=== PATIENT | male | born 1960 | race Hispanic/Latino ===

== ENCOUNTER 2016-05-22 14:00 | Inpatient (IN) | payer MEDICARE, OTHER ==
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
[2016-05-22] MEDS: Albuterol-Ipratrop 3 mg / 0.5 (3 ml) UD IH SCH ×3 (14:30→15:43)
--- NOTE | 2016-05-22 14:58 | RAD ---
HISTORY: cough COMPARISON: 05/11/2016 FINDINGS: LUNGS: No active pulmonary disease. PLEURA: Small pleural effusions CARDIOVASCULAR: Moderate to severe cardiomegaly. Mild vascular congestion OSSEOUS STRUCTURES: No significant abnormalities. VISUALIZED UPPER ABDOMEN: Normal. OTHER FINDINGS: None. IMPRESSION: Severe cardiomegaly. Mild vascular congestion
[2016-05-22 15:07] LABS: ADD MANUAL DIFF? NO
[2016-05-22 15:13] LABS: BASO # 0.03 K/mm3 (0.0-2.0); BASO % 0.3 % (0.0-3.0); EOS # 0.1 (0.0-0.7); EOS % 0.8 % (1.5-5.0); GRAN # 7.16 (1.4-6.5); GRAN % 76.1 % (50.0-68.0); HEMATOCRIT 40.4 % (42.0-52.0); LYMPH # 1.6 (1.2-3.4); LYMPH % 17.1 % (22.0-35.0); MEAN CELL VOLUME 87.8 fL (80.0-105.0); MEAN CORPUSCULAR HEMOGLOBIN 28.7 pg (25.0-35.0); MEAN CORPUSCULAR HGB CONC 32.7 g/dl (31.0-37.0); MEAN PLATELET VOLUME 10.6 fl (7.0-11.0); MONO # 0.5 (0.1-0.6); MONO % 5.7 % (1.0-6.0); PLATELET COUNT 186 10^3/uL (120.0-450.0); RED CELL DISTRIBUTION WIDTH 14.5 % (11.5-14.5); WHITE BLOOD COUNT 9.4 10^3/ul (4.5-11.0)
[2016-05-22 15:22] LABS: ALB/GLOB RATIO 1.3 (1.1-1.8); ALKALINE PHOSPHATASE 71 U/L (38-133); ALT/SGPT 21 U/L (7-56); AST/SGOT 15 U/L (15-59); BILIRUBIN,TOTAL 0.9 mg/dL (0.2-1.3); BLOOD UREA NITROGEN 12 mg/dL (7-21); CALCIUM 8.6 mg/dL (8.4-10.5); CARBON DIOXIDE 29 mmol/L (21-33); CHLORIDE 102 mmol/L (98-107); GFR AFRICAN-AMERICAN > 60; GLUCOSE,RANDOM 260 mg/dL (70-110); POTASSIUM 3.8 mmol/L (3.6-5.0); SODIUM 139 mmol/L (132-148); TOTAL PROTEIN 6.1 g/dL (5.8-8.3)
[2016-05-22 15:24] LABS: INR 1.24 (0.93-1.08); PARTIAL THROMBOPLASTIN TIME 25.2 Seconds (23.7-30.8)
[2016-05-22 15:33] LABS: TROPONIN I 0.06 ng/mL
[2016-05-22 15:58] LABS: URINE BILIRUBIN NEGATIVE (NEGATIVE); URINE BLOOD NEGATIVE (NEGATIVE); URINE GLUCOSE (UA) 100 mg/dL (NEGATIVE); URINE KETONE NEGATIVE (NEGATIVE); URINE LEUKOCYTE ESTERASE NEGATIVE Leu/uL (NEGATIVE); URINE PROTEIN 30 mg/dL (<30 mg/dL); URINE UROBILINOGEN 0.2 E.U./dL (<1 E.U./dL)
[2016-05-22 16:00] LABS: URINE APPEARANCE CLEAR (CLEAR); URINE COLOR YELLOW (YELLOW)
[2016-05-22 16:08] LABS: URINE BACTERIA FEW (NEG); URINE EPITHELIAL CELLS 0 - 2 /hpf (0-5); URINE RBC 0 - 2 /hpf (0-2); URINE WBC 0 - 2 /hpf (0-6)
--- NOTE | 2016-05-22 17:22 | CARD ---
APPROVED REPORT EKG Measurement Heart [id number] <Conclusion> Atrial fibrillation with rapid ventricular response with premature ventricular or aberrantly conducted complexes Low voltage QRS Nonspecific T wave abnormality, probably digitalis effect Abnormal ECG
[2016-05-22] MEDS ORDERED: metOLazone 5 MG TAB PO ONE (19:12)
[2016-05-22] MEDS: Insulin Reg-HIGH-Coverage SC SCH (21:37)
[2016-05-22 22:42] VITALS: BMI 45.6
[2016-05-22] MEDS ORDERED: Pneumococcal 23-Valent Vaccine IM ONE (22:42)
[2016-05-22] MEDS ORDERED: Influenza Vaccine 45 MCG/0.5 ml IM ONE (22:42)
--- NOTE | 2016-05-22 23:32 | CP.PCM.PN ---
Subjective - Date & Time of Evaluation Date of Evaluation: 05/22/16 Time of Evaluation: 23:32 - Subjective Subjective: Patient was seen because of his complaint of sob.Also had numbness in right hand fingers. Pulse ox was 99% on 3L/min. Has no other complaints. Has received 120 mg of lasix. No other complaints. Denies chest pain, sweating, nausea, palpitation. This 55 year old white male was admitted with Has PMH of CHF,COPD, morbid obesity,dyslipidemia,DM II ,diabetic neuropathy,HTN, atrial fibrillation. CXT:Pulm edema. Objective - Vital Signs/Intake and Output Vital Signs (last 24 hours): Temp Pulse Resp BP Pulse Ox 97.6 F 127 H 16 143/98 H 100 05/22/16 22:26 05/22/16 22:26 05/22/16 22:26 05/22/16 22:26 05/22/16 20:20 - Medications Medications: Current Medications Atorvastatin Calcium (Lipitor) 40 mg PO DIN WILTON Bupropion HCl (Wellbutrin) 75 mg PO BID WILTON Digoxin (Lanoxin) 0.125 mg PO 1400 WILTON Furosemide (Lasix) 80 mg IVP BID WILTON Glimepiride (Amaryl) 4 mg PO DAILY [facility] Insulin Detemir (Levemir) 50 unit SC BID [facility] Insulin Human Regular (Humulin R High) 0 units SC ACHS [facility] PRN Reason: Protocol Last Admin: 05/22/16 21:37 Dose: Not Given Lisinopril (Zestril) 20 mg PO DAILY [facility] Lorazepam (Ativan) 2 mg PO AMHS [facility] PRN Reason: Protocol Last Admin: 05/22/16 22:52 Dose: 2 mg Metoprolol Tartrate (Lopressor) 25 mg PO BID [facility] Last Admin: 05/22/16 19:55 Dose: 25 mg Montelukast Sodium (Singulair) 10 mg PO DAILY W[facility] Trazodone HCl (Desyrel) 200 mg PO HS [facility] Last Admin: 05/22/16 22:53 Dose: 200 mg Verapamil HCl (Calan Tab) 160 mg PO TID WIL[facility] Warfarin Sodium (Coumadin) 7.5 mg PO 1800 [facility] PRN Reason: Protocol - Labs Labs: PT 13.4 Seconds (9.9-11.8) H 05/22/16 15:00 INR 1.24 (0.93-1.08) H 05/22/16 15:00 APTT 25.2 Seconds (23.7-30.8) 05/22/16 15:00 - Constitutional Appears: Well, No Acute Distress - Head Exam Head Exam: ATRAUMATIC, NORMAL INSPECTION - Eye Exam Eye Exam: Normal appearance Pupil Exam: NORMAL ACCOMODATION - ENT Exam ENT Exam: Mucous Membranes Moist - Neck Exam Neck Exam: Normal Inspection. absent: Thyromegaly - Respiratory Exam Respiratory Exam: Rales (Bilateral basal scattered.), Wheezes (+), NORMAL BREATHING PATTERN - Cardiovascular Exam Cardiovascular Exam: REGULAR RHYTHM. absent: JVD - GI/Abdominal Exam GI & Abdominal Exam: absent: Distended - Rectal Exam Rectal Exam: Deferred - Extremities Exam Extremities Exam: Normal Inspection. absent: Pedal Edema - Back Exam Back Exam: NORMAL INSPECTION - Neurological Exam Neurological Exam: Alert, Oriented x3 - Psychiatric Exam Psychiatric exam: Normal Affect, Normal Mood - Skin Skin Exam: Normal Color Assessment and Plan - Assessment and Plan (Free Text) Assessment: A/P: Dyspnea. CHF. COPD. HTN. Morbid obesity. DM II. Lasix 80 mg IV x 1. Monitor.
[2016-05-23] MEDS ORDERED: Morphine 4 mg/ml ISec IVP STA (00:08)
--- NOTE | 2016-05-23 06:20 | HP ---
CHIEF COMPLAINT AND HISTORY OF PRESENT ILLNESS: This is a 55-year-old male who is coming into the hospital with complaints of shortness of breath. Audrey painter was recently discharged from the hospital about a week and a half ago. He has a history of CHF, [place] PD. He is morbidly obese. He has atrial fibrillation that at times is not well controlled. He does have a history of noncompliance. He said the shortness of breath is ongoing. He does have palpitat ions. He says he has been compliant with his medications. He denies any fevers or chills. No nause a, no vomiting, no chest pain, no abdominal pain, no back pain, no dysuria or frequency. REVIEW OF SYSTEMS: All other review of symptoms are within normal limits. He mostly complains about chest pain, shortne ss of breath, especially on exertion. ALLERGIES: BERRIES. HOME MEDICATIONS: He is on digoxin, Singulair, Levemir, Zestril, Advil, Dulera. PAST MEDICAL HISTORY: 1. CHF secondary to diastolic dysfunction. 2. Dyslipidemia. 3. Chronic obstructive pulmonary disease. 4. Hypertension. 5. Diabetes type 2. 6. Diabetic neuropathy. 7. Atrial fibrillation, on anticoagulation. 8. Diabetic neuropathy. PAST SURGICAL HISTORY: Cardiac catheterization, no stents. FAMILY HISTORY: Father of liver disease at 66, mother at 42. SOCIAL HISTORY: He quit smoking about 4 years ago. He was smoking for 20 years. He denies alcohol or substance abus e. PHYSICAL EXAMINATION: VITAL SIGNS: He has a temperature of 97.6, pulse is 120, blood pressure is 114/75, respirations 16, O2 saturation 97%. Height is 5 feet 8 inches, weight is 300 pounds, BMI is 45.6. GENERAL: Patient lying in bed, flat, and in no apparent distress. HEAD AND NECK EXAM: Atraumatic, normocephalic. Conjunctivae are pink. Throat clear and mouth with moist mucosa. Oropharynx benign. EYES: Extraocular movements are intact. PERRLA. NECK: Supple. No JVD, thyromegaly, or adenopathy. No bruits. HEART: S1, S2. Tachycardic. No murmurs or rubs. LUNGS: Clear to auscultation bilaterally. No wheezing rales or rhonchi appreciated. No retractions on exam. ABDOMEN: Soft, nontender, nondistended. Bowel sounds are positive in all quadrants. No rebound. No hepatosplenomegaly. EXTREMITIES: No cyanosis, clubbing. 1+ edema. NEURO: No facial asymmetry, tongue is midline, no uvula deviation. Power is 5/5 in upper extremity and 5/5 in lower extremity. Sensation is normal in upper extremity and lower extremity. PSYCH: Awake, alert, oriented x3. No anxiety or depression symptoms. Good insight. Normal affect . : No CVA tenderness VASCULAR: 2+ pulses in carotid and pedal pulses. SKIN: No erythema or abnormal nodules noted. SPINE: Normal curvature. LYMPHADENOPATHY: No anterior cervical or posterior cervical adenopathy. No inguinal adenopathy. LABORATORY DATA: White count of 9.4, hemoglobin 13.2, platelet count is 186. INR is 1.24. Chemistry shows a sodium o f 139, potassium 3.8, creatinine is 0.8. Urine shows glucose is 100, blood is negative, nitrites are negative. Chest x-ray done shows severe cardiomegaly with mild vascular congestion. EKG shows atrial fibrillation with rapid rate of 122, QTC is 473 with low voltage QRS. ASSESSMENT: 1. Shortness of breath. 2. Atrial fibrillation with rapid rate, on anticoagulation, subtherapeutic. 3. Congestive heart failure secondary to diastolic dysfunction, acute. 4. Chronic obstructive pulmonary disease, stable. 5. Dyslipidemia. 6. Hypertension. 7. Diabetes type 2. 8. Diabetic neuropathy. 9. Obesity with a body mass index of 45. PLAN: The patient is going to be admitted to the hospital. He has an elevated heart rate. The patient lauri l need to be on his verapamil. I will get Dr. Rajan to evaluate as well as Dr. Godinez. The patient i s on Coumadin and I will put him on his Coumadin dosage. He is on digoxin for his atrial fibrillatio n. The patient is on Lipitor for dyslipidemia. I will give him a dose of metolazone for diuresis. He is on Lasix for his diuresis as well. He is on Amaryl. I will place him on diabetic diet. He is going to be on fingersticks with coverage high dose insulin. He is going to be on Levemir. I will place him on 50 units of his Levemir. He will need to be admitted to telemetry for better heart rate control and for his acute CHF. Axel Villagomez MD cc: [id number] TT: 05/23/2016 06:19:48 hn
[2016-05-23] MEDS ORDERED: metOLazone 5 MG TAB PO ONE (06:25)
[2016-05-23 07:27] LABS: HEMATOCRIT 41.2 % (42.0-52.0); MEAN CORPUSCULAR HEMOGLOBIN 28.2 pg (25.0-35.0); MEAN PLATELET VOLUME 11.2 fl (7.0-11.0); RED CELL DISTRIBUTION WIDTH 14.4 % (11.5-14.5); WHITE BLOOD COUNT 8.9 10^3/ul (4.5-11.0)
[2016-05-23 07:35] LABS: INR 1.22 (0.93-1.08)
[2016-05-23 07:37] LABS: ALB/GLOB RATIO 1.3 (1.1-1.8); ALKALINE PHOSPHATASE 74 U/L (38-133); ALT/SGPT 25 U/L (7-56); AST/SGOT 19 U/L (15-59); BILIRUBIN,TOTAL 0.7 mg/dL (0.2-1.3); BLOOD UREA NITROGEN 14 mg/dL (7-21); CALCIUM 8.7 mg/dL (8.4-10.5); CARBON DIOXIDE 30 mmol/L (21-33); CHLORIDE 98 mmol/L (95-110); GFR AFRICAN-AMERICAN > 60; GLUCOSE,RANDOM 239 mg/dL (70-110); SODIUM 140 mmol/L (132-148); TOTAL PROTEIN 6.4 g/dL (5.8-8.3)
[2016-05-23] MEDS: Insulin Reg-HIGH-Coverage SC SCH ×3 (08:07→17:59)
--- NOTE | 2016-05-23 09:41 | CON ---
DATE: 05/22/2016 PULMONARY CONSULT REFERRING PHYSICIAN: Axel Villagomez MD. REASON FOR CONSULT: Shortness of breath, leg swelling, and has sleep apnea syndrome. HISTORY OF PRESENT ILLNESS: This is a 55-year-old gentleman with known severe cardiomyopathy, paroxy smal atrial fibrillation with rapid ventricular response, has a sleep apnea syndrome, noncompliant wi th CPAP and follow up, also has chronic lung disease, diabetes, hyperlipidemia, presented to the [facility] with cannot breathe tachycardia, and increased leg swelling. There is no hemoptysis, no h ematemesis, no hematuria, no diarrhea reported. PAST MEDICAL HISTORY: Chronic obstructive lung disease, cardiomyopathy, paroxysmal atrial fibrillati on with rapid ventricular response, obesity, sleep apnea syndrome, diabetes, hypertension, hyperlipid emia, also had gastric bypass surgery in the remote past. FAMILY HISTORY: No significant cardiopulmonary disease reported. SOCIAL HISTORY: Former smoker. Denies any alcohol use. ALLERGIES: BERRIES, DEVELOPS RASH. MEDICATIONS: At present, he is on the Amaryl 4 mg daily, Ativan 2 mg a.m. and at bedtime, verapamil 160 mg 3 times a day, Coumadin 7.5 mg daily, trazodone 200 mg at bedtime, insulin coverage, digoxin 0 .125 mg daily, Lasix 40 mg IV daily, Levemir 50 units subQ twice a day, Lipitor 40 mg daily, metoprol ol tartrate 25 mg twice a day, Singulair 10 mg daily, Wellbutrin 75 mg twice a day, Zestril 20 mg suresh ly. REVIEW OF SYSTEMS: No headache, no rhinitis. Has cough, shortness of breath. No chest pain. Has o rthopnea. No nausea, no vomiting, no diarrhea. Does have leg swelling. PHYSICAL EXAMINATION: GENERAL: Lying in the bed, mild distress secondary to shortness of breath. VITAL SIGNS: Temp is 98. Heart rate is 123. Respiratory rate is 20, blood pressure 143/98, pulse ox ____ nasal cannula. HEENT: Moist mucous membranes. Small oral cavity. Crowded airway. NECK: Supple. No JVD. LUNGS: Crackles and prolonged expiratory phase with some wheezing. HEART: S1, S2. ABDOMEN: Soft, nontender, nondistended. EXTREMITIES: Significant edema. NEUROLOGIC: Awake, alert, follows simple commands. LABORATORY DATA: Show hemoglobin 13.2, hematocrit 40.4, WBC 9.4. Platelet is 186. INR 1.24. PTT i s 25. Sodium 139, potassium 3.8, chloride 102, bicarbonate 29. BUN 12, creatinine 0.8. Glucose 260 , calcium 8.6, total bilirubin 0.9, AST 15, ALT 21. Alk phos is 71. Troponin 0.06. Albumin is 3.4. Chest x-ray shows severe cardiomegaly, mild vascular congestion. IMPRESSION AND PLAN: Cardiomyopathy with atrial fibrillation and rapid ventricular response, obstruc tive lung disease, obstructive sleep apnea syndrome, diabetes, hypertension, obesity, noncompliant wi th the followup. I agree with Dr. Axel Villagomez the present management. Increase Lasix to 80 mg twice a day. Parrish nue bronchodilator. We will encourage him to use CPAP placed on 8 cm with 35% oxygen. Anticoagulati on, gastric prophylaxis. May need to repeat a sleep study. May benefit from ____ night study with a pnea and CPAP titration. We will follow with you. Tia Godinez MD cc: [id number] TT: 05/23/2016 09:40:59 Confirmation # [id number] Dictation # [id number] carla
--- NOTE | 2016-05-23 10:38 | PN ---
DATE: 05/23/2016 SUBJECTIVE: The patient has no complaints of any headaches or dizziness. He does continue to have e pisodes of palpitations. PHYSICAL EXAMINATION: VITAL SIGNS: Temperature is 97.9, pulse of 98, blood pressure 106/64, respirations 18. GENERAL: The patient comfortable, in no acute distress. HEENT: Anicteric sclerae. Moist mucosa. NECK: No JVD or adenopathy. CARDIAC: S1/S2. No murmurs. No rubs. Regular. RESPIRATORY: Clear to auscultation bilaterally. No wheezes, rales, or rhonchi. Good air entry. ABDOMEN: Bowel sounds are positive, soft, nontender, and nondistended. EXTREMITIES: Has 1+ edema. ASSESSMENT: 1. Atrial fibrillation with rapid rate. 2. Acute congestive heart failure secondary to diastolic dysfunction. 3. Chronic obstructive pulmonary disease, stable. 4. Dyslipidemia. 5. Hypertension. 6. Diabetes type 2. 7. Diabetic neuropathy. 8. Obesity with a body mass index of 45. PLAN: The patient is subtherapeutic on his anticoagulation. The patient has a history of noncomplia nce. He is on Coumadin. He is on verapamil for his atrial fibrillation. He is going to continue wi th Ativan for his anxiety. He is receiving digoxin for his atrial fibrillation. He is on Lasix twic e a day. Dr. Godinez is following the patient. I gave him a dose of metolazone yesterday. He is go ing to be on Amaryl for his diabetes. He is on lisinopril for his hypertension. I will give another dose on metolazone today. The patient will need intervention regarding his atrial fibrillation that has not been well controlled over the past few months. He is on a CPAP machine. Axel Villagomez MD cc: [id number] TT: 05/23/2016 10:38:18 Confirmation # [id number] Dictation # [id number]
[2016-05-23] MEDS: Insulin Detemir 100 units/ml Vial (Levemir) SC SCH ×2 (10:46→18:00)
[2016-05-23] MEDS ORDERED: Digoxin 500 mcg/2ml (0.5 mg/2ml) Inj IVP ONE ×2 (11:45→17:00)
[2016-05-23] MEDS ORDERED: Magnesium Sulfate 2 GM in Sodium Chloride 0.9% 100 ML IVPB ONE (11:47)
[2016-05-23] MEDS: Enoxaparin 120 mg Syringe SC SCH ×2 (12:19→22:59)
[2016-05-23] MEDS: Magnesium Oxide 400 mg Tab UD PO SCH ×2 (12:19→18:01)
[2016-05-23] MEDS ORDERED: Digoxin 125 mcg (0.125 mg) Tab PO SCH (14:00)
--- NOTE | 2016-05-23 19:15 | CON ---
DATE: 05/23/2016 SERVICE: Cardiology. REASON FOR CONSULTATION AND FOLLOWUP: Rule out CHF, AFib with rapid ventricular rate, COPD, morbid o besity and cardiac evaluation. BRIEF CLINICAL HISTORY: This is a 55-year-old morbidly obese male with past medical history signific ant for congestive heart failure, hypertension, diabetes, hyperlipidemia, chronic atrial fibrillation , status post cardiac catheterization twice, nonobstructive coronary artery disease, recently dischar ged, readmitted yesterday because of feeling short of breath when walking a block and trouble with br eathing. Unable to lay flat and feels choking. History of atrial fibrillation, on Pradaxa, now on C oumadin. PAST MEDICAL HISTORY: Significant for mitral regurgitation, tricuspid regurgitation, nonobstructive coronary artery disease, nonischemic cardiomyopathy, status post cardiac catheterization 8 years ago and 2 years ago, morbid obesity, paroxysmal atrial fibrillation, hypertension, noncompliance with the medication, active tobacco abuse, active alcohol abuse. Previous cardiac workup as follows: The patient had a cardiac catheterization 3 times, most likely [place], 2 times done here in the [facility] 8 years ago and then most recently in [place] 11/06/19 15, less than 2 years ago that revealed normal coronaries, preserved LV function, ejection fraction 5 5%, ADP was in the range of 30%-40%, dated 11/05/2014, history of hypertension, history of hypertensiv e heart disease, medical treatment recommended. Emphasis made on weight reduction and compliance wit h the medication. History of paroxysmal atrial fibrillation, on Pradaxa, but switched over to Coumad in because of the cost constraints. Last echo, patient had echocardiography on 06/10/2015 that shows normal size, concentric LVH, ejection fraction 45%, global hypokinesis, mitral regurgitation, tricusp id regurg, RV systolic pressure 20. SOCIAL HISTORY: Heavy tobacco abuse, heavy alcohol abuse. CURRENT MEDICATIONS: The patient is taking at home trazodone, Wellbutrin, Coumadin 7.5 mg, verapamil 80 mg, potassium ____ metoprolol, metformin, lisinopril, lorazepam, ibuprofen, digoxin. ALLERGIES: WILD BERRIES. REVIEW OF SYSTEMS: As per HPI. PHYSICAL EXAMINATION: VITAL SIGNS: Temperature afebrile, heart rate 180, AFib, blood pressure 108/64. HEENT: PERRLA. Extraocular muscles intact. NECK: Supple. No carotid bruits. No thyromegaly. CHEST: Clear to auscultation. HEART: S1, S2 regular. ABDOMEN: Soft. EXTREMITIES: Clubbing and cyanosis negative. LABORATORY DATA: Blood workup as follows: WBC 8.9, hemoglobin ____, hematocrit 41.2, platelet count 196. Chemistry shows sodium 140, potassium 4, chloride 90, carbon dioxide 30, anion gap of 16, BUN 14, creatinine 1.0. Magnesium 1.5. Total protein 6.4, albumin 3.7, albumin/globulin ratio 1.3. BNP 2180. IMPRESSION: Acute decompensated congestive heart failure secondary to systolic dysfunction, morbid o besity, body mass 43 kg, height of the patient 5 feet 8 inches, weight of the patient 285 pounds, anderson betes, hypertension, hyperlipidemia, normal coronaries, status post cardiac catheterization twice, 8 years ago and most recent cardiac catheterization less than 2 years ago, that is 11/05/2014 that revea led normal coronaries, preserved left ventricular function, ejection fraction 55%, hypertension, diab etes, hyperlipidemia, chronic atrial fibrillation, on Pradaxa switched to Coumadin now, noncompliance , tobacco abuse, alcohol abuse, cardiomyopathy, most recent echo dated 06/10/2015, ejection fraction 4 5%, global hypokinesis, mitral regurgitation, tricuspid regurgitation, right ventricular systolic pre ssure 20. Most recent MUGA scan done on 04/18/2016 that shows ejection fraction suboptimal study, marilu ble to calculate ____ 30%. RECOMMENDATION: The patient will get the benefit from ablation from AFib. Will discuss with Dr. Jesus wadsworth. Discussed with the patient. We will start Lovenox. The patient is very noncompliant also. Alcohol abuse, tobacco abuse. Subtherapeutic INR is 1.22, so will give Lovenox as a bridge, try to o ptimize medical treatment. Once the patient is stable, will discharge and is scheduled for radiofreq uency ablation for atrial fibrillation with Dr. Bonilla at [facility]. In the interim, continue digoxin and verapamil to control the heart rate and we will follow. Will give an extra dose of digo jyoti, 2 doses, to control the heart rate. Thank you, Dr. Villagomez, for providing the opportunity in taking care of this patient. Tia Rajan MD cc: [id number] TT: 05/23/2016 19:14:45 Confirmation # [id number] Dictation # [id number] rn
--- NOTE | 2016-05-23 22:03 | PN ---
DATE: 05/23/2016 REFERRING PHYSICIAN: Dr. Axel Villagomez. SUBJECTIVE: He is sitting up in a chair, feels better, decreased shortness of breath, decreased coug h. No nausea, no vomiting, no diarrhea. Still has significant leg swelling. OBJECTIVE: GENERAL: In no acute distress. VITAL SIGNS: Temperature is 98, heart rate is 70, respiratory rate is 20, blood pressure 100/70, pul se ox 100% on 2 liter nasal cannula. HEENT: Moist mucous membranes. Crowded airway. Mallampati score is 4. NECK: Supple. No JVD. LUNGS: Has decreased breath sounds at the bases with crackles. HEART: S1, S2. ABDOMEN: Soft, nontender. No organomegaly. EXTREMITIES: Still has edema, but decreased more than yesterday. NEUROLOGIC: Awake, alert, follows simple commands. MEDICATIONS: He is on Amaryl 4 mg daily, Ativan 2 mg a.m. and at bedtime, Calan 160 mg 3 times a day , Coumadin 7.5 mg given today, trazodone 200 mg at bedtime, insulin coverage, digoxin 0.125 mg daily, Lasix 80 mg twice a day, Levemir 50 units subQ twice a day, Lipitor 40 mg daily, metoprolol tartrate 25 mg twice a day, Lovenox 120 mg subQ twice a day, Singulair 10 mg daily, Wellbutrin 75 mg twice a day, Zestril 20 mg daily. LABORATORY DATA: Shows hemoglobin 13.2, hematocrit 41.2, WBC 8.9, platelet is 196. INR 1.2. Sodium 140, potassium 4.0, chloride 98, bicarbonate 30, BUN 14, creatinine 1.0, glucose 239, calcium is 8.7 , magnesium is 1.5, AST 19, ALT 25, alkaline phosphatase is 74, albumin is 3.7. IMPRESSION AND PLAN: Cardiomyopathy with recurrent atrial fibrillation with rapid ventricular respon se, obstructive lung disease, obstructive sleep apnea syndrome, diabetes, hypertension, obesity, nonc ompliant with followup and fluid intake. Improved since yesterday. Continue high dose of diuretics, afterload reduces, antiarrhythmic, anticoagulation, inhaled bronchodilator. Encourage CPAP use. El evate his lower extremities. Follow up electrolytes in the morning. Thank you and will follow with you. Tia Godinez MD cc: [id number] TT: 05/23/2016 22:02:38 Confirmation # [id number] Dictation # [id number] dn
[2016-05-24 07:55] LABS: ALB/GLOB RATIO 1.2 (1.1-1.8); BILIRUBIN,TOTAL 0.6 mg/dL (0.2-1.3); CALCIUM 9.1 mg/dL (8.4-10.5); INR 1.3 (0.93-1.08); POTASSIUM 3.7 mmol/L (3.6-5.0)
[2016-05-24] MEDS: Insulin Reg-HIGH-Coverage SC SCH ×4 (08:16→22:00)
[2016-05-24] MEDS: Magnesium Oxide 400 mg Tab UD PO SCH ×2 (09:24→17:44)
[2016-05-24] MEDS: Insulin Detemir 100 units/ml Vial (Levemir) SC SCH ×2 (09:34→17:48)
--- NOTE | 2016-05-24 09:55 | PN ---
DATE: 05/24/2016 DATE: 05/24/2016 SUBJECTIVE: The patient has no complaints of any chest pain, no shortness of breath, no headaches. He says he does get shortness of breath with exertion still. PHYSICAL EXAMINATION: VITAL SIGNS: Temperature is 98.4. Pulse is 70. Blood pressure is 120/54, respirations 20. GENERAL: The patient is comfortable, in no acute distress. HEENT: Anicteric sclerae. Moist mucosa. NECK: No JVD or adenopathy. CARDIAC: S1/S2. No murmurs. No rubs. Regular. RESPIRATORY: Clear to auscultation bilaterally. No wheezes, rales, or rhonchi. Good air entry. ABDOMEN: Bowel sounds are positive, soft, nontender, and nondistended. EXTREMITIES: Lower extremity 1+ edema. LABORATORY DATA: White count of 8.9, hemoglobin 13.2. Creatinine is 1.0. ASSESSMENT: 1. Atrial fibrillation with rapid rate, now resolved. 2. Acute congestive heart failure secondary to diastolic dysfunction. 3. Dyslipidemia. 4. Chronic obstructive pulmonary disease, stable. 5. Hypertension. 6. Diabetic neuropathy. 7. Obesity with a body mass index of 43. 8. Hypomagnesemia. PLAN: The patient's heart rate is better controlled. He does have episodes of rapid AFib. The farida ent is being followed by cardiology, Dr. Rajan. The patient may need EPS study. He is on Lovenox, bu t he is subtherapeutic. He is on his CPAP machine. He has a PT/INR that is pending this morning. T he patient is on Lovenox while he is subtherapeutic. He is on ____. I gave him a dose of metolazone for his lower extremity edema. He is on Amaryl for his diabetes. He is receiving Levemir for his d iabetes. His fingersticks are under control. His magnesium is low. He was given magnesium replacem ent yesterday. He is on lisinopril for his hypertension. We will continue to follow closely. Axel Villagomez MD cc: [id number] TT: 05/24/2016 09:17:58 Confirmation # [id number] Dictation # [id number] jn 05/24/2016 08:54:39
[2016-05-24] MEDS ORDERED: metOLazone 5 MG TAB PO ONE (10:00)
--- NOTE | 2016-05-24 10:27 | PN ---
DATE: 05/24/2016 REASON FOR CONSULTATION: Shortness of breath, CHF, AFib with rapid rate, COPD, morbid obesity, cardi ac evaluation. BRIEF CLINICAL HISTORY: A 55-year-old morbidly obese male with past medical history significant for congestive heart failure, hypertension, diabetes, hyperlipidemia, chronic atrial fibrillation, status post cardiac catheterization twice, nonobstructive coronary artery disease. Recently discharged, re admitted because of shortness of breath. History of chronic atrial fibrillation, was on Pradaxa, now on Coumadin. Yesterday, patient's heart rate was 110 and given 2 doses of Lasix, now heart rate is in the 70s. Denies any chest pain, shortness of breath improved a little bit. Denies any palpitatio n. Last catheterization less than 2 years ago, normal coronaries, ejection fraction 50%. Last echo 06/10/2015, concentric LVH. Ejection fraction 45%, global hypokinesis, mitral regurgitation, tricuspi d regurgitation, RV systolic pressure 20. PHYSICAL EXAMINATION: VITAL SIGNS: Temperature afebrile, heart rate 70, blood pressure 124/54. HEENT: PERRLA. Extraocular muscles intact. NECK: Supple. No carotid bruits. No thyromegaly. CHEST: Clear to auscultation. HEART: S1, S2 regular. ABDOMEN: Soft. EXTREMITIES: Clubbing and cyanosis negative. LABORATORY DATA: Blood workup as follows: WBC 8.9, hemoglobin , hematocrit 41.2, platelet coun t 196. Chemistry shows sodium 140, potassium 3.7, chloride 95, carbon dioxide 33, anion gap of 16, B UN 23, creatinine 1.6. IMPRESSION: Decompensated congestive heart failure, acute on chronic systolic dysfunction, atrial fi brillation, morbid obesity, body mass index 289, diabetes, hypertension, hyperlipidemia, chronic obst ructive pulmonary disease, status post cardiac catheterization twice, nonobstructive coronary artery disease. Last catheterization 2 years ago and it was normal coronaries, dated 11/05/2014, less than 2 years ago, preserved left ventricular function, history of chronic atrial fibrillation, was on Mike xa, now on Coumadin. INR subtherapeutic, probably some element of noncompliance also. History of ch ronic obstructive pulmonary disease, morbid obesity. Last echo shows ejection fraction 45% dated 05/18. RECOMMENDATION: Continue Lovenox as a bridge. Continue Coumadin until the INR gets therapeutic. Co ntinue verapamil. We will send the patient to [facility] for radiofrequency ablation with Dr. Bonilla. Discussed with the patient and upon discharge, will send as outpatient. Currently, the patient is st able. Discussed with Dr. Villagomez, possible discharge in a day or 2. Tia Rajan MD cc: [id number] TT: 05/24/2016 10:27:12 Confirmation # [id number] Dictation # [id number]
[2016-05-24] MEDS: Enoxaparin 120 mg Syringe SC SCH (12:30)
--- NOTE | 2016-05-24 13:57 | PN ---
DATE: 05/24/2016 REFERRING PHYSICIAN: Dr. Axel Villagomez SUBJECTIVE: He is sitting side of the bed, feels better, feels weak, decreased leg swelling. Breath ing is improved. No nausea, no vomiting, no diarrhea. OBJECTIVE: GENERAL: No acute distress. VITAL SIGNS: Temp is 98, heart rate is 72, respiratory rate is 20, blood pressure 94/71, pulse ox 96 % on 2 liter nasal cannula. HEENT: Moist mucous membrane. Crowded airway. NECK: Supple. No JVD. LUNGS: Has decreased breath sounds at the bases. HEART: S1 and S2. ABDOMEN: Soft, nontender, nondistended. EXTREMITIES: Does have edema. NEUROLOGIC: Awake, alert, follows simple commands. MEDICATIONS: He is on Amaryl 4 mg daily, Ativan 2 mg a.m. and at bedtime, Calan 160 mg 3 times a day , Coumadin 10 mg daily, trazodone 200 mg at bedtime, digoxin 0.125 mg daily, Lasix 40 mg twice a day, Lipitor 40 mg daily, metoprolol tartrate 25 mg twice a day, Lovenox 120 mg subQ twice a day, mag oxi de 400 mg twice a day, Singulair 10 mg daily, Wellbutrin 25 mg twice a day, Zestril 20 mg daily. LABORATORY DATA: Reviewed. INR 1.30. Sodium 140, potassium 3.7, chloride 95, bicarbonate is 33, BU N 23, creatinine 1.6, glucose 63, calcium 9.1, magnesium 2.0, AST 25, ALT 21, alkaline phosphatase is 79, albumin is 3.8. IMPRESSION AND PLAN: Cardiomyopathy with decreased left ventricular function, atrial fibrillation, c hronic obstructive lung disease, obstructive sleep apnea syndrome, diabetes, hypertension, obesity, n oncompliant with followup and medication. 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 Encourage BiPAP use. Follow up electrolytes. Fall precautions. Thank you and we will follow with you. Tia Godinez MD cc: [id number] TT: 05/24/2016 13:56:32 Confirmation # [id number] Dictation # [id number] en
[2016-05-24] MEDS ORDERED: Digoxin 125 mcg (0.125 mg) Tab PO SCH (14:00)
[2016-05-24] MEDS: Albuterol-Ipratrop 3 mg / 0.5 (3 ml) UD IH PRN ×2 (15:46→20:14)
[2016-05-24] MEDS ORDERED: Sodium Chloride 0.9% 500 ML IV STA (16:14)
[2016-05-24] MEDS ORDERED: POLYETHYLENE GLYCOL 3350 17 GM/Dose PACKET PO STA (20:51)
[2016-05-24] MEDS ORDERED: Simethicone 80 mg Chewtab PO STA (20:51)
--- NOTE | 2016-05-24 20:53 | CP.PCM.PN ---
Subjective - Date & Time of Evaluation Date of Evaluation: 05/24/16 Time of Evaluation: 20:52 - Subjective Subjective: Nurse calls to see patient who is having shortness of breath. Patient was seen at bedside.He is sitting in chair, comfortable. Has multiple problems.States that he can not take breath in. He has numbness in both hands.He sees yellow in front of both eyes. Has some dizziness. Had no bowel movement for 4 days. He feels lot of gas in the stomach.At the end he stated that he has some head ache and demanded something for head ache. Has some nausea. Denies chest pain,sweating, palpitation, cough, phlegm. BP is 102/79,Pulse ox 98% on 2L/NC. Finger stick I ordered now -130 mg%. Medical record was reviewed. Objective - Vital Signs/Intake and Output Vital Signs (last 24 hours): Temp Pulse Resp BP Pulse Ox 97.7 F 75 20 107/56 L 98 05/24/16 17:27 05/24/16 18:00 05/24/16 17:27 05/24/16 17:46 05/24/16 17:27 - Medications Medications: Current Medications Albuterol/Ipratropium (Duoneb 3 Mg/0.5 Mg (3 Ml) Ud) 3 ml IH [id number] PRN PRN Reason: Shortness of Breath Last Admin: 05/24/16 20:14 Dose: 3 ml Atorvastatin Calcium (Lipitor) 40 mg PO DIN [facility] Last Admin: 05/24/16 17:44 Dose: 40 mg Bupropion HCl (Wellbutrin) 75 mg PO BID [facility] Last Admin: 05/24/16 17:44 Dose: 75 mg Digoxin (Lanoxin) 0.125 mg PO 1400 [facility] Last Admin: 05/24/16 13:30 Dose: 0.125 mg Enoxaparin Sodium (Lovenox) 120 mg SC Q12H [facility] PRN Reason: Protocol Stop: 05/24/16 23:59 Last Admin: 05/24/16 12:30 Dose: 120 mg Glimepiride (Amaryl) 4 mg PO DAILY [facility] Last Admin: 05/24/16 09:25 Dose: 4 mg Insulin Detemir (Levemir) 50 unit SC BID [facility] Last Admin: 05/24/16 17:48 Dose: 50 unit Insulin Human Regular (Humulin R High) 0 units SC ACHS [facility] PRN Reason: Protocol Last Admin: 05/24/16 17:27 Dose: Not Given Lisinopril (Zestril) 20 mg PO DAILY [facility] Last Admin: 05/24/16 09:28 Dose: 20 mg Lorazepam (Ativan) 2 mg PO AMHS [facility] PRN Reason: Protocol Last Admin: 05/24/16 09:24 Dose: 2 mg Magnesium Oxide (Mag-Ox) 400 mg PO BID [facility] Stop: 05/24/16 23:59 Last Admin: 05/24/16 17:44 Dose: 400 mg Metoprolol Tartrate (Lopressor) 25 mg PO BID [facility] Last Admin: 05/24/16 17:46 Dose: 25 mg Montelukast Sodium (Singulair) 10 mg PO DAILY [facility] Last Admin: 05/24/16 09:24 Dose: 10 mg Trazodone HCl (Desyrel) 200 mg PO HS [facility] Last Admin: 05/23/16 22:26 Dose: 200 mg Verapamil HCl (Calan Tab) 160 mg PO TID [facility] Last Admin: 05/24/16 17:44 Dose: 160 mg Warfarin Sodium (Coumadin) 10 mg PO 1800 [facility] PRN Reason: Protocol Last Admin: 05/24/16 17:44 Dose: 10 mg - Labs Labs: 05/23/16 06:30 05/24/16 07:00 PT 14.0 Seconds (9.9-11.8) H 05/24/16 07:00 INR 1.30 (0.93-1.08) H 05/24/16 07:00 APTT 25.2 Seconds (23.7-30.8) 05/22/16 15:00 - Constitutional Appears: Well, No Acute Distress - Head Exam Head Exam: ATRAUMATIC, NORMAL INSPECTION, NORMOCEPHALIC - Eye Exam Eye Exam: Normal appearance - ENT Exam ENT Exam: Mucous Membranes Moist - Neck Exam Neck Exam: Normal Inspection - Respiratory Exam Respiratory Exam: Rales (Basal scattered rales present.), NORMAL BREATHING PATTERN - Cardiovascular Exam Cardiovascular Exam: REGULAR RHYTHM. absent: JVD - GI/Abdominal Exam GI & Abdominal Exam: absent: Distended - Rectal Exam Rectal Exam: Deferred - Back Exam Back Exam: NORMAL INSPECTION - Neurological Exam Neurological Exam: Alert, Oriented x3 - Psychiatric Exam Psychiatric exam: Normal Affect, Normal Mood - Skin Skin Exam: Normal Color Assessment and Plan - Assessment and Plan (Free Text) Assessment: A/P: Multiple symptoms. Dyspnea. CHF. Obesity. Head ache. Neuropathic pain. Constipation. Flatulence. Tylenol. Simethicone. Lasix. Miralax. Finger sitck blood sugar stat.
[2016-05-25 05:41] LABS: ARTERIAL BLOOD GAS HCO3 14.8 mmol/L (21-28); ARTERIAL BLOOD GAS O2 CAPACITY 20.9 mL/dl (16-24); ARTERIAL BLOOD GAS O2 CONTENT 20.3 ML/dl (15-23); CARBOXYHEMOGLOBIN 1.7 % (0.5-1.5); HHB 2.8 % (0-5); METHEMOGLOBIN 0.6 % (0.0-3.0)
[2016-05-25] MEDS ORDERED: Sodium Chloride 0.9% 500 ML IV STA ×3 (06:23→15:34)
--- NOTE | 2016-05-25 08:58 | RAD ---
HISTORY: Hx chf, restless COMPARISON: 05/11/2016 FINDINGS: LUNGS: Technically limited examination. No infiltrate identified. PLEURA: Mild nonspecific elevation of right hemidiaphragm. Possible small right pleural effusion. No evidence of left pleural effusion. No pneumothorax. CARDIOVASCULAR: Cardiomegaly. Mild congestive change. OSSEOUS STRUCTURES: No significant abnormalities. VISUALIZED UPPER ABDOMEN: Normal. OTHER FINDINGS: None. IMPRESSION: Possible small right pleural effusion. No infiltrate. Mild congestive change. Cardiomegaly. Limited examination.
[2016-05-25 09:19] LABS: ALB/GLOB RATIO 1.3 (1.1-1.8); BILIRUBIN,TOTAL 0.8 mg/dL (0.2-1.3); CALCIUM 8.6 mg/dL (8.4-10.5); MAGNESIUM 2.1 mg/dL (1.7-2.2); PHOSPHOROUS 6.7 mg/dL (2.5-4.5); POTASSIUM 5.3 mmol/L (3.6-5.0); TOTAL PROTEIN 6.1 g/dL (5.8-8.3)
[2016-05-25 09:30] LABS: TROPONIN I 0.1 ng/mL
[2016-05-25] MEDS ORDERED: Sodium Chloride 0.9% 1,000 ML IV SCH (10:00)
--- NOTE | 2016-05-25 10:15 | DS ---
This is a 55-year-old male who had come into the hospital with atrial fibrillation with rapid rate. He also had acute CHF secondary to diastolic dysfunction. He was diuresed aggressively and had impro vement of his symptoms. The patient's creatinine had started to increase, so I discontinued the farida ent's diuretic therapy. He had to be given IV fluids because of blood pressure that had decreased. His blood pressure has improved. There are arrangements being made for him to go see Dr. Bonilla in [facility] for an EPS study. The patient had no complaints of any headaches or dizziness. He has bee n able to ambulate. He has no nausea, no vomiting, no dysuria, frequency, no abdominal pain or back pain. PHYSICAL EXAMINATION: VITAL SIGNS: Temperature is 97.7, pulse 55, blood pressure 102/79, respiration is 14. GENERAL: The patient comfortable, in no acute distress. HEENT: Anicteric sclerae. Moist mucosa. NECK: No JVD or adenopathy. CARDIAC: S1/S2. No murmurs. No rubs. Regular. RESPIRATORY: Clear to auscultation bilaterally. No wheezes, rales, or rhonchi. Good air entry. ABDOMEN: Bowel sounds are positive, soft, nontender, and nondistended. EXTREMITIES: No edema. Has 1+ pulses. ASSESSMENT: 1. Atrial fibrillation with rapid rate, now resolved. 2. Acute congestive heart failure secondary to diastolic dysfunction. 3. Dyslipidemia. 4. Chronic obstructive pulmonary disease. 5. Hypertension. 6. Diabetic neuropathy. 7. Hypomagnesemia. 8. Obesity with a body mass index of 44. PLAN: The patient is currently comfortable. He is on Coumadin. He is on a higher dose because of h is INR being subtherapeutic. The patient is on digoxin. He is on Levemir for his diabetes. He is o n Lipitor for dyslipidemia. He is on simethicone. He was given simethicone last night. He was seen by the house doctor. I did review his notes. The patient is on lisinopril for his hypertension. T he patient had been restless last night, but he has improved. I will continue to observe him today. An ABG had been ordered. He is being followed by Dr. Godinez. CONDITION: Stable. If he remains stable throughout the day, we will discharge the patient home. ACTIVITIES: Increase as tolerated. Axel Villagomez MD cc: [id number] TT: 05/25/2016 10:15:05 tn
[2016-05-25] MEDS: Insulin Detemir 100 units/ml Vial (Levemir) SC SCH ×2 (10:31→18:53)
[2016-05-25] MEDS: Insulin Reg-HIGH-Coverage SC SCH ×4 (10:31→23:01)
--- NOTE | 2016-05-25 11:14 | PN ---
DATE: 05/25/2016 REASON FOR CONSULTATION AND FOLLOWUP: Shortness of breath, atrial fibrillation with rapid rate, COPD , morbid obesity, cardiac evaluation. BRIEF CLINICAL HISTORY: This is a 55-year-old morbidly obese male with a past medical history signif icant for congestive heart failure, hypertension, diabetes, hyperlipidemia, chronic atrial fibrillati on, status post cardiac catheterization twice, nonobstructive coronary artery disease, recently disch arged, readmitted because of shortness of breath; history of chronic atrial fibrillation, on Pradaxa, now on Coumadin. Yesterday heart rate was 110. Two doses of digoxin were given. Now heart rate is in the 70s. (Yesterday progress note mentioned 2 doses of Lasix. It was a typo or wrong dictation. It was 2 doses of digoxin that were given). Correct as patient had 2 doses of digoxin given. Hear t rate is well controlled. Lying flat on the bed without pillow. Denies any chest pain, shortness o f breath, any palpitation. Ejection fraction 45% by the last echo on 06/10/2015, global hypokinesis, mitral regurgitation, tricuspid regurgitation, RV systolic pressure of 20. PHYSICAL EXAMINATION: VITAL SIGNS: Temperature afebrile, heart rate 57, blood pressure 107/56. HEENT: PERRLA. Extraocular muscles intact. NECK: Supple. No carotid bruits. No thyromegaly. CHEST: Clear to auscultation. HEART: S1, S2 regular. ABDOMEN: Soft. EXTREMITIES: Clubbing and cyanosis negative. BLOOD WORKUP: WBC 8.9, hemoglobin 13.2, hematocrit ____.2, platelet count 196. Chemistry shows sodi um 130, potassium 5.3, chloride 95, carbon dioxide 29, anion gap of 17, BUN 30, creatinine 3.2. IMPRESSION: Acute kidney injury probably secondary to hypotension, morbid obesity with body mass ind ex 43.3 kg/m2, atrial fibrillation with rapid ventricular rate, diabetes, hypertension, hyperlipidemi a, chronic obstructive pulmonary disease, INR 1.3. RECOMMENDATION: Give IV gentle hydration. Continue Coumadin. Verapamil with holding parameters. H old diuretics. Start gentle hydration and monitor electrolytes. Will discontinue lisinopril. Hold L asix. We will hold the verapamil with holding parameters. We will follow closely. Thank you, Dr. Villagomez, for providing the opportunity in taking care of the patient. Repeat the blo od workup in the morning. Tia Rajan MD cc: [id number] TT: 05/25/2016 11:13:48 Confirmation # [id number] Dictation # [id number]
--- NOTE | 2016-05-25 13:28 | IP.NPCORE ---
Heart Failure Core Measure - Heart Failure Ejection Fraction: 40 % or Greater Left Ventricular Function to be assessed after discharge: Yes SID Inhibitor Prescribed: Yes Beta-Giuliana Prescribed: Metoprolol Succinate Angiotensin II Receptor Giuliana Prescribed: No Contraindication/Reason for not providing: hypotension AnticoagulationTherapy for Atrial Fibrillation/Atrialflutter: Yes Aldosterone Antagonist Prescribed: Yes Hydralazine Nitrate Prescribed: No Contraindication/Reason for not providing: hypotension Implantable Cardioverter Defibrillator Therapy: No Contraindication/Reason for not providing: n/a Cardiac Resynchronization Therapy Prescribed: Yes - Follow up Will be discharged to: Home Follow Up Date (must be within 7 days from discharge): 06/01/16 Follow Up Time: 09:00
[2016-05-25] MEDS: Digoxin 125 mcg (0.125 mg) Tab PO SCH (13:52)
--- NOTE | 2016-05-25 14:15 | CARD ---
APPROVED REPORT EKG Measurement Heart [id number] <Conclusion> Atrial fibrillation with a competing junctional pacemaker Low voltage QRS Nonspecific T wave abnormality, probably digitalis effect Abnormal ECG
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
--- NOTE | 2016-05-25 20:36 | PN ---
DATE: 05/25/2016 REFERRING PHYSICIAN: Dr. Axel Villagomez SUBJECTIVE: He is out of bed to chair. Events noted: Had acute increased BUN and creatinine. Rece ived some fluids. Presently feels much better. Breathing is better. No cough, no sputum production , no nausea, no vomiting, no diarrhea. Still having leg swelling though. OBJECTIVE: GENERAL: No acute distress. VITAL SIGNS: Temperature is 98, heart rate is 58, respiratory rate is 20, blood pressure 111/82. HEENT: Moist mucous membranes. Crowded airway. Mallampati score is 4. NECK: Supple. No JVD. LUNGS: Has a fair airflow with decreased breath sounds at the bases. HEART: S1, S2. ABDOMEN: Soft, nontender. No organomegaly. EXTREMITIES: Still has edema. NEUROLOGIC: Awake, alert, follows simple command. MEDICATIONS: He is on Amaryl 5 mg daily, Ativan 2 mg a.m. and at bedtime, Calan 20 mg 3 times a day, Coumadin 10 mg given today, trazodone 200 mg at bedtime, DuoNeb q. 6 hours, digoxin 0.125 mg daily, Levemir 15 units subQ twice a day, Lipitor 40 mg daily, metoprolol tartrate 25 mg twice a day, Singul air 10 mg daily, IV fluid normal saline 75 mL given up to 1 L, Wellbutrin 75 mg daily. LABORATORY DATA: Shows hemoglobin 13.2 yesterday. INR 1.30. Blood gases show this morning pH 7.50, pCO2 of 19, O2 of 78; this is on nasal cannula. Sodium 136, potassium 4.3, chloride 95, bicarbonat e 29, BUN 40, creatinine 3.2, glucose 94, calcium is 8.6, phosphorus 6.7, AST 2011, ALT is 1238. Tro ponin 0.10. ProBNP 5010. Chest x-ray, done today, shows moderate right pleural effusion, no infiltrate, mild congestive change s, cardiomegaly. IMPRESSION AND PLAN: Cardiomyopathy with decreased LV function, atrial fibrillation, chronic obstruc tive lung disease, obstructive sleep apnea syndrome, diabetes, hypertension, obesity, became hypotens bob, and renal insufficiency. Had a fluid resuscitation, presently stable, hemodynamically okay, gayathri athing is alright, encourage BiPAP use. Keep head elevated at 45 degree. Follow up electrolytes in the morning. Thank you and we will follow with you. Tia Godinez MD cc: [id number] TT: 05/25/2016 20:36:01 Confirmation # [id number] Dictation # [id number] ln
--- NOTE | 2016-05-26 07:33 | PN ---
DATE: 05/26/2016 SUBJECTIVE: The patient was confused yesterday. He is less confused. He has no complaints of any branden st pain. His blood pressure was low; that has improved as well. PHYSICAL EXAMINATION: VITAL SIGNS: Temperature is 97.8, pulse 102, blood pressure 98/70, respirations 20. GENERAL: The patient comfortable, in no acute distress. HEENT: Anicteric sclerae. Moist mucosa. NECK: No JVD or adenopathy. CARDIAC: S1/S2. No murmurs. No rubs. Regular. RESPIRATORY: Clear to auscultation bilaterally. No wheezes, rales, or rhonchi. Good air entry. ABDOMEN: Bowel sounds are positive, soft, nontender, and nondistended. EXTREMITIES: No edema. Has 1+ pulses. LABS: White count of 8.9, hemoglobin 13.2, creatinine is ____.2. ASSESSMENT: 1. Atrial fibrillation with rapid rate, improved. 2. Acute kidney injury. 3. Delirium. 4. Congestive heart failure secondary to diastolic dysfunction, resolved. 5. Dyslipidemia. 6. Chronic obstructive pulmonary disease. 7. Hypertension. 8. Diabetic neuropathy. 9. Hypomagnesemia. 10. Obesity with a body mass index of 44. 11. Transaminitis. PLAN: The patient is currently comfortable. His blood pressure medication is on hold. The patient i s using his BiPAP. He is getting IV fluids because of his acute kidney injury. He is on anticoagulati on. The patient has a subtherapeutic INR. I did increase his Coumadin yesterday. The patient is curre ntly on verapamil. He is receiving Ativan daily for his anxiety. He is on Lipitor for dyslipidemia. Audrey painter is on Wellbutrin also. He is on Amaryl for his diabetes. He is on insulin coverage. His LFTs were e levated yesterday. He will need to continue to stay in the hospital until he is back to his baseline and his creatinine improves. Axel Villagomez MD cc: [id number] TT: 05/26/2016 07:32:07 Confirmation # [id number] Dictation # [id number] mn
[2016-05-26 07:55] LABS: HEMATOCRIT 39.3 % (42.0-52.0); MEAN CELL VOLUME 86.2 fL (80.0-105.0); MEAN CORPUSCULAR HEMOGLOBIN 28.3 pg (25.0-35.0); MEAN CORPUSCULAR HGB CONC 32.8 g/dl (31.0-37.0); MEAN PLATELET VOLUME 10.6 fl (7.0-11.0); RED CELL DISTRIBUTION WIDTH 14.5 % (11.5-14.5); WHITE BLOOD COUNT 8.8 10^3/ul (4.5-11.0)
[2016-05-26 08:11] LABS: ALB/GLOB RATIO 1.3 (1.1-1.8); BILIRUBIN,TOTAL 0.6 mg/dL (0.2-1.3); CALCIUM 8.3 mg/dL (8.4-10.5); POTASSIUM 3.9 mmol/L (3.6-5.0)
--- NOTE | 2016-05-26 09:51 | PN ---
DATE: 05/26/2016 REASON FOR CONSULTATION AND FOLLOWUP: Shortness of breath, atrial fibrillation, rapid ventricular ra te, morbid obesity, cardiac evaluation, acute kidney injury. BRIEF CLINICAL HISTORY: A 55-year-old morbidly obese male with a past medical history significant fo r congestive heart failure, hypertension, diabetes, hyperlipidemia, chronic atrial fibrillation, stat us post cardiac catheterization twice, nonobstructive coronary artery disease, recently discharged, r eadmitted because of shortness of breath, history of chronic atrial fibrillation, on Pradaxa, now on Coumadin. Yesterday, heart rate was 110, dose of digoxin was given, heart rate is fairly stabl e now, 70s. The patient went into acute kidney injury, started on IV fluid. Last echo shows ejectio n fraction 45%, dated 06/10/2015, global hypokinesis with mitral regurgitation, tricuspid regurgitatio n, RV systolic pressure 20. Lying flat on the bed. Denies any chest pain, shortness of breath, any palpitation. PHYSICAL EXAMINATION: VITAL SIGNS: Heart rate 90, temperature afebrile, blood pressure 99/64. HEENT: PERRLA. Extraocular muscles intact. NECK: Supple. No carotid bruits. No thyromegaly. CHEST: Clear to auscultation. HEART: S1, S2 regular. ABDOMEN: Soft. EXTREMITIES: Clubbing, cyanosis negative. WBC 8.8, hemoglobin 12.9, hematocrit 39.3, platelet count 162. Chemistry shows sodium 140, potassium 3.9, chloride 98, carbon dioxide 31, anion gap of 15, BUN 48, creatinine 2.3. IMPRESSION: Acute decompensated congestive heart failure, acute on chronic secondary to systolic dys function, acute kidney injury secondary to over diuresed, abnormal liver function tests secondary to congestion and shock liver. Yesterday, patient was hypotensive. Atrial fibrillation with rapid vent ricular rate, morbid obesity, nonobstructive coronary artery disease, cardiomyopathy, ejection fracti on 45%, mitral regurgitation, tricuspid regurgitation. INR 1.3. RECOMMENDATION: Continue Coumadin. We will use 2 more doses of Lovenox as a bridge. Continue digox in. Continue verapamil as blood pressure is tolerated. Discussed with the patient, discussed with Albert Donaldson. Once the patient is stable, will be discharged home and then follow up with Dr. Bonilla for radiofrequency ablation for atrial fibrillation which is hard to control because of multiple ena rbidities including obesity, chronic obstructive pulmonary disease, status post cardiac catheterizati on twice, nonobstructive coronary artery disease. We will follow with you. Thank you, Dr. Villagomez, for providing us the opportunity in taking care of the patient. Also, goal is to keep INR between 2-2.5. Coumadin increased to 10 mg. We will repeat the blood workup in the [facility]. Tia Rajan MD cc: [id number] TT: 05/26/2016 09:51:05 Confirmation # [id number] Dictation # [id number] en
[2016-05-26] MEDS: Insulin Reg-HIGH-Coverage SC SCH ×4 (10:31→21:48)
[2016-05-26] MEDS: Insulin Detemir 100 units/ml Vial (Levemir) SC SCH ×2 (10:31→17:22)
[2016-05-26] MEDS: Digoxin 125 mcg (0.125 mg) Tab PO SCH (13:28)
--- NOTE | 2016-05-26 16:44 | PN ---
DATE: 05/26/2016 REFERRING PHYSICIAN: Dr. Villagomez. SUBJECTIVELY: He is lying in the bed, feels okay. Tolerated BiPAP for a few hours. No headache, no rhinitis, no nausea, no vomiting, no diarrhea. Still having leg swelling. OBJECTIVELY: No acute distress. Temp is 98, heart rate is 109, respiratory rate is 20, blood pressure 101/63, pulse ox is 96% on room air. HENT: Moist mucous membranes. Crowded airway. NECK: A short, thick neck. LUNGS: Have a fair airflow. HEART: S1 and S2. ABDOMEN: Soft, obese. EXTREMITIES: Has edema. NEUROLOGICALLY: Awake, alert. Follows simple commands. MEDICATIONS: He is on Amaryl 4 mg daily, Ativan 2 mg a.m. and at bedtime, Calan 40 mg 3 times a day, Coumadin 10 mg daily, trazodone 200 mg at bedtime, DuoNeb q. 6 hours, digoxin 0.125 mg daily, insuli n coverage, Lipitor 20 mg daily, metoprolol tartrate 25 mg twice a day, Singulair 10 mg daily, Wellbu [place] 75 mg twice a day. LABORATORY DATA: Shows hemoglobin 12.9, hematocrit 39.3, WBC 8.8, platelet count is 162. Sodium 140 , potassium 3.9, chloride 98, bicarbonate is 31, BUN 48, creatinine 2.3, glucose is 87, calcium 8.3, magnesium 2.3. AST 2569, ALT 1800, alk phos is 64, albumin 3.4. IMPRESSION AND PLAN: Cardiomyopathy with decreased left ventricular function, atrial fibrillation, c hronic obstructive lung disease, obstructive sleep apnea syndrome, diabetes, hypertension, obesity, r enal insufficiency. His organ perfusion probably dependent on high pressures. When we try to contro l his heart failure and symptom controlling his heart rate, may be becoming hypotensive. Have to slo wly diurese him. May need to keep his pressure a little up. Encourage BiPAP use, inhaled bronchodil ators. Continue anticoagulation. INR in the morning. Thank you, and will follow with you. Tia Godinez MD cc: [id number] TT: 05/26/2016 16:43:52 Confirmation # [id number] Dictation # [id number] jn
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
--- NOTE | 2016-05-27 07:05 | CP.PCM.PN ---
<Fidelina Chiu - Last Filed: 05/27/16 07:18> Subjective - Date & Time of Evaluation Date of Evaluation: 05/27/16 Time of Evaluation: 06:59 - Subjective Subjective: Code-bruner Pt was seen agitated, refused C-pap, cursing, kicking, restless, trying to climb out of bed. He had 1 prior agitation episode 3 hours, resulting in soft restraint and 4 ativan.Sugar 108 at 4am. This is a 55 year old male with a past medical history that includes atrial fibrillation on Coumadin, congestive heart failure, COPD, hypertension, diabetes , and dyslipidemia admitted for CHF exacerbation and COPD. CXT:Pulm edema. Pt Has PMH of CHF,COPD, morbid obesity,dyslipidemia,DM II ,diabetic neuropathy, HTN,atrial fibrillation. Objective - Vital Signs/Intake and Output Vital Signs (last 24 hours): Temp Pulse Resp BP Pulse Ox 98.3 F 122 H 20 116/71 95 05/27/16 05:16 05/27/16 05:16 05/27/16 05:16 05/27/16 05:16 05/27/16 05:16 Intake and Output: 05/26/16 05/27/16 18:59 06:59 Intake Total 360 Output Total 1450 Balance -1090 - Medications Medications: Current Medications Albuterol/Ipratropium (Duoneb 3 Mg/0.5 Mg (3 Ml) Ud) 3 ml IH [id number] PRN PRN Reason: Shortness of Breath Last Admin: 05/24/16 20:14 Dose: 3 ml Atorvastatin Calcium (Lipitor) 40 mg PO DIN [facility] Last Admin: 05/26/16 17:10 Dose: 40 mg Bupropion HCl (Wellbutrin) 75 mg PO BID [facility] Last Admin: 05/26/16 17:10 Dose: 75 mg Digoxin (Lanoxin) 0.125 mg PO 1400 [facility] Last Admin: 05/26/16 13:28 Dose: 0.125 mg Glimepiride (Amaryl) 4 mg PO DAILY [facility] Last Admin: 05/26/16 10:36 Dose: 4 mg Insulin Detemir (Levemir) 50 unit SC BID [facility] Last Admin: 05/26/16 17:22 Dose: Not Given Insulin Human Regular (Humulin R High) 0 units SC ACHS [facility] PRN Reason: Protocol Last Admin: 05/26/16 21:48 Dose: Not Given Lorazepam (Ativan) 2 mg PO AMHS [facility] PRN Reason: Protocol Last Admin: 05/26/16 22:04 Dose: 2 mg Metoprolol Tartrate (Lopressor) 25 mg PO BID [facility] Last Admin: 05/26/16 17:22 Dose: Not Given Montelukast Sodium (Singulair) 10 mg PO DAILY [facility] Last Admin: 05/26/16 10:36 Dose: 10 mg Trazodone HCl (Desyrel) 200 mg PO HS [facility] Last Admin: 05/26/16 22:04 Dose: 200 mg Verapamil HCl (Calan Tab) 40 mg PO TID [facility] Last Admin: 05/26/16 17:22 Dose: Not Given Warfarin Sodium (Coumadin) 10 mg PO 1800 [facility] PRN Reason: Protocol Last Admin: 05/26/16 17:10 Dose: 10 mg - Labs Labs: 05/26/16 07:30 05/26/16 07:30 PT 14.0 Seconds (9.9-11.8) H 05/24/16 07:00 INR 1.30 (0.93-1.08) H 05/24/16 07:00 APTT 25.2 Seconds (23.7-30.8) 05/22/16 15:00 - Constitutional Appears: Agitated - Head Exam Head Exam: ATRAUMATIC, NORMOCEPHALIC - Eye Exam Eye Exam: EOMI, Normal appearance - ENT Exam ENT Exam: Mucous Membranes Moist - Neck Exam Additional comments: supple - Respiratory Exam Respiratory Exam: Clear to Ausculation Bilateral. absent: Rales, Rhonchi, Wheezes - Cardiovascular Exam Cardiovascular Exam: Tachycardia, +S1, +S2. absent: Murmur - GI/Abdominal Exam GI & Abdominal Exam: Soft, Normal Bowel Sounds. absent: Tenderness - Extremities Exam Extremities Exam: Normal Capillary Refill, Pedal Edema (slight). absent: Calf Tenderness - Neurological Exam Additional comments: Just received ativan. calmer but remained agitated - Psychiatric Exam Psychiatric exam: Normal Affect, Normal Mood - Skin Skin Exam: Dry, Warm Assessment and Plan - Assessment and Plan (Free Text) Plan: 55 obsese M Has PMH of CHF, COPD, morbid obesity,dyslipidemia,DM II ,diabetic neuropathy,HTN,atrial fibrillation, was agitated for the 2nd time of the day. It is likely from changes in O2 while pt refused C-PAP and [id number] with NC. He has sinus tachy at 133 with occassional PVC. - Ativan 4 - soft restraint until calm s/p ativan - 1:1 - Reapply 3L O2, POx 97% - Reassessment - pt calms down - AM labs will be drawn soon, which includes CBC, CMP R/D/S/w Dr. López <Kenan López - Last Filed: 05/27/16 19:30> Subjective - Date & Time of Evaluation Date of Evaluation: 05/27/16 Time of Evaluation: 19:30 - Subjective Subjective: Agree. Except:I had told nurse Mariella to watch but no 1:1 sitter now. Objective - Vital Signs/Intake and Output Vital Signs (last 24 hours): Temp Pulse Resp BP Pulse Ox 98.1 F 133 H 19 135/107 H 95 05/27/16 17:35 05/27/16 18:00 05/27/16 17:35 05/27/16 17:52 05/27/16 05:16 - Medications Medications: Current Medications Albuterol/Ipratropium (Duoneb 3 Mg/0.5 Mg (3 Ml) Ud) 3 ml IH [id number] PRN PRN Reason: Shortness of Breath Last Admin: 05/24/16 20:14 Dose: 3 ml Atorvastatin Calcium (Lipitor) 40 mg PO DIN [facility] Last Admin: 05/27/16 17:52 Dose: 40 mg Bupropion HCl (Wellbutrin) 75 mg PO BID [facility] Last Admin: 05/27/16 17:52 Dose: 75 mg Digoxin (Lanoxin) 0.125 mg PO 1400 [facility] Last Admin: 05/27/16 15:26 Dose: 0.125 mg Furosemide (Lasix) 40 mg IV BID [facility] Last Admin: 05/27/16 17:51 Dose: 40 mg Glimepiride (Amaryl) 4 mg PO DAILY [facility] Last Admin: 05/27/16 10:11 Dose: Not Given Insulin Detemir (Levemir) 50 unit SC BID [facility] Last Admin: 05/27/16 17:52 Dose: 50 unit Insulin Human Regular (Humulin R High) 0 units SC ACHS [facility] PRN Reason: Protocol Last Admin: 05/27/16 16:30 Dose: 2 units Lorazepam (Ativan) 2 mg PO AMHS [facility] PRN Reason: Protocol Last Admin: 05/27/16 10:12 Dose: Not Given Metoprolol Tartrate (Lopressor) 25 mg PO BID [facility] Last Admin: 05/27/16 17:52 Dose: 25 mg Montelukast Sodium (Singulair) 10 mg PO DAILY [facility] Last Admin: 05/27/16 10:13 Dose: Not Given Potassium Chloride (K-Dur 20 Meq Er Tab) 20 meq PO BRK [facility] Last Admin: 05/27/16 15:26 Dose: 20 meq Trazodone HCl (Desyrel) 200 mg PO HS [facility] Last Admin: 05/26/16 22:04 Dose: 200 mg Verapamil HCl (Calan Tab) 40 mg PO TID [facility] Last Admin: 05/27/16 17:46 Dose: 40 mg Warfarin Sodium (Coumadin) 8 mg PO 1800 [facility] PRN Reason: Protocol - Labs Labs: 05/27/16 07:58 05/27/16 07:57 PT 27.5 Seconds (9.9-11.8) H 05/27/16 07:58 INR 2.55 (0.93-1.08) H 05/27/16 07:58 APTT 25.2 Seconds (23.7-30.8) 05/22/16 15:00
[2016-05-27] MEDS: Insulin Reg-HIGH-Coverage SC SCH ×4 (07:59→22:14)
[2016-05-27 08:10] LABS: HEMATOCRIT 40.3 % (42.0-52.0); MEAN CELL VOLUME 87.2 fL (80.0-105.0); MEAN CORPUSCULAR HEMOGLOBIN 27.9 pg (25.0-35.0); MEAN PLATELET VOLUME 10.8 fl (7.0-11.0); RED CELL DISTRIBUTION WIDTH 14.4 % (11.5-14.5); WHITE BLOOD COUNT 8.4 10^3/ul (4.5-11.0)
[2016-05-27 08:19] LABS: INR 2.55 (0.93-1.08)
[2016-05-27 08:34] LABS: ALB/GLOB RATIO 1.4 (1.1-1.8); ALKALINE PHOSPHATASE 89 U/L (38-133); BILIRUBIN,TOTAL 0.9 mg/dL (0.2-1.3); BLOOD UREA NITROGEN 31 mg/dL (7-21); CALCIUM 8.9 mg/dL (8.4-10.5); CARBON DIOXIDE 34 mmol/L (21-33); CHLORIDE 101 mmol/L (98-107); GFR AFRICAN-AMERICAN > 60; GLUCOSE,RANDOM 98 mg/dL (70-110); POTASSIUM 3.9 mmol/L (3.6-5.0); SODIUM 142 mmol/L (132-148); TOTAL PROTEIN 5.9 g/dL (5.8-8.3)
[2016-05-27 08:42] LABS: ALT/SGPT 1550 U/L (7-56); AST/SGOT 1371 U/L (15-59)
[2016-05-27] MEDS: Insulin Detemir 100 units/ml Vial (Levemir) SC SCH ×3 (10:02→17:52)
--- NOTE | 2016-05-27 14:06 | PN ---
DATE: 05/27/2016 The patient is in room 267, bed 1. REASON FOR CONSULTATION AND FOLLOWUP: Shortness of breath, atrial fibrillation with rapid ventricula r rate, morbid obesity, acute kidney injury, CHF. HISTORY OF PRESENT ILLNESS: A 55-year-old morbidly obese male with past medical history significant for CHF, hypertension, diabetes, hyperlipidemia, chronic atrial fibrillation status post cardiac cath eterization twice, nonobstructive coronary artery disease. The patient now admitted with shortness o f breath, known to have chronic atrial fibrillation, was on Pradaxa, now on Coumadin. The patient al so went into acute kidney injury with creatinine going up 3.2, so diuretics were held, patient was gi priscilla IV fluid. Last echo done on 06/10/2015, which showed LV ejection fraction 45%, RV systolic pressu re of 20 mmHg. The patient lying flat in bed without any respiratory distress. Denies chest pain. PHYSICAL EXAMINATION: VITAL SIGNS: Blood pressure 116/71, respirations 20, pulse 122, temperature 98.3. HEAD: Normocephalic. EYES: Pupils normal. Conjunctivae normal. NOSE AND THROAT: Normal. NECK: JVP low. Carotid equal. THORAX: AP diameter normal. LUNGS: Few basilar rales. CARDIOVASCULAR: S1, S2. Irregular rhythm due to atrial fibrillation. No rub. ABDOMEN: Protuberant, no organomegaly. EXTREMITIES: No clubbing, no cyanosis. LABORATORY DATA: WBC 8.4, hemoglobin 12.9, hematocrit 40.3, platelets 141. Sodium 142, potassium 3. 9, BUN 31, creatinine 1.0. AST 1371, ALT 1550. Total protein 5.9, albumin 3.4. Chest x-ray 05/25 sug gestive of congestive changes and there is a questionable pleural effusion. DIAGNOSES: Acute on chronic acute decompensated congestive heart failure due to left ventricular sys tolic dysfunction, acute kidney injury because of effect of diuresis, abnormal liver function seconda ry to congestion, the patient had an episode of hypotension may be related to that, atrial fibrillati on with rapid rate, morbid obesity, nonobstructive coronary artery disease, cardiomyopathy, mitral re gurgitation, tricuspid regurgitation. PLAN: The patient's prothrombin time 27.5. INR 2.55 will continue verapamil 40 t.i.d. The patient is getting warfarin 10 mg daily. We will restart Lasix 40 IV b.i.d. along with potassium 20 p.o. suresh ly, digoxin 0.125 p.o. daily, metoprolol 25 b.i.d., atorvastatin 40 daily, glimepiride Amaryl 4 mg da tremayne, Wellbutrin 75 mg b.i.d. We continue present therapy and we will follow closely with you. We wi ll restart Lasix 40 IV b.i.d. and potassium 20 p.o. daily. Tia Cabello MD cc: [phone] TT: 05/27/2016 14:05:02 Confirmation # [id number] Dictation # [id number] jn
[2016-05-27] MEDS: Digoxin 125 mcg (0.125 mg) Tab PO SCH (15:26)
[2016-05-27] MEDS: Potassium Chloride 20 mEq ER Tab PO SCH (15:26)
[2016-05-27 15:27] LABS: ARTERIAL BLOOD GAS HCO3 31.5 mmol/L (21-28); ARTERIAL BLOOD GAS O2 CAPACITY 20.6 mL/dl (16-24); ARTERIAL BLOOD GAS O2 CONTENT 19.4 ML/dl (15-23); ARTERIAL BLOOD GAS PH 7.39 (7.35-7.45); ARTERIAL BLOOD HGB O2 SAT 91.6 % (95.0-98.0); CARBOXYHEMOGLOBIN 2.1 % (0.5-1.5); HHB 5.6 % (0-5); METHEMOGLOBIN 0.7 % (0.0-3.0)
--- NOTE | 2016-05-27 20:13 | PN ---
DATE: 05/27/2016 The patient is a 55-year-old morbidly obese, lying in bed. He seems to be sleepy, but arousable. According to person who is on one-to-one stated that he did not sleep all night and he able to fell asleep this morning around 9 o' clock and he did not eat well however. PHYSICAL EXAMINATION: VITAL SIGNS: He is afebrile, pulse 98, respirations 19, blood pressure 135/107. LUNGS: Bilateral fair airflow, diffusely decreased breath sounds because of thick chest wall. HEART: S1, S2 audible. ABDOMEN: Very obese, nontender, no rebound, no guarding. NEUROLOGIC: The patient is sleepy, but arousable. EXTREMITIES: Bilateral legs, +1 edema. LABORATORY DATA: His WBC is 8.4, hemoglobin 12.9, hematocrit 40, platelets 141. PT 27.5, INR 2.55. Chemistry: Sodium 142, potassium 3.9, chloride 101, CO2 34, BUN 31, creatinine 1.0, blood sugar 177, AST 1371, ALT 1550. Urinalysis is positive for glucose. Toxicity screen for digoxin is 1.0. ASSESSMENT: 1. Metabolic encephalopathy. 2. Nonobstructive coronary artery disease. 3. Abnormal liver function tests, etiology probably cardiac related. 4. Acute on chronic congestive heart failure with left ventricular systolic dysfunction. 5. Mitral regurgitation. 6. Tricuspid regurgitation. 7. History of chronic obstructive pulmonary disease. 8. Obstructive sleep apnea. PLAN: At this point, the patient is getting sedation intermittently. He is on verapamil t.i.d. We will give Coumadin 8 mg today. Monitor his PT/INR in a.m. Neuro evaluation by Dr. Reyna has been requested. We will follow up his electrolytes. I will check out for his previous abdominal sonogram to rule out any pathology in the liver, probably suppressive congestion secondary to right heart failure. We will follow up with LFTs in a.m. Ridge Velazquez MD cc: [phone] TT: 05/27/2016 20:12:16 hn LEANDER
--- NOTE | 2016-05-28 01:30 | CP.PCM.PN ---
Subjective - Date & Time of Evaluation Date of Evaluation: 05/28/16 Time of Evaluation: 01:29 - Subjective Subjective: Nurse calls to get an order for sedation because patient is agitated,screaming. Seen at bedside. He is screaming, trying to get out of bed. 55 year old white male was admitted with sob. Has PMH of CHF, COPD,morbid obesity, DM II , atrial fibrillation, diabetic neuropathy. Objective - Vital Signs/Intake and Output Vital Signs (last 24 hours): Temp Pulse Resp BP Pulse Ox 97.0 F L 64 22 154/85 H 97 05/28/16 00:01 05/28/16 00:01 05/28/16 00:01 05/28/16 00:01 05/28/16 00:01 - Medications Medications: Current Medications Albuterol/Ipratropium (Duoneb 3 Mg/0.5 Mg (3 Ml) Ud) 3 ml IH [id number] PRN PRN Reason: Shortness of Breath Last Admin: 05/24/16 20:14 Dose: 3 ml Atorvastatin Calcium (Lipitor) 40 mg PO DIN [facility] Last Admin: 05/27/16 17:52 Dose: 40 mg Bupropion HCl (Wellbutrin) 75 mg PO BID [facility] Last Admin: 05/27/16 17:52 Dose: 75 mg Digoxin (Lanoxin) 0.125 mg PO 1400 [facility] Last Admin: 05/27/16 15:26 Dose: 0.125 mg Furosemide (Lasix) 40 mg IV BID [facility] Last Admin: 05/27/16 17:51 Dose: 40 mg Glimepiride (Amaryl) 4 mg PO DAILY [facility] Last Admin: 05/27/16 10:11 Dose: Not Given Insulin Detemir (Levemir) 50 unit SC BID [facility] Last Admin: 05/27/16 17:52 Dose: 50 unit Insulin Human Regular (Humulin R High) 0 units SC ACHS [facility] PRN Reason: Protocol Last Admin: 05/27/16 22:14 Dose: Not Given Lorazepam (Ativan) 2 mg PO AMHS [facility] PRN Reason: Protocol Last Admin: 05/27/16 22:09 Dose: 2 mg Metoprolol Tartrate (Lopressor) 25 mg PO BID [facility] Last Admin: 05/27/16 17:52 Dose: 25 mg Montelukast Sodium (Singulair) 10 mg PO DAILY [facility] Last Admin: 05/27/16 10:13 Dose: Not Given Potassium Chloride (K-Dur 20 Meq Er Tab) 20 meq PO BRK [facility] Last Admin: 05/27/16 15:26 Dose: 20 meq Trazodone HCl (Desyrel) 200 mg PO HS [facility] Last Admin: 05/27/16 22:10 Dose: 200 mg Verapamil HCl (Calan Tab) 40 mg PO TID [facility] Last Admin: 05/27/16 17:46 Dose: 40 mg Warfarin Sodium (Coumadin) 8 mg PO 1800 [facility] PRN Reason: Protocol - Labs Labs: 05/27/16 07:58 05/27/16 07:57 PT 27.5 Seconds (9.9-11.8) H 05/27/16 07:58 INR 2.55 (0.93-1.08) H 05/27/16 07:58 APTT 25.2 Seconds (23.7-30.8) 05/22/16 15:00 - Constitutional Appears: Well, No Acute Distress - Head Exam Head Exam: ATRAUMATIC, NORMAL INSPECTION, NORMOCEPHALIC Additional comments: Obese patient. - Eye Exam Eye Exam: Normal appearance - ENT Exam ENT Exam: Normal External Ear Exam - Neck Exam Neck Exam: Normal Inspection - Respiratory Exam Respiratory Exam: NORMAL BREATHING PATTERN - Cardiovascular Exam Cardiovascular Exam: absent: JVD - GI/Abdominal Exam GI & Abdominal Exam: absent: Distended - Rectal Exam Rectal Exam: Deferred - Extremities Exam Extremities Exam: Normal Inspection - Back Exam Back Exam: NORMAL INSPECTION - Neurological Exam Neurological Exam: Alert - Psychiatric Exam Psychiatric exam: Agitated - Skin Skin Exam: Normal Color Assessment and Plan - Assessment and Plan (Free Text) Assessment: A/P: Agitation. CHF. COPD. DM II. Ativan 4 mg IV was given.
[2016-05-28] MEDS: Insulin Reg-HIGH-Coverage SC SCH ×3 (07:57→22:30)
[2016-05-28] MEDS: Insulin Detemir 100 units/ml Vial (Levemir) SC SCH ×2 (10:00→17:16)
[2016-05-28] MEDS: Potassium Chloride 20 mEq ER Tab PO SCH (10:32)
[2016-05-28 12:01] LABS: ADD MANUAL DIFF? NO
[2016-05-28 12:05] LABS: BASO # 0.03 K/mm3 (0.0-2.0); BASO % 0.4 % (0.0-3.0); EOS # 0.1 (0.0-0.7); GRAN # 5.86 (1.4-6.5); GRAN % 75.8 % (50.0-68.0); HEMATOCRIT 43.4 % (42.0-52.0); LYMPH # 1.1 (1.2-3.4); LYMPH % 14.3 % (22.0-35.0); MEAN CELL VOLUME 87.7 fL (80.0-105.0); MEAN CORPUSCULAR HEMOGLOBIN 28.3 pg (25.0-35.0); MEAN CORPUSCULAR HGB CONC 32.3 g/dl (31.0-37.0); MEAN PLATELET VOLUME 10.6 fl (7.0-11.0); MONO # 0.7 (0.1-0.6); MONO % 8.5 % (1.0-6.0); PLATELET COUNT 142 10^3/uL (120.0-450.0); RED CELL DISTRIBUTION WIDTH 14.4 % (11.5-14.5); WHITE BLOOD COUNT 7.7 10^3/ul (4.5-11.0)
[2016-05-28 12:16] LABS: ALB/GLOB RATIO 1.2 (1.1-1.8); ALKALINE PHOSPHATASE 85 U/L (38-133); AST/SGOT 671 U/L (15-59); BILIRUBIN,TOTAL 1.3 mg/dL (0.2-1.3); BLOOD UREA NITROGEN 21 mg/dL (7-21); CALCIUM 9.3 mg/dL (8.4-10.5); CARBON DIOXIDE 38 mmol/L (21-33); CHLORIDE 97 mmol/L (98-107); GFR AFRICAN-AMERICAN > 60; GLUCOSE,RANDOM 129 mg/dL (70-110); SODIUM 144 mmol/L (132-148); TOTAL PROTEIN 6.7 g/dL (5.8-8.3)
[2016-05-28 12:24] LABS: ALT/SGPT 1161 U/L (7-56)
--- NOTE | 2016-05-28 12:45 | CON ---
DATE: 05/28/2016 NEUROLOGY CONSULT CHIEF COMPLAINT: Agitation and confusion. HISTORY OF PRESENT ILLNESS: A 55-year-old man with past medical history of atrial fibrillation on [place], congestive heart failure, COPD, hypertension, diabetes, dyslipidemia, sleep apnea, came in to the hospital, admitted for CHF exacerbation of COPD. Chest x-ray showed some mild pulmonary edema a nd some consolidation, and has history of diabetic peripheral neuropathy of his uncontrolled diabetes , and he is also obese, was agitated, refusing the CPAP, and kicking and restless, trying to climb ou t of bed, and he was given 4 Ativan. He was also found to have some metabolic derangements as well. Currently, he is more calm. He is on 1:1. No further agitation episodes overnight after being given Ativan. He gets trazodone at night 200 mg p.o. at bedtime. PAST MEDICAL HISTORY: History of CHF, hypertension, COPD, type 2 diabetes mellitus, diabetic periphe ral neuropathy, atrial fibrillation, hypertension. CURRENT MEDICATIONS: Reviewed via nurse's reconciliation sheet. ALLERGIES: WILD BERRIES. REVIEW OF SYSTEMS: A 14-point review of systems is negative except for the HPI. FAMILY HISTORY: Noncontributory. SOCIAL HISTORY: No illicit drug use, smoking, or EtOH abuse. PHYSICAL EXAMINATION: VITAL SIGNS: Temperature 96.6, pulse rate of 130, blood pressure of 140/74, respiratory rate of 20, oxygen saturation 97% via room air. GENERAL: The patient is sitting up in bed. He is morbidly obese. His Mallampati score is more than 4. HEENT: Atraumatic, normocephalic. PERRLA. Extraocular muscles intact. NECK: Supple. No JVD, no adenopathy noted. LUNGS: Decreased breath sounds bilaterally. He has a thick chest wall. HEART: Tachycardic. S1, S2, normal rate and rhythm. No murmurs. ABDOMEN: Is very obese, nontender. No rebound, no guarding, no rigidity. NEUROLOGIC: The patient is alert, oriented to person and place and year. Recall after 5 minutes is 1/3. Poor attention span, slow thought process. Cranial nerves II through XII are intact. MOTOR: Moves all extremities. Strength is 5/5 in both upper and lower extremities. Toes are downgo ing bilaterally. SENSORY: Decreased light touch to pinprick up to the calves bilaterally. DTRs are 1+ and absent at the ankles. COORDINATION: Tdtfoa-[id number] intact. GAIT: Deferred for now. LABORATORY DATA: Today, blood sugar is 142. ASSESSMENT AND PLAN: This is a 55-year-old man with history of atrial fibrillation on Coumadin, hist ory of hypertension, history of dyslipidemia, history of diabetes, history of dyslipidemia, congestiv e heart failure, hypertension, diabetic peripheral neuropathy, who has been admitted for chronic obst ructive pulmonary disease exacerbation as well as seizure exacerbation, and was consulted for agitati on and confusion. He is refusing use his CPAP. He was kicking and restless, trying to climb out of bed. At this time, his confusion and agitation are likely secondary to obstructive sleep apnea from noncompliance with CPAP, and metabolic encephalopathy superimposed on underlying hypertensive urgency . At this time, recommend: 1. Keep his blood pressure between 130-140 mmHg. 2. Could consider Seroquel 25 mg p.o. at bedtime for agitation. Also, there is a component of metabo lic encephalopathy on this whole scenario. I feel like at this time: 1. Encourage the patient to use the CPAP to balance his CO2 and oxygen values. 2. Keep his systolic blood pressure between 120-130 mmHg. 3. Could consider, if he gets agitated, Seroquel 12.5 mg p.o. at bedtime. 4. Will need a psychiatric evaluation. 5. Continue with cardiac management for acute congestive heart failure with left ventricular systoli c dysfunction. At this time, continue with current present management. No further neurological workup is needed at this time. We will get some PT also on him - out of bed to chair. Monitor his electrolytes and perla ect accordingly. Lio Reyna MD cc: [phone] TT: 05/28/2016 12:44:51 Confirmation # [id number] Dictation # [id number] carla
[2016-05-28 14:14] LABS: INR 2.53 (0.93-1.08)
[2016-05-28] MEDS: Digoxin 125 mcg (0.125 mg) Tab PO SCH (15:43)
--- NOTE | 2016-05-28 15:47 | PN ---
DATE: 05/28/2016 The patient is in room 267, bed 1. REASON FOR CONSULTATION AND FOLLOWUP: Shortness of breath, atrial fibrillation with rapid ventricula r rate, morbid obesity, acute kidney injury, CHF. HISTORY OF PRESENT ILLNESS: A 55-year-old morbidly obese male with past medical history significant for CHF, hypertension, diabetes, hyperlipidemia, chronic atrial fibrillation, status post cardiac cat heterization twice showing nonobstructive coronary artery disease. The patient now admitted with jazzmine rtness of breath, known to have chronic atrial fibrillation, was on Pradaxa and is now on Coumadin. The patient also developed acute kidney injury with a creatinine going up to 3.2. So at that time, p atient's diuretics were held and he was put on IV fluid. Last echo on 06/10/2015 showed LV ejection f raction of 45%, RV systolic pressure of 20 mmHg. The patient lying flat in bed, without chest pain. He says his shortness of breath is better. PHYSICAL EXAMINATION: VITAL SIGNS: Blood pressure 118/74, respirations 20, pulse 95, temperature 97.5. HEAD: Normocephalic. EYES: Pupils normal. Conjunctivae normal. NOSE AND THROAT: Normal. NECK: JVP low. Carotid equal. THORAX: AP diameter normal. LUNGS: No significant rales. CARDIOVASCULAR: S1, S2. ABDOMEN: Protuberant, no organomegaly. EXTREMITIES: No clubbing, no cyanosis. LABORATORY DATA: WBC 7.7, hemoglobin 14.0, hematocrit 43.4, platelets 142. Sodium 144, potassium 4. 0, BUN 21, creatinine 0.8, random glucose 129, AST 671, ALT 1161, total protein 6.7, albumin 3.7. DIAGNOSES: Acute on chronic decompensated congestive heart failure due to left ventricle systolic dy sfunction, acute kidney injury because of effects of diuresis, abnormal liver function secondary to c ongestion. The patient also had an episode of hypotension, which may be related to that, atrial fibr illation with rapid ventricular rate, morbid obesity, nonobstructive coronary artery disease, cardiom yopathy, mitral regurgitation, tricuspid regurgitation. PLAN: The patient's Lasix 40 IV b.i.d. has been started yesterday. The patient's prothrombin time 2 7.3, INR 2.53. The patient is on warfarin 80 mg p.o. daily, hand nebulizer DuoNeb therapy, potassium 20 mEq daily, digoxin 0.25 daily, furosemide 40 IV b.i.d., insulin Levemir 40 units subQ b.i.d., Lip itor 40 daily, metoprolol 25 b.i.d., Singulair 10 mg p.o. daily, Amaryl 4 mg daily. Told patient to lose weight. We will continue present therapy. We will follow with you. Tia Cabello MD cc: [id number] TT: 05/28/2016 15:46:56 Confirmation # [id number] Dictation # [id number] en
--- NOTE | 2016-05-28 16:33 | PN ---
DATE: 05/28/2016 The patient is a 55-year-old, seen and examined. He is extremely agitated, noncooperative, pulled ou t his IV, noncompliant with medication, not in any acute distress. No nausea, vomiting, no diarrhea. PHYSICAL EXAMINATION: VITAL SIGNS: He is afebrile, pulse 95, respirations 20, blood pressure /74. LUNGS: Bilateral diffusely decreased breath sounds because of obesity. HEART: S1, S2 audible. ABDOMEN: Soft, obese, nontender, no rebound, no guarding. NEUROLOGIC: He is awake and alert, but confused and disoriented. EXTREMITIES: Bilateral legs +1 edema. LABORATORY EXAMINATION: WBCs 7.7, hemoglobin 14, hematocrit 43, platelet of 142. PT is 27.3, INR 2. 53. Chemistry: Sodium 144, potassium 4.0, chloride 97, CO2 38, BUN 21, creatinine 0.8, blood sugar of 129. His AST is nicely coming down, yesterday was 1371 and today 671. Yesterday, his ALT was 155 0, today is 1161. Abdominal ultrasound is pending. ASSESSMENT: 1. Morbid obesity. 2. Metabolic encephalopathy. 3. Chronic obstructive pulmonary disease. 4. Obstructive sleep apnea. 5. Acute liver ischemia. The patient's alkaline phosphatase is normal. However, his ALT/AST are el evated only after he had episode of hypotension on 05/25. It seems to be improving now. 6. Hypertension. 7. Hyperlipidemia. 8. Mitral regurgitation. 9. Acute on chronic congestive heart failure, seems to be improving now. PLAN: We will give him sedation p.r.n. Currently, patient has no IV access. We will give him Ativa n 4 mg intramuscular. Once his IV access is available, can be given IV and I will give him Seroquel 25 at bedtime as recommended by neuro. We will continue to monitor for his safety and GI evaluation by Dr. Candelario was requested, input appreciated. We will follow up his electrolytes, CBC, CMP in a. m. Ridge Vealzquez MD cc: [phone] TT: 05/28/2016 16:32:11 Confirmation # [id number] Dictation # [id number] en
--- NOTE | 2016-05-28 17:39 | PN ---
DATE: 05/28/2016 REFERRING PHYSICIAN: Dr. Axel Villagomez. SUBJECTIVE: He is lying in the bed, sleepy. At times very anxious and wants to leave. Under 1:1 hermosillo pervision. Part of the night used his BiPAP. Breathing is better. No cough, no sputum production. No nausea, no vomiting, no diarrhea. Decreased leg swelling. OBJECTIVE: GENERAL: In no acute distress. VITAL SIGNS: Temperature is 98, heart rate is 95, respiratory rate is 20, blood pressure 118/74, pul se ox is 96% on nasal cannula. HEENT: Moist mucous membrane. Crowded airway. Mallampati score is 4. NECK: Supple. No JVD. LUNGS: Has a fair airflow. HEART: S1, S2. ABDOMEN: Soft, nontender. No organomegaly. EXTREMITIES: There is no edema. NEUROLOGIC: Awake, alert, follows simple commands. MEDICATIONS: He is on Amaryl 4 mg daily, Ativan 2 mg a.m. and at bedtime, Calan 40 mg 3 times a day, Coumadin 8 mg will be given, trazodone 200, mg at bedtime, DuoNeb q. hours p.r.n., insulin cove rage, potassium 20 mEq daily, digoxin 0.125 mg daily, Lasix 40 mg twice a day, Levemir 15 units subQ twice a day, Lipitor 40 mg daily, metoprolol tartrate is at 25 mg twice a day, Seroquel 25 mg at bedt aracelis, Singulair 10 mg daily, Wellbutrin 75 mg twice a day. LABORATORY DATA: Shows hemoglobin 14.3, hematocrit 43.7, WBC 7.7, and platelet count is 142. INR is 2.53. CMP shows sodium 144, potassium 4.0, chloride 97, bicarbonate 38, BUN 21, creatinine 0.8, glu cose 129, calcium is 9.3. AST 671 and ALT 1161. Alkaline phosphatase is 85. Albumin is 3.7. IMPRESSION AND PLAN: Cardiomyopathy with decreased left ventricular function, atrial fibrillation, c hronic obstructive lung disease, obstructive sleep apnea syndrome, diabetes, hypertension, obesity, r enal insufficiency, which is improved; adjustment disorder, noncompliant with CPAP/BiPAP. Spoke to [facility] staff, recommended CPAP use while sedated or sleepy. Keep head elevated at 45 degree. Carefu l with sedation. Continue bronchodilator. 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 Kristen genia followed by cardiology as well as psychiatry. Thank you and will follow with you. Tia Godinez MD cc: [phone] TT: 05/28/2016 17:38:54 Confirmation # [id number] Dictation # [id number] dn
--- NOTE | 2016-05-28 21:41 | CP.PCM.PN ---
Subjective - Date & Time of Evaluation Date of Evaluation: 05/28/16 Time of Evaluation: 21:40 - Subjective Subjective: Agitated, combative. Has order for ativan 2 mg IV , not given. Rx, Geodon 20 mg IM x 1. Objective - Vital Signs/Intake and Output Vital Signs (last 24 hours): Temp Pulse Resp BP Pulse Ox 98.2 F 86 20 173/102 H 96 05/28/16 18:00 05/28/16 18:00 05/28/16 18:00 05/28/16 18:00 05/28/16 06:00 - Medications Medications: Current Medications Albuterol/Ipratropium (Duoneb 3 Mg/0.5 Mg (3 Ml) Ud) 3 ml IH [id number] PRN PRN Reason: Shortness of Breath Last Admin: 05/24/16 20:14 Dose: 3 ml Atorvastatin Calcium (Lipitor) 40 mg PO DIN [facility] Last Admin: 05/28/16 17:16 Dose: 40 mg Bupropion HCl (Wellbutrin) 75 mg PO BID [facility] Last Admin: 05/28/16 17:17 Dose: 75 mg Digoxin (Lanoxin) 0.125 mg PO 1400 [facility] Last Admin: 05/28/16 15:43 Dose: 0.125 mg Furosemide (Lasix) 40 mg IV BID [facility] Last Admin: 05/28/16 17:15 Dose: Not Given Glimepiride (Amaryl) 4 mg PO DAILY [facility] Last Admin: 05/28/16 10:25 Dose: Not Given Insulin Detemir (Levemir) 50 unit SC BID [facility] Last Admin: 05/28/16 17:16 Dose: Not Given Insulin Human Regular (Humulin R High) 0 units SC ACHS [facility] PRN Reason: Protocol Last Admin: 05/28/16 17:15 Dose: Not Given Lorazepam (Ativan) 2 mg PO AMHS [facility] PRN Reason: Protocol Last Admin: 05/28/16 10:25 Dose: 2 mg Metoprolol Tartrate (Lopressor) 25 mg PO BID [facility] Last Admin: 05/28/16 17:16 Dose: 25 mg Montelukast Sodium (Singulair) 10 mg PO DAILY [facility] Last Admin: 05/28/16 10:27 Dose: 10 mg Potassium Chloride (K-Dur 20 Meq Er Tab) 20 meq PO BRK [facility] Last Admin: 05/28/16 10:32 Dose: 20 meq Quetiapine Fumarate (Seroquel) 25 mg PO HS [facility] PRN Reason: Protocol Trazodone HCl (Desyrel) 200 mg PO HS [facility] Last Admin: 05/27/16 22:10 Dose: 200 mg Verapamil HCl (Calan Tab) 40 mg PO TID [facility] Last Admin: 05/28/16 17:17 Dose: 40 mg Warfarin Sodium (Coumadin) 8 mg PO 1800 [facility] PRN Reason: Protocol Last Admin: 05/28/16 17:14 Dose: 8 mg - Labs Labs: 05/28/16 11:59 05/28/16 11:59 PT 27.3 Seconds (9.9-11.8) H 05/28/16 12:00 INR 2.53 (0.93-1.08) H 05/28/16 12:00 APTT 25.2 Seconds (23.7-30.8) 05/22/16 15:00
--- NOTE | 2016-05-29 04:27 | CP.PCM.PN ---
Subjective - Date & Time of Evaluation Date of Evaluation: 05/29/16 Time of Evaluation: 04:24 - Subjective Subjective: Earlier I had ordered ativan 4 mg IV for agitation. Patient was seen at bedside.He was agitated.Trying to get out of bed. He is screaming, trying to get out of bed. 55 year old white male was admitted with sob. Has PMH of CHF, COPD,morbid obesity, DM II , atrial fibrillation, diabetic neuropathy. Objective - Vital Signs/Intake and Output Vital Signs (last 24 hours): Temp Pulse Resp BP Pulse Ox 98.2 F 86 20 173/102 H 96 05/28/16 18:00 05/28/16 18:00 05/28/16 18:00 05/28/16 18:00 05/28/16 06:00 - Medications Medications: Current Medications Albuterol/Ipratropium (Duoneb 3 Mg/0.5 Mg (3 Ml) Ud) 3 ml IH [id number] PRN PRN Reason: Shortness of Breath Last Admin: 05/24/16 20:14 Dose: 3 ml Atorvastatin Calcium (Lipitor) 40 mg PO DIN [facility] Last Admin: 05/28/16 17:16 Dose: 40 mg Bupropion HCl (Wellbutrin) 75 mg PO BID [facility] Last Admin: 05/28/16 17:17 Dose: 75 mg Digoxin (Lanoxin) 0.125 mg PO 1400 [facility] Last Admin: 05/28/16 15:43 Dose: 0.125 mg Furosemide (Lasix) 40 mg IV BID [facility] Last Admin: 05/28/16 17:15 Dose: Not Given Glimepiride (Amaryl) 4 mg PO DAILY [facility] Last Admin: 05/28/16 10:25 Dose: Not Given Insulin Detemir (Levemir) 50 unit SC BID [facility] Last Admin: 05/28/16 17:16 Dose: Not Given Insulin Human Regular (Humulin R High) 0 units SC ACHS [facility] PRN Reason: Protocol Last Admin: 05/29/16 00:55 Dose: Not Given Lorazepam (Ativan) 2 mg PO AMHS [facility] PRN Reason: Protocol Last Admin: 05/28/16 22:01 Dose: 2 mg Metoprolol Tartrate (Lopressor) 25 mg PO BID [facility] Last Admin: 05/28/16 17:16 Dose: 25 mg Montelukast Sodium (Singulair) 10 mg PO DAILY [facility] Last Admin: 05/28/16 10:27 Dose: 10 mg Potassium Chloride (K-Dur 20 Meq Er Tab) 20 meq PO BRK [facility] Last Admin: 05/28/16 10:32 Dose: 20 meq Quetiapine Fumarate (Seroquel) 25 mg PO HS [facility] PRN Reason: Protocol Last Admin: 05/28/16 22:02 Dose: 25 mg Trazodone HCl (Desyrel) 200 mg PO HS [facility] Last Admin: 05/28/16 22:01 Dose: 200 mg Verapamil HCl (Calan Tab) 40 mg PO TID [facility] Last Admin: 05/28/16 17:17 Dose: 40 mg Warfarin Sodium (Coumadin) 8 mg PO 1800 [facility] PRN Reason: Protocol Last Admin: 05/28/16 17:14 Dose: 8 mg - Labs Labs: 05/28/16 11:59 05/28/16 11:59 PT 27.3 Seconds (9.9-11.8) H 05/28/16 12:00 INR 2.53 (0.93-1.08) H 05/28/16 12:00 APTT 25.2 Seconds (23.7-30.8) 05/22/16 15:00 - Constitutional Appears: No Acute Distress - Head Exam Head Exam: ATRAUMATIC, NORMAL INSPECTION, NORMOCEPHALIC - Eye Exam Eye Exam: Normal appearance - ENT Exam ENT Exam: Normal External Ear Exam - Neck Exam Neck Exam: Normal Inspection - Respiratory Exam Respiratory Exam: NORMAL BREATHING PATTERN - Cardiovascular Exam Cardiovascular Exam: absent: JVD - GI/Abdominal Exam GI & Abdominal Exam: absent: Distended - Rectal Exam Rectal Exam: Deferred - Extremities Exam Extremities Exam: Normal Inspection - Back Exam Back Exam: NORMAL INSPECTION - Neurological Exam Neurological Exam: Alert - Psychiatric Exam Psychiatric exam: Agitated - Skin Skin Exam: Normal Color Assessment and Plan - Assessment and Plan (Free Text) Assessment: A/P: Agitation. COPD. CHF. Obesity. Ativan 4 mg IV x 1.
--- NOTE | 2016-05-29 07:01 | PN ---
DATE: 05/29/2016 SUBJECTIVE: The patient has no complaints of any chest pain or shortness of breath, no headaches. PHYSICAL EXAMINATION: VITAL SIGNS: Temperature is 97.6, pulse of 66, blood pressure 173/102, respirations 18. GENERAL: The patient comfortable, in no acute distress. HEENT: Anicteric sclerae. Moist mucosa. NECK: No JVD or adenopathy. CARDIAC: S1/S2. No murmurs. No rubs. Regular. RESPIRATORY: Clear to auscultation bilaterally. No wheezes, rales, or rhonchi. Good air entry. ABDOMEN: Bowel sounds are positive, soft, nontender, and nondistended. EXTREMITIES: No edema. Has 1+ pulses. LABS: Creatinine is 0.8. ASSESSMENT: 1. Delirium, improved. 2. Acute kidney injury, resolved. 3. Atrial fibrillation with rapid rate, improved. 4. Congestive heart failure secondary to diastolic dysfunction, resolved. 5. Dyslipidemia. 6. Chronic obstructive pulmonary disease. 7. Hypertension. 8. Diabetic neuropathy. 9. Hypomagnesemia. 10. Transaminitis, improved. 11. Obesity with mass of 44. PLAN: The patient continues to be confused overnight. He was given Ativan. He was screaming at tess es. The patient is followed by multiple consultants. He is on verapamil for his heart rate. He is on trazodone. The patient is continuing on digoxin. He is on insulin for his diabetes, on Lipitor f or his dyslipidemia. He is on Amaryl for his diabetes as well. He is on CPAP. The patient's LFTs h ave improved significantly. He has an INR that is therapeutic at 2.5. Axel Villagomez MD cc: [id number] TT: 05/29/2016 07:00:38 Confirmation # [id number] Dictation # [id number] tn
[2016-05-29] MEDS: Insulin Reg-HIGH-Coverage SC SCH ×4 (08:00→22:46)
[2016-05-29] MEDS: Potassium Chloride 20 mEq ER Tab PO SCH (08:01)
--- NOTE | 2016-05-29 08:34 | PN ---
DATE: 05/27/2016 REFERRING PHYSICIAN: Dr. Axel Villagomez. SUBJECTIVELY: This is lying in the bed. Family is at bedside. Early mortal and earlier today's even ts noted. At a point, the patient was agitated; ended up receiving Ativan. Presently sleepy, lethar gic, arousable. On nasal cannula. Short of breath with exertion. No chest pain. No nausea, no vom iting, no diarrhea. Does have leg swelling. OBJECTIVELY: In no acute distress. Temp is 98, heart rate is 98, respiratory rate is 20, blood pressure 135/70, pulse ox 94% on 2 L nasa l cannula. HENT: Moist mucous membranes. Crowded airway. NECK: Supple. No JVD. LUNGS: Has decreased breath sounds at bases. Prolonged expiratory phase. HEART: S1, S2, tachycardic. ABDOMEN: Soft, nontender. No organomegaly. EXTREMITIES: Does have edema. NEUROLOGICALLY: Sleepy, arousable. MEDICATIONS: He is on Amaryl 4 mg daily, Ativan 2 mg a.m. and at bedtime, verapamil 40 mg 3 times a day, Coumadin 8 mg given, trazodone 200 mg at bedtime, DuoNeb q. 6 hours, insulin coverage, potassium 20 mEq daily, digoxin 0.125 mg daily, Lasix 40 mg IV twice a day, Levemir units subQ twice a d ay, Lipitor 40 mg daily, metoprolol tartrate 25 mg twice a day. LABORATORY DATA: Shows hemoglobin 12.9, hematocrit 40.3, WBC 8.4, platelet is 141. INR 2.55. Blood gases was ordered by me; shows pH 7.39, pCO2 of 52, O2 of 68. That was on nasal cannula. After antonette t he was placed on BiPAP. Sodium 142, potassium 3.9, chloride 101, bicarbonate 34, BUN 31, creatinin e 1.0, glucose 98, calcium 8.9. AST 1371, ALT 1550, alk phos is 89, albumin is 3.4. IMPRESSION AND PLAN: Cardiomyopathy with decreased left ventricular function, atrial fibrillation, c hronic obstructive lung disease, obstructive sleep apnea syndrome, diabetes, hypertension, obesity, r esolving renal insufficiency, has a respiratory insufficiency. I spoke to nursing staff; also spoke to patient's son at bedside. All the questions answered. Reque sted replacement of CPAP while sleeping and sedated. Keep head elevated 45 degree. Careful with any sedation. Gastric prophylaxis. Continue beta rahat and calcium channel rahat, fall precaution. Follow up labs in the morning. Thank you and will follow with you. Tia Godinez MD cc: [phone] TT: 05/27/2016 20:34:34 Confirmation # [id number] Dictation # [id number] carla
--- NOTE | 2016-05-29 09:46 | PN ---
DATE: 05/29/2016 REASON FOR CONSULTATION AND FOLLOWUP: Shortness of breath, atrial fibrillation, rapid ventricular ra te, morbid obesity, acute kidney injury, CHF. BRIEF CLINICAL HISTORY: A 55-year-old morbidly obese male with a past medical history significant fo r congestive heart failure, hypertension, nonobstructive coronary artery disease, status post cardiac catheterization 2-3 times. Admitted with atrial fibrillation with rapid ventricular rate, shortness of breath and patient was given diuretics, went into acute kidney injury. That was on hold. Now, i s resolved. CHF also resolved. Now patient is very much confused, kicking the GRADE [employer] and cursing her t his morning. Denies any chest pain, shortness of breath. Lying flat on the bed, which is actually T rendelenburg position because of his choice, but no shortness of breath. PHYSICAL EXAMINATION: VITAL SIGNS: Temperature afebrile, heart rate 66, blood pressure 118/74. HEENT: PERRLA. Extraocular muscles intact. NECK: Supple. No carotid bruits. No thyromegaly. CHEST: Clear to auscultation. HEART: S1, S2 regular. ABDOMEN: Soft. EXTREMITIES: Clubbing, cyanosis negative. BLOOD WORKUP: WBC 7.7, hemoglobin 14, hematocrit 43.4, platelet count 142. Chemistry shows sodium 1 44, potassium 4, chloride 97, carbon dioxide 38, anion gap of 13, BUN 21, creatinine 0.8. Total prot ein 6.7, albumin 3.7, albumin/globulin ratio 1.2. IMPRESSION: Atrial fibrillation with rapid ventricular rate, resolved, congestive heart failure, imp roved, atrial fibrillation with rapid ventricular rate, improved, acute kidney injury, improved, morb id obesity, altered mental status, acute delirium, nonobstructive coronary artery disease, cardiomyop athy, mitral regurgitation, tricuspid regurgitation. Last echo shows ejection fraction 45%, dated . Lying flat. RECOMMENDATION: Started Lasix. We will change to p.o. Continue verapamil 3 times a day. Continue Coumadin. Goal is to keep INR between 2-2.5. Now, his INR is 2.53, which is therapeutic. Continue digoxin. We will continue metoprolol twice. We will change the Lasix to p.o. and once the mentation improves, patient can be discharged. Plan is to do radiofrequency ablation for atrial fibrillation after getting discharged. The patient will be scheduled to see Dr. Bonilla at [facility] for r adiofrequency ablation. Arrangement has been made. Tia Rajan MD cc: [phone] TT: 05/29/2016 09:45:40 Confirmation # [id number] Dictation # [id number] en
[2016-05-29] MEDS: Insulin Detemir 100 units/ml Vial (Levemir) SC SCH ×2 (10:20→18:53)
[2016-05-29] MEDS: Digoxin 125 mcg (0.125 mg) Tab PO SCH (13:43)
--- NOTE | 2016-05-29 14:53 | PN ---
DATE: 05/29/2016 Seen and examined at the bedside earlier this afternoon. The patient is on 1:1. The patient is refu sing diagnostics and blood work. Denies any nausea, vomiting, or abdominal pain. No shortness of br eath or chest pain. VITAL SIGNS: Temperature is 97.6, blood pressure 119/74, respirations 18, 98 on room air. BLOOD WORK: The patient refused a.m. labs this morning. PHYSICAL EXAMINATION: HEENT: Sclerae are anicteric. NECK: Supple. CARDIAC: S1, S2. LUNGS: Decreased breath sounds with good air entry, no rales or wheeze. ABDOMEN: With bowel sounds, softly obese and nontender. ASSESSMENT AND PLAN: This patient is here with atrial fibrillation with rapid RVR, which is improved , as well as congestive heart failure. He was noted to have elevated LFTs, which is probably seconda ry to shock liver. He had an episode of hypotension around 3/9 initially. Likely is secondary to sh ock liver. Rule out any drug-induced hepatitis. We have discontinued his Lipitor for now. We will also put Coumadin on hold for now until we are able to get updated PT/INR as patient's liver enzymes are elevated. The patient is refusing all blood work. Continue his diet as tolerated. He is curren tly on verapamil, potassium, Lopressor, Ativan, Lasix. He is pending psychiatric evaluation. The randi barba has been refusing all his medications today. Abdominal ultrasound was requested. The patient is refusing all tests. Discussed with nursing staff regarding Coumadin as well as Dr. Villagomez. The patient was seen and case discussed with Dr. Candelario. Will continue to monitor LFTs and watch farida ent closely. Sheryl FERRARI cc: [phone] TT: 05/29/2016 14:52:51 Confirmation # [id number] Dictation # [id number] jie
--- NOTE | 2016-05-29 21:28 | PN ---
DATE: 05/29/2016 REFERRING PHYSICIAN: Dr. Axel Villagomez SUBJECTIVE: The patient is lying in the bed under 1:1 supervision, awake, alert, wants to leave. N o headache, no rhinitis, no nausea, no vomiting, no diarrhea. Decreased leg swelling. OBJECTIVE: GENERAL: No acute distress. VITAL SIGNS: Temp is 98, heart rate 160, respiratory rate is 20, blood pressure 135/101, pulse ox is 98% on room air. HEENT: Moist mucous membranes. Crowded airway. Mallampati score is 4. NECK: Supple. No JVD. LUNGS: Has a fair airflow with few rhonchi. HEART: S1 and S2. ABDOMEN: Soft, nontender. No organomegaly. EXTREMITIES: Trace edema. NEUROLOGIC: Awake, alert, follows simple command. MEDICATIONS: He is on Amaryl 4 mg daily, Ativan 2 mg twice a day, also has Ativan 2 mg IV q. 6 hour s p.r.n. for agitation, verapamil 40 mg 3 times a day, Coumadin 8 mg, which is on hold, trazodone 50 mg at bedtime, DuoNeb q. 6 hours, Geodon 10 mg q. 8 hours p.r.n., insulin coverage, potassium 20 mEq daily, digoxin 0.125 mg daily, Lasix 40 mg twice a day, Levemir is at 50 units subQ twice a day, meto prolol tartrate 25 mg twice a day, Seroquel 50 mg at bedtime, Singulair 10 mg daily. LABORATORY DATA: Tests are reviewed. INR yesterday was 2.53. Blood sugar is 199. IMPRESSION AND PLAN: Cardiomyopathy with decreased LV dysfunction with atrial fibrillation, chronic obstructive lung disease, obstructive sleep apnea syndrome, diabetes, hypertension, obesity, renal in sufficiency. From a Pulmonary point of view, doing okay. Encourage BiPAP use. Keep bed at 45 degre e. Careful with sedation. Inhaled bronchodilators, diuretics, as per cardiology. Anticoagulation. Fall precaution. Follow up electrolytes and iron in the morning. Thank you and we will follow with you. Tia Godinez MD cc: [phone] TT: 05/29/2016 21:27:13 Confirmation # [id number] Dictation # [id number] ln
[2016-05-29] MEDS ORDERED: oxyCODONE 10 mg Immediate Release Tab PO PRN (21:30)
[2016-05-30 06:21] LABS: INR 2.94 (0.93-1.08)
[2016-05-30 06:57] LABS: ALB/GLOB RATIO 1.2 (1.1-1.8); ALKALINE PHOSPHATASE 78 U/L (38-133); ALT/SGPT 543 U/L (7-56); AST/SGOT 134 U/L (15-59); BILIRUBIN,TOTAL 1.3 mg/dL (0.2-1.3); BLOOD UREA NITROGEN 19 mg/dL (7-21); CALCIUM 9.1 mg/dL (8.4-10.5); CARBON DIOXIDE 36 mmol/L (21-33); CHLORIDE 99 mmol/L (98-107); GFR AFRICAN-AMERICAN > 60; GLUCOSE,RANDOM 143 mg/dL (70-110); PHOSPHOROUS 3.2 mg/dL (2.5-4.5); POTASSIUM 3.9 mmol/L (3.6-5.0); SODIUM 142 mmol/L (132-148)
--- NOTE | 2016-05-30 09:12 | PN ---
DATE: 05/29/2016 REASON FOR CONSULTATION AND FOLLOWUP: Shortness of breath, atrial fibrillation with rapid ventricula r rate, morbid obesity, acute kidney injury, CHF. BRIEF CLINICAL HISTORY: A 55-year-old morbidly obese male with past medical history significant for congestive heart failure, hypertension, nonobstructive coronary artery disease, status post cardiac c atheterization 2-3 times, admitted with atrial fibrillation with rapid ventricular rate and shortness of breath. The patient is getting diuretics went into acute kidney injury. Lasix was on hold. Flu id was given and the CHF resolved. The patient started back on IV fluid. The patient is confused, c ursing and kicking ____the [employer] and is delirious. Now, the patient is in 563, bed 1. Denies any ches t pain, shortness of breath, any palpitation. PHYSICAL EXAMINATION: VITAL SIGNS: Temperature afebrile, heart rate 60, blood pressure 135/101. HEENT: PERRLA. Extraocular muscles intact. NECK: Supple. No carotid bruits. No thyromegaly. CHEST: Clear to auscultation. HEART: S1, S2 regular. ABDOMEN: Soft. EXTREMITIES: Clubbing and cyanosis negative. LABORATORY DATA: Blood workup as of yesterday, WBC , hemoglobin 14, hematocrit 43.4, platelet c ount 142, hemoglobin 14.0. Repeat chemistry on sodium 141, potassium 4, chloride 97, carbon renaldo xide 38, anion gap of 13, BUN 21, creatinine 0.8. IMPRESSION: Decompensated congestive heart failure, acute on chronic secondary to systolic dysfuncti on, morbid obesity, body mass index 41.4 kg/m2, history of atrial fibrillation with rapid ventricular rate, status post cardiac catheterization twice, nonobstructive coronary artery disease, ejection fr action 25% by last echo on 06/10/2015, acute kidney injury improved, morbid obesity. RECOMMENDATION: Start Lasix, we will change to p.o. Continue verapamil 3 times a day. Continue Cou madin, goal is to keep INR from 2 to 2.5. Acute delirium. Once the patient's mentation is improved, the patient will be discharged and follow up outpatient with Dr. Bonilla at [facility] for rad iofrequency ablation for atrial fibrillation. Discussed with the patient. We will follow with you. Thank you, , for providing the opportunity in taking care of the patient. Tia Rajan MD cc: [id number] TT: 05/30/2016 00:08:13 Confirmation # [id number] Dictation # [id number] in 05/30/2016 08:12:28
[2016-05-30] MEDS: Potassium Chloride 20 mEq ER Tab PO SCH (09:37)
[2016-05-30] MEDS: Insulin Reg-HIGH-Coverage SC SCH ×4 (09:37→22:45)
[2016-05-30] MEDS: Insulin Detemir 100 units/ml Vial (Levemir) SC SCH ×2 (09:38→17:32)
--- NOTE | 2016-05-30 10:25 | PN ---
DATE: 05/30/2016 DATE: 05/30/2016 SUBJECTIVE: The patient has no complaints of any chest pain, no shortness of breath, no headaches or dizziness. The patient says he thinks he is in [place]. He is wondering why he is not being d ischarged to go home. PHYSICAL EXAMINATION: VITAL SIGNS: Temperature is 97.8, pulse of 100. Blood pressure is 132/83, respirations 22. O2 satur ation 94%. GENERAL: The patient is comfortable, in no acute distress. HEENT: Anicteric sclerae. Moist mucosa. NECK: No JVD or adenopathy. CARDIAC: S1/S2. No murmurs. No rubs. Regular. RESPIRATORY: Clear to auscultation bilaterally. No wheezes, rales, or rhonchi. Good air entry. ABDOMEN: Bowel sounds are positive, soft, nontender, and nondistended. EXTREMITIES: No edema. Has 1+ pulses. LABORATORY DATA: White count of 7.7. Hemoglobin is 14, creatinine 0.9. ASSESSMENT: 1. Acute psychosis. 2. Delirium. 3. Acute kidney injury, resolved. 4. Atrial fibrillation with rapid rate, resolved. 5. Congestive heart failure secondary to diastolic dysfunction, resolved. 6. Dyslipidemia. 7. Chronic obstructive pulmonary disease. 8. Hypertension. 9. Diabetic neuropathy. 10. Hypomagnesemia. 11. Transaminitis. 12. Obesity with a body mass index of 41. PLAN: The patient is currently comfortable, is on lorazepam. He is going to continue with Coumadin for anticoagulation. The patient's INR is 2.9. He has been refusing some of his medications. He is on trazodone. He is on Lasix. The patient is on Levemir for his diabetes. He is on Seroquel, but he has not been taking his medications. He has an ultrasound of the abdomen that he is refusing. I did speak to Dr. Eli Garcia regarding the case. She is a psychiatrist that is seeing the patien t. He may need injections of Geodon. Axel Villagomez MD cc: [id number] TT: 05/30/2016 10:24:41 Confirmation # [id number] Dictation # [id number] jn
--- NOTE | 2016-05-30 10:45 | PN ---
DATE: 05/30/2016 FOLLOWUP NOTE Shortly, the patient is a 55-year-old male with history of mood disorder due to a general m edical condition, and anxiety disorder due to general medical condition. The patient has self-report ed history of bipolar disorder. The patient is familiar to this singer songwriter from the previous admission t o the psychiatric inpatient unit, which took place at [facility] in 11/2015. The patient was seen initially yesterday for consultation of change in mental status. The patient mo st likely had multifactorial delirium. The patient presented to be paranoid, screaming, refusing to take medication to compare with the previous admission. This is not the patient's baseline. Please see my initial notes for more detailed information, which was dictated yesterday, but is not in the s ystem yet. The patient was followed up today. This singer songwriter started a small dose of Seroquel yesterday, but the p atient was refusing that, and Geodon was started 10 mg q. 8 hours. The patient did not get any medic ations so far, but the patient took trazodone. Today, the patient was seen at the morning time. The patient initially said that he is in the hospit al, then started to scream, "Why are you lying to me? I am in [place]." The patient said that there is some radio sending him messages through the banuelos, and the patient presented to be psychotic in delirium stage. The patient also was demanding to be discharged as soon as possible, but the pat ient was not even seen by physical therapist, and this singer songwriter is not sure how the patient can ambulat e. This singer songwriter had prolonged conversation with Dr. Villagomez today, and Dr. Villagomez shared the same impr ession with this singer songwriter. The patient is in delirium stage, and it is not safe for the patient to be discharged at the present moment. VITAL SIGNS: Seems to be stable, but temperature is 97.8. Pulse is 100, blood pressure 132/83. Oxy gen saturation is 94. MEDICATIONS: Reviewed. DuoNeb, digoxin, Lasix, Amaryl, Levemir, Humulin, Ativan 2 mg a.m. and at be dtime. The patient was refusing p.o. medication, but IV push was given to him. The patient is on At wicho 2 mg IV push q. 6 hours as needed for agitation. The patient got dose yesterday at 10:45. Lopr essor, oxycodone, K-Dur. Seroquel 50 mg at the nighttime was not given because the patient refused. Trazodone 50 mg at the nighttime was given. Geodon IM q. 8 hours as needed for severe agitation. T he patient did not need to have any ____. LABORATORY DATA: Labs reviewed. Chemistry reviewed. Toxicology reviewed. Serology reviewed. MENTAL STATUS EXAMINATION: The patient presented to be confused, intense eye contact, angry demeanor . Mood described, "I am fine and want to go home." Affect was constricted, irritable. Thought proc ess was disorganized. Speech was loud, underproductive. Thought content: The patient presented to be confused and seems to be in delirium stage. Insight and judgment are lacking. Impulses are not p redictable. IMPRESSION: Most likely, the patient has multifactorial delirium. The patient has history of conges tive heart failure, as well as obesity. The patient has acute kidney injury, atrial fibrillation, dy slipidemia. The patient also has hypertension, diabetic neuropathy, hypomagnesemia, transaminitis. This singer songwriter confirmed medications from the patient's pharmacy yesterday. Since the last admission in the last year, the patient was not taking any medications. [facility] - the last time the patient filled medication was 11/2015, Ativan 2 mg, trazodone 200 mg, and Wellbutrin 75 mg. This singer songwriter disc ontinued Wellbutrin because the patient was not taking it. We will monitor the patient and advise ac cordingly. At present moment, the patient is in acute delirium stage, which is slowly improving. Ca se was discussed with Dr. Villagomez and nursing staff. Should you have any questions, give me a call back. Eli Garcia MD cc: [id number] TT: 05/30/2016 10:44:38 Confirmation # [id number] Dictation # [id number] carla
[2016-05-30] MEDS: Digoxin 125 mcg (0.125 mg) Tab PO SCH (13:30)
[2016-05-30 13:32] VITALS: PULSE 99
--- NOTE | 2016-05-30 15:14 | PN ---
DATE: 05/29/2016 ADDENDUM: This is an addendum to the GI progress report dictated by Sheryl Sawant. The patient was seen and evaluated earlier. Also discussed with Dr. Villagomez. The patient is noncom pliant with blood tests. He refused ultrasound earlier. The patient denies any abdominal pain. Wan ts to go home. PHYSICAL EXAMINATION: ABDOMEN: Softly distended. No tenderness. EXTREMITIES: Bilateral edema present. Discussed with the patient at length regarding the importance of followup the blood workup. The farida ent is on Coumadin which has been on hold pending repeat LFTs at that time. The patient was on atorv astatin which has been placed on hold now. Close followup of the LFTs which probably could be relate d to the hypotensive event happened on 05/25. The concern is mainly he has an elevated ALT. Followup of the hepatitis profile and followup of the INR and the sonogram. Thank you very much for allowing us to participate in the care of the patient. Rose Candelario MD cc: [id number] TT: 05/30/2016 15:13:29 Confirmation # [id number] Dictation # [id number] tn
[2016-05-30 16:01] VITALS: RESP 20
--- NOTE | 2016-05-30 21:25 | PN ---
DATE: 05/30/2016 REFERRING PHYSICIAN: Dr. Axel Villagomez. SUBJECTIVE: He is sitting side of the bed, friend is at bedside. Night was unremarkable. Refused t o use CPAP last night. Used nasal cannula. No headaches, no rhinitis, no cough, no shortness of gayathri ath, no nausea, no vomiting, no diarrhea. Again, has some leg swelling. OBJECTIVE: GENERAL: No acute distress. VITAL SIGNS: Temperature is 98, heart rate is 95, respiratory rate is 20, blood pressure 160/88, pul se ox 97% on room air. HEENT: Moist mucous membranes. Crowded airway. Mallampati score is 4. NECK: Supple. No JVD. LUNGS: Has a fair airflow with few rhonchi. HEART: S1 and S2. ABDOMEN: Soft, nontender. No organomegaly. EXTREMITIES: Does have edema. NEUROLOGIC: Awake, alert, follows simple commands. MEDICATIONS: He is on Amaryl 4 mg daily, Ativan 2 mg p.o. a.m. and at bedtime, also Ativan 2 mg IV q . 6 hours p.r.n. for agitation, verapamil 40 mg 3 times a day, Coumadin 8 mg will be given tonight, t razodone 50 mg at bedtime, DuoNeb q. 4 hours p.r.n., Geodon 10 mg q. 8 hours p.r.n. for severe agitat ion, insulin coverage, potassium 20 mEq daily, digoxin 0.125 mg daily, Lasix 40 mg twice a day, Levem ir 50 units subQ twice a day, metoprolol tartrate 25 mg twice a day, oxycodone immediate release 10 m g q. 6 hours p.r.n., Seroquel 50 mg at bedtime, Singulair 10 mg daily. LABORATORY DATA: Shows today's INR 2.94. Sodium 142, potassium 3.9, chloride 99, bicarbonate 36, BU N 19, creatinine 0.9, glucose is 143, calcium is 9.1, phosphorus 3.2. AST 134, ALT of 543, alkaline phosphatase is 78, albumin is 3.3. IMPRESSION AND PLAN: Cardiomyopathy with decreased left ventricular function with atrial fibrillatio n, chronic obstructive lung disease, obstructive sleep apnea syndrome, diabetes, hypertension, obesit y, renal insufficiency. Pulmonary point of view, continue to encourage BiPAP. Careful with sedation . Keep head elevated at 45 degrees. Gastric prophylaxis. Anticoagulation. Fall precautions. Foll ow up electrolytes in the morning. We will follow with you. Tia Godinez MD cc: [id number] TT: 05/30/2016 21:25:02 Confirmation # [id number] Dictation # [id number] rn
--- NOTE | 2016-05-31 02:00 | PN ---
DATE: 05/30/2016 DATE OF SERVICE: 05/30/2016 SUBJECTIVE: This patient was seen and evaluated earlier and the patient is comfortable and denies an y abdominal pain, tolerating the diet. PHYSICAL EXAMINATION: VITAL SIGNS: Afebrile, blood pressure is 132/82, respirations 22, O2 sat is 95%. HEENT: Atraumatic, anicteric. NECK: Supple. HEART: S1, S2 heard. LUNGS: Bilateral air entry present. ABDOMEN: Soft. There is no tenderness. EXTREMITIES: Bilateral pitting pedal edema, mild present. LABORATORY DATA: LFTs showing downward trend. ALT is improving. IMPRESSION: Acute elevation of the enzymes, mainly transaminases, ALT elevation and now showing downward trend, m ost likely related to the shock liver. The patient has other comorbidities include chronic obstructi ve pulmonary disease, congestive heart failure, atrial fibrillation on Coumadin. The Coumadin has be en on hold as the INR remains elevated. We will continue to closely follow up. His other comorbidit ies include obesity, diabetic neuropathy, COPD, hypertension. We will continue to closely . Thank you very much for allowing us to participate in the care of this patient. Rose Candelario MD cc: [id number] TT: 05/31/2016 01:59:29 Confirmation # [id number] Dictation # [id number] tn
[2016-05-31 07:15] LABS: ALB/GLOB RATIO 1.2 (1.1-1.8); ALKALINE PHOSPHATASE 71 U/L (38-133); ALT/SGPT 392 U/L (7-56); AST/SGOT 69 U/L (15-59); BLOOD UREA NITROGEN 19 mg/dL (7-21); CALCIUM 8.9 mg/dL (8.4-10.5); CARBON DIOXIDE 36 mmol/L (21-33); CHLORIDE 98 mmol/L (98-107); GFR AFRICAN-AMERICAN > 60; GLUCOSE,RANDOM 119 mg/dL (70-110); POTASSIUM 3.6 mmol/L (3.6-5.0); SODIUM 141 mmol/L (132-148); TOTAL PROTEIN 6.1 g/dL (5.8-8.3)
[2016-05-31 07:33] LABS: INR 1.98 (0.93-1.08)
--- NOTE | 2016-05-31 07:33 | CON ---
DATE: 05/29/2016 HISTORY OF PRESENT ILLNESS: Shortly, the patient is a 55-year-old male with history of moo d disorder, history of being admitted to the psychiatric inpatient unit. Most recent was in 11/2015. The patient stayed in [facility] psychiatric inpatient unit only for ____ days. After that he was request ing to be discharged. The patient does not have history of psychosis and psychotic symptoms in the p ast. The patient was admitted on the medical floor for evaluation of COPD as well as congestive hear t failure, hypertension as well as patient complained of shortness of breath, dyspnea on exertion and chest discomfort worsening for the past week. Psych consult was called for evaluation of psychotic symptoms as well as confusion. The patient is refusing to take any medication, restless and agitated . The patient was seen today at the morning time. The patient presented to be alert, but disoriented. The patient does not remember this press writer. The patient does not know where he is. The patient said that he is in this press writer's house. There is no option to have a meaningful conversation with the randi barba. VITAL SIGNS: This press writer reviewed vital signs. Temperature is 97.6, pulse is 111, blood pressure 13 5/101. MEDICATIONS: Reviewed. DuoNeb, Wellbutrin 75 mg twice a day which should be discontinued because randi barba was noncompliant with that medication. The patient is also on digoxin, Lasix, Amaryl, Levemir, Ativan 2 mg IM and at bedtime, Lopressor, Singulair, Seroquel 25 mg at the nighttime which will be i ncreased to 50 mg at the nighttime. The patient also is on trazodone 200 mg at the nighttime which s hould be as needed only and dose will be decreased because the patient was not taking that medication . It could worsen confusion as well as in higher doses he could have restlessness, confusion and jessica tation. The patient is on verapamil, Coumadin and Geodon will be added on. LABORATORY DATA: Reviewed. Most recent was from today. Chemistry also reviewed. The patient has A ST and ALT elevated. Urinalysis showed protein and glucose. Toxicology: Digoxin is 1.0. At the ti me of admission, no toxicology was done. This press writer is not sure; maybe patient is withdrawing from some substances. PAST PSYCHIATRIC HISTORY: The patient was in psychiatric inpatient unit in 11/2015. The patient sta yed there only ____ days. After that, the patient was requesting to be discharged. This press writer call ed to [facility]. Last time the patient filled the prescription was in 2015: Ativan 2 mg, trazodo ne 200 mg as well as 75 mg of Wellbutrin prescribed by this press writer. MENTAL STATUS EXAMINATION: The patient is very confused, agitated, restless. The patient does not k now where he is, does not remember this press writer. Poor eye contact. Speech is disorganized. Mood cat cribed as, "I'm fine." Affect was flat and irritable. Thought process is disorganized, circumstanti al. Thought content: The patient presented to be psychotic as well as paranoid, guarded and very co nfused. Denied thoughts of harming himself or others. Insight and judgment are very impaired at pre sent moment. Impulses are not predictable. IMPRESSION: Most likely the patient has delirium stage related to multiple factors. The patient has multiple medical issues. Please see notes for more detailed information. The patient has history o f congestive heart failure, chronic obstructive pulmonary disease. The patient was admitted on the edical floor for dyspnea on exertion and retrosternal chest discomfort. The patient has LFTs elevate d. As per gastroenterology team, most likely patient has shock liver. PLAN: Continue current management. Medications were adjusted. Labs reviewed. Previous history was reviewed. This press writer implemented Geodon 10 mg IM q. 8 hours as needed for severe agitation. The p atient was on Seroquel and this press writer will increase the dose to 50 mg for delirium. The patient is on Ativan 2 mg a.m. and at bedtime. It has to be increased to at least 3 times a day. This press writer w ill place an order 2 mg of Ativan q. 6 hours as needed for agitation. We will monitor closely and ad vise accordingly. This press writer would like to emphasize the fact patient has history of mood disorder and major depressiv e disorder but no psychotic symptoms. Thank you very much for letting me participate in the care of your patient. Should you have any ques tions, give me a call back. Eli Garcia MD cc: [id number] TT: 05/29/2016 20:04:41 Confirmation # [id number] Dictation # [id number] tx 05/31/2016 06:33:05
--- NOTE | 2016-05-31 07:36 | CON ---
DATE: 05/28/2016 This patient was seen and evaluated earlier. Discussed with Dr. Velazquez at length. This is a 55-yea r-old morbidly obese patient with a past medical history of diastolic CHF, COPD, diabetes mellitus, c hronic diabetic neuropathy on warfarin, admitted to the Emergency Room with a 5 day history or shortn ess of breath. He had some cough. The patient was being treated for CHF, COPD. The patient had a _ ____ and shortness of breath on 05/25/2016. The patient also had a hypotensive episode. The patient now has elevated transaminases, AST of 1161, AST 671. The patient denies any abdominal pain. PAST MEDICAL HISTORY: As above and history of atrial fibrillation on Coumadin SURGICAL HISTORY: Significant for cardiac catheterization. FAMILY HISTORY: Positive for father had liver problem. Mother at the age of 42. He diaz s not remember the details. SOCIAL HISTORY: Ex-smoker, stopped about 4 years ago and he had a history of smoking about maybe 20 years. Denies alcohol use. REVIEW OF SYSTEMS: Positive as above, 10-point systems reviewed. PHYSICAL EXAMINATION: GENERAL: The patient is lying on the bed, not in acute distress. VITAL SIGNS: Temperature 97.6, blood pressure is 135/101. HEENT: Atraumatic, anicteric. NECK: Supple. HEART: S1, S2 heard. LUNGS: Bilateral air entry present. EXTREMITIES: No cyanosis, no clubbing, 1+ edema present. NEUROLOGIC: Alert, oriented. Moves all the extremities. LABORATORY DATA: AST 671. The ALT is 1161. The patient's LFTs, ALT was normal at 98, and I e valuation of numbers to 1238. The patient's subsequent repeat blood work on 11/26 was 1800. IMPRESSION: A 55-year-old patient with a diastolic dysfunction, congestive heart failure (CHF), hand straightener iveth obstructive pulmonary disease (COPD). RECOMMEND: 1. the transaminases reveal they were 1000 indicating only 3 differential diagnoses, most like ly drug induced. May be related to hypotension and ischemia. Other differential diagnosis includes ischemia. Would request for ADH level. 2. Followup of the ADH level. 3. Follow up with INR. Patient may benefit from the elective endoscopic evaluation. Thank you very much for allowing me to participate in the care of the patient. Rose Candelario MD cc: [id number] TT: 05/30/2016 08:26:11 Confirmation # [id number] Dictation # [id number] jn 05/31/2016 06:35:25
--- NOTE | 2016-05-31 07:36 | CON ---
DATE: 05/29/2016 This patient was seen and evaluated earlier on 05/29. This is delayed dictation. The patient was se en and discussed also with Dr. Velazquez. This 55-year-old patient with a past medical history of morbid obesity, diastolic congestive heart fa ilure, COPD, dyslipidemia, hypertension, diabetes mellitus, diabetic neuropathy on Coumadin, presente d with complaint. He had a complaint of cough, shortness of breath. He was being admitted wit h CHF and COPD. The patient had an acute episode of hypotension on 05/25/2016. The patient subseque ntly was found to have elevated hepatic enzymes. Mainly the ALT and AST was elevated; ALT more than AST. It was on 05/24/2016 the ALT was 21. On 05/25 it went up to 1238. Since then the patient ____ _. No complaints of any abdominal pain. The patient is noncompliant once he refuses the medication. Requested for a sonogram; not been done because the patient was refusing. OTHER PAST MEDICAL HISTORY: As above. SURGICAL HISTORY: Significant for cardiac cath. SOCIAL HISTORY: He was an ex-smoker. Denies any alcohol use. ALLERGIES: No known drug allergies. REVIEW OF THE SYSTEMS: Positive as above. Denies any abdominal pain. No chest pain. Shortness of breath better. The patient tolerating diet; wants to go home. On examination the patient is lying on the bed, not in acute distress. Temperature 97.5, blood pressure is 118/74, respiration is 20. HENT: Atraumatic, anicteric. NECK: Supple. HEART: S1, S2 heard. LUNGS: Bilateral air entry present, slightly reduced in the base. ABDOMEN: Softly distended. EXTREMITIES: Bilateral edema present. NEUROLOGIC: Alert, oriented. Moves all the extremities. LABORATORY DATA: ALT 1161, AST 671. Hemoglobin 12.9, hematocrit 40.3. IMPRESSION: This 55-year-old patient with multiple comorbidities. Diabetic neuropathy, , conge stive heart failure, chronic obstructive pulmonary disease. Had an episode of hypotension, following which his LFTs, mainly ALT, has gone up, and which is now slightly doing a downward trend. The farida ent has been on Coumadin, elevated INR. The likely cause for his elevated LFTs should include ischem ia, hypotensive episode could be the contributing factor. Would recommend at this point: 1. Followup of the LFTs. 2. Hepatitis profile. 3. LDH level. Will continue to closely follow up his care and suggest further management based on the clinical cour se. Rose Candelario MD cc: [id number] TT: 05/30/2016 16:57:27 Confirmation # [id number] Dictation # [id number] jn
[2016-05-31] MEDS: Insulin Reg-HIGH-Coverage SC SCH (08:05)
[2016-05-31 08:12] VITALS: TEMP 97.8; O2SAT 93
[2016-05-31] MEDS: Insulin Detemir 100 units/ml Vial (Levemir) SC SCH (09:00)
[2016-05-31 09:02] VITALS: BP 150/90; PULSE 100
--- NOTE | 2016-05-31 09:09 | DS ---
This is a 55-year-old male who had come into the hospital and was having palpitations. His palpitati ons have improved. He is awaiting follow up with EPS. The patient is not complaining of any headach es, no dizziness. He had CHF secondary to diastolic dysfunction. He was given IV diuretic therapy. He developed prerenal azotemia and had acute kidney injury. His diuretics were on hold and he was g iven IV fluids. His creatinine did improve. His renal function returned back to normal. During the hospital stay, the patient had some episodes of delirium. Initially, they were mild and then became severe. He also started having acute psychosis in the hospital as well. He was given medications t o help improve his symptoms. He initially was refusing medications. The patient started feeling wel l. He currently is awake and alert. He has good insight and judgment. He is asking about being dis charged to go home. I will await further input from psychiatry to make the final decision. PHYSICAL EXAMINATION: VITAL SIGNS: Temperature is 98.1, pulse of 95, blood pressure is 169/93, respirations 20, O2 saturat ion 97%. GENERAL: The patient comfortable, in no acute distress. HEENT: Anicteric sclerae. Moist mucosa. NECK: No JVD or adenopathy. CARDIAC: S1/S2. No murmurs. No rubs. Regular. RESPIRATORY: Clear to auscultation bilaterally. No wheezes, rales, or rhonchi. Good air entry. ABDOMEN: Bowel sounds are positive, soft, nontender, and nondistended. EXTREMITIES: No edema. Has 1+ pulses. ASSESSMENT: 1. Acute psychosis. 2. Delirium. 3. Acute kidney injury, resolved. 4. Atrial fibrillation with rapid rate. 5. Congestive heart failure, secondary to diastolic dysfunction. 6. Dyslipidemia. 7. Chronic obstructive pulmonary disease. 8. Hypertension. 9. Diabetic neuropathy. 10. Hypomagnesemia, improved. 11. Transaminitis. 12. Obesity with a body mass index of 41. PLAN: The patient is currently comfortable. Currently, the patient's LFTs are almost back to normal . He is receiving verapamil. He is going to continue his albuterol inhaler. He is on potassium rep lacement. I will discontinue his potassium at this point. He was given Geodon. He is on digoxin. He is receiving Lasix currently. He is on Seroquel for his psychosis. He is on oxycodone. His diab etes is controlled with his Amaryl. CONDITION: Stable. ACTIVITY: Increase as tolerated. FOLLOWUP: With Dr. Villagomez in 1 week. Follow up with EPS. Follow up with cardiology in 1-2 weeks. Axel Villagomez MD cc: [id number] TT: 05/31/2016 09:09:24 en
--- NOTE | 2016-05-31 09:41 | PN ---
DATE: 05/31/2016 The patient was followed up today. The patient presented to be alert and oriented, superficially visual coordinator perative, seems to be irritable and seems to be annoyed with all the questions. In regards of the randi barba's presentation, the patient is doing much better. The patient is less confused, slept through the night, participate in treatment plan, compliant with the medications. VITAL SIGNS: Stable. Pulse is still 100, blood pressure 150/90, respirations 20, oxygen saturation is 93%. The patient is off 1:1. MEDICATIONS: DuoNeb, digoxin, Lasix, Amaryl, Levemir. The patient is on Ativan 2 mg twice a day. A lso, patient is on oxycodone, Singulair, Lopressor, oxycodone, Seroquel was given to him 50 mg at the nighttime for delirium, verapamil, Coumadin, Geodon. The patient was not agitated and did not need to be on IM medication. LABORATORIES: From the , chemistry reviewed, much better. AST and ALT trending down. Reports reviewed. Discussed case with Dr. Villagomez yesterday. Discussed case with the nurse practit vonnie today, discussed treatment plan. The patient has future plans to be followed up with Dr. Edward herrera. At the same time, patient has followup appointment with Dr. East. The patient knows the phone number and the address for Dr. East. MENTAL STATUS EXAMINATION: The patient alert and oriented, superficially cooperative, irritable. In termittent eye contact. Speech was minimal, 1 word answers. Thought process is more coherent, goal directed. Thought content: The patient denied visual, auditory, tactile hallucinations. Denied par anoid ideations. The patient denied thoughts of harming himself or others. Mood described as "I fee l better". Affect was irritable and flat, mood congruent. Insight and judgment improving. Impulses are well controlled. IMPRESSION: The patient has questionable history of bipolar disorder, most likely it is type 2. At present moment, patient was found to have delirium which is improving very much so, a lot of medical issues. Please see medical team notes for more detailed information. PLAN: The patient has a followup appointment with Dr. East as well as with Dr. Villagomez. Mental st atus is improving very much. The patient is coherent and thought process is more organized. The pat ient denied any thoughts of harming himself or others. Psychotic symptoms are resolving. The patien t is aware of recommendations. The patient needs to continue Seroquel for 1 week to help with deliri um. Also, patient will be continued on Ativan as well as trazodone. Case was discussed with nurse justino kwon, nursing staff as well as Dr. Villagomez. Should you have any questions, give me a call ba ck. The patient deemed not to be in danger to self or others. Thank you very much for letting me participate in care of your patient. Eli Garcia MD cc: [id number] TT: 05/31/2016 09:40:48 Confirmation # [id number] Dictation # [id number] en
[2016-05-31] MEDS ORDERED: Potassium Chloride 20 mEq ER Tab PO ONE (10:50)
--- NOTE | 2016-05-31 11:12 | PN ---
DATE: 05/31/2016 REASON FOR CONSULTATION AND FOLLOWUP: Shortness of breath, atrial fibrillation with rapid rate, now controlled, morbid obesity, altered mental status, acute kidney injury, CHF, acute kidney injury reso lved. BRIEF CLINICAL HISTORY: A 55-year-old morbidly obese male with past medical history significant for congestive heart failure, hypertension, nonobstructive coronary artery disease, status post catheteri zation 2-3 times. Admitted with atrial fibrillation with rapid ventricular rate, acute kidney injury . The patient was on 3R. Altered mental status and acute delirious. Now, patient is stable. PHYSICAL EXAMINATION: VITAL SIGNS: Temperature afebrile, heart rate 100, blood pressure 150/90. HEENT: PERRLA. Extraocular muscles intact. NECK: Supple. No carotid bruits. No thyromegaly. CHEST: Clear to auscultation. HEART: S1, S2 regular. ABDOMEN: Soft. EXTREMITIES: Clubbing, cyanosis negative. BLOOD WORKUP: INR 1.98 today. Chemistry, 141 sodium, potassium 3. , chloride , carbon diox carmenza 36, anion gap of 11, BUN 19, creatinine 1.0. IMPRESSION: Decompensated congestive heart failure, acute on chronic, secondary to systolic dysfunct ion, tricuspid regurgitation, morbid obesity, atrial fibrillation, difficult to control heart r ate, chronic obstructive pulmonary disease. RECOMMENDATION: Supplement potassium. Continue verapamil 40 mg 3 times a day, continue anticoagulat ion, continue digoxin, continue metoprolol. Upon discharge, patient will be followed next week to [facility], Dr. Bonilla, and for radiofrequency ablation. We will follow with you. Thank you, Dr. Villagomez, for providing us the opportunity in taking care of the patient. We will giv e K-Dur 40 mEq before the patient goes home. Tia Rajan MD cc: [id number] TT: 05/31/2016 11:11:59 Confirmation # [id number] Dictation # [id number] en
--- NOTE | 2016-06-01 08:22 | CP.PCM.PCO ---
Physician Communication Note - Physician Communication Note Physician Communication Note: pt was discharged
== END 2016-05-31 11:36 | disposition home or self-care (01) | DRG 291 ==
LOC: ED 14:00 → ERH 15:47 → 2RSO 20:56 → 2RNO 05-25 15:31 → 5RNO 05-29 18:49
PROVIDERS: ADMIT Internal Medicine Nephrology; ATTEND Internal Medicine Nephrology
DX: I50.43 Acute on chronic combined systolic (congestive) and diastolic (congestive) heart failure (principal); K72.00 Acute and subacute hepatic failure without coma; G93.41 Metabolic encephalopathy; N17.9 Acute kidney failure, unspecified; E87.3 Alkalosis; Z68.41 Body mass index [BMI] 40.0-44.9, adult; E11.42 Type 2 diabetes mellitus with diabetic polyneuropathy; I08.1 Rheumatic disorders of both mitral and tricuspid valves; Z68.42 Body mass index [BMI] 45.0-49.9, adult; F23 Brief psychotic disorder; I42.9 Cardiomyopathy, unspecified; I73.9 Peripheral vascular disease, unspecified; I48.2 Chronic atrial fibrillation; R09.02 Hypoxemia; J44.9 Chronic obstructive pulmonary disease, unspecified; K21.9 Gastro-esophageal reflux disease without esophagitis; E66.01 Morbid (severe) obesity due to excess calories; E78.5 Hyperlipidemia, unspecified; E83.42 Hypomagnesemia; F10.10 Alcohol abuse, uncomplicated; F31.9 Bipolar disorder, unspecified; F43.20 Adjustment disorder, unspecified; G47.33 Obstructive sleep apnea (adult) (pediatric); H91.90 Unspecified hearing loss, unspecified ear; Z72.0 Tobacco use; I11.0 Hypertensive heart disease with heart failure; I16.0 Hypertensive urgency; I25.10 Atherosclerotic heart disease of native coronary artery without angina pectoris; I48.0 Paroxysmal atrial fibrillation; K59.00 Constipation, unspecified; Z79.01 Long term (current) use of anticoagulants; Z79.899 Other long term (current) drug therapy; Z87.01 Personal history of pneumonia (recurrent); Z91.14 Patient's other noncompliance with medication regimen; Z91.19 Patient's noncompliance with other medical treatment and regimen; Z98.84 Bariatric surgery status; Z87.891 Personal history of nicotine dependence; R41.0 Disorientation, unspecified; R74.0 Nonspecific elevation of levels of transaminase and lactic acid dehydrogenase [LDH]; R51 Headache; M79.2 Neuralgia and neuritis, unspecified; R14.3 Flatulence

== ENCOUNTER 2016-06-19 19:27 | Observation (INO) | payer MEDICARE, OTHER ==
[2016-06-19 19:27] VITALS: PULSE 99
[2016-06-19 19:40] VITALS: BMI 41.0
[2016-06-19] MEDS ORDERED: diltiaZEM IVPB 100mg in NS 100 ML IV PRN ×2 (19:42→21:03)
[2016-06-19 19:47] LABS: ADD MANUAL DIFF? NO
[2016-06-19 19:50] LABS: BASO # 0.07 K/mm3 (0.0-2.0); BASO % 0.8 % (0.0-3.0); EOS # 0.1 (0.0-0.7); GRAN % 71.5 % (50.0-68.0); HEMATOCRIT 43.8 % (42.0-52.0); LYMPH # 1.9 (1.2-3.4); LYMPH % 21.3 % (22.0-35.0); MEAN CORPUSCULAR HEMOGLOBIN 28.3 pg (25.0-35.0); MEAN CORPUSCULAR HGB CONC 33.3 g/dl (31.0-37.0); MEAN PLATELET VOLUME 10.4 fl (7.0-11.0); MONO # 0.5 (0.1-0.6); MONO % 5.4 % (1.0-6.0); PLATELET COUNT 180 10^3/uL (120.0-450.0); RED CELL DISTRIBUTION WIDTH 15.5 % (11.5-14.5); WHITE BLOOD COUNT 8.8 10^3/ul (4.5-11.0)
[2016-06-19 20:03] LABS: VENOUS BLOOD GAS BASE EXCESS -0.8 mmol/L (0.0-2.0); VENOUS BLOOD PH 7.36 (7.32-7.43)
[2016-06-19 20:07] LABS: ALB/GLOB RATIO 1.4 (1.1-1.8); ALKALINE PHOSPHATASE 81 U/L (38-133); ALT/SGPT 18 U/L (7-56); AST/SGOT 26 U/L (15-59); BILIRUBIN,TOTAL 1.4 mg/dL (0.2-1.3); BLOOD UREA NITROGEN 11 mg/dL (7-21); CALCIUM 9.2 mg/dL (8.4-10.5); CARBON DIOXIDE 25 mmol/L (21-33); CHLORIDE 101 mmol/L (98-107); GFR AFRICAN-AMERICAN > 60; GLUCOSE,RANDOM 133 mg/dL (70-110); POTASSIUM 4.1 mmol/L (3.6-5.0); SODIUM 140 mmol/L (132-148); TOTAL PROTEIN 7.1 g/dL (5.8-8.3)
[2016-06-19 20:09] LABS: INR 1.34 (0.93-1.08); PARTIAL THROMBOPLASTIN TIME 25.4 Seconds (23.7-30.8)
[2016-06-19 20:18] LABS: TROPONIN I 0.06 ng/mL
[2016-06-19] MEDS: Insulin Detemir 100 units/ml Vial (Levemir) SC SCH (21:30)
[2016-06-19] MEDS ORDERED: Non Formulary Medication (Quetiapine [Seroquel] 50 MG) PO SCH (22:00)
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
[2016-06-20] MEDS: Insulin Reg-HIGH-Coverage SC SCH ×3 (01:13→12:26)
[2016-06-20 03:17] LABS: VENOUS BLOOD GAS BASE EXCESS 0.1 mmol/L (0.0-2.0); VENOUS BLOOD PH 7.36 (7.32-7.43)
[2016-06-20 04:10] VITALS: RESP 18
--- NOTE | 2016-06-20 06:08 | CP.PCM.PN ---
Subjective - Date & Time of Evaluation Date of Evaluation: 06/20/16 Time of Evaluation: 06:07 - Subjective Subjective: Nurse calls and tells :BP 76/48 HR 79/min afebrile, asymptomatic , on cardizem drip. Patient is seen at bedside. Sitting in bed.Not in acute distress.Alert, oriented. This 55 year old white male was admitted with chest pain. Has PMH of HTN,atrial fibrillation, obesity, DM II, HLD, COPD, CHF, coronary stent placement, diabetic neuropathy. Denies chest pain, sob, nausea,sweating , palpitation. Objective - Vital Signs/Intake and Output Vital Signs (last 24 hours): Temp Pulse Resp BP Pulse Ox 97.3 F L 80 18 103/72 96 06/20/16 03:30 06/20/16 03:30 06/20/16 03:30 06/20/16 03:30 06/20/16 03:30 Intake and Output: 06/19/16 06/20/16 18:59 06:59 Intake Total 120 Output Total 0 Balance 120 - Medications Medications: Current Medications Atorvastatin Calcium (Lipitor) 40 mg PO DIN [facility] Digoxin (Lanoxin) 0.25 mg PO DAILY [facility] Furosemide (Lasix) 40 mg PO BID [facility] Glimepiride (Amaryl) 4 mg PO DAILY [facility] diltiaZEM IVPB 100mg in NS (Cardizem 100mg In Ns) 100 mls @ 10 mls/hr IV .Q10H PRN; Protocol; 10 MG/HR PRN Reason: TITRATE PER MD ORDER Last Admin: 06/19/16 21:26 Dose: 10 mls/hr Insulin Detemir (Levemir) 40 unit SC BID [facility] Last Admin: 06/19/16 21:30 Dose: 40 unit Insulin Human Regular (Humulin R High) 0 units SC ACHS [facility] PRN Reason: Protocol Last Admin: 06/20/16 01:13 Dose: Not Given Lisinopril (Zestril) 20 mg PO DAILY [facility] Lorazepam (Ativan) 2 mg PO AMHS [facility] PRN Reason: Protocol Last Admin: 06/19/16 23:14 Dose: 2 mg Metformin HCl (Glucophage) 1,000 mg PO BID [facility] Last Admin: 06/19/16 21:30 Dose: 1,000 mg Metoprolol Tartrate (Lopressor) 25 mg PO BID [facility] Last Admin: 06/19/16 23:14 Dose: 25 mg Montelukast Sodium (Singulair) 10 mg PO DAILY [facility] Quetiapine Fumarate (Seroquel) 50 mg PO HS [facility] Last Admin: 06/19/16 22:00 Dose: Not Given Trazodone HCl (Desyrel) 200 mg PO HS [facility] Last Admin: 06/19/16 22:00 Dose: 200 mg Verapamil HCl (Calan Tab) 80 mg PO TID [facility] Warfarin Sodium (Coumadin) 7.5 mg PO [facility] PRN Reason: Protocol Last Admin: 06/19/16 22:00 Dose: 7.5 mg - Labs Labs: PT 14.5 Seconds (9.9-11.8) H 06/19/16 19:43 INR 1.34 (0.93-1.08) H 06/19/16 19:43 APTT 25.4 Seconds (23.7-30.8) 06/19/16 19:43 - Constitutional Appears: Well, No Acute Distress - Head Exam Head Exam: ATRAUMATIC, NORMAL INSPECTION, NORMOCEPHALIC - Eye Exam Eye Exam: Normal appearance - ENT Exam ENT Exam: Normal External Ear Exam - Neck Exam Neck Exam: Normal Inspection - Respiratory Exam Respiratory Exam: NORMAL BREATHING PATTERN - Cardiovascular Exam Cardiovascular Exam: absent: JVD - GI/Abdominal Exam GI & Abdominal Exam: absent: Distended - Rectal Exam Rectal Exam: Deferred - Extremities Exam Extremities Exam: Normal Inspection - Back Exam Back Exam: NORMAL INSPECTION - Neurological Exam Neurological Exam: Alert, Oriented x3 - Psychiatric Exam Psychiatric exam: Normal Affect, Normal Mood - Skin Skin Exam: Normal Color Assessment and Plan - Assessment and Plan (Free Text) Assessment: A/P:Hypotension secondary to cardizem. Atrial fibrillation with RVR. HTN. DM. Obesity. HLD. Hold cardizem. Observation. Continue management.
[2016-06-20 06:43] VITALS: TEMP 97.9
[2016-06-20 07:00] VITALS: O2SAT 94
--- NOTE | 2016-06-20 08:47 | RAD ---
HISTORY: sob COMPARISON: No prior. FINDINGS: LUNGS: No active pulmonary disease. PLEURA: No significant pleural effusion identified, no pneumothorax apparent. CARDIOVASCULAR: Mild cardiomegaly. Mild congestive change. OSSEOUS STRUCTURES: No significant abnormalities. VISUALIZED UPPER ABDOMEN: Normal. OTHER FINDINGS: None. IMPRESSION: No acute infiltrate.
[2016-06-20] MEDS ORDERED: Digoxin 250 mcg (0.25 mg) Tab PO SCH (10:00)
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
[2016-06-20] MEDS: Insulin Detemir 100 units/ml Vial (Levemir) SC SCH (10:44)
--- NOTE | 2016-06-20 11:10 | HP ---
HISTORY OF PRESENT ILLNESS: This is a 55-year-old male who comes into the hospital with complaints of chest pain. The patient has a past medical history significant for CHF, dyslipidemia, COPD, diabetes type 2. He says he has been having palpitations. He does have a history of atrial fibrillation. Patient was to followup with EPS and cardiology for his difficulty with atrial fibrillation and evaluation for ablation. This was arranged by Dr. Rajan. The patient denies any chills or headaches. No nausea, no vomiting, no abdominal pain, no flank pain, no dysuria, or frequency. He says he is just having a significant amount of palpitations and he was concerned. He says he has been taking his Coumadin although he has not had a recent INR since he was discharged from the hospital. He does have financial issues and so compliance has been a concern. ALLERGIES: QUETIAPINE. HOME MEDICATIONS: Lanoxin, Singulair, Levemir, Zestril, Dulera, Amaryl, insulin , digoxin. PAST MEDICAL HISTORY: 1. Diabetic neuropathy. 2. Atrial fibrillation on Coumadin. 3. Diabetes type 2. 4. Hypertension. 5. COPD. 6. Dyslipidemia. 7. CHF secondary to diastolic dysfunction. 8. Cardiac catheterization, post stent. FAMILY HISTORY: Father of liver disease at 66. Mother at 52. SOCIAL HISTORY: He quit smoking for 20 years. Denies alcohol or substance abuse. PHYSICAL EXAMINATION: VITAL SIGNS: Temperature 97.2. Pulse 80. Blood pressure 103/72. Respirations 18. O2 saturations 96%. HEENT: Anicteric sclerae. Moist mucosa. NECK: No JVD or adenopathy. CARDIAC: S1/S2. No murmurs. No rubs. Regular. RESPIRATORY: Clear to auscultation bilaterally. No wheezes, rales, or rhonchi. Good air entry. ABDOMEN: Bowel sounds are positive, soft, nontender, and nondistended. EXTREMITIES: No edema. Has 1+ pulses. LABS: White count of 8.8, hemoglobin 14.6, platelet count 180. INR is 1.3. He has a pH of 7.386, PiO2 of 95, PcO2 of 46. Chemistry shows sodium 140, potassium 4.1, creatinine 0.9, albumin 4.2. He has an at about 140 with PVCs and low voltage. Chest x-ray shows no infiltrates. ASSESSMENT: 1. _A fib with rapid rate. 2. Congestive heart failure secondary to diastolic dysfunction. 3. Chronic obstructive pulmonary disease. 4. Dyslipidemia. 5. Hypertension. 6. Diabetes type 2. 7. Diabetic neuropathy. 8. Dyslipidemia PLAN: The patient received Ativan. Will continue with Coumadin. I have increased his dosage to 7.5 mg. He is on trazodone. He is calcium channel rahat and digoxin. The patient is on Lasix daily. He is receiving Lipitor for dyslipidemia. He is on Seroquel. He should continue his Amaryl and metformin for his diabetes. Dr. Rajan to evaluate for cardiology and Dr. Godinez to see if he has obstructive sleep apnea. May need BiPAP at home. Axel Villagomez MD cc: [id number] TT: 06/20/2016 10:20:20 carla 06/20/2016 10:09:02 LEANDER
[2016-06-20 13:45] VITALS: BP 130/74; PULSE 63
--- NOTE | 2016-06-20 18:43 | CARD ---
APPROVED REPORT EKG Measurement Heart [id number] <Conclusion> Atrial fibrillation with rapid ventricular response with premature ventricular or aberrantly conducted complexes Low voltage QRS Cannot rule out Anterior infarct, age undetermined Abnormal ECG
== END 2016-06-20 13:34 | disposition home or self-care (01) ==
LOC: ED 19:27 → ERH 21:30 → 2RSO 06-20 03:03 → INTOOBSV 06-20 06:13 → OBSVTOIN 06-20 06:13
PROVIDERS: ADMIT Internal Medicine Nephrology; ATTEND Internal Medicine Nephrology
DX: I48.2 Chronic atrial fibrillation (principal); I25.10 Atherosclerotic heart disease of native coronary artery without angina pectoris; E66.01 Morbid (severe) obesity due to excess calories; J44.9 Chronic obstructive pulmonary disease, unspecified; I50.32 Chronic diastolic (congestive) heart failure; E11.40 Type 2 diabetes mellitus with diabetic neuropathy, unspecified; I11.0 Hypertensive heart disease with heart failure; E78.5 Hyperlipidemia, unspecified; Z79.01 Long term (current) use of anticoagulants; Z79.899 Other long term (current) drug therapy; Z87.891 Personal history of nicotine dependence; I42.9 Cardiomyopathy, unspecified; Z91.14 Patient's other noncompliance with medication regimen; Z87.01 Personal history of pneumonia (recurrent); Z59.9 Problem related to housing and economic circumstances, unspecified; F10.10 Alcohol abuse, uncomplicated; F31.9 Bipolar disorder, unspecified; G47.30 Sleep apnea, unspecified; H91.90 Unspecified hearing loss, unspecified ear; I08.1 Rheumatic disorders of both mitral and tricuspid valves; I73.9 Peripheral vascular disease, unspecified; K21.9 Gastro-esophageal reflux disease without esophagitis; Z95.5 Presence of coronary angioplasty implant and graft; Z98.84 Bariatric surgery status; J40 Bronchitis, not specified as acute or chronic; S80.812A Abrasion, left lower leg, initial encounter; S80.811A Abrasion, right lower leg, initial encounter; S60.511A Abrasion of right hand, initial encounter; S90.415A Abrasion, left lesser toe(s), initial encounter; F32.89 Other specified depressive episodes; Z87.898 Personal history of other specified conditions; Z87.892 Personal history of anaphylaxis; Z88.8 Allergy status to other drugs, medicaments and biological substances; Z91.018 Allergy to other foods; I95.2 Hypotension due to drugs; T46.1X5A Adverse effect of calcium-channel blockers, initial encounter; Z68.41 Body mass index [BMI] 40.0-44.9, adult
CPT/HCPCS: 71010; 80053; 82550; 82803; 82948; 83615; 83880; 84484; 85025; 85610; 85730; 93005; 96365; 96366; 96375; 99283; G0378; J1940

== ENCOUNTER 2016-06-29 00:58 | Inpatient (IN) | payer MEDICARE, OTHER ==
[2016-06-29] MEDS ORDERED: Levalbuterol 1.25 MG/3 ML Inhal Soln UD IH STA ×2 (01:25)
[2016-06-29] MEDS ORDERED: Ipratropium 0.02% Inhal Soln (0.5 mg/2.5 ml) UD IH STA ×2 (01:25→01:26)
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
[2016-06-29 01:41] LABS: ADD MANUAL DIFF? NO
[2016-06-29 01:54] LABS: BASO # 0.06 K/mm3 (0.0-2.0); BASO % 0.5 % (0.0-3.0); EOS # 0.1 (0.0-0.7); GRAN % 79.7 % (50.0-68.0); HEMATOCRIT 40.2 % (42.0-52.0); LYMPH # 1.2 (1.2-3.4); LYMPH % 11.1 % (22.0-35.0); MEAN CELL VOLUME 85.7 fL (80.0-105.0); MEAN CORPUSCULAR HEMOGLOBIN 28.4 pg (25.0-35.0); MEAN CORPUSCULAR HGB CONC 33.1 g/dl (31.0-37.0); MEAN PLATELET VOLUME 11.1 fl (7.0-11.0); MONO # 0.8 (0.1-0.6); MONO % 7.7 % (1.0-6.0); PLATELET COUNT 173 10^3/uL (120.0-450.0); RED CELL DISTRIBUTION WIDTH 16.2 % (11.5-14.5); WHITE BLOOD COUNT 10.9 10^3/ul (4.5-11.0)
[2016-06-29 01:57] LABS: ALB/GLOB RATIO 1.3 (1.1-1.8); ALKALINE PHOSPHATASE 75 U/L (38-133); ALT/SGPT 33 U/L (7-56); AST/SGOT 22 U/L (15-59); BILIRUBIN,TOTAL 1.7 mg/dL (0.2-1.3); BLOOD UREA NITROGEN 13 mg/dL (7-21); CALCIUM 8.6 mg/dL (8.4-10.5); CARBON DIOXIDE 27 mmol/L (21-33); CHLORIDE 99 mmol/L (98-107); GFR AFRICAN-AMERICAN > 60; GLUCOSE,RANDOM 186 mg/dL (70-110); LIPASE 12 U/L (23-300); MAGNESIUM 1.3 mg/dL (1.7-2.2); POTASSIUM 3.4 mmol/L (3.6-5.0); SODIUM 137 mmol/L (132-148); TOTAL PROTEIN 6.8 g/dL (5.8-8.3)
[2016-06-29] MEDS: diltiaZEM IVPB 100mg in NS 100 ML IV PRN ×2 (01:58→14:28)
[2016-06-29 02:01] LABS: INR 1.31 (0.93-1.08)
[2016-06-29 02:09] LABS: TROPONIN I 0.08 ng/mL
[2016-06-29] MEDS ORDERED: Potassium Chloride 40 mEq/30 ml LIQ UD PO STA (02:16)
[2016-06-29] MEDS ORDERED: Magnesium Sulfate 2 GM in Sodium Chloride 0.9% 100 ML IV ONE (02:16)
[2016-06-29] MEDS ORDERED: Heparin25000 units/250ml 1/2NS 250 ML IV STA (05:04)
[2016-06-29 05:11] VITALS: BMI 43.2
[2016-06-29 08:17] LABS: URINE BILIRUBIN NEGATIVE (NEGATIVE); URINE BLOOD NEGATIVE (NEGATIVE); URINE GLUCOSE (UA) NEGATIVE (NEGATIVE); URINE KETONE NEGATIVE (NEGATIVE); URINE LEUKOCYTE ESTERASE NEGATIVE Leu/uL (NEGATIVE); URINE PROTEIN TRACE mg/dL (<30 mg/dL); URINE UROBILINOGEN 0.2 E.U./dL (<1 E.U./dL)
[2016-06-29 08:26] LABS: URINE APPEARANCE CLEAR (CLEAR); URINE COLOR YELLOW (YELLOW)
--- NOTE | 2016-06-29 08:39 | US ---
HISTORY: Leg pain and swelling. Evaluate for DVT PHYSICIAN(S): John Paul Cannon MD. TECHNIQUE: Duplex sonography and color-flow Doppler with graded compression were used to evaluate the deep venous systems of both lower extremities. The exam is very limited by body habitus and edema. The lower femoral veins and tibial veins are not adequately seen. FINDINGS: The visualized deep venous systems of both lower extremities are sonographically normal and compressible. Normal wave forms and augmentation are seen. There is no sonographic evidence for deep venous thrombosis in the visualized segments of both lower extremities. IMPRESSION: No sonographic evidence for deep venous thrombosis in the visualized segments of both lower extremities. Very limited study.
[2016-06-29 08:48] LABS: URINE RBC NEGATIVE /hpf (0-2)
[2016-06-29 08:49] LABS: URINE BACTERIA TRACE (NEG); URINE EPITHELIAL CELLS 0 - 2 /hpf (0-5); URINE WBC 0 - 2 /hpf (0-6)
--- NOTE | 2016-06-29 09:25 | RAD ---
HISTORY: sob COMPARISON: No prior. FINDINGS: LUNGS: No active pulmonary disease. PLEURA: Small right pleural effusion. No left pleural effusion. No pneumothorax. CARDIOVASCULAR: Mild cardiomegaly. No congestive change. OSSEOUS STRUCTURES: No significant abnormalities. VISUALIZED UPPER ABDOMEN: Normal. OTHER FINDINGS: None. IMPRESSION: Cardiomegaly and small right pleural effusion.
--- NOTE | 2016-06-29 10:20 | CON ---
DATE: 06/29/2016 CHIEF COMPLAINT AND HISTORY OF PRESENT ILLNESS: The patient is a 55-year-old noncompliant diabetic with a history of CHF and atrial fibrillation. He presents with rapid AFib, shortness of breath, and chest pain. In addition, he noticed severe left foot pain and numbness, which started approximately 3 hours prior to his admission. His INR on admission was normal. PAST MEDICAL HISTORY: Significant for bipolar disorder, diabetes, dyslipidemia , COPD, and neuropathy. His pulse exam is difficult. His lower extremities are edematous. On the left , his femoral pulse is weakly palpable. His popliteal and distal pulses on the left are not palpable. His left foot is cool compared to the right. He can wiggle his forefoot. Sensation to light touch is decreased. There is delayed capillary refill on the left. His TREVON/PVR exam demonstrates bilateral popliteal, trifurcation and tibial disease. His left TREVON is severely abnormal, 0.46. When compared to a recent TREVON/PVR exam in 03/2016, there has been a significant change on the left. The study is consistent with a left popliteal embolus. The situation was discussed at length with the patient. I am not sure how well he understands the seriousness of his left lower extremity embolus. An arteriogram will be performed. At that point, consideration for endovascular or surgical revascularization will be debated. The potential risks, including amputation and were discussed with the patient. John Paul Cannon MD cc: [id number] TT: 06/29/2016 10:19:18 Confirmation # [id number] Dictation # [id number] MTDD
[2016-06-29] MEDS: Magnesium Oxide 400 mg Tab UD PO SCH ×3 (10:21→18:29)
[2016-06-29] MEDS: Insulin Detemir 100 units/ml Vial (Levemir) SC SCH ×2 (10:34→19:02)
--- NOTE | 2016-06-29 10:49 | HP ---
CHIEF COMPLAINT AND HISTORY OF PRESENT ILLNESS: This is a 55-year-old male who is coming in to the [facility] complaining of left leg pain. He says that he was having 10/10 pain and he is having difficu lty with ambulating, so he came in for further evaluation. He has a past medical history of atrial f ibrillation, CHF, COPD, diabetes and noncompliance. The patient says that he has been taking his Cou madin. He has a subtherapeutic INR at 1.3. He has been having difficult to control atrial fibrillat ion and was going to be seeing EPS/Dr. Bonilla for evaluation. The patient says that his left leg is feeling better. He says that he has a difficult time in walking on it because of the pain. He denie s any headaches or dizziness. He does have shortness of breath, especially with exertion. He has no nausea, no vomiting, no abdominal pain, no dysuria or frequency, no nocturia. He says he does get f atigued with minimal exertion. He has not been following up as an outpatient for his post-hospital [facility]. He does have financial issues and this is one of the things he complains about. REVIEW OF SYSTEMS: All of the review of symptoms are within normal limits except what is mentioned. ALLERGIES: QUETIAPINE. PAST MEDICAL HISTORY: Significant for: 1. Atrial fibrillation, on Coumadin. 2. Diabetic neuropathy. 3. Diabetes, type 2. 4. Hypertension. 5. Chronic obstructive pulmonary disease. 6. Dyslipidemia. 7. Morbid obesity with a body mass index of 43. 8. Congestive heart failure secondary to diastolic dysfunction. FAMILY HISTORY: Father of liver disease at 66. Mother at 52. SOCIAL HISTORY: He quit smoking about 20 years ago. He denies alcohol or substance abuse. He is a . He does have a son. PHYSICAL EXAMINATION: VITAL SIGNS: Temperature is 97.8, pulse of 140, blood pressure 139/105, respirations 16, O2 saturati on 95%. Height is 5 feet 7, weight is 276 pounds, BMI is 43. GENERAL: Patient lying in bed, flat, and in no apparent distress. HEAD AND NECK EXAM: Atraumatic, normocephalic. Conjunctivae are pink. Throat clear and mouth with moist mucosa. Oropharynx benign. EYES: Extraocular movements are intact. PERRLA. NECK: Supple. No JVD, thyromegaly, or adenopathy. No bruits. HEART: S1 and S2 ____. No murmurs, rubs, or gallops. LUNGS: Clear to auscultation bilaterally. No wheezing rales or rhonchi appreciated. No retraction s on exam. ABDOMEN: Soft, nontender, nondistended. Bowel sounds are positive in all quadrants. No rebound. No hepatosplenomegaly. EXTREMITIES: No cyanosis or clubbing. In the left leg, difficult to feel pulses. It is pale comp ared to the right leg. He does have 1+ edema. NEURO: No facial asymmetry, tongue is midline, no uvula deviation. Power is 5/5 in upper extremity and 5/5 in lower extremity. Sensation is normal in upper extremity and lower extremity. PSYCH: Awake, alert, oriented x3. No anxiety or depression symptoms. Good insight. Normal affec t. : No CVA tenderness VASCULAR: 2+ pulses in carotid and pedal pulses. SKIN: No erythema or abnormal nodules noted. SPINE: Normal curvature. LYMPHADENOPATHY: No anterior cervical or posterior cervical adenopathy. No inguinal adenopathy. LABORATORY DATA: INR is 1.3. White count of 10.9, hemoglobin is 13.3, platelet count is 173. Chemi stry shows sodium 137, potassium 3.4, creatinine 0.9, total albumin 1.7. ProBNP is 2340. Troponin i s 0.08. EKG shows atrial fibrillation at 162. No ST-T changes. Low QRS. A venous ultrasound of th e leg is negative for DVT. Chest x-ray shows no infiltrates. ASSESSMENT: 1. Left leg ischemia, acute. 2. Lower extremity edema. 3. Atrial fibrillation, on Coumadin, subtherapeutic. 4. Diabetes, type 2. 5. Hypertension. 6. Chronic obstructive pulmonary disease. 7. Dyslipidemia. 8. Congestive heart failure secondary to diastolic dysfunction, acute. 9. Morbid obesity with a body mass index of 43. 10. Hypomagnesemia. PLAN: The patient is going to be admitted to the hospital. I did speak to Dr. John Paul Cannon from inte rventional radiology. He is going to be looking at his ABIs on ultrasound. The patient is going to be placed on his verapamil. He was given 15 mg of Cardizem. He is on a Cardizem drip as well. The patient is on trazodone and this will be continued. He is on heparin for anticoagulation. The patie nt is on Lanoxin for his atrial fibrillation. I will place him on Lasix 40 mg twice a day. He is on Levemir for his diabetes. He is going to be on an insulin sliding scale with coverage. I also spok e with Dr. Rajan regarding the case. The patient is on metoprolol. He was given magnesium because hi s magnesium was low at 1.3. I will continue magnesium orally He was given potassium because of hypok alemia. He is on lisinopril for hypertension. He is on Amaryl for his diabetes. Overall, prognosis is guarded. Will continue following the patient closely. He will be placed on telemetry on admissi on. Will repeat his blood work tomorrow. Axel Villagomez MD cc: [id number] TT: 06/29/2016 09:29:15 mn 06/29/2016 09:48:57
--- NOTE | 2016-06-29 11:29 | CARD ---
APPROVED REPORT EKG Measurement Heart [id number] <Conclusion> Atrial fibrillation with rapid ventricular response Low voltage QRS Septal infarct, age undetermined NSSTW changes Prolonged QTc No change
[2016-06-29] MEDS: Insulin Reg-HIGH-Coverage SC SCH ×4 (11:53→22:00)
[2016-06-29] MEDS ORDERED: Digoxin 500 mcg/2ml (0.5 mg/2ml) Inj IVP STA (12:20)
[2016-06-29] MEDS ORDERED: Sodium Chloride 0.45% 1,000 ML IV SCH (12:30)
[2016-06-29] MEDS ORDERED: Pneumococcal 23-Valent Vaccine IM ONE (13:53)
--- NOTE | 2016-06-29 14:01 | US ---
PROCEDURE: Lower extremity TREVON exam HISTORY: Peripheral vascular disease. Diabetes. Smoker. Atrial fibrillation. Acute onset left foot pain. Possible left popliteal embolus. PHYSICIAN(S): John Paul Cannon MD. FINDINGS: The resting ABIs appear inaccurate due to calcified vessels. Right, 0.82 and left, 0.46 The brachial systolic pressures are symmetric. The low thigh pressures and waveforms are relatively normal. The left calf PVR waveform does not augment. The right calf PVR waveform is relatively normal. There is a severe 110 mm gradient across the left knee. This is consistent with distal left SFA, popliteal, and/ trifurcation disease. There is a less severe gradient on the right consistent with distal right SFA, popliteal, and/ trifurcation disease. The ankle and metatarsal waveforms severely blunted bilaterally. This is consistent with bilateral tibial occlusive disease. IMPRESSION: 1. Possible left popliteal artery embolus. The left TREVON is changed dramatically since the prior exam in March,. 2. Bilateral distal SFA, popliteal, and/ trifurcation disease. 3. Lateral tibial occlusive disease
[2016-06-29] MEDS ORDERED: Midazolam 2 MG/2 ML VIAL ONE ×4 (14:26→16:06)
[2016-06-29] MEDS ORDERED: Lidocaine 2% Inj (20ml) ONE (15:11)
[2016-06-29] MEDS ORDERED: Iodixanol 320 mg/ml 150 ml Bottle IV ONE (15:12)
[2016-06-29] MEDS ORDERED: Iodixanol 320 MG/ML 200 ML BOTTLE IV ONE (15:12)
[2016-06-29] MEDS ORDERED: Nitroglycerin 50mg in D5W 250 ML IV ONE (15:16)
[2016-06-29] MEDS ORDERED: Potassium Chloride 20 mEq 100 ML IVPB ONE (15:24)
[2016-06-29] MEDS ORDERED: Ketamine 10 mg/ml Inj (20 ml) ONE (16:16)
[2016-06-29] MEDS ORDERED: Heparin25000 units/250ml 1/2NS 250 ML IV ONE (16:28)
--- NOTE | 2016-06-29 18:11 | CON ---
DATE: 06/29/2016 REASON FOR CONSULTATION AND FOLLOWUP: Preop evaluation, risk stratification for possible acute limb ischemia, may need to go to the OR. History of AFib. BRIEF CLINICAL HISTORY: This is a 55-year-old male, very noncompliant with medication, history of ch ronic atrial fibrillation, failed CORA cardioversion, history of cardiac catheterization, at least 2, possibly 3 times; nonischemic cardiomyopathy, history of atrial fibrillation; referred for [facility] for radiofrequency ablation but patient did not go; on Coumadin, who admitted because of shor tness of breath but he says that since yesterday has a very throbbing pain in the left leg. Somebody is putting a dagger in his left leg. Also complained of shortness of breath. The patient was on Pr adaxa before. No change to the Coumadin, but INR subtherapeutic at 1.3. Denies any chest pain, shor tness of breath, any palpitation. PAST MEDICAL HISTORY: Significant for morbid obesity, chronic atrial fibrillation, failed CORA cardio version in the past, history of cardiac catheterization, at least for 2 possibly ____ years ago and 2 years ago; nonobstructive coronary artery disease, hypertension, noncompliance with medication, acti ve tobacco and alcohol abuse, history of mitral regurgitation, tricuspid regurgitation. PREVIOUS CARDIAC WORKUP: As follows: The patient had a cardiac catheterization 3 times, most likely twice done in [facility] 8 years ago and then most recently 2 years ago on 11/05/2014. N ormal coronaries, revealed ejection fraction 55%, end diastolic pressure 30-40 mmHg. History of hype rtension. Medical treatment recommended. Emphasis was made for weight reduction, compliance with th e medication, complete abstinence of alcohol and tobacco but patient is noncompliant. History of par oxysmal atrial fibrillation, was on Pradaxa, but switched over to Coumadin because patient said he co uld not buy the medication. Last echo, patient had echocardiography 06/10/2015 that shows normal LV s ize, concentric LVH, ejection fraction 45%, global hypokinesis, mitral regurgitation, tricuspid regur gitation, RV systolic pressure 20. SOCIAL HISTORY: Heavy alcohol abuse and tobacco abuse in the past. CURRENT MEDICATIONS: The patient was taking trazodone, warfarin, verapamil, Singulair, metoprolol, m etformin, lisinopril, furosemide, digoxin, Lotrisone, atorvastatin, amiodarone. ALLERGIES: SEROQUEL AND WILD MCCULLOUGH. REVIEW OF SYSTEMS: As per HPI. PHYSICAL EXAMINATION: As follows: VITAL SIGNS: Temperature afebrile, heart rate 106, blood pressure 113/82. HEENT: PERRLA. Extraocular muscles intact. NECK: Supple. No carotid bruits. No thyromegaly. CHEST: Clear to auscultation. HEART: S1, S2 regular. ABDOMEN: Soft. EXTREMITIES: Clubbing and cyanosis negative. Left extremity cold and clammy. Distal pulses not pal pable. BLOOD WORKUP: As follows: WBC 10.9, hemoglobin 13.3, hematocrit 40.2, platelet count 173. Chemistr y shows sodium 130, potassium 3.4, chloride 99, carbon dioxide 27, anion gap of 14, BUN 13, creatinin e 0.9. BNP 2340. INR 1.31. IMPRESSION: Acute limb ischemia, possibly thrombus in the left lower extremity, possible below knee; coronary artery disease, normal coronaries, status post cardiac catheterization twice, most recently in 10/2014; persistent atrial fibrillation, on anticoagulation; subtherapeutic INR, noncompliance wit h the medication, tobacco abuse, alcohol abuse, bipolar disorder, diabetes, morbid obesity. Arrangem ent has been made 2-[address] Bonilla for radiofrequency ablation, patient did not go. Most recently, patient has appointment on 07/17 for radiofrequency ablation. RECOMMENDATION: Possibly start heparin. The patient will be seen soon and possible peripheral inter vention. Further recommendation after peripheral intervention. Discussed with Dr. Villagomez. Latonia sed with the patient. The patient needs to be compliant with the medication. We will follow. Inter im, continue the baseline medication. Verapamil 240 mg and we will give 1 dose of IV digoxin to slow the heart rate. Continue lisinopril. Continue metoprolol tartrate. We will follow with you. Vee ortiz the patient need surgical intervention, patient is okay to go with a moderate to high risk because of the comorbidity because no absolute contraindication and to save his leg, patient may require emb olectomy, would be cleared from cardiac point of view with a [id number] risk because of underly ing comorbidity. But, to save his life and leg limb is important for patient to have surgical interv ention if needed. First, patient will go for peripheral angiogram and then further recommendation wi ll be made after the angiogram. Tia Rajan MD cc: [id number] TT: 06/29/2016 18:11:11 Confirmation # [id number] Dictation # [id number] sn
[2016-06-29] MEDS: Digoxin 250 mcg (0.25 mg) Tab PO SCH (18:28)
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
[2016-06-29] MEDS: Sodium Chloride 0.45% 1,000 ML IV SCH (18:29)
--- NOTE | 2016-06-29 19:58 | VASCULAR ---
PROCEDURE: 1. Abdominal aortogram and bilateral lower extremity runoff with left selective views. 2. Left popliteal artery percutaneous thrombolysis 3. Left anterior tibial artery and tibioperoneal trunk percutaneous thrombolysis HISTORY: Atrial fibrillation. Left popliteal artery embolus. Poor surgical candidate. PHYSICIAN(S): John Paul Cannon M.D. TECHNIQUE: The exam was very limited by the patient's beligerent and combative behavior. Anesthesia was requested for deep sedation. The relative risks and indications of the procedure were explained to the patient and consent obtained. The patient was hydrated prior to the procedure and the appropriate labs drawn. The patient was placed supine on the arteriogram table and the right groin prepped and draped in the usual sterile fashion. Conscious sedation and monitoring were provided throughout the procedure by a nurse. Via a right common femoral artery approach, a 5 Hungarian sheath was placed in the right groin. Through the sheath and over a guidewire, a 5 Hungarian flush catheter was placed in the abdominal aorta at the level of the renal arteries and a PA DSA abdominal aortogram performed. The catheter was pulled down to the aortic bifurcation and bilateral oblique DSA pelvic arteriograms performed. Overlapping bilateral lower extremity DSA arteriograms were obtained from the inguinal ligaments to the proximal tibial arteries A 0.035 angled Glidewire was advanced over the bifurcation and placed in the distal left SFA. A 6 Hungarian 65 cm destination sheath was placed in the mid to distal left SFA. Heparin 7500 units IV and nitroglycerin in 250 mcg aliquots were given. The embolus in the distal left popliteal artery and trifurcation was easily crossed with a 5 Hungarian catheter and angled Glidewire.. Exchange was made for a 0.014 support guidewire in the left anterior tibial artery. Angiojet thrombo lysis of the distal left popliteal artery and proximal left anterior tibial artery was performed with a 5 Hungarian catheter. TPA 25 milligrams in 500 cc normal saline was utilized. The 0.014 guidewire was repositioned in the left posterior tibial artery. Angiojet thrombolysis of the left tibioperoneal trunk was also performed. The bulk of the embolus was successfully lysed. Small emboli remain in the tibial arteries. Additional endovascular thrombo lysis and possible angioplasty could not be performed due to the patient's combative behavior. The sheath was removed and hemostasis obtained with a Perclose device. The patient was transferred to the ICU.. FINDINGS: There are single renal arteries bilaterally which are widely patent and normal in appearance. The nephrograms are symmetric in appearance. No renal emboli are appreciated. The infrarenal abdominal aorta is widely patent without a radiographically significant stenosis. The aortic bifurcation is widely patent. The common and external iliac arteries are normal in appearance without a significant stenosis. The internal iliac arteries are patent bilaterally. Right lower extremity: The right common femoral artery is patent. The right profunda femoral artery is patent. The right superficial femoral artery is patent and continuous without a radiographically significant stenosis. The right popliteal artery and trifurcation are appear patent though visualization is somewhat limited. The 3 right tibial vessels are not adequately opacified. Left lower extremity: Left common femoral artery is patent. The left profunda femoral artery is patent. The left superficial femoral artery is patent and continuous without a radiographically significant stenosis. There is occlusive thrombus in the terminal left popliteal artery extending into the proximal left anterior tibial artery on the left tibioperoneal trunk. IMPRESSION: 1.Left popliteal embolus extending into the left tibioperoneal trunk is proximal left anterior tibial artery. 2. Partially successful thrombolysis of the left popliteal artery embolus and proximal left tibial artery emboli within Angiojet catheter. Small emboli remain distally. Additional endovascular treatment could not be provided due to the patient's combative behavior. The patient was heparinized and transferred to the ICU.
[2016-06-29] MEDS ORDERED: Heparin25000 units/250ml 1/2NS 250 ML IV PRN (22:00)
--- NOTE | 2016-06-29 22:52 | CON ---
DATE: 06/29/2016 REFERRING PHYSICIAN: Dr. Axel Villagomez REASON FOR CONSULT: Chronic obstructive lung disease, obstructive sleep apnea syndrome. HISTORY OF PRESENT ILLNESS: This is a 55-year-old gentleman known to me from previous admission, shital y noncompliant with the medication and followup. Has multiple medical problems including chronic Mario b with cardioversion in the past, cardiomyopathy, chronic obstructive lung disease, obstructive sleep apnea syndrome, diabetes, hypertension, obesity. Came in with lower extremity pain, found to have a possible acute limb ischemia of left lower extremity. Dopplers suggestive of ischemia. He denies a ny headache, no rhinitis, no cough, short of breath with exertion, no chest pain, no nausea, no vomit ing. Has left leg pain. PAST MEDICAL HISTORY: As per history of present illness. SOCIAL HISTORY: Positive history of smoking or alcohol abuse. ALLERGIES: ALLERGIC TO SEROQUEL, ALSO ALLERGIC TO . FAMILY HISTORY: No significant cardiopulmonary disease reported. MEDICATIONS: He is on Amaryl 4 mg daily, Ativan 2 mg a.m. and at bedtime, Ativan 2 mg q. 3 hours p. r.n., IV diltiazem, Coumadin 7.5 mg was given, trazodone 200 mg at bedtime, Haldol 5 mg q. 12 hours p.r.n., insulin coverage, digoxin 0.25 mg daily, Lasix 40 mg twice a day, Levemir 40 units subQ twice a day, Lipitor 40 mg daily, metoprolol tartrate 25 mg twice a day, mag oxide 400 mg 3 times a day, P rotonix 40 mg daily, Singulair 10 mg daily, IV fluid half normal saline 60 mL per hour, Zestril 20 mg daily. REVIEW OF SYSTEMS: No headache, no rhinitis, no cough, got short of breath with exertion. No chest pain, no nausea, no vomiting, no diarrhea. No dysuria. Left lower extremity pain. PHYSICAL EXAMINATION: GENERAL: Lying in the bed in no acute distress. VITAL SIGNS: Temp is 98, heart rate is 112, blood pressure is 116/85, respiratory rate is 23, pulse ox 95% on nasal cannula. HEENT: Moist mucous membranes. Crowded airway. Mallampati score is 4. NECK: Short, thick neck. LUNGS: Prolonged expiratory phase. HEART: S1 and S2. ABDOMEN: Obese, soft, nontender. EXTREMITIES: Left lower extremity cold to touch. No pulses palpated in the left lower extremity. NEUROLOGIC: Awake, alert, follows simple commands. LABORATORY DATA: Shows hemoglobin 13.3, hematocrit 40.2, WBC 10.9, platelet is 173. INR 1.31, PTT i s 25. Sodium 137, potassium 3.4, chloride 99, bicarbonate 27, BUN 13, creatinine 0.9, glucose 311, c alcium 8.6, and magnesium 1.3, total bilirubin 1.7, AST 22, ALT 33, alkaline phosphatase is 75, tropo drake 0.08. ProBNP is 2340, albumin is 3.8, lipase is 12. IMPRESSION AND PLAN: Limb ischemia, cardiomyopathy with atrial fibrillation, pulmonary hypertension, chronic obstructive lung disease, obstructive sleep apnea syndrome, hypertension, diabetes, history of alcohol abuse, for revascularization. Pulmonary point of view, his pulmonary status is optimized. Will need a BiPAP 12/8 with 35% oxygen while sleeping and/or if sedated, inhaled bronchodilator, ga stric prophylaxis. Restart anticoagulation if cleared by interventional radiology. Follow up ABG, c hest x-ray, CBC, CMP in the morning. Thank you and we will follow with you. Tia Godinez MD cc: [id number] TT: 06/29/2016 22:51:41 Confirmation # [id number] Dictation # [id number]
[2016-06-30 05:13] LABS: HEMATOCRIT 40.2 % (42.0-52.0); MEAN CELL VOLUME 85.9 fL (80.0-105.0); MEAN CORPUSCULAR HEMOGLOBIN 27.8 pg (25.0-35.0); MEAN CORPUSCULAR HGB CONC 32.3 g/dl (31.0-37.0); MEAN PLATELET VOLUME 11.2 fl (7.0-11.0); RED CELL DISTRIBUTION WIDTH 16.2 % (11.5-14.5); WHITE BLOOD COUNT 12.9 10^3/ul (4.5-11.0)
[2016-06-30 05:36] LABS: ALB/GLOB RATIO 1.2 (1.1-1.8); ALKALINE PHOSPHATASE 63 U/L (38-133); ALT/SGPT 31 U/L (7-56); AST/SGOT 25 U/L (15-59); BILIRUBIN,TOTAL 1.6 mg/dL (0.2-1.3); BLOOD UREA NITROGEN 20 mg/dL (7-21); CALCIUM 8.2 mg/dL (8.4-10.5); CARBON DIOXIDE 29 mmol/L (21-33); CHLORIDE 98 mmol/L (98-107); GFR AFRICAN-AMERICAN > 60; GLUCOSE,RANDOM 173 mg/dL (70-110); MAGNESIUM 1.7 mg/dL (1.7-2.2); POTASSIUM 3.9 mmol/L (3.6-5.0); SODIUM 137 mmol/L (132-148); TOTAL PROTEIN 6.9 g/dL (5.8-8.3)
[2016-06-30 06:54] LABS: ARTERIAL BLOOD GAS HCO3 30.4 mmol/L (21-28); ARTERIAL BLOOD GAS O2 CAPACITY 15.7 mL/dl (16-24); ARTERIAL BLOOD GAS O2 CONTENT 14.4 ML/dl (15-23); ARTERIAL BLOOD GAS PH 7.41 (7.35-7.45); ARTERIAL BLOOD HGB O2 SAT 88.8 % (95.0-98.0); CARBOXYHEMOGLOBIN 2.5 % (0.5-1.5); HHB 8.1 % (0-5); METHEMOGLOBIN 0.5 % (0.0-3.0)
[2016-06-30] MEDS: Heparin25000 units/250ml 1/2NS 250 ML IV PRN (07:00)
[2016-06-30] MEDS: Insulin Detemir 100 units/ml Vial (Levemir) SC SCH ×2 (09:10→18:05)
[2016-06-30] MEDS: Insulin Reg-HIGH-Coverage SC SCH ×3 (09:11→16:35)
[2016-06-30] MEDS: Magnesium Oxide 400 mg Tab UD PO SCH ×3 (09:15→18:05)
--- NOTE | 2016-06-30 14:25 | CP.CCUPN ---
<Jordan Wells - Last Filed: 06/30/16 15:27> CCU Subjective - Physician Review Subjective (Free Text): 06/30/16 14:13 Patient seen and examined at bedside in ICU. Today is hospital day 2. Patient is awake, alert, and oriented to time, place, and self. He is able to recall why and when he presented to the hospital, but has no memory of his agitation or violent episodes yesterday. He is not surprised when told about his mental status yesterday, however, reporting that he believes its an adverse reaction to anesthesia as he has had similar episodes after undergoing procedures in the past. Denies paranoid/delusional thoughts, denies chest pain, shortness of breath, leg pain, nausea/emesis, or dizziness/lightheadedness. CCU Objective - Vital Signs / Intake & Output Vital Signs (Last 4 hours): Vital Signs Temp Pulse Resp BP Pulse Ox 06/30/16 14:00 95 H 06/30/16 13:00 90 20 93 L 06/30/16 12:21 90 23 06/30/16 12:20 90 23 100/54 L 93 L 06/30/16 12:00 98 F 91 H 17 96 06/30/16 11:25 86 16 95 06/30/16 11:01 96 H 21 113/92 H 98 06/30/16 11:00 88 24 91 L Intake and Output (Last 8hrs): Intake & Output 06/29/16 06/30/16 06/30/16 22:59 06:59 14:59 Intake Total 972 Output Total 2200 Balance -1228 Weight 130.181 kg Intake: IV 972 Right Hand 972 Oral 0 Output: Urine 2200 Urethral (Rivas) 2200 Other: Voiding Method Indwelling Catheter Indwelling Catheter - Physical Exam Head: Positive for: Atraumatic, Normocephalic Pupils: Positive for: PERRL. Negative for: Sluggish, Non-Reactive, Pinpoint Extroacular Muscles: Positive for: EOMI. Negative for: Gaze Palsy, Entrapment Conjunctiva: Positive for: Normal. Negative for: Injected, Icteric Mouth: Positive for: Moist Mucous Membranes. Negative for: Drooling Nose (External): Positive for: Atraumatic. Negative for: Abrasion, Contusion, Laceration Neck: Positive for: Normal Range of Motion, Trachea Midline. Negative for: MIDLINE TENDERNESS, JVD Respiratory/Chest: Positive for: Decreased Breath Sounds (decreased breath sounds in all rock), Other (Prolonged expiratory phase). Negative for: Clear to Auscultation, Respiratory Distress, Accessory Muscle Use, Wheezes, Rales, Rhonchi, Tachypneic Cardiovascular: Positive for: Normal S1, S2, Irregular Rhythm (irregularly irregular, but neither tachy or bony). Negative for: Regular Rate and Rhythm, Murmurs, Tachycardic, Bradycardic, Gallop Abdomen: Positive for: Normal Bowel Sounds. Negative for: Tenderness, Distention, Peritoneal Signs, Ostomy Tubes, Mass/Organomegaly Genitourinary Male: Positive for: Other (Rivas in place) Upper Extremity: Positive for: Normal Inspection, Normal ROM, NORMAL PULSES. Negative for: Cyanosis, Edema, Tenderness, Swelling, Erythema, Deformity Lower Extremity: Positive for: Edema (+1-2 pitting edema in feet, +1 pitting edema from ankles to mid-resendiz bilaterally), Other (Feet and ankles cool to palpation bilaterally, unable to palpate bilateral dorsalis pedis pulses due to foot edema, intact bilateral popliteal and femoral pulses (all +1); pressure bandage over site of right femoral canulation/access site, no oozing or bleeding through site, no acute tenderness at site, no surroudning edema or eythema). Negative for: CALF TENDERNESS, Cyanosis, Tenderness, Erythema, Deformity Neurological: Positive for: GCS=15, CN II-XII Intact, Speech Normal Skin: Positive for: Warm (except bilateral feet, as noted in lower extremity exam), Dry, Normal Color. Negative for: Rashes Psychiatric: Positive for: Alert, Oriented x 3, Normal Insight, Normal Concentration, Normal Affect, Normal Mood. Negative for: Anxious, Agitated, Homicidal Ideation, Delusional - Medications Active Medications: Active Medications Generic Name Dose Route Start Last Admin Trade Name Freq PRN Reason Stop Dose Admin Atorvastatin Calcium 40 mg 06/29/16 17:00 06/29/16 18:28 Lipitor PO Not Given DIN WILTON Digoxin 0.25 mg 06/29/16 14:00 06/29/16 18:28 Lanoxin PO Not Given 1400 WILTON Furosemide 40 mg 06/29/16 10:00 06/30/16 09:08 Lasix PO 40 mg BID WILTON Administration Glimepiride 4 mg 06/30/16 05:04 06/30/16 09:08 Amaryl PO 4 mg DAILY WILTON Administration Haloperidol Lactate 5 mg 06/30/16 04:55 Haldol IVP Q6 PRN Agitation Protocol Sodium Chloride 1,000 mls @ 60 mls/hr 06/29/16 16:50 06/29/16 18:29 Sodium Chloride 0.45% IV 60 mls/hr .[id number] WILTON Administration Heparin Sodium/Sodium Chloride 250 mls @ 16.146 mls/hr 06/29/16 22:00 Heparin 48856 Units/250ml 1/2 Normal Saline IV .[id number] PRN ADJUST RATE PER PROTOCOL Protocol Insulin Detemir 40 unit 06/29/16 10:00 06/30/16 09:10 Levemir SC 40 unit BID WILTON Administration Insulin Human Regular 0 units 06/29/16 07:30 06/30/16 12:10 Humulin R High SC 2 units ACHS WILTON Administration Protocol Lisinopril 20 mg 06/29/16 10:00 06/30/16 09:15 Zestril PO 20 mg DAILY WILTON Administration Lorazepam 2 mg 06/29/16 10:00 06/30/16 09:28 Ativan PO 2 mg AMHS WILTON Administration Protocol Lorazepam 2 mg 06/30/16 04:56 Ativan IVP Q6 PRN Agitation Protocol Magnesium Oxide 400 mg 06/29/16 10:00 06/30/16 09:15 Mag-Ox PO 400 mg TID WILTON Administration Metoprolol Tartrate 25 mg 06/29/16 10:00 06/30/16 09:15 Lopressor PO 25 mg BID WILTON Administration Montelukast Sodium 10 mg 06/29/16 10:00 06/30/16 09:18 Singulair PO 10 mg DAILY WILTON Administration Pantoprazole Sodium 40 mg 06/30/16 10:00 06/30/16 09:16 Protonix Inj IVP 40 mg DAILY WILTON Administration Trazodone HCl 200 mg 06/29/16 22:00 06/29/16 22:00 Desyrel PO Not Given HS WILTON Warfarin Sodium 7.5 mg 06/29/16 22:00 06/29/16 22:00 Coumadin PO Not Given HS WILTON Protocol - Patient Studies Lab Studies: Lab Studies 06/30/16 06/30/16 06/30/16 Range/Units 06:49 05:06 00:23 WBC 12.9 H (4.5-11.0) 10^3/ul RBC 4.68 (3.5-6.1) 10^6/uL Hgb 13.0 L (14.0-18.0) gm/dL Hct 40.2 L (42.0-52.0) % MCV 85.9 (80.0-105.0) fL MCH 27.8 (25.0-35.0) pg MCHC 32.3 (31.0-37.0) g/dl RDW 16.2 H (11.5-14.5) % Plt Count 183 (120.0-450.0) 10^3/uL MPV 11.2 H (7.0-11.0) fl APTT 49.2 H 51.6 H (23.7-30.8) Seconds pCO2 48 H (35-45) mm/Hg pO2 57.0 L (80-100) mm/Hg HCO3 30.4 H (21-28) mmol/L ABG pH 7.41 (7.35-7.45) ABG Total CO2 31.9 H (22-28) mmol.L ABG O2 Saturation 91.6 L (95-98) % ABG O2 Content 14.4 L (15-23) ML/dl ABG Base Excess 4.9 H (-2.0-3.0) mmol/L ABG Hemoglobin 11.5 L (11.7-17.4) g/dL ABG Carboxyhemoglobin 2.5 H (0.5-1.5) % POC ABG HHb (Measured) 8.1 H (0-5) % ABG Methemoglobin 0.5 (0.0-3.0) % ABG O2 Capacity 15.7 L (16-24) mL/dl Hgb O2 Saturation 88.8 L (95.0-98.0) % FiO2 35.0 % Sodium 137 (132-148) mmol/L Potassium 3.9 (3.6-5.0) mmol/L Chloride 98 (98-107) mmol/L Carbon Dioxide 29 (21-33) mmol/L Anion Gap 14 (10-20) BUN 20 (7-21) mg/dL Creatinine 0.9 (0.5-1.4) mg/dL Est GFR ( Amer) > 60 Est GFR (Non-Af Amer) > 60 POC Glucose (mg/dL) (65-110) mg/dL Random Glucose 173 H (70-110) mg/dL Calcium 8.2 L (8.4-10.5) mg/dL Magnesium 1.7 (1.7-2.2) mg/dL Total Bilirubin 1.6 H (0.2-1.3) mg/dL AST 25 (15-59) U/L ALT 31 (7-56) U/L Alkaline Phosphatase 63 (38-133) U/L Total Protein 6.9 (5.8-8.3) g/dL Albumin 3.8 (3.0-4.8) g/dL Globulin 3.1 gm/dL Albumin/Globulin Ratio 1.2 (1.1-1.8) TSH 3rd Generation 2.39 (0.46-4.68) mIU/mL 06/29/16 Range/Units 21:51 WBC (4.5-11.0) 10^3/ul RBC (3.5-6.1) 10^6/uL Hgb (14.0-18.0) gm/dL Hct (42.0-52.0) % MCV (80.0-105.0) fL MCH (25.0-35.0) pg MCHC (31.0-37.0) g/dl RDW (11.5-14.5) % Plt Count (120.0-450.0) 10^3/uL MPV (7.0-11.0) fl APTT (23.7-30.8) Seconds pCO2 (35-45) mm/Hg pO2 (80-100) mm/Hg HCO3 (21-28) mmol/L ABG pH (7.35-7.45) ABG Total CO2 (22-28) mmol.L ABG O2 Saturation (95-98) % ABG O2 Content (15-23) ML/dl ABG Base Excess (-2.0-3.0) mmol/L ABG Hemoglobin (11.7-17.4) g/dL ABG Carboxyhemoglobin (0.5-1.5) % POC ABG HHb (Measured) (0-5) % ABG Methemoglobin (0.0-3.0) % ABG O2 Capacity (16-24) mL/dl Hgb O2 Saturation (95.0-98.0) % FiO2 % Sodium (132-148) mmol/L Potassium (3.6-5.0) mmol/L Chloride (98-107) mmol/L Carbon Dioxide (21-33) mmol/L Anion Gap (10-20) BUN (7-21) mg/dL Creatinine (0.5-1.4) mg/dL Est GFR ( Amer) Est GFR (Non-Af Amer) POC Glucose (mg/dL) 267 H (65-110) mg/dL Random Glucose (70-110) mg/dL Calcium (8.4-10.5) mg/dL Magnesium (1.7-2.2) mg/dL Total Bilirubin (0.2-1.3) mg/dL AST (15-59) U/L ALT (7-56) U/L Alkaline Phosphatase (38-133) U/L Total Protein (5.8-8.3) g/dL Albumin (3.0-4.8) g/dL Globulin gm/dL Albumin/Globulin Ratio (1.1-1.8) TSH 3rd Generation (0.46-4.68) mIU/mL Laboratory Results - last 24 hr 06/29/16 06/30/16 06/30/16 21:51 00:23 05:06 WBC 12.9 H RBC 4.68 Hgb 13.0 L Hct 40.2 L MCV 85.9 MCH 27.8 MCHC 32.3 RDW 16.2 H Plt Count 183 MPV 11.2 H APTT 51.6 H 49.2 H pCO2 pO2 HCO3 ABG pH ABG Total CO2 ABG O2 Saturation ABG O2 Content ABG Base Excess ABG Hemoglobin ABG Carboxyhemoglobin POC ABG HHb (Measured) ABG Methemoglobin ABG O2 Capacity Hgb O2 Saturation FiO2 Sodium 137 Potassium 3.9 Chloride 98 Carbon Dioxide 29 Anion Gap 14 BUN 20 Creatinine 0.9 Est GFR ( Amer) > 60 Est GFR (Non-Af Amer) > 60 POC Glucose (mg/dL) 267 H Random Glucose 173 H Calcium 8.2 L Magnesium 1.7 Total Bilirubin 1.6 H AST 25 ALT 31 Alkaline Phosphatase 63 Total Protein 6.9 Albumin 3.8 Globulin 3.1 Albumin/Globulin Ratio 1.2 TSH 3rd Generation 2.39 06/30/16 06:49 WBC RBC Hgb Hct MCV MCH MCHC RDW Plt Count MPV APTT pCO2 48 H pO2 57.0 L HCO3 30.4 H ABG pH 7.41 ABG Total CO2 31.9 H ABG O2 Saturation 91.6 L ABG O2 Content 14.4 L ABG Base Excess 4.9 H ABG Hemoglobin 11.5 L ABG Carboxyhemoglobin 2.5 H POC ABG HHb (Measured) 8.1 H ABG Methemoglobin 0.5 ABG O2 Capacity 15.7 L Hgb O2 Saturation 88.8 L FiO2 35.0 Sodium Potassium Chloride Carbon Dioxide Anion Gap BUN Creatinine Est GFR ( Amer) Est GFR (Non-Af Amer) POC Glucose (mg/dL) Random Glucose Calcium Magnesium Total Bilirubin AST ALT Alkaline Phosphatase Total Protein Albumin Globulin Albumin/Globulin Ratio TSH 3rd Generation Fingerstick Blood Sugar Results: 169 Review of Systems - Constitutional Constitutional: absent: Fever, Chills - EENT Eyes: absent: Blurred Vision, Change in Vision, Loss of Vision Ears: absent: Dizziness Nose/Mouth/Throat: absent: Dysphagia, Sore Throat, Neck Pain - Cardiovascular Cardiovascular: absent: Chest Pain, Dyspnea, Lightheadedness, Palpitations, Syncope - Respiratory Respiratory: absent: Cough, Dyspnea, Hemoptysis, Pain on Inspiration - Gastrointestinal Gastrointestinal: absent: Abdominal Pain, Constipation, Diarrhea, Dysphagia, Nausea, Vomiting - Genitourinary Genitourinary: absent: Difficulty Urinating, Dysuria, Flank Pain - Musculoskeletal Musculoskeletal: Other (Hx of diabetic neuropathy, at baseline per pt). absent : Deformity, Joint Swelling, Muscle Weakness, Numbness - Integumentary Integumentary: absent: Pruritus, Rash, Skin Pain, Sores - Neurological Neurological: absent: Focal Weakness, Loss of Vision, Memory Loss, Syncope, Tremor - Psychiatric Psychiatric: absent: Anxiety - Endocrine Endocrine: absent: Fatigue, Palpitations Critical Care Progress Note - Nutrition Nutrition: Nutrition Category Date Time Status Consistent Carbohydrate [DIET] Diets 06/29/16 Breakfast Ordered Assessment/Plan - Assessment and Plan (Free Text) Assessment: This is a 55 yo M with PMH of CHF, hypertension, diabetes, COPD, dyslipidemia, atrial fibrillation, neuropathy, and frequent medical non- compliance transferred to the ICU post-revascularization by IR for observation and management post-procedure. His delirious episode has resolved, and he is stable for transfer to telemetry as per Cardio and IR. Plan: Neuro: -Awake and alert, oriented to self, time, and location -Following all commands and answering questions appropriately -maintain normothermia -d/c ativan and haldol sedation if patient remains coherent Pulm: -BiPAP overnight, wearing nasal canula during daytime, satting > 90% -Hx of COPD and CHF, former smoker, known to be noncompliant with home regimen -Conservative O2 management -maintain SaO2 > 90% and paO2 > 60 -continue montelukast, Lasix -if worsening O2 sats, can consider Duonebs or Xopenex -Pulm (Dr. Godinez) consulted, appreciate any recs -will likely require BiPAP again for nights or when sedated (if becomes overly agitated/violent again) as he is a chronic retainer Cardio: -tachycardia resolved, likely 2/2 agitation and thrashing; remains irregularly irregular (afib) -hx Afib on Coumadin, subtherapeutic INR on admission likely 2/2 non-compliance , continue coumadin to return to therapeutic INR while on heparin drip -continue Statin, Lasix, Lisinopril, Metoprolol, Digoxin -Gentle hydration with 60cc/hr NS IVF, d/c if desaturating or clinically appears fluid overloaded -s/p left popliteal endovacular revascularization performed today (POD #0) for ichemic leg, pulses intact on exam; continue to monitor for signs/symptoms of re -occlusion -IR (Dr. Cannon) and Cardio (Dr. Rajan) consulted, appreciate any recs; patient cleared for transfer to telemetry, can d/c cardizem drip and start on oral Cardizem GI: -Consistent carb diet -Protonix for GI ppx Renal: -rivas in place, draining clear yellow urine -Cr remains 0.9, no signs of renal injury -avoid nephrotoxic drugs where feasible -monitor and replete electrolytes as needed; repleting Mag with 1x Mag Sulfate IVPB, only oral Calcium due to interaction risk of IV calcium in patient on digoxin -maintain euglycemia (BG 140-180), euvolemia Heme: -Hgb 13.0 (was 13.3), f/u AM CBC -INR 1.31 on admit, likely 2/2 medication non-compliance, on heparin drip for ischemic leg, will bridge to coumadin while on heparin drip ID: -WBCs 12.9 (was 10.9), more likely reactive increase post-procedure than infectious process, remains afebrile -recieved 1 dose of Ancef during IR procedure, continue to monitor, hold on further antibiotics at this time Endo: -Hx DM-II, non-compliant with management/medication -Consistent Carb diet -ISS Determir 40units BID + Sliding Scale + Amaryl Psych: -delirious vs Psychotic episode resolved, per charting had similar episode on prior admission (05/22-05/31), patient reports similar episodes after procedures where he received anesthesia -delirious/delusional/paranoid thoughts resolved, knows he is in [facility], denies thoughts of wanting to hurt staff -AAOx3 (self, time, location) -PRN Ativan and Haldol can be d/c if patient remains stable -restraints d/c'ed -Psych consulted, appreciate any recs Dispo: ICU post endo revascularization, converted from Cardizem drip to PO, stable for transfer to [facility] as per IR and Cardio FEN: Consistent carb diet, NS IVF 60cc/hr Access: Peripheral IV Consults: Pulm, Cardio, IR, Psych Ppx: Protonix for GI, Heparin drip/coumadin covers for DVT Patient reviewed and discussed with attending, Dr. Larkin. - Date & Time Date: 06/30/16 Time: 15:13 <Pete Larkin - Last Filed: 06/30/16 16:17> CCU Objective - Vital Signs / Intake & Output Vital Signs (Last 4 hours): Vital Signs Pulse Resp BP Pulse Ox 06/30/16 14:00 95 H 06/30/16 13:00 90 20 93 L 06/30/16 12:21 90 23 06/30/16 12:20 90 23 100/54 L 93 L Intake and Output (Last 8hrs): Intake & Output 06/30/16 06/30/16 06/30/16 06:59 14:59 22:59 Intake Total 972 Output Total 2200 Balance -1228 Weight 287 lb Intake: IV 972 Right Hand 972 Oral 0 Output: Urine 2200 Urethral (Rivas) 2200 Other: Voiding Method Indwelling Catheter Indwelling Catheter Indwelling Catheter - Medications Active Medications: Active Medications Generic Name Dose Route Start Last Admin Trade Name Freq PRN Reason Stop Dose Admin Atorvastatin Calcium 40 mg 06/29/16 17:00 06/29/16 18:28 Lipitor PO Not Given DIN [facility] Calcium Carbonate 600 mg 06/30/16 15:30 Caltrate PO DAILY WILTON Digoxin 0.25 mg 06/29/16 14:00 06/30/16 14:33 Lanoxin PO 0.25 mg 1400 WILTON Administration Diltiazem HCl 60 mg 06/30/16 14:13 Cardizem PO QID WILTON Furosemide 40 mg 06/29/16 10:00 06/30/16 09:08 Lasix PO 40 mg BID WILTON Administration Glimepiride 4 mg 06/30/16 05:04 06/30/16 09:08 Amaryl PO 4 mg DAILY WILTON Administration Haloperidol Lactate 5 mg 06/30/16 04:55 Haldol IVP Q6 PRN Agitation Protocol Sodium Chloride 1,000 mls @ 60 mls/hr 06/29/16 16:50 06/29/16 18:29 Sodium Chloride 0.45% IV 60 mls/hr .[id number] WILTON Administration Heparin Sodium/Sodium Chloride 250 mls @ 16.146 mls/hr 06/29/16 22:00 Heparin 35222 Units/250ml 1/2 Normal Saline IV .[id number] PRN ADJUST RATE PER PROTOCOL Protocol Magnesium Sulfate 2 gm/ Sodium 104 mls @ 102 mls/hr 06/30/16 15:23 Chloride IVPB 06/30/16 16:24 ONCE ONE Insulin Detemir 40 unit 06/29/16 10:00 06/30/16 09:10 Levemir SC 40 unit BID WILTON Administration Insulin Human Regular 0 units 06/29/16 07:30 06/30/16 12:10 Humulin R High SC 2 units ACHS WILTON Administration Protocol Lisinopril 20 mg 06/29/16 10:00 06/30/16 09:15 Zestril PO 20 mg DAILY WILTON Administration Lorazepam 2 mg 06/29/16 10:00 06/30/16 09:28 Ativan PO 2 mg AMHS WILTON Administration Protocol Lorazepam 2 mg 06/30/16 04:56 Ativan IVP Q6 PRN Agitation Protocol Magnesium Oxide 400 mg 06/29/16 10:00 06/30/16 14:33 Mag-Ox PO 400 mg TID WILTON Administration Metoprolol Tartrate 25 mg 06/29/16 10:00 06/30/16 09:15 Lopressor PO 25 mg BID WILTON Administration Montelukast Sodium 10 mg 06/29/16 10:00 06/30/16 09:18 Singulair PO 10 mg DAILY WILTON Administration Pantoprazole Sodium 40 mg 06/30/16 10:00 06/30/16 09:16 Protonix Inj IVP 40 mg DAILY WILTON Administration Trazodone HCl 200 mg 06/29/16 22:00 06/29/16 22:00 Desyrel PO Not Given HS WILTON Warfarin Sodium 7.5 mg 06/29/16 22:00 06/29/16 22:00 Coumadin PO Not Given HS [facility] Protocol - Patient Studies Lab Studies: Lab Studies 06/30/16 06/30/16 06/30/16 Range/Units 15:45 06:49 05:06 WBC 12.9 H (4.5-11.0) 10^3/ul RBC 4.68 (3.5-6.1) 10^6/uL Hgb 13.0 L (14.0-18.0) gm/dL Hct 40.2 L (42.0-52.0) % MCV 85.9 (80.0-105.0) fL MCH 27.8 (25.0-35.0) pg MCHC 32.3 (31.0-37.0) g/dl RDW 16.2 H (11.5-14.5) % Plt Count 183 (120.0-450.0) 10^3/uL MPV 11.2 H (7.0-11.0) fl APTT 58.0 H 49.2 H (23.7-30.8) Seconds pCO2 48 H (35-45) mm/Hg pO2 57.0 L (80-100) mm/Hg HCO3 30.4 H (21-28) mmol/L ABG pH 7.41 (7.35-7.45) ABG Total CO2 31.9 H (22-28) mmol.L ABG O2 Saturation 91.6 L (95-98) % ABG O2 Content 14.4 L (15-23) ML/dl ABG Base Excess 4.9 H (-2.0-3.0) mmol/L ABG Hemoglobin 11.5 L (11.7-17.4) g/dL ABG Carboxyhemoglobin 2.5 H (0.5-1.5) % POC ABG HHb (Measured) 8.1 H (0-5) % ABG Methemoglobin 0.5 (0.0-3.0) % ABG O2 Capacity 15.7 L (16-24) mL/dl Hgb O2 Saturation 88.8 L (95.0-98.0) % FiO2 35.0 % Sodium 137 (132-148) mmol/L Potassium 3.9 (3.6-5.0) mmol/L Chloride 98 (98-107) mmol/L Carbon Dioxide 29 (21-33) mmol/L Anion Gap 14 (10-20) BUN 20 (7-21) mg/dL Creatinine 0.9 (0.5-1.4) mg/dL Est GFR ( Amer) > 60 Est GFR (Non-Af Amer) > 60 POC Glucose (mg/dL) (65-110) mg/dL Random Glucose 173 H (70-110) mg/dL Calcium 8.2 L (8.4-10.5) mg/dL Magnesium 1.7 (1.7-2.2) mg/dL Total Bilirubin 1.6 H (0.2-1.3) mg/dL AST 25 (15-59) U/L ALT 31 (7-56) U/L Alkaline Phosphatase 63 (38-133) U/L Total Protein 6.9 (5.8-8.3) g/dL Albumin 3.8 (3.0-4.8) g/dL Globulin 3.1 gm/dL Albumin/Globulin Ratio 1.2 (1.1-1.8) TSH 3rd Generation 2.39 (0.46-4.68) mIU/mL 06/30/16 06/29/16 Range/Units 00:23 21:51 WBC (4.5-11.0) 10^3/ul RBC (3.5-6.1) 10^6/uL Hgb (14.0-18.0) gm/dL Hct (42.0-52.0) % MCV (80.0-105.0) fL MCH (25.0-35.0) pg MCHC (31.0-37.0) g/dl RDW (11.5-14.5) % Plt Count (120.0-450.0) 10^3/uL MPV (7.0-11.0) fl APTT 51.6 H (23.7-30.8) Seconds pCO2 (35-45) mm/Hg pO2 (80-100) mm/Hg HCO3 (21-28) mmol/L ABG pH (7.35-7.45) ABG Total CO2 (22-28) mmol.L ABG O2 Saturation (95-98) % ABG O2 Content (15-23) ML/dl ABG Base Excess (-2.0-3.0) mmol/L ABG Hemoglobin (11.7-17.4) g/dL ABG Carboxyhemoglobin (0.5-1.5) % POC ABG HHb (Measured) (0-5) % ABG Methemoglobin (0.0-3.0) % ABG O2 Capacity (16-24) mL/dl Hgb O2 Saturation (95.0-98.0) % FiO2 % Sodium (132-148) mmol/L Potassium (3.6-5.0) mmol/L Chloride (98-107) mmol/L Carbon Dioxide (21-33) mmol/L Anion Gap (10-20) BUN (7-21) mg/dL Creatinine (0.5-1.4) mg/dL Est GFR ( Amer) Est GFR (Non-Af Amer) POC Glucose (mg/dL) 267 H (65-110) mg/dL Random Glucose (70-110) mg/dL Calcium (8.4-10.5) mg/dL Magnesium (1.7-2.2) mg/dL Total Bilirubin (0.2-1.3) mg/dL AST (15-59) U/L ALT (7-56) U/L Alkaline Phosphatase (38-133) U/L Total Protein (5.8-8.3) g/dL Albumin (3.0-4.8) g/dL Globulin gm/dL Albumin/Globulin Ratio (1.1-1.8) TSH 3rd Generation (0.46-4.68) mIU/mL Laboratory Results - last 24 hr 06/29/16 06/30/16 06/30/16 21:51 00:23 05:06 WBC 12.9 H RBC 4.68 Hgb 13.0 L Hct 40.2 L MCV 85.9 MCH 27.8 MCHC 32.3 RDW 16.2 H Plt Count 183 MPV 11.2 H APTT 51.6 H 49.2 H pCO2 pO2 HCO3 ABG pH ABG Total CO2 ABG O2 Saturation ABG O2 Content ABG Base Excess ABG Hemoglobin ABG Carboxyhemoglobin POC ABG HHb (Measured) ABG Methemoglobin ABG O2 Capacity Hgb O2 Saturation FiO2 Sodium 137 Potassium 3.9 Chloride 98 Carbon Dioxide 29 Anion Gap 14 BUN 20 Creatinine 0.9 Est GFR ( Amer) > 60 Est GFR (Non-Af Amer) > 60 POC Glucose (mg/dL) 267 H Random Glucose 173 H Calcium 8.2 L Magnesium 1.7 Total Bilirubin 1.6 H AST 25 ALT 31 Alkaline Phosphatase 63 Total Protein 6.9 Albumin 3.8 Globulin 3.1 Albumin/Globulin Ratio 1.2 TSH 3rd Generation 2.39 06/30/16 06/30/16 06:49 15:45 WBC RBC Hgb Hct MCV MCH MCHC RDW Plt Count MPV APTT 58.0 H pCO2 48 H pO2 57.0 L HCO3 30.4 H ABG pH 7.41 ABG Total CO2 31.9 H ABG O2 Saturation 91.6 L ABG O2 Content 14.4 L ABG Base Excess 4.9 H ABG Hemoglobin 11.5 L ABG Carboxyhemoglobin 2.5 H POC ABG HHb (Measured) 8.1 H ABG Methemoglobin 0.5 ABG O2 Capacity 15.7 L Hgb O2 Saturation 88.8 L FiO2 35.0 Sodium Potassium Chloride Carbon Dioxide Anion Gap BUN Creatinine Est GFR ( Amer) Est GFR (Non-Af Amer) POC Glucose (mg/dL) Random Glucose Calcium Magnesium Total Bilirubin AST ALT Alkaline Phosphatase Total Protein Albumin Globulin Albumin/Globulin Ratio TSH 3rd Generation Critical Care Progress Note - Nutrition Nutrition: Nutrition Category Date Time Status Consistent Carbohydrate [DIET] Diets 06/29/16 Breakfast Ordered Attending/Attestation - Attestation I have personally seen and examined this patient.: Yes I have fully participated in the care of the patient.: Yes I have reviewed all pertinent clinical information: Yes Notes (Text): 06/30/16 16:17 The patient was seen and examined at the bedside. Patient care was discussed with resident Medical records, lab studies, and imaging were reviewed and management issues were discussed and formulated. Last 24H events reviewed. Agree with above treatment plans as outlined in 's note
[2016-06-30] MEDS: Digoxin 250 mcg (0.25 mg) Tab PO SCH (14:33)
--- NOTE | 2016-06-30 14:45 | PN ---
DATE: 06/30/2016 REFERRING PHYSICIAN: Dr. Axel Villagomez. SUBJECTIVE: He is out of bed to chair, feels better. Wants Huertas catheter out. Tolerated BiPAP wel l. No cough, no sputum production, no nausea, no vomiting. Left leg feels better. OBJECTIVE: GENERAL: No acute distress. VITAL SIGNS: Temp is 98, heart rate is 96, respiratory rate is 20, blood pressure 113/92, pulse ox 9 6% on nasal cannula. HEENT: Moist mucous membranes. Crowded airway. Mallampati score is 4. NECK: Supple. No JVD. LUNGS: Has a fair airflow with few rhonchi. HEART: Irregularly irregular. ABDOMEN: Soft, nontender. No organomegaly. EXTREMITIES: Trace edema. Still ankle cold to touch, but much better than yesterday. NEUROLOGIC: Awake, alert, follows simple commands. MEDICATIONS: He is on Amaryl 4 mg daily, Ativan 2 mg at bedtime and 2 mg q. 6 hours p.r.n. for agita tion, Cardizem 5 mg IV drip, Coumadin 7.5 mg will be given tonight, trazodone 200 mg at bedtime, Hald ol p.r.n. basis, IV heparin weight based protocol, digoxin 0.25 mg daily, Lasix 40 mg twice a day, Le vemir 40 units subQ twice a day, Lipitor 40 mg daily, metoprolol tartrate 25 mg twice a day, Mag-oxid e 400 mg 3 times a day, Singulair 10 mg daily, IV half normal saline 60 mL per hour, Zestril 20 mg da tremayne. LABORATORY DATA: Shows hemoglobin 13.0, hematocrit 40.2, WBC 12.9, platelet is 183. PTT is 49. ABG done this morning shows pH 7.41, pCO2 of 48, pO2 is 57. Sodium 137, potassium 3.9, chloride 98, bic arbonate 29, BUN 20, creatinine 0.9, glucose 173, calcium is 8.2, magnesium 1.7, total bilirubin 1.6, AST 22, ALT 31, alkaline phosphatase is 63, albumin is 3.8. TSH is 2.39. MICROBIOLOGY: Blood culture has been negative. IMPRESSION AND PLAN: Limb ischemia requiring mechanical thrombectomy, cardiomyopathy, atrial fibrill ation, pulmonary hypertension, chronic obstructive lung disease, obstructive sleep apnea syndrome, hy pertension, diabetes, alcohol abuse, status post revascularization of the left lower extremity with g ood result and clinically improved. The patient is noncompliant. Had a long discussion about antico agulation is important, sleep apnea, and it is important to use BiPAP. He expressed understanding an d willing to use it. Continue heparin, Coumadin, bronchodilators, BiPAP while sleeping. Fall precau tions. Follow up labs in the morning. We will follow with you. Critical care time is more than 35 minutes. Tia Godinez MD cc: [phone] TT: 06/30/2016 14:45:00 Confirmation # [id number] Dictation # [id number] jie
[2016-06-30] MEDS ORDERED: Magnesium Sulfate 2 GM in Sodium Chloride 0.9% 100 ML IVPB ONE (15:23)
--- NOTE | 2016-06-30 15:34 | CON ---
DATE: 06/30/2016 The patient is a 55-year-old male who has a history of depression, anxiety, at least 2 prior psychiatric hospitalizations, most recently in 11/2014 at [facility], who is not in psychi atric treatment, but is being prescribed Ativan 2 mg b.i.d. and trazodone 150 mg at bedtime by his in ternist, Dr. Villagomez, who psychiatry was consulted for delirium, associated aggressive and psychotic behavior while he was in the ICU. I met with patient at bedside and patient was quite calm today an d does not demonstrate any of the delusions and aggression and accusations and impulsive behavior antonette t he demonstrated yesterday, which occurred shortly after a procedure. The patient reports that he i s aware that he is in ICU, he knows that it is June and it is 2016. His focus is fair, though does waver at points and he does mumble sometimes, but can be redirected and with repetition, is consisten t with his responses. The patient denies any acute issues with mood. Denies any hopelessness or janeth cidal thoughts or homicidal thoughts and paranoid delusions were not elicited today unlike his presen tation yesterday. Fairly coherent and as I mentioned, consistent with his responses. He is reluctan t to engage in psychiatric treatment due to what he reportedly said was a negative experience after omaira simon hospitalized in [facility] because of the Seroquel reaction. His insight and judgme nt are considered to be fair. Impulse control is considered to be improved since yesterday. PSYCHIATRIC HISTORY: The patient has had 2 prior psychiatric hospitalizations, one at [facility] in 2008, the other one from 12/08/2015 to 12/13/2015, in which he was treated for depression and anxiety a nd he was given a diagnosis of bipolar II disorder, depression and discharged on Wellbutrin 75 mg p.o . b.i.d., Ativan 2 mg b.i.d. and trazodone 200 mg at bedtime. The patient also has 1 suicide attempt in 2009, in which he had walked into traffic and was saved by a good hinduism. The patient is curr ently not in any psychiatric outpatient treatment and receives psychiatric medications from Dr. Edward herrera, Ativan 2 mg b.i.d. and trazodone 150 at bedtime. The patient was born and raised in [place]. He is and he has 2 children. He lives by him self and he is currently retired. He used to work for the [employer]. 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 He used to have trouble with dependency with alcohol, cocaine, marijuana, and patient also has a history of on the streets in general. Vitals and lab work were reviewed by this provider. MEDICATIONS: Also reviewed and relevant psychiatric medications include Haldol 5 mg IV q. 6 p.r.n. f or agitation to be taken with Ativan 2 mg IV q. 6 p.r.n., trazodone 200 mg p.o. at bedtime as well as Ativan 2 mg a.m. and at bedtime standing. IMPRESSION: Delirium, improving, bipolar II disorder by history, anxiety disorder by history. RECOMMENDATIONS: We will continue with current recommendations of Haldol 5 mg q. 6 as well as Ativan 2 mg q. 6 p.r.n. for agitation. The patient is showing some improvement. No acute indications for changes in medication regimen. Would also continue with trazodone standing 150 at bedtime and Ativan 2 mg b.i.d. as patient feels like these medications are beneficial. Again, there are no acute indic ations for changes in his medication regimen at this time. The patient is adamant about not returnin g to the psychiatric unit if he should be medically cleared on the medical floor and psychiatry will continue to follow up with the patient to ensure that his mental status and behavior continues to imp rove. As of this time, there is no acute indication for a screening to be done as he does not show a ny dangerousness. However, delirium can have a waxing and waning presentation. His behavior is stil l unpredictable in consideration of that. Hence, why psychiatry will continue to follow up and ensur e improvement. Ravindra Meier MD cc: [id number] TT: 06/30/2016 15:33:32 Confirmation # [id number] Dictation # [id number] en
[2016-06-30] MEDS: Sodium Chloride 0.45% 1,000 ML IV SCH (16:26)
--- NOTE | 2016-06-30 16:50 | PN ---
DATE: 06/30/2016 LOCATION: ICU 128, bed #2. REASON FOR CONSULTATION AND FOLLOWUP: Atrial fibrillation, acute limb ischemia, hypertension, COPD, obstructive sleep apnea. HISTORY OF PRESENT ILLNESS: The patient is a 55-year-old male, very noncompliant patient with medica tions and medical followup, history of chronic atrial fibrillation, failed CORA cardioversion, history of cardiac catheterization 2 times. It showed nonischemic cardiomyopathy, history of atrial fibrill ation. The patient was offered for radioablation for the atrial fibrillation, but patient did not ke ep his appointment. He was admitted this admission with shortness of breath and developed a throbbin g pain in the left leg, and left leg became cold, so patient had thrombectomy yesterday. The patient now lying flat in bed without chest pain. His breathing is stable. Denies any palpitation. The randi barba's detailed cardiac workup has been mentioned in our consult dated 06/29/2016. PHYSICAL EXAMINATION: VITAL SIGNS: Blood pressure 100/54, respirations 20, pulse 90, patient afebrile. HEAD: Normocephalic. EYES: Pupils normal. Conjunctivae normal. NECK: JVP low. Carotid equal. THORAX: AP diameter normal. LUNGS: Clear. CARDIOVASCULAR: S1, S2. ABDOMEN: Soft, protuberant, no organomegaly. EXTREMITIES: No clubbing, no cyanosis. Left leg feels warm now. Yesterday leg was cold. LABORATORY DATA: WBC 12.9, hemoglobin 13.0, hematocrit 40.2, platelets 183. Sodium 137, potassium 3 .9, BUN 20, creatinine 0.9, random glucose 173, calcium 8.2. AST, ALT normal. Total protein and alb umin normal. DIAGNOSES: Acute limb ischemia, status post thrombectomy, atrial fibrillation, chronic, nonischemic cardiomyopathy, obesity, chronic obstructive pulmonary disease, obstructive sleep apnea, tobacco abus e, alcohol abuse, bipolar disorder, diabetes, morbid obesity. PLAN: We have made multiple appointments for him to have the ablation for atrial fibrillation, but helder painter did not keep his appointment. The patient is getting IV fluid, half saline 60 mL an hour. The chapis leach's Cardizem drip is changed to Cardizem 60 p.o. 4 times daily, warfarin 7.5 mg p.o. daily, digoxi n 0.25 daily, Lasix 40 p.o. b.i.d., insulin as ordered, Lipitor 40 mg p.o. daily, metoprolol 25 b.i.d ., 7 mg p.o. daily, lisinopril 20 mg p.o. daily, Amaryl 4 mg p.o. daily. Will continue present therapy. Will follow with you. Tia Cabello MD cc: [phone] TT: 06/30/2016 16:49:31 Confirmation # [id number] Dictation # [id number] dn
--- NOTE | 2016-06-30 19:09 | PN ---
DATE: 06/30/2016 SUBJECTIVE: The patient is 55 years old, seen in CCU, seen and examined, awake, alert, oriented, com municative. PHYSICAL EXAMINATION: VITAL SIGNS: He is afebrile, pulse 87, respirations 20, blood pressure 104/71. LUNGS: A few expiratory rhonchi bilateral lower lung. Poor air entry. HEART: S1, S2 audible. ABDOMEN: Soft, obese, nontender, no rebound, no guarding. NEUROLOGIC: He is awake and alert, communicative. EXTREMITIES: Bilateral legs, he has +2 edema. Right foot seems to be cold; however, he has feeble p ulse, dorsalis pedis. LABORATORY EXAMINATION: WBC is 12.9, hemoglobin 13, hematocrit 40, platelets 183. PTT is 58. Chemi stry: Sodium 137, potassium 3.9, chloride 98, CO2 of 29, BUN 20, creatinine 0.9, blood sugar of 72, total bilirubin 1.6. Blood cultures are negative. ASSESSMENT: 1. Right limb ischemia status post thrombectomy. 2. Chronic atrial fibrillation. 3. Chronic obstructive pulmonary disease. 4. Morbid obesity. 5. Obstructive sleep apnea. 6. History of alcohol abuse. 7. Bipolar disorder. 8. Insulin-dependent diabetes. 9. Nonischemic cardiomyopathy. PLAN: Currently, the patient is on IV fluids; that will be discontinued in a.m. He is on psych medic ation and getting nebulizer treatment. He is on diltiazem 60 mg q.i.d. and is getting Coumadin 7.5 m g daily. For now he is getting heparin. Continue him on Lasix 40 b.i.d. His blood sugar is being m onitored. Follow up his electrolyte and CBC and CMP in a.m. Ridge Velazquez MD cc: [phone] TT: 06/30/2016 19:08:57 Confirmation # [id number] Dictation # [id number] hunter
[2016-07-01 06:54] LABS: ADD MANUAL DIFF? NO
[2016-07-01 06:58] LABS: BASO # 0.03 K/mm3 (0.0-2.0); BASO % 0.3 % (0.0-3.0); EOS # 0.1 (0.0-0.7); EOS % 0.4 % (1.5-5.0); GRAN # 8.63 (1.4-6.5); GRAN % 72.1 % (50.0-68.0); HEMATOCRIT 34.8 % (42.0-52.0); MEAN CELL VOLUME 86.4 fL (80.0-105.0); MEAN CORPUSCULAR HGB CONC 32.5 g/dl (31.0-37.0); MEAN PLATELET VOLUME 11.5 fl (7.0-11.0); MONO # 1.2 (0.1-0.6); MONO % 10.2 % (1.0-6.0); PLATELET COUNT 193 10^3/uL (120.0-450.0); RED CELL DISTRIBUTION WIDTH 16.1 % (11.5-14.5)
[2016-07-01 07:08] LABS: INR 1.32 (0.93-1.08); PARTIAL THROMBOPLASTIN TIME 63.2 Seconds (23.7-30.8)
[2016-07-01 07:28] LABS: ALB/GLOB RATIO 1.1 (1.1-1.8); ALKALINE PHOSPHATASE 64 U/L (38-133); ALT/SGPT 25 U/L (7-56); AST/SGOT 28 U/L (15-59); BILIRUBIN,TOTAL 0.6 mg/dL (0.2-1.3); BLOOD UREA NITROGEN 24 mg/dL (7-21); CALCIUM 8.1 mg/dL (8.4-10.5); CARBON DIOXIDE 28 mmol/L (21-33); CHLORIDE 101 mmol/L (98-107); GFR AFRICAN-AMERICAN > 60; MAGNESIUM 2.1 mg/dL (1.7-2.2); PHOSPHOROUS 3.8 mg/dL (2.5-4.5); POTASSIUM 3.5 mmol/L (3.6-5.0); SODIUM 138 mmol/L (132-148); TOTAL PROTEIN 5.9 g/dL (5.8-8.3)
[2016-07-01 07:36] LABS: GLUCOSE,RANDOM 47 mg/dL (70-110)
[2016-07-01] MEDS: Insulin Reg-HIGH-Coverage SC SCH ×3 (07:45→22:27)
[2016-07-01] MEDS: Magnesium Oxide 400 mg Tab UD PO SCH ×3 (09:51→18:04)
[2016-07-01] MEDS: Insulin Detemir 100 units/ml Vial (Levemir) SC SCH ×2 (09:55→18:04)
--- NOTE | 2016-07-01 10:35 | CON ---
DATE: 07/01/2016 HISTORY OF PRESENT ILLNESS: The patient is a 55-year-old male with a history of depression a nd anxiety, at least 2 prior psychiatric hospitalizations, who is currently not in psychiatric treatm ent, but being prescribed 2 mg of Ativan b.i.d. and trazodone 150 mg at bedtime by his flute polisher, who is being monitored for aggressive and psychotic behavior, presumably after a reaction to the anesthe dontrell while he was in the ICU. I met with the patient at bedside on 06/30/2016. The patient appeared t o be at that point with resolution of symptoms. He was coherent and well oriented, though tire d, and he presents in the same manner today. He is well aware of his current circumstances, month an d year and he indicates that he would like to get better and that he does not have any issues with mo od symptoms or his psychiatric medications at this time. The patient is not hallucinating, he is not delusional, he is not paranoid, he is not demonstrating any hypervigilance. Thought processes demon strates an overall coherent male with relevant and consistent responses. His insight and judgment ar e considered to be fair and generally patient has been in good control on the unit for 24-48 hours. Impulse control is considered to be much improved since his episode of psychosis. VITAL SIGNS AND LABORATORY: Reviewed by this provider. RELEVANT PSYCHIATRIC MEDICATIONS: Include Haldol 5 mg IV q. 6 p.r.n. which patient has not received a ny administrations, Ativan 2 mg a.m. and at bedtime standing, Ativan 2 mg IV q. 6 p.r.n. agitation, w hich the patient has not received any doses, trazodone 200 mg at bedtime scheduled. IMPRESSION: 1. Delirium appears to be resolved. 2. Bipolar II disorder by history. 3. Anxiety disorder by history. RECOMMENDATIONS: We will continue with current treatment and plan. There is no acute indication for changes in his medications at this time. The patient is doing better and prior symptoms appear to b e very much related to the anesthesia given after his procedure. The patient again is not willing to consider signing himself into the psychiatric unit as he does not feel that there are any significan t issues with his mental health status at this time. Psychiatry will sign off at this time, but plea se feel free to reconsult if there are any changes in his functioning or behavior. Ravindra Meier MD cc: [id number] TT: 07/01/2016 10:34:39 Confirmation # [id number] Dictation # [id number] rn
[2016-07-01] MEDS ORDERED: Potassium Chloride 10 mEq 100 ML IVPB SCH (10:45)
[2016-07-01] MEDS ORDERED: Potassium Chloride 20 mEq ER Tab PO STA (11:34)
[2016-07-01] MEDS: Digoxin 250 mcg (0.25 mg) Tab PO SCH (15:11)
[2016-07-01] MEDS: Heparin25000 units/250ml 1/2NS 250 ML IV PRN (15:18)
--- NOTE | 2016-07-01 17:21 | PN ---
DATE: 07/01/2016 The patient is a 55-year-old seen and examined sitting in chair, eating and tolerating, comfortable. No chest pain, no shortness of breath. VITAL SIGNS: He is afebrile, pulse 89, respirations 18, blood pressure 119/61. LUNGS: Bilateral fair airflow. No rhonchi or crackle, accept a few soft crackle at bases. HEART: S1, S2 audible. ABDOMEN: Soft, very obese, nontender, no rebound, no guarding. NEUROLOGICALLY: He is awake and alert, communicative. Moves all extremities. LABORATORY EXAMINATION: WBC is 12, hemoglobin 11.3, hematocrit 34.8, platelets 193. PTT 69. Chemis try: Sodium 138, potassium 3.5, chloride 101, CO2 of 28, BUN 24, creatinine 0.9, blood sugar of 186. LFTs are within normal limits. ASSESSMENT: 1. Status post right leg vascular ischemia, status post thrombectomy. 2. Morbid obesity. 3. Chronic obstructive pulmonary disease. 4. Bipolar disorder. 5. Obstructive sleep apnea. 6. Insulin-dependent diabetes. 7. Hypokalemia. PLAN: The patient is being transferred out of ICU. Will give him p.o. Lasix. He is on Coumadin 7.5 mg daily. Will continue him on heparin. Once he is therapeutic will discontinue heparin. I will o rder for tomorrow's blood work including CBC, CMP, and PT/INR. Ridge Velazquez MD cc: [phone] TT: 07/01/2016 17:21:34 Confirmation # [id number] Dictation # [id number] carla
--- NOTE | 2016-07-01 17:46 | PN ---
DATE: 07/01/2016 REFERRING PHYSICIAN: Dr. Axel Villagomez. SUBJECTIVE: He is out of bed to chair; feels better, could not sleep well last night. He did not us e BiPAP. No headache, no rhinitis, no nausea, no vomiting, no chest pain, no palpitations. Has incr eased leg swelling. OBJECTIVE: GENERAL: In no acute distress. VITAL SIGNS: Temperature is 98, heart rate is 89, respiratory rate is 26, blood pressure 119/61, pul se ox is 96% on nasal cannula. HEENT: Moist mucous membranes. Crowded airway. Mallampati score is 4. NECK: Supple. No JVD. LUNGS: Has a few basilar crackles. HEART: S1, S2. ABDOMEN: Soft, nontender. No organomegaly. EXTREMITIES: Does have edema. NEUROLOGIC: Awake, alert, follows simple commands. MEDICATIONS: He is on Amaryl 4 mg with breakfast, Ativan 2 mg a.m. and at bedtime, Ativan 2 mg q.6 h ours p.r.n., Calcium 600 mg daily, Cardizem 60 mg q.i.d., Coumadin 7.5 mg daily, trazodone 200 mg at bedtime, Haldol 5 mg IV q.6 hours p.r.n., heparin weight based protocol, potassium 20 mEq daily, digo jyoti 0.25 mg daily, Lasix 40 mg twice a day, Levemir 40 units subQ twice a day, Lipitor 40 mg daily, m etoprolol tartrate 25 mg twice a day, mag oxide 400 mg daily, Protonix 40 mg daily, Singulair 10 mg d y, Zestril 20 mg daily. LABORATORY DATA: Shows hemoglobin 11.3, hematocrit 34.8, WBC 12.0, platelet is 193. INR 1.32, PTT i s 69. Sodium 138, potassium 3.5, chloride 101, bicarbonate 28, BUN 24, creatinine 0.9, glucose 186. Calcium is 8.1, phosphorus 3.8, magnesium 2.1, AST 28, ALT 25, alkaline phosphatase is 64, albumin i s 3.1. MICROBIOLOGY: Blood culture and culture is negative. IMPRESSION AND PLAN: Limb ischemia requiring mechanical thrombectomy, cardiomyopathy, atrial fibrill ation, pulmonary hypertension, chronic obstructive lung disease, obstructive sleep apnea syndrome, hy pertension, diabetes, history of alcohol abuse, heart failure. I had a long discussion with the farida ent about sleep apnea syndrome and its relation with atrial fibrillation, thromboembolic disease seco ndary to cardiac arrhythmia and needs to be anticoagulated. I also encouraged him to use CPAP. Fall precaution. Follow up electrolytes in the morning. Encourage CPAP use. Thank you and will follow with you. Tia Godinez MD cc: [phone] TT: 07/01/2016 17:46:25 Confirmation # [id number] Dictation # [id number] dn
[2016-07-02] MEDS: Heparin25000 units/250ml 1/2NS 250 ML IV PRN ×2 (02:30→15:33)
[2016-07-02 07:00] LABS: ADD MANUAL DIFF? NO
[2016-07-02 07:12] LABS: INR 1.36 (0.93-1.08)
[2016-07-02 07:19] LABS: ALB/GLOB RATIO 1.3 (1.1-1.8); ALKALINE PHOSPHATASE 73 U/L (38-133); ALT/SGPT 29 U/L (7-56); AST/SGOT 28 U/L (15-59); BILIRUBIN,TOTAL 0.6 mg/dL (0.2-1.3); BLOOD UREA NITROGEN 21 mg/dL (7-21); CALCIUM 8.7 mg/dL (8.4-10.5); CARBON DIOXIDE 28 mmol/L (21-33); CHLORIDE 100 mmol/L (95-110); GFR AFRICAN-AMERICAN > 60; GLUCOSE,RANDOM 78 mg/dL (70-110); POTASSIUM 3.9 mmol/L (3.6-5.0); SODIUM 140 mmol/L (132-148); TOTAL PROTEIN 6.8 g/dL (5.8-8.3)
[2016-07-02 07:31] LABS: BASO # 0.04 K/mm3 (0.0-2.0); BASO % 0.4 % (0.0-3.0); EOS # 0.1 (0.0-0.7); EOS % 1.1 % (1.5-5.0); GRAN # 7.07 (1.4-6.5); HEMATOCRIT 39.3 % (42.0-52.0); LYMPH # 1.9 (1.2-3.4); LYMPH % 19.3 % (22.0-35.0); MEAN CELL VOLUME 85.6 fL (80.0-105.0); MEAN CORPUSCULAR HEMOGLOBIN 28.5 pg (25.0-35.0); MEAN CORPUSCULAR HGB CONC 33.3 g/dl (31.0-37.0); MEAN PLATELET VOLUME 11.2 fl (7.0-11.0); MONO # 0.7 (0.1-0.6); MONO % 7.2 % (1.0-6.0); PLATELET COUNT 180 10^3/uL (120.0-450.0); RED CELL DISTRIBUTION WIDTH 16.1 % (11.5-14.5); WHITE BLOOD COUNT 9.8 10^3/ul (4.5-11.0)
[2016-07-02] MEDS: Pantoprazole 40 mg EC Tab PO SCH (08:30)
[2016-07-02] MEDS: Insulin Reg-HIGH-Coverage SC SCH ×4 (08:54→21:53)
--- NOTE | 2016-07-02 09:46 | PN ---
DATE: 07/02/2016 The patient is a 55-year-old, seen and examined, lying in bed. He states he could not sleep well las t night. He is tired. PHYSICAL EXAMINATION: VITAL SIGNS: He is afebrile, pulse 83, respirations 20, blood pressure 114/67. LUNGS: Bilateral fair airflow, no rhonchi or crackle. HEART: S1, S2 audible. ABDOMEN: Soft, nontender, obese. No hepatosplenomegaly. NEUROLOGIC: He is awake and alert, communicative. Moves all extremities. LABORATORY EXAMINATION: WBCs 9.8, hemoglobin 13, hematocrit 39, platelet of 180. His PT is 14.7, IN R 1.36. Chemistry: Sodium 140, potassium 3.9, chloride 100, CO2 28, BUN 21, creatinine 0.9, blood s ugar of 78. ASSESSMENT: 1. Status post right lower extremity ischemia, status post thrombectomy. 2. Morbid obesity. 3. Electrolyte imbalance. 4. Insulin-dependent diabetes. 5. Obstructive sleep apnea. 6. Chronic obstructive pulmonary disease. 7. Bipolar disorder. PLAN: We will continue patient on heparin. We will give him 10 mg of Coumadin today. Once his INR is above 2, we will discontinue heparin and I will follow up PT/INR in a.m. Ridge Velazquez MD cc: [phone] TT: 07/02/2016 09:45:10 Confirmation # [id number] Dictation # [id number] en
[2016-07-02] MEDS: Potassium Chloride 20 mEq ER Tab PO SCH (09:55)
[2016-07-02] MEDS: Insulin Detemir 100 units/ml Vial (Levemir) SC SCH ×2 (09:55→17:44)
[2016-07-02] MEDS: Magnesium Oxide 400 mg Tab UD PO SCH ×3 (09:56→17:40)
--- NOTE | 2016-07-02 14:13 | CP.PCM.PN ---
Subjective - Date & Time of Evaluation Date of Evaluation: 07/02/16 Time of Evaluation: 14:11 - Subjective Subjective: pt needs angiocath insertion. Objective - Vital Signs/Intake and Output Vital Signs (last 24 hours): Temp Pulse Resp BP Pulse Ox 99.0 F 82 20 113/62 94 L 07/02/16 12:00 07/02/16 12:00 07/02/16 12:00 07/02/16 12:00 07/02/16 06:00 Intake and Output: 07/02/16 07/02/16 06:59 18:59 Intake Total 780 Output Total 504 Balance 276 - Medications Medications: Current Medications Atorvastatin Calcium (Lipitor) 40 mg PO DIN [facility] Last Admin: 07/01/16 18:04 Dose: 40 mg Calcium Carbonate (Caltrate) 600 mg PO DAILY [facility] Last Admin: 07/02/16 09:52 Dose: 600 mg Digoxin (Lanoxin) 0.25 mg PO 1400 [facility] Last Admin: 07/01/16 15:11 Dose: 0.25 mg Diltiazem HCl (Cardizem) 60 mg PO QID [facility] Last Admin: 07/02/16 09:52 Dose: 60 mg Furosemide (Lasix) 40 mg PO BID [facility] Last Admin: 07/02/16 09:55 Dose: 40 mg Glimepiride (Amaryl) 4 mg PO BRK [facility] Last Admin: 07/02/16 08:51 Dose: 4 mg Haloperidol Lactate (Haldol) 5 mg IVP Q6 PRN; Protocol PRN Reason: Agitation Heparin Sodium/Sodium Chloride (Heparin 58930 Units/250ml 1/2 Normal Saline) 250 mls @ 19.006 mls/hr IV .[id number] PRN; Protocol; 14.6 UNITS/KG/HR PRN Reason: ADJUST RATE PER PROTOCOL Last Admin: 07/02/16 02:30 Dose: 27.338 mls/hr Insulin Detemir (Levemir) 40 unit SC BID [facility] Last Admin: 07/02/16 09:55 Dose: Not Given Insulin Human Regular (Humulin R High) 0 units SC ACHS [facility] PRN Reason: Protocol Last Admin: 07/02/16 11:54 Dose: 2 units Lisinopril (Zestril) 20 mg PO DAILY [facility] Last Admin: 07/02/16 09:56 Dose: 20 mg Lorazepam (Ativan) 2 mg PO [facility] PRN Reason: Protocol Last Admin: 07/02/16 09:52 Dose: 2 mg Lorazepam (Ativan) 2 mg IVP Q6 PRN; Protocol PRN Reason: Agitation Magnesium Oxide (Mag-Ox) 400 mg PO TID [facility] Last Admin: 07/02/16 09:56 Dose: 400 mg Metoprolol Tartrate (Lopressor) 25 mg PO BID [facility] Last Admin: 07/02/16 09:55 Dose: 25 mg Montelukast Sodium (Singulair) 10 mg PO DAILY [facility] Last Admin: 07/02/16 09:56 Dose: 10 mg Pantoprazole Sodium (Protonix Ec Tab) 40 mg PO ACB [facility] Last Admin: 07/02/16 08:30 Dose: 40 mg Potassium Chloride (K-Dur 20 Meq Er Tab) 20 meq PO DAILY [facility] Last Admin: 07/02/16 09:55 Dose: 20 meq Trazodone HCl (Desyrel) 200 mg PO HS [facility] Last Admin: 07/01/16 22:08 Dose: 200 mg Warfarin Sodium (Coumadin) 10 mg PO HS [facility] PRN Reason: Protocol - Labs Labs: 07/02/16 06:57 07/02/16 06:57 PT 14.7 Seconds (9.9-11.8) H 07/02/16 06:57 INR 1.36 (0.93-1.08) H 07/02/16 06:57 APTT 36.6 Seconds (23.7-30.8) H 07/02/16 13:21 Assessment and Plan - Assessment and Plan (Free Text) Assessment: 20 guage angiocath inserted in rt wrist area.
[2016-07-02] MEDS: Digoxin 250 mcg (0.25 mg) Tab PO SCH (14:38)
--- NOTE | 2016-07-02 15:59 | PN ---
DATE: 07/02/2016 REFERRING PHYSICIAN: Dr. Axel Villagomez SUBJECTIVE: The patient is sitting side of the bed. Night was unremarkable. No headache, no rhinit is, no cough, no sputum production, no nausea, no vomiting, no diarrhea, no leg pain, but has increas ed leg swelling. OBJECTIVE: GENERAL: No acute distress. VITAL SIGNS: Temp is 99, heart rate is 82, respiratory rate is 20, blood pressure 113/62. HEENT: Moist mucous membrane. Crowded airway. Mallampati score 4. NECK: Short, thick neck. LUNGS: Have a fair airflow with few rhonchi. HEART: S1 and S2. ABDOMEN: Soft, nontender, no organomegaly. EXTREMITIES: Has significant edema, left more than the right. NEUROLOGIC: Awake, alert, follows simple commands. MEDICATIONS: He is on Amaryl 4 mg daily, Ativan 2 mg a.m. and at bedtime, Ativan 2 mg q. 6 hours p.r .n. for agitation, calcium carbonate 600 mg daily, Cardizem 60 mg q.i.d., Coumadin 10 mg will be give n, trazodone 200 mg at bedtime, Haldol 5 mg q. 6 hours p.r.n., on IV heparin weight-based protocol, i nsulin coverage, potassium 20 mEq daily, digoxin 0.25 mg daily, Lasix 40 mg twice a day, Levemir 40 u nits subQ twice a day, Lipitor 40 mg daily, metoprolol tartrate 25 mg twice a day, mag oxide 400 mg 3 times a day, Protonix 40 mg daily, Singulair 10 mg daily, Zestril 20 mg daily. LABORATORY DATA: Shows hemoglobin 13.1, hematocrit 39.3, WBC 9.8, platelet is 180. INR 1.36, PTT is 37. Sodium 140, potassium 3.9, chloride 100, bicarbonate 28, BUN 21, creatinine 0.9, glucose is 155 , calcium is 8.7, alkaline phosphatase is 73, AST 28, ALT 29, albumin is 3.8. IMPRESSION AND PLAN: Status post limb ischemia, probably embolic phenomena from his uncontrolled atr ial fibrillation and noncompliant of Coumadin, also noncompliant with CPAP/BiPAP. Last sleep study w as a few years ago. Has cardiomyopathy, pulmonary hypertension, chronic obstructive lung disease, hy pertension, diabetes, history of alcohol abuse. I agree with the present management. We will contin ue to encourage BiPAP. Continue anticoagulation, being switched to Coumadin. INR in the morning. M ay increase Lasix to 40 mg q. 8 hours. Follow up electrolytes in the morning. Fall precautions. Thank you and we will follow with you. Tia Godinez MD cc: [phone] TT: 07/02/2016 15:58:20 Confirmation # [id number] Dictation # [id number] en
[2016-07-02 21:09] LABS: INR 1.57 (0.93-1.08)
[2016-07-02 21:11] LABS: PARTIAL THROMBOPLASTIN TIME 123.9 Seconds (23.7-30.8)
--- NOTE | 2016-07-03 00:16 | CP.PCM.PN ---
Subjective - Date & Time of Evaluation Date of Evaluation: 07/03/16 Time of Evaluation: 00:16 - Subjective Subjective: # 24 angiocath was inserted in left index finger base. Dx:Poor venous access. Objective - Vital Signs/Intake and Output Vital Signs (last 24 hours): Temp Pulse Resp BP Pulse Ox 99.0 F 93 H 20 131/89 94 L 07/02/16 12:00 07/02/16 21:32 07/02/16 12:00 07/02/16 21:33 07/02/16 06:00 Intake and Output: 07/02/16 07/03/16 18:59 06:59 Intake Total 2480 0 Output Total 2200 Balance 280 0 - Medications Medications: Current Medications Atorvastatin Calcium (Lipitor) 40 mg PO DIN [facility] Last Admin: 07/02/16 17:40 Dose: 40 mg Calcium Carbonate (Caltrate) 600 mg PO DAILY [facility] Last Admin: 07/02/16 09:52 Dose: 600 mg Digoxin (Lanoxin) 0.25 mg PO 1400 [facility] Last Admin: 07/02/16 14:38 Dose: 0.25 mg Diltiazem HCl (Cardizem) 60 mg PO QID [facility] Last Admin: 07/02/16 21:32 Dose: 60 mg Furosemide (Lasix) 40 mg PO Q8 [facility] Last Admin: 07/02/16 21:33 Dose: 40 mg Glimepiride (Amaryl) 4 mg PO BRK [facility] Last Admin: 07/02/16 08:51 Dose: 4 mg Haloperidol Lactate (Haldol) 5 mg IVP Q6 PRN; Protocol PRN Reason: Agitation Heparin Sodium/Sodium Chloride (Heparin 67417 Units/250ml 1/2 Normal Saline) 250 mls @ 19.006 mls/hr IV .[id number] PRN; Protocol; 14.6 UNITS/KG/HR PRN Reason: ADJUST RATE PER PROTOCOL Last Titration: 07/02/16 22:15 Dose: 19.5 units/kg/hr Insulin Detemir (Levemir) 40 unit SC BID [facility] Last Admin: 07/02/16 17:44 Dose: 40 unit Insulin Human Regular (Humulin R High) 0 units SC ACHS [facility] PRN Reason: Protocol Last Admin: 07/02/16 21:53 Dose: Not Given Lisinopril (Zestril) 20 mg PO DAILY [facility] Last Admin: 07/02/16 09:56 Dose: 20 mg Lorazepam (Ativan) 2 mg PO [facility] PRN Reason: Protocol Last Admin: 07/02/16 21:31 Dose: 2 mg Lorazepam (Ativan) 2 mg IVP Q6 PRN; Protocol PRN Reason: Agitation Magnesium Oxide (Mag-Ox) 400 mg PO TID [facility] Last Admin: 07/02/16 17:40 Dose: 400 mg Metoprolol Tartrate (Lopressor) 25 mg PO BID [facility] Last Admin: 07/02/16 17:40 Dose: 25 mg Montelukast Sodium (Singulair) 10 mg PO DAILY [facility] Last Admin: 07/02/16 09:56 Dose: 10 mg Pantoprazole Sodium (Protonix Ec Tab) 40 mg PO ACB [facility] Last Admin: 07/02/16 08:30 Dose: 40 mg Potassium Chloride (K-Dur 20 Meq Er Tab) 20 meq PO DAILY [facility] Last Admin: 07/02/16 09:55 Dose: 20 meq Trazodone HCl (Desyrel) 200 mg PO HS [facility] Last Admin: 07/02/16 21:31 Dose: 200 mg Warfarin Sodium (Coumadin) 10 mg PO HS [facility] PRN Reason: Protocol Last Admin: 07/02/16 21:31 Dose: 10 mg - Labs Labs: 07/02/16 06:57 07/02/16 06:57 PT 17.0 Seconds (9.9-11.8) H 07/02/16 21:00 INR 1.57 (0.93-1.08) H 07/02/16 21:00 APTT 123.9 Seconds (23.7-30.8) H* 07/02/16 21:00
[2016-07-03] MEDS ORDERED: Albuterol-Ipratrop 3 mg / 0.5 (3 ml) UD IH PRN ×2 (00:40→04:48)
--- NOTE | 2016-07-03 01:30 | CP.PCM.PN ---
Subjective - Date & Time of Evaluation Date of Evaluation: 07/03/16 Time of Evaluation: 01:26 (Seen earlier.) - Subjective Subjective: Patient was seen at bedside. States that he wants to sign out because he is not getting his medications, he is not getting his nebulizer treatment. Has no other complaints. Received Ativan 2 mg PO at about 10 PM. I convinced him to stay. Medical record was reviewed. This 55 years old white male was admitted with left leg pain,Acute left leg ischemia. PMH : COPD,CHF,atrial fibrillation, DM, non compliance, HTN, dyslipidemia, morbid obesity. Objective - Vital Signs/Intake and Output Vital Signs (last 24 hours): Temp Pulse Resp BP Pulse Ox 99.0 F 93 H 20 131/89 94 L 07/02/16 12:00 07/02/16 21:32 07/02/16 12:00 07/02/16 21:33 07/02/16 06:00 Intake and Output: 07/02/16 07/03/16 18:59 06:59 Intake Total 2480 0 Output Total 2200 Balance 280 0 - Medications Medications: Current Medications Albuterol/Ipratropium (Duoneb 3 Mg/0.5 Mg (3 Ml) Ud) 3 ml IH Q6H PRN PRN Reason: Shortness of Breath Atorvastatin Calcium (Lipitor) 40 mg PO DIN [facility] Last Admin: 07/02/16 17:40 Dose: 40 mg Calcium Carbonate (Caltrate) 600 mg PO DAILY [facility] Last Admin: 07/02/16 09:52 Dose: 600 mg Digoxin (Lanoxin) 0.25 mg PO 1400 [facility] Last Admin: 07/02/16 14:38 Dose: 0.25 mg Diltiazem HCl (Cardizem) 60 mg PO QID [facility] Last Admin: 07/02/16 21:32 Dose: 60 mg Furosemide (Lasix) 40 mg PO Q8 [facility] Last Admin: 07/02/16 21:33 Dose: 40 mg Glimepiride (Amaryl) 4 mg PO BRK [facility] Last Admin: 07/02/16 08:51 Dose: 4 mg Haloperidol Lactate (Haldol) 5 mg IVP Q6 PRN; Protocol PRN Reason: Agitation Heparin Sodium/Sodium Chloride (Heparin 54712 Units/250ml 1/2 Normal Saline) 250 mls @ 19.006 mls/hr IV .[id number] PRN; Protocol; 14.6 UNITS/KG/HR PRN Reason: ADJUST RATE PER PROTOCOL Last Titration: 07/02/16 22:15 Dose: 19.5 units/kg/hr Insulin Detemir (Levemir) 40 unit SC BID [facility] Last Admin: 07/02/16 17:44 Dose: 40 unit Insulin Human Regular (Humulin R High) 0 units SC ACHS [facility] PRN Reason: Protocol Last Admin: 07/02/16 21:53 Dose: Not Given Lisinopril (Zestril) 20 mg PO DAILY [facility] Last Admin: 07/02/16 09:56 Dose: 20 mg Lorazepam (Ativan) 2 mg PO [facility] PRN Reason: Protocol Last Admin: 07/02/16 21:31 Dose: 2 mg Lorazepam (Ativan) 2 mg IVP Q6 PRN; Protocol PRN Reason: Agitation Last Admin: 07/03/16 00:44 Dose: 2 mg Magnesium Oxide (Mag-Ox) 400 mg PO TID [facility] Last Admin: 07/02/16 17:40 Dose: 400 mg Metoprolol Tartrate (Lopressor) 25 mg PO BID [facility] Last Admin: 07/02/16 17:40 Dose: 25 mg Montelukast Sodium (Singulair) 10 mg PO DAILY [facility] Last Admin: 07/02/16 09:56 Dose: 10 mg Pantoprazole Sodium (Protonix Ec Tab) 40 mg PO ACB [facility] Last Admin: 07/02/16 08:30 Dose: 40 mg Potassium Chloride (K-Dur 20 Meq Er Tab) 20 meq PO DAILY [facility] Last Admin: 07/02/16 09:55 Dose: 20 meq Trazodone HCl (Desyrel) 200 mg PO HS [facility] Last Admin: 07/02/16 21:31 Dose: 200 mg Warfarin Sodium (Coumadin) 10 mg PO HS [facility] PRN Reason: Protocol Last Admin: 07/02/16 21:31 Dose: 10 mg - Labs Labs: 07/02/16 06:57 07/02/16 06:57 PT 17.0 Seconds (9.9-11.8) H 07/02/16 21:00 INR 1.57 (0.93-1.08) H 07/02/16 21:00 APTT 123.9 Seconds (23.7-30.8) H* 07/02/16 21:00 - Constitutional Appears: Well, No Acute Distress - Head Exam Head Exam: ATRAUMATIC, NORMAL INSPECTION, NORMOCEPHALIC - Eye Exam Eye Exam: Normal appearance - ENT Exam ENT Exam: Mucous Membranes Moist, Normal External Ear Exam - Neck Exam Neck Exam: Normal Inspection - Respiratory Exam Respiratory Exam: Wheezes (Minimal.), NORMAL BREATHING PATTERN. absent: Accessory Muscle Use, Rales, Rhonchi, Respiratory Distress, Stridor - Cardiovascular Exam Cardiovascular Exam: absent: JVD - GI/Abdominal Exam GI & Abdominal Exam: Normal Bowel Sounds. absent: Distended - Rectal Exam Rectal Exam: Deferred - Extremities Exam Extremities Exam: Normal Inspection - Back Exam Back Exam: NORMAL INSPECTION - Neurological Exam Neurological Exam: Alert, Oriented x3 - Psychiatric Exam Psychiatric exam: Normal Affect, Normal Mood - Skin Skin Exam: Normal Color Assessment and Plan - Assessment and Plan (Free Text) Assessment: A/P:COPD. CHF. Acute left leg ischemia. HTN. DM. Morbid obesity. Duoneb neb treatment as ordered. Will give ativan 2 mg IV as ordered. 02:28. Patient is confused. Pulled out IV second time. Wants to go home. Not competent enough to sign AMA form. Will restrain him.
[2016-07-03] MEDS: Heparin25000 units/250ml 1/2NS 250 ML IV PRN (04:48)
[2016-07-03 06:52] LABS: ADD MANUAL DIFF? NO
[2016-07-03 07:04] LABS: BASO # 0.03 K/mm3 (0.0-2.0); BASO % 0.3 % (0.0-3.0); EOS # 0.1 (0.0-0.7); EOS % 0.5 % (1.5-5.0); GRAN % 78.6 % (50.0-68.0); HEMATOCRIT 39.4 % (42.0-52.0); LYMPH # 1.4 (1.2-3.4); LYMPH % 13.8 % (22.0-35.0); MEAN CELL VOLUME 85.7 fL (80.0-105.0); MEAN CORPUSCULAR HEMOGLOBIN 28.3 pg (25.0-35.0); MEAN PLATELET VOLUME 11.3 fl (7.0-11.0); MONO # 0.7 (0.1-0.6); MONO % 6.8 % (1.0-6.0); PLATELET COUNT 187 10^3/uL (120.0-450.0); RED CELL DISTRIBUTION WIDTH 15.9 % (11.5-14.5); WHITE BLOOD COUNT 9.9 10^3/ul (4.5-11.0)
[2016-07-03 07:20] LABS: INR 1.46 (0.93-1.08)
[2016-07-03 07:24] LABS: PARTIAL THROMBOPLASTIN TIME 70.9 Seconds (23.7-30.8)
[2016-07-03 07:33] LABS: TROPONIN I 0.06 ng/mL
[2016-07-03 07:44] LABS: ALB/GLOB RATIO 1.3 (1.1-1.8); ALKALINE PHOSPHATASE 71 U/L (38-133); ALT/SGPT 34 U/L (7-56); AST/SGOT 25 U/L (15-59); BILIRUBIN,TOTAL 0.7 mg/dL (0.2-1.3); BLOOD UREA NITROGEN 23 mg/dL (7-21); CALCIUM 8.8 mg/dL (8.4-10.5); CARBON DIOXIDE 29 mmol/L (21-33); CHLORIDE 99 mmol/L (98-107); GFR AFRICAN-AMERICAN > 60; GLUCOSE,RANDOM 203 mg/dL (70-110); MAGNESIUM 1.8 mg/dL (1.7-2.2); PHOSPHOROUS 3.6 mg/dL (2.5-4.5); POTASSIUM 4.4 mmol/L (3.6-5.0); SODIUM 137 mmol/L (132-148); TOTAL PROTEIN 6.7 g/dL (5.8-8.3)
[2016-07-03] MEDS: Pantoprazole 40 mg EC Tab PO SCH (08:12)
[2016-07-03] MEDS: Insulin Reg-HIGH-Coverage SC SCH ×4 (08:12→21:37)
[2016-07-03] MEDS: Insulin Detemir 100 units/ml Vial (Levemir) SC SCH ×2 (09:57→17:58)
[2016-07-03] MEDS: Potassium Chloride 20 mEq ER Tab PO SCH (09:57)
[2016-07-03] MEDS: Magnesium Oxide 400 mg Tab UD PO SCH ×3 (09:57→17:58)
--- NOTE | 2016-07-03 11:27 | PN ---
DATE: 07/03/2016 The patient is in room 264, bed 1. REASON FOR CONSULTATION AND FOLLOWUP: Atrial fibrillation, acute limb ischemia, hypertension, COPD, obstructive sleep apnea, obesity. HISTORY OF PRESENT ILLNESS: The patient is a 55-year-old male, very poor noncompliant patient with medication and followup, history of chronic atrial fibrillation - failed CORA cardioversion, history o f catheterization x 2, which showed nonischemic cardiomyopathy, atrial fibrillation. The patient was offered radioablation, and he did not keep his appointment to go to it architecture consultant. Now he was admitted with shortness of breath and developed throbbing pain in the left leg, and leg became cold. So the patient had thrombectomy. The patient, last night, was agitated, and Ativan was given. Now the patient is sleeping. He is lying flat in bed without any acute respiratory distress. PHYSICAL EXAMINATION: VITAL SIGNS: Blood pressure 128/79, respirations 22, pulse 100, temperature 98.2. HEAD: Normocephalic. EYES: Pupils are normal. Conjunctivae are normal. NECK: JVP low. Carotids equal. THORAX: AP diameter normal. LUNGS: No significant rales. CARDIOVASCULAR: S1, S2, irregular rhythm due to atrial fibrillation. ABDOMEN: Protuberant. No organomegaly. EXTREMITIES: No clubbing, no cyanosis. LABORATORY DATA: WBC 9.9, hemoglobin 13.0, hematocrit 39.4, platelets 187. Sodium 137, potassium 4. 4, BUN 23, creatinine 0.9, glucose 203, calcium 8.8, phosphorus 3.6, magnesium 1.8. Total protein an d albumin normal. DIAGNOSES: Acute limb ischemia status post thrombectomy, atrial fibrillation, nonischemic cardiomyop athy, obesity, chronic obstructive pulmonary disease, obstructive sleep apnea, tobacco abuse, alcohol abuse, bipolar disorder, diabetes. PLAN: The patient's Lasix has been increased to 40 q. 8 hours. The patient is on Coumadin. Today's prothrombin time is 15.8, INR 1.46. Continue warfarin 10 mg daily, and we will follow up PT/INR. I n the meantime, heparin is continued. Digoxin 0.25 p.o. daily, insulin as ordered, Lipitor 40 mg suresh ly, metoprolol 25 b.i.d., mag oxide 400 mg t.i.d., Protonix 40 mg daily, Singulair 10 mg p.o. daily, lisinopril 20 mg p.o. daily. We will continue present therapy. We will follow with you. Tia Cabello MD cc: [id number] TT: 07/03/2016 11:26:54 Confirmation # [id number] Dictation # [id number] carla
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
[2016-07-03] MEDS: Digoxin 250 mcg (0.25 mg) Tab PO SCH (15:15)
--- NOTE | 2016-07-03 19:40 | PN ---
DATE: 07/03/2016 REFERRING PHYSICIAN: Dr. Axel Villagomez. SUBJECTIVE: He is sedated, ____ sleepy, arousable, earlier today very agitated. No nausea, no vomit ing, and no diarrhea. Decreased leg swelling. OBJECTIVE: GENERAL: No acute distress. VITAL SIGNS: Temperature is 98, heart rate is 85, respiratory rate is 20, blood pressure 125/95. Pu lse ox 92% on nasal cannula. HEENT: Moist mucous membranes. Crowded airway. Mallampati score is 4. NECK: Supple. No JVD. LUNGS: Has a few scattered rhonchi. HEART: S1 and S2. ABDOMEN: Obese, soft, nontender. EXTREMITIES: Decreased edema. NEUROLOGIC: Sleepy, sedated. MEDICATIONS: He is on Amaryl 4 mg daily, Ativan 2 mg a.m. and at bedtime, also Ativan 2 mg q. 4 hour s, calcium carbonate 600 mg daily, Cardizem 60 mg q.i.d., Coumadin 10 mg given yesterday, trazodone 2 00 mg at bedtime, DuoNeb q. 6 hours, Haldol 5 mg IV q. 4 hours p.r.n. for anxiety, heparin with lio ght-based protocol, insulin coverage, potassium 20 mEq daily, digoxin 0.25 mg daily, Lasix 40 mg q. 8 hours, Levemir 40 units subQ twice a day, Lipitor 40 mg daily, metoprolol tartrate 25 mg twice a day , naproxen 500 mg 3 times a day, Protonix 40 mg daily, Singulair 10 mg daily, Zestril 20 mg daily. LABORATORY DATA: Shows hemoglobin 13.0, hematocrit 39.4, WBC 9.9, platelet count is 187. PTT 78. I NR 1.46. Sodium 137, potassium 4.4, chloride 99, bicarbonate 29, BUN 23, creatinine 0.9, glucose 135 , calcium is 8.8, phosphorus is 3.6, magnesium is 1.8. AST 25, ALT 34, alkaline phosphatase is 71. Troponin 0.06. Albumin 3.8. IMPRESSION AND PLAN: Status post limb ischemia probably embolic phenomenon requiring mechanical thro mbectomy, obstructive sleep apnea syndrome, obstructive lung disease, cardiomyopathy, pulmonary hyper tension, hypertension, diabetes, history of alcohol abuse, obesity. Pulmonary point of view, doing o celena, not very compliant with the BiPAP, will continue encourage to use BiPAP while sleeping. Keep he ad elevated at 45 degrees. Avoid sedation. Continue anticoagulation. 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 Follow up labs in the morning. We will follow with you. Tia Godinez MD cc: [phone] TT: 07/03/2016 19:39:54 Confirmation # [id number] Dictation # [id number] carla
--- NOTE | 2016-07-04 02:18 | CP.PCM.PN ---
Subjective - Date & Time of Evaluation Date of Evaluation: 07/04/16 Time of Evaluation: 02:17 - Subjective Subjective: It was requested to renew wrist restraint order. Patient was seen at bedside. He is asleep now. I was told that he gets agitated intermittently. Medical record was reviewed. This 55 years old white male was admitted with left leg pain,Acute left leg ischemia. Has PMH of COPD,CHF,atrial fibrillation, DM, non compliance, HTN, dyslipidemia , morbid obesity. Objective - Vital Signs/Intake and Output Vital Signs (last 24 hours): Temp Pulse Resp BP Pulse Ox 97.8 F 99 H 20 116/77 96 07/04/16 00:01 07/04/16 02:00 07/04/16 00:01 07/04/16 00:01 07/03/16 19:47 Intake and Output: 07/03/16 07/04/16 18:59 06:59 Intake Total 0 540 Output Total 775 Balance 0 -235 - Medications Medications: Current Medications Albuterol/Ipratropium (Duoneb 3 Mg/0.5 Mg (3 Ml) Ud) 3 ml IH Q2H PRN PRN Reason: Shortness of Breath Last Admin: 07/03/16 05:00 Dose: 3 ml Atorvastatin Calcium (Lipitor) 40 mg PO DIN [facility] Last Admin: 07/03/16 17:58 Dose: Not Given Calcium Carbonate (Caltrate) 600 mg PO DAILY [facility] Last Admin: 07/03/16 09:56 Dose: 600 mg Digoxin (Lanoxin) 0.25 mg PO 1400 [facility] Last Admin: 07/03/16 15:15 Dose: Not Given Diltiazem HCl (Cardizem) 60 mg PO QID [facility] Last Admin: 07/03/16 21:29 Dose: 60 mg Furosemide (Lasix) 40 mg PO Q8 [facility] Last Admin: 07/03/16 21:29 Dose: 40 mg Glimepiride (Amaryl) 4 mg PO BRK [facility] Last Admin: 07/03/16 08:11 Dose: 4 mg Haloperidol Lactate (Haldol) 5 mg IVP Q4 PRN; Protocol PRN Reason: Anxiety Heparin Sodium/Sodium Chloride (Heparin 90770 Units/250ml 1/2 Normal Saline) 250 mls @ 19.006 mls/hr IV .[id number] PRN; Protocol; 14.6 UNITS/KG/HR PRN Reason: ADJUST RATE PER PROTOCOL Last Admin: 07/03/16 04:48 Dose: 25.4 mls/hr Insulin Detemir (Levemir) 40 unit SC BID [facility] Last Admin: 07/03/16 17:58 Dose: Not Given Insulin Human Regular (Humulin R High) 0 units SC ACHS [facility] PRN Reason: Protocol Last Admin: 07/03/16 21:37 Dose: Not Given Lisinopril (Zestril) 20 mg PO DAILY [facility] Last Admin: 07/03/16 09:58 Dose: 20 mg Lorazepam (Ativan) 2 mg PO [facility] PRN Reason: Protocol Last Admin: 07/03/16 21:30 Dose: Not Given Lorazepam (Ativan) 2 mg IVP Q4 [facility] PRN Reason: Protocol Last Admin: 07/04/16 00:32 Dose: 2 mg Magnesium Oxide (Mag-Ox) 400 mg PO TID [facility] Last Admin: 07/03/16 17:58 Dose: Not Given Metoprolol Tartrate (Lopressor) 25 mg PO BID [facility] Last Admin: 07/03/16 17:58 Dose: Not Given Montelukast Sodium (Singulair) 10 mg PO DAILY [facility] Last Admin: 07/03/16 10:03 Dose: 10 mg Pantoprazole Sodium (Protonix Ec Tab) 40 mg PO ACB [facility] Last Admin: 07/03/16 08:12 Dose: 40 mg Potassium Chloride (K-Dur 20 Meq Er Tab) 20 meq PO DAILY [facility] Last Admin: 07/03/16 09:57 Dose: 20 meq Trazodone HCl (Desyrel) 200 mg PO HS [facility] Last Admin: 07/03/16 21:29 Dose: 200 mg Warfarin Sodium (Coumadin) 10 mg PO HS [facility] PRN Reason: Protocol Last Admin: 07/03/16 21:29 Dose: 10 mg - Labs Labs: 07/03/16 06:30 07/03/16 06:30 PT 15.8 Seconds (9.9-11.8) H 07/03/16 06:30 INR 1.46 (0.93-1.08) H 07/03/16 06:30 APTT 77.7 Seconds (23.7-30.8) H* 07/03/16 12:30 - Constitutional Appears: Well, No Acute Distress - Head Exam Head Exam: ATRAUMATIC, NORMAL INSPECTION, NORMOCEPHALIC - Eye Exam Additional comments: Asleep. - ENT Exam ENT Exam: Normal External Ear Exam - Neck Exam Neck Exam: Normal Inspection - Respiratory Exam Respiratory Exam: NORMAL BREATHING PATTERN - Cardiovascular Exam Cardiovascular Exam: absent: JVD - GI/Abdominal Exam GI & Abdominal Exam: absent: Distended - Rectal Exam Rectal Exam: Deferred - Extremities Exam Extremities Exam: Normal Inspection - Back Exam Back Exam: NORMAL INSPECTION (Asleep) - Psychiatric Exam Additional comments: Asleep - Skin Skin Exam: Normal Color Assessment and Plan - Assessment and Plan (Free Text) Assessment: A/P:Intermittent agitation. CHF. Left lower extremity ischemia. Obesity. Bilateral wrist restraint order was renewed. Continue present management.
[2016-07-04] MEDS: Heparin25000 units/250ml 1/2NS 250 ML IV PRN ×2 (03:26→08:45)
[2016-07-04 07:21] LABS: ALB/GLOB RATIO 1.2 (1.1-1.8); ALKALINE PHOSPHATASE 69 U/L (38-133); ALT/SGPT 35 U/L (7-56); AST/SGOT 21 U/L (15-59); BILIRUBIN,TOTAL 0.6 mg/dL (0.2-1.3); BLOOD UREA NITROGEN 14 mg/dL (7-21); CALCIUM 8.7 mg/dL (8.4-10.5); CARBON DIOXIDE 31 mmol/L (21-33); CHLORIDE 103 mmol/L (95-110); GFR AFRICAN-AMERICAN > 60; GLUCOSE,RANDOM 93 mg/dL (70-110); POTASSIUM 3.6 mmol/L (3.6-5.0); SODIUM 142 mmol/L (132-148); TOTAL PROTEIN 5.9 g/dL (5.8-8.3)
[2016-07-04 07:24] LABS: INR 2.03 (0.93-1.08)
[2016-07-04 07:41] LABS: PARTIAL THROMBOPLASTIN TIME 147.3 Seconds (23.7-30.8)
[2016-07-04] MEDS: Insulin Reg-HIGH-Coverage SC SCH ×4 (08:11→21:51)
[2016-07-04] MEDS: Pantoprazole 40 mg EC Tab PO SCH (08:15)
--- NOTE | 2016-07-04 09:51 | PN ---
DATE: 07/04/2016 REASON FOR CONSULTATION AND FOLLOWUP: Atrial fibrillation, acute limb ischemia, hypertension, COPD, obstructive sleep apnea, obesity. BRIEF CLINICAL HISTORY: This is a 55-year-old male, very poor compliance with the medications (nonco mpliant with medication and followup visits), history of chronic atrial fibrillation, morbid obesity, status post failed CORA cardioversion, history of catheterization x 2 showed nonischemic cardiomyopat hy, atrial fibrillation. The patient was offered a radiofrequency ablation, did not show up, now wit h an appointment in 07/2016. Admitted with shortness of breath, developed throbbing pain in the lab, found to be acute embolus in the left lower extremity, status post thrombectomy. Now patient is lyi ng flat. Denies any chest pain, shortness of breath. The patient is in a L[place]ha and 2-point soft res traints. Denies any chest pain, shortness of breath, any palpitation. PHYSICAL EXAMINATION: VITAL SIGNS: Temperature afebrile, heart rate 92, blood pressure 117/68. HEENT: PERRLA. Extraocular muscles intact. NECK: Supple. No carotid bruits. No thyromegaly. CHEST: Clear to auscultation. HEART: S1, S2 irregular. ABDOMEN: Soft. EXTREMITIES: Clubbing and cyanosis negative. BLOOD WORKUP: WBC 9.9, hemoglobin 13, hematocrit 39.4, platelet count 187. Chemistry shows sodium 1 42, potassium 3.7, chloride 103, carbon dioxide 30, anion gap of 12, BUN 14, creatinine 0.7. IMPRESSION: Atrial fibrillation with rapid ventricular rate, now the rate is well controlled; altere d mental status, status post acute limb ischemia, status post left popliteal thrombolysis, status pos t left anterior tibial and tibioperoneal trunk percutaneous thrombolysis was done; morbid obesity, fr equent atrial fibrillation with rapid ventricular rate, failed transesophageal echocardiogram cardiov ersion, now persistent atrial fibrillation, referred for radiofrequency ablation, noncompliance, stat us post cardiac catheterization twice, nonobstructive coronary artery disease, essentially normal, no nischemic cardiomyopathy possibly secondary to alcohol-related, history of tobacco abuse, history of alcohol abuse, obesity, sleep apnea, chronic obstructive pulmonary disease. RECOMMENDATION: Resume back Coumadin. Goal is to keep INR between 2 to 2.5; now the INR today is at 2.03. Continue Coumadin and monitor INR. Continue Cardizem 60 mg q.i.d. Continue digoxin. Contin ue metoprolol. Will change Cardizem to CD 240 mg daily. Will follow with you. Thank you, Dr. Velazquez/Dr. Villagomez, for providing this opportunity in taking care of this patient. Tia Rajan MD cc: [phone] TT: 07/04/2016 09:50:47 Confirmation # [id number] Dictation # [id number]
[2016-07-04] MEDS: Insulin Detemir 100 units/ml Vial (Levemir) SC SCH ×2 (11:27→17:00)
[2016-07-04] MEDS: Potassium Chloride 20 mEq ER Tab PO SCH (11:28)
[2016-07-04] MEDS: diltiaZEM 240 mg/24 Hours CD Cap PO SCH (11:29)
[2016-07-04] MEDS: Magnesium Oxide 400 mg Tab UD PO SCH ×3 (11:29→18:33)
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
--- NOTE | 2016-07-04 12:35 | PN ---
DATE: 07/04/2016 SUBJECTIVE: The patient is a 55-year-old, seen and examined sitting in chair. Seems to be more comf ortable, calm, not in any acute distress. PHYSICAL EXAMINATION: VITAL SIGNS: He is afebrile, pulse 92, respirations 20, blood pressure 145/88. LUNGS: Bilateral fair airflow. No rhonchi or crackle. HEART: S1, S2 audible. ABDOMEN: Soft, obese, nontender, no rebound, no guarding. NEUROLOGIC: The patient is awake and alert, able to communicate. LABORATORY: His PT is 21.9, INR 2.03. Chemistry: Sodium 142, potassium 3.6, chloride 103, CO2 of 3 1, BUN 14, creatinine 0.7, blood sugar 177. ASSESSMENT AND PLAN: 1. Status post acute right limb ischemia status post thrombectomy. 2. Chronic atrial fibrillation; now it is well controlled. 3. Status post altered mental status. 4. Bipolar disorder. 5. Status post left popliteal thrombolysis. 6. Status post left anterior tibial and tibioperoneal thrombolysis. 7. Morbid obesity. 8. Nonobstructive coronary artery disease. 9. Nonischemic cardiomyopathy. 10. Chronic obstructive pulmonary disease. 11. Obstructive sleep apnea. PLAN: The patient's INR is therapeutic; heparin has been discontinued. The patient's cardiac status seems to be stable; discontinue telemetry. We can monitor his PT/INR in the a.m. Encourage ambulat ion. Psychiatric medication as per psychiatrist. So will discontinue telemetry if it is okay with Albert Rajan and follow up PT/INR in the a.m. Ridge Velazquez MD cc: [phone] TT: 07/04/2016 12:35:10 Confirmation # [id number] Dictation # [id number] yael
[2016-07-04] MEDS: Digoxin 250 mcg (0.25 mg) Tab PO SCH (14:18)
--- NOTE | 2016-07-04 21:13 | PN ---
DATE: 07/04/2016 REFERRING PHYSICIAN: Dr. Axel Villagomez. SUBJECTIVELY: He is lying in the bed. Upper extremity still in restraint. Refusing to use CPAP/BiP AP. Overall feels better; more awake and alert. No cough, no sputum production. No hematuria, no d iarrhea. Decreased leg swelling. OBJECTIVELY: No acute distress. Temp is 98, heart rate is 89, respiratory rate is 20, blood pressure 121/91, pulse ox 95% on nasal ca nnula. HENT: Moist mucous membranes. Crowded airway. Mallampati score is 4. NECK: Supple, no JVD. Has a short thick neck. LUNGS: Has a fair airflow with few rhonchi. HEART: S1, S2 irregular. ABDOMEN: Obese, soft, nontender. EXTREMITIES: Does have edema, but decreased. NEUROLOGICALLY: Awake, alert. Follows simple command. MEDICATIONS: He is on Amaryl 4 mg with breakfast, Ativan 2 mg a.m. and at bedtime, Ativan also 2 mg q. 4 hours around the clock, calcium carbonate 600 mg daily, Cardizem CD 240 mg daily, Coumadin 10 mg at bedtime, trazodone 200 mg at bedtime, DuoNeb q. 2 hours p.r.n., Haldol 5 mg IV q. 4 hours p.r.n., with also Haldol around the clock 2 mg a.m. and at bedtime, insulin coverage, potassium 20 mEq daily , digoxin 0.25 mg daily, Lasix 40 mg q. 8 hours, Levemir 40 units subQ twice a day, Lipitor 40 mg suresh ly, metoprolol tartrate 25 mg twice a day, mag oxide 400 mg 3 times a day, Protonix 40 mg daily, Sing ulair 10 mg daily, Zestril 20 mg daily. LABORATORY DATA: Shows INR 2.03. Sodium 142, potassium 3.6, chloride 103, bicarbonate 31, BUN 14, c reatinine 0.7, glucose 93, calcium 8.7. AST 21, ALT 35, alk phos is 69, albumin 3.3. IMPRESSION AND PLAN: Status post limb ischemia, ended up with mechanical thrombectomy, obstructive s leep apnea syndrome, obstructive lung disease, cardiomyopathy, pulmonary hypertension, hypertension, diabetes, history of alcohol abuse, obesity, noncompliance, has acute encephalopathy. Pulmonary point of view, doing well. Continue anticoagulation. Keep head 45 degree. Encourage BiPA P use. Careful with sedation. 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 Fall precautions. Follow up labs in the morning. Thank you, and will follow with you. Tia Godinez MD cc: [phone] TT: 07/04/2016 21:12:48 Confirmation # [id number] Dictation # [id number] jn
--- NOTE | 2016-07-05 01:45 | CP.PCM.PN ---
Subjective - Date & Time of Evaluation Date of Evaluation: 07/05/16 Time of Evaluation: 01:45 - Subjective Subjective: # 22 angiocath was inserted in right forearm. Dx:Poor venous access. Objective - Vital Signs/Intake and Output Vital Signs (last 24 hours): Temp Pulse Resp BP Pulse Ox 98.3 F 89 20 121/91 H 95 07/04/16 17:37 07/04/16 18:00 07/04/16 17:37 07/04/16 17:37 07/04/16 05:23 Intake and Output: 07/04/16 07/05/16 18:59 06:59 Intake Total 660 950 Output Total 1050 Balance -390 950 - Medications Medications: Current Medications Albuterol/Ipratropium (Duoneb 3 Mg/0.5 Mg (3 Ml) Ud) 3 ml IH Q2H PRN PRN Reason: Shortness of Breath Last Admin: 07/03/16 05:00 Dose: 3 ml Atorvastatin Calcium (Lipitor) 40 mg PO DIN [facility] Last Admin: 07/04/16 16:54 Dose: 40 mg Calcium Carbonate (Caltrate) 600 mg PO DAILY [facility] Last Admin: 07/04/16 11:29 Dose: 600 mg Digoxin (Lanoxin) 0.25 mg PO 1400 [facility] Last Admin: 07/04/16 14:18 Dose: 0.25 mg Diltiazem HCl (Cardizem Cd) 240 mg PO DAILY [facility] Last Admin: 07/04/16 11:29 Dose: 240 mg Furosemide (Lasix) 40 mg PO Q8 [facility] Last Admin: 07/04/16 21:52 Dose: Not Given Glimepiride (Amaryl) 4 mg PO BRK [facility] Last Admin: 07/04/16 08:15 Dose: 4 mg Haloperidol (Haldol) 2 mg PO AMHS [facility] PRN Reason: Protocol Last Admin: 07/04/16 23:18 Dose: 2 mg Haloperidol Lactate (Haldol) 5 mg IVP Q4 PRN; Protocol PRN Reason: Anxiety Insulin Detemir (Levemir) 40 unit SC BID [facility] Last Admin: 07/04/16 17:00 Dose: 40 unit Insulin Human Regular (Humulin R High) 0 units SC ACHS [facility] PRN Reason: Protocol Last Admin: 07/04/16 21:51 Dose: Not Given Lisinopril (Zestril) 20 mg PO DAILY [facility] Last Admin: 07/04/16 11:28 Dose: 20 mg Lorazepam (Ativan) 2 mg PO AMHS [facility] PRN Reason: Protocol Last Admin: 07/04/16 22:48 Dose: 2 mg Lorazepam (Ativan) 2 mg IVP Q4 [facility] PRN Reason: Protocol Last Admin: 07/05/16 00:58 Dose: 2 mg Magnesium Oxide (Mag-Ox) 400 mg PO TID [facility] Last Admin: 07/04/16 18:33 Dose: 400 mg Metoprolol Tartrate (Lopressor) 25 mg PO BID [facility] Last Admin: 07/04/16 17:01 Dose: 25 mg Montelukast Sodium (Singulair) 10 mg PO DAILY [facility] Last Admin: 07/04/16 11:29 Dose: 10 mg Pantoprazole Sodium (Protonix Ec Tab) 40 mg PO ACB [facility] Last Admin: 07/04/16 08:15 Dose: 40 mg Potassium Chloride (K-Dur 20 Meq Er Tab) 20 meq PO DAILY [facility] Last Admin: 07/04/16 11:28 Dose: 20 meq Trazodone HCl (Desyrel) 200 mg PO HS [facility] Last Admin: 07/04/16 22:48 Dose: 200 mg Warfarin Sodium (Coumadin) 10 mg PO HS [facility] PRN Reason: Protocol Last Admin: 07/04/16 22:48 Dose: 10 mg - Labs Labs: 07/03/16 06:30 07/04/16 06:15 PT 21.9 Seconds (9.9-11.8) H 07/04/16 06:15 INR 2.03 (0.93-1.08) H 07/04/16 06:15 APTT 147.3 Seconds (23.7-30.8) H* 07/04/16 06:15
--- NOTE | 2016-07-05 06:59 | CP.PCM.PN ---
Subjective - Date & Time of Evaluation Date of Evaluation: 07/05/16 Time of Evaluation: 06:58 - Subjective Subjective: Patient was seen at bed side for agitation. Responded to Code Goodwin. Patient is standing up by bedside , not following instructions to lay down in bed. Pertinent medical record was reviewed. his 55 years old white male was admitted with left leg pain,Acute left leg ischemia. PMH : COPD,CHF,atrial fibrillation, DM, non compliance, HTN, dyslipidemia, morbid obesity. Objective - Vital Signs/Intake and Output Vital Signs (last 24 hours): Temp Pulse Resp BP Pulse Ox 97.8 F 80 22 132/81 94 L 07/05/16 00:01 07/05/16 05:25 07/05/16 05:11 07/05/16 00:01 07/05/16 00:01 Intake and Output: 07/04/16 07/05/16 18:59 06:59 Intake Total 660 1237 Output Total 1050 0 Balance -390 1237 - Medications Medications: Current Medications Albuterol/Ipratropium (Duoneb 3 Mg/0.5 Mg (3 Ml) Ud) 3 ml IH Q2H PRN PRN Reason: Shortness of Breath Last Admin: 07/03/16 05:00 Dose: 3 ml Atorvastatin Calcium (Lipitor) 40 mg PO DIN [facility] Last Admin: 07/04/16 16:54 Dose: 40 mg Calcium Carbonate (Caltrate) 600 mg PO DAILY [facility] Last Admin: 07/04/16 11:29 Dose: 600 mg Digoxin (Lanoxin) 0.25 mg PO 1400 [facility] Last Admin: 07/04/16 14:18 Dose: 0.25 mg Diltiazem HCl (Cardizem Cd) 240 mg PO DAILY [facility] Last Admin: 07/04/16 11:29 Dose: 240 mg Furosemide (Lasix) 40 mg PO Q8 [facility] Last Admin: 07/05/16 05:11 Dose: Not Given Glimepiride (Amaryl) 4 mg PO BRK [facility] Last Admin: 07/04/16 08:15 Dose: 4 mg Haloperidol (Haldol) 2 mg PO AMHS [facility] PRN Reason: Protocol Last Admin: 07/04/16 23:18 Dose: 2 mg Haloperidol Lactate (Haldol) 5 mg IVP Q4 PRN; Protocol PRN Reason: Anxiety Insulin Detemir (Levemir) 40 unit SC BID [facility] Last Admin: 07/04/16 17:00 Dose: 40 unit Insulin Human Regular (Humulin R High) 0 units SC ACHS [facility] PRN Reason: Protocol Last Admin: 07/04/16 21:51 Dose: Not Given Lisinopril (Zestril) 20 mg PO DAILY [facility] Last Admin: 07/04/16 11:28 Dose: 20 mg Lorazepam (Ativan) 2 mg PO AMHS [facility] PRN Reason: Protocol Last Admin: 07/04/16 22:48 Dose: 2 mg Lorazepam (Ativan) 2 mg IVP Q4 [facility] PRN Reason: Protocol Last Admin: 07/05/16 03:27 Dose: Not Given Magnesium Oxide (Mag-Ox) 400 mg PO TID [facility] Last Admin: 07/04/16 18:33 Dose: 400 mg Metoprolol Tartrate (Lopressor) 25 mg PO BID [facility] Last Admin: 07/04/16 17:01 Dose: 25 mg Montelukast Sodium (Singulair) 10 mg PO DAILY [facility] Last Admin: 07/04/16 11:29 Dose: 10 mg Pantoprazole Sodium (Protonix Ec Tab) 40 mg PO ACB [facility] Last Admin: 07/04/16 08:15 Dose: 40 mg Potassium Chloride (K-Dur 20 Meq Er Tab) 20 meq PO DAILY [facility] Last Admin: 07/04/16 11:28 Dose: 20 meq Trazodone HCl (Desyrel) 200 mg PO HS [facility] Last Admin: 07/04/16 22:48 Dose: 200 mg Warfarin Sodium (Coumadin) 10 mg PO HS [facility] PRN Reason: Protocol Last Admin: 07/04/16 22:48 Dose: 10 mg - Labs Labs: 07/03/16 06:30 07/04/16 06:15 PT 21.9 Seconds (9.9-11.8) H 07/04/16 06:15 INR 2.03 (0.93-1.08) H 07/04/16 06:15 APTT 147.3 Seconds (23.7-30.8) H* 07/04/16 06:15 - Constitutional Appears: No Acute Distress, Agitated - Head Exam Head Exam: ATRAUMATIC, NORMAL INSPECTION, NORMOCEPHALIC - Eye Exam Eye Exam: Normal appearance - ENT Exam ENT Exam: Normal External Ear Exam - Neck Exam Neck Exam: Normal Inspection - Respiratory Exam Respiratory Exam: NORMAL BREATHING PATTERN - Cardiovascular Exam Cardiovascular Exam: absent: JVD - GI/Abdominal Exam GI & Abdominal Exam: absent: Distended - Rectal Exam Rectal Exam: Deferred - Extremities Exam Extremities Exam: Normal Inspection - Back Exam Back Exam: NORMAL INSPECTION - Neurological Exam Neurological Exam: Altered - Psychiatric Exam Psychiatric exam: Agitated - Skin Skin Exam: Normal Color Assessment and Plan - Assessment and Plan (Free Text) Assessment: A/P:Agitation. COPD. CHF. Atrial Fibrillation. Obesity. Ativan 4 mg IV given. Later on wrist restraints were applied. Continue present management.
[2016-07-05 07:24] LABS: ADD MANUAL DIFF? NO
[2016-07-05 07:26] LABS: BASO # 0.04 K/mm3 (0.0-2.0); BASO % 0.4 % (0.0-3.0); EOS # 0.1 (0.0-0.7); EOS % 1.3 % (1.5-5.0); GRAN # 7.64 (1.4-6.5); GRAN % 76.4 % (50.0-68.0); HEMATOCRIT 38.8 % (42.0-52.0); LYMPH # 1.3 (1.2-3.4); LYMPH % 12.8 % (22.0-35.0); MEAN CELL VOLUME 86.4 fL (80.0-105.0); MEAN CORPUSCULAR HEMOGLOBIN 28.3 pg (25.0-35.0); MEAN CORPUSCULAR HGB CONC 32.7 g/dl (31.0-37.0); MONO # 0.9 (0.1-0.6); MONO % 9.1 % (1.0-6.0); PLATELET COUNT 193 10^3/uL (120.0-450.0); RED CELL DISTRIBUTION WIDTH 15.9 % (11.5-14.5)
[2016-07-05 07:36] LABS: INR 2.65 (0.93-1.08)
[2016-07-05 07:49] LABS: ALB/GLOB RATIO 1.2 (1.1-1.8); ALKALINE PHOSPHATASE 66 U/L (38-133); ALT/SGPT 38 U/L (7-56); AST/SGOT 23 U/L (15-59); BILIRUBIN,TOTAL 0.7 mg/dL (0.2-1.3); BLOOD UREA NITROGEN 15 mg/dL (7-21); CARBON DIOXIDE 32 mmol/L (21-33); CHLORIDE 98 mmol/L (98-107); GFR AFRICAN-AMERICAN > 60; GLUCOSE,RANDOM 124 mg/dL (70-110); MAGNESIUM 1.7 mg/dL (1.7-2.2); PHOSPHOROUS 3.8 mg/dL (2.5-4.5); POTASSIUM 3.5 mmol/L (3.6-5.0); SODIUM 140 mmol/L (132-148); TOTAL PROTEIN 6.7 g/dL (5.8-8.3)
[2016-07-05] MEDS: Insulin Reg-HIGH-Coverage SC SCH ×3 (08:20→17:29)
[2016-07-05] MEDS: Pantoprazole 40 mg EC Tab PO SCH (08:20)
[2016-07-05] MEDS ORDERED: Potassium Chloride 20 mEq ER Tab PO STA (09:30)
--- NOTE | 2016-07-05 09:51 | PN ---
DATE: 07/05/2016 REASON FOR CONSULTATION AND FOLLOWUP: Atrial fibrillation, acute left limb ischemia, hypertension, C OPD, obstructive sleep apnea, obesity, status post thrombectomy. BRIEF CLINICAL HISTORY: This is a 55-year-old male, very noncompliant with office visit and medicat ion, history of chronic atrial fibrillation, morbid obesity, status post failed CORA cardioversion, hi story of catheterization x 2, nonischemic cardiomyopathy referred for radiofrequency ablation for A-f ib, did not show up multiple times, referred to Dr. Bonilla at [facility]. Lately, the patient had an appointment for 07/17/2016 for radiofrequency ablation who came in here with A-fib with rapid r ate as well as acute limb ischemia, status post thrombectomy. Now, the patient is confused, 2-point restraint. Denies any chest pain, shortness of breath, palpitation. PHYSICAL EXAMINATION: VITAL SIGNS: Temperature afebrile, heart rate 60, blood pressure 132/81. HEENT: PERRLA. Extraocular muscles intact. NECK: Supple. No carotid bruits. No thyromegaly. CHEST: Clear to auscultation. HEART: S1, S2 regular. ABDOMEN: Soft. EXTREMITIES: Clubbing, cyanosis negative. LABORATORY DATA: Blood workup as follows: WBC 10, hemoglobin 12.3, hematocrit 38.8, platelet count 193. Chemistry shows sodium 140, potassium 3.5, chloride 98, carbon dioxide 32, anion gap of 14, BUN 15, creatinine 0.9, random sugar 124. IMPRESSION: Atrial fibrillation, chronic, rate well controlled; altered mental status, status post a cute limb ischemia, status post popliteal thrombolysis. Status post left anterior tibial and tibial peritoneal trunk percutaneous thrombolysis was done, morbid obesity, frequent admissions with atrial fibrillation with rapid ventricular rate, status post failed transesophageal echocardiogram cardiover wilfred. 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 RECOMMENDATION: Coumadin was resumed back, continue anticoagulation. Goal is to keep INR between 2- 2.5. Today, INR is 2.65. Continue supplement electrolytes as needed, too the hypokalemia we will hermosillo pplement. Discontinue telemetry, discharge planning. Continue Cardizem-CD 240 mg daily, continue di goxin, continue beta rahat. We will follow with you. Thank you, Dr. Villagomez/Dr. Velazquez, for providing the opportunity in taking care of the patient. Tia Rajan MD cc: [phone] TT: 07/05/2016 09:50:31 Confirmation # [id number] Dictation # [id number] tn
[2016-07-05] MEDS: Magnesium Oxide 400 mg Tab UD PO SCH ×3 (10:16→17:31)
[2016-07-05] MEDS: Potassium Chloride 20 mEq ER Tab PO SCH (10:16)
[2016-07-05] MEDS: diltiaZEM 240 mg/24 Hours CD Cap PO SCH (10:18)
[2016-07-05] MEDS: Insulin Detemir 100 units/ml Vial (Levemir) SC SCH ×2 (10:19→17:29)
[2016-07-05] MEDS: Digoxin 250 mcg (0.25 mg) Tab PO SCH (13:29)
--- NOTE | 2016-07-05 13:57 | PN ---
DATE: 07/05/2016 SUBJECTIVE: The patient is a 55-year-old, seen and examined, seems to be confused and disoriented, h as wrist restraints on for his safety. PHYSICAL EXAMINATION: VITAL SIGNS: He is afebrile, pulse 77, respirations 22, blood pressure 145/82, pulse ox is 95%. LUNGS: Bilateral fair airflow, no rhonchi or crackle. HEART: S1, S2 audible. ABDOMEN: Soft, obese, nontender, no rebound, no guarding. NEUROLOGIC: He is awake and alert, but confused and disoriented. LABORATORY EXAMINATION: WBC is 10, hemoglobin 12.7, hematocrit 38, platelets 193. PT is 28.6, INR 2 .65. Chemistry: Sodium 140, potassium 3.5, chloride 98, CO2 32, BUN 15, creatinine 0.9, blood sugar of 124. ASSESSMENT: 1. Status post right lung ischemia, status post thrombectomy. 2. Morbid obesity. 3. Hypertension. 4. Chronic obstructive pulmonary disease. 5. Bipolar disorder. 6. Obstructive sleep apnea. 7. Nonischemic cardiomyopathy. PLAN: I will continue on same dose of Coumadin. He is off of heparin. He will get 5 mg of Coumadin today. Psych to evaluate the patient. His functional status is still not back to baseline. He filomena ht benefit to go to psych to adjust his psych medication. Dr. Villagomez will reevaluate the patient i n a.m. I will follow up PT/INR in a.m. Ridge Velazquez MD cc: [phone] TT: 07/05/2016 13:57:08 Confirmation # [id number] Dictation # [id number] tn
--- NOTE | 2016-07-05 15:21 | PN ---
DATE: 07/05/2016 REFERRING PHYSICIAN: Dr. Axel Villagomez. SUBJECTIVE: He is lying in the bed, head at 45 degrees. Friends are at bedside. Still has upper ex tremities in restraints. Night was unremarkable. Did not use BiPAP. No cough, no sputum production . No nausea, no vomiting, no diarrhea. Decreased leg swelling. OBJECTIVE: GENERAL: No acute distress. VITAL SIGNS: Temperature is 98, heart rate is 77, respiratory rate is 20, blood pressure 154/84, pul se ox 94% on nasal cannula. HEENT: Moist mucous membrane. Crowded airway. Mallampati score is 4. NECK: Short, thick neck. LUNGS: Have fair airflow with a few rhonchi. HEART: S1 and S2. ABDOMEN: Soft, nontender. No organomegaly. EXTREMITIES: Decreased edema. NEUROLOGIC: Awake, alert, follows simple commands. MEDICATIONS: He is on Amaryl 4 mg in the morning, Ativan 2 mg a.m. and at bedtime, also Ativan 2 mg q. 4 hours, calcium carbonate 600 mg daily, Cardizem CD 240 mg daily, Coumadin 5 mg given, trazodone 200 mg at bedtime, DuoNeb q. 2 hours p.r.n., Haldol 5 mg IV q. 4 hours p.r.n. for anxiety and Haldol 2 mg a.m. and at bedtime, potassium 20 mEq daily, digoxin 0.25 mg daily, Lasix 40 mg q. 8 hours, Leve jordyn 40 units subQ b.i.d., Lipitor 40 mg daily, metoprolol tartrate 25 mg twice a day, mag oxide 400 m g 3 times a day, Protonix 40 mg daily, Singulair 10 mg daily, Zestril 20 mEq daily. LABORATORY DATA: Shows hemoglobin 12.7, hematocrit 38.8, WBC 10, platelet is 193. INR is 2.65. Sod ium 140, potassium 3.5, chloride 98, bicarbonate 32, BUN 15, creatinine 0.9, glucose 124, calcium 9.0 , phosphorus 3.8. AST 23, ALT 38, alkaline phosphatase is 66, albumin is 3.7. IMPRESSION AND PLAN: Thromboembolic disease status post thrombectomy of the left lower extremity, at rial fibrillation, noncompliant with the medication, obstructive lung disease, obstructive sleep apne a syndrome, cardiomyopathy, hypertension, diabetes, obesity, sleep apnea syndrome. From pulmonary po int of view, encourage BiPAP use. Keep head at 45 degrees. Fall precaution. Bronchodilator, antico agulation. Follow up INR in the morning. Psychiatry followup. Spoke to family at bedside. All the ir questions answered. Thank you, and will follow with you. Tia Godinez MD cc: [phone] TT: 07/05/2016 15:20:52 Confirmation # [id number] Dictation # [id number] mn
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
[2016-07-06] MEDS: Insulin Reg-HIGH-Coverage SC SCH ×5 (04:21→22:04)
[2016-07-06 07:42] LABS: INR 2.51 (0.93-1.08)
--- NOTE | 2016-07-06 08:06 | PN ---
DATE: 07/06/2016 SUBJECTIVE: The patient is confused and I can not communicate with him. PHYSICAL EXAMINATION: VITAL SIGNS: Temperature is 97.5, pulse of 101, blood pressure 145/89, respirations 22. GENERAL: The patient comfortable, in no acute distress. HEENT: Anicteric sclerae. Moist mucosa. NECK: No JVD or adenopathy. CARDIAC: S1/S2. No murmurs. No rubs. Regular. RESPIRATORY: Clear to auscultation bilaterally. No wheezes, rales, or rhonchi. Good air entry. ABDOMEN: Bowel sounds are positive, soft, nontender, and nondistended. EXTREMITIES: No edema. Has 1+ pulses. LABS: White count of 10.0, hemoglobin 12.7, creatinine is 0.9. ASSESSMENT: 1. Right leg ischemia, status post thrombectomy. 2. Obese with a body mass index of 43. 3. Hypertension. 4. Chronic obstructive pulmonary disease. 5. Bipolar disorder. 6. Obstructive sleep apnea. 7. Atrial fibrillation, on Coumadin. 8. Nonadherence. 9. Diabetic neuropathy. 10. Diabetes, type 2. 11. Hypertension. 12. Dyslipidemia. 13. Congestive heart failure secondary to diastolic dysfunction. 14. Delerium PLAN: The patient is currently on calcium. He is going to continue with Ativan. He is on Coumadin; it is therapeutic with an INR of 2.6. He is going to be on potassium replacement. He is on Lasix. The patient is on Lipitor for dyslipidemia. He is on lisinopril for hypertension. Axel Villagomez MD cc: [id number] TT: 07/06/2016 08:05:21 Confirmation # [id number] Dictation # [id number] yael TABOR
[2016-07-06] MEDS: Insulin Detemir 100 units/ml Vial (Levemir) SC SCH ×2 (10:38→17:56)
[2016-07-06] MEDS: Potassium Chloride 20 mEq ER Tab PO SCH (10:47)
[2016-07-06] MEDS: diltiaZEM 240 mg/24 Hours CD Cap PO SCH (10:48)
[2016-07-06] MEDS: Magnesium Oxide 400 mg Tab UD PO SCH ×3 (10:48→17:57)
[2016-07-06] MEDS: Pantoprazole 40 mg EC Tab PO SCH (10:48)
--- NOTE | 2016-07-06 12:01 | CP.PCM.PCO ---
Addendum Addendum: 07/06/16 11:58 Could not interview patient due to sedation this AM. He continues to be delirious and difficult to manage on the unit. I have clarified that Haldol 5 mg IV should be given with Ativan 2 mg IV q6 prn for agitation. Patient should continue to receive standing orders of haldol & ativan [facility]HS. Psychiatry will continue to monitor patient daily however please note, there aren't any psychiatric medications that can clear delirium faster, these medications are prescribed for the behavioral complications of delirium. Delirium may take weeks to clear.
[2016-07-06] MEDS: Digoxin 250 mcg (0.25 mg) Tab PO SCH (14:02)
--- NOTE | 2016-07-06 14:10 | PN ---
DATE: 07/06/2016 The patient in room 574, bed 1. REASON FOR CONSULTATION AND FOLLOWUP: Atrial fibrillation, acute limb ischemia, hypertension, COPD, obstructive sleep apnea, status post thrombectomy. HISTORY OF PRESENT ILLNESS: A 55-year-old male very noncompliant with followup as outpatient, as wel l as medication; history of chronic atrial fibrillation, morbid obesity, status post failed CORA cardi oversion, history of catheterization x 2, nonischemic cardiomyopathy. Multiple times arrangement [facility] for atrial fib ablation and multiple appointments were made but patient never showed up for appoint ment. He was supposed to see Dr. Bonilla, wax molder. Now, he has new appointment on 07/18/19 17. Was admitted now with atrial fib with rapid rate as well as acute limb ischemia status post thro mbectomy. Now, patient still gets very confused and agitated. Has restraints on both arms. Lying f lat in bed without chest pain, shortness of breath, palpitation. PHYSICAL EXAMINATION: VITAL SIGNS: Blood pressure 133/79, respirations 22, pulse 86, temperature 98.8. HEAD: Normocephalic. EYES: Pupils normal. Conjunctivae normal. NECK: JVP low. Carotid equal. THORAX: AP diameter normal. LUNGS: No rales. CARDIOVASCULAR: S1, S2. Irregular rhythm due to atrial fibrillation. No rub. ABDOMEN: Soft, no tenderness, no organomegaly. EXTREMITIES: No clubbing, no cyanosis. LABORATORY DATA: Shows WBC 10.0, hemoglobin 12.7, hematocrit 38.8, and platelets 193. DIAGNOSES: Atrial fibrillation, chronic, rate controlled; altered mental status, status post acute l imb ischemia, status post popliteal thrombolysis, status post left anterior tibial and tibioperoneal trunk percutaneous thrombolysis, morbid obesity, atrial fibrillation with rapid ventricular rate, sta tus post cardiac catheterization twice, nonobstructive coronary artery disease, nonischemic cardiomyo [place], possibly related to alcohol, history of tobacco abuse and alcohol abuse, alcohol-related cardi omyopathy, history of tobacco abuse, history of alcohol abuse, history of sleep apnea, history of mor bid obesity, chronic obstructive pulmonary disease. PLAN: Continue diltiazem CD 240 p.o. daily, warfarin 5 mg daily, DuoNeb hand nebulizer therapy, Hald ol as ordered, potassium 20 ____ daily, digoxin 0.25 daily, Lasix 40 daily, insulin as ordered, Lipit or 40 mg daily, metoprolol 25 b.i.d., lisinopril 20 mg p.o. daily, glimepiride, Amaryl 4 mg p.o. twic e a day. We will follow with you. Tia Cabello MD cc: [id number] TT: 07/06/2016 14:09:46 Confirmation # [id number] Dictation # [id number]
--- NOTE | 2016-07-06 18:05 | CP.PCM.PN ---
Subjective - Date & Time of Evaluation Date of Evaluation: 07/06/16 Time of Evaluation: 17:00 - Subjective Subjective: Pt seen stat at the request of his RN for his c/o heart beating fast.He told his RN his AFib might be kicking in. Denies C/o chest pain,SOB,calf pain,abdominal pain or any other symptoms. Pt was admitted for rapid Afib and CHF. Subsequently,he underwent thrombectomy for L leg ischemia. Actually,pt is upset and wants to go home. VS: BP150/93 RR22 HR 84 irregular O2 sat on 2L O2 /min by NC 94% Accucheck 183 PMH:COPD,Obstructive sleep apnea,Bipolar disorder,IDDM,Morbid Obesity AFib, Dyslipidemia,CHF,Neuropathy. Objective - Vital Signs/Intake and Output Vital Signs (last 24 hours): Temp Pulse Resp BP Pulse Ox 98.8 F 86 22 133/79 95 07/06/16 08:34 07/06/16 10:48 07/06/16 08:34 07/06/16 14:02 07/06/16 08:34 Intake and Output: 07/06/16 07/06/16 06:59 18:59 Intake Total 167 600 Output Total 400 600 Balance -233 0 - Medications Medications: Current Medications Albuterol/Ipratropium (Duoneb 3 Mg/0.5 Mg (3 Ml) Ud) 3 ml IH Q2H PRN PRN Reason: Shortness of Breath Last Admin: 07/03/16 05:00 Dose: 3 ml Atorvastatin Calcium (Lipitor) 40 mg PO DIN [facility] Last Admin: 07/05/16 17:29 Dose: 40 mg Calcium Carbonate (Caltrate) 600 mg PO DAILY [facility] Last Admin: 07/06/16 10:48 Dose: 600 mg Digoxin (Lanoxin) 0.25 mg PO 1400 [facility] Last Admin: 07/06/16 14:02 Dose: 0.25 mg Diltiazem HCl (Cardizem Cd) 240 mg PO DAILY [facility] Last Admin: 07/06/16 10:48 Dose: 240 mg Furosemide (Lasix) 40 mg PO Q8 [facility] Last Admin: 07/06/16 14:02 Dose: 40 mg Glimepiride (Amaryl) 4 mg PO BRK [facility] Last Admin: 07/06/16 07:59 Dose: Not Given Haloperidol (Haldol) 2 mg PO AMHS [facility] PRN Reason: Protocol Last Admin: 07/06/16 10:49 Dose: 2 mg Haloperidol Lactate (Haldol) 5 mg IVP Q6 PRN; Protocol PRN Reason: Agitation Insulin Detemir (Levemir) 40 unit SC BID [facility] Last Admin: 07/06/16 10:38 Dose: Not Given Insulin Human Regular (Humulin R High) 0 units SC ACHS [facility] PRN Reason: Protocol Last Admin: 07/06/16 11:55 Dose: Not Given Lisinopril (Zestril) 20 mg PO DAILY [facility] Last Admin: 07/06/16 10:47 Dose: 20 mg Lorazepam (Ativan) 2 mg PO AMHS [facility] PRN Reason: Protocol Last Admin: 07/06/16 13:55 Dose: Not Given Lorazepam (Ativan) 2 mg IVP Q6 PRN; Protocol PRN Reason: Agitation Magnesium Oxide (Mag-Ox) 400 mg PO TID [facility] Last Admin: 07/06/16 16:43 Dose: Not Given Metoprolol Tartrate (Lopressor) 25 mg PO BID [facility] Last Admin: 07/06/16 10:47 Dose: 25 mg Montelukast Sodium (Singulair) 10 mg PO DAILY [facility] Last Admin: 07/06/16 10:48 Dose: 10 mg Pantoprazole Sodium (Protonix Ec Tab) 40 mg PO ACB [facility] Last Admin: 07/06/16 10:48 Dose: 40 mg Potassium Chloride (K-Dur 20 Meq Er Tab) 20 meq PO DAILY [facility] Last Admin: 07/06/16 10:47 Dose: 20 meq Trazodone HCl (Desyrel) 200 mg PO HS [facility] Last Admin: 07/05/16 21:38 Dose: 200 mg Warfarin Sodium (Coumadin) 5 mg PO 1800 [facility] PRN Reason: Protocol Last Admin: 07/05/16 17:28 Dose: 5 mg - Labs Labs: 07/05/16 06:30 07/05/16 06:30 PT 27.1 Seconds (9.9-11.8) H 07/06/16 07:00 INR 2.51 (0.93-1.08) H 07/06/16 07:00 APTT 147.3 Seconds (23.7-30.8) H* 07/04/16 06:15 - Constitutional Appears: No Acute Distress, Other (mobidly obese) - Head Exam Head Exam: ATRAUMATIC, NORMAL INSPECTION, NORMOCEPHALIC - Eye Exam Eye Exam: PERRL - ENT Exam ENT Exam: Mucous Membranes Moist - Neck Exam Neck Exam: Normal Inspection - Respiratory Exam Respiratory Exam: NORMAL BREATHING PATTERN. absent: Respiratory Distress Additional comments: Occasional crackles at the bases - Cardiovascular Exam Cardiovascular Exam: Irregular Rhythm (heart rare is 84/min), +S1, +S2. absent : JVD - GI/Abdominal Exam GI & Abdominal Exam: Soft, Normal Bowel Sounds Additional comments: abdomen is obese. - Extremities Exam Extremities Exam: absent: Pedal Edema - Neurological Exam Neurological Exam: Alert, Awake, Oriented x3 - Psychiatric Exam Psychiatric exam: Normal Affect - Skin Skin Exam: Dry, Normal Color, Warm Assessment and Plan - Assessment and Plan (Free Text) Assessment: Afib Plan: EKG ordered stat. It shows afib with rate of 93/min,non specific st-t changes and poor progression of the R wave noted in the anterior leads.These changes are the same as in prior EKGs in the chart. Patient is to get Lopressor as already ordered. Dr Villagomez called by RN,message left on his cell phone.
--- NOTE | 2016-07-06 23:52 | PN ---
DATE: 07/06/2016 REFERRING PHYSICIAN: Dr. Axel Robles. SUBJECTIVE: He is lying in the bed, head at 45 degrees, nursing staff is in the room, wants to go h ome. No headache, no rhinitis, no nausea, no vomiting, no diarrhea. Decreased leg swelling. OBJECTIVE: GENERAL: No acute distress. VITAL SIGNS: Temperature is 98.6, heart rate 77, respiratory rate is 20, blood pressure 100/57, puls e ox 95% on room air. HEENT: Moist mucous membranes. Crowded airway. Mallampati score is 4. NECK: Supple. No JVD. LUNGS: Has a fair airflow. HEART: S1, S2. ABDOMEN: Soft, nontender. No organomegaly. EXTREMITIES: Decreased edema. NEUROLOGIC: Awake, alert, follows simple commands. MEDICATIONS: He is on Amaryl 4 mg daily, Ativan 2 mg a.m. and at bedtime, Ativan 2 mg IV q. 6 hours p.r.n., calcium carbonate 600 mg daily, Cardizem 240 mg daily, Coumadin 5 mg daily, trazodone 200 mg at bedtime, DuoNeb q. 6 hours, Haldol 2 mg a.m. and at bedtime, insulin coverage, potassium 20 mEq da tremayne, digoxin 0.25 mg daily, Lasix 40 mg q. 8 hours, Levemir 40 units subQ twice a day, Lipitor 40 mg daily, metoprolol tartrate 25 mg twice a day, magnesium oxide 400 mg 3 times a day, Protonix 40 mg d aily, Singulair 10 mg daily, Zestril 20 mg daily. LABORATORY DATA: Shows INR 2.50. Glucose is 250. IMPRESSION AND PLAN: Thromboembolic disease requiring mechanical thrombectomy left lower extremity, atrial fibrillation, noncompliant with the medication, obstructive lung disease, obstructive sleep ap sylvia syndrome, cardiomyopathy, hypertension, diabetes, obesity, sleep apnea syndrome. Pulmonary point of view, doing okay. Keep head elevated at 45 degrees. Bronchodilator. Gastric prophylaxis, antic oagulation. Follow up INR in the morning. Careful with sedation. Fall precaution. Thank you and w ill follow with you. Tia Godinez MD cc: [phone] TT: 07/06/2016 23:51:56 Confirmation # [id number] Dictation # [id number] jn
[2016-07-07] MEDS: Insulin Reg-HIGH-Coverage SC SCH ×5 (06:52→16:47)
[2016-07-07 07:19] LABS: ADD MANUAL DIFF? NO
[2016-07-07 07:22] LABS: BASO # 0.05 K/mm3 (0.0-2.0); BASO % 0.5 % (0.0-3.0); EOS # 0.2 (0.0-0.7); EOS % 1.6 % (1.5-5.0); GRAN # 6.52 (1.4-6.5); GRAN % 71.7 % (50.0-68.0); HEMATOCRIT 38.1 % (42.0-52.0); LYMPH # 1.4 (1.2-3.4); LYMPH % 15.5 % (22.0-35.0); MEAN CELL VOLUME 86.4 fL (80.0-105.0); MEAN CORPUSCULAR HEMOGLOBIN 27.9 pg (25.0-35.0); MEAN CORPUSCULAR HGB CONC 32.3 g/dl (31.0-37.0); MEAN PLATELET VOLUME 11.2 fl (7.0-11.0); MONO % 10.7 % (1.0-6.0); PLATELET COUNT 184 10^3/uL (120.0-450.0); RED CELL DISTRIBUTION WIDTH 16.1 % (11.5-14.5); WHITE BLOOD COUNT 9.1 10^3/ul (4.5-11.0)
[2016-07-07 07:34] LABS: INR 2.47 (0.93-1.08)
[2016-07-07 07:56] LABS: ALB/GLOB RATIO 1.2 (1.1-1.8); ALKALINE PHOSPHATASE 67 U/L (38-133); ALT/SGPT 30 U/L (7-56); AST/SGOT 21 U/L (15-59); BILIRUBIN,TOTAL 0.9 mg/dL (0.2-1.3); BLOOD UREA NITROGEN 16 mg/dL (7-21); CALCIUM 8.3 mg/dL (8.4-10.5); CARBON DIOXIDE 32 mmol/L (21-33); CHLORIDE 97 mmol/L (98-107); GFR AFRICAN-AMERICAN > 60; MAGNESIUM 1.8 mg/dL (1.7-2.2); POTASSIUM 3.8 mmol/L (3.6-5.0); SODIUM 138 mmol/L (132-148); TOTAL PROTEIN 5.9 g/dL (5.8-8.3)
[2016-07-07 08:07] LABS: GLUCOSE,RANDOM 305 mg/dL (70-110)
[2016-07-07] MEDS: Pantoprazole 40 mg EC Tab PO SCH (08:28)
[2016-07-07] MEDS: Insulin Detemir 100 units/ml Vial (Levemir) SC SCH (09:32)
[2016-07-07] MEDS: Magnesium Oxide 400 mg Tab UD PO SCH ×3 (10:52→18:05)
[2016-07-07] MEDS: Potassium Chloride 20 mEq ER Tab PO SCH (10:52)
[2016-07-07] MEDS: diltiaZEM 240 mg/24 Hours CD Cap PO SCH (10:52)
--- NOTE | 2016-07-07 13:29 | PN ---
DATE: 07/07/2016 The patient is in room 576, bed 1. REASON FOR CONSULTATION AND FOLLOWUP: Atrial fibrillation, acute limb ischemia, hypertension, COPD, obstructive sleep apnea, status post thrombectomy, obesity. HISTORY OF PRESENT ILLNESS: A 55-year-old male, very noncompliant with followup as well as with medi cation, has chronic atrial fibrillation, morbid obesity, status post CORA cardioversion, history of ca theterization x 2 which showed nonischemic cardiomyopathy. Multiple times, arrangements were made fo r atrial fibrillation ablation. Multiple times, he did not show up for his appointment. Now, he has a few appointment on 07/17/[address] Bonilla, contamination consultant. The patient was admitted with atrial fibrillation with rapid rate as well as acute limb ischemia. Now, patient is post thrombectom y and after that, patient started getting episodes of confusion and restlessness. The patient is fee ling much better today. Denies any chest pain, shortness of breath, palpitation. PHYSICAL EXAMINATION: VITAL SIGNS: Blood pressure 103/70, respirations 20, pulse 93, temperature 97.4. HEAD: Normocephalic. EYES: Pupils normal. Conjunctivae slightly pale. NECK: JVP low. Carotid equal. THORAX: AP diameter normal. LUNGS: Clear. CARDIOVASCULAR: S1, S2, atrial fibrillation. ABDOMEN: Soft, no tenderness, no organomegaly. Bowel sounds normal. EXTREMITIES: No clubbing, no cyanosis. LABORATORIES: WBC 9.1, hemoglobin 12.3, hematocrit 38.1, platelets 184. Sodium 138, potassium 3.8, BUN 16, creatinine 0.8, sugar 319. AST, ALT normal. Total protein, albumin normal. DIAGNOSES: Atrial fibrillation which is chronic, rate controlled, altered mental status, status post acute limb ischemia, status post popliteal thrombolysis, status post left anterior tibial and tibiop eroneal trunk percutaneous thrombolysis, morbid obesity, nonobstructive coronary artery disease, raymond schemic cardiomyopathy most likely related to alcohol, history of tobacco abuse and alcohol abuse, sl eep apnea, chronic obstructive pulmonary disease, altered mental status which is improving now. The patient on Diltiazem CD 240 p.o. daily, warfarin 5 mg daily, potassium 20 mEq p.o. daily, digoxin 0.25 daily, furosemide 40 mg p.o. q. 8 hours, insulin Levemir 40 units subQ b.i.d., Lipitor 40 daily , metoprolol tartrate 25 b.i.d., lisinopril 20 mg daily, Amaryl 4 mg b.i.d., Singulair 10 mg daily, P rotonix 40 p.o. daily. We will continue medication. We will follow with you. Tia Cabello MD cc: [id number] TT: 07/07/2016 13:28:42 Confirmation # [id number] Dictation # [id number]
--- NOTE | 2016-07-07 13:32 | CARD ---
APPROVED REPORT EKG Measurement Heart [id number] <Conclusion> Atrial fibrillation Low voltage QRS Nonspecific T wave abnormality, probably digitalis effect Abnormal ECG
[2016-07-07] MEDS: Digoxin 250 mcg (0.25 mg) Tab PO SCH (15:33)
[2016-07-07 15:37] VITALS: PULSE 85
--- NOTE | 2016-07-07 16:01 | PN ---
DATE: 07/07/2016 Shortly, the patient is a 55-year-old male with long history of bipolar disorder, history o f previous admissions to the psychiatric inpatient unit. The patient does not have outpatient psychi atrist and patient was prescribed psychotropic medication by primary care physician whom patient foll ows up regularly. This time, the patient was admitted on the medical floor for COPD exacerbation as well as atrial fibrillation. The patient also complained of the midsternal chest pain. Psych consul t was called for evaluation of mood symptoms as well as the patient has aggressive behavior as well a s patient had episodes of confusion. This video game script writer reviewed previous notes from Dr. Meier. Discussed the case with the primary care physician, Dr. Axel Villagomez. The patient was seen. This video game script writer is very familiar with this patient from the previous admissions to the psychiatric inpatient unit as wel l as real estate consultant on the medical floor. Most recently, patient was seen by this video game script writer less than a mon ago, under the same circumstances. From this video game script writer's perspective, the patient is not at his base line because patient presented to be having episodes of confusion, was talking to the people who were not in the room at the morning time, but to be fair with this video game script writer's assessment, patient was alert and oriented during the interview and patient knows the circumstances of his medical issues as well as was oriented in place as well as time and remembered this video game script writer by name. Still, at the same time , as per nursing staff, the patient has episodes of confusion, was talking to the people who were not in the room today at the morning time. The patient seems to have still delirium stage. VITAL SIGNS: This video game script writer reviewed vital signs. The patient is tachycardic, pulse is 93, blood press ure 118/72, respirations 20, oxygen saturation is 93, which is low. MEDICATIONS: Reviewed. The patient is on DuoNeb, Lipitor, calcium carbonate, digoxin, Cardizem, Las ix, Amaryl, Haldol 2 mg in the morning time and the nighttime scheduled, but nursing staff held Haldo l at the morning time. Last dose was at 6:53 a.m. today. The patient also is on Levemir, Humulin, Z estril, Ativan, magnesium oxide, Lopressor, Protonix, Singulair, Protonix, K-Dur, trazodone 200 mg at the nighttime and Coumadin. LABORATORY DATA: Reviewed. Hemoglobin and hematocrit 12.3 and 38.1 respectively. Chemistry reviewe d. Toxicology reviewed. Notes from visitor services specialist as well as tandem operator reviewed. MENTAL STATUS EXAMINATION: The patient appears to be alert and oriented. Fair eye contact. Speech was somewhat loud and underproductive. Mood described "I am fine." Affect was reactive, at times mo od incongruent. Also patient has episodes of being agitated, but not physically aggressive. Thought process seems to be improving, but still has episodes of disorganized thought process. Thought cont ent: The patient denied visual, auditory, tactile hallucinations, denied paranoid ideations, but as per nursing staff, patient was talking to the people who are not in the room, still appears to be in delirium stage. Insight and judgment improving, but still limited. Impulses are unpredictable. IMPRESSION: The patient has history of bipolar disorder. The patient, at present moment, seems to b e in delirium stage, which is related to the medical issues. To be fair to the patient, patient is i mproving, but not at his baseline yet. The patient has multiple medical issues including chronic obs tructive pulmonary disease, atrial fibrillation. The patient has obesity. The patient has multiple medical issues. Please see medical team notes for more detailed information. PLAN: Based on patient's presentation, patient's mental status is fluctuating. The patient is not a t his baseline. This video game script writer is in agreement with Dr. Villagomez. As per Dr. Villagomez, patient is not at his baseline yet, but patient is improving very much so. The patient would benefit from staying f or observation for another day or so. The patient will be followed up by psychiatry team tomorrow in order to make a final decision. The patient will be placed on p.r.n. orders as long as IV lines was removed due to redness. The patient might benefit from followup with psychiatrist, but the patient is reluctant to do so. The patient wants to be followed up with Dr. Villagomez. At the same time, the patient denied thoughts of harming himself or others, denied intent or plan, but patient is still in his delirium stage. Hopefully, patient will be improved and will be ready for discharge anytime danilo n, but at present moment, the patient seems to be not ready for discharge. Thank you very much for letting me participate in the care of your patient. Should you have any ques tions, give me a call back. Psychiatry team will follow up on this patient over the weekend. The pa jameson lacks capacity to sign against medical advice papers because patient was not able to verbalize potential consequences of leaving hospital against medical advice. Thank you very much for letting me participate in the care of your patient. Should you have any ques tions, give me a call back. Eli Garcia MD cc: [phone] TT: 07/07/2016 16:00:48 Confirmation # [id number] Dictation # [id number]
--- NOTE | 2016-07-07 18:21 | PN ---
DATE: 07/07/2016 REFERRING PHYSICIAN: Dr. Axel Villagomez. SUBJECTIVE: He is out of bed to chair, much more cooperative. Feels better. No headache, no rhinit is, no cough, no sputum production. No nausea, no vomiting, no diarrhea. Has trace leg swelling. OBJECTIVE: GENERAL: No acute distress. VITAL SIGNS: Temperature is 98, heart rate is 66, respiratory rate is 20, blood pressure 99/60, puls e ox 94% on room air. HEENT: Moist mucous membrane. Crowded airway. Mallampati score is 4. NECK: Short, thick neck. LUNGS: Have fair airflow with a few rhonchi. HEART: S1, S2. ABDOMEN: Soft, nontender. No organomegaly. EXTREMITIES: There is trace edema. NEUROLOGIC: Awake, alert, follows simple command. MEDICATIONS: He is on Amaryl 4 mg daily, Ativan 2 mg a.m. and at bedtime, also Ativan 2 mg q. 6 hour s p.r.n., calcium carbonate 600 mg daily, Cardizem CD 240 mg daily, Coumadin 5 mg daily, trazodone 20 0 mg at bedtime, DuoNeb q. 2 hours p.r.n., Geodon 10 mg IM q. 8 hours p.r.n., Haldol 2 mg a.m. and at bedtime, also Haldol 5 mg IV q. 6 hours p.r.n., insulin coverage, potassium 20 mEq daily, digoxin 0.25 mg daily, Lasix 40 mg q. 8 hours, Levemir 40 units subQ twice a day, Lipitor 40 mg daily, metopr olol tartrate 25 mg twice a day, magnesium oxide 400 mg 3 times a day, Protonix 40 mg ACB, Singulair 10 mg daily, lisinopril 20 mg daily. LABORATORY DATA: Shows hemoglobin 12.3, hematocrit 38.1, WBC 9.1, platelet count is 184. INR 2.47. Sodium 138, potassium 3.8, chloride 97, bicarbonate 32, BUN 16, creatinine 0.8, glucose is 305, calc ium 8.3. AST 21, ALT 30, alkaline phosphatase is 67, albumin is 3.3. IMPRESSION AND PLAN: Thromboembolic disease with left lower extremity thrombus requiring mechanical thrombectomy, atrial fibrillation, chronic obstructive lung disease, obstructive sleep apnea syndrome , cardiomyopathy, hypertension, diabetes, obesity. From pulmonary point of view, doing well. Sleep apnea precaution. Keep head at 45 degrees. Encourage BiPAP use. Diuretics, anticoagulation, inhale d bronchodilator. Fall precaution. I spoke to nursing staff at bedside. INR in the morning. Thank you, and will follow with you. Tia Godinez MD cc: [id number] TT: 07/07/2016 18:20:36 Confirmation # [id number] Dictation # [id number] mn
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
[2016-07-08] MEDS: Insulin Reg-HIGH-Coverage SC SCH ×3 (00:17→12:17)
[2016-07-08] MEDS: Insulin Detemir 100 units/ml Vial (Levemir) SC SCH ×2 (00:18→10:10)
[2016-07-08 06:13] VITALS: BP 120/82
[2016-07-08 07:05] LABS: INR 2.24 (0.93-1.08)
[2016-07-08 07:58] VITALS: PULSE 67; RESP 18; TEMP 97.7; O2SAT 92
[2016-07-08] MEDS: diltiaZEM 240 mg/24 Hours CD Cap PO SCH (09:58)
[2016-07-08] MEDS: Potassium Chloride 20 mEq ER Tab PO SCH (10:00)
[2016-07-08] MEDS: Pantoprazole 40 mg EC Tab PO SCH (10:00)
[2016-07-08] MEDS: Magnesium Oxide 400 mg Tab UD PO SCH (10:00)
--- NOTE | 2016-07-08 10:17 | CON ---
DATE: 07/08/2016 HISTORY OF PRESENT ILLNESS: The patient is a 55-year-old white male with a history of bipolar disord er as well as recent admission to psychiatric inpatient unit who is being followed by psychiatry for complications associated with delirium including agitation as well as notable confusion, including fl uctuating agitation and periods of confusion. I reviewed recent progress notes and I am also milad gupta with patient from following up with him for the last week and a half. I met with patient at [facility]. The patient appears to be improving regarding his lucidity; however, still does have periods of c onfusion on the unit as well as agitation based on review of nursing notes. The underlying issue her e is not patient's history of bipolar disorder, but delirium. He is aware that is 2016, but again te lls me he is May. He is aware that he is at [facility] and he is calmer, less argument ative, less threatening, and demonstrates better focus during my 1:1 this morning. However, overall throughout the last 24 hours he still has periods of confusion, agitation, disorientation. He denies issues with mood, suicidality and he denies having any hallucinations at this time. The patient can not properly provide me the risks associated with signing out AMA, although he does want to leave the hospital. The patient's insight and judgment are still considered to be impaired due to delirium. VITAL SIGNS: Reviewed. RECENT LABORATORIES: Reviewed. MEDICATIONS: Were also reviewed and relevant psychiatric medications include: Haldol 2 mg a.m. and at bedtime, Haldol 5 mg IV q. 6 p.r.n., Ativan 2 mg p.o. a.m. and at bedtime, Ativan 2 mg IV q. 6 ho urs p.r.n., trazodone 20 mg p.o. at bedtime and Geodon 10 mg IM q. 8 p.r.n. which will be discontinu ed as this is polypharmacy for patient's p.r.n. agitation orders. IMPRESSION: I agree with Dr. Garcia. At present moment, the patient seems to be in delirium wh ich is related to his medical issues. The patient is improving; however, he is not at baseline and c ontinues to have fluctuating changes in his mental status. The patient also has a history of bipolar disorder; however, this is not it contributing to the patient's current presentation. RECOMMENDATIONS: I will continue with current recommendations. Please note that delirium can take w eeks to completely resolve, even after the initial medical insult is addressed. Psychiatry will cont inue to follow up with patient to monitor the complications associated with delirium which is seconda ry to medical causes. We will continue to follow up with his mental status and review nursing notes and collaborate with Dr. Villagomez in this regard. However, according to recent nursing notes the pat ient, although he is more oriented, he still has periods of confusion and agitation and a code bruner w as called this morning as the patient attempted to get into the elevator again. Again, the patient d oes not have the capacity to sign out because he is still suffering from confusion associated with de lirium. He does not have a primary psychotic process causing his lack of capacity to sign out AMA at this time. Ravindra Meier MD cc: [id number] TT: 07/08/2016 10:16:59 Confirmation # [id number] Dictation # [id number] carla
--- NOTE | 2016-07-10 08:16 | DS ---
DATE OF DISCHARGE: 07/08/2016. DISCHARGE DIAGNOSIS: Right leg ischemia status post thrombectomy, arterial thrombosis, atrial fibrillation, diabetic neuro [place], diabetes mellitus type 2, hypertension, congestive cardiac failure, delirium. HOSPITAL COURSE: The patient was admitted with right leg ischemia. He underwent thrombectomy by Dr. John Paul Cannon. He was not a surgical candidate for vascular surgery. He is on Coumadin for atrial fibrillation. He murguia d several episodes of delirium during hospitalization and he also had congestive cardiac failure, whi ch improved. He was advised to be transferred to unit, but he refused to be admitted on psych unit. follow during hospitalization. He is being discharged in stable condition. PHYSICAL EXAM ON DISCHARGE: GENERAL: Comfortable in bed in no acute distress. HEENT: Normal. VITALS: Stable temperature at 98.6, heart rate is 80 bpm, blood pressure 120/60, Respiratory rate 16 permanent. NECK: No lymphadenopathy. CHEST: Air entry present, equal bilateral. No added sounds. CARDIOVASCULAR: S1, S2 normal. No murmur, no gallop. ABDOMEN: Soft, nontender. No hepatosplenomegaly. EXTREMITIES: No edema. SKIN: No petechiae, no rash. CENTRAL NERVOUS SYSTEM: Alert, oriented x3, no focal sensory or motor deficit. CONDITION ON DISCHARGE: Stable. discharge home. Follow up with Dr. Villagomez in 1 week. DISCHARGE MEDICATIONS: Lipitor 40 mg daily, digoxin 0.25 mg daily, Cardizem 240 mg daily, coumadin 7 .5 mg daily, verapamil 80 mg t.i.d., Metformin 1,000 mg p.o. bid, lisinopril 20 mg daily, 40 mg subacute b.i.d., Jamil 4 mg p.o. daily, Lasix 40 mg p.o. b.i.d., digoxin 125 mcg daily, albuterol _ ____, DuoNeb every 6 hours p.r.n. All the prescriptions given to the patient, discussed with dischar nurses, discussed with the patient and preparing discharge 45 minutes. Celena Drake MD cc: [id number] TT: 07/10/2016 01:38:11 mn
--- NOTE | 2016-07-10 10:01 | CP.PCM.PCO ---
Physician Communication Note - Physician Communication Note Physician Communication Note: pt was d/c over the weekend
== END 2016-07-08 12:44 | disposition home or self-care (01) | DRG 270 ==
LOC: ED 00:58 → ERH 05:57 → 2RNO 09:51 → CCU 18:48 → 2RNO 07-01 13:38 → CCU 07-01 14:59 → 2RNO 07-01 16:21 → 5RNO 07-05 10:33 → 5RSO 07-05 10:38
PROVIDERS: ADMIT Internal Medicine Nephrology; ATTEND Internal Medicine Nephrology
PROC: B41DZZZ Fluoroscopy of Aorta and Bilateral Lower Extremity Arteries (ICD-10-PCS; principal; 2016-06-29)
PROC: 04CU3ZZ Extirpation of Matter from Left Peroneal Artery, Percutaneous Approach (ICD-10-PCS; 2016-06-29)
PROC: 04CS3ZZ Extirpation of Matter from Left Posterior Tibial Artery, Percutaneous Approach (ICD-10-PCS; 2016-06-29)
PROC: 3E05317 Introduction of Other Thrombolytic into Peripheral Artery, Percutaneous Approach (ICD-10-PCS; 2016-06-29)
DX: I74.3 Embolism and thrombosis of arteries of the lower extremities (principal); G93.40 Encephalopathy, unspecified; I42.9 Cardiomyopathy, unspecified; E11.40 Type 2 diabetes mellitus with diabetic neuropathy, unspecified; Z68.41 Body mass index [BMI] 40.0-44.9, adult; I11.0 Hypertensive heart disease with heart failure; I50.32 Chronic diastolic (congestive) heart failure; J44.1 Chronic obstructive pulmonary disease with (acute) exacerbation; F31.81 Bipolar II disorder; I48.1 Persistent atrial fibrillation; I99.8 Other disorder of circulatory system; I27.2 Other secondary pulmonary hypertension; E66.01 Morbid (severe) obesity due to excess calories; I48.2 Chronic atrial fibrillation; I73.9 Peripheral vascular disease, unspecified; I48.0 Paroxysmal atrial fibrillation; G47.33 Obstructive sleep apnea (adult) (pediatric); I25.10 Atherosclerotic heart disease of native coronary artery without angina pectoris; E78.5 Hyperlipidemia, unspecified; E83.42 Hypomagnesemia; E87.6 Hypokalemia; E78.00 Pure hypercholesterolemia, unspecified; F10.10 Alcohol abuse, uncomplicated; Z87.891 Personal history of nicotine dependence; Z87.01 Personal history of pneumonia (recurrent); Z91.14 Patient's other noncompliance with medication regimen; Z91.19 Patient's noncompliance with other medical treatment and regimen; Z79.899 Other long term (current) drug therapy; Z79.4 Long term (current) use of insulin; Z79.84 Long term (current) use of oral hypoglycemic drugs; Z79.01 Long term (current) use of anticoagulants; Z78.1 Physical restraint status; Z59.9 Problem related to housing and economic circumstances, unspecified; Z98.84 Bariatric surgery status; S80.812A Abrasion, left lower leg, initial encounter; S80.811A Abrasion, right lower leg, initial encounter; S60.511A Abrasion of right hand, initial encounter; S90.412A Abrasion, left great toe, initial encounter; W55.03XA Scratched by cat, initial encounter; K21.9 Gastro-esophageal reflux disease without esophagitis; I08.1 Rheumatic disorders of both mitral and tricuspid valves; H91.90 Unspecified hearing loss, unspecified ear; J40 Bronchitis, not specified as acute or chronic; R20.0 Anesthesia of skin; R42 Dizziness and giddiness; Z87.898 Personal history of other specified conditions; Z87.892 Personal history of anaphylaxis; Z88.8 Allergy status to other drugs, medicaments and biological substances; Z91.018 Allergy to other foods; R41.0 Disorientation, unspecified; M19.90 Unspecified osteoarthritis, unspecified site; F41.9 Anxiety disorder, unspecified; F22 Delusional disorders; R45.1 Restlessness and agitation

== ENCOUNTER 2016-07-14 19:05 | Inpatient (IN) | payer MEDICARE, OTHER ==
[2016-07-14 19:13] VITALS: BMI 39.5
[2016-07-14] MEDS ORDERED: diltiaZEM IVPB 100mg in NS 100 ML IV PRN (19:34)
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
[2016-07-14 19:53] LABS: HEMATOCRIT 38.5 % (42.0-52.0); MEAN CELL VOLUME 85.6 fL (80.0-105.0); MEAN CORPUSCULAR HEMOGLOBIN 28.2 pg (25.0-35.0); MEAN PLATELET VOLUME 10.4 fl (7.0-11.0); WHITE BLOOD COUNT 10.2 10^3/ul (4.5-11.0)
[2016-07-14 20:02] LABS: INR 1.23 (0.93-1.08); PARTIAL THROMBOPLASTIN TIME 25.5 Seconds (23.7-30.8)
[2016-07-14 20:18] LABS: ALB/GLOB RATIO 1.2 (1.1-1.8); ALKALINE PHOSPHATASE 63 U/L (38-133); ALT/SGPT 27 U/L (7-56); AST/SGOT 25 U/L (15-59); BLOOD UREA NITROGEN 11 mg/dL (7-21); CALCIUM 9.3 mg/dL (8.4-10.5); CARBON DIOXIDE 27 mmol/L (21-33); CHLORIDE 100 mmol/L (98-107); GFR AFRICAN-AMERICAN > 60; GLUCOSE,RANDOM 278 mg/dL (70-110); POTASSIUM 4.1 mmol/L (3.6-5.0); SODIUM 136 mmol/L (132-148); TOTAL PROTEIN 6.9 g/dL (5.8-8.3)
[2016-07-14 20:28] LABS: TROPONIN I 0.06 ng/mL
[2016-07-15] MEDS ORDERED: Enoxaparin 100 mg Syringe SC STA (00:03)
[2016-07-15 01:03] VITALS: RESP 18
[2016-07-15] MEDS: diltiaZEM IVPB 100mg in NS 100 ML IV PRN ×2 (01:33→04:41)
[2016-07-15] MEDS ORDERED: Albuterol-Ipratrop 3 mg / 0.5 (3 ml) UD IH PRN (06:55)
[2016-07-15] MEDS: Albuterol-Ipratrop 3 mg / 0.5 (3 ml) UD IH PRN ×2 (07:58→14:02)
[2016-07-15] MEDS: Insulin Reg-HIGH-Coverage SC SCH ×2 (08:11→12:06)
[2016-07-15] MEDS ORDERED: MOMETASONE IH SCH (10:00)
[2016-07-15] MEDS ORDERED: Insulin Detemir 100 units/ml Vial (Levemir) SC SCH (10:00)
[2016-07-15] MEDS ORDERED: FORMOTEROL IH SCH (10:00)
[2016-07-15] MEDS ORDERED: Digoxin 500 mcg/2ml (0.5 mg/2ml) Inj IVP ONE (10:32)
[2016-07-15 10:59] VITALS: PULSE 113
[2016-07-15] MEDS ORDERED: Enoxaparin 120 mg Syringe SC SCH (13:00)
--- NOTE | 2016-07-15 13:36 | CARD ---
APPROVED REPORT EKG Measurement Heart [id number] <Conclusion> Atrial fibrillation with rapid ventricular response Low voltage QRS Nonspecific ST and T wave abnormality, probably digitalis effect Abnormal ECG
[2016-07-15] MEDS ORDERED: Digoxin 125 mcg (0.125 mg) Tab PO SCH (14:00)
--- NOTE | 2016-07-15 14:08 | CON ---
DATE: 07/15/2016 REASON FOR CONSULTATION AND FOLLOWUP: Shortness of breath, A-fib with rapid ventricular rate, nonisc hemic cardiomyopathy. BRIEF CLINICAL HISTORY: This is a 55-year-old morbidly obese male, diabetes, hypertension, hyperlipi demia, nonischemic cardiomyopathy, status post cardiac catheterization twice or maybe 3 times, nonobs tructive coronary artery disease, scheduled for radiofrequency ablation at [facility] by Dr. Abdoul olivo, but the patient did not go, admitted yesterday with complaint of shortness of breath and A-fib with rapid ventricular rate, history of chronic atrial fibrillation, noncompliance with the medicati on, on anticoagulation. PAST MEDICAL HISTORY: Significant for morbid obesity, chronic atrial fibrillation, failed CORA cardio version in the past, history of cardiac catheterization twice, possibly 3 times. Last one 2 years ag o, nonobstructive coronary artery disease. Hypertension, noncompliance with the medication, active t obacco and active alcohol abuse, history of mitral regurgitation, history of tricuspid regurgitation. Previous cardiac workup as follows: The patient had a cardiac catheterization 3 times, most likely t wice done in [facility]. First one was 8 years ago and most recently 2 years ago, 015, normal coronaries, revealed ejection fraction 55%, EDP was in the range of 30. History of hyper tension, medical treatment recommended. Emphasis made on weight reduction, compliance with medicatio n and complete abstinence of alcohol and complete abstinence of tobacco and follow up for radiofreque ncy ablation at [facility]. The patient never went there. The patient initially was on Mike xa, later on switched to Coumadin. Last echo: The patient had echocardiography 06/10/2015 that shows ejection fraction 45%, concentric LVH, global hypokinesis, moderate mitral regurgitation, tricuspid regurgitation, RV systolic pressure 20. SOCIAL HISTORY: Heavy alcohol abuse, heavy tobacco abuse in the past. CURRENT MEDICATIONS: The patient is taking trazodone, Coumadin 7.5, verapamil 80 mg 3 times a day, p otassium, Singulair. REVIEW OF SYSTEMS: As per HPI. PHYSICAL EXAMINATION: VITAL SIGNS: Temperature afebrile, heart rate 110, blood pressure 106/56. HEENT: PERRLA. Extraocular muscles intact. NECK: Supple. No carotid bruits. No thyromegaly. CHEST: Clear to auscultation. HEART: S1, S2 regular. ABDOMEN: Soft. EXTREMITIES: Clubbing and cyanosis negative. BLOOD WORKUP: WBC 10.8, hemoglobin 12.7, hematocrit 38.5, platelet count 215. Chemistry shows sodiu m 135, potassium 4.0, chloride 100, carbon dioxide 27, anion gap of 13, BUN 11, creatinine 0.7. BNP 19,070. INR 1.23, subtherapeutic IMPRESSION: Very noncompliant with the medication. Doubt patient was taking verapamil at home also because every time, the patient comes in with subtherapeutic INR. Diabetes, hypertension, hyperlipid emia, morbid obesity, status post multiple cardiac catheterizations, normal coronaries. Last was 2 y ears ago, last echo shows ejection fraction 45%, mitral and tricuspid regurgitation. RECOMMENDATION: We will give extra dose of digoxin. We will give Coumadin 10 mg today, 10 mg tomorr ow, gives a bridge Lovenox until the INR gets therapeutic and wean off of Cardizem after giving IV di goxin extra dose and also verapamil will start. We will follow with you. Thank you, Dr. Villagomez, for providing the opportunity in taking care of the patient. We will follow with you. Tia Rajan MD cc: [id number] TT: 07/15/2016 14:07:36 Confirmation # [id number] Dictation # [id number]
--- NOTE | 2016-07-15 15:48 | RAD ---
HISTORY: sob COMPARISON: Comparison made with prior study dated 06/29/2016 FINDINGS: LUNGS: Elevation right hemidiaphragm with what appears represent right lower lobe atelectasis and effusion. . Developing right lower lobe infiltrate could be excluded followup radiographs. PLEURA: No pneumothorax apparent. CARDIOVASCULAR: Marked cardiomegaly. OSSEOUS STRUCTURES: No significant abnormalities. VISUALIZED UPPER ABDOMEN: Normal. OTHER FINDINGS: None. IMPRESSION: Elevation right hemidiaphragm with mild right basilar atelectasis and effusion. Developing right lower lobe infiltrate could be excluded followup radiographs. Marked cardiomegaly.
[2016-07-15 17:29] VITALS: BP 75/53; PULSE 77; TEMP 97.5; O2SAT 97
--- NOTE | 2016-07-15 21:56 | CON ---
DATE: 07/15/2016 REFERRING PHYSICIAN: Dr. Axel Villagomez. REASON FOR CONSULT: Chronic obstructive lung disease, obstructive sleep apnea syndrome, shortness of breath. HISTORY OF PRESENT ILLNESS: This is a 55-year-old gentleman with multiple medical issues including c hronic obstructive lung disease, sleep apnea syndrome, cardiomyopathy, history of paroxysmal atrial f ibrillation, history of renal insufficiency, noncompliant with medication, followup and diet. He was supposed to go to the [facility] for repeat sleep study, did not show up. Also noncompli ant with the medication. He was scheduled to see Dr. Bonilla for ablation therapy and did not followu p with the appointment. Now comes in with shortness of breath with rapid ventricular response, seen by cardiology, started on Cardizem drip, is sitting up at the side of the bed, complaining of low arianna k discomfort. Short of breath with exertion. No nausea, no vomiting, and no diarrhea. Does have le g swelling. PAST MEDICAL HISTORY: Chronic obstructive lung disease, obstructive sleep apnea syndrome, may have h ypoventilation syndrome, cardiomyopathy, paroxysmal atrial fibrillation, hypertension. SOCIAL HISTORY: There is history of smoking and alcohol use. FAMILY HISTORY: No significant cardiopulmonary disease reported. ALLERGIES: TO SEROQUEL AND ALSO WILD BERRIES GIVE HIM RASH. MEDICATIONS: He is on Amaryl 4 mg daily, Ativan 2 mg IV daily, one dose is given, and q. 12 hours, C zach 80 mg 3 times a day, Cardizem IV drip, Coumadin 10 mg will be given tonight, trazodone 200 mg at bedtime, DuoNeb q. 6 hours p.r.n., digoxin 0.125 mg daily, Lasix 40 mg IV twice a day, Levemir 40 un its subQ twice a day, Lipitor 40 mg daily, metoprolol tartrate 25 mg twice a day, Lovenox mg wa s given and placed on 120 mg q. 12 hours, Dulera 100/5 two puffs twice a day, Singulair 10 mg daily. REVIEW OF SYSTEMS: No headache, no rhinitis. Has shortness of breath and cough. No chest pain, no nausea, no vomiting, no diarrhea. Had a palpitation, no better. Does have leg swelling and also com plaining of low back pain. PHYSICAL EXAMINATION: GENERAL: Sitting side of the bed, no acute distress. VITAL SIGNS: Temp is 98, heart rate is 77, respiratory rate is 20, blood pressure 101/66, pulse ox 9 7% on 2 liter nasal cannula. HEENT: Moist mucous membranes. Crowded airway. Mallampati score is 4. NECK: Supple. No JVD. LUNGS: Has crackles at the bases. HEART: Irregularly irregular. ABDOMEN: Obese, soft, nontender. No organomegaly. EXTREMITIES: Does have edema. NEUROLOGIC: Awake, alert, follows simple commands. LABORATORY DATA: Shows hemoglobin 12.7, hematocrit 38.5, WBC 10.2, platelet count is 215. INR 1.23, PTT is 26. Sodium 136, potassium 4.1, chloride 100, bicarbonate 27, BUN 11, creatinine 0.7, glucose 182, calcium is 9.3, AST 25, ALT 27, alkaline phosphatase is 63, LDH 704. Troponin 0.06. ProBNP 19 70, albumin is 37. Chest x-ray done on admission shows right base atelectasis and effusion. Right l ower lobe has some infiltrate, atelectasis, cardiomegaly. IMPRESSION AND PLAN: Atrial fibrillation with rapid ventricular response, cardiomyopathy, obstructiv e lung disease, obstructive sleep apnea syndrome, morbid obesity, hypertension, history of renal insu fficiency, sleep apnea syndrome, noncompliant with CPAP/BiPAP, noncompliant with the followup. I agr ee with the present management. Continue Cardizem for known beta rahat, p.o. Cardizem, anticoagula tion, bronchodilator. I spoke to patient about sleep apnea and its consequences, especially with atr ial fibrillation. Refusing to try CPAP and BiPAP. Will add inhaled bronchodilator as needed basis. Continue diuretics. Fall precaution. I had a long discussion with the patient about his health, no ncompliance and its consequences. He expressed understanding. Tia Godinez MD cc: [id number] TT: 07/15/2016 21:55:41 Confirmation # [id number] Dictation # [id number] mn
[2016-07-16] MEDS ORDERED: Digoxin 125 mcg (0.125 mg) Tab PO SCH (14:00)
--- NOTE | 2016-07-17 08:44 | HP ---
CHIEF COMPLAINT AND HISTORY OF PRESENT ILLNESS: This is a 55-year-old male who [facility] because of shortness of breath. The patient has a history of atrial fibrillation, diabetes type 2, COPD, CHF. He says he has been getting more short of breath over the last few days. The patient al so has been having episodes of delirium when he was admitted to the hospital. He was brought in for further evaluation. The patient had a heart rate in the 120s to 140s. He was given medications in t ER to help with his atrial fibrillation. He is waiting to see EPS for further management. ALLERGIES: QUETIAPINE. PAST MEDICAL HISTORY: 1. Atrial fibrillation, on Coumadin. 2. Diabetic neuropathy. 3. Diabetes type 2. 4. Hypertension. 5. COPD. 6. Dyslipidemia. 7. Morbid obesity with a BMI of . 8. CHF secondary to diastolic dysfunction. FAMILY HISTORY: Father of liver disease at 66. Mother at 52. SOCIAL HISTORY: The patient quit smoking over 20 years ago. PHYSICAL EXAMINATION: VITAL SIGNS: Temperature is 97.8, pulse of 110, blood pressure 106/56, respirations 18, height is 5 feet 8 inches, weight is 260 pounds, BMI is . HEAD AND NECK EXAM: Atraumatic, normocephalic. Conjunctivae are pink. Throat clear and mouth with moist mucosa. Oropharynx benign. EYES: Extraocular movements are intact. PERRLA. NECK: Supple. No JVD, thyromegaly, or adenopathy. No bruits. HEART: S1 and S2 irregular, no murmurs. LUNGS: Clear to auscultation bilaterally. No wheezing rales or rhonchi appreciated. No retraction s on exam. ABDOMEN: Soft, nontender, nondistended. Bowel sounds are positive in all quadrants. No rebound. No hepatosplenomegaly. EXTREMITIES: No cyanosis, clubbing, or edema. NEURO: No facial asymmetry, tongue is midline, no uvula deviation. Power is 5/5 in upper extremity and 5/5 in lower extremity. Sensation is normal in upper extremity and lower extremity. PSYCH: Awake, alert, oriented x3. No anxiety or depression symptoms. Good insight. Normal affec t. : No CVA tenderness VASCULAR: 2+ pulses in carotid and pedal pulses. SKIN: No erythema or abnormal nodules noted. SPINE: Normal curvature. LYMPHADENOPATHY: No anterior cervical or posterior cervical adenopathy. No inguinal adenopathy. LABORATORY DATA: White count of 10.2 and hemoglobin is 12.7. All other labs have been reviewed. Pr oBNP is 1970. Troponin is 0.06. ASSESSMENT: 1. Shortness of breath. 2. History of left leg ischemia status post thrombectomy, improved. 3. Chronic obstructive pulmonary disease. 4. Atrial fibrillation, subtherapeutic INR on Coumadin. 5. Diabetes type 2. 6. Hypertension. 7. Dyslipidemia. 8. Congestive heart failure secondary to diastolic dysfunction. 9. Morbid obesity with a body mass index of . PLAN: The patient is currently comfortable. He had a chest x-ray done that shows no infiltrates. H e is going to need cardiac which shows rapid afib. Chest x-ray shows a right pleural effusion. The patient is going to continue with his Ativan. He is on a Cardizem drip. The patient is on Cou madin. He is on Lanoxin. The patient is going to continue with Lasix. The patient is on Levemir fo r diabetes. The patient is on Lipitor for dyslipidemia. The patient is on Zestril for hypertension. I will also get a psychiatric evaluation as the patient does have high risk of having . Axel Villagomez MD cc: [id number] TT: 07/15/2016 11:30:54 07/15/2016 13:31:08
--- NOTE | 2016-08-06 13:04 | DS ---
The patient was discharged. Please see the note that was dictated on 07/15/2016 for details. The randi barba had left AMA. Axel Villagomez MD cc: [id number] TT: 08/06/2016 13:04:01 mn
== END 2016-07-15 18:42 | disposition left against medical advice (07) | DRG 309 ==
LOC: ED 19:05 → ERH 07-15 00:07 → 2RNO 07-15 02:00
PROVIDERS: ADMIT Internal Medicine Nephrology; ATTEND Internal Medicine Nephrology
DX: I48.0 Paroxysmal atrial fibrillation (principal); I50.30 Unspecified diastolic (congestive) heart failure; I42.9 Cardiomyopathy, unspecified; E11.40 Type 2 diabetes mellitus with diabetic neuropathy, unspecified; I11.0 Hypertensive heart disease with heart failure; E66.01 Morbid (severe) obesity due to excess calories; I08.1 Rheumatic disorders of both mitral and tricuspid valves; I25.10 Atherosclerotic heart disease of native coronary artery without angina pectoris; I48.2 Chronic atrial fibrillation; E78.5 Hyperlipidemia, unspecified; F31.9 Bipolar disorder, unspecified; G47.33 Obstructive sleep apnea (adult) (pediatric); H91.90 Unspecified hearing loss, unspecified ear; H50.9 Unspecified strabismus; J44.9 Chronic obstructive pulmonary disease, unspecified; K21.9 Gastro-esophageal reflux disease without esophagitis; Z79.01 Long term (current) use of anticoagulants; Z79.899 Other long term (current) drug therapy; Z87.891 Personal history of nicotine dependence; Z91.14 Patient's other noncompliance with medication regimen; Z91.19 Patient's noncompliance with other medical treatment and regimen; Z98.84 Bariatric surgery status; S80.812A Abrasion, left lower leg, initial encounter; S80.811A Abrasion, right lower leg, initial encounter; S60.511A Abrasion of right hand, initial encounter; W55.03XA Scratched by cat, initial encounter; M19.90 Unspecified osteoarthritis, unspecified site; F41.9 Anxiety disorder, unspecified; Z87.898 Personal history of other specified conditions; Z88.8 Allergy status to other drugs, medicaments and biological substances; Z87.892 Personal history of anaphylaxis; F10.10 Alcohol abuse, uncomplicated

== ENCOUNTER 2016-07-18 21:41 | Inpatient (IN) | payer MEDICARE, OTHER ==
[2016-07-18 21:41] VITALS: BMI 39.5
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
[2016-07-18 23:05] LABS: ALB/GLOB RATIO 1.3 (1.1-1.8); ALKALINE PHOSPHATASE 70 U/L (38-133); ALT/SGPT 30 U/L (7-56); AST/SGOT 19 U/L (15-59); BILIRUBIN,TOTAL 1.1 mg/dL (0.2-1.3); BLOOD UREA NITROGEN 11 mg/dL (7-21); CALCIUM 9.4 mg/dL (8.4-10.5); CARBON DIOXIDE 26 mmol/L (21-33); CHLORIDE 100 mmol/L (98-107); GFR AFRICAN-AMERICAN > 60; GLUCOSE,RANDOM 294 mg/dL (70-110); HEMATOCRIT 38.3 % (42.0-52.0); MEAN CELL VOLUME 86.1 fL (80.0-105.0); MEAN CORPUSCULAR HEMOGLOBIN 28.3 pg (25.0-35.0); MEAN CORPUSCULAR HGB CONC 32.9 g/dl (31.0-37.0); MEAN PLATELET VOLUME 10.8 fl (7.0-11.0); POTASSIUM 3.7 mmol/L (3.6-5.0); RED CELL DISTRIBUTION WIDTH 16.1 % (11.5-14.5); SODIUM 138 mmol/L (132-148); TOTAL PROTEIN 7.1 g/dL (5.8-8.3); WHITE BLOOD COUNT 9.9 10^3/ul (4.5-11.0)
[2016-07-18] MEDS: diltiaZEM IVPB 100mg in NS 100 ML IV PRN (23:13)
[2016-07-18 23:16] LABS: TROPONIN I 0.07 ng/mL
[2016-07-18] MEDS ORDERED: Potassium Chloride 20 mEq ER Tab PO STA (23:20)
[2016-07-18 23:36] LABS: INR 1.22 (0.93-1.08); PARTIAL THROMBOPLASTIN TIME 25.2 Seconds (23.7-30.8)
[2016-07-18] MEDS ORDERED: Enoxaparin 100 mg Syringe SC STA (23:56)
--- NOTE | 2016-07-19 07:59 | RAD ---
HISTORY: sob COMPARISON: 07/14/2016 FINDINGS: LUNGS: Shallow lung volume as before. Slightly asymmetrically elevated right hemidiaphragm is similar-appearing. A minimally blunted right costophrenic angle is noted as before. Pulmonary vascular mild congestion suspect -more conspicuous on the left side. Study slightly rotated right related. No gross consolidation appreciated PLEURA: A similarly blunted right costophrenic angle consistent with small pleural effusion and/or chronic pleural parenchymal thickening is similar-appearing. No pneumothorax apparent. CARDIOVASCULAR: Cardiomegaly as before OSSEOUS STRUCTURES: No significant abnormalities. VISUALIZED UPPER ABDOMEN: Normal. OTHER FINDINGS: None. IMPRESSION: Cardiomegaly and mild pulmonary venous congestion - the vascular congestion appears slightly increased compared the prior study. Similarly elevated right hemidiaphragm (mild)-unchanged. Small right pleural effusion versus right costophrenic angle minimal pleural thickening suggested- -unchanged
[2016-07-19 08:50] LABS: HEMATOCRIT 37.6 % (42.0-52.0); MEAN CELL VOLUME 86.2 fL (80.0-105.0); MEAN CORPUSCULAR HEMOGLOBIN 28.4 pg (25.0-35.0); MEAN PLATELET VOLUME 10.4 fl (7.0-11.0); RED CELL DISTRIBUTION WIDTH 16.2 % (11.5-14.5); WHITE BLOOD COUNT 9.8 10^3/ul (4.5-11.0)
[2016-07-19 08:52] LABS: ALB/GLOB RATIO 1.2 (1.1-1.8); ALKALINE PHOSPHATASE 70 U/L (38-133); ALT/SGPT 32 U/L (7-56); AST/SGOT 15 U/L (15-59); BILIRUBIN,TOTAL 1.3 mg/dL (0.2-1.3); BLOOD UREA NITROGEN 10 mg/dL (7-21); CALCIUM 9.1 mg/dL (8.4-10.5); CARBON DIOXIDE 28 mmol/L (21-33); CHLORIDE 100 mmol/L (98-107); GFR AFRICAN-AMERICAN > 60; GLUCOSE,RANDOM 198 mg/dL (70-110); MAGNESIUM 1.5 mg/dL (1.7-2.2); POTASSIUM 3.9 mmol/L (3.6-5.0); SODIUM 137 mmol/L (132-148); TOTAL PROTEIN 6.9 g/dL (5.8-8.3)
[2016-07-19] MEDS ORDERED: Enoxaparin 100 mg Syringe SC SCH (09:00)
[2016-07-19 09:03] LABS: TROPONIN I 0.08 ng/mL
[2016-07-19] MEDS: Potassium Chloride 20 mEq ER Tab PO SCH (09:28)
[2016-07-19] MEDS: Insulin Reg-MEDIUM-Coverage SC SCH ×4 (09:28→22:17)
[2016-07-19] MEDS: Insulin Detemir 100 units/ml Vial (Levemir) SC SCH ×2 (09:29→17:24)
[2016-07-19] MEDS: Enoxaparin 100 mg Syringe SC SCH ×2 (09:29→20:03)
--- NOTE | 2016-07-19 09:48 | HP ---
CHIEF COMPLAINT AND HISTORY OF PRESENT ILLNESS: This is a 55-year-old male who is coming into the [facility] with complaints of palpitations. He has a past medical history of atrial fibrillation. The p atient says that he was having more palpitations and so he came in. He recently left AMA a few days ago. He has a history of hypertension, diabetes type 2, COPD, dyslipidemia, atrial fibrillation on a nticoagulation. He denies any fevers or chills, no nausea, no vomiting, no dysuria or frequency, no weakness in the arms or the legs. All other review of symptoms is within normal limits. He is alert and awake today, answering questions appropriately. ALLERGIES: No known drug allergies. HOME MEDICATIONS: Lanoxin, Singulair, Levemir, Zestril, Dulera. PAST MEDICAL HISTORY: 1. Atrial fibrillation, on Coumadin. 2. Diabetic neuropathy. 3. Diabetes type 2. 4. Hypertension. 5. COPD. 6. Dyslipidemia. 7. Morbid obesity with a BMI of 39. 8. CHF secondary to diastolic dysfunction. 9. Left leg ischemia with thrombectomy. FAMILY HISTORY: Father of liver diseases at 66. Mother at 52. SOCIAL HISTORY: The patient quit smoking over 20 years ago. PHYSICAL EXAMINATION: VITAL SIGNS: Temperature is 98.1, pulse of 93, blood pressure 128/80, respirations 22. Height is 5 feet 8 inches, weight is 260 pounds, BMI is 39. GENERAL: Patient lying in bed, flat, and in no apparent distress. HEAD AND NECK EXAM: Atraumatic, normocephalic. Conjunctivae are pink. Throat clear and mouth with moist mucosa. Oropharynx benign. EYES: Extraocular movements are intact. PERRLA. NECK: Supple. No JVD, thyromegaly, or adenopathy. No bruits. HEART: S1, S2 irregular. No murmurs. LUNGS: Clear to auscultation bilaterally. No wheezing rales or rhonchi appreciated. No retraction s on exam. ABDOMEN: Soft, nontender, nondistended. Bowel sounds are positive in all quadrants. No rebound. No hepatosplenomegaly. EXTREMITIES: No cyanosis, clubbing, or edema. NEURO: No facial asymmetry, tongue is midline, no uvula deviation. Power is 5/5 in upper extremity and 5/5 in lower extremity. Sensation is normal in upper extremity and lower extremity. PSYCH: Awake, alert, oriented x3. No anxiety or depression symptoms. Good insight. Normal affec t. : No CVA tenderness VASCULAR: 2+ pulses in carotid and pedal pulses. SKIN: No erythema or abnormal nodules noted. SPINE: Normal curvature. LYMPHADENOPATHY: No anterior cervical or posterior cervical adenopathy. No inguinal adenopathy. LABORATORY DATA: White count of 9.9, hemoglobin 12.6, platelet count is 213. INR is 1.2. Chemistry shows a sodium of 138, potassium 3.7, troponin 0.07, proBNP is 2730. Digoxin is 0.7. Chest x-ray done shows cardiomegaly and mild pulmonary venous congestion. ASSESSMENT: 1. Atrial fibrillation with rapid rate. 2. Diabetes type 2. 3. Diabetic neuropathy. 4. Hypertension. 5. Chronic obstructive pulmonary disease. 6. Dyslipidemia. 7. Congestive heart failure secondary to diastolic dysfunction. 8. Morbid obesity with a body mass index of 39. 9. Left leg ischemia, status post thrombectomy. PLAN: The patient is going to be on verapamil for his atrial fibrillation. I am not sure how adhere nt he is to his medications. He is subtherapeutic on his INR. He is going to be placed on Coumadin dosage. He is on metformin for his diabetes. He is on digoxin for his atrial fibrillation. He is o n Lipitor for dyslipidemia. He was given Lovenox in the ER. We will continue the patient's Lovenox for his atrial fibrillation. The patient is on lisinopril for hypertension. We will get Dr. Godinez for his COPD. We will get psychiatry to evaluate the patient as he becomes confused at times in the hospital. We will get Dr. 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 Axel Villagomez MD cc: [id number] TT: 07/19/2016 09:47:42 ne
--- NOTE | 2016-07-19 11:35 | CP.PCM.CON ---
History of Present Illness - History of Present Illness History of Present Illness: Palliative consult requested by Dr Audrey Villagomez Reason: Advance care planning 55 year old male who presented with complaints with palpitations and shortness of breath .EKG a fib 134bpm, RVR, non specific ST/T wave changes. Chest x ray showed elevated olive diaphragm, mild effusion and cardiomegaly. he was recently admitted on 07/14/16 with rapid a Fib and CHF but signed out AMA PMHx: atrial fibrillation, CHF,HTN, DM,diabetic neuropathy, COPD, dyslipidemia, COPD,mutiple cardiac catheterizations which showed normal coronary arteries, EF 45%, mild mitral and tricuspid regurgitation. Social History: Former smoker, denies alcohol or drug use Family History: Father of liver disease. Advance Care Planning: He does not have an Advanced Directive. Review of Systems: Patient Real any complaints at this time.12 point review of systems negative Past Patient History - Infectious Disease Hx of Infectious Diseases: None - Tetanus Immunizations Tetanus Immunization: Unknown - Past Medical History & Family History Past Medical History?: Yes - Past Social History Smoking Status: Former Smoker - CARDIAC Hx Cardiac Disorders: Yes Hx Cardia Arrhythmia: Yes (Afib) Hx Congestive Heart Failure: Yes Hx Hypercholesterolemia: Yes Hx Hypertension: Yes Hx Peripheral Edema: Yes Hx Peripheral Vascular Disease: Yes - PULMONARY Hx Respiratory Disorders: Yes Hx Chronic Obstructive Pulmonary Disease (COPD): Yes Hx Emphysema: Yes Hx Pneumonia: Yes Hx Sleep Apnea: Yes - NEUROLOGICAL Hx Neurological Disorder: No - HEENT Hx HEENT Problems: Yes Other/Comment: strabismus - RENAL Hx Chronic Kidney Disease: No - ENDOCRINE/METABOLIC Hx Endocrine Disorders: Yes Hx Diabetes Mellitus Type 2: Yes - HEMATOLOGICAL/ONCOLOGICAL Hx Blood Disorders: No - INTEGUMENTARY Hx Dermatological Problems: No - MUSCULOSKELETAL/RHEUMATOLOGICAL Hx Falls: No - GASTROINTESTINAL Hx Gastrointestinal Disorders: Yes Hx Gastroesophageal Reflux: Yes - GENITOURINARY/GYNECOLOGICAL Hx Genitourinary Disorders: No - PSYCHIATRIC Hx Substance Use: Yes - SURGICAL HISTORY Hx Surgeries: No Hx Cardiac Catheterization: Yes - ANESTHESIA Hx Anesthesia: No Hx Anesthesia Reactions: No Hx Malignant Hyperthermia: No Meds Allergies/Adverse Reactions: Allergies Allergy/AdvReac Type Severity Reaction Status Date / Time quetiapine fumarate AdvReac ANAPHYLAXIS Verified 06/20/16 01:51 [From Seroquel] wild berries Allergy Intermediate RASH Uncoded 05/22/16 19:02 - Medications Medications: Current Medications Albuterol/Ipratropium (Duoneb 3 Mg/0.5 Mg (3 Ml) Ud) 3 ml IH [id number] PRN PRN Reason: sob/wheezing Atorvastatin Calcium (Lipitor) 40 mg PO DIN [facility] Digoxin (Lanoxin) 0.125 mg PO 1400 [facility] Enoxaparin Sodium (Lovenox) 100 mg SC Q12H [facility] PRN Reason: Protocol Last Admin: 07/19/16 09:29 Dose: 100 mg Furosemide (Lasix) 40 mg PO BID [facility] Last Admin: 07/19/16 09:33 Dose: 40 mg Glimepiride (Amaryl) 4 mg PO DAILY [facility] Last Admin: 07/19/16 09:27 Dose: 4 mg diltiaZEM IVPB 100mg in NS (Cardizem 100mg In Ns) 100 mls @ 5 mls/hr IV .Q20H PRN; Protocol; 5 MG/HR PRN Reason: PER Last Admin: 07/18/16 23:13 Dose: 5 mls/hr Insulin Detemir (Levemir) 40 unit SC BID [facility] Last Admin: 07/19/16 09:29 Dose: 40 unit Insulin Human Regular (Humulin R Med) 0 units SC ACHS [facility] PRN Reason: Protocol Last Admin: 07/19/16 09:28 Dose: 3 units Lisinopril (Zestril) 20 mg PO DAILY [facility] Last Admin: 07/19/16 09:34 Dose: 20 mg Lorazepam (Ativan) 2 mg PO AMHS [facility] PRN Reason: Protocol Last Admin: 07/19/16 09:27 Dose: 2 mg Metformin HCl (Glucophage) 1,000 mg PO BID [facility] Last Admin: 07/19/16 09:27 Dose: 1,000 mg Montelukast Sodium (Singulair) 10 mg PO DAILY [facility] Last Admin: 07/19/16 09:27 Dose: 10 mg Potassium Chloride (K-Dur 20 Meq Er Tab) 20 meq PO DAILY [facility] Last Admin: 07/19/16 09:28 Dose: 20 meq Trazodone HCl (Desyrel) 200 mg PO HS [facility] Verapamil HCl (Calan Tab) 80 mg PO TID [facility] Last Admin: 07/19/16 09:33 Dose: 80 mg Warfarin Sodium (Coumadin) 7.5 mg PO 1800 [facility] PRN Reason: Protocol Physical Exam - Constitutional Appears: No Acute Distress Additional comments: obese - Head Exam Head Exam: NORMAL INSPECTION - Eye Exam Eye Exam: Normal appearance, PERRL - ENT Exam ENT Exam: Mucous Membranes Moist, Normal Oropharynx - Neck Exam Neck exam: Positive for: Normal Inspection - Respiratory Exam Respiratory Exam: Clear to Auscultation Bilateral, NORMAL BREATHING PATTERN - Cardiovascular Exam Cardiovascular Exam: REGULAR RHYTHM, +S1 - GI/Abdominal Exam GI & Abdominal Exam: Normal Bowel Sounds, Soft Additional comments: no tenderness or guarding - Extremities Exam Extremities exam: Positive for: full ROM, pedal pulses present - Back Exam Back exam: NORMAL INSPECTION - Neurological Exam Neurological exam: Alert, Oriented x3 - Skin Skin Exam: Dry, Warm - Additional Findings Additional findings: Palliative performance scale rating 60 % Results - Vital Signs Recent Vital Signs: Last Vital Signs Temp 98.1 F 07/19/16 06:00 Pulse 93 H 07/19/16 09:34 Resp 22 07/19/16 06:00 BP 128/80 07/19/16 09:34 Pulse Ox 99 07/19/16 06:00 - Labs Result Diagrams: 07/19/16 08:00 07/19/16 08:00 Labs: Laboratory Results - last 24 hr 07/19/16 07/19/16 07/19/16 08:00 08:00 08:19 WBC 9.8 RBC 4.36 Hgb 12.4 L Hct 37.6 L MCV 86.2 MCH 28.4 MCHC 33.0 RDW 16.2 H Plt Count 199 MPV 10.4 Sodium 137 Potassium 3.9 Chloride 100 Carbon Dioxide 28 Anion Gap 13 BUN 10 Creatinine 0.8 Est GFR ( Amer) > 60 Est GFR (Non-Af Amer) > 60 POC Glucose (mg/dL) 215 H Random Glucose 198 H Calcium 9.1 Magnesium 1.5 L Total Bilirubin 1.3 AST 15 ALT 32 Alkaline Phosphatase 70 Troponin I 0.08 Total Protein 6.9 Albumin 3.7 Globulin 3.2 Albumin/Globulin Ratio 1.2 07/19/16 11:17 WBC RBC Hgb Hct MCV MCH MCHC RDW Plt Count MPV Sodium Potassium Chloride Carbon Dioxide Anion Gap BUN Creatinine Est GFR ( Amer) Est GFR (Non-Af Amer) POC Glucose (mg/dL) 258 H Random Glucose Calcium Magnesium Total Bilirubin AST ALT Alkaline Phosphatase Troponin I Total Protein Albumin Globulin Albumin/Globulin Ratio Assessment & Plan - Assessment and Plan (Free Text) Assessment: 55 year old male admitted with rapid a fib, shortness of breath. Multiple previous admissions, most recently 07/14 with A Fib/CHF but he signed out AMA. Multiple comorbidities, see PMH. The patient is alert and oriented. Refused to open his eyes and look at me when he spoke. I explained the role of palliative services and asked specifically if we could speak about advanced directives. I explained what an advanced directive was. He stated that he would want to try CPR/ intubation if he had a condition which could be reversed, but would not want to be "kept alive on machines". He stated that he did not want to proceed with an Advance Directive today but that he would think about it. He sted he wanted to sleep and asked me to come back another time. Time spent with patient discussing advance care planning, 15 minutes Plan: No further recommendations. Will assist with advance care planning'
[2016-07-19] MEDS: diltiaZEM IVPB 100mg in NS 100 ML IV PRN (12:05)
[2016-07-19] MEDS: Albuterol-Ipratrop 3 mg / 0.5 (3 ml) UD IH PRN ×3 (13:55→21:52)
[2016-07-19] MEDS: Digoxin 125 mcg (0.125 mg) Tab PO SCH (14:12)
--- NOTE | 2016-07-19 14:35 | CON ---
DATE: 07/19/2016 REFERRING PHYSICIAN: Dr. Axel Villagomez. REASON FOR CONSULT: Sleep apnea syndrome, chronic lung disease, atrial fibrillation with rapid ventr icular response. HISTORY OF PRESENT ILLNESS: This is a 55-year-old gentleman who is noncompliant with the medication and followup, as well as CPAP/BiPAP, comes back to ER with a complaint of shortness of breath, palpit ation, found to be in atrial fibrillation with rapid ventricular response. He was started back on hi s medications. At present, he is lying in the bed, does have shortness of breath, mild cough, no spu misha production, no nausea, no vomiting, no diarrhea. Does have leg swelling. PAST MEDICAL HISTORY: Chronic obstructive lung disease, obstructive sleep apnea syndrome, atrial fib rillation with rapid ventricular response, cardiomyopathy, diabetes, hypertension, obesity. ALLERGIES: None known. SOCIAL HISTORY: He has history of smoking and alcohol use. FAMILY HISTORY: No cardiopulmonary disease reported. Father at age of 66 and mother at ag e of 52. MEDICATIONS: He is using glipizide 4 mg daily, Ativan 2 mg a.m. and at bedtime, Calan 80 mg 3 times a day, Cardizem 5 mg IV drip, Coumadin 7.5 mg will be given today, trazodone 200 mg at bedtime, DuoNe b q. 6 hours p.r.n., metformin 1000 mg twice a day, insulin coverage, potassium 20 mEq given, digoxin 0.125 mg daily, Lasix 40 mg twice a day, Levemir 40 units subQ twice a day, Lipitor 40 mg daily, Yesenia enox 100 mg subQ twice a day, Singulair 10 mg daily, Zestril 20 mg daily. REVIEW OF SYSTEMS: No headache, no rhinitis. Admitted to have cough and shortness of breath. No ch est pain. Had palpitation, nausea, no vomiting, no abdominal pain, no dysuria. Does have leg swelli ng. PHYSICAL EXAMINATION: GENERAL: Lying in the bed, mild distress with shortness of breath. VITAL SIGNS: Temp is 98, heart rate is 92, respiratory rate is 20, blood pressure 128/80, pulse ox 9 9% on 3 liters nasal cannula. HEENT: Moist mucous membranes. Crowded airway. Mallampati score is 4. NECK: Short, thick neck. LUNGS: Has crackles at the bases, prolonged expiratory phase. HEART: Irregularly irregular, tachycardic. ABDOMEN: Obese, soft, and nontender. EXTREMITIES: Does have edema. NEUROLOGIC: Awake, alert, follows simple commands. LABORATORY DATA: Shows hemoglobin 12.4, hematocrit 37.6, WBC 9.8, platelet is 199. INR 1.22, PTT is 22. Sodium 137, potassium 3.9, chloride 100, bicarbonate 28, BUN 10, creatinine 0.8, glucose 198, c alcium 9.1, magnesium 1.5, AST 15, ALT 32, alkaline phosphatase is 70. Troponin 0.08. Albumin is 3. 7. Chest x-ray was done and shows cardiomegaly with mild pulmonary venous congestion. IMPRESSION AND PLAN: Recurrent atrial fibrillation with rapid ventricular response, cardiomyopathy, coronary artery disease, chronic obstructive lung disease, obstructive sleep apnea syndrome, morbid o besity, hypertension, diabetes, dyslipidemia, thromboembolic disease, status post left lower extremit y thrombectomy. I had a long discussion with the patient about his being noncompliant and risk of th romboembolic disease including stroke and . Also spoke about cardiac arrhythmia and its consequ ences. Urged him to use BiPAP. We will order it. Will get him out of bed to chair. Physical thera py. Document pulse ox. Continue beta rahat, Cardizem, and diuretics. Follow up labs in the [facility]. We will follow with you. Tia Godinez MD cc: [phone] TT: 07/19/2016 14:35:03 Confirmation # [id number] Dictation # [id number] jie
[2016-07-19] MEDS ORDERED: Digoxin 500 mcg/2ml (0.5 mg/2ml) Inj IVP ONE (17:00)
--- NOTE | 2016-07-19 19:43 | CP.PCM.PN ---
Subjective - Date & Time of Evaluation Date of Evaluation: 07/19/16 Time of Evaluation: 19:38 - Subjective Subjective: Patient was seen at bedside because he complained of headache. BP is 109/67 Temp:97.4*F. Complains of mild head ache, frontal , no radiation, no other complaints. Has no other complaints. Denies nausea, vomiting, dizziness, paraesthesia. Medical record was reviewed. This 55 year old white male was admitted for complaint of palpitations. Has PMH of atrial fibrillation, obesity , DM II, HTN, dyslipidemia, COPD, CHF. Objective - Vital Signs/Intake and Output Vital Signs (last 24 hours): Temp Pulse Resp BP Pulse Ox 97.4 F L 90 20 109/67 99 07/19/16 17:33 07/19/16 18:00 07/19/16 17:33 07/19/16 17:33 07/19/16 06:00 Intake and Output: 07/19/16 07/20/16 18:59 06:59 Intake Total 840 Output Total 700 Balance 140 - Medications Medications: Current Medications Albuterol/Ipratropium (Duoneb 3 Mg/0.5 Mg (3 Ml) Ud) 3 ml IH [id number] PRN PRN Reason: sob/wheezing Last Admin: 07/19/16 13:55 Dose: 3 ml Atenolol (Tenormin) 12.5 mg PO BID [facility] Last Admin: 07/19/16 17:21 Dose: 12.5 mg Atorvastatin Calcium (Lipitor) 40 mg PO DIN [facility] Last Admin: 07/19/16 17:21 Dose: 40 mg Digoxin (Lanoxin) 0.125 mg PO 1400 [facility] Last Admin: 07/19/16 14:12 Dose: 0.125 mg Enoxaparin Sodium (Lovenox) 100 mg SC Q12H [facility] PRN Reason: Protocol Last Admin: 07/19/16 09:29 Dose: 100 mg Furosemide (Lasix) 40 mg PO Q8 [facility] Last Admin: 07/19/16 14:12 Dose: 40 mg Glimepiride (Amaryl) 4 mg PO DAILY [facility] Last Admin: 07/19/16 09:27 Dose: 4 mg Insulin Detemir (Levemir) 40 unit SC BID [facility] Last Admin: 07/19/16 17:24 Dose: 40 unit Insulin Human Regular (Humulin R Med) 0 units SC ACHS [facility] PRN Reason: Protocol Last Admin: 07/19/16 17:24 Dose: 1 units Lorazepam (Ativan) 2 mg PO AMHS [facility] PRN Reason: Protocol Last Admin: 07/19/16 09:27 Dose: 2 mg Metformin HCl (Glucophage) 1,000 mg PO BID [facility] Last Admin: 07/19/16 17:21 Dose: 1,000 mg Montelukast Sodium (Singulair) 10 mg PO DAILY [facility] Last Admin: 07/19/16 09:27 Dose: 10 mg Potassium Chloride (K-Dur 20 Meq Er Tab) 20 meq PO DAILY [facility] Last Admin: 07/19/16 09:28 Dose: 20 meq Trazodone HCl (Desyrel) 200 mg PO HS [facility] Verapamil HCl (Calan Tab) 80 mg PO TID [facility] Last Admin: 07/19/16 17:31 Dose: 80 mg Warfarin Sodium (Coumadin) 7.5 mg PO 1800 [facility] PRN Reason: Protocol Warfarin Sodium (Coumadin) 10 mg PO 1800 [facility] PRN Reason: Protocol Stop: 07/20/16 23:59 Last Admin: 07/19/16 17:22 Dose: 10 mg - Labs Labs: 07/19/16 08:00 07/19/16 08:00 PT 13.2 Seconds (9.9-11.8) H 07/18/16 23:00 INR 1.22 (0.93-1.08) H 07/18/16 23:00 APTT 25.2 Seconds (23.7-30.8) 07/18/16 23:00 - Constitutional Appears: Well, No Acute Distress - Head Exam Head Exam: ATRAUMATIC, NORMAL INSPECTION, NORMOCEPHALIC - Eye Exam Eye Exam: Normal appearance - ENT Exam ENT Exam: Normal External Ear Exam - Neck Exam Neck Exam: Normal Inspection - Respiratory Exam Respiratory Exam: NORMAL BREATHING PATTERN - Cardiovascular Exam Cardiovascular Exam: absent: JVD - GI/Abdominal Exam GI & Abdominal Exam: absent: Distended - Rectal Exam Rectal Exam: Deferred - Extremities Exam Extremities Exam: Normal Inspection - Back Exam Back Exam: NORMAL INSPECTION - Neurological Exam Neurological Exam: Alert, CN II-XII Intact, Oriented x3 - Psychiatric Exam Psychiatric exam: Normal Affect, Normal Mood - Skin Skin Exam: Normal Color Assessment and Plan - Assessment and Plan (Free Text) Assessment: A/P:Head ache -episodic. Obesity. HTN. CHF. COPD. Atrial fibrillatiojn. Palpitation. Tylenol 650 mg PO x 1. Continue present management.
[2016-07-19] MEDS: Magnesium Oxide 400 mg Tab UD PO SCH (19:49)
--- NOTE | 2016-07-19 21:06 | CON ---
DATE: 07/19/2016 HISTORY OF PRESENT ILLNESS: Shortly, the patient is a 55-year-old male with past medical h istory of CHF, hypertension, diabetes, COPD, hyperlipidemia, atrial fibrillation, neuropathy. The randi barba was admitted on the medical floor for shortness of breath associated with palpitation. The chapis leach also has history of mood disorder, most likely bipolar spectrum disorder. 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 This life underwriter is very familiar with this patient. The farida ent was seen and examined today. Most recent admission on the medical floor was on 07/14. The patimadina nt was signed against medical advice. The patient history, the patient has impulsive behavior, histo ry of delirium as well as agitation. At the same time, the patient presents very well today. The randi barba denied being depressed. The patient was alert and oriented. The patient seems to have no psyc hotic symptoms. No confusion. The patient was able to provide a decent history. The patient denied being depressed, denied thoughts of harming himself or others, denied intent or plan. No psychotic symptoms were elicited or reported. The patient denied being anxious. The patient presented very we ll to compare with the previous admissions. VITAL SIGNS: Reviewed. The patient is tachycardic 100, temperature 97.4, blood pressure 109/64, res pirations 20. MEDICATIONS: Reviewed. DuoNeb, Lipitor, digoxin, Cardizem, Lovenox, Lasix, Amaryl, Levemir, Humulin , lisinopril, Ativan 2 mg in the morning time and at nighttime, Glucophage, Singulair, K-Dur, trazodo ne 200 mg at the nighttime which was prescribed by Dr. Villagomez as outpatient, verapamil, Warfarin, a nd Coumadin. LABORATORY DATA: Reviewed. Digoxin . The rest within normal limits. MENTAL STATUS EXAMINATION: The patient presented to be alert and oriented, pleasant and cooperative. Fair eye contact, remembered this life underwriter by name. Mood described as, "I'm okay." Affect was const ricted, but reactive; mood congruent. Thought process was coherent and goal directed. Thought vikram nt: The patient denied visual, auditory, tactile hallucinations. Denied paranoid ideations. The randi barba does not present to be psychotic or paranoid. Insight and judgment are fair. Impulses are wel l controlled. IMPRESSION: As per history, the patient has history of bipolar disorder. Rule out mood disorder due to general medical condition. The patient has multiple medical issues. See above. PLAN: Continue current management. Continue current medication. The patient seems to be at his bas flash, denied being depressed, denied thoughts of harming himself or others. The patient participate s in treatment plan, pleasant and cooperative, compliant with medication. At present moment, this wr iter will sign off from this case. Should you have any questions, give me a call back. Thank you very much for letting me participate in care of your patient. Eli Garcia MD cc: [phone] TT: 07/19/2016 21:05:34 Confirmation # [id number] Dictation # [id number]
--- NOTE | 2016-07-19 21:38 | CON ---
DATE: 07/19/2016 SERVICE: Cardiology. REASON FOR CONSULTATION: Atrial fibrillation with rapid ventricular rate, cardiac evaluation. BRIEF CLINICAL HISTORY: This is a 55-year-old morbidly obese male with multiple admissions with deco mpensated congestive heart failure, AFib with rapid ventricular rate, noncompliance with medication, who recently discharged 2-3 days ago, came back again with AFib with rapid ventricular rate. Arrange ment have been made to see Dr. Bonilla at [facility] for radiofrequency ablation of AFib. The patient did not go. Very noncompliant patient. Active tobacco and alcohol abuse. Denies any chest pain, shortness of breath, palpitation. PAST MEDICAL HISTORY: Significant for morbid obesity, chronic atrial fibrillation, failed CORA cardio version, history of cardiac catheterization, possibly 3 times, or at least 2 documented, nonobstructi ve coronary artery disease, hypertension, noncompliance with medication, active tobacco abuse, active alcohol abuse, history of mitral regurgitation, history of tricuspid regurgitation. Previous cardiac workup as follows: The patient had a cardiac catheterization, definitely documented 2 times, 8 years ago and 2 years ago, last one 11/05/2014, normal coronaries, ejection fraction 55%, EDP was in the range of 30. Hypertension. Medical treatment recommended. Emphasis made on weight r eduction, compliance with the medication and complete abstinence of alcohol and tobacco abuse. Arran gements are also made for radiofrequency ablation at [facility] with Dr. Bonilla, but patient d id not go there. The patient was initially on Pradaxa, later on switched to Coumadin. Last echo luis ed 06/10/2015 shows ejection fraction 45%, concentric left ventricular hypertrophy, global hypokinesis , moderate mitral regurgitation, moderate tricuspid regurg, RV systolic pressure 20. SOCIAL HISTORY: Heavy alcohol abuse. PHYSICAL EXAMINATION: VITAL SIGNS: Temperature afebrile, heart rate 92, blood pressure 90/____. HEENT: PERRLA. Extraocular muscles intact. NECK: Supple. No carotid bruits. No thyromegaly. CHEST: Clear to auscultation. HEART: S1, S2 regular. ABDOMEN: Soft. EXTREMITIES: Clubbing and cyanosis negative. BLOOD WORKUP: As follows: WBC ____, hemoglobin ____, hematocrit 37.6, platelet count 199. Chemistr y shows sodium ____, potassium 3.7, chloride 100, carbon dioxide 28, anion gap of 13, BUN 10, creatin ine 0.8, blood sugar 215. BNP ____. IMPRESSION: Decompensated congestive heart failure, acute on chronic systolic dysfunction, mitral re gurgitation, tricuspid regurgitation, chronic atrial fibrillation, morbid obesity, increased body mas s index, noncompliance with medication, active tobacco abuse, active alcohol abuse, status post cardi ac catheterization, normal coronaries in 2015. RECOMMENDATION: We will start verapamil 80 mg 3 times a day. We will discontinue Cardizem. Will gi ve an extra dose of digoxin. We will hold lisinopril because of low blood pressure and push more rat e limiting calcium channel rahat to control the heart rate. Continue digoxin, continue atorvastati n. We will add low dose of beta rahat. The patient's INR is subtherapeutic, has history of noncom pliance with the medication. We will follow with you. Emphasis made on compliance and followup with Dr. Bonilla. We will give 10 mg of Coumadin today and 10 tomorrow, and then 7.5 from day after tomor row. Thank you, Dr. Villagomez, for providing the opportunity in taking care of this patient. Also will giv e low dose of beta-rahat. Tia Rajan MD cc: [id number] TT: 07/19/2016 21:37:27 Confirmation # [id number] Dictation # [id number] jie
--- NOTE | 2016-07-19 21:50 | CARD ---
APPROVED REPORT EKG Measurement Heart [id number] <Conclusion> Atrial fibrillation with rapid ventricular response with premature ventricular or aberrantly conducted complexes Low voltage QRS Cannot rule out Anterior infarct, age undetermined Abnormal ECG
--- NOTE | 2016-07-20 02:47 | CP.PCM.PN ---
Subjective - Date & Time of Evaluation Date of Evaluation: 07/20/16 Time of Evaluation: 02:45 - Subjective Subjective: S:Requests a sleeping pill. Has no other acute symptoms now. Pertinent medical record was reviewed. O:VSS. Not in distress. Last Vital Signs 3 Temp 98.4 F 07/20/16 00:01 Pulse 85 07/20/16 00:01 Resp 22 07/20/16 00:01 BP 110/72 07/20/16 00:01 Pulse Ox 99 07/19/16 06:00 LUNGS:Normal breathing pattern. NEURO:Normal speech. A:Adjustment insomnia. P;Benadryl 50 mg PO x 1. Objective - Vital Signs/Intake and Output Vital Signs (last 24 hours): Temp Pulse Resp BP Pulse Ox 98.4 F 85 22 110/72 99 07/20/16 00:01 07/20/16 00:01 07/20/16 00:01 07/20/16 00:01 07/19/16 06:00 Intake and Output: 07/19/16 07/20/16 18:59 06:59 Intake Total 840 Output Total 700 Balance 140 - Medications Medications: Current Medications Albuterol/Ipratropium (Duoneb 3 Mg/0.5 Mg (3 Ml) Ud) 3 ml IH [id number] PRN PRN Reason: sob/wheezing Last Admin: 07/19/16 21:52 Dose: 3 ml Atenolol (Tenormin) 12.5 mg PO BID [facility] Last Admin: 07/19/16 17:21 Dose: 12.5 mg Atorvastatin Calcium (Lipitor) 40 mg PO DIN [facility] Last Admin: 07/19/16 17:21 Dose: 40 mg Digoxin (Lanoxin) 0.125 mg PO 1400 [facility] Last Admin: 07/19/16 14:12 Dose: 0.125 mg Enoxaparin Sodium (Lovenox) 100 mg SC Q12H [facility] PRN Reason: Protocol Last Admin: 07/19/16 20:03 Dose: 100 mg Furosemide (Lasix) 40 mg PO Q8 [facility] Last Admin: 07/19/16 22:57 Dose: Not Given Glimepiride (Amaryl) 4 mg PO DAILY [facility] Last Admin: 07/19/16 09:27 Dose: 4 mg Insulin Detemir (Levemir) 40 unit SC BID [facility] Last Admin: 07/19/16 17:24 Dose: 40 unit Insulin Human Regular (Humulin R Med) 0 units SC ACHS [facility] PRN Reason: Protocol Last Admin: 07/19/16 22:17 Dose: Not Given Lorazepam (Ativan) 2 mg PO AMHS [facility] PRN Reason: Protocol Last Admin: 07/19/16 22:51 Dose: 2 mg Magnesium Oxide (Mag-Ox) 400 mg PO BID [facility] Stop: 07/21/16 19:46 Last Admin: 07/19/16 19:49 Dose: 400 mg Metformin HCl (Glucophage) 1,000 mg PO BID [facility] Last Admin: 07/19/16 17:21 Dose: 1,000 mg Montelukast Sodium (Singulair) 10 mg PO DAILY [facility] Last Admin: 07/19/16 09:27 Dose: 10 mg Potassium Chloride (K-Dur 20 Meq Er Tab) 20 meq PO DAILY [facility] Last Admin: 07/19/16 09:28 Dose: 20 meq Trazodone HCl (Desyrel) 200 mg PO HS [facility] Last Admin: 07/19/16 21:12 Dose: 200 mg Verapamil HCl (Calan Tab) 80 mg PO TID [facility] Last Admin: 07/19/16 17:31 Dose: 80 mg Warfarin Sodium (Coumadin) 7.5 mg PO 1800 [facility] PRN Reason: Protocol Warfarin Sodium (Coumadin) 10 mg PO 1800 [facility] PRN Reason: Protocol Stop: 07/20/16 23:59 Last Admin: 07/19/16 17:22 Dose: 10 mg - Labs Labs: 07/19/16 08:00 07/19/16 08:00 PT 13.2 Seconds (9.9-11.8) H 07/18/16 23:00 INR 1.22 (0.93-1.08) H 07/18/16 23:00 APTT 25.2 Seconds (23.7-30.8) 07/18/16 23:00
[2016-07-20 05:30] VITALS: TEMP 98.2; O2SAT 96
[2016-07-20 07:56] LABS: ADD MANUAL DIFF? NO
[2016-07-20 08:04] LABS: BASO # 0.06 K/mm3 (0.0-2.0); BASO % 0.5 % (0.0-3.0); EOS # 0.2 (0.0-0.7); EOS % 1.6 % (1.5-5.0); GRAN # 8.89 (1.4-6.5); GRAN % 76.4 % (50.0-68.0); HEMATOCRIT 37.6 % (42.0-52.0); LYMPH # 1.9 (1.2-3.4); LYMPH % 16.2 % (22.0-35.0); MEAN CELL VOLUME 86.4 fL (80.0-105.0); MEAN CORPUSCULAR HGB CONC 32.4 g/dl (31.0-37.0); MEAN PLATELET VOLUME 10.4 fl (7.0-11.0); MONO # 0.6 (0.1-0.6); MONO % 5.3 % (1.0-6.0); PLATELET COUNT 203 10^3/uL (120.0-450.0); RED CELL DISTRIBUTION WIDTH 16.3 % (11.5-14.5); WHITE BLOOD COUNT 11.7 10^3/ul (4.5-11.0)
[2016-07-20 08:09] LABS: INR 1.24 (0.93-1.08)
[2016-07-20] MEDS: Insulin Reg-MEDIUM-Coverage SC SCH ×2 (08:13→11:29)
[2016-07-20 08:17] LABS: ALB/GLOB RATIO 1.2 (1.1-1.8); ALKALINE PHOSPHATASE 65 U/L (38-133); ALT/SGPT 30 U/L (7-56); AST/SGOT 19 U/L (15-59); BILIRUBIN,TOTAL 0.9 mg/dL (0.2-1.3); BLOOD UREA NITROGEN 13 mg/dL (7-21); CARBON DIOXIDE 31 mmol/L (21-33); CHLORIDE 99 mmol/L (98-107); GFR AFRICAN-AMERICAN > 60; GLUCOSE,RANDOM 62 mg/dL (70-110); MAGNESIUM 1.4 mg/dL (1.7-2.2); PHOSPHOROUS 3.9 mg/dL (2.5-4.5); POTASSIUM 3.8 mmol/L (3.6-5.0); SODIUM 138 mmol/L (132-148); TOTAL PROTEIN 6.7 g/dL (5.8-8.3)
[2016-07-20] MEDS: Potassium Chloride 20 mEq ER Tab PO SCH (09:07)
[2016-07-20] MEDS: Magnesium Oxide 400 mg Tab UD PO SCH ×2 (09:08→13:06)
[2016-07-20] MEDS: Enoxaparin 100 mg Syringe SC SCH (09:10)
[2016-07-20] MEDS: Insulin Detemir 100 units/ml Vial (Levemir) SC SCH (09:10)
--- NOTE | 2016-07-20 10:46 | DS ---
SUBJECTIVE: The patient has no complaints of any chest pain, no shortness of breath, no headaches. He initially came to the hospital with rapid AFib. This has improved. He was placed on IV Cardizem. The patient is going to be discharged home to follow up with EPS as an outpatient, matteo Storm h he has not done yet. PHYSICAL EXAMINATION: VITAL SIGNS: Temperature is 98.2, pulse of 84. Blood pressure is 119/62, respirations 22. GENERAL: The patient is comfortable, in no acute distress. HEENT: Anicteric sclerae. Moist mucosa. NECK: No JVD or adenopathy. CARDIAC: S1/S2. No murmurs. No rubs. Regular. RESPIRATORY: Clear to auscultation bilaterally. No wheezes, rales, or rhonchi. Good air entry. ABDOMEN: Bowel sounds are positive, soft, nontender, and nondistended. EXTREMITIES: No edema. Has 1+ pulses. LABORATORY DATA: White count of 9.8, hemoglobin 12.4. ASSESSMENT: 1. Atrial fibrillation with rapid rate, on Coumadin. 2. Diabetes type 2. 3. Diabetic neuropathy. 4. Hypertension. 5. Chronic obstructive pulmonary disease. 6. Dyslipidemia. 7. Congestive heart failure secondary to diastolic dysfunction. 8. Morbid obesity with a body mass index of 39. 9. Left leg ischemia status post thrombectomy. PLAN: The patient is comfortable. He has his rate that is controlled. I will speak to Dr. Satinder ramirez ut discharging the patient. The patient is on Amaryl for diabetes. He is going to be on verapamil f or hypertension. He was given 10 mg of Coumadin yesterday. He says he takes 8 mg at home. We will place him on 8 mg as an outpatient. He is on metformin for his diabetes as well. He is going to fol low up for his INR. He is on Lasix daily. He is on Lipitor for dyslipidemia. He is on Singulair. CONDITION: Stable. ACTIVITIES: Increase as tolerated. xAel Villagomez MD cc: [id number] TT: 07/20/2016 10:46:06 jn
--- NOTE | 2016-07-20 11:25 | PN ---
DATE: 07/20/2016 REFERRING PHYSICIAN: Dr. Axel Villagomez. SUBJECTIVE: He is out of bed to chair. Night was unremarkable, not very compliant with CPAP, does n ot like the facemask. Breathing is better though. No nausea, no vomiting, no diarrhea. Does have s ome leg swelling. OBJECTIVE: GENERAL: No acute distress. VITAL SIGNS: Temp is 98, heart rate is 104, respiratory rate is 20, blood pressure 147/85 and pulse ox is 96% on room air. HEENT: Moist mucous membrane. Crowded airway. Mallampati score is 4. NECK: Short, thick neck. LUNGS: Have a few crackles. HEART: S1 and S2 irregular. ABDOMEN: Soft, nontender. No organomegaly. EXTREMITIES: Do have edema. NEUROLOGIC: Awake, alert, follows simple command. MEDICATIONS: He is Amaryl 4 mg daily, Ativan 2 mg a.m. and at bedtime, Calan 80 mg 3 times a day, Co umadin 10 mg given last night, trazodone 200 mg at bedtime, DuoNeb q. 4 hours p.r.n., metformin is 10 00 mg twice a day, insulin coverage, potassium 20 mEq daily, digoxin 0.125 mg daily, Lasix 40 mg q. 8 hours, Levemir 40 units subQ twice a day, Lipitor 40 mg daily, Lovenox 100 mg q. 12 hours, mag oxide ____ mg daily, Tenormin 25 mg twice a day. LABORATORY DATA: Shows hemoglobin 12.2, hematocrit 37.6, WBC 11.7, platelet is 203. INR 1.24. Sodi um 138, potassium 3.8, chloride 99, bicarbonate 31, BUN 13, creatinine 1.0, glucose is 62, calcium 9. 0, magnesium 1.4. AST is 19, ALT 30, alk phos is 65, albumin is 3.7. IMPRESSION AND PLAN: Recurrent atrial fibrillation with rapid ventricular response, cardiomyopathy, coronary artery disease, chronic obstructive lung disease, obstructive sleep apnea syndrome, morbid o besity, hypertension, diabetes, hyperlipidemia, thromboembolic disease, status post left lower extrem ity thrombectomy. I spoke to the patient in detail, recommended to get outpatient attended [facility] to get him home CPAP/BiPAP with a nasal pillow mask, agreed with the plan, encouraged BiPAP while he is here. Bronchodilator. Continue diuretics, beta rahat. Fall precaution. Thank you and we w ill follow with you. Tia Godinez MD cc: [phone] TT: 07/20/2016 11:24:36 Confirmation # [id number] Dictation # [id number] tn
[2016-07-20 12:04] VITALS: BP 112/70; RESP 19
[2016-07-20] MEDS: Digoxin 125 mcg (0.125 mg) Tab PO SCH (13:06)
[2016-07-20 13:08] VITALS: PULSE 110; PULSE 112
--- NOTE | 2016-07-20 14:51 | PN ---
DATE: 07/20/2016 REASON FOR CONSULTATION AND FOLLOWUP: Atrial fibrillation with rapid rate, now rate well controlled. BRIEF CLINICAL HISTORY: This is a 55-year-old morbidly obese male with a past medical history signif icant for atrial fibrillation, noncompliance with medication, multiple admissions with AFib with rapi d ventricular rate, subtherapeutic INR. Multiple times, arrangements has been made to go to see Dr. Bonilla for radiofrequency ablation evaluation, but patient did not go. Admitted here with AFib with rapid ventricular rate, now rate is well controlled. Denies any chest pain, shortness of breath, any palpitation. PHYSICAL EXAMINATION: VITAL SIGNS: Temperature afebrile, heart rate 60, blood pressure 146/85. HEENT: PERRLA. Extraocular muscles intact. NECK: Supple. No carotid bruits. No thyromegaly. CHEST: Clear to auscultation. HEART: S1, S2 regular. ABDOMEN: Soft. EXTREMITIES: Clubbing, cyanosis negative. BLOOD WORKUP: WBC 11.7, hemoglobin 12.2, hematocrit 37.6, platelet count 203. Chemistry shows sodiu m 130, potassium 3. , chloride 99, carbon dioxide 31, anion gap of 12, BUN 13, creatinine 1.0. IMPRESSION: Atrial fibrillation with rapid ventricular rate, now is well controlled, morbid obesity, hypertension, status post cardiac catheterization, normal coronaries twice, morbid obesity. Last ec ho shows ejection fraction of 45%, concentric left ventricular hypertrophy, right ventricular systoli c pressure 20. INR 1.24. RECOMMENDATION: Continue digoxin, continue verapamil, continue atenolol, continue anticoagulation. Emphasis made to patient, upon discharge, patient goes to see Dr. Bonilla for radiofrequency ablation. Thank you Dr. Villagomez, for providing us the opportunity in taking care of the patient. Tia Rajan MD cc:Axel Villagomez MD [id number] TT: 07/20/2016 14:50:41 Confirmation # [id number] Dictation # [id number]
== END 2016-07-20 13:22 | disposition home or self-care (01) | DRG 308 ==
LOC: ED 21:41 → ERH 23:58 → 2RSO 07-19 02:10
PROVIDERS: ADMIT Internal Medicine Nephrology; ATTEND Internal Medicine Nephrology
PROC: 3E0F7GC Introduction of Other Therapeutic Substance into Respiratory Tract, Via Natural or Artificial Opening (ICD-10-PCS; principal; 2016-07-19)
DX: I48.2 Chronic atrial fibrillation (principal); I50.43 Acute on chronic combined systolic (congestive) and diastolic (congestive) heart failure; E11.40 Type 2 diabetes mellitus with diabetic neuropathy, unspecified; I42.9 Cardiomyopathy, unspecified; I08.1 Rheumatic disorders of both mitral and tricuspid valves; E66.01 Morbid (severe) obesity due to excess calories; I11.0 Hypertensive heart disease with heart failure; J44.9 Chronic obstructive pulmonary disease, unspecified; E78.5 Hyperlipidemia, unspecified; I25.10 Atherosclerotic heart disease of native coronary artery without angina pectoris; G47.33 Obstructive sleep apnea (adult) (pediatric); F31.9 Bipolar disorder, unspecified; F10.10 Alcohol abuse, uncomplicated; R51 Headache; F51.02 Adjustment insomnia; Z68.39 Body mass index [BMI] 39.0-39.9, adult; Z79.01 Long term (current) use of anticoagulants; Z91.14 Patient's other noncompliance with medication regimen; Z91.19 Patient's noncompliance with other medical treatment and regimen; Z87.891 Personal history of nicotine dependence

== ENCOUNTER 2016-07-25 02:29 | Inpatient (IN) | payer MEDICARE, OTHER ==
[2016-07-25 02:29] VITALS: BMI 39.5
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
[2016-07-25 04:02] LABS: HEMATOCRIT 44.2 % (42.0-52.0); MEAN CELL VOLUME 87.4 fL (80.0-105.0); MEAN CORPUSCULAR HEMOGLOBIN 28.9 pg (25.0-35.0); RED CELL DISTRIBUTION WIDTH 17.1 % (11.5-14.5); WHITE BLOOD COUNT 10.6 10^3/ul (4.5-11.0)
[2016-07-25 04:05] LABS: INR 1.49 (0.93-1.08); PARTIAL THROMBOPLASTIN TIME 25.7 Seconds (23.7-30.8)
[2016-07-25 04:13] LABS: ALB/GLOB RATIO 1.2 (1.1-1.8); ALKALINE PHOSPHATASE 67 U/L (38-133); ALT/SGPT 24 U/L (7-56); AST/SGOT 32 U/L (15-59); BLOOD UREA NITROGEN 13 mg/dL (7-21); CARBON DIOXIDE 26 mmol/L (21-33); CHLORIDE 101 mmol/L (98-107); GFR AFRICAN-AMERICAN > 60; GLUCOSE,RANDOM 249 mg/dL (70-110); SODIUM 140 mmol/L (132-148); TOTAL PROTEIN 7.6 g/dL (5.8-8.3)
[2016-07-25 04:50] LABS: POTASSIUM 5.1 mmol/L (3.6-5.0)
[2016-07-25] MEDS ORDERED: Insulin Detemir 100 units/ml Vial (Levemir) SC SCH ×2 (07:45→10:00)
[2016-07-25 07:52] LABS: ALB/GLOB RATIO 1.2 (1.1-1.8); ALKALINE PHOSPHATASE 69 U/L (38-133); ALT/SGPT 38 U/L (7-56); AST/SGOT 20 U/L (15-59); BILIRUBIN,TOTAL 0.8 mg/dL (0.2-1.3); BLOOD UREA NITROGEN 13 mg/dL (7-21); CALCIUM 8.8 mg/dL (8.4-10.5); CARBON DIOXIDE 29 mmol/L (21-33); CHLORIDE 100 mmol/L (98-107); GFR AFRICAN-AMERICAN > 60; GLUCOSE,RANDOM 278 mg/dL (70-110); POTASSIUM 4.5 mmol/L (3.6-5.0); SODIUM 137 mmol/L (132-148); TOTAL PROTEIN 6.7 g/dL (5.8-8.3)
[2016-07-25] MEDS ORDERED: Insulin Regular 1 UNITS/0.01 ML ML ONE ×2 (07:57→12:37)
[2016-07-25] MEDS: Insulin Reg-HIGH-Coverage SC SCH ×4 (07:58→21:42)
--- NOTE | 2016-07-25 07:58 | RAD ---
HISTORY: sob COMPARISON: Comparison is made to the previous study dated 07/18/2016 FINDINGS: LUNGS: Suboptimal study due to portable technique and patient's body habitus. [id number] pulmonary vascular congestion is noted. PLEURA: The right costophrenic angle is not including in this study. However there is suspicious for right pleural effusion. CARDIOVASCULAR: Cardiomegaly is again noted. OSSEOUS STRUCTURES: No significant abnormalities. VISUALIZED UPPER ABDOMEN: Normal. OTHER FINDINGS: None. IMPRESSION: Moderate pulmonary vascular congestion, cardiomegaly and possible right pleural effusion. Correlate clinically for CHF.
[2016-07-25] MEDS: Insulin Detemir 100 units/ml Vial (Levemir) SC SCH ×2 (07:59→16:57)
--- NOTE | 2016-07-25 09:53 | CARD ---
APPROVED REPORT EKG Measurement Heart [id number] <Conclusion> Atrial fibrillation with rapid ventricular response Low voltage QRS Nonspecific T wave abnormality Abnormal ECG
--- NOTE | 2016-07-25 12:30 | CON ---
DATE: 07/25/2016 REASON FOR CONSULTATION: Cardiac evaluation, decompensated congestive heart failure, AFib, chronic n onobstructive coronary artery disease. BRIEF CLINICAL HISTORY: This is a 56-year-old obese male, body mass index of 41.1 kg/m2, noncomplian ce with the medication, active tobacco and alcohol abuse, came in with complaint of shortness of salome th. This is one of the multiple admissions with past medical history significant for hypertension, h yperlipidemia, obesity, status post cardiac catheterization 3 times, nonobstructive coronary artery d isease. Scheduled for radiofrequency ablation for AFib but patient did not go as of today. Usually comes with shortness of breath and subtherapeutic INR. Very noncompliant with medication. Active t obacco and alcohol abuse. PAST MEDICAL HISTORY: Significant for chronic atrial fibrillation, obesity, failed CORA cardioversion ; history of cardiac catheterization 3 times possibly, definitely 2 times, nonobstructive coronary ar mahendra disease, mitral regurgitation, tricuspid regurgitation. PREVIOUS CARDIAC WORKUP: The patient had a cardiac catheterization definitely documented twice, poss ibly 3 times. Last catheterization most recent on 11/05/2014: Normal coronaries, ejection fraction 5%, EDP was in the range of 30. Medical treatment recommended. Emphasis made on weight reduction, c ompliance with the medication, complete cessation of smoking, complete cessation of alcohol abuse. A rrangement has been made for radiofrequency ablation at [facility] with Dr. Bonilla, but patien t did not go. Keeps on making excuse that his telephone broke and that is why he could not go there. Last echo dated 06/10/2015 shows ejection fraction 45%, concentric left ventricular hypertrophy, gl obal hypokinesis, moderate mitral regurgitation, moderate tricuspid regurgitation, RV systolic pressu re 20. SOCIAL HISTORY: Active tobacco and heavy alcohol abuse. CURRENT MEDICATIONS: The patient is supposed to take Coumadin, trazodone, Singulair, metoprolol, met formin, lisinopril, lorazepam, insulin, glimepiride, Lasix, digoxin, atorvastatin. REVIEW OF SYSTEMS: As per HPI. PHYSICAL EXAMINATION: VITAL SIGNS: Temperature afebrile, heart rate 108, blood pressure 115/58. HEENT: PERRLA. Extraocular muscles intact. NECK: Supple. No carotid bruits. No thyromegaly. CHEST: Clear to auscultation. HEART: S1, S2 irregular. ABDOMEN: Soft. EXTREMITIES: Clubbing and cyanosis negative. BLOOD WORKUP: WBC 10.6, hemoglobin 14.6, hematocrit 44.2, platelet count 220. Chemistry shows sodiu m 137, potassium 4.____, chloride 100, carbon dioxide ____, anion gap of 13, BUN 13, creatinine 1.0. BNP 3110. 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 RECOMMENDATION: Continue diuretics IV. Start verapamil. Continue beta rahat. Continue digoxin. Give Lovenox as the patient's INR gets therapeutic. Will follow with you. Thank you, Dr. Villagomez, for providing the opportunity in taking care of this patient. Emphasis made again for weight reduction, complete cessation of smoking, complete abstinence of alcohol, and follo w up at [facility] for radiofrequency ablation for atrial fibrillation. Thank you, Dr. Villagomez, for providing the opportunity in taking care of the patient. Tia Rajan MD cc:Axel Villagomez MD [id number] TT: 07/25/2016 12:29:34 Confirmation # [id number] Dictation # [id number] mn
[2016-07-25] MEDS: Enoxaparin 120 mg Syringe SC SCH (12:39)
[2016-07-25] MEDS: Digoxin 125 mcg (0.125 mg) Tab PO SCH (14:20)
--- NOTE | 2016-07-25 15:43 | HP ---
CHIEF COMPLAINT AND HISTORY OF PRESENT ILLNESS: This is a 56-year-old male who is coming into the [facility] with complaints of shortness of breath. He says that he was more short of breath. He also is complaining of palpitations. He has history of noncompliance and nonadherence to his medications an d his followups. He had also left AMA in the past. He says he has lower extremity swelling. He is able to ambulate, but gets shortness of breath on exertion at times. He has no headaches or dizzines s. No dysuria, frequency. No weakness in the arms or the legs. REVIEW OF SYSTEMS: All other review of systems are within normal limits except as mentioned. ALLERGIES: QUETIAPINE. PAST MEDICAL HISTORY: 1. Atrial fibrillation, on Coumadin. 2. Diabetic neuropathy. 3. Diabetes type 2. 4. Hypertension. 5. Chronic obstructive pulmonary disease. 6. Dyslipidemia. 7. Morbid obesity with a body mass index of 39. 8. Congestive heart failure secondary to diastolic dysfunction. 9. Left leg ischemia with thrombectomy. FAMILY HISTORY: Father of liver disease at 68. Mother at 52. SOCIAL HISTORY: The patient does not smoke or drink. He quit smoking about 20 years ago. HOME MEDICATIONS: He is on Dulera, Levemir, Singulair, Lanoxin. PHYSICAL EXAMINATION: VITAL SIGNS: Temperature is 98, pulse of 90, blood pressure 109/77, respirations 20, O2 saturation 99%. Height is 5 feet 8 inches, weight is 270 pounds, BMI is 41.1. GENERAL: Patient lying in bed, flat, and in no apparent distress. HEAD AND NECK EXAM: Atraumatic, normocephalic. Conjunctivae are pink. Throat clear and mouth with moist mucosa. Oropharynx benign. EYES: Extraocular movements are intact. PERRLA. NECK: Supple. No JVD, thyromegaly, or adenopathy. No bruits. HEART: S1 and S2 regular rate and rhythm. No murmurs, rubs, or gallops. LUNGS: Clear to auscultation bilaterally. No wheezing rales or rhonchi appreciated. No retraction s on exam. ABDOMEN: Soft, nontender, nondistended. Bowel sounds are positive in all quadrants. No rebound. No hepatosplenomegaly. EXTREMITIES: No cyanosis, clubbing. Lower extremities have 2+ edema. NEURO: No facial asymmetry, tongue is midline, no uvula deviation. Power is 5/5 in upper extremity and 5/5 in lower extremity. Sensation is normal in upper extremity and lower extremity. PSYCH: Awake, alert, oriented x3. No anxiety or depression symptoms. Good insight. Normal affec t. : No CVA tenderness VASCULAR: 2+ pulses in carotid and pedal pulses. SKIN: No erythema or abnormal nodules noted. SPINE: Normal curvature. LYMPHADENOPATHY: No anterior cervical or posterior cervical adenopathy. No inguinal adenopathy. LABORATORY DATA: White count of 10.6, hemoglobin 14.6, platelet count is 220. INR is 1.49. He has a sodium of 137, potassium is 4.5, creatinine is 1.0. His troponin is 0.1. Toxicology done shows a digoxin of 0.5. EKG showed atrial fibrillation with rapid rate of 100, low QRS, QTC is 399. Chest x-ray done shows mild to moderate pulmonary congestion. ASSESSMENT: 1. Acute congestive heart failure secondary to systolic dysfunction, acute. 2. Atrial fibrillation, on Coumadin, was subtherapeutic. 3. Diabetes type 2. 4. Diabetic neuropathy. 5. Hypertension. 6. Chronic obstructive pulmonary disease. 7. Dyslipidemia. 8. Morbid obesity with a body mass index of 39. 9. Left leg ischemia, status post thrombectomy, resolved. 10. Mitral regurgitation, moderate. 11. Tricuspid regurgitation, moderate. PLAN: The patient is going to be admitted to the hospital. He wants to follow with Dr. Bonilla. He has still not been able to go. His last echo was in 05/2015 that showed an ejection fraction of 45%. The patient is going to be placed on IV diuretic therapy. He is subtherapeutic in his INR. He is g oing to have his Coumadin continued. He has not followed up for INR checks as an outpatient. I will get cardiology and pulmonary to see the patient. He is going to be on metformin for his diabetes. He is on Ativan daily. He is on Amaryl. The patient is on Lipitor for dyslipidemia. He is on Singu lair. He is going to be on a carbohydrate consistent diet. I will place him on remote tele. Repeat blood work tomorrow. Axel Villagomez MD cc: [id number] TT: 07/25/2016 15:43:14 rn
[2016-07-25] MEDS ORDERED: Insulin Detemir 100 units/ml Vial (Levemir) SC ONE (16:53)
[2016-07-26] MEDS: Albuterol-Ipratrop 3 mg / 0.5 (3 ml) UD IH SCH ×5 (00:20→20:07)
--- NOTE | 2016-07-26 07:00 | CON ---
DATE: 07/25/2016 REFERRING PHYSICIAN: Dr. Axel Villagomez. REASON FOR CONSULT: Chronic obstructive lung disease, obstructive sleep apnea syndrome, cardiomyopat hy. HISTORY OF PRESENT ILLNESS: This is a 56-year-old gentleman well known to me from previous admission , not very noncompliant with the followup and medication, comes in with shortness of breath, subthera peutic INR and also A-fib with rapid ventricular response, found to be in heart failure with signific ant leg swelling and shortness of breath, admitted for further workup, received diuretics. He is sit ting up side of the bed, very loud snoring, daytime sleepy and tired, short of breath on minimal exer tion. No chest pain, no nausea, no vomiting, no diarrhea. Does have leg swelling. PAST MEDICAL HISTORY: Chronic obstructive lung disease, obstructive sleep apnea syndrome, cardiomyop athy, obesity, diabetes, hypertension, hyperlipidemia, status post left lower lobe thromboembolic dis ease requiring thrombectomy. SOCIAL HISTORY: Stopped smoking, claims that he does not drink alcohol anymore. FAMILY HISTORY: Parents at a young age. ALLERGIES: QUETIAPINE. MEDICATIONS: He is on Amaryl 4 mg daily, Ativan 2 mg twice a day, verapamil 40 mg 3 times a day, Cou madin 10 mg daily, trazodone 200 mg at bedtime, DuoNeb q. 4 hours, metformin 1000 mg twice a day, ins ulin coverage, digoxin 0.125 mg daily, Levemir 40 units a.c. BD, Lipitor 40 mg daily, metoprolol tart rate 50 mg twice a day, Lovenox 120 mg subQ q. 12 hours, Singulair 10 mg daily. REVIEW OF SYSTEMS: No headache, no rhinitis. Admits to have shortness of breath. No cough, no ches t pain. Had palpitation. No nausea, no vomiting, no diarrhea. Has significant leg swelling. PHYSICAL EXAMINATION: GENERAL: Sitting side of the bed, mild distress. VITAL SIGNS: Temp is 98, heart rate is 106, respiratory rate is 20, blood pressure 128/93, pulse ox 98% on nasal cannula. HEENT: Moist mucous membranes. Crowded airway. Mallampati score is 4. NECK: Short, thick neck. LUNGS: Have crackles at the bases. HEART: Irregularly irregular. ABDOMEN: Obese, soft, nontender. EXTREMITIES: Have edema of the legs. NEUROLOGIC: Awake, alert, follows simple commands. LABORATORY DATA: Shows hemoglobin 14.6, hematocrit 44.2, WBC 10.6, and platelet count is 220. INR 1 .49. PTT is 26. Sodium 137, potassium 4.5, chloride 100, bicarbonate 29, BUN 15, creatinine 1.0, g lucose 79, calcium 8.8, total bili 0.8, AST 20, ALT 38, alk phos is 69. ProBNP 3010, albumin is 3.7. Digoxin level is 0.5. IMPRESSION AND PLAN: Cardiomyopathy with congestive heart failure, atrial fibrillation, chronic obst ructive lung disease, obstructive sleep apnea syndrome, diabetes, hypertension, history of thromboemb olic disease requiring thrombectomy, obesity. I agree with Dr. Villagomez with the present management. 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 We will place him on BiPAP. Hopefully, he will use it. Sleep apnea precaution. Keep head elev ated at 45 degrees. Fall precaution. Follow up electrolytes in the morning. He needs followup slee p study. We will try to attempt to do split study to qualify him for the CPAP. He may benefit from nasal cannula mask. Thank you and we will follow you. Tia Godinez MD cc: [id number] TT: 07/26/2016 06:59:34 Confirmation # [id number] Dictation # [id number] tn
[2016-07-26 07:08] LABS: ADD MANUAL DIFF? NO
[2016-07-26 07:16] LABS: BASO # 0.06 K/mm3 (0.0-2.0); BASO % 0.5 % (0.0-3.0); EOS # 0.1 (0.0-0.7); EOS % 0.6 % (1.5-5.0); GRAN # 10.26 (1.4-6.5); GRAN % 81.4 % (50.0-68.0); HEMATOCRIT 41.7 % (42.0-52.0); LYMPH # 1.3 (1.2-3.4); LYMPH % 10.1 % (22.0-35.0); MEAN CELL VOLUME 86.9 fL (80.0-105.0); MEAN CORPUSCULAR HEMOGLOBIN 27.9 pg (25.0-35.0); MEAN CORPUSCULAR HGB CONC 32.1 g/dl (31.0-37.0); MEAN PLATELET VOLUME 10.9 fl (7.0-11.0); MONO # 0.9 (0.1-0.6); MONO % 7.4 % (1.0-6.0); PLATELET COUNT 240 10^3/uL (120.0-450.0); RED CELL DISTRIBUTION WIDTH 16.6 % (11.5-14.5); WHITE BLOOD COUNT 12.6 10^3/ul (4.5-11.0)
[2016-07-26 07:19] LABS: INR 1.67 (0.93-1.08)
[2016-07-26 07:32] LABS: ALB/GLOB RATIO 1.3 (1.1-1.8); ALKALINE PHOSPHATASE 71 U/L (38-133); ALT/SGPT 33 U/L (7-56); AST/SGOT 21 U/L (15-59); BILIRUBIN,TOTAL 0.9 mg/dL (0.2-1.3); BLOOD UREA NITROGEN 24 mg/dL (7-21); CALCIUM 8.9 mg/dL (8.4-10.5); CARBON DIOXIDE 28 mmol/L (21-33); CHLORIDE 100 mmol/L (95-110); GFR AFRICAN-AMERICAN > 60; GLUCOSE,RANDOM 86 mg/dL (70-110); MAGNESIUM 1.2 mg/dL (1.7-2.2); PHOSPHOROUS 3.7 mg/dL (2.5-4.5); POTASSIUM 4.2 mmol/L (3.6-5.0); SODIUM 138 mmol/L (132-148); TOTAL PROTEIN 6.8 g/dL (5.8-8.3)
--- NOTE | 2016-07-26 08:17 | PN ---
DATE: 07/26/2016 SUBJECTIVE: The patient had no complaints of any chest pain, ____ shortness of breath. He says his shortness of breath ____ as it was before. He is able to ambulate. He has no complaints of any head aches or dizziness. PHYSICAL EXAMINATION: VITAL SIGNS: Temperature 98, pulse 110, blood pressure 128/93, respirations 17. GENERAL: The patient comfortable, in no acute distress. HEENT: Anicteric sclerae. Moist mucosa. NECK: No JVD or adenopathy. CARDIAC: S1/S2. No murmurs. No rubs. Regular. RESPIRATORY: Clear to auscultation bilaterally. No wheezes, rales, or rhonchi. Good air entry. ABDOMEN: Bowel sounds are positive, soft, nontender, and nondistended. EXTREMITIES: Have 1+ pulses. He has 1+ edema. ASSESSMENT: 1. Acute congestive heart failure secondary to systolic dysfunction. 2. Atrial fibrillation, on Coumadin. 3. Diabetes, type 2. 4. Diabetic neuropathy. 5. Hypertension. 6. Chronic obstructive pulmonary disease. 7. Dyslipidemia. 8. Morbid obesity with a body mass index of 39. 9. Left leg ischemia status post thrombectomy. 10. Mitral regurgitation, moderate. 11. Tricuspid regurgitation, moderate. PLAN: The patient is on Coumadin; he is going to continue. He is on Ativan p.o. He is on Amaryl fo r his diabetes. He is on trazodone. He is receiving metformin for his diabetes. He is on Lasix for his CHF. He is on metoprolol. He is going to be on Lovenox till he is therapeutic. Axel Villagomez MD cc: [id number] TT: 07/26/2016 07:13:50 Confirmation # [id number] Dictation # [id number] mn
[2016-07-26] MEDS ORDERED: Albuterol-Ipratrop 3 mg / 0.5 (3 ml) UD IH PRN (08:23)
[2016-07-26] MEDS: Insulin Detemir 100 units/ml Vial (Levemir) SC SCH ×2 (08:30→17:23)
[2016-07-26] MEDS: Insulin Reg-HIGH-Coverage SC SCH ×4 (08:30→21:43)
[2016-07-26] MEDS ORDERED: Magnesium Sulfate 1 gm in D5W 1 GM/100 ML BAG IVPB ONE ×2 (11:28→13:00)
[2016-07-26] MEDS: Enoxaparin 120 mg Syringe SC SCH (11:42)
[2016-07-26] MEDS: Digoxin 125 mcg (0.125 mg) Tab PO SCH (13:41)
--- NOTE | 2016-07-26 14:02 | PN ---
DATE: 07/26/2016 The patient in room 374, bed 1. REASON FOR FOLLOWUP: Decompensated congestive heart failure, atrial fib, chronic nonobstructive davina nary artery disease. HISTORY OF PRESENT ILLNESS: The patient is a 56-year-old obese male with body mass index of 41.1 kg/ m2, noncompliant with medication, active tobacco and alcohol abuse, who was admitted with shortness of breath. The patient has similar multiple admissions. The patient had 3 times cath in the past sh owing nonobstructive coronary artery disease. She is scheduled for radiofrequency ablation for AFib but usually he does not keep appointment to go to Dr. Bonilla for that. The patient now states that h e is feeling better. Denies any chest pain. He says his breathing is better. Denies palpitation. The patient continued to be active tobacco abuse and alcohol abuse. The patient's detailed cardiac h istory is mentioned in our consultation dated 07/25/2016. PHYSICAL EXAMINATION: VITAL SIGNS: Blood pressure 126/92, respirations 20, pulse 112, temperature 98.8. HEENT: Head is normocephalic. Eyes: Pupils normal. Conjunctivae normal. LUNGS: No significant rales. CARDIOVASCULAR: S1, S2. Irregular rhythm due to atrial fibrillation. ABDOMEN: Soft, no organomegaly. EXTREMITIES: No clubbing, no cyanosis. LABORATORY DATA: WBC 12.6, hemoglobin 13.4, hematocrit 41.7, platelet 240. Sodium 138, potassium 4. 2, BUN 24, creatinine 1.4, random sugar 73. Magnesium level is 1.2. AST, ALT normal. Total protein and albumin normal. DIAGNOSES: Decompensated congestive heart failure, acute on chronic secondary to systolic dysfunctio n, chronic atrial fibrillation, failed transesophageal echocardiography and cardioversion, noncomplia nt with medication, active tobacco abuse, active alcohol abuse, morbid obesity, chronic atrial fibril lation, low magnesium level. PLAN: We will give mag sulfate IV and we will repeat labs in the morning. In the meantime, patient is getting furosemide, Lasix 40 IV q.8 hours, insulin as ordered, metoprolol tartrate 50 b.i.d., Love nox 120 subQ q.12 hours because INR was low. Warfarin 10 mg yesterday and 10 mg today and from [facility] patient will be on warfarin 7.5 mg p.o. daily. Verapamil 40 mg t.i.d. Glimepiride 4 mg p.o. suresh ly. Singulair 10 mg daily. The patient already received magnesium sulfate 1 gram. I will give anot her 1 gram now and repeat labs in the morning. Tia Cabello MD cc: [id number] TT: 07/26/2016 14:02:27 Confirmation # [id number] Dictation # [id number] sn
--- NOTE | 2016-07-26 15:58 | CON ---
DATE: 07/26/2016 HISTORY OF PRESENT ILLNESS: Shortly, the patient is a 56-year-old male. The patient has m ultiple medical problems including CHF, hypertension, diabetes, chronic obstructive pulmonary disease , dyslipidemia, neuropathy and atrial fibrillation. The patient came to the Emergency Room for short ness of breath, was admitted to the medical floor. Psych consult was called for evaluation of possib le mood ____ and patient prone to have delirium stage. The patient was seen and examined today. This check writer is very familiar with this patient from the pre vious admissions to the medical side and short hospitalization to the psychiatric inpatient unit more than a year ago. The patient has frequent admissions on the medical side, has had delirium stage an d was leaving against medical advice, had history of agitated behavior. As per night nurse's report, the patient was agitated, was pulling IV line and also patient did not want to have heart monitoring either. At the morning time, patient was calmer. The patient presented to be alert and oriented. The patient was irritable. The patient said, "It would be better if I will not see you ever again." The patient reported that at the morning time he feels better. Denied any chest pain or shortness o f breath. The patient reported that he is not depressed. The patient's quote was, "Everybody thinks that I'm depress, but I'm not." The patient denied hearing voices, denied seeing ____. The patient does not present to be psychotic. The patient denied feeling anxious. VITAL SIGNS: Stable. Temperature is 98.8, pulse is 78, blood pressure 108/67. MEDICATIONS: Reviewed. DuoNeb, Lipitor, digoxin, Lovenox, Lasix, Amaryl, Levemir, Humulin, Ativan, Glucophage, Lopressor, Singulair, trazodone 200 mg at the nighttime, Claritin, Coumadin. LABORATORIES: WBC cells 12.6, hemoglobin 13.4, hematocrit 41.7. Coagulation is reviewed. Chemistry reviewed. Toxicology reviewed. Digoxin less than 0.5. MENTAL STATUS EXAMINATION: The patient presented to be alert, irritable, intermittent eye contact. Speech was underproductive, yes/no answers. Mood described, "I'm not depressed. Everybody is saying that I'm depressed, but I'm not." Affect was irritable, constricted. Mood congruent. Thought proc ess was coherent and goal directed. Thought content: The patient denied visual, auditory, or tactil e hallucinations. Denied paranoid ideations. The patient denied thoughts of harming himself or othe rs, denied intent or plan. Insight and judgment limited. Impulses are well controlled. IMPRESSION: Most likely the patient has history of bipolar disorder. The patient has history of moo d disorder due to general medical condition. The [facility]. The patient is prone to have delirium because patient has atrial fibrillation, chronic obstructive pulmonary disease, congestive heart failure, obesity. PLAN: Continue current medication. Continue Ativan as it is. Continue trazodone 200 mg. This writ er will sign off because patient does not want to be followed up by psychiatrist. If patient's menta l status will change, please consider to reconsult this check writer. This check writer is willing to help, but patient does not want to talk to this check writer. Thank you very much for letting me participate in the care of your patient. Should you have any ques tions, give me a call back. Eli Garcia MD cc: [id number] TT: 07/26/2016 15:57:35 Confirmation # [id number] Dictation # [id number] mn
--- NOTE | 2016-07-26 21:23 | PN ---
DATE: 07/26/2016 REFERRING PHYSICIAN: Dr. Axel Villagomez SUBJECTIVE: The patient is out of bed to chair, sleepy, arousable. Night was unremarkable. Did not use CPAP. CPAP is at bedside, though. No headache, no rhinitis. Breathing is a little better. No branden st pain, no palpitation. No nausea, vomiting, diarrhea. Still having leg swelling. OBJECTIVE: GENERAL: No acute distress. VITAL SIGNS: Temperature is 98, heart rate is 81, respiratory rate is 20, blood pressure 100/50, pul se ox 91% on room air. HEENT: Moist mucous membranes. Crowded airway. Mallampati score is 4. NECK: Supple. No JVD. LUNGS: A few crackles at the bases. HEART: S1, S2, irregular. ABDOMEN: Soft, nontender. No organomegaly. EXTREMITIES: Has edema. NEUROLOGIC: Sleepy, arousable, follows simple command. MEDICATIONS: He is on Amaryl 4 mg, Ativan 2 mg twice a day, Calan 40 mg 3 times a day, Coumadin 10 m g will be given tonight, trazodone 200 mg at bedtime, DuoNeb q. 6 hours, metformin 1000 mg twice a da y, insulin coverage, digoxin 0.125 mg daily, Lasix 40 mg q. 8 hours, Levemir 30 units subQ a.c. and L ipitor 40 mg daily, metoprolol tartrate 50 mg twice a day, Lovenox is at 120 mg subQ twice a day, Sin gulair 10 mg daily. LABORATORY DATA: Shows hemoglobin 13.4, hematocrit 41.7, WBC 12.6, platelet is 240. INR 1.67. Sodi um 138, potassium 4.2, chloride 100, bicarbonate 28, BUN 24, creatinine 1.4, glucose 67, calcium 8.9, phosphorus 3.7, magnesium 1.2, AST 21, ALT 33, alkaline phosphatase 71, albumin is 3.8. IMPRESSION AND PLAN: Cardiomyopathy with congestive heart failure, atrial fibrillation, chronic obst ructive lung disease, obstructive sleep apnea syndrome, diabetes, hypertension, thromboembolic diseas e secondary to noncompliance with anticoagulation. Had a mechanical thrombectomy of the left lower e xtremity, obesity, activities of daily living dysfunction. I had a long discussion with the patient and encouraged him to use CPAP at night. Keep head elevated at 45 degrees. Avoid , continue di uretics, bronchodilators. Being followed by cardiology and , also seen by psychiatry. Replace magnesium. Follow up labs in the morning. We will follow with you. Tia Godinez MD cc: [id number] TT: 07/26/2016 21:23:20 Confirmation # [id number] Dictation # [id number]
--- NOTE | 2016-07-27 06:56 | PN ---
DATE: 07/27/2016 SUBJECTIVE: The patient has no complaints of any chest pain. No shortness of breath, no headaches o r dizziness. PHYSICAL EXAMINATION: VITAL SIGNS: Temperature is 98.8, pulse of 94, blood pressure 102/73, respirations 20. GENERAL: The patient comfortable, in no acute distress. HEENT: Anicteric sclerae. Moist mucosa. NECK: No JVD or adenopathy. CARDIAC: S1/S2. No murmurs. No rubs. Regular. RESPIRATORY: Clear to auscultation bilaterally. No wheezes, rales, or rhonchi. Good air entry. ABDOMEN: Bowel sounds are positive, soft, nontender, and nondistended. EXTREMITIES: Lower extremities 1+ edema. Has 1+ pulses. LABORATORY DATA: White count of 12.6, hemoglobin 13.4, creatinine is 1.4. ASSESSMENT: 1. Acute congestive heart failure secondary to systolic dysfunction. 2. Atrial fibrillation, on Coumadin. 3. Diabetes type 2. 4. Diabetic neuropathy. 5. Hypertension. 6. Chronic obstructive pulmonary disease. 7. Dyslipidemia. 8. Morbid obesity with a body mass index of 39. 9. History of left leg ischemia, status post thrombectomy. 10. Mitral regurgitation, moderate 11. Tricuspid regurgitation, moderate. 12. Probable bipolar disorder. PLAN: The patient is currently comfortable. He is able to ambulate. He was able to transfer on hi s own, had good balance. He has been able to ambulate on his own. The patient is on verapamil. He is on his Ativan. He is going to continue with Amaryl for his diabetes. He is on metformin for his diabetes as well. The patient is on Lasix q. 8. He is on Levemir for his diabetes. He is on Singul air. He is being followed by cardiology and pulmonary. I appreciate their input. He is also being followed by psychiatry. The patient most likely has bipolar disorder according to psychiatry. The justino virgen's psychiatrist has signed off. Axel Villagomez MD cc: [id number] TT: 07/27/2016 06:55:12 Confirmation # [id number] Dictation # [id number] tn
--- NOTE | 2016-07-27 07:09 | CP.PCM.PN ---
Subjective - Date & Time of Evaluation Date of Evaluation: 07/27/16 Time of Evaluation: 01:00 - Subjective Subjective: 24 G angiocath inserted for purpose of IVF and meds, in single attempt, in left hand vein with good flow and return. Objective - Vital Signs/Intake and Output Vital Signs (last 24 hours): Temp Pulse Resp BP Pulse Ox 98.8 F 94 H 20 100/65 91 L 07/26/16 06:00 07/27/16 05:25 07/26/16 06:00 07/27/16 06:18 07/26/16 06:00 Intake and Output: 07/27/16 07/27/16 06:59 18:59 Intake Total 600 Balance 600 - Medications Medications: Current Medications Albuterol/Ipratropium (Duoneb 3 Mg/0.5 Mg (3 Ml) Ud) 3 ml IH TIDRESP [facility] Last Admin: 07/26/16 20:07 Dose: 3 ml Albuterol/Ipratropium (Duoneb 3 Mg/0.5 Mg (3 Ml) Ud) 3 ml IH [id number] PRN PRN Reason: Shortness of Breath Atorvastatin Calcium (Lipitor) 40 mg PO DIN [facility] Last Admin: 07/26/16 17:30 Dose: 40 mg Digoxin (Lanoxin) 0.125 mg PO 1400 [facility] Last Admin: 07/26/16 13:41 Dose: 0.125 mg Furosemide (Lasix) 40 mg IVP Q8 [facility] Last Admin: 07/27/16 06:18 Dose: 40 mg Glimepiride (Amaryl) 4 mg PO BRK [facility] Last Admin: 07/26/16 08:48 Dose: 4 mg Insulin Detemir (Levemir) 30 unit SC ACBD [facility] Last Admin: 07/26/16 17:23 Dose: Not Given Insulin Human Regular (Humulin R High) 0 units SC ACHS [facility] PRN Reason: Protocol Last Admin: 07/26/16 21:43 Dose: Not Given Lorazepam (Ativan) 2 mg PO BID [facility] PRN Reason: Protocol Last Admin: 07/26/16 17:30 Dose: 2 mg Metformin HCl (Glucophage) 1,000 mg PO BID [facility] Last Admin: 07/26/16 17:30 Dose: 1,000 mg Metoprolol Tartrate (Lopressor) 50 mg PO BID [facility] Last Admin: 07/26/16 17:33 Dose: Not Given Montelukast Sodium (Singulair) 10 mg PO HS [facility] Last Admin: 07/26/16 21:39 Dose: 10 mg Trazodone HCl (Desyrel) 200 mg PO HS [facility] Last Admin: 07/26/16 21:39 Dose: 200 mg Verapamil HCl (Calan Tab) 40 mg PO TID [facility] Last Admin: 07/26/16 17:32 Dose: 40 mg Warfarin Sodium (Coumadin) 7.5 mg PO 1800 [facility] PRN Reason: Protocol - Labs Labs: 07/26/16 07:00 07/26/16 07:00 PT 18.0 Seconds (9.9-11.8) H 07/26/16 07:00 INR 1.67 (0.93-1.08) H 07/26/16 07:00 APTT 25.7 Seconds (23.7-30.8) 07/25/16 03:40
[2016-07-27] MEDS: Insulin Detemir 100 units/ml Vial (Levemir) SC SCH ×2 (08:00→17:55)
--- NOTE | 2016-07-27 08:02 | PQF GENQUE ---
This form is a permanent part of the medical record Dr. Rajan, As relations manager on this case, please note that the diagnosis of cardiomyopathy requires more specificity as to type or cause. Please provide this information if known. Clarification of your documentation is requested to better reflect the severity of illness and intensity of treatment of your patient. Indicators present [x] Specify:Please clarify type of cardiomyopathy: congestive, dilated, alcoholic, ischemic, hypertensive, other [X] Specify: [X] Non ischemic, possibly secondary to alcohol related CMP [] Specify: [] [] Specify: [] Location in the medical record that reflects the above clinical findings: [] Treatment Provided: [] PHYSICIAN'S RESPONSE Based on your medical judgment of the clinical indicators outlined above please clarify the following: [] Practitioner response [] If unable to determine, please check the box, sign and date. Present On Admission (POA) Indicator: [] Present at the time of admission [] Not present at the time of admission [] Clinically Undetermined In responding to this query, please exercise your independent professional judgment. The fact that a question is asked does not imply that any particular answer is desired or expected. Thank you for your clarification on this documentation. If you have any questions please call:[ ] * Thank you, [ ]Payam Reddy [facility] #[id number] aquarist [place]
[2016-07-27 08:05] LABS: INR 2.56 (0.93-1.08)
[2016-07-27 08:10] LABS: BLOOD UREA NITROGEN 29 mg/dL (7-21); CALCIUM 8.6 mg/dL (8.4-10.5); CARBON DIOXIDE 28 mmol/L (21-33); CHLORIDE 100 mmol/L (98-107); GFR AFRICAN-AMERICAN > 60; GLUCOSE,RANDOM 63 mg/dL (70-110); MAGNESIUM 1.6 mg/dL (1.7-2.2); PHOSPHOROUS 4.9 mg/dL (2.5-4.5); POTASSIUM 3.8 mmol/L (3.6-5.0); SODIUM 139 mmol/L (132-148)
[2016-07-27] MEDS: Albuterol-Ipratrop 3 mg / 0.5 (3 ml) UD IH SCH ×3 (08:14→19:33)
[2016-07-27] MEDS: Insulin Reg-HIGH-Coverage SC SCH ×3 (09:37→17:30)
[2016-07-27] MEDS ORDERED: Magnesium Sulfate 2 GM in Sodium Chloride 0.9% 100 ML IVPB ONE (09:37)
[2016-07-27] MEDS ORDERED: Potassium Chloride 20 mEq ER Tab PO ONE (09:37)
--- NOTE | 2016-07-27 10:04 | PN ---
DATE: 07/26/2016 REASON FOR CONSULTATION AND FOLLOWUP: Decompensated congestive heart failure, atrial fibrillation, s tatus post cardiac catheterization, nonobstructive coronary artery disease. BRIEF CLINICAL HISTORY: This is a 56-year-old male with past medical history significant for chronic atrial fibrillation, morbid obesity, nonobstructive coronary artery disease, admitted with weakness, decompensated congestive heart failure. REVIEW OF SYSTEMS: Complete review of systems is not ____ dictating from the top of the head. The p atient denies any chest pain, shortness of breath, any palpitation. The patient is currently on 3R, 374, bed 1. PHYSICAL EXAMINATION: VITAL SIGNS: Temperature afebrile, heart rate 100, blood pressure 120/80. HEENT: PERRLA. Extraocular muscles intact. NECK: Supple. No carotid bruits. No thyromegaly. CHEST: Clear to auscultation. HEART: S1, S2 regular. ABDOMEN: Soft. EXTREMITIES: Clubbing and cyanosis negative. LABORATORY DATA: Blood workup pending as the computer system is down. IMPRESSION: Atrial fibrillation with controlled rate, morbid obesity, diabetes, hypertension, hyperl ipidemia, status post cardiac catheterization, nonobstructive coronary artery disease, congestive hea rt failure, cardiomyopathy, mitral regurgitation and tricuspid regurgitation. RECOMMENDATION: Continue verapamil, continue the beta rahat, continue digoxin, continue anticoagul ation. Started Lovenox as a bridge until the INR gets therapeutic. We will follow when the lab is a vailable and the computer system is up. So far, the computer system is down. Tia Rajan MD cc: [id number] TT: 07/27/2016 08:41:03 Confirmation # [id number] Dictation # [id number] yael
[2016-07-27] MEDS ORDERED: Sodium Chloride 0.9% 500 ML IV STA (13:39)
[2016-07-27] MEDS: Digoxin 125 mcg (0.125 mg) Tab PO SCH (13:50)
[2016-07-27 13:52] VITALS: PULSE 101
--- NOTE | 2016-07-27 18:15 | PN ---
DATE: 07/27/2016 REFERRING PHYSICIAN: Dr. Villagomez. SUBJECTIVE: He is lying in the bed, sleepy, arousable, on 1:1 supervision, refused to use CPAP. Not much cough. No nausea, no vomiting, no diarrhea. Decreased leg swelling. OBJECTIVE: GENERAL: No acute distress. VITAL SIGNS: Temperature is 98, heart rate is 70, respiratory rate is 20, blood pressure 100/65, pul se ox 99% on nasal cannula. HEENT: Moist mucous membranes. Small oral cavity. NECK: Short, thick neck. LUNGS: Has a fair airflow with few rhonchi. HEART: Irregularly irregular. ABDOMEN: Soft, nontender. No organomegaly. EXTREMITIES: Does have edema. NEUROLOGIC: Sleepy, arousable, follows simple command. MEDICATIONS: He is on Ativan 2 mg twice a day, Calan is placed on hold, also Amaryl is on hold, Coum serjio 7.5 mg will be given today, trazodone 200 mg daily, DuoNeb q. 6 hours, metformin 1000 mg which i s on hold, digoxin 0.125 mg daily, Lipitor 40 mg daily, metoprolol tartrate 50 mg twice a day, Singul air 10 mg daily. LABORATORY DATA: Shows hemoglobin yesterday at 13.4. Today INR at 2.56. Sodium 139, potassium ____ , chloride 100, bicarbonate 28, BUN 29, creatinine 1.2, glucose 63, calcium is 8.6, phosphorus 4.9, m agnesium 1.6. 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 intake, seen by justino plata, on 1:1 supervision. Pulmonary point of view, keep head elevated at 45 degrees if sedated, encourage CPAP use. Gastric prophylaxis. Anticoagulation. Follow up labs in the morning. Watch f or renal failure closely if he cuts down his fluids and p.o. intake. Follow up labs in the morning. Thank you and will follow with you. Tia Godinez MD cc: [id number] TT: 07/27/2016 18:14:15 Confirmation # [id number] Dictation # [id number] [id number]
[2016-07-28] MEDS: Insulin Reg-HIGH-Coverage SC SCH ×2 (01:54→08:05)
[2016-07-28 04:51] LABS: ADD MANUAL DIFF? NO
[2016-07-28 04:55] LABS: BASO # 0.07 K/mm3 (0.0-2.0); BASO % 0.9 % (0.0-3.0); EOS # 0.1 (0.0-0.7); EOS % 1.7 % (1.5-5.0); GRAN # 5.55 (1.4-6.5); GRAN % 67.9 % (50.0-68.0); HEMATOCRIT 36.6 % (42.0-52.0); LYMPH # 1.8 (1.2-3.4); LYMPH % 22.4 % (22.0-35.0); MEAN CELL VOLUME 87.1 fL (80.0-105.0); MEAN CORPUSCULAR HEMOGLOBIN 28.3 pg (25.0-35.0); MEAN CORPUSCULAR HGB CONC 32.5 g/dl (31.0-37.0); MEAN PLATELET VOLUME 10.7 fl (7.0-11.0); MONO # 0.6 (0.1-0.6); MONO % 7.1 % (1.0-6.0); PLATELET COUNT 203 10^3/uL (120.0-450.0); RED CELL DISTRIBUTION WIDTH 16.6 % (11.5-14.5); WHITE BLOOD COUNT 8.2 10^3/ul (4.5-11.0)
[2016-07-28 05:05] LABS: INR 3.35 (0.93-1.08)
[2016-07-28 05:07] LABS: ALB/GLOB RATIO 1.1 (1.1-1.8); ALKALINE PHOSPHATASE 69 U/L (38-133); ALT/SGPT 32 U/L (7-56); AST/SGOT 21 U/L (15-59); BILIRUBIN,TOTAL 0.6 mg/dL (0.2-1.3); BLOOD UREA NITROGEN 25 mg/dL (7-21); CALCIUM 8.5 mg/dL (8.4-10.5); CARBON DIOXIDE 29 mmol/L (21-33); CHLORIDE 97 mmol/L (98-107); GFR AFRICAN-AMERICAN > 60; GLUCOSE,RANDOM 117 mg/dL (70-110); MAGNESIUM 1.8 mg/dL (1.7-2.2); PHOSPHOROUS 3.6 mg/dL (2.5-4.5); POTASSIUM 3.9 mmol/L (3.6-5.0); SODIUM 136 mmol/L (132-148); TOTAL PROTEIN 6.4 g/dL (5.8-8.3)
--- NOTE | 2016-07-28 06:28 | DS ---
HOSPITAL COURSE: The patient is a 56-year-old male who is coming in to the hospital with shortness o f breath. He was found to have an acute CHF exacerbation. The patient has been given IV diuretic th erapy and has improvement of his symptoms. He is currently comfortable. He has no headaches or dizz iness. He says he does get shortness of breath when he exerts himself. He has no chest pain, no beatriz sea, no vomiting. He was admitted and he was placed on IV diuretic therapy. He had improvement of h is symptoms. He is going to be discharged home to follow up as an outpatient. PHYSICAL EXAMINATION: VITAL SIGNS: Temperature is 97.6, pulse of 110, blood pressure 114/81, respirations 18. GENERAL: Patient lying in bed, flat, and in no apparent distress. HEAD AND NECK EXAM: Atraumatic, normocephalic. Conjunctivae are pink. Throat clear and mouth with moist mucosa. Oropharynx benign. EYES: Extraocular movements are intact. PERRLA. NECK: Supple. No JVD, thyromegaly, or adenopathy. No bruits. HEART: S1 and S2 regular rate and rhythm. No murmurs, rubs, or gallops. LUNGS: Clear to auscultation bilaterally. No wheezing rales or rhonchi appreciated. No retraction s on exam. ABDOMEN: Soft, nontender, nondistended. Bowel sounds are positive in all quadrants. No rebound. No hepatosplenomegaly. EXTREMITIES: No cyanosis, clubbing. Lower extremities 1+ edema. NEURO: No facial asymmetry, tongue is midline, no uvula deviation. Power is 5/5 in upper extremity and 5/5 in lower extremity. Sensation is normal in upper extremity and lower extremity. PSYCH: Awake, alert, oriented x3. No anxiety or depression symptoms. Good insight. Normal affec t. : No CVA tenderness VASCULAR: 2+ pulses in carotid and pedal pulses. SKIN: No erythema or abnormal nodules noted. SPINE: Normal curvature. LYMPHADENOPATHY: No anterior cervical or posterior cervical adenopathy. No inguinal adenopathy. ASSESSMENT: 1. Acute congestive heart failure secondary to systolic dysfunction, improving. 2. Atrial fibrillation, on Coumadin. 3. Diabetes type 2. 4. Diabetic neuropathy. 5. Hypertension. 6. Chronic obstructive pulmonary disease. 7. Dyslipidemia. 8. Morbid obesity with a body mass index of 39. 9. Mitral regurgitation, moderate. 10. Tricuspid regurgitation, moderate. 11. Left leg ischemia, status post thrombectomy. PLAN: The patient is currently comfortable. He is on for his diabetes. The patient is on Adv air. He is receiving Coumadin. The patient is on trazadone for his anxiety. He is on digoxin. He is going to be continued on Levemir for his diabetes. He is on Lipitor for dyslipidemia. He is on m etoprolol. His last blood pressure was 114/81. His last INR was 3.3 at a higher Coumadin dose. He is going to be discharged to follow up as an outpatient. He was advised to come into the office for a check on his INR. He is also advised with his specialists Dr. Godinez, as well as Dr. Rajan. He was educated regarding the importance of compliance and adherence to his treatment plan. CONDITION: Stable. ACTIVITY: As tolerated. FOLLOWUP: With Dr. Levine within 1 week for future INR checks and also for evaluation of shortness of breath. 2. Follow up with Dr. Rajan in 1-2 weeks. 3. Follow up with Dr. Godinez. Axel Villagomez MD cc: [id number] TT: 07/28/2016 06:27:13 hunter
[2016-07-28] MEDS: Albuterol-Ipratrop 3 mg / 0.5 (3 ml) UD IH SCH (07:57)
[2016-07-28] MEDS: Insulin Detemir 100 units/ml Vial (Levemir) SC SCH (09:42)
[2016-07-28 10:56] VITALS: BP 109/85; PULSE 90; RESP 20; TEMP 97.7; O2SAT 95
--- NOTE | 2016-07-28 11:56 | PN ---
DATE: 07/28/2016 REFERRING PHYSICIAN: Dr. Axel Villagomez. SUBJECTIVE: Sitting side of the bed. Night was unremarkable. Did not use CPAP/BiPAP. No headache, no rhinitis. Breathing is better. No nausea, no vomiting, no diarrhea. Still has leg swelling. OBJECTIVE: GENERAL: In no acute distress. VITAL SIGNS: Temp is 98, heart rate is 90, respiratory rate is 20, blood pressure 109/85, pulse ox 9 5% on 2 liters nasal cannula. HEENT: Moist mucous membrane. Crowded airway. Mallampati score is 4. NECK: Short, thick neck. LUNGS: Have fair airflow with a few rhonchi. HEART: S1, S2. ABDOMEN: Soft, nontender. No organomegaly. EXTREMITIES: Decreased edema. NEUROLOGIC: Awake, alert, follows simple command. MEDICATIONS: He is on Amaryl 4 mg daily, also Ativan 2 mg twice a day, Calan 40 mg 3 times a day, Co umadin 7.5 mg was given last night, trazodone 200 mg daily, DuoNeb q. 6 hours, metformin 1000 mg twic e a day, insulin coverage, digoxin 0.125 mg daily, Levemir 30 units subQ ACBD, Lipitor 40 mg daily, m etoprolol tartrate 50 mg twice a day, Singulair 10 mg daily. LABORATORY DATA: Shows hemoglobin 11.9, hematocrit 36.6, WBC 8.2, platelet is 203. INR is 3.35. So dium 136, potassium 3.9, chloride 97, bicarbonate 29, BUN 25, creatinine 1.0, glucose is 117, phospho gracie 3.6. AST 21, ALT 32, alkaline phosphatase is 69, albumin is 3.4. IMPRESSION AND PLAN: Cardiomyopathy with congestive heart failure, atrial fibrillation, chronic obst ructive lung disease, obstructive sleep apnea syndrome, diabetes, hypertension, atrial fibrillation, also had thromboembolic disease requiring mechanical thrombectomy in the past. I had a long discussi on with the patient, talked about sleep apnea, atrial fibrillation, any fibrillation, and also thromb oembolic disease and its relation to atrial fibrillation and need to be compliant with the medication . Will set him up outpatient sleep study to qualify him for CPAP; that may be triggering his uncontr olled heart rate with AFib. High risk for fall. Thank you, and will follow with you. Tia Godinez MD cc: [id number] TT: 07/28/2016 11:55:06 Confirmation # [id number] Dictation # [id number] mn
== END 2016-07-28 11:27 | disposition home or self-care (01) | DRG 292 ==
LOC: ED 02:29 → ERH 05:02 → OBSVTOIN 12:03 → ERH 15:30 → 3RSO 16:14
PROVIDERS: ADMIT Internal Medicine Nephrology; ATTEND Internal Medicine Nephrology
DX: I50.43 Acute on chronic combined systolic (congestive) and diastolic (congestive) heart failure (principal); I42.9 Cardiomyopathy, unspecified; E11.40 Type 2 diabetes mellitus with diabetic neuropathy, unspecified; Z68.41 Body mass index [BMI] 40.0-44.9, adult; I08.1 Rheumatic disorders of both mitral and tricuspid valves; E83.42 Hypomagnesemia; I42.8 Other cardiomyopathies; E66.01 Morbid (severe) obesity due to excess calories; I48.91 Unspecified atrial fibrillation; J44.9 Chronic obstructive pulmonary disease, unspecified; I11.0 Hypertensive heart disease with heart failure; I25.10 Atherosclerotic heart disease of native coronary artery without angina pectoris; G47.33 Obstructive sleep apnea (adult) (pediatric); E78.5 Hyperlipidemia, unspecified; F10.10 Alcohol abuse, uncomplicated; Z79.01 Long term (current) use of anticoagulants; Z72.0 Tobacco use; F31.9 Bipolar disorder, unspecified; H91.90 Unspecified hearing loss, unspecified ear; I48.2 Chronic atrial fibrillation; K21.9 Gastro-esophageal reflux disease without esophagitis; Z79.899 Other long term (current) drug therapy; Z87.01 Personal history of pneumonia (recurrent); Z91.14 Patient's other noncompliance with medication regimen; Z91.19 Patient's noncompliance with other medical treatment and regimen; Z98.84 Bariatric surgery status; S80.812D Abrasion, left lower leg, subsequent encounter; S80.811D Abrasion, right lower leg, subsequent encounter; F41.9 Anxiety disorder, unspecified; Z87.892 Personal history of anaphylaxis; Z88.8 Allergy status to other drugs, medicaments and biological substances; Z91.018 Allergy to other foods; R40.2412 Glasgow coma scale score 13-15, at arrival to emergency department; I99.8 Other disorder of circulatory system; F06.30 Mood disorder due to known physiological condition, unspecified

== ENCOUNTER 2016-08-01 17:57 | Inpatient (IN) | payer MEDICARE, OTHER ==
[2016-08-01 18:04] VITALS: BMI 41.0
[2016-08-01 18:40] LABS: ADD MANUAL DIFF? NO
[2016-08-01 18:54] LABS: BASO # 0.06 K/mm3 (0.0-2.0); BASO % 0.6 % (0.0-3.0); EOS # 0.1 (0.0-0.7); EOS % 0.8 % (1.5-5.0); GRAN # 7.62 (1.4-6.5); GRAN % 76.7 % (50.0-68.0); HEMATOCRIT 40.1 % (42.0-52.0); LYMPH # 1.6 (1.2-3.4); LYMPH % 16.2 % (22.0-35.0); MEAN CELL VOLUME 86.1 fL (80.0-105.0); MEAN CORPUSCULAR HEMOGLOBIN 28.3 pg (25.0-35.0); MEAN CORPUSCULAR HGB CONC 32.9 g/dl (31.0-37.0); MEAN PLATELET VOLUME 11.3 fl (7.0-11.0); MONO # 0.6 (0.1-0.6); MONO % 5.7 % (1.0-6.0); PLATELET COUNT 210 10^3/uL (120.0-450.0); RED CELL DISTRIBUTION WIDTH 16.4 % (11.5-14.5); WHITE BLOOD COUNT 9.9 10^3/ul (4.5-11.0)
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
[2016-08-01 19:25] LABS: ALB/GLOB RATIO 1.4 (1.1-1.8); ALKALINE PHOSPHATASE 71 U/L (38-133); ALT/SGPT 26 U/L (7-56); AST/SGOT 22 U/L (15-59); BILIRUBIN,TOTAL 1.8 mg/dL (0.2-1.3); BLOOD UREA NITROGEN 16 mg/dL (7-21); CALCIUM 9.5 mg/dL (8.4-10.5); CARBON DIOXIDE 24 mmol/L (21-33); CHLORIDE 100 mmol/L (98-107); GFR AFRICAN-AMERICAN > 60; GLUCOSE,RANDOM 169 mg/dL (70-110); SODIUM 138 mmol/L (132-148); TOTAL PROTEIN 6.7 g/dL (5.8-8.3)
[2016-08-01 19:27] LABS: POTASSIUM 4.2 mmol/L (3.6-5.0)
[2016-08-01 19:37] LABS: TROPONIN I 0.06 ng/mL
[2016-08-01 19:42] LABS: INR 1.58 (0.93-1.08); PARTIAL THROMBOPLASTIN TIME 26.2 Seconds (23.7-30.8)
[2016-08-01] MEDS ORDERED: diltiaZEM IVPB 100mg in NS 100 ML IV PRN (23:34)
--- NOTE | 2016-08-01 23:34 | CP.PCM.PN ---
Subjective - Date & Time of Evaluation Date of Evaluation: 08/01/16 Time of Evaluation: 23:33 - Subjective Subjective: Patient was seen for HR 140/min afib. He received 20 cardizem in ER Has no complaints. Denied chest pain, sob, nausea ,sweating , palpitation. Medical record was reviewed. This 56 year old white male was admitted for sob/atrial fibrillation with RVR. Has PMH of atrial fibrillation, obesity, HTN,DM, diabetic neuropathy, non compliance, COPD, left leg ischemia,dyslipidemial Objective - Vital Signs/Intake and Output Vital Signs (last 24 hours): Temp Pulse Resp BP Pulse Ox 98.2 F 128 H 20 130/95 H 96 08/01/16 18:19 08/01/16 22:22 08/01/16 22:22 08/01/16 22:22 08/01/16 22:22 - Labs Labs: PT 17.1 Seconds (9.9-11.8) H 08/01/16 18:15 INR 1.58 (0.93-1.08) H 08/01/16 18:15 APTT 26.2 Seconds (23.7-30.8) 08/01/16 18:15 - Constitutional Appears: Well, No Acute Distress - Head Exam Head Exam: ATRAUMATIC, NORMAL INSPECTION, NORMOCEPHALIC Additional comments: Obese. - Eye Exam Eye Exam: Normal appearance - ENT Exam ENT Exam: Normal External Ear Exam - Neck Exam Neck Exam: Normal Inspection - Respiratory Exam Respiratory Exam: NORMAL BREATHING PATTERN - Cardiovascular Exam Cardiovascular Exam: absent: JVD - GI/Abdominal Exam GI & Abdominal Exam: absent: Distended - Rectal Exam Rectal Exam: Deferred - Extremities Exam Extremities Exam: Normal Inspection - Back Exam Back Exam: NORMAL INSPECTION - Neurological Exam Neurological Exam: Alert, Oriented x3 - Psychiatric Exam Psychiatric exam: Normal Affect, Normal Mood - Skin Skin Exam: Normal Color Assessment and Plan - Assessment and Plan (Free Text) Assessment: A/P:Atrial fibrillation with RVR. Dyspnea. Obesity. DM. HTN. Dyslipidemia. Cardizem 20 mg IV bolus was given. Cardizem 5 ml/hr drip was started,which was increased to 10 ml/her later on. Continue present management.
[2016-08-02] MEDS: Enoxaparin 100 mg Syringe SC SCH ×2 (08:36→21:17)
--- NOTE | 2016-08-02 08:54 | RAD ---
HISTORY: cough COMPARISON: 07/25/2016 FINDINGS: LUNGS: Pulmonary vascular congestion, possible right fissural fluid suggested. Previously pulmonary vascular congestion was noted at this current appearance is similar. PLEURA: No pneumothorax. Findings as above CARDIOVASCULAR: Cardiomegaly and pulmonary vascular congestion suggested. Small right pleural effusion suspect. Probable small right fissural fluid OSSEOUS STRUCTURES: No significant abnormalities. VISUALIZED UPPER ABDOMEN: Normal. OTHER FINDINGS: None. IMPRESSION: Cardiomegaly, pulmonary venous congestion and small right pleural effusion - findings are similar and consistent with congestive heart failure. Interval suggestion of a small right fissural fluid collection
[2016-08-02] MEDS ORDERED: DULERA IH SCH (10:00)
[2016-08-02] MEDS ORDERED: Digoxin 500 mcg/2ml (0.5 mg/2ml) Inj IVP ONE (10:16)
--- NOTE | 2016-08-02 10:17 | HP ---
CHIEF COMPLAINT AND HISTORY OF PRESENT ILLNESS: This is a 56-year-old male who is coming into the [facility] with a past medical history of atrial fibrillation. He was having more shortness of breath. He was found to be in rapid AFib in the 150s and so was admitted to the hospital for further evaluati on. He was given IV Cardizem. The patient has not followed up with his EPS doctor. The patient is noncompliant with his medications. He is therapeutic on his INR. The patient says his palpitations are better. His heart rate has improved. He has no complaints of any headaches or dizziness, no beatriz sea, no vomiting. He says he just does not feel well. No nausea, no vomiting, no dysuria or frequen cy. He gets weakness after he ambulates and shortness of breath. REVIEW OF SYSTEMS: All other review of systems are within normal limits except as mentioned. ALLERGIES: QUETIAPINE. PAST MEDICAL HISTORY: 1. Atrial fibrillation, on Coumadin. 2. Noncompliance. 3. Diabetic neuropathy. 4. Diabetes type 2. 5. Hypertension. 6. Chronic obstructive pulmonary disease. 7. Left leg ischemia status post thrombectomy. 8. Dyslipidemia. 9. Obesity with a body mass index of 39. 10. Congestive heart failure secondary to diastolic dysfunction. FAMILY HISTORY: Father of liver disease at 68. Mother at 52. SOCIAL HISTORY: The patient does not smoke or drink. He quit smoking about 20 years ago. HOME MEDICATIONS: Have been reviewed. He is on digoxin, Singulair, Levemir, Zestril, Dulera. PHYSICAL EXAMINATION: VITAL SIGNS: Temperature is 97.7, pulse of 118, blood pressure 108/62, respirations 20, O2 saturati on 94%. GENERAL: Patient lying in bed, flat, and in no apparent distress. HEAD AND NECK EXAM: Atraumatic, normocephalic. Conjunctivae are pink. Throat clear and mouth with moist mucosa. Oropharynx benign. EYES: Extraocular movements are intact. PERRLA. NECK: Supple. No JVD, thyromegaly, or adenopathy. No bruits. HEART: S1 and S2 irregular rate and rhythm. No murmurs, rubs, or gallops. LUNGS: Clear to auscultation bilaterally. No wheezing rales or rhonchi appreciated. No retraction s on exam. ABDOMEN: Soft, nontender, nondistended. Bowel sounds are positive in all quadrants. No rebound. No hepatosplenomegaly. EXTREMITIES: Lower extremities trace edema. NEURO: No facial asymmetry, tongue is midline, no uvula deviation. Power is 5/5 in upper extremity and 5/5 in lower extremity. Sensation is normal in upper extremity and lower extremity. PSYCH: Awake, alert, oriented x3. No anxiety or depression symptoms. Good insight. Normal affec t. : No CVA tenderness VASCULAR: 2+ pulses in carotid and pedal pulses. SKIN: No erythema or abnormal nodules noted. SPINE: Normal curvature. LYMPHADENOPATHY: No anterior cervical or posterior cervical adenopathy. No inguinal adenopathy. LABORATORY DATA: Chest x-ray shows no infiltrates. EKG shows atrial fibrillation at a rate of 160, no ST-T changes. ASSESSMENT: 1. Atrial fibrillation with rapid rate. 2. Noncompliance. 3. Diabetes type 2. 4. Diabetic neuropathy. 5. Hypertension. 6. Chronic obstructive pulmonary disease. 7. Dyslipidemia. 8. Obesity with a body mass index of 41. 9. Congestive heart failure secondary to diastolic dysfunction, stable. 10. Peripheral arterial disease. PLAN: The patient is currently comfortable. He is on Cardizem. He is going to continue with verapa mil. I will get Dr. Rajan and Dr. Godinez from cardiology and pulmonary respectively to see the patien t. I have increased his Coumadin dosage. He is going to be on Lovenox while he is subtherapeutic on his Coumadin. He is going to be on lisinopril for hypertension. He is on a heart healthy diet. Adam goodwin prognosis is guarded. Axel Villagomez MD cc: [id number] TT: 08/02/2016 10:17:28 jie
[2016-08-02] MEDS: Digoxin 250 mcg (0.25 mg) Tab PO SCH (10:28)
[2016-08-02] MEDS: Insulin Detemir 100 units/ml Vial (Levemir) SC SCH ×2 (11:33→18:49)
[2016-08-02] MEDS ORDERED: Sodium Chloride 0.9% 500 ML IV STA (16:03)
--- NOTE | 2016-08-02 16:40 | CARD ---
APPROVED REPORT EKG Measurement Heart [id number] <Conclusion> Atrial fibrillation with rapid ventricular response with premature ventricular or aberrantly conducted complexes Low voltage QRS Nonspecific T wave abnormality, probably digitalis effect Abnormal ECG
--- NOTE | 2016-08-02 20:38 | CON ---
DATE: 08/02/2016 REFERRING PHYSICIAN: Dr. Axel Villagomez. REASON FOR CONSULT: Shortness of breath, uncontrolled AFib, history of chronic lung disease, sleep a pnea syndrome. HISTORY OF PRESENT ILLNESS: This is a 56-year-old gentleman, noncompliant with medication and follow up, has a history of atrial fibrillation, cardiomyopathy, pulmonary hypertension, chronic obstructive lung disease, obstructive sleep apnea syndrome, morbid obesity, diabetes, hypertension, status post left leg thromboembolic disease requiring mechanical thrombectomy, comes into Emergency Room with Mario b with a heart rate of 150, shortness of breath, swelling legs. No nausea, no vomiting, no diarrhea. PAST MEDICAL HISTORY: As per history of present illness. ALLERGIES: QUETIAPINE. SOCIAL HISTORY: Stopped smoking and drinking. FAMILY HISTORY: Positive for early in the family. Father had liver disease. MEDICATIONS: He is on Amaryl 5 mg daily, Ativan 2 mg a.m. and at bedtime, Calan 80 mg 3 times a day, Coumadin 8 mg will be given today, trazodone 200 mg at bedtime, Dulera 100/5 two puffs twice a day, metformin 1000 mg twice a day, digoxin 0.125 mg daily, Lasix 40 mg twice a day, Levemir 40 units subQ twice a day, Lipitor 40 mg daily, Lopressor 50 mg twice a day, Lovenox 100 mg twice a day, Singulair 10 mg daily, Zestril 20 mg daily. REVIEW OF SYSTEMS: No headache, no rhinitis. Has shortness of breath. No nausea, no vomiting. Inc reased abdominal girth. Increased leg swelling. PHYSICAL EXAMINATION: GENERAL: Sitting side of the bed with shortness of breath. VITAL SIGNS: Temp is 98, heart rate is 109, respiratory rate is 20, blood pressure 134/91, pulse ox 94% on nasal cannula. HEENT: Moist mucous membranes. Crowded airway. Mallampati score is 4. NECK: Short, thick neck. LUNGS: Has decreased breath sounds at the bases with crackles. HEART: Irregularly irregular. ABDOMEN: Soft, nontender, nondistended. EXTREMITIES: Has edema up to the hips. NEUROLOGIC: Awake, alert, follows simple commands. LABORATORY DATA: Shows hemoglobin 13.2, hematocrit 40.1, WBC 9.9, platelet is 210. INR 1.58. Sodiu m 138, potassium 4.2, chloride 100, bicarbonate 24, BUN 16, creatinine 0.9, glucose 116, calcium 9.5, total bilirubin 1.8, AST 22, ALT 26. Alk phos is 71. Troponin 0.06, proBNP 3700, albumin 3.8. Dig oxin level less than 0.4. Chest x-ray done in the ER shows cardiomegaly, pulmonary venous congestion , small right pleural effusion, also with fissural fluid collection. IMPRESSION AND PLAN: Cardiomyopathy with atrial fibrillation, uncontrolled ventricular response, hea rt rate is 150, congestive heart failure, chronic lung disease, obstructive sleep apnea syndrome, mor bid obesity, sleep apnea syndrome, diabetes, hypertension, history of thromboembolic disease secondar y to noncompliance with anticoagulation. The biggest issue patient has is noncompliant with followup and medication. 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 May benefit from home nursing visit. For now, I will increase Lasix to 80 twice a day for a da y or so and follow electrolytes on a daily basis. Inhaled bronchodilator. The patient has suspected sleep apnea syndrome, refusing to use CPAP/BiPAP, understands risk/benefit ratio, but I will order a CPAP anyway, which will be 12/8 with 35% oxygen while sleeping. Continue anticoagulation. Gastric prophylaxis. Fall precautions. Thank you and will follow with you. Tia Godinez MD cc: [id number] TT: 08/02/2016 20:38:08 Confirmation # [id number] Dictation # [id number] jie
[2016-08-02] MEDS ORDERED: Sodium Chloride 0.9% 500 ML IV SCH (21:15)
--- NOTE | 2016-08-02 21:18 | CON ---
DATE: 08/02/2016 REASON FOR CONSULTATION: AFib with rapid ventricular rate, heart rate 170s. BRIEF CLINICAL HISTORY: This is a 56-year-old obese male, his body mass index 43 kg/m2, noncomplianc e with medication, active tobacco, active alcohol abuse, noncompliance with the medication, admitted with shortness of breath and heart was racing fast, heart rate is 170, afib with rapid ventricular ra te is started on IV Cardizem, now being switched to verapamil. PAST MEDICAL HISTORY: Significant for chronic atrial fibrillation, obesity, failed CORA cardioversion , history of cardiac catheterization, nonobstructive coronary artery disease. PREVIOUS CARDIAC WORKUP FOLLOWS: The patient had a cardiac catheterization at least twice, possib ly 3, last catheterization 11/05/2014 normal coronaries, ejection fraction 50%, EDP was in the range of 30. Medical treatment recommended. Emphasis made on weight reduction, compliance with the medica tion, cessation smoking and stop alcohol abuse. The patient multiple times has schedule made for rad iofrequency ablation with Dr. Bonilla at [facility] but the patient did not go. Excuse is that his telephone broke and could not get in touch with Dr. Bonilla and now says that whenever he wants t o go, he ends up in [facility]. Last echo dated 06/10/2015 shows ejection fraction 45%, concentric l eft ventricular hypertrophy, global hypokinesis, moderate mitral regurgitation, moderate tricuspid re gurgitation, RV systolic pressure 20. SOCIAL HISTORY: Active tobacco abuse, active alcohol abuse. CURRENT MEDICATIONS: The patient is supposed to take verapamil 80 mg 3 times a day, Coumadin, metopr olol, metformin, lisinopril, insulin, glimepiride, ____ subtherapeutic INR. I am not sure how much i s taking, possibly not taking verapamil as well. ALLERGY: WILD MCC[place]. REVIEW OF SYSTEMS: A 14-point review of systems negative except as per HPI. PHYSICAL EXAMINATION: VITAL SIGNS: Temperature afebrile, heart rate 140, blood pressure 131/91. HEENT: PERRLA. Extraocular muscles intact. NECK: Supple. No carotid bruits. No thyromegaly. CHEST: Clear to auscultation. HEART: S1, S2 regular. ABDOMEN: Soft. EXTREMITIES: Clubbing and cyanosis negative. LABORATORY DATA: Blood workup as follows: WBC 9.9, hemoglobin 13.2, hematocrit 40.1, platelet count 210. Chemistry shows sodium 130, potassium 4.0, chloride 100, carbon dioxide 24, anion gap of 18, B UN ____, creatinine 0.6. BNP 3700. IMPRESSION: Atrial fibrillation with rapid ventricular rate, chronic atrial fibrillation, morbid obe sity, diabetes, hypertension, hyperlipidemia, cardiomyopathy, ____ moderate tricuspid regurgitation, tobacco abuse, active alcohol abuse, subtherapeutic INR, noncompliance with the medication. RECOMMENDATION: The patient tolerated IV Cardizem. We will start p.o. verapamil and start beta blo cker, digoxin and then will switch over to p.o. verapamil and discontinue Cardizem. Continue anticoa gulation and give bridge as Lovenox. We will follow with you. Compliance with the medication, and f ollow up with Dr. Bonilla for radiofrequency ablation. The patient is very noncompliant. Thank you Albert Villagomez for the opportunity in taking care of this patient. Tia Rajan MD cc:Axel Villagomez MD [id number] TT: 08/02/2016 21:17:28 Confirmation # [id number] Dictation # [id number]
[2016-08-02] MEDS ORDERED: Sodium Chloride 0.9% 250 ML IV STA (23:27)
--- NOTE | 2016-08-03 15:05 | PN ---
DATE: 08/03/2016 REASON FOR CONSULTATION: AFib, rapid ventricular rate. BRIEF CLINICAL HISTORY: A 56-year-old noncompliant with medication, computer system is down, dictati ng with the top of the head. Noncompliant patient, nonobstructive coronary artery disease, status po st cardiac catheterization twice, admitted with AFib with rapid ventricular rate, now rate well contr olled. Denies any chest pain, shortness of breath, any palpitation. PHYSICAL EXAMINATION: VITAL SIGNS: Heart rate 70, blood pressure 110/80. HEENT: PERRLA. Extraocular muscles intact. NECK: Supple. No carotid bruits. No thyromegaly. CHEST: Clear to auscultation. HEART: S1, S2 regular. ABDOMEN: Soft. EXTREMITIES: Clubbing and cyanosis negative. LABORATORY DATA: Blood workup pending as computer system is down. IMPRESSION: Atrial fibrillation with rapid ventricular rate, now well controlled, morbid obesity, di abetes, hypertension, hyperlipidemia, cardiomyopathy, nonischemic, status post cardiac catheterizatio n, nonobstructive coronary artery disease, mild decreased left ventricular function, tricuspid regurgitation. RECOMMENDATION: Continue verapamil, continue anticoagulation. Continue beta rahat. Continue digo jyoti. Emphasis made again to the patient that patient needs to go see Dr. Bonilla upon discharge at [facility] for radiofrequency ablation. Arrangements have been made. We will follow the lab when the [employer] system is back. As of now, [employer] system is down. Tia Rajan MD cc:Axel Villagomez MD 305 TT: 08/03/2016 11:46:24 Confirmation # [id number] Dictation # [id number]
[2016-08-03] MEDS: Enoxaparin 100 mg Syringe SC SCH (21:03)
--- NOTE | 2016-08-03 21:09 | PN ---
DATE: 08/03/2016 REFERRING PHYSICIAN: Dr. Axel Villagomez. SUBJECTIVE: He is sitting side of the bed, feels a little better, still short of breath. No signifi cant cough. No nausea, no vomiting, no diarrhea. No dysuria. Has significant leg swelling. Refuse d to use CPAP/BiPAP. OBJECTIVE: GENERAL: No acute distress. VITAL SIGNS: Temp is 98, heart rate is 78, respiratory rate is 20, and blood pressure is 90/60. HEENT: Moist mucous membranes. Crowded airway. NECK: Supple. No JVD. LUNGS: Has decreased breath sounds at bases. HEART: S1, S2 irregular. ABDOMEN: Soft, nontender. No organomegaly. Has ascites. EXTREMITIES: Has edema of the lower extremities. NEUROLOGIC: Awake, alert, follows simple commands. MEDICATIONS: Reviewed, noted. His verapamil and Lopressor was held because of low blood pressure. No other changes in medication reported. LABORATORY DATA: Reviewed. IMPRESSION AND PLAN: Cardiomyopathy, atrial fibrillation, congestive heart failure, chronic obstruct bob lung disease, obstructive sleep apnea syndrome, diabetes, hypertension, hyperlipidemia. Will con tinue to encourage BiPAP use. Continue bronchodilator. Keep head elevated at 45 degrees. Continue diuretics, beta rahat, calcium channel rahat. Follow up hemodynamically. Supposed to go see Dr. Bonilla at [facility] for possible ablation therapy. Did not make it so far. Also need atten ded sleep study to qualify him for home CPAP. Will follow with you. Tia Godinez MD cc: [id number] TT: 08/03/2016 21:08:38 Confirmation # [id number] Dictation # [id number] jie
[2016-08-03] MEDS ORDERED: Dextrose 50% SYRINGE Inj (50 ml) IVP ONE (21:56)
--- NOTE | 2016-08-03 21:58 | CP.PCM.PN ---
Subjective - Date & Time of Evaluation Date of Evaluation: 08/03/16 Time of Evaluation: 21:57 - Subjective Subjective: Earlier today when meditech was down patient was seen for low bp. BP was 80/55. Patient denied any chest pain, sob, nausea, vomiting ,diarrhoea, bleeding. Medical record was reviewed. Admitted for sob/atrial fibrillation with RVR. Has PMH of atrial fibrillation, obesity, HTN,DM, dyslipidemia., diabetic neuropathy, non compliance, COPD, left leg ischemia. Objective - Vital Signs/Intake and Output Vital Signs (last 24 hours): Temp Pulse Resp BP Pulse Ox 98 F 78 16 80/55 L 94 L 08/02/16 18:00 08/02/16 18:57 08/02/16 18:00 08/02/16 18:57 08/02/16 06:00 - Medications Medications: Current Medications Atorvastatin Calcium (Lipitor) 40 mg PO DIN [facility] Last Admin: 08/02/16 18:55 Dose: 40 mg Dextrose (Dextrose 50% Inj) 50 ml IVP ONCE ONE Stop: 08/03/16 21:57 Digoxin (Lanoxin) 0.125 mg PO DAILY [facility] Last Admin: 08/02/16 10:28 Dose: 0.125 mg Enoxaparin Sodium (Lovenox) 100 mg SC Q12H [facility] PRN Reason: Protocol Last Admin: 08/03/16 21:03 Dose: 100 mg Furosemide (Lasix) 80 mg PO BID [facility] Last Admin: 08/02/16 18:46 Dose: Not Given Glimepiride (Amaryl) 4 mg PO DAILY [facility] Last Admin: 08/02/16 10:23 Dose: 4 mg Insulin Detemir (Levemir) 40 unit SC BID [facility] Last Admin: 08/02/16 18:49 Dose: 40 unit Lisinopril (Zestril) 20 mg PO DAILY [facility] Last Admin: 08/02/16 10:37 Dose: 20 mg Lorazepam (Ativan) 2 mg PO [facility] PRN Reason: Protocol Last Admin: 08/03/16 21:02 Dose: 2 mg Metformin HCl (Glucophage) 1,000 mg PO BID [facility] Last Admin: 08/02/16 18:45 Dose: 1,000 mg Metoprolol Tartrate (Lopressor) 50 mg PO BID [facility] Last Admin: 08/02/16 18:57 Dose: Not Given Montelukast Sodium (Singulair) 10 mg PO DAILY [facility] Last Admin: 08/02/16 11:36 Dose: 10 mg Dulera 100 Mcg/5 Mcg (Inhaler (Home Med)) 2 puff IH DAILY [facility] Trazodone HCl (Desyrel) 200 mg PO HS [facility] Last Admin: 08/03/16 21:02 Dose: 200 mg Verapamil HCl (Calan Tab) 80 mg PO TID [facility] Last Admin: 08/02/16 18:43 Dose: Not Given Warfarin Sodium (Coumadin) [address] [facility] PRN Reason: Protocol Last Admin: 08/03/16 21:01 Dose: 8 mg - Labs Labs: PT 17.1 Seconds (9.9-11.8) H 08/01/16 18:15 INR 1.58 (0.93-1.08) H 08/01/16 18:15 APTT 26.2 Seconds (23.7-30.8) 08/01/16 18:15 - Constitutional Appears: Well, In Acute Distress - Head Exam Head Exam: ATRAUMATIC, NORMAL INSPECTION, NORMOCEPHALIC Additional comments: Obese. - Eye Exam Eye Exam: Normal appearance - ENT Exam ENT Exam: Normal External Ear Exam - Neck Exam Neck Exam: Normal Inspection - Respiratory Exam Respiratory Exam: NORMAL BREATHING PATTERN - Cardiovascular Exam Cardiovascular Exam: absent: JVD - GI/Abdominal Exam GI & Abdominal Exam: absent: Distended - Rectal Exam Rectal Exam: Deferred - Extremities Exam Extremities Exam: Normal Inspection - Back Exam Back Exam: NORMAL INSPECTION - Neurological Exam Neurological Exam: Alert, Oriented x3 - Psychiatric Exam Psychiatric exam: Normal Affect, Normal Mood - Skin Skin Exam: Normal Color Assessment and Plan - Assessment and Plan (Free Text) Assessment: A/P:Hypotension- Hypovolemia? HTN. DM. Obesity. COPD. Atrial fibrillation. Normal saline 250 ml IV bolus x 1. Continue present management.
--- NOTE | 2016-08-04 02:50 | CP.PCM.PN ---
Subjective - Date & Time of Evaluation Date of Evaluation: 08/04/16 Time of Evaluation: 02:36 - Subjective Subjective: S:Earlier, nurse had told that his FSBS was 47 mg %. I had ordered 50 ml of Dextrose 50 % IV. Finger stick was rechecked now.It is 68 mg %. patient has refused to keep monitor electrodes on. He is awake now.Does not answer my questions if he ate enough yesterday in day time. Medical record was reviewed. O:98.1*F,63/Min, 20/Min, 117/69 mm Hg, Not in distress. LUNGS:Normal breathing pattern. NEURO:Speech normal. A:Hypoglycemia. P:D50 % , 50 ml was given intravenously. Objective - Vital Signs/Intake and Output Vital Signs (last 24 hours): Temp Pulse Resp BP Pulse Ox 98 F 78 16 80/55 L 94 L 08/02/16 18:00 08/02/16 18:57 08/02/16 18:00 08/02/16 18:57 08/02/16 06:00 - Medications Medications: Current Medications Atorvastatin Calcium (Lipitor) 40 mg PO DIN [facility] Last Admin: 08/02/16 18:55 Dose: 40 mg Digoxin (Lanoxin) 0.125 mg PO DAILY [facility] Last Admin: 08/02/16 10:28 Dose: 0.125 mg Enoxaparin Sodium (Lovenox) 100 mg SC Q12H [facility] PRN Reason: Protocol Last Admin: 08/03/16 21:03 Dose: 100 mg Furosemide (Lasix) 80 mg PO BID [facility] Last Admin: 08/02/16 18:46 Dose: Not Given Glimepiride (Amaryl) 4 mg PO DAILY [facility] Last Admin: 08/02/16 10:23 Dose: 4 mg Insulin Detemir (Levemir) 40 unit SC BID [facility] Last Admin: 08/02/16 18:49 Dose: 40 unit Lisinopril (Zestril) 20 mg PO DAILY [facility] Last Admin: 08/02/16 10:37 Dose: 20 mg Lorazepam (Ativan) 2 mg PO AMHS [facility] PRN Reason: Protocol Last Admin: 08/03/16 21:02 Dose: 2 mg Metformin HCl (Glucophage) 1,000 mg PO BID [facility] Last Admin: 08/02/16 18:45 Dose: 1,000 mg Metoprolol Tartrate (Lopressor) 50 mg PO BID [facility] Last Admin: 08/02/16 18:57 Dose: Not Given Montelukast Sodium (Singulair) 10 mg PO DAILY [facility] Last Admin: 08/02/16 11:36 Dose: 10 mg Dulera 100 Mcg/5 Mcg (Inhaler (Home Med)) 2 puff IH DAILY [facility] Trazodone HCl (Desyrel) 200 mg PO HS [facility] Last Admin: 08/03/16 21:02 Dose: 200 mg Verapamil HCl (Calan Tab) 80 mg PO TID [facility] Last Admin: 08/02/16 18:43 Dose: Not Given Warfarin Sodium (Coumadin) 8 mg PO [facility] PRN Reason: Protocol Last Admin: 08/03/16 21:01 Dose: 8 mg - Labs Labs: PT 17.1 Seconds (9.9-11.8) H 08/01/16 18:15 INR 1.58 (0.93-1.08) H 08/01/16 18:15 APTT 26.2 Seconds (23.7-30.8) 08/01/16 18:15
[2016-08-04] MEDS ORDERED: Sodium Chloride 0.9% 250 ML IV STA (04:46)
--- NOTE | 2016-08-04 04:46 | CP.PCM.PN ---
Subjective - Date & Time of Evaluation Date of Evaluation: 08/04/16 Time of Evaluation: 04:45 - Subjective Subjective: Nurse calls and tells that BP is 88/56 mmHg. He is asymptomatic. HR-103/min.Temp:98.3*F. Rx, NS 250 CC bolus over half hour. Objective - Vital Signs/Intake and Output Vital Signs (last 24 hours): Temp Pulse Resp BP Pulse Ox 98.1 F 63 20 117/69 94 L 08/03/16 00:01 08/03/16 00:01 08/03/16 00:01 08/03/16 00:01 08/02/16 06:00 - Medications Medications: Current Medications Atorvastatin Calcium (Lipitor) 40 mg PO DIN [facility] Last Admin: 08/02/16 18:55 Dose: 40 mg Digoxin (Lanoxin) 0.125 mg PO DAILY [facility] Last Admin: 08/02/16 10:28 Dose: 0.125 mg Enoxaparin Sodium (Lovenox) 100 mg SC Q12H [facility] PRN Reason: Protocol Last Admin: 08/03/16 21:03 Dose: 100 mg Furosemide (Lasix) 80 mg PO BID [facility] Last Admin: 08/02/16 18:46 Dose: Not Given Glimepiride (Amaryl) 4 mg PO DAILY [facility] Last Admin: 08/02/16 10:23 Dose: 4 mg Insulin Detemir (Levemir) 40 unit SC BID [facility] Last Admin: 08/02/16 18:49 Dose: 40 unit Lisinopril (Zestril) 20 mg PO DAILY [facility] Last Admin: 08/02/16 10:37 Dose: 20 mg Lorazepam (Ativan) 2 mg PO [facility] PRN Reason: Protocol Last Admin: 08/03/16 21:02 Dose: 2 mg Metformin HCl (Glucophage) 1,000 mg PO BID [facility] Last Admin: 08/02/16 18:45 Dose: 1,000 mg Metoprolol Tartrate (Lopressor) 50 mg PO BID [facility] Last Admin: 08/02/16 18:57 Dose: Not Given Montelukast Sodium (Singulair) 10 mg PO DAILY [facility] Last Admin: 08/02/16 11:36 Dose: 10 mg Dulera 100 Mcg/5 Mcg (Inhaler (Home Med)) 2 puff IH DAILY [facility] Trazodone HCl (Desyrel) 200 mg PO [facility] Last Admin: 08/03/16 21:02 Dose: 200 mg Verapamil HCl (Calan Tab) 80 mg PO TID [facility] Last Admin: 08/02/16 18:43 Dose: Not Given Warfarin Sodium (Coumadin) 8 mg PO HS [facility] PRN Reason: Protocol Last Admin: 08/03/16 21:01 Dose: 8 mg - Labs Labs: PT 17.1 Seconds (9.9-11.8) H 08/01/16 18:15 INR 1.58 (0.93-1.08) H 08/01/16 18:15 APTT 26.2 Seconds (23.7-30.8) 08/01/16 18:15
--- NOTE | 2016-08-04 08:17 | PN ---
DATE: 08/03/2016 This is a late dictation from yesterday as the hospital's computer systems were down. SUBJECTIVE: The patient has no complaints of any headaches, no dizziness, no chest pain, no nausea. He did have an episode of low blood pressure the day before. PHYSICAL EXAMINATION: VITAL SIGNS: Temperature is 98.1, pulse of 63, blood pressure 117/69, respirations 20. GENERAL: The patient comfortable, in no acute distress. HEENT: Anicteric sclerae. Moist mucosa. NECK: No JVD or adenopathy. CARDIAC: S1/S2. No murmurs. No rubs. Regular. RESPIRATORY: Clear to auscultation bilaterally. No wheezes, rales, or rhonchi. Good air entry. ABDOMEN: Bowel sounds are positive, soft, nontender, and nondistended. EXTREMITIES: No edema. Has 1+ pulses. ASSESSMENT: 1. Atrial fibrillation with rapid rate, improved. 2. Diabetic neuropathy. 3. Diabetes type 2. 4. Hypertension. 5. Noncompliance. 6. Chronic obstructive pulmonary disease. 7. Left leg ischemia, status post thrombectomy history. 8. Dyslipidemia. 9. Obesity with a body mass index of 41. 10. Congestive heart failure, secondary to diastolic dysfunction, stable. 11. Peripheral arterial disease. PLAN: The patient is being followed by Dr. Rajan. He is off his Cardizem drip. He is on verapamil f or his rate control. He is on Amaryl for his diabetes. He is on metformin for his diabetes as well. The patient is on Lasix. He is on Lipitor for dyslipidemia. He is on Lovenox for anticoagulation. Overall prognosis is guarded. Axel Villagomez MD cc: [id number] TT: 08/04/2016 07:47:37 Confirmation # [id number] Dictation # [id number]
--- NOTE | 2016-08-04 08:17 | PN ---
DATE: 08/04/2016 SUBJECTIVE: The patient has no complaints of any chest pain or shortness of breath, no headaches or dizziness. PHYSICAL EXAMINATION: VITAL SIGNS: Temperature is 98.1, pulse is 62, blood pressure 80/55, repeat 117/69 GENERAL: The patient comfortable, in no acute distress. HEENT: Anicteric sclerae. Moist mucosa. NECK: No JVD or adenopathy. CARDIAC: S1/S2. No murmurs. No rubs. Regular. RESPIRATORY: Clear to auscultation bilaterally. No wheezes, rales, or rhonchi. Good air entry. ABDOMEN: Bowel sounds are positive, soft, nontender, and nondistended. EXTREMITIES: No edema. Has 1+ pulses. ASSESSMENT: 1. Hypotension, resolved. 2. Atrial fibrillation with rapid rate on Coumadin. 3. Diabetes type 2. 4. Diabetic neuropathy. 5. Hypertension. 6. Chronic obstructive pulmonary disease. 7. Dyslipidemia. 8. Obesity with a body mass index of 41. 9. Congestive heart failure secondary to diastolic dysfunction. 10. Peripheral arterial disease. 11. Noncompliance. PLAN: The patient is currently comfortable, is on Amaryl for his diabetes. He is receiving verapami l for his atrial fibrillation. He is on Coumadin for anticoagulation. The patient is on trazodone, is going to continue and Lasix twice a day. We will hold his Lasix at this point because of th e hypotensive episode that happened overnight. The notes from the house doctor, Dr. López, have been reviewed. The patient's fingersticks were also low. Will also hold his diabetic medications becaus e of the hypoglycemic episode. Axel Villagomez MD cc: [id number] TT: 08/04/2016 07:42:16 Confirmation # [id number] Dictation # [id number] carla
[2016-08-04] MEDS: Enoxaparin 100 mg Syringe SC SCH (09:18)
[2016-08-04] MEDS: Digoxin 250 mcg (0.25 mg) Tab PO SCH (09:18)
[2016-08-04 09:20] VITALS: PULSE 84
[2016-08-04 15:03] VITALS: O2SAT 98
--- NOTE | 2016-08-04 17:40 | PN ---
DATE: 08/04/2016 REFERRING PHYSICIAN: Dr. Axel Villagomez. SUBJECTIVE: He is sitting up in a reclining chair. The night was unremarkable, but refused to use C PAP/BiPAP. He feels a little better, decreased cough, decreased shortness of breath. No nausea, no vomiting, no diarrhea. Still has significant leg swelling. OBJECTIVE: GENERAL: No acute distress. VITAL SIGNS: Temp is 98, heart rate is 101, respiratory rate is 20, blood pressure 113/73, pulse ox 98% on nasal cannula. HEENT: Moist mucous membranes. Crowded airway. Mallampati score is 4. NECK: Supple. No JVD. LUNGS: Has airflow with rhonchi. HEART: S1, S2. ABDOMEN: Soft, nontender. No organomegaly. EXTREMITIES: He does have edema. NEUROLOGIC: Awake, alert, follows simple command. MEDICATIONS: He is on Amaryl mg daily, Ativan 2 mg twice a day, Calan 80 mg 3 times a day, Cou madin 8 mg at bedtime, trazodone 200 mg daily, Dulera 100/5 two puffs daily, metformin 1000 mg twice a day, digoxin 0.125 mg daily, Levemir 40 units subQ twice a day, Lipitor 40 mg daily, metoprolol tar trate 50 mg twice a day, Lovenox 100 mg subQ twice a day, Singulair 10 mg daily, Zestril 20 mg daily. LABORATORY DATA: Reviewed. Blood sugar today is 83. IMPRESSION AND PLAN: Cardiomyopathy with atrial fibrillation, congestive heart failure, chronic obst ructive lung disease, obstructive sleep apnea syndrome, diabetes, hypertension, hyperlipidemia, medic al noncompliance with the medication and followup. Lasix was placed on hold because of hypotension. Will encourage CPAP while sleeping. Keep head elevated at 45 degrees. Bronchodilator after r educer. Follow up electrolytes in the morning. Fall precaution. Follow up INR. Thank you and will follow with you. Tia Godinez MD cc: [id number] TT: 08/04/2016 17:40:04 Confirmation # [id number] Dictation # [id number] mn
[2016-08-04 17:53] VITALS: BP 108/65; PULSE 61; RESP 19; TEMP 97.8
--- NOTE | 2016-08-04 18:03 | CP.PCM.PN ---
Subjective - Date & Time of Evaluation Date of Evaluation: 08/04/16 Time of Evaluation: 17:57 - Subjective Subjective: Patient seen because he wants to leave [facility] for personal reasons. He does not want any further examinations,tests or treatment at this facility. He is alert,oriented x 3 and is ambulatory,his VS are stable. I tried to persuade pt to stay and not [facility] ,namely,his HR can go high or very low,he could faint , could go into CHF, have a stroke or NH .He was also told of the possibility of his BP and his Diabetes going out of control,leading to complications like stroke,kidney failure ,vision problems or even . Also explained to him about the possibility of worsening of his COPD leading to Hypoxia, intubation ,vent dependence,,even . Patient says he understands everything,still wants to leave [facility]. He was advised to return to the ER if necessary and follow up with his PMD. Objective - Vital Signs/Intake and Output Vital Signs (last 24 hours): Temp Pulse Resp BP Pulse Ox 97.8 F 61 19 108/65 98 08/04/16 17:53 08/04/16 17:53 08/04/16 17:53 08/04/16 17:53 08/04/16 09:00 Intake and Output: 08/04/16 08/04/16 06:59 18:59 Intake Total 300 250 Output Total 0 Balance 300 250 - Medications Medications: Current Medications Atorvastatin Calcium (Lipitor) 40 mg PO DIN [facility] Last Admin: 08/04/16 17:26 Dose: 40 mg Digoxin (Lanoxin) 0.125 mg PO DAILY [facility] Last Admin: 08/04/16 09:18 Dose: 0.125 mg Enoxaparin Sodium (Lovenox) 100 mg SC Q12H [facility] PRN Reason: Protocol Last Admin: 08/04/16 09:18 Dose: 100 mg Glimepiride (Amaryl) 4 mg PO DAILY [facility] Last Admin: 08/04/16 09:19 Dose: 4 mg Insulin Detemir (Levemir) 40 unit SC BID [facility] Last Admin: 08/02/16 18:49 Dose: 40 unit Lisinopril (Zestril) 20 mg PO DAILY [facility] Last Admin: 08/04/16 09:19 Dose: 20 mg Lorazepam (Ativan) 2 mg PO AMHS [facility] PRN Reason: Protocol Last Admin: 08/04/16 09:19 Dose: 2 mg Metformin HCl (Glucophage) 1,000 mg PO BID [facility] Last Admin: 08/04/16 17:25 Dose: Not Given Metoprolol Tartrate (Lopressor) 50 mg PO BID [facility] Last Admin: 08/02/16 18:57 Dose: Not Given Montelukast Sodium (Singulair) 10 mg PO DAILY [facility] Last Admin: 08/04/16 09:17 Dose: 10 mg Dulera 100 Mcg/5 Mcg (Inhaler (Home Med)) 2 puff IH DAILY [facility] Last Admin: 08/04/16 09:24 Dose: Not Given Trazodone HCl (Desyrel) 200 mg PO [facility] Last Admin: 08/03/16 21:02 Dose: 200 mg Verapamil HCl (Calan Tab) 80 mg PO TID [facility] Last Admin: 08/02/16 18:43 Dose: Not Given Warfarin Sodium (Coumadin) 8 mg PO HS [facility] PRN Reason: Protocol Last Admin: 08/03/16 21:01 Dose: 8 mg - Labs Labs: PT 17.1 Seconds (9.9-11.8) H 08/01/16 18:15 INR 1.58 (0.93-1.08) H 08/01/16 18:15 APTT 26.2 Seconds (23.7-30.8) 08/01/16 18:15
--- NOTE | 2016-08-04 18:49 | PN ---
DATE: 08/04/2016 FOR CONSULTATION AND FOLLOWUP: Afib with rapid ventricular rate, now rate controlled. BRIEF CLINICAL HISTORY: A 56-year-old male, noncompliant with medication, morbid obesity, nonischemi c cardiomyopathy, atrial fibrillation, admitted with decompensated congestive heart failure and afib with rapid ventricular rate, now rate is well controlled. Denies any chest pain, shortness of breath , any palpitation. PHYSICAL EXAMINATION: VITAL SIGNS: Temperature afebrile, heart rate 101, blood pressure 113/73. HEENT: PERRLA. Extraocular muscles intact. NECK: Supple. No carotid bruits. No thyromegaly. CHEST: Clear to auscultation. HEART: S1, S2 regular. ABDOMEN: Soft. EXTREMITIES: Clubbing and cyanosis negative. LABORATORY DATA: Blood workup as follows: WBC 9.____ , hemoglobin 13.2, hematocrit 40.1. INR today is pending. IMPRESSION: Atrial fibrillation with rapid ventricular rate, morbid obesity, cardiomyopathy, mitral and tricuspid regurgitation, diabetes and noncompliance with the medication. RECOMMENDATION: Continue anticoagulation. Continue verapamil. Continue digoxin, continue metoprolo l. Emphasis made for compliance with medication. We will follow with you. Thank you, ____, for providing the opportunity in taking care of this patient. Tia Rajan MD cc: [id number] TT: 08/04/2016 18:49:11 Confirmation # [id number] Dictation # [id number] carla
== END 2016-08-04 18:30 | disposition left against medical advice (07) | DRG 309 ==
LOC: ED 17:57 → ERH 20:17 → 2RNO 22:29 → OBSVTOIN 08-02 15:41
PROVIDERS: ADMIT Internal Medicine Nephrology; ATTEND Internal Medicine Nephrology
DX: I48.2 Chronic atrial fibrillation (principal); I50.32 Chronic diastolic (congestive) heart failure; I42.9 Cardiomyopathy, unspecified; I11.0 Hypertensive heart disease with heart failure; E11.40 Type 2 diabetes mellitus with diabetic neuropathy, unspecified; Z68.41 Body mass index [BMI] 40.0-44.9, adult; I95.9 Hypotension, unspecified; E66.01 Morbid (severe) obesity due to excess calories; I73.9 Peripheral vascular disease, unspecified; J44.9 Chronic obstructive pulmonary disease, unspecified; Z91.14 Patient's other noncompliance with medication regimen; Z87.01 Personal history of pneumonia (recurrent); Z91.19 Patient's noncompliance with other medical treatment and regimen; Z79.899 Other long term (current) drug therapy; Z79.01 Long term (current) use of anticoagulants; Z72.0 Tobacco use; F10.10 Alcohol abuse, uncomplicated; E11.649 Type 2 diabetes mellitus with hypoglycemia without coma; E78.5 Hyperlipidemia, unspecified; F31.9 Bipolar disorder, unspecified; G47.33 Obstructive sleep apnea (adult) (pediatric); I08.1 Rheumatic disorders of both mitral and tricuspid valves; I25.10 Atherosclerotic heart disease of native coronary artery without angina pectoris; I27.2 Other secondary pulmonary hypertension; K21.9 Gastro-esophageal reflux disease without esophagitis; Z98.84 Bariatric surgery status; R20.0 Anesthesia of skin; R42 Dizziness and giddiness; F41.9 Anxiety disorder, unspecified; F32.89 Other specified depressive episodes; Z88.8 Allergy status to other drugs, medicaments and biological substances; Z91.018 Allergy to other foods; R40.2412 Glasgow coma scale score 13-15, at arrival to emergency department; I99.8 Other disorder of circulatory system

== ENCOUNTER 2016-08-14 18:24 | Inpatient (IN) | payer MEDICARE, OTHER ==
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
[2016-08-14 19:36] LABS: ADD MANUAL DIFF? NO
[2016-08-14 19:47] LABS: BASO # 0.03 K/mm3 (0.0-2.0); BASO % 0.3 % (0.0-3.0); EOS % 0.2 % (1.5-5.0); GRAN # 7.48 (1.4-6.5); GRAN % 81.5 % (50.0-68.0); HEMATOCRIT 42.1 % (42.0-52.0); LYMPH # 0.8 (1.2-3.4); LYMPH % 9.1 % (22.0-35.0); MEAN CELL VOLUME 85.6 fL (80.0-105.0); MEAN CORPUSCULAR HGB CONC 32.8 g/dl (31.0-37.0); MEAN PLATELET VOLUME 11.2 fl (7.0-11.0); MONO # 0.8 (0.1-0.6); MONO % 8.9 % (1.0-6.0); PLATELET COUNT 87 10^3/uL (120.0-450.0); RED CELL DISTRIBUTION WIDTH 16.6 % (11.5-14.5); WHITE BLOOD COUNT 9.2 10^3/ul (4.5-11.0)
[2016-08-14 19:53] LABS: INR 1.44 (0.93-1.08); PARTIAL THROMBOPLASTIN TIME 25.2 Seconds (23.7-30.8)
[2016-08-14 19:56] LABS: ALB/GLOB RATIO 1.2 (1.1-1.8); ALKALINE PHOSPHATASE 82 U/L (38-133); ALT/SGPT 659 U/L (7-56); AST/SGOT 237 U/L (15-59); BILIRUBIN,TOTAL 2.2 mg/dL (0.2-1.3); BLOOD UREA NITROGEN 25 mg/dL (7-21); CALCIUM 8.7 mg/dL (8.4-10.5); CARBON DIOXIDE 29 mmol/L (21-33); CHLORIDE 99 mmol/L (98-107); GFR AFRICAN-AMERICAN > 60; GLUCOSE,RANDOM 171 mg/dL (70-110); POTASSIUM 3.8 mmol/L (3.6-5.0); SODIUM 139 mmol/L (132-148); TOTAL PROTEIN 7.4 g/dL (5.8-8.3)
[2016-08-14 20:13] LABS: TROPONIN I 0.21 ng/mL
--- NOTE | 2016-08-14 20:54 | CT ---
EXAM: CT Chest Without Intravenous Contrast CLINICAL HISTORY: 56 years old, male; Injury or trauma; Fall; Initial encounter; Swelling (edema); Injury details: Left rib pain; Additional info: Fall, l. Rib pain TECHNIQUE: Axial computed tomography images of the chest without intravenous contrast. This CT exam was performed using one or more of the following dose reduction techniques: automated exposure control, adjustment of the mA and/or kV according to patient size, and/or use of iterative reconstruction technique. MIP reconstructed images were created and reviewed. Coronal and sagittal reformatted images were created and reviewed. EXAM DATE/TIME: 08/14/2016 6:48 PM COMPARISON: CT - CHEST W/O CONTRAST 02/26/2016 12:27:11 PM FINDINGS: Artifacts: There is streak artifact from a necklace. Motion artifact degrades image quality. Lungs and pleural spaces: Trachea and main bronchi are patent. There is a moderately large right pleural effusion. There is no left effusion. There are compressive atelectatic changes greatest in the right lower lobe. There is atelectasis and scarring at the left base. There are patchy parenchymal opacities in the lingula and left lower lobe. Heart and vasculature: Heart size is at the upper limits of normal.There is trace fluid in pericardial recesses.There are vascular calcifications.Aorta and main pulmonary artery are normal in caliber. Mediastinum: Esophagus is unremarkable. There no pathologically enlarged mediastinal nodes.Jossy are not optimally evaluated without contrast material. Thyroid: Thyroid is only partially imaged. Bones/joints: Bony structures are osteopenic with degenerative change. No acute displaced rib fractures are visualized. Soft tissues: unremarkable Upper abdomen: There are no acute abnormalities in the visualized portion of the abdomen. There is a 3.5 cm left adrenal nodule. Pancreas is atrophic and fatty replaced. IMPRESSION: Moderately large right pleural effusion with compressive atelectasis; patchy airspace disease greatest in the left lower lobe; no acute displaced rib fracture
[2016-08-14] MEDS: Enoxaparin 100 mg Syringe SC SCH (22:58)
[2016-08-14] MEDS: Insulin Reg-HIGH-Coverage SC SCH (23:45)
[2016-08-15 00:25] VITALS: BMI 42.0
[2016-08-15] MEDS ORDERED: Levalbuterol 1.25 MG/3 ML Inhal Soln UD IH STA (03:20)
--- NOTE | 2016-08-15 03:34 | CP.PCM.PN ---
Subjective - Date & Time of Evaluation Date of Evaluation: 08/15/16 Time of Evaluation: 03:11 - Subjective Subjective: Nurse Theron calls and tells that patient is complaining of sob, heart rate has been 127/min, pulse ox is between 88-90%. Patient was seen at bed side.Pulse ox is 92%. Patient complains of sob , feels nervous,anxious. Has no other complaints. Denies chest pain , sweating , palpitation, nausea. This 56 year old white male was admitted for sob, after he fell and contused his ribs. Has PMH of HTN, CHF, atrial fibrillation , COPD, obesity, GERD, gastric bypass, anxiety ,depression. Objective - Vital Signs/Intake and Output Vital Signs (last 24 hours): Temp Pulse Resp BP Pulse Ox 98.0 F 100 H 15 135/107 H 95 08/14/16 23:41 08/14/16 23:41 08/14/16 23:41 08/14/16 23:41 08/14/16 20:44 - Medications Medications: Current Medications Atorvastatin Calcium (Lipitor) 40 mg PO DIN [facility] Last Admin: 08/14/16 22:59 Dose: 40 mg Digoxin (Lanoxin) 0.125 mg PO 1400 [facility] Enoxaparin Sodium (Lovenox) 100 mg SC Q12H [facility] PRN Reason: Protocol Last Admin: 08/14/16 22:58 Dose: 100 mg Furosemide (Lasix) 40 mg PO BID [facility] Glimepiride (Amaryl) 4 mg PO DAILY [facility] Insulin Detemir (Levemir) 40 unit SC ACBD [facility] Insulin Human Regular (Humulin R High) 0 units SC ACHS [facility] PRN Reason: Protocol Last Admin: 08/14/16 23:45 Dose: Not Given Lisinopril (Zestril) 20 mg PO DAILY [facility] Lorazepam (Ativan) 2 mg PO AMHS [facility] PRN Reason: Protocol Last Admin: 08/14/16 22:58 Dose: 2 mg Metformin HCl (Glucophage) 1,000 mg PO BID [facility] Metoprolol Tartrate (Lopressor) 50 mg PO BID [facility] Last Admin: 08/14/16 22:58 Dose: 50 mg Montelukast Sodium (Singulair) 10 mg PO DAILY [facility] Trazodone HCl (Desyrel) 200 mg PO HS [facility] Last Admin: 08/14/16 23:30 Dose: 200 mg Verapamil HCl (Calan Tab) 80 mg PO TID [facility] Warfarin Sodium (Coumadin) 7.5 mg PO 1800 [facility] PRN Reason: Protocol - Labs Labs: PT 15.6 Seconds (9.9-11.8) H 08/14/16 19:10 INR 1.44 (0.93-1.08) H 08/14/16 19:10 APTT 25.2 Seconds (23.7-30.8) 08/14/16 19:10 - Constitutional Appears: Well - Head Exam Head Exam: ATRAUMATIC, NORMAL INSPECTION, NORMOCEPHALIC Additional comments: Obese person. - Eye Exam Eye Exam: Normal appearance - ENT Exam ENT Exam: Normal External Ear Exam - Neck Exam Neck Exam: Normal Inspection - Respiratory Exam Respiratory Exam: Decreased Breath Sounds (Right base.), Wheezes (Bilaterally.) , NORMAL BREATHING PATTERN. absent: Accessory Muscle Use, Rales, Rhonchi, Respiratory Distress, Stridor - Cardiovascular Exam Cardiovascular Exam: Irregular Rhythm - GI/Abdominal Exam GI & Abdominal Exam: absent: Distended - Rectal Exam Rectal Exam: Deferred - Extremities Exam Extremities Exam: Normal Inspection - Back Exam Back Exam: NORMAL INSPECTION - Neurological Exam Neurological Exam: Alert, Oriented x3 - Psychiatric Exam Psychiatric exam: Normal Affect, Normal Mood - Skin Skin Exam: Normal Color Assessment and Plan - Assessment and Plan (Free Text) Assessment: Dyspnea. Hypoxia. Atrial fibrillation with RVR. COPD. CHF. Anxiety. Depression. Hx gastric bypass surgery. Plan: CXR. Stat nebulizer treatment with Xopenex 1.25. Cardizem 10 mg IV stat. Ativan 0.5 mg IV STAT. continue present management.
--- NOTE | 2016-08-15 07:47 | RAD ---
HISTORY: sob COMPARISON: 08/14/2016 FINDINGS: LUNGS: No active pulmonary disease. PLEURA: No significant pleural effusion identified, no pneumothorax apparent. CARDIOVASCULAR: Normal. OSSEOUS STRUCTURES: No significant abnormalities. VISUALIZED UPPER ABDOMEN: Normal. OTHER FINDINGS: None. IMPRESSION: No active disease.
--- NOTE | 2016-08-15 07:48 | RAD ---
HISTORY: cough COMPARISON: 08/01/2016 FINDINGS: LUNGS: No active pulmonary disease. PLEURA: No significant pleural effusion identified, no pneumothorax apparent. CARDIOVASCULAR: Normal. OSSEOUS STRUCTURES: No significant abnormalities. VISUALIZED UPPER ABDOMEN: Normal. OTHER FINDINGS: None. IMPRESSION: No active disease.
[2016-08-15] MEDS: Insulin Reg-HIGH-Coverage SC SCH (08:38)
[2016-08-15] MEDS: Insulin Detemir 100 units/ml Vial (Levemir) SC SCH ×2 (08:53→17:37)
[2016-08-15] MEDS: Enoxaparin 100 mg Syringe SC SCH ×2 (09:09→21:52)
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
--- NOTE | 2016-08-15 13:28 | CP.PCM.PN ---
Subjective - Date & Time of Evaluation Date of Evaluation: 08/15/16 Time of Evaluation: 13:19 - Subjective Subjective: called by nurse to pt in 129 bed 1, pt is c/o not feeling good bp is 70 systolic and pulse ox is 92 , .pt has concentric hypertrophic cardiomyppathy and is admitted for fall also has mod pleural effusion.on ct chest. Objective - Vital Signs/Intake and Output Vital Signs (last 24 hours): Temp Pulse Resp BP Pulse Ox 97.7 F 99 H 26 H 159/83 H 93 L 08/15/16 10:00 08/15/16 10:08 08/15/16 10:08 08/15/16 09:35 08/15/16 10:08 - Medications Medications: Current Medications Atorvastatin Calcium (Lipitor) 40 mg PO DIN [facility] Last Admin: 08/14/16 22:59 Dose: 40 mg Digoxin (Lanoxin) 0.125 mg PO 1400 [facility] Enoxaparin Sodium (Lovenox) 100 mg SC Q12H [facility] PRN Reason: Protocol Last Admin: 08/15/16 09:09 Dose: 100 mg Furosemide (Lasix) 40 mg PO BID [facility] Last Admin: 08/15/16 09:15 Dose: 40 mg Glimepiride (Amaryl) 4 mg PO DAILY [facility] Last Admin: 08/15/16 09:18 Dose: 4 mg Insulin Detemir (Levemir) 40 unit SC ACBD [facility] Last Admin: 08/15/16 08:53 Dose: 40 unit Insulin Human Regular (Humulin R High) 0 units SC ACHS [facility] PRN Reason: Protocol Last Admin: 08/15/16 08:38 Dose: Not Given Lisinopril (Zestril) 20 mg PO DAILY [facility] Last Admin: 08/15/16 09:19 Dose: 20 mg Lorazepam (Ativan) 2 mg PO AMHS [facility] PRN Reason: Protocol Last Admin: 08/15/16 09:16 Dose: 2 mg Metformin HCl (Glucophage) 1,000 mg PO BID [facility] Last Admin: 08/15/16 09:18 Dose: 1,000 mg Metoprolol Tartrate (Lopressor) 50 mg PO BID [facility] Last Admin: 08/15/16 09:16 Dose: 50 mg Montelukast Sodium (Singulair) 10 mg PO HS [facility] Trazodone HCl (Desyrel) 200 mg PO HS [facility] Last Admin: 08/14/16 23:30 Dose: 200 mg Verapamil HCl (Calan Tab) 80 mg PO TID [facility] Last Admin: 08/15/16 09:35 Dose: 80 mg Warfarin Sodium (Coumadin) 7.5 mg PO 1800 [facility] PRN Reason: Protocol - Labs Labs: PT 15.6 Seconds (9.9-11.8) H 08/14/16 19:10 INR 1.44 (0.93-1.08) H 08/14/16 19:10 APTT 25.2 Seconds (23.7-30.8) 08/14/16 19:10 - Constitutional Appears: In Acute Distress - Head Exam Head Exam: NORMOCEPHALIC - Eye Exam Pupil Exam: PERRL - ENT Exam ENT Exam: Mucous Membranes Moist - Neck Exam Neck Exam: Full ROM - Respiratory Exam Respiratory Exam: Decreased Breath Sounds, Rales - Cardiovascular Exam Cardiovascular Exam: RRR, +S1, +S2 - GI/Abdominal Exam GI & Abdominal Exam: Soft - Rectal Exam Rectal Exam: Deferred - Extremities Exam Extremities Exam: Full ROM, Pedal Edema - Neurological Exam Neurological Exam: Awake, CN II-XII Intact, Oriented x3 - Psychiatric Exam Psychiatric exam: Depressed - Skin Skin Exam: Warm Assessment and Plan - Assessment and Plan (Free Text) Assessment: congestive heart failure hypertrophic / EF last 45%. rt pleural effusion moderate. s/p fall(mechanism of fall not clear. pt does not communicate properly. hypoxia . hypotension. Plan: pt was given NS 250cc by dr chester.bp increased to 92 systolic. abg stat . icu evaluation as per dr chester. pt discussed with dr goodson.
[2016-08-15 13:59] LABS: ARTERIAL BLOOD GAS HCO3 27.7 mmol/L (21-28); ARTERIAL BLOOD GAS PH 7.31 (7.35-7.45)
[2016-08-15] MEDS ORDERED: Digoxin 125 mcg (0.125 mg) Tab PO SCH (14:00)
--- NOTE | 2016-08-15 14:04 | HP ---
CHIEF COMPLAINT AND HISTORY OF PRESENT ILLNESS: This is a 56-year-old male who is coming into the [facility] with palpitations. He has atrial fibrillation with rapid rate. He was given IV medications i n the Emergency Room. He has a history of noncompliance. He states that he had tripped and hit his left side of his chest. He started having chest pain, so he came in further evaluation. The patient had a CT of the chest that was done and was not found to have significant trauma. There was a moder ately large right pleural effusion with compression atelectasis, patchy airspace disease, greatest in the left lower lobe. The patient says the pain was 6/10. He says he is feeling better. His heart rate is better as well. He has no shortness of breath. He has no nausea, no vomiting, no dysuria or frequency. He says he has been trying to follow up with EPS, but has not been able to do so. REVIEW OF SYSTEMS: All other review of systems is within normal limits. He has dizziness, no fevers , no chills. ALLERGIES: QUETIAPINE. PAST MEDICAL HISTORY: 1. Atrial fibrillation, on Coumadin. 2. Noncompliance. 3. Diabetic neuropathy. 4. Diabetes type 2. 5. Hypertension. 6. COPD. 7. Left leg ischemia, status post thrombectomy. 8. Dyslipidemia. 9. Obesity. 10. CHF secondary to diastolic dysfunction. FAMILY HISTORY: Father of liver disease in his 60s. Mother at 52. SOCIAL HISTORY: The patient does not smoke or drink. He quit smoking about 20 years ago. HOME MEDICATIONS: Have been reviewed. PHYSICAL EXAMINATION: VITAL SIGNS: Temperature is 98.6, pulse of 110, respirations 16, O2 saturation is 100%. BMI is 42. GENERAL: Patient lying in bed, flat, and in no apparent distress. HEAD AND NECK EXAM: Atraumatic, normocephalic. Conjunctivae are pink. Throat clear and mouth with moist mucosa. Oropharynx benign. EYES: Extraocular movements are intact. PERRLA. NECK: Supple. No JVD, thyromegaly, or adenopathy. No bruits. HEART: S1 and S2 tachycardia, irregular. No murmurs. LUNGS: Clear to auscultation bilaterally. No wheezing rales or rhonchi appreciated. No retraction s on exam. ABDOMEN: Soft, nontender, nondistended. Bowel sounds are positive in all quadrants. No rebound. No hepatosplenomegaly. EXTREMITIES: No cyanosis, clubbing, or edema. NEURO: No facial asymmetry, tongue is midline, no uvula deviation. Power is 5/5 in upper extremity and 5/5 in lower extremity. Sensation is normal in upper extremity and lower extremity. PSYCH: Awake, alert, oriented x3. No anxiety or depression symptoms. Good insight. Normal affec t. : No CVA tenderness VASCULAR: 2+ pulses in carotid and pedal pulses. SKIN: No erythema or abnormal nodules noted. SPINE: Normal curvature. LYMPHADENOPATHY: No anterior cervical or posterior cervical adenopathy. No inguinal adenopathy. LABORATORY DATA: Have been reviewed. ASSESSMENT: 1. Atrial fibrillation with rapid rate. 2. Diabetic neuropathy. 3. Diabetes type 2. 4. Hypertension. 5. Chronic obstructive pulmonary disease. 6. Pleural effusion. 7. Dyslipidemia. 8. Obesity with a body mass index of 42. 9. Congestive heart failure secondary to diastolic dysfunction. PLAN: The patient is going to be admitted to the hospital. He is going to continue his Levemir for his diabetes. I will get Dr. Godinez and Dr. Rajan to evaluate the patient. He is going to be on Card izem. He is going to continue his Coumadin. He is going to be on nebulizer treatments as needed. Audrey painter continues to be noncompliant, although he has been told multiple times to try to followup. He has not been able to do so. We will continue with sliding scale. Overall prognosis is guarded. He has frequent admissions. Axel Villagomez MD cc: [id number] TT: 08/15/2016 14:03:39 ok
[2016-08-15] MEDS ORDERED: Vancomycin 1gm in NS 250ml 1 GM/250 ML BAG IVPB STA (14:15)
[2016-08-15 14:35] LABS: ADD MANUAL DIFF? NO
[2016-08-15 14:45] LABS: BASO # 0.07 K/mm3 (0.0-2.0); BASO % 0.7 % (0.0-3.0); EOS # 0.1 (0.0-0.7); EOS % 1.2 % (1.5-5.0); GRAN # 6.52 (1.4-6.5); GRAN % 65.4 % (50.0-68.0); HEMATOCRIT 44.9 % (42.0-52.0); LYMPH # 1.8 (1.2-3.4); LYMPH % 17.6 % (22.0-35.0); MEAN CELL VOLUME 88.2 fL (80.0-105.0); MEAN CORPUSCULAR HEMOGLOBIN 27.9 pg (25.0-35.0); MEAN CORPUSCULAR HGB CONC 31.6 g/dl (31.0-37.0); MEAN PLATELET VOLUME 11.2 fl (7.0-11.0); MONO # 1.5 (0.1-0.6); MONO % 15.1 % (1.0-6.0); PLATELET COUNT 88 10^3/uL (120.0-450.0); RED CELL DISTRIBUTION WIDTH 17.2 % (11.5-14.5)
--- NOTE | 2016-08-15 14:54 | RAD ---
HISTORY: pneumothorax COMPARISON: 08/15/2016 3:53 a.m. FINDINGS: LUNGS: No active pulmonary disease. PLEURA: No significant pleural effusion identified, no pneumothorax apparent. CARDIOVASCULAR: Normal. OSSEOUS STRUCTURES: No significant abnormalities. VISUALIZED UPPER ABDOMEN: Normal. OTHER FINDINGS: None. IMPRESSION: No active disease.
[2016-08-15] MEDS ORDERED: DOBUTamine 500mg/250ml D5W 500 MG/250 ML BAG IV PRN ×2 (14:57→15:17)
[2016-08-15 16:05] LABS: ALB/GLOB RATIO 1.3 (1.1-1.8); ALKALINE PHOSPHATASE 60 U/L (38-133); ALT/SGPT 395 U/L (7-56); AST/SGOT 114 U/L (15-59); BILIRUBIN,TOTAL 1.8 mg/dL (0.2-1.3); BLOOD UREA NITROGEN 25 mg/dL (7-21); CALCIUM 7.9 mg/dL (8.4-10.5); CARBON DIOXIDE 23 mmol/L (21-33); CHLORIDE 103 mmol/L (98-107); GFR AFRICAN-AMERICAN > 60; GLUCOSE,RANDOM 161 mg/dL (70-110); SODIUM 137 mmol/L (132-148); TOTAL PROTEIN 5.9 g/dL (5.8-8.3)
[2016-08-15 16:09] LABS: POTASSIUM 4.3 mmol/L (3.6-5.0)
--- NOTE | 2016-08-15 16:17 | US ---
HISTORY: Leg pain and swelling. Evaluate for DVT PHYSICIAN(S): John Paul Cannon MD. TECHNIQUE: Duplex sonography and color-flow Doppler with graded compression were used to evaluate the deep venous systems of both lower extremities. The exam is extremely limited by body habitus and edema. The lower femoral veins and tibial veins are not well seen. FINDINGS: The visualized deep venous systems of both lower extremities are sonographically normal and compressible. Normal wave forms and augmentation are seen. There is no sonographic evidence for deep venous thrombosis in the visualized segments of both lower extremities. IMPRESSION: No sonographic evidence for deep venous thrombosis in the visualized segments of both lower extremities. Very limited study.
[2016-08-15] MEDS: MethylPREDNISolone 40 mg Vial IVP SCH ×2 (16:49→23:28)
[2016-08-15] MEDS: Nystatin 100,000 Units/gm Topical Pow(15 gm) TOP SCH (16:51)
[2016-08-15 16:53] LABS: VENOUS BLOOD GAS BASE EXCESS -0.7 mmol/L (0.0-2.0); VENOUS BLOOD PH 7.26 (7.32-7.43)
[2016-08-15] MEDS: Insulin Reg-MEDIUM-Coverage SC SCH ×2 (17:00→20:31)
--- NOTE | 2016-08-15 19:00 | US ---
HISTORY: cholecystitis COMPARISON: CT abdomen and pelvis with contrast performed 10/22/15 TECHNIQUE: Sonographic evaluation of the abdomen. FINDINGS: LIVER: Measures 20.7 cm in sagittal dimension. Echogenic liver may be seen in setting of hepatic parenchymal disease or fatty infiltration. No focal hepatic mass identified. The main portal vein appears patent with normal directional flow. No intrahepatic bile duct dilatation. Ascites. GALLBLADDER: Gallbladder wall thickening measuring up to 9 mm. No gallstones. Negative sonographic Aviles's sign as assessed by the saw straightener. COMMON BILE DUCT: Measures 7 mm. PANCREAS: Not well visualized. RIGHT KIDNEY: Measures 11.2 x 5.9 x 6.9 cm. No obstructing calculus or hydronephrosis identified. LEFT KIDNEY: Measures 11.6 x 6.2 x 5.9 cm. No obstructing calculus or hydronephrosis identified. SPLEEN: Measures approximately 13.7 cm. AORTA: Not adequately visualized. IVC: Not adequately visualized. OTHER FINDINGS: None. IMPRESSION: Suboptimal examination markedly limited by habitus and bowel gas. Hepatomegaly. Echogenic liver may be seen in setting of hepatic parenchymal disease or fatty infiltration. Ascites. Splenomegaly. Marked gallbladder wall thickening. No definite gallstones. Negative sonographic Aviles's sign as assessed by the saw straightener. Correlate clinically. Dilated common bile duct. Given limitations of the study, recommend CT of the abdomen and pelvis for further evaluation.
[2016-08-15] MEDS: Albuterol-Ipratrop 3 mg / 0.5 (3 ml) UD IH SCH (19:37)
[2016-08-15 21:46] LABS: ARTERIAL BLOOD GAS HCO3 25.4 mmol/L (21-28); ARTERIAL BLOOD GAS PH 7.41 (7.35-7.45)
[2016-08-15] MEDS: Cefepime 1gm in NS 100ml 1 GM/100 ML BAG IVPB SCH (21:51)
--- NOTE | 2016-08-16 01:17 | CARD ---
APPROVED REPORT EXAM: Two-dimensional and M-mode echocardiogram with Doppler and color Doppler. INDICATION Chest Pain NSTEMI 2D DIMENSIONS Left Atrium (2D)4.6 (1.6-4.0cm)IVSd1.0 (0.7-1.1cm) LVDd5.6 (3.9-5.9cm)PWd1.1 (0.7-1.1cm) LVDs5.0 (2.5-4.0cm)FS (%) 11.3 % LVEF (%)24.4 (>50%) M-Mode DIMENSIONS Aortic Root2.40 (2.2-3.7cm)Aortic Cusp Exc.0.90 (1.5-2.0cm) Aortic Valve AoV Peak Xzyfryjt15.3cm/Susan Peak GR.3mmHg Mitral Valve E/A ratio0.0 TDI E/Lateral E'0.0E/Medial E'0.0 Tricuspid Valve TR Peak [id number] Peak Gr.21mmHg [id number] LEFT VENTRICLE The Left Ventricle is mildly dilated. There is normal left ventricular wall thickness. The systolic function is severely impaired. Akinetic septum No left ventricle thrombus noted on this study. RIGHT VENTRICLE The right ventricle is moderately dilated. There is normal right ventricular wall thickness. RV Systolic function is severely reduced. ATRIA The left atrium is moderately dilated. The right atrium is moderately dilated. AORTIC VALVE The aortic valve is not well visualized. MITRAL VALVE The mitral valve is not well visualized. TRICUSPID VALVE There is no pulmonary hypertension. GREAT VESSELS The IVC collapses <50% with inspiration. <Conclusion> The Left Ventricle is mildly dilated. There is normal left ventricular wall thickness. The systolic function is severely impaired. Akinetic septum The right ventricle is moderately dilated. RV Systolic function is severely reduced.
--- NOTE | 2016-08-16 01:32 | CARD ---
APPROVED REPORT EKG Measurement Heart [id number] <Conclusion> Atrial fibrillation Low voltage QRS Nonspecific T wave abnormality, probably digitalis effect Abnormal ECG
--- NOTE | 2016-08-16 01:45 | CARD ---
APPROVED REPORT EKG Measurement Heart [id number] <Conclusion> Atrial fibrillation with rapid ventricular response Low voltage QRS Septal infarct, age undetermined Abnormal ECG
--- NOTE | 2016-08-16 01:46 | CARD ---
APPROVED REPORT EKG Measurement Heart [id number] <Conclusion> Atrial fibrillation with rapid ventricular response with premature ventricular or aberrantly conducted complexes Low voltage QRS Cannot rule out Anteroseptal infarct, age undetermined Abnormal ECG
[2016-08-16] MEDS: Albuterol-Ipratrop 3 mg / 0.5 (3 ml) UD IH SCH ×7 (04:06→23:21)
[2016-08-16 06:01] LABS: ADD MANUAL DIFF? NO
[2016-08-16 06:21] LABS: BASO # 0.01 K/mm3 (0.0-2.0); BASO % 0.1 % (0.0-3.0); GRAN # 6.44 (1.4-6.5); GRAN % 87.1 % (50.0-68.0); HEMATOCRIT 41.6 % (42.0-52.0); LYMPH # 0.6 (1.2-3.4); LYMPH % 8.7 % (22.0-35.0); MEAN CORPUSCULAR HEMOGLOBIN 27.7 pg (25.0-35.0); MEAN CORPUSCULAR HGB CONC 32.2 g/dl (31.0-37.0); MONO # 0.3 (0.1-0.6); MONO % 4.1 % (1.0-6.0); PLATELET COUNT 103 10^3/uL (120.0-450.0); WHITE BLOOD COUNT 7.4 10^3/ul (4.5-11.0)
[2016-08-16 06:22] LABS: ALB/GLOB RATIO 1.3 (1.1-1.8); ALKALINE PHOSPHATASE 62 U/L (38-133); ALT/SGPT 363 U/L (7-56); AST/SGOT 81 U/L (15-59); BILIRUBIN,TOTAL 1.4 mg/dL (0.2-1.3); BLOOD UREA NITROGEN 28 mg/dL (7-21); CALCIUM 8.3 mg/dL (8.4-10.5); CARBON DIOXIDE 28 mmol/L (21-33); CHLORIDE 102 mmol/L (98-107); GFR AFRICAN-AMERICAN > 60; GLUCOSE,RANDOM 106 mg/dL (70-110); MAGNESIUM 1.7 mg/dL (1.7-2.2); PHOSPHOROUS 3.7 mg/dL (2.5-4.5); POTASSIUM 3.5 mmol/L (3.6-5.0); SODIUM 140 mmol/L (132-148); TOTAL PROTEIN 6.1 g/dL (5.8-8.3)
[2016-08-16 06:37] LABS: TROPONIN I 0.11 ng/mL
[2016-08-16] MEDS ORDERED: Potassium Chloride 20 mEq ER Tab PO ONE (06:55)
[2016-08-16] MEDS ORDERED: Amiodarone 150 mg/D5W 100 ml 150 MG/100 ML BAG IVPB ONE (07:08)
[2016-08-16] MEDS ORDERED: Amiodarone 360 mg/D5W 200 ml 360 MG/200 ML BAG IV SCH (07:15)
[2016-08-16] MEDS ORDERED: DOBUTamine 500mg/250ml D5W 500 MG/250 ML BAG IV PRN ×2 (07:42→10:11)
--- NOTE | 2016-08-16 07:47 | CP.CCUPN ---
Addendum entered and electronically signed by Jammie Ford DO 08/16/16 15:42: Pt asking to get out of bed to sit in chair to watch TV-explained to pt that it is not safe at this point for him to do so as his BP is still very low and he is currently on multiple cardiac medications. Jammie Ford, PGY-1 Addendum entered and electronically signed by Jammie Ford DO 08/16/16 14:31: Milrinone started. PICC line placed. Will administered Lovenox that was held this AM now. Original Note: <Jammie Ford - Last Filed: 08/16/16 14:31> CCU Subjective - Physician Review Events Since Last Encounter (Free Text): 08/16/16 07:43 BiPap overnight until 5AM, dobutex stopped overnight due to Afib w/RVR- HR 130- 140's, cardizem given. Subjective (Free Text): 08/16/16 07:44 Critical care progress note for Dr. Hernandez-Jammie Ford, PGY-1 Pt S & E at bedside. Pt reports SOB improved overnight, improved chest tightness. Denies N/V/F/C, CP , abdominal pain, LE pain (resolved since yesterday). Is tolerating diet. CCU Objective - Vital Signs / Intake & Output Vital Signs (Last 4 hours): Vital Signs Temp Pulse Resp BP Pulse Ox 08/16/16 06:00 112 H 18 96/69 L 96 08/16/16 05:45 128 H 124/83 08/16/16 05:00 139 H 124/83 98 08/16/16 04:04 94 H 08/16/16 04:00 99.2 F 111 H 18 121/71 96 Intake and Output (Last 8hrs): Intake & Output 08/15/16 08/16/16 08/16/16 22:59 06:59 14:59 Intake Total 2000 548 Output Total 575 2300 Balance 1425 -1752 Weight 123.377 kg Intake: IV 1200 398 Right Hand 1200 398 Oral 800 150 Output: Urine 575 2300 Urine, Voided 575 2300 Other: Voiding Method Urinal # Bowel Movements 0 1 - Physical Exam Head: Positive for: Atraumatic, Normocephalic Pupils: Positive for: PERRL Extroacular Muscles: Positive for: EOMI Conjunctiva: Positive for: Normal Ears: Positive for: Normal Mouth: Positive for: Moist Mucous Membranes Nose (External): Positive for: Atraumatic Neck: Positive for: Normal Range of Motion Respiratory/Chest: Positive for: Wheezes (mild B/L), Decreased Breath Sounds. Negative for: Clear to Auscultation, Respiratory Distress, Accessory Muscle Use , Rales, Retracting, Rhonchi, Tachypneic Cardiovascular: Positive for: Irregular Rhythm Abdomen: Positive for: Normal Bowel Sounds. Negative for: Tenderness, Distention (obese), Peritoneal Signs Upper Extremity: Positive for: Normal Inspection, Capillary Refill < 2s. Negative for: Cyanosis, Edema Lower Extremity: Positive for: Edema (3+ pitting B/L). Negative for: Normal Inspection, Tenderness, Erythema Neurological: Positive for: GCS=15, CN II-XII Intact, Speech Normal. Negative for: Norm Deep Tendon Reflexes Skin: Positive for: Warm, Dry. Negative for: Rashes Psychiatric: Positive for: Alert, Oriented x 3, Normal Insight, Normal Concentration - Medications Active Medications: Active Medications Generic Name Dose Route Start Last Admin Trade Name Freq PRN Reason Stop Dose Admin Albuterol/Ipratropium 3 ml 08/15/16 19:30 08/16/16 04:06 Duoneb 3 Mg/0.5 Mg (3 Ml) Ud IH 3 ml [id number] [facility] Administration Atorvastatin Calcium 40 mg 08/14/16 21:45 08/14/16 22:59 Lipitor PO 40 mg DIN [facility] Administration Digoxin 0.125 mg 08/15/16 14:00 08/15/16 16:52 Lanoxin PO Not Given 1400 [facility] Enoxaparin Sodium 100 mg 08/14/16 21:45 08/15/16 21:52 Lovenox SC 100 mg Q12H [facility] Administration Protocol Furosemide 40 mg 08/15/16 10:00 08/15/16 09:15 Lasix PO 40 mg BID [facility] Administration Furosemide 40 mg 08/15/16 22:00 08/15/16 21:52 Lasix IVP 40 mg Q12 [facility] Administration Glimepiride 4 mg 08/15/16 10:00 08/15/16 09:18 Amaryl PO 4 mg DAILY [facility] Administration Cefepime HCl 1 gm in 100 mls @ 100 mls/hr 08/15/16 22:00 08/15/16 21:51 Maxipime 1gm IVPB 100 mls/hr Q12 [facility] Administration Protocol Amiodarone HCl/Dextrose 360 mg in 200 mls @ 33.333 mls/hr 08/16/16 07:15 Nexterone 360 Mg In D5w 200 Ml (Premix) IV .Q6H [facility] Protocol 1 MG/MIN Dobutamine HCl/Dextrose 500 mg in 250 mls @ 18.507 mls/hr 08/16/16 07:42 Dobutamine/Dextrose 5% 500mg/250ml IV .[id number] PRN TITRATE PER PROTOCOL Protocol 5 MCG/KG/MIN Insulin Detemir 40 unit 08/15/16 07:30 08/15/16 17:37 Levemir SC 40 unit ACBD [facility] Administration Insulin Human Regular 0 units 08/15/16 16:00 08/16/16 00:00 Humulin R Med SC Not Given Q4 [facility] Protocol Lisinopril 20 mg 08/15/16 15:24 Zestril PO DAILY [facility] Lorazepam 2 mg 08/14/16 22:00 08/15/16 18:41 Ativan PO 2 mg AMHS [facility] Administration Protocol Metformin HCl 1,000 mg 08/15/16 10:00 08/15/16 09:18 Glucophage PO 1,000 mg BID [facility] Administration Methylprednisolone 40 mg 08/15/16 15:45 08/15/16 23:28 Solu-Medrol IVP 40 mg Q8H [facility] Administration Metoprolol Tartrate 50 mg 08/14/16 21:45 08/15/16 09:16 Lopressor PO 50 mg BID [facility] Administration Montelukast Sodium 10 mg 08/15/16 22:00 08/15/16 21:53 Singulair PO 10 mg HS [facility] Administration Mupirocin 0 gm 08/15/16 18:00 08/15/16 18:00 Bactroban Ointment TOP 1 applic BID [facility] Administration Nystatin 0 gm 08/15/16 16:30 08/15/16 16:51 Nystop Topical Powder TOP 1 appl Q12H [facility] Administration Potassium Chloride 40 meq 08/16/16 07:00 Potassium Chloride Oral Soln PO 08/16/16 10:01 Q3H [facility] Trazodone HCl 200 mg 08/14/16 22:00 08/15/16 21:53 Desyrel PO 200 mg HS [facility] Administration Verapamil HCl 80 mg 08/15/16 15:24 08/15/16 17:36 Calan Tab PO 80 mg TID [facility] Administration Warfarin Sodium 7.5 mg 08/15/16 18:00 08/15/16 17:36 Coumadin PO 7.5 mg 1800 [facility] Administration Protocol - Patient Studies Lab Studies: Lab Studies 08/16/16 08/16/16 08/16/16 Range/Units 05:30 05:30 05:30 WBC 7.4 D (4.5-11.0) 10^3/ul RBC 4.84 (3.5-6.1) 10^6/uL Hgb 13.4 L (14.0-18.0) gm/dL Hct 41.6 L (42.0-52.0) % MCV 86.0 (80.0-105.0) fL MCH 27.7 (25.0-35.0) pg MCHC 32.2 (31.0-37.0) g/dl RDW 17.0 H (11.5-14.5) % Plt Count 103 L (120.0-450.0) 10^3/uL MPV 11.0 (7.0-11.0) fl Gran % 87.1 H (50.0-68.0) % Lymph % (Auto) 8.7 L (22.0-35.0) % Leslie % (Auto) 4.1 (1.0-6.0) % Eos % (Auto) 0.0 L (1.5-5.0) % Baso % (Auto) 0.1 (0.0-3.0) % Gran # 6.44 (1.4-6.5) Lymph # 0.6 L (1.2-3.4) Leslie # 0.3 (0.1-0.6) Eos # 0.0 (0.0-0.7) Baso # 0.01 (0.0-2.0) K/mm3 D-Dimer, Quantitative (0-0.50) mg/L FEU pCO2 (35-45) mm/Hg pO2 (80-100) mm/Hg HCO3 (21-28) mmol/L ABG pH (7.35-7.45) ABG Total CO2 (22-28) mmol.L ABG O2 Saturation (95-98) % ABG Base Excess (-2.0-3.0) mmol/L ABG Potassium (3.6-5.2) mmol/L VBG pH (7.32-7.43) VBG pCO2 (40-60) VBG HCO3 (21-28) mmol/l VBG Total CO2 (22-28) mmol.L VBG O2 Sat (Calc) (40-65) % VBG Base Excess (0.0-2.0) mmol/L VBG Potassium (3.6-5.2) mmol/L Sodium 140 (132-148) mmol/L Chloride 102 (98-107) mmol/L Glucose (75-110) mg/dl Lactate (0.7-2.1) mmol/L FiO2 % Potassium 3.5 L (3.6-5.0) mmol/L Carbon Dioxide 28 (21-33) mmol/L Anion Gap 14 (10-20) BUN 28 H (7-21) mg/dL Creatinine 1.3 (0.5-1.4) mg/dL Est GFR ( Amer) > 60 Est GFR (Non-Af Amer) 57 POC Glucose (mg/dL) (65-110) mg/dL Random Glucose 106 (70-110) mg/dL Calcium 8.3 L (8.4-10.5) mg/dL Phosphorus 3.7 (2.5-4.5) mg/dL Magnesium 1.7 (1.7-2.2) mg/dL Total Bilirubin 1.4 H (0.2-1.3) mg/dL AST 81 H (15-59) U/L ALT 363 H (7-56) U/L Alkaline Phosphatase 62 (38-133) U/L Lactate Dehydrogenase 546 (333-699) U/L Total Creatine Kinase 74 (35-230) U/L Troponin I 0.11 D ng/mL NT-Pro-B Natriuret Pep (0-450) pg/mL Total Protein 6.1 (5.8-8.3) g/dL Albumin 3.4 (3.0-4.8) g/dL Globulin 2.7 gm/dL Albumin/Globulin Ratio 1.3 (1.1-1.8) Procalcitonin (0.19-0.49) NG/ML TSH 3rd Generation 2.39 (0.46-4.68) mIU/mL Arterial Blood Potassium (3.6-5.2) mmol/L Venous Blood Potassium (3.6-5.2) mmol/L 08/16/16 08/16/16 08/15/16 Range/Units 04:08 00:15 21:15 WBC (4.5-11.0) 10^3/ul RBC (3.5-6.1) 10^6/uL Hgb (14.0-18.0) gm/dL Hct (42.0-52.0) % MCV (80.0-105.0) fL MCH (25.0-35.0) pg MCHC (31.0-37.0) g/dl RDW (11.5-14.5) % Plt Count (120.0-450.0) 10^3/uL MPV (7.0-11.0) fl Gran % (50.0-68.0) % Lymph % (Auto) (22.0-35.0) % Leslie % (Auto) (1.0-6.0) % Eos % (Auto) (1.5-5.0) % Baso % (Auto) (0.0-3.0) % Gran # (1.4-6.5) Lymph # (1.2-3.4) Leslie # (0.1-0.6) Eos # (0.0-0.7) Baso # (0.0-2.0) K/mm3 D-Dimer, Quantitative (0-0.50) mg/L FEU pCO2 40 (35-45) mm/Hg pO2 96.0 (80-100) mm/Hg HCO3 25.4 (21-28) mmol/L ABG pH 7.41 (7.35-7.45) ABG Total CO2 26.6 (22-28) mmol.L ABG O2 Saturation 97.7 (95-98) % ABG Base Excess 0.7 (-2.0-3.0) mmol/L ABG Potassium (3.6-5.2) mmol/L VBG pH (7.32-7.43) VBG pCO2 (40-60) VBG HCO3 (21-28) mmol/l VBG Total CO2 (22-28) mmol.L VBG O2 Sat (Calc) (40-65) % VBG Base Excess (0.0-2.0) mmol/L VBG Potassium (3.6-5.2) mmol/L Sodium (132-148) mmol/L Chloride 106.0 (98-107) mmol/L Glucose 139 H (75-110) mg/dl Lactate 1.1 (0.7-2.1) mmol/L FiO2 % Potassium (3.6-5.0) mmol/L Carbon Dioxide (21-33) mmol/L Anion Gap (10-20) BUN (7-21) mg/dL Creatinine (0.5-1.4) mg/dL Est GFR ( Amer) Est GFR (Non-Af Amer) POC Glucose (mg/dL) 106 122 H (65-110) mg/dL Random Glucose (70-110) mg/dL Calcium (8.4-10.5) mg/dL Phosphorus (2.5-4.5) mg/dL Magnesium (1.7-2.2) mg/dL Total Bilirubin (0.2-1.3) mg/dL AST (15-59) U/L ALT (7-56) U/L Alkaline Phosphatase (38-133) U/L Lactate Dehydrogenase (333-699) U/L Total Creatine Kinase (35-230) U/L Troponin I ng/mL NT-Pro-B Natriuret Pep (0-450) pg/mL Total Protein (5.8-8.3) g/dL Albumin (3.0-4.8) g/dL Globulin gm/dL Albumin/Globulin Ratio (1.1-1.8) Procalcitonin (0.19-0.49) NG/ML TSH 3rd Generation (0.46-4.68) mIU/mL Arterial Blood Potassium (3.6-5.2) mmol/L Venous Blood Potassium (3.6-5.2) mmol/L 08/15/16 08/15/16 08/15/16 Range/Units 20:30 16:46 15:40 WBC (4.5-11.0) 10^3/ul RBC (3.5-6.1) 10^6/uL Hgb (14.0-18.0) gm/dL Hct (42.0-52.0) % MCV (80.0-105.0) fL MCH (25.0-35.0) pg MCHC (31.0-37.0) g/dl RDW (11.5-14.5) % Plt Count (120.0-450.0) 10^3/uL MPV (7.0-11.0) fl Gran % (50.0-68.0) % Lymph % (Auto) (22.0-35.0) % Leslie % (Auto) (1.0-6.0) % Eos % (Auto) (1.5-5.0) % Baso % (Auto) (0.0-3.0) % Gran # (1.4-6.5) Lymph # (1.2-3.4) Leslie # (0.1-0.6) Eos # (0.0-0.7) Baso # (0.0-2.0) K/mm3 D-Dimer, Quantitative (0-0.50) mg/L FEU pCO2 (35-45) mm/Hg pO2 32 (80-100) mm/Hg HCO3 (21-28) mmol/L ABG pH (7.35-7.45) ABG Total CO2 (22-28) mmol.L ABG O2 Saturation (95-98) % ABG Base Excess (-2.0-3.0) mmol/L ABG Potassium (3.6-5.2) mmol/L VBG pH 7.26 L (7.32-7.43) VBG pCO2 62.0 H (40-60) VBG HCO3 27.8 (21-28) mmol/l VBG Total CO2 29.7 H (22-28) mmol.L VBG O2 Sat (Calc) 58.5 (40-65) % VBG Base Excess -0.7 L (0.0-2.0) mmol/L VBG Potassium 4.6 (3.6-5.2) mmol/L Sodium 139.0 137 (132-148) mmol/L Chloride 104.0 103 (98-107) mmol/L Glucose 165 H (75-110) mg/dl Lactate 3.7 H (0.7-2.1) mmol/L FiO2 21.0 % Potassium 4.3 (3.6-5.0) mmol/L Carbon Dioxide 23 (21-33) mmol/L Anion Gap 15 (10-20) BUN 25 H (7-21) mg/dL Creatinine 1.4 (0.5-1.4) mg/dL Est GFR ( Amer) > 60 Est GFR (Non-Af Amer) 52 POC Glucose (mg/dL) 158 H (65-110) mg/dL Random Glucose 161 H (70-110) mg/dL Calcium 7.9 L (8.4-10.5) mg/dL Phosphorus (2.5-4.5) mg/dL Magnesium (1.7-2.2) mg/dL Total Bilirubin 1.8 H (0.2-1.3) mg/dL AST 114 H (15-59) U/L ALT 395 H (7-56) U/L Alkaline Phosphatase 60 (38-133) U/L Lactate Dehydrogenase (333-699) U/L Total Creatine Kinase 187 (35-230) U/L Troponin I 0.20 H* ng/mL NT-Pro-B Natriuret Pep 41179 H (0-450) pg/mL Total Protein 5.9 (5.8-8.3) g/dL Albumin 3.3 (3.0-4.8) g/dL Globulin 2.6 gm/dL Albumin/Globulin Ratio 1.3 (1.1-1.8) Procalcitonin (0.19-0.49) NG/ML TSH 3rd Generation (0.46-4.68) mIU/mL Arterial Blood Potassium (3.6-5.2) mmol/L Venous Blood Potassium 4.6 (3.6-5.2) mmol/L 08/15/16 08/15/16 08/15/16 Range/Units 14:20 14:20 14:20 WBC 10.0 (4.5-11.0) 10^3/ul RBC 5.09 (3.5-6.1) 10^6/uL Hgb 14.2 (14.0-18.0) gm/dL Hct 44.9 (42.0-52.0) % MCV 88.2 (80.0-105.0) fL MCH 27.9 (25.0-35.0) pg MCHC 31.6 (31.0-37.0) g/dl RDW 17.2 H (11.5-14.5) % Plt Count 88 L (120.0-450.0) 10^3/uL MPV 11.2 H (7.0-11.0) fl Gran % 65.4 (50.0-68.0) % Lymph % (Auto) 17.6 L (22.0-35.0) % Leslie % (Auto) 15.1 H (1.0-6.0) % Eos % (Auto) 1.2 L (1.5-5.0) % Baso % (Auto) 0.7 (0.0-3.0) % Gran # 6.52 H (1.4-6.5) Lymph # 1.8 (1.2-3.4) Leslie # 1.5 H (0.1-0.6) Eos # 0.1 (0.0-0.7) Baso # 0.07 (0.0-2.0) K/mm3 D-Dimer, Quantitative 2.01 H (0-0.50) mg/L FEU pCO2 (35-45) mm/Hg pO2 (80-100) mm/Hg HCO3 (21-28) mmol/L ABG pH (7.35-7.45) ABG Total CO2 (22-28) mmol.L ABG O2 Saturation (95-98) % ABG Base Excess (-2.0-3.0) mmol/L ABG Potassium (3.6-5.2) mmol/L VBG pH (7.32-7.43) VBG pCO2 (40-60) VBG HCO3 (21-28) mmol/l VBG Total CO2 (22-28) mmol.L VBG O2 Sat (Calc) (40-65) % VBG Base Excess (0.0-2.0) mmol/L VBG Potassium (3.6-5.2) mmol/L Sodium (132-148) mmol/L Chloride (98-107) mmol/L Glucose (75-110) mg/dl Lactate (0.7-2.1) mmol/L FiO2 % Potassium (3.6-5.0) mmol/L Carbon Dioxide (21-33) mmol/L Anion Gap (10-20) BUN (7-21) mg/dL Creatinine (0.5-1.4) mg/dL Est GFR ( Amer) Est GFR (Non-Af Amer) POC Glucose (mg/dL) (65-110) mg/dL Random Glucose (70-110) mg/dL Calcium (8.4-10.5) mg/dL Phosphorus (2.5-4.5) mg/dL Magnesium (1.7-2.2) mg/dL Total Bilirubin (0.2-1.3) mg/dL AST (15-59) U/L ALT (7-56) U/L Alkaline Phosphatase (38-133) U/L Lactate Dehydrogenase (333-699) U/L Total Creatine Kinase (35-230) U/L Troponin I ng/mL NT-Pro-B Natriuret Pep (0-450) pg/mL Total Protein (5.8-8.3) g/dL Albumin (3.0-4.8) g/dL Globulin gm/dL Albumin/Globulin Ratio (1.1-1.8) Procalcitonin 0.57 H (0.19-0.49) NG/ML TSH 3rd Generation (0.46-4.68) mIU/mL Arterial Blood Potassium (3.6-5.2) mmol/L Venous Blood Potassium (3.6-5.2) mmol/L 08/15/16 08/15/16 Range/Units 13:55 11:22 WBC (4.5-11.0) 10^3/ul RBC (3.5-6.1) 10^6/uL Hgb (14.0-18.0) gm/dL Hct (42.0-52.0) % MCV (80.0-105.0) fL MCH (25.0-35.0) pg MCHC (31.0-37.0) g/dl RDW (11.5-14.5) % Plt Count (120.0-450.0) 10^3/uL MPV (7.0-11.0) fl Gran % (50.0-68.0) % Lymph % (Auto) (22.0-35.0) % Leslie % (Auto) (1.0-6.0) % Eos % (Auto) (1.5-5.0) % Baso % (Auto) (0.0-3.0) % Gran # (1.4-6.5) Lymph # (1.2-3.4) Leslie # (0.1-0.6) Eos # (0.0-0.7) Baso # (0.0-2.0) K/mm3 D-Dimer, Quantitative (0-0.50) mg/L FEU pCO2 55 H (35-45) mm/Hg pO2 12.0 L* (80-100) mm/Hg HCO3 27.7 (21-28) mmol/L ABG pH 7.31 L (7.35-7.45) ABG Total CO2 29.4 H (22-28) mmol.L ABG O2 Saturation 18.5 L (95-98) % ABG Base Excess 0.4 (-2.0-3.0) mmol/L ABG Potassium 3.6 (3.6-5.2) mmol/L VBG pH (7.32-7.43) VBG pCO2 (40-60) VBG HCO3 (21-28) mmol/l VBG Total CO2 (22-28) mmol.L VBG O2 Sat (Calc) (40-65) % VBG Base Excess (0.0-2.0) mmol/L VBG Potassium (3.6-5.2) mmol/L Sodium 141.0 (132-148) mmol/L Chloride 107.0 (98-107) mmol/L Glucose 187 H (75-110) mg/dl Lactate 3.1 H (0.7-2.1) mmol/L FiO2 35.0 % Potassium (3.6-5.0) mmol/L Carbon Dioxide (21-33) mmol/L Anion Gap (10-20) BUN (7-21) mg/dL Creatinine (0.5-1.4) mg/dL Est GFR ( Amer) Est GFR (Non-Af Amer) POC Glucose (mg/dL) 226 H (65-110) mg/dL Random Glucose (70-110) mg/dL Calcium (8.4-10.5) mg/dL Phosphorus (2.5-4.5) mg/dL Magnesium (1.7-2.2) mg/dL Total Bilirubin (0.2-1.3) mg/dL AST (15-59) U/L ALT (7-56) U/L Alkaline Phosphatase (38-133) U/L Lactate Dehydrogenase (333-699) U/L Total Creatine Kinase (35-230) U/L Troponin I ng/mL NT-Pro-B Natriuret Pep (0-450) pg/mL Total Protein (5.8-8.3) g/dL Albumin (3.0-4.8) g/dL Globulin gm/dL Albumin/Globulin Ratio (1.1-1.8) Procalcitonin (0.19-0.49) NG/ML TSH 3rd Generation (0.46-4.68) mIU/mL Arterial Blood Potassium 3.6 (3.6-5.2) mmol/L Venous Blood Potassium (3.6-5.2) mmol/L Laboratory Results - last 24 hr 08/15/16 08/15/16 08/15/16 11:22 13:55 14:20 WBC 10.0 RBC 5.09 Hgb 14.2 Hct 44.9 MCV 88.2 MCH 27.9 MCHC 31.6 RDW 17.2 H Plt Count 88 L MPV 11.2 H Gran % 65.4 Lymph % (Auto) 17.6 L Leslie % (Auto) 15.1 H Eos % (Auto) 1.2 L Baso % (Auto) 0.7 Gran # 6.52 H Lymph # 1.8 Leslie # 1.5 H Eos # 0.1 Baso # 0.07 D-Dimer, Quantitative pCO2 55 H pO2 12.0 L* HCO3 27.7 ABG pH 7.31 L ABG Total CO2 29.4 H ABG O2 Saturation 18.5 L ABG Base Excess 0.4 ABG Potassium 3.6 VBG pH VBG pCO2 VBG HCO3 VBG Total CO2 VBG O2 Sat (Calc) VBG Base Excess VBG Potassium Sodium 141.0 Chloride 107.0 Glucose 187 H Lactate 3.1 H FiO2 35.0 Potassium Carbon Dioxide Anion Gap BUN Creatinine Est GFR ( Amer) Est GFR (Non-Af Amer) POC Glucose (mg/dL) 226 H Random Glucose Calcium Phosphorus Magnesium Total Bilirubin AST ALT Alkaline Phosphatase Lactate Dehydrogenase Total Creatine Kinase Troponin I NT-Pro-B Natriuret Pep Total Protein Albumin Globulin Albumin/Globulin Ratio Procalcitonin TSH 3rd Generation Arterial Blood Potassium 3.6 Venous Blood Potassium 08/15/16 08/15/16 08/15/16 14:20 14:20 15:40 WBC RBC Hgb Hct MCV MCH MCHC RDW Plt Count MPV Gran % Lymph % (Auto) Leslie % (Auto) Eos % (Auto) Baso % (Auto) Gran # Lymph # Leslie # Eos # Baso # D-Dimer, Quantitative 2.01 H pCO2 pO2 HCO3 ABG pH ABG Total CO2 ABG O2 Saturation ABG Base Excess ABG Potassium VBG pH VBG pCO2 VBG HCO3 VBG Total CO2 VBG O2 Sat (Calc) VBG Base Excess VBG Potassium Sodium 137 Chloride 103 Glucose Lactate FiO2 Potassium 4.3 Carbon Dioxide 23 Anion Gap 15 BUN 25 H Creatinine 1.4 Est GFR ( Amer) > 60 Est GFR (Non-Af Amer) 52 POC Glucose (mg/dL) Random Glucose 161 H Calcium 7.9 L Phosphorus Magnesium Total Bilirubin 1.8 H AST 114 H ALT 395 H Alkaline Phosphatase 60 Lactate Dehydrogenase Total Creatine Kinase 187 Troponin I 0.20 H* NT-Pro-B Natriuret Pep 42767 H Total Protein 5.9 Albumin 3.3 Globulin 2.6 Albumin/Globulin Ratio 1.3 Procalcitonin 0.57 H TSH 3rd Generation Arterial Blood Potassium Venous Blood Potassium 08/15/16 08/15/16 08/15/16 16:46 20:30 21:15 WBC RBC Hgb Hct MCV MCH MCHC RDW Plt Count MPV Gran % Lymph % (Auto) Leslie % (Auto) Eos % (Auto) Baso % (Auto) Gran # Lymph # Leslie # Eos # Baso # D-Dimer, Quantitative pCO2 40 pO2 32 96.0 HCO3 25.4 ABG pH 7.41 ABG Total CO2 26.6 ABG O2 Saturation 97.7 ABG Base Excess 0.7 ABG Potassium VBG pH 7.26 L VBG pCO2 62.0 H VBG HCO3 27.8 VBG Total CO2 29.7 H VBG O2 Sat (Calc) 58.5 VBG Base Excess -0.7 L VBG Potassium 4.6 Sodium 139.0 Chloride 104.0 106.0 Glucose 165 H 139 H Lactate 3.7 H 1.1 FiO2 21.0 Potassium Carbon Dioxide Anion Gap BUN Creatinine Est GFR ( Amer) Est GFR (Non-Af Amer) POC Glucose (mg/dL) 158 H Random Glucose Calcium Phosphorus Magnesium Total Bilirubin AST ALT Alkaline Phosphatase Lactate Dehydrogenase Total Creatine Kinase Troponin I NT-Pro-B Natriuret Pep Total Protein Albumin Globulin Albumin/Globulin Ratio Procalcitonin TSH 3rd Generation Arterial Blood Potassium Venous Blood Potassium 4.6 08/16/16 08/16/16 08/16/16 00:15 04:08 05:30 WBC 7.4 D RBC 4.84 Hgb 13.4 L Hct 41.6 L MCV 86.0 MCH 27.7 MCHC 32.2 RDW 17.0 H Plt Count 103 L MPV 11.0 Gran % 87.1 H Lymph % (Auto) 8.7 L Leslie % (Auto) 4.1 Eos % (Auto) 0.0 L Baso % (Auto) 0.1 Gran # 6.44 Lymph # 0.6 L Leslie # 0.3 Eos # 0.0 Baso # 0.01 D-Dimer, Quantitative pCO2 pO2 HCO3 ABG pH ABG Total CO2 ABG O2 Saturation ABG Base Excess ABG Potassium VBG pH VBG pCO2 VBG HCO3 VBG Total CO2 VBG O2 Sat (Calc) VBG Base Excess VBG Potassium Sodium Chloride Glucose Lactate FiO2 Potassium Carbon Dioxide Anion Gap BUN Creatinine Est GFR ( Amer) Est GFR (Non-Af Amer) POC Glucose (mg/dL) 122 H 106 Random Glucose Calcium Phosphorus Magnesium Total Bilirubin AST ALT Alkaline Phosphatase Lactate Dehydrogenase Total Creatine Kinase Troponin I NT-Pro-B Natriuret Pep Total Protein Albumin Globulin Albumin/Globulin Ratio Procalcitonin TSH 3rd Generation Arterial Blood Potassium Venous Blood Potassium 08/16/16 08/16/16 05:30 05:30 WBC RBC Hgb Hct MCV MCH MCHC RDW Plt Count MPV Gran % Lymph % (Auto) Leslie % (Auto) Eos % (Auto) Baso % (Auto) Gran # Lymph # Leslie # Eos # Baso # D-Dimer, Quantitative pCO2 pO2 HCO3 ABG pH ABG Total CO2 ABG O2 Saturation ABG Base Excess ABG Potassium VBG pH VBG pCO2 VBG HCO3 VBG Total CO2 VBG O2 Sat (Calc) VBG Base Excess VBG Potassium Sodium 140 Chloride 102 Glucose Lactate FiO2 Potassium 3.5 L Carbon Dioxide 28 Anion Gap 14 BUN 28 H Creatinine 1.3 Est GFR ( Amer) > 60 Est GFR (Non-Af Amer) 57 POC Glucose (mg/dL) Random Glucose 106 Calcium 8.3 L Phosphorus 3.7 Magnesium 1.7 Total Bilirubin 1.4 H AST 81 H ALT 363 H Alkaline Phosphatase 62 Lactate Dehydrogenase 546 Total Creatine Kinase 74 Troponin I 0.11 D NT-Pro-B Natriuret Pep Total Protein 6.1 Albumin 3.4 Globulin 2.7 Albumin/Globulin Ratio 1.3 Procalcitonin TSH 3rd Generation 2.39 Arterial Blood Potassium Venous Blood Potassium EKG/Cardiology Studies: Cardiology / EKG Studies 08/15/16 13:28 EKG [ELECTROCARDIOGRAM] Stat Comment: Reason For Exam: cardiogenic shock Fingerstick Blood Sugar Results: 106 Review of Systems - Review of Systems All systems: reviewed and no additional remarkable complaints except - Constitutional Constitutional: absent: Fever, Chills - EENT Eyes: UNREMARKABLE Nose/Mouth/Throat: UNREMARKABLE - Cardiovascular Cardiovascular: Edema (B/L LE), Irregular Heart Rhythm, Leg Edema, Rapid Heart Rate (overnight). absent: Chest Pain, Palpitations - Respiratory Respiratory: Cough - Gastrointestinal Gastrointestinal: absent: Abdominal Pain, Nausea, Vomiting - Musculoskeletal Musculoskeletal: absent: Muscle Cramps - Neurological Neurological: Paresthesias. absent: Headaches Critical Care Progress Note - Extremities/Vascular Does the Patient have a Central Venous Catheter?: No Does the Patient need a Central Venous Catheter?: No Does the Patient have a Huertas Catheter?: Yes Does the Patient need a Hu[place]as Catheter?: Yes Catheter Insertion Criteria: Need for accurate measurement of output in critically ill patient - Prophylaxis GI Prophylaxis GI: PPI - Prophylaxis DVT Prophylaxis DVT: Warfarin Assessment/Plan - Assessment and Plan (Free Text) Assessment: 56M w/PMH sig for DM, HTN, CHF, Afib, HTN, COPD, WESLY, emphysema, anxiety, bipolar d/o, depression, LLE ischemia s/p thrombectomy, Hx PNA admitted to ICU for hypotension, started on dobutamine on 08/15 with resolution of hypotension. Pt with afib w/RVR overnight, dobutamine drip stopped, cardizem started. Pt w/ hypotension again this AM, will d/c cardizem and start amio and dobutamine drip. Pt continuing to require ICU care. Plan: Neuro Hx peripheral neuropathy AOx 3 Stable CVS hx Afib, CHF, HTN, non obstructive CAD, DCM HR in 130's now Trop 0.21, 0.2, now 0.11 BNP 13, 100 from 12,000 LDH 844 Cardizem 2/2 Afib w/RVR overnight- discontinued this AM Lopressor -hold for bradycardia Lipitor- held 2/2 transaminitis ASA Lisinopril w/holding parameters Verapamil w/holding parameters Coumadin 7.5mg QD Lovenox 100mg SC Q12H- will hold AM dose Lasix 40mg Q12H Home meds: Dig, Lopressor - both currently held Started Dobutamine drip Started Amio drip Given Dig 0.25mg X 1 Cards following Resp hx COPD, WESLY, emphysema, PNA O2 in 96%, range in low 90's Target SaO2>90% 2/2 COPD/emphysema hx Bipap PRN Singulair Solu-medrol 40mg IVP Q8H Duonebs PRN Nephro BUN 28 Cr 1.3 (baseline 0.9) Monitor Consider gentle IVF 2/2 likely CHF exacerbation w/DORITA Hypokalemia K .5 Replacing K 40mEq x 2 Monitor Target euvolemia GI HHD/DM diet Hx of gastric bypass Transaminitis AST 114 from 237- down trending ALT 395 from 659- down trending Hyperbilirubinemia T bili 1.8 from 2.2 Avoid nephrotoxic meds Monitor Endo Hx DM in setting of morbid obesity BMI 106 ISS Levemir Accuchecks Target BS 140-180 per NICE sugar trial Heme Hgb 13.4 Hct 41.6 D-Dimer 2.1 INR 1.74 B/L LE dopplers neg for DVT Stable Monitor MSK Panniculitis Nystatin powder Mupirocin ointment to area surrounding s/p fall w/trauma to L chest Monitor skin break down ID Afebrile over last 24H No leukocytosis Lactate 3.1 Vanc 1gm x 1 dose Cefepime 1gm Q12H Procalc 0.57 Monitor Psych hx Ativan Trazadone Psych consult GI/DVT ppx Heparin Protonix Dispo Cont ICU care Consented for Central line if needed Will hold AM Lovenox dose Consulted IR for PICC line placement- 2 ports DW attending - Date & Time Date: 08/16/16 Time: 07:51 <Rob Hernandez - Last Filed: 08/16/16 17:53> CCU Objective - Vital Signs / Intake & Output Vital Signs (Last 4 hours): Vital Signs Pulse Resp BP Pulse Ox 08/16/16 17:07 123 H 27 H 93/66 L 90 L 08/16/16 17:06 128 H 22 08/16/16 17:01 111 H 33 H 08/16/16 17:00 118 H 13 92/80 L 90 L 08/16/16 16:53 125 H 24 107/56 L 87 L 08/16/16 16:51 130 H 106/54 L 87 L 08/16/16 16:50 125 H 38 H 105/73 86 L 08/16/16 16:40 130 H 100/70 08/16/16 16:39 123 H 27 H 100/73 87 L 08/16/16 16:30 132 H 28 H 122/63 91 L 08/16/16 16:00 124 H 47 H 116/80 96 08/16/16 15:33 108 H 30 H 104/62 94 L 08/16/16 15:31 128 H 24 127/51 L 94 L 08/16/16 15:00 121 H 26 H 116/66 92 L 08/16/16 14:49 115 H 20 108/55 L 95 08/16/16 14:00 116 H 27 H 121/64 93 L Intake and Output (Last 8hrs): Intake & Output 08/16/16 08/16/16 08/16/16 06:59 14:59 22:59 Intake Total 548 Output Total 2300 500 Balance -1752 -500 Weight 272 lb 272 lb Intake: IV 398 Right Hand 398 Oral 150 Output: Urine 2300 500 Urine, Voided 2300 500 Other: Voiding Method Indwelling Catheter # Bowel Movements 1 - Medications Active Medications: Active Medications Generic Name Dose Route Start Last Admin Trade Name Freq PRN Reason Stop Dose Admin Albuterol/Ipratropium 3 ml 08/15/16 19:30 08/16/16 15:46 Duoneb 3 Mg/0.5 Mg (3 Ml) Ud IH 3 ml [id number] WILTON Administration Atorvastatin Calcium 40 mg 08/14/16 21:45 08/14/16 22:59 Lipitor PO 40 mg DIN WILTON Administration Digoxin 0.125 mg 08/15/16 14:00 08/15/16 16:52 Lanoxin PO Not Given 1400 WILTON Enoxaparin Sodium 100 mg 08/16/16 14:30 08/16/16 14:46 Lovenox SC 100 mg Q12H WILTON Administration Protocol Furosemide 40 mg 08/15/16 10:00 08/15/16 09:15 Lasix PO 40 mg BID WILTON Administration Furosemide 40 mg 08/15/16 22:00 08/16/16 14:53 Lasix IVP Not Given Q12 WILTON Glimepiride 4 mg 08/15/16 10:00 08/15/16 09:18 Amaryl PO 4 mg DAILY WILTON Administration Cefepime HCl 1 gm in 100 mls @ 100 mls/hr 08/15/16 22:00 08/16/16 12:13 Maxipime 1gm IVPB 100 mls/hr Q12 WILTON Administration Protocol Dobutamine HCl/Dextrose 500 mg in 250 mls @ 9.253 mls/hr 08/16/16 10:11 08/16 10:11 Dobutamine/Dextrose 5% 500mg/250ml IV 9.253 mls/hr .Q24H PRN Administration TITRATE PER PROTOCOL Protocol 2.5 MCG/KG/MIN Vancomycin HCl 1 gm in 250 mls @ 167 mls/hr 08/16/16 13:00 08/16/16 14:42 Vancomycin 1gm IVPB 167 mls/hr DAILY WILTON Administration Protocol Amiodarone HCl/Dextrose 360 mg in 200 mls @ 16.667 mls/hr 08/16/16 14:30 14:36 Nexterone 360 Mg In D5w 200 Ml (Premix) IV 16.667 mls/hr .Q12H WILTON Administration Protocol 0.5 MG/MIN Milrinone Lactate/Dextrose 100 mls @ 18.507 mls/hr 08/16/16 14:27 Primacor 20mg/100ml D5w IV .Q5H25M PRN TITRATE PER MD ORDER Protocol 0.5 MCG/KG/MIN Insulin Detemir 40 unit 08/15/16 07:30 08/16/16 08:41 Levemir SC 40 unit ACBD WILTON Administration Insulin Human Regular 0 units 08/16/16 10:00 08/16/16 14:46 Humulin R Med SC 5 units Q6H WILTON Administration Protocol Lisinopril 20 mg 08/15/16 15:24 08/16/16 09:37 Zestril PO Not Given DAILY WILTON Lorazepam 2 mg 08/16/16 13:58 Ativan PO AMHS WILTON Protocol Methylprednisolone 40 mg 08/15/16 15:45 08/16/16 08:31 Solu-Medrol IVP 40 mg Q8H WILTON Administration Metoprolol Tartrate 50 mg 08/14/16 21:45 08/15/16 09:16 Lopressor PO 50 mg BID WILTON Administration Metoprolol Tartrate 5 mg 08/16/16 17:00 08/16/16 17:35 Lopressor IVP Not Given Q6H WILTON Midazolam HCl 0.5 mg 08/16/16 14:09 Versed Inj IVP ONCE PRN ANXIE Montelukast Sodium 10 mg 08/15/16 22:00 08/15/16 21:53 Singulair PO 10 mg HS WILTON Administration Mupirocin 0 gm 08/16/16 10:21 Bactroban Ointment TOP BID WILTON Nystatin 0 gm 08/16/16 10:20 08/16/16 10:20 Nystop Topical Powder TOP 1 dose Q12H WILTON Administration Pantoprazole Sodium 40 mg 08/17/16 06:30 Protonix [place] 0630 WILTON Trazodone HCl 200 mg 08/14/16 22:00 08/15/16 21:53 Desyrel PO 200 mg HS WILTON Administration Verapamil HCl 80 mg 08/15/16 15:24 08/16/16 17:31 Calan Tab PO Not Given TID WILTON Warfarin Sodium 7.5 mg 08/15/16 18:00 08/15/16 17:36 Coumadin PO 7.5 mg 1800 WILTON Administration Protocol - Patient Studies Lab Studies: Microbiology Studies 08/15/16 16:46 Blood Culture - Preliminary Blood-Venous NO GROWTH AFTER 24 HOURS 08/15/16 14:45 Urine Culture - Final Urine,Catheterized No Growth (<1,000 CFU/ML) Lab Studies 08/16/16 08/16/16 08/16/16 Range/Units 10:00 07:30 07:25 WBC (4.5-11.0) 10^3/ul RBC (3.5-6.1) 10^6/uL Hgb (14.0-18.0) gm/dL Hct (42.0-52.0) % MCV (80.0-105.0) fL MCH (25.0-35.0) pg MCHC (31.0-37.0) g/dl RDW (11.5-14.5) % Plt Count (120.0-450.0) 10^3/uL MPV (7.0-11.0) fl Gran % (50.0-68.0) % Lymph % (Auto) (22.0-35.0) % Leslie % (Auto) (1.0-6.0) % Eos % (Auto) (1.5-5.0) % Baso % (Auto) (0.0-3.0) % Gran # (1.4-6.5) Lymph # (1.2-3.4) Leslie # (0.1-0.6) Eos # (0.0-0.7) Baso # (0.0-2.0) K/mm3 PT 18.8 H (9.9-11.8) Seconds INR 1.74 H (0.93-1.08) pCO2 46 H (35-45) mm/Hg pO2 86.0 (80-100) mm/Hg HCO3 29.8 H (21-28) mmol/L ABG pH 7.42 (7.35-7.45) ABG Total CO2 31.2 H (22-28) mmol.L ABG O2 Saturation 97.3 (95-98) % ABG O2 Content 15.8 (15-23) ML/dl ABG Base Excess 4.6 H (-2.0-3.0) mmol/L ABG Hemoglobin 11.8 (11.7-17.4) g/dL ABG Carboxyhemoglobin 1.8 H (0.5-1.5) % POC ABG HHb (Measured) 2.6 (0-5) % ABG Methemoglobin 1.2 (0.0-3.0) % ABG O2 Capacity 16.2 (16-24) mL/dl Hgb O2 Saturation 94.4 L (95.0-98.0) % Chloride (98-107) mmol/L Glucose (75-110) mg/dl Lactate (0.7-2.1) mmol/L FiO2 32.0 % Sodium (132-148) mmol/L Potassium (3.6-5.0) mmol/L Carbon Dioxide (21-33) mmol/L Anion Gap (10-20) BUN (7-21) mg/dL Creatinine (0.5-1.4) mg/dL Est GFR ( Amer) Est GFR (Non-Af Amer) POC Glucose (mg/dL) 180 H (65-110) mg/dL Random Glucose (70-110) mg/dL Calcium (8.4-10.5) mg/dL Phosphorus (2.5-4.5) mg/dL Magnesium (1.7-2.2) mg/dL Total Bilirubin (0.2-1.3) mg/dL AST (15-59) U/L ALT (7-56) U/L Alkaline Phosphatase (38-133) U/L Lactate Dehydrogenase (333-699) U/L Total Creatine Kinase (35-230) U/L Troponin I ng/mL Total Protein (5.8-8.3) g/dL Albumin (3.0-4.8) g/dL Globulin gm/dL Albumin/Globulin Ratio (1.1-1.8) Procalcitonin (0.19-0.49) NG/ML TSH 3rd Generation (0.46-4.68) mIU/mL 08/16/16 08/16/16 08/16/16 Range/Units 05:30 05:30 05:30 WBC 7.4 D (4.5-11.0) 10^3/ul RBC 4.84 (3.5-6.1) 10^6/uL Hgb 13.4 L (14.0-18.0) gm/dL Hct 41.6 L (42.0-52.0) % MCV 86.0 (80.0-105.0) fL MCH 27.7 (25.0-35.0) pg MCHC 32.2 (31.0-37.0) g/dl RDW 17.0 H (11.5-14.5) % Plt Count 103 L (120.0-450.0) 10^3/uL MPV 11.0 (7.0-11.0) fl Gran % 87.1 H (50.0-68.0) % Lymph % (Auto) 8.7 L (22.0-35.0) % Leslie % (Auto) 4.1 (1.0-6.0) % Eos % (Auto) 0.0 L (1.5-5.0) % Baso % (Auto) 0.1 (0.0-3.0) % Gran # 6.44 (1.4-6.5) Lymph # 0.6 L (1.2-3.4) Leslie # 0.3 (0.1-0.6) Eos # 0.0 (0.0-0.7) Baso # 0.01 (0.0-2.0) K/mm3 PT (9.9-11.8) Seconds INR (0.93-1.08) pCO2 (35-45) mm/Hg pO2 (80-100) mm/Hg HCO3 (21-28) mmol/L ABG pH (7.35-7.45) ABG Total CO2 (22-28) mmol.L ABG O2 Saturation (95-98) % ABG O2 Content (15-23) ML/dl ABG Base Excess (-2.0-3.0) mmol/L ABG Hemoglobin (11.7-17.4) g/dL ABG Carboxyhemoglobin (0.5-1.5) % POC ABG HHb (Measured) (0-5) % ABG Methemoglobin (0.0-3.0) % ABG O2 Capacity (16-24) mL/dl Hgb O2 Saturation (95.0-98.0) % Chloride 102 (98-107) mmol/L Glucose (75-110) mg/dl Lactate (0.7-2.1) mmol/L FiO2 % Sodium 140 (132-148) mmol/L Potassium 3.5 L (3.6-5.0) mmol/L Carbon Dioxide 28 (21-33) mmol/L Anion Gap 14 (10-20) BUN 28 H (7-21) mg/dL Creatinine 1.3 (0.5-1.4) mg/dL Est GFR ( Amer) > 60 Est GFR (Non-Af Amer) 57 POC Glucose (mg/dL) (65-110) mg/dL Random Glucose 106 (70-110) mg/dL Calcium 8.3 L (8.4-10.5) mg/dL Phosphorus 3.7 (2.5-4.5) mg/dL Magnesium 1.7 (1.7-2.2) mg/dL Total Bilirubin 1.4 H (0.2-1.3) mg/dL AST 81 H (15-59) U/L ALT 363 H (7-56) U/L Alkaline Phosphatase 62 (38-133) U/L Lactate Dehydrogenase 546 (333-699) U/L Total Creatine Kinase 74 (35-230) U/L Troponin I 0.11 D ng/mL Total Protein 6.1 (5.8-8.3) g/dL Albumin 3.4 (3.0-4.8) g/dL Globulin 2.7 gm/dL Albumin/Globulin Ratio 1.3 (1.1-1.8) Procalcitonin (0.19-0.49) NG/ML TSH 3rd Generation 2.39 (0.46-4.68) mIU/mL 08/16/16 08/16/16 08/15/16 Range/Units 04:08 00:15 21:15 WBC (4.5-11.0) 10^3/ul RBC (3.5-6.1) 10^6/uL Hgb (14.0-18.0) gm/dL Hct (42.0-52.0) % MCV (80.0-105.0) fL MCH (25.0-35.0) pg MCHC (31.0-37.0) g/dl RDW (11.5-14.5) % Plt Count (120.0-450.0) 10^3/uL MPV (7.0-11.0) fl Gran % (50.0-68.0) % Lymph % (Auto) (22.0-35.0) % Leslie % (Auto) (1.0-6.0) % Eos % (Auto) (1.5-5.0) % Baso % (Auto) (0.0-3.0) % Gran # (1.4-6.5) Lymph # (1.2-3.4) Leslie # (0.1-0.6) Eos # (0.0-0.7) Baso # (0.0-2.0) K/mm3 PT (9.9-11.8) Seconds INR (0.93-1.08) pCO2 40 (35-45) mm/Hg pO2 96.0 (80-100) mm/Hg HCO3 25.4 (21-28) mmol/L ABG pH 7.41 (7.35-7.45) ABG Total CO2 26.6 (22-28) mmol.L ABG O2 Saturation 97.7 (95-98) % ABG O2 Content (15-23) ML/dl ABG Base Excess 0.7 (-2.0-3.0) mmol/L ABG Hemoglobin (11.7-17.4) g/dL ABG Carboxyhemoglobin (0.5-1.5) % POC ABG HHb (Measured) (0-5) % ABG Methemoglobin (0.0-3.0) % ABG O2 Capacity (16-24) mL/dl Hgb O2 Saturation (95.0-98.0) % Chloride 106.0 (98-107) mmol/L Glucose 139 H (75-110) mg/dl Lactate 1.1 (0.7-2.1) mmol/L FiO2 % Sodium (132-148) mmol/L Potassium (3.6-5.0) mmol/L Carbon Dioxide (21-33) mmol/L Anion Gap (10-20) BUN (7-21) mg/dL Creatinine (0.5-1.4) mg/dL Est GFR ( Amer) Est GFR (Non-Af Amer) POC Glucose (mg/dL) 106 122 H (65-110) mg/dL Random Glucose (70-110) mg/dL Calcium (8.4-10.5) mg/dL Phosphorus (2.5-4.5) mg/dL Magnesium (1.7-2.2) mg/dL Total Bilirubin (0.2-1.3) mg/dL AST (15-59) U/L ALT (7-56) U/L Alkaline Phosphatase (38-133) U/L Lactate Dehydrogenase (333-699) U/L Total Creatine Kinase (35-230) U/L Troponin I ng/mL Total Protein (5.8-8.3) g/dL Albumin (3.0-4.8) g/dL Globulin gm/dL Albumin/Globulin Ratio (1.1-1.8) Procalcitonin (0.19-0.49) NG/ML TSH 3rd Generation (0.46-4.68) mIU/mL 08/15/16 08/15/16 08/15/16 Range/Units 20:30 16:14 14:20 WBC (4.5-11.0) 10^3/ul RBC (3.5-6.1) 10^6/uL Hgb (14.0-18.0) gm/dL Hct (42.0-52.0) % MCV (80.0-105.0) fL MCH (25.0-35.0) pg MCHC (31.0-37.0) g/dl RDW (11.5-14.5) % Plt Count (120.0-450.0) 10^3/uL MPV (7.0-11.0) fl Gran % (50.0-68.0) % Lymph % (Auto) (22.0-35.0) % Leslie % (Auto) (1.0-6.0) % Eos % (Auto) (1.5-5.0) % Baso % (Auto) (0.0-3.0) % Gran # (1.4-6.5) Lymph # (1.2-3.4) Leslie # (0.1-0.6) Eos # (0.0-0.7) Baso # (0.0-2.0) K/mm3 PT (9.9-11.8) Seconds INR (0.93-1.08) pCO2 (35-45) mm/Hg pO2 (80-100) mm/Hg HCO3 (21-28) mmol/L ABG pH (7.35-7.45) ABG Total CO2 (22-28) mmol.L ABG O2 Saturation (95-98) % ABG O2 Content (15-23) ML/dl ABG Base Excess (-2.0-3.0) mmol/L ABG Hemoglobin (11.7-17.4) g/dL ABG Carboxyhemoglobin (0.5-1.5) % POC ABG HHb (Measured) (0-5) % ABG Methemoglobin (0.0-3.0) % ABG O2 Capacity (16-24) mL/dl Hgb O2 Saturation (95.0-98.0) % Chloride (98-107) mmol/L Glucose (75-110) mg/dl Lactate (0.7-2.1) mmol/L FiO2 % Sodium (132-148) mmol/L Potassium (3.6-5.0) mmol/L Carbon Dioxide (21-33) mmol/L Anion Gap (10-20) BUN (7-21) mg/dL Creatinine (0.5-1.4) mg/dL Est GFR ( Amer) Est GFR (Non-Af Amer) POC Glucose (mg/dL) 158 H 169 H (65-110) mg/dL Random Glucose (70-110) mg/dL Calcium (8.4-10.5) mg/dL Phosphorus (2.5-4.5) mg/dL Magnesium (1.7-2.2) mg/dL Total Bilirubin (0.2-1.3) mg/dL AST (15-59) U/L ALT (7-56) U/L Alkaline Phosphatase (38-133) U/L Lactate Dehydrogenase (333-699) U/L Total Creatine Kinase (35-230) U/L Troponin I ng/mL Total Protein (5.8-8.3) g/dL Albumin (3.0-4.8) g/dL Globulin gm/dL Albumin/Globulin Ratio (1.1-1.8) Procalcitonin 0.57 H (0.19-0.49) NG/ML TSH 3rd Generation (0.46-4.68) mIU/mL Laboratory Results - last 24 hr 08/15/16 08/15/16 08/15/16 14:20 16:14 20:30 WBC RBC Hgb Hct MCV MCH MCHC RDW Plt Count MPV Gran % Lymph % (Auto) Leslie % (Auto) Eos % (Auto) Baso % (Auto) Gran # Lymph # Leslie # Eos # Baso # PT INR pCO2 pO2 HCO3 ABG pH ABG Total CO2 ABG O2 Saturation ABG O2 Content ABG Base Excess ABG Hemoglobin ABG Carboxyhemoglobin POC ABG HHb (Measured) ABG Methemoglobin ABG O2 Capacity Hgb O2 Saturation Chloride Glucose Lactate FiO2 Sodium Potassium Carbon Dioxide Anion Gap BUN Creatinine Est GFR ( Amer) Est GFR (Non-Af Amer) POC Glucose (mg/dL) 169 H 158 H Random Glucose Calcium Phosphorus Magnesium Total Bilirubin AST ALT Alkaline Phosphatase Lactate Dehydrogenase Total Creatine Kinase Troponin I Total Protein Albumin Globulin Albumin/Globulin Ratio Procalcitonin 0.57 H TSH 3rd Generation 08/15/16 08/16/16 08/16/16 21:15 00:15 04:08 WBC RBC Hgb Hct MCV MCH MCHC RDW Plt Count MPV Gran % Lymph % (Auto) Leslie % (Auto) Eos % (Auto) Baso % (Auto) Gran # Lymph # Leslie # Eos # Baso # PT INR pCO2 40 pO2 96.0 HCO3 25.4 ABG pH 7.41 ABG Total CO2 26.6 ABG O2 Saturation 97.7 ABG O2 Content ABG Base Excess 0.7 ABG Hemoglobin ABG Carboxyhemoglobin POC ABG HHb (Measured) ABG Methemoglobin ABG O2 Capacity Hgb O2 Saturation Chloride 106.0 Glucose 139 H Lactate 1.1 FiO2 Sodium Potassium Carbon Dioxide Anion Gap BUN Creatinine Est GFR ( Amer) Est GFR (Non-Af Amer) POC Glucose (mg/dL) 122 H 106 Random Glucose Calcium Phosphorus Magnesium Total Bilirubin AST ALT Alkaline Phosphatase Lactate Dehydrogenase Total Creatine Kinase Troponin I Total Protein Albumin Globulin Albumin/Globulin Ratio Procalcitonin TSH 3rd Generation 08/16/16 08/16/16 08/16/16 05:30 05:30 05:30 WBC 7.4 D RBC 4.84 Hgb 13.4 L Hct 41.6 L MCV 86.0 MCH 27.7 MCHC 32.2 RDW 17.0 H Plt Count 103 L MPV 11.0 Gran % 87.1 H Lymph % (Auto) 8.7 L Leslie % (Auto) 4.1 Eos % (Auto) 0.0 L Baso % (Auto) 0.1 Gran # 6.44 Lymph # 0.6 L Leslie # 0.3 Eos # 0.0 Baso # 0.01 PT INR pCO2 pO2 HCO3 ABG pH ABG Total CO2 ABG O2 Saturation ABG O2 Content ABG Base Excess ABG Hemoglobin ABG Carboxyhemoglobin POC ABG HHb (Measured) ABG Methemoglobin ABG O2 Capacity Hgb O2 Saturation Chloride 102 Glucose Lactate FiO2 Sodium 140 Potassium 3.5 L Carbon Dioxide 28 Anion Gap 14 BUN 28 H Creatinine 1.3 Est GFR ( Amer) > 60 Est GFR (Non-Af Amer) 57 POC Glucose (mg/dL) Random Glucose 106 Calcium 8.3 L Phosphorus 3.7 Magnesium 1.7 Total Bilirubin 1.4 H AST 81 H ALT 363 H Alkaline Phosphatase 62 Lactate Dehydrogenase 546 Total Creatine Kinase 74 Troponin I 0.11 D Total Protein 6.1 Albumin 3.4 Globulin 2.7 Albumin/Globulin Ratio 1.3 Procalcitonin TSH 3rd Generation 2.39 08/16/16 08/16/16 08/16/16 07:25 07:30 10:00 WBC RBC Hgb Hct MCV MCH MCHC RDW Plt Count MPV Gran % Lymph % (Auto) Leslie % (Auto) Eos % (Auto) Baso % (Auto) Gran # Lymph # Leslie # Eos # Baso # PT 18.8 H INR 1.74 H pCO2 46 H pO2 86.0 HCO3 29.8 H ABG pH 7.42 ABG Total CO2 31.2 H ABG O2 Saturation 97.3 ABG O2 Content 15.8 ABG Base Excess 4.6 H ABG Hemoglobin 11.8 ABG Carboxyhemoglobin 1.8 H POC ABG HHb (Measured) 2.6 ABG Methemoglobin 1.2 ABG O2 Capacity 16.2 Hgb O2 Saturation 94.4 L Chloride Glucose Lactate FiO2 32.0 Sodium Potassium Carbon Dioxide Anion Gap BUN Creatinine Est GFR ( Amer) Est GFR (Non-Af Amer) POC Glucose (mg/dL) 180 H Random Glucose Calcium Phosphorus Magnesium Total Bilirubin AST ALT Alkaline Phosphatase Lactate Dehydrogenase Total Creatine Kinase Troponin I Total Protein Albumin Globulin Albumin/Globulin Ratio Procalcitonin TSH 3rd Generation Critical Care Progress Note - Nutrition Nutrition: Nutrition Category Date Time Status Consistent Carbohydrate [DIET] Diets 08/16/16 Lunch Ordered Addendum Addendum: 08/16/16 17:48 patient was seen, examined and disucssed at bedside with Dr. Ford. Her note reflects my exam, assessment and plan, except as below. Meds/Labs/ONE reviewed. 56 yo recovering from cardiogenic shock, in the setting of severe LV systolic dyssfunction, RV failure and afib. Patient is on milrinone, amiodarone, ACEI for afterload reduction. HR was poorly controlled on amio and after one dose of digoxin. will start lopressor 5 mg iv q6 and hold CCB at present time. Patient tolerated first dose of lopressor well. Will continue with conservative fluid management, which may improve renal function as well as it may improve renal venous return. Mental status substantially improved, respiratory acidosis resolved, alert and oriented x 3. cont nebs, steroid taper and TAC. ccm time 40 min
[2016-08-16 08:01] LABS: ARTERIAL BLOOD GAS HCO3 29.8 mmol/L (21-28); ARTERIAL BLOOD GAS O2 CAPACITY 16.2 mL/dl (16-24); ARTERIAL BLOOD GAS O2 CONTENT 15.8 ML/dl (15-23); ARTERIAL BLOOD GAS PH 7.42 (7.35-7.45); ARTERIAL BLOOD HGB O2 SAT 94.4 % (95.0-98.0); CARBOXYHEMOGLOBIN 1.8 % (0.5-1.5); HHB 2.6 % (0-5); METHEMOGLOBIN 1.2 % (0.0-3.0)
--- NOTE | 2016-08-16 08:04 | CON ---
DATE: 08/15/2016 This is a 56-year-old gentleman with history of CHF, mild to moderate left ventricular systolic dysfunction, nonobstructive coronary artery disease who presented at this time after a fall yesterday and hit his chest. The patient was found to have acute kidney injury and some troponin rise was initially attributed to DORITA. IV fluid started and pain medication initiated. The patient , however, did not feel any better and in fact his blood pressure dropped today and his breathing deteriorated. ICU consult was called for further management and monitoring. No nausea, no vomiting, no diarrhea, no constipation. No fever, no chills, no sweats. No abdominal pain. PAST MEDICAL HISTORY: Atrial fibrillation on Coumadin, diabetic neuropathy, diabetes type 2, hypertension, COPD, left leg ischemia, status post thrombectomy , dyslipidemia, obesity, CHF. FAMILY HISTORY: Noncontributory. SOCIAL HISTORY: The patient is an active smoker. Some alcohol abuse. No illicit drug abuse. REVIEW OF SYSTEMS: Revealed 12 point system other than mentioned in history of present illness is negative. ALLERGIES: QUETIAPINE AND WILD BERRIES. PHYSICAL EXAMINATION: VITAL SIGNS: Blood pressure dropped to 70/40, heart rate 70-80 (slow afib), oxygen saturation 91 and 93 on room air. HEAD AND NECK: Atraumatic. LUNGS: Few wheezes bilaterally, decreased breath sounds bilaterally. HEART: Irregular rate and rhythm. S1, S2 distant. ABDOMEN: Soft, nontender, nondistended. MUSCULOSKELETAL: 1-2+ bilateral pedal and ankle edema. There is some pain in the left foot and ankle. NEUROLOGIC: The patient moves all extremities spontaneously. The patient is alert and oriented x 3 in mild respiratory distress. SKIN: Moist. LABORATORY DATA: WBC 10, hemoglobin 14.2, platelet count 88. Sodium 139, potassium 3.8, chloride 99, creatinine 1.3. AST 237, ALT 659, troponin 0.21. ProBNP 12,000. Total bilirubin 2.2. MEDICATIONS: Atrovent/albuterol DuoNeb every 4 hours, Lipitor (will hold as patient has elevated LFTs, abdominal ultrasound ordered), digoxin will hold, dobutamine, Lovenox 100 mg subQ q. 12, Lasix 40 mg p.o. b.i.d. will hold; however, Lasix 40 mg IV q. 12 continued. Amaryl on hold, Levemir 40 units subQ bid, regular insulin sliding scale medium protocol every 4 hours, lisinopril 20 mg p.o. daily, Ativan twice a day, cefepime, metformin on hold, Solu-Medrol 40 mg IV q. 8, metoprolol on hold, Singulair, trazodone, verapamil on hold, warfarin 7.5 mg p.o. daily. Echocardiogram, preliminary review revealed ejection fraction about 20%. Formal review is pending. ASSESSMENT AND PLAN: This is a 56-year-old gentleman with significant cardiovascular risk factors, who dropped blood pressure and his respiratory status deteriorated in the setting of lactic acidosis and worsening of LV systolic function on preliminary review of patient's echocardiogram. Thus, cardiogenic shock with AHF appears to be most logical etiology, diagnosis. The patient was started on dobutamine drip, small IVF bolus was given to evaluate patient's position on starling curve. Antihypertensive medications were held temporarily. The patient's blood pressure substantially improved after dobutamine started up to 120 to 130 systolic, which further confirmed AHF diagnosis. At the present time, I will proceed with dobutamine, conservative fluid management, provided hemodynamics stabilized, and afterload reduction with BPAP. If BP allows will continue ACEI for afterload reduction as well. The possibility of distributive shock physiology even though less likely but cannot be ruled out and I will proceed with antibiotics, septic workup, procalcitonin. Vancomycin and cefepime were given. The patient has some bilirubin and LFTs elevation. Thus, I will proceed with abdominal ultrasound. When the patient's respiratory status is somewhat stabilized as well, I will consider a CAT scan of the abdomen and pelvis as well. ABG shock panel revealed CO2 retention with acute respiratory acidosis. The patient does have history of COPD. He is morbidly obese and hypoventilation due to overlapping syndrome and OHS is likely primary cause of CO2 retention. However low CO state may also contribute to C02 enhanced accumulation. I will start him on bronchodilators, steroid taper and BPAP Troponin is trending and repeated results are pending. The patient is on therapeutic anticoagulation, will continue with aspirin. We will hold beta blockers at present time as patient is on dobutamine until hemodynamic stability established. I will hold Lipitor also out of concern for transaminitis, which may on the other hand represent congestive hepatopathy. The patient does not complain of chest pain at present time and EKG did not reveal specific ischemic changes (only atrial fibrillation with controlled heart rate). The other etiology of shock syndrome is less likely as there is no pneumothorax on chest x-ray and patient is on therapeutic anticoagulation, thus PE is less likely as well. Low extremities venous Doppler is negative. Will continue to target euvolemia, euglycemia, normothermia and oxygen saturation more than 90%. We will continue with GI prophylaxis. ccm time 40 min Rob Hernandez MD cc: [id number] TT: 08/15/2016 17:48:20 Confirmation # [id number] Dictation # [id number] mn MTDD
--- NOTE | 2016-08-16 08:30 | RAD ---
HISTORY: follow up COMPARISON: No prior. FINDINGS: LUNGS: Poor inspiration with low lung volumes, mild crowded bronchovascular markings and mild bibasilar atelectasis. Mild increased central pulmonary vascularity which could be due to poor inspiration as well however possibility of mild pulmonary edema/CHF not excluded. PLEURA: No significant pleural effusion identified, no pneumothorax apparent. CARDIOVASCULAR: Normal. OSSEOUS STRUCTURES: No significant abnormalities. VISUALIZED UPPER ABDOMEN: Normal. OTHER FINDINGS: None. IMPRESSION: Poor inspiration with low lung volumes, mild crowded bronchovascular markings and mild bibasilar atelectasis. Mild increased central pulmonary vascularity which could be due to poor inspiration as well however possibility of mild pulmonary edema/CHF not excluded.
[2016-08-16] MEDS: Potassium Chloride 20 mEq/15 ml LIQ UD PO SCH ×2 (08:31→10:11)
[2016-08-16] MEDS: MethylPREDNISolone 40 mg Vial IVP SCH ×2 (08:31→17:48)
[2016-08-16] MEDS: Insulin Detemir 100 units/ml Vial (Levemir) SC SCH ×2 (08:41→17:46)
--- NOTE | 2016-08-16 08:46 | CON ---
DATE: 08/15/2016 REFERRING PHYSICIAN: Dr. Axel Villagomez. REASON FOR ADMISSION: Chronic obstructive lung disease, obstructive sleep apnea syndrome, cardiomyop athy, atrial fibrillation. HISTORY OF PRESENT ILLNESS: This is a 56-year-old gentleman well known to me from multiple medical p roblems, ____, now atrial fibrillation with rapid ventricular response, transferred to ICU with hypot ension, started on dobutamine, on anticoagulation, complaining about shortness of breath, has chest p ain, recently fall. No nausea, no vomiting, no diarrhea. Has extensive rash in the inguinal area, l eg swelling. PAST MEDICAL HISTORY: Chronic obstructive lung disease, obstructive sleep apnea syndrome, morbid obe sity, atrial fibrillation, cardiomyopathy, diabetes, hypertension, history of thromboembolic disease requiring thrombectomy, obesity. SOCIAL HISTORY: Stopped smoking and also stopped alcohol abuse. FAMILY HISTORY: Positive for parents in early age. ALLERGIES: QUETIAPINE. MEDICATIONS: He is on Amaryl 4 mg daily, Ativan 2 mg a.m. and at bedtime, verapamil 80 mg 3 times a day, Coumadin 7.5 mg given, trazodone 200 mg at bedtime, started on IV dobutamine, DuoNeb q. 4 hours, metformin 1000 mg twice a day, insulin coverage, digoxin 0.125 mg daily, Lasix 40 mg twice a daily, Levemir 40 units subQ ACB, Lipitor 40 mg daily, metoprolol tartrate 50 mg twice a day, Lovenox 100 mg subQ twice a day, cefepime 1 g q. 12 hours, Singulair 10 mg daily, Solu-Medrol 40 mg q. 8 hours, Zes tril 20 mg daily. REVIEW OF SYSTEMS: No headache, no rhinitis. Has cough, shortness of breath, chest wall discomfort. No nausea, no vomiting. Has an inguinal rash, leg swelling. No dysuria. No diarrhea. PHYSICAL EXAMINATION: GENERAL: Lying in the bed, mild distress secondary to shortness of breath. VITAL SIGNS: Temp is 98, heart rate 76, respiratory rate is 22, blood pressure 98/56, pulse ox 97% o n nasal cannula. HEENT: Moist mucous membranes. Crowded airway. Mallampati score is 4. NECK: Supple. No JVD. LUNGS: Have decreased breath sounds at bases, scattered rhonchi. HEART: Irregularly irregular. ABDOMEN: Obese, soft, nontender. Has inguinal rash. EXTREMITIES: Have edema of both lower extremities. NEUROLOGIC: Awake, alert, follows simple commands. LABORATORY DATA: Shows hemoglobin 14.2, hematocrit 44.9, WBC 10.0, platelet is 88. D-dimer was 2.01 . INR 1.4. Blood gases show pH 7.41, pCO2 of 40, O2 96% on nasal cannula. Sodium 137, potassium 4. 3, chloride 103, bicarbonate 23, BUN 25, creatinine 1.4, glucose 158, calcium 7.9, total bili 1.8, T 114, ALT 395, alk phos is 60, troponin 0.20. ProBNP 13,100. Albumin 3.3. Procalcitonin 0.57. Frakn s abdominal ultrasound done which shows suboptimal examination, markedly limited because of body habi tus. Hepatomegaly, echogenic liver may be seen in the setting of hepatic parenchymal disease or fatt y infiltrate. Has ascites, splenomegaly, gallbladder wall thickening, no definite gallstones, dilate d common bile duct. Last chest x-ray done this afternoon shows no active pulmonary disease. Venous Doppler of lower extremity shows no DVT of the lower extremities. Has a CAT scan of the chest done o n arrival in the ER, shows moderately large right pleural effusion with compressive atelectasis, patc hy airspace disease, greater in the left lobe; no acute fracture. IMPRESSION AND PLAN: Cardiogenic versus septic shock, has atrial fibrillation with rapid ventricular response, diabetes, hypertension, chronic obstructive lung disease, obstructive sleep apnea syndrome , pleural effusion, morbid obesity. Case discussed with lithographic photographer apprentice. I agree with dobutamine. Cont inue beta rahat, remain on calcium channel rahat, diuretics. There may be a component of pneumon ia. Continue anticoagulation, antibiotics, steroids, inhaled bronchodilator. We will place him on B iPAP 12/ with 40% oxygen while sleeping. Keep head elevated at 45 degree. Follow up ABG, chest x-r ay, CBC, CMP in the morning. Critical care time more than 35 minutes. Thank you and we will follow with you. Tia Godinez MD cc: [id number] TT: 08/16/2016 08:45:49 Confirmation # [id number] Dictation # [id number] tn
--- NOTE | 2016-08-16 09:35 | PN ---
DATE: 08/16/2016 REASON FOR CONSULTATION AND FOLLOWUP: Status post fall, trauma to the chest, AFib with rapid ventric ular rate. BRIEF CLINICAL HISTORY: This is a 56-year-old male with a past medical history significant for decom pensated congestive heart failure, multiple admissions, noncompliance with the medication, history of chronic atrial fibrillation, multiple times arrangement has been made for radiofrequency ablation fo r AFib, but patient did not go, who admitted again after having tripped and fell down on the chest of drawers and got trauma to the left side of the rib, but no bony injury. Repeat echo was done, sever jaspal decreased LV function. Previous echo dated 06/10/2015 showed 45% EF. Now, his EF looks like sign ificantly decreased. PHYSICAL EXAMINATION: VITAL SIGNS: Temperature afebrile, heart rate 120, blood pressure 108/67. HEENT: PERRLA. Extraocular muscles intact. NECK: Supple. No carotid bruits. No thyromegaly. CHEST: Clear to auscultation. HEART: S1, S2 regular. ABDOMEN: Soft. EXTREMITIES: Clubbing, cyanosis negative. BLOOD WORKUP: WBC 7.4, hemoglobin 13. , hematocrit 41.6, platelet count 103. Chemistry shows so dium 140, potassium 3.5, chloride 102, carbon dioxide 28, anion gap of 14, BUN 28, creatinine is 1.3. BNP 13,100. Total troponin 2.21 with total CPK of 364 and MB is 1.4%. IMPRESSION: Status post cardiac catheterization 3 times, nonobstructive coronary artery disease, mos t recently 2014 normal coronaries, positive troponin is secondary to renal insufficiency as well as r habdomyolysis. As total CPK is 1.4, doubt it is a myocardial infarction. Repeat echo shows signific antly decreased left ventricular function, severely dilated right ventricle, morbid obesity, diabetes , hypertension, hyperlipidemia, tobacco abuse, alcohol abuse. Repeat echo yesterday shows normal lef t ventricular wall thickness, left ventricular systolic function severely reduced, ejection fraction calculated 24%, right ventricle is moderately dilated, severely decreased right ventricular function. Atrial fibrillation with rapid ventricular rate, decompensated congestive heart failure secondary t o cardiomyopathy, nonischemic. RECOMMENDATION: Continue Lasix, continue verapamil to control the heart rate. The patient started y on Dobutrex, but did not tolerate, heart rate again and hypotensive, responded to the fluid. If heart rate, is being started again on Dobutrex this morning, if heart rate is an issue, we will change to Primacor. Continue Lasix. Discuss with the nursing staff taking care of. We will c ontrol the digoxin. We will give digoxin to control the heart rate. Follow the digoxin level. Thank you, Dr. Villagomez, for providing us the opportunity in taking care of the patient. We will fol low with you. Tia Rajan MD cc: [id number] TT: 08/16/2016 09:34:30 Confirmation # [id number] Dictation # [id number]
[2016-08-16] MEDS ORDERED: Pantoprazole 40 mg EC Tab PO ONE (10:00)
[2016-08-16] MEDS: Nystatin 100,000 Units/gm Topical Pow(15 gm) TOP SCH ×3 (10:11→22:51)
[2016-08-16] MEDS ORDERED: Digoxin 500 mcg/2ml (0.5 mg/2ml) Inj IVP ONE (10:13)
[2016-08-16 10:26] LABS: INR 1.74 (0.93-1.08)
--- NOTE | 2016-08-16 10:27 | PN ---
DATE: 08/16/2016 SUBJECTIVE: The patient has no complaints of any chest pain, no shortness of breath, no headaches. He says he feels better today than yesterday. PHYSICAL EXAMINATION: VITAL SIGNS: Temperature is 99.2, pulse 120, blood pressure 108/67, respirations 18. GENERAL: The patient comfortable, in no acute distress. HEENT: Anicteric sclerae. Moist mucosa. NECK: No JVD or adenopathy. CARDIAC: S1/S2. No murmurs. No rubs. Regular. RESPIRATORY: Clear to auscultation bilaterally. No wheezes, rales, or rhonchi. Good air entry. ABDOMEN: Bowel sounds are positive, soft, nontender, and nondistended. EXTREMITIES: No edema. Has 1+ pulses. LABORATORY DATA: White count of 7.4, hemoglobin 13.4, creatinine is 1.3. Abdominal ultrasound done showed suboptimal exam, hepatomegaly, ascites, splenomegaly, dilated common bile duct. Echo done jazzmine left ventricle is mildly dilated, systolic function severely impaired. Chest x-ray done shows poo r inspiration with low lung volumes. ASSESSMENT: 1. Hypotension, improved. 2. Atrial fibrillation with rapid rate. 3. Diabetes type 2. 4. Chronic obstructive pulmonary disease. 5. Pleural effusion. 6. Dyslipidemia. 7. Obesity with a body mass index of 42. 8. Congestive heart failure secondary to systolic dysfunction. 9. Dyslipidemia. PLAN: The patient has an echo that shows severely dilated right ventricle, decreased ejection fracti on. The patient has been placed on dobutamine. He is being followed by Dr. Rajan. The patient is al so being followed by Dr. Hernandez. The patient is going to continue with verapamil. The patient on Coumadin for anticoagulation. The patient's INR is subtherapeutic and he has been placed on Lovenox as well. The patient is on metformin for his diabetes. I will discontinue the patient's metformin. The patient is on Lasix daily. He is going to continue with Levemir. He is on Lipitor for dyslipid emia. The patient is on Solu-Medrol, will continue on Zestril. Going to continue in the ICU. I did speak with Dr. Hernandez yesterday reviewing the patient's critical care status and being in the ICU. We will continue to follow closely. Overall, prognosis is guarded. Axel Villagomez MD cc: [id number] TT: 08/16/2016 10:01:27 Confirmation # [id number] Dictation # [id number] jn
[2016-08-16] MEDS ORDERED: Lidocaine 2% Inj (20ml) ONE (10:46)
[2016-08-16 10:49] VITALS: PULSE 120
[2016-08-16] MEDS: Cefepime 1gm in NS 100ml 1 GM/100 ML BAG IVPB SCH ×2 (12:13→21:58)
[2016-08-16] MEDS ORDERED: Milrinone 20mg/100ml D5W 100 ML IV PRN ×2 (13:00→14:27)
[2016-08-16] MEDS ORDERED: Midazolam 2 MG/2 ML VIAL IVP PRN (14:09)
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
[2016-08-16] MEDS: Amiodarone 360 mg/D5W 200 ml 360 MG/200 ML BAG IV SCH (14:36)
[2016-08-16] MEDS: Vancomycin 1gm in NS 250ml 1 GM/250 ML BAG IVPB SCH (14:42)
[2016-08-16] MEDS: Enoxaparin 100 mg Syringe SC SCH (14:46)
[2016-08-16] MEDS: Insulin Reg-MEDIUM-Coverage SC SCH ×4 (14:46→21:56)
--- NOTE | 2016-08-16 15:52 | VASCULAR ---
PROCEDURE: Ultrasound and fluoroscopically placed left upper extremity PICC line. HISTORY: Rapid atrial fibrillation. Shortness of breath. Limited IV access. Needs PICC line. PHYSICIAN(S): John Paul Cannon MD. TECHNIQUE: The relative risks and indications of the procedure were explained to the patient and consent obtained. The patient was placed supine on the arteriogram table and the left arm prepped and draped in the usual sterile fashion. A tourniquet was applied to the left axilla. 1% Xylocaine was used to anesthetize the skin and soft tissues at the puncture site above the elbow. The left basilic vein was punctured under direct ultrasound guidance with a micropuncture set. A 0.018 guidewire was advanced centrally and used to measure the length to the SVC/RA junction. A 5 [place] dual-lumen PICC line 52 cm long was advanced to the SVC/RA junction. The catheter was flushed and secured. The patient tolerated the procedure well. IMPRESSION: 1. Ultrasound and fluoroscopically placed left upper extremity PICC line. A 5 [place] dual lumen PICC line 52 cm long was advanced to the SVC/RA junction.
[2016-08-16] MEDS ORDERED: Metoprolol 1 mg/ml Inj IVP ONE ×2 (16:33→21:01)
[2016-08-16] MEDS ORDERED: Metoprolol 1 mg/ml Inj IVP SCH ×2 (17:00→19:01)
--- NOTE | 2016-08-16 17:11 | PN ---
DATE: 08/16/2016 REFERRING PHYSICIAN: Dr. Axel Villagomez. SUBJECTIVE: He is lying in the bed, head at 45 degrees, was on noninvasive ventilation overnight and did well. Finally, he is on milrinone drip at present time. Also got amiodarone. Has a cough and shortness of breath. No chest pain, no nausea, no vomiting, no diarrhea. Has a rash in both groin, leg swelling. OBJECTIVE: GENERAL: No acute distress. VITAL SIGNS: Temperature is 98, heart rate is 124, respiratory rate is 24, blood pressure 123/85, pu lse ox 95% on nasal cannula. HEENT: Moist mucous membranes. Crowded airway. Mallampati score is 4. NECK: Supple. No JVD. LUNGS: Has a prolonged expiratory phase, some scattered rhonchi, has decreased breath sounds at the bases. HEART: Irregularly irregular. ABDOMEN: Obese, soft, nontender. EXTREMITIES: There is edema of both lower extremities. Both groin has a diffuse rash. NEUROLOGIC: Awake, alert, follows simple commands. MEDICATIONS: He is on Amaryl 4 mg daily, also Ativan 2 mg morning and at bedtime, Calan 80 mg 3 time s a day, Coumadin 7.5 mg daily, trazodone mg at bedtime, on Primacor drip, albuterol-Atrovent n ebulizer q. 4 hours, insulin coverage, digoxin 0.125 mg daily, Lasix 40 mg twice a day, Levemir 40 un its subcutaneously before breakfast, Lipitor 40 mg daily, metoprolol tartrate 50 mg twice a day, Love nox 100 mg subQ twice a day, cefepime 1 g IV q. 12 hours, amiodarone IV drip started, Protonix 40 mg daily, Singulair 10 mg daily, Solu-Medrol 40 mg q. 8 hours, vancomycin 1 g IV and Zestril 20 mg yvan y. LABORATORY DATA: Shows hemoglobin 13.4, hematocrit 41.6, WBC 7.4, platelet count is 103. INR 1.74. Blood gas this morning shows pH 7.42, pCO2 46/286. This is on nasal cannula. Sodium 140, potassium 3.5, chloride 100, bicarbonate 28, BUN 28, creatinine 1.3, glucose 180, calcium 8.3, magnesium 1.7. AST is 81, ALT is 363, LDH 62. Troponin less than 0.1. Albumin is 3.4. TSH 2.39. Chest x-ray fro m this morning shows mild crowded bronchovascular markings, basilar atelectasis consistent with heart failure. IMPRESSION AND PLAN: Cardiogenic shock, atrial fibrillation with rapid ventricular response, diabete s, hypertension, chronic obstructive lung disease, obstructive sleep apnea syndrome, pleural effusion , morbid obesity. Case discussed with nurse . Also spoke to palliative care. Agree with the p resent treatment. Continue Primacor. Continue amiodarone, diuretics. Encourage BiPAP use, bronchod ilator, keep head elevated at 45 degrees. Aspiration precaution. Antibiotics, anticoagulation. Fol low up ABG, chest x-ray, CBC, CMP in the morning. Critical care time minutes. Thank you and will follow with you. Tia Godinez MD cc: [id number] TT: 08/16/2016 17:10:52 Confirmation # [id number] Dictation # [id number] mn
[2016-08-16] MEDS: Milrinone 20mg/100ml D5W 100 ML IV PRN (20:19)
[2016-08-16] MEDS: guaiFENesin 200 mg/10 ml Syrup UD PO PRN (22:16)
[2016-08-17] MEDS: Metoprolol 1 mg/ml Inj IVP SCH ×5 (00:24→13:14)
[2016-08-17] MEDS: MethylPREDNISolone 40 mg Vial IVP SCH ×3 (00:25→22:08)
[2016-08-17] MEDS: guaiFENesin 200 mg/10 ml Syrup UD PO PRN (01:40)
[2016-08-17] MEDS: Amiodarone 360 mg/D5W 200 ml 360 MG/200 ML BAG IV SCH ×2 (02:00→11:26)
[2016-08-17] MEDS: Enoxaparin 100 mg Syringe SC SCH ×2 (02:30→18:57)
[2016-08-17] MEDS ORDERED: guaiFENesin DM 100 mg-10 mg/5 ml UD PO PRN (03:03)
[2016-08-17] MEDS: Ipratropium 0.02% Inhal Soln (0.5 mg/2.5 ml) UD IH SCH ×2 (04:00→06:58)
[2016-08-17] MEDS: Levalbuterol 1.25 MG/3 ML Inhal Soln UD IH SCH ×2 (04:00→06:58)
[2016-08-17 05:43] LABS: ARTERIAL BLOOD GAS HCO3 29.8 mmol/L (21-28); ARTERIAL BLOOD GAS O2 CAPACITY 16.2 mL/dl (16-24); ARTERIAL BLOOD GAS O2 CONTENT 15.1 ML/dl (15-23); ARTERIAL BLOOD GAS PH 7.42 (7.35-7.45); ARTERIAL BLOOD HGB O2 SAT 90.7 % (95.0-98.0); CARBOXYHEMOGLOBIN 1.9 % (0.5-1.5); HHB 6.5 % (0-5); METHEMOGLOBIN 0.9 % (0.0-3.0)
[2016-08-17] MEDS: Insulin Reg-MEDIUM-Coverage SC SCH ×4 (06:06→22:10)
[2016-08-17 06:36] LABS: HEMATOCRIT 35.6 % (42.0-52.0); MEAN CELL VOLUME 85.2 fL (80.0-105.0); MEAN CORPUSCULAR HGB CONC 32.9 g/dl (31.0-37.0); MEAN PLATELET VOLUME 10.4 fl (7.0-11.0); PLATELET COUNT 125 10^3/uL (120.0-450.0); WHITE BLOOD COUNT 13.1 10^3/ul (4.5-11.0)
[2016-08-17 06:48] LABS: ALB/GLOB RATIO 1.3 (1.1-1.8); ALKALINE PHOSPHATASE 55 U/L (38-133); ALT/SGPT 257 U/L (7-56); AST/SGOT 49 U/L (15-59); BILIRUBIN,TOTAL 0.9 mg/dL (0.2-1.3); BLOOD UREA NITROGEN 28 mg/dL (7-21); CALCIUM 8.2 mg/dL (8.4-10.5); CARBON DIOXIDE 30 mmol/L (21-33); CHLORIDE 101 mmol/L (98-107); GFR AFRICAN-AMERICAN > 60; GLUCOSE,RANDOM 104 mg/dL (70-110); MAGNESIUM 1.6 mg/dL (1.7-2.2); PHOSPHOROUS 2.4 mg/dL (2.5-4.5); POTASSIUM 3.8 mmol/L (3.6-5.0); SODIUM 138 mmol/L (132-148); TOTAL PROTEIN 5.8 g/dL (5.8-8.3)
[2016-08-17 06:56] LABS: ADD MANUAL DIFF? YES
[2016-08-17] MEDS ORDERED: Magnesium Sulfate 1 gm in D5W 1 GM/100 ML BAG IVPB ONE (07:20)
--- NOTE | 2016-08-17 07:27 | CP.CCUPN ---
Addendum entered and electronically signed by Jammie Ford DO 08/17/16 16:37: Pt evaluated by psych- stated he is willing to say. Rescinded AMA. Jammie Ford, PGY-1 Addendum entered and electronically signed by Jammie Ford DO 08/17/16 16:02: Pt AOx3, pt requesting to leave AMA- AMA risks/benefits explained to pt- pt signed paperwork. PICC line from LUE removed. Dressing placed. Jammie Ford, PGY-1 Original Note: <Jammie Ford - Last Filed: 08/17/16 16:01> CCU Subjective - Physician Review Events Since Last Encounter (Free Text): 08/17/16 07:23 cough overnight- cough syrup given. Episodes of tachycardia- given verapamil and Lopressor, only tolerated Bipap for 1.5 hr Subjective (Free Text): 08/16/16 07:44 Critical care progress note for Dr. Carole Ford, PGY-1 Pt S & E at bedside. Pt reports SOB improved overnight, improved chest tightness. Denies N/V/F/C, CP , abdominal pain, LE pain (resolved since yesterday). Is tolerating diet. 08/17/16 07:24 Critical care progress note for Dr. Carole Ford, PGY-1 Pt S & E at bedside. Pt reports poor sleep 2/2 cough overnight, given cough syrup with some relief. Pt reports continued SOB. Denies chest tightness, N/V/F/C, ab pain, LE pain, SNEED. CCU Objective - Vital Signs / Intake & Output Vital Signs (Last 4 hours): Vital Signs Temp Pulse Resp BP Pulse Ox 08/17/16 05:37 132 H 08/17/16 05:36 121 H 23 08/17/16 05:31 123 H 112/75 93 L 08/17/16 05:23 128 H 112/74 08/17/16 05:19 128 H 26 H 112/74 94 L 08/17/16 05:00 127 H 23 88/64 L 93 L 08/17/16 04:30 135 H 20 97/67 L 91 L 08/17/16 04:00 98.4 F 132 H 23 101/72 93 L 08/17/16 03:31 131 H 19 128/61 95 Intake and Output (Last 8hrs): Intake & Output 08/16/16 08/17/16 08/17/16 22:59 06:59 14:59 Intake Total 576 Output Total 1700 Balance -1124 Weight 127.187 kg Intake: IV 376 Left 376 Oral 200 Output: Urine 1700 Urethral (Huertas) 1700 Other: Voiding Method Indwelling Catheter - Physical Exam Head: Positive for: Atraumatic, Normocephalic Pupils: Positive for: PERRL Extroacular Muscles: Positive for: EOMI Conjunctiva: Positive for: Normal Ears: Positive for: Normal Mouth: Positive for: Moist Mucous Membranes Nose (External): Positive for: Atraumatic Neck: Positive for: Normal Range of Motion Respiratory/Chest: Positive for: Wheezes (mild Left ), Decreased Breath Sounds. Negative for: Clear to Auscultation, Respiratory Distress, Accessory Muscle Use, Rales, Retracting, Rhonchi, Tachypneic Cardiovascular: Positive for: Irregular Rhythm Abdomen: Positive for: Normal Bowel Sounds. Negative for: Tenderness, Distention (obese), Peritoneal Signs Upper Extremity: Positive for: Normal Inspection, Capillary Refill < 2s, Other ( PICC line in place in LUE- dressing with scant serosanginous strike through, intact). Negative for: Cyanosis, Edema Lower Extremity: Positive for: Edema (3+ pitting B/L). Negative for: Normal Inspection, Tenderness, Erythema, Temperature Abnormalties Neurological: Positive for: GCS=15, CN II-XII Intact, Speech Normal. Negative for: Norm Deep Tendon Reflexes Skin: Positive for: Warm, Dry. Negative for: Rashes Psychiatric: Positive for: Alert, Oriented x 3, Normal Insight, Normal Concentration - Medications Active Medications: Active Medications Generic Name Dose Route Start Last Admin Trade Name Freq PRN Reason Stop Dose Admin Atorvastatin Calcium 40 mg 08/14/16 21:45 08/14/16 22:59 Lipitor PO 40 mg DIN WILTON Administration Digoxin 0.125 mg 08/15/16 14:00 08/15/16 16:52 Lanoxin PO Not Given 1400 WILTON Enoxaparin Sodium 100 mg 08/16/16 14:30 08/17/16 02:30 Lovenox SC 100 mg Q12H WILTON Administration Protocol Furosemide 40 mg 08/15/16 10:00 08/15/16 09:15 Lasix PO 40 mg BID WILTON Administration Furosemide 40 mg 08/15/16 22:00 08/16/16 22:05 Lasix IVP 40 mg Q12 WITLON Administration Glimepiride 4 mg 08/15/16 10:00 08/15/16 09:18 Amaryl PO 4 mg DAILY WILTON Administration Guaifenesin/Dextromethorphan 5 ml 08/17/16 03:03 08/17/16 03:14 Robitussin Dm PO 5 ml Q4H PRN Administration Cough Cefepime HCl 1 gm in 100 mls @ 100 mls/hr 08/15/16 22:00 08/16/16 21:58 Maxipime 1gm IVPB 100 mls/hr Q12 WILTON Administration Protocol Dobutamine HCl/Dextrose 500 mg in 250 mls @ 9.253 mls/hr 08/16/16 10:11 08/16 10:11 Dobutamine/Dextrose 5% 500mg/250ml IV 9.253 mls/hr .Q24H PRN Administration TITRATE PER PROTOCOL Protocol 2.5 MCG/KG/MIN Vancomycin HCl 1 gm in 250 mls @ 167 mls/hr 08/16/16 13:00 08/16/16 14:42 Vancomycin 1gm IVPB 167 mls/hr DAILY [facility]IL[facility] Administration Protocol Amiodarone HCl/Dextrose 360 mg in 200 mls @ 16.667 mls/hr 08/16/16 14:30 04/04 02:00 Nexterone 360 Mg In D5w 200 Ml (Premix) IV 16.667 mls/hr .Q12H WILTON Administration Protocol 0.5 MG/MIN Milrinone Lactate/Dextrose 100 mls @ 7.403 mls/hr 08/16/16 20:10 08/16/16 20: 19 Primacor 20mg/100ml D5w IV 0.2 mcg/kg/min .[id number] PRN 7.403 mls/hr TITRATE PER MD ORDER Administration Protocol 0.2 MCG/KG/MIN Magnesium Sulfate/Dextrose 1 gm in 100 mls @ 100 mls/hr 08/17/16 07:20 Magnesium Sulfate 1 Gm/100 Ml D5w IVPB 08/17/16 08:19 ONCE ONE Insulin Detemir 40 unit 08/15/16 07:30 08/16/16 17:46 Levemir SC 40 unit ACBD WILTON Administration Insulin Human Regular 0 units 08/16/16 10:00 08/17/16 06:06 Humulin R Med SC Not Given Q6H WILTON Protocol Ipratropium Leota 0.5 mg 08/17/16 07:16 Atrovent IH [id number] PRN Wheezing Levalbuterol HCl 1.25 mg 08/17/16 07:16 Xopenex IH [id number] PRN Wheezing Lisinopril 20 mg 08/15/16 15:24 08/16/16 09:37 Zestril PO Not Given DAILY WILTON Lorazepam 2 mg 08/16/16 13:58 08/16/16 21:55 Ativan PO 2 mg AMHS WILTON Administration Protocol Methylprednisolone 40 mg 08/15/16 15:45 08/17/16 00:25 Solu-Medrol IVP 40 mg Q8H WILTON Administration Metoprolol Tartrate 50 mg 08/14/16 21:45 08/15/16 09:16 Lopressor PO 50 mg BID WILTON Administration Metoprolol Tartrate 5 mg 08/16/16 00:00 08/17/16 05:23 Lopressor IVP 5 mg Q6H [facility]IL[facility] Administration Midazolam HCl 0.5 mg 08/16/16 14:09 Versed Inj IVP ONCE PRN ANXIE Montelukast Sodium 10 mg 08/15/16 22:00 08/16/16 21:59 Singulair PO 10 mg HS WILTON Administration Mupirocin 0 gm 08/16/16 10:21 08/16/16 17:48 Bactroban Ointment TOP 1 dose BID WILTON Administration Nystatin 0 gm 08/16/16 10:20 08/16/16 22:51 Nystop Topical Powder TOP 1 dose Q12H WIL[facility] Administration Pantoprazole Sodium 40 mg 08/17/16 06:30 Proton[place] 0630 [facility] Potassium Phos/Sodium Phos 1 pkt 08/17/16 08:00 Neutra-Phos PO 08/17/16 08:01 ONCE ONE Trazodone HCl 200 mg 08/14/16 22:00 08/16/16 21:56 Desyrel PO 200 mg HS WILTON Administration Verapamil HCl 80 mg 08/15/16 15:24 08/16/16 17:31 Calan Tab PO Not Given TID WILTON Warfarin Sodium 7.5 mg 08/15/16 18:00 08/16/16 17:47 Coumadin PO 7.5 mg 1800 WIL[facility] Administration Protocol - Patient Studies Lab Studies: Microbiology Studies 08/15/16 16:46 Blood Culture - Preliminary Blood-Venous NO GROWTH AFTER 24 HOURS 08/15/16 14:45 Urine Culture - Final Urine,Catheterized No Growth (<1,000 CFU/ML) Lab Studies 08/17/16 08/17/16 08/17/16 Range/Units 07:07 06:15 06:15 WBC 13.1 H D (4.5-11.0) 10^3/ul RBC 4.18 (3.5-6.1) 10^6/uL Hgb 11.7 L (14.0-18.0) gm/dL Hct 35.6 L (42.0-52.0) % MCV 85.2 (80.0-105.0) fL MCH 28.0 (25.0-35.0) pg MCHC 32.9 (31.0-37.0) g/dl RDW 17.0 H (11.5-14.5) % Plt Count 125 (120.0-450.0) 10^3/uL MPV 10.4 (7.0-11.0) fl PT (9.9-11.8) Seconds INR (0.93-1.08) pCO2 (35-45) mm/Hg pO2 (80-100) mm/Hg HCO3 (21-28) mmol/L ABG pH (7.35-7.45) ABG Total CO2 (22-28) mmol.L ABG O2 Saturation (95-98) % ABG O2 Content (15-23) ML/dl ABG Base Excess (-2.0-3.0) mmol/L ABG Hemoglobin (11.7-17.4) g/dL ABG Carboxyhemoglobin (0.5-1.5) % POC ABG HHb (Measured) (0-5) % ABG Methemoglobin (0.0-3.0) % ABG O2 Capacity (16-24) mL/dl Hgb O2 Saturation (95.0-98.0) % FiO2 % Sodium 138 (132-148) mmol/L Potassium 3.8 (3.6-5.0) mmol/L Chloride 101 (98-107) mmol/L Carbon Dioxide 30 (21-33) mmol/L Anion Gap 11 (10-20) BUN 28 H (7-21) mg/dL Creatinine 1.0 (0.5-1.4) mg/dL Est GFR ( Amer) > 60 Est GFR (Non-Af Amer) > 60 POC Glucose (mg/dL) 104 (65-110) mg/dL Random Glucose 104 (70-110) mg/dL Calcium 8.2 L (8.4-10.5) mg/dL Phosphorus 2.4 L (2.5-4.5) mg/dL Magnesium 1.6 L (1.7-2.2) mg/dL Total Bilirubin 0.9 (0.2-1.3) mg/dL AST 49 (15-59) U/L ALT 257 H (7-56) U/L Alkaline Phosphatase 55 (38-133) U/L Total Protein 5.8 (5.8-8.3) g/dL Albumin 3.3 (3.0-4.8) g/dL Globulin 2.6 gm/dL Albumin/Globulin Ratio 1.3 (1.1-1.8) 08/17/16 08/17/16 08/16/16 Range/Units 05:15 05:09 21:55 WBC (4.5-11.0) 10^3/ul RBC (3.5-6.1) 10^6/uL Hgb (14.0-18.0) gm/dL Hct (42.0-52.0) % MCV (80.0-105.0) fL MCH (25.0-35.0) pg MCHC (31.0-37.0) g/dl RDW (11.5-14.5) % Plt Count (120.0-450.0) 10^3/uL MPV (7.0-11.0) fl PT (9.9-11.8) Seconds INR (0.93-1.08) pCO2 46 H (35-45) mm/Hg pO2 63.0 L (80-100) mm/Hg HCO3 29.8 H (21-28) mmol/L ABG pH 7.42 (7.35-7.45) ABG Total CO2 31.2 H (22-28) mmol.L ABG O2 Saturation 93.3 L (95-98) % ABG O2 Content 15.1 (15-23) ML/dl ABG Base Excess 4.6 H (-2.0-3.0) mmol/L ABG Hemoglobin 11.8 (11.7-17.4) g/dL ABG Carboxyhemoglobin 1.9 H (0.5-1.5) % POC ABG HHb (Measured) 6.5 H (0-5) % ABG Methemoglobin 0.9 (0.0-3.0) % ABG O2 Capacity 16.2 (16-24) mL/dl Hgb O2 Saturation 90.7 L (95.0-98.0) % FiO2 28.0 % Sodium (132-148) mmol/L Potassium (3.6-5.0) mmol/L Chloride (98-107) mmol/L Carbon Dioxide (21-33) mmol/L Anion Gap (10-20) BUN (7-21) mg/dL Creatinine (0.5-1.4) mg/dL Est GFR ( Amer) Est GFR (Non-Af Amer) POC Glucose (mg/dL) 112 H 214 H (65-110) mg/dL Random Glucose (70-110) mg/dL Calcium (8.4-10.5) mg/dL Phosphorus (2.5-4.5) mg/dL Magnesium (1.7-2.2) mg/dL Total Bilirubin (0.2-1.3) mg/dL AST (15-59) U/L ALT (7-56) U/L Alkaline Phosphatase (38-133) U/L Total Protein (5.8-8.3) g/dL Albumin (3.0-4.8) g/dL Globulin gm/dL Albumin/Globulin Ratio (1.1-1.8) 08/16/16 08/16/16 08/16/16 Range/Units 17:28 11:09 10:00 WBC (4.5-11.0) 10^3/ul RBC (3.5-6.1) 10^6/uL Hgb (14.0-18.0) gm/dL Hct (42.0-52.0) % MCV (80.0-105.0) fL MCH (25.0-35.0) pg MCHC (31.0-37.0) g/dl RDW (11.5-14.5) % Plt Count (120.0-450.0) 10^3/uL MPV (7.0-11.0) fl PT 18.8 H (9.9-11.8) Seconds INR 1.74 H (0.93-1.08) pCO2 (35-45) mm/Hg pO2 (80-100) mm/Hg HCO3 (21-28) mmol/L ABG pH (7.35-7.45) ABG Total CO2 (22-28) mmol.L ABG O2 Saturation (95-98) % ABG O2 Content (15-23) ML/dl ABG Base Excess (-2.0-3.0) mmol/L ABG Hemoglobin (11.7-17.4) g/dL ABG Carboxyhemoglobin (0.5-1.5) % POC ABG HHb (Measured) (0-5) % ABG Methemoglobin (0.0-3.0) % ABG O2 Capacity (16-24) mL/dl Hgb O2 Saturation (95.0-98.0) % FiO2 % Sodium (132-148) mmol/L Potassium (3.6-5.0) mmol/L Chloride (98-107) mmol/L Carbon Dioxide (21-33) mmol/L Anion Gap (10-20) BUN (7-21) mg/dL Creatinine (0.5-1.4) mg/dL Est GFR ( Amer) Est GFR (Non-Af Amer) POC Glucose (mg/dL) 254 H 258 H (65-110) mg/dL Random Glucose (70-110) mg/dL Calcium (8.4-10.5) mg/dL Phosphorus (2.5-4.5) mg/dL Magnesium (1.7-2.2) mg/dL Total Bilirubin (0.2-1.3) mg/dL AST (15-59) U/L ALT (7-56) U/L Alkaline Phosphatase (38-133) U/L Total Protein (5.8-8.3) g/dL Albumin (3.0-4.8) g/dL Globulin gm/dL Albumin/Globulin Ratio (1.1-1.8) 08/16/16 08/16/16 08/15/16 Range/Units 07:30 07:25 16:14 WBC (4.5-11.0) 10^3/ul RBC (3.5-6.1) 10^6/uL Hgb (14.0-18.0) gm/dL Hct (42.0-52.0) % MCV (80.0-105.0) fL MCH (25.0-35.0) pg MCHC (31.0-37.0) g/dl RDW (11.5-14.5) % Plt Count (120.0-450.0) 10^3/uL MPV (7.0-11.0) fl PT (9.9-11.8) Seconds INR (0.93-1.08) pCO2 46 H (35-45) mm/Hg pO2 86.0 (80-100) mm/Hg HCO3 29.8 H (21-28) mmol/L ABG pH 7.42 (7.35-7.45) ABG Total CO2 31.2 H (22-28) mmol.L ABG O2 Saturation 97.3 (95-98) % ABG O2 Content 15.8 (15-23) ML/dl ABG Base Excess 4.6 H (-2.0-3.0) mmol/L ABG Hemoglobin 11.8 (11.7-17.4) g/dL ABG Carboxyhemoglobin 1.8 H (0.5-1.5) % POC ABG HHb (Measured) 2.6 (0-5) % ABG Methemoglobin 1.2 (0.0-3.0) % ABG O2 Capacity 16.2 (16-24) mL/dl Hgb O2 Saturation 94.4 L (95.0-98.0) % FiO2 32.0 % Sodium (132-148) mmol/L Potassium (3.6-5.0) mmol/L Chloride (98-107) mmol/L Carbon Dioxide (21-33) mmol/L Anion Gap (10-20) BUN (7-21) mg/dL Creatinine (0.5-1.4) mg/dL Est GFR ( Amer) Est GFR (Non-Af Amer) POC Glucose (mg/dL) 180 H 169 H (65-110) mg/dL Random Glucose (70-110) mg/dL Calcium (8.4-10.5) mg/dL Phosphorus (2.5-4.5) mg/dL Magnesium (1.7-2.2) mg/dL Total Bilirubin (0.2-1.3) mg/dL AST (15-59) U/L ALT (7-56) U/L Alkaline Phosphatase (38-133) U/L Total Protein (5.8-8.3) g/dL Albumin (3.0-4.8) g/dL Globulin gm/dL Albumin/Globulin Ratio (1.1-1.8) Laboratory Results - last 24 hr 08/15/16 08/16/16 08/16/16 16:14 07:25 07:30 WBC RBC Hgb Hct MCV MCH MCHC RDW Plt Count MPV PT INR pCO2 46 H pO2 86.0 HCO3 29.8 H ABG pH 7.42 ABG Total CO2 31.2 H ABG O2 Saturation 97.3 ABG O2 Content 15.8 ABG Base Excess 4.6 H ABG Hemoglobin 11.8 ABG Carboxyhemoglobin 1.8 H POC ABG HHb (Measured) 2.6 ABG Methemoglobin 1.2 ABG O2 Capacity 16.2 Hgb O2 Saturation 94.4 L FiO2 32.0 Sodium Potassium Chloride Carbon Dioxide Anion Gap BUN Creatinine Est GFR ( Amer) Est GFR (Non-Af Amer) POC Glucose (mg/dL) 169 H 180 H Random Glucose Calcium Phosphorus Magnesium Total Bilirubin AST ALT Alkaline Phosphatase Total Protein Albumin Globulin Albumin/Globulin Ratio 08/16/16 08/16/16 08/16/16 10:00 11:09 17:28 WBC RBC Hgb Hct MCV MCH MCHC RDW Plt Count MPV PT 18.8 H INR 1.74 H pCO2 pO2 HCO3 ABG pH ABG Total CO2 ABG O2 Saturation ABG O2 Content ABG Base Excess ABG Hemoglobin ABG Carboxyhemoglobin POC ABG HHb (Measured) ABG Methemoglobin ABG O2 Capacity Hgb O2 Saturation FiO2 Sodium Potassium Chloride Carbon Dioxide Anion Gap BUN Creatinine Est GFR ( Amer) Est GFR (Non-Af Amer) POC Glucose (mg/dL) 258 H 254 H Random Glucose Calcium Phosphorus Magnesium Total Bilirubin AST ALT Alkaline Phosphatase Total Protein Albumin Globulin Albumin/Globulin Ratio 08/16/16 08/17/16 08/17/16 21:55 05:09 05:15 WBC RBC Hgb Hct MCV MCH MCHC RDW Plt Count MPV PT INR pCO2 46 H pO2 63.0 L HCO3 29.8 H ABG pH 7.42 ABG Total CO2 31.2 H ABG O2 Saturation 93.3 L ABG O2 Content 15.1 ABG Base Excess 4.6 H ABG Hemoglobin 11.8 ABG Carboxyhemoglobin 1.9 H POC ABG HHb (Measured) 6.5 H ABG Methemoglobin 0.9 ABG O2 Capacity 16.2 Hgb O2 Saturation 90.7 L FiO2 28.0 Sodium Potassium Chloride Carbon Dioxide Anion Gap BUN Creatinine Est GFR ( Amer) Est GFR (Non-Af Amer) POC Glucose (mg/dL) 214 H 112 H Random Glucose Calcium Phosphorus Magnesium Total Bilirubin AST ALT Alkaline Phosphatase Total Protein Albumin Globulin Albumin/Globulin Ratio 08/17/16 08/17/16 08/17/16 06:15 06:15 07:07 WBC 13.1 H D RBC 4.18 Hgb 11.7 L Hct 35.6 L MCV 85.2 MCH 28.0 MCHC 32.9 RDW 17.0 H Plt Count 125 MPV 10.4 PT INR pCO2 pO2 HCO3 ABG pH ABG Total CO2 ABG O2 Saturation ABG O2 Content ABG Base Excess ABG Hemoglobin ABG Carboxyhemoglobin POC ABG HHb (Measured) ABG Methemoglobin ABG O2 Capacity Hgb O2 Saturation FiO2 Sodium 138 Potassium 3.8 Chloride 101 Carbon Dioxide 30 Anion Gap 11 BUN 28 H Creatinine 1.0 Est GFR ( Amer) > 60 Est GFR (Non-Af Amer) > 60 POC Glucose (mg/dL) 104 Random Glucose 104 Calcium 8.2 L Phosphorus 2.4 L Magnesium 1.6 L Total Bilirubin 0.9 AST 49 ALT 257 H Alkaline Phosphatase 55 Total Protein 5.8 Albumin 3.3 Globulin 2.6 Albumin/Globulin Ratio 1.3 Fingerstick Blood Sugar Results: 112 Review of Systems - Review of Systems All systems: reviewed and no additional remarkable complaints except - Constitutional Constitutional: absent: Fever, Chills - EENT Eyes: UNREMARKABLE Ears: UNREMARKABLE Nose/Mouth/Throat: UNREMARKABLE - Cardiovascular Cardiovascular: Leg Edema. absent: Chest Pain, Lightheadedness - Respiratory Respiratory: Cough, Wheezing. absent: Pain on Inspiration - Gastrointestinal Gastrointestinal: absent: Abdominal Pain, Nausea, Vomiting - Musculoskeletal Musculoskeletal: absent: Myalgias - Psychiatric Psychiatric: Depression (hx) Critical Care Progress Note - Extremities/Vascular Does the Patient have a Central Venous Catheter?: Yes Insertion Site: LUE PICC line Does the Patient need a Central Venous Catheter?: Yes (vascular access poor, on multiple drips) Does the Patient have a Huertas Catheter?: Yes Does the Patient need a Huertas Catheter?: Yes Catheter Insertion Criteria: Need for accurate measurement of output in critically ill patient - Prophylaxis GI Prophylaxis GI: PPI - Prophylaxis DVT Prophylaxis DVT: Heparin SQ (drip) - Nutrition Nutrition: Nutrition Category Date Time Status Consistent Carbohydrate [DIET] Diets 08/16/16 Lunch Ordered Assessment/Plan - Assessment and Plan (Free Text) Assessment: 56M w/PMH sig for DM, HTN, CHF, Afib, HTN, COPD, WESLY, emphysema, anxiety, bipolar d/o, depression, LLE ischemia s/p thrombectomy, Hx PNA admitted to ICU for hypotension. Pt w/episodes of hypotension over last 24H due to cardiogenic shock, stabilized on Primacor and amio drips. Pt continuing to require ICU care. Plan: Neuro Hx peripheral neuropathy AOx 3 Stable CVS hx Afib, CHF, HTN, non obstructive CAD, DCM HR in 130's, has been 90-130's Trop 0.21, 0.2, now 0.11 BNP 5990 from 13, 100 Lopressor -hold for bradycardia Lipitor- held 2/2 transaminitis ASA Lisinopril w/holding parameters Verapamil w/holding parameters Coumadin 7.5mg QD Lovenox 100mg SC Q12H Cont Milrinone drip Cont Amiodarone drip Lasix 40mg Q12H Home meds: Dig, Lopressor with parameters Daily wts Strict I/Os Cards following proposal specialist consulted Resp hx COPD, WESLY, emphysema, PNA O2 in 93%, range in low 90's Target SaO2>90% 2/2 COPD/emphysema hx Bipap PRN Singulair Solu-medrol 40mg IVP Q8H Atrovent PRN Xopenex PRN Monitor Nephro BUN 28 Cr 1.0 (baseline 0.9) Monitor Hypokalemia- resolved K 3.8 Hypomagnesemia Mg 1.6 Replaced MgSO4 1gm x 1 Hypophosphatemia Phos 2.4 Replaced Neutra-Phos x 1 Monitor Target euvolemia GI HHD/DM diet Hx of gastric bypass Transaminitis- resolving AST 49 from 81 - down trending ALT 257 from 363- down trending Hyperbilirubinemia T bili 0.9 from 1.4 Avoid nephrotoxic meds Monitor GI consulted for choledocholithiasis/fatty liver Huertas discontinued FU U/A Monitor Endo Hx DM in setting of morbid obesity BS 104 ISS Levemir Accuchecks Target BS 140-180 per NICE sugar trial Heme Hgb 11.7 from 13.4 Hct 35.4 from 41.6 B/L LE dopplers neg for DVT Stable Monitor MSK Panniculitis Nystatin powder Mupirocin ointment to area surrounding s/p fall w/trauma to L chest PICC line in place in LUE Monitor skin break down ID Afebrile over last 24H Leukocytosis 13.1 from 7.4 Vanc 1gm Q24H Cefepime 1gm Q12H Procalc 0.57 Monitor Psych hx bipolar d/o, anxiety, depression Ativan 2mg AMHS Trazadone 200mg PO HS GI/DVT ppx Heparin Protonix Dispo Cont ICU care proposal specialist consulted NPO after MN for cardioversion in AM Pt stable for transfer to [facility] attending - Date & Time Date: 08/17/16 Time: 07:15 <Rob Hernandez - Last Filed: 08/17/16 18:07> CCU Objective - Vital Signs / Intake & Output Vital Signs (Last 4 hours): Vital Signs Pulse Resp BP Pulse Ox 08/17/16 14:00 117 H 20 140/78 92 L Intake and Output (Last 8hrs): Intake & Output 08/17/16 08/17/16 08/17/16 06:59 14:59 22:59 Intake Total 576 100 Output Total 1700 300 Balance -1124 -200 Weight 280 lb 6.4 oz Intake: IV 376 100 Left 376 Oral 200 Output: Urine 1700 300 Urethral (Huertas) 1700 300 - Medications Active Medications: Active Medications Generic Name Dose Route Start Last Admin Trade Name Freq PRN Reason Stop Dose Admin Amiodarone HCl 200 mg 08/22/16 10:00 Cordarone PO DAILY [facility] Amiodarone HCl 400 mg 08/17/16 15:12 Cordarone PO 08/21/16 23:59 TID WILTON Atorvastatin Calcium 40 mg 08/14/16 21:45 08/14/16 22:59 Lipitor PO 40 mg DIN WILTON Administration Carvedilol 3.125 mg 08/17/16 18:00 Coreg PO BID WILTON Digoxin 0.125 mg 08/15/16 14:00 08/15/16 16:52 Lanoxin PO Not Given 1400 [facility] Enoxaparin Sodium 100 mg 08/16/16 14:30 08/17/16 02:30 Lovenox SC 08/17/16 23:59 100 mg Q12H WILTON Administration Protocol Furosemide 40 mg 08/15/16 10:00 08/15/16 09:15 Lasix PO 40 mg BID WILTON Administration Furosemide 40 mg 08/15/16 22:00 08/17/16 10:27 Lasix IVP 40 mg Q12 WILTON Administration Glimepiride 4 mg 08/15/16 10:00 08/15/16 09:18 Amaryl PO 4 mg DAILY WILTON Administration Guaifenesin/Dextromethorphan 5 ml 08/17/16 03:03 08/17/16 03:14 Robitussin Dm PO 5 ml Q4H PRN Administration Cough Hydralazine HCl 10 mg 08/17/16 15:03 Apresoline PO QID PRN for sbp >170 and Diastolic>100 Cefepime HCl 1 gm in 100 mls @ 100 mls/hr 08/15/16 22:00 08/17/16 10:27 Maxipime 1gm IVPB 100 mls/hr Q12 WILTON Administration Protocol Vancomycin HCl 1 gm in 250 mls @ 167 mls/hr 08/16/16 13:00 08/17/16 11:09 Vancomycin 1gm IVPB 167 mls/hr DAILY WILTON Administration Protocol Milrinone Lactate/Dextrose 100 mls @ 7.403 mls/hr 08/16/16 20:10 08/17/16 09: 51 Primacor 20mg/100ml D5w IV 0.2 mcg/kg/min .[id number] PRN 7.403 mls/hr TITRATE PER MD ORDER Administration Protocol 0.2 MCG/KG/MIN Insulin Detemir 40 unit 08/15/16 07:30 08/17/16 07:51 Levemir SC 40 unit ACBD WILTON Administration Insulin Human Regular 0 units 08/17/16 16:30 Humulin R Med SC ACHS WILTON Protocol Ipratropium Leota 0.5 mg 08/17/16 07:16 Atrovent IH [id number] PRN Wheezing Levalbuterol HCl 1.25 mg 08/17/16 07:16 Xopenex IH [id number] PRN Wheezing Lisinopril 2.5 mg 08/18/16 15:24 Zestril PO DAILY [facility] Lorazepam 2 mg 08/16/16 13:58 08/17/16 14:25 Ativan PO 2 mg AMHS [facility] Administration Protocol Lorazepam 1 mg 08/17/16 17:46 Ativan PO BID PRN Anxiety Protocol Methylprednisolone 40 mg 08/15/16 15:45 08/17/16 07:51 Solu-Medrol IVP 40 mg Q8H [facility] Administration Metoprolol Tartrate 50 mg 08/14/16 21:45 08/15/16 09:16 Lopressor PO 50 mg BID [facility] Administration Metoprolol Tartrate 5 mg 08/16/16 00:00 08/17/16 13:08 Lopressor IVP 5 mg Q6H [facility] Administration Midazolam HCl 0.5 mg 08/16/16 14:09 Versed Inj IVP ONCE PRN ANXIE Montelukast Sodium 10 mg 08/15/16 22:00 08/16/16 21:59 Singulair PO 10 mg HS [facility] Administration Mupirocin 1 gm 08/17/16 13:27 Bactroban Ointment TOP BID [facility] Nystatin 0 gm 08/16/16 10:20 08/17/16 10:28 Nystop Topical Powder TOP 1 dose Q12H [facility] Administration Pantoprazole Sodium 40 mg 08/17/16 06:30 08/17/16 07:49 Protonix Ec Tab PO 40 mg 0630 [facility] Administration Trazodone HCl 200 mg 08/14/16 22:00 08/16/16 21:56 Desyrel PO 200 mg HS [facility] Administration Verapamil HCl 80 mg 08/15/16 15:24 08/16/16 17:31 Calan Tab PO Not Given TID [facility] Warfarin Sodium 7.5 mg 08/15/16 18:00 08/16/16 17:47 Coumadin PO 7.5 mg 1800 [facility] Administration Protocol - Patient Studies Lab Studies: Microbiology Studies 08/15/16 16:46 Blood Culture - Preliminary Blood-Venous NO GROWTH AFTER 48 HOURS Lab Studies 08/17/16 08/17/16 08/17/16 Range/Units 11:59 07:07 06:15 WBC (4.5-11.0) 10^3/ul RBC (3.5-6.1) 10^6/uL Hgb (14.0-18.0) gm/dL Hct (42.0-52.0) % MCV (80.0-105.0) fL MCH (25.0-35.0) pg MCHC (31.0-37.0) g/dl RDW (11.5-14.5) % Plt Count (120.0-450.0) 10^3/uL MPV (7.0-11.0) fl Neutrophils % (Manual) (50.0-70.0) % Band Neutrophils % (0-2) % Lymphocytes % (Manual) (22.0-35.0) % Atypical Lymphs % (0.0-0.0) % Monocytes % (Manual) (1.0-6.0) % Platelet Evaluation (NORMAL) Hypochromasia Poikilocytosis (manual Anisocytosis (manual) Tear Drop Cells Ovalocytes pCO2 (35-45) mm/Hg pO2 (80-100) mm/Hg HCO3 (21-28) mmol/L ABG pH (7.35-7.45) ABG Total CO2 (22-28) mmol.L ABG O2 Saturation (95-98) % ABG O2 Content (15-23) ML/dl ABG Base Excess (-2.0-3.0) mmol/L ABG Hemoglobin (11.7-17.4) g/dL ABG Carboxyhemoglobin (0.5-1.5) % POC ABG HHb (Measured) (0-5) % ABG Methemoglobin (0.0-3.0) % ABG O2 Capacity (16-24) mL/dl Hgb O2 Saturation (95.0-98.0) % FiO2 % Sodium (132-148) mmol/L Potassium (3.6-5.0) mmol/L Chloride (98-107) mmol/L Carbon Dioxide (21-33) mmol/L Anion Gap (10-20) BUN (7-21) mg/dL Creatinine (0.5-1.4) mg/dL Est GFR ( Amer) Est GFR (Non-Af Amer) POC Glucose (mg/dL) 104 (65-110) mg/dL Random Glucose (70-110) mg/dL Calcium (8.4-10.5) mg/dL Phosphorus (2.5-4.5) mg/dL Magnesium (1.7-2.2) mg/dL Total Bilirubin (0.2-1.3) mg/dL AST (15-59) U/L ALT (7-56) U/L Alkaline Phosphatase (38-133) U/L NT-Pro-B Natriuret Pep 5990 H (0-450) pg/mL Total Protein (5.8-8.3) g/dL Albumin (3.0-4.8) g/dL Globulin gm/dL Albumin/Globulin Ratio (1.1-1.8) Urine Color Yellow (YELLOW) Urine Appearance Sl cloudy (CLEAR) Urine pH 5.0 (4.7-8.0) Ur Specific Anderson 1.020 (1.005-1.035) Urine Protein Trace H (<30 mg/dL) mg/dL Urine Glucose (UA) 100 H (NEGATIVE) mg/dL Urine Ketones Negative (NEGATIVE) mg/dL Urine Blood Large H (NEGATIVE) Urine Nitrate Negative (NEGATIVE) Urine Bilirubin Negative (NEGATIVE) Urine Urobilinogen 0.2 (<1 E.U./dL) E.U./dL Ur Leukocyte Esterase Moderate H (NEGATIVE) Ke/uL Urine RBC Tntc (0-2) /hpf Urine WBC 25 - 30 (0-6) /hpf Ur Epithelial Cells 0 - 2 (0-5) /hpf Amorphous Sediment Few Urine Bacteria Many (NEG) Urine Other Uyeast 08/17/16 08/17/16 08/17/16 Range/Units 06:15 06:15 05:15 WBC 13.1 H D (4.5-11.0) 10^3/ul RBC 4.18 (3.5-6.1) 10^6/uL Hgb 11.7 L (14.0-18.0) gm/dL Hct 35.6 L (42.0-52.0) % MCV 85.2 (80.0-105.0) fL MCH 28.0 (25.0-35.0) pg MCHC 32.9 (31.0-37.0) g/dl RDW 17.0 H (11.5-14.5) % Plt Count 125 (120.0-450.0) 10^3/uL MPV 10.4 (7.0-11.0) fl Neutrophils % (Manual) 86 H (50.0-70.0) % Band Neutrophils % 5 H (0-2) % Lymphocytes % (Manual) 4 L (22.0-35.0) % Atypical Lymphs % 1 H (0.0-0.0) % Monocytes % (Manual) 4 (1.0-6.0) % Platelet Evaluation Sl.dec (NORMAL) Hypochromasia 1+ Poikilocytosis (manual Slight Anisocytosis (manual) 1+ Tear Drop Cells Slight Ovalocytes Slight pCO2 46 H (35-45) mm/Hg pO2 63.0 L (80-100) mm/Hg HCO3 29.8 H (21-28) mmol/L ABG pH 7.42 (7.35-7.45) ABG Total CO2 31.2 H (22-28) mmol.L ABG O2 Saturation 93.3 L (95-98) % ABG O2 Content 15.1 (15-23) ML/dl ABG Base Excess 4.6 H (-2.0-3.0) mmol/L ABG Hemoglobin 11.8 (11.7-17.4) g/dL ABG Carboxyhemoglobin 1.9 H (0.5-1.5) % POC ABG HHb (Measured) 6.5 H (0-5) % ABG Methemoglobin 0.9 (0.0-3.0) % ABG O2 Capacity 16.2 (16-24) mL/dl Hgb O2 Saturation 90.7 L (95.0-98.0) % FiO2 28.0 % Sodium 138 (132-148) mmol/L Potassium 3.8 (3.6-5.0) mmol/L Chloride 101 (98-107) mmol/L Carbon Dioxide 30 (21-33) mmol/L Anion Gap 11 (10-20) BUN 28 H (7-21) mg/dL Creatinine 1.0 (0.5-1.4) mg/dL Est GFR ( Amer) > 60 Est GFR (Non-Af Amer) > 60 POC Glucose (mg/dL) (65-110) mg/dL Random Glucose 104 (70-110) mg/dL Calcium 8.2 L (8.4-10.5) mg/dL Phosphorus 2.4 L (2.5-4.5) mg/dL Magnesium 1.6 L (1.7-2.2) mg/dL Total Bilirubin 0.9 (0.2-1.3) mg/dL AST 49 (15-59) U/L ALT 257 H (7-56) U/L Alkaline Phosphatase 55 (38-133) U/L NT-Pro-B Natriuret Pep (0-450) pg/mL Total Protein 5.8 (5.8-8.3) g/dL Albumin 3.3 (3.0-4.8) g/dL Globulin 2.6 gm/dL Albumin/Globulin Ratio 1.3 (1.1-1.8) Urine Color (YELLOW) Urine Appearance (CLEAR) Urine pH (4.7-8.0) Ur Specific Anderson (1.005-1.035) Urine Protein (<30 mg/dL) mg/dL Urine Glucose (UA) (NEGATIVE) mg/dL Urine Ketones (NEGATIVE) mg/dL Urine Blood (NEGATIVE) Urine Nitrate (NEGATIVE) Urine Bilirubin (NEGATIVE) Urine Urobilinogen (<1 E.U./dL) E.U./dL Ur Leukocyte Esterase (NEGATIVE) Ke/uL Urine RBC (0-2) /hpf Urine WBC (0-6) /hpf Ur Epithelial Cells (0-5) /hpf Amorphous Sediment Urine Bacteria (NEG) Urine Other 08/17/16 08/16/16 08/16/16 Range/Units 05:09 21:55 17:28 WBC (4.5-11.0) 10^3/ul RBC (3.5-6.1) 10^6/uL Hgb (14.0-18.0) gm/dL Hct (42.0-52.0) % MCV (80.0-105.0) fL MCH (25.0-35.0) pg MCHC (31.0-37.0) g/dl RDW (11.5-14.5) % Plt Count (120.0-450.0) 10^3/uL MPV (7.0-11.0) fl Neutrophils % (Manual) (50.0-70.0) % Band Neutrophils % (0-2) % Lymphocytes % (Manual) (22.0-35.0) % Atypical Lymphs % (0.0-0.0) % Monocytes % (Manual) (1.0-6.0) % Platelet Evaluation (NORMAL) Hypochromasia Poikilocytosis (manual Anisocytosis (manual) Tear Drop Cells Ovalocytes pCO2 (35-45) mm/Hg pO2 (80-100) mm/Hg HCO3 (21-28) mmol/L ABG pH (7.35-7.45) ABG Total CO2 (22-28) mmol.L ABG O2 Saturation (95-98) % ABG O2 Content (15-23) ML/dl ABG Base Excess (-2.0-3.0) mmol/L ABG Hemoglobin (11.7-17.4) g/dL ABG Carboxyhemoglobin (0.5-1.5) % POC ABG HHb (Measured) (0-5) % ABG Methemoglobin (0.0-3.0) % ABG O2 Capacity (16-24) mL/dl Hgb O2 Saturation (95.0-98.0) % FiO2 % Sodium (132-148) mmol/L Potassium (3.6-5.0) mmol/L Chloride (98-107) mmol/L Carbon Dioxide (21-33) mmol/L Anion Gap (10-20) BUN (7-21) mg/dL Creatinine (0.5-1.4) mg/dL Est GFR ( Amer) Est GFR (Non-Af Amer) POC Glucose (mg/dL) 112 H 214 H 254 H (65-110) mg/dL Random Glucose (70-110) mg/dL Calcium (8.4-10.5) mg/dL Phosphorus (2.5-4.5) mg/dL Magnesium (1.7-2.2) mg/dL Total Bilirubin (0.2-1.3) mg/dL AST (15-59) U/L ALT (7-56) U/L Alkaline Phosphatase (38-133) U/L NT-Pro-B Natriuret Pep (0-450) pg/mL Total Protein (5.8-8.3) g/dL Albumin (3.0-4.8) g/dL Globulin gm/dL Albumin/Globulin Ratio (1.1-1.8) Urine Color (YELLOW) Urine Appearance (CLEAR) Urine pH (4.7-8.0) Ur Specific Anderson (1.005-1.035) Urine Protein (<30 mg/dL) mg/dL Urine Glucose (UA) (NEGATIVE) mg/dL Urine Ketones (NEGATIVE) mg/dL Urine Blood (NEGATIVE) Urine Nitrate (NEGATIVE) Urine Bilirubin (NEGATIVE) Urine Urobilinogen (<1 E.U./dL) E.U./dL Ur Leukocyte Esterase (NEGATIVE) Ke/uL Urine RBC (0-2) /hpf Urine WBC (0-6) /hpf Ur Epithelial Cells (0-5) /hpf Amorphous Sediment Urine Bacteria (NEG) Urine Other 08/16/16 Range/Units 11:09 WBC (4.5-11.0) 10^3/ul RBC (3.5-6.1) 10^6/uL Hgb (14.0-18.0) gm/dL Hct (42.0-52.0) % MCV (80.0-105.0) fL MCH (25.0-35.0) pg MCHC (31.0-37.0) g/dl RDW (11.5-14.5) % Plt Count (120.0-450.0) 10^3/uL MPV (7.0-11.0) fl Neutrophils % (Manual) (50.0-70.0) % Band Neutrophils % (0-2) % Lymphocytes % (Manual) (22.0-35.0) % Atypical Lymphs % (0.0-0.0) % Monocytes % (Manual) (1.0-6.0) % Platelet Evaluation (NORMAL) Hypochromasia Poikilocytosis (manual Anisocytosis (manual) Tear Drop Cells Ovalocytes pCO2 (35-45) mm/Hg pO2 (80-100) mm/Hg HCO3 (21-28) mmol/L ABG pH (7.35-7.45) ABG Total CO2 (22-28) mmol.L ABG O2 Saturation (95-98) % ABG O2 Content (15-23) ML/dl ABG Base Excess (-2.0-3.0) mmol/L ABG Hemoglobin (11.7-17.4) g/dL ABG Carboxyhemoglobin (0.5-1.5) % POC ABG HHb (Measured) (0-5) % ABG Methemoglobin (0.0-3.0) % ABG O2 Capacity (16-24) mL/dl Hgb O2 Saturation (95.0-98.0) % FiO2 % Sodium (132-148) mmol/L Potassium (3.6-5.0) mmol/L Chloride (98-107) mmol/L Carbon Dioxide (21-33) mmol/L Anion Gap (10-20) BUN (7-21) mg/dL Creatinine (0.5-1.4) mg/dL Est GFR ( Amer) Est GFR (Non-Af Amer) POC Glucose (mg/dL) 258 H (65-110) mg/dL Random Glucose (70-110) mg/dL Calcium (8.4-10.5) mg/dL Phosphorus (2.5-4.5) mg/dL Magnesium (1.7-2.2) mg/dL Total Bilirubin (0.2-1.3) mg/dL AST (15-59) U/L ALT (7-56) U/L Alkaline Phosphatase (38-133) U/L NT-Pro-B Natriuret Pep (0-450) pg/mL Total Protein (5.8-8.3) g/dL Albumin (3.0-4.8) g/dL Globulin gm/dL Albumin/Globulin Ratio (1.1-1.8) Urine Color (YELLOW) Urine Appearance (CLEAR) Urine pH (4.7-8.0) Ur Specific Anderson (1.005-1.035) Urine Protein (<30 mg/dL) mg/dL Urine Glucose (UA) (NEGATIVE) mg/dL Urine Ketones (NEGATIVE) mg/dL Urine Blood (NEGATIVE) Urine Nitrate (NEGATIVE) Urine Bilirubin (NEGATIVE) Urine Urobilinogen (<1 E.U./dL) E.U./dL Ur Leukocyte Esterase (NEGATIVE) Ke/uL Urine RBC (0-2) /hpf Urine WBC (0-6) /hpf Ur Epithelial Cells (0-5) /hpf Amorphous Sediment Urine Bacteria (NEG) Urine Other Laboratory Results - last 24 hr 08/16/16 08/16/16 08/16/16 11:09 17:28 21:55 WBC RBC Hgb Hct MCV MCH MCHC RDW Plt Count MPV Neutrophils % (Manual) Band Neutrophils % Lymphocytes % (Manual) Atypical Lymphs % Monocytes % (Manual) Platelet Evaluation Hypochromasia Poikilocytosis (manual Anisocytosis (manual) Tear Drop Cells Ovalocytes pCO2 pO2 HCO3 ABG pH ABG Total CO2 ABG O2 Saturation ABG O2 Content ABG Base Excess ABG Hemoglobin ABG Carboxyhemoglobin POC ABG HHb (Measured) ABG Methemoglobin ABG O2 Capacity Hgb O2 Saturation FiO2 Sodium Potassium Chloride Carbon Dioxide Anion Gap BUN Creatinine Est GFR ( Amer) Est GFR (Non-Af Amer) POC Glucose (mg/dL) 258 H 254 H 214 H Random Glucose Calcium Phosphorus Magnesium Total Bilirubin AST ALT Alkaline Phosphatase NT-Pro-B Natriuret Pep Total Protein Albumin Globulin Albumin/Globulin Ratio Urine Color Urine Appearance Urine pH Ur Specific Anderson Urine Protein Urine Glucose (UA) Urine Ketones Urine Blood Urine Nitrate Urine Bilirubin Urine Urobilinogen Ur Leukocyte Esterase Urine RBC Urine WBC Ur Epithelial Cells Amorphous Sediment Urine Bacteria Urine Other 08/17/16 08/17/16 08/17/16 05:09 05:15 06:15 WBC 13.1 H D RBC 4.18 Hgb 11.7 L Hct 35.6 L MCV 85.2 MCH 28.0 MCHC 32.9 RDW 17.0 H Plt Count 125 MPV 10.4 Neutrophils % (Manual) 86 H Band Neutrophils % 5 H Lymphocytes % (Manual) 4 L Atypical Lymphs % 1 H Monocytes % (Manual) 4 Platelet Evaluation Sl.dec Hypochromasia 1+ Poikilocytosis (manual Slight Anisocytosis (manual) 1+ Tear Drop Cells Slight Ovalocytes Slight pCO2 46 H pO2 63.0 L HCO3 29.8 H ABG pH 7.42 ABG Total CO2 31.2 H ABG O2 Saturation 93.3 L ABG O2 Content 15.1 ABG Base Excess 4.6 H ABG Hemoglobin 11.8 ABG Carboxyhemoglobin 1.9 H POC ABG HHb (Measured) 6.5 H ABG Methemoglobin 0.9 ABG O2 Capacity 16.2 Hgb O2 Saturation 90.7 L FiO2 28.0 Sodium Potassium Chloride Carbon Dioxide Anion Gap BUN Creatinine Est GFR ( Amer) Est GFR (Non-Af Amer) POC Glucose (mg/dL) 112 H Random Glucose Calcium Phosphorus Magnesium Total Bilirubin AST ALT Alkaline Phosphatase NT-Pro-B Natriuret Pep Total Protein Albumin Globulin Albumin/Globulin Ratio Urine Color Urine Appearance Urine pH Ur Specific Anderson Urine Protein Urine Glucose (UA) Urine Ketones Urine Blood Urine Nitrate Urine Bilirubin Urine Urobilinogen Ur Leukocyte Esterase Urine RBC Urine WBC Ur Epithelial Cells Amorphous Sediment Urine Bacteria Urine Other 08/17/16 08/17/16 08/17/16 06:15 06:15 07:07 WBC RBC Hgb Hct MCV MCH MCHC RDW Plt Count MPV Neutrophils % (Manual) Band Neutrophils % Lymphocytes % (Manual) Atypical Lymphs % Monocytes % (Manual) Platelet Evaluation Hypochromasia Poikilocytosis (manual Anisocytosis (manual) Tear Drop Cells Ovalocytes pCO2 pO2 HCO3 ABG pH ABG Total CO2 ABG O2 Saturation ABG O2 Content ABG Base Excess ABG Hemoglobin ABG Carboxyhemoglobin POC ABG HHb (Measured) ABG Methemoglobin ABG O2 Capacity Hgb O2 Saturation FiO2 Sodium 138 Potassium 3.8 Chloride 101 Carbon Dioxide 30 Anion Gap 11 BUN 28 H Creatinine 1.0 Est GFR ( Amer) > 60 Est GFR (Non-Af Amer) > 60 POC Glucose (mg/dL) 104 Random Glucose 104 Calcium 8.2 L Phosphorus 2.4 L Magnesium 1.6 L Total Bilirubin 0.9 AST 49 ALT 257 H Alkaline Phosphatase 55 NT-Pro-B Natriuret Pep 5990 H Total Protein 5.8 Albumin 3.3 Globulin 2.6 Albumin/Globulin Ratio 1.3 Urine Color Urine Appearance Urine pH Ur Specific Anderson Urine Protein Urine Glucose (UA) Urine Ketones Urine Blood Urine Nitrate Urine Bilirubin Urine Urobilinogen Ur Leukocyte Esterase Urine RBC Urine WBC Ur Epithelial Cells Amorphous Sediment Urine Bacteria Urine Other 08/17/16 11:59 WBC RBC Hgb Hct MCV MCH MCHC RDW Plt Count MPV Neutrophils % (Manual) Band Neutrophils % Lymphocytes % (Manual) Atypical Lymphs % Monocytes % (Manual) Platelet Evaluation Hypochromasia Poikilocytosis (manual Anisocytosis (manual) Tear Drop Cells Ovalocytes pCO2 pO2 HCO3 ABG pH ABG Total CO2 ABG O2 Saturation ABG O2 Content ABG Base Excess ABG Hemoglobin ABG Carboxyhemoglobin POC ABG HHb (Measured) ABG Methemoglobin ABG O2 Capacity Hgb O2 Saturation FiO2 Sodium Potassium Chloride Carbon Dioxide Anion Gap BUN Creatinine Est GFR ( Amer) Est GFR (Non-Af Amer) POC Glucose (mg/dL) Random Glucose Calcium Phosphorus Magnesium Total Bilirubin AST ALT Alkaline Phosphatase NT-Pro-B Natriuret Pep Total Protein Albumin Globulin Albumin/Globulin Ratio Urine Color Yellow Urine Appearance Sl cloudy Urine pH 5.0 Ur Specific Anderson 1.020 Urine Protein Trace H Urine Glucose (UA) 100 H Urine Ketones Negative Urine Blood Large H Urine Nitrate Negative Urine Bilirubin Negative Urine Urobilinogen 0.2 Ur Leukocyte Esterase Moderate H Urine RBC Tntc Urine WBC 25 - 30 Ur Epithelial Cells 0 - 2 Amorphous Sediment Few Urine Bacteria Many Urine Other Uyeast Critical Care Progress Note - Nutrition Nutrition: Nutrition Category Date Time Status Consistent Carbohydrate [DIET] Diets 08/16/16 Lunch Ordered NPO past midnight [NPO Diet] [DIET] Diets 08/18/16 Breakfast Ordered Addendum Addendum: 08/17/16 18:03 patient was seen, examined and discussed with Dr. Ford. her note reflects my exam, assessment and plan, except as below. Meds/Labs/ONE reviewed 56 yo male with resolved cardiogenic shock/AHF, still in afib wih RVR despite multiple trials of anti-arrhythmics: including amiodarone, CCB, BB, dig. Discussed with cardiology service (Dr. Rajan) and EPI service (Dr. Hampton)--> patient failed cardioversion in the past, thus was scheduled for ablation by Dr. Bonilla (non [facility] MD) in outside facility. Dr. Godinez spoke with Dr. Bonilla and arranged transfer to [facility], where the procedure was supposed to take place. ccm time 40 min
[2016-08-17] MEDS: Pantoprazole 40 mg EC Tab PO SCH (07:49)
[2016-08-17] MEDS: Insulin Detemir 100 units/ml Vial (Levemir) SC SCH ×2 (07:51→19:14)
[2016-08-17] MEDS ORDERED: Ipratropium 0.02% Inhal Soln (0.5 mg/2.5 ml) UD IH SCH (08:00)
[2016-08-17] MEDS ORDERED: Levalbuterol 1.25 MG/3 ML Inhal Soln UD IH SCH (08:00)
[2016-08-17] MEDS ORDERED: Potassium & Sodium Phosphate PO ONE (08:00)
--- NOTE | 2016-08-17 08:07 | CON ---
DATE: 08/16/2016 This patient was seen and evaluated earlier today. This is a 56-year-old patient with multiple medical comorbidities. The patient has nonobstructive coronary artery disease, cardiomyopathy, ejection fraction of 24%, obese, history of obstructive sleep apnea, atrial fibrillation, diabetes mellitus and hypertension who was initially admitted for atrial fibrillation with rapid ventricular response and presented with palpitations. The patient had mentioned that he tripped, fell and hit his left side of the abdomen and had some chest pain. The patient was found to have a moderately large right pleural effusion with compression atelectasis versus airspace disease. The patient was found to have elevated LFTs and GI consult was requested to evaluate it. PAST MEDICAL HISTORY: Is as above, history of hypertension, poorly compliant. The patient was on Coumadin. FAMILY HISTORY: His father of liver disease at 60. SOCIAL HISTORY: Denies smoking. No alcohol. He quit smoking about 20 years ago. REVIEW OF SYSTEMS: Positive as above. Other systems reviewed and negative. PHYSICAL EXAMINATION: GENERAL: The patient is lying on the bed, not in acute distress. VITAL SIGNS: Pulse 111, blood pressure is 93/66, respirations 20 and O2 saturation 90%. HEENT: Atraumatic and anicteric. NECK: Supple. HEART: S1, S2 heard. LUNGS: Bilateral air entry present. ABDOMEN: Soft. EXTREMITIES: Bilateral edema present. NEUROLOGIC: Alert and evaluated. LABORATORY DATA: INR 1.74. Ultrasound of the abdomen done which showed common bile duct of 7 mm. Gallbladder sludge. AST 81, ALT is 366, alkaline phosphatase normal at 62 and total bilirubin 1.4. Hematology: Hemoglobin 13.4 , hematocrit of 41.6, WBC is 7.4 and platelets 103. IMPRESSION: This 56-year-old patient with multiple medical comorbidities, morbidly obese, obstructive sleep apnea, possible pulmonary hypertension, history of congestive heart failure, nonobstructive coronary artery disease, ejection fraction of 25% , prior he was 45 %, admitted with rapid ventricular response and also the patient complaining of left-sided chest pain which he attributes after a fall on the side. The patient was found to have elevated liver function tests, mainly transaminases, AST was 81, ALT was 366,alkaline phosphate 363, total bilirubin is 1.7 and ultrasound scan reviewed, no gallstone, GB wall thickening, CBD 7mm , the etiology for his abnormal LFTs could be multifactorial and could be local ischemia. The common bile duct measures only 7 mm, but sludge was there. The patient did have even before significantly elevated LFTs which improved. The patient does have a defibrillator and is not a candidate for MRI. The patient needs to be followed up for GI evaluation after optimization of cardiac status. He carries a high risk in view of his multiple comorbidities. We will continue to closely follow up on his care and suggest further management based on the clinical course. Rose Candelario MD cc: [phone] TT: 08/16/2016 21:54:06 Confirmation # [id number] Dictation # [id number] sn MTDD
--- NOTE | 2016-08-17 08:14 | PN ---
DATE: 08/17/2016 SUBJECTIVE: The patient has no complaints of any chest pain, no shortness of breath, no headaches. PHYSICAL EXAMINATION: VITAL SIGNS: Temperature is 98.4, pulse of 130s, blood pressure 112/75, respirations 23. GENERAL: The patient comfortable, in no acute distress. HEENT: Anicteric sclerae. Moist mucosa. NECK: No JVD or adenopathy. CARDIAC: S1/S2. No murmurs. No rubs. Regular. RESPIRATORY: Clear to auscultation bilaterally. No wheezes, rales, or rhonchi. Good air entry. ABDOMEN: Bowel sounds are positive, soft, nontender, and nondistended. EXTREMITIES: No edema. Has 1+ pulses. LABS: White count of 13.1, hemoglobin 11.7. Creatinine is 1.0. ASSESSMENT: 1. Left upper peripherally inserted central catheter line. 2. Hypotension, improved. 3. Atrial fibrillation with rapid rate. 4. Diabetes, type 2. 5. Chronic obstructive pulmonary disease. 6. Pleural effusion. 7. Dyslipidemia. 8. Obesity with a body mass index of 42. 9. Congestive heart failure secondary to systolic dysfunction, acute. 10. Dyslipidemia. PLAN: The patient is currently comfortable. He is currently on amiodarone. The patient is on Ativa n. The patient's verapamil is on hold. The patient is on dobutamine. He is going to continue with Coumadin for his atrial fibrillation. The patient's INR is subtherapeutic at 1.7. The patient is on Lasix daily. He is receiving Lipitor for dyslipidemia. He is on Lovenox for anticoagulation. He i s on steroids. He is getting BiPAP. Axel Villagomez MD cc: [id number] TT: 08/17/2016 08:14:18 Confirmation # [id number] Dictation # [id number] mn
[2016-08-17] MEDS: Milrinone 20mg/100ml D5W 100 ML IV PRN ×2 (09:51→20:07)
[2016-08-17] MEDS: Cefepime 1gm in NS 100ml 1 GM/100 ML BAG IVPB SCH ×2 (10:27→22:06)
[2016-08-17] MEDS: Nystatin 100,000 Units/gm Topical Pow(15 gm) TOP SCH ×2 (10:28→22:11)
[2016-08-17] MEDS: Vancomycin 1gm in NS 250ml 1 GM/250 ML BAG IVPB SCH (11:09)
--- NOTE | 2016-08-17 11:46 | PN ---
DATE: 08/17/2016 Seen and examined at the bedside earlier today in ICU. The patient is out of bed in the chair. Juan Luis es any nausea, vomiting, or abdominal pain. No complaints of shortness of breath or chest pain. No acute overnight events were reported. VITAL SIGNS: Temperature is 97.1, blood pressure was 111/68, heart rate is 129, respirations 20, 95% oxygen saturation. LABORATORIES: Today, WBC 13.1, his hemoglobin 11.1, hematocrit 35.6, platelets is 125. Sodium 138, K 3.8, BUN 28, creatinine is 1.0. His total bilirubin is 0.9, AST 49, AST 257, alk phos is 55. His liver enzymes are slowly improving. BNP was done this morning and it was 5990. PHYSICAL EXAMINATION: HEENT: Sclera is anicteric. NECK: Supple. CARDIAC: S1, S2. LUNG SOUNDS: With decreased breath sounds, but positive air entry. ABDOMEN: With bowel sounds, soft. No tenderness on palpation. No rebound or guarding. EXTREMITIES: Positive bilateral edema. NEUROLOGIC: Awake, alert, and oriented. ASSESSMENT: This is a 56-year-old male who is morbidly obese, has history of congestive heart failur e, coronary artery disease with cardiomyopathy. Ejection fraction is at 24%. Came in with rapid priscilla tricular response and complaints of left-sided chest pain. The patient apparently status post fall. The patient with right pleural effusion, compression atelectasis versus airspace disease. The patie nt does have history of chronic obstructive pulmonary disease and found to have elevated liver enzyme s. This is actually improving. He did have an ultrasound, which showed gallbladder sludge, common b ile duct is at 5 mm. This elevation could be multifactorial. PLAN: We will continue to monitor liver enzymes. It is improving right now. Avoid any hepatotoxic drugs. His Lipitor is currently on hold. He is on Lovenox. He is on amiodarone drip. He is on IV antibiotics. The patient is on Solu-Medrol, on Primacor drip. Continue PPI. He is also on vancomyc in and on Coumadin. He has history of atrial fibrillation. The patient was seen and case discussed with Dr. Candelario. Sheryl FERRARI cc: [id number] TT: 08/17/2016 11:45:43 Confirmation # [id number] Dictation # [id number] en
[2016-08-17 11:57] LABS: BAND 5 % (0-2); NEUTROPHIL 86 % (50.0-70.0)
[2016-08-17 11:58] LABS: ANISOCYTOSIS 1+; ATYPICAL LYMPHOCYTE 1 % (0.0-0.0); HYPOCHROMIA 1+; OVALOCYTES SLIGHT; PLATELET ESTIMATE SL.DEC (NORMAL); TEAR DROP CELLS SLIGHT
[2016-08-17 11:59] LABS: POIKILOCYTOSIS SLIGHT
[2016-08-17 12:25] LABS: URINE BILIRUBIN NEGATIVE (NEGATIVE); URINE BLOOD LARGE (NEGATIVE); URINE GLUCOSE (UA) 100 mg/dL (NEGATIVE); URINE KETONE NEGATIVE (NEGATIVE); URINE LEUKOCYTE ESTERASE MODERATE Leu/uL (NEGATIVE); URINE PROTEIN TRACE mg/dL (<30 mg/dL); URINE UROBILINOGEN 0.2 E.U./dL (<1 E.U./dL)
[2016-08-17 12:30] LABS: URINE APPEARANCE SL CLOUDY (CLEAR); URINE COLOR YELLOW (YELLOW)
--- NOTE | 2016-08-17 12:46 | PN ---
DATE: 08/17/2016 REASON FOR CONSULTATION AND FOLLOWUP: Status post fall, trauma to the chest, AFib with rapid ventric ular rate. BRIEF CLINICAL HISTORY: This is a 56-year-old male with past medical history significant for decompe nsated congestive heart failure, multiple admissions, noncompliance with the medication, history of c hronic atrial fibrillation, failed CORA cardioversion, multiple times arrangements have been made for radiofrequency ablation at [facility] but patient did not go, who fell down/tripped at home an d hit the left side of the chest with chest of drawers and got trauma to the left rib but no bony inj ury. Repeat echo showed severely decreased LV function. Previous echo on 06/10/2015 showed ejection fraction 45%. Now the EF is decreased to 25. PHYSICAL EXAMINATION: VITAL SIGNS: Temperature afebrile, heart rate 129, blood pressure 103/56. HEENT: PERRLA. Extraocular muscles intact. NECK: Supple. No carotid bruits. No thyromegaly. CHEST: Clear to auscultation. HEART: S1, S2 regular. ABDOMEN: Soft. EXTREMITIES: Clubbing and cyanosis negative. BLOOD WORKUP: As follows: WBC 13.____, hemoglobin 11.____, hematocrit 35.6, platelet count 125. Ch emistry shows sodium 130, potassium 3.____, chloride 101, carbon dioxide 30, anion gap of 11, BUN ___ _, creatinine 1.0. BNP 5990. IMPRESSION: Atrial fibrillation with rapid ventricular rate, noncompliance with the medication, hypo magnesemia; chronic atrial fibrillation, failed transesophageal echocardiogram cardioversion, status post cardiac catheterization 3 times, normal coronaries, decreased left ventricular function, mitral regurgitation, tricuspid regurgitation. Most recent echocardiogram of 08/15/2016 (that is, day befor e yesterday) shows decreased left ventricular function, right ventricle is moderately dilated, right ventricular function is severely reduced, calculated ejection fraction 24%, calculated right ventricu lar systolic pressure 31; decompensated congestive heart failure; cardiomyopathy, nonischemic, failed transesophageal echocardiogram cardioversion in the past. RECOMMENDATION: Continue Lasix. Continue verapamil to control the heart rate. Discussed with Dr. Cheo manley the low dose of Dobutrex, amiodarone. The patient is on Cardizem. The patient also is on Co umadin. Dr. Hernandez asked me if the patient can be assessed by EP study so I told him yes because [facility] outside has been arranged 3 or 4 times and the patient did not go, so probably call [facility]/Dr. Ben Hampton for EP evaluation and possible radiofrequency ablation. Dr. Angel Hampton consult h as been placed by Dr. Hernandez. Will follow with you. Supplement magnesium. INR getting therapeuti c, close, 1.74; still subtherapeutic. Will follow with you. Tia Rajan MD cc: [id number] TT: 08/17/2016 12:45:46 Confirmation # [id number] Dictation # [id number] mn
[2016-08-17 12:52] LABS: URINE AMORPHOUS SEDIMENT FEW; URINE BACTERIA MANY (NEG); URINE EPITHELIAL CELLS 0 - 2 /hpf (0-5); URINE RBC TNTC /hpf (0-2); URINE WBC 25 - 30 /hpf (0-6)
[2016-08-17] MEDS ORDERED: Magnesium Sulfate 2 GM in Sodium Chloride 0.9% 100 ML IVPB ONE (13:00)
--- NOTE | 2016-08-17 15:23 | PN ---
DATE: 08/17/2016 ADDENDUM REASON FOR DICTATION: Addendum for initial progress note dictated this morning. REASON FOR ADDENDUM: I spoke to Dr. 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 Discussed patient's condition. Emphasis made on compliance. Suggested to reload with amiodaron e and after loading, 2-3 grams of loading, will try to give 1 more attempt of CORA cardioversion. He is aware that patient was last time failed CORA cardioversion with noncompliance issue, so he will giv e 1 more try of CORA cardioversion and then if fails, then will consider EP ablation, radiofrequency a blation. So we will start loading with amiodarone and will schedule for CORA cardioversion on Sunday. Further recommendation depending upon hospital course. We will follow with you. Thank you, Dr. Angel Hampton. We will follow with you. Tia Rajan MD cc: [id number] TT: 08/17/2016 15:22:38 Confirmation # [id number] Dictation # [id number] en
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
--- NOTE | 2016-08-17 22:51 | CP.PCM.PN ---
Subjective - Date & Time of Evaluation Date of Evaluation: 08/17/16 Time of Evaluation: 22:50 - Subjective Subjective: # 20 angiocath was inserted in right wrist. Dx:Poor venous access. Objective - Vital Signs/Intake and Output Vital Signs (last 24 hours): Temp Pulse Resp BP Pulse Ox 97.1 F L 121 H 33 H 112/87 93 L 08/17/16 08:00 08/17/16 20:52 08/17/16 20:52 08/17/16 22:09 08/17/16 18:01 Intake and Output: 08/17/16 08/18/16 18:59 06:59 Intake Total 450 100 Output Total 1390 Balance -940 100 - Medications Medications: Current Medications Amiodarone HCl (Cordarone) 200 mg PO DAILY [facility] Amiodarone HCl (Cordarone) 400 mg PO TID [facility] Stop: 08/21/16 23:59 Last Admin: 08/17/16 19:00 Dose: Not Given Atorvastatin Calcium (Lipitor) 40 mg PO DIN [facility] Last Admin: 08/14/16 22:59 Dose: 40 mg Carvedilol (Coreg) 3.125 mg PO BID [facility] Last Admin: 08/17/16 19:15 Dose: 3.125 mg Digoxin (Lanoxin) 0.125 mg PO 1400 [facility] Last Admin: 08/15/16 16:52 Dose: Not Given Enoxaparin Sodium (Lovenox) 100 mg SC Q12H [facility] PRN Reason: Protocol Stop: 08/17/16 23:59 Last Admin: 08/17/16 18:57 Dose: Not Given Furosemide (Lasix) 40 mg PO BID [facility] Last Admin: 08/15/16 09:15 Dose: 40 mg Furosemide (Lasix) 40 mg IVP Q12 [facility] Last Admin: 08/17/16 22:09 Dose: 40 mg Glimepiride (Amaryl) 4 mg PO DAILY [facility] Last Admin: 08/15/16 09:18 Dose: 4 mg Guaifenesin/Dextromethorphan (Robitussin Dm) 5 ml PO Q4H PRN PRN Reason: Cough Last Admin: 08/17/16 03:14 Dose: 5 ml Hydralazine HCl (Apresoline) 10 mg PO QID PRN PRN Reason: for sbp >170 and Diastolic>100 Cefepime HCl (Maxipime 1gm) 1 gm in 100 mls @ 100 mls/hr IVPB Q12 [facility] PRN Reason: Protocol Last Admin: 08/17/16 22:06 Dose: 100 mls/hr Vancomycin HCl (Vancomycin 1gm) 1 gm in 250 mls @ 167 mls/hr IVPB DAILY [facility] PRN Reason: Protocol Last Admin: 08/17/16 11:09 Dose: 167 mls/hr Milrinone Lactate/Dextrose (Primacor 20mg/100ml D5w) 100 mls @ 7.403 mls/hr IV .[id number] PRN; Protocol; 0.2 MCG/KG/MIN PRN Reason: TITRATE PER MD ORDER Last Admin: 08/17/16 20:07 Dose: 0.2 mcg/kg/min, 7.403 mls/hr Insulin Detemir (Levemir) 40 unit SC ACBD [facility] Last Admin: 08/17/16 19:14 Dose: 40 unit Insulin Human Regular (Humulin R Med) 0 units SC ACHS [facility] PRN Reason: Protocol Last Admin: 08/17/16 22:10 Dose: Not Given Ipratropium [place] (Atrovent) 0.5 mg IH [id number] PRN PRN Reason: Wheezing Levalbuterol HCl (Xopenex) 1.25 mg IH [id number] PRN PRN Reason: Wheezing Lisinopril (Zestril) 2.5 mg PO DAILY [facility] Lorazepam (Ativan) 2 mg PO AMHS [facility] PRN Reason: Protocol Last Admin: 08/17/16 22:07 Dose: 2 mg Lorazepam (Ativan) 1 mg PO BID PRN; Protocol PRN Reason: Anxiety Methylprednisolone (Solu-Medrol) 20 mg IVP Q12 [facility] Last Admin: 08/17/16 22:08 Dose: 20 mg Metoprolol Tartrate (Lopressor) 50 mg PO BID [facility] Last Admin: 08/15/16 09:16 Dose: 50 mg Metoprolol Tartrate (Lopressor) 5 mg IVP Q6H [facility] Last Admin: 08/17/16 13:08 Dose: 5 mg Midazolam HCl (Versed Inj) 0.5 mg IVP ONCE PRN PRN Reason: ANXIE Montelukast Sodium (Singulair) 10 mg PO HS [facility] Last Admin: 08/17/16 22:06 Dose: 10 mg Mupirocin (Bactroban Ointment) 1 gm TOP BID [facility] Last Admin: 08/17/16 19:16 Dose: 1 dose Nystatin (Nystop Topical Powder) 0 gm TOP Q12H [facility] Last Admin: 08/17/16 22:11 Dose: Not Given Pantoprazole Sodium (Protonix Ec Tab) 40 mg PO 0630 [facility] Last Admin: 08/17/16 07:49 Dose: 40 mg Trazodone HCl (Desyrel) 200 mg PO HS [facility] Last Admin: 08/17/16 22:07 Dose: 200 mg Verapamil HCl (Calan Tab) 80 mg PO TID [facility] Last Admin: 08/16/16 17:31 Dose: Not Given Warfarin Sodium (Coumadin) 7.5 mg PO 1800 [facility] PRN Reason: Protocol Last Admin: 08/17/16 19:15 Dose: Not Given - Labs Labs: 08/17/16 06:15 08/17/16 06:15 PT 18.8 Seconds (9.9-11.8) H 08/16/16 10:00 INR 1.74 (0.93-1.08) H 08/16/16 10:00 APTT 25.2 Seconds (23.7-30.8) 08/14/16 19:10
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
[2016-08-18 06:55] LABS: ADD MANUAL DIFF? NO
[2016-08-18 07:15] LABS: INR 2.06 (0.93-1.08)
[2016-08-18 07:20] LABS: BASO # 0.01 K/mm3 (0.0-2.0); BASO % 0.1 % (0.0-3.0); GRAN # 12.86 (1.4-6.5); GRAN % 90.2 % (50.0-68.0); HEMATOCRIT 40.4 % (42.0-52.0); LYMPH # 0.8 (1.2-3.4); LYMPH % 5.6 % (22.0-35.0); MEAN CELL VOLUME 86.5 fL (80.0-105.0); MEAN CORPUSCULAR HEMOGLOBIN 28.1 pg (25.0-35.0); MEAN CORPUSCULAR HGB CONC 32.4 g/dl (31.0-37.0); MEAN PLATELET VOLUME 10.7 fl (7.0-11.0); MONO # 0.6 (0.1-0.6); MONO % 4.1 % (1.0-6.0); PLATELET COUNT 152 10^3/uL (120.0-450.0); RED CELL DISTRIBUTION WIDTH 17.4 % (11.5-14.5); WHITE BLOOD COUNT 14.3 10^3/ul (4.5-11.0)
[2016-08-18 07:40] LABS: ALB/GLOB RATIO 1.3 (1.1-1.8); ALKALINE PHOSPHATASE 58 U/L (38-133); ALT/SGPT 213 U/L (7-56); AST/SGOT 58 U/L (15-59); BILIRUBIN,TOTAL 0.8 mg/dL (0.2-1.3); BLOOD UREA NITROGEN 33 mg/dL (7-21); CALCIUM 8.6 mg/dL (8.4-10.5); CARBON DIOXIDE 31 mmol/L (21-33); CHLORIDE 98 mmol/L (98-107); GFR AFRICAN-AMERICAN > 60; GLUCOSE,RANDOM 71 mg/dL (70-110); MAGNESIUM 1.9 mg/dL (1.7-2.2); PHOSPHOROUS 3.6 mg/dL (2.5-4.5); SODIUM 139 mmol/L (132-148); TOTAL PROTEIN 6.2 g/dL (5.8-8.3)
[2016-08-18] MEDS: Insulin Reg-MEDIUM-Coverage SC SCH ×4 (08:18→21:44)
[2016-08-18] MEDS: Insulin Detemir 100 units/ml Vial (Levemir) SC SCH ×2 (08:19→18:08)
--- NOTE | 2016-08-18 08:23 | PN ---
DATE: 08/17/2016 REFERRING PHYSICIAN: Dr. Axel Villagomez. SUBJECTIVE: He is out of bed to chair. Apparently wants to sign against medical advice, pulled out his IV. He was on Primacor and also on amiodarone. Presently tachycardic; heart rate was 120-130, s ignificant leg swelling. Short of breath. No nausea, no vomiting, no diarrhea. OBJECTIVE: GENERAL: In mild distress with tachycardia. VITAL SIGNS: Afebrile, heart rate is 130, respiratory rate is 24, blood pressure 124/61, pulse ox wa s 96% on nasal cannula. HEENT: Moist mucous membranes. Crowded airway. Mallampati score is 4. NECK: Supple. No JVD. LUNGS: Has decreased breath sounds at the bases. HEART: S1, S2 irregular. ABDOMEN: Soft, nontender. No organomegaly. EXTREMITIES: There is no significant edema. NEUROLOGIC: Awake, alert, follows simple commands. MEDICATIONS: He is on glipizide 5 mg daily, hydralazine 10 mg four times a day, Ativan 2 mg a.m. and at bedtime, Ativan also p.r.n., Atrovent 0.5 mg inhaled q. 6 hours, Calan 80 mg q. 8 hours, amiodaro ne 400 mg 3 times a day and then 200 daily after loading dose, Coreg 3.125 mg twice a day, Coumadin 7 .5 mg, which is on hold, trazodone 200 mg at bedtime, insulin coverage, digoxin 0.125 mg daily, Lasix 40 mg twice a day, Levemir 40 units subQ before breakfast and dinner, Lipitor 40 mg daily, metoprolo l tartrate 5 mg IV q. 6 hours, Lovenox 100 mg q. 12 hours, cefepime 1 g IV q. 12 hours, IV Primacor, which got pulled out, Protonix mg daily, Robitussin 5 mL q. 4 hours p.r.n., Singulair 10 mg suresh ly, Solu-Medrol 40 mg q. 8 hours, vancomycin 1 g IV daily, Versed p.r.n., Xopenex q. 6 hours p.r.n., Zestril 2.5 mg daily. LABORATORY DATA: Shows hemoglobin 11.7, hematocrit 35.6, WBC 15.1, platelet is 125. Blood gases jazzmine ws pH 7.42, pCO2 46, O2 is 63. Sodium 138, potassium 3.8, chloride , bicarbonate 30, BUN 28, cr eatinine 1.0, glucose 104, calcium 8.2, phosphorus 2.4, magnesium 1.6, AST 49, ALT , alkaline ph osphatase 55. His proBNP is 5980, albumin 3.3. IMPRESSION AND PLAN: Admitted with cardiogenic shock, atrial fibrillation with uncontrolled heart ra te, diabetes, hypertension, chronic obstructive lung disease, obstructive sleep apnea syndrome, pleur al effusion, morbid obesity. The patient wanted to leave against medical advice, was not in any shap e to leave. Psychiatry consult was called. spoke to the patient in detail following. He was feeling to stay. I had a long discussion with the patient about his atrial fibrillation and treatmen t. He was supposed to see Dr. Bonilla at [facility] yesterday for ablation therapy, so, I mad e a phone call to Dr. Bonilla and spoke to him in detail. He is willing to accept the patient tonight or tomorrow morning, has a bed available. I think this is probably best for this patient because he keeps coming back with uncontrolled atrial fibrillation with rapid ventricular response, going into cardiogenic shock. So, the patient agreed to be transferred. Spoke to well cleaner, , spoke to nursing staff. So far, decrease Solu-Medrol to 20 q. 12 hours, bronchodilators. Encourage BiPAP use. Continue rest of the cardiac medication, hold Coumadin. As soon as bed available at [facility], will transfer him there. Thank you and will follow with you. Critical care time more than 35 minutes. Tia Godinez MD cc: [id number] TT: 08/17/2016 22:59:29 Confirmation # [id number] Dictation # [id number] mn
--- NOTE | 2016-08-18 08:24 | PN ---
DATE: 08/18/2016 SUBJECTIVE: The patient has no complaint of any chest pain, no shortness of breath. There is ____ n oted. PHYSICAL EXAMINATION: VITAL SIGNS: Temperature is 98.4, pulse of 106, blood pressure is 126/82, respirations 19. GENERAL: The patient comfortable, in no acute distress. HEENT: Anicteric sclerae. Moist mucosa. NECK: No JVD or adenopathy. CARDIAC: S1/S2. No murmurs. No rubs. Regular. RESPIRATORY: Clear to auscultation bilaterally. No wheezes, rales, or rhonchi. Good air entry. ABDOMEN: Bowel sounds are positive, soft, nontender, and nondistended. EXTREMITIES: No edema. Has 1+ pulses. LABS: White count 13.1, hemoglobin 11.7, ASSESSMENT: 1. Delirium. 2. Hypotension, resolved. 3. Atrial fibrillation with rapid rate. 4. Diabetes, type 2. 5. Chronic obstructive pulmonary disease. 6. Pleural effusion. 7. Dyslipidemia. 8. Obesity with a body mass index of 42. 9. Congestive heart failure secondary to ____ dysfunction, acute. PLAN: The patient is currently comfortable. He continues to have atrial fibrillation. Being seen by Dr. Benitez for his delirium. He is also being followed by Dr. Hampton follow up EPS. The patient is currently on lorazepam; he is going to continue. He is on amiodarone. The patient ____. He is on Lasix IV twice a day ____. He is on Levemir for his diabetes. The patient is on Protonix. He is on ____ for his heart failure. His blood cultures have been negative. Urine cultures have been neg ative. He needs a PICC line for ____ for IV access because he has poor IV access (235). He has an e cho that is going to be done, transesophageal. Axel Villagomez MD cc: [id number] TT: 08/18/2016 07:58:01 Confirmation # [id number] Dictation # [id number] mn
[2016-08-18] MEDS: Nystatin 100,000 Units/gm Topical Pow(15 gm) TOP SCH ×2 (10:00→21:32)
--- NOTE | 2016-08-18 10:06 | PN ---
DATE: 08/18/2016 REASON FOR CONSULTATION AND FOLLOWUP: Status post fall, status post trauma, AFib with rapid ventricu lar rate, cardiomyopathy. BRIEF CLINICAL HISTORY: This is a 56-year-old male with a past medical history significant for decom pensated congestive heart failure, multiple admissions, noncompliance with medication, history of chr onic atrial fibrillation, failed CORA cardioversion, multiple arrangements made for radiofrequency abl ation at [facility] but patient did not go, who fell down/tripped at home and hit his chest to the chest of drawers and got trauma to the left rib, no bony injury. Repeat echo shows severely dec reased LV function. Previous echo 06/10/2015, ejection fraction 45%. Now EF is decreased to 25%. T he patient was started on amiodarone with plan to attempt to discontinue cardioversion after consulta tion with Dr. Hampton, but patient was signing out. Ultimately, lengthy discussion, the patient agr eed to stay. Scheduled for CORA cardioversion on Sunday after loading with amiodarone. The patient w as on metoprolol, put back on Coreg, but yesterday resumed back with a fast heart rate. Dr. Hampton resumed back the metoprolol. The patient denies any chest pain, shortness of breath, any palpitatio n. PHYSICAL EXAMINATION: VITAL SIGNS: Temperature afebrile, heart rate 106, blood pressure 126/82. HEENT: PERRLA. Extraocular muscles intact. NECK: Supple. No carotid bruits. No thyromegaly. CHEST: Clear to auscultation. HEART: S1, S2 regular. ABDOMEN: Soft. EXTREMITIES: Clubbing and cyanosis negative. BLOOD WORKUP: As follows: WBC 14.____, hemoglobin 13.____, hematocrit 40.4, platelet count 152. Ch emistry shows sodium 130, potassium 4, chloride 98, carbon dioxide 30, anion gap of 14, BUN ____, cre atinine 1.1. INR 2.06. IMPRESSION: Cardiomyopathy, probably tachycardia related, nonischemic, status post cardiac catheteri zation x 3, no significant coronary artery disease, failed cardioversion in the past, mitral regurgit ation, tricuspid regurgitation. Most recent echocardiogram , the ____ yesterday, shows d ecreased ejection fraction 24% calculated ejection fraction, right ventricle systolic pressure at 31, cardiomyopathy, nonischemic, noncompliance, always comes with subtherapeutic INR. RECOMMENDATIONS: Arrangement had been made for radiofrequency ablation; the patient did not go. Yes terday, for EPS service, Dr. Angel Hampton was contacted, and after that the patient started loadin g with amiodarone with plan to do CORA cardioversion on Sunday. The patient was signing out. Jayat jaspal, after discussion, patient decided to stay. Now plan is to continue loading amiodarone 400 mg p. o. for 5 days followed by 200 mg daily. Continue metoprolol, continue verapamil. We will discontinu e Coreg. We will discontinue digoxin because of interaction with amiodarone, and will also decrease the dose of Coumadin for a possible interaction with high dose of amnio and will overshoot PT/INR; wi ll cut down to 5 mg. Repeat INR tomorrow. Will follow with you. Possibly, patient may need radiofr equency ablation. Discussed with Dr. Angel Hampton. Will check INR in the morning, as INR may be expected to be higher after the high dose loading of amiodarone. Thank you, Dr. Villagomez, for providing the opportunity in taking care of the patient. Discussed henrique garner with the patient. The patient agreed and promised to stay here. In a day or 2, we will change Las ix to p.o. Tia Rajan MD cc:Axel Villagomez MD [id number] TT: 08/18/2016 09:28:04 Confirmation # [id number] Dictation # [id number] mn
[2016-08-18] MEDS: Cefepime 1gm in NS 100ml 1 GM/100 ML BAG IVPB SCH ×2 (10:42→21:31)
--- NOTE | 2016-08-18 10:47 | PN ---
DATE: 08/18/2016 REFERRING PHYSICIAN: Dr. Axel Villagomez SUBJECTIVE: He is out of bed to chair, upset because he has to be n.p.o., scheduled for cardioversio n today. Night was unremarkable, did not use CPAP/BiPAP. No headache, no rhinitis, no nausea, no vo miting, no diarrhea. Still has leg swelling. OBJECTIVE: GENERAL: No acute distress. VITAL SIGNS: Temp is 98, heart rate is 106, respiratory rate is 20, blood pressure 126/82, pulse ox 95% on room air. HEENT: Moist mucous membrane. Crowded airway. Mallampati score is 4. NECK: Supple. No JVD. LUNGS: Has decreased breath sounds at the bases. HEART: S1 and S2. ABDOMEN: Soft, nontender. No organomegaly. EXTREMITIES: Does have significant edema. NEUROLOGIC: Awake, alert, follows simple commands. MEDICATIONS: He is on Amaryl 4 mg daily, hydralazine 10 mg q.i.d. p.r.n., Ativan 2 mg a.m. and at be dtime, also Ativan 1 mg twice a day p.r.n., Atrovent 0.5 mg q. 6 hours p.r.n., verapamil is 80 mg 3 t imes a day, amiodarone is at 400 mg 3 times a day which a loading dose was not given but 200 daily is being given, also Coumadin which is 5 mg will be given tonight, trazodone is at 200 mg daily, insuli n coverage, digoxin 0.125 mg daily, Lasix 40 mg q. 12 hours, Levemir 40 units subQ before meals twice a day, Lipitor is at 40 mg daily, metoprolol tartrate is 50 mg twice a day, cefepime 1 g IV, Protoni x is 40 mg daily, Robitussin-DM 5 mL q. 4 hours p.r.n., Singulair 10 mg daily, Solu-Medrol 20 mg q. 1 2 hours, vancomycin 1 g IV daily, Xopenex is p.r.n. basis, Zestril 2.5 mg daily. LABORATORY DATA: Shows hemoglobin 13.1, hematocrit 40.4, WBC 14.3, platelet is 142. INR 2.06. Sodi um 139, potassium 4.0, chloride 98, bicarbonate 31, BUN 33, creatinine 1.1, glucose 87, calcium is 8. 6, magnesium 1.9, AST 58, ALT 213, alk phos is 58, albumin is 3.5. MICROBIOLOGY: Blood cultures been negative. IMPRESSION AND PLAN: Atrial fibrillation with rapid ventricular response, chronic obstructive lung d isease, obstructive sleep apnea syndrome, cardiomyopathy, recurrent heart failure, hypertension, diab etes, morbid obesity. The patient is supposed to go see . Apparently, could not make it, s o EP consult in-house was called last night. I spoke to Dr. Rajan this morning from cardiology. The patient is scheduled for transesophageal echo and attempt going to be to convert him. Cardioversion will be tried. If failed, may need ablation therapy. Pulmonary point of view, we need to urge him t o use BiPAP while sleeping. Keep head at 45 degrees. Bronchodilator. 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 He is on anticoagulation. Thank you and we will follow with you. Tia Godinez MD cc: [id number] TT: 08/18/2016 10:47:17 Confirmation # [id number] Dictation # [id number] en
[2016-08-18] MEDS: MethylPREDNISolone 40 mg Vial IVP SCH ×2 (12:01→21:33)
--- NOTE | 2016-08-18 12:32 | PN ---
DATE: 08/18/2016 Seen and examined at the bedside earlier today. The patient was eating breakfast. Denies any nausea, vomiting, abdominal pain, shortness of breath or chest pain. He had a bowel movement this morning and it was semi-loose, did not notice any blood. VITAL SIGNS: Temperature is 98.4, blood pressure 134/91, pulse rate 101, respirations 19, 95 on room air. LABORATORY DATA: WBC is 14.3, hemoglobin 13.1, hematocrit 40.4, platelets of 152. His PT is 22.3, INR is 2.06. Chem: Sodium 139, K is 4.0, BUN 33, creatinine is 1.1. His total bilirubin is 0.8, AST 58, ALT is 213. Alk phos is 58. PHYSICAL EXAMINATION: HEENT: Sclerae are anicteric. NECK: Supple. CARDIAC: S1, S2. LUNGS: With decreased breath sounds, but good air entry, no rales or wheeze. ABDOMEN: With bowel sounds. Soft, nontender. No rebound or guarding. EXTREMITIES: No edema. ASSESSMENT/PLAN: The patient is 56 years old with a history of congestive heart failure, coronary artery disease with cardiomyopathy with an ejection fraction of 24%, came with left-sided chest pain and rapid ventricular response. He also is status post hypotension, found to have elevated liver enzymes. The patient did go for ultrasound of the abdomen which did show gallbladder sludge. Common bile duct was 5 mm. His elevated liver enzymes could be multifactorial, hepatic congestion versus gallbladder sludge or could be medication induced. The patient is going for a radiofrequency ablation and they are going to plan to do a CORA cardioversion. The patient is on amiodarone. We will continue the diet as tolerated. The Lipitor is currently on hold. He is also receiving antibiotics. Continue to monitor LFTs. The patient is on steroids, Solu-Medrol, proton pump inhibitor, also on vancomycin. The patient is also receiving Coumadin. The patient was seen and case discussed with Dr. Candelario. Sheryl Dixones VONDA cc: [id number] TT: 08/18/2016 12:31:21 Confirmation # [id number] Dictation # [id number] jerry TABOR
[2016-08-18] MEDS: Vancomycin 1gm in NS 250ml 1 GM/250 ML BAG IVPB SCH (14:24)
--- NOTE | 2016-08-18 17:11 | PN ---
DATE: 08/18/2016 ADDENDUM Addendum to the initial progress note. Reason for addendum: plan has changed. After discussing with Dr. Hampton that the patient will need a CORA cardioversion and then he will sc hedule later for evaluation for EP ablation and radiofrequency ablation, but a call from [facility] the patient has already been scheduled for radiofrequency ablation on Sunday under Dr David Bonilla, so we will cancel CORA. I will hold Coumadin and make arrangement to transfer to Center and cancel the CORA. Discussed with the patient, will discuss with Dr. Villagomez and also Dr. Hampton has been informed. Thank you for the opportunity in taking care of the patient. Tia Rajan MD cc:Axel Villagomez MD [id number] TT: 08/18/2016 17:10:38 Confirmation # [id number] Dictation # [id number] carla
--- NOTE | 2016-08-18 18:58 | CARD ---
APPROVED REPORT EKG Measurement Heart [id number] <Conclusion> Atrial fibrillation with rapid ventricular response Low voltage QRS Septal infarct, age undetermined Abnormal ECG
--- NOTE | 2016-08-18 19:26 | CP.PCM.PN ---
Subjective - Date & Time of Evaluation Date of Evaluation: 08/18/16 Time of Evaluation: 19:00 - Subjective Subjective: Patient feels much better today,Complaining of less shortness of breath. Patient atrial fibrillation is better controlled. His heart rate is in the 90s. EKG showed AF 123 bpm [id number] Objective - Vital Signs/Intake and Output Vital Signs (last 24 hours): Temp Pulse Resp BP Pulse Ox 98.8 F 64 20 102/70 95 08/18/16 17:45 08/18/16 17:45 08/18/16 17:45 08/18/16 18:08 08/18/16 05:28 Intake and Output: 08/18/16 08/19/16 18:59 06:59 Intake Total 1560 Output Total 2 Balance 1558 - Medications Medications: Current Medications Amiodarone HCl (Cordarone) 200 mg PO DAILY [facility] Amiodarone HCl (Cordarone) 400 mg PO TID [facility] Stop: 08/21/16 23:59 Last Admin: 08/18/16 18:09 Dose: 400 mg Atorvastatin Calcium (Lipitor) 40 mg PO DIN [facility] Last Admin: 08/14/16 22:59 Dose: 40 mg Digoxin (Lanoxin) 0.125 mg PO 1400 [facility] Last Admin: 08/15/16 16:52 Dose: Not Given Furosemide (Lasix) 40 mg PO BID [facility] Last Admin: 08/15/16 09:15 Dose: 40 mg Furosemide (Lasix) 40 mg PO BID [facility] Last Admin: 08/18/16 18:08 Dose: 40 mg Glimepiride (Amaryl) 4 mg PO DAILY [facility] Last Admin: 08/15/16 09:18 Dose: 4 mg Guaifenesin/Dextromethorphan (Robitussin Dm) 5 ml PO Q4H PRN PRN Reason: Cough Last Admin: 08/17/16 03:14 Dose: 5 ml Hydralazine HCl (Apresoline) 10 mg PO QID PRN PRN Reason: for sbp >170 and Diastolic>100 Cefepime HCl (Maxipime 1gm) 1 gm in 100 mls @ 100 mls/hr IVPB Q12 [facility] PRN Reason: Protocol Last Admin: 08/18/16 10:42 Dose: 100 mls/hr Vancomycin HCl (Vancomycin 1gm) 1 gm in 250 mls @ 167 mls/hr IVPB DAILY [facility] PRN Reason: Protocol Last Admin: 08/18/16 14:24 Dose: 167 mls/hr Insulin Detemir (Levemir) 40 unit SC ACBD [facility] Last Admin: 08/18/16 18:08 Dose: 40 unit Insulin Human Regular (Humulin R Med) 0 units SC ACHS [facility] PRN Reason: Protocol Last Admin: 08/18/16 17:58 Dose: Not Given Ipratropium [place] (Atrovent) 0.5 mg IH [id number] PRN PRN Reason: Wheezing Levalbuterol HCl (Xopenex) 1.25 mg IH [id number] PRN PRN Reason: Wheezing Lisinopril (Zestril) 2.5 mg PO DAILY [facility] Last Admin: 08/18/16 14:32 Dose: 2.5 mg Lorazepam (Ativan) 2 mg PO AMHS [facility] PRN Reason: Protocol Last Admin: 08/18/16 10:44 Dose: 2 mg Lorazepam (Ativan) 1 mg PO BID PRN; Protocol PRN Reason: Anxiety Methylprednisolone (Solu-Medrol) 20 mg IVP Q12 [facility] Last Admin: 08/18/16 12:01 Dose: 20 mg Metoprolol Tartrate (Lopressor) 50 mg PO BID [facility] Last Admin: 08/15/16 09:16 Dose: 50 mg Metoprolol Tartrate (Lopressor) 25 mg PO Q8 [facility] Last Admin: 08/18/16 14:43 Dose: 25 mg Midazolam HCl (Versed Inj) 0.5 mg IVP ONCE PRN PRN Reason: ANXIE Montelukast Sodium (Singulair) 10 mg PO HS [facility] Last Admin: 08/17/16 22:06 Dose: 10 mg Mupirocin (Bactroban Ointment) 1 gm TOP BID [facility] Last Admin: 08/18/16 17:56 Dose: 1 dose Nystatin (Nystop Topical Powder) 0 gm TOP Q12H [facility] Last Admin: 08/18/16 10:00 Dose: Not Given Pantoprazole Sodium (Protonix Ec Tab) 40 mg PO 0630 [facility] Last Admin: 08/17/16 07:49 Dose: 40 mg Trazodone HCl (Desyrel) 200 mg PO HS [facility] Last Admin: 08/17/16 22:07 Dose: 200 mg Verapamil HCl (Calan Tab) 80 mg PO TID [facility] Last Admin: 08/16/16 17:31 Dose: Not Given - Labs Labs: 08/18/16 06:30 08/18/16 06:30 PT 22.3 Seconds (9.9-11.8) H 08/18/16 06:30 INR 2.06 (0.93-1.08) H 08/18/16 06:30 APTT 25.2 Seconds (23.7-30.8) 08/14/16 19:10 - Constitutional Appears: Well, Non-toxic - Head Exam Head Exam: NORMAL INSPECTION - Respiratory Exam Respiratory Exam: Clear to Ausculation Bilateral - Cardiovascular Exam Cardiovascular Exam: Irregular Rhythm - Extremities Exam Extremities Exam: Pedal Edema Assessment and Plan - Assessment and Plan (Free Text) Assessment: AF well rate controlled on amio and metoprolol. Plan: Patient atrial fibrillation is better controlled at this time. I have discussed with PCP in patients being transferred to [facility] over the weekend. At this time I recommend continuing amiodarone and metoprolol for rate control. I also recommended anticoagulation.If patient has not been transferred on Sunday I would recommend CORA/DCCV and lifeVEst.
[2016-08-18] MEDS: Ipratropium 0.02% Inhal Soln (0.5 mg/2.5 ml) UD IH PRN (19:56)
[2016-08-18] MEDS: Levalbuterol 1.25 MG/3 ML Inhal Soln UD IH PRN (19:56)
[2016-08-19] MEDS: Pantoprazole 40 mg EC Tab PO SCH (06:00)
[2016-08-19 07:43] LABS: ADD MANUAL DIFF? NO
[2016-08-19 07:55] LABS: BASO # 0.01 K/mm3 (0.0-2.0); BASO % 0.1 % (0.0-3.0); GRAN # 11.76 (1.4-6.5); GRAN % 86.6 % (50.0-68.0); HEMATOCRIT 39.7 % (42.0-52.0); LYMPH # 1.2 (1.2-3.4); LYMPH % 8.7 % (22.0-35.0); MEAN CELL VOLUME 85.7 fL (80.0-105.0); MEAN CORPUSCULAR HEMOGLOBIN 27.4 pg (25.0-35.0); MEAN PLATELET VOLUME 11.1 fl (7.0-11.0); MONO # 0.6 (0.1-0.6); MONO % 4.6 % (1.0-6.0); PLATELET COUNT 166 10^3/uL (120.0-450.0); RED CELL DISTRIBUTION WIDTH 17.2 % (11.5-14.5); WHITE BLOOD COUNT 13.6 10^3/ul (4.5-11.0)
[2016-08-19 07:58] LABS: INR 1.73 (0.93-1.08)
[2016-08-19 08:08] LABS: ALB/GLOB RATIO 1.3 (1.1-1.8); ALKALINE PHOSPHATASE 65 U/L (38-133); ALT/SGPT 182 U/L (7-56); AST/SGOT 56 U/L (15-59); BILIRUBIN,TOTAL 0.9 mg/dL (0.2-1.3); BLOOD UREA NITROGEN 44 mg/dL (7-21); CALCIUM 8.5 mg/dL (8.4-10.5); CARBON DIOXIDE 28 mmol/L (21-33); CHLORIDE 99 mmol/L (98-107); GFR AFRICAN-AMERICAN > 60; GLUCOSE,RANDOM 187 mg/dL (70-110); MAGNESIUM 1.8 mg/dL (1.7-2.2); PHOSPHOROUS 3.4 mg/dL (2.5-4.5); POTASSIUM 4.4 mmol/L (3.6-5.0); SODIUM 137 mmol/L (132-148); TOTAL PROTEIN 5.9 g/dL (5.8-8.3)
[2016-08-19] MEDS: Insulin Reg-MEDIUM-Coverage SC SCH ×4 (08:09→21:58)
--- NOTE | 2016-08-19 08:39 | PN ---
DATE: 08/18/2016 ADDENDUM This is an addendum to the progress report dictated by Sheryl Sawant APN. The patient was seen and evaluated earlier today. Denies any abdominal complaints. Tolerating the d iet. On examination abdomen is soft. There is no mass palpable. No tenderness. LABORATORY DATA: LFTs showing downward trend, ALT was 213. RECOMMENDATIONS: The present plan is to follow up the LFTs. Continue Actigall and continue the pres ent management. Thank you very much for allowing us to participate in the care of the patient. Rose Candelario MD cc: [id number] TT: 08/19/2016 08:14:08 Confirmation # [id number] Dictation # [id number] 08/19/2016 07:37:43
[2016-08-19] MEDS: Insulin Detemir 100 units/ml Vial (Levemir) SC SCH ×2 (09:08→18:30)
[2016-08-19] MEDS: Nystatin 100,000 Units/gm Topical Pow(15 gm) TOP SCH ×2 (10:13→23:36)
[2016-08-19] MEDS: Cefepime 1gm in NS 100ml 1 GM/100 ML BAG IVPB SCH ×2 (10:13→21:29)
[2016-08-19] MEDS: MethylPREDNISolone 40 mg Vial IVP SCH ×2 (10:14→21:27)
[2016-08-19] MEDS: Vancomycin 1gm in NS 250ml 1 GM/250 ML BAG IVPB SCH (11:26)
--- NOTE | 2016-08-19 11:39 | PN ---
DATE: 08/19/[address] Villagomez. The patient is a 56-year-old, known to me from previous admission, came to Emergency Room on 7 because of the chest pain. The patient is very noncompliant with his medication and food, so was a dmitted on telemetry for further management and treatment. PHYSICAL EXAMINATION: GENERAL: He is sitting in chair, seems to be comfortable, cooperative, answers inappropriately. VITAL SIGNS: He is afebrile, pulse 95, respirations 20, blood pressure 90/66. LUNGS: Bilateral soft crackle at bases. HEART: S1, S2 audible. ABDOMEN: Soft, very weak, nontender, no rebound, no guarding. NEUROLOGIC: The patient is awake and alert, able to communicate. EXTREMITIES: Bilateral legs +2 edema. LABORATORY DATA: WBC 13.6, hemoglobin 12.7, hematocrit 39.7, platelet of 166. PT is 18.7, INR 1.73. Chemistry: Sodium 137, potassium 4.4, chloride 99, CO2 28, BUN 44, creatinine 1.1, blood sugar 139 . Blood cultures are negative. ASSESSMENT: 1. Morbid obesity. 2. Congestive heart failure. 3. Chronic atrial fibrillation. 4. Status post cardiac catheterization with nonocclusive coronaries, status post failed cardioversio n in the past. 5. Obstructive sleep apnea. 6. Cardiomyopathy. 7. Mitral regurgitation. 8. Tricuspid regurgitation. PLAN: Dr. Rajan's input noted and appreciated. Plan was made for radiofrequency ablation, but patien t refused to go. He is being prepped for Sunday now. In the meantime, we will continue him on angio lytics since he does have a history of bipolar disorder and non-insulin dependent diabetes. He is on amiodarone 400 mg 3 times a day. He is on Coumadin. He is subtherapeutic. I will give him 4 mg to day. Follow up PT/INR in a.m. Follow up his electrolytes in a.m. Currently, he is on nebulizer ronald atment and that will be maintained. Continue him on digoxin. He is on Lasix 40 mg twice a day. Edwar l monitor his electrolytes. Ridge Velazquez MD cc: [id number] TT: 08/19/2016 11:38:57 Confirmation # [id number] Dictation # [id number] rn
--- NOTE | 2016-08-19 18:45 | PN ---
DATE: 08/19/2016 REFERRING PHYSICIAN: Dr. Axel Villagomez. SUBJECTIVE: The patient is out of bed to chair, night was unremarkable, still has shortness of breat h. No nausea, no vomiting, no diarrhea. Still has leg swelling. Not very compliant with the BiPAP. OBJECTIVE: GENERAL: No acute distress. VITAL SIGNS: Temperature is 98, heart rate is 100, respiratory rate is 20, blood pressure 104/77, pu lse ox 93% on room air. HEENT: Moist mucous membranes. Crowded airway. Mallampati score is 4. NECK: Supple. No JVD. LUNGS: Decreased breath sounds at the bases. HEART: Irregularly irregular. ABDOMEN: Soft, nontender. No organomegaly. EXTREMITIES: Does have edema up to the knees. NEUROLOGIC: Awake, alert, follows simple commands. MEDICATIONS: The patient is on hydralazine 10 mg p.r.n., Ativan 2 mg a.m. and at bedtime, also Ativa n 1 mg twice a day p.r.n., Atrovent 0.5 mg inhaled q. 6 hours, Calan 80 mg 3 times a day, amiodarone 400 mg 3 times a day, Coumadin 4 mg daily, trazodone 200 mg at bedtime, insulin coverage, digoxin 0.1 25 mg daily, Lasix 40 mg twice a day, Levemir is 40 units subcutaneously ACB, Lipitor 40 mg daily, me toprolol tartrate 50 mg twice a day, cefepime 1 g IV q. 12 hours, Protonix 40 mg daily, Robitussin 5 mL q. 4 hours p.r.n., Singulair 10 mg daily, Solu-Medrol 20 mg q. 12 hours, vancomycin 1 g IV, Xopene x inhaler q. 6 hours, Zestril 2.5 mg daily. LABORATORY DATA: Shows hemoglobin 12.7, hematocrit 39.7, WBC 13.6, platelet is 166. INR 1.73. Sodi um 137, potassium 4.4, chloride 99, bicarbonate 28, BUN 44, creatinine 1.1, glucose 187, calcium 8.5, phosphorus 3.4, magnesium 1.8, AST 56, ALT 182, alkaline phosphatase is 65. Albumin is 3.3. IMPRESSION AND PLAN: Atrial fibrillation with rapid ventricular response, chronic obstructive lung d isease, obstructive sleep apnea syndrome, cardiomyopathy, recurrent heart failure, hypertension, diab etes, morbid obesity. Pulmonary point of view, continue BiPAP. Beta rahat was decreased. Anticoa gulation, diuretics. Encourage BiPAP use. Fall precautions. Being followed by cardiology. Being s cheduled either for cardioversion or ablation therapy. Hopefully will pursue on Sunday. Fall precau tions. Will follow with you. Tia Godinez MD cc: [phone] TT: 08/19/2016 18:44:39 Confirmation # [id number] Dictation # [id number] rn
--- NOTE | 2016-08-19 19:03 | PN ---
DATE: 08/19/2016 The patient in room 276, bed 1. REASON FOR CONSULTATION AND FOLLOWUP: Status post of fall, atrial fibrillation with rapid ventricula r rate, cardiomyopathy. HISTORY OF PRESENT ILLNESS: The patient is a 56-year-old male with past medical history significant for decompensated congestive heart failure, multiple admissions, noncompliant with medication, histor y of chronic atrial fibrillation, failed CORA cardioversion multiple times, arrangements were made for radiofrequency ablation at [facility], but patient will not show up for that appointment. Th e patient now with tripped at home and fell down and hit his chest to the door and got trauma to the left rib. Repeat echo showed severely reduced LV function. Now patient is scheduled Sunday at [facility] for radiofrequency ablation of atrial fibrillation. The patient is sitting in chair and he says his breathing is better. Denies palpitation. Denies chest pain. PHYSICAL EXAMINATION: VITAL SIGNS: Blood pressure 104/77, respirations 18, pulse 100, temperature 97.3. HEAD: Normocephalic. EYES: Pupils normal. Conjunctivae normal. NECK: JVP low. Carotid equal. THORAX: AP diameter normal. LUNGS: Clear. CARDIOVASCULAR: S1, S2, irregular rhythm, no rub. ABDOMEN: Protuberant, no organomegaly. EXTREMITIES: No clubbing, no cyanosis. Edema in legs is also improving. LABORATORY DATA: WBC 13.6, hemoglobin 12.7, hematocrit 39.7, platelet 166. Sodium 137, potassium 4. 4, BUN 44, creatinine 1.1, calcium 8.5, phosphorous 3.4, magnesium 1.8, AST 56, ALT 182, total protei n and albumin normal. DIAGNOSES: Cardiomyopathy, atrial fibrillation with rapid rate, cardiomyopathy, nonischemic type, st atus post cardiac catheterization x 3, no significant coronary artery disease, failed CORA cardioversi on in the past, mitral regurgitation, tricuspid regurgitation. Most recent echo was done 08/15/2016, and it showed a mildly dilated left ventricle, severely impaired left ventricular systolic function, right ventricle moderately dilated, right ventricular systolic function is also severely reduced, le ft ventricular ejection fraction about 25%. Noncompliant patient PLAN: Arrangements have been already made on Sunday at [facility] for ablation of atrial fibr illation. We will continue glimepiride 4 mg p.o. daily, verapamil 80 mg t.i.d., amiodarone 200 mg camilo casper, from 08/17 to 08/21 amiodarone 400 mg p.o. t.i.d. and from 08/22 it will be 200 mg daily, warfarin 4 m g daily, digoxin 0.125 daily, furosemide 40 mg p.o. b.i.d., Lipitor 40 mg daily, metoprolol 25 mg q. 8 hours, cefepime 1 gram IV q. 12 hours, Protonix 40 daily, Solu-Medrol 20 mg IV q. 12 hours. Vancom ycin 1 gram IV daily, lisinopril 2.5 mg daily, Xopenex hand nebulizer therapy. Will follow with you. Tia Cabello MD cc: [phone] TT: 08/19/2016 19:02:57 Confirmation # [id number] Dictation # [id number] carla
--- NOTE | 2016-08-19 19:39 | PN ---
DATE: 08/19/2016 SUBJECTIVE: This patient was seen and evaluated earlier today. The patient is comfortable. No complaints of abdominal pain, tolerating the diet. PHYSICAL EXAMINATION: VITAL SIGNS: Temperature is 97.3, pulse 105, blood pressure 114/88. HEENT: Atraumatic, anicteric. NECK: Supple. HEART: S1, S2 heard. LUNGS: Bilateral air entry present. ABDOMEN: Soft. There is no tenderness. Distended. EXTREMITIES: Bilateral pitting pedal edema present. NEUROLOGIC: Alert and more oriented. Moves all the extremities. LABORATORY DATA: Hemoglobin 12.7, hematocrit 39.7, WBC 13.6, platelets 166. The BUN is 44, creatinine 1.1. LFTs: ALT 188 and is showing downward trend. Alkaline phosphatase is normal 165. IMPRESSION/PLAN: This 56-year-old patient with chronic obstructive pulmonary disease, cardiomyopathy, heart failure, diabetes mellitus, morbid obesity, atrial fibrillation with rapid ventricular response, found to have elevated liver function tests. Now showing downward trend. Ultrasound showed gallbladder sludge with a slightly prominent common bile duct. The patient has been started on Actigall. The patient has been improving liver function tests. The likely cause for the liver function tests may be probably secondary to hepatic condition which has been improving. We will continue to closely follow up the LFTs. Thank you very much for allowing us to participate in the care of the patient. Rose Candelario MD cc: [phone] TT: 08/19/2016 19:39:00 Confirmation # [id number] Dictation # [id number] carla TABOR
--- NOTE | 2016-08-19 22:23 | CP.PCM.PN ---
Subjective - Date & Time of Evaluation Date of Evaluation: 08/19/16 Time of Evaluation: 22:22 - Subjective Subjective: # 24 angiocath was inserted in left hand. Dx:Poor venous access. Objective - Vital Signs/Intake and Output Vital Signs (last 24 hours): Temp Pulse Resp BP Pulse Ox 97.5 F L 96 H 18 92/56 L 93 L 08/19/16 17:55 08/19/16 22:11 08/19/16 17:55 08/19/16 22:11 08/19/16 05:46 - Medications Medications: Current Medications Amiodarone HCl (Cordarone) 200 mg PO DAILY [facility] Amiodarone HCl (Cordarone) 400 mg PO TID [facility] Stop: 08/21/16 23:59 Last Admin: 08/19/16 18:29 Dose: 400 mg Atorvastatin Calcium (Lipitor) 40 mg PO DIN [facility] Last Admin: 08/14/16 22:59 Dose: 40 mg Digoxin (Lanoxin) 0.125 mg PO 1400 [facility] Last Admin: 08/15/16 16:52 Dose: Not Given Furosemide (Lasix) 40 mg PO BID [facility] Last Admin: 08/15/16 09:15 Dose: 40 mg Furosemide (Lasix) 40 mg PO BID [facility] Last Admin: 08/19/16 18:28 Dose: 40 mg Glimepiride (Amaryl) 4 mg PO DAILY [facility] Last Admin: 08/15/16 09:18 Dose: 4 mg Guaifenesin/Dextromethorphan (Robitussin Dm) 5 ml PO Q4H PRN PRN Reason: Cough Last Admin: 08/17/16 03:14 Dose: 5 ml Hydralazine HCl (Apresoline) 10 mg PO QID PRN PRN Reason: for sbp >170 and Diastolic>100 Cefepime HCl (Maxipime 1gm) 1 gm in 100 mls @ 100 mls/hr IVPB Q12 [facility] PRN Reason: Protocol Last Admin: 08/19/16 21:29 Dose: 100 mls/hr Vancomycin HCl (Vancomycin 1gm) 1 gm in 250 mls @ 167 mls/hr IVPB DAILY [facility] PRN Reason: Protocol Last Admin: 08/19/16 11:26 Dose: 167 mls/hr Insulin Detemir (Levemir) 40 unit SC ACBD [facility] Last Admin: 08/19/16 18:30 Dose: 40 unit Insulin Human Regular (Humulin R Med) 0 units SC ACHS [facility] PRN Reason: Protocol Last Admin: 08/19/16 21:58 Dose: Not Given Ipratropium [place] (Atrovent) 0.5 mg IH [id number] PRN PRN Reason: Wheezing Last Admin: 08/18/16 19:56 Dose: 0.5 mg Levalbuterol HCl (Xopenex) 1.25 mg IH [id number] PRN PRN Reason: Wheezing Last Admin: 08/18/16 19:56 Dose: 1.25 mg Lisinopril (Zestril) 2.5 mg PO DAILY [facility] Last Admin: 08/19/16 10:14 Dose: Not Given Lorazepam (Ativan) 2 mg PO [facility] PRN Reason: Protocol Last Admin: 08/19/16 21:26 Dose: 2 mg Lorazepam (Ativan) 1 mg PO BID PRN; Protocol PRN Reason: Anxiety Methylprednisolone (Solu-Medrol) 20 mg IVP Q12 [facility] Last Admin: 08/19/16 21:27 Dose: 20 mg Metoprolol Tartrate (Lopressor) 50 mg PO BID [facility] Last Admin: 08/15/16 09:16 Dose: 50 mg Metoprolol Tartrate (Lopressor) 25 mg PO Q8 [facility] Last Admin: 08/19/16 22:11 Dose: Not Given Midazolam HCl (Versed Inj) 0.5 mg IVP ONCE PRN PRN Reason: ANXIE Montelukast Sodium (Singulair) 10 mg PO HS [facility] Last Admin: 08/19/16 21:27 Dose: 10 mg Mupirocin (Bactroban Ointment) 1 gm TOP BID [facility] Last Admin: 08/19/16 18:31 Dose: 1 dose Nystatin (Nystop Topical Powder) 0 gm TOP Q12H [facility] Last Admin: 08/19/16 10:13 Dose: 1 dose Pantoprazole Sodium (Protonix Ec Tab) 40 mg PO 0630 [facility] Last Admin: 08/19/16 06:00 Dose: 40 mg Trazodone HCl (Desyrel) 200 mg PO HS [facility] Last Admin: 08/19/16 21:31 Dose: 200 mg Verapamil HCl (Calan Tab) 80 mg PO TID [facility] Last Admin: 08/16/16 17:31 Dose: Not Given Warfarin Sodium (Coumadin) 4 mg PO 1800 [facility] PRN Reason: Protocol Last Admin: 08/19/16 18:29 Dose: 4 mg - Labs Labs: 08/19/16 07:39 08/19/16 07:39 PT 18.7 Seconds (9.9-11.8) H 08/19/16 07:39 INR 1.73 (0.93-1.08) H 08/19/16 07:39 APTT 25.2 Seconds (23.7-30.8) 08/14/16 19:10
--- NOTE | 2016-08-19 23:33 | CP.PCM.PN ---
Subjective - Date & Time of Evaluation Date of Evaluation: 08/19/16 Time of Evaluation: 23:31 - Subjective Subjective: Patient was seen at bedside. Complains of left ribs pain. States that after fall his ribs have been hurting. No other complaints now. Denies sob, nausea, sweating , palpitations. Medical record was reviewed. This 56 year old white male was admitted with Has PMH of atrial fibrillation, obeisty,COPD, DM II ,HTN, CHF, left leg ischemia. Objective - Vital Signs/Intake and Output Vital Signs (last 24 hours): Temp Pulse Resp BP Pulse Ox 97.5 F L 96 H 18 92/56 L 93 L 08/19/16 17:55 08/19/16 22:11 08/19/16 17:55 08/19/16 22:11 08/19/16 05:46 - Medications Medications: Current Medications Amiodarone HCl (Cordarone) 200 mg PO DAILY [facility] Amiodarone HCl (Cordarone) 400 mg PO TID [facility] Stop: 08/21/16 23:59 Last Admin: 08/19/16 18:29 Dose: 400 mg Atorvastatin Calcium (Lipitor) 40 mg PO DIN [facility] Last Admin: 08/14/16 22:59 Dose: 40 mg Digoxin (Lanoxin) 0.125 mg PO 1400 [facility] Last Admin: 08/15/16 16:52 Dose: Not Given Furosemide (Lasix) 40 mg PO BID [facility] Last Admin: 08/15/16 09:15 Dose: 40 mg Furosemide (Lasix) 40 mg PO BID [facility] Last Admin: 08/19/16 18:28 Dose: 40 mg Glimepiride (Amaryl) 4 mg PO DAILY [facility] Last Admin: 08/15/16 09:18 Dose: 4 mg Guaifenesin/Dextromethorphan (Robitussin Dm) 5 ml PO Q4H PRN PRN Reason: Cough Last Admin: 08/17/16 03:14 Dose: 5 ml Hydralazine HCl (Apresoline) 10 mg PO QID PRN PRN Reason: for sbp >170 and Diastolic>100 Cefepime HCl (Maxipime 1gm) 1 gm in 100 mls @ 100 mls/hr IVPB Q12 [facility] PRN Reason: Protocol Last Admin: 08/19/16 21:29 Dose: 100 mls/hr Vancomycin HCl (Vancomycin 1gm) 1 gm in 250 mls @ 167 mls/hr IVPB DAILY [facility] PRN Reason: Protocol Last Admin: 08/19/16 11:26 Dose: 167 mls/hr Insulin Detemir (Levemir) 40 unit SC ACBD [facility] Last Admin: 08/19/16 18:30 Dose: 40 unit Insulin Human Regular (Humulin R Med) 0 units SC ACHS [facility] PRN Reason: Protocol Last Admin: 08/19/16 21:58 Dose: Not Given Ipratropium [place] (Atrovent) 0.5 mg IH [id number] PRN PRN Reason: Wheezing Last Admin: 08/18/16 19:56 Dose: 0.5 mg Levalbuterol HCl (Xopenex) 1.25 mg IH [id number] PRN PRN Reason: Wheezing Last Admin: 08/18/16 19:56 Dose: 1.25 mg Lisinopril (Zestril) 2.5 mg PO DAILY [facility] Last Admin: 08/19/16 10:14 Dose: Not Given Lorazepam (Ativan) 2 mg PO AMHS [facility] PRN Reason: Protocol Last Admin: 08/19/16 21:26 Dose: 2 mg Lorazepam (Ativan) 1 mg PO BID PRN; Protocol PRN Reason: Anxiety Methylprednisolone (Solu-Medrol) 20 mg IVP Q12 [facility] Last Admin: 08/19/16 21:27 Dose: 20 mg Metoprolol Tartrate (Lopressor) 50 mg PO BID [facility] Last Admin: 08/15/16 09:16 Dose: 50 mg Metoprolol Tartrate (Lopressor) 25 mg PO Q8 [facility] Last Admin: 08/19/16 22:11 Dose: Not Given Midazolam HCl (Versed Inj) 0.5 mg IVP ONCE PRN PRN Reason: ANXIE Montelukast Sodium (Singulair) 10 mg PO HS [facility] Last Admin: 08/19/16 21:27 Dose: 10 mg Mupirocin (Bactroban Ointment) 1 gm TOP BID [facility] Last Admin: 08/19/16 18:31 Dose: 1 dose Nystatin (Nystop Topical Powder) 0 gm TOP Q12H [facility] Last Admin: 08/19/16 10:13 Dose: 1 dose Pantoprazole Sodium (Protonix Ec Tab) 40 mg PO 0630 [facility] Last Admin: 08/19/16 06:00 Dose: 40 mg Trazodone HCl (Desyrel) 200 mg PO HS [facility] Last Admin: 08/19/16 21:31 Dose: 200 mg Verapamil HCl (Calan Tab) 80 mg PO TID [facility] Last Admin: 08/16/16 17:31 Dose: Not Given Warfarin Sodium (Coumadin) 4 mg PO 1800 [facility] PRN Reason: Protocol Last Admin: 08/19/16 18:29 Dose: 4 mg - Labs Labs: 08/19/16 07:39 08/19/16 07:39 PT 18.7 Seconds (9.9-11.8) H 08/19/16 07:39 INR 1.73 (0.93-1.08) H 08/19/16 07:39 APTT 25.2 Seconds (23.7-30.8) 08/14/16 19:10 - Constitutional Appears: Well, No Acute Distress - Head Exam Head Exam: ATRAUMATIC, NORMAL INSPECTION, NORMOCEPHALIC Additional comments: Obese person. - Eye Exam Eye Exam: Normal appearance - ENT Exam ENT Exam: Normal External Ear Exam - Neck Exam Neck Exam: Normal Inspection - Respiratory Exam Respiratory Exam: Clear to Ausculation Bilateral, NORMAL BREATHING PATTERN. absent: Chest Wall Tenderness, Rales, Rhonchi, Wheezes, Respiratory Distress, Stridor - Cardiovascular Exam Cardiovascular Exam: Irregular Rhythm. absent: JVD - GI/Abdominal Exam GI & Abdominal Exam: absent: Distended - Rectal Exam Rectal Exam: Deferred - Extremities Exam Extremities Exam: Pedal Edema (++ b/l.) - Back Exam Back Exam: NORMAL INSPECTION - Neurological Exam Neurological Exam: Alert, Oriented x3 - Psychiatric Exam Psychiatric exam: Normal Affect, Normal Mood - Skin Skin Exam: Normal Color Assessment and Plan - Assessment and Plan (Free Text) Assessment: Left rib contusion. Chest pain. DM II. HTN. CHF. Obesity. Atrial fibrillation. Plan: Tylenol 975 mg PO stat. Continue present management.
[2016-08-20] MEDS: Pantoprazole 40 mg EC Tab PO SCH (05:41)
[2016-08-20] MEDS: Levalbuterol 1.25 MG/3 ML Inhal Soln UD IH PRN (08:15)
[2016-08-20] MEDS: Ipratropium 0.02% Inhal Soln (0.5 mg/2.5 ml) UD IH PRN (08:16)
[2016-08-20] MEDS: Insulin Reg-MEDIUM-Coverage SC SCH ×3 (08:23→17:18)
[2016-08-20 08:50] LABS: ADD MANUAL DIFF? NO
[2016-08-20 08:53] LABS: BASO # 0.02 K/mm3 (0.0-2.0); BASO % 0.1 % (0.0-3.0); EOS % 0.1 % (1.5-5.0); GRAN # 13.83 (1.4-6.5); GRAN % 85.8 % (50.0-68.0); HEMATOCRIT 42.1 % (42.0-52.0); LYMPH # 1.6 (1.2-3.4); LYMPH % 9.6 % (22.0-35.0); MEAN CELL VOLUME 85.2 fL (80.0-105.0); MEAN CORPUSCULAR HEMOGLOBIN 27.5 pg (25.0-35.0); MEAN CORPUSCULAR HGB CONC 32.3 g/dl (31.0-37.0); MEAN PLATELET VOLUME 10.6 fl (7.0-11.0); MONO # 0.7 (0.1-0.6); MONO % 4.4 % (1.0-6.0); PLATELET COUNT 182 10^3/uL (120.0-450.0); WHITE BLOOD COUNT 16.1 10^3/ul (4.5-11.0)
[2016-08-20 08:53] LABS: INR 1.77 (0.93-1.08)
[2016-08-20 08:54] LABS: ALB/GLOB RATIO 1.2 (1.1-1.8); ALKALINE PHOSPHATASE 63 U/L (38-133); ALT/SGPT 156 U/L (7-56); AST/SGOT 48 U/L (15-59); BILIRUBIN,TOTAL 0.7 mg/dL (0.2-1.3); BLOOD UREA NITROGEN 47 mg/dL (7-21); CALCIUM 8.7 mg/dL (8.4-10.5); CARBON DIOXIDE 26 mmol/L (21-33); CHLORIDE 101 mmol/L (98-107); GFR AFRICAN-AMERICAN > 60; GLUCOSE,RANDOM 109 mg/dL (70-110); MAGNESIUM 1.7 mg/dL (1.7-2.2); PHOSPHOROUS 3.7 mg/dL (2.5-4.5); POTASSIUM 4.2 mmol/L (3.6-5.0); SODIUM 135 mmol/L (132-148); TOTAL PROTEIN 5.7 g/dL (5.8-8.3)
[2016-08-20] MEDS: MethylPREDNISolone 40 mg Vial IVP SCH (09:43)
[2016-08-20] MEDS: Vancomycin 1gm in NS 250ml 1 GM/250 ML BAG IVPB SCH (09:43)
[2016-08-20] MEDS: Cefepime 1gm in NS 100ml 1 GM/100 ML BAG IVPB SCH ×2 (09:44→21:54)
[2016-08-20] MEDS: Insulin Detemir 100 units/ml Vial (Levemir) SC SCH ×2 (09:44→17:37)
[2016-08-20] MEDS: Nystatin 100,000 Units/gm Topical Pow(15 gm) TOP SCH (09:48)
--- NOTE | 2016-08-20 10:53 | PN ---
DATE: 08/20/2016 The patient is a 56-year-old, seen and examined, sitting in chair, offers no complaint. No nausea, v omiting, no diarrhea. His legs seem to be edematous. PHYSICAL EXAMINATION: VITAL SIGNS: He is afebrile, pulse 97, respirations 20, blood pressure 111/75. LUNGS: Bilateral fair airflow, few soft crackles at bases. HEART: S1, S2 audible. ABDOMEN: Soft, obese, nontender, no rebound, no guarding. NEUROLOGIC: He is awake and alert, communicative. EXTREMITIES: Bilateral legs +3 edema. LABORATORY EXAMINATION: WBCs 16.1, hemoglobin 13.6, hematocrit 42.1, platelets of 182. His PT is 19 .1, INR 1.77. Chemistry: Sodium 135, potassium 4.2, chloride 101, CO2 26, BUN 47, creatinine 1.0, b lood sugar of 109, ALT 156. Blood cultures are negative. ASSESSMENT: 1. Nonischemic cardiomyopathy. 2. Chronic atrial fibrillation. 3. Status post cardiac catheterization with nonocclusive coronaries. The patient had transesophagea l echocardiogram followed by cardioversion in the past and did not set his rhythm to sinus. 4. Chronic obstructive pulmonary disease. 5. Obstructive sleep apnea. 6. Tricuspid regurgitation. 7. Bipolar disorder. 8. Left ventricular dysfunction with ejection fraction of 25%. PLAN: The patient is going to be transferred to [facility] for radiofrequency abrasion. In the meanti me, we will continue patient on oral hypoglycemic. He is on Ativan as needed. He was also loaded wi th amiodarone and currently on amiodarone 200 three times a day. He is on Coumadin 4 mg daily. He i s subtherapeutic. I will give him 5 mg today. Case also discussed with the patient's nurse taking c are of him. Will order for LUCIE stocking or SID wrap for his bilateral leg edema and we will continue him on cefepime. Currently, he is on Solu-Medrol. That can be switched to p.o. prednisone 20 mg tw ice a day. Rdige Velazquez MD cc: [phone] TT: 08/20/2016 10:52:33 Confirmation # [id number] Dictation # [id number] en
--- NOTE | 2016-08-20 11:37 | PN ---
DATE: 08/20/2016 The patient is in room 276, bed 1. REASON FOR CONSULTATION AND FOLLOWUP: Status post fall, atrial fibrillation with rapid ventricular r ate, cardiomyopathy. HISTORY OF PRESENT ILLNESS: The patient is a 56-year-old male with past medical history significant for decompensated congestive heart failure, multiple admissions, noncompliant with medication, histor y of chronic atrial fibrillation, failed CORA cardioversion. Many times, arrangements were made for a blation of the atrial fibrillation, but patient never kept those appointments. The patient now chyna ed at home and fell down, hit his chest to the door and got trauma to the left rib. Echo showed marcia rely reduced LV function. Now, patient is scheduled Sunday at [facility] for radiofrequency a blation for atrial fibrillation. The patient sitting in chair comfortably without chest pain, shortn ess of breath, palpitation. He still has some edema on the legs. PHYSICAL EXAMINATION: VITAL SIGNS: BP 117/75, respirations 20, pulse 97, temperature 98.4. HEAD: Normocephalic. EYES: Pupils normal. Conjunctivae normal. NOSE AND THROAT: Normal. NECK: JVP low. Carotid equal. THORAX: AP diameter normal. LUNGS: Clear. CARDIOVASCULAR: S1, S2. ABDOMEN: Protuberant, no organomegaly. EXTREMITIES: The patient still has edema on both legs. No clubbing, no cyanosis. LABORATORIES: WBC 16.1, hemoglobin 13.6, hematocrit 42.1 and platelet is 182. Sodium 135, potassium 4.2, BUN 47, creatinine 1.0. Calcium, phosphorus, magnesium normal. ALT 156, AST 48, protein 5.7, albumin 3.1. Prothrombin time 19.1, INR 1.77. DIAGNOSES: Cardiomyopathy, atrial fibrillation with rapid rate, [facility]ischemic [facility], nonobstructive coronary artery disease, failed transesophag eal echocardiogram cardioversion, mitral regurgitation, tricuspid regurgitation. Most recent echo wa s 08/15/2016. It showed severely impaired systolic function of left ventricle with ejection fraction about 25%. The patient is on glimepiride 4 mg p.o. daily, verapamil 80 mg t.i.d., amiodarone 200 mg daily, initi ally it was 400 mg t.i.d. up to 08/21 and then it was dropped to 200 mg daily, warfarin 5 mg p.o. yvan y, digoxin 0.125 p.o. daily, Lasix 40 mg p.o. b.i.d., Lipitor 40 mg daily, insulin as ordered, metopr olol tartrate 50 mg b.i.d. which is on hold and now patient is on metoprolol tartrate 25 p.o. q. 8 ho urs, prednisone 20 mg b.i.d., Protonix 40 p.o. daily. We will continue present therapy. The patient to transfer to [facility] tomorrow for ablation. Tia Cabello MD cc: [id number] TT: 08/20/2016 11:36:50 Confirmation # [id number] Dictation # [id number] en
--- NOTE | 2016-08-20 17:35 | PN ---
DATE: 08/20/2016 REFERRING PHYSICIAN: Dr. Villagomez. SUBJECTIVE: The patient is out of bed to chair, night was unremarkable, refused to use CPAP ____ his BiPAP. Short of breath with minimal exertion, significant leg swelling, no chest pain, no nausea, n o vomiting, no diarrhea. OBJECTIVE: GENERAL: In no acute distress. VITAL SIGNS: Temp is 98, heart rate is 104, respiratory rate is 20, blood pressure 130/89, pulse ox 95% on nasal cannula. HEENT: Moist mucous membrane. Crowded airway. NECK: Short, thick neck. LUNGS: Has decreased breath sounds at the bases. HEART: S1 and S2 irregular. ABDOMEN: Obese, soft, nontender. EXTREMITIES: Has edema up to the hips. NEUROLOGIC: Awake, alert, follows simple commands. MEDICATIONS: He is on Amaryl 4 mg daily which is on hold, hydralazine 10 mg q.i.d. p.r.n., Ativan 2 mg a.m. and at bedtime, Ativan 1 mg twice a day p.r.n., Atrovent 0.5 mg inhaled q. 6 hours p.r.n., Ca traci 80 mg 3 times a day, amiodarone 400 mg 3 times a day, loading dose ____ and also ____ 200 mg yvan y will be started. Coumadin 5 mg will be given, trazodone 2 mg at bedtime, insulin coverage, digoxin 0.125 mg daily, Lasix 40 mg twice a day, Levemir 40 units subQ a.c. b.d., Lipitor 40 mg daily, meto prolol tartrate 50 mg twice a day, also cefepime 1 g IV q. 12 hours, prednisone 20 mg q. 12 hours, Pr otonix 40 mg daily, Robitussin 5 mL q. 4 hours p.r.n., Singulair 10 mg daily, vancomycin 1 g IV yvan y, Xopenex inhaled q. 6 hours, Zestril is at 2.5 mg daily. LABORATORY DATA: Shows hemoglobin 13.6, hematocrit 42.1, WBC 16.1, platelet count is 182. INR 1.77. Sodium 135, potassium 4.2, chloride 101, bicarbonate 26, BUN 47, creatinine 1.0, glucose 109, calci um 8.7, phosphorus 3.7, magnesium 1.7, AST 48, ALT 156, alkaline phosphatase is 650, albumin is 3.1. Microbiology: Blood cultures, urine culture no growth. IMPRESSION AND PLAN: Atrial fibrillation with rapid ventricular response, chronic obstructive lung d isease, obstructive sleep apnea syndrome, cardiomyopathy, recurrent heart failure, hypertension, diab etes, morbid obesity. Pulmonary point of view, doing okay. Will encourage BiPAP use. Avoid sedativ e, beta blockers, after load reducers, diuretics. We will decrease the prednisone 20 mg daily. The patient is scheduled to go to [facility] for possible ablation therapy. Fall precaution. En courage CPAP use. If sedated needs close cardiopulmonary monitoring. Thank you and will follow with you. Tia Godinez MD cc: [phone] TT: 08/20/2016 17:34:55 Confirmation # [id number] Dictation # [id number] carla
--- NOTE | 2016-08-20 23:25 | PN ---
DATE: 08/20/2016 SUBJECTIVE: This patient was seen and evaluated earlier. Tolerating the diet. No complaints of any abdominal pain. PHYSICAL EXAMINATION: VITAL SIGNS: Remains afebrile. Blood pressure is 126/95, temperature is 98.6, pulse 88. HEENT: Atraumatic, anicteric. NECK: Supple. HEART: S1, S2 heard. LUNGS: Bilateral air entry present, slightly reduced at the base. ABDOMEN: Softly distended. EXTREMITIES: Bilateral edema present. LABORATORY DATA: LFTs still continue to be a downward trend. Alkaline phosphatase remains normal, now ALT is only 156. On 08/14 it was 659. Significant improvement. IMPRESSION/PLAN: This 56-year-old patient with a history of atrial fibrillation , was admitted with rapid ventricular response. Did have a history of cardiomyopathy. Admitted deconditioned with early decompensation. The patient was found to have an elevated LFTs. The patient had an ultrasound, showed sludge and a slightly prominent common bile duct, but it measured only 7 mm. The most likely cause of the increased LFTs could be secondary to hepatic condition, which has been improving. The patient also had sludge and a borderline common bile duct, so it was reasonable to start the patient on Actigall. The patient has been on that. LFTs have been significantly improving. The plan is to continue the Actigall for a few months and repeat the ultrasound, also, to evaluate the sludge. Will continue to closely follow up his care and suggest further management based on the clinical course. Rose Candelario MD cc: [id number] TT: 08/20/2016 23:24:59 Confirmation # [id number] Dictation # [id number] hunter TABOR
[2016-08-21] MEDS: Nystatin 100,000 Units/gm Topical Pow(15 gm) TOP SCH ×2 (00:13→10:59)
[2016-08-21] MEDS: Insulin Reg-MEDIUM-Coverage SC SCH ×2 (00:13→10:57)
[2016-08-21] MEDS: Pantoprazole 40 mg EC Tab PO SCH (05:37)
[2016-08-21 07:29] LABS: ADD MANUAL DIFF? NO
--- NOTE | 2016-08-21 07:34 | PN ---
DATE: 08/17/2016 ADDENDUM This patient was seen and evaluated earlier. This is an addendum to the GI progress report dictated by Sheryl Sawant APN. The patient denies any ab dominal complaints. LFTs remain elevated, ALT is 257. BNP is also elevated. RECOMMENDATIONS: Would recommend followup of the LFTs. Continue the Actigall. Thank you very much for allowing us to participate in the care of the patient. Rose Candelario MD cc: [phone] TT: 08/19/2016 08:12:35 Confirmation # [id number] Dictation # [id number] carla
[2016-08-21 07:37] LABS: BASO # 0.01 K/mm3 (0.0-2.0); BASO % 0.1 % (0.0-3.0); EOS % 0.2 % (1.5-5.0); GRAN # 13.09 (1.4-6.5); HEMATOCRIT 40.9 % (42.0-52.0); LYMPH # 2.3 (1.2-3.4); LYMPH % 13.8 % (22.0-35.0); MEAN CELL VOLUME 84.5 fL (80.0-105.0); MEAN CORPUSCULAR HEMOGLOBIN 27.5 pg (25.0-35.0); MEAN CORPUSCULAR HGB CONC 32.5 g/dl (31.0-37.0); MONO % 5.9 % (1.0-6.0); PLATELET COUNT 211 10^3/uL (120.0-450.0); RED CELL DISTRIBUTION WIDTH 16.9 % (11.5-14.5); WHITE BLOOD COUNT 16.4 10^3/ul (4.5-11.0)
[2016-08-21 07:47] LABS: INR 2.03 (0.93-1.08)
[2016-08-21 07:54] LABS: ALB/GLOB RATIO 1.2 (1.1-1.8); ALKALINE PHOSPHATASE 59 U/L (38-133); ALT/SGPT 143 U/L (7-56); AST/SGOT 54 U/L (15-59); BILIRUBIN,TOTAL 0.7 mg/dL (0.2-1.3); BLOOD UREA NITROGEN 48 mg/dL (7-21); CALCIUM 8.7 mg/dL (8.4-10.5); CARBON DIOXIDE 31 mmol/L (21-33); CHLORIDE 100 mmol/L (98-107); GFR AFRICAN-AMERICAN > 60; GLUCOSE,RANDOM 80 mg/dL (70-110); MAGNESIUM 1.7 mg/dL (1.7-2.2); PHOSPHOROUS 3.6 mg/dL (2.5-4.5); POTASSIUM 3.8 mmol/L (3.6-5.0); SODIUM 138 mmol/L (132-148); TOTAL PROTEIN 5.8 g/dL (5.8-8.3)
[2016-08-21] MEDS ORDERED: Potassium Chloride 20 mEq ER Tab PO ONE (09:03)
--- NOTE | 2016-08-21 09:45 | PN ---
DATE: 08/21/2016 REASON FOR CONSULTATION: Status post fall, atrial fibrillation with rapid ventricular rate, cardiomy opathy. BRIEF CLINICAL HISTORY: This is a 56-year-old male with a past medical history significant for decom pensated congestive heart failure, multiple admissions with decompensated congestive heart failure, c hronic atrial fibrillation, failed CORA cardioversion many times. Recently, had a trip and fell down and sustained trauma to the chest. The patient is now being arranged to go to [facility] for radiofrequency ablation. The patient is being loaded with amiodarone. PHYSICAL EXAMINATION: VITAL SIGNS: Temperature afebrile, heart rate , blood pressure 118/ . HEENT: PERRLA. Extraocular muscles intact. NECK: Supple. No carotid bruits. No thyromegaly. CHEST: Clear to auscultation. HEART: S1, S2 regular. ABDOMEN: Soft. EXTREMITIES: Clubbing, cyanosis negative. BLOOD WORKUP: WBC 16.4, hemoglobin 13.3, hematocrit 40.9, platelet count 211. Chemistry shows sodiu m 130, potassium 3. , chloride 100, carbon dioxide 31, anion gap of 11, BUN 40, creatinine 1.1. INR 2.03. IMPRESSION: Atrial fibrillation with rapid ventricular rate, cardiomyopathy, possibly related to rat e related atrial fibrillation related to cardiomyopathy. The most recent echo shows ejection f raction 25%, prior to that 45%. Decompensated congestive heart failure, acute on chronic, secondary to systolic dysfunction, status post cardiac catheterization, nonobstructive coronary artery disease, essentially normal coronaries, mitral regurgitation, tricuspid regurgitation. RECOMMENDATION: Continue to hold Coumadin. Continue amiodarone 200 mg. Continue verapamil, continu e beta rahat. Possible transfer to [facility]. Today, INR is 2. We will inform Dr. Bonilla about the INR today is 2. Coumadin on hold. We will follow with you. Thank you, Dr. Villagomez, for providing us the opportunity in taking care of the patient. We will fol low. We will keep n.p.o. and let Dr. Bonilla know for possible transfer. Tia Rajan MD cc: [id number] TT: 08/21/2016 09:44:55 Confirmation # [id number] Dictation # [id number] en
[2016-08-21] MEDS ORDERED: Phytonadione 10 mg/ml Inj (Adult) SC ONE (10:08)
[2016-08-21] MEDS: Insulin Detemir 100 units/ml Vial (Levemir) SC SCH (10:58)
[2016-08-21] MEDS: Cefepime 1gm in NS 100ml 1 GM/100 ML BAG IVPB SCH (11:02)
[2016-08-21] MEDS: Vancomycin 1gm in NS 250ml 1 GM/250 ML BAG IVPB SCH (11:03)
--- NOTE | 2016-08-21 11:24 | PN ---
DATE: 08/21/2016 Seen and examined at the bedside this morning. The patient is awaiting transfer to [facility] for cardiac ablation. He denies any nausea, vomiting, or abdominal pain. Tolerating oral intake a nd had a bowel movement this morning reported to be formed. No reports of any overt GI bleed. No ac dereck overnight events. They are trying to put an IV line, a Hep-Lock right now. VITAL SIGNS: Temperature 97.9, blood pressure 134/80, pulse 76, respirations 22, 97% room air. LABORATORIES: Today, WBC remains at 16.4, hemoglobin 13.3, hematocrit is 40.9, platelets is 211. PT 21.9, INR is 2.03. Sodium 138, K 3.8, BUN is 48, creatinine is 1.1. His total bilirubin 0.7, AST 5 4, ALT is 143. This is slowly improving. Alkaline phos is 59. PHYSICAL EXAMINATION: HEENT: Sclera is anicteric. NECK: Supple. CARDIAC: S1, S2. LUNG SOUNDS: Clear. ABDOMEN: With bowel sounds, softly obese, nontender. No rebound or guarding. EXTREMITIES: Has bilateral SID bandages. ASSESSMENT: This is a 56-year-old male status post fall with atrial fibrillation with rapid ventricu lar rate and decompensated congestive heart failure with ejection fraction of 25%. He has history of coronary artery disease and cardiac catheterization. Noted to have elevated liver enzymes, which ma y be secondary to hepatic congestion, but liver enzymes are improving. He did have abdominal ultraso und, which showed slightly prominent common bile duct at 7 mm and some sludge, but no gallstones. PLAN: Continue to monitor liver enzymes. Recommend Actigall, which he should take for a few months and repeat ultrasound to evaluate the sludge. The patient is going to be transferred to [facility] for cardiac ablation. The patient's Lipitor is on hold. Continue PPI. The patient is on ___ __. This was discussed with Dr. Candelario, who is covering rounds today. Sheryl FERRARI cc: [id number] TT: 08/21/2016 11:24:00 Confirmation # [id number] Dictation # [id number] en
[2016-08-21 11:39] VITALS: BP 119/92; PULSE 74; RESP 18; TEMP 98.1; O2SAT 94
--- NOTE | 2016-08-21 18:23 | DS ---
This is a 56-year-old male who is coming into the hospital because of atrial fibrillation that is not well controlled. He has difficulty controlling atrial fibrillation and he was placed on multiple me dications including amiodarone, beta blockers and calcium channel blockers. He is going to be discha rged today to [facility] for evaluation for an ablation by his EP Dr. Bonilla. The patient has no complaints of any headaches or dizziness, no nausea, no vomiting. No history of dysuria or frequ ency, no nocturia. PHYSICAL EXAMINATION: VITAL SIGNS: Temperature is 97.9, pulse is 76, blood pressure 118/69, respirations 22, O2 saturation 97%. GENERAL: The patient comfortable, in no acute distress. HEENT: Anicteric sclerae. Moist mucosa. NECK: No JVD or adenopathy. CARDIAC: S1/S2. No murmurs. No rubs. Regular. RESPIRATORY: Clear to auscultation bilaterally. No wheezes, rales, or rhonchi. Good air entry. ABDOMEN: Bowel sounds are positive, soft, nontender, and nondistended. EXTREMITIES: No edema. Has 1+ pulses. ASSESSMENT: 1. Atrial fibrillation with rapid rate. 2. Diabetes type 2. 3. Chronic obstructive pulmonary disease. 4. Pleural effusion. 5. Dyslipidemia. 6. Obesity with a body mass index of 42. 7. Acute congestive heart failure secondary to systolic dysfunction. 8. Dyslipidemia. PLAN: The patient is currently comfortable. He is on Amaryl for his diabetes. He is going to merrick nue with Ativan. He is on verapamil for his atrial fibrillation. He is going to continue with amiod arone as well. The patient is on Coumadin. He is therapeutic this morning with an INR of 2.03. The patient is on cefepime for antibiotics. He has blood cultures and urine cultures that were negative . The patient is on prednisone daily. He is going to continue with vancomycin. He is on lisinopril for hypertension. I did speak to Dr. Rajan who okayed the patient to be discharged. CONDITION: Stable. ACTIVITIES: Increase as tolerated. Overall, prognosis is guarded. He was advised the importance of compliance and followup with his med ications. Axel Villagomez MD cc: [id number] TT: 08/21/2016 18:23:02 dn
== END 2016-08-21 11:42 | disposition short-term general hospital (02) | DRG 308 ==
LOC: ED 18:24 → ERH 21:07 → CCU 23:08 → OBSVTOIN 08-15 07:07 → 2RSO 08-17 21:11
PROVIDERS: ADMIT Internal Medicine Nephrology; ATTEND Internal Medicine Nephrology
PROC: 5A09457 Assistance with Respiratory Ventilation, 24-96 Consecutive Hours, Continuous Positive Airway Pressure (ICD-10-PCS; 2016-08-15)
PROC: 02HV33Z Insertion of Infusion Device into Superior Vena Cava, Percutaneous Approach (ICD-10-PCS; principal; 2016-08-16)
PROC: B54NZZA Ultrasonography of Left Upper Extremity Veins, Guidance (ICD-10-PCS; 2016-08-16)
DX: I48.1 Persistent atrial fibrillation (principal); I50.43 Acute on chronic combined systolic (congestive) and diastolic (congestive) heart failure; R57.0 Cardiogenic shock; N17.9 Acute kidney failure, unspecified; I42.9 Cardiomyopathy, unspecified; F05 Delirium due to known physiological condition; E87.2 Acidosis; J98.11 Atelectasis; Z68.41 Body mass index [BMI] 40.0-44.9, adult; I11.0 Hypertensive heart disease with heart failure; E11.40 Type 2 diabetes mellitus with diabetic neuropathy, unspecified; E78.5 Hyperlipidemia, unspecified; F41.9 Anxiety disorder, unspecified; G47.33 Obstructive sleep apnea (adult) (pediatric); J44.9 Chronic obstructive pulmonary disease, unspecified; E66.01 Morbid (severe) obesity due to excess calories; I25.10 Atherosclerotic heart disease of native coronary artery without angina pectoris; K21.9 Gastro-esophageal reflux disease without esophagitis; R09.02 Hypoxemia; I48.2 Chronic atrial fibrillation; F31.9 Bipolar disorder, unspecified; S20.212A Contusion of left front wall of thorax, initial encounter; F17.200 Nicotine dependence, unspecified, uncomplicated; E87.6 Hypokalemia; E83.42 Hypomagnesemia; M79.3 Panniculitis, unspecified; I08.1 Rheumatic disorders of both mitral and tricuspid valves; W01.190A Fall on same level from slipping, tripping and stumbling with subsequent striking against furniture, initial encounter; Z79.01 Long term (current) use of anticoagulants; Z79.4 Long term (current) use of insulin; Z91.14 Patient's other noncompliance with medication regimen; Y92.099 Unspecified place in other non-institutional residence as the place of occurrence of the external cause; Z95.810 Presence of automatic (implantable) cardiac defibrillator; Z91.11 Patient's noncompliance with dietary regimen; Z98.84 Bariatric surgery status

== ENCOUNTER 2016-08-25 15:03 | Inpatient (IN) | payer MEDICARE, OTHER ==
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
--- NOTE | 2016-08-25 16:48 | RAD ---
HISTORY: Shortness of breath. Portable study 15:49. COMPARISON: 08/16/2016. FINDINGS: LUNGS: No active pulmonary disease. Resolved infiltrates. PLEURA: No significant pleural effusion identified, no pneumothorax apparent. CARDIOVASCULAR: Cardiomegaly. No evidence of acute, significant cardiovascular disease. Position/ configuration of pacemaker Satisfactory. OSSEOUS STRUCTURES: No significant abnormalities. VISUALIZED UPPER ABDOMEN: Normal. OTHER FINDINGS: None. IMPRESSION: No active disease.
[2016-08-25 17:03] LABS: ADD MANUAL DIFF? NO
[2016-08-25 17:15] LABS: BASO # 0.01 K/mm3 (0.0-2.0); BASO % 0.1 % (0.0-3.0); EOS # 0.1 (0.0-0.7); EOS % 0.7 % (1.5-5.0); GRAN # 6.35 (1.4-6.5); GRAN % 76.7 % (50.0-68.0); HEMATOCRIT 38.1 % (42.0-52.0); LYMPH # 1.2 (1.2-3.4); LYMPH % 14.7 % (22.0-35.0); MEAN CELL VOLUME 88.2 fL (80.0-105.0); MEAN CORPUSCULAR HEMOGLOBIN 27.5 pg (25.0-35.0); MEAN CORPUSCULAR HGB CONC 31.2 g/dl (31.0-37.0); MEAN PLATELET VOLUME 9.8 fl (7.0-11.0); MONO # 0.7 (0.1-0.6); MONO % 7.8 % (1.0-6.0); PLATELET COUNT 118 10^3/uL (120.0-450.0); RED CELL DISTRIBUTION WIDTH 16.8 % (11.5-14.5); WHITE BLOOD COUNT 8.3 10^3/ul (4.5-11.0)
[2016-08-25 17:19] LABS: ALB/GLOB RATIO 1.2 (1.1-1.8); ALKALINE PHOSPHATASE 66 U/L (38-133); ALT/SGPT 80 U/L (7-56); AST/SGOT 37 U/L (15-59); BILIRUBIN,TOTAL 0.9 mg/dL (0.2-1.3); BLOOD UREA NITROGEN 15 mg/dL (7-21); CALCIUM 8.2 mg/dL (8.4-10.5); CARBON DIOXIDE 34 mmol/L (21-33); CHLORIDE 99 mmol/L (98-107); GFR AFRICAN-AMERICAN > 60; GLUCOSE,RANDOM 199 mg/dL (70-110); MAGNESIUM 1.6 mg/dL (1.7-2.2); POTASSIUM 3.3 mmol/L (3.6-5.0); SODIUM 137 mmol/L (132-148); TOTAL PROTEIN 5.2 g/dL (5.8-8.3)
[2016-08-25 17:21] LABS: INR 1.28 (0.93-1.08); PARTIAL THROMBOPLASTIN TIME 24.5 Seconds (23.7-30.8)
[2016-08-25 17:32] LABS: TROPONIN I 0.16 ng/mL
[2016-08-25 17:52] LABS: URINE APPEARANCE CLEAR (CLEAR); URINE BILIRUBIN NEGATIVE (NEGATIVE); URINE BLOOD TRACE-INTACT (NEGATIVE); URINE COLOR YELLOW (YELLOW); URINE GLUCOSE (UA) >=1000 mg/dL (NEGATIVE); URINE KETONE NEGATIVE (NEGATIVE); URINE LEUKOCYTE ESTERASE NEGATIVE Leu/uL (NEGATIVE); URINE PROTEIN 30 mg/dL (<30 mg/dL)
[2016-08-25 18:07] LABS: URINE BACTERIA TRACE (NEG); URINE EPITHELIAL CELLS 0 - 2 /hpf (0-5); URINE RBC 0 - 2 /hpf (0-2); URINE WBC NEGATIVE /hpf (0-6)
[2016-08-25] MEDS ORDERED: Enoxaparin 120 mg Syringe SC STA (18:39)
--- NOTE | 2016-08-25 19:07 | US ---
PROCEDURE: Bilateral lower extremity venous duplex Doppler. HISTORY: leg swelling COMPARISON: None available. TECHNIQUE: Bilateral common femoral, superficial femoral, popliteal and posterior tibial veins were evaluated. Flow was assessed with color Doppler, compressibility, assessment of phasic flow and augmentation response. FINDINGS: COMMON FEMORAL VEIN: Right CFV: There is an acute occlusive thrombus. Left CFV: Unremarkable. SUPERFICIAL FEMORAL VEIN: Right SFV: Unremarkable. Left SFV: Unremarkable. POPLITEAL VEIN: Right Popliteal: Unremarkable. Left Popliteal: Unremarkable. POSTERIOR TIBIAL VEIN: Right PTV: Not visualized. Left PTV: Unremarkable. OTHER FINDINGS: There is diffuse subcutaneous edema. IMPRESSION: 1. Acute occlusive thrombus in the right common femoral vein. 2. No evidence of left deep venous thrombosis.
[2016-08-25] MEDS ORDERED: Potassium Chloride 20 mEq ER Tab PO STA (19:14)
[2016-08-25] MEDS ORDERED: Magnesium Sulfate 2 GM in Sodium Chloride 0.9% 100 ML IVPB ONE (19:14)
--- NOTE | 2016-08-25 21:38 | CON ---
DATE: 08/25/2016 REASON FOR CONSULTATION: Status post recently AICD placed, complaining of pain at the AICD site. BRIEF CLINICAL HISTORY: A 56-year-old morbidly obese male with past medical history significant for atrial fibrillation, chronic, recently admitted after having trauma to the chest and AFib with rapid ventricular rate. The patient was later on sent to [facility] for radiofrequency ablation and AICD franky cement. The patient underwent AICD placement, complaining of pain at the pacemaker site, AICD, and a lso complained of swelling of the leg. He denies any chest pain except pain at the site of the pacem tom. PAST MEDICAL HISTORY: Significant for chronic atrial fibrillation, obesity, failed CORA cardioversion , history of catheterization, nonobstructive coronary artery disease. Previous cardiac workup as follows: The patient had a cardiac catheterization possibly 3 times on , last one, most recent, 11/06/1999 normal coronaries, ejection fraction 50%, EDP was in the ra nge of 30. Medical treatment recommended. The patient was recently sent to [facility] for ra diofrequency ablation and is status post AICD placed. SOCIAL HISTORY: Active tobacco abuse. CURRENT MEDICATIONS: The patient is taking at home trazodone, Coumadin 7.5, verapamil, potassium, Si ngulair, metformin, lisinopril, glyburide, digoxin. REVIEW OF SYSTEMS: As per HPI. PHYSICAL EXAMINATION: VITAL SIGNS: Temperature afebrile, heart rate 79, blood pressure 145/70. HEENT: PERRLA. Extraocular muscles intact. NECK: Supple. No carotid bruits. No thyromegaly. CHEST: Clear to auscultation. HEART: S1, S2 regular. ABDOMEN: Soft. EXTREMITIES: Clubbing and cyanosis negative. Both legs swelling. The patient is going for DVT stud y. LABORATORY DATA: Blood workup as follows: WBC 8.3, hemoglobin ____, hematocrit 38.1, platelet count 118. Chemistry shows sodium ____, potassium 3.3, chloride 90, carbon dioxide 34, anion gap of 7, BU N 15, creatinine 0.8. Troponin 0.16, possibly secondary to radiofrequency ablation. IMPRESSION: Positive troponin secondary radiofrequency ablation, history of atrial fibrillation, que stionable history of ablation and is status post automatic implantable cardioverter-defibrillator. T he patient is now in normal sinus. ____ pain at the automatic implantable cardioverter-defibrillator . RECOMMENDATION: Will get DVT prophylaxis. INR is subtherapeutic. Will give a dose of Lovenox. We will follow with you. The patient appears medically stable. We will follow with you. Thank you, Dr. Villagomez, for providing the opportunity in taking care of this patient. Tia Rajan MD cc: [id number] TT: 08/25/2016 21:37:32 Confirmation # [id number] Dictation # [id number] rn
[2016-08-26 04:49] VITALS: BMI 40.7
--- NOTE | 2016-08-26 10:09 | PN ---
DATE: 08/26/[address] Rajan. SUBJECTIVE: The patient is in bed, resting comfortably. His pain from his incision site is better. PHYSICAL EXAMINATION: VITAL SIGNS: The heart rate is in the 70s, fully paced rhythm, blood pressure is 126/77. NECK: Negative JVD. LUNGS: Without rales. HEART: Reveals S1, S2. EXTREMITIES: Decreased edema. LABORATORIES: Not done today. IMPRESSION: 1. Status post ablation. 2. Atrial fibrillation. 3. Dilated cardiomyopathy. 4. Pedal edema. 5. Right side congestive heart failure. PLAN: Given these findings, we will continue the patient on Lasix. The patient is hemodynamically s table. We will discontinue telemetry today. I have discussed the case with Dr. Villagomez. John Paul Rios MD cc: [id number] TT: 08/26/2016 10:08:48 Confirmation # [id number] Dictation # [id number]
--- NOTE | 2016-08-26 10:15 | CARD ---
APPROVED REPORT EKG Measurement Heart [id number] PA [id number] <Conclusion> 100% V. Paced rhythm
[2016-08-26] MEDS: Potassium Chloride 20 mEq ER Tab PO SCH ×2 (10:27→17:36)
[2016-08-26] MEDS: Magnesium Oxide 400 mg Tab UD PO SCH ×3 (10:27→17:37)
[2016-08-26] MEDS: Enoxaparin 100 mg Syringe SC SCH ×2 (10:28→21:55)
[2016-08-26 10:39] LABS: ADD MANUAL DIFF? NO
--- NOTE | 2016-08-26 10:40 | HP ---
CHIEF COMPLAINT AND HISTORY OF PRESENT ILLNESS: This is a 56-year-old male who is coming into the [facility] complaining of pain in the left side of his chest. He had AICD that was done earlier this gordon k. He says the pain is getting worse. He says he is not able to get pain medications for his pain. He says he has difficulty moving the left arm. The patient also says that there has been swelling i n the lower legs. He had a pacemaker placed because his atrial fibrillation was difficult to control . He denies any fevers. He feels weak. He has no nausea. He has no dysuria. He has no headaches. REVIEW OF SYSTEMS: All other review of symptoms are within normal limits except as mentioned. ALLERGIES: QUETIAPINE AND BERRIES. HOME MEDICATIONS: Lanoxin, Singulair, Levemir, lisinopril, Dulera. PAST MEDICAL HISTORY: 1. AICD/pacemaker 2. Atrial fibrillation. 3. Noncompliance. 4. Diabetic neuropathy. 5. Diabetes type 2. 6. Hypertension. 7. Chronic obstructive pulmonary disease. 8. Left leg ischemia status post thrombectomy. 9. Dyslipidemia. 10. Obesity with a CHF secondary to diastolic dysfunction. FAMILY HISTORY: Father of liver disease in his 60s. Mother at 52. SOCIAL HISTORY: The patient does not smoke or drink. The patient quit smoking 20 years ago. PHYSICAL EXAMINATION: VITAL SIGNS: Temperature is 98.3, pulse is 70, blood pressure is 126/77, respirations 19, O2 saturat ion 96%. Height is 5 feet 8 inches, weight is 261 pounds, BMI is 39.8. GENERAL: Patient lying in bed, flat, and in no apparent distress. HEAD AND NECK EXAM: Atraumatic, normocephalic. Conjunctivae are pink. Throat clear and mouth with moist mucosa. Oropharynx benign. EYES: Extraocular movements are intact. PERRLA. NECK: Supple. No JVD, thyromegaly, or adenopathy. No bruits. HEART: S1 and S2 regular rate and rhythm. No murmurs, rubs, or gallops. LUNGS: Clear to auscultation bilaterally. No wheezing rales or rhonchi appreciated. No retraction s on exam. ABDOMEN: Soft, nontender, nondistended. Bowel sounds are positive in all quadrants. No rebound. No hepatosplenomegaly. EXTREMITIES: Lower extremities 1+ edema. There are multiple ecchymotic areas on both arms. CHEST: Left chest there is a pacemaker/AICD. NEURO: No facial asymmetry, tongue is midline, no uvula deviation. Power is 5/5 in upper extremity and 5/5 in lower extremity. Sensation is normal in upper extremity and lower extremity. PSYCH: Awake, alert, oriented x3. No anxiety or depression symptoms. Good insight. Normal affec t. : No CVA tenderness VASCULAR: 2+ pulses in carotid and pedal pulses. SKIN: No erythema or abnormal nodules noted. SPINE: Normal curvature. LYMPHADENOPATHY: No anterior cervical or posterior cervical adenopathy. No inguinal adenopathy. LABORATORY DATA: White count of 8.3, hemoglobin 11.9, platelet count is 118. Chemistry shows sodium is 137, potassium is 3.3, creatinine 0.8. Troponin 0.16, magnesium is 1.6. Urine shows nitrites ar e negative, bilirubin is negative. Toxicology: Digoxin is less than 0.4. Chest x-ray done shows no infiltrates. Duplex Doppler showed acute occlusive thrombus in the right c ommon femoral vein. EKG shows a heart rate of 75 with paced rhythm, ____ ASSESSMENT: 1. Right deep venous thrombosis of common femoral vein. 2. Lower extremity edema. 3. Atrial fibrillation. 4. Status post automatic implantable cardioverter defibrillator placement/pacemaker. 5. Atrial fibrillation. 6. Diabetic neuropathy. 7. Diabetes type 2. 8. Hypertension. 9. History left leg ischemia status post thrombectomy. 10. Dyslipidemia. 11. Chronic obstructive pulmonary disease. 12. Congestive heart failure, secondary to systolic dysfunction. 13. Obese with a body mass index of 39. PLAN: The patient is going to be admitted to the hospital. He is on verapamil for his heart rate. He is on digoxin as well. He is going to be on Lasix twice a day. The patient is on Lipitor for dys lipidemia. He is on metoprolol. He is on Lovenox for his anticoagulation for his DVT and afib. His INR is subtherapeutic at 1.28. Axel Villagomez MD cc: [id number] TT: 08/26/2016 10:39:11 jn
[2016-08-26 10:42] LABS: BASO # 0.02 K/mm3 (0.0-2.0); BASO % 0.3 % (0.0-3.0); EOS # 0.1 (0.0-0.7); EOS % 1.3 % (1.5-5.0); GRAN # 5.31 (1.4-6.5); GRAN % 69.5 % (50.0-68.0); HEMATOCRIT 38.2 % (42.0-52.0); LYMPH # 1.6 (1.2-3.4); LYMPH % 20.6 % (22.0-35.0); MEAN CELL VOLUME 86.8 fL (80.0-105.0); MEAN CORPUSCULAR HEMOGLOBIN 27.5 pg (25.0-35.0); MEAN CORPUSCULAR HGB CONC 31.7 g/dl (31.0-37.0); MEAN PLATELET VOLUME 10.3 fl (7.0-11.0); MONO # 0.6 (0.1-0.6); MONO % 8.3 % (1.0-6.0); PLATELET COUNT 109 10^3/uL (120.0-450.0); RED CELL DISTRIBUTION WIDTH 16.7 % (11.5-14.5); WHITE BLOOD COUNT 7.6 10^3/ul (4.5-11.0)
[2016-08-26 10:52] LABS: INR 1.29 (0.93-1.08)
[2016-08-26 10:54] LABS: ALB/GLOB RATIO 1.1 (1.1-1.8); ALKALINE PHOSPHATASE 78 U/L (38-133); ALT/SGPT 74 U/L (7-56); AST/SGOT 32 U/L (15-59); BILIRUBIN,TOTAL 0.9 mg/dL (0.2-1.3); BLOOD UREA NITROGEN 14 mg/dL (7-21); CARBON DIOXIDE 33 mmol/L (21-33); CHLORIDE 98 mmol/L (98-107); GFR AFRICAN-AMERICAN > 60; GLUCOSE,RANDOM 184 mg/dL (70-110); MAGNESIUM 1.6 mg/dL (1.7-2.2); PHOSPHOROUS 2.8 mg/dL (2.5-4.5); POTASSIUM 3.1 mmol/L (3.6-5.0); SODIUM 136 mmol/L (132-148)
[2016-08-26] MEDS: Digoxin 125 mcg (0.125 mg) Tab PO SCH (14:35)
[2016-08-26] MEDS ORDERED: Potassium Chloride 20 mEq ER Tab PO STA (17:08)
[2016-08-26] MEDS: Oxycodone/Acetaminophen 10/325 mg Tab PO PRN ×2 (17:37→21:55)
[2016-08-26] MEDS: Insulin Lispro (humaLOG) MEDIUM Coverage SC SCH (21:31)
[2016-08-27] MEDS: Insulin Lispro (humaLOG) MEDIUM Coverage SC SCH ×4 (08:27→22:06)
[2016-08-27] MEDS: Enoxaparin 100 mg Syringe SC SCH ×2 (08:27→22:07)
[2016-08-27] MEDS: Potassium Chloride 20 mEq ER Tab PO SCH ×2 (09:34→17:13)
[2016-08-27] MEDS: Magnesium Oxide 400 mg Tab UD PO SCH ×3 (09:34→17:13)
[2016-08-27] MEDS: Oxycodone/Acetaminophen 10/325 mg Tab PO PRN ×2 (10:37→22:15)
--- NOTE | 2016-08-27 11:53 | PN ---
DATE: 08/27/2016 SUBJECTIVE: The patient is comfortable. He has no complaints of any headaches, no dizziness, no beatriz sea. PHYSICAL EXAMINATION: VITAL SIGNS: Temperature is 97.4, pulse of 70, blood pressure 122/84, respiration is 17. GENERAL: The patient comfortable, in no acute distress. HEENT: Anicteric sclerae. Moist mucosa. NECK: No JVD or adenopathy. CARDIAC: S1/S2. No murmurs. No rubs. Regular. RESPIRATORY: Clear to auscultation bilaterally. No wheezes, rales, or rhonchi. Good air entry. ABDOMEN: Bowel sounds are positive, soft, nontender, and nondistended. EXTREMITIES: No edema. Has 1+ pulses. LABORATORIES: White count of 7.6, hemoglobin 12.6. Potassium is 3.1. ASSESSMENT: 1. Right leg deep venous thrombosis, on anticoagulation. 2. Lower extremity edema. 3. Atrial fibrillation, on Coumadin. 4. Status post automatic implantable cardioverter defibrillator/pacemaker. 5. Diabetic neuropathy. 6. Diabetes type 2. 7. Hypertension. 8. History of left leg ischemia, status post thrombectomy. 9. Dyslipidemia. 10. Chronic obstructive pulmonary disease. 11. Congestive heart failure, secondary to systolic dysfunction. 12. Obesity with a body mass index of 39. PLAN: The patient is currently comfortable. He is on verapamil. The patient is going to be on Coum serjio for anticoagulation, is on potassium replacement, is on digoxin. The patient is going to contin ue with Lasix daily. He is on Lipitor for dyslipidemia. He is subtherapeutic in his INR. We will g et his INR done tomorrow. He has difficult IV access, so I am not sure if Coumadin is the best optio n for him. The patient is on magnesium, is on Tylenol. I will see if he can get some of the newer n ovel anticoagulation treatments. I will get Dr. Drake to evaluate for the deep venous thrombosis. Axel Villagomez MD cc: [id number] TT: 08/27/2016 11:52:16 Confirmation # [id number] Dictation # [id number]
[2016-08-27 11:58] LABS: INR 1.53 (0.93-1.08)
[2016-08-27] MEDS: Digoxin 125 mcg (0.125 mg) Tab PO SCH (13:59)
[2016-08-28] MEDS: Insulin Lispro (humaLOG) MEDIUM Coverage SC SCH ×2 (08:38→12:30)
[2016-08-28 09:33] VITALS: RESP 18; TEMP 97.9; O2SAT 96
[2016-08-28] MEDS: Magnesium Oxide 400 mg Tab UD PO SCH ×2 (09:44→13:37)
[2016-08-28] MEDS: Potassium Chloride 20 mEq ER Tab PO SCH (09:45)
[2016-08-28] MEDS: Enoxaparin 100 mg Syringe SC SCH (09:45)
[2016-08-28 12:48] LABS: INR 2.03 (0.93-1.08)
[2016-08-28] MEDS: Digoxin 125 mcg (0.125 mg) Tab PO SCH (13:37)
[2016-08-28 13:38] VITALS: BP 105/68; PULSE 70
--- NOTE | 2016-08-28 21:06 | PN ---
DATE: 08/28/2016 The patient initially came to the hospital because he was having pain in the left side of his chest a fter he had his procedure done for his AICD/pacemaker. He has no complaints of any headaches. He sa ys he does continue to have chest pain at times, mostly with movement. He says that pain medication does help. He has no complaints of any headaches or dizziness, no nausea, no vomiting. The patient is not having any shortness of breath. PHYSICAL EXAMINATION: VITAL SIGNS: Temperature is 97.5, pulse of 70, blood pressure 109/69, respirations 19. GENERAL: The patient comfortable, in no acute distress. HEENT: Anicteric sclerae. Moist mucosa. NECK: No JVD or adenopathy. CARDIAC: S1/S2. No murmurs. No rubs. Regular. RESPIRATORY: Clear to auscultation bilaterally. No wheezes, rales, or rhonchi. Good air entry. ABDOMEN: Bowel sounds are positive, soft, nontender, and nondistended. EXTREMITIES: Right lower extremity trace edema. Has 1+ pulses. ASSESSMENT: 1. Atrial fibrillation, on anticoagulation. 2. Right leg deep venous thrombosis, on anticoagulation. 3. Lower extremity edema, improved. 4. Status post automatic implantable cardioverter-defibrillator/pacemaker. 5. Diabetic neuropathy. 6. Diabetes type 2. 7. Hypertension. 8. History of leg ischemia status post thrombectomy. 9. Dyslipidemia. 10. Chronic obstructive pulmonary disease. 11. Congestive heart failure, secondary to systolic dysfunction, stable. 12. Obesity with a body mass index of 39. PLAN: The patient is currently on Ativan, this will be continued. He is going to be on verapamil fo r atrial fibrillation. The patient is on Coumadin. The patient's INR is ordered for this morning. The patient is on digoxin and is on Lasix. I will discontinue the patient's Lasix as the patient's b lood pressure is on the lower side. The patient is on magnesium replacement. He is on Lovenox for a nticoagulation. He is also on metoprolol. He is on a heart healthy diet. He is on 7.5 mg of his Co umadin. Axel Villagomez MD cc: [id number] TT: 08/28/2016 21:05:21 Confirmation # [id number] Dictation # [id number] rn
--- NOTE | 2016-10-10 08:25 | DS ---
HISTORY OF PRESENT ILLNESS: This is a 56-year-old male who had come into the hospital for atrial fibrillation. He had right leg DVT *------*anticoagulation. He had lower extremity edema that was treated. Please see note that was dictated on 08/28/2016 for further details. This patient was discharged to home. Axel Villagomez MD
== END 2016-08-28 15:48 | disposition home or self-care (01) | DRG 300 ==
LOC: ED 15:03 → ERH 19:08 → 2RSO 08-26 03:37 → 3RSO 08-26 18:41
PROVIDERS: ADMIT Internal Medicine Nephrology; ATTEND Internal Medicine Nephrology
DX: I82.411 Acute embolism and thrombosis of right femoral vein (principal); I50.42 Chronic combined systolic (congestive) and diastolic (congestive) heart failure; I42.0 Dilated cardiomyopathy; I11.0 Hypertensive heart disease with heart failure; E11.40 Type 2 diabetes mellitus with diabetic neuropathy, unspecified; E66.01 Morbid (severe) obesity due to excess calories; I25.10 Atherosclerotic heart disease of native coronary artery without angina pectoris; K21.9 Gastro-esophageal reflux disease without esophagitis; I48.2 Chronic atrial fibrillation; E78.5 Hyperlipidemia, unspecified; J44.9 Chronic obstructive pulmonary disease, unspecified; Z79.01 Long term (current) use of anticoagulants; Z68.39 Body mass index [BMI] 39.0-39.9, adult; Z91.19 Patient's noncompliance with other medical treatment and regimen; Z95.810 Presence of automatic (implantable) cardiac defibrillator; Z98.84 Bariatric surgery status

== ENCOUNTER 2016-09-14 16:18 | Emergency (ER) | payer MEDICARE, OTHER ==
[2016-09-14 16:19] VITALS: PULSE 70
[2016-09-14 16:50] VITALS: PULSE 74; RESP 16; TEMP 98.6; O2SAT 98; BMI 39.5
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
[2016-09-14 18:24] LABS: ADD MANUAL DIFF? NO
[2016-09-14 18:39] LABS: INR 2.06 (0.93-1.08); PARTIAL THROMBOPLASTIN TIME 29.2 Seconds (23.7-30.8)
[2016-09-14 18:41] LABS: BASO # 0.05 K/mm3 (0.0-2.0); BASO % 0.7 % (0.0-3.0); EOS # 0.2 (0.0-0.7); EOS % 2.2 % (1.5-5.0); GRAN # 4.31 (1.4-6.5); GRAN % 63.7 % (50.0-68.0); LYMPH # 1.7 (1.2-3.4); LYMPH % 24.5 % (22.0-35.0); MEAN CELL VOLUME 86.7 fL (80.0-105.0); MEAN CORPUSCULAR HEMOGLOBIN 27.4 pg (25.0-35.0); MEAN CORPUSCULAR HGB CONC 31.6 g/dl (31.0-37.0); MEAN PLATELET VOLUME 10.2 fl (7.0-11.0); MONO # 0.6 (0.1-0.6); MONO % 8.9 % (1.0-6.0); PLATELET COUNT 175 10^3/uL (120.0-450.0); RED CELL DISTRIBUTION WIDTH 16.5 % (11.5-14.5); WHITE BLOOD COUNT 6.8 10^3/ul (4.5-11.0)
[2016-09-14 19:13] LABS: ALB/GLOB RATIO 1.1 (1.1-1.8); ALKALINE PHOSPHATASE 79 U/L (38-133); ALT/SGPT 26 U/L (7-56); AST/SGOT 24 U/L (15-59); BILIRUBIN,TOTAL 0.6 mg/dL (0.2-1.3); BLOOD UREA NITROGEN 18 mg/dL (7-21); CALCIUM 8.4 mg/dL (8.4-10.5); CARBON DIOXIDE 28 mmol/L (21-33); CHLORIDE 102 mmol/L (98-107); GFR AFRICAN-AMERICAN > 60; GLUCOSE,RANDOM 191 mg/dL (70-110); POTASSIUM 3.9 mmol/L (3.6-5.0); SODIUM 137 mmol/L (132-148); TOTAL PROTEIN 6.1 g/dL (5.8-8.3)
--- NOTE | 2016-09-14 19:17 | US ---
HISTORY: Leg pain and swelling. Evaluate for DVT PHYSICIAN(S): John Paul Cannon MD. TECHNIQUE: Duplex sonography and color-flow Doppler with graded compression were used to evaluate the deep venous systems of both lower extremities. The exam is limited by edema. FINDINGS: The visualized deep venous systems of both lower extremities are sonographically normal and compressible. Normal wave forms and augmentation are seen. There is no sonographic evidence for deep venous thrombosis in the visualized segments of both lower extremities. IMPRESSION: No sonographic evidence for deep venous thrombosis in the visualized segments of both lower extremities.
[2016-09-14 19:26] LABS: TROPONIN I 0.05 ng/mL
[2016-09-14 21:07] VITALS: BP 118/92
--- NOTE | 2016-09-15 09:40 | RAD ---
HISTORY: LE edema COMPARISON: 08/25/2016 TECHNIQUE: Chest PA and lateral FINDINGS: LUNGS: No active pulmonary disease. PLEURA: No significant pleural effusion identified. No pneumothorax apparent. CARDIOVASCULAR: Mild cardiomegaly. Mild vascular congestion OSSEOUS STRUCTURES: No significant abnormalities. VISUALIZED UPPER ABDOMEN: Normal. OTHER FINDINGS: Dual lead pacemaker IMPRESSION: Mild cardiomegaly and mild vascular congestion
--- NOTE | 2016-09-15 11:27 | CARD ---
APPROVED REPORT EKG Measurement Heart [id number] <Conclusion> Electronic atrial pacemaker Indeterminate axis Possible Right ventricular hypertrophy Anteroseptal infarct, possibly acute Inferolateral injury pattern ACUTE ND Abnormal ECG
== END 2016-09-14 22:33 | disposition home or self-care (01) ==
LOC: ED 16:18
DX: I11.0 Hypertensive heart disease with heart failure (principal); I50.9 Heart failure, unspecified; L08.9 Local infection of the skin and subcutaneous tissue, unspecified; Z86.718 Personal history of other venous thrombosis and embolism; Z95.810 Presence of automatic (implantable) cardiac defibrillator; Z79.01 Long term (current) use of anticoagulants; Z87.891 Personal history of nicotine dependence
CPT/HCPCS: 71020; 80053; 82550; 83615; 83880; 84484; 85025; 85610; 85730; 93005; 93970; 96374; 99281; J1940

== ENCOUNTER 2016-10-02 17:16 | Inpatient (IN) | payer MEDICARE, OTHER ==
[2016-10-02 17:31] VITALS: BMI 41.8
[2016-10-02] MEDS ORDERED: Albuterol-Ipratrop 3 mg / 0.5 (3 ml) UD IH STA (17:46)
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
[2016-10-02 18:04] LABS: ARTERIAL BLOOD GAS HCO3 28.5 mmol/L (21-28); ARTERIAL BLOOD GAS HEMOGLOBIN 13.2 g/dL (11.7-17.4); ARTERIAL BLOOD GAS O2 CONTENT 15.4 ML/dl (15-23); ARTERIAL BLOOD GAS O2 SAT 85.5 % (95-98); ARTERIAL BLOOD GAS PCO2 47 mm/Hg (35-45); ARTERIAL BLOOD GAS PH 7.39 (7.35-7.45); ARTERIAL BLOOD GAS TCO2 29.9 mmol.L (22-28)
[2016-10-02 18:21] LABS: VENOUS BLOOD GAS PO2 93 mm/Hg (30-55)
[2016-10-02 18:31] LABS: BASO # 0.06 K/mm3 (0.0-2.0); BASO % 0.6 % (0.0-3.0); EOS # 0.2 (0.0-0.7); EOS % 1.8 % (1.5-5.0); GRAN # 7.62 (1.4-6.5); GRAN % 74.7 % (50.0-68.0); HEMOGLOBIN 12.8 gm/dL (14.0-18.0); LYMPH # 1.8 (1.2-3.4); LYMPH % 17.8 % (22.0-35.0); MEAN CELL VOLUME 85.2 fL (80.0-105.0); MEAN CORPUSCULAR HEMOGLOBIN 27.8 pg (25.0-35.0); MEAN CORPUSCULAR HGB CONC 32.7 g/dl (31.0-37.0); MEAN PLATELET VOLUME 11.3 fl (7.0-11.0); MONO # 0.5 (0.1-0.6); MONO % 5.1 % (1.0-6.0); PLATELET COUNT 160 10^3/uL (120.0-450.0); RED CELL DISTRIBUTION WIDTH 15.9 % (11.5-14.5); WHITE BLOOD COUNT 10.2 10^3/ul (4.5-11.0)
[2016-10-02 18:34] LABS: ALB/GLOB RATIO 1.3 (1.1-1.8); ALBUMIN 3.7 g/dL (3.0-4.8); ALT/SGPT 27 U/L (7-56); AST/SGOT 21 U/L (15-59); BLOOD UREA NITROGEN 15 mg/dL (7-21); CALCIUM 9.6 mg/dL (8.4-10.5); GFR AFRICAN-AMERICAN > 60; GFR NON-AFRICAN AMERICAN > 60
[2016-10-02 18:41] LABS: INR 2.44 (0.93-1.08); PARTIAL THROMBOPLASTIN TIME 31.7 Seconds (23.7-30.8); PROTHROMBIN TIME 26.3 Seconds (9.9-11.8)
[2016-10-02 19:04] LABS: B-TYPE NATRIURETIC PEPTIDE 5080 pg/mL (0-450); TROPONIN I 0.03 ng/mL
[2016-10-02] MEDS ORDERED: cefTRIAXone 1 gm 1 GM/100 ML BAG IVPB STA (19:11)
[2016-10-02 20:51] LABS: URINE BILIRUBIN NEGATIVE (NEGATIVE); URINE BLOOD NEGATIVE (NEGATIVE); URINE GLUCOSE (UA) 100 mg/dL (NEGATIVE); URINE LEUKOCYTE ESTERASE NEGATIVE Leu/uL (NEGATIVE); URINE NITRATE NEGATIVE (NEGATIVE); URINE PROTEIN TRACE mg/dL (<30 mg/dL); URINE UROBILINOGEN 0.2 E.U./dL (<1 E.U./dL)
[2016-10-02 20:52] LABS: URINE APPEARANCE CLEAR (CLEAR); URINE COLOR YELLOW (YELLOW)
[2016-10-02 20:55] LABS: URINE RBC NEGATIVE /hpf (0-2); URINE WBC NEGATIVE /hpf (0-6)
--- NOTE | 2016-10-03 08:42 | RAD ---
HISTORY: sob COMPARISON: 09/14/2016 FINDINGS: LUNGS: No active pulmonary disease. PLEURA: No significant pleural effusion identified, no pneumothorax apparent. CARDIOVASCULAR: Moderate cardiomegaly OSSEOUS STRUCTURES: No significant abnormalities. VISUALIZED UPPER ABDOMEN: Normal. OTHER FINDINGS: Dual lead pacemaker IMPRESSION: No active disease.
[2016-10-03] MEDS: Insulin Reg-MEDIUM-Coverage SC SCH ×5 (08:45→22:10)
[2016-10-03] MEDS: MethylPREDNISolone 40 mg Vial IVP SCH (09:15)
[2016-10-03] MEDS: Albuterol-Ipratrop 3 mg / 0.5 (3 ml) UD IH SCH ×3 (11:17→20:35)
[2016-10-03] MEDS: Digoxin 125 mcg (0.125 mg) Tab PO SCH (14:03)
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
[2016-10-03] MEDS: MOMETASONE IH SCH (17:41)
[2016-10-03] MEDS: FORMOTEROL IH SCH (17:41)
--- NOTE | 2016-10-03 18:08 | HP ---
HISTORY OF PRESENT ILLNESS: This is a 56-year-old male who is coming into the hospital with complaints of shortness of breath. The patient says that he has been getting more short of breath over the past dew days, difficulty in ambulating because of his shortness of breath. He denies any chest pain. He says he does have some chest tightness. He says he has been taking his medications. He has no fevers or chills. No nausea or vomiting. No abdominal pain. He says he was having lower extremity swelling. He was complaining of his left leg becoming red. He has no dysuria, frequency, no nocturia. He had a pacemaker placed few months ago. All of the review of systems are within normal limits. He has allergies to clotiapine and berries. His home medications is digoxin, Singulair, Levemir, Zestril, Dulera, trazodone. PAST MEDICAL HISTORY: Diabetes type 2, diabetic neuropathy, atrial fibrillation, AICD/pacemaker noncompliance, hypertension, COPD, left leg ischemia status post thrombectomy, dyslipidemia, obesity, CHF secondary to systolic dysfunction, pleural effusion. FAMILY HISTORY: Father of liver disease in the 60s. Mother at 52. SOCIAL HISTORY: The patient does not smoke or drink. The patient quit smoking about 20 years. PHYSICAL EXAMINATION GENERAL: The patient is lying in bed comfortable. No apparent distress. VITAL SIGNS: Temperature is 97.8, pulse is 70, blood pressure is 101/69, respirations 20, O2 saturation 97%. Height is 5 feet 8 inches. Weight 265 pounds. BMI is 40.3. HEENT: Atraumatic and normocephalic. [place] conjunctivae. Throat is clear. No ulcers. Eyes, EOMI and PERRLA. NECK: Supple. No JVD, thyromegaly, bruits. CHEST: There is pacemaker/AICD. HEART: S1 and S2 are regular. No murmurs, rubs or gallops. LUNGS: Clear to auscultation bilaterally. No wheezes or rales. ABDOMEN: Bowel sounds are soft, nontender, nondistended. No hepatosplenomegaly. EXTREMITIES: Lower extremity is 1+ edema. NEUROLOGIC: No fascial asymmetry x midline. No uvula deviation. Power is 5/5 upper extremity and lower extremity. PSYCHIATRIC: Alert, awake, oriented x 3. Good insight. Normal affect. No anxiety. GENITOURINARY: No CVA tenderness. VASCULAR: 2+ pulses. There is 1+ edema in his lower leg. SKIN: Left leg erythema. SPINE: Normal curvature, lymphadenopathy, no anterior or posterior cervical adenopathy. LABORATORY DATA: Chest x-ray done, shows no active disease. EKG shows heart rate of 72, sinus rhythm. ASSESSMENT: 1. Left leg cellulitis. 2. Acute chronic obstructive pulmonary disease exacerbation. 3. Atrial fibrillation on anticoagulation. 4. Diabetic neuropathy. 5. Diabetes type 2. 6. Hypertension. 7. Dyslipidemia. 8. Congestive heart failure secondary to systolic dysfunction. 9. Obese with a BMI of 40. PLAN: The patient was going to be admitted to the hospital. She is going to continue the Amaryl for his diabetes. He is on Ativan. The patient is going to be on Coumadin. I will discontinue the patient's telemetry. He is on Lasix. His lower extremity edema has improved. He is going to be on nebulizer treatment. I will place him on steroids. He is going to be on Lipitor for dyslipidemia. He is on lisinopril for his hypertension. He is on a heart healthy diet. He has dry cough. Axel Villagomez MD cc:
--- NOTE | 2016-10-04 00:08 | CARD ---
APPROVED REPORT EKG Measurement Heart [id number] <Conclusion> Atrial sensed, Biventricular paced rhythm
--- NOTE | 2016-10-04 06:18 | CON ---
DATE: 10/03/2016 HISTORY OF PRESENT ILLNESS: This is a 56-year-old gentleman with known history of obstructive lung disease, obstructive sleep apnea syndrome, cardiomyopathy, atrial fibrillation, status post ablation therapy, has AICD, morbid obesity, hypertension, history of thromboembolic disease requiring thrombectomy, reactive pleural effusion, comes into ER with shortness of breath, chest tightness, responding well to bronchodilator, diuretics. Presently, sitting up in the chair and feels better, admit to have load snoring, daytime sleepy, and tired. In the past, he has sleep study done, but did not follow up. Last study was about 3 to 4 years ago. No hemoptysis, no masses, no hematuria. PAST MEDICAL HISTORY: Chronic obstructive lung disease, cardiomyopathy, pulmonary hypertension, atrial fibrillation status post ablation therapy, has an AICD, obstructive sleep apnea syndrome, morbid obesity, hypertension, history of thromboembolic disease requiring thrombectomy of the left lower extremity. FAMILY HISTORY: Not significant cardiopulmonary disease reported. SOCIAL HISTORY: Presently, there is no smoking or alcohol use. ALLERGIES: HE IS ALLERGIC TO SEROQUEL AND ALSO ALLERGIC TO WILD BERRIES. REVIEW OF SYSTEMS: No headaches, has some rhinitis, cough, and shortness of breath. Presently, no chest pain. No nausea and no vomiting. No diarrhea and no dysuria. Does have some leg swelling. Admit to have load snoring and daytime sleepy and tired. PHYSICAL EXAMINATION: GENERAL: Lying in the recliner. VITAL SIGNS: Temperature is 98, heart rate is 69, respiratory rate is 20, blood pressure 102/72, pulse ox 97% on nasal cannula. HEENT: Moist mucous membrane. Crowded airways. Mallampati score is 4. NECK: Short thick neck. LUNGS: Decreased breath sounds at the bases. HEART: S1 and S2. Left side of the chest has an AICD percutaneous. ABDOMEN: Soft and nontender. No organomegaly. EXTREMITIES: Has trace edema. NEUROLOGIC: Awake and alert. Follows simple commands. LABORATORY DATA: Laboratory data shows hemoglobin 12.8, hematocrit 39.2, WBC 10.2, platelet is 160. INR 2.4, PTT is 32. ABG shows pH 7.39, pCO2 of 47, pO2 of 93. Sodium 138, potassium 3.9, chloride 101, bicarbonate 26, BUN 15, creatinine 0.6, glucose 222, calcium 9.6. AST 21, ALT 27. Troponin 0.03. ProBNP 5080. Albumin 3.7. Urinalysis shows trace protein and glucose otherwise unremarkable. Microbiology: Blood culture since yesterday, there is no growth. Chest x-ray on admission shows no active disease. MEDICATIONS: The patient is on Aldactone 25 mg twice a day, Amaryl 4 mg daily, Ativan 2 mg twice a day, Bactroban to the affected area twice a day, Calan 80 mg three times a day, Coumadin 7.5 mg given tonight, trazodone 100 mg h.s., q. 8 hours, insulin coverage, digoxin 0.125 mg daily, Lasix 20 mg twice a day, Lipitor 40 mg daily, metoprolol tartrate 50 mg twice a day, Dulera two puffs daily, Singulair 10 mg daily, Solu-Medrol 40 mg IV daily, Zestril 20 mg daily. IMPRESSION AND PLAN: Exacerbation of chronic obstructive lung disease, cardiomyopathy with a heart failure, sleep apnea syndrome, atrial fibrillation, history of ablation therapy, has automatic implantable cardioverter defibrillator, diabetes, hypertension, hyperlipidemia, history of atheroembolic disease requiring thrombectomy, has peripheral vascular disease, with some peripheral neuropathy. I agree with Dr. Villagomez with the present management. Continue IV and inhaled bronchodilator. Continue anticoagulation. Keep head elevated 45 degree, sleep apnea precaution. Followup labs in the morning. I had a long discussion with the patient about sleep apnea and its consequences especially related to AFM cardiomyopathy. He is agreed to have attended sleep study as outpatient upon discharge. We will try to get him CPAP as well as BiPAP to stabilize his heart failure. Thank you and we will follow with you. Tia Godinez MD
[2016-10-04 07:17] LABS: BASO # 0.01 K/mm3 (0.0-2.0); BASO % 0.1 % (0.0-3.0); GRAN # 9.63 (1.4-6.5); GRAN % 86.7 % (50.0-68.0); HEMOGLOBIN 12.5 gm/dL (14.0-18.0); LYMPH # 0.9 (1.2-3.4); LYMPH % 7.9 % (22.0-35.0); MEAN CELL VOLUME 83.8 fL (80.0-105.0); MEAN CORPUSCULAR HGB CONC 32.2 g/dl (31.0-37.0); MONO # 0.6 (0.1-0.6); MONO % 5.3 % (1.0-6.0); PLATELET COUNT 166 10^3/uL (120.0-450.0); RBC 4.63 10^6/uL (3.5-6.1); RED CELL DISTRIBUTION WIDTH 15.6 % (11.5-14.5); WHITE BLOOD COUNT 11.1 10^3/ul (4.5-11.0)
[2016-10-04 07:34] LABS: ALB/GLOB RATIO 1.3 (1.1-1.8); ALBUMIN 3.4 g/dL (3.0-4.8); ALT/SGPT 24 U/L (7-56); AST/SGOT 17 U/L (15-59); BLOOD UREA NITROGEN 19 mg/dL (7-21); CALCIUM 8.9 mg/dL (8.4-10.5); GFR AFRICAN-AMERICAN > 60; GFR NON-AFRICAN AMERICAN > 60; HDL CHOLESTEROL 26 mg/dL (29-60); MAGNESIUM 1.3 mg/dL (1.7-2.2)
[2016-10-04] MEDS: Albuterol-Ipratrop 3 mg / 0.5 (3 ml) UD IH SCH ×3 (07:42→19:58)
[2016-10-04 07:44] LABS: LDL CHOLESTEROL 75 mg/dL (0-129)
[2016-10-04] MEDS ORDERED: Magnesium Sulfate 2 GM in Sodium Chloride 0.9% 100 ML IVPB ONE ×2 (08:08→17:00)
[2016-10-04] MEDS: Insulin Reg-MEDIUM-Coverage SC SCH ×4 (08:25→21:49)
--- NOTE | 2016-10-04 08:25 | CON ---
DATE: 10/03/2016 REASON FOR CONSULTATION: Cardiac evaluation, admitted with shortness of breath, swelling of the leg, history of paroxysmal atrial fibrillation status post radiofrequency ablation, status post AICD, nonischemic cardiomyopathy. BRIEF CLINICAL HISTORY: This is a 56-year-old male, status post cardiac catheterization two or three times and nonobstructive coronary artery disease, nonischemic cardiomyopathy, atrial fibrillation, status post radiofrequency ablation, status post AICD placement, admitted with decompensated congestive heart failure, swellings of the leg and shortness of breath. Denies any chest pain, denies any palpitations, but complains of shortness of breath and dyspnea on exertion. PAST MEDICAL HISTORY: Significant for chronic atrial fibrillation, *------*, cardioversion, history of cardiac catheterization, nonischemic coronary artery disease, status post radiofrequency ablation and he has to be placed in [facility] approximately 4 weeks ago. Previous cardiac workup, the patient had a cardiac catheterization three times at least most recently on 11/05/2014, that showed normal coronaries, preserved LV function, ejection fraction of 50%, EDP in the range of 30. Medical treatment recommended. The patient is recently seen at [facility] and had a radiofrequency ablation and status post AICD. History of paroxysmal atrial fibrillation in the past. SOCIAL HISTORY: Active tobacco abuse and active alcohol abuse. CURRENT MEDICATIONS: The patient is taking; 1. Trazodone. 2. Coumadin. 3. Verapamil. 4. Potassium chloride. 5. Singulair. 6. Metoprolol tartrate. 7. Metformin. 8. Lisinopril. 9. Lorazepam. 10. Glimepiride. 11. Lasix. 12. Digoxin. 13. Atorvastatin. 14. Albuterol. REVIEW OF SYSTEMS: As per HPI. PHYSICAL EXAMINATION: As follows, VITAL SIGNS: Height of the patient is 5 feet 8 inches, weight of the patient is 265 pounds, body mass index of 42 kg/m2. Temperature afebrile, heart rate is 78, blood pressure 129/86. HEENT: PERRLA. Extraocular muscles intact. NECK: Supple. No carotid bruits or thyromegaly. CHEST: Clear to auscultation. HEART: S1 and S2, regular. ABDOMEN: Soft. EXTREMITIES: Clubbing and cyanosis, negative. LABORATORY DATA: WBC is 10.2, hemoglobin 12.8, hematocrit 39.2, platelet count 160. Chemistry shows sodium 130, potassium 3.9, chloride 101, carbon dioxide 26, anion gap of 15, BUN 15, creatinine 0.6. BNP 5080. IMPRESSION: Decompensated congestive heart failure, acute on chronic secondary to systolic dysfunction. Status post cardiac catheterization and normal coronaries. ASSESSMENT: This is a 56-year-old male with a past medical history significant for nonischemic cardiomyopathy, status post cardiac catheterization, twice, nonobstructive coronary artery disease, history of paroxysmal atrial fibrillation, *------* cardioversion status post radiofrequency ablation and implantable cardioverter-defibrillator placed because of decreased left ventricular function, not on anticoagulation, admitted with decompensated congestive heart failure. He will continue digoxin, continue diuretics, continue anticoagulation. Goal is to keep INR between 2 to 2.5, follow up telemetry if remains in sinus rhythm for three months, consider discontinue of anticoagulation but if the history of paroxysmal atrial fibrillation, is to continue anticoagulation, continue diuretics, continue digoxin. We will reassess LV function if not done in the last 3 to 6 months by MUGA, we will follow with you. Last echo, the patient had on 06/10/2015, ejection fraction 45%, moderate mitral regurgitation, and moderate tricuspid regurgitation. Right ventricular systolic pressure 20. The patient has radiofrequency ablation and in sinus, so we will re-asses LV function. Last MUGA scan is completed as noted 04/18/2016, that shows the calculated ejection fraction of 30%. We will repeat the MUGA scan and echocardiogram. In the interim, continue diuretics, continue digoxin, continue SID inhibitors, continue Verapamil to control the heart rate, and continue metoprolol in anticipation to keep in normal sinus. We will increase the Lasix to 40 b.i.d. Thank you *------* for taking care of Pete Johnson and I will continue diuretics as well. We will follow with you. Tia Rajan MD
[2016-10-04] MEDS: MethylPREDNISolone 40 mg Vial IVP SCH (09:29)
[2016-10-04] MEDS: Magnesium Oxide 400 mg Tab UD PO SCH ×2 (09:31→17:21)
[2016-10-04 09:33] VITALS: RESP 20; O2SAT 94
--- NOTE | 2016-10-04 10:53 | PN ---
DATE: 10/04/2016 SUBJECTIVE: The patient has no complaints. No chest pain. No headaches. No dizziness. PHYSICAL EXAMINATION: VITAL SIGNS: Temperature is 96.6, pulse of 69, blood pressure is 127/90, and respirations are 18. HEENT: Anicteric sclerae. Moist mucosa. NECK: No JVD, adenopathy, or thyromegaly. CARDIOVASCULAR: S1 and S2 is regular. No murmurs. LUNGS: Good bilateral air entry. No wheezes, rales, or rhonchi. ABDOMEN: Bowel sounds are positive, soft, and nontender. EXTREMITIES: Lower extremity has 1+ edema; full range of motion. There is a left leg erythema. LABORATORY DATA: Reviewed. ASSESSMENT: 1. Left leg cellulitis. 2. Acute chronic obstructive pulmonary disease exacerbation. 3. Atrial fibrillation, on anticoagulation. 4. Congestive heart failure secondary to systolic dysfunction. 5. Diabetic neuropathy. 6. Diabetes type II. 7. Hypertension. 8. Dyslipidemia. 9. Obesity with body mass index of 40. PLAN: The patient is currently comfortable. He is on Aldactone. He is going to continue with Amaryl for his diabetes. The patient is receiving Coumadin. He is on this for his atrial fibrillation. He is on Lipitor for dyslipidemia. He is on Lasix twice a day. The patient is on Singulair. He is going to continue steroids and nebulizer treatments. He is on insulin coverage. An echo has been ordered. Axel Villagomez MD
[2016-10-04] MEDS: FORMOTEROL IH SCH (12:17)
[2016-10-04] MEDS: MOMETASONE IH SCH (12:17)
[2016-10-04] MEDS: Digoxin 125 mcg (0.125 mg) Tab PO SCH (14:34)
[2016-10-04 14:36] VITALS: PULSE 69
[2016-10-04] MEDS ORDERED: MethylPREDNISolone 40 mg Vial IVP SCH (14:51)
[2016-10-04] MEDS ORDERED: metOLazone 5 MG TAB PO ONE (16:00)
--- NOTE | 2016-10-04 16:30 | CARD ---
APPROVED REPORT EXAM: Two-dimensional and M-mode echocardiogram with Doppler and color Doppler. INDICATION Cardiomyopathy Congestive Heart Failure 2D DIMENSIONS Left Atrium (2D)5.4 (1.6-4.0cm)IVSd1.5 (0.7-1.1cm) LVDd5.5 (3.9-5.9cm)PWd1.4 (0.7-1.1cm) LVDs4.6 (2.5-4.0cm)FS (%) 16.3 % LVEF (%)33.7 (>50%) M-Mode DIMENSIONS Aortic Root3.10 (2.2-3.7cm)Aortic Cusp Exc.1.80 (1.5-2.0cm) Aortic Valve AoV Peak Bfsbyhzv90.9cm/Susan Peak GR.3mmHg Mitral Valve MV E Xhuyobtb64.8cm/sMV A Btrptsdn46.6cm/sE/A ratio2.8 TDI Lateral E' Peak V5.46cm/sMedial E' Peak V3.61cm/sE/Lateral E'17.0 E/Medial E'25.7 Pulmonary Valve PV Peak Hbocfijk01.4cm/sPV Peak Grad.1mmHg Tricuspid Valve TR Peak [id number]/sRAP [id number] Peak Gr.34mmHg [id number] LEFT VENTRICLE The left ventricle is normal size. There is mild to moderate concentric left ventricular hypertrophy. The systolic function is moderately impaired.EF-35% There is moderate global hypokinesis of the left ventricle. Transmitral Doppler flow pattern is Grade II-pseudonormal filling dynamics. No left ventricle thrombus noted on this study. There is no ventricular septal defect visualized. There is no left ventricular aneurysm. There is no mass noted in the left ventricle. RIGHT VENTRICLE The right ventricle is mildly to moderately dilated. There is normal right ventricular wall thickness. Systolic function is mildly to moderately reduced. There is a pacemaker lead in the right ventricle. ATRIA The left atrium is moderately dilated. The right atrium is mildly dilated. There is a catheter/pacemaker lead seen in the right atrium. The interatrial septum is intact with no evidence for an atrial septal defect. AORTIC VALVE The aortic valve is thickened but opens well. No aortic regurgitation is present. There is no aortic valvular stenosis. There is no aortic valvular vegetation. MITRAL VALVE The mitral valve is thickened but opens well. Mitral regurgitation is trace to mild. There is no mitral valve stenosis. There is no evidence of mitral valve prolapse. TRICUSPID VALVE The tricuspid valve leaflets are thickened or calcified, but open well. There is mild tricuspid regurgitation.RVSP-44 mmof Hg. There is no tricuspid valve stenosis. There is no tricuspid valve prolapse or vegetation. PULMONIC VALVE The pulmonary valve is normal in structure. There is trace pulmonic valvular regurgitation. There is no pulmonic valvular stenosis. GREAT VESSELS The aortic root is normal in size. The aortic root is normal in size. The ascending aorta is normal in size. The pulmonary artery is normal. The IVC is dilated. PERICARDIAL EFFUSION There is no pleural effusion. There is a trace pericardial effusion. <Conclusion> The left ventricle is normal size. There is mild to moderate concentric left ventricular hypertrophy. The systolic function is moderately impaired.EF-35% There is moderate global hypokinesis of the left ventricle. No aortic regurgitation is present. Mitral regurgitation is trace to mild. There is mild tricuspid regurgitation.RVSP-44 mmof Hg. The IVC is dilated. There is a trace pericardial effusion. There is a pacemaker lead in the right ventricle.
--- NOTE | 2016-10-04 21:00 | CARD ---
APPROVED REPORT INDICATION Congestive Heart Failure EVALUATE LV AND RV EF% PROCEDURE The above named patient recieved 25 millicuries of Tc99m tagged red blood cells intravenously. After achieving equilibrium, gated imaging of 16/frame/cycle was performed utillizing Gamma camera interfaced with a digital computer and gated device. Gated imaging was then performed in the left anterior oblique, anterior, and the left lateral projections. Findings Left Ventricle: The quality of the study is good. The left ventricle is mildly enlarged. The right ventricle is normal in size. Wall motion study shows mild diffuse hypokinesis of the left ventricle. RV wall motion is normal. The right atrium is dynamic. The remainder of the study is unremarkable. Impressions Mild LV dysfunction with diffuse hypokinesis. LVEF = 43%. Normal RV wall motion.
--- NOTE | 2016-10-04 23:04 | PN ---
DATE: 10/04/2016 REFERRING PHYSICIAN: Dr. Axel Villagomez. SUBJECTIVE: He is lying in the bed at 45 degrees. Night was unremarkable. He does normally use CPAP. No nausea and no vomiting. No diarrhea. Does have leg swelling. Left knee and lower leg has some skin breakdown. PHYSICAL EXAMINATION GENERAL: No acute distress. VITAL SIGNS: Temperature is 98, heart rate is 69, respiratory rate is 18, blood pressure 133/85 and pulse oximetry is 94% on nasal cannula. HEENT: Moist mucous membrane. Crowded airway. Mallampati score is 4. NECK: Supple. No JVD. CARDIOPULMONARY: Heart, S1 and S2 irregular. LUNGS: Scattered rhonchi with prolonged expiratory phase. ABDOMEN: Soft and nontender. No organomegaly. EXTREMITIES: Has edema of both lower extremities, left lower extremity some area skin breakdown. NEUROLOGIC: Awake and alert. Follows simple commands. LABORATORY DATA: Shows hemoglobin 12.5, hematocrit 38.8, WBC 11.1 and platelet count is 166. Blood sugar is 285. Microbiology: Blood culture has been negative. Had echocardiogram done, report is pending. MEDICATIONS: He is on Aldactone 25 mg twice a day, glimepiride 4 mg daily, Ativan 2 mg a.m. and at bedtime, *------* to the affected area, Calan 80 mg 3 times a day, Coumadin 7.5 mg will be given tonight, trazodone 100 mg at bedtime, DuoNeb q.6 hours, digoxin 0.125 mg daily, Lasix is 40 mg IV twice a day, Lipitor 40 mg daily, metoprolol tartrate 50 mg twice a day, magnesium oxide 400 mg twice a day, Singulair 10 mg daily, Solu-Medrol 40 mg daily and Zestril 20 mg daily. IMPRESSION AND PLAN: Chronic obstructive lung disease, cardiomyopathy, decreased left ventricular function, pulmonary hypertension, cardiac arrhythmia requiring automatic implantable cardioverter-defibrillator, has recurrent atrial fibrillation, diabetes, hypertension, hyperlipidemia, thromboembolic disease with left lower extremity ischemia requiring mechanical thrombectomy in the past. Known compliance with the followup. We decreased Solu-Medrol to 30 mg daily. Continue inhaled bronchodilator. Sleep apnea precaution of isolation. Encouraged continuous positive airway pressure use. Once discharged, the patient needs attended sleep study. Thank you, and we will follow with you. Tia Godinez MD
--- NOTE | 2016-10-05 04:21 | PN ---
DATE: 10/04/2016 REASON FOR CONSULTATION: Followup decompensated congestive heart failure, [id number] systolic dysfunction. BRIEF CLINICAL HISTORY: This 56-year-old male with nonischemic cardiomyopathy, AFib, had radiofrequency ablation, atrial flutter, status post AICD, admitted with decompensated congestive heart failure. Started on Lasix, patient feels better. PHYSICAL EXAMINATION VITAL SIGNS: Temperature afebrile, heart rate 69, blood pressure 133/85. HEENT: PERRLA. Extraocular muscles intact. NECK: Supple. No carotid bruits or thyromegaly. CARDIOPULMONARY: S1 and S2 regular. LUNGS: Chest clear to auscultation. ABDOMEN: Soft. EXTREMITIES: Clubbing and cyanosis negative. LABORATORY DATA: Blood workup as follows: WBC 11.1, hemoglobin 12.5, hematocrit 38.8, platelet count 166. Chemistry showed sodium 137, potassium 4.0, chloride 97, carbon dioxide 31, anion gap of 13, BUN 19, creatinine 0.7. IMPRESSION: This is a 56-year-old male with past medical history significant for nonischemic cardiomyopathy, cardiac catheterization x3, nonischemic coronary artery disease. The last catheterization in 2014. History of atrial fibrillation with rapid ventricular rate, status post radiofrequency ablation, status post automatic implantable cardioverter-defibrillator. Now the rate is controlled and in normal sinus. Obesity, decompensated congestive heart failure, diabetes, hypertension, hyperlipidemia, history of tobacco abuse, history of alcohol abuse. RECOMMENDATIONS: Continue IV Lasix,spironolactone. We will give a low dose of Zaroxolyn, added on the top for more diuresis. Continue verapamil, continue Coumadin. If the patient remains in normal sinus, we will discontinue Coumadin. We will get a MUGA scan to assess LV function, also repeat echo to assess LV function *------*. We will follow with you. INR therapeutic. We will repeat the labs in the morning. We will supplement magnesium, one mag rider for anticipating ongoing loss and 1.3 magnesium. We will continue p.o., but we will give one more extra dose of IV. We will follow. Thank you *------* for opportunity in taking care of the patient. Tia Rajan MD
[2016-10-05] MEDS: Albuterol-Ipratrop 3 mg / 0.5 (3 ml) UD IH SCH (07:07)
[2016-10-05 07:15] LABS: INR 2.77 (0.93-1.08); PROTHROMBIN TIME 29.9 Seconds (9.9-11.8)
[2016-10-05 07:23] LABS: HEMOGLOBIN 12.7 gm/dL (14.0-18.0); MEAN CELL VOLUME 83.4 fL (80.0-105.0); MEAN CORPUSCULAR HEMOGLOBIN 27.8 pg (25.0-35.0); MEAN CORPUSCULAR HGB CONC 33.3 g/dl (31.0-37.0); MEAN PLATELET VOLUME 12.2 fl (7.0-11.0); RBC 4.57 10^6/uL (3.5-6.1); WHITE BLOOD COUNT 14.5 10^3/ul (4.5-11.0)
[2016-10-05 07:43] LABS: BLOOD UREA NITROGEN 22 mg/dL (7-21); GFR AFRICAN-AMERICAN > 60; GFR NON-AFRICAN AMERICAN > 60; MAGNESIUM 1.9 mg/dL (1.7-2.2)
[2016-10-05] MEDS ORDERED: metOLazone 5 MG TAB PO SCH (08:00)
[2016-10-05] MEDS: Insulin Reg-MEDIUM-Coverage SC SCH (08:08)
[2016-10-05 08:12] VITALS: BP 132/88
[2016-10-05 08:15] VITALS: PULSE 79; TEMP 97.6
--- NOTE | 2016-10-06 06:13 | DS ---
HISTORY OF PRESENT ILLNESS: This is a 56-year-old male who had come to the hospital with acute COPD exacerbation. The patient was placed on a nebulizer treatment and IV steroids. He had improvement of his symptoms. He had cellulitis in the left leg that also had improved with the swelling that had decreased. He had echo that showed EF of 35%. He otherwise feels well. He is able to ambulate. He is breathing better. He is going to be discharged home to followup as an outpatient. PHYSICAL EXAMINATION: VITAL SIGNS: Temperature is 97.6, pulse of 79, blood pressure 132/81, respirations 20, and O2 saturation 94%. HEENT: Anicteric sclerae. Moist mucosa. NECK: No JVD, adenopathy, or thyromegaly. CARDIOVASCULAR: S1 and S2 irregular. No murmurs or rubs. LUNGS: Good bilateral air entry. No wheezes, rales, or rhonchi. ABDOMEN: Bowel sounds are positive, soft, nontender, and nondistended. EXTREMITIES: Lower extremities with trace edema. No erythema. Good range of motion, 1+pulses. LABORATORY DATA: Labs have been reviewed. ASSESSMENT: 1. Left leg acute cellulitis, resolved. 2. Acute chronic obstructive pulmonary disease exacerbation, resolved. 3. Atrial fibrillation. 4. Congestive heart failure secondary to systolic dysfunction with ejection fraction of 35%, stable. 5. Diabetic neuropathy. 6. Diabetes type II. 7. Hypertension. 8. Dyslipidemia. 9. Obesity with a body mass index of 40. PLAN: The patients is going to continue his home medications. I have reviewed his mediations with him. I gave him prescription for glimepiride, metformin, lisinopril, Ativan, trazodone, and albuterol nebulizer. I did decrease his Ativan decision making, he is agreeing to this decrease on his Singulair. He is on Lipitor for dyslipidemia. He is on Coumadin, this will be continued. He is going to followup in the office in 1 week. Condition is stable. Activities increase as tolerated. Axel Villagomez MD [facility] # [id number]
== END 2016-10-05 09:06 | disposition home or self-care (01) | DRG 602 ==
LOC: ED 17:16 → ERH 19:12 → 2RNO 22:45 → OBSVTOIN 10-03 17:05 → 5RNO 10-03 18:11
PROVIDERS: ADMIT Internal Medicine Nephrology; ATTEND Internal Medicine Nephrology
DX: L03.116 Cellulitis of left lower limb (principal); I50.23 Acute on chronic systolic (congestive) heart failure; E11.40 Type 2 diabetes mellitus with diabetic neuropathy, unspecified; I42.8 Other cardiomyopathies; J44.1 Chronic obstructive pulmonary disease with (acute) exacerbation; Z68.41 Body mass index [BMI] 40.0-44.9, adult; I48.91 Unspecified atrial fibrillation; E78.5 Hyperlipidemia, unspecified; I11.0 Hypertensive heart disease with heart failure; E66.01 Morbid (severe) obesity due to excess calories; G47.33 Obstructive sleep apnea (adult) (pediatric); I73.9 Peripheral vascular disease, unspecified; Z98.84 Bariatric surgery status; Z86.718 Personal history of other venous thrombosis and embolism; Z95.810 Presence of automatic (implantable) cardiac defibrillator; Z79.01 Long term (current) use of anticoagulants

== ENCOUNTER 2016-11-26 11:19 | Inpatient (IN) | payer MEDICARE, OTHER ==
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
[2016-11-26] MEDS ORDERED: Albuterol-Ipratrop 3 mg / 0.5 (3 ml) UD IH STA ×2 (11:44→13:46)
[2016-11-26 11:56] LABS: ARTERIAL BLOOD GAS HCO3 22.4 mmol/L (21-28); ARTERIAL BLOOD GAS PH 7.44 (7.35-7.45)
[2016-11-26 12:02] LABS: BASO # 0.04 K/mm3 (0.0-2.0); BASO % 0.3 % (0.0-3.0); EOS # 0.1 (0.0-0.7); EOS % 0.9 % (1.5-5.0); GRAN # 10.37 (1.4-6.5); GRAN % 82.7 % (50.0-68.0); HEMATOCRIT 39.6 % (42.0-52.0); LYMPH # 1.4 (1.2-3.4); MEAN CELL VOLUME 84.8 fl (80.0-105.0); MEAN CORPUSCULAR HEMOGLOBIN 28.9 pg (25.0-35.0); MEAN CORPUSCULAR HGB CONC 34.1 g/dl (31.0-37.0); MEAN PLATELET VOLUME 10.3 fl (7.0-11.0); MONO # 0.6 (0.1-0.6); MONO % 5.1 % (1.0-6.0); WHITE BLOOD COUNT 12.5 10^3/ul (4.5-11.0)
[2016-11-26 12:27] LABS: ALB/GLOB RATIO 1.4 (1.1-1.8); ALKALINE PHOSPHATASE 84 U/L (38-126); ALT/SGPT 31 U/L (7-56); AST/SGOT 22 U/L (17-59); BILIRUBIN,TOTAL 1.2 mg/dL (0.2-1.3); BLOOD UREA NITROGEN 14 mg/dL (7-21); CALCIUM 9.1 mg/dL (8.4-10.5); CARBON DIOXIDE 26 mmol/L (21-33); CHLORIDE 102 mmol/L (98-107); GFR AFRICAN-AMERICAN > 60; GLUCOSE,RANDOM 257 mg/dL (70-110); POTASSIUM 4.1 mmol/L (3.6-5.0); SODIUM 138 mmol/L (132-148); TOTAL PROTEIN 6.5 g/dL (5.8-8.3)
--- NOTE | 2016-11-26 12:29 | RAD ---
HISTORY: sob COMPARISON: 10/02/2016 FINDINGS: LUNGS: No active pulmonary disease. PLEURA: No significant pleural effusion identified, no pneumothorax apparent. CARDIOVASCULAR: Moderate cardiomegaly. Dual lead pacemaker OSSEOUS STRUCTURES: No significant abnormalities. VISUALIZED UPPER ABDOMEN: Normal. OTHER FINDINGS: None. IMPRESSION: Moderate cardiomegaly. No active disease
[2016-11-26 12:38] LABS: TROPONIN I 0.04 ng/mL
[2016-11-26 12:52] LABS: INR 1.19 (0.93-1.08); PARTIAL THROMBOPLASTIN TIME 25.9 Seconds (23.7-30.8)
[2016-11-26 13:43] LABS: VENOUS BLOOD GAS BASE EXCESS -1.2 mmol/L (0.0-2.0); VENOUS BLOOD PH 7.33 (7.32-7.43)
[2016-11-26 14:20] LABS: URINE BILIRUBIN NEGATIVE (NEGATIVE); URINE BLOOD NEGATIVE (NEGATIVE); URINE GLUCOSE (UA) 500 mg/dL (NEGATIVE); URINE KETONE NEGATIVE (NEGATIVE); URINE LEUKOCYTE ESTERASE NEGATIVE Leu/uL (NEGATIVE); URINE PROTEIN TRACE mg/dL (<30 mg/dL); URINE UROBILINOGEN 0.2 E.U./dL (<1 E.U./dL)
[2016-11-26 14:22] LABS: URINE APPEARANCE CLEAR (CLEAR); URINE COLOR YELLOW (YELLOW)
[2016-11-26] MEDS: Enoxaparin 100 mg Syringe SC SCH (14:31)
[2016-11-26 14:40] VITALS: BMI 39.5
[2016-11-26 14:43] LABS: URINE EPITHELIAL CELLS 0 - 2 /hpf (0-5); URINE RBC 0 - 2 /hpf (0-2); URINE WBC 0 - 2 /hpf (0-6)
[2016-11-26] MEDS: Digoxin 125 mcg (0.125 mg) Tab PO SCH (14:45)
[2016-11-26 18:10] LABS: VENOUS BLOOD GAS BASE EXCESS 0.6 mmol/L (0.0-2.0); VENOUS BLOOD PH 7.33 (7.32-7.43)
--- NOTE | 2016-11-26 18:10 | CARD ---
APPROVED REPORT EKG Measurement Heart [id number] <Conclusion> Biventricular paced rhythm Underlyong rhythm is Sinus with AV Block Abnormal ECG
[2016-11-26] MEDS: Insulin Detemir 100 units/ml Vial (Levemir) SC SCH (18:28)
[2016-11-26] MEDS ORDERED: Insulin Lispro (humaLOG) MEDIUM Coverage SC SCH (22:00)
--- NOTE | 2016-11-27 00:16 | HP ---
HISTORY OF PRESENT ILLNESS: Mr. Johnson is a 56-year-old male who presented to ED with complaints of shortness of breath on exertion. He has a history of atrial fibrillation, COPD, and CHF. He has not taken his medications for one month, although he took Coumadin, last dose today, he said. He is also complaining of sharp pain in the chest. He has defibrillator placed, but he denies any shocks. He has chronic leg pain, complaining of bilateral leg pain and burning sensation in both legs, which is getting worse. He has history of diabetes mellitus, noncompliance with medications, COPD, noncompliance with medications, history of DVT, right leg. He took Coumadin, last dose he says today. PAST MEDICAL HISTORY: DVD right femoral vein, atrial fibrillation, diabetes mellitus type 2, COPD, hypertension, left leg ischemia status post thrombectomy, peripheral neuropathy. PAST SURGICAL HISTORY: Status post gastric bypass surgery, GE reflux. History of cardiac catheterization; defibrillator placement, and left leg thrombectomy. PERSONAL HISTORY: History of substance abuse, cocaine, and alcohol. Former smoker, history of alcohol abuse, history of alcohol and cocaine. FAMILY HISTORY: Noncontributory. ALLERGIES: SEROQUEL, HE GETS A RASH. HOME MEDICATIONS: Reviewed. PHYSICAL EXAMINATION GENERAL: Comfortable in bed. No acute distress. VITAL SIGNS: Heart rate is 72 per minute, blood pressure 126/27, respiratory rate 18 per minute and oxygen saturation 98% on room air. HEENT: Normal. Morbidly obese. NECK: Supple. CHEST: Air entry present and equal bilateral, no added sound. CARDIOVASCULAR: S1 and S2 normal. No murmur and no gallop. ABDOMEN: Soft and nontender. No hepatosplenomegaly. EXTREMITIES: Bilateral scratch gale present, healed. No cellulitis. No calf tenderness. LAST DIPPER: Alert and oriented x3. No sensory or motor deficits. LABORATORY DATA: White count 12.5, hemoglobin 13.5, hematocrit 39.6 and platelet 166. Sodium 138, potassium 4.1, BUN 14, creatinine 0.7, and glucose 257. ASSESSMENT: 1. Shortness of breath. 2. Right femoral vein thrombosis. 3. Atrial fibrillation. 4. Diabetes mellitus type 2. 5. Peripheral neuropathy. 6. Chronic obstructive pulmonary disease. 7. Hypertension. 8. Left leg ischemia, arterial thrombosis. PLAN: He will be admitted to the [facility], [facility] [place]. 4 hours p.r.n. We will continue Lipitor 40 mg daily, digoxin 0.125 mg daily, anticoagulation with Lovenox 100 mg subcutaneous q.12 hours, Coumadin 7.5 mg daily. Lasix 40 mg IV b.i.d., Amaryl 4 mg daily, Levemir insulin 40 units subcutaneous b.i.d., lisinopril 20 mg daily, metformin 1000 mg b.i.d., metoprolol 50 mg p.o. b.i.d., trazodone 150 mg daily, verapamil 80 mg q. 8 hours. We will do tele monitoring. We will monitor blood count. Celena Drake MD
[2016-11-27] MEDS: Enoxaparin 100 mg Syringe SC SCH ×2 (04:52→14:11)
[2016-11-27] MEDS: Albuterol-Ipratrop 3 mg / 0.5 (3 ml) UD IH PRN ×2 (07:53→13:40)
[2016-11-27] MEDS: Insulin Reg-MEDIUM-Coverage SC SCH ×4 (08:11→22:11)
--- NOTE | 2016-11-27 08:39 | US ---
HISTORY: Leg pain and swelling. Evaluate for DVT PHYSICIAN(S): John Paul Cannon MD. TECHNIQUE: Duplex sonography and color-flow Doppler with graded compression were used to evaluate the deep venous systems of both lower extremities. FINDINGS: The visualized deep venous systems of both lower extremities are sonographically normal and compressible. Normal wave forms and augmentation are seen. There is no sonographic evidence for deep venous thrombosis in the visualized segments of both lower extremities. IMPRESSION: No sonographic evidence for deep venous thrombosis in the visualized segments of both lower extremities.
--- NOTE | 2016-11-27 09:02 | PN ---
DATE: SUBJECTIVE: The patient has no complaints of any chest pain. No shortness of breath, headache, or dizziness. He states he gets short of breath when he ambulates. PHYSICAL EXAMINATION VITAL SIGNS: Temperature is 97.6, pulse of 68, blood pressure 118/40, and respirations 20. GENERAL: The patient is lying in bed, flat, comfortable. HEENT: No oral lesion. Anicteric sclerae. Moist mucosa. NECK: No JVD, adenopathy, or thyromegaly. CARDIOVASCULAR: S1 and S2, regular. No murmurs, rubs, or gallops. LUNGS: Clear to auscultation bilaterally. No wheeze, rales, or rhonchi. ABDOMEN: Bowel sounds are positive, soft, nontender and nondistended. EXTREMITIES: no cyanosis, clubbing or edema. LABORATORY DATA: Creatinine is 0.7. White count is 12.5. ASSESSMENT: 1. Acute congestive heart failure secondary to systolic dysfunction. 2. Acute chronic obstructive pulmonary disease. 3. Diabetes type 2. 4. Atrial fibrillation, on Coumadin. 5. Hypotension. 6. Peripheral arterial disease. PLAN: The patient is currently comfortable. He is on Amaryl for his diabetes. He is on insulin sliding scale. The patient is on Coumadin for his atrial fibrillation. He is on metformin for his diabetes as well. The patient is on Levemir for his diabetes. He is on Lovenox for his anticoagulation. He is not able to afford his medications because of insurance issues. He is subtherapeutic on his Coumadin. He has not been able to follow up in the office. His Doppler studies are pending. Dr. Rajan is also going to be seeing the patient. I will get Dr. Godinez to follow the patient from Pulmonary as well. Axel Villagomez MD
[2016-11-27] MEDS: Digoxin 125 mcg (0.125 mg) Tab PO SCH (09:17)
[2016-11-27] MEDS: Insulin Detemir 100 units/ml Vial (Levemir) SC SCH ×2 (09:18→17:31)
[2016-11-27 11:26] LABS: BASO # 0.04 K/mm3 (0.0-2.0); BASO % 0.4 % (0.0-3.0); EOS # 0.1 (0.0-0.7); EOS % 1.3 % (1.5-5.0); GRAN # 8.03 (1.4-6.5); HEMATOCRIT 39.5 % (42.0-52.0); LYMPH # 1.6 (1.2-3.4); LYMPH % 15.5 % (22.0-35.0); MEAN CELL VOLUME 85.7 fl (80.0-105.0); MEAN CORPUSCULAR HEMOGLOBIN 28.9 pg (25.0-35.0); MEAN CORPUSCULAR HGB CONC 33.7 g/dl (31.0-37.0); MEAN PLATELET VOLUME 9.7 fl (7.0-11.0); MONO # 0.6 (0.1-0.6); MONO % 5.8 % (1.0-6.0); RED CELL DISTRIBUTION WIDTH 17.1 % (11.5-14.5); WHITE BLOOD COUNT 10.4 10^3/ul (4.5-11.0)
[2016-11-27 11:34] LABS: ALB/GLOB RATIO 1.4 (1.1-1.8); ALKALINE PHOSPHATASE 76 U/L (38-126); ALT/SGPT 31 U/L (7-56); AST/SGOT 22 U/L (17-59); BILIRUBIN,TOTAL 1.2 mg/dL (0.2-1.3); BLOOD UREA NITROGEN 16 mg/dL (7-21); CALCIUM 9.3 mg/dL (8.4-10.5); CARBON DIOXIDE 28 mmol/L (21-33); CHLORIDE 98 mmol/L (95-110); GFR AFRICAN-AMERICAN > 60; GLUCOSE,RANDOM 126 mg/dL (70-110); INR 1.38 (0.93-1.08); MAGNESIUM 1.3 mg/dL (1.7-2.2); PHOSPHOROUS 4.6 mg/dL (2.5-4.5); POTASSIUM 4.1 mmol/L (3.6-5.0); SODIUM 139 mmol/L (132-148); TOTAL PROTEIN 6.7 g/dL (5.8-8.3)
[2016-11-27] MEDS: Magnesium Sulfate 2 GM in Sodium Chloride 0.9% 100 ML IVPB SCH ×2 (14:10→17:33)
--- NOTE | 2016-11-27 17:26 | CARD ---
APPROVED REPORT EKG Measurement Heart [id number] <Conclusion> Biventricular paced rhythm Underlying rhythm is sinus with AV Block Abnormal ECG
[2016-11-28] MEDS: Enoxaparin 100 mg Syringe SC SCH ×3 (02:43→17:08)
--- NOTE | 2016-11-28 06:16 | CON ---
DATE: 11/27/2016 CONSULT SERVICE: Cardiology. CARDIOLOGY PHYSICIAN: Dr. Tia Rajan. REASON FOR THE CONSULTATION: Cardiac evaluation, congestive heart failure and history of atrial fibrillation, status post radiofrequency ablation. BRIEF CLINICAL HISTORY: This is a 56-year-old morbidly obese male with past medical history of COPD; atrial fibrillation, status post radiofrequency ablation, status post AICD, cardiomyopathy; history of DVT, right femoral vein; history of left leg ischemia, status post thrombectomy, came in with complaint of shortness of breath for 2 to 3 days. Denies any chest pain, but complains of leg swelling. PAST MEDICAL HISTORY: Significant for DVT, right femoral vein; history of atrial fibrillation, status post radiofrequency ablation; diabetes; obesity; COPD; hypertension; history of left leg lower extremity acute ischemia, status post thrombectomy; peripheral neuropathy. PAST SURGICAL HISTORY: Significant for gastric bypass surgery, GE reflux, history of cardiac catheterization for nonobstructive coronary artery disease x3. PREVIOUS CARDIAC WORKUP: As follows; the patient had cardiac catheterization possibly 3 times, at least 2 in the [facility] dated 11/05/2014, normal coronary, ejection fraction 50%, EDP in the range of 30. Medical treatment recommended. The patient recently was sent to [facility] for radiofrequency ablation, status post AICD placed, history of a failed CORA cardioversion, nonobstructive coronary artery disease. The patient's last echocardiography done in [facility], dated 08/15/2016, read by Dr. Flowers and shows the left ventricle is mildly dilated, thickened, normal systolic function severely impaired. Right ventricle is moderately dilated, RV systolic pressure severely reduced, calculated ejection fraction 24%. Prior to that, the patient had echocardiography on 06/10/2015 that showed normal LV size, LVH with ejection fraction 45%, global hypokinesis, trace to mild mitral regurgitation, trace to mild tricuspid regurgitation, RV systolic pressure of 70 dated 06/10/2015. REVIEW OF SYSTEMS: As per HPI. CURRENT MEDICATIONS: The patient is taking at home trazodone, Coumadin, verapamil, metformin, lisinopril, insulin, glimepiride, Lasix, digoxin and albuterol. EKG showed V-paced rhythm, underlying atrial flutter. PHYSICAL EXAMINATION: VITAL SIGNS: As follows; temperature afebrile, heart rate 80 and blood pressure 130/80. HEENT: PERRLA. Extraocular muscles intact. NECK: Supple. No carotid bruits or thyromegaly. CHEST: Clear to auscultation. HEART: S1 and S2 regular. ABDOMEN: Soft. EXTREMITIES: Clubbing and cyanosis negative. LABORATORY DATA: Blood workup as follows; WBC 10.2, hemoglobin 13.3, hematocrit 39.9 and platelet count 159. Chemistry shows sodium 139, potassium 4.0, chloride 90, carbon dioxide 28, anion gap of 16, BUN 17, creatinine 0.9, total protein 6.7, albumin 3.0 and albumin-globulin ratio 2.9. Coagulation profile: INR 1.38, PT 14.9. IMPRESSION: Decompensated congestive heart failure, acute on chronic secondary to systolic dysfunction, status post AICD. BNP 3620. A 56-year-old male with past medical history significant for obesity; diabetes; hypertension; hyperlipidemia; atrial flutter, status post radiofrequency ablation; cardiomyopathy nonischemic, status post cardiac catheterization twice, admitted with decompensated heart failure. Most recent echo, dated 10/04/2016, shows ejection fraction 35% with moderate global hypokinesis, trace to mild mitral regurgitation, mild tricuspid regurgitation. Prior echo shows ejection fraction 25% status post AICD, history of radiofrequency ablation and AICD. RECOMMENDATIONS: We will get a MUGA scan. Continue anticoagulation, goal is to keep INR 2. Continue Lasix, continue Coumadin. We will give dose of Lovenox as a bridge because of the patient's AFib as well as history of DVT and acute ischemia, acute thrombosis, acute left lower extremity in the past, status post thrombectomy. We will continue SID inhibitors, continue Coumadin, continue verapamil. We will get lisinopril and to continue beta rahat to control the rate. If the rate is controlled, change to his Coreg, although I will continue to control the rate verapamil as well as beta rahat. We will follow with you. We will get lipid profile, TSH, hemoglobin A1c. We will get MUGA scan to assist LV function. We will give Lovenox as a bridge until the INR get therapeutic. We will follow with you. Thank you Dr. Villagomez for providing us the opportunity in taking care of the patient. Tia Rajan MD [facility] # [id number]
--- NOTE | 2016-11-28 06:58 | CON ---
DATE: 11/27/2016 REFERRING PHYSICIAN: Axel Villagomez MD REASON FOR CONSULTATION: Chronic obstructive lung disease, obstructive sleep apnea syndrome, heart failure. HISTORY OF PRESENT ILLNESS: This is a 56-year-old gentleman, well known to me, noncompliant with followup and medications, comes in with shortness of breath, leg edema. Apparently, the patient has been noncompliant with his medications. He has a history of atrial fibrillation, cardiomyopathy, decreased LV function, pulmonary hypertension, obstructive sleep apnea syndrome, chronic obstructive lung disease, hypertension, diabetes, treated with IV diuretics, inhaled bronchodilator. At present, he is sitting up in a chair, claims that he only has Medicare, does not have Medicare Part D and does not follow up with physician for same reason, but no chest pain, no hemoptysis, no hematemesis, no hematuria, no diarrhea reported. PAST MEDICAL HISTORY: Chronic obstructive lung disease, obstructive sleep apnea syndrome, cardiomyopathy, pulmonary hypertension, obesity, hypertension, diabetes, history of DVT, also history of thromboembolic disease requiring thrombectomy. ALLERGIES: SEROQUEL. FAMILY HISTORY: Cardiopulmonary disease reported. SOCIAL HISTORY: Stopped smoking and alcohol abuse. MEDICATIONS: He is on Amaryl 4 mg, Calan 80 mg q. 8 hours, Coumadin 7.6 mg given today, trazodone 150 mg at bedtime, DuoNeb q. 4 hours p.r.n., metformin 1000 mg twice a day, digoxin 0.125 mg daily, Lasix 40 mg twice a day, Levemir 40 units subcu twice a day, Lipitor 40 mg daily, metoprolol tartrate 50 mg twice a day, Lovenox 100 mg subcu q. 12 hours, Zestril 20 mg daily. REVIEW OF SYSTEMS: No headache. No rhinitis. Has some cough, short of breath. No chest pain, no nausea, no vomiting, no diarrhea, no dysuria. Does have leg swelling. PHYSICAL EXAMINATION GENERAL: Sitting up in a chair. VITAL SIGNS: Temperature is 98, heart rate 72, respiratory rate is 18, blood pressure 93/60. Pulse ox 97% on 2 L nasal cannula. HEENT: Moist mucous membranes. Crowded airway. Mallampati score is 4. NECK: Supple. No JVD. HEART: S1, S2. LUNGS: Has a fair airflow with few rhonchi. ABDOMEN: Soft, nontender. No organomegaly. EXTREMITIES: Does have edema. NEUROLOGIC: Awake, alert. Follows simple commands. LABORATORY DATA: Shows hemoglobin 13.3, hematocrit 39.5, WBC 10.4, platelets 159. INR 1.3. Sodium 139, potassium 4.1, chloride 98, bicarbonate 28, BUN 16, creatinine 0.9, glucose 126. Lactic acid 2.4. Calcium is 9.3, phosphorus 4.6, magnesium 1.3. AST 22, ALT 31, alkaline phosphatase 76. Albumin 3.9. Microbiology, blood culture, urine culture, there is no growth. Has a venous Doppler lower extremity done which showed no sonographic evidence of DVT, thrombus in the visualized segments. Had echocardiogram done which showed biventricular paced rhythm, underlying rhythm sinus with AV block. Chest x-ray shows moderate cardiomegaly. IMPRESSION AND PLAN: Cardiomyopathy, pulmonary hypertension, atrial fibrillation, status post biventricular pacemaker, I believe it is AICD, obstructive sleep apnea syndrome, diabetes, hypertension, morbid obesity, noncompliance with medications and CPAP. Continue bronchodilator, afterload tool crib lead, beta-rahat, gastric prophylaxis, anticoagulation. We will place him on CPAP 8 cm with 30% oxygen while sleeping. Avoid sedation, fall precaution. Thank you and we will follow with you. Tia Godinez MD
[2016-11-28 07:39] LABS: HEMATOCRIT 38.1 % (42.0-52.0); MEAN CELL VOLUME 85.2 fl (80.0-105.0); MEAN CORPUSCULAR HEMOGLOBIN 28.4 pg (25.0-35.0); MEAN CORPUSCULAR HGB CONC 33.3 g/dl (31.0-37.0); MEAN PLATELET VOLUME 10.3 fl (7.0-11.0); RED CELL DISTRIBUTION WIDTH 17.2 % (11.5-14.5); WHITE BLOOD COUNT 8.6 10^3/ul (4.5-11.0)
[2016-11-28 07:46] LABS: INR 1.52 (0.93-1.08)
--- NOTE | 2016-11-28 08:17 | PN ---
DATE: 11/28/2016 SUBJECTIVE: The patient has no complaints of any chest pain, shortness of breath or headache. He does stated that he gets shortness of breath with exertion. PHYSICAL EXAMINATION: VITAL SIGNS: Temperature is 97.2, pulse is 70, blood pressure 97/57, and respirations 20. GENERAL: The patient is lying in bed, flat, comfortable. HEENT: No oral lesion. Anicteric sclerae. Moist mucosa. NECK: No JVD, adenopathy, or thyromegaly. CARDIOVASCULAR: S1 and S2, regular. No murmurs, rubs, or gallops. LUNGS: Clear to auscultation bilaterally. No wheeze, rales, or rhonchi. ABDOMEN: Bowel sounds are positive, soft, nontender and nondistended. EXTREMITIES: No cyanosis, clubbing or edema. ASSESSMENT: 1. Congestive heart failure secondary to systolic dysfunction. 2. Chronic obstructive pulmonary disease. 3. Diabetes type 2. 4. Atrial fibrillation, on Coumadin. 5. Hypertension. 6. Peripheral arterial disease. PLAN: The patient is currently on Amaryl for his diabetes. The patient is on verapamil for his atrial fibrillation, on Coumadin for his anticoagulation. He is on metformin for his diabetes as well. He is on lisinopril for hypertension. He is on Lovenox for his anticoagulation. His INR is therapeutic. He is going to continue with Lasix daily. He is having followed by Cardiology and Pulmonary. The patient has EF of 24% previously. One of the major issue is the patient is noncompliant with his medication and followup. He also states he has lost part of insurance. He is not able to afford his medications. Axel Villagomez MD
[2016-11-28 08:36] LABS: BLOOD UREA NITROGEN 19 mg/dL (7-21); CARBON DIOXIDE 28 mmol/L (21-33); CHLORIDE 101 mmol/L (98-107); CHOLESTEROL 103 mg/dL (130-200); GFR AFRICAN-AMERICAN > 60; GLUCOSE,RANDOM 62 mg/dL (70-110); MAGNESIUM 1.8 mg/dL (1.7-2.2); PHOSPHOROUS 5.4 mg/dL (2.5-4.5); POTASSIUM 3.7 mmol/L (3.6-5.0); SODIUM 140 mmol/L (132-148)
[2016-11-28] MEDS: Insulin Reg-MEDIUM-Coverage SC SCH ×4 (08:45→21:51)
[2016-11-28] MEDS: Insulin Detemir 100 units/ml Vial (Levemir) SC SCH ×2 (10:44→17:08)
--- NOTE | 2016-11-28 11:15 | PN ---
DATE: 11/28/2016 REASON FOR CONSULTATION: Followup cardiac evaluation, congestive heart failure, history of atrial fibrillation, status post radiofrequency ablation, and status post AICD. SUBJECTIVE: Denies any chest pain or shortness of breath. Feels better, but sometimes feels dizzy. OBJECTIVE: GENERAL: Sitting at the bedside and not in apparent distress. VITAL SIGNS: Temperature afebrile, heart rate 70, and blood pressure 97/57. HEENT: PERRLA. Extraocular muscles are intact. NECK: Supple. No carotid bruits or thyromegaly. CHEST: Clear to auscultation. HEART: S1 and S2 regular. ABDOMEN: Soft. EXTREMITIES: Clubbing and cyanosis negative. LABORATORY DATA: Blood workup as follows; WBC 8.6, hemoglobin 12.7, hematocrit 38.1, and platelet count 162. Chemistry shows sodium 140, potassium 3.3, chloride 101, carbon dioxide 28, anion gap of 15, BUN 19, creatinine 0.9, phosphorus 5.4, magnesium 1.8, and TSH 1.9. Coagulation profile; INR 1.52. IMPRESSION: Atrial fibrillation chronic, subtherapeutic INR, morbid obesity, body mass index 38.3 kg/m2, decompensated congestive heart failure, congestive heart failure secondary to systolic dysfunction, nonischemic cardiomyopathy, status post cardiac catheterization and abnormal coronaries, noncompliance with the medication, and hypotension. RECOMMENDATIONS: We will get the MUGA scan. We will adjust the medication and decrease verapamil, continue digoxin, and continue atorvastatin. 1. Decrease the verapamil to 40 mg 3 times a day and cut down the lisinopril to 2.5 mg to prevent going into hypotension. Continue diuretics. MUGA scan, decrease LV function. Continue Lovenox until the INR is therapeutic. We will discontinue telemetry. 2. History of AFib, status post AICD, status post radiofrequency ablation. We will also increase the digoxin to 0.25 because the body mass index is 38 kg and the patient 1.125, so we will increase the digoxin level and we will discontinue telemetry. 3. Repeat the lab in the morning and we will discontinue Lovenox when the INR is therapeutic. 4. TSH was done today and was 1.9. Tia Rajan MD [facility] # [id number]
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
[2016-11-28] MEDS: Digoxin 250 mcg (0.25 mg) Tab PO SCH (13:50)
[2016-11-28 13:52] VITALS: PULSE 71
--- NOTE | 2016-11-28 16:41 | RAD ---
PROCEDURE: Radiographs of the left tibia and fibula. HISTORY: left leg pain COMPARISON: None available. TECHNIQUE: Frontal and lateral views obtained. FINDINGS: BONES: No fracture or destructive lesion. JOINT SPACES: Unremarkable. OTHER FINDINGS: None. IMPRESSION: Unremarkable radiographs of the left tibia and fibula.
--- NOTE | 2016-11-28 17:40 | US ---
PROCEDURE: Lower extremity TREVON exam HISTORY: Peripheral vascular disease with pain and ulceration. Diabetes. Previous smoker. PHYSICIAN(S): John Paul Cannon MD. FINDINGS: The right resting TREVON is normal, 1.13. Comparing with the PVR waveforms, the TREVON is inaccurate due to calcification. The left resting TREVON is moderately abnormal, 0.63. It is also abnormally elevated compared with the waveforms. The brachial systolic pressures are symmetric. The high thigh pressures and waveforms are relatively normal. The right calf PVR waveform is normal and augments normally. There is a a significant gradient across the left thigh. In addition, the left calf PVR waveform is decreased in amplitude compared to the right. This is consistent with left SFA occlusive disease. 50-60 mm gradients are seen across both knees. The ankle and metatarsal waveforms are severely blunted. This is consistent with bilateral popliteal, trifurcation, and/ or tibial disease. IMPRESSION: 1. Bilateral popliteal, trifurcation, and/ or tibial disease 2. Left SFA occlusive disease 3. If clinically indicated, further evaluation can be obtained with CTA runoff, MRA runoff, or conventional arteriography.
--- NOTE | 2016-11-29 04:39 | PN ---
DATE: 11/28/2016 SUBJECTIVE: The patient is ambulating out of bed to chair. Night was unremarkable. Did not use CPAP last night. He is claustrophobic. No nausea, no vomiting, no diarrhea. Decreased leg swelling. PHYSICAL EXAMINATION GENERAL: No acute distress. VITAL SIGNS: Temperature is 98, heart rate is 73, respiratory rate is 20, blood pressure 90/52. Pulse ox 92% on 2 liters nasal cannula. HEENT: Moist mucous membranes. Crowded airway. Mallampati score is 4. NECK: Supple. No JVD. LUNGS: Fair air flow with few rhonchi. HEART: S1, S2. ABDOMEN: Soft, nontender. No organomegaly. EXTREMITIES: Does have trace edema. NEUROLOGICAL: Awake and alert. Follows simple commands. MEDICATIONS: He is on Amaryl 4 mg with breakfast, Ativan 1 mg twice a day, Calan 40 mg q. 8 hours, Coumadin 7.5 mg daily, trazodone 150 mg at bedtime, DuoNeb q. 4 hours p.r.n., Glucophage 1000 mg twice a day, insulin coverage, digoxin 0.25 mg daily, Lasix 40 mg twice a day, Levemir 35 units subQ twice a day, Lipitor 40 mg daily, metoprolol tartrate 50 mg twice a day, 100 mg twice a day, Zestril 2.5 mg daily. LABORATORY DATA: Shows hemoglobin 12.7, hematocrit 38.1, WBC 8.6, platelets 162. INR 1.52. Sodium 140, potassium 3.7, chloride 101, bicarbonate 28, BUN 19, creatinine is 0.9, glucose 62. Hemoglobin A1c is 9.5. Calcium is 9.0, phosphorus 5.4, magnesium 1.8. Cholesterol is 103. TSH is 1.90. Microbiology: Blood culture, urine culture, there is no growth. Had extremity Doppler done which shows bilateral popliteal trifurcation tibial disease, left SFA occlusive disease. Had a MUGA scan done, report is pending. IMPRESSION AND PLAN: Cardiomyopathy; pulmonary hypertension; atrial fibrillation, status post biventricular pacemaker; obstructive sleep apnea syndrome; diabetes; hypertension; morbid obesity. Pulmonary point of view, doing okay. Spoke about sleep apnea and discussed frequency, encouraged him to use CPAP. Continue diuretics and beta rahat, gastric prophylaxis, anticoagulation. Followup INR in the morning. We will try to get him nasal pillow mask as an outpatient. Thank you and we will follow with you. Tia Godinez MD
[2016-11-29] MEDS: Enoxaparin 100 mg Syringe SC SCH (05:35)
[2016-11-29 06:27] LABS: MEAN CORPUSCULAR HEMOGLOBIN 28.1 pg (25.0-35.0); MEAN CORPUSCULAR HGB CONC 32.6 g/dl (31.0-37.0); MEAN PLATELET VOLUME 10.5 fl (7.0-11.0); RED CELL DISTRIBUTION WIDTH 17.1 % (11.5-14.5); WHITE BLOOD COUNT 7.8 10^3/ul (4.5-11.0)
[2016-11-29 06:30] LABS: INR 1.75 (0.93-1.08)
[2016-11-29 07:01] LABS: BLOOD UREA NITROGEN 18 mg/dL (7-21); CALCIUM 8.9 mg/dL (8.4-10.5); CARBON DIOXIDE 28 mmol/L (21-33); CHLORIDE 101 mmol/L (95-110); GFR AFRICAN-AMERICAN > 60; GLUCOSE,RANDOM 230 mg/dL (70-110); MAGNESIUM 1.7 mg/dL (1.7-2.2); POTASSIUM 4.2 mmol/L (3.6-5.0); SODIUM 139 mmol/L (132-148)
[2016-11-29] MEDS: Insulin Reg-MEDIUM-Coverage SC SCH ×2 (08:27→11:33)
[2016-11-29 08:37] VITALS: RESP 20; TEMP 98.4; O2SAT 93
--- NOTE | 2016-11-29 10:52 | CARD ---
APPROVED REPORT PROCEDURE The above named patient recieved 22.6 millicuries of Tc99m tagged red blood cells intravenously. After achieving equilibrium, gated imaging of 16/frame/cycle was performed utillizing Gamma camera interfaced with a digital computer and gated device. Gated imaging was then performed in the left anterior oblique, anterior, and the left lateral projections. Findings Left Ventricle: The quality of the study is good. The left ventricle is within normal limits in size with thickened myocardium. The right ventricle is normal in size. Wall motion study shows mild diffuse hypokinesis of the left ventricle. RV wall motion is normal. The right atrium is dynamic. The remainder of the study is unremarkable. Impressions Mild LV dysfunction with diffuse hypokinesis. LVEF = 43%. Normal RV wall motion. In comparison with the last study of 10/04/2016, there is slight improvement of LV contractility.
[2016-11-29] MEDS: Digoxin 250 mcg (0.25 mg) Tab PO SCH (11:10)
[2016-11-29] MEDS: Insulin Detemir 100 units/ml Vial (Levemir) SC SCH (11:11)
--- NOTE | 2016-11-29 12:21 | DS ---
HISTORY OF PRESENT ILLNESS: This is a 56-year-old male who came into the hospital with an acute COPD exacerbation. He was having shortness of breath with exertion. He says he is feeling better. He has no complaints of any headaches or dizziness. He does get shortness of breath with exertion, so he is waiting to go to transitional care unit for rehab. He was followed by cardiology and pulmonary. PHYSICAL EXAMINATION: VITAL SIGNS: Temperature is 98.3, pulse is 70, blood pressure 109/50, respiration is 19. GENERAL: The patient lying in bed, uncomfortable, and in no acute distress. HEENT: Atraumatic and normocephalic. Anicteric sclerae. Moist mucosa. [place] conjunctivae. No oral lesions. NECK: No JVD, anterior and posterior adenopathy, thyromegaly, or bruits. CARDIOVASCULAR: S1 and S2 regular. No murmur, rubs, or gallop. LUNGS: Clear to auscultation bilaterally. No wheezes, rales, or rhonchi. ABDOMEN: Bowel sounds are positive. Soft, nontender and nondistended. No hepatosplenomegaly. No rebound and no guarding EXTREMITIES: No cyanosis, clubbing, or edema. NEUROLOGIC: No facial asymmetry. Tongue is midline. No uvula deviation. Power is 5/5 upper extremity and lower extremity. Sensation intact in upper extremity and lower extremity. PSYCHIATRIC: She is awake, alert and oriented x3. No anxiety or depression. She has normal affect. GENITOURINARY: No CVA tenderness. VASCULAR: 2+ pulses in the carotid pulses and pedal pulses. SKIN: No erythema or nodules SPINE: Shows normal curvature. EXTREMITIES: No Cyanosis and clubbing, no edema. LABORATORY DATA: Creatinine 0.8, INR is 1.75. His fingerstick is 246. IMAGING: His left tibia fibula x-ray shows no signs of osteoid or fracture. He has arterial ultrasound done; shows bilateral popliteal trifurcation or tibial disease, left SFA occlusive disease. ASSESSMENT: 1. Acute chronic obstructive pulmonary disease exacerbation. 2. Acute congestive heart failure secondary to systolic dysfunction. 3. Diabetes type 2. 4. Atrial fibrillation, on Coumadin. 5. Peripheral arterial disease. 6. Hypertension. 7. History of thrombectomy of leg. 8. Noncompliance. PLAN: The patient had cardiac imaging nuclear study done. The patient is being followed by cardiology. He is on verapamil that has been decreased because of his blood pressure. He is on nebulizer treatment. He is receiving digoxin. He is on Levemir for his diabetes, this was decreased yesterday. He is on Lipitor for dyslipidemia. He is on metoprolol. He is on low-dose of lisinopril for his CHF. He is off his diuretic therapy. I will decrease the patient's metoprolol because of his blood pressure. Axel Villagomez MD
[2016-11-29] MEDS ORDERED: Bacitracin Ointment 30 GM TUBE TOP SCH (13:15)
[2016-11-29 13:51] VITALS: BP 102/52; PULSE 69
--- NOTE | 2016-11-29 14:44 | PN ---
DATE: 11/29/2016 REASON FOR THE CONSULTATION: Followup cardiac evaluation, decompensated congestive heart failure, history of atrial fibrillation, status post radiofrequency ablation, status post AICD, and noncompliance with the medication. SUBJECTIVE: The patient denies any chest pain, but complaining of pain in the lower extremity, shortness of breath significantly improved, but still complain of pain in both legs. OBJECTIVE: GENERAL: Sitting at the bed and not in apparent distress. VITAL SIGNS: As follows; temperature afebrile, heart rate 70, and blood pressure 109/50. HEENT: PERRLA. Extraocular muscles are intact. NECK: Supple. No carotid bruits or thyromegaly. CHEST: Clear to auscultation. HEART: S1 and S2 regular. ABDOMEN: Soft. EXTREMITIES: Clubbing and cyanosis negative. LABORATORY DATA: Blood workup as follows; WBC 7.8, hemoglobin 12.4, hematocrit 38.0, and platelet count 168. Chemistry shows sodium 139, potassium 4.2, chloride 101, carbon dioxide 28, anion gap of 14, BUN of 18, and creatinine 0.8. IMPRESSION: A 56-year-old male with history of morbid obesity, atrial fibrillation, increased body mass index of 38.3 kg/m2, acute decompensated congestive heart failure, acute on chronic systolic dysfunction, nonischemic cardiomyopathy, status post cardiac catheterization twice, history of radiofrequency ablation, and status post automated implantable cardioverter-defibrillator. RECOMMENDATIONS: Decrease verapamil to 40 three times a day, discontinue lisinopril 20, cut down . We are awaiting for the MUGA scan. Continue anticoagulation Coumadin. Goal is to keep INR around 2, now it is creeping up to 1.75 today. Continue digoxin. Continue atorvastatin. Follow the MUGA result. Continue diuretics. Yesterday had TREVON PVR that shows bilateral trifurcation tibial disease, left SFA occlusive disease, and history of thrombectomy in the past. Aggressive medical treatment. Thank you Dr. Villagomez for providing me the opportunity in taking care of Pete Johnson. Tia Rajan MD cc: Axel Villagomez MD [facility] # [id number]
--- NOTE | 2016-11-29 15:02 | IP.NPCORE ---
Heart Failure Core Measure - Heart Failure Ejection Fraction: Less Than 40 % SID Inhibitor Prescribed: Yes Beta-Giuliana Prescribed: Bisoprolol, Carvedilol, Metoprolol Succinate ( Metoprolol tartrate 25mg bid), None Contraindication/Reason for not providing: patient is getting Metoprolol Tartrate 25 mg po bid Angiotensin II Receptor Giuliana Prescribed: No Contraindication/Reason for not providing: patient is on ACEI AnticoagulationTherapy for Atrial Fibrillation/Atrialflutter: Yes Aldosterone Antagonist Prescribed: No Contraindication/Reason for not providing: patient already receiving Lasix bid Hydralazine Nitrate Prescribed: No Contraindication/Reason for not providing: patient already receiving Lasix bid Implantable Cardioverter Defibrillator Therapy: Yes Cardiac Resynchronization Therapy Prescribed: No Contraindication/Reason for not providing: not recommended - Follow up Will be discharged to: [facility]
--- NOTE | 2016-11-29 18:33 | PN ---
PULMONARY PROGRESS NOTE DATE: 11/29/2016 REFERRING PHYSICIAN: Dr. Axel Villagomez. SUBJECTIVE: The patient out of bed to chair. Night was unremarkable. No headache. No rhinitis. No nausea, no vomiting, no diarrhea. Feeling better. Decreased leg swelling. OBJECTIVE GENERAL: No acute distress. VITAL SIGNS: Temperature is 98, heart rate is 71, respiratory rate is 20, blood pressure 102/52, and pulse ox 93% on room air. HEENT: Moist mucous membranes. Crowded airway. Mallampati score is IV. NECK: Supple. No JVD. LUNGS: Fair air flow with few rhonchi. HEART: S1 and S2. ABDOMEN: Soft, nontender. No organomegaly. EXTREMITIES: Does have edema. NEUROLOGICAL: Awake and alert. Follows simple commands. MEDICATIONS: He is on Amaryl 4 mg with breakfast, Ativan 1 mg twice a day, Bacitracin ointment affected area, Calan 40 mg q. 8 hours, Coumadin 7.5 mg given, also on trazodone 150 mg daily, DuoNeb q.6 hours, metformin 1000 mg twice a day, insulin coverage, digoxin 0.25 mg daily, Lasix 40 mg twice a day, Levemir 35 units subcutaneous twice a day, Lipitor 40 mg daily, metoprolol tartrate 25 mg twice a day, Lovenox 100 mg twice a day, and Zestril 2.5 mg daily. LABORATORY DATA: Shows hemoglobin 12.4, hematocrit 38.0, WBC 7.8, platelets 168. INR 1.75. Sodium 139, potassium 4.2, chloride 101, bicarbonate 28, BUN 18, creatinine is 0.8, glucose 230. Calcium is 8.9 and magnesium 1.7. Microbiology: Blood culture, urine culture, there is no growth. IMPRESSION AND PLAN: Cardiomyopathy; pulmonary hypertension; atrial fibrillation, biventricular pacemaker; sleep apnea syndrome; diabetes; hypertension; morbid obesity; chronic lung disease. Pulmonary point of view, doing okay. . Avoid sedation. Beta-rahat, diuretics, gastric prophylaxis, anticoagulation. Followup INR in the morning. Fall precaution. Thank you and we will follow with you. Tia Godinez MD
== END 2016-11-29 15:59 | DRG 190 ==
LOC: ED 11:19 → ERH 13:02 → 2RNO 14:52 → 3RNO 11-28 18:15
PROVIDERS: ADMIT Internal Medicine Nephrology; ATTEND Internal Medicine Nephrology
PROC: 3E0F7GC Introduction of Other Therapeutic Substance into Respiratory Tract, Via Natural or Artificial Opening (ICD-10-PCS; principal; 2016-11-27)
DX: J44.1 Chronic obstructive pulmonary disease with (acute) exacerbation (principal); I50.23 Acute on chronic systolic (congestive) heart failure; I27.2 Other secondary pulmonary hypertension; E11.42 Type 2 diabetes mellitus with diabetic polyneuropathy; E66.01 Morbid (severe) obesity due to excess calories; I42.8 Other cardiomyopathies; I48.92 Unspecified atrial flutter; I48.2 Chronic atrial fibrillation; I11.0 Hypertensive heart disease with heart failure; I73.9 Peripheral vascular disease, unspecified; I25.10 Atherosclerotic heart disease of native coronary artery without angina pectoris; K21.9 Gastro-esophageal reflux disease without esophagitis; E78.5 Hyperlipidemia, unspecified; G47.33 Obstructive sleep apnea (adult) (pediatric); Z68.38 Body mass index [BMI] 38.0-38.9, adult; F40.240 Claustrophobia; Z91.14 Patient's other noncompliance with medication regimen; Z91.19 Patient's noncompliance with other medical treatment and regimen; Z86.718 Personal history of other venous thrombosis and embolism; Z79.01 Long term (current) use of anticoagulants; Z95.5 Presence of coronary angioplasty implant and graft; Z95.810 Presence of automatic (implantable) cardiac defibrillator; Z98.84 Bariatric surgery status; Z87.891 Personal history of nicotine dependence; Z91.81 History of falling; Z79.4 Long term (current) use of insulin

== ENCOUNTER 2016-11-29 15:59 | Inpatient (IN) | payer OTHER ==
[2016-11-29] MEDS ORDERED: Albuterol-Ipratrop 3 mg / 0.5 (3 ml) UD IH PRN (16:19)
[2016-11-29 22:06] VITALS: BMI 39.4
[2016-11-29] MEDS ORDERED: Pneumococcal 23-Valent Vaccine IM ONE (22:06)
[2016-11-29] MEDS: Insulin Reg-MEDIUM-Coverage SC SCH (22:16)
[2016-11-29] MEDS: Insulin Detemir 100 units/ml Vial (Levemir) SC SCH (22:17)
[2016-11-30] MEDS: Insulin Reg-MEDIUM-Coverage SC SCH ×4 (07:02→21:52)
--- NOTE | 2016-11-30 10:38 | CP.PCM.PN ---
<Shobha Ceballos - Last Filed: 11/30/16 10:35> Subjective - Date & Time of Evaluation Date of Evaluation: 11/30/16 Time of Evaluation: 10:35 - Subjective Subjective: podiatry progress note for Dr. Marti: 56 yo male with past medical history of CAD, defibrillator, atrial fibrillation , COPD, seen at bedside with attending Dr. Marti for left leg pre ulcerative lesions and bilateral lower extremity erythema. Patient states that he has severe pain in his left lower leg and states that the scab on his left 2nd toe has been there for 6 months. Patient complains of pain in the lower extremities at night which affects his sleep. Patient denies any other pedal complaints at this time. Patient also states that he cannot feel his feet. Patient denies n/f/ v/d/c. Objective - Vital Signs/Intake and Output Vital Signs (last 24 hours): Temp Pulse Resp BP Pulse Ox 97.5 F L 70 18 104/67 11/29/16 21:57 11/30/16 08:03 11/29/16 21:57 11/30/16 08:03 - Medications Medications: Current Medications Albuterol/Ipratropium (Duoneb 3 Mg/0.5 Mg (3 Ml) Ud) 3 ml IH [id number] PRN; Protocol PRN Reason: sob/wheezing Digoxin (Lanoxin) 0.25 mg PO DAILY WILTON PRN Reason: Protocol Glimepiride (Amaryl) 4 mg PO 0730 WILTON PRN Reason: Protocol Last Admin: 11/30/16 08:03 Dose: 4 mg Insulin Detemir (Levemir) 35 unit SC 1000,2200 WILTON PRN Reason: Protocol Last Admin: 11/29/16 22:17 Dose: 35 unit Insulin Human Regular (Humulin R Med) 0 units SC ACHS WILTON PRN Reason: Protocol Last Admin: 11/30/16 07:02 Dose: 1 units Lisinopril (Zestril) 2.5 mg PO DAILY WILTON PRN Reason: Protocol Lorazepam (Ativan) 1 mg PO BID WILTON PRN Reason: Protocol Last Admin: 11/29/16 18:11 Dose: 1 mg Metformin HCl (Glucophage) 1,000 mg PO 0800,1700 WILTON PRN Reason: Protocol Last Admin: 11/30/16 08:03 Dose: 1,000 mg Metoprolol Tartrate (Lopressor) 50 mg PO 0800,1800 WILTON PRN Reason: Protocol Last Admin: 11/30/16 08:03 Dose: 50 mg Trazodone HCl (Desyrel) 150 mg PO HS WILTON PRN Reason: Protocol Last Admin: 11/29/16 21:41 Dose: 150 mg Verapamil HCl (Calan Tab) 40 mg PO Q8 WILTON PRN Reason: Protocol Last Admin: 11/30/16 05:46 Dose: Not Given Warfarin Sodium (Coumadin) 7.5 mg PO 1800 WILTON PRN Reason: Protocol Last Admin: 11/29/16 18:11 Dose: 7.5 mg - Constitutional Appears: Well, Non-toxic, No Acute Distress - Extremities Exam Additional comments: Vasc: nonpalpable pedal pulses b/l, TG wnl, CFT < 3 sec to all digits, bilateral leg nonpitting edema neuro: grossly diminished derm: nonpitting edema to b/l legs, mild patchhy erythema noted to anterior shins, pre ulcerative lesions to anterolateral resendiz of left leg with scabbing noted, no open lesions, no ascending cellulitis, no fluctuance, no malodor, no acute clinical signs of infection ortho: pain on palpation to bilateral legs - Neurological Exam Neurological Exam: Alert, Awake, Oriented x3 - Psychiatric Exam Psychiatric exam: Normal Affect, Normal Mood Assessment and Plan - Assessment and Plan (Free Text) Assessment: 56 y/o male seen at bedside for bilateral leg erythema and pre ulcerative lesions to left leg Plan: patient evaluated and chart reviewed seen at bedside with attending labs and vitals reviewed; afebrile applied maxorb, optifoam to left leg and left 2nd digit TREVON/PVR bilateral lower extremity .63 L, 1.13 R duplex venous US shows no evidence of DVT Will consult vascular for increased leg pain podiatry will continue to follow while patient remains in house <Leanne Marti - Last Filed: 12/01/16 16:33> Objective - Vital Signs/Intake and Output Vital Signs (last 24 hours): Temp Pulse Resp BP Pulse Ox 98.1 F 65 18 116/65 99 12/01/16 10:00 12/01/16 13:26 12/01/16 10:00 12/01/16 13:26 12/01/16 10:00 Intake and Output: 12/01/16 12/01/16 06:59 18:59 Intake Total 480 Balance 480 - Medications Medications: Current Medications Albuterol/Ipratropium (Duoneb 3 Mg/0.5 Mg (3 Ml) Ud) 3 ml IH [id number] PRN; Protocol PRN Reason: sob/wheezing Digoxin (Lanoxin) 0.25 mg PO DAILY WILTON PRN Reason: Protocol Last Admin: 12/01/16 10:48 Dose: 0.25 mg Enoxaparin Sodium (Lovenox) 100 mg SC Q12H WILTON PRN Reason: Protocol Last Admin: 12/01/16 10:00 Dose: 100 mg Glimepiride (Amaryl) 4 mg PO 0730 WILTON PRN Reason: Protocol Last Admin: 12/01/16 08:14 Dose: 4 mg Sodium Chloride (Sodium Chloride 0.45%) 1,000 mls @ 50 mls/hr IV .Q20H WILTON Stop: 12/05/16 06:00 Insulin Detemir (Levemir) 35 unit SC 1000,2200 WILTON PRN Reason: Protocol Last Admin: 12/01/16 10:49 Dose: 35 unit Insulin Human Regular (Humulin R Med) 0 units SC ACHS WILTON PRN Reason: Protocol Last Admin: 12/01/16 13:27 Dose: 1 units Lisinopril (Zestril) 2.5 mg PO DAILY WILTON PRN Reason: Protocol Last Admin: 12/01/16 10:50 Dose: 2.5 mg Lorazepam (Ativan) 1 mg PO BID WILTON PRN Reason: Protocol Last Admin: 12/01/16 10:43 Dose: 1 mg Metformin HCl (Glucophage) 1,000 mg PO 0800,1700 WILTON PRN Reason: Protocol Last Admin: 11/30/16 17:06 Dose: 1,000 mg Metoprolol Tartrate (Lopressor) 50 mg PO 0800,1800 WILTON PRN Reason: Protocol Last Admin: 12/01/16 08:14 Dose: 50 mg Oxycodone/Acetaminophen (Percocet 5/325 Mg Tab) 1 tab PO Q4H PRN PRN Reason: Pain, moderate (4-7) Stop: 12/04/16 08:49 Last Admin: 12/01/16 12:24 Dose: 1 tab Trazodone HCl (Desyrel) 150 mg PO HS WILTON PRN Reason: Protocol Last Admin: 11/30/16 21:49 Dose: 150 mg Verapamil HCl (Calan Tab) 40 mg PO Q8 WILTON PRN Reason: Protocol Last Admin: 12/01/16 13:26 Dose: 40 mg Warfarin Sodium (Coumadin) 7.5 mg PO 1800 WILTON PRN Reason: Protocol Last Admin: 11/30/16 17:07 Dose: 7.5 mg - Labs Labs: 12/01/16 07:55 12/01/16 07:55 PT 18.4 Seconds (9.9-11.8) H 12/01/16 07:55 INR 1.70 (0.93-1.08) H 12/01/16 07:55 Attending/Attestation - Attestation I have personally seen and examined this patient.: Yes I have fully participated in the care of the patient.: Yes I have reviewed all pertinent clinical information, including history, physical exam and plan: Yes
[2016-11-30] MEDS: Insulin Detemir 100 units/ml Vial (Levemir) SC SCH ×2 (10:50→21:49)
[2016-11-30] MEDS: Digoxin 250 mcg (0.25 mg) Tab PO SCH (10:52)
--- NOTE | 2016-12-01 00:11 | PN ---
DATE: 11/30/2016 SUBJECTIVE: The patient's initial H and P was reviewed and I agreed with the patient. No complaints of any chest pain, shortness of breath, headaches or dizziness. PHYSICAL EXAMINATION: VITAL SIGNS: Temperature is 98, pulse is 69, blood pressure 100/59, respirations 18. GENERAL: The patient is lying in bed, flat, comfortable. HEENT: No oral lesion. Anicteric sclerae. Moist mucosa. NECK: No JVD, adenopathy, or thyromegaly. CARDIOVASCULAR: S1 and S2, regular. No murmurs, rubs, or gallops. LUNGS: Clear to auscultation bilaterally. No wheeze, rales, or rhonchi. ABDOMEN: Bowel sounds are positive, soft, nontender and nondistended. EXTREMITIES: No cyanosis, clubbing or edema. ASSESSMENT: 1. Acute-chronic obstructive pulmonary disease exacerbation, improved. 2. Acute congestive heart failure secondary to systolic dysfunction, improved. 3. Diabetes type 2. 4. Atrial fibrillation, on Coumadin. 5. Peripheral arterial disease. 6. Hypertension. 7. History of thrombectomy of left leg. 8. Noncompliance. PLAN: The patient continues to have pain in the left leg, I will get back to Dr. John Paul Cannon to evaluate the patient. I did speak to Dr. John Paul Cannon regarding the case. The patient does have a history of significant peripheral arterial disease. The patient is on Coumadin. This will be continued. He is subtherapeutic on his INR. I will hold his Coumadin as the patient may require intervention. He is going to continue his verapamil. His blood pressure is acceptable. He is on metformin for his diabetes. I will also hold his metformin as he may require contrast if he has a lower extremity angiogram done. He is on lisinopril for hypertension, and he is going to continue with Levemir for his diabetes. He is on insulin sliding scale. Axel Villagomez MD
--- NOTE | 2016-12-01 03:44 | CON ---
PULMONARY CONSULTATION DATE: 11/30/2016 REFERRING PHYSICIAN: Axel Villagomez MD REASON FOR CONSULT: Chronic obstructive lung disease, obstructive sleep apnea syndrome, pulmonary hypertension, and cardiomyopathy. HISTORY OF PRESENT ILLNESS: This is a 56-year-old gentleman with past medical history significant for chronic obstructive lung disease, obstructive sleep apnea syndrome, cardiomyopathy, pulmonary hypertension, obesity, hypertension, diabetes, history of DVT, history of thromboembolic disease, requiring thrombectomy, came in with heart failure secondary to noncompliance with the medication, apparently there is some issue, could not get the medication, missing Medicare Part D, similar situation with his BiPAP that afford copay's and not getting his BiPAP. He was treated with diuretics, beta-rahat, and anticoagulation improved, presently admitted to [facility] to continue care. Feels okay. No new complaints. Not very compliant with the CPAP and BiPAP. PAST MEDICAL HISTORY: As per history of present illness. ALLERGIES: SEROQUEL. FAMILY HISTORY: No significant cardiopulmonary disease reported. SOCIAL HISTORY: Stopped smoking and alcohol use in the remote past. MEDICATIONS: He is on Amaryl 4 mg daily, also on Ativan 1 mg twice a day, he is on Calan 40 mg q.8 hours, Coumadin 7.5 mg will be given tonight, trazodone 150 mg at bedtime, DuoNeb q.4 hours, metformin 1000 mg twice a day, insulin coverage, digoxin 0.25 mg daily, Levemir 35 units twice a day, metoprolol tartrate 50 mg twice a day, and Zestril 2.5 mg daily. REVIEW OF SYSTEMS: No headache. No rhinitis. Short of breath with exertion. No cough. No sputum production. No nausea, no vomiting, and no diarrhea. Decreased leg swelling. PHYSICAL EXAMINATION: GENERAL: In no acute distress. VITAL SIGNS: Temperature is 98, heart rate 69, respiratory rate is 20, blood pressure 100/59, and pulse ox 96% on room air. HEENT: Moist mucous membrane. Crowded airway. NECK: Supple. No JVD. LUNGS: Has a fair airflow with few rhonchi. HEART: Irregularly irregular. ABDOMEN: Soft and nontender. No organomegaly. EXTREMITIES: There is trace edema. NEUROLOGIC: Awake, alert, and follows simple commands. LABORATORY DATA: Reviewed. No new lab is available since yesterday. IMPRESSION AND PLAN: Cardiomyopathy, pulmonary hypertension, atrial fibrillation, biventricular pacemaker, history of ablation therapy, sleep apnea syndrome, diabetes, hypertension, morbid obesity, and chronic lung disease. Continue bronchodilator, diuretics, beta-rahat, anticoagulation, and INR in the morning. Refusing to use CPAP/BiPAP. The patient is claustrophobic, upon discharge we will try to get him nasal pillow mask. Thank you and we will follow with you. Tia Godinez MD
[2016-12-01] MEDS: Insulin Reg-MEDIUM-Coverage SC SCH ×4 (06:44→22:14)
[2016-12-01 08:02] LABS: BASO # 0.06 K/mm3 (0.0-2.0); BASO % 0.7 % (0.0-3.0); EOS # 0.2 (0.0-0.7); EOS % 2.2 % (1.5-5.0); GRAN # 5.74 (1.4-6.5); GRAN % 71.4 % (50.0-68.0); HEMATOCRIT 38.5 % (42.0-52.0); LYMPH # 1.4 (1.2-3.4); LYMPH % 17.4 % (22.0-35.0); MEAN CELL VOLUME 86.1 fl (80.0-105.0); MEAN CORPUSCULAR HEMOGLOBIN 28.4 pg (25.0-35.0); MEAN PLATELET VOLUME 9.2 fl (7.0-11.0); MONO # 0.7 (0.1-0.6); MONO % 8.3 % (1.0-6.0); RED CELL DISTRIBUTION WIDTH 16.7 % (11.5-14.5); WHITE BLOOD COUNT 8.1 10^3/ul (4.5-11.0)
[2016-12-01 08:13] LABS: INR 1.7 (0.93-1.08)
[2016-12-01 08:30] LABS: ALKALINE PHOSPHATASE 58 U/L (38-126); ALT/SGPT 48 U/L (7-56); AST/SGOT 52 U/L (17-59); BILIRUBIN,TOTAL 0.5 mg/dL (0.2-1.3); BLOOD UREA NITROGEN 15 mg/dL (7-21); CALCIUM 9.3 mg/dL (8.4-10.5); CARBON DIOXIDE 26 mmol/L (21-33); CHLORIDE 104 mmol/L (95-110); GFR AFRICAN-AMERICAN > 60; GLUCOSE,RANDOM 96 mg/dL (70-110); MAGNESIUM 1.6 mg/dL (1.7-2.2); PHOSPHOROUS 4.1 mg/dL (2.5-4.5); POTASSIUM 4.5 mmol/L (3.6-5.0); SODIUM 139 mmol/L (132-148)
[2016-12-01 08:38] LABS: ALB/GLOB RATIO 1.3 (1.1-1.8); TOTAL PROTEIN 6.3 g/dL (5.8-8.3)
[2016-12-01] MEDS: Enoxaparin 100 mg Syringe SC SCH ×2 (10:00→23:00)
--- NOTE | 2016-12-01 10:43 | CP.PCM.PN ---
<Shobha Ceballos - Last Filed: 12/01/16 10:51> Subjective - Date & Time of Evaluation Date of Evaluation: 12/01/16 Time of Evaluation: 10:43 - Subjective Subjective: podiatry progress note for Dr. Stein: 56 yo male seen at bedside for left leg pre ulcerative lesions and bilateral lower extremity erythema. Patient states that he has severe pain in his left lower leg and states that the scab on his left 2nd toe has been there for 6 months. Patient complains of pain in the lower extremities at night which affects his sleep. Patient denies any other pedal complaints at this time. Patient also states that he cannot feel his feet. Patient denies n/f/v/d/c. Objective - Vital Signs/Intake and Output Vital Signs (last 24 hours): Temp Pulse Resp BP Pulse Ox 98.2 F 72 18 115/72 94 L 12/01/16 06:00 12/01/16 08:14 12/01/16 06:00 12/01/16 08:14 12/01/16 06:00 Intake and Output: 12/01/16 12/01/16 06:59 18:59 Intake Total 480 Balance 480 - Medications Medications: Current Medications Albuterol/Ipratropium (Duoneb 3 Mg/0.5 Mg (3 Ml) Ud) 3 ml IH [id number] PRN; Protocol PRN Reason: sob/wheezing Digoxin (Lanoxin) 0.25 mg PO DAILY WILTON PRN Reason: Protocol Last Admin: 11/30/16 10:52 Dose: 0.25 mg Enoxaparin Sodium (Lovenox) 100 mg SC Q12H WILTON PRN Reason: Protocol Glimepiride (Amaryl) 4 mg PO 0730 WILTON PRN Reason: Protocol Last Admin: 12/01/16 08:14 Dose: 4 mg Insulin Detemir (Levemir) 35 unit SC 1000,2200 WILTON PRN Reason: Protocol Last Admin: 11/30/16 21:49 Dose: 35 unit Insulin Human Regular (Humulin R Med) 0 units SC ACHS WILTON PRN Reason: Protocol Last Admin: 12/01/16 06:44 Dose: Not Given Lisinopril (Zestril) 2.5 mg PO DAILY WILTON PRN Reason: Protocol Last Admin: 11/30/16 10:56 Dose: 2.5 mg Lorazepam (Ativan) 1 mg PO BID WILTON PRN Reason: Protocol Last Admin: 11/30/16 17:05 Dose: 1 mg Metformin HCl (Glucophage) 1,000 mg PO 0800,1700 WILTON PRN Reason: Protocol Last Admin: 11/30/16 17:06 Dose: 1,000 mg Metoprolol Tartrate (Lopressor) 50 mg PO 0800,1800 WILTON PRN Reason: Protocol Last Admin: 12/01/16 08:14 Dose: 50 mg Oxycodone/Acetaminophen (Percocet 5/325 Mg Tab) 1 tab PO Q4H PRN PRN Reason: Pain, moderate (4-7) Stop: 12/04/16 08:49 Trazodone HCl (Desyrel) 150 mg PO HS WILTON PRN Reason: Protocol Last Admin: 11/30/16 21:49 Dose: 150 mg Verapamil HCl (Calan Tab) 40 mg PO Q8 WILTON PRN Reason: Protocol Last Admin: 12/01/16 05:46 Dose: 40 mg Warfarin Sodium (Coumadin) 7.5 mg PO 1800 WILTON PRN Reason: Protocol Last Admin: 11/30/16 17:07 Dose: 7.5 mg - Labs Labs: 12/01/16 07:55 12/01/16 07:55 PT 18.4 Seconds (9.9-11.8) H 12/01/16 07:55 INR 1.70 (0.93-1.08) H 12/01/16 07:55 - Constitutional Appears: Well, Non-toxic, No Acute Distress - Extremities Exam Additional comments: Vasc: nonpalpable pedal pulses b/l, TG wnl, CFT < 3 sec to all digits, bilateral leg nonpitting edema neuro: grossly diminished derm: nonpitting edema to b/l legs, mild patchhy erythema noted to anterior shins, pre ulcerative lesions to anterolateral resendiz of left leg with scabbing noted, no open lesions, no ascending cellulitis, no fluctuance, no malodor, no acute clinical signs of infection ortho: pain on palpation to bilateral legs - Neurological Exam Neurological Exam: Alert, Awake, Oriented x3 - Psychiatric Exam Psychiatric exam: Normal Affect, Normal Mood Assessment and Plan - Assessment and Plan (Free Text) Assessment: 56 y/o male seen at bedside for bilateral leg erythema and pre ulcerative lesions to left leg Plan: patient evaluated and chart reviewed discussed in detail with attending Dr. Stein labs and vitals reviewed; afebrile applied maxorb, optifoam to left leg and left 2nd digit TREVON/PVR bilateral lower extremity .63 L, 1.13 R duplex venous US shows no evidence of DVT f/u with vascular consult podiatry will continue to follow while patient remains in house <Tha Stein - Last Filed: 12/02/16 13:39> Objective - Vital Signs/Intake and Output Vital Signs (last 24 hours): Temp Pulse Resp BP Pulse Ox 98.3 F 71 18 129/74 96 12/02/16 10:15 12/02/16 10:29 12/02/16 10:15 12/02/16 10:29 12/02/16 10:15 - Medications Medications: Current Medications Albuterol/Ipratropium (Duoneb 3 Mg/0.5 Mg (3 Ml) Ud) 3 ml IH [id number] PRN; Protocol PRN Reason: sob/wheezing Digoxin (Lanoxin) 0.25 mg PO DAILY WILTON PRN Reason: Protocol Last Admin: 12/02/16 10:29 Dose: 0.25 mg Enoxaparin Sodium (Lovenox) 100 mg SC Q12H WILTON PRN Reason: Protocol Last Admin: 12/01/16 23:00 Dose: 100 mg Glimepiride (Amaryl) 4 mg PO 0730 WILTON PRN Reason: Protocol Last Admin: 12/02/16 08:29 Dose: 4 mg Sodium Chloride (Sodium Chloride 0.45%) 1,000 mls @ 50 mls/hr IV .Q20H WILTON Stop: 12/05/16 06:00 Insulin Detemir (Levemir) 35 unit SC 1000,2200 WILTON PRN Reason: Protocol Last Admin: 12/02/16 10:29 Dose: 35 unit Insulin Human Regular (Humulin R Med) 0 units SC ACHS WILTON PRN Reason: Protocol Last Admin: 12/02/16 11:24 Dose: Not Given Lisinopril (Zestril) 2.5 mg PO DAILY WILTON PRN Reason: Protocol Last Admin: 12/02/16 10:29 Dose: 2.5 mg Lorazepam (Ativan) 1 mg PO BID WILTON PRN Reason: Protocol Last Admin: 12/02/16 10:28 Dose: 1 mg Metformin HCl (Glucophage) 1,000 mg PO 0800,1700 WILTON PRN Reason: Protocol Last Admin: 11/30/16 17:06 Dose: 1,000 mg Metoprolol Tartrate (Lopressor) 50 mg PO 0800,1800 WILTON PRN Reason: Protocol Last Admin: 12/02/16 08:29 Dose: 50 mg Oxycodone/Acetaminophen (Percocet 5/325 Mg Tab) 1 tab PO Q4H PRN PRN Reason: Pain, moderate (4-7) Stop: 12/04/16 08:49 Last Admin: 12/01/16 21:43 Dose: 1 tab Trazodone HCl (Desyrel) 150 mg PO HS WILTON PRN Reason: Protocol Last Admin: 12/01/16 21:44 Dose: 150 mg Verapamil HCl (Calan Tab) 40 mg PO Q8 WILTON PRN Reason: Protocol Last Admin: 12/02/16 06:05 Dose: Not Given Warfarin Sodium (Coumadin) 7.5 mg PO 1800 WILTON PRN Reason: Protocol Last Admin: 11/30/16 17:07 Dose: 7.5 mg - Labs Labs: 12/01/16 07:55 12/01/16 07:55 PT 18.4 Seconds (9.9-11.8) H 12/01/16 07:55 INR 1.70 (0.93-1.08) H 12/01/16 07:55 Attending/Attestation - Attestation I have personally seen and examined this patient.: Yes I have fully participated in the care of the patient.: Yes I have reviewed all pertinent clinical information, including history, physical exam and plan: Yes
[2016-12-01] MEDS: Digoxin 250 mcg (0.25 mg) Tab PO SCH (10:48)
[2016-12-01] MEDS: Insulin Detemir 100 units/ml Vial (Levemir) SC SCH ×2 (10:49→22:14)
[2016-12-01] MEDS: Oxycodone/Acetaminophen 5/325 mg Tab PO PRN ×2 (12:24→21:43)
[2016-12-01] MEDS ORDERED: Magnesium Sulfate 1 gm in D5W 1 GM/100 ML BAG IVPB ONE (18:08)
--- NOTE | 2016-12-01 23:23 | PN ---
DATE: 12/01/2016 LOCATION: The patient is in room 313, bed 1. REASON FOR CONSULTATION: Follow up decompensated congestive heart failure, history of atrial fibrillation status post radiofrequency ablation, status post AICD insertion. The patient is noncompliant with the medication. SUBJECTIVE: The patient lying comfortably in the bed without chest pain or shortness of breath. Denies any palpitations. PHYSICAL EXAMINATION: VITAL SIGNS: Blood pressure 116/65, respirations 18, pulse 65, and temperature 98.1. HEENT: Head is normocephalic. Eyes, pupils normal. Conjunctivae normal. Nose and throat normal. NECK: JVP low. Carotid equal. THORAX: AP diameter normal. LUNGS: Clear. AICD insertion left upper chest, which has healed well. CARDIOVASCULAR: S1 and S2. ABDOMEN: Protuberant. No organomegaly. EXTREMITIES: No clubbing. No cyanosis. LABORATORY DATA: WBC 8.1, hemoglobin 12.7, hematocrit 38.5, and platelet 140. Sodium 139, potassium 4.5, BUN 14, creatinine 0.8, random sugar , magnesium 1.6, calcium 9.3, phosphorus 4.1, AST and ALT normal, total protein is 6.3, albumin 3.5, and globulin 2.8. DIAGNOSES: Morbid obesity, atrial fibrillation, increased body mass index of 38.3 kg/m2, acute decompensated congestive heart failure, acute on chronic left ventricular systolic dysfunction, cardiomyopathy nonischemic, post-cardiac catheterization twice, nonobstructive coronary artery disease, history of radiofrequency ablation status post automated implantable cardioverter-defibrillator insertion, and hypomagnesemia. PLAN: The patient is on Amaryl 4 mg p.o. daily, verapamil 40 mg p.o. q.8 hours, warfarin 7.5 mg p.o. daily, Desyrel 150 mg p.o. at bedtime, DuoNeb hand nebulizer therapy, metformin 1000 mg b.i.d., digoxin 0.25 daily, metoprolol 50 mg b.i.d., Lovenox 100 mg subcutaneous q.12 hours, and Zestril 2.5 mg daily. We will give magnesium therapy and we will repeat labs and the patient will continue physical therapy, and we will follow with you. Tia Cabello MD
--- NOTE | 2016-12-01 23:51 | CON ---
IDENTIFYING INFORMATION: The patient is a 56-year-old white male seen in the transitional care unit where he is being treated for an acute exacerbation of his COPD which has been improving and acute congestive heart failure secondary to systolic dysfunction which has been improving. The patient also has a history of diabetes type 2, atrial fibrillation (is on Coumadin), peripheral arterial disease, hypertension, a history of a thrombectomy of his left leg and also history of noncompliance. The patient is presently on Amaryl, Ativan 1 mg b.i.d., verapamil, Coumadin, trazodone 150 mg at bedtime., Glucophage, insulin, digoxin, Levemir, Lopressor, Lovenox, Zestril. 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 He indicated that in high school, he started smoking marijuana, was left back for 1 year in high school with he noting that he would not go to school a lot (noting also that with the first eight grades of his education, he had gone to a [employer] school which was strict and then going to a public school with less supervision, he ran amuck). He for the first time at age 17 with his marriage lasting for about 1 year. His second marriage at age 20 lasted not much longer (1-1/2 years). Then, a number of years later, he his (to whom he remained for many years - although this was interrupted by a divorce in the middle of it and then a remarriage). According to the patient, that was because his could not handle his sobriety after he stopped abusing a number of substances that he had used earlier in their relationship (this included not only the marijuana that he had used in high school but then alcohol for a number of years and cocaine and on at least one occasion mescaline). The patient has been abstinent for a number of years and attends AA meetings regularly. 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 Thus, the patient has always been industrious and hardworking. However, he found that in the late 1900s and early 1999, he was having trouble focusing and completing tasks and thus saw a psychiatrist at [place] who diagnosed him as having an attention deficit disorder and put him on Ritalin for a brief period of time. The patient, however, felt racy on this and thus stopped after a certain undefined period of time. Subsequent to that, he was feeling coreas, went to see a psychiatrist in [place], Dr. Matt East, who he had seen for a number of years and who had diagnosed the patient as having a bipolar disorder. Dr. East had maintained him on Ativan and trazodone (interestingly, the patient's chart lists him as being ALLERGIC TO SEROQUEL, this is possibly due to a more recent attempt at calming the patient down or may have been started earlier by Dr. East). In any event, the patient has not seen Dr. East in a number of years indicating that he could no longer afford him with insurance changes). The patient had applied for social security disability for a bipolar disorder, and after 3 unsuccessful attempts, did succeed in getting disability for his bipolar disorder, thus the patient has now 2 incomes, 1 from his assisted as a [place] [employer] and the other from his social security disability. The patient's several years ago. He presently resides at home, does not do very much, has had a girlfriend for the past 2 or 3 years. The patient did complain of his lack of sexual prowess, which he attributed to his medications presently. The patient indicated that he has had issues of substance abuse in his siblings. The one sister a number of years ago of a heart attack. His father was also an alcoholic. Presently, the patient is alert, oriented, pleasant, not appeared to be depressed, presented as balding, gold teeth with earrings. The patient carries with him a diagnosis of bipolar disorder (which I do not see) as well as a history of substance use (alcohol, cocaine, cannabis, mescaline). I have given the patient my business card to the extent that he wants followup. Thank you as always for this consultation. Maximino Morales MD/ PhD [facility] # [id number]
--- NOTE | 2016-12-02 00:46 | CON ---
DATE: 11/30/2016 CONSULT SERVICE: Cardiology. REASON FOR THE CONSULTATION: Continuity of care in the transitional care unit, admitted with congestive heart failure, history of defibrillator, history of cardiomyopathy, chronic AFib, and noncompliance with the medications. BRIEF CLINICAL HISTORY: A 56-year-old morbidly obese male with a past medical history significant for COPD; atrial fibrillation, status post radiofrequency ablation, status post AICD, cardiomyopathy; history of DVT, right femoral vein; history of acute limb ischemia, status post thrombectomy, came in with a complaint of chest pain and shortness of breath for 2 to 3 days. The patient needs to be treated in the acute floor. Now, the patient is transferred to transitional care unit for continuity of care. Cardiology consult was called for continuity of care. PAST MEDICAL HISTORY: Significant for DVT, right femoral vein; history of atrial fibrillation, chronic; status post radiofrequency ablation; diabetes; nonischemic cardiomyopathy, status post cardiac catheterization twice; nonobstructive coronary artery disease; COPD; hypertension; hyperlipidemia; left lower acute ischemia; acute thrombus removal, status post thrombectomy; peripheral neuropathy. PAST SURGICAL HISTORY: Significant for gastric bypass, GE reflux, history of cardiac catheterization, outside; coronary artery disease; history of thrombectomy; history of AICD placed. PAST CARDIAC WORKUP: As follows, the patient has recently had a MUGA scan done day before yesterday that showed ejection fraction, LV 43%, normal RV. In comparison to the last study on , slight improvement of LV contractility noted. The patient had a cardiac catheterization 2 to 3 times, at least 2 in the [facility], 11/05/2014 last one, normal coronaries, ejection fraction 50%, EDP was in the range of 30. Medical treatment recommended. The patient was recently sent to the [facility] for radiofrequency ablation, status post AICD placement, history of failed CORA cardioversion, nonobstructive coronary artery disease. The patient's last echocardiography done in [facility] on 08/15/2016, read by Dr. Flowers that shows the left ventricle is mildly dilated, thickened, normal LV function, severely impaired, right ventricle is moderately dilated RV systolic function severely reduced, calculated ejection fraction 24%. Prior to that, the patient had echocardiography on 06/10/2015 that showed normal LV size, LVH with ejection fraction 45%, global hypokinesis noted, trace to mild mitral regurgitation, trace to mild tricuspid regurgitation, RV systolic pressure of 70 dated 06/10/2015. REVIEW OF SYSTEMS: As per HPI. CURRENT MEDICATIONS: The patient at home is very noncompliant, supposed to take trazodone 150, Coumadin 7.5, verapamil 80, metformin 1 g twice a day, lisinopril 20, lorazepam, insulin, Lasix 40 twice a day, digoxin 125, . ALLERGIES: WILD MCCULLOUGH. PHYSICAL EXAMINATION: VITAL SIGNS: Temperature afebrile, heart rate 60, blood pressure 108/64. HEENT: PERRLA. Extraocular muscles intact. NECK: Supple. No carotid bruits or thyromegaly. CHEST: Clear to auscultation. HEART: S1 and S2 regular. ABDOMEN: Soft. EXTREMITIES: Clubbing and cyanosis negative. LABORATORY DATA: Blood workup as follows; WBC is 7.8, hemoglobin 12.4, hematocrit 38, and platelet count 168. Chemistry showed sodium 130, potassium 4.2, chloride 101, carbon dioxide of 28, anion gap of 40, BUN 18, and creatinine 0.8. IMPRESSION: Decompensated congestive heart failure, morbid obesity, diabetes, hyperlipidemia, chronic atrial fibrillation, status post failed transesophageal echocardiography cardioversion, status post automatic implantable cardioverter-defibrillator, radiofrequency ablation, back in atrial fibrillation, morbid obesity, noncompliance with the medication and hypotension. RECOMMENDATIONS: We will decrease verapamil because of the patient's hypotension. Continue digoxin. Continue Coumadin, goal is to keep INR 2. Since the INR is subtherapeutic, continue Lovenox as a bridge until the INR get 2. Decrease the verapamil to 40 because the patient dropped the blood pressure, hypotension. Continue metoprolol of 50 mg twice a day. Continue lisinopril as the blood pressure is tolerated, continue digoxin. We will follow with you. Repeat PT/INR tomorrow. Thank you Dr. Villagomez for providing us the opportunity in taking care of the patient. Tia Rajan MD
[2016-12-02] MEDS: Insulin Reg-MEDIUM-Coverage SC SCH ×4 (06:48→21:26)
[2016-12-02] MEDS: Enoxaparin 100 mg Syringe SC SCH ×2 (08:32→21:15)
--- NOTE | 2016-12-02 09:10 | CP.PCM.PN ---
<An Yarbrough - Last Filed: 12/02/16 09:07> Subjective - Date & Time of Evaluation Date of Evaluation: 12/02/16 Time of Evaluation: 08:25 - Subjective Subjective: Podiatry Progress Note - Dr. Steni 56 year old male patient PMHx DM, CHF, COPD seen at bedside with attending, Dr. Stein, for left leg pre-ulcerative lesions and bilateral lower extremity erythema. Patient seen out of bed and in chair, AAOx3 and NAD. Patient denies any acute events overnight. Patient reports decreased pain to his left leg. Patient denies N/V/F/D/C/SOB. No other pedal complaints at this time. Objective - Vital Signs/Intake and Output Vital Signs (last 24 hours): Temp Pulse Resp BP Pulse Ox 98.1 F 69 18 100/58 L 99 12/01/16 10:00 12/02/16 08:29 12/01/16 10:00 12/02/16 08:29 12/01/16 10:00 - Medications Medications: Current Medications Albuterol/Ipratropium (Duoneb 3 Mg/0.5 Mg (3 Ml) Ud) 3 ml IH [id number] PRN; Protocol PRN Reason: sob/wheezing Digoxin (Lanoxin) 0.25 mg PO DAILY WILTON PRN Reason: Protocol Last Admin: 12/01/16 10:48 Dose: 0.25 mg Enoxaparin Sodium (Lovenox) 100 mg SC Q12H WILTON PRN Reason: Protocol Last Admin: 12/01/16 23:00 Dose: 100 mg Glimepiride (Amaryl) 4 mg PO 0730 WILTON PRN Reason: Protocol Last Admin: 12/02/16 08:29 Dose: 4 mg Sodium Chloride (Sodium Chloride 0.45%) 1,000 mls @ 50 mls/hr IV .Q20H WILTON Stop: 12/05/16 06:00 Insulin Detemir (Levemir) 35 unit SC 1000,2200 WILTON PRN Reason: Protocol Last Admin: 12/01/16 22:14 Dose: 35 unit Insulin Human Regular (Humulin R Med) 0 units SC ACHS WILTON PRN Reason: Protocol Last Admin: 12/02/16 06:48 Dose: Not Given Lisinopril (Zestril) 2.5 mg PO DAILY WILTON PRN Reason: Protocol Last Admin: 12/01/16 10:50 Dose: 2.5 mg Lorazepam (Ativan) 1 mg PO BID WILTON PRN Reason: Protocol Last Admin: 12/01/16 18:02 Dose: 1 mg Metformin HCl (Glucophage) 1,000 mg PO 0800,1700 WILTON PRN Reason: Protocol Last Admin: 11/30/16 17:06 Dose: 1,000 mg Metoprolol Tartrate (Lopressor) 50 mg PO 0800,1800 WILTON PRN Reason: Protocol Last Admin: 12/02/16 08:29 Dose: 50 mg Oxycodone/Acetaminophen (Percocet 5/325 Mg Tab) 1 tab PO Q4H PRN PRN Reason: Pain, moderate (4-7) Stop: 12/04/16 08:49 Last Admin: 12/01/16 21:43 Dose: 1 tab Trazodone HCl (Desyrel) 150 mg PO HS WILTON PRN Reason: Protocol Last Admin: 12/01/16 21:44 Dose: 150 mg Verapamil HCl (Calan Tab) 40 mg PO Q8 WILTON PRN Reason: Protocol Last Admin: 12/02/16 06:05 Dose: Not Given Warfarin Sodium (Coumadin) 7.5 mg PO 1800 WILTON PRN Reason: Protocol Last Admin: 11/30/16 17:07 Dose: 7.5 mg - Labs Labs: 12/01/16 07:55 12/01/16 07:55 PT 18.4 Seconds (9.9-11.8) H 12/01/16 07:55 INR 1.70 (0.93-1.08) H 12/01/16 07:55 - Constitutional Appears: Well, Non-toxic, No Acute Distress - Extremities Exam Additional comments: VASC: nonpalpable pedal pulses b/l, TG wnl, CFT < 3 sec to all digits, bilateral leg nonpitting edema NEURO: grossly diminished DERM: nonpitting edema to b/l legs, mild patchhy erythema noted to anterior shins, pre ulcerative lesions to anterolateral resendiz of left leg with scabbing noted, no open lesions, no ascending cellulitis, no fluctuance, no malodor, no acute clinical signs of infection ORTHO: pain on palpation to bilateral legs - Neurological Exam Neurological Exam: Alert, Awake, Oriented x3 - Psychiatric Exam Psychiatric exam: Normal Affect, Normal Mood Assessment and Plan - Assessment and Plan (Free Text) Assessment: 56 y/o male seen at bedside for bilateral leg erythema and pre ulcerative lesions to left leg Plan: Patient seen and evaluated at bedside with attending, Dr. Stein Chart, vitals, labs reviewed Maxsorb and Optifoam applied to left leg x2 F/U vascular consult Podiatry will continue to follow patient while in house <Tha Stein - Last Filed: 12/02/16 13:43> Objective - Vital Signs/Intake and Output Vital Signs (last 24 hours): Temp Pulse Resp BP Pulse Ox 98.3 F 71 18 129/74 96 12/02/16 10:15 12/02/16 10:29 12/02/16 10:15 12/02/16 10:29 12/02/16 10:15 - Medications Medications: Current Medications Albuterol/Ipratropium (Duoneb 3 Mg/0.5 Mg (3 Ml) Ud) 3 ml IH [id number] PRN; Protocol PRN Reason: sob/wheezing Digoxin (Lanoxin) 0.25 mg PO DAILY WILTON PRN Reason: Protocol Last Admin: 12/02/16 10:29 Dose: 0.25 mg Enoxaparin Sodium (Lovenox) 100 mg SC Q12H WILTON PRN Reason: Protocol Last Admin: 12/01/16 23:00 Dose: 100 mg Glimepiride (Amaryl) 4 mg PO 0730 WILTON PRN Reason: Protocol Last Admin: 12/02/16 08:29 Dose: 4 mg Sodium Chloride (Sodium Chloride 0.45%) 1,000 mls @ 50 mls/hr IV .Q20H WILTON Stop: 12/05/16 06:00 Insulin Detemir (Levemir) 35 unit SC 1000,2200 WILTON PRN Reason: Protocol Last Admin: 12/02/16 10:29 Dose: 35 unit Insulin Human Regular (Humulin R Med) 0 units SC ACHS WILTON PRN Reason: Protocol Last Admin: 12/02/16 11:24 Dose: Not Given Lisinopril (Zestril) 2.5 mg PO DAILY WILTON PRN Reason: Protocol Last Admin: 12/02/16 10:29 Dose: 2.5 mg Lorazepam (Ativan) 1 mg PO BID WILTON PRN Reason: Protocol Last Admin: 12/02/16 10:28 Dose: 1 mg Metformin HCl (Glucophage) 1,000 mg PO 0800,1700 WILTON PRN Reason: Protocol Last Admin: 11/30/16 17:06 Dose: 1,000 mg Metoprolol Tartrate (Lopressor) 50 mg PO 0800,1800 WILTON PRN Reason: Protocol Last Admin: 12/02/16 08:29 Dose: 50 mg Oxycodone/Acetaminophen (Percocet 5/325 Mg Tab) 1 tab PO Q4H PRN PRN Reason: Pain, moderate (4-7) Stop: 12/04/16 08:49 Last Admin: 12/01/16 21:43 Dose: 1 tab Trazodone HCl (Desyrel) 150 mg PO HS WILTON PRN Reason: Protocol Last Admin: 12/01/16 21:44 Dose: 150 mg Verapamil HCl (Calan Tab) 40 mg PO Q8 WILTON PRN Reason: Protocol Last Admin: 12/02/16 06:05 Dose: Not Given Warfarin Sodium (Coumadin) 7.5 mg PO 1800 WILTON PRN Reason: Protocol Last Admin: 11/30/16 17:07 Dose: 7.5 mg - Labs Labs: 12/01/16 07:55 12/01/16 07:55 PT 18.4 Seconds (9.9-11.8) H 12/01/16 07:55 INR 1.70 (0.93-1.08) H 12/01/16 07:55 Attending/Attestation - Attestation I have personally seen and examined this patient.: Yes I have fully participated in the care of the patient.: Yes I have reviewed all pertinent clinical information, including history, physical exam and plan: Yes
[2016-12-02] MEDS: Digoxin 250 mcg (0.25 mg) Tab PO SCH (10:29)
[2016-12-02] MEDS: Insulin Detemir 100 units/ml Vial (Levemir) SC SCH ×2 (10:29→21:45)
[2016-12-02] MEDS: Oxycodone/Acetaminophen 5/325 mg Tab PO PRN (21:14)
--- NOTE | 2016-12-02 23:14 | PN ---
PULMONARY PROGRESS NOTE DATE: 12/02/2016 REFERRING PHYSICIAN: Axel Villagomez MD SUBJECTIVE: He is on out of bed to chair. Night was unremarkable. BiPAP. No nausea. No vomiting. No diarrhea. Had some varicose vein and edema of the lower extremity. Has a dressing with an ulcer on the left lower extremity. PHYSICAL EXAMINATION: GENERAL: No acute distress. VITAL SIGNS: Temperature is 98, heart rate 69, respiratory rate is 18, blood pressure 129/74, pulse ox is 96% on room air. HEENT: Moist mucous membrane. Crowded airway. Mallampati score is IV. NECK: Supple. No JVD. LUNGS: Has a few scattered rhonchi. HEART: S1 and S2. ABDOMEN: Soft and nontender. No organomegaly. EXTREMITIES: Does have some edema. Nonhealing ulcer on the left lower extremity, also has some varicose. NEUROLOGIC: Awake, alert. Follows simple command. MEDICATIONS: Amaryl 4 mg daily, Ativan 1 mg twice a day, Calan 40 mg q.8 hours., Coumadin 7.5 mg which is placed on hold, trazodone 150 mg bedtime, DuoNeb q.6 hours, Glucophage is 1000 mg twice a day which is also placed on hold, insulin coverage, digoxin 0.25 mg daily, Levemir 35 units twice a day, metoprolol tartrate 50 mg twice a day, Lovenox 100 mg subcutaneous twice a day, Percocet 5/325 mg one tablet q.4 hours p.r.n., IV fluid half normal saline 50 mL per hour, and Zestril 2.5 mg daily. LABORATORY DATA: Reviewed and noted. Today's blood sugar is 54, magnesium is 1.5. IMPRESSION AND PLAN: Cardiomyopathy, pulmonary hypertension, atrial fibrillation status post ablation therapy, biventricular pacemaker, sleep apnea syndrome, diabetes, hypertension, morbid obesity, chronic lung disease, peripheral vascular disease with nonhealing left lower extremity ulcer, also has varicose veins. Requested the patient to elevate the lower extremity. Encourage BiPAP use. Keep head at 45 degrees. Bronchodilator, beta-blockers, and diuretics. Awaiting for peripheral angiography tomorrow. Sleep apnea precaution. Careful with sedation. Keep close cardiopulmonary monitoring if sedated. Thank you, and we will follow up with you. Tia Godinez MD [facility] # [id number]
--- NOTE | 2016-12-03 03:02 | PN ---
DATE: SUBJECTIVE: The patient is a 56 years old seen and examined, sitting in chair, seems to be comfortable. Denies any chest pain. No shortness of breath. Eating and tolerating. PHYSICAL EXAMINATION: VITAL SIGNS: He is afebrile, pulse 70, respirations 18, blood pressure 117/67. LUNGS: Bilateral fair air flow. No rhonchi or crackle. HEART: S1 and S2 audible. ABDOMEN: Soft and nontender. No rebound. Obese. EXTREMITIES: Bilateral leg +2 edema, has wound on both shins. LABORATORY EXAMINATION: Blood sugar is 54. ASSESSMENT: 1. Chronic atrial fibrillation. 2. Congestive heart failure. 3. Morbid obesity. 4. Acute on chronic left ventricular dysfunction. 5. Nonischemic cardiomyopathy status post automatic implantable cardioverter-defibrillator placement. 6. History of bipolar disorder. 7. Renal insufficiency. PLAN: The patient is currently on IV fluid. He is scheduled for bilateral leg angioplasty on Sunday. Monitor his blood sugar. He is currently on Coumadin, that was held and he will be more likely on Lovenox that will be given up until tomorrow morning and he is being prepped for angiography on Sunday. Ridge Velazquez MD
--- NOTE | 2016-12-03 04:27 | PN ---
DATE: REASON FOR THE CONSULTATION: Followup decompensated congestive heart failure, chronic atrial fibrillation, status post radiofrequency ablation, status post AICD. Continuity of care in transitional care unit. Noncompliance with medication. SUBJECTIVE: Denies chest pain, shortness of breath, or any palpitation. OBJECTIVE: GENERAL: Sitting in a wheelchair, not in apparent distress. VITAL SIGNS: Temperature afebrile, heart rate 71, and blood pressure 120/76. HEENT: PERRLA. Extraocular muscles intact. NECK: Supple. No carotid bruits or thyromegaly. CHEST: Clear to auscultation. HEART: S1 and S2 regular. ABDOMEN: Soft. EXTREMITIES: Clubbing and cyanosis negative. LABORATORY DATA: Blood workup as follows: WBC 8.1, hemoglobin 12.7, hematocrit 38.5, and platelet count 140. Chemistry shows sodium 139, potassium 4.5, chloride 104, carbon dioxide 26, anion gap of 14, BUN of 15, and creatinine 0.7. IMPRESSION: A 56-year-old morbidly obese male with past medical history significant for atrial fibrillation, failed transesophageal echocardiogram cardioversion in the past, status post radiofrequency ablation, status post automated implantable cardioverter-defibrillator, morbid obesity, noncompliance with medications, decompensated congestive heart failure. The patient recently had a MUGA scan done; ejection fraction 43%, nonischemic cardiomyopathy, status post cardiac catheterization 2-3 times, normal coronaries. INR today is 1.7 as of yesterday. RECOMMENDATION: Continue verapamil. Continue Coumadin. Monitor INR. Continue digoxin and metoprolol. Continue Lovenox. Peripheral angiogram. Coumadin on hold. Repeat the lab in the morning. We will follow with you. Tia Rajan MD
[2016-12-03] MEDS: Insulin Reg-MEDIUM-Coverage SC SCH ×4 (06:42→22:40)
[2016-12-03] MEDS: Enoxaparin 100 mg Syringe SC SCH (08:33)
[2016-12-03] MEDS: Digoxin 250 mcg (0.25 mg) Tab PO SCH (10:28)
[2016-12-03] MEDS: Insulin Detemir 100 units/ml Vial (Levemir) SC SCH ×2 (10:29→22:41)
--- NOTE | 2016-12-03 11:30 | CP.PCM.PN ---
Subjective - Date & Time of Evaluation Date of Evaluation: 12/03/16 Time of Evaluation: 11:30 - Subjective Subjective: Podiatry Progress Note - Dr. Marti 56 year old male patient PMHx DM, CHF, COPD seen at bedside for left leg pre- ulcerative lesions and bilateral lower extremity erythema. Patient seen out of bed and in chair, AAOx3 and NAD. Patient denies any acute events overnight. Patient reports continued 8/10 pain to distal leg wounds, same as yesterday. Patient states he is to have vascular procedure tomorrow at 15:00. Patient denies N/V/F/D/C/SOB. No other pedal complaints at this time. Objective - Vital Signs/Intake and Output Vital Signs (last 24 hours): Temp Pulse Resp BP Pulse Ox 98.3 F 69 18 104/61 96 12/03/16 10:25 12/03/16 10:29 12/03/16 10:25 12/03/16 10:29 12/03/16 10:25 - Medications Medications: Current Medications Albuterol/Ipratropium (Duoneb 3 Mg/0.5 Mg (3 Ml) Ud) 3 ml IH [id number] PRN; Protocol PRN Reason: sob/wheezing Digoxin (Lanoxin) 0.25 mg PO DAILY WILTON PRN Reason: Protocol Last Admin: 12/03/16 10:28 Dose: 0.25 mg Enoxaparin Sodium (Lovenox) 100 mg SC Q12H WILTON PRN Reason: Protocol Last Admin: 12/03/16 08:33 Dose: 100 mg Glimepiride (Amaryl) 4 mg PO 0730 WILTON PRN Reason: Protocol Last Admin: 12/03/16 08:33 Dose: 4 mg Sodium Chloride (Sodium Chloride 0.45%) 1,000 mls @ 50 mls/hr IV .Q20H WILTON Stop: 12/05/16 06:00 Insulin Detemir (Levemir) 35 unit SC 1000,2200 WILTON PRN Reason: Protocol Last Admin: 12/03/16 10:29 Dose: 35 unit Insulin Human Regular (Humulin R Med) 0 units SC ACHS WILTON PRN Reason: Protocol Last Admin: 12/03/16 06:42 Dose: Not Given Lisinopril (Zestril) 2.5 mg PO DAILY WILTON PRN Reason: Protocol Last Admin: 12/03/16 10:29 Dose: 2.5 mg Lorazepam (Ativan) 1 mg PO BID WILTON PRN Reason: Protocol Last Admin: 12/03/16 10:28 Dose: 1 mg Metformin HCl (Glucophage) 1,000 mg PO 0800,1700 WILTON PRN Reason: Protocol Last Admin: 11/30/16 17:06 Dose: 1,000 mg Metoprolol Tartrate (Lopressor) 50 mg PO 0800,1800 WILTON PRN Reason: Protocol Last Admin: 12/03/16 08:33 Dose: 50 mg Oxycodone/Acetaminophen (Percocet 5/325 Mg Tab) 1 tab PO Q4H PRN PRN Reason: Pain, moderate (4-7) Stop: 12/04/16 08:49 Last Admin: 12/02/16 21:14 Dose: 1 tab Trazodone HCl (Desyrel) 150 mg PO HS WILTON PRN Reason: Protocol Last Admin: 12/02/16 21:15 Dose: 150 mg Verapamil HCl (Calan Tab) 40 mg PO Q8 WILTON PRN Reason: Protocol Last Admin: 12/03/16 05:32 Dose: Not Given Warfarin Sodium (Coumadin) 7.5 mg PO 1800 WILTON PRN Reason: Protocol Last Admin: 11/30/16 17:07 Dose: 7.5 mg - Labs Labs: 12/01/16 07:55 12/01/16 07:55 PT 18.4 Seconds (9.9-11.8) H 12/01/16 07:55 INR 1.70 (0.93-1.08) H 12/01/16 07:55 - Constitutional Appears: Well, Non-toxic, No Acute Distress - Extremities Exam Additional comments: VASC: nonpalpable pedal pulses b/l, TG wnl, CFT < 3 sec to all digits, bilateral leg nonpitting edema NEURO: grossly diminished DERM: nonpitting edema to b/l legs, mild patchy erythema noted to anterior shins , pre ulcerative lesions to anterolateral resendiz of left leg with scabbing noted, no open lesions, no ascending cellulitis, no fluctuance, no malodor, no acute clinical signs of infection. Superficial wound noted to R knee with granular base, macerated rim, and surrounding erythema periwound - no fluctuance, malodor , purulence noted to wound. ORTHO: Pain on palpation noted to anterolateral resendiz preulcerative lesions - Neurological Exam Neurological Exam: Alert, Awake, Oriented x3 - Psychiatric Exam Psychiatric exam: Normal Affect, Normal Mood Assessment and Plan - Assessment and Plan (Free Text) Assessment: 56 y/o male seen at bedside for bilateral leg erythema and pre ulcerative lesions to left leg Plan: Patient seen and evaluated at bedside Discussed with attending, Dr. Marti Chart, vitals, labs reviewed Maxsorb and Optifoam applied to left leg x2 Patient is scheduled for peripheral angiography tomorrow, Sunday12/04/16 Podiatry will continue to follow patient while in house
--- NOTE | 2016-12-03 15:01 | PN ---
DATE: 12/03/2016 REASON FOR CONSULTATION: Followup decompensated congestive heart failure, [id number] systolic dysfunction, chronic atrial fibrillation status post AICD. Continuity of care in transitional care unit. SUBJECTIVE: Denies any chest pain, shortness of breath, or any palpitation. PHYSICAL EXAMINATION GENERAL: Sitting in the chair, not in apparent distress. VITAL SIGNS: Temperature afebrile, heart rate 69, and blood pressure 104/65. HEENT: PERRLA. Extraocular muscles intact. NECK: Supple. No carotid bruits or thyromegaly. CHEST: Clear to auscultation. HEART: S1 and S2 regular. ABDOMEN: Soft. EXTREMITIES: Clubbing and cyanosis negative. LABORATORY DATA: Blood workup as follows: WBC 8.1, hemoglobin 12.7, hematocrit 38.5, and platelet count 140. Chemistry shows as of 12/01/2016 sodium 139, potassium 4.5, chloride 104, carbon dioxide 26, anion gap of 14, BUN of 15, and creatinine 0.8. IMPRESSION: A 56-year-old morbidly obese male with past medical history significant for atrial fibrillation, failed transesophageal echocardiogram cardioversion in the past, status post radiofrequency ablation, status post automated defibrillator, morbid obesity, decompensated congestive heart failure, noncompliance with medications admitted with decompensated congestive heart failure, [id number] systolic dysfunction, nonischemic cardiomyopathy, MUGA scan 43%, history of peripheral artery disease scheduled for peripheral angiogram. Off Coumadin. Last INR is 1.7. History of deep venous thrombosis, history of acute thrombus removal from the left lower extremity, acute deep venous thrombosis of right lower leg. RECOMMENDATION: Repeat the blood workup tomorrow. Possible peripheral angiogram and intervention tomorrow. Tia Rajan MD
[2016-12-03] MEDS: Oxycodone/Acetaminophen 5/325 mg Tab PO PRN ×2 (15:04→22:41)
[2016-12-03] MEDS: Sodium Chloride 0.45% 1,000 ML IV SCH (18:12)
[2016-12-04] MEDS: Insulin Reg-MEDIUM-Coverage SC SCH ×2 (06:47→13:05)
[2016-12-04 07:35] LABS: HEMATOCRIT 39.4 % (42.0-52.0); MEAN CELL VOLUME 87.4 fl (80.0-105.0); MEAN CORPUSCULAR HEMOGLOBIN 28.4 pg (25.0-35.0); MEAN CORPUSCULAR HGB CONC 32.5 g/dl (31.0-37.0); MEAN PLATELET VOLUME 9.8 fl (7.0-11.0); RED CELL DISTRIBUTION WIDTH 16.6 % (11.5-14.5); WHITE BLOOD COUNT 6.7 10^3/ul (4.5-11.0)
[2016-12-04 07:39] LABS: INR 1.18 (0.93-1.08)
[2016-12-04 08:17] LABS: ALB/GLOB RATIO 1.4 (1.1-1.8); ALKALINE PHOSPHATASE 58 U/L (38-126); ALT/SGPT 81 U/L (7-56); AST/SGOT 78 U/L (17-59); BILIRUBIN,TOTAL 0.4 mg/dL (0.2-1.3); BLOOD UREA NITROGEN 17 mg/dL (7-21); CALCIUM 9.3 mg/dL (8.4-10.5); CARBON DIOXIDE 31 mmol/L (21-33); CHLORIDE 102 mmol/L (98-107); GFR AFRICAN-AMERICAN > 60; GLUCOSE,RANDOM 102 mg/dL (70-110); POTASSIUM 4.4 mmol/L (3.6-5.0); SODIUM 142 mmol/L (132-148); TOTAL PROTEIN 6.2 g/dL (5.8-8.3)
--- NOTE | 2016-12-04 08:17 | PN ---
DATE: 12/04/2016 SUBJECTIVE: The patient has no complaints of any chest pain, no shortness of breath, no headache, no dizziness. PHYSICAL EXAMINATION: VITAL SIGNS: Temperature is 97.9, pulse of 69, blood pressure is 106/72, and respirations 18. GENERAL: The patient is lying in bed, flat, comfortable. HEENT: No oral lesion. Anicteric sclerae. Moist mucosa. NECK: No JVD, adenopathy, or thyromegaly. CARDIOVASCULAR: S1 and S2, regular. No murmurs, rubs, or gallops. LUNGS: Clear to auscultation bilaterally. No wheeze, rales, or rhonchi. ABDOMEN: Bowel sounds are positive, soft, nontender and nondistended. EXTREMITIES: No cyanosis, clubbing or edema. LABORATORY DATA: White count of 8.1, hemoglobin 12.7, creatinine 0.8. ASSESSMENT: 1. Left leg pain. 2. Peripheral arterial disease. 3. Acute chronic obstructive pulmonary disease, resolved. 4. Acute congestive heart failure secondary to systolic dysfunction, resolved. 5. Diabetes type 2. 6. Atrial fibrillation, on anticoagulation. 7. Hypertension. 8. No noncompliant. 9. History of left leg thrombectomy. PLAN: The patient is being followed by Dr. Marti. The patient continues to have significant pain. He is scheduled for an angiogram of the legs today by Dr. John Paul Cannon. He did have a history of significant peripheral arterial disease and an acute ischemia secondary to his peripheral arterial disease that was treated a few months ago. The patient is currently on IV fluids, hydration. The patient is on Amaryl for his diabetes. He is on verapamil for his atrial fibrillation, this has been lowered. His blood pressure is controlled. His metformin has been on hold. His Coumadin has been on hold for his procedure. He is receiving trazodone daily. He is receiving digoxin for his atrial fibrillation. He is on Levemir for his diabetes. The patient is on Lovenox for anticoagulation, but this has been placed on hold as well. The last INR 3 days ago was 1.7. The patient is on lisinopril for hypertension. He is on a heart-healthy diet. Axel Villagomez MD [facility] # [id number]
--- NOTE | 2016-12-04 08:28 | PN ---
PULMONARY PROGRESS NOTE DATE: 12/01/2016 REFERRING PHYSICIAN: Axel Villagomez MD SUBJECTIVE: He is sitting up in a chair. Night was unremarkable. Feels better. No chest pain. No nausea. No vomiting. Does have increased leg swelling. Did not use CPAP last night. OBJECTIVE: GENERAL: In no acute distress. VITAL SIGNS: Temperature is 98, heart rate is 68, respiratory rate is 18, blood pressure 116/79, and pulse of 99% on room air. HEENT: Moist mucous membranes. Crowded airway. Mallampati score IV. NECK: Supple. No JVD. LUNGS: Few scattered rhonchi. HEART: S1 and S2. ABDOMEN: Soft, nontender. No organomegaly. EXTREMITIES: Does have edema. NEUROLOGICAL: Awake and alert. Follows simple commands. SKIN: Has a left lower extremity known healing ulcer. MEDICATIONS: He is on Amaryl 4 mg daily, Ativan 1 mg twice a day, 40 mg q.8 hours, Coumadin 7.5 mg, which is on hold, trazodone 150 mg, albuterol nebulizer q.4 hours p.r.n., metformin 1000 mg twice a day, insulin coverage, digoxin 0.25 mg daily, Levemir 35 units subcutaneous twice a day, metoprolol tartrate 50 mg twice a day, Lovenox 100 mg subcutaneous twice a day, oxycodone 1 tablet q.4 hours p.r.n., IV fluid of normal saline 50 mL per hour, and Zestril 2.5 mg daily. LABORATORY DATA: Shows hemoglobin 12.7, hematocrit 38.5, WBC 8.1, and platelet count is 140. INR 1.70. Sodium 130, potassium 4.5, chloride 104, bicarbonate 26, BUN 15, creatinine 0.5, glucose 166, calcium 9.3, phosphorus 4.1, and magnesium 1.6. AST 52, ALT 48, alkaline phosphatase is 58, and TSH 1.56. IMPRESSION AND PLAN: Cardiomyopathy, pulmonary hypertension, atrial fibrillation status post ablation therapy, biventricular pacemaker, diabetes, hypertension, morbid obesity, chronic lung disease, history of thromboembolic disease requiring thrombectomy, and has peripheral vascular disease seen by Dr. John Paul Cannon. Today, scheduled for lower extremity angiography. Pulmonary point of view, encouraged bilevel positive airway pressure use. If sedated, needs closed cardiopulmonary monitor. Sleep apnea precaution. Gastric prophylaxis. Fall precaution. Thank you and we will follow with you. Tia Godinez MD
--- NOTE | 2016-12-04 09:31 | PN ---
SUBJECTIVE: The patient is 56 years old, seen and examined, sitting in chair, seems to be comfortable, not in any distress. PHYSICAL EXAMINATION VITAL SIGNS: She is afebrile, pulse 61, respirations 18 and blood pressure 124/68. LUNGS: Bilateral good airflow. No rhonchi or crackle. HEART: S1 and S2 audible. ABDOMEN: Soft, obese, nontender. No rebound. No guarding. NEUROLOGICALLY: The patient is awake and alert, able to communicate. EXTREMITIES: Bilateral legs, he has ulcers that are dressed. Bilateral leg +1 edema. LABORATORY EXAM: Blood sugar is 62. ASSESSMENT: 1. Morbid obesity. 2. Bipolar disorder. 3. Obstructive sleep apnea. 4. Chronic atrial fibrillation. 5. Congestive heart failure, stable. 6. Nonischemic cardiomyopathy, status post defibrillator placement. 7. Renal insufficiency. 8. Peripheral vascular disease. PLAN: The patient's Coumadin is on hold. He has received Lovenox, last dose this morning. He is scheduled for angioplasty in a.m. He is getting IV fluid. Blood sugar is being monitored. Ridge Velazquez MD
--- NOTE | 2016-12-04 09:42 | PN ---
DATE: 12/03/2016 PULMONARY PROGRESS NOTE REFERRING PHYSICIAN: Axel Villagomez MD SUBJECTIVE: The patient is lying in the bed, head up at 45 degrees. Night was unremarkable. No headache. No rhinitis. No cough. No sputum production. No nausea or vomiting. No diarrhea. Left lower extremities has some tenderness with nonhealing ulcer, has some edema. OBJECTIVE: GENERAL: In no acute distress. VITAL SIGNS: Temperature is 98, heart rate is 76, respiratory rate is 18, blood pressure 112/70, pulse ox 94% on room air. HEENT: Moist mucous membranes and crowded airway. NECK: Supple. No JVD. CARDIOPULMONARY: S1 and S2. LUNGS: Lungs have a fair airflow with few rhonchi. ABDOMEN: Soft and nontender. No organomegaly. EXTREMITIES: Does have edema, left leg has a nonhealing ulcer with dressing. NEUROLOGIC: Awake and alert. Follows simple commands. MEDICATIONS: Amaryl 4 mg daily, Ativan 1 mg twice a day, Calan 40 mg q. 8 hours, Coumadin 7.5 mg daily, trazodone 50 mg daily, albuterol Atrovent nebulizer q. 4 hours p.r.n., metformin 1000 mg twice a day, insulin coverage, digoxin 0.25 mg daily, Levemir 25 units twice a day, metoprolol tartrate 50 mg twice a day, Lovenox 100 mg subcutaneous q. 12 hours, Percocet 5/325 one tablet q. 4 hours p.r.n., IV fluid half normal saline 50 mL/hour and Zestril 2.5 mg daily. LABORATORY DATA: Reviewed and shows blood sugar today 79. IMPRESSION AND PLAN: Cardiomyopathy, pulmonary hypertension, atrial fibrillation, status post ablation therapy, biventricular pacemaker, sleep apnea syndrome, diabetes, hypertension, morbid obesity, chronic lung disease, peripheral vascular disease, nonhealing left lower extremity ulcer,varicose veins. Pulmonary point of view, is doing okay. Sleep apnea precaution. If sedated, close cardiopulmonary monitoring. Schedule for lower extremity angio tomorrow. Continue bronchodilator and diuretics. Need followup BUN and creatinine. Thank you, and we will follow up with you. Tia Godinez MD
[2016-12-04] MEDS: Digoxin 250 mcg (0.25 mg) Tab PO SCH (11:28)
[2016-12-04] MEDS: Insulin Detemir 100 units/ml Vial (Levemir) SC SCH (11:29)
--- NOTE | 2016-12-04 13:01 | PN ---
DATE: 12/04/2016 LOCATION: The patient in room 313, bed 1. REASON FOR CONSULTATION: Followup with decompensated congestive heart failure, acute on chronic LV systolic dysfunction, chronic atrial fibrillation, status post AICD insertion, deconditioning. SUBJECTIVE: The patient sitting in chair without any cardiac symptoms like chest pain, shortness of breath or palpitation. PHYSICAL EXAMINATION: VITAL SIGNS: Blood pressure 122/80, respirations 18, pulse 69, temperature 97.7. HEENT: Head is normocephalic. Eyes, pupils normal. Conjunctivae normal. Nose and throat normal. NECK: JVP low. Carotid equal. THORAX: AP diameter normal. LUNGS: Clear. CARDIOVASCULAR: S1 and S2. ABDOMEN: Soft, nontender. No organomegaly. Bowel sounds are normal. EXTREMITIES: No clubbing. No cyanosis. LABORATORY DATA: Shows WBC 6.7, hemoglobin 12.8, hematocrit 39.4, and platelet 154. Sodium 142, potassium 4.4, BUN 17, creatinine 0.8, random sugar 102, AST 78, ALT 81. Total protein and albumin normal. DIAGNOSES: Atrial fibrillation, status post radiofrequency ablation, status post automated implantable cardioverter-defibrillator insertion, morbid obesity, decompensated congestive heart failure with acute on chronic left ventricular systolic failure, noncompliance of the patient with medication. MUGA scan, ejection fraction 43%. History of peripheral vascular disease. Scheduled for peripheral angiogram. History of deep venous thrombosis, history of acute thrombus removal from the left lower extremity, acute deep venous thrombosis of the right lower leg. PLAN: The patient's prothrombin time is 12.7, INR 1.18. The patient is being considered for peripheral angiogram. In the meantime, the patient getting sodium chloride 50 mL an hour, Amaryl 4 mg p.o. daily, Ativan 1 mg b.i.d., verapamil 40 mg q. 8 hours, the patient's warfarin had been on hold, Desyrel 150 mg p.o. at bedtime, DuoNeb hand nebulizer therapy, metformin 1000 mg p.o. b.i.d., digoxin 0.25 mg p.o. daily, insulin detemir 30 units subcutaneous b.i.d., metoprolol 50 mg b.i.d., Lovenox 100 mg subcutaneous q. 12 hours, lisinopril 2.5 mg daily. We will continue to do the physical therapy, and we will continue present medication, and we will follow with you. Tia Cabello MD
[2016-12-04] MEDS: Sodium Chloride 0.45% 1,000 ML IV SCH (13:55)
[2016-12-04] MEDS ORDERED: Heparin 25,000units in D5W 25,000 UNITS/250 ML BAG IV PRN (17:45)
[2016-12-05] MEDS: Insulin Reg-MEDIUM-Coverage SC SCH ×6 (00:05→21:47)
[2016-12-05] MEDS: Insulin Detemir 100 units/ml Vial (Levemir) SC SCH ×3 (00:06→21:47)
--- NOTE | 2016-12-05 03:31 | PN ---
DATE: 12/04/2016 REFERRING PHYSICIAN: Axel Villagomez MD SUBJECTIVE: He is out of bed to reclining chair. Awaiting for arterial studies done. No cough, no sputum production. No nausea, no vomiting, no diarrhea. Does have leg swelling. Nonhealing left leg ulcer. OBJECTIVE: GENERAL: In no acute distress. VITAL SIGNS: Temperature is 98, heart rate is 70, respiratory rate is 20, blood pressure 124/81, pulse ox 94% on room air. HEENT: Moist mucous membranes. Crowded airway. Mallampati score is 4. NECK: Supple. No JVD. HEART: S1, S2. LUNGS: Fair air flow with few rhonchi. ABDOMEN: Soft, nontender. No organomegaly. EXTREMITIES: Does have edema. Left leg has a nonhealing ulcer. NEUROLOGIC: Awake. Does follow simple command. LABORATORY DATA: Shows hemoglobin 12.8, hematocrit 39.4, WBC 6.7, platelet is 154. INR is 1.18. Sodium 142, potassium 4.4, chloride 102, bicarbonate 31, BUN 17, creatinine 0.8, glucose 102, calcium 9.3, AST 78, ALT 81, alkaline phosphatase is 58, albumin is 3.6. MEDICATIONS: He is on Amaryl 4 mg daily, Ativan 1 mg twice a day, Calan 40 mg q. 8 hours, Coumadin 7.5 mg at bedtime on hold but will receive tonight, trazodone 150 mg daily, DuoNeb q. 6 hours, metformin 1000 mg twice a day, heparin weight-based protocol started, digoxin 0.25 mg daily, Levemir 30 units subcu twice a day, metoprolol tartrate 50 mg twice a day, Lovenox is on hold, Zestril 2.5 mg daily. IMPRESSION AND PLAN: Cardiomyopathy; pulmonary hypertension; atrial fibrillation, status post ablation therapy; biventricular pacemaker; sleep apnea syndrome; diabetes; hypertension; morbid obesity; chronic lung disease; peripheral vascular disease; nonhealing left lower extremity ulcer; varicose vein. Pulmonary point of view doing okay. Encourage BiPAP use. Keep head at 45 degrees. Bronchodilator, beta blockers, diuretics, anticoagulation. Awaiting for peripheral vascular study. Thank you and we will follow with you. Tia Godinez MD [facility] # [id number]
[2016-12-05 08:06] LABS: HEMATOCRIT 37.5 % (42.0-52.0); MEAN CELL VOLUME 85.4 fl (80.0-105.0); MEAN CORPUSCULAR HEMOGLOBIN 28.9 pg (25.0-35.0); MEAN CORPUSCULAR HGB CONC 33.9 g/dl (31.0-37.0); MEAN PLATELET VOLUME 9.6 fl (7.0-11.0); RED CELL DISTRIBUTION WIDTH 16.2 % (11.5-14.5); WHITE BLOOD COUNT 8.1 10^3/ul (4.5-11.0)
[2016-12-05 08:16] LABS: INR 1.17 (0.93-1.08); PARTIAL THROMBOPLASTIN TIME 49.2 Seconds (23.7-30.8)
[2016-12-05 08:30] LABS: BLOOD UREA NITROGEN 14 mg/dL (7-21); CALCIUM 9.1 mg/dL (8.4-10.5); CARBON DIOXIDE 28 mmol/L (21-33); CHLORIDE 103 mmol/L (98-107); GFR AFRICAN-AMERICAN > 60; GLUCOSE,RANDOM 181 mg/dL (70-110); POTASSIUM 4.2 mmol/L (3.6-5.0); SODIUM 140 mmol/L (132-148)
[2016-12-05] MEDS: Digoxin 250 mcg (0.25 mg) Tab PO SCH (10:24)
--- NOTE | 2016-12-05 12:30 | CP.PCM.PN ---
<An Yarbrough - Last Filed: 12/05/16 12:16> Subjective - Date & Time of Evaluation Date of Evaluation: 12/05/16 Time of Evaluation: 10:45 - Subjective Subjective: Podiatry Progress Note - Dr. Stein 56 year old male patient PMHx DM, CHF, COPD seen for left leg pre-ulcerative lesions and bilateral lower extremity edema. Patient seen out of bed and in chair, AAOx3 and NAD. Patient states he had an angiogram yesterday by Dr. John Paul Cannon, states he had 2 stents and a balloon. Patient reports increased burning pain to the wounds on his left resendiz. Patient denies N/V/F/D/C/SOB. No other pedal complaints at this time. Objective - Vital Signs/Intake and Output Vital Signs (last 24 hours): Temp Pulse Resp BP Pulse Ox 98.5 F 70 20 123/74 95 12/04/16 22:00 12/05/16 10:26 12/04/16 22:00 12/05/16 10:26 12/04/16 22:00 - Medications Medications: Current Medications Albuterol/Ipratropium (Duoneb 3 Mg/0.5 Mg (3 Ml) Ud) 3 ml IH [id number] PRN; Protocol PRN Reason: sob/wheezing Digoxin (Lanoxin) 0.25 mg PO DAILY [facility] PRN Reason: Protocol Last Admin: 12/05/16 10:24 Dose: 0.25 mg Enoxaparin Sodium (Lovenox) 100 mg SC Q12H [facility] PRN Reason: Protocol Last Admin: 12/03/16 08:33 Dose: 100 mg Glimepiride (Amaryl) 4 mg PO 0730 [facility] PRN Reason: Protocol Last Admin: 12/04/16 08:40 Dose: 4 mg Heparin Sodium/Dextrose (Heparin 25,000 Units/250ml In D5w) 25,000 units in 250 mls @ 20 mls/hr IV .[id number] PRN; Protocol PRN Reason: ADJUST RATE PER PROTOCOL Insulin Detemir (Levemir) 30 unit SC 1000,2200 [facility] PRN Reason: Protocol Last Admin: 12/05/16 10:25 Dose: 30 unit Insulin Human Regular (Humulin R Med) 0 units SC ACHS [facility] PRN Reason: Protocol Last Admin: 12/05/16 07:00 Dose: 3 units Lisinopril (Zestril) 2.5 mg PO DAILY [facility] PRN Reason: Protocol Last Admin: 12/05/16 10:27 Dose: 2.5 mg Lorazepam (Ativan) 1 mg PO BID [facility] PRN Reason: Protocol Last Admin: 12/05/16 10:30 Dose: 1 mg Metformin HCl (Glucophage) 1,000 mg PO 0800,1700 [facility] PRN Reason: Protocol Last Admin: 11/30/16 17:06 Dose: 1,000 mg Metoprolol Tartrate (Lopressor) 50 mg PO 0800,1800 [facility] PRN Reason: Protocol Last Admin: 12/05/16 10:26 Dose: 50 mg Trazodone HCl (Desyrel) 150 mg PO HS [facility] PRN Reason: Protocol Last Admin: 12/05/16 00:02 Dose: 150 mg Verapamil HCl (Calan Tab) 40 mg PO Q8 [facility] PRN Reason: Protocol Last Admin: 12/04/16 23:57 Dose: 40 mg Warfarin Sodium (Coumadin) 7.5 mg PO 1800 [facility] PRN Reason: Protocol Last Admin: 11/30/16 17:07 Dose: 7.5 mg Warfarin Sodium (Coumadin) 7.5 mg PO 1800 [facility] PRN Reason: Protocol Last Admin: 12/05/16 00:01 Dose: 7.5 mg - Labs Labs: 12/05/16 08:00 12/05/16 08:00 PT 12.6 Seconds (9.9-11.8) H 12/05/16 08:00 INR 1.17 (0.93-1.08) H 12/05/16 08:00 APTT 49.2 Seconds (23.7-30.8) H 12/05/16 08:00 - Constitutional Appears: Well, Non-toxic, No Acute Distress - Extremities Exam Additional comments: VASC: DP and PT pulses non-palpable b/l, TG wnl, CFT < 3 sec to all digits, bilateral +1 pitting edema NEURO: Gross sensation diminished bilaterally DERM: Mild patchy erythema noted to anterior shins, pre ulcerative lesions to anterolateral resendiz of left leg with scabbing noted, no open lesions, no ascending cellulitis, no fluctuance, no malodor, no acute clinical signs of infection ORTHO: Tenderness to palpation anterolateral leg pre-ulcerative lesions - Neurological Exam Neurological Exam: Alert, Awake, Oriented x3 - Psychiatric Exam Psychiatric exam: Normal Affect, Normal Mood Assessment and Plan - Assessment and Plan (Free Text) Assessment: 56 y/o male seen at bedside for bilateral leg erythema and pre ulcerative lesions to left leg Plan: Patient seen and evaluated at bedside Discussed with attending, Dr. Stein Chart, vitals, labs reviewed = afebrile, WBC WNL @ 8.1 Maxsorb and Optifoam applied to left leg x2 Discussed left leg pain 2/2 vascular procedure, increased flow to leg Podiatry will continue to follow patient while in house <Tha Stein - Last Filed: 12/06/16 11:33> Objective - Vital Signs/Intake and Output Vital Signs (last 24 hours): Temp Pulse Resp BP Pulse Ox 98.0 F 70 14 131/74 93 L 12/05/16 17:49 12/06/16 10:37 12/05/16 17:49 12/06/16 10:37 12/05/16 10:00 - Medications Medications: Current Medications Albuterol/Ipratropium (Duoneb 3 Mg/0.5 Mg (3 Ml) Ud) 3 ml IH [id number] PRN; Protocol PRN Reason: sob/wheezing Digoxin (Lanoxin) 0.25 mg PO DAILY [facility] PRN Reason: Protocol Last Admin: 12/06/16 10:39 Dose: 0.25 mg Enoxaparin Sodium (Lovenox) 100 mg SC Q12H [facility] PRN Reason: Protocol Last Admin: 12/06/16 10:36 Dose: 100 mg Glimepiride (Amaryl) 4 mg PO 0730 [facility] PRN Reason: Protocol Last Admin: 12/06/16 08:05 Dose: 4 mg Insulin Detemir (Levemir) 30 unit SC 1000,2200 [facility] PRN Reason: Protocol Last Admin: 12/06/16 10:40 Dose: 30 unit Insulin Human Regular (Humulin R Med) 0 units SC ACHS [facility] PRN Reason: Protocol Last Admin: 12/06/16 06:31 Dose: Not Given Lisinopril (Zestril) 2.5 mg PO DAILY [facility] PRN Reason: Protocol Last Admin: 12/06/16 10:37 Dose: 2.5 mg Lorazepam (Ativan) 1 mg PO BID [facility] PRN Reason: Protocol Last Admin: 12/06/16 10:35 Dose: 1 mg Metformin HCl (Glucophage) 1,000 mg PO 0800,1700 [facility] PRN Reason: Protocol Last Admin: 11/30/16 17:06 Dose: 1,000 mg Metoprolol Tartrate (Lopressor) 50 mg PO 0800,1800 [facility] PRN Reason: Protocol Last Admin: 12/06/16 08:05 Dose: 50 mg Oxycodone/Acetaminophen (Percocet 5/325 Mg Tab) 1 tab PO Q4H PRN PRN Reason: Pain, moderate (4-7) Stop: 12/08/16 14:04 Last Admin: 12/05/16 14:23 Dose: 1 tab Trazodone HCl (Desyrel) 150 mg PO HS [facility] PRN Reason: Protocol Last Admin: 12/05/16 21:41 Dose: 150 mg Verapamil HCl (Calan Tab) 40 mg PO Q8 [facility] PRN Reason: Protocol Last Admin: 12/06/16 05:43 Dose: 40 mg Warfarin Sodium (Coumadin) 7.5 mg PO 1800 [facility] PRN Reason: Protocol Last Admin: 12/05/16 18:00 Dose: 7.5 mg - Labs Labs: 12/05/16 08:00 12/05/16 08:00 PT 12.6 Seconds (9.9-11.8) H 12/05/16 08:00 INR 1.17 (0.93-1.08) H 12/05/16 08:00 APTT 49.2 Seconds (23.7-30.8) H 12/05/16 08:00 Attending/Attestation - Attestation I have personally seen and examined this patient.: Yes I have fully participated in the care of the patient.: Yes I have reviewed all pertinent clinical information, including history, physical exam and plan: Yes
[2016-12-05] MEDS: Oxycodone/Acetaminophen 5/325 mg Tab PO PRN (14:23)
--- NOTE | 2016-12-05 17:37 | PN ---
DATE OF SERVICE: 12/05/2016 REASON FOR CONSULTATION: Continued care in Transitional Care Unit for nonischemic cardiomyopathy, chronic atrial fibrillation, interval CICD. SUBJECTIVE: Denies any chest pain, shortness of breath, or any palpitation. OBJECTIVE: GENERAL: Lying flat in the bed, not in apparent distress, not complaining of leg pain, status post peripheral angiogram and PTCA of lower extremity yesterday. VITAL SIGNS: Temperature afebrile, heart rate 70, blood pressure 123/74. HEENT: PERRLA. Extraocular muscles are intact. NECK: Supple. No carotid bruits and no thyromegaly. CHEST: Clear to auscultation. HEART: S1 and S2 regular. ABDOMEN: Soft. EXTREMITIES: Clubbing and cyanosis negative. LABORATORY DATA: WBC 8.1, hemoglobin 12.7, hematocrit 37.5, platelet count 141. Chemistry shows sodium 140, potassium 4.2, chloride 103, carbon dioxide 28, anion gap of 13, BUN 14, creatinine 0.4. IMPRESSION: Atrial fibrillation, chronic, morbid obesity, diabetes, hypertension, hyperlipidemia, nonischemic myocardiopathy, status post automated implantable cardioverter defibrillator, most recent MUGA scan shows ejection fraction 43%, history of peripheral arterial disease, yesterday underwent percutaneous transluminal coronary angioplasty for lower extremity angioplasty, history of acute thrombosis, removal of the lower extremity due to deep vein thrombosis in the right in the past. RECOMMENDATIONS: Now, the patient has been on IV heparin. Continue Coumadin 7.5. Continue heparin until the INR gets therapeutic. Continue digoxin. Continue metoprolol. We will follow with you. Follow up the blood workup in a day or 2. Thank [address] Banks for providing us the opportunity in taking care of the patient. Tia Rajan MD
[2016-12-05] MEDS: Enoxaparin 100 mg Syringe SC SCH (21:41)
--- NOTE | 2016-12-06 03:52 | PN ---
DATE: 12/05/2016 REFERRING PHYSICIAN: Dr. Axel Villagomez. SUBJECTIVE: He is out of bed to chair. Night was unremarkable. Does not use CPAP/BiPAP. No headache, no rhinitis. No nausea, no vomiting, no diarrhea. Status post peripheral angiography with angioplasty. OBJECTIVE: GENERAL: In no acute distress. VITAL SIGNS: Temperature is 98, heart rate is 71, respiratory rate is 20, blood pressure 101/56, pulse ox 93% on room air. HEENT: Moist mucous membranes. Crowded airway. NECK: Supple. No JVD. LUNGS: Fair airflow with few rhonchi. HEART: S1, S2. ABDOMEN: Soft, nontender. No organomegaly. EXTREMITIES: He has known healing ulcer of the left lower extremity with some edema. NEUROLOGIC: Awake. Follows simple command. MEDICATIONS: He is on Amaryl 4 mg daily, Ativan 1 mg twice a day, Calan 40 mg q. 8 hours, Coumadin 7.5 mg daily, trazodone 150 mg at bedtime, DuoNeb q. 6 hours, p.r.n., metformin 1000 mg twice a day, insulin coverage, digoxin 0.25 mg daily, Levemir 30 units subcu twice a day, metoprolol tartrate 50 mg q. 8 hours, Lovenox 100 mg subcu twice a day, Percocet 5/325 mg one tablet q. 4 hours p.r.n., Zestril 2.5 mg daily. LABORATORY DATA: Shows hemoglobin 12.7, hematocrit 37.5, WBC 8.1, and platelet count is 141. INR 1.17, PTT 49. Sodium 140, potassium 4.2, chloride 103, bicarbonate 28, BUN 14, creatinine 0.7, glucose 154, calcium is 9.1. IMPRESSION AND PLAN: Cardiomyopathy, pulmonary hypertension, atrial fibrillation status post ablation therapy, right ventricular pacemaker, sleep apnea syndrome, diabetes, hypertension, morbid obesity, chronic lung disease, peripheral vascular disease, known healing left leg ulcer, status post arteriogram with angioplasty, sleep apnea precaution via sedation. Continue anticoagulation, bronchodilators, beta-blockers and fall precaution. Thank you and we will follow with you. Tia Godinez MD
[2016-12-06] MEDS: Insulin Reg-MEDIUM-Coverage SC SCH ×4 (06:31→21:55)
[2016-12-06] MEDS: Enoxaparin 100 mg Syringe SC SCH ×2 (10:36→21:55)
[2016-12-06] MEDS: Digoxin 250 mcg (0.25 mg) Tab PO SCH (10:39)
[2016-12-06] MEDS: Insulin Detemir 100 units/ml Vial (Levemir) SC SCH ×2 (10:40→21:55)
--- NOTE | 2016-12-06 12:16 | PN ---
DATE: 12/06/2016 SUBJECTIVE: The patient has no complaints of any chest pain, no shortness of breath, no headache. PHYSICAL EXAMINATION: VITAL SIGNS: Temperature is 98, pulse is 71, blood pressure is 120/74 and respiration is 14. GENERAL: The patient is lying in bed, flat, comfortable. HEENT: No oral lesion. Anicteric sclerae. Moist mucosa. NECK: No JVD, adenopathy, or thyromegaly. CARDIOVASCULAR: S1 and S2, regular. No murmurs, rubs, or gallops. LUNGS: Clear to auscultation bilaterally. No wheeze, rales, or rhonchi. ABDOMEN: Bowel sounds are positive, soft, nontender and nondistended. EXTREMITIES: No cyanosis, clubbing or edema. LABS: Creatinine is 0.7. ASSESSMENT: 1. Peripheral arterial disease with angioplasty of left leg. 2. Left leg pain, improving. 3. Acute chronic obstructive pulmonary disease, improved. 4. Acute congestive heart failure secondary to systolic dysfunction, improved. 5. Diabetes type 2. 6. Atrial fibrillation, on anticoagulation, subtherapeutic. 7. Hypertension. 8. Nonadherence/noncompliance. 9. History of left leg thrombectomy. PLAN: The patient had interventional radiology with Dr. John Paul Cannon done 3 days ago. He was found to have a left trifurcation thrombosis, probably an embolus. There was successful recanalization of the left trifurcation. He may have a left popliteal embolus that had formed. He has been advised multiple times about importance of followup and proper care regarding his anticoagulation. This was reinforced again today. The patient is currently on Lovenox for anticoagulation. He is going to continue with his diabetes medications. He is receiving verapamil for his atrial fibrillation. The patient is on Amaryl for his diabetes. His metformin has been on hold. His finger sticks have controlled and lisinopril for his CHF. He has CPAP at night, but he does not like to use it. He is ambulating with physical therapy. Axel Villagomez MD
--- NOTE | 2016-12-06 16:09 | PN ---
DATE: 12/06/2016 LOCATION: The patient in room #313, bed 1. REASON FOR CONSULTATION: Cardiomyopathy, chronic atrial fibrillation, and AICD insertion. SUBJECTIVE: The patient sitting in chair without any chest pain, shortness of breath, or palpitation. PHYSICAL EXAMINATION: VITAL SIGNS: Blood pressure 131/74, respirations 20, pulse 70. The patient is afebrile. HEENT: Head is normocephalic. Eyes, pupils normal. Conjunctivae normal. Nose and throat normal. NECK: JVP low. Carotid equal. THORAX: AP diameter normal. LUNGS: Clear. CARDIOVASCULAR: S1 and S2. ABDOMEN: Protuberant. No organomegaly. Bowel sounds normal. EXTREMITIES: No clubbing. No cyanosis. LABORATORY DATA: WBC 8.1, hemoglobin 12.7, hematocrit 37.5, and platelet 141. Sodium 140, potassium 4.2, BUN 14, creatinine 0.7, random sugar 147, calcium 9.1. DIAGNOSES: Nonischemic cardiomyopathy, atrial fibrillation, chronic morbid obesity, diabetes, hypertension, hyperlipidemia, status post automated implantable cardioverter-defibrillator insertion and most recent MUGA scan showed ejection fraction of 43%, history of peripheral vascular disease. Two days ago, the patient had percutaneously angioplasty on left lower extremity. In the past, had history of thrombosis and removal of the lower extremity thrombus in the past. PLAN: The patient had been started on Coumadin, but today prothrombin time 12.6, INR 1.17. The patient is getting warfarin 7.5 mg p.o. daily, Lovenox 100 mg subcu q.12 hours, 25 mg daily, metoprolol 50 b.i.d., Levemir insulin 30 units subcu b.i.d., digoxin 0.5 daily, metformin 1000 mg b.i.d., DuoNeb and nebulizer therapy, Desyrel 150 mg p.o. h.s., warfarin 7.5 mg daily, verapamil 40 mg q. 8 hour, Ativan 1 mg b.i.d., Amaryl 4 mg p.o. daily. In total, the patient is very poor compliant patient. PT/ INR repeat has been requested for tomorrow certainly due to this patient is on Lovenox. So, we will follow with you. Tia Cabello MD
--- NOTE | 2016-12-06 17:54 | CP.PCM.PN ---
Subjective - Date & Time of Evaluation Date of Evaluation: 12/06/16 Time of Evaluation: 16:00 - Subjective Subjective: Podiatry Progress Note - Dr. Marti 56 year old male patient PMHx DM, CHF, COPD seen for left leg pre-ulcerative lesions and bilateral lower extremity edema. Patient seen sleeping in bed comfortably, AAOx3 and NAD. Patient denies any acute events overnight. Patient states the pain/burning sensation to his left leg has decreased since yesterday. Patient denies N/V/F/D/C/SOB. No other pedal complaints at this time. Objective - Vital Signs/Intake and Output Vital Signs (last 24 hours): Temp Pulse Resp BP Pulse Ox 98 F 70 18 125/79 92 L 12/06/16 16:00 12/06/16 16:00 12/06/16 16:00 12/06/16 16:00 12/06/16 16:00 - Medications Medications: Current Medications Albuterol/Ipratropium (Duoneb 3 Mg/0.5 Mg (3 Ml) Ud) 3 ml IH [id number] PRN; Protocol PRN Reason: sob/wheezing Digoxin (Lanoxin) 0.25 mg PO DAILY [facility] PRN Reason: Protocol Last Admin: 12/06/16 10:39 Dose: 0.25 mg Enoxaparin Sodium (Lovenox) 100 mg SC Q12H [facility] PRN Reason: Protocol Last Admin: 12/06/16 10:36 Dose: 100 mg Glimepiride (Amaryl) 4 mg PO 0730 [facility] PRN Reason: Protocol Last Admin: 12/06/16 08:05 Dose: 4 mg Insulin Detemir (Levemir) 30 unit SC 1000,2200 [facility] PRN Reason: Protocol Last Admin: 12/06/16 10:40 Dose: 30 unit Insulin Human Regular (Humulin R Med) 0 units SC ACHS [facility] PRN Reason: Protocol Last Admin: 12/06/16 16:30 Dose: Not Given Lisinopril (Zestril) 2.5 mg PO DAILY [facility] PRN Reason: Protocol Last Admin: 12/06/16 10:37 Dose: 2.5 mg Lorazepam (Ativan) 1 mg PO BID [facility] PRN Reason: Protocol Last Admin: 12/06/16 10:35 Dose: 1 mg Metformin HCl (Glucophage) 1,000 mg PO 0800,1700 [facility] PRN Reason: Protocol Last Admin: 11/30/16 17:06 Dose: 1,000 mg Metoprolol Tartrate (Lopressor) 50 mg PO 0800,1800 [facility] PRN Reason: Protocol Last Admin: 12/06/16 08:05 Dose: 50 mg Oxycodone/Acetaminophen (Percocet 5/325 Mg Tab) 1 tab PO Q4H PRN PRN Reason: Pain, moderate (4-7) Stop: 12/08/16 14:04 Last Admin: 12/05/16 14:23 Dose: 1 tab Trazodone HCl (Desyrel) 150 mg PO HS [facility] PRN Reason: Protocol Last Admin: 12/05/16 21:41 Dose: 150 mg Verapamil HCl (Calan Tab) 40 mg PO Q8 [facility] PRN Reason: Protocol Last Admin: 12/06/16 05:43 Dose: 40 mg Warfarin Sodium (Coumadin) 7.5 mg PO 1800 [facility] PRN Reason: Protocol Last Admin: 12/05/16 18:00 Dose: 7.5 mg - Labs Labs: 12/05/16 08:00 12/05/16 08:00 PT 12.6 Seconds (9.9-11.8) H 12/05/16 08:00 INR 1.17 (0.93-1.08) H 12/05/16 08:00 APTT 49.2 Seconds (23.7-30.8) H 12/05/16 08:00 - Constitutional Appears: Well, Non-toxic, No Acute Distress - Extremities Exam Additional comments: VASC: DP and PT pulses non-palpable b/l, TG wnl, CFT < 3 sec to all digits, bilateral +1 pitting edema NEURO: Gross sensation diminished bilaterally DERM: Mild patchy erythema noted to anterior shins has decreased. Pre ulcerative lesions to anterolateral resendiz of left leg with scabbing noted, no open lesions, no ascending cellulitis, no fluctuance, no malodor, no acute clinical signs of infection. Superficial wound noted to R knee with granular base and surrounding erythema periwound - erythema decreasing. No fluctuance, malodor, purulence noted to wound. ORTHO: No tenderness to palpation anterolateral leg pre-ulcerative lesions - Neurological Exam Neurological Exam: Alert, Awake, Oriented x3 - Psychiatric Exam Psychiatric exam: Normal Affect, Normal Mood Assessment and Plan - Assessment and Plan (Free Text) Assessment: 56 y/o male seen at bedside for bilateral leg erythema and pre ulcerative lesions to left leg Plan: Patient seen and evaluated at bedside Discussed with attending, Dr. Marti Chart, vitals, labs reviewed = afebrile Maxsorb and Optifoam applied to left leg x2 Podiatry will continue to follow patient while in house
--- NOTE | 2016-12-06 21:23 | PN ---
DATE: 12/06/2016 PULMONARY PROGRESS NOTE REFERRING PHYSICIAN: Axel Villagomez MD SUBJECTIVE: He is lying in the bed, head at 45 degrees. Night was unremarkable. No nausea, no vomiting, no diarrhea. Decreased leg swelling. Decreased left leg pain. PHYSICAL EXAMINATION GENERAL: No acute distress. VITAL SIGNS: Temperature is 98, heart rate is 70, respiratory rate is 20, blood pressure 131/74, pulse ox 93% on room air. HEENT: Moist mucous membrane. Crowded airway. NECK: Supple. No JVD. LUNGS: Has a fair airflow with rhonchi. HEART: S1 and S2. ABDOMEN: Soft and nontender. No organomegaly. EXTREMITIES: Has a known healing ulcer on the left lower extremity. NEUROLOGIC: Awake and alert. Follow simple commands. MEDICATIONS: He is on Amaryl 4 mg daily, Ativan 1 mg twice a day, verapamil 40 mg q. 8 h., Coumadin 7.5 mg today, trazodone 150 mg at bedtime, DuoNeb q. 4 h. p.r.n., metformin 1000 mg twice a day, insulin coverage, digoxin 0.25 mg daily, Levemir 30 units subcu twice a day, metoprolol tartrate 50 mg twice a day, Lovenox 100 mg subcu daily, Percocet 5/325 mg one tablet q. 4 h. p.r.n., and Zestril 2.5 mg daily. LABORATORY DATA: Shows blood sugar this morning 205. IMPRESSION AND PLAN: Cardiomyopathy, pulmonary hypertension, atrial fibrillation, status post ablation therapy, has a pacemaker with automatic implantable cardioverter-defibrillator, sleep apnea syndrome, diabetes, hypertension, morbid obesity, chronic lung disease, peripheral vascular disease, thromboembolic disease secondary to noncompliant with anticoagulation, status post thrombectomy of the left lower extremity. Spoke to the patient about it, risk of thromboembolic disease including stroke, losing limb. He expressed understanding and will work on and be compliant with anticoagulation, sleep apnea precaution, careful with sedation. Thank you and we will follow with you. Tia Godinez MD
[2016-12-07 06:21] LABS: INR 1.21 (0.93-1.08)
[2016-12-07 06:32] LABS: ALB/GLOB RATIO 1.3 (1.1-1.8); ALKALINE PHOSPHATASE 58 U/L (38-126); ALT/SGPT 62 U/L (7-56); AST/SGOT 43 U/L (17-59); BILIRUBIN,TOTAL 0.4 mg/dL (0.2-1.3); BLOOD UREA NITROGEN 13 mg/dL (7-21); CALCIUM 8.9 mg/dL (8.4-10.5); CARBON DIOXIDE 24 mmol/L (21-33); CHLORIDE 107 mmol/L (98-107); GFR AFRICAN-AMERICAN > 60; GLUCOSE,RANDOM 104 mg/dL (70-110); POTASSIUM 4.1 mmol/L (3.6-5.0); SODIUM 142 mmol/L (132-148); TOTAL PROTEIN 5.9 g/dL (5.8-8.3)
[2016-12-07] MEDS: Insulin Reg-MEDIUM-Coverage SC SCH ×4 (06:43→21:34)
[2016-12-07 06:57] LABS: HEMATOCRIT 35.8 % (42.0-52.0); MEAN CELL VOLUME 86.5 fl (80.0-105.0); MEAN CORPUSCULAR HEMOGLOBIN 28.7 pg (25.0-35.0); MEAN CORPUSCULAR HGB CONC 33.2 g/dl (31.0-37.0); MEAN PLATELET VOLUME 9.9 fl (7.0-11.0); RED CELL DISTRIBUTION WIDTH 16.5 % (11.5-14.5); WHITE BLOOD COUNT 6.8 10^3/ul (4.5-11.0)
--- NOTE | 2016-12-07 08:24 | PN ---
DATE: 12/06/2016 IDENTIFYING INFORMATION: The patient is a 56-year-old white male who was being treated for acute exacerbation of COPD as well as congestive heart failure. He carries with him prior diagnosis of bipolar disorder but has not been exhibiting signs of mood liability; although, he is somewhat upset at the description of his procedure, as conveyed to him by Dr. Cannon and the amount of time it did take (which was significantly longer and with descriptions having been offered on several occasions). He is rather calm down. 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 He appears to be pleasant, upbeat, likable. He does not exhibit signs of mood liability. CBC and differential yesterday showed low hemoglobin 12.7 and hematocrit 37.5. Blood sugar yesterday was 147. He is being maintained psychotropically on Ativan 1 mg b.i.d., trazodone 150 mg at bedtime. Blood pressure 131/74, pulse 70 Maximino Morales MD/ PhD
[2016-12-07] MEDS: Enoxaparin 100 mg Syringe SC SCH ×2 (11:25→21:16)
[2016-12-07] MEDS: Digoxin 250 mcg (0.25 mg) Tab PO SCH (11:27)
[2016-12-07] MEDS: Insulin Detemir 100 units/ml Vial (Levemir) SC SCH ×2 (11:29→21:34)
--- NOTE | 2016-12-07 14:09 | PN ---
DATE: 12/07/2016 REASON FOR CONSULTATION AND FOLLOWUP: Cardiomyopathy and chronic atrial fibrillation, AICD placement, deconditioning of the body. SUBJECTIVE: Denies any chest pain or shortness of breath. Feels a lot better, awaiting for INR to be therapeutic going home. OBJECTIVE/PHYSICAL EXAMINATION: As follows: GENERAL: Sitting on the chair, not in any apparent distress. VITAL SIGNS: Temperature is afebrile, heart rate is 67, and blood pressure is 132/75. HEENT: PERRLA. Extraocular muscles are intact. NECK: Supple. No carotid bruits or thyromegaly. CHEST: Clear to auscultation. HEART: S1 and S2 regular. ABDOMEN: Soft. EXTREMITIES: Clubbing and cyanosis negative. LABORATORY DATA: Blood workup as follows; WBC of 8.8, hemoglobin of 11.9, hematocrit of 35.8, and platelet count of 142. Chemistry shows sodium of 142, potassium of 4.0, chloride of 107, carbon dioxide of 24, anion gap of 15, BUN of 13, and creatinine of 0.7. IMPRESSION: A 56-year-old male with a past medical history nonischemic cardiopathy with atrial fibrillation, morbid obesity, diabetes, hypertension, hyperlipidemia, status post automated implantable cardioverter-defibrillator, most recent MUGA scan shows ejection fraction 43%, history of peripheral arterial disease, history of percutaneous transluminal coronary angioplasty, on heparin, was off Coumadin for peripheral intervention, now restarted back on Coumadin. History of atrial fibrillation. RECOMMENDATIONS: Continue Coumadin. Monitor INR. We will DC Lovenox when INR therapeutic. We will start 10 mg of Coumadin today and 10 tomorrow and then 7.5 from day after tomorrow. We will follow with you. Interim, we will continue verapamil 40 mg daily and continue digoxin. Thank you Dr. Banks for providing us the opportunity in taking care of the patient, Pete Alex. Tia Rajan MD
--- NOTE | 2016-12-07 15:20 | CP.PCM.PN ---
Subjective - Date & Time of Evaluation Date of Evaluation: 12/07/16 Time of Evaluation: 13:12 - Subjective Subjective: Podiatry Progress Note - Dr. Marti 56 year old male patient PMHx, DM, CHF, COPD seen for left leg pre-ulcerative lesions and bilateral lower extremity edema. Patient seen out of bed and in chair, AAOx3 and NAD. Patient denies any pain or burning sensation to his left leg today. Patient states he will be discharged tomorrow. Patient denies N/V/F/D /C/SOB. No other pedal complaints at this time. Objective - Vital Signs/Intake and Output Vital Signs (last 24 hours): Temp Pulse Resp BP Pulse Ox 97.6 F 97 H 18 132/75 97 12/07/16 11:18 12/07/16 11:24 12/07/16 11:18 12/07/16 11:24 12/07/16 11:18 Intake and Output: 12/07/16 12/07/16 06:59 18:59 Intake Total 540 Balance 540 - Medications Medications: Current Medications Albuterol/Ipratropium (Duoneb 3 Mg/0.5 Mg (3 Ml) Ud) 3 ml IH [id number] PRN; Protocol PRN Reason: sob/wheezing Digoxin (Lanoxin) 0.25 mg PO DAILY [facility] PRN Reason: Protocol Last Admin: 12/07/16 11:27 Dose: 0.25 mg Enoxaparin Sodium (Lovenox) 100 mg SC Q12H [facility] PRN Reason: Protocol Last Admin: 12/07/16 11:25 Dose: 100 mg Glimepiride (Amaryl) 4 mg PO 0730 [facility] PRN Reason: Protocol Last Admin: 12/07/16 11:27 Dose: 4 mg Insulin Detemir (Levemir) 30 unit SC 1000,2200 [facility] PRN Reason: Protocol Last Admin: 12/07/16 11:29 Dose: 30 unit Insulin Human Regular (Humulin R Med) 0 units SC ACHS [facility] PRN Reason: Protocol Last Admin: 12/07/16 11:30 Dose: 1 units Lisinopril (Zestril) 2.5 mg PO DAILY [facility] PRN Reason: Protocol Last Admin: 12/07/16 11:24 Dose: 2.5 mg Lorazepam (Ativan) 1 mg PO BID [facility] PRN Reason: Protocol Last Admin: 12/07/16 11:34 Dose: 1 mg Metformin HCl (Glucophage) 1,000 mg PO 0800,1700 [facility] PRN Reason: Protocol Last Admin: 12/07/16 08:24 Dose: 1,000 mg Metoprolol Tartrate (Lopressor) 50 mg PO 0800,1800 [facility] PRN Reason: Protocol Last Admin: 12/07/16 08:24 Dose: 50 mg Oxycodone/Acetaminophen (Percocet 5/325 Mg Tab) 1 tab PO Q4H PRN PRN Reason: Pain, moderate (4-7) Stop: 12/08/16 14:04 Last Admin: 12/05/16 14:23 Dose: 1 tab Trazodone HCl (Desyrel) 150 mg PO HS [facility] PRN Reason: Protocol Last Admin: 12/06/16 21:55 Dose: 150 mg Verapamil HCl (Calan Tab) 40 mg PO Q8 [facility] PRN Reason: Protocol Last Admin: 12/07/16 05:28 Dose: Not Given Warfarin Sodium (Coumadin) 7.5 mg PO 1800 [facility] PRN Reason: Protocol Warfarin Sodium (Coumadin) 10 mg PO 1800 [facility] PRN Reason: Protocol Stop: 12/08/16 23:59 - Labs Labs: 12/07/16 06:30 12/07/16 06:04 PT 13.1 Seconds (9.9-11.8) H 12/07/16 06:04 INR 1.21 (0.93-1.08) H 12/07/16 06:04 APTT 49.2 Seconds (23.7-30.8) H 12/05/16 08:00 - Constitutional Appears: Well, Non-toxic, No Acute Distress - Extremities Exam Additional comments: VASC: DP and PT pulses non-palpable b/l, TG wnl, CFT < 3 sec to all digits, bilateral +1 pitting edema NEURO: Gross sensation diminished bilaterally DERM: Mild patchy erythema noted to anterior shins has decreased. Pre ulcerative lesions to anterolateral resendiz of left leg with scabbing noted, no open lesions, no ascending cellulitis, no fluctuance, no malodor, no acute clinical signs of infection. Superficial wound noted to R knee with granular base and surrounding erythema periwound - erythema decreasing. No fluctuance, malodor, purulence noted to wound. ORTHO: No tenderness to palpation anterolateral leg pre-ulcerative lesions - Neurological Exam Neurological Exam: Alert, Awake, Oriented x3 - Psychiatric Exam Psychiatric exam: Normal Affect, Normal Mood Assessment and Plan - Assessment and Plan (Free Text) Assessment: 56 y/o male seen at bedside for bilateral leg edema and pre ulcerative lesions to left leg Plan: Patient seen and evaluated at bedside Discussed with attending, Dr. Marti Chart, vitals, labs reviewed = afebrile Maxsorb and Optifoam applied to left knee. No dressing on anterolateral pre- ulcerative lesions Podiatry will continue to follow patient while in house
--- NOTE | 2016-12-08 03:20 | PN ---
DATE: 12/07/2016 PULMONARY PROGRESS NOTE REFERRING PHYSICIAN: Axel Villagomez MD SUBJECTIVE: She is lying in the bed, head at 45 degrees. Night was unremarkable. Doing well in therapy. No headache. No rhinitis. No chest pain. No nausea, no vomiting, no diarrhea. Does have leg swelling. Left lower extremity ulcer is healing. PHYSICAL EXAMINATION: GENERAL: In no acute distress. VITAL SIGNS: Temperature is 98, heart rate 69, respiratory rate is 20, blood pressure 140/86, pulse ox 96% on room air. HEENT: Moist mucous membrane. Crowded airway. Mallampati score is IV. NECK: Supple. No JVD. LUNGS: Had a fair airflow with few rhonchi. HEART: S1 and S2. ABDOMEN: Soft and nontender. No organomegaly. EXTREMITIES: Does have edema. Left lower extremity ulcer is healing. NEUROLOGIC: Awake, alert, follows simple commands. MEDICATIONS: He is on Amaryl 4 mg daily, also Ativan 1 mg twice a day, Calan 40 mg q.8 hours, Coumadin 10 mg will be given tonight, trazodone 150 mg at bedtime, DuoNeb q.6 hours, Glucophage 1000 mg twice a day, insulin coverage, digoxin 0.25 mg daily, Levemir 30 units subcutaneous twice a day, metoprolol tartrate 50 mg twice a day, Lovenox 100 mg q.12 hours, Percocet 5/325 one tablet q.4 hours p.r.n., and Zestril 2.5 mg daily. LABORATORY DATA: Shows hemoglobin 11.9, hematocrit 35.8, WBC is 6.8, platelet is 142. INR 1.21, sodium 142, potassium 4.1, chloride 107, bicarbonate 24, BUN 13, creatinine 0.7, glucose is 183, calcium is 8.9, AST 43, ALT 62, and alkaline phosphatase is 58. IMPRESSION AND PLAN: Cardiomyopathy, pulmonary hypertension, atrial fibrillation status post ablation therapy, also has automatic implantable cardioverter defibrillator, sleep apnea syndrome, diabetes, hypertension, morbid obesity, chronic lung disease, peripheral vascular disease, thromboembolic disease, known compliant with anticoagulation, recurrent thromboembolic requiring thrombectomy. I spoke to the patient in detail about risk of known compliant and high risk of thromboembolic disease including stroke. He expressed understanding. Sleep apnea precaution while sedation. Continue anticoagulation. Follow up INR. Continue therapy. Thank you, and we will follow with you. Tia Godinez MD
[2016-12-08] MEDS: Insulin Reg-MEDIUM-Coverage SC SCH ×4 (06:36→21:46)
[2016-12-08 08:24] LABS: INR 1.3 (0.93-1.08)
[2016-12-08] MEDS: Digoxin 250 mcg (0.25 mg) Tab PO SCH (10:30)
[2016-12-08] MEDS: Insulin Detemir 100 units/ml Vial (Levemir) SC SCH ×2 (10:31→21:47)
[2016-12-08] MEDS: Enoxaparin 100 mg Syringe SC SCH ×2 (10:31→22:38)
[2016-12-08] MEDS: Oxycodone/Acetaminophen 5/325 mg Tab PO PRN (13:52)
--- NOTE | 2016-12-08 14:04 | PN ---
LOCATION: Room #313, bed 1. REASON FOR CONSULTATION: Followup cardiomyopathy, chronic atrial fibrillation, AICD placement, deconditioning. SUBJECTIVE: The patient is sitting in chair without chest pain, shortness of breath, or palpitations. He just finished physical therapy. He is asymptomatic. PHYSICAL EXAMINATION: VITAL SIGNS: Blood pressure 126/80, respirations 18, pulse 69, temperature 97.7. HEENT: Head, normocephalic. Eyes: Pupils normal. Conjunctiva slightly pale. NECK: JVP low. Carotid equal. Thorax, AP diameter normal. LUNGS: No rales. CARDIOVASCULAR: S1 and S2. ABDOMEN: Soft, no tenderness. No organomegaly. Bowel sounds are normal. EXTREMITIES: No clubbing. No cyanosis. LABORATORY DATA: WBC is 6.8, hemoglobin of 11.9, hematocrit of 35.8, and platelet count of 142. Sodium of 142, potassium of 4.1, BUN of 13, creatinine 0.7, random sugar 126. AST 62, ALT 58. DIAGNOSES: Non-ischemic cardiomyopathy, atrial fibrillation, morbid obesity, diabetes, hypertension, hyperlipidemia, status post automated implantable cardioverter-defibrillator insertion, most recent MUGA scan showed ejection fraction of 43%, history of peripheral vascular disease, status post percutaneous transluminal angioplasty for peripheral vascular disease. PLAN: Prothrombin time today is 14.0 with INR of 1.30. The patient already started on warfarin 7.5 mg daily, metformin 1000 mg b.i.d., digoxin 0.25 daily, metoprolol 50 b.i.d., Lovenox 100 mg subcutaneous q. 12 hours, lisinopril 2.5 mg daily. Continue physical therapy. We will follow PT/INR. Tia Cabello MD
--- NOTE | 2016-12-08 15:19 | CP.PCM.PN ---
<An Yarbrough - Last Filed: 12/08/16 21:58> Subjective - Date & Time of Evaluation Date of Evaluation: 12/08/16 Time of Evaluation: 15:19 - Subjective Subjective: Progress Note - Dr. Stein 56 year old male patient PMHx, DM, CHF, COPD seen for left leg pre-ulcerative lesions and bilateral lower extremity edema. Patient seen out of bed and in chair, AAOx3 and NAD. Patient's legs were not elevated at this visit. Patient denies any pain or burning sensation to his left leg today. Patient states he was not discharged today 2/2 INR not at therapeutic level; plan for discharge tomorrow. Patient denies N/V/F/D/C/SOB. No other pedal complaints at this time. Objective - Vital Signs/Intake and Output Vital Signs (last 24 hours): Temp Pulse Resp BP Pulse Ox 97.7 F 69 18 126/80 93 L 12/08/16 06:00 12/08/16 10:32 12/08/16 06:00 12/08/16 10:32 12/08/16 06:00 Intake and Output: 12/08/16 12/08/16 06:59 18:59 Intake Total 540 Balance 540 - Medications Medications: Current Medications Acetaminophen (Tylenol 325mg Tab) 650 mg PO Q6H PRN; Protocol PRN Reason: Pain, moderate (4-7) Albuterol/Ipratropium (Duoneb 3 Mg/0.5 Mg (3 Ml) Ud) 3 ml IH [id number] PRN; Protocol PRN Reason: sob/wheezing Digoxin (Lanoxin) 0.25 mg PO DAILY [facility] PRN Reason: Protocol Last Admin: 12/08/16 10:30 Dose: 0.25 mg Enoxaparin Sodium (Lovenox) 100 mg SC Q12H [facility] PRN Reason: Protocol Last Admin: 12/08/16 10:31 Dose: 100 mg Glimepiride (Amaryl) 4 mg PO 0730 [facility] PRN Reason: Protocol Last Admin: 12/08/16 08:00 Dose: 4 mg Insulin Detemir (Levemir) 30 unit SC 1000,2200 [facility] PRN Reason: Protocol Last Admin: 12/08/16 10:31 Dose: 30 unit Insulin Human Regular (Humulin R Med) 0 units SC ACHS [facility] PRN Reason: Protocol Last Admin: 12/08/16 11:51 Dose: Not Given Lisinopril (Zestril) 2.5 mg PO DAILY [facility] PRN Reason: Protocol Last Admin: 12/08/16 10:32 Dose: 2.5 mg Lorazepam (Ativan) 1 mg PO BID [facility] PRN Reason: Protocol Last Admin: 12/08/16 10:30 Dose: 1 mg Metformin HCl (Glucophage) 1,000 mg PO 0800,1700 [facility] PRN Reason: Protocol Last Admin: 12/08/16 08:00 Dose: 1,000 mg Metoprolol Tartrate (Lopressor) 50 mg PO 0800,1800 [facility] PRN Reason: Protocol Last Admin: 12/08/16 08:01 Dose: 50 mg Trazodone HCl (Desyrel) 150 mg PO HS [facility] PRN Reason: Protocol Last Admin: 12/07/16 22:07 Dose: 150 mg Verapamil HCl (Calan Tab) 40 mg PO Q8 [facility] PRN Reason: Protocol Last Admin: 12/08/16 05:41 Dose: Not Given Warfarin Sodium (Coumadin) 7.5 mg PO 1800 [facility] PRN Reason: Protocol Warfarin Sodium (Coumadin) 10 mg PO 1800 [facility] PRN Reason: Protocol Stop: 12/08/16 23:59 Last Admin: 12/07/16 17:41 Dose: 10 mg - Labs Labs: 12/07/16 06:30 12/07/16 06:04 PT 14.0 Seconds (9.9-11.8) H 12/08/16 08:11 INR 1.30 (0.93-1.08) H 12/08/16 08:11 APTT 49.2 Seconds (23.7-30.8) H 12/05/16 08:00 - Constitutional Appears: Well, Non-toxic, No Acute Distress - Extremities Exam Additional comments: VASC: DP and PT pulses non-palpable b/l, TG wnl, CFT < 3 sec to all digits, bilateral +1 pitting edema NEURO: Gross sensation diminished bilaterally DERM: Mild patchy erythema noted to anterior shins has decreased. Pre ulcerative lesions to anterolateral resendiz of left leg with scabbing noted, no open lesions, no ascending cellulitis, no fluctuance, no malodor, no acute clinical signs of infection. Superficial wound noted to R knee with granular base and surrounding erythema periwound - erythema decreasing. No fluctuance, malodor, purulence noted to wound. ORTHO: No tenderness to palpation anterolateral leg pre-ulcerative lesions - Neurological Exam Neurological Exam: Alert, Awake, Oriented x3 - Psychiatric Exam Psychiatric exam: Normal Affect, Normal Mood Assessment and Plan - Assessment and Plan (Free Text) Assessment: 56 y/o male seen at bedside for bilateral leg edema and pre ulcerative lesions to left leg Plan: Patient seen and evaluated at bedside Discussed with attending, Dr. Stein Chart, vitals, labs reviewed = afebrile Maxsorb and Optifoam applied to left knee. No dressing on anterolateral pre- ulcerative lesions Podiatry will continue to follow patient while in house <Tha Stein - Last Filed: 12/09/16 08:23> Objective - Vital Signs/Intake and Output Vital Signs (last 24 hours): Temp Pulse Resp BP Pulse Ox 97.9 F 67 18 89/58 L 95 12/09/16 06:00 12/09/16 08:05 12/09/16 06:00 12/09/16 08:05 12/09/16 06:00 Intake and Output: 12/09/16 12/09/16 06:59 18:59 Intake Total 620 Balance 620 - Medications Medications: Current Medications Acetaminophen (Tylenol 325mg Tab) 650 mg PO Q6H PRN; Protocol PRN Reason: Pain, moderate (4-7) Albuterol/Ipratropium (Duoneb 3 Mg/0.5 Mg (3 Ml) Ud) 3 ml IH [id number] PRN; Protocol PRN Reason: sob/wheezing Digoxin (Lanoxin) 0.25 mg PO DAILY [facility] PRN Reason: Protocol Last Admin: 12/08/16 10:30 Dose: 0.25 mg Enoxaparin Sodium (Lovenox) 100 mg SC Q12H [facility] PRN Reason: Protocol Last Admin: 12/08/16 22:38 Dose: 100 mg Glimepiride (Amaryl) 4 mg PO 0730 [facility] PRN Reason: Protocol Last Admin: 12/09/16 08:02 Dose: 4 mg Insulin Detemir (Levemir) 30 unit SC 1000,2200 [facility] PRN Reason: Protocol Last Admin: 12/08/16 21:47 Dose: Not Given Insulin Human Regular (Humulin R Med) 0 units SC ACHS [facility] PRN Reason: Protocol Last Admin: 12/09/16 06:38 Dose: Not Given Lisinopril (Zestril) 2.5 mg PO DAILY [facility] PRN Reason: Protocol Last Admin: 12/08/16 10:32 Dose: 2.5 mg Lorazepam (Ativan) 1 mg PO BID [facility] PRN Reason: Protocol Last Admin: 12/08/16 17:37 Dose: 1 mg Metformin HCl (Glucophage) 1,000 mg PO 0800,1700 [facility] PRN Reason: Protocol Last Admin: 12/09/16 08:02 Dose: 1,000 mg Metoprolol Tartrate (Lopressor) 50 mg PO 0800,1800 [facility] PRN Reason: Protocol Last Admin: 12/09/16 08:05 Dose: Not Given Trazodone HCl (Desyrel) 150 mg PO HS [facility] PRN Reason: Protocol Last Admin: 12/08/16 22:38 Dose: 150 mg Verapamil HCl (Calan Tab) 40 mg PO Q8 [facility] PRN Reason: Protocol Last Admin: 12/09/16 06:12 Dose: Not Given Warfarin Sodium (Coumadin) 7.5 mg PO 1800 [facility] PRN Reason: Protocol - Labs Labs: 12/07/16 06:30 12/07/16 06:04 PT 16.8 Seconds (9.9-11.8) H 12/09/16 07:12 INR 1.56 (0.93-1.08) H 12/09/16 07:12 APTT 49.2 Seconds (23.7-30.8) H 12/05/16 08:00 Attending/Attestation - Attestation I have personally seen and examined this patient.: Yes I have fully participated in the care of the patient.: Yes I have reviewed all pertinent clinical information, including history, physical exam and plan: Yes
--- NOTE | 2016-12-08 20:39 | PN ---
PULMONARY PROGRESS NOTE DATE: 12/08/2016 REFERRING PHYSICIAN: Axel Villagomez MD SUBJECTIVE: He is out of bed to reclining chair. Night was unremarkable. Doing well in therapy. No cough. No sputum production. No nausea, no vomiting, no diarrhea. Still have a trace leg swelling. Left leg wound is healing well. PHYSICAL EXAMINATION GENERAL: In no acute distress. VITAL SIGNS: Temperature 98, heart rate 69, respiratory rate is 20, blood pressure 116/77, pulse ox 96% on room air. HEENT: Moist mucous membrane. Crowded airway. NECK: Supple. No JVD. LUNGS: Had a fair airflow with few rhonchi. HEART: S1 and S2. ABDOMEN: Soft and nontender. No organomegaly. EXTREMITIES: Has a trace edema. Left leg wound healing well. NEUROLOGIC: Awake, alert, follows simple commands. MEDICATIONS: He is on Amaryl 4 mg daily, Ativan 1 mg twice a day, Verapamil 40 mg q.8 hours, Coumadin 10 mg will be given tonight, trazodone 150 mg at bedtime, DuoNeb q.4 hours, metformin 1000 mg twice a day, insulin coverage, digoxin 0.25 mg daily, Levemir 30 units subcu twice a day, metoprolol tartrate 50 mg twice a day, Lovenox 100 mg subcu twice a day, Tylenol p.r.n., Zestril 2.5 mg daily. LABORATORY DATA: Reviewed, noted INR 1.30, blood sugars 126. IMPRESSION AND PLAN: Cardiomyopathy, pulmonary hypertension, atrial fibrillation status post ablation therapy, has automatic implantable cardioverter defibrillator, sleep apnea syndrome, diabetes, hypertension, morbid obesity, chronic lung disease, peripheral vascular disease, and recurrent thromboembolic disease requiring thrombectomy. I spoke to the patient in detail, discussed importance of anticoagulation and risk of thromboembolic disease he expressed understanding, will get Coumadin 10 mg today. Sleep apnea precaution while sedation. Continue diuretics, bronchodilator, beta blockers. Thank you, and we will follow with you. Tia Godinez MD
[2016-12-09] MEDS: Insulin Reg-MEDIUM-Coverage SC SCH ×4 (06:38→21:47)
[2016-12-09 07:53] LABS: INR 1.56 (0.93-1.08)
--- NOTE | 2016-12-09 09:40 | CP.PCM.PN ---
<Yris Newell - Last Filed: 12/09/16 09:36> Subjective - Date & Time of Evaluation Date of Evaluation: 12/09/16 Time of Evaluation: 09:00 - Subjective Subjective: Progress Note - Dr. Stein 56 yo male pt seen at bedside in [facility] with Dr. Stein this morning for L leg pre -ulcerative lesions and bilateral lower extremity edema. Pt is seen resting in bed comfortably at time of visit, appears to be in NAD. Pt states that he just showered, denies any pain or discomfort to the lower extremities at this time. No complaints offered. Objective - Vital Signs/Intake and Output Vital Signs (last 24 hours): Temp Pulse Resp BP Pulse Ox 97.9 F 67 18 89/58 L 95 12/09/16 06:00 12/09/16 08:05 12/09/16 06:00 12/09/16 08:05 12/09/16 06:00 Intake and Output: 12/09/16 12/09/16 06:59 18:59 Intake Total 620 Balance 620 - Medications Medications: Current Medications Acetaminophen (Tylenol 325mg Tab) 650 mg PO Q6H PRN; Protocol PRN Reason: Pain, moderate (4-7) Albuterol/Ipratropium (Duoneb 3 Mg/0.5 Mg (3 Ml) Ud) 3 ml IH [id number] PRN; Protocol PRN Reason: sob/wheezing Digoxin (Lanoxin) 0.25 mg PO DAILY [facility]LON PRN Reason: Protocol Last Admin: 12/08/16 10:30 Dose: 0.25 mg Enoxaparin Sodium (Lovenox) 100 mg SC Q12H WILTON PRN Reason: Protocol Last Admin: 12/08/16 22:38 Dose: 100 mg Glimepiride (Amaryl) 4 mg PO 0730 [facility] PRN Reason: Protocol Last Admin: 12/09/16 08:02 Dose: 4 mg Insulin Detemir (Levemir) 30 unit SC 1000,2200 [facility] PRN Reason: Protocol Last Admin: 12/08/16 21:47 Dose: Not Given Insulin Human Regular (Humulin R Med) 0 units SC ACHS WILTON PRN Reason: Protocol Last Admin: 12/09/16 06:38 Dose: Not Given Lisinopril (Zestril) 2.5 mg PO DAILY [facility]TON PRN Reason: Protocol Last Admin: 12/08/16 10:32 Dose: 2.5 mg Lorazepam (Ativan) 1 mg PO BID [facility]TON PRN Reason: Protocol Last Admin: 12/08/16 17:37 Dose: 1 mg Metformin HCl (Glucophage) 1,000 mg PO 0800,1700 [facility] PRN Reason: Protocol Last Admin: 12/09/16 08:02 Dose: 1,000 mg Metoprolol Tartrate (Lopressor) 50 mg PO 0800,1800 [facility] PRN Reason: Protocol Last Admin: 12/09/16 08:05 Dose: Not Given Trazodone HCl (Desyrel) 150 mg PO HS [facility] PRN Reason: Protocol Last Admin: 12/08/16 22:38 Dose: 150 mg Verapamil HCl (Calan Tab) 40 mg PO Q8 [facility] PRN Reason: Protocol Last Admin: 12/09/16 06:12 Dose: Not Given Warfarin Sodium (Coumadin) 7.5 mg PO 1800 [facility] PRN Reason: Protocol - Labs Labs: 12/07/16 06:30 12/07/16 06:04 PT 16.8 Seconds (9.9-11.8) H 12/09/16 07:12 INR 1.56 (0.93-1.08) H 12/09/16 07:12 APTT 49.2 Seconds (23.7-30.8) H 12/05/16 08:00 - Constitutional Appears: Well, Non-toxic, No Acute Distress - Extremities Exam Extremities Exam: absent: Calf Tenderness Additional comments: VASC: DP and PT pulses non-palpable b/l, TG wnl, CFT < 3 sec to all digits, bilateral +1 pitting edema NEURO: Gross sensation diminished bilaterally DERM: Mild patchy erythema noted to anterior shins has decreased. Pre ulcerative lesions to anterolateral resendiz of left leg with scabbing noted, no open lesions, no ascending cellulitis, no fluctuance, no malodor, no acute clinical signs of infection. Superficial wound noted to R knee with granular base and surrounding erythema periwound appears dry. No fluctuance, malodor, purulence noted to wound. ORTHO: No tenderness to palpation anterolateral leg pre-ulcerative lesions - Neurological Exam Neurological Exam: Alert, Awake, Oriented x3 - Psychiatric Exam Psychiatric exam: Normal Affect, Normal Mood Assessment and Plan - Assessment and Plan (Free Text) Assessment: 56 y/o male with bilateral leg edema and pre ulcerative lesions to left leg Plan: Patient seen and evaluated at bedside w/ Dr. Stein present Chart, vitals, labs reviewed; afebrile Maxsorb and optifoam were applied to left knee, anterolateral pre-ulcerative lesions left open to air Stable, podiatry will follow while in house. <Tha Stein - Last Filed: 12/09/16 10:06> Objective - Vital Signs/Intake and Output Vital Signs (last 24 hours): Temp Pulse Resp BP Pulse Ox 97.9 F 67 18 89/58 L 95 12/09/16 06:00 12/09/16 08:05 12/09/16 06:00 12/09/16 08:05 12/09/16 06:00 Intake and Output: 12/09/16 12/09/16 06:59 18:59 Intake Total 620 Balance 620 - Medications Medications: Current Medications Acetaminophen (Tylenol 325mg Tab) 650 mg PO Q6H PRN; Protocol PRN Reason: Pain, moderate (4-7) Albuterol/Ipratropium (Duoneb 3 Mg/0.5 Mg (3 Ml) Ud) 3 ml IH [id number] PRN; Protocol PRN Reason: sob/wheezing Digoxin (Lanoxin) 0.25 mg PO DAILY WILTON PRN Reason: Protocol Last Admin: 12/08/16 10:30 Dose: 0.25 mg Enoxaparin Sodium (Lovenox) 100 mg SC Q12H WILTON PRN Reason: Protocol Last Admin: 12/08/16 22:38 Dose: 100 mg Glimepiride (Amaryl) 4 mg PO 0730 [facility] PRN Reason: Protocol Last Admin: 12/09/16 08:02 Dose: 4 mg Insulin Detemir (Levemir) 30 unit SC 1000,2200 [facility] PRN Reason: Protocol Last Admin: 12/08/16 21:47 Dose: Not Given Insulin Human Regular (Humulin R Med) 0 units SC ACHS WILTON PRN Reason: Protocol Last Admin: 12/09/16 06:38 Dose: Not Given Lisinopril (Zestril) 2.5 mg PO DAILY W[facility]TON PRN Reason: Protocol Last Admin: 12/08/16 10:32 Dose: 2.5 mg Lorazepam (Ativan) 1 mg PO BID WILTON PRN Reason: Protocol Last Admin: 12/08/16 17:37 Dose: 1 mg Metformin HCl (Glucophage) 1,000 mg PO 0800,1700 W[facility]TON PRN Reason: Protocol Last Admin: 12/09/16 08:02 Dose: 1,000 mg Metoprolol Tartrate (Lopressor) 50 mg PO 0800,1800 WILTON PRN Reason: Protocol Last Admin: 12/09/16 08:05 Dose: Not Given Trazodone HCl (Desyrel) 150 mg PO HS WILTON PRN Reason: Protocol Last Admin: 12/08/16 22:38 Dose: 150 mg Verapamil HCl (Calan Tab) 40 mg PO Q8 WILTON PRN Reason: Protocol Last Admin: 12/09/16 06:12 Dose: Not Given Warfarin Sodium (Coumadin) 7.5 mg PO 1800 W[place]TON PRN Reason: Protocol - Labs Labs: 12/07/16 06:30 12/07/16 06:04 PT 16.8 Seconds (9.9-11.8) H 12/09/16 07:12 INR 1.56 (0.93-1.08) H 12/09/16 07:12 APTT 49.2 Seconds (23.7-30.8) H 12/05/16 08:00 Attending/Attestation - Attestation I have personally seen and examined this patient.: Yes I have fully participated in the care of the patient.: Yes I have reviewed all pertinent clinical information, including history, physical exam and plan: Yes
[2016-12-09] MEDS: Enoxaparin 100 mg Syringe SC SCH ×2 (10:00→21:47)
[2016-12-09] MEDS: Digoxin 250 mcg (0.25 mg) Tab PO SCH (10:01)
[2016-12-09] MEDS: Insulin Detemir 100 units/ml Vial (Levemir) SC SCH ×2 (10:02→21:47)
--- NOTE | 2016-12-09 15:03 | PN ---
DATE: 12/09/2016 SUBJECTIVE: The patient has no complaints of any chest pain, no shortness of breath, no headache. PHYSICAL EXAMINATION: VITAL SIGNS: Temperature is 97.9, pulse is 71, blood pressure is 113/71 and respirations 18. GENERAL: The patient is lying in bed, flat, comfortable. HEENT: No oral lesion. Anicteric sclerae. Moist mucosa. NECK: No JVD, adenopathy, or thyromegaly. CARDIOVASCULAR: S1 and S2, regular. No murmurs, rubs, or gallops. LUNGS: Clear to auscultation bilaterally. No wheeze, rales, or rhonchi. ABDOMEN: Bowel sounds are positive, soft, nontender and nondistended. EXTREMITIES: no cyanosis, clubbing or edema. LABS: INR is 1.56. ASSESSMENT: 1. Peripheral arterial disease with angioplasty of left leg. 2. Acute chronic obstructive pulmonary disease, resolved. 3. Acute congestive heart failure secondary to systolic dysfunction, resolved. 4. Diabetes type 2. 5. Atrial fibrillation, on Coumadin. 6. Hypertension. 7. Nonadherence/noncompliance. 8. History of left leg thrombectomy. PLAN: The patient is currently comfortable. The patient's INR remains subtherapeutic. The patient is on verapamil for his AFib. The patient is on trazodone. He is going to continue with metformin for his diabetes. The patient is on Levemir for his insulin. The patient is on Lovenox until he is therapeutic. He will have another INR done tomorrow. Once his INR is between 2 and 3, he can be discharged home to followup as an outpatient. He has been advised of the importance of compliance and adherence to his regimen. Axel Villagomez MD
--- NOTE | 2016-12-09 15:26 | PN ---
DATE: 12/09/2016 In room 313, bed 1. REASON FOR CONSULTATION: Cardiomyopathy, chronic atrial fibrillation, AICD placement, deconditioning. SUBJECTIVE: The patient is sitting in chair without any chest pain, shortness of breath or palpation. He is getting physical therapy without any symptoms. PHYSICAL EXAMINATION: VITAL SIGNS: Blood pressure 113/71, respirations 18, pulse 67, temperature 97.9. HEENT: Head is normocephalic. Eyes; Pupils normal, conjunctivae normal. NECK: JVP low, carotid equal. THORAX: AP diameter normal. CARDIOVASCULAR: S1, S2. AICD insertion on left upper chest, healed well. LUNGS: Clear. ABDOMEN: Protuberant. No organomegaly. EXTREMITIES: No clubbing. No cyanosis. LABORATORY DATA: WBC 6.8, hemoglobin 11.9, hematocrit 35.8, platelets 142. Random sugar 105, sodium 142, potassium 4.1, BUN 13, creatinine 0.7. DIAGNOSES: Nonischemic cardiomyopathy, atrial fibrillation, morbid obesity, diabetes, hypertension, hyperlipidemia, status post automated implantable cardioverter-defibrillator insertion, recent MUGA scan showed left ventricular ejection fraction of 43%, but the patient is in atrial fibrillation, history of peripheral vascular disease, status post percutaneous transluminal angioplasty for peripheral vascular disease. PLAN: The patient's prothrombin time is 16.8 and INR 1.56. The patient continued on verapamil 40 q. 8 hours, glimepiride 4 mg daily, warfarin 7.5 mg p.o. daily, Desyrel 150 mg p.o. at bedtime, DuoNeb hand nebulizer therapy, metformin 1000 mg b.i.d., insulin as ordered, digoxin 0.25 daily, Levemir insulin 30 units subq b.i.d., metoprolol tartrate 50 mg b.i.d., Lovenox 100 mg subq q. 12 hours, lisinopril 2.5 mg p.o. daily. We will continue Lovenox until PT/INR become therapeutic. We will continue physical therapy. We will follow with you. Tia Cabello MD
[2016-12-09] MEDS ORDERED: Loperamide Hydrochloride 1 mg/5 ml Cup PO PRN (20:45)
--- NOTE | 2016-12-10 00:03 | CP.PCM.PN ---
Subjective - Date & Time of Evaluation Date of Evaluation: 12/08/16 Time of Evaluation: 10:00 - Subjective Subjective: Ambulating without discomfort. No shortness of breath. INR still subtherapeutic. On lovenox. No chest pain. No leg pain. Objective - Vital Signs/Intake and Output Vital Signs (last 24 hours): Temp Pulse Resp BP Pulse Ox 97.3 F L 68 20 101/62 97 12/09/16 16:00 12/09/16 17:19 12/09/16 16:00 12/09/16 21:46 12/09/16 16:00 - Medications Medications: Current Medications Acetaminophen (Tylenol 325mg Tab) 650 mg PO Q6H PRN; Protocol PRN Reason: Pain, moderate (4-7) Albuterol/Ipratropium (Duoneb 3 Mg/0.5 Mg (3 Ml) Ud) 3 ml IH [id number] PRN; Protocol PRN Reason: sob/wheezing Digoxin (Lanoxin) 0.25 mg PO DAILY WILTON PRN Reason: Protocol Last Admin: 12/09/16 10:01 Dose: 0.25 mg Enoxaparin Sodium (Lovenox) 100 mg SC Q12H WILTON PRN Reason: Protocol Last Admin: 12/09/16 21:47 Dose: 100 mg Glimepiride (Amaryl) 4 mg PO 0730 [facility] PRN Reason: Protocol Last Admin: 12/09/16 08:02 Dose: 4 mg Insulin Detemir (Levemir) 30 unit SC 1000,2200 WILTON PRN Reason: Protocol Last Admin: 12/09/16 21:47 Dose: Not Given Insulin Human Regular (Humulin R Med) 0 units SC ACHS WILTON PRN Reason: Protocol Last Admin: 12/09/16 21:47 Dose: Not Given Lisinopril (Zestril) 2.5 mg PO DAILY W[place]TON PRN Reason: Protocol Last Admin: 12/09/16 10:03 Dose: 2.5 mg Loperamide HCl (Imodium) 2 mg PO Q6H PRN PRN Reason: Diarrhea Last Admin: 12/09/16 21:58 Dose: 2 mg Lorazepam (Ativan) 1 mg PO BID WILTON PRN Reason: Protocol Last Admin: 12/09/16 17:16 Dose: 1 mg Metformin HCl (Glucophage) 1,000 mg PO 0800,1700 WILTON PRN Reason: Protocol Last Admin: 12/09/16 17:19 Dose: 1,000 mg Metoprolol Tartrate (Lopressor) 50 mg PO 0800,1800 WILTON PRN Reason: Protocol Last Admin: 12/09/16 17:19 Dose: 50 mg Trazodone HCl (Desyrel) 150 mg PO HS WILTON PRN Reason: Protocol Last Admin: 12/09/16 21:46 Dose: 150 mg Verapamil HCl (Calan Tab) 40 mg PO Q8 WILTON PRN Reason: Protocol Last Admin: 12/09/16 21:46 Dose: Not Given Warfarin Sodium (Coumadin) 7.5 mg PO 1800 WILTON PRN Reason: Protocol Last Admin: 12/09/16 17:18 Dose: 7.5 mg - Labs Labs: 12/07/16 06:30 12/07/16 06:04 PT 16.8 Seconds (9.9-11.8) H 12/09/16 07:12 INR 1.56 (0.93-1.08) H 12/09/16 07:12 APTT 49.2 Seconds (23.7-30.8) H 12/05/16 08:00 - Constitutional Appears: Well, Non-toxic - Head Exam Head Exam: ATRAUMATIC, NORMAL INSPECTION, NORMOCEPHALIC - Eye Exam Eye Exam: Normal appearance - ENT Exam ENT Exam: Mucous Membranes Moist - Neck Exam Neck Exam: Normal Inspection - Respiratory Exam Respiratory Exam: Clear to Ausculation Bilateral, NORMAL BREATHING PATTERN - Cardiovascular Exam Cardiovascular Exam: REGULAR RHYTHM, +S1, +S2 - GI/Abdominal Exam GI & Abdominal Exam: Soft, Normal Bowel Sounds - Extremities Exam Extremities Exam: Normal Inspection - Back Exam Back Exam: NORMAL INSPECTION - Neurological Exam Neurological Exam: Alert, CN II-XII Intact, Normal Gait - Psychiatric Exam Psychiatric exam: Normal Affect - Skin Skin Exam: Normal Color, Warm Assessment and Plan - Assessment and Plan (Free Text) Assessment: 1. DVT right femoral vein 2. COPD 3. CHF 4. A-Fib 5. HTN 6. PVD Plan : currently on lovenox , coumadin. INR subtherapeutic. Coumadin increased to 10 mg. Continue current meds. Continue PT.
--- NOTE | 2016-12-10 02:55 | PN ---
DATE: 12/09/2016 PULMONARY PROGRESS NOTE REFERRING PHYSICIAN: Axel Villagomez MD SUBJECTIVE: He is sitting up in a chair. Family and friend at bedside. Night was unremarkable. No headache. No rhinitis. No nausea, no vomiting, no diarrhea. Still have leg swelling. Leg pain is better. PHYSICAL EXAMINATION GENERAL: In no acute distress. VITAL SIGNS: Temperature is 98, heart rate is 67, respiratory rate is 20, blood pressure 113/71, and pulse ox 95% on room air. HEENT: Moist mucous membrane. Crowded airway. NECK: Supple. No JVD. LUNGS: Has a fair airflow with few rhonchi. HEART: S1 and S2. ABDOMEN: Soft and nontender. No organomegaly. EXTREMITIES: Has trace edema. NEUROLOGIC: Awake and alert. Follows simple commands. MEDICATIONS: He is on Amaryl 4 mg daily, Ativan 1 mg twice a day, also on Calan 40 mg q. 8 hours, Coumadin 7.5 mg daily, trazodone 150 mg at bedtime, DuoNeb q. 6 hours p.r.n., metformin 1000 mg twice a day, insulin coverage, digoxin 0.25 mg daily, Levemir 30 units subcu twice a day, metoprolol tartrate 50 mg q. 12 hours, Lovenox 100 mg subcu q. 12 hours, Tylenol p.r.n., and lisinopril 2.5 mg daily. LABORATORY DATA: Shows INR 1.56. Blood sugar 105. IMPRESSION AND PLAN: Cardiomyopathy; pulmonary hypertension; atrial fibrillation, status post ablation therapy, has an automatic-implantable cardioverter defibrillator; sleep apnea syndrome; diabetes; hypertension; morbid obesity; chronic lung disease; peripheral vascular disease; also recurrent thromboembolic disease, requiring thrombectomy. I spoke to the patient in detail. Encourage CPAP use. May benefit from nasal pillow mask, which he will get as an outpatient. 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 Continue Coumadin, INR in the morning. Fall precaution. Thank you, and we will follow with you. Tia Godinez MD
[2016-12-10] MEDS: Insulin Reg-MEDIUM-Coverage SC SCH ×4 (06:38→22:03)
[2016-12-10 08:59] LABS: INR 1.86 (0.93-1.08)
[2016-12-10] MEDS: Digoxin 250 mcg (0.25 mg) Tab PO SCH (09:44)
[2016-12-10] MEDS: Insulin Detemir 100 units/ml Vial (Levemir) SC SCH ×2 (09:45→22:03)
[2016-12-10] MEDS: Enoxaparin 100 mg Syringe SC SCH ×2 (09:48→22:03)
--- NOTE | 2016-12-10 09:55 | CP.PCM.PN ---
<Yris Newell - Last Filed: 12/10/16 09:52> Subjective - Date & Time of Evaluation Date of Evaluation: 12/10/16 Time of Evaluation: 08:45 - Subjective Subjective: Progress Note - Dr. Stein 56 yo male pt seen at bedside in [facility] this morning. Pt seen resting comfortably in the bedside chair with feet elevated. Reports some mild tenderness to the left leg wounds today. Denies f/n/v/c/sob/cp/weakness at this time. Offers no other complaints. Objective - Vital Signs/Intake and Output Vital Signs (last 24 hours): Temp Pulse Resp BP Pulse Ox 97.3 F L 70 20 97/65 L 97 12/09/16 16:00 12/10/16 08:22 12/09/16 16:00 12/10/16 08:22 12/09/16 16:00 - Medications Medications: Current Medications Acetaminophen (Tylenol 325mg Tab) 650 mg PO Q6H PRN; Protocol PRN Reason: Pain, moderate (4-7) Albuterol/Ipratropium (Duoneb 3 Mg/0.5 Mg (3 Ml) Ud) 3 ml IH [id number] PRN; Protocol PRN Reason: sob/wheezing Digoxin (Lanoxin) 0.25 mg PO DAILY [facility]TON PRN Reason: Protocol Last Admin: 12/09/16 10:01 Dose: 0.25 mg Enoxaparin Sodium (Lovenox) 100 mg SC Q12H W[place]TON PRN Reason: Protocol Last Admin: 12/09/16 21:47 Dose: 100 mg Glimepiride (Amaryl) 4 mg PO 0730 [facility] PRN Reason: Protocol Last Admin: 12/10/16 08:20 Dose: 4 mg Insulin Detemir (Levemir) 30 unit SC 1000,2200 [facility] PRN Reason: Protocol Last Admin: 12/09/16 21:47 Dose: Not Given Insulin Human Regular (Humulin R Med) 0 units SC ACHS W[facility]TON PRN Reason: Protocol Last Admin: 12/10/16 06:38 Dose: Not Given Lisinopril (Zestril) 2.5 mg PO DAILY [facility]TON PRN Reason: Protocol Last Admin: 12/09/16 10:03 Dose: 2.5 mg Loperamide HCl (Imodium) 2 mg PO Q6H PRN PRN Reason: Diarrhea Last Admin: 12/09/16 21:58 Dose: 2 mg Lorazepam (Ativan) 1 mg PO BID WILTON PRN Reason: Protocol Last Admin: 12/09/16 17:16 Dose: 1 mg Metformin HCl (Glucophage) 1,000 mg PO 0800,1700 [facility] PRN Reason: Protocol Last Admin: 12/10/16 08:21 Dose: 1,000 mg Metoprolol Tartrate (Lopressor) 50 mg PO 0800,1800 WILTON PRN Reason: Protocol Last Admin: 12/10/16 08:22 Dose: Not Given Trazodone HCl (Desyrel) 150 mg PO HS W[place]TON PRN Reason: Protocol Last Admin: 12/09/16 21:46 Dose: 150 mg Verapamil HCl (Calan Tab) 40 mg PO Q8 [facility] PRN Reason: Protocol Last Admin: 12/10/16 05:22 Dose: Not Given Warfarin Sodium (Coumadin) 7.5 mg PO 1800 [facility]TON PRN Reason: Protocol Last Admin: 12/09/16 17:18 Dose: 7.5 mg - Labs Labs: 12/07/16 06:30 12/07/16 06:04 PT 20.1 Seconds (9.9-11.8) H 12/10/16 08:41 INR 1.86 (0.93-1.08) H 12/10/16 08:41 APTT 49.2 Seconds (23.7-30.8) H 12/05/16 08:00 - Constitutional Appears: Well, Non-toxic, No Acute Distress - Extremities Exam Extremities Exam: absent: Calf Tenderness Additional comments: VASC: DP and PT pulses non-palpable b/l, TG wnl, CFT < 3 sec to all digits, bilateral +1 pitting edema NEURO: Gross sensation diminished bilaterally DERM: Mild patchy erythema noted to anterior shins has decreased. Pre ulcerative lesions to anterolateral resendiz of left leg with scabbing noted, no open lesions, no ascending cellulitis, no fluctuance, no malodor, no acute clinical signs of infection. Superficial wound noted to R knee with granular base and surrounding erythema periwound appears dry. No fluctuance, malodor, purulence noted to wound. ORTHO: No tenderness to palpation anterolateral leg pre-ulcerative lesions - Neurological Exam Neurological Exam: Alert, Awake, Oriented x3 - Psychiatric Exam Psychiatric exam: Normal Affect, Normal Mood Assessment and Plan - Assessment and Plan (Free Text) Assessment: 56 y/o male with bilateral leg edema and pre ulcerative lesions to left leg Plan: Patient seen and evaluated at bedside w/ Dr. Stein present Chart, vitals, labs reviewed; afebrile Optifoam applied to left knee, anterolateral pre-ulcerative lesions left open to air Stable, podiatry will follow while in house. <Tha Stein - Last Filed: 12/12/16 11:01> Objective - Vital Signs/Intake and Output Vital Signs (last 24 hours): Temp Pulse Resp BP Pulse Ox 98 F 69 18 109/64 90 L 12/11/16 17:18 12/12/16 08:05 12/11/16 17:18 12/12/16 08:05 12/11/16 17:18 Intake and Output: 12/12/16 12/12/16 06:59 18:59 Intake Total 520 Balance 520 - Medications Medications: Current Medications Acetaminophen (Tylenol 325mg Tab) 650 mg PO Q6H PRN; Protocol PRN Reason: Pain, moderate (4-7) Albuterol/Ipratropium (Duoneb 3 Mg/0.5 Mg (3 Ml) Ud) 3 ml IH [id number] PRN; Protocol PRN Reason: sob/wheezing Digoxin (Lanoxin) 0.25 mg PO DAILY WILTON PRN Reason: Protocol Last Admin: 12/11/16 10:19 Dose: 0.25 mg Enoxaparin Sodium (Lovenox) 100 mg SC Q12H WILTON PRN Reason: Protocol Last Admin: 12/11/16 22:12 Dose: 100 mg Glimepiride (Amaryl) 4 mg PO 0730 [facility] PRN Reason: Protocol Last Admin: 12/12/16 08:04 Dose: 4 mg Insulin Detemir (Levemir) 30 unit SC 1000,2200 [facility] PRN Reason: Protocol Last Admin: 12/11/16 22:12 Dose: 30 unit Insulin Human Regular (Humulin R Med) 0 units SC ACHS WILTON PRN Reason: Protocol Last Admin: 12/12/16 08:01 Dose: Not Given Lisinopril (Zestril) 2.5 mg PO DAILY [facility]TON PRN Reason: Protocol Last Admin: 12/11/16 10:20 Dose: 2.5 mg Loperamide HCl (Imodium) 2 mg PO Q6H PRN PRN Reason: Diarrhea Last Admin: 12/09/16 21:58 Dose: 2 mg Lorazepam (Ativan) 1 mg PO BID [facility]ILTON PRN Reason: Protocol Last Admin: 12/11/16 17:36 Dose: 1 mg Metformin HCl (Glucophage) 1,000 mg PO 0800,1700 W[place] PRN Reason: Protocol Last Admin: 12/12/16 08:04 Dose: 1,000 mg Metoprolol Tartrate (Lopressor) 50 mg PO 0800,1800 WILTON PRN Reason: Protocol Last Admin: 12/12/16 08:05 Dose: 50 mg Trazodone HCl (Desyrel) 150 mg PO HS WILTON PRN Reason: Protocol Last Admin: 12/11/16 22:11 Dose: 150 mg Verapamil HCl (Calan Tab) 40 mg PO Q8 WILTON PRN Reason: Protocol Last Admin: 12/12/16 05:48 Dose: Not Given Warfarin Sodium (Coumadin) 10 mg PO 1800 WILTON PRN Reason: Protocol Last Admin: 12/11/16 17:36 Dose: 10 mg - Labs Labs: 12/07/16 06:30 12/07/16 06:04 PT 19.2 Seconds (9.9-11.8) H 12/12/16 05:20 INR 1.78 (0.93-1.08) H 12/12/16 05:20 APTT 49.2 Seconds (23.7-30.8) H 12/05/16 08:00 Attending/Attestation - Attestation I have personally seen and examined this patient.: Yes I have fully participated in the care of the patient.: Yes I have reviewed all pertinent clinical information, including history, physical exam and plan: Yes
--- NOTE | 2016-12-11 01:35 | PN ---
PULMONARY PROGRESS NOTE DATE: 12/10/2016 REFERRING PHYSICIAN: Dr. Axel Villagomez. SUBJECTIVE: The patient is sitting up in a recliner chair. Night was unremarkable. Doing well in therapy. No headaches. No rhinitis. No nausea, no vomiting, and no diarrhea. Still have leg swelling. PHYSICAL EXAMINATION: GENERAL: In no acute distress. VITAL SIGNS: Temperature is 98, heart rate is 67, respiratory rate is 20, blood pressure 111/61, pulse ox 96% on room air. HEENT: Moist mucous membrane. Crowded airway. Mallampati score is IV. NECK: Supple. No JVD. LUNGS: Fair airflow with few rhonchi. HEART: S1 and S2. ABDOMEN: Soft and nontender. No organomegaly. EXTREMITIES: Trace edema. NEUROLOGIC: Awake and alert. Follow simple command. MEDICATIONS: He is on Amaryl 4 mg daily, Ativan 1 mg twice a day, verapamil 40 mg q.8h., Coumadin 7.5 mg daily, trazodone 150 mg at bedtime, DuoNeb q.6h., metformin is 1000 mg twice a day, insulin coverage, Imodium 2 mg q.6h. p.r.n., Digoxin 0.25 mg daily, Levemir 30 units subcutaneous q.12h., metoprolol tartrate 50 mg twice a day, Lovenox 100 mg subcutaneous twice a day, Tylenol p.r.n., Zestril 2.5 mg daily. LABORATORY DATA: Shows INR 1.86, blood sugar this morning 153. IMPRESSION AND PLAN: Cardiomyopathy, pulmonary hypertension, atrial fibrillation, status post ablation therapy, has an AICD, sleep apnea syndrome, diabetes, hypertension, morbid obesity, chronic lung disease, peripheral vascular disease, recurrent thromboembolic disease. Continue sleep apnea precaution. Keep head 45 degree. Careful with sedation. Diuretics, beta-rahat, and afterload toll line repairer. Coumadin, INR in the morning. Fall precaution. Thank you and we will follow with you. Tia Godinez MD
[2016-12-11] MEDS: Insulin Reg-MEDIUM-Coverage SC SCH ×4 (06:45→22:12)
[2016-12-11 07:35] LABS: INR 1.73 (0.93-1.08)
--- NOTE | 2016-12-11 09:53 | PN ---
DATE: 12/10/2016 LOCATION: The patient is in room 313, bed 1. REASON FOR CONSULTATION: Cardiomyopathy, chronic atrial fibrillation, AICD placement, and deconditioning. SUBJECTIVE: The patient is sitting in chair without any chest pain, shortness of breath, or palpitation.. He is asymptomatic while getting physical therapy. PHYSICAL EXAMINATION: VITAL SIGNS: Blood pressure is 121/76, respirations are 18, pulse is 68, and the patient is afebrile. HEENT: Head is normocephalic. Eyes, pupils normal. Conjunctiva are normal. NECK: JVP low and carotid equal. Thorax: AP diameter normal. LUNGS: Clear. CARDIOVASCULAR: S1 and S2. ABDOMEN: Protuberant. No organomegaly. EXTREMITIES: No clubbing. No cyanosis. LABORATORY DATA: AICD site on chest showing good healing. Random sugar today's 140. Other labs were done previously and there were reported normal on previous notes. DIAGNOSES: Nonischemic cardiomyopathy, atrial fibrillation, status post automatic implantable cardioverter defibrillator insertion, diabetes, hypertension, hyperlipidemia, morbid obesity, recent MUGA scan showed left ventricular ejection fraction of 43%, but the patient is in atrial fibrillation, history of peripheral vascular disease, status post percutaneous transluminal coronary angioplasty for peripheral vascular disease. PLAN: The patient's prothrombin today's 20.1 and INR is 1.86. The patient is on warfarin 7.5 mg daily, verapamil 40 mg q. 8 hours, Desyrel 150 mg p.o. at bedtime, DuoNeb hand nebulizer therapy, metformin 1000 mg b.i.d., digoxin 0.25 daily, insulin as ordered, metoprolol 50 mg b.i.d., Lovenox 100 mg subcutaneous q.12 hours, lisinopril 2.5 mg p.o. daily. We will continue present therapy and continue physical therapy and we will follow. Tia Cabello MD
[2016-12-11] MEDS: Digoxin 250 mcg (0.25 mg) Tab PO SCH (10:19)
[2016-12-11] MEDS: Insulin Detemir 100 units/ml Vial (Levemir) SC SCH ×2 (10:19→22:12)
[2016-12-11] MEDS: Enoxaparin 100 mg Syringe SC SCH ×2 (10:20→22:12)
[2016-12-11 10:24] VITALS: PULSE 66
[2016-12-11 10:55] VITALS: RESP 18
--- NOTE | 2016-12-11 13:38 | PN ---
DATE: 12/11/2016 LOCATION: The patient is in room 313, bed 1. REASON FOR CONSULTATION: Cardiomyopathy, chronic atrial fibrillation, AICD placement, and deconditioning. SUBJECTIVE: The patient is sitting in chair without any cardiac symptoms like chest pain, shortness of breath, or palpitation. Doing physical therapy, also the patient not getting any cardiac symptoms. PHYSICAL EXAMINATION: VITAL SIGNS: Blood pressure 100/61, respirations are 18, pulse 69, temperature 98.2. HEENT: Head is normocephalic. Eyes, pupils normal. Conjunctiva normal. NECK: JVP low. Carotid equal. Thorax, AP diameter normal. LUNGS: Clear. CARDIOVASCULAR: S1 and S2. ABDOMEN: Soft. No tenderness. No organomegaly. Bowel sounds normal. EXTREMITIES: No clubbing. No cyanosis. LABORATORY DATA: Today's prothrombin time is 18.7 with INR 1.73. Other labs were done on other previous day and and there were reported no previous notes. DIAGNOSES: Nonischemic cardiomyopathy, atrial fibrillation, status post automatic implantable cardioverter defibrillator insertion, diabetes, hypertension, hyperlipidemia, morbid obesity, recent MUGA scan showed left ventricular ejection fraction of 43%, but the patient is in atrial fibrillation, history of peripheral vascular disease, status post percutaneous transluminal angioplasty for peripheral vascular disease. PLAN: The patient's INR is not therapeutic yet. So, the patient is getting extra 2.5 warfarin today and warfarin dose is increased from 7.5 to 10 mg a day. The patient is on verapamil 40 mg q.8 hours and digoxin 0.25 daily. We will change verapamil to long-acting 120 p.o. daily. The patient is getting Coumadin 2.5 extra dose today and then dose is changed to 10 mg daily. The patient also getting Lopressor 50 b.i.d., Lovenox 100 mg subcutaneous q.12 hours till PT/INR is therapeutic. Lisinopril 2.5 mg daily. The patient is also on metformin 1000 b.i.d. We will continue present therapy and follow with you. Tia Cabello MD
--- NOTE | 2016-12-11 19:58 | PN ---
PULMONARY PROGRESS NOTE DATE: 12/11/2016 REFERRING PHYSICIAN: Axel Villagomez MD SUBJECTIVE: She is out of bed to reclining chair. Night was unremarkable. Not very happy that INR is not therapeutic. No headache. No rhinitis. No nausea. No vomiting. No diarrhea. Has trace leg swelling. OBJECTIVE: GENERAL: In no acute distress. VITAL SIGNS: Temperature 98, heart rate 69, respiratory rate is 20, blood pressure 100/61, and pulse oximetry 95% on room air. HEENT: Moist mucous membrane. Crowded airway. NECK: Supple. No JVD. Short thick neck. LUNGS: Had a fair airflow with rhonchi. HEART: S1 and S2. ABDOMEN: Soft, nontender. No organomegaly. EXTREMITIES: Does have edema. NEUROLOGICAL: Awake and alert. Follow simple commands. MEDICATIONS: She is on Amaryl 4 mg daily, Ativan 1 mg twice a day, verapamil 40 mg q. 8 hours, Coumadin 10 mg will be given tonight, trazodone 150 mg at bedtime, DuoNeb q. 6 hours, metformin 1000 mg twice a day, insulin coverage, loperamide is 2 mg q. 6 hours p.r.n., digoxin 0.25 mg daily, Levemir 30 units subcutaneous twice a day, metoprolol tartrate 50 mg twice a day, Lovenox 100 mg subcutaneous q. 12 hours, Tylenol p.r.n. basis, and Zestril 2.5 mg daily. LABORATORY DATA: Shows INR of 1.73. Blood sugar is 153. IMPRESSION AND PLAN: Cardiomyopathy, pulmonary hypertension, atrial fibrillation status post ablation therapy, automatic implantable cardioverter-defibrillator, sleep apnea syndrome, diabetes, hypertension, morbid obesity, chronic lung disease, peripheral vascular disease, recurrent thromboembolic disease. Continue bronchodilator. Keep head 45 degrees. Diuretics, afterload assistant teacher primary. Increase the dose of Coumadin to 10 mg, INR in the morning. Fall precautions. Spoke about compliant of anticoagulation, risk-benefit ratio, the patient expressed understanding, and she will follow the instruction. Thank you and we will follow with you. Tia Godinez MD
--- NOTE | 2016-12-11 20:58 | CP.PCM.PN ---
Subjective - Date & Time of Evaluation Date of Evaluation: 12/11/16 Time of Evaluation: 15:00 - Subjective Subjective: Podiatry Progress Note - Dr. Marti 56 year old male patient seen in [facility] this morning for left leg pre-ulcerative lesions and left knee wound. Patient seen out of bed and in chair, legs not elevated. Patient denies any pain to his left leg currently. Patient states he was supposed to be discharged on Sunday but is staying until his INR increases. Patient denies any acute events overnight. Patient denies N/V/F/D/C/SOB/calf pain. No other pedal complaints at this time. Objective - Vital Signs/Intake and Output Vital Signs (last 24 hours): Temp Pulse Resp BP Pulse Ox 98 F 70 18 111/65 90 L 12/11/16 17:18 12/11/16 17:37 12/11/16 17:18 12/11/16 17:37 12/11/16 17:18 - Medications Medications: Current Medications Acetaminophen (Tylenol 325mg Tab) 650 mg PO Q6H PRN; Protocol PRN Reason: Pain, moderate (4-7) Albuterol/Ipratropium (Duoneb 3 Mg/0.5 Mg (3 Ml) Ud) 3 ml IH [id number] PRN; Protocol PRN Reason: sob/wheezing Digoxin (Lanoxin) 0.25 mg PO DAILY WILTON PRN Reason: Protocol Last Admin: 12/11/16 10:19 Dose: 0.25 mg Enoxaparin Sodium (Lovenox) 100 mg SC Q12H WILTON PRN Reason: Protocol Last Admin: 12/11/16 10:20 Dose: 100 mg Glimepiride (Amaryl) 4 mg PO 0730 WILTON PRN Reason: Protocol Last Admin: 12/11/16 07:58 Dose: 4 mg Insulin Detemir (Levemir) 30 unit SC 1000,2200 WILTON PRN Reason: Protocol Last Admin: 12/11/16 10:19 Dose: 30 unit Insulin Human Regular (Humulin R Med) 0 units SC ACHS WILTON PRN Reason: Protocol Last Admin: 12/11/16 17:33 Dose: Not Given Lisinopril (Zestril) 2.5 mg PO DAILY WILTON PRN Reason: Protocol Last Admin: 12/11/16 10:20 Dose: 2.5 mg Loperamide HCl (Imodium) 2 mg PO Q6H PRN PRN Reason: Diarrhea Last Admin: 12/09/16 21:58 Dose: 2 mg Lorazepam (Ativan) 1 mg PO BID WILTON PRN Reason: Protocol Last Admin: 12/11/16 17:36 Dose: 1 mg Metformin HCl (Glucophage) 1,000 mg PO 0800,1700 WILTON PRN Reason: Protocol Last Admin: 12/11/16 17:36 Dose: 1,000 mg Metoprolol Tartrate (Lopressor) 50 mg PO 0800,1800 WILTON PRN Reason: Protocol Last Admin: 12/11/16 17:37 Dose: 50 mg Trazodone HCl (Desyrel) 150 mg PO HS WILTON PRN Reason: Protocol Last Admin: 12/10/16 22:03 Dose: 150 mg Verapamil HCl (Calan Tab) 40 mg PO Q8 WILTON PRN Reason: Protocol Last Admin: 12/11/16 14:00 Dose: Not Given Warfarin Sodium (Coumadin) 10 mg PO 1800 WILTON PRN Reason: Protocol Last Admin: 12/11/16 17:36 Dose: 10 mg - Labs Labs: 12/07/16 06:30 12/07/16 06:04 PT 18.7 Seconds (9.9-11.8) H 12/11/16 07:22 INR 1.73 (0.93-1.08) H 12/11/16 07:22 APTT 49.2 Seconds (23.7-30.8) H 12/05/16 08:00 - Constitutional Appears: Well, Non-toxic, No Acute Distress - Extremities Exam Additional comments: VASC: DP and PT pulses non-palpable b/l, TG wnl, CFT < 3 sec to all digits, bilateral +1 pitting edema NEURO: Gross sensation diminished bilaterally DERM: Mild patchy erythema noted to anterior shins has decreased. Pre ulcerative lesions to anterolateral resendiz of left leg with scabbing noted, no open lesions, no ascending cellulitis, no fluctuance, no malodor, no acute clinical signs of infection. Superficial wound noted to R knee with granular base and surrounding erythema periwound appears dry. No fluctuance, malodor, purulence noted to wound. ORTHO: No tenderness to palpation anterolateral leg pre-ulcerative lesions - Neurological Exam Neurological Exam: Alert, Awake, Oriented x3 - Psychiatric Exam Psychiatric exam: Normal Affect, Normal Mood Assessment and Plan - Assessment and Plan (Free Text) Assessment: 56 y/o male with bilateral leg edema and pre ulcerative lesions to left leg Plan: Patient seen and evaluated Discussed with attending, Dr. Marti Chart, vitals, labs reviewed = afebrile, INR subtherapeutic @ 1.73 Maxsorb and optifoam applied to left knee wound Anterolateral left leg pre-ulcerative lesions open to air Podiatry will continue to follow while in house
[2016-12-12 06:02] LABS: INR 1.78 (0.93-1.08)
[2016-12-12] MEDS: Insulin Reg-MEDIUM-Coverage SC SCH (08:01)
[2016-12-12 08:06] VITALS: PULSE 69
[2016-12-12 11:49] VITALS: BP 134/69; TEMP 97.3; O2SAT 93
[2016-12-12] MEDS: Enoxaparin 100 mg Syringe SC SCH (14:21)
--- NOTE | 2016-12-12 14:56 | PN ---
DATE: 12/12/2016 REASON FOR CONSULTATION AND FOLLOWUP: Continue care in transitional care unit, cardiomyopathy, chronic atrial fibrillation, status post AICD, and deconditioning of the body. SUBJECTIVE: Denies any chest pain or shortness of breath. He wanted to go home. OBJECTIVE/PHYSICAL EXAMINATION: As follows: GENERAL: Not in apparent distress. VITAL SIGNS: Temperature is afebrile, heart rate of 69, and blood pressure of 134/69. HEENT: PERRLA. Extraocular muscles are intact. NECK: Supple. No carotid bruits or thyromegaly. CHEST: Clear to auscultation. HEART: S1 and S2 regular. ABDOMEN: Soft. EXTREMITIES: Clubbing and cyanosis negative. LABORATORY DATA: WBC of 6.8, hemoglobin of 11.9, hematocrit of 35.8, and platelet count of 142. Chemistry on 12/07/2016, BUN of 13 and creatinine of 0.7. Today, INR is 1.78. IMPRESSION: Atrial fibrillation, chronic; cardiomyopathy; nonischemic ejection fraction most recently on MUGA 47%; obesity; hypertension; hyperlipidemia; diabetes, and deconditioning of the body. RECOMMENDATIONS: Gave 2.5 of Coumadin, today extra 2.5, total 12.5. PT/INR to monitor. We will follow. Thank you Dr. Villagomez for providing us the opportunity in taking care of the patient, Pete Johnson. Tia Rajan MD cc: Dr. Villagomez
--- NOTE | 2016-12-12 20:23 | DS ---
SUBJECTIVE: This is a 56-year-old male who is coming in to the hospital with CHF and COPD. He was transferred to the transitional care unit for rehabilitation. He has peripheral arterial disease and had angioplasty of his leg. The patient has been subtherapeutic on his Coumadin and his INR is indicating nonadherence to his treatment regimen. He was informed about the importance of compliance and followup in the office. He had an angioplasty of the leg. He states that the pain is comfortable. He is able to ambulate. He is waiting for his INR to be therapeutic. He has no complaints of any chest pain. No shortness of breath. No headaches or dizziness. PHYSICAL EXAMINATION: VITAL SIGNS: Temperature is 98, pulse of 78, blood pressure is 111/65, respirations 18. GENERAL: The patient is lying in bed, flat, comfortable. HEENT: No oral lesion. Anicteric sclerae. Moist mucosa. NECK: No JVD, adenopathy, or thyromegaly. CARDIOVASCULAR: S1 and S2, regular. No murmurs, rubs, or gallops. LUNGS: Clear to auscultation bilaterally. No wheeze, rales, or rhonchi. ABDOMEN: Bowel sounds are positive, soft, nontender, and nondistended. EXTREMITIES: No cyanosis, clubbing, or edema. ASSESSMENT: 1. Peripheral arterial disease with angioplasty of left leg. 2. Acute chronic obstructive pulmonary disease, improved. 3. Acute congestive heart failure, secondary to systolic dysfunction, resolved. 4. Diabetes, type 2. 5. Atrial fibrillation, on Coumadin. 6. Hypertension. 7. Nonadherence/noncompliance. 8. History of left leg thrombectomy. PLAN: The patient is currently on Amaryl for his diabetes. This will be continued. He is on Ativan. He is going to be on verapamil for his atrial fibrillation. He is on Coumadin daily. The patient is on metformin for his diabetes. He is going to continue with digoxin for his atrial fibrillation. He is on Lovenox for anticoagulation while he is subtherapeutic on his INR. He is on Zestril for his hypertension. We will write his Ativan and his other medications so he can go home. Condition is stable. Activity is increase as tolerated. Follow up with Dr. Cannon and Dr. Villagomez in 1 week. Follow up with Dr. Rajan from cardiology in 2 to 3 weeks. Follow up with Dr. Godinez in 3 to 4 weeks. Axel Villagomez MD
== END 2016-12-12 13:11 | disposition home or self-care (01) | DRG 299 ==
LOC: TRCU 15:59
PROVIDERS: ADMIT Internal Medicine Nephrology; ATTEND Internal Medicine Nephrology
PROC: F07Z9ZZ Gait Training/Functional Ambulation Treatment (ICD-10-PCS; principal; 2016-11-30)
PROC: F08Z4ZZ Home Management Treatment (ICD-10-PCS; 2016-12-01)
DX: I74.3 Embolism and thrombosis of arteries of the lower extremities (principal); E11.51 Type 2 diabetes mellitus with diabetic peripheral angiopathy without gangrene; Z95.820 Peripheral vascular angioplasty status with implants and grafts; I50.23 Acute on chronic systolic (congestive) heart failure; E11.42 Type 2 diabetes mellitus with diabetic polyneuropathy; I42.8 Other cardiomyopathies; E83.42 Hypomagnesemia; J44.1 Chronic obstructive pulmonary disease with (acute) exacerbation; E11.622 Type 2 diabetes mellitus with other skin ulcer; L97.829 Non-pressure chronic ulcer of other part of left lower leg with unspecified severity; I27.2 Other secondary pulmonary hypertension; I48.2 Chronic atrial fibrillation; I11.0 Hypertensive heart disease with heart failure; I25.10 Atherosclerotic heart disease of native coronary artery without angina pectoris; I83.028 Varicose veins of left lower extremity with ulcer other part of lower leg; G47.33 Obstructive sleep apnea (adult) (pediatric); K21.9 Gastro-esophageal reflux disease without esophagitis; E78.5 Hyperlipidemia, unspecified; N28.9 Disorder of kidney and ureter, unspecified; F31.9 Bipolar disorder, unspecified; F40.240 Claustrophobia; Z79.01 Long term (current) use of anticoagulants; E66.01 Morbid (severe) obesity due to excess calories; Z68.38 Body mass index [BMI] 38.0-38.9, adult; Z98.84 Bariatric surgery status; Z86.718 Personal history of other venous thrombosis and embolism; Z91.19 Patient's noncompliance with other medical treatment and regimen; Z91.14 Patient's other noncompliance with medication regimen; Z95.810 Presence of automatic (implantable) cardiac defibrillator; Z87.891 Personal history of nicotine dependence

== ENCOUNTER 2016-12-04 14:32 | Day surgery (SDC) | payer MEDICARE ==
[2016-12-01 10:44] VITALS: BMI 38.0
[2016-12-01 10:52] VITALS: PULSE 68
[2016-12-04] MEDS ORDERED: Lidocaine 2% Inj (20ml) ONE (15:37)
[2016-12-04] MEDS ORDERED: Nitroglycerin 50mg in D5W 50 MG/250 ML BOTTLE IV ONE (15:38)
[2016-12-04] MEDS ORDERED: Iodixanol 320 MG/ML 100 ML BOTTLE IV ONE (15:38)
[2016-12-04] MEDS ORDERED: Iodixanol 320 MG/ML 200 ML BOTTLE IV ONE (15:38)
[2016-12-04] MEDS ORDERED: Midazolam 2 MG/2 ML VIAL ONE ×3 (15:38→17:21)
[2016-12-04] MEDS ORDERED: Heparin 25,000units in D5W 25,000 UNITS/250 ML BAG IV ONE (17:27)
[2016-12-04] MEDS ORDERED: Oxycodone/Acetaminophen 5/325 mg Tab PO PRN (17:43)
[2016-12-04] MEDS ORDERED: Sodium Chloride 0.45% 1,000 ML IV SCH (17:45)
[2016-12-04] MEDS ORDERED: D5W IV ONE (18:50)
[2016-12-04] MEDS ORDERED: HEPARIN IV ONE (18:50)
--- NOTE | 2016-12-04 20:20 | VASCULAR ---
PROCEDURE: 1. Abdominal aortogram and bilateral lower extremity runoff with left selective views. 2. Angiojet mechanical thrombolysis of the distal left popliteal artery and tibioperoneal trunk. 3. Angioplasty and drug-eluting stent placement in the left tibioperoneal trunk. HISTORY: Severe peripheral vascular disease. Ischemic pain left foot. Previous embolus left popliteal trifurcation. Systolic dysfunction with atrial fibrillation. Possible recurrent embolus left trifurcation PHYSICIAN(S): John Paul Cannon M.D. TECHNIQUE: The relative risks and indications of the procedure were explained to the patient and consent obtained. The patient was hydrated prior to the procedure and the appropriate labs drawn. The patient was placed supine on the arteriogram table and the right groin prepped and draped in the usual sterile fashion. Conscious sedation and monitoring were provided throughout the procedure by a nurse. Via a right common femoral artery approach, a 5 Khmer sheath was placed in the right groin. Through the sheath and over a guidewire, a 5 Khmer flush catheter was placed in the abdominal aorta at the level of the renal arteries and a PA DSA abdominal aortogram performed. The catheter was pulled down to the aortic bifurcation and bilateral oblique DSA pelvic arteriograms performed. Overlapping bilateral lower extremity DSA arteriograms were obtained from the inguinal ligaments to the ankles. A 0.035 angled Glidewire was advanced over the bifurcation and placed in the distal left SFA. A 6 Khmer 70 cm sheath was placed in the distal left SFA.. Heparin 7500 units IV and nitroglycerin in 250 mcg aliquots were given. There is an occlusion at the left trifurcation. It appears embolic. The occlusion was probed with an angled glidewire in easily passed across the tibioperoneal trunk. 0.014 support wire was placed in the left posterior tibial artery. Angiojet thrombolysis of the left tibioperoneal trunk was performed with 5 Khmer catheter. 20 milligrams tPA 500 cc normal saline was utilized. Antegrade flow was re-established with apparent dissection. 3.5 by 38 mm drug-eluting coronary stent was deployed in the left tibioperoneal trunk. A good angiographic result was obtained. The origin of the left anterior tibial artery was probed but could not be crossed with various wires. The sheath was removed hemostasis obtained. The patient tolerated the procedure well P FINDINGS: There are single renal arteries bilaterally which are widely patent and normal in appearance. The nephrograms are symmetric in appearance. The infrarenal abdominal aorta is widely patent without a radiographically significant stenosis. The aortic bifurcation is widely patent. The common and external iliac arteries are normal in appearance without a significant stenosis. The internal iliac arteries are patent bilaterally. Right lower extremity: The right common femoral artery is patent. The right profunda femoral artery is patent. The right superficial femoral artery is patent and continuous without a radiographically significant stenosis. The right popliteal artery is patent. There appears to be 2 vessel runoff on the right via the anterior tibial and peroneal arteries. The right posterior tibial artery appears occluded Left lower extremity: Left common femoral artery is patent. The left profunda femoral artery is patent. The left superficial femoral artery is patent and continuous without a radiographically significant stenosis. There is an occlusion of the terminal left popliteal artery and trifurcation. Defects are seen consistent with thrombus. Could represent a recurrent left popliteal embolus. Antegrade flow was re-established across the left tibioperoneal trunk. There is brisk flow in the left posterior tibial artery and delayed filling of the left peroneal artery. There is a 4 cm occlusion of the proximal left anterior tibial artery which could not be recannulized. IMPRESSION: 1.Left trifurcation thrombosis. This could represent an embolus. 2. Successful recanalization of the left trifurcation as described above. 3. The patient should remain therapeutically anticoagulated.
[2016-12-04 22:18] VITALS: RESP 20
[2016-12-05 01:22] VITALS: BP 121/70; PULSE 81; TEMP 98.8; O2SAT 96
== END 2016-12-05 02:00 ==
LOC: SDSVAS 14:32 → 2RSO 19:15 → SDSVAS 12-05 02:00
PROVIDERS: ATTEND Radiology Vascular & Interventional Radiology
DX: I74.3 Embolism and thrombosis of arteries of the lower extremities (principal); I73.9 Peripheral vascular disease, unspecified; Z86.718 Personal history of other venous thrombosis and embolism; I48.91 Unspecified atrial fibrillation
CPT/HCPCS: 36415; 37186; 37230; 75625; 75716; 85730; 99152; 99153; C1725 ×2; C1757; C1760 ×2; C1769 ×5; C1874; C1887; C1892; C1894; J0690; J1644 ×3; J2250; J2405; J2997; J3010; J7030

== ENCOUNTER 2017-01-02 15:40 | Inpatient (IN) | payer MEDICARE, OTHER ==
[2017-01-02 15:45] VITALS: BMI 40.4
[2017-01-02] MEDS ORDERED: Albuterol-Ipratrop 3 mg / 0.5 (3 ml) UD IH STA (15:47)
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
--- NOTE | 2017-01-02 16:25 | RAD ---
HISTORY: sob COMPARISON: 11/26/2016 FINDINGS: LUNGS: No active pulmonary disease. PLEURA: No significant pleural effusion identified, no pneumothorax apparent. CARDIOVASCULAR: Mild cardiomegaly. AICD. No congestive change. OSSEOUS STRUCTURES: No significant abnormalities. VISUALIZED UPPER ABDOMEN: Normal. OTHER FINDINGS: None. IMPRESSION: No active disease.
[2017-01-02 16:40] LABS: ALB/GLOB RATIO 1.6 (1.1-1.8); ALKALINE PHOSPHATASE 66 U/L (38-126); ALT/SGPT 35 U/L (7-56); AST/SGOT 26 U/L (17-59); BILIRUBIN,TOTAL 0.7 mg/dL (0.2-1.3); BLOOD UREA NITROGEN 17 mg/dL (7-21); CALCIUM 8.7 mg/dL (8.4-10.5); CARBON DIOXIDE 31 mmol/L (21-33); CHLORIDE 98 mmol/L (98-107); GFR AFRICAN-AMERICAN > 60; GLUCOSE,RANDOM 167 mg/dL (70-110); POTASSIUM 3.9 mmol/L (3.6-5.0); SODIUM 138 mmol/L (132-148); TOTAL PROTEIN 6.2 g/dL (5.8-8.3)
[2017-01-02 16:49] LABS: BASO # 0.05 K/mm3 (0.0-2.0); BASO % 0.5 % (0.0-3.0); EOS # 0.2 (0.0-0.7); EOS % 1.7 % (1.5-5.0); GRAN # 7.09 (1.4-6.5); GRAN % 74.7 % (50.0-68.0); LYMPH # 1.7 (1.2-3.4); LYMPH % 17.8 % (22.0-35.0); MEAN CELL VOLUME 86.8 fl (80.0-105.0); MEAN CORPUSCULAR HGB CONC 33.4 g/dl (31.0-37.0); MEAN PLATELET VOLUME 10.2 fl (7.0-11.0); MONO # 0.5 (0.1-0.6); MONO % 5.3 % (1.0-6.0); RED CELL DISTRIBUTION WIDTH 15.7 % (11.5-14.5); WHITE BLOOD COUNT 9.5 10^3/ul (4.5-11.0)
[2017-01-02 16:52] LABS: TROPONIN I 0.05 ng/mL
[2017-01-02 17:06] LABS: PARTIAL THROMBOPLASTIN TIME 37.1 Seconds (23.7-30.8)
[2017-01-02 17:26] LABS: INR 3.89 (0.93-1.08)
--- NOTE | 2017-01-02 22:02 | CARD ---
APPROVED REPORT EKG Measurement Heart [id number] <Conclusion> Atria sensed, Biventricular paced rhythm Abnormal ECG
[2017-01-02] MEDS: Insulin Reg-MEDIUM-Coverage SC SCH (22:38)
[2017-01-03] MEDS: Insulin Reg-MEDIUM-Coverage SC SCH ×2 (08:37→12:18)
[2017-01-03 09:27] LABS: MAGNESIUM 1.5 mg/dL (1.7-2.2)
[2017-01-03 09:28] LABS: INR 2.85 (0.93-1.08)
[2017-01-03 09:38] LABS: TROPONIN I 0.04 ng/mL
[2017-01-03] MEDS: Oxycodone/Acetaminophen 5/325 mg Tab PO PRN (09:42)
--- NOTE | 2017-01-03 12:14 | CP.PCM.HP ---
<Martine Ignacio - Last Filed: 01/03/17 13:23> History of Present Illness - History of Present Illness History of Present Illness: PGY-2 H&P for Dr[address] Villagomez 56 yo male with PMH for COPD, DMII, CAD with stents, a. fib on coumadin, HTN, h.o left leg thrombectomy, defib presented with mild nonproductive cough congestion and shortness of breath started 2 days ago. Patient reports some chest tightness associated with SOB. He states that it not associated with activity. Patient state that he took his regular home meds. He reports cough with yellow sputum. Patient was recently in the hospital for similar episode about 1 month. He also reports a painful ulcer on right lower leg. He states that the ulcer had been there for few month. He denies fever, trauma, n/v abd pain. PMH: COPD, DMII, CAD, PAD a. fib on coumadin, HTN, h.o left leg thrombectomy, defib PSH: gastric bypass, social hx: former smoker quit 23 yo, former cacaine use quit 23 yo, former ETOH quit 23 yo allergy: quetiapine, wild berries home meds: trazodone, warfarin, verapamil, dulera, lopressor, metformin, lisinopril, ativan, levemir, glimepiride, lasix, digoxin, lipitor, duoneb, albuterol Present on Admission - Present on Admission Any Indicators Present on Admission: No Review of Systems - Constitutional Constitutional: Headache. absent: Fatigue, Fever, Lethargy, Weakness - EENT Eyes: absent: Change in Vision Nose/Mouth/Throat: absent: Nasal Congestion, Nasal Discharge, Sore Throat - Cardiovascular Cardiovascular: Chest Pain, Dyspnea, Leg Edema. absent: Palpitations - Respiratory Respiratory: Cough, Dyspnea. absent: Hemoptysis - Gastrointestinal Gastrointestinal: absent: Abdominal Pain, Change in Stool Character, Constipation, Diarrhea, Nausea, Vomiting - Genitourinary Genitourinary: absent: Change in Urinary Stream, Difficulty Urinating, Dysuria, Hematuria - Musculoskeletal Musculoskeletal: absent: Arthralgias, Muscle Weakness, Myalgias, Numbness, Tingling - Integumentary Integumentary: Skin Ulcer, Swelling. absent: Pruritus, Rash - Neurological Neurological: absent: Dizziness, Numbness, Headaches, Syncope, Weakness - Hematologic/Lymphatic Hematologic: absent: Easy Bleeding, Easy Bruising Past Patient History - Infectious Disease Hx of Infectious Diseases: None - Tetanus Immunizations Tetanus Immunization: Unknown - Past Medical History & Family History Past Medical History?: Yes - Past Social History Smoking Status: Former Smoker - CARDIAC Hx Cardia Arrhythmia: Yes (afib) Hx Congestive Heart Failure: Yes Hx Hypercholesterolemia: Yes Hx Pacemaker: (defibrilator) Hx Peripheral Vascular Disease: Yes - PULMONARY Hx Bronchitis: Yes Hx Chronic Obstructive Pulmonary Disease (COPD): Yes Hx Emphysema: Yes Hx Pneumonia: Yes Hx Sleep Apnea: Yes - NEUROLOGICAL Hx Paralysis: No - HEENT Hx HEENT Problems: Yes (eyeglasses) - RENAL Hx Chronic Kidney Disease: No - ENDOCRINE/METABOLIC Hx Endocrine Disorders: Yes Hx Diabetes Mellitus Type 2: Yes - HEMATOLOGICAL/ONCOLOGICAL Hx Blood Transfusions: No - INTEGUMENTARY Hx Dermatological Problems: Yes - MUSCULOSKELETAL/RHEUMATOLOGICAL Hx Falls: No - GASTROINTESTINAL Hx Gastroesophageal Reflux: Yes - GENITOURINARY/GYNECOLOGICAL Hx Reproductive Disorders: No - PSYCHIATRIC Hx Anxiety: Yes Hx Bipolar Disorder: Yes Hx Depression: Yes - SURGICAL HISTORY Hx Coronary Stent: Yes Hx Gastric Bypass Surgery: Yes - ANESTHESIA Hx Anesthesia Reactions: No Hx Malignant Hyperthermia: No Meds Allergies/Adverse Reactions: Allergies Allergy/AdvReac Type Severity Reaction Status Date / Time quetiapine fumarate AdvReac ANAPHYLAXIS Verified 12/05/16 08:32 [From Seroquel] wild berries Allergy Intermediate RASH Uncoded 12/05/16 08:32 Physical Exam - Constitutional Appears: Well, No Acute Distress - Head Exam Head Exam: ATRAUMATIC, NORMAL INSPECTION, NORMOCEPHALIC - Eye Exam Eye Exam: EOMI, Normal appearance - ENT Exam ENT Exam: Mucous Membranes Moist - Respiratory Exam Respiratory Exam: Rhonchi (mild, diffuse), NORMAL BREATHING PATTERN. absent: Decreased Breath Sounds, Rales, Wheezes, Respiratory Distress - Cardiovascular Exam Cardiovascular Exam: REGULAR RHYTHM. absent: Tachycardia, Diastolic murmur, Systolic Murmur - GI/Abdominal Exam GI & Abdominal Exam: Normal Bowel Sounds, Soft. absent: Diminished Bowel Sounds , Distended, Firm, Guarding, Tenderness - Extremities Exam Extremities exam: Positive for: tenderness (near ulcer). Negative for: pedal edema - Neurological Exam Neurological exam: Alert, Oriented x3 - Skin Skin Exam: Dry, Normal Color, Warm Additional comments: ulcer located on lateral aspect on left lower leg. Results - Vital Signs Recent Vital Signs: Last Vital Signs Temp 97 F L 01/03/17 06:00 Pulse 70 01/03/17 09:43 Resp 18 01/03/17 06:00 BP 108/59 L 01/03/17 09:43 Pulse Ox 96 01/03/17 06:00 - Labs Result Diagrams: 01/02/17 16:20 01/02/17 16:20 Labs: Laboratory Results - last 24 hr 01/02/17 01/03/17 01/03/17 21:31 07:44 09:00 PT INR POC Glucose (mg/dL) 359 H 296 H Magnesium 1.5 L Troponin I 0.04 Triglycerides 101 Cholesterol 201 H LDL Cholesterol Direct 162 H HDL Cholesterol 31 01/03/17 01/03/17 09:00 11:26 PT 30.8 H* INR 2.85 H POC Glucose (mg/dL) 319 H Magnesium Troponin I Triglycerides Cholesterol LDL Cholesterol Direct HDL Cholesterol Assessment & Plan - Assessment and Plan (Free Text) Assessment: 56 yo male with PMH for COPD, DMII, CAD with stents, a. fib on coumadin, HTN, h.o left leg thrombectomy, defib presented with mild nonproductive cough, shortness of breath and chest pain with left leg ulcer. Plan: 1. Chest pain - all previous records reviewed - las reviewed, elevated trops - EKG in ED showed paced rhythm with rate of 72 - Echo on 10/04/16 showed EF of 33%, mild mitral regurgitation, and tricuspid regurgitation, dilated IVC, pacemaker lead in right ventricle - cont asa, lipitor, digoxin, lasix, lopressor, verapamil - cardiology consulted 2. SOB - most likely 2/2 copd exacerbation vs chf exacerbation - patient received solu- medrol 125gm and lasix in ED - cont solu-medrol 40 mg daily - cont lasix po bid - Bipap at night - cxr showed no active disease - pulm and cardiology consulted 3. left leg ulcer - pt has h/o of PAD - consulted IR 4. a. fib - INR supra therapeutic, warfarin held - rate controlled - will repeat INR 5. HTN - controlled - cont home meds 6. DMII - elevated, probably 2/2 to steroids - cont home glimepiride - ISS - fingerstick ACHS <HernandoAxel herrera S - Last Filed: 01/03/17 22:31> Results - Vital Signs Recent Vital Signs: Last Vital Signs Temp 97.1 F L 01/03/17 18:00 Pulse 70 01/03/17 19:22 Resp 19 01/03/17 18:00 BP 112/70 01/03/17 18:00 Pulse Ox 100 01/03/17 09:00 - Labs Result Diagrams: 01/02/17 16:20 01/02/17 16:20 Labs: Laboratory Results - last 24 hr 01/03/17 01/03/17 01/03/17 07:44 09:00 09:00 PT INR POC Glucose (mg/dL) 296 H Hemoglobin A1c Magnesium 1.5 L Troponin I 0.04 C-React Prot High Sens 8.18 H Triglycerides 101 Cholesterol 201 H LDL Cholesterol Direct 162 H HDL Cholesterol 31 TSH 3rd Generation 0.96 01/03/17 01/03/17 01/03/17 09:00 09:00 11:26 PT 30.8 H* INR 2.85 H POC Glucose (mg/dL) 319 H Hemoglobin A1c 8.1 H Magnesium Troponin I C-React Prot High Sens Triglycerides Cholesterol LDL Cholesterol Direct HDL Cholesterol TSH 3rd Generation 01/03/17 01/03/17 16:01 21:35 PT INR POC Glucose (mg/dL) 275 H 383 H Hemoglobin A1c Magnesium Troponin I C-React Prot High Sens Triglycerides Cholesterol LDL Cholesterol Direct HDL Cholesterol TSH 3rd Generation Assessment & Plan - Assessment and Plan (Free Text) Plan: Pt seen and examined. Agree with above note of resident. Meds and labs reviewed. Lehr Cutter notes reviewed. Pt on Steroids for COPD. Will get Vascular evaluation of L leg. Continue with Steroids. Spoke to Dr Rajan.
[2017-01-03] MEDS: MethylPREDNISolone 40 mg Vial IVP SCH (12:24)
[2017-01-03 12:36] LABS: THYROID STIMULATING HORMONE 0.96 mIU/mL (0.46-4.68)
[2017-01-03] MEDS: Digoxin 125 mcg (0.125 mg) Tab PO SCH (13:19)
[2017-01-03 13:25] VITALS: PULSE 70
[2017-01-03] MEDS ORDERED: Magnesium Sulfate 2 GM in Sodium Chloride 0.9% 100 ML IVPB ONE (14:16)
[2017-01-03] MEDS: Insulin Detemir 100 units/ml Vial (Levemir) SC SCH (17:20)
[2017-01-03] MEDS: Insulin Reg-HIGH-Coverage SC SCH ×2 (17:20→21:46)
[2017-01-03] MEDS: Levalbuterol 0.63 MG/3 ML Inhal Soln UD IH SCH (19:21)
--- NOTE | 2017-01-04 01:33 | CON ---
LOCATION: The patient is in room 276, bed #1. REASON FOR CONSULTATION: Followup with cardiomyopathy, status post AICD insertion, chronic atrial fibrillation, noncompliant, the patient admitted with cough, shortness of breath. Sometime with cough he gets chest pain. HISTORY OF PRESENT ILLNESS: The patient is a 56-year-old morbidly obese who was a very noncompliant patient, with past medical history of significant for COPD, atrial fibrillation, status post radiofrequency ablation, status post AICD insertion, cardiomyopathy, history of DVT right femoral vein, history of acute limb ischemia on the left, history of thrombectomy, was admitted with cough and shortness of breath. Sometime with cough, he gets chest pain. Denies palpitations. The patient also complains of pain on the left lower leg, at the site of small ulcer area, which he says he has since last few months. PAST MEDICAL HISTORY: Significant for DVT right femoral vein, history of atrial fibrillation, chronic status post radiofrequency ablation, diabetes, nonischemic cardiomyopathy, status post cardiac catheterization twice, which showed nonobstructive coronary artery disease, COPD, hypertension, hyperlipidemia, left lower leg acute ischemia, acute thrombus removal with thrombectomy, peripheral neuropathy. PAST SURGICAL HISTORY: Positive for gastric bypass, history of thrombectomy, AICD placement, catheterization twice as mentioned above. PAST CARDIAC WORKUP: The patient recently had a MUGA scan, which showed LV ejection fraction of 43%, normal RV in comparison to 2000 last study, there is slightly improvement of LV function. The patient had cardiac catheterization 2 to 3 times in the past at least 2 at [facility] on 11/05/2014, last one which showed normal coronary, ejection fraction 50%, EDP was in the range of 30. Medical treatment was recommended. The patient recently had radiofrequency ablation at [facility], status post AICD placement, history of failed CORA, cardioversion, nonobstructive coronary artery disease. Last echo done at [facility] was 08/15/2016, that showed left ventricle with mildly dilated normal LV function, severely impaired right ventricle, moderately dilated RV systolic function, severely reversed from the RV, contractility also decreased. His LV ejection fraction 24%. Prior to that on 08/09/2016, the patient had echo which showed normal size LVH with ejection fraction of 45%, global hypokinesis noted, trace to mild mitral regurgitation, trace to mild tricuspid regurgitation. RV systolic pressure was 70, this was on 06/10/2015. REVIEW OF SYSTEMS: All the systems reviewed positive mentioned in the history, others are negative. HOME MEDICATIONS: The patient is very noncompliant. The patient is supposed to be on trazodone, verapamil, lisinopril, Lasix, digoxin and Coumadin. ALLERGIES: THE PATIENT SAYS HE IS ALLERGIC TO WILD [place]CC[place]. PHYSICAL EXAMINATION VITAL SIGNS: Blood pressure is 100/57, respirations 19, pulse 75, and temperature 97.5. HEENT: Head is normocephalic. Eyes: Pupils are normal. Conjunctivae normal Nose and throat normal. NECK: JVP low. Carotids equal. THORAX: AP diameter normal. LUNGS: No significant rales. CARDIOVASCULAR: S1 and S2. ABDOMEN: Protuberant. No organomegaly. EXTREMITIES: No clubbing. No cyanosis. Slight redness in the left lower leg is noted. Small ulcers noted on the left leg. Slight edema on the lower legs are noted. LABORATORY DATA: WBC 9.5, hemoglobin 12.7, hematocrit 38.0, and platelets 167. Sodium 138, potassium 3.9, BUN 13, creatinine 0.9, random sugar 167, AST and ALT normal. Troponin x2 negative. BNP 1630. Chest x-ray, cardiomegaly. EKG, pacemaker rhythm. DIAGNOSES: Cough and shortness of breath, respiratory tract infection, exacerbation of chronic obstructive pulmonary disease, decompensated congestive heart failure, history of chronic left ventricular systolic dysfunction, [id number] systolic dysfunction, morbid obesity, diabetes, hyperlipidemia, chronic atrial fibrillation, status post failed transesophageal echocardiography, cardioversion, status post radiofrequency ablation, status post automatic implantable cardioverter-defibrillator insertion, back in atrial fibrillation, noncompliant with medication, hypertension. PLAN: The patient has no evidence of any acute myocardial infarction. The patient is on DuoNeb hand nebulizer therapy, glimepiride 4 mg p.o. daily, verapamil 80 mg t.i.d., trazodone 150 mg at bedtime, insulin as ordered, digoxin 0.125 daily, furosemide 40 mg p.o. b.i.d., Lipitor 40 mg daily, metoprolol 50 b.i.d., Solu-Medrol 40 mg IV daily. Today, prothrombin time is 30.8 and INR 2.85. Yesterday on admission INR was 3.89, which was elevated. We will restart warfarin 5 mg daily and we will check PT/INR in the morning. We will follow with you. Tia Cabello MD
--- NOTE | 2017-01-04 02:45 | CON ---
DATE: 01/03/2017 REFERRING PHYSICIAN: Axel Villagomez MD REASON FOR CONSULT: Chronic obstructive lung disease, obstructive sleep apnea syndrome, history of AFib requiring ablation therapy, has an AICD. HISTORY OF PRESENT ILLNESS: This is a 56-year-old gentleman, well known to me from previous admission, known compliance with the followup at least in my office, known to have a severe cardiomyopathy, paroxysmal atrial fibrillation, history of ablation therapy status post AICD placement, diabetes, hypertension, history of recurrent thromboembolic disease requiring thrombectomy in the past, obesity, also known sleep apnea, but noncompliant with CPAP and BiPAP, comes in with shortness of breath, leg swelling, old healing ulcer, has tenderness. No hemoptysis, no hematemesis, no hematuria. PAST MEDICAL HISTORY: Chronic obstructive lung disease, cardiomyopathy, decreased LV function, AFib status post ablation therapy, has AICD, diabetes, coronary artery disease, atrial fibrillation, history of thromboembolic disease. ALLERGIES: QUETIAPINE AND BERRIES. SOCIAL HISTORY: Recently stopped smoking, has a former history of cocaine use. 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 FAMILY HISTORY: No significant cardiopulmonary disease reported. MEDICATION AT PRESENT: The patient is on Amaryl on 4 mg daily, Ativan 1 mg twice a day p.r.n., Calan 80 mg three times a day, Coumadin 5 mg today will be given, trazodone 150 mg at bedtime, Ecotrin 81 mg daily, insulin coverage, Digoxin 0.125 mg daily, Lasix 40 mg twice a day, Levemir 30 units subcu twice a day, Lipitor 40 mg daily, metoprolol tartrate 50 mg twice a day, magnesium sulfate 2 g IV will be given, Percocet 5/325 one time q.4 hour p.r.n., Solo-Medrol 40 mg IV daily is being given. REVIEW OF SYSTEMS: No headache, no rhinitis. Has some cough, shortness. No chest pain, no nausea, no vomiting or diarrhea. Does have a leg swelling, old healing ulcer. He is tender. Neurologically, awake and alert. Follows simple commands. LABORATORY DATA: Shows hemoglobin 12.7, hematocrit 38.0, WBC 9.5, platelet is 167. Last INR was 3.89, this morning is 2.85. Sodium 138, potassium 3.9, chloride 98, bicarbonate 31, BUN 17, creatinine 0.9, glucose is 167, calcium is 8.7, AST 26, ALT 35, alkaline phosphate is 66. Troponin is 0.04, proBNP 1630. Cholesterol is 201, TSH 0.96. Chest x-ray done in the ER yesterday shows no active pulmonary disease, has cardiomegaly, AICD. IMPRESSION AND PLAN: Cardiomyopathy, history of atrial fibrillation, history of ablation therapy, automatic implantable cardioverter-defibrillator, congestive heart failure, chronic obstructive lung disease, obstructive sleep apnea syndrome, diabetes, hypertension, peripheral vascular disease, history of thromboembolic disease, nonhealing leg ulcer. He will continue diuretics, continue anticoagulation, p.r.n. inhaled bronchodilator. The patient is very sensitive beta-agonists, gets tachycardia and AFib, will only use p.r.n. basis. The patient will be seeing Interventional Radiology, Dr. John Paul Cannon for left leg persistent tenderness, doing the CAT scan?. Thank you and we will follow with you. Tia Godinez MD
[2017-01-04 07:04] LABS: INR 2.91 (0.93-1.08)
[2017-01-04] MEDS: Insulin Reg-HIGH-Coverage SC SCH ×4 (07:58→22:04)
[2017-01-04] MEDS: Levalbuterol 0.63 MG/3 ML Inhal Soln UD IH SCH ×3 (08:03→19:53)
[2017-01-04] MEDS: MethylPREDNISolone 40 mg Vial IVP SCH (09:46)
[2017-01-04] MEDS: Insulin Detemir 100 units/ml Vial (Levemir) SC SCH ×2 (09:50→17:07)
[2017-01-04] MEDS: Oxycodone/Acetaminophen 5/325 mg Tab PO PRN ×2 (10:21→22:04)
--- NOTE | 2017-01-04 11:43 | CP.PCM.CON ---
History of Present Illness - History of Present Illness History of Present Illness: Surgery Consult for Dr. Wick HPI: 56M with PMH of COPD, insulin dependent DM II, CHF, A Fib, HTN, peripheral arterial disease presents with left lateral leg ulcerated lesion. Patient says he hit his leg on his bed 6 months ago and wound has been present ever since. He describes pain as burning and radiates throughout his entire left lower extremity. Walking makes pain worse and resting relieves pain. Pain is also relieved by percocet. Patient denies pain at night. Patient say he was here a month ago for wound care and had left leg thrombectomy with stent placement but he says it has not gotten better since then. Past Medical History: COPD, T2DM, CHF, afib, PAD Past Surgical History: left leg thrombectomy and stent placement (12/03) Social: former cocaine and ETOH user (quit 25 years ago), smoked 1-2 PPD on and off since 6 yo Allergies: quetiapine, fumarate Review of Systems - Constitutional Constitutional: absent: As Per HPI, Anorexia, Chills, Daytime Sleepiness, Excessive Sweating, Fatigue, Fever, Frequent Falls, Headache, Increased Appetite , Lethargy, Malaise, Night Sweats, Snoring, Sleep Apnea, Weight Gain, Weight Loss, Weakness, Other - Cardiovascular Cardiovascular: Claudication, Irregular Heart Rhythm, Leg Edema - Respiratory Respiratory: Cough, Wheezing, Chest Congestion - Gastrointestinal Gastrointestinal: Constipation. absent: Abdominal Pain, Diarrhea, Nausea, Vomiting - Integumentary Integumentary: Erythema, Non-Healing Lesions, Skin Ulcer (left lateral 2cm rounded) Past Patient History - Infectious Disease Hx of Infectious Diseases: None - Tetanus Immunizations Tetanus Immunization: Unknown - Past Medical History & Family History Past Medical History?: Yes - Past Social History Smoking Status: Former Smoker - CARDIAC Hx Cardia Arrhythmia: Yes (afib) Hx Congestive Heart Failure: Yes Hx Hypercholesterolemia: Yes Hx Pacemaker: (defibrilator) Hx Peripheral Vascular Disease: Yes - PULMONARY Hx Bronchitis: Yes Hx Chronic Obstructive Pulmonary Disease (COPD): Yes Hx Emphysema: Yes Hx Pneumonia: Yes Hx Sleep Apnea: Yes - NEUROLOGICAL Hx Paralysis: No - HEENT Hx HEENT Problems: Yes (eyeglasses) - RENAL Hx Chronic Kidney Disease: No - ENDOCRINE/METABOLIC Hx Endocrine Disorders: Yes Hx Diabetes Mellitus Type 2: Yes - HEMATOLOGICAL/ONCOLOGICAL Hx Blood Transfusions: No - INTEGUMENTARY Hx Dermatological Problems: Yes - MUSCULOSKELETAL/RHEUMATOLOGICAL Hx Falls: No - GASTROINTESTINAL Hx Gastroesophageal Reflux: Yes - GENITOURINARY/GYNECOLOGICAL Hx Reproductive Disorders: No - PSYCHIATRIC Hx Anxiety: Yes Hx Bipolar Disorder: Yes Hx Depression: Yes - SURGICAL HISTORY Hx Coronary Stent: Yes Hx Gastric Bypass Surgery: Yes - ANESTHESIA Hx Anesthesia Reactions: No Hx Malignant Hyperthermia: No Meds Allergies/Adverse Reactions: Allergies Allergy/AdvReac Type Severity Reaction Status Date / Time quetiapine fumarate AdvReac ANAPHYLAXIS Verified 12/05/16 08:32 [From Seroquel] wild berries Allergy Intermediate RASH Uncoded 12/05/16 08:32 - Medications Medications: Current Medications Aspirin (Ecotrin) 81 mg PO DAILY [facility] Last Admin: 01/04/17 09:42 Dose: 81 mg Atorvastatin Calcium (Lipitor) 40 mg PO DIN [facility] Last Admin: 01/03/17 17:21 Dose: 40 mg Digoxin (Lanoxin) 0.125 mg PO 1400 [facility] Last Admin: 01/03/17 13:19 Dose: 0.125 mg Furosemide (Lasix) 40 mg PO BID [facility] Last Admin: 01/04/17 09:45 Dose: 40 mg Glimepiride (Amaryl) 4 mg PO 0800 [facility] Last Admin: 01/04/17 07:58 Dose: 4 mg Insulin Detemir (Levemir) 30 unit SC BID [facility] Last Admin: 01/04/17 09:50 Dose: 30 unit Insulin Human Regular (Humulin R High) 0 units SC ACHS [facility] PRN Reason: Protocol Last Admin: 01/04/17 07:58 Dose: 4 units Levalbuterol HCl (Xopenex) 0.63 mg IH TIDRESP [facility] Last Admin: 01/04/17 08:03 Dose: 0.63 mg Lorazepam (Ativan) 1 mg PO BID PRN; Protocol PRN Reason: Anxiety Last Admin: 01/03/17 21:45 Dose: 1 mg Methylprednisolone (Solu-Medrol) 40 mg IVP DAILY [facility] Last Admin: 01/04/17 09:46 Dose: 40 mg Metoprolol Tartrate (Lopressor) 50 mg PO BID [facility] Last Admin: 01/04/17 09:45 Dose: 50 mg Oxycodone/Acetaminophen (Percocet 5/325 Mg Tab) 1 tab PO Q4H PRN PRN Reason: Pain, moderate (4-7) Stop: 01/06/17 09:26 Last Admin: 01/04/17 10:21 Dose: 1 tab Trazodone HCl (Desyrel) 150 mg PO HS [facility] Last Admin: 01/03/17 21:45 Dose: 150 mg Verapamil HCl (Calan Tab) 80 mg PO TID [facility] Last Admin: 01/04/17 09:43 Dose: 80 mg Warfarin Sodium (Coumadin) 7.5 mg PO 1800 [facility] PRN Reason: Protocol Physical Exam - Constitutional Appears: Non-toxic, No Acute Distress - Head Exam Head Exam: ATRAUMATIC, NORMAL INSPECTION, NORMOCEPHALIC - Eye Exam Eye Exam: EOMI, Normal appearance - ENT Exam ENT Exam: Mucous Membranes Moist - Respiratory Exam Respiratory Exam: NORMAL BREATHING PATTERN. absent: Accessory Muscle Use, Wheezes, Respiratory Distress - Cardiovascular Exam Cardiovascular Exam: REGULAR RHYTHM. absent: Bradycardia, Tachycardia - GI/Abdominal Exam GI & Abdominal Exam: Normal Bowel Sounds, Soft. absent: Tenderness - Extremities Exam Extremities exam: Positive for: calf tenderness, pedal edema, tenderness Additional comments: 1 cm x 1 cm ulcer covered by eschar on left LE on the medial aspect with surrounding erythema approximately 1/2 cm around the ulcer Pain with palpation of the foot and surrounding the ulcer - Neurological Exam Neurological exam: Alert - Psychiatric Exam Psychiatric exam: Normal Affect, Normal Mood - Skin Skin Exam: Dry, Intact, Normal Color, Warm Additional comments: except for described above Results - Vital Signs Recent Vital Signs: Last Vital Signs Temp 97.5 F L 01/04/17 06:00 Pulse 70 01/04/17 09:45 Resp 20 01/04/17 06:00 BP 114/66 01/04/17 09:45 Pulse Ox 91 L 01/04/17 06:00 - Labs Result Diagrams: 01/02/17 16:20 01/02/17 16:20 Labs: Laboratory Results - last 24 hr 01/03/17 01/03/17 01/03/17 07:44 09:00 09:00 PT INR POC Glucose (mg/dL) 296 H Hemoglobin A1c 8.1 H Magnesium C-React Prot High Sens 8.18 H TSH 3rd Generation 0.96 01/03/17 01/03/17 01/03/17 11:26 16:01 21:35 PT INR POC Glucose (mg/dL) 319 H 275 H 383 H Hemoglobin A1c Magnesium C-React Prot High Sens TSH 3rd Generation 01/04/17 01/04/17 01/04/17 04:35 06:30 06:30 PT 32.7 H* INR 2.91 H POC Glucose (mg/dL) 236 H Hemoglobin A1c Magnesium 2.1 C-React Prot High Sens TSH 3rd Generation 01/04/17 07:19 PT INR POC Glucose (mg/dL) 240 H Hemoglobin A1c Magnesium C-React Prot High Sens TSH 3rd Generation Assessment & Plan - Assessment and Plan (Free Text) Assessment: 56M with history of peripheral arterial disease presenting with non-healing ulcerated left leg lesion TREVON exam showing normals ABIs at rest and b/l symmetric trifurcation and/or tibial disease Plan: - No surgical intervention indicated at this time - Consider neurontin - Reconsult as needed - Discussed with Delano Falk, PGY1
--- NOTE | 2017-01-04 13:37 | US ---
PROCEDURE: Lower extremity TREVON exam HISTORY: Peripheral vascular disease with ischemic pain. Previous left popliteal bolus. PHYSICIAN(S): John Paul Cannon MD. FINDINGS: The resting TREVON's are normal: right, 1.10and left, 1.15. Comparing with the distal waveforms, the resting ABIs may be inaccurate due to calcified vessels. The brachial systolic pressures are symmetric. The low thigh pressures and waveforms are relatively normal. The calf PVR waveforms are normal and symmetric and augment normally The ankle and metatarsal waveforms are mildly to moderately blunted but pulsatile and symmetric. This could represent bilateral trifurcation and/ or tibial disease IMPRESSION: 1. Normal ABIs at rest. 2. Bilateral symmetric trifurcation and/ or tibial disease.
[2017-01-04] MEDS: Digoxin 125 mcg (0.125 mg) Tab PO SCH (14:09)
--- NOTE | 2017-01-04 14:43 | CP.PCM.PN ---
<Martine Ignacio - Last Filed: 01/04/17 14:40> Subjective - Date & Time of Evaluation Date of Evaluation: 01/04/17 Time of Evaluation: 08:00 - Subjective Subjective: PGY-[address] Villagomez Patient seen and examined at bedside. No acute distress. Patient states that his chest pain and Sob have improved. He continues to report tenderness around ulcer on left LE. He denies fever, chill, nausea, vomiting, diarrhea, constipation, Objective - Vital Signs/Intake and Output Vital Signs (last 24 hours): Temp Pulse Resp BP Pulse Ox 97.8 F 94 H 18 104/67 69 L 01/04/17 13:50 01/04/17 13:50 01/04/17 13:50 01/04/17 13:50 01/04/17 13:50 Intake and Output: 01/04/17 01/04/17 06:59 18:59 Intake Total 280 275 Output Total 0 140 Balance 280 135 - Medications Medications: Current Medications Aspirin (Ecotrin) 81 mg PO DAILY [facility] Last Admin: 01/04/17 09:42 Dose: 81 mg Atorvastatin Calcium (Lipitor) 40 mg PO DIN [facility] Last Admin: 01/03/17 17:21 Dose: 40 mg Digoxin (Lanoxin) 0.125 mg PO 1400 [facility] Last Admin: 01/04/17 14:09 Dose: 0.125 mg Furosemide (Lasix) 40 mg PO BID [facility] Last Admin: 01/04/17 09:45 Dose: 40 mg Glimepiride (Amaryl) 4 mg PO 0800 [facility] Last Admin: 01/04/17 07:58 Dose: 4 mg Insulin Detemir (Levemir) 30 unit SC BID [facility] Last Admin: 01/04/17 09:50 Dose: 30 unit Insulin Human Regular (Humulin R High) 0 units SC ACHS [facility] PRN Reason: Protocol Last Admin: 01/04/17 12:37 Dose: 4 units Levalbuterol HCl (Xopenex) 0.63 mg IH TIDRESP [facility] Last Admin: 01/04/17 13:49 Dose: 0.63 mg Lorazepam (Ativan) 1 mg PO BID PRN; Protocol PRN Reason: Anxiety Last Admin: 01/03/17 21:45 Dose: 1 mg Methylprednisolone (Solu-Medrol) 40 mg IVP DAILY [facility] Last Admin: 01/04/17 09:46 Dose: 40 mg Metoprolol Tartrate (Lopressor) 50 mg PO BID [facility] Last Admin: 01/04/17 09:45 Dose: 50 mg Oxycodone/Acetaminophen (Percocet 5/325 Mg Tab) 1 tab PO Q4H PRN PRN Reason: Pain, moderate (4-7) Stop: 01/06/17 09:26 Last Admin: 01/04/17 10:21 Dose: 1 tab Trazodone HCl (Desyrel) 150 mg PO HS [facility] Last Admin: 01/03/17 21:45 Dose: 150 mg Verapamil HCl (Calan Tab) 80 mg PO TID [facility] Last Admin: 01/04/17 13:20 Dose: 80 mg Warfarin Sodium (Coumadin) 5 mg PO 1800 [facility] PRN Reason: Protocol - Labs Labs: PT 32.7 SECONDS (9.4-12.5) H* 01/04/17 06:30 INR 2.91 (0.93-1.08) H 01/04/17 06:30 APTT 37.1 Seconds (23.7-30.8) H 01/02/17 16:20 - Constitutional Appears: Well, No Acute Distress - Head Exam Head Exam: ATRAUMATIC, NORMAL INSPECTION, NORMOCEPHALIC - Eye Exam Eye Exam: EOMI, Normal appearance - ENT Exam ENT Exam: Mucous Membranes Moist - Respiratory Exam Respiratory Exam: Clear to Ausculation Bilateral, NORMAL BREATHING PATTERN. absent: Decreased Breath Sounds, Rales, Rhonchi, Wheezes, Respiratory Distress - Cardiovascular Exam Cardiovascular Exam: REGULAR RHYTHM, +S1, +S2. absent: Tachycardia, Murmur - GI/Abdominal Exam GI & Abdominal Exam: Soft, Normal Bowel Sounds. absent: Firm, Tenderness - Extremities Exam Additional comments: ulcer lateral aspect of left LE - Neurological Exam Neurological Exam: Alert, Awake, Oriented x3 - Skin Skin Exam: Dry, Intact, Normal Color, Warm Assessment and Plan - Assessment and Plan (Free Text) Assessment: 56 yo male with PMH for COPD, DMII, CAD with stents, a. fib on coumadin, HTN, h.o left leg thrombectomy, with defibrillator presented with mild nonproductive cough, shortness of breath and chest pain with left leg ulcer. Plan: 1. left leg ulcer - pt has h/o of Peripheral artery disease - lower extremity US showed normal ABIs at rest, bilateral symmetric trifurcation and tibial disease - consulted IR - vascular surgery consulted 2. SOB - improved - most likely 2/2 copd exacerbation vs chf exacerbation - patient received solu- medrol 125gm and lasix in ED - cont solu-medrol 40 mg daily - cont lasix po bid - Bipap at night - cxr showed no active disease - pulm and cardiology consulted 3. Chest pain - improved, most likely due to sob - EKG in ED showed paced rhythm with rate of 72 - Echo on 10/04/16 showed EF of 33%, mild mitral regurgitation, and tricuspid regurgitation, dilated IVC, pacemaker lead in right ventricle - cont asa, lipitor, digoxin, lasix, lopressor, verapamil - cardiology consulted, notes reviewed 4. a. fib - INR supra therapeutic on admission - warfarin restarted 7 mg - patient receiving steroids will increase inr - rate controlled, continue metoprolol, digoxin, veramil 5. HTN - controlled - cont home meds 6. Diabetes II - elevated, probably due to steroids - cont home glimepiride - levemir started, cont ISS - fingerstick ACHS <Axel Villagomez S - Last Filed: 01/04/17 17:17> Objective - Vital Signs/Intake and Output Vital Signs (last 24 hours): Temp Pulse Resp BP Pulse Ox 97.8 F 94 H 18 117/58 L 69 L 01/04/17 13:50 01/04/17 13:50 01/04/17 13:50 01/04/17 17:01 01/04/17 13:50 Intake and Output: 01/04/17 01/04/17 06:59 18:59 Intake Total 280 275 Output Total 0 140 Balance 280 135 - Medications Medications: Current Medications Aspirin (Ecotrin) 81 mg PO DAILY [facility] Last Admin: 01/04/17 09:42 Dose: 81 mg Atorvastatin Calcium (Lipitor) 40 mg PO DIN [facility] Last Admin: 01/04/17 16:44 Dose: 40 mg Digoxin (Lanoxin) 0.125 mg PO 1400 [facility] Last Admin: 01/04/17 14:09 Dose: 0.125 mg Furosemide (Lasix) 40 mg PO BID [facility] Last Admin: 01/04/17 17:01 Dose: 40 mg Glimepiride (Amaryl) 4 mg PO 0800 [facility] Last Admin: 01/04/17 07:58 Dose: 4 mg Insulin Detemir (Levemir) 30 unit SC BID [facility] Last Admin: 01/04/17 17:07 Dose: 30 unit Insulin Human Regular (Humulin R High) 0 units SC ACHS [facility] PRN Reason: Protocol Last Admin: 01/04/17 16:43 Dose: 7 units Levalbuterol HCl (Xopenex) 0.63 mg IH TIDRESP [facility] Last Admin: 01/04/17 13:49 Dose: 0.63 mg Lorazepam (Ativan) 1 mg PO BID PRN; Protocol PRN Reason: Anxiety Last Admin: 01/04/17 14:59 Dose: 1 mg Methylprednisolone (Solu-Medrol) 40 mg IVP DAILY [facility] Last Admin: 01/04/17 09:46 Dose: 40 mg Metoprolol Tartrate (Lopressor) 50 mg PO BID [facility] Last Admin: 01/04/17 17:01 Dose: 50 mg Oxycodone/Acetaminophen (Percocet 5/325 Mg Tab) 1 tab PO Q4H PRN PRN Reason: Pain, moderate (4-7) Stop: 01/06/17 09:26 Last Admin: 01/04/17 10:21 Dose: 1 tab Trazodone HCl (Desyrel) 150 mg PO HS [facility] Last Admin: 01/03/17 21:45 Dose: 150 mg Verapamil HCl (Calan Tab) 80 mg PO TID [facility] Last Admin: 01/04/17 17:01 Dose: 80 mg Warfarin Sodium (Coumadin) 5 mg PO 1800 [facility] PRN Reason: Protocol Last Admin: 01/04/17 17:01 Dose: 5 mg - Labs Labs: PT 32.7 SECONDS (9.4-12.5) H* 01/04/17 06:30 INR 2.91 (0.93-1.08) H 01/04/17 06:30 APTT 37.1 Seconds (23.7-30.8) H 01/02/17 16:20 Assessment and Plan - Assessment and Plan (Free Text) Plan: Pt seen and examined. Agree with above note of director of medical education. Labs and meds reviewed. I reviewed the note of the program consultant on the case. Pt complains of L left pain. Will get vascular consult.
--- NOTE | 2017-01-04 19:35 | PN ---
DATE: 01/04/2017 REASON FOR CONSULTATION AND FOLLOWUP: Cardiomyopathy, status post AICD, paroxysmal atrial fibrillation, noncompliance with the medication, admitted with shortness of breath, rule out CHF. SUBJECTIVE: The patient denies any chest pain, shortness of breath or any palpitation. Complained of pain in the left leg off and on at the ulcer site, not the whole calf. OBJECTIVE: GENERAL: Sitting at the bedside. Not in apparent distress. Went for the ultrasound of the lower extremity, going for ultrasound duplex study, going for arterial TREVON for bilateral lower extremity duplex*------*. VITAL SIGNS: As follows: Temperature afebrile, heart rate 94, blood pressure 104/67. HEENT: PERRLA. Extraocular muscles are intact. NECK: Supple. No carotid bruit or thyromegaly. CHEST: Clear to auscultation. HEART: S1 and S2 regular. ABDOMEN: Soft. EXTREMITIES: Clubbing and cyanosis negative. LABORATORY DATA: Blood workup as follows: WBC 9.5, hemoglobin 12.3, hematocrit 38.0, and platelet count 167. Chemistry shows sodium 130, potassium 3.8, chloride 98, carbon dioxide 31, anion gap of 13, BUN 17, creatinine 0.9. Triglyceride 101, total cholesterol 201, LDL 162, HDL 31, TSH 0.96. IMPRESSION: Hyperlipidemia, morbid obesity, body mass index of 39.2 kg/m2, noncompliance with medications, decompensated congestive heart failure, status post cardiac catheterization three times, nonobstructive coronary artery disease and decreased left ventricular function, cardiomyopathy, status post automatic implantable cardioverter defibrillator, paroxysmal atrial fibrillation, now patient in normal V paced rhythm, underlying sinus mechanism, history of deep venous thrombosis of right femoral vein, history of atrial fibrillation, history of radiofrequency ablation of atrial fibrillation, history of acute left lower extremity thrombus and status post arterial thrombus. Failed transesophageal echocardiography cardioversion. RECOMMENDATIONS: Continue diuretics. Last echo, the patient at [facility] on 08/15/2016, shows mildly dilated LV, severely impaired right ventricle, moderately dilated right ventricle, ejection fraction 24%. The patient is very noncompliant with the medication. No evidence of acute VT. Continue verapamil. Continue Coumadin. Goal is to keep INR at . INR is going up, so we will change to 5 mg today. The patient was taking 5 mg as per chart, so we will change to 5 mg from today and change from 7.5. Discontinue Telemetry. Continue medical treatment. Emphasis on weight reduction and compliance with medication. We will also get SMA-7 and CBC in the morning. Assuming the liver functions are stable, we will add on atorvastatin 40 mg daily because of hyperlipidemia. Depending upon further INR tomorrow, dose may be adjusted. We will discontinue Telemetry. Thank you Dr. Villagomez for providing us the opportunity in taking care of the patient, Alex. Tia Rajan MD
--- NOTE | 2017-01-05 00:56 | CON ---
DATE: REASON FOR CONSULTATION: Left leg claudication and painful ulcer. HISTORY OF PRESENT ILLNESS: The patient is a 56-year-old man with a long history of diabetes and cardiac disease. He had chronic atrial fibrillation, treated with ablation therapy. He had cardiomyopathy with low ejection fraction. He also has implantation of AICD. Currently, his ejection fraction is felt to be under 40%. He also had a long history of peripheral vascular disease. He had left popliteal embolus x2, the last one in 11/2016, it was treated with thrombolysis and tibioperoneal trunk stent by Dr. John Paul Cannon. The patient complaint that the pain never improved and his lateral leg ulcer is painful continuously. He also have one block calf claudication. PAST MEDICAL HISTORY: He has chronic obstructive pulmonary disease, cardiomyopathy, diabetes, coronary artery disease, and history of thrombo hypercoagulability. SOCIAL HISTORY: He recently stopped smoking, had a former history of cocaine use and also have been alcoholic. He had a long history of noncompliance with medication and his CPAP. CURRENT MEDICATIONS: He is on Amaryl, Ativan, Calan, Coumadin, digoxin, Lasix, Levemir, Lipitor, and metoprolol. REVIEW OF SYSTEMS: Other than what I stated in the medical history, the remainder of the 14-point was unremarkable. PHYSICAL EXAMINATION: GENERAL: This is an obese male, does not appear to be in any distress. HEENT: Within normal limits. CHEST: He has distal breath sounds. ABDOMEN: Obese. EXTREMITIES: He has palpable femoral pulses and no distal pulses. He only has signal in his foot. Both feet were cool, but they have good capillary refill and Doppler signal is present at the posterior tibial area. This is a small 1 x 1 cm ulcer in the lateral calf. LABORATORY DATA: Show hemoglobin of 12.7. PT and INR was 3.89 and currently 2.85. Noninvasive arterial exam show normal TREVON at rest, blunting of the waveform suggestive of tibial disease. IMPRESSION AND PLAN: In view of the patient's cardiac history, noncompliance with medication, hypercoagulability, bypass surgery, [id number] should be reserve for limb salvage. His ulcer pain could have a component of neuropathic pain suggest trial of either Lyrica or Neurontin. Katrin Wick MD [facility] # [id number]
--- NOTE | 2017-01-05 02:20 | PN ---
PULMONARY PROGRESS NOTE DATE: 01/04/2017 REFERRING PHYSICIAN: Axel Villagomez MD SUBJECTIVE: He is out of bed to chair. Night was unremarkable. Does not use CPAP. No headache, no rhinitis, no nausea, no vomiting, no diarrhea. He has a left lower extremity pain. PHYSICAL EXAMINATION: GENERAL: In no acute distress. VITAL SIGNS: Temperature 98, heart rate is 94, respiratory rate is 24, blood pressure 170/58, and pulse ox is 96% on room air. HEENT: Moist mucous membrane. Crowded airway. Mallampati score is 4. NECK: Supple. No JVD. LUNGS: A few crackles at the bases. HEART: S1 and S2. ABDOMEN: Soft, nontender. No organomegaly. EXTREMITIES: There is edema of the both lower extremities. Left leg is tender to touch. NEUROLOGICAL: Awake and alert. Follow simple commands. MEDICATIONS: He is on Amaryl 4 mg daily, Ativan 1 mg twice a day p.r.n., Calan 80 mg three times a day, Coumadin 5 mg will be given tonight, trazodone 150 mg at bedtime, Ecotrin 81 mg daily, insulin coverage, Digoxin 0.125 mg daily, Lasix 40 mg twice a day, Levemir 30 units subcutaneous twice a day, Lipitor 40 mg daily, metoprolol tartrate 50 mg twice a day, Percocet 5/325 one time q. 4 hour p.r.n., Solo-Medrol 40 mg daily, Xopenex inhaler three times a day. LABORATORY DATA: Reviewed and shows INR 2.91, blood sugar 242, magnesium 2.1. He had an extremity ultrasound done, which showed normal TREVON at the wrist, bilateral symmetrical trifurcation tibial disease. IMPRESSION: Recurrent cardiomyopathy, history of atrial fibrillation requiring ablation therapy, history of AICD, congestive heart failure, chronic obstructive lung disease, obstructive sleep apnea syndrome, diabetes, hypertension, peripheral vascular disease, history of thromboembolic disease, nonhealing leg ulcer. Pulmonary point of view, doing okay. Encourage BiPAP use, bronchodilator, diuretics, beta-blockers. May add Pletal 100 mg twice a day. Fall precautions. Elevate lower extremities. Thank you, and we will follow with you. Tia Godinez MD [facility] # [id number]
[2017-01-05 06:50] LABS: INR 2.92 (0.93-1.08)
[2017-01-05 06:58] LABS: ALB/GLOB RATIO 1.6 (1.1-1.8); ALKALINE PHOSPHATASE 51 U/L (38-126); ALT/SGPT 28 U/L (7-56); AST/SGOT 15 U/L (17-59); BILIRUBIN,TOTAL 0.4 mg/dL (0.2-1.3); BLOOD UREA NITROGEN 24 mg/dL (7-21); CALCIUM 8.6 mg/dL (8.4-10.5); CARBON DIOXIDE 29 mmol/L (21-33); CHLORIDE 99 mmol/L (98-107); GFR AFRICAN-AMERICAN > 60; GLUCOSE,RANDOM 233 mg/dL (70-110); PHOSPHOROUS 4.1 mg/dL (2.5-4.5); POTASSIUM 4.2 mmol/L (3.6-5.0); SODIUM 139 mmol/L (132-148); TOTAL PROTEIN 6.2 g/dL (5.8-8.3)
[2017-01-05 07:03] LABS: EOS % 0.1 % (1.5-5.0); GRAN # 11.78 (1.4-6.5); GRAN % 84.9 % (50.0-68.0); HEMATOCRIT 37.2 % (42.0-52.0); LYMPH # 1.3 (1.2-3.4); LYMPH % 9.2 % (22.0-35.0); MEAN CELL VOLUME 86.7 fl (80.0-105.0); MEAN CORPUSCULAR HEMOGLOBIN 28.7 pg (25.0-35.0); MEAN CORPUSCULAR HGB CONC 33.1 g/dl (31.0-37.0); MEAN PLATELET VOLUME 10.2 fl (7.0-11.0); MONO # 0.8 (0.1-0.6); MONO % 5.8 % (1.0-6.0); RED CELL DISTRIBUTION WIDTH 15.5 % (11.5-14.5); WHITE BLOOD COUNT 13.9 10^3/ul (4.5-11.0)
[2017-01-05] MEDS: Levalbuterol 0.63 MG/3 ML Inhal Soln UD IH SCH (07:12)
[2017-01-05 08:31] VITALS: BP 116/60; PULSE 69; RESP 20; TEMP 97; O2SAT 100
[2017-01-05] MEDS: Insulin Reg-HIGH-Coverage SC SCH (09:31)
[2017-01-05] MEDS: MethylPREDNISolone 40 mg Vial IVP SCH (09:34)
[2017-01-05] MEDS ORDERED: Cilostazol 100 mg Tab UD PO SCH (10:00)
--- NOTE | 2017-01-05 12:01 | CP.PCM.DIS ---
<Martine Ignacio - Last Filed: 01/05/17 12:00> Provider - Provider Date of Admission: 01/02/17 18:21 Attending physician: Axel Villagomez MD Primary care physician: Axel Villagomez MD Time Spent in preparation of Discharge (in minutes): 40 Hospital Course - Lab Results Lab Results: Most Recent Lab Values WBC 13.9 10^3/ul (4.5-11.0) H D 01/05/17 06:37 RBC 4.29 10^6/uL (3.5-6.1) 01/05/17 06:37 Hgb 12.3 g/dL (14.0-18.0) L 01/05/17 06:37 Hct 37.2 % (42.0-52.0) L 01/05/17 06:37 MCV 86.7 fl (80.0-105.0) 01/05/17 06:37 MCH 28.7 pg (25.0-35.0) 01/05/17 06:37 MCHC 33.1 g/dl (31.0-37.0) 01/05/17 06:37 RDW 15.5 % (11.5-14.5) H 01/05/17 06:37 Plt Count 148 10^3/uL (120.0-450.0) 01/05/17 06:37 MPV 10.2 fl (7.0-11.0) 01/05/17 06:37 Gran % 84.9 % (50.0-68.0) H 01/05/17 06:37 Lymph % (Auto) 9.2 % (22.0-35.0) L 01/05/17 06:37 [place] % (Auto) 5.8 % (1.0-6.0) 01/05/17 06:37 Eos % (Auto) 0.1 % (1.5-5.0) L 01/05/17 06:37 Baso % (Auto) 0.0 % (0.0-3.0) 01/05/17 06:37 Gran # 11.78 (1.4-6.5) H 01/05/17 06:37 Lymph # 1.3 (1.2-3.4) 01/05/17 06:37 [place] # 0.8 (0.1-0.6) H 01/05/17 06:37 Eos # 0.0 (0.0-0.7) 01/05/17 06:37 Baso # 0.00 K/mm3 (0.0-2.0) 01/05/17 06:37 PT 32.8 SECONDS (9.4-12.5) H* 01/05/17 06:37 INR 2.92 (0.93-1.08) H 01/05/17 06:37 APTT 37.1 Seconds (23.7-30.8) H 01/02/17 16:20 Sodium 139 mmol/L (132-148) 01/05/17 06:37 Potassium 4.2 mmol/L (3.6-5.0) 01/05/17 06:37 Chloride 99 mmol/L (98-107) 01/05/17 06:37 Carbon Dioxide 29 mmol/L (21-33) 01/05/17 06:37 Anion Gap 15 (10-20) 01/05/17 06:37 BUN 24 mg/dL (7-21) H 01/05/17 06:37 Creatinine 0.8 mg/dL (0.8-1.5) 01/05/17 06:37 Est GFR ( Amer) > 60 01/05/17 06:37 Est GFR (Non-Af Amer) > 60 01/05/17 06:37 POC Glucose (mg/dL) 237 mg/dL (65-110) H 01/05/17 07:15 Random Glucose 233 mg/dL (70-110) H 01/05/17 06:37 Hemoglobin A1c 8.1 % (4.2-6.5) H 01/03/17 09:00 Calcium 8.6 mg/dL (8.4-10.5) 01/05/17 06:37 Phosphorus 4.1 mg/dL (2.5-4.5) 01/05/17 06:37 Magnesium 2.0 mg/dL (1.7-2.2) 01/05/17 06:37 Total Bilirubin 0.4 mg/dL (0.2-1.3) 01/05/17 06:37 AST 15 U/L (17-59) L D 01/05/17 06:37 ALT 28 U/L (7-56) 01/05/17 06:37 Alkaline Phosphatase 51 U/L (38-126) 01/05/17 06:37 Lactate Dehydrogenase 415 U/L (333-699) 01/02/17 16:20 Total Creatine Kinase 78 U/L (35-230) 01/02/17 16:20 Troponin I 0.04 ng/mL 01/03/17 09:00 C-React Prot High Sens 8.18 mg/L (1.00-3.00) H 01/03/17 09:00 NT-Pro-B Natriuret Pep 1630 pg/mL (0-450) H 01/02/17 16:20 Total Protein 6.2 g/dL (5.8-8.3) 01/05/17 06:37 Albumin 3.8 g/dL (3.0-4.8) 01/05/17 06:37 Globulin 2.4 gm/dL 01/05/17 06:37 Albumin/Globulin Ratio 1.6 (1.1-1.8) 01/05/17 06:37 Triglycerides 101 mg/dL (35-160) 01/03/17 09:00 Cholesterol 201 mg/dL (130-200) H 01/03/17 09:00 LDL Cholesterol Direct 162 mg/dL (0-129) H 01/03/17 09:00 HDL Cholesterol 31 mg/dL (29-60) 01/03/17 09:00 TSH 3rd Generation 0.96 mIU/mL (0.46-4.68) 01/03/17 09:00 Digoxin 0.7 ng/mL (0.8-2.0) L 01/02/17 16:20 - Hospital Course Hospital Course: 56 yo male with PMH for COPD, DMII, CAD with stents, a. fib on coumadin, HTN, h.o left leg thrombectomy, with defibrillator presented with mild nonproductive cough, shortness of breath and chest pain with left leg ulcer. Lower extremity US showed normal ABIs at rest, bilateral symmetric trifurcation and tibial disease. Vascular surgery consulted recommended medical management. Patients SOB , cough and chest discomfort most likely due to copd exacerbation and chf exacerbation. Patient received solu- medrol, lasix, symptoms improved. cxr showed no active disease. Pulmonary and cardiology were consulted. Echo on showed EF of 33%, mild mitral regurgitation, and tricuspid regurgitation, dilated IVC, pacemaker lead in right ventricle. During hospital course patient was also found to have supra therapeutic INR. Warfarin was held for 1 day and restarted. HTN and diabetes were managed well in hospital. Patient is feeling better, he was given new prescription for the pain in his LE. Patient is aware of hospital course and discharge instructions. Discharge Exam - Head Exam Head Exam: ATRAUMATIC, NORMAL INSPECTION, NORMOCEPHALIC - Eye Exam Eye Exam: EOMI, Normal appearance - Respiratory Exam Respiratory Exam: Clear to PA & Lateral, NORMAL BREATHING PATTERN, UNREMARKABLE. absent: Decreased Breath Sounds, Rales, Rhonchi, Wheezes, Respiratory Distress, Stridor - Cardiovascular Exam Cardiovascular Exam: REGULAR RHYTHM, +S1, +S2. absent: Tachycardia, Systolic Murmur - GI/Abdominal Exam GI & Abdominal Exam: Normal Bowel Sounds, Soft. absent: Distended, Firm, Guarding, Tenderness - Extremities Exam Additional comments: ulcer left leg - Back Exam Back exam: NORMAL INSPECTION. absent: CVA tenderness (L), CVA tenderness (R) - Neurological Exam Neurological exam: Alert, Oriented x3 - Skin Skin Exam: Dry, Intact, Normal Color, Warm Discharge Plan - Discharge Medications Prescriptions: Gabapentin 300 mg PO HS #30 capsule LORazepam [Ativan] 1 mg PO BID PRN #60 tab PRN Reason: Anxiety oxyCODONE/Acetaminophen [Percocet 5/325 mg Tab] 1 tab PO Q6H PRN #20 tab PRN Reason: Pain, Moderate (4-7) - Follow Up Plan Condition: FAIR Disposition: HOME/ ROUTINE Instructions: Heart Failure (DC), Chest Pain (DC), Pneumococcal Vaccine for Adults (DC), Diabetes Mellitus Type 2 in Adults (DC), Influenza Vaccine (DC), COPD (Chronic Obstructive Pulmonary Disease) (DC), Chronic Hypertension (DC), Fall Prevention (DC) Additional Instructions: Discharge patient to home. Follow medications as prescribed. Report to ED if your symptoms worsen. Referrals: Axel Villagomez MD [Primary Care Provider] - <Axel Villagomez - Last Filed: 01/05/17 20:05> Provider - Provider Date of Admission: 01/02/17 18:21 Attending physician: Axel Villagomez MD Primary care physician: Axel Villagomez MD Hospital Course - Lab Results Lab Results: Most Recent Lab Values WBC 13.9 10^3/ul (4.5-11.0) H D 01/05/17 06:37 RBC 4.29 10^6/uL (3.5-6.1) 01/05/17 06:37 Hgb 12.3 g/dL (14.0-18.0) L 01/05/17 06:37 Hct 37.2 % (42.0-52.0) L 01/05/17 06:37 MCV 86.7 fl (80.0-105.0) 01/05/17 06:37 MCH 28.7 pg (25.0-35.0) 01/05/17 06:37 MCHC 33.1 g/dl (31.0-37.0) 01/05/17 06:37 RDW 15.5 % (11.5-14.5) H 01/05/17 06:37 Plt Count 148 10^3/uL (120.0-450.0) 01/05/17 06:37 MPV 10.2 fl (7.0-11.0) 01/05/17 06:37 Gran % 84.9 % (50.0-68.0) H 01/05/17 06:37 Lymph % (Auto) 9.2 % (22.0-35.0) L 01/05/17 06:37 [place] % (Auto) 5.8 % (1.0-6.0) 01/05/17 06:37 Eos % (Auto) 0.1 % (1.5-5.0) L 01/05/17 06:37 Baso % (Auto) 0.0 % (0.0-3.0) 01/05/17 06:37 Gran # 11.78 (1.4-6.5) H 01/05/17 06:37 Lymph # 1.3 (1.2-3.4) 01/05/17 06:37 [place] # 0.8 (0.1-0.6) H 01/05/17 06:37 Eos # 0.0 (0.0-0.7) 01/05/17 06:37 Baso # 0.00 K/mm3 (0.0-2.0) 01/05/17 06:37 PT 32.8 SECONDS (9.4-12.5) H* 01/05/17 06:37 INR 2.92 (0.93-1.08) H 01/05/17 06:37 APTT 37.1 Seconds (23.7-30.8) H 01/02/17 16:20 Sodium 139 mmol/L (132-148) 01/05/17 06:37 Potassium 4.2 mmol/L (3.6-5.0) 01/05/17 06:37 Chloride 99 mmol/L (98-107) 01/05/17 06:37 Carbon Dioxide 29 mmol/L (21-33) 01/05/17 06:37 Anion Gap 15 (-20) 01/05/17 06:37 BUN 24 mg/dL (7-21) H 01/05/17 06:37 Creatinine 0.8 mg/dL (0.8-1.5) 01/05/17 06:37 Est GFR ( Amer) > 60 01/05/17 06:37 Est GFR (Non-Af Amer) > 60 01/05/17 06:37 POC Glucose (mg/dL) 237 mg/dL (65-110) H 01/05/17 07:15 Random Glucose 233 mg/dL (70-110) H 01/05/17 06:37 Hemoglobin A1c 8.1 % (4.2-6.5) H 01/03/17 09:00 Calcium 8.6 mg/dL (8.4-10.5) 01/05/17 06:37 Phosphorus 4.1 mg/dL (2.5-4.5) 01/05/17 06:37 Magnesium 2.0 mg/dL (1.7-2.2) 01/05/17 06:37 Total Bilirubin 0.4 mg/dL (0.2-1.3) 01/05/17 06:37 AST 15 U/L (17-59) L D 01/05/17 06:37 ALT 28 U/L (7-56) 01/05/17 06:37 Alkaline Phosphatase 51 U/L (38-126) 01/05/17 06:37 Lactate Dehydrogenase 415 U/L (333-699) 01/02/17 16:20 Total Creatine Kinase 78 U/L (35-230) 01/02/17 16:20 Troponin I 0.04 ng/mL 01/03/17 09:00 C-React Prot High Sens 8.18 mg/L (1.00-3.00) H 01/03/17 09:00 NT-Pro-B Natriuret Pep 1630 pg/mL (0-450) H 01/02/17 16:20 Total Protein 6.2 g/dL (5.8-8.3) 01/05/17 06:37 Albumin 3.8 g/dL (3.0-4.8) 01/05/17 06:37 Globulin 2.4 gm/dL 01/05/17 06:37 Albumin/Globulin Ratio 1.6 (1.1-1.8) 01/05/17 06:37 Triglycerides 101 mg/dL (35-160) 01/03/17 09:00 Cholesterol 201 mg/dL (130-200) H 01/03/17 09:00 LDL Cholesterol Direct 162 mg/dL (0-129) H 01/03/17 09:00 HDL Cholesterol 31 mg/dL (29-60) 01/03/17 09:00 TSH 3rd Generation 0.96 mIU/mL (0.46-4.68) 01/03/17 09:00 Digoxin 0.7 ng/mL (0.8-2.0) L 01/02/17 16:20 - Hospital Course Hospital Course: Pt is seen and examined. Note of medical laboratory technicians reviewed and I am in agree with it. Reviewed Labs and medications. Reviewed notes. No surgical intervention needed. US of legs reviewed.
--- NOTE | 2017-01-05 12:49 | PN ---
REASON FOR CONSULTATION: Followup of cardiomyopathy, status post AICD, paroxysmal atrial fibrillation, noncompliance with medication, admitted with shortness of breath, rule out CHF. SUBJECTIVE: Denies any chest pain, shortness of breath. Feels a lot better. Complained of mild leg pain. OBJECTIVE: GENERAL: Not in apparent distress, sitting at the bedside. Feels a lot better in terms of respiration. VITAL SIGNS: Temperature afebrile, heart rate 69 and blood pressure 106/70. HEENT: PERRLA. Extraocular muscles are intact. NECK: Supple. No carotid bruit or thyromegaly. CHEST: Clear to auscultation. HEART: S1 and S2 regular. ABDOMEN: Soft. EXTREMITIES: Clubbing and cyanosis negative. LABORATORY DATA: Blood workup as follows: WBC 13.9, hemoglobin 12.3, hematocrit 37.2, and platelet count 148. Chemistry shows sodium , potassium 4.2, chloride 99, carbon dioxide 29, anion gap of 15, BUN 24 and creatinine 0.8. IMPRESSION: Decompensated congestive heart failure, paroxysmal atrial fibrillation, normal sinus, history of automatic implantable cardioverter-defibrillator, history of radiofrequency ablation, status post cardiac catheterization, nonobstructive coronary artery disease, history of deep venous thrombosis, history of acute thrombosis of femoral artery in the past, failed transesophageal echocardiography cardioversion, history of repeat arterial duplex scan done on 01/04, yesterday that showed normal TREVON at rest, bilateral symmetrical trifurcation and tibial disease. RECOMMENDATIONS: No intervention for peripheral artery required at this time. Continue verapamil. Continue Coumadin. Compliance with medication. Goal is to keep INR greater than 2.92. Yesterday, I decreased the dose of the Coumadin to 5, continue Coumadin for now. Continue digoxin. Continue Lasix. Continue metoprolol [address] Villagomez for providing us the opportunity in taking care of the patient. Tia Rajan MD
== END 2017-01-05 12:11 | disposition home or self-care (01) | DRG 190 ==
LOC: ED 15:40 → ERH 17:52 → OBSVTOIN 18:21 → ERH 18:57 → 2RSO 20:08 → 5RNO 01-04 13:44
PROVIDERS: ADMIT Internal Medicine Nephrology; ATTEND Internal Medicine Nephrology
PROC: 3E0F7GC Introduction of Other Therapeutic Substance into Respiratory Tract, Via Natural or Artificial Opening (ICD-10-PCS; principal; 2017-01-03)
DX: J44.1 Chronic obstructive pulmonary disease with (acute) exacerbation (principal); I50.23 Acute on chronic systolic (congestive) heart failure; I42.9 Cardiomyopathy, unspecified; E11.42 Type 2 diabetes mellitus with diabetic polyneuropathy; E11.51 Type 2 diabetes mellitus with diabetic peripheral angiopathy without gangrene; E66.01 Morbid (severe) obesity due to excess calories; L97.929 Non-pressure chronic ulcer of unspecified part of left lower leg with unspecified severity; E11.622 Type 2 diabetes mellitus with other skin ulcer; I08.1 Rheumatic disorders of both mitral and tricuspid valves; I48.0 Paroxysmal atrial fibrillation; I25.10 Atherosclerotic heart disease of native coronary artery without angina pectoris; I48.2 Chronic atrial fibrillation; I11.0 Hypertensive heart disease with heart failure; G47.33 Obstructive sleep apnea (adult) (pediatric); E78.00 Pure hypercholesterolemia, unspecified; K21.9 Gastro-esophageal reflux disease without esophagitis; Z79.01 Long term (current) use of anticoagulants; Z79.4 Long term (current) use of insulin; Z68.39 Body mass index [BMI] 39.0-39.9, adult; Z91.19 Patient's noncompliance with other medical treatment and regimen; Z91.14 Patient's other noncompliance with medication regimen; Z86.718 Personal history of other venous thrombosis and embolism; Z98.84 Bariatric surgery status; Z95.810 Presence of automatic (implantable) cardiac defibrillator; Z95.5 Presence of coronary angioplasty implant and graft; Z87.891 Personal history of nicotine dependence

== ENCOUNTER 2017-01-29 14:04 | Observation (INO) | payer MEDICARE, OTHER ==
[2017-01-29 14:05] VITALS: PULSE 74
--- NOTE | 2017-01-29 14:32 | ED PDOC ---
Arrival/HPI - General Time Seen by Provider: 01/29/17 14:10 Historian: Patient - History of Present Illness Narrative History of Present Illness (Text): 01/29/17 14:28 A 56 year old male, whose past medical history includes COPD, CAD, chf, cardiomyopathy and atrial fibrillation with AICD, tobacco use, with hx of medication non-compliance, presents to the emergency department complaining of chest pain and shortness of breath since earlier today. He reports "this is the same as all the other times." Patient was recently admitted for similar complaints 1 week ago. Patient admits to not being compliant with his medication. Patient denies any fever, chills, nausea, vomiting, abdominal pain. PMD: Dr. Villagomez Operations Examiner: Dr. Rajan Time/Duration: Other (today) Symptom Course: Unchanged Quality: Other Context: Home Past Medical History - Provider Review Nursing Documentation Reviewed: Yes - Infectious Disease Hx of Infectious Diseases: None - Tetanus Immunization Tetanus Immunization: Unknown - Cardiac Hx Cardiac Arrhythmia: Yes (afib) Hx Congestive Heart Failure: Yes Hx Hypertension: Yes Hx Pacemaker: Yes (defibrilator) Hx Peripheral Vascular Disease: Yes - Pulmonary Hx Bronchitis: Yes Hx Chronic Obstructive Pulmonary Disease (COPD): Yes Hx Emphysema: Yes Hx Pneumonia: Yes Hx Sleep Apnea: Yes - Neurological Hx Neurological Disorder: Yes (numbness both thighs) Hx Dizziness: Yes - HEENT Hx HEENT Disorder: Yes (eyeglasses) Hx Deafness: Yes - Renal Hx Renal Disorder: No - Endocrine/Metabolic Hx Endocrine Disorders: Yes Hx Diabetes Mellitus Type 2: Yes - Hematological/Oncological Hx Blood Disorders: No - Integumentary Hx Dermatological Disorder: Yes - Musculoskeletal/Rheumatological Hx Arthritis: Yes Hx Falls: Yes Hx Unsteady Gait: Yes - Gastrointestinal Hx Gastroesophageal Reflux: Yes - Genitourinary/Gynecological Hx Genitourinary Disorders: No - Psychiatric Hx Anxiety: Yes Hx Bipolar Disorder: Yes Hx Depression: Yes Hx Substance Use: Yes (COCAINE, QUIT 25 YRS AGO) - Past Surgical History Past Surgical History: Non-Contributing - Surgical History Hx Coronary Stent: Yes - Anesthesia Hx Anesthesia: Yes Hx Anesthesia Reactions: No Hx Malignant Hyperthermia: No - Suicidal Assessment Feels Threatened In Home Enviroment: No Family/Social History - Physician Review Nursing Documentation Reviewed: Yes Family/Social History: No Known Family HX Smoking Status: Former Smoker Hx Alcohol Use: Yes (QUIT 25 YRS AGO) Hx Substance Use: Yes (COCAINE, QUIT 25 YRS AGO) Hx Substance Use Treatment: Yes Allergies/Home Meds Allergies/Adverse Reactions: Allergies quetiapine fumarate [From Seroquel] Adverse Reaction (Verified 01/21/17 15:37) ANAPHYLAXIS wild berries Allergy (Intermediate, Uncoded 12/05/16 08:32) RASH Home Medications: Home Meds Medication Instructions Recorded Confirmed Insulin Detemir [Levemir] 30 units SC BID 02/26/16 01/29/17 traZODone [Desyrel] 150 mg PO HS 11/26/16 01/29/17 Review of Systems - Physician Review All systems were reviewed & negative as marked: Yes - Review of Systems Constitutional: absent: Fevers, Night Sweats Respiratory: SOB. absent: Cough, Sputum Cardiovascular: Chest Pain Gastrointestinal: absent: Abdominal Pain, Constipation, Diarrhea, Nausea, Vomiting Neurological: absent: Headache, Dizziness Physical Exam Vital Signs Pulse Resp BP Pulse Ox 01/29/17 18:11 153/68 H 01/29/17 14:05 76 26 H 160/102 H 94 L Temperature: Afebrile Blood Pressure: Hypertensive Pulse: Regular Respiratory Rate: Tachypneic Appearance: Positive for: Non-Toxic, Comfortable, Other (Obese male) Pain Distress: None Mental Status: Positive for: Alert and Oriented X 3 - Systems Exam Head: Present: Atraumatic, Normocephalic Pupils: Present: PERRL Extroacular Muscles: Present: EOMI Conjunctiva: Present: Normal Mouth: Present: Moist Mucous Membranes Neck: Present: Normal Range of Motion Respiratory/Chest: Present: Good Air Exchange, Rales. No: Respiratory Distress , Accessory Muscle Use Cardiovascular: Present: Regular Rate and Rhythm, Normal S1, S2. No: Murmurs Abdomen: Present: Normal Bowel Sounds. No: Tenderness, Distention, Peritoneal Signs Back: Present: Normal Inspection Upper Extremity: Present: Normal Inspection. No: Cyanosis, Edema Lower Extremity: No: Edema Neurological: Present: GCS=15, CN II-XII Intact, Speech Normal Skin: Present: Warm, Dry, Normal Color. No: Rashes Psychiatric: Present: Alert, Oriented x 3, Normal Insight, Normal Concentration Medical Decision Making ED Course and Treatment: 01/29/17 14:28 Impression: A 56 year old male with chest pain and shortness of breath Plan: -- Chest xray -- EKG -- Labs -- Aspirin -- Reassess and disposition Prior Visits: Notes and results from previous visits were reviewed. Patient last admitted on 01/21/17 for chest pain. Progress Notes: EKG shows paced rhythm at 70 BPM with no acute ST changes. Interpreted by me. Patient reports that he has not been able to apply for prescription drug coverage. [facility] [place] office called to help patient complete paperwork Report Date : 01/29/2017 15:03:55 Procedure: Chest xray Dictator : Darya Quan MD IMPRESSION: Findings are most compatible with congestive heart failure with moderate right pleural effusion. Underlying atelectasis/ pneumonia cannot be excluded. Follow-up is advised. 01/29/17 17:15 Patent was hypertensive, tachypneic and tachycardic on arrival with bnp and cxray consistent with chf and with elevated bnp. Lasix ordered. Maintaining saturation. Aspirin already given. Case discussed with Dr. Villagomez, states to admit to telemetry observation for CHF exacerbation. - Lab Interpretations Lab Results: 01/29/17 17:00 01/29/17 16:30 Lab Results 01/29/17 17:00: WBC 11.7 H D, RBC 4.42, Hgb 13.0 L, Hct 39.6 L, MCV 89.6, MCH 29.4, MCHC 32.8, RDW 15.7 H, Plt Count 206, MPV 10.2, Gran % 77.4 H, Lymph % ( Auto) 14.6 L, [place] % (Auto) 5.3, Eos % (Auto) 2.1, Baso % (Auto) 0.6, Gran # 9.04 H, Lymph # 1.7, [place] # 0.6, Eos # 0.2, Baso # 0.07 01/29/17 16:30: Digoxin < 0.4 L 01/29/17 16:30: Sodium 140, Potassium 4.5, Chloride 105, Carbon Dioxide 27, Anion Gap 13, BUN 17, Creatinine 0.8, Est GFR ( Amer) > 60, Est GFR (Non- Af Amer) > 60, Random Glucose 197 H, Calcium 9.2, Total Bilirubin 0.8, AST 23, ALT 29, Alkaline Phosphatase 76, Total Creatine Kinase 61, Troponin I 0.03 D, NT-Pro-B Natriuret Pep 2860 H, Total Protein 6.6, Albumin 3.9, Globulin 2.8, Albumin/Globulin Ratio 1.4 01/29/17 16:30: PT 46.3 H, INR 4.13 H*, APTT 38.9 H I have reviewed the lab results: Yes - RAD Interpretation Radiology Orders: 01/29/17 14:28 CHEST PORTABLE [RAD] Stat - Medication Orders Current Medication Orders: Furosemide (Lasix) 40 mg IVP DAILY [facility] Gabapentin (Neurontin) 300 mg PO HS [facility] PRN Reason: Protocol Glimepiride (Amaryl) 4 mg PO DAILY [facility] Insulin Detemir (Levemir) 20 unit SC BID [facility] Insulin Human Regular (Humulin R High) 0 units SC ACHS [facility] PRN Reason: Protocol Lisinopril (Zestril) 2.5 mg PO DAILY [facility] Lorazepam (Ativan) 1 mg PO BID PRN; Protocol PRN Reason: Anxiety Metformin HCl (Glucophage) 1,000 mg PO BID [facility] Trazodone HCl (Desyrel) 150 mg PO HS [facility] Discontinued Medications Aspirin (Aspirin Chewable) 324 mg PO STAT [facility] Stop: 01/29/17 14:35 Last Admin: 01/29/17 16:43 Dose: 324 mg Furosemide (Lasix) 80 mg IVP STAT STA Stop: 01/29/17 17:15 Last Admin: 01/29/17 18:11 Dose: 80 mg MAR Blood Pressure Document 01/29/17 18:11 [facility] (Rec: 01/29/17 18:16 [id number] Blood Pressure Blood Pressure (100/60-150/90) 153/68 IVP Administration Document 01/29/17 18:11 [facility] (Rec: 01/29/17 18:16 [id number] Charges for Administration # of IVP Administrations 1 - Scribe Statement The provider has reviewed the documentation as recorded by the Charlineibmadina Uribe Provider Scribe Attestation: All medical record entries made by the Scribe were at my direction and personally dictated by me. I have reviewed the chart and agree that the record accurately reflects my personal performance of the history, physical exam, medical decision making, and the department course for this patient. I have also personally directed, reviewed, and agree with the discharge instructions and disposition. Disposition/Present on Arrival - Present on Arrival Any Indicators Present on Arrival: No History of DVT/PE: Yes History of Uncontrolled Diabetes: Yes Urinary Catheter: No History Surgical Site Infection Following: None - Disposition Have Diagnosis and Disposition been Completed?: Yes Diagnosis: CHF exacerbation Disposition: HOSPITALIZED Disposition Time: 18:04 Patient Plan: Observation Condition: FAIR Discharge Instructions (ExitCare): Heart Failure (ED) Referrals: Axel Villagomez MD [Primary Care Provider] - Follow up with primary
[2017-01-29 14:40] VITALS: BMI 41.8
--- NOTE | 2017-01-29 15:05 | RAD ---
HISTORY: shortness of breth COMPARISON: 01/21/2017. FINDINGS: LUNGS: The lungs are well inflated. There is right lower lobe airspace disease. There is worsening pulmonary venous congestion and redistribution with interstitial pulmonary edema. PLEURA: There is interval development of moderate right pleural effusion and small left pleural effusion. CARDIOVASCULAR: Persistent moderate cardiomegaly. Stable left-sided dual lead transvenous permanent pacing device. OSSEOUS STRUCTURES: No significant abnormalities. VISUALIZED UPPER ABDOMEN: Normal. OTHER FINDINGS: None. IMPRESSION: Findings are most compatible with congestive heart failure with moderate right pleural effusion. Underlying atelectasis/ pneumonia cannot be excluded. Follow-up is advised.
[2017-01-29 16:53] LABS: ALB/GLOB RATIO 1.4 (1.1-1.8); ALKALINE PHOSPHATASE 76 U/L (38-126); ALT/SGPT 29 U/L (7-56); AST/SGOT 23 U/L (17-59); BILIRUBIN,TOTAL 0.8 mg/dL (0.2-1.3); BLOOD UREA NITROGEN 17 mg/dL (7-21); CALCIUM 9.2 mg/dL (8.4-10.5); CARBON DIOXIDE 27 mmol/L (21-33); CHLORIDE 105 mmol/L (98-107); GFR AFRICAN-AMERICAN > 60; GLUCOSE,RANDOM 197 mg/dL (70-110); POTASSIUM 4.5 mmol/L (3.6-5.0); SODIUM 140 mmol/L (132-148); TOTAL PROTEIN 6.6 g/dL (5.8-8.3)
[2017-01-29 16:57] LABS: INR 4.13 (0.93-1.08); PARTIAL THROMBOPLASTIN TIME 38.9 Seconds (25.1-36.5)
[2017-01-29 17:05] LABS: TROPONIN I 0.03 ng/mL
[2017-01-29 17:09] LABS: BASO # 0.07 K/mm3 (0.0-2.0); BASO % 0.6 % (0.0-3.0); EOS # 0.2 (0.0-0.7); EOS % 2.1 % (1.5-5.0); GRAN # 9.04 (1.4-6.5); GRAN % 77.4 % (50.0-68.0); HEMATOCRIT 39.6 % (42.0-52.0); LYMPH # 1.7 (1.2-3.4); LYMPH % 14.6 % (22.0-35.0); MEAN CELL VOLUME 89.6 fl (80.0-105.0); MEAN CORPUSCULAR HEMOGLOBIN 29.4 pg (25.0-35.0); MEAN CORPUSCULAR HGB CONC 32.8 g/dl (31.0-37.0); MEAN PLATELET VOLUME 10.2 fl (7.0-11.0); MONO # 0.6 (0.1-0.6); MONO % 5.3 % (1.0-6.0); RED CELL DISTRIBUTION WIDTH 15.7 % (11.5-14.5); WHITE BLOOD COUNT 11.7 10^3/ul (4.5-11.0)
[2017-01-29] MEDS: Insulin Detemir 100 units/ml Vial (Levemir) SC SCH (18:35)
[2017-01-29] MEDS: Insulin Reg-HIGH-Coverage SC SCH (22:44)
--- NOTE | 2017-01-29 23:06 | CARD ---
APPROVED REPORT EKG Measurement Heart [id number] <Conclusion> Biventricular paced rhythm Abnormal ECG
[2017-01-30 01:32] VITALS: RESP 19; O2SAT 93
[2017-01-30 05:51] VITALS: PULSE 70
[2017-01-30 05:53] VITALS: BP 132/81; TEMP 97.3
[2017-01-30] MEDS: Insulin Reg-HIGH-Coverage SC SCH (08:15)
[2017-01-30] MEDS ORDERED: Albuterol-Ipratrop 3 mg / 0.5 (3 ml) UD IH SCH (08:15)
[2017-01-30] MEDS: Insulin Detemir 100 units/ml Vial (Levemir) SC SCH (09:47)
[2017-01-30] MEDS ORDERED: MethylPREDNISolone 40 mg Vial IVP SCH (10:00)
--- NOTE | 2017-01-30 10:20 | CP.PCM.CON ---
History of Present Illness - History of Present Illness History of Present Illness: PGY1 General Surgery Consult Note for Dr. Renae 56 yo M with past medical history of COPD, CAD, CHF, Cardiomyopathy, [place], Afib, & DM presents with cc left lateral leg wound. Patient states he has had the wound for months and accidentally hit it against an object last week. Patient states the wound drained white fluid and has been draining ever since. Patient complains of pain and chills that have been getting worse. Patient states that Dr. Wick recommended an arterial bypass in the past but his heart is not strong enough to undergo the procedure. PMHx: COPD, DM, CHF, neuropathy, [place], CAD, Cardiomyopathy, Afib PSHx: Multiple cardiac caths, angiogram, two stents left leg Social - quit smoking, drinking, and cocaine abuse 25 years ago. Used to smoke 2 ppd and drank daily for 20 years. Allergies - Wild berries & seroquel Review of Systems - Review of Systems All systems: reviewed and no additional remarkable complaints except (as per HPI ) Past Patient History - Infectious Disease Hx of Infectious Diseases: None - Tetanus Immunizations Tetanus Immunization: Unknown - Past Medical History & Family History Past Medical History?: Yes - Past Social History Smoking Status: Former Smoker - CARDIAC Hx Cardia Arrhythmia: Yes (A-Fib) Hx Congestive Heart Failure: Yes Hx Hypercholesterolemia: Yes Hx Hypertension: Yes Hx Internal Defibrillator: Yes Hx Peripheral Edema: Yes Hx Peripheral Vascular Disease: Yes - PULMONARY Hx Bronchitis: Yes Hx Chronic Obstructive Pulmonary Disease (COPD): Yes Hx Emphysema: Yes Hx Pneumonia: Yes Hx Sleep Apnea: Yes - NEUROLOGICAL Hx Dizziness: Yes - HEENT Hx HEENT Problems: Yes (admits using glasses) - RENAL Hx Chronic Kidney Disease: No - ENDOCRINE/METABOLIC Hx Diabetes Mellitus Type 2: Yes - HEMATOLOGICAL/ONCOLOGICAL Hx Blood Disorders: No - INTEGUMENTARY Hx Dermatological Problems: No - MUSCULOSKELETAL/RHEUMATOLOGICAL Hx Falls: Yes - GASTROINTESTINAL Hx Gastroesophageal Reflux: Yes - GENITOURINARY/GYNECOLOGICAL Hx Genitourinary Disorders: No - PSYCHIATRIC Hx Anxiety: Yes Hx Bipolar Disorder: Yes Hx Depression: Yes - SURGICAL HISTORY Hx Surgeries: Yes Hx Cardiac Catheterization: Yes Hx Coronary Stent: Yes Hx Gastric Bypass Surgery: Yes - ANESTHESIA Hx Anesthesia: Yes Hx Anesthesia Reactions: No Hx Malignant Hyperthermia: No Meds Allergies/Adverse Reactions: Allergies Allergy/AdvReac Type Severity Reaction Status Date / Time quetiapine fumarate AdvReac ANAPHYLAXIS Verified 01/21/17 15:37 [From Seroquel] wild berries Allergy Intermediate RASH Uncoded 12/05/16 08:32 - Medications Medications: Current Medications Albuterol/Ipratropium (Duoneb 3 Mg/0.5 Mg (3 Ml) Ud) 3 ml IH TIDRESP [facility] Last Admin: 01/30/17 08:30 Dose: 3 ml Furosemide (Lasix) 40 mg IVP DAILY [facility] Last Admin: 01/30/17 09:45 Dose: 40 mg Gabapentin (Neurontin) 300 mg PO HS [facility] PRN Reason: Protocol Last Admin: 01/29/17 23:05 Dose: 300 mg Glimepiride (Amaryl) 4 mg PO DAILY [facility] Last Admin: 01/30/17 09:45 Dose: 4 mg Insulin Detemir (Levemir) 20 unit SC BID [facility] Last Admin: 01/30/17 09:47 Dose: 20 unit Insulin Human Regular (Humulin R High) 0 units SC [facility] PRN Reason: Protocol Last Admin: 01/30/17 08:15 Dose: Not Given Lisinopril (Zestril) 2.5 mg PO DAILY [facility] Last Admin: 01/30/17 09:48 Dose: 2.5 mg Lorazepam (Ativan) 1 mg PO BID PRN; Protocol PRN Reason: Anxiety Last Admin: 01/30/17 00:07 Dose: 1 mg Metformin HCl (Glucophage) 1,000 mg PO BID [facility] Last Admin: 01/30/17 09:45 Dose: 1,000 mg Methylprednisolone (Solu-Medrol) 40 mg IVP DAILY [facility] Last Admin: 01/30/17 09:47 Dose: 40 mg Trazodone HCl (Desyrel) 150 mg PO HS [facility] Last Admin: 01/29/17 23:05 Dose: 150 mg Physical Exam - Constitutional Appears: Well, No Acute Distress - Head Exam Head Exam: ATRAUMATIC, NORMAL INSPECTION, NORMOCEPHALIC - Eye Exam Eye Exam: EOMI, Normal appearance - ENT Exam ENT Exam: Mucous Membranes Moist, Normal Exam - Neck Exam Neck exam: Positive for: Normal Inspection - Respiratory Exam Respiratory Exam: NORMAL BREATHING PATTERN. absent: Accessory Muscle Use - Cardiovascular Exam Cardiovascular Exam: REGULAR RHYTHM - GI/Abdominal Exam GI & Abdominal Exam: Normal Bowel Sounds, Soft. absent: Tenderness - Extremities Exam Extremities exam: Positive for: pedal edema, tenderness. Negative for: pedal pulses present Additional comments: 1x1 cm punched out ulcer with necrotic eschar & surrounding erythema noted on the left lateral lower extremity. - Back Exam Back exam: NORMAL INSPECTION - Neurological Exam Neurological exam: Oriented x3 - Psychiatric Exam Psychiatric exam: Normal Affect, Normal Mood - Skin Skin Exam: Dry, Warm Results - Vital Signs Recent Vital Signs: Last Vital Signs Temp 97.3 F L 01/30/17 05:52 Pulse 70 01/30/17 09:48 Resp 19 01/30/17 05:52 BP 132/81 01/30/17 09:48 Pulse Ox 93 L 01/30/17 05:52 - Labs Result Diagrams: 01/29/17 17:00 01/29/17 16:30 Labs: Laboratory Results - last 24 hr 01/29/17 01/30/17 18:34 07:41 POC Glucose (mg/dL) 158 H 132 H Assessment & Plan - Assessment and Plan (Free Text) Assessment: 56 y/o M with left lateral lower extremity traumatic ulcer vs. venous ulcer vs arterial ulcer Plan: - wound culture - Lower extremity Doppler - TREVON of lower extremities - Elevate leg - ABX - Peroxide to clean wound then topical Bactroban - wrap left leg with aust[place] bandage Case discussed Dr. Oc Landa
--- NOTE | 2017-01-30 17:54 | CON ---
DATE: CONSULT SERVICE: Cardiology. REASON FOR THE CONSULTATION: Shortness of breath, nonischemic cardiomyopathy, CAD, COPD, morbid obesity, status post AICD, and history of radiofrequency ablation. BRIEF CLINICAL HISTORY: A 56-year-old obese male with past medical history significant for chronic atrial fibrillation status post radiofrequency ablation, recently vacation. He was not taking any medication again after being discharged because he said he cannot afford it. He was in [place] with his friend with short of breath, so he tried to go to the hospital in [place], but it was 50 miles away, so he decided to come to the [facility] Denies any chest pain now, but complained of shortness of breath and the leg swelling. PAST MEDICAL HISTORY: Significant for obesity, history of cardiac catheter 2 to 3 times, nonobstructive coronary artery disease, history of cardiomyopathy, history of alcohol abuse, history of tobacco abuse in the past, and history of atrial fibrillation paroxysmal status post radiofrequency ablation, status post AICD at [facility] by Dr. Bonilla. PAST SURGICAL HISTORY: Significant for gastric bypass, history of thrombectomy, history of AICD, history of catheterization twice at least with nonobstructive coronary artery disease. PREVIOUS CARDIAC WORKUP: As follows. The patient had recently MUGA scan done that showed ejection fraction 43%, normal RV compared to the previous, improvement in LV function noted. The patient had cardiac catheterization 2 to 3 times in the past, at least twice in the [facility] last one 10/2014 with normal coronaries with preserved LV function. EDP was in the range of 30. Medical treatment recommended. History of atrial fibrillation, history of failed CORA cardioversion status post AICD, status post radiofrequency ablation. Last echo in [place] 08/15/2016 showed mildly dilated LV function with significantly decreased ejection fraction 25%, moderately dilated RV, RV function moderately decreased, date is 08/09/2016. Most recently, MUGA scan done that shows ejection fraction to be 43%. CURRENT MEDICATIONS: The patient is supposed to take at home when he is discharged; Coumadin 5 mg, metformin 1 mg, lisinopril 2.5, lorazepam, verapamil 40 three times a day, but the patient is not taking well verapamil and was not taking Lasix. REVIEW OF SYSTEMS: As per HPI. PHYSICAL EXAMINATION: VITAL SIGNS: Temperature is afebrile, heart rate is 70 and blood pressure 132/81. HEENT: PERRLA. Extraocular muscles intact. NECK: Supple. No carotid bruits or thyromegaly. CHEST: Clear to auscultation. HEART: S1 and S2 regular. ABDOMEN: Soft. EXTREMITIES: Clubbing and cyanosis negative. LABORATORY DATA: Blood workup as follows. WBC 11.7, hemoglobin 13, hematocrit 39.6, and platelet count 206. Chemistry shows sodium 140, potassium 4.5, chloride 105, carbon dioxide 27, anion gap of 13, BUN 17, and creatinine 0.8. INR 4.13, the patient has supratherapeutic INR. ASSESSMENT: Noncompliance with medications, decompensating congestive heart failure, [id number] systolic dysfunction, nonischemic cardiomyopathy, morbid obesity, chronic obstructive pulmonary disease, obstructive sleep apnea, history of paroxysmal atrial fibrillation status post radiofrequency ablation, and history of automatic implantable cardioverter-defibrillator. RECOMMENDATIONS: Continue diuretics. Continue verapamil. The patient is noncompliant. History of active tobacco abuse, history of alcohol abuse in the past. Hold Coumadin . We will start Coreg as well as low dose beta-rahat. The patient is not taking verapamil due to it is expensive. We will repeat PT/INR in the morning. Tia Rajan MD
--- NOTE | 2017-01-30 23:43 | HP ---
CHIEF COMPLAINT AND HISTORY OF PRESENT ILLNESS: This is a 56-year-old male, who is coming into hospital with a past medical history of coronary artery disease, peripheral arterial disease, cardiomyopathy, atrial fibrillation with AICD, nonadherence to his treatment regimen with complaints of chest pain and shortness of breath. He said that his chest pain has started again along with shortness of breath, which is more significant. He states he is not able to get his medication because he finds it too expensive and he lost his Medicaid. The patient also has been complaining of left-sided pain. He said he has an ulcer in the lateral part of the left leg and he had some discharge a few days ago that has improved. He was in the [facility] and started having these symptoms, they came back to [place] for further evaluation. He denies any dysuria or frequency. No headaches or dizziness. No abdominal pain. No weakness in the arms or the legs. REVIEW OF SYSTEMS: He said the pain was about 6-7/10, is non-radiating, it was mostly substernal. No associated nausea or vomiting. All other review of symptoms are within normal limits except as mentioned. ALLERGIES: TO QUETIAPINE AND BERRIES. CURRENT MEDICATIONS: Reviewed from the F. PAST MEDICAL HISTORY: 1. COPD. 2. CHF secondary to systolic dysfunction. 3. Diabetes type 2. 4. Hypertension. 5. Peripheral arterial disease. 6. Atrial fibrillation, on Coumadin. 7. Defibrillator. 8. Gastric bypass. 9. Morbid obesity. PAST SURGICAL HISTORY: 1. Gastric bypass. 2. Left leg thrombosis with thrombectomy. SOCIAL HISTORY: He is a former smoker, quit more than 25 years ago. He has used drugs like cocaine in the past. He also quit drinking about 25 years ago. He lives alone. He is a . FAMILY HISTORY: Noncontributory. PHYSICAL EXAMINATION: VITAL SIGNS: He has a temperature of 97.3, pulse of 70, blood pressure is 132/81, respirations 19, O2 saturation 93%, height is 5 feet 8 inches, weight is 272 pounds, and BMI is 41. GENERAL: The patient lying in bed, uncomfortable, and in no acute distress. HEENT: Atraumatic and normocephalic. Anicteric sclerae. Moist mucosa. [place] conjunctivae. No oral lesions. NECK: No JVD, anterior and posterior adenopathy, thyromegaly, or bruits. CARDIOVASCULAR: S1 and S2 regular. No murmur, rubs, or gallop. LUNGS: Clear to auscultation bilaterally. No wheezes, rales, or rhonchi. ABDOMEN: Bowel sounds are positive. Soft, nontender and nondistended. No hepatosplenomegaly. No rebound and no guarding EXTREMITIES: No cyanosis, clubbing, or edema. NEUROLOGIC: No facial asymmetry. Tongue is midline. No uvula deviation. Power is 5/5 upper extremity and lower extremity. Sensation intact in upper extremity and lower extremity. PSYCHIATRIC: He is awake, alert and oriented x3. No anxiety or depression. He has normal affect. GENITOURINARY: No CVA tenderness. VASCULAR: 2+ pulses in the carotid pulses and pedal pulses. SKIN: No erythema or nodules SPINE: Shows normal curvature. EXTREMITIES: No cyanosis and clubbing, no edema. In the left leg, there is a 2 cm ulcer, stage II with no erythema, no exudate. He has trace pulses bilaterally. LABORATORY DATA: White count of 11.7, hemoglobin 13, and platelet count is 206. INR is 4.1. Chemistry shows a creatinine of 0.8. He has a toxicology screen that shows digoxin is less than 4. His EKG shows biventricular paced rhythm. His chest x-ray done shows CHF with moderate right-sided pleural effusion. ASSESSMENT: 1. Chest pain, resolved. 2. Acute chronic obstructive pulmonary disease. 3. Congestive heart failure secondary to systolic dysfunction, acute. 4. Diabetes type 2. 5. Hypertension. 6. Peripheral arterial disease. 7. Atrial fibrillation, on Coumadin. 8. Automatic implantable cardioverter-defibrillator. 9. Defibrillator. 10. Gastric bypass. 11. Morbid obesity with a body mass index of 41. 12. Status post 2 stents in the left leg. PLAN: The patient is going to be admitted to the hospital. I did ask Dr. Rajan to evaluate the patient. He did see the patient and felt that he has decompensated CHF that is acute on chronic secondary to systolic dysfunction. He has nonischemic cardiomyopathy. The patient is also going to be seen by Dr. Godinez. I am concerned about the patient's wound. I will get Dr. Renae to evaluate the patient. The patient may go to transitional care. He has a history of stent in his legs and he has had a previous evaluation by Vascular Surgery. He is not deemed a surgical candidate for bypass. The patient's Coumadin has been placed on hold. I will continue his albuterol. He is going to be on his trazodone to help him sleep and it is for his anxiety. He is also going to be on nebulizer treatments. He is going to be on Neurontin for his neuropathy. He is on Levemir for his diabetes. He is also on lisinopril for his CHF. If he gets transfer to the Transitional Care Unit, he will continued to be followed there by the consultants. Axel Villagomez MD
== END 2017-01-30 11:32 ==
LOC: ED 14:04 → ERH 18:01 → 2RNO 23:32
PROVIDERS: ADMIT Internal Medicine Nephrology; ATTEND Internal Medicine Nephrology
DX: I11.0 Hypertensive heart disease with heart failure (principal); I50.23 Acute on chronic systolic (congestive) heart failure; I48.2 Chronic atrial fibrillation; I42.9 Cardiomyopathy, unspecified; I25.10 Atherosclerotic heart disease of native coronary artery without angina pectoris; E11.51 Type 2 diabetes mellitus with diabetic peripheral angiopathy without gangrene; E66.01 Morbid (severe) obesity due to excess calories; Z68.41 Body mass index [BMI] 40.0-44.9, adult; E11.40 Type 2 diabetes mellitus with diabetic neuropathy, unspecified; E78.00 Pure hypercholesterolemia, unspecified; K21.9 Gastro-esophageal reflux disease without esophagitis; Z91.14 Patient's other noncompliance with medication regimen; Z79.01 Long term (current) use of anticoagulants; Z95.5 Presence of coronary angioplasty implant and graft; Z95.810 Presence of automatic (implantable) cardiac defibrillator; Z98.84 Bariatric surgery status; Z87.891 Personal history of nicotine dependence
CPT/HCPCS: 71010; 80053; 80162; 82550; 82948; 83880; 84484; 85025; 85610; 85730; 93005; 94640; 96372; 96374; 99285; G0378; J1940; J2920

== ENCOUNTER 2017-01-30 11:35 | Inpatient (IN) | payer MEDICARE, OTHER ==
[2017-01-29 14:05] VITALS: PULSE 74
[2017-01-30] MEDS ORDERED: Albuterol-Ipratrop 3 mg / 0.5 (3 ml) UD IH SCH (14:00)
[2017-01-30 14:02] VITALS: BMI 41.3
[2017-01-30] MEDS: Oxycodone/Acetaminophen 10/325 mg Tab PO PRN (17:14)
[2017-01-30] MEDS: Insulin Detemir 100 units/ml Vial (Levemir) SC SCH (22:01)
[2017-01-30] MEDS ORDERED: Albuterol 0.083% Inhal Sol (2.5 mg/3 mL) UD IH PRN (22:11)
--- NOTE | 2017-01-31 01:11 | CON ---
PULMONARY CONSULTATION DATE: 01/30/2017 REFERRING PHYSICIAN: Axel Villagomez MD REASON FOR CONSULTATION: Obstructive sleep apnea syndrome, chronic lung disease, cardiomyopathy, pulmonary hypertension, and peripheral vascular disease. HISTORY OF PRESENT ILLNESS: This is a 56-year-old gentleman well known to me from previous admissions, not very compliant with the followup medications who comes in with shortness of breath and chest pain, also has a chronic leg pains, has multiple issues including cardiomyopathy, coronary artery disease, atrial fibrillation, history of ablation therapy, AICD, pulmonary hypertension, sleep apnea syndrome, chronic obstructive lung disease, diabetes, hypertension, recurrent thromboembolic disease, recurrent thrombectomy especially from the left lower extremity, had peripheral vascular disease, has a nonhealing ulcer of the left lower extremity, and presently admitted in TCU for continue care. The patient was seen by Surgery. Discussion is ongoing for possible bypass surgery. He has known sleep apnea syndrome, but noncompliant with the CPAP and BiPAP, and wants to get handheld inhaler. At present, there is no chest pain. No nausea. No vomiting. Has a bilateral leg swelling and nonhealing ulcer on the left leg. PAST MEDICAL HISTORY: As per history of present illness. ALLERGIES: QUETIAPINE AND BERRIES. SOCIAL HISTORY: Ex-smoker and history of alcohol abuse in the past. FAMILY HISTORY: No significant cardiopulmonary disease reported. MEDICATIONS: He is on glimepiride 4 mg, lorazepam 1 mg twice a day p.r.n., trazodone 150 mg at bedtime, DuoNeb q.8 hours, metformin 1000 mg twice a day, Lasix 40 mg daily, Levemir 20 units twice a day, gabapentin 300 mg at bedtime, Percocet 10/325 mg one tab q.6 hours p.r.n., Solu-Medrol 40 mg IV daily, and Zestril 2.5 mg daily. REVIEW OF SYSTEMS: No headache. No rhinitis. Has cough and shortness of breath. At present, no chest pain. No nausea. No abdominal pain. No dysuria. Has a leg swelling and nonhealing ulcer of the left leg with some erythema. PHYSICAL EXAMINATION: GENERAL: Lying in the reclining chair, in no acute distress. VITAL SIGNS: Temp is 98, heart rate is 70, respiratory rate is 20, blood pressure is 132/81, and pulse ox is 93% on nasal cannula. HEENT: Moist mucous membranes. Crowded airway. Mallampati score is IV. NECK: Supple. No JVD. HEART: S1 and S2. LUNGS: Has a fair airflow with few rhonchi. ABDOMEN: Soft and nontender. No organomegaly. EXTREMITIES: Does have a edema of the both lower extremities. Left lower extremity has a nonhealing ulcer, erythema, and tender to touch. LABORATORY DATA: Shows hemoglobin 13.0, hematocrit 39.6, WBC 11.7, and platelets 206. INR is 4.13. Sodium 140, potassium 4.5, chloride 105, bicarbonate 27, BUN 17, creatinine 0.8, glucose 197, calcium 9.2, AST 23, ALT 29, alkaline phosphatase 76, albumin is 3.9, and proBNP 2860. TSH 2.41. Drug screen has been negative. IMPRESSION AND PLAN: Cardiomyopathy, atrial fibrillation, history of ablation therapy, automatic implantable cardioverter-defibrillator, pulmonary hypertension, chronic obstructive lung disease, obstructive sleep apnea syndrome, diabetes, hypertension, history of thromboembolic disease, severe peripheral vascular disease, sleep apnea syndrome, and noncompliant with the bilevel positive airway pressure. From pulmonary point of view, his lung function is optimized if any surgical intervention is needed. We will suggest getting CAT scan of the lower extremity to evaluate the muscle and subcutaneous tissue. The patient has already seen by Surgery. We will add p.rryan Gardner. Followup INR. The patient refused to use continuous positive airway pressure/bilevel positive airway pressure. Thank you and we will follow with you. Tia Godinez MD
[2017-01-31] MEDS: Insulin Reg-MEDIUM-Coverage SC SCH ×4 (07:04→22:21)
--- NOTE | 2017-01-31 07:12 | PN ---
SUBJECTIVE: The patient is a 56-year-old male who came into the hospital because of shortness of breath. He was transferred to the transitional care unit for rehab. The patient was seen by Dr. Rajan and Dr. Godinez, Cardiology and Pulmonary. They will continue to follow the initial H and P reviewed and I agree with. The patient has no complaints of any headaches or dizziness. He does have complaints of left-sided pain. He does have peripheral arterial disease and has a small ulcer in the lateral part of the left side. He was seen by Surgery and wound care was initiated. He is currently comfortable and using pain medications. PHYSICAL EXAMINATION: VITAL SIGNS: Temperature is 98.6, pulse of 68, respirations are 12. GENERAL: The patient is lying in bed, flat, comfortable. HEENT: No oral lesion. Anicteric sclerae. Moist mucosa. NECK: No JVD, adenopathy, or thyromegaly. CARDIOVASCULAR: S1 and S2, regular. No murmurs, rubs, or gallops. LUNGS: Clear to auscultation bilaterally. No wheeze, rales, or rhonchi. ABDOMEN: Bowel sounds are positive, soft, nontender and nondistended. EXTREMITIES: No cyanosis, clubbing or edema. ASSESSMENT: 1. Acute chronic obstructive pulmonary disease exacerbation. 2. Acute congestive heart failure secondary to systolic dysfunction. 3. Diabetes type 2. 4. Hypertension. 5. Peripheral arterial disease. 6. Atrial fibrillation, on Coumadin. 7. Automatic implantable cardioverter/defibrillator. 8. Gastric bypass. 9. Morbid obesity with a body mass index of 41. 10. Nonadherence. 11. Dyslipidemia. PLAN: The patient is currently on the transitional care unit. He will continue there for rehab and symptom control. He is on glimepiride for his diabetes. He is going to continue with trazodone for his anxiety. The patient is receiving nebulizer treatments three times a day. He is on metformin for his diabetes. He is on Lasix daily. The patient is on Levemir for his diabetes as well. He is on steroids. He is going to continue to be followed by Dr. Renae for his ulcer. He will have high LDL and will be placed on statin. He will be on a diabetic diet. Axel Villagomez MD
[2017-01-31] MEDS: Albuterol-Ipratrop 3 mg / 0.5 (3 ml) UD IH SCH (07:45)
[2017-01-31] MEDS ORDERED: MethylPREDNISolone 40 mg Vial IVP SCH (08:00)
[2017-01-31] MEDS: Potassium Chloride 20 mEq ER Tab PO SCH (08:58)
[2017-01-31] MEDS: Insulin Detemir 100 units/ml Vial (Levemir) SC SCH ×2 (10:03→22:20)
[2017-01-31] MEDS: MethylPREDNISolone 40 mg Vial IVP SCH (10:04)
--- NOTE | 2017-01-31 10:37 | CP.PCM.PN ---
Subjective - Date & Time of Evaluation Date of Evaluation: 01/31/17 Time of Evaluation: 10:33 - Subjective Subjective: PGY1 General Surgery Progress Note for Dr. Renae Patient seen and examined at bedside this morning. Patient awake and sitting in chair next to bed. Patient states his left leg is hurting him a lot. He states he has been able to get up and walk around but the pain has been getting worse. He denies any other complaints at this time. Denies fevers, chills, nausea, vomiting, shortness of breath or chest pain. Objective - Vital Signs/Intake and Output Vital Signs (last 24 hours): Temp Pulse Resp BP Pulse Ox 60 116/65 01/30/17 14:19 01/31/17 10:03 Intake and Output: 01/31/17 01/31/17 06:59 18:59 Intake Total 420 Balance 420 - Medications Medications: Current Medications Albuterol Sulfate (Albuterol 0.083% Inhal Lynn (2.5 Mg/3 Ml) Ud) 2.5 mg IH [id number] PRN PRN Reason: Wheezing Albuterol/Ipratropium (Duoneb 3 Mg/0.5 Mg (3 Ml) Ud) 3 ml IH RTID [facility] PRN Reason: Protocol Last Admin: 01/31/17 07:45 Dose: 3 ml Atorvastatin Calcium (Lipitor) 40 mg PO DIN [facility] Furosemide (Lasix) 40 mg PO BID [facility] Last Admin: 01/31/17 10:03 Dose: 40 mg Gabapentin (Neurontin) 300 mg PO HS [facility] PRN Reason: Protocol Last Admin: 01/30/17 22:01 Dose: 300 mg Glimepiride (Amaryl) 4 mg PO 0800 [facility] PRN Reason: Protocol Last Admin: 01/31/17 10:02 Dose: 4 mg Insulin Detemir (Levemir) 20 unit SC 1000,2200 [facility] PRN Reason: Protocol Last Admin: 01/31/17 10:03 Dose: 20 unit Insulin Human Regular (Humulin R Med) 0 units SC ACHS [facility] PRN Reason: Protocol Last Admin: 01/31/17 07:04 Dose: 3 units Lisinopril (Zestril) 2.5 mg PO DAILY [facility] PRN Reason: Protocol Last Admin: 01/31/17 10:04 Dose: 2.5 mg Lorazepam (Ativan) 1 mg PO BID PRN; Protocol PRN Reason: Anxiety Last Admin: 01/30/17 22:06 Dose: 1 mg Metformin HCl (Glucophage) 1,000 mg PO 0730,1700 [facility] PRN Reason: Protocol Last Admin: 01/31/17 10:03 Dose: 1,000 mg Methylprednisolone (Solu-Medrol) 20 mg IVP 0800 [facility] PRN Reason: Protocol Last Admin: 01/31/17 10:04 Dose: 20 mg Mupirocin (Bactroban Ointment) 0 gm TOP BID [facility] Last Admin: 01/31/17 10:02 Dose: 1 applic Oxycodone/Acetaminophen (Percocet 10/325 Mg Tab) 1 tab PO Q6H PRN PRN Reason: Pain, severe (8-10) Last Admin: 01/30/17 17:14 Dose: 1 tab Trazodone HCl (Desyrel) 150 mg PO HS [facility] PRN Reason: Protocol Last Admin: 01/30/17 22:00 Dose: 150 mg Warfarin Sodium (Coumadin) 5 mg PO 1800 [facility] PRN Reason: Protocol - Constitutional Appears: Non-toxic, No Acute Distress, Other (obese) - Head Exam Head Exam: ATRAUMATIC, NORMOCEPHALIC - Eye Exam Eye Exam: EOMI, Normal appearance. absent: Scleral icterus - ENT Exam ENT Exam: Mucous Membranes Moist - Respiratory Exam Respiratory Exam: NORMAL BREATHING PATTERN. absent: Accessory Muscle Use, Respiratory Distress - Cardiovascular Exam Cardiovascular Exam: REGULAR RHYTHM - Extremities Exam Extremities Exam: Pedal Edema, Tenderness. absent: Calf Tenderness Additional comments: 1x1 cm punched out ulcer with necrotic eschar & surrounding erythema noted on the left lateral lower extremity. No change in appearance from yesterday. - Neurological Exam Neurological Exam: Alert, Awake, Oriented x3 - Psychiatric Exam Psychiatric exam: Normal Affect, Normal Mood - Skin Skin Exam: Dry, Warm Assessment and Plan - Assessment and Plan (Free Text) Assessment: 56 y/o M with left lateral lower extremity traumatic ulcer vs. venous ulcer vs arterial ulcer Plan: - f/u wound culture - f/u lower extremity Doppler today - f/u TREVON of lower extremities today - Elevate leg - ABX - Peroxide to clean wound then topical Bactroban daily - wrap left leg with austin bandage for compression Case discussed Dr. Oc Early Cordell PGY1
[2017-01-31] MEDS: Oxycodone/Acetaminophen 10/325 mg Tab PO PRN ×2 (14:36→20:40)
[2017-01-31] MEDS: Cilostazol 100 mg Tab UD PO SCH (17:49)
[2017-02-01] MEDS: Insulin Reg-MEDIUM-Coverage SC SCH ×4 (06:55→21:54)
[2017-02-01 07:11] LABS: HEMATOCRIT 39.9 % (42.0-52.0); MEAN CELL VOLUME 89.1 fl (80.0-105.0); MEAN CORPUSCULAR HEMOGLOBIN 28.6 pg (25.0-35.0); MEAN CORPUSCULAR HGB CONC 32.1 g/dl (31.0-37.0); MEAN PLATELET VOLUME 10.3 fl (7.0-11.0); RED CELL DISTRIBUTION WIDTH 15.3 % (11.5-14.5); WHITE BLOOD COUNT 13.3 10^3/ul (4.5-11.0)
[2017-02-01 07:22] LABS: INR 1.61 (0.93-1.08)
[2017-02-01 07:23] LABS: ALB/GLOB RATIO 1.4 (1.1-1.8); ALKALINE PHOSPHATASE 61 U/L (38-126); ALT/SGPT 25 U/L (7-56); AST/SGOT 22 U/L (17-59); BILIRUBIN,TOTAL 0.8 mg/dL (0.2-1.3); BLOOD UREA NITROGEN 25 mg/dL (7-21); CALCIUM 9.5 mg/dL (8.4-10.5); CARBON DIOXIDE 30 mmol/L (21-33); CHLORIDE 99 mmol/L (98-107); GFR AFRICAN-AMERICAN > 60; GLUCOSE,RANDOM 120 mg/dL (70-110); POTASSIUM 4.5 mmol/L (3.6-5.0); SODIUM 137 mmol/L (132-148); TOTAL PROTEIN 6.8 g/dL (5.8-8.3)
[2017-02-01] MEDS: Albuterol-Ipratrop 3 mg / 0.5 (3 ml) UD IH SCH ×2 (07:43→19:48)
[2017-02-01] MEDS: Potassium Chloride 20 mEq ER Tab PO SCH (08:20)
[2017-02-01] MEDS: Cilostazol 100 mg Tab UD PO SCH ×2 (10:31→19:22)
[2017-02-01] MEDS: MethylPREDNISolone 40 mg Vial IVP SCH (10:31)
[2017-02-01] MEDS: Insulin Detemir 100 units/ml Vial (Levemir) SC SCH ×2 (11:10→21:34)
--- NOTE | 2017-02-01 11:38 | PN ---
DATE: 01/31/2017 PULMONARY PROGRESS NOTE REFERRING PHYSICIAN: Dr. Axel Villagomez SUBJECTIVE: He is lying in the reclining chair. Night was unremarkable. Refused to use CPAP/BiPAP. No headache. Got short of breath with exertion. No chest pain. No abdominal pain. He has bilateral leg swelling with nonhealing ulcer on the left lower extremity. PHYSICAL EXAMINATION GENERAL: In no acute distress. VITAL SIGNS: Temperature is 98, heart rate is 60, respiratory rate is 20, blood pressure is 116/65. HEENT: Moist mucous membranes. Crowded airway. Mallampati score is IV. NECK: Supple. No JVD. LUNGS: Has a fair airflow with few rhonchi. HEART: S1, S2. ABDOMEN: Soft and nontender. No organomegaly. EXTREMITIES: Does have edema, both lower extremities. Left lower extremity, nonhealing ulcer. NEUROLOGIC: Awake, alert, follows simple commands. MEDICATIONS: He is on albuterol, Atrovent nebulizer every 6 hours p.r.n., Amaryl 4 mg daily, Ativan 1 mg twice a day p.r.n., Coumadin 5 mg will be given, trazodone 150 mg at bedtime, DuoNeb every 8 hours around the clock, metformin 1000 mg twice a day, Lasix 40 mg twice a day, Levemir 20 units twice a day, Lipitor 40 mg daily, gabapentin 300 mg at bedtime, Percocet 10/325 one tab every 6 hours p.r.n., Solu-Medrol 20 mg daily, Zestril 2.5 mg daily. LABORATORY DATA: Reviewed and noted. No new lab is available since yesterday. IMPRESSION AND PLAN: Cardiomyopathy with atrial fibrillation, history of ablation therapy, history of automatic implantable cardioverter defibrillator placement, pulmonary hypertension, chronic obstructive lung disease, obstructive sleep apnea syndrome, diabetes, hypertension, history of thromboembolic disease, severe peripheral vascular disease, sleep apnea syndrome, noncompliance with CPAP and BiPAP, nonhealing left lower extremity ulcer. Case discussed with surgical garment fitter. We will suggest adding mg twice a day. Consider platelet inhibitors. He is on anticoagulation though. We will leave that decision for interventional radiology and/or surgery. Fall precautions. Sleep apnea precautions. Continue bronchodilators. We will follow with you. Tia Godinez MD [facility] # [id number]
[2017-02-01] MEDS: Oxycodone/Acetaminophen 10/325 mg Tab PO PRN (13:53)
--- NOTE | 2017-02-01 14:32 | PN ---
DATE: 02/01/2017 LOCATION: The patient is in room 321, bed 1. REASON FOR CONSULTATION: Shortness of breath, nonischemic cardiomyopathy, COPD, morbid obesity, status post AICD, history of radiofrequency ablation for atrial fibrillation. SUBJECTIVE: The patient is sitting in chair comfortably without any chest pain or palpitation. He states his breathing is improving. PHYSICAL EXAMINATION: VITAL SIGNS: Blood pressure 120/73, respirations 20, pulse 71, temperature 97.6. HEENT: Head is normocephalic. Eyes; pupils normal. Conjunctivae normal. NECK: JVP low. Carotid equal. THORAX: AP diameter normal. LUNGS: Diminished breath sounds on the right lower part of the lungs. Otherwise, no significant rales. CARDIOVASCULAR: S1 and S2. ABDOMEN: Protuberant. No organomegaly. EXTREMITIES: 2+ edema bilateral lower legs. LABORATORY DATA: Chest x-ray on medical floor had showed right moderate pleural effusion, very small left pleural effusion. PREVIOUS CARDIAC WORKUP: The patient had recent MUGA scan, which showed ejection fraction 43%, normal RV compared to the previous, improvement in LV function noted. The patient had cardiac catheterization 2 to 3 times in the past at least twice in the [facility], last one was 10/2014 with normal coronary and preserved LV function. EDP was in the range of 30. Medical treatment was recommended. History of atrial fibrillation, failed CORA cardioversion status post AICD insertion, status post radiofrequency ablation for atrial fibrillation. Last echo at [facility] on 08/15/2016 showed mildly dilated LV with significantly decreased LV function with ejection fraction of 25%, moderately dilated RV, RV function also moderately decreased. Most recent MUGA scan showed ejection fraction close to 43%. DIAGNOSES: Noncompliance with medications. The patient was not taking any medicines at home. He states he cannot afford medicine. Decompensated congestive heart failure, acute on chronic left ventricular systolic dysfunction as well as right ventricular systolic dysfunction, nonischemic cardiomyopathy, morbid obesity, chronic obstructive pulmonary disease, obstructive sleep apnea, history of paroxysmal atrial fibrillation, status post radiofrequency ablation, history of automatic implantable cardioverter defibrillator insertion. PLAN: I changed p.o. Lasix to IV Lasix last night to help the pleural effusion and swelling on the legs. The patient is getting Lasix 40 IV b.i.d., also getting Amaryl 4 mg p.o. daily, warfarin 5 mg p.o. daily, DuoNeb hand nebulizer therapy, Glucophage 1000 mg b.i.d., potassium 20 mEq daily, insulin as ordered, Lipitor 40 mg daily, Neurontin 300 mg p.o. at bedtime, Pletal 100 mg b.i.d., Solu-Medrol 20 mg IV daily, lisinopril 2.5 mg daily. Patient's prothrombin time today is 17.9 with INR 1.61. We will repeat SMA-7, PT, INR in the morning and we will follow with you. Tia Cabello MD
--- NOTE | 2017-02-01 16:25 | CP.PCM.PN ---
Subjective - Date & Time of Evaluation Date of Evaluation: 02/01/17 Time of Evaluation: 12:00 - Subjective Subjective: PGY1 General Surgery Progress Note for Dr. Renae Patient seen and examined at bedside this morning. Patient awake and sitting in chair next to bed. Patient reports that he is still experiencing pain in his left leg in the location of his leg ulcer. Patient has no other complaints at this time. He states he has been walking around and is able to bear weight on his leg with no problem. Denies fevers, chills, nausea, vomiting, shortness of breath or chest pain. Objective - Vital Signs/Intake and Output Vital Signs (last 24 hours): Temp Pulse Resp BP Pulse Ox 97.6 F 71 16 142/84 97 02/01/17 14:00 02/01/17 14:00 02/01/17 14:00 02/01/17 14:00 02/01/17 06:00 Intake and Output: 02/01/17 02/01/17 06:59 18:59 Intake Total 240 420 Balance 240 420 - Medications Medications: Current Medications Albuterol Sulfate (Albuterol 0.083% Inhal Lynn (2.5 Mg/3 Ml) Ud) 2.5 mg IH [id number] PRN PRN Reason: Wheezing Albuterol/Ipratropium (Duoneb 3 Mg/0.5 Mg (3 Ml) Ud) 3 ml IH RTID [facility] PRN Reason: Protocol Last Admin: 02/01/17 07:43 Dose: 3 ml Atorvastatin Calcium (Lipitor) 40 mg PO DIN [facility] Last Admin: 01/31/17 17:48 Dose: 40 mg Cilostazol (Pletal) 100 mg PO BID [facility] Last Admin: 02/01/17 10:31 Dose: 100 mg Furosemide (Lasix) 40 mg IV BID [facility] Last Admin: 02/01/17 11:14 Dose: 40 mg Gabapentin (Neurontin) 300 mg PO HS [facility] PRN Reason: Protocol Last Admin: 01/31/17 22:19 Dose: 300 mg Glimepiride (Amaryl) 4 mg PO 0800 [facility] PRN Reason: Protocol Last Admin: 02/01/17 08:20 Dose: 4 mg Insulin Detemir (Levemir) 20 unit SC 1000,2200 [facility] PRN Reason: Protocol Last Admin: 02/01/17 11:10 Dose: 20 unit Insulin Human Regular (Humulin R Med) 0 units SC ACHS [facility] PRN Reason: Protocol Last Admin: 02/01/17 13:34 Dose: 1 units Lisinopril (Zestril) 2.5 mg PO DAILY [facility] PRN Reason: Protocol Last Admin: 02/01/17 10:31 Dose: 2.5 mg Lorazepam (Ativan) 1 mg PO BID PRN; Protocol PRN Reason: Anxiety Last Admin: 01/31/17 22:25 Dose: 1 mg Metformin HCl (Glucophage) 1,000 mg PO 0730,1700 [facility] PRN Reason: Protocol Last Admin: 02/01/17 08:20 Dose: 1,000 mg Methylprednisolone (Solu-Medrol) 20 mg IVP 0800 [facility] PRN Reason: Protocol Last Admin: 02/01/17 10:31 Dose: 20 mg Mupirocin (Bactroban Ointment) 0 gm TOP BID [facility] Last Admin: 02/01/17 10:28 Dose: 1 applic Oxycodone/Acetaminophen (Percocet 10/325 Mg Tab) 1 tab PO Q6H PRN PRN Reason: Pain, severe (8-10) Last Admin: 02/01/17 13:53 Dose: 1 tab Potassium Chloride (K-Dur 20 Meq Er Tab) 20 meq PO 0800 [facility] Last Admin: 02/01/17 08:20 Dose: 20 meq Trazodone HCl (Desyrel) 150 mg PO HS [facility] PRN Reason: Protocol Last Admin: 01/31/17 22:18 Dose: 150 mg Warfarin Sodium (Coumadin) 5 mg PO 1800 [facility] PRN Reason: Protocol - Labs Labs: 02/01/17 06:30 02/01/17 06:30 PT 17.9 SECONDS (9.4-12.5) H 02/01/17 06:30 INR 1.61 (0.93-1.08) H 02/01/17 06:30 - Constitutional Appears: Non-toxic, No Acute Distress - Eye Exam Eye Exam: EOMI, Normal appearance. absent: Scleral icterus - ENT Exam ENT Exam: Mucous Membranes Moist - Respiratory Exam Respiratory Exam: NORMAL BREATHING PATTERN. absent: Accessory Muscle Use, Respiratory Distress - Extremities Exam Extremities Exam: Pedal Edema, Tenderness (in location of left leg ulcer). absent: Calf Tenderness Additional comments: 1x1 cm punched out ulcer with necrotic eschar & surrounding erythema noted on the left lateral lower extremity. No change in appearance from yesterday. Decreased LE edema b/l - Neurological Exam Neurological Exam: Alert, Awake, Oriented x3 - Psychiatric Exam Psychiatric exam: Normal Affect, Normal Mood - Skin Skin Exam: Dry, Warm Assessment and Plan - Assessment and Plan (Free Text) Assessment: 56 y/o M with left lateral lower extremity traumatic ulcer vs. venous ulcer vs arterial ulcer with associated cellulitis Plan: - TREVON of lower extremities performed on 01/04/17 showed resting TREVON's normal: right 1.10 and left 1.15 - may be inaccurate due to calcified vessels. - Elevate leg - ABX - Peroxide to clean wound then topical Bactroban daily - wrap left leg with austin bandage for compression - pt is in staying in transitional care unit for continued rehab - Surgery will follow peripherally Case discussed Dr. Oc Early Cordell PGY1
--- NOTE | 2017-02-01 21:03 | CON ---
DATE: 01/31/2017 LOCATION: Room 321, bed 1. REASON FOR CONSULTATION: Cardiomyopathy, coronary artery disease, chronic obstructive pulmonary disease, morbid obesity, status post AICD insertion, radiofrequency ablation, deconditioning. HISTORY OF PRESENT ILLNESS: A 56-year-old male with past medical history significant for chronic atrial fibrillation status post radiofrequency ablation recently and the patient is very poor of compliance. The patient does not take medications, does not followup with physicians. He says he cannot afford the medicine. The patient is admitted to medical floor because of shortness of breath. The patient was stabilized, now he is admitted to Transitional Care Unit for deconditioning of physical therapy. PAST MEDICAL HISTORY: Positive for cardiac catheterization, we took plus 2 to 3 times, which showed nonobstructive coronary artery disease, history of cardiomyopathy, history of alcohol abuse, history of tobacco abuse in the past, history of atrial fibrillation, paroxysmal status post radiofrequency ablation, status post AICD insertion at [facility] by Dr. Bonilla. PAST SURGICAL HISTORY: Significant for gastric bypass surgery, thrombectomy, AICD insertion, cardiac cath, previous cardiac workup, the patient recently had MUGA scan done that showed ejection fraction of 43%, which showed some improvement in the LV function as compared to previously. The patient had cardiac catheterization 2 to 3 times in the past at least twice at [facility]. One was in October 2014 with normal coronary and preserved LV function. EDP was in the range of 30. Medical treatment was recommended, history of atrial fibrillation, history of frailty, cardioversion status post AICD and status post radiofrequency ablation. Last echo in [place] was in 08/15/2016, which showed mildly dilated LV function with significantly decreased ejection fraction, which was around 25%. Moderately dilated RV. RV function was also moderately decreased. Most recent MUGA scan showed ejection fraction close to 43%. MEDICATIONS: The patient showed a list of medications, which the patient was supposed to take, but was not takin. Coumadin 5 mg daily. 2. Metformin. 3. Lisinopril 2.5. 4. Lorazepam. 5. Verapamil 40 mg 3 times a day. ALLERGIES: THE PATIENT DENIES ANY ALLERGIES. PERSONAL HISTORY: The patient has history of tobacco abuse and alcohol abuse. He stated that he stopped at present. REVIEW OF SYSTEMS: All other systems reviewed, positive mentioned in the history, otherwise negative. PHYSICAL EXAMINATION: VITAL SIGNS: Blood pressure 116/65, respirations 16, pulse 68 and temperature 97. HEENT: Head is normocephalic. Eyes, pupil normal. Conjunctivae slightly pale. NECK: JVP low. Carotids equal. THORAX: AP diameter normal. LUNGS: No significant rales. CARDIOVASCULAR: S1 and S2. ABDOMEN: Protuberant abdomen. No organomegaly. EXTREMITIES: No clubbing, no cyanosis. LABORATORY DATA: WBC 11.7, hemoglobin 13.0, hematocrit 39.6 and platelet 206. Sodium 140, potassium 4.5, BUN 13 and creatinine 0.8. Random sugar 132, 289 and 213. Calcium 9.2. AST and ALT normal. Total CK 61. Troponin 0.03. NT-proBNP 2860. Total protein and albumin normal. Chest x-ray showed moderate right pleural effusion and cardiomegaly. EKG showed paced rhythm. DIAGNOSES: Noncompliant. The patient does not take the medication. Decompensated congestive heart failure, acute on chronic left ventricular systolic dysfunction, non-ischemic cardiomyopathy, morbid obesity, chronic obstructive pulmonary disease, obstructive sleep apnea, history of paroxysmal atrial fibrillation status post radiofrequency ablation, status post AICD insertion. Amaryl 4 mg p.o. daily, Desyrel 150 mg p.o. at bedtime, DuoNeb hand nebulizer therapy, metformin 1000 mg p.o. daily, furosemide 40 mg p.o. b.i.d., Lipitor 40 mg p.o. daily, methylprednisolone 20 mg IV daily, Zestril 2.5 mg p.o. daily. Starting tomorrow, we will change Lasix 40 IV b.i.d., and add K-dur 20 mEq p.o. daily because the patient still has some evidence of congestion, some leg edema and also has pleural effusions. We will repeat PT/INR in the morning, magnesium phosphorus in the morning. We will follow with you closely. Tia Cabello MD
--- NOTE | 2017-02-02 00:52 | PN ---
DATE: 02/01/2017 PULMONARY PROGRESS NOTE REFERRING PHYSICIAN: Dr. Axel Villagomez. SUBJECTIVE: He is out of bed to chair. Night was unremarkable. No headache. No rhinitis. No chest pain. No nausea. No vomiting. Still has leg swelling. Has Juni wraps on the left leg. OBJECTIVE: GENERAL: In no acute distress. VITAL SIGNS: Temperature is 98, heart rate is 78, respiratory rate is 20, blood pressure 115/54, pulse ox 98% on room air. HEENT: Moist mucous membranes. Small oral cavity. Crowded airway. NECK: Supple. No JVD. LUNGS: Has fair airflow. HEART: S1 and S2. ABDOMEN: Obese, soft and nontender. No organomegaly. EXTREMITIES: Does have edema of the lower extremity. Left leg has a known healing ulcers. NEUROLOGIC: Awake, alert. Follow simple commands. LABORATORY DATA: Shows hemoglobin 12.8, hematocrit 39.9. WBC 13.3, platelet count is 200. INR 1.61. Sodium 137, potassium 4.5, chloride 99, bicarbonate is 30. BUN 25 and creatinine 0.9. Glucose 120, calcium 9.5. AST 22. ALT 25. Alkaline phosphatase is 61. Albumin is 4.0. MEDICATIONS: He is on Duoneb q. 6 hours p.r.n., Amaryl 4 mg daily, Ativan 1 mg twice a day p.r.n., Coumadin 5 mg daily, trazodone 150 mg at bedtime, DuoNeb q. 8 hours around the clock, metformin 1000 mg twice a day, insulin coverage, potassium 20 mEq daily, Lasix 40 mg twice a day, Levemir 20 units subcutaneous twice a day, Lipitor 40 mg daily, gabapentin 300 mg at bedtime, Percocet 10/325 one table q. 6 hour p.r.n., Pletal 100 mg twice a day, Solu-Medrol 20 mg daily, Zestril 2.5 mg daily. IMPRESSION AND PLAN: Cardiomyopathy, atrial fibrillation, history of ablation therapy, has automatic implantable cardioverter defibrillator, chronic obstructive lung disease, diabetes, hypertension, recurrent thromboembolic disease, recurring thrombectomy in the past, severe peripheral vascular disease, known healing ulcer on the left leg, obstructive sleep apnea syndrome, does not use CPAP. Pulmonary point of view doing okay. Continue diuretics. Sleep apnea precaution. Avoid sedative, anticoagulation. Pletal was added. Agree with diuresis. Followup labs in the morning. Thank you and we will follow with you. Tia Godinez MD
[2017-02-02] MEDS: Insulin Reg-MEDIUM-Coverage SC SCH ×4 (06:35→22:27)
[2017-02-02 06:46] LABS: INR 1.45 (0.93-1.08)
[2017-02-02 06:56] LABS: BLOOD UREA NITROGEN 27 mg/dL (7-21); CALCIUM 9.6 mg/dL (8.4-10.5); CARBON DIOXIDE 35 mmol/L (21-33); CHLORIDE 97 mmol/L (98-107); GFR AFRICAN-AMERICAN > 60; GLUCOSE,RANDOM 150 mg/dL (70-110); MAGNESIUM 1.7 mg/dL (1.7-2.2); PHOSPHOROUS 5.1 mg/dL (2.5-4.5); SODIUM 140 mmol/L (132-148)
--- NOTE | 2017-02-02 08:53 | PN ---
DATE: 02/02/2017 SUBJECTIVE: The patient denies any chest pain, shortness of breath, or headache. PHYSICAL EXAMINATION: VITAL SIGNS: Temperature is 97.7, pulse is 70, blood pressure is 115/64, and respirations are 18. GENERAL: The patient is lying in bed, flat, comfortable. HEENT: No oral lesion. Anicteric sclerae. Moist mucosa. NECK: No JVD, adenopathy, or thyromegaly. CARDIOVASCULAR: S1 and S2, regular. No murmurs, rubs, or gallops. LUNGS: Clear to auscultation bilaterally. No wheeze, rales, or rhonchi. ABDOMEN: Bowel sounds are positive, soft, nontender and nondistended. EXTREMITIES: No cyanosis, clubbing or edema. LABORATORY DATA: Last INR is 1.6. ASSESSMENT: 1. Chronic obstructive pulmonary disease exacerbation. 2. Acute congestive heart failure secondary to systolic dysfunction. 3. Hypertension. 4. Diabetes type 2. 5. Peripheral arterial disease. 6. Atrial fibrillation, on Coumadin. 7. Automated implantable cardioverter defibrillator. 8. Gastric bypass. 9. Morbid obesity with body mass index of 41. 10. Nonadherence. 11. Dyslipidemia. PLAN: The patient is currently comfortable. He is on Amaryl for his diabetes. He is going to continue with trazodone. I will increase the patient's Coumadin, he is usually on a higher dose than 5 mg, he is subtherapeutic. The patient is followed by Cardiology and Pulmonary. The patient is on Lasix daily. He is going to continue Lipitor for dyslipidemia. The patient has steroids and we tapered. Axel Villagomez MD
[2017-02-02] MEDS: Potassium Chloride 20 mEq ER Tab PO SCH (08:58)
[2017-02-02] MEDS: MethylPREDNISolone 40 mg Vial IVP SCH (09:00)
[2017-02-02] MEDS: Cilostazol 100 mg Tab UD PO SCH ×2 (11:57→17:18)
[2017-02-02] MEDS: Insulin Detemir 100 units/ml Vial (Levemir) SC SCH ×2 (12:26→22:48)
--- NOTE | 2017-02-02 13:08 | PN ---
DATE: 02/02/2017 LOCATION: The patient is in room 321, bed 1. REASON FOR CONSULTATION: Shortness of breath, nonischemic cardiomyopathy, COPD, morbid obesity, status post AICD, history of radiofrequency ablation for atrial fibrillation, congestive heart failure, acute on chronic LV systolic failure. SUBJECTIVE: The patient denies chest pain or palpitation. He still has cough. His shortness of breath is getting better, but he is complaining about the cough. PHYSICAL EXAMINATION VITAL SIGNS: Blood pressure 109/66, respirations 20, pulse 69, and temperature 97.5. HEENT: Head is normocephalic. Eyes, pupils are normal. Conjunctivae normal. Nose and throat normal. NECK: JVP low. Carotids equal. THORAX: AP diameter normal. LUNGS: Diminished breath sounds in the right base. CARDIOVASCULAR: S1 and S2. ABDOMEN: Protuberant. No organomegaly. EXTREMITIES: No clubbing, no cyanosis. Swelling in the legs is decreasing. Previous cardiac workup has been discussed in our initial consult and progress note of 02/01/2017. LABORATORY DATA: Shows sodium 140, potassium 4.0, BUN 27, creatinine 0.9, random sugar 150, calcium 9.6, phosphorous 5.1, and magnesium 1.7. WBC 13.3, hemoglobin 12.8, hematocrit 39.9, and platelet 200. PT/INR already mentioned. DIAGNOSES: Noncompliant patient with medications. The patient was not taking medications at home. The patient had nonischemic cardiomyopathy, decompensated congestive heart failure acute on chronic, pleural effusion, morbidity obesity, chronic obstructive pulmonary disease, sleep apnea, history of paroxysmal atrial fibrillation, status post radiofrequency ablation, history of automated implantable cardioverter defibrillator insertion, peripheral vascular disease, and ulcer on the left leg. PLAN: The patient's prothrombin time today is 16.1 with an INR of 1.45. Warfarin dose is increased to 7 mg starting today. The patient is on Lasix 40 IV b.i.d., potassium 20 mEq p.o. daily, insulin as ordered, atorvastatin 40 daily, gabapentin 300 mg p.o. at bedtime, Solu-Medrol 20 mg IV, and lisinopril 2.5 mg p.o. daily. The patient is also started on Pletal 100 mg b.i.d. We will follow with you. Tia Cabello MD [facility] # [id number]
[2017-02-02] MEDS: Oxycodone/Acetaminophen 10/325 mg Tab PO PRN (17:13)
[2017-02-02] MEDS: Albuterol-Ipratrop 3 mg / 0.5 (3 ml) UD IH SCH (20:38)
--- NOTE | 2017-02-02 21:17 | PN ---
PULMONARY PROGRESS NOTE DATE: 02/02/2017 REFERRING PHYSICIAN: Axel Villagomez MD SUBJECTIVE: He is lying in the reclining chair. Night was unremarkable. Does not use CPAP. Has some cough and phlegm. Did walk with the therapist today. No nausea. No vomiting. No diarrhea. Still has leg swelling. Has Juni wraps on the left lower extremity. OBJECTIVE: GENERAL: In no acute distress. VITAL SIGNS: Temperature is 98, heart rate is 81, respiratory rate is 20, blood pressure 130/60, pulse ox 99% on 2 L nasal cannula. HEENT: Moist mucous membranes. Crowded airway. NECK: Supple. No JVD. LUNGS: Has a few scattered rhonchi, few wheezing. HEART: S1 and S2. ABDOMEN: Soft and nontender. No organomegaly. EXTREMITIES: Does have edema. Left leg has Juni wraps. NEUROLOGIC: Awake and alert. Follow simple commands. MEDICATIONS: He is on albuterol and Atrovent nebulizer q. 6 hours, glimepiride 4 mg daily, Ativan 1 mg daily, Coumadin 5 mg will be given to night, trazodone 150 mg daily, DuoNeb q. 8 hours, metformin is q. 12 hours, insulin coverage, potassium 20 mEq daily, Lasix 40 mg IV twice a day, Levemir 20 units subcutaneous twice a day, Lipitor 40 mg daily, Neurontin 300 mg at bedtime, Percocet 10/325 one tab q. 6 hours p.r.n., Pletal 100 mg twice a day, Solu-Medrol 20 mg daily, and Zestril 2.5 mg daily. LABORATORY DATA: INR 1.45, sodium 140, potassium 4.0, chloride 97, bicarbonate is 35, BUN 27, creatinine 0.9, glucose 150, calcium is 9.6, phosphorus 5.1, and magnesium is 1.7. IMPRESSION AND PLAN: Cardiomyopathy with atrial fibrillation, history of ablation therapy, has automatic implantable cardioverter-defibrillator, chronic obstructive lung disease, diabetes, hypertension, recurrent thromboembolic disease, recurrent thrombectomy in the past, has peripheral vascular disease, nonhealing ulcer on the left leg, obstructive sleep apnea syndrome, and noncompliance with CPAP/BiPAP. Continue anticoagulation and bronchodilator. Add Singulair 10 mg at bedtime. Continue diuretics. Elevate lower extremity. Continue therapy. Thank you and we will follow with you. Tia Godinez MD
[2017-02-03] MEDS: Cilostazol 100 mg Tab UD PO SCH ×2 (05:39→17:24)
[2017-02-03] MEDS: Insulin Reg-MEDIUM-Coverage SC SCH ×4 (06:32→21:11)
[2017-02-03] MEDS: Albuterol-Ipratrop 3 mg / 0.5 (3 ml) UD IH SCH ×2 (07:45→13:50)
[2017-02-03] MEDS: Potassium Chloride 20 mEq ER Tab PO SCH (09:00)
[2017-02-03] MEDS: MethylPREDNISolone 40 mg Vial IVP SCH (10:12)
[2017-02-03] MEDS: Insulin Detemir 100 units/ml Vial (Levemir) SC SCH ×2 (11:22→21:13)
--- NOTE | 2017-02-03 15:12 | PN ---
DATE: 02/03/2017 LOCATION: The patient is in room 321, bed 1. REASON FOR CONSULTATION: Followup shortness of breath, nonischemic cardiomyopathy, [id number] LV systolic dysfunction, CHF, COPD, morbid obesity, status post AICD insertion, and history of radiofrequency ablation for atrial fibrillation. SUBJECTIVE: The patient lying in bed comfortably without chest pain or palpitation. He says his shortness of breath is also improving. PHYSICAL EXAMINATION VITAL SIGNS: Blood pressure 121/72, respirations 20, pulse 77, and temperature 97.9. HEENT: Head is normocephalic. Eyes, pupils normal. Conjunctivae are normal. Nose and throat normal. NECK: JVP low. Carotids equal. THORAX: AP diameter normal. LUNGS: No significant rales. Diminished breath sounds in the right base, which also is showing improvement. CARDIOVASCULAR: S1 and S2. ABDOMEN: Protuberant. No organomegaly. EXTREMITIES: No clubbing, no cyanosis. The patient's swelling in legs is also improving. LABORATORY DATA: WBC 13.3, hemoglobin 12.8, hematocrit 39.9, and platelets 200. Sodium 140, potassium 4.0, BUN 27, creatinine 0.9, random sugar 150, calcium 9.6, and phosphorous 5.1. Total bilirubin 1.7. DIAGNOSIS: Noncompliant patient with medications at home. He was not taking any medication. The patient known case of nonischemic cardiomyopathy, decompensated congestive heart failure, [id number] left ventricular systolic failure, pleural effusion, morbid obesity, chronic obstructive pulmonary disease, sleep apnea, history of paroxysmal atrial fibrillation status post radiofrequency ablation, history of automatic implantable cardioverter-defibrillator insertion, peripheral vascular disease, and ulcer on the left leg. PLAN: The patient's prothrombin time yesterday was 16.1 with INR of 1.45. He has repeat PT/INR in the morning. The patient on warfarin 4 mg p.o. daily, metformin 1000 b.i.d., Amaryl 4 mg daily, DuoNeb hand nebulizer therapy, insulin as ordered, potassium 20 mEq p.o. daily, Lasix 40 IV b.i.d., Lipitor 40 mg p.o. daily, Pletal 100 mg p.o. b.i.d., Singulair 10 mg daily, methylprednisolone 20 mg IV daily, and lisinopril 2.5 mg p.o. daily. We will repeat chest x-ray in the morning to see improvement of the pleural effusion. We will continue to follow with you. Tia Cabello MD
--- NOTE | 2017-02-03 21:48 | PN ---
PULMONARY PROGRESS NOTE DATE: 02/03/2017 REFERRING PHYSICIAN: Axel Villagomez MD SUBJECTIVE: The patient is sitting on the reclining chair, friends are at bedside. Night was unremarkable. Refuse to use CPAP/BiPAP. No headache. No rhinitis. Cough is better. No nausea. No vomiting. No diarrhea. Decreased leg swelling. Still has a left lower extremity wound, which is tender. OBJECTIVE: GENERAL: In no acute distress. VITAL SIGNS: Temperature is 98, heart rate is 77, respiratory rate is 20, blood pressure 121/72, and pulse ox 93% on nasal cannula. HEENT: Moist mucous membranes. Crowded airway. Mallampati score is IV. NECK: Supple. No JVD. LUNGS: Has a fair airflow with few rhonchi. HEART: S1 and S2. ABDOMEN: Soft and nontender. No organomegaly. EXTREMITIES: Decrease edema. Left leg has a wound, which is tender to touch. NEUROLOGIC: Awake and alert. Follow simple commands. MEDICATIONS: Albuterol inhale q. 6 hours p.r.n., glimepiride 4 mg q. 8 hours, Ativan 1 mg twice a day p.r.n., Coumadin 4 mg daily, trazodone 150 mg at bedtime, DuoNeb q. 8 hours round the clock, metformin 1000 mg twice a day, insulin coverage, potassium 20 mEq daily, Lasix 40 mg twice a day, Levemir 20 units subcutaneous twice a day, Lipitor 40 mg daily, gabapentin 300 mg at bedtime, Percocet 100/325 q. 6 hours p.r.n., Pletal 100 mg twice a day, Singulair 10 mg at bedtime, Solu-Medrol 20 mg, and Zestril 2.5 mg daily. LABORATORY DATA: Shows INR today 1.45. IMPRESSION AND PLAN: Cardiomyopathy with atrial fibrillation, history of ablation therapy, has automatic implantable cardioverter-defibrillator, chronic obstructive lung disease, diabetes, hypertension, thromboembolic disease recurrent, history of thrombectomy, peripheral vascular disease, nonhealing left leg ulcer, obstructive sleep apnea syndrome, and noncompliance with CPAP/BiPAP. Continue IV and inhaled bronchodilator. Continue anticoagulation. Continue Pletal. Continue diuretics, fall precautions, and sleep apnea precautions. INR in the morning. Thank you and we will follow with you. Tia Godinez MD [facility] # [id number]
[2017-02-03] MEDS: Oxycodone/Acetaminophen 10/325 mg Tab PO PRN (22:44)
[2017-02-04] MEDS: Cilostazol 100 mg Tab UD PO SCH ×2 (05:32→17:12)
[2017-02-04 06:01] LABS: INR 1.59 (0.93-1.08)
[2017-02-04] MEDS: Insulin Reg-MEDIUM-Coverage SC SCH ×4 (06:51→21:29)
[2017-02-04] MEDS: Albuterol-Ipratrop 3 mg / 0.5 (3 ml) UD IH SCH ×2 (07:33→13:28)
[2017-02-04] MEDS: Potassium Chloride 20 mEq ER Tab PO SCH (08:36)
[2017-02-04] MEDS: MethylPREDNISolone 40 mg Vial IVP SCH (09:30)
[2017-02-04] MEDS: Insulin Detemir 100 units/ml Vial (Levemir) SC SCH ×2 (09:30→21:31)
--- NOTE | 2017-02-04 11:50 | RAD ---
HISTORY: To See improvement of Pleural Effusion. COMPARISON: 01/29/2017 TECHNIQUE: Chest PA and lateral FINDINGS: LUNGS: No active pulmonary disease. PLEURA: No significant pleural effusion identified. No pneumothorax apparent. CARDIOVASCULAR: AICD. No congestive change. Normal heart size. OSSEOUS STRUCTURES: No significant abnormalities. VISUALIZED UPPER ABDOMEN: Normal. OTHER FINDINGS: None. IMPRESSION: No active disease.
--- NOTE | 2017-02-04 13:41 | PN ---
DATE: 02/04/2017 LOCATION: The patient in room 321, bed 1. REASON FOR CONSULTATION: Followup with shortness of breath, nonischemic cardiomyopathy, acute on chronic LV systolic failure, CHF, COPD, morbid obesity, status post AICD insertion, history of radiofrequency ablation for atrial fibrillation, poor compliant patient. SUBJECTIVE: The patient's shortness of breath is improving. He denies chest pain or palpitation. PHYSICAL EXAMINATION: VITAL SIGNS: Blood pressure 130/82, respirations 20, pulse 81, temperature 97.6. HEENT: Head is normocephalic. Eyes, pupils normal. Conjunctivae normal. Nose and throat normal. NECK: JVP low. Carotid equal. THORAX: AP diameter normal. LUNGS: No significant rales. Breath sounds on the lung bases have also improved. CARDIOVASCULAR: S1 and S2. ABDOMEN: Protuberant. No organomegaly. EXTREMITIES: No clubbing, no cyanosis. LABORATORY DATA: Blood sugar 397. Other labs reported on previous progress notes. DIAGNOSES: Noncompliant patient with medication at home, was not taking any medication. The patient known case of nonischemic cardiomyopathy, decompensated congestive heart failure, acute on chronic, left ventricular systolic dysfunction, pleural effusion, morbid obesity, chronic obstructive pulmonary disease, sleep apnea, history of paroxysmal atrial fibrillation, status post radiofrequency ablation, status post AICD insertion, peripheral vascular disease, ulcer on the left leg. PLAN: The patient's prothrombin time 17.6, INR 1.59. The patient is going to have repeat chest x-ray today to see improvement of pleural effusion and CHF. The patient is on Amaryl 4 mg daily, Warfarin 4 mg daily, metformin 1000 mg b.i.d., potassium 20 mEq p.o. daily, furosemide 40 IV b.i.d., Lipitor 40 daily, Neurontin 300 mg p.o. at bedtime, Pletal 100 mg b.i.d., Singulair 10 mg daily, Solu-Medrol 20 mg IV daily, Lisinopril 2.5 mg daily. Tia Cabello MD
[2017-02-04] MEDS: Oxycodone/Acetaminophen 10/325 mg Tab PO PRN ×2 (13:44→22:27)
--- NOTE | 2017-02-04 21:24 | PN ---
PULMONARY PROGRESS NOTE DATE: 02/04/2017 REFERRING PHYSICIAN: Axel Villagomez MD SUBJECTIVE: The patient is lying in the reclining chair. Night was unremarkable. Did not use CPAP. No nausea. No vomiting. No diarrhea. Cough is better. No abdominal pain. Decreased leg swelling. Mildly decreased left leg pain. OBJECTIVE: GENERAL: In no acute distress. VITAL SIGNS: Temperature is 98, heart rate is 92, respiratory rate is 14, blood pressure is 134/68, and pulse ox 95% on room air. HEENT: Moist mucous membranes. Crowded airway. Mallampati score is 4. NECK: Supple. No JVD. LUNGS: Has a fair airflow with few rhonchi. HEART: S1 and S2. ABDOMEN: Soft and nontender. No organomegaly. EXTREMITIES: Decreased edema. Still have left leg nonhealing ulcer. NEUROLOGIC: Awake and alert. Follow simple commands. MEDICATIONS: He is on DuoNeb q.6 hours p.r.n., Amaryl 4 mg daily, Ativan 1 mg twice a day p.r.n., Bactroban ointment to the affected area twice a day, Coumadin 4 mg daily, trazodone 150 mg at bedtime, DuoNeb q.8 hours, metformin 1000 mg twice a day, insulin coverage, potassium 40 mEq twice a day, Levemir 20 units subcutaneously twice a day, Lipitor 40 mg daily, Neurontin 300 mg at bedtime, oxycodone 10/325 one tablet q.6 hours p.r.n., Pletal 100 mg twice a day, Singulair 10 mg daily, Solu-Medrol 20 mg daily, and Zestril 2.5 mg daily. LABORATORY DATA: Reviewed. INR today is 1.59. Blood sugar is 122. Had a chest x-ray done today, which shows no active pulmonary disease reported. IMPRESSION AND PLAN: Cardiomyopathy with atrial fibrillation, history of ablation therapy, has automatic implantable cardioverter-defibrillator, chronic obstructive lung disease, diabetes, hypertension, thromboembolic disease, history of thrombectomy, peripheral vascular disease, nonhealing leg ulcer, obstructive sleep apnea syndrome, and noncompliance with continuous positive airway pressure/bilevel positive airway pressure. Pulmonary point of view is doing okay. Keep head at 45 degrees. P.r.n. bronchodilator. Sleep apnea precaution. Avoid sedation. Continue diuretics. Antibiotics as per Infectious Disease. Anticoagulation. Continue therapy. Thank you and we will follow with you. Tia Godinez MD
[2017-02-05] MEDS: Cilostazol 100 mg Tab UD PO SCH ×2 (05:31→16:57)
[2017-02-05 06:18] LABS: BASO # 0.02 K/mm3 (0.0-2.0); BASO % 0.1 % (0.0-3.0); EOS # 0.1 (0.0-0.7); EOS % 0.4 % (1.5-5.0); GRAN # 13.13 (1.4-6.5); GRAN % 81.9 % (50.0-68.0); HEMATOCRIT 37.2 % (42.0-52.0); LYMPH # 1.7 (1.2-3.4); LYMPH % 10.3 % (22.0-35.0); MEAN CELL VOLUME 87.7 fl (80.0-105.0); MEAN CORPUSCULAR HEMOGLOBIN 28.8 pg (25.0-35.0); MEAN CORPUSCULAR HGB CONC 32.8 g/dl (31.0-37.0); MEAN PLATELET VOLUME 10.4 fl (7.0-11.0); MONO # 1.2 (0.1-0.6); MONO % 7.3 % (1.0-6.0); RED CELL DISTRIBUTION WIDTH 14.6 % (11.5-14.5)
[2017-02-05] MEDS: Insulin Reg-HIGH-Coverage SC SCH ×4 (06:54→21:42)
[2017-02-05 07:02] LABS: BLOOD UREA NITROGEN 36 mg/dL (7-21); CALCIUM 9.5 mg/dL (8.4-10.5); CARBON DIOXIDE 34 mmol/L (21-33); CHLORIDE 95 mmol/L (98-107); GFR AFRICAN-AMERICAN > 60; GLUCOSE,RANDOM 199 mg/dL (70-110); MAGNESIUM 1.6 mg/dL (1.7-2.2); PHOSPHOROUS 4.6 mg/dL (2.5-4.5); POTASSIUM 4.4 mmol/L (3.6-5.0); SODIUM 137 mmol/L (132-148)
[2017-02-05] MEDS: MethylPREDNISolone 40 mg Vial IVP SCH (08:08)
[2017-02-05] MEDS: Potassium Chloride 20 mEq ER Tab PO SCH (08:08)
--- NOTE | 2017-02-05 09:19 | PN ---
DATE: 02/05/2017 SUBJECTIVE: The patient has no complaints of any chest pain. No shortness of breath. No headaches. No dizziness. PHYSICAL EXAMINATION: VITAL SIGNS: Temperature is 97.6, pulse is 70, blood pressure is 162/93, and respirations are 14. GENERAL: The patient is lying in bed, flat, comfortable. HEENT: No oral lesion. Anicteric sclerae. Moist mucosa. NECK: No JVD, adenopathy, or thyromegaly. CARDIOVASCULAR: S1 and S2, regular. No murmurs, rubs, or gallops. LUNGS: Clear to auscultation bilaterally. No wheeze, rales, or rhonchi. ABDOMEN: Bowel sounds are positive, soft, nontender and nondistended. EXTREMITIES: No cyanosis, clubbing or edema. LABORATORY DATA: White count is 16, hemoglobin is 12.2, and creatinine is 1.0. Chest x-ray done shows no active disease. ASSESSMENT: 1. Acute chronic obstructive pulmonary disease exacerbation, improved. 2. Acute congestive heart failure secondary to systolic dysfunction, improved. 3. Hypertension. 4. Diabetes type 2. 5. Peripheral arterial disease. 6. Atrial fibrillation, on Coumadin. 7. Automatic implantable cardioverter-defibrillator. 8. Gastric bypass. 9. Morbid obesity with body mass index of 41. 10. Nonadherent/noncompliant. 11. Dyslipidemia. PLAN: The patient is currently comfortable. He did have an elevated fingerstick yesterday that has improved. He is on his Coumadin. The patient's INR is 1.59 this morning. The patient is not on appropriate dose of his Coumadin is low, I will discontinue the patient's Solu-Medrol. He is going to be on Zestril. He is on his metformin. Axel Villagomez MD
[2017-02-05] MEDS: Insulin Detemir 100 units/ml Vial (Levemir) SC SCH ×2 (10:17→21:43)
--- NOTE | 2017-02-05 21:21 | PN ---
PULMONARY PROGRESS NOTE DATE: 02/05/2017 REFERRING PHYSICIAN: Axel Villagomez MD SUBJECTIVE: He is lying in the reclining chair. Night was unremarkable. No headaches. No rhinitis. Cough is better. Shortness of breath improved. No nausea. No vomiting. No diarrhea. Decreased leg swelling. Still has ulcer of the left lower extremity. PHYSICAL EXAMINATION: GENERAL: In no acute distress. VITAL SIGNS: Temperature is 98, heart rate is 69, respiratory rate is 20, blood pressure is 94/53, and pulse ox 94% on room air. HEENT: Moist mucous membranes. Crowded airway. NECK: Supple. No JVD. LUNGS: Has a fair airflow with few rhonchi. HEART: S1 and S2. ABDOMEN: Soft and nontender. No organomegaly. EXTREMITIES: Decreased edema on the left lower extremity. NEUROLOGIC: Awake and alert. Follow simple commands. MEDICATIONS: He is on DuoNeb q.6 hours p.r.n., glimepiride 4 mg daily, lorazepam 1 mg twice a day p.r.n., Cardizem, which is on hold, Coumadin 9 mg will receive today, trazodone 150 mg daily, metformin 1000 mg twice a day, potassium 20 mEq daily, Levemir 20 units subcutaneously twice a day, Lipitor 40 mg daily, gabapentin 300 mg at bedtime, Percocet 10/325 one table q.6 hours p.r.n., Pletal 100 mg twice a day, Singulair 10 mg daily, and Zestril 2.5 mg daily. LABORATORY DATA: Shows hemoglobin is 12.2, hematocrit is 37.2, WBC is 16.0, and platelet is 213. Sodium 137, potassium 4.4, chloride 95, bicarbonate 34, BUN 36, creatinine 1.0, glucose 197, calcium is 9.5, phosphorus 4.6, and magnesium 1.6. IMPRESSION AND PLAN: Cardiomyopathy with atrial fibrillation, history of ablation therapy, has automatic implantable cardioverter-defibrillator, chronic obstructive lung disease, diabetes, hypertension, history of thromboembolic disease, requiring mechanical thrombectomy, peripheral vascular disease, nonhealing ulcer of the left lower extremity, sleep apnea syndrome, and noncompliance with continuous positive airway pressure/bilevel positive airway pressure. Pulmonary point of view, he is doing okay. Sleep apnea precaution. Avoid sedation, anticoagulation. Keep INR around 2.5. Continue diuretics and inhaled bronchodilator. Elevate lower extremity. Fall precaution. Thank you and we will follow with you. Tia Godinez MD
--- NOTE | 2017-02-05 23:05 | PN ---
DATE: LOCATION: Room 321, bed 1. REASON FOR CONSULTATION: Followup shortness of breath, nausea, ischemic cardiomyopathy, acute on chronic LV systolic failure, congestive heart failure, chronic obstructive pulmonary disease, morbid obesity, status post of AICD insertion, history of radiofrequency ablation for atrial fibrillation, coronary artery disease, and poor compliant patient. SUBJECTIVE: The patient is sitting in chair comfortably. He says his breathing is much better now. Denies chest pain or palpitation. PHYSICAL EXAMINATION VITAL SIGNS: Blood pressure 134/68, respirations 20, pulse is 65, afebrile. HEAD: Normocephalic. EYES: Pupils normal. Conjunctivae normal. Nose and throat normal. NECK: JVP low. Carotids equal. THORAX: AP diameter normal. LUNGS: No rales. CARDIOVASCULAR: S1 and S2. ABDOMEN: Soft and nontender. No organomegaly. Protuberant abdomen. EXTREMITIES: No clubbing, no cyanosis. Nonhealing ulcer on the left lower leg. LABORATORY DATA: WBC 16.0, hemoglobin 12.2, hematocrit 37.2 and platelets 213. Sodium 137, potassium 4.4, BUN 36, creatinine 1.0 and random sugar 197. Chest x-ray clear. ASSESSMENT AND PLAN: Noncompliant patient with his medications at home, was not taking any medicine. Patient known case of nonischemic cardiomyopathy, decompensated congestive heart failure, acute on chronic left ventricular systolic dysfunction, pleural effusion, morbid obesity, chronic obstructive pulmonary disease, sleep apnea, history of paroxysmal atrial fibrillation, status post radiofrequency ablation, status post automatic implantable cardioverter-defibrillator insertion, peripheral vascular disease, ulcer on the left leg. Prothrombin time 17.6. INR 1.59. The patient on albuterol and nebulizer therapy, Amaryl 4 mg p.o. daily, Cardizem 30 mg p.o. q.i.d., warfarin 9 mg p.o. daily, metformin 1000 b.i.d., potassium 30 mEq p.o. daily. The patient on Lasix 40 mg IV daily, but since his chest x-ray is clear, we will change it 40 mg p.o. daily. Insulin as ordered, Lipitor 40 daily, gabapentin 300 mg p.o. at bedtime, Pletal 100 mg p.o. b.i.d., Singulair 10 mg daily, lisinopril 2.5 mg daily. The patient getting physical therapy without any cardiac symptoms. We will continue present therapy. We will follow with you. Tia Cabello MD
[2017-02-05] MEDS: Albuterol-Ipratrop 3 mg / 0.5 (3 ml) UD IH SCH (23:38)
[2017-02-06] MEDS: Insulin Reg-HIGH-Coverage SC SCH ×4 (06:33→22:27)
[2017-02-06] MEDS: Cilostazol 100 mg Tab UD PO SCH ×2 (06:34→17:16)
[2017-02-06] MEDS: Albuterol-Ipratrop 3 mg / 0.5 (3 ml) UD IH SCH ×2 (07:45→13:40)
[2017-02-06] MEDS: Potassium Chloride 20 mEq ER Tab PO SCH (07:49)
[2017-02-06] MEDS: Insulin Detemir 100 units/ml Vial (Levemir) SC SCH ×2 (09:55→22:26)
[2017-02-06] MEDS: Insulin Reg-MEDIUM-Coverage SC SCH (11:53)
[2017-02-06] MEDS: Magnesium Oxide 400 mg Tab UD PO SCH ×2 (11:56→17:16)
--- NOTE | 2017-02-06 14:56 | PN ---
DATE: 02/06/2017 REASON FOR CONSULTATION AND FOLLOWUP: Decompensated congestive heart failure, acute systolic dysfunction. SUBJECTIVE: The patient is secondary to cardiomyopathy,non-ischemic. The patient is sitting in the chair. Denies any chest pain or shortness of breath. OBJECTIVE: GENERAL: Not in apparent distress. VITAL SIGNS: As follows; temperature afebrile, heart rate 78, and blood pressure 109/68. HEENT: PERRLA. Extraocular muscles intact. NECK: Supple. No carotid bruits or thyromegaly. CHEST: Clear to auscultation. HEART: S1 and S2 regular. ABDOMEN: Soft. EXTREMITIES: Clubbing and cyanosis negative. LABORATORY DATA: Blood workup as follows; WBC 16, hemoglobin 12.2, hematocrit 37.2, and platelet count of 213. Chemistry showed sodium 130, potassium 4.0, chloride 95, carbon dioxide 34, , creatinine 1.0. Magnesium is 1.6. IMPRESSION: Acute decompensated congestive heart failure, acute on chronic systolic dysfunction, morbid obesity body mass 41.4 kg/m2, noncompliant with the medication and not taking any medications at home, nonischemic cardiomyopathy, left ventricular dysfunction, pleural effusion, morbid obesity, chronic obstructive pulmonary disease, obstructive sleep apnea, history of paroxysmal atrial fibrillation, status post radiofrequency ablation, status post automatic implantable cardioverter-defibrillator. RECOMMENDATION: Supplement magnesium, continue Coumadin, goal is to keep INR 2-2.5, very noncompliant patient, continue Cardizem, continue Lisinopril and continue diuretics. We will follow with you. Resume mag oxide supplement. We will give [address] Villagomez for providing us the opportunity in taking care of patient.. Tia Rajan MD
[2017-02-06 17:34] VITALS: RESP 15; TEMP 98.5; O2SAT 94
--- NOTE | 2017-02-07 01:33 | PN ---
PULMONARY PROGRESS NOTE DATE: 02/06/2017 REFERRING PHYSICIAN: Axel Villagomez MD SUBJECTIVE: He is sitting on the reclining chair. Night was unremarkable. Did not use BiPAP. With some short of breath this morning with some cough, clear with nebulizer treatment. Presently, there is no cough, no chest pain. No nausea. No vomiting. No diarrhea. Decreased leg swelling. Still have nonhealing ulcer. PHYSICAL EXAMINATION: GENERAL: No acute distress. VITAL SIGNS: Temperature is 98, heart rate 70, respiratory rate 16, blood pressure is 100/61 and pulse oximetry 94% on nasal cannula. HEENT: Moist mucous membranes. Crowded airway. Mallampati score is IV. NECK: Supple. No JVD. LUNGS: Has a fair airflow with few rhonchi. HEART: S1 and S2. ABDOMEN: Soft and nontender. No organomegaly. EXTREMITIES: No edema. Has a left leg nonhealing ulcer. NEUROLOGIC: Awake and alert. Follow simple commands. MEDICATIONS: He is on albuterol and Atrovent nebulizer q. 6 hours, glimepiride 4 mg daily, Ativan 1 mg twice a day p.r.n., Bactroban ointment to the affected area, Cardizem CD 30 mg q.i.d., Coumadin 9 mg daily, trazodone 150 mg daily, DuoNeb q. 8 hours round the clock, metformin 1000 mg twice a day, insulin coverage, potassium 20 mEq daily, Lasix 40 mg daily, Levemir 20 units twice a day, Lipitor 40 mg daily, magnesium oxide 400 mg daily, gabapentin 300 mg at bedtime, Percocet 10/325 one tab q. 6 hours p.r.n., Pletal 100 g twice a day, Singulair 10 mg daily and Zestril 2.5 mg daily. LABORATORY DATA: Reviewed and noted. Blood sugar this morning 230. IMPRESSION AND PLAN: Cardiomyopathy with atrial fibrillation, history of ablation therapy, had automatic implantable cardioverter-defibrillator, chronic obstructive lung disease, diabetes, hypertension, history of thromboembolic disease, requiring thrombectomy in the past, peripheral vascular disease, nonhealing left leg ulcer. Pulmonary point of doing okay. Continue bronchodilator. Keep head at 45 degrees. Sleep apnea precaution. Encourage continuous positive airway pressure. Continue therapy. Thank you and we will follow with you. Tia Godinez MD
[2017-02-07 06:14] LABS: HEMATOCRIT 39.4 % (42.0-52.0); MEAN CELL VOLUME 88.3 fl (80.0-105.0); MEAN CORPUSCULAR HEMOGLOBIN 28.7 pg (25.0-35.0); MEAN CORPUSCULAR HGB CONC 32.5 g/dl (31.0-37.0); MEAN PLATELET VOLUME 10.4 fl (7.0-11.0); RED CELL DISTRIBUTION WIDTH 14.9 % (11.5-14.5); WHITE BLOOD COUNT 14.5 10^3/ul (4.5-11.0)
[2017-02-07 06:37] LABS: INR 2.79 (0.93-1.08)
[2017-02-07] MEDS: Insulin Reg-HIGH-Coverage SC SCH (06:57)
[2017-02-07] MEDS: Cilostazol 100 mg Tab UD PO SCH (07:30)
[2017-02-07] MEDS: Albuterol-Ipratrop 3 mg / 0.5 (3 ml) UD IH SCH (07:39)
[2017-02-07] MEDS: Potassium Chloride 20 mEq ER Tab PO SCH (08:09)
[2017-02-07 08:37] LABS: ALB/GLOB RATIO 1.3 (1.1-1.8); ALKALINE PHOSPHATASE 56 U/L (38-126); ALT/SGPT 23 U/L (7-56); AST/SGOT 21 U/L (17-59); BILIRUBIN,TOTAL 0.5 mg/dL (0.2-1.3); BLOOD UREA NITROGEN 22 mg/dL (7-21); CALCIUM 9.1 mg/dL (8.4-10.5); CARBON DIOXIDE 30 mmol/L (21-33); CHLORIDE 101 mmol/L (98-107); GFR AFRICAN-AMERICAN > 60; GLUCOSE,RANDOM 164 mg/dL (70-110); SODIUM 137 mmol/L (132-148); TOTAL PROTEIN 5.8 g/dL (5.8-8.3)
[2017-02-07] MEDS: Insulin Detemir 100 units/ml Vial (Levemir) SC SCH (11:00)
[2017-02-07] MEDS: Magnesium Oxide 400 mg Tab UD PO SCH (11:00)
[2017-02-07 11:33] VITALS: BP 127/80; PULSE 89
--- NOTE | 2017-02-07 12:07 | DS ---
HISTORY OF PRESENT ILLNESS: The patient is a 56-year-old male, who had come into the Transitional Care Unit for rehab. The patient states he has been working fairly well. His breathing has improved. There are no complaints of any chest pain. No shortness of breath. He says he is ready to be discharged home today. PHYSICAL EXAMINATION: VITAL SIGNS: Temperature is 98.5, pulse is 70, blood pressure is 108/59, and respirations 15. GENERAL: The patient is lying in bed, flat, comfortable. HEENT: No oral lesion. Anicteric sclerae. Moist mucosa. NECK: No JVD, adenopathy, or thyromegaly. CARDIOVASCULAR: S1 and S2, regular. No murmurs, rubs, or gallops. LUNGS: Clear to auscultation bilaterally. No wheeze, rales, or rhonchi. ABDOMEN: Bowel sounds are positive, soft, nontender and nondistended. EXTREMITIES: No cyanosis, clubbing or edema. LABS: White count of 14.5. ASSESSMENT: 1. Acute chronic obstructive pulmonary disease exacerbation, improved. 2. Acute congestive heart failure secondary to systolic dysfunction. 3. Hypertension. 4. Diabetes type 2. 5. Peripheral arterial disease. 6. Atrial fibrillation, on Coumadin. 7. Automatic implantable cardioverter-defibrillator. 8. Gastric bypass history. 9. Obesity with a BMI of 41. 10. Nonadherence/noncompliance. 11. Dyslipidemia. PLAN: The patient is currently comfortable. His INR is therapeutic at 2.79. He is on his Coumadin. The patient is on trazodone. He is going to continue with metformin for his diabetes. He is going to be discharged home today. I did rewrite all his prescriptions except the Coumadin,which he has at home. I discontinued the patient's digoxin. His rate has been controlled. I put him on short-acting calcium channel rahat, Cardizem, so he should be able to get that at home because it is cheaper. He was given Vicodin, which he states helps him for his pain. I did advise him to come in for followup, and I did try to let him know that he should try to get his Medicaid if he lost it because he will need it for his medication and followup visits. He is advised to follow with Cariology and Pulmonary, although he has been noncompliant and adherent to his followup as an outpatient. He does have advanced cardiac disease for which he will need close follow up. He says he does understand. All my questions were answered. I did also emphasized the importance of followup with me in the office, so he can be closely monitored. He was advised he may come back to the hospital if he has any worsening of his symptoms. Axel Villagomez MD
== END 2017-02-07 12:20 | disposition home or self-care (01) | DRG 190 ==
LOC: TRCU 11:35
PROVIDERS: ADMIT Internal Medicine Nephrology; ATTEND Internal Medicine Nephrology
PROC: F07Z9ZZ Gait Training/Functional Ambulation Treatment (ICD-10-PCS; principal; 2017-01-30)
PROC: F07M6ZZ Therapeutic Exercise Treatment of Musculoskeletal System - Whole Body (ICD-10-PCS; 2017-01-30)
DX: J44.1 Chronic obstructive pulmonary disease with (acute) exacerbation (principal); I50.23 Acute on chronic systolic (congestive) heart failure; I27.20 Pulmonary hypertension, unspecified; E11.51 Type 2 diabetes mellitus with diabetic peripheral angiopathy without gangrene; I42.8 Other cardiomyopathies; E11.622 Type 2 diabetes mellitus with other skin ulcer; Z68.41 Body mass index [BMI] 40.0-44.9, adult; L97.929 Non-pressure chronic ulcer of unspecified part of left lower leg with unspecified severity; E66.01 Morbid (severe) obesity due to excess calories; I48.2 Chronic atrial fibrillation; I11.0 Hypertensive heart disease with heart failure; E78.5 Hyperlipidemia, unspecified; G47.33 Obstructive sleep apnea (adult) (pediatric); I25.10 Atherosclerotic heart disease of native coronary artery without angina pectoris; I48.0 Paroxysmal atrial fibrillation; Z79.01 Long term (current) use of anticoagulants; Z79.84 Long term (current) use of oral hypoglycemic drugs; Z79.899 Other long term (current) drug therapy; Z87.891 Personal history of nicotine dependence; F10.11 Alcohol abuse, in remission; Z91.14 Patient's other noncompliance with medication regimen; Z91.19 Patient's noncompliance with other medical treatment and regimen; Z95.810 Presence of automatic (implantable) cardiac defibrillator; Z98.84 Bariatric surgery status

== ENCOUNTER 2017-02-25 18:37 | Inpatient (IN) | payer MEDICARE, OTHER ==
[2017-02-25 18:37] VITALS: PULSE 74
[2017-02-25 20:36] LABS: VENOUS BLOOD GAS BASE EXCESS 1.6 mmol/L (0.0-2.0)
[2017-02-25 20:37] LABS: BASO # 0.05 K/mm3 (0.0-2.0); BASO % 0.5 % (0.0-3.0); EOS # 0.3 (0.0-0.7); GRAN # 7.45 (1.4-6.5); GRAN % 80.7 % (50.0-68.0); HEMATOCRIT 39.1 % (42.0-52.0); LYMPH % 11.2 % (22.0-35.0); MEAN CELL VOLUME 90.3 fl (80.0-105.0); MEAN CORPUSCULAR HEMOGLOBIN 28.9 pg (25.0-35.0); MEAN PLATELET VOLUME 10.1 fl (7.0-11.0); MONO # 0.4 (0.1-0.6); MONO % 4.6 % (1.0-6.0); RED CELL DISTRIBUTION WIDTH 15.2 % (11.5-14.5); WHITE BLOOD COUNT 9.3 10^3/ul (4.5-11.0)
[2017-02-25 20:51] LABS: ALB/GLOB RATIO 1.3 (1.1-1.8); ALKALINE PHOSPHATASE 68 U/L (38-126); ALT/SGPT 26 U/L (7-56); AST/SGOT 39 U/L (17-59); BILIRUBIN,TOTAL 0.9 mg/dL (0.2-1.3); BLOOD UREA NITROGEN 19 mg/dL (7-21); CALCIUM 9.3 mg/dL (8.4-10.5); CARBON DIOXIDE 27 mmol/L (21-33); CHLORIDE 103 mmol/L (98-107); GFR AFRICAN-AMERICAN > 60; GLUCOSE,RANDOM 257 mg/dL (70-110); POTASSIUM 5.4 mmol/L (3.6-5.0); SODIUM 140 mmol/L (132-148); TOTAL PROTEIN 7.2 g/dL (5.8-8.3); TROPONIN I 0.07 ng/mL
--- NOTE | 2017-02-25 21:21 | ED PDOC ---
Arrival/HPI - General Chief Complaint: Shortness Of Breath Time Seen by Provider: 02/25/17 18:59 Historian: Patient - History of Present Illness Narrative History of Present Illness (Text): 02/25/17 19:00 Pete Johnson is a 56 year old male, whose past medical history includes COPD, CAD, chf, cardiomyopathy and atrial fibrillation with AICD, tobacco use, with hx of medication non-compliance, who presents to the emergency department complaining of shortness of breath for one day. Patient denies any chest pain, fevers, chills, or any other complaint at this time. Time/Duration: 24 hours Symptom Onset: Gradual Symptom Course: Unchanged Activities at Onset: Light Context: Home Past Medical History - Provider Review Nursing Documentation Reviewed: Yes - Infectious Disease Hx of Infectious Diseases: None - Tetanus Immunization Tetanus Immunization: Unknown - Cardiac Hx Congestive Heart Failure: Yes Hx Hypertension: Yes - Pulmonary Hx Chronic Obstructive Pulmonary Disease (COPD): Yes - Neurological Hx Dizziness: Yes - HEENT Hx HEENT Disorder: Yes (admits using glasses) - Renal Hx Renal Disorder: No - Endocrine/Metabolic Hx Diabetes Mellitus Type 2: Yes - Hematological/Oncological Hx Blood Disorders: No - Integumentary Hx Dermatological Disorder: No - Musculoskeletal/Rheumatological Hx Falls: No - Gastrointestinal Hx Gastrointestinal Disorders: No - Genitourinary/Gynecological Hx Genitourinary Disorders: No Hx Reproductive Disorders: No - Psychiatric Hx Anxiety: Yes Hx Bipolar Disorder: Yes Hx Depression: Yes Hx Substance Use: Yes (COCAINE, QUIT 25 YRS AGO) - Past Surgical History Past Surgical History: Non-Contributing - Surgical History Hx Cardiac Catheterization: Yes Hx Coronary Stent: Yes Hx Gastric Bypass Surgery: Yes - Anesthesia Hx Anesthesia: Yes Hx Anesthesia Reactions: No Hx Malignant Hyperthermia: No - Suicidal Assessment Feels Threatened In Home Enviroment: No Family/Social History - Physician Review Nursing Documentation Reviewed: Yes Family/Social History: No Known Family HX Smoking Status: Former Smoker Hx Alcohol Use: Yes (QUIT 25 YRS AGO) Hx Substance Use: Yes (COCAINE, QUIT 25 YRS AGO) Hx Substance Use Treatment: Yes Allergies/Home Meds Allergies/Adverse Reactions: Allergies quetiapine fumarate [From Seroquel] Adverse Reaction (Verified 02/25/17 19:04) ANAPHYLAXIS wild berries Allergy (Intermediate, Uncoded 12/05/16 08:32) RASH Home Medications: Home Meds Medication Instructions Recorded Confirmed diltiaZEM [Cardizem] 30 mg PO BID 02/25/17 02/25/17 Review of Systems - Physician Review All systems were reviewed & negative as marked: Yes - Review of Systems Constitutional: absent: Fevers, Night Sweats Eyes: absent: Vision Changes ENT: absent: Hearing Changes Respiratory: SOB Cardiovascular: absent: Chest Pain Gastrointestinal: absent: Abdominal Pain Genitourinary Male: absent: Dysuria, Frequency Musculoskeletal: absent: Arthralgias Skin: absent: Rash, Pruritis Neurological: absent: Headache, Dizziness Endocrine: absent: Diaphoresis Hemo/Lymphatic: absent: Adenopathy Psychiatric: absent: Anxiety, Depression Physical Exam Vital Signs Reviewed: Yes Vital Signs Temp Pulse Resp BP Pulse Ox 02/25/17 20:53 71 19 157/80 H 95 02/25/17 20:10 163/112 H 02/25/17 20:00 24 95 02/25/17 18:58 98 F 91 H 19 161/80 H 93 L Temperature: Afebrile Blood Pressure: Hypertensive Pulse: Tachycardic Appearance: Positive for: Well-Appearing, Non-Toxic, Comfortable Pain Distress: None Mental Status: Positive for: Alert and Oriented X 3 - Systems Exam Head: Present: Atraumatic, Normocephalic Pupils: Present: PERRL Extroacular Muscles: Present: EOMI Conjunctiva: Present: Normal Mouth: Present: Moist Mucous Membranes Neck: Present: Normal Range of Motion Respiratory/Chest: Present: Rales (bilaterally) Cardiovascular: Present: Regular Rate and Rhythm, Normal S1, S2. No: Murmurs Abdomen: Present: Normal Bowel Sounds. No: Tenderness, Distention, Peritoneal Signs Back: Present: Normal Inspection Upper Extremity: Present: Normal Inspection. No: Cyanosis, Edema Lower Extremity: Present: Normal Inspection. No: Edema Neurological: Present: GCS=15, CN II-XII Intact, Speech Normal Skin: Present: Warm, Dry, Normal Color. No: Rashes Psychiatric: Present: Alert, Oriented x 3, Normal Insight, Normal Concentration Medical Decision Making ED Course and Treatment: 02/25/17 21:36 Impression: 56 year old male complaining of shortness of breath for one day. Differential Diagnosis included but are not limited to: Plan: -- EKG -- Chest X-ray -- VBG and Blood Culture -- Labs -- Humlin, Lasix, Tylenol -- Reassess and disposition Prior Visits: Notes and results from previous visits were reviewed. Patient was last seen in the emergency department on 01/29/17 for chest pain and shortness of breath. Patient was admitted to hospitalist care for further evaluation. Progress Notes: EKG: Ordered, reviewed, and independently interpreted the EKG. Rate : 81 BPM Rhythm : NSR Interpretation : RBBB. Non-specific ST-T wave changes. 02/25/17 21:[address] Villagomez, who accepts patient plan for admission to telemetry observation for CHF. - Lab Interpretations Lab Results: 02/25/17 20:00 02/25/17 20:00 Lab Results 02/25/17 20:00: Sodium 140, Chloride 103, Potassium 5.4 H, Carbon Dioxide 27, Anion Gap 15, BUN 19, Creatinine 0.7 L, Est GFR ( Amer) > 60, Est GFR ( Non-Af Amer) > 60, Random Glucose 257 H, Calcium 9.3, Total Bilirubin 0.9, AST 39, ALT 26, Alkaline Phosphatase 68, Lactate Dehydrogenase 848 H, Total Creatine Kinase 86, Troponin I 0.07 D, NT-Pro-B Natriuret Pep 2300 H, Total Protein 7.2, Albumin 4.1, Globulin 3.1, Albumin/Globulin Ratio 1.3 02/25/17 20:00: pO2 38, VBG pH 7.30 L, VBG pCO2 60.0, VBG HCO3 29.5 H, VBG Total CO2 31.3 H, VBG O2 Sat (Calc) 70.8 H, VBG Base Excess 1.6, VBG Potassium 6.0 H, Sodium 138.0, Chloride 103.0, Glucose 269 H, Lactate 2.0, FiO2 21.0, Venous Blood Potassium 6.0 H 02/25/17 20:00: WBC 9.3 D, RBC 4.33, Hgb 12.5 L, Hct 39.1 L, MCV 90.3, MCH 28.9 , MCHC 32.0, RDW 15.2 H, Plt Count 184, MPV 10.1, Gran % 80.7 H, Lymph % (Auto) 11.2 L, [place] % (Auto) 4.6, Eos % (Auto) 3.0, Baso % (Auto) 0.5, Gran # 7.45 H, Lymph # 1.0 L, [place] # 0.4, Eos # 0.3, Baso # 0.05 I have reviewed the lab results: Yes - RAD Interpretation Radiology Orders: 02/25/17 19:08 CHEST PORTABLE [RAD] Stat - Medication Orders Current Medication Orders: Acetaminophen (Tylenol 325mg Tab) 650 mg PO Q4H PRN PRN Reason: Fever >100.5 F Albuterol/Ipratropium (Duoneb 3 Mg/0.5 Mg (3 Ml) Ud) 3 ml IH Q4H PRN PRN Reason: Shortness of Breath Insulin Human Regular (Humulin R Low) 0 units SC ACHS WILTON PRN Reason: Protocol Discontinued Medications Furosemide (Lasix) 40 mg IVP ONCE ONE Stop: 02/25/17 19:30 Last Admin: 02/25/17 20:10 Dose: 40 mg MAR Blood Pressure Document 02/25/17 20:10 RD (Rec: 02/25/17 20:15 RD [id number]) Blood Pressure Blood Pressure (100/60-150/90) 163/112 IVP Administration Document 02/25/17 20:10 RD (Rec: 02/25/17 20:15 RD [id number]) Charges for Administration # of IVP Administrations 1 - Scribe Statement The provider has reviewed the documentation as recorded by the Charlineibmadina Tellez Provider Scribe Attestation: All medical record entries made by the Scribe were at my direction and personally dictated by me. I have reviewed the chart and agree that the record accurately reflects my personal performance of the history, physical exam, medical decision making, and the department course for this patient. I have also personally directed, reviewed, and agree with the discharge instructions and disposition. Disposition/Present on Arrival - Present on Arrival Any Indicators Present on Arrival: No History of DVT/PE: No History of Uncontrolled Diabetes: Yes Urinary Catheter: No History of Decub. Ulcer: No History Surgical Site Infection Following: None - Disposition Have Diagnosis and Disposition been Completed?: Yes Diagnosis: COPD (chronic obstructive pulmonary disease), Congestive heart failure (CHF) Disposition: HOSPITALIZED Disposition Time: 21:20 Patient Problems: Current Active Problems Problem Status Onset COPD (chronic obstructive pulmonary disease) Acute Congestive heart failure (CHF) Acute Condition: FAIR
[2017-02-25 21:44] LABS: PARTIAL THROMBOPLASTIN TIME 43.9 Seconds (25.1-36.5)
[2017-02-25 21:54] LABS: INR 4.33 (0.93-1.08)
[2017-02-25] MEDS ORDERED: Insulin Reg-LOW-Coverage SC SCH (22:00)
[2017-02-25 22:24] LABS: ALB/GLOB RATIO 1.3 (1.1-1.8); ALKALINE PHOSPHATASE 86 U/L (38-126); ALT/SGPT 23 U/L (7-56); AST/SGOT 23 U/L (17-59); BILIRUBIN,TOTAL 0.8 mg/dL (0.2-1.3); BLOOD UREA NITROGEN 18 mg/dL (7-21); CALCIUM 9.6 mg/dL (8.4-10.5); CARBON DIOXIDE 27 mmol/L (21-33); CHLORIDE 101 mmol/L (98-107); GFR AFRICAN-AMERICAN > 60; GLUCOSE,RANDOM 244 mg/dL (70-110); POTASSIUM 4.7 mmol/L (3.6-5.0); SODIUM 141 mmol/L (132-148); TOTAL PROTEIN 7.3 g/dL (5.8-8.3)
[2017-02-25 22:39] VITALS: BMI 43.9
[2017-02-26 00:12] LABS: VENOUS BLOOD GAS BASE EXCESS 3.2 mmol/L (0.0-2.0); VENOUS BLOOD PH 7.41 (7.32-7.43)
[2017-02-26 01:48] LABS: BLOOD UREA NITROGEN 17 mg/dL (7-21); CALCIUM 8.9 mg/dL (8.4-10.5); CARBON DIOXIDE 27 mmol/L (21-33); CHLORIDE 102 mmol/L (98-107); GFR AFRICAN-AMERICAN > 60; GLUCOSE,RANDOM 219 mg/dL (70-110); MAGNESIUM 1.4 mg/dL (1.7-2.2); SODIUM 137 mmol/L (132-148)
[2017-02-26] MEDS ORDERED: Magnesium Sulfate 2 GM in Sodium Chloride 0.9% 100 ML IVPB ONE (02:10)
--- NOTE | 2017-02-26 08:00 | RAD ---
HISTORY: Shortness of breath. COMPARISON: 10/04/2016. FINDINGS: LUNGS: No discrete infiltrates. PLEURA: No significant pleural effusion identified, no pneumothorax apparent. CARDIOVASCULAR: Cardiomegaly, mild pulmonary vascular congestion a new finding compared to the prior study. Position/ configuration of pacemaker OSSEOUS STRUCTURES: No significant abnormalities. VISUALIZED UPPER ABDOMEN: Normal. OTHER FINDINGS: None. IMPRESSION: Cardiomegaly/acute CHF.
[2017-02-26] MEDS: Albuterol-Ipratrop 3 mg / 0.5 (3 ml) UD IH PRN ×2 (08:36→13:43)
[2017-02-26] MEDS: Magnesium Oxide 400 mg Tab UD PO SCH ×2 (09:55→17:32)
[2017-02-26] MEDS: Albuterol-Ipratrop 3 mg / 0.5 (3 ml) UD IH SCH ×3 (11:30→20:21)
[2017-02-26] MEDS: Insulin Detemir 100 units/ml Vial (Levemir) SC SCH ×2 (12:50→20:41)
[2017-02-26] MEDS: Insulin Reg-MEDIUM-Coverage SC SCH ×4 (13:06→22:15)
--- NOTE | 2017-02-26 14:03 | CARD ---
APPROVED REPORT EKG Measurement Heart [id number] [id number] <Conclusion> V paced, Underlying NSR
--- NOTE | 2017-02-26 15:01 | HP ---
CHIEF COMPLAINT AND HISTORY OF PRESENT ILLNESS: This is a 56-year-old male who is coming into the hospital with complaints of cough and congestion. He says he has been having productive sputum that is darkish color. He states it started 1 day prior to coming into the hospital. He does have a past medical history of CHF, coronary artery disease, COPD, atrial fibrillation, AICD. The patient has a history of nonadherence to his treatment plan because of financial issues. He says he does get shortness of breath with exertion. He has no nausea. No vomiting. No abdominal pain, no back pain. No dysuria or frequency. No nocturia. He says he has a lot of congestion and stuffiness in his nose that causes him difficulty with breathing. REVIEW OF SYSTEMS: All other review of symptoms are within normal limits except as mentioned. HOME MEDICATIONS: Have been reviewed on the [facility] ALLERGIES: QUETIAPINE AND WILD [place]CC[place]. PAST MEDICAL HISTORY: 1. COPD, CHF secondary to systolic dysfunction. 2. Diabetes type 2. 3. Hypertension. 4. Peripheral arterial disease. 5. Atrial fibrillation, on Coumadin. 6. Defibrillator. 7. Gastric bypass. 8. Morbid obesity. PAST SURGICAL HISTORY: 1. Gastric bypass. 2. Left leg thrombosis with thrombectomy. SOCIAL HISTORY: He is a former smoker, but quit more than 25 years ago. He does have a history of cocaine and alcohol use but has been sober. He lives alone. He is a . FAMILY HISTORY: Noncontributory. PHYSICAL EXAMINATION: VITAL SIGNS: Temperature is 97.2, pulse of 70, blood pressure 102/65, respirations 20, O2 saturation 94%. GENERAL: The patient lying in bed, uncomfortable, and in no acute distress. HEENT: Atraumatic and normocephalic. Anicteric sclerae. Moist mucosa. [place] conjunctivae. No oral lesions. NECK: No JVD, anterior and posterior adenopathy, thyromegaly, or bruits. CARDIOVASCULAR: S1 and S2 regular. No murmur, rubs, or gallop. LUNGS: Clear to auscultation bilaterally. No wheezes, rales, or rhonchi. ABDOMEN: Bowel sounds are positive. Soft, nontender and nondistended. No hepatosplenomegaly. No rebound. No guarding. EXTREMITIES: In the lower extremities, he does have 1+ edema. NEUROLOGIC: No facial asymmetry. Tongue is midline. No uvula deviation. Power is 5/5 upper extremity and lower extremity. Sensation intact in upper extremity and lower extremity. PSYCHIATRIC: He is awake, alert and oriented x3. No anxiety or depression. He has normal affect. GENITOURINARY: No CVA tenderness. VASCULAR: 2+ pulses in the carotid pulses and pedal pulses. SKIN: No erythema or nodules SPINE: Shows normal curvature. LABORATORY DATA: The patient has a white count of 9.3, hemoglobin of 12.5, platelet count 184. Chemistry shows sodium 137, potassium 4.0, creatinine 0.8. ProBNP is 2300. INR is 4.3. His ABG done shows pH of 7.3 with a pCO2 of 60, with a bicarb of 27. Chest x-ray done shows mild pulmonary vascular congestion. EKG shows heart rate of 81, sinus rhythm, right bundle-branch block, nonspecific ST changes. ASSESSMENT: 1. Acute chronic obstructive pulmonary disease exacerbation. 2. Acute congestive heart failure secondary to systolic dysfunction. 3. Diabetes type 2. 4. Hypertension. 5. Bronchitis. 6. Peripheral arterial disease. 7. Atrial fibrillation, on Coumadin. 8. Automated implantable cardioverter defibrillator. 9. Gastric bypass. 10. Morbid obesity with a body mass index of 43. 11. Peripheral arterial disease with stents in left leg. PLAN: The patient is currently on Amaryl for diabetes. He is receiving Cardizem. The patient is going to continue with trazodone for his anxiety. He is on Lasix daily. The patient is going to be Neurontin for his neuropathy. He is on Singulair. He is going to continue with Zestril for CHF. I will get Dr. Rajan and Dr. Godinez to see the patient. We will place the patient on DuoNeb treatments. We will continue to follow closely. Axel Villagomez MD
[2017-02-26] MEDS: Oxycodone/Acetaminophen 10/325 mg Tab PO PRN (22:11)
--- NOTE | 2017-02-27 05:28 | CON ---
DATE: 02/26/2017 REFERRNG PHYSICIAN: Axel Villagomez MD REASON FOR CONSULTATION: Pleural effusion, short of breath, chronic lung disease, sleep apnea syndrome. HISTORY OF PRESENT ILLNESS: This is a 56-year-old obese male well known to me from the hospital with multiple medical issues including cardiomyopathy, has an AICD, atrial fibrillation requiring cardioversion and ablation therapy, chronic obstructive lung disease, obstructive sleep apnea syndrome, hypertension, diabetes, history of recurrent thromboembolic disease with peripheral artery disease, morbid obesity. He is a known noncompliant with the medication. He comes in with cough, shortness of breath, significant leg swelling with erythema of the lower extremity, admitted for further workup, started on antibiotics, inhaled bronchodilator, and diuretics. PAST MEDICAL HISTORY: As per history of present illness. ALLERGIES: HE IS ALLERGIC TO QUETIAPINE AND ALSO ALLERGY TO FRUIT BERRIES, WILD BERRIES. SOCIAL HISTORY: He stopped smoking. Denies any alcohol use. FAMILY HISTORY: No significant cardiopulmonary disease reported. MEDICATIONS: He is on mg twice a day, Amaryl 4 mg daily, Ativan 1 mg twice a day p.r.n., Cardizem 30 mg twice a day, trazodone 150 mg at bedtime, DuoNeb four times a day, insulin coverage, Lasix 40 mg twice a day, also now getting Lasix 40 mg IV twice a day, Levemir 30 units subcutaneous twice a day, mag oxide 400 mg twice a day, gabapentin 300 mg twice a day, Percocet 10/325 one tablet q. 6 hours, Singulair 10 mg daily, Tylenol p.r.n., Zestril 2.5 mg daily. REVIEW OF SYSTEMS: No headache. No rhinitis. Has cough and shortness of breath. No chest pain or nausea. No vomiting. Increased abdominal girth, edema up to the hips. NEUROLOGIC: Awake and alert. Follows simple commands. PHYSICAL EXAMINATION: GENERAL: Sitting up in a reclining chair. VITAL SIGNS: Temperature is 98, heart rate 73, respiratory rate is 20, blood pressure 127/62, and pulse ox 94% on 2 liters nasal cannula. HEENT: Moist mucous membranes. Crowded airway. NECK: Supple. No JVD. LUNGS: Decreased breath sounds at the bases. HEART: S1, S2. ABDOMEN: Obese, soft, nontender. EXTREMITIES: Has edema up to the hips. NEUROLOGIC: Awake and alert. Follows simple commands. LABORATORY DATA: Shows hemoglobin 12.5, hematocrit 39.1, WBC 9.3, platelet count is 184. PTT yesterday 4.3. VBG done yesterday shows pH of 7.41, pCO2 of 45, O2 of 35. Sodium 137, potassium 4.0, chloride 102, bicarbonate 27, BUN is 17, creatinine 0.8, glucose 219, calcium 8.9, magnesium 1.4. LDH 848, AST 29, ALT 26. Microbiology: Blood culture has been negative. DIAGNOSTIC DATA: Had a chest x-ray done which shows cardiomegaly with congestion and heart failure. IMPRESSION AND PLAN: Severe cardiomyopathy, pulmonary hypertension, history of atrial fibrillation requiring automatic implantable cardioverter-defibrillator and ablation therapy,chronic obstructive lung disease, obstructive sleep apnea syndrome, diabetes, hypertension, history of peripheral vascular disease, history of thromboembolic disease requiring thrombectomy of the lower extremity, also had a component of sleep apnea syndrome, noncompliant with the CPAP and BiPAP. He is presently oxygen dependent at home. At this time, he has agreed to try to CPAP. We will give him low pressure CPAP at 7 cm with 30% oxygen while sleeping. Continue Lasix 40 mg q. 12 hours IV. Continue inhaled bronchodilator. Elevate lower extremities while in bed. Follow up electrolytes. May place him on doxycycline 100 mg twice a day. There may be a component of cellulitis of lower extremities. Follow up INR in the morning. We will dose Coumadin according to INR in the morning. Thank you, and we will follow with you. Tia Godinez MD
[2017-02-27 06:47] LABS: BASO # 0.05 K/mm3 (0.0-2.0); BASO % 0.6 % (0.0-3.0); EOS # 0.3 (0.0-0.7); GRAN # 6.01 (1.4-6.5); GRAN % 71.1 % (50.0-68.0); HEMATOCRIT 38.2 % (42.0-52.0); LYMPH # 1.6 (1.2-3.4); LYMPH % 18.7 % (22.0-35.0); MEAN CELL VOLUME 88.8 fl (80.0-105.0); MEAN CORPUSCULAR HEMOGLOBIN 28.6 pg (25.0-35.0); MEAN CORPUSCULAR HGB CONC 32.2 g/dl (31.0-37.0); MEAN PLATELET VOLUME 10.1 fl (7.0-11.0); MONO # 0.6 (0.1-0.6); MONO % 6.6 % (1.0-6.0); RED CELL DISTRIBUTION WIDTH 15.2 % (11.5-14.5); WHITE BLOOD COUNT 8.5 10^3/ul (4.5-11.0)
[2017-02-27 06:55] LABS: INR 2.3 (0.93-1.08)
[2017-02-27 07:01] LABS: ALB/GLOB RATIO 1.3 (1.1-1.8); ALKALINE PHOSPHATASE 75 U/L (38-126); ALT/SGPT 29 U/L (7-56); AST/SGOT 22 U/L (17-59); BILIRUBIN,TOTAL 0.9 mg/dL (0.2-1.3); BLOOD UREA NITROGEN 18 mg/dL (7-21); CARBON DIOXIDE 28 mmol/L (21-33); CHLORIDE 100 mmol/L (98-107); GFR AFRICAN-AMERICAN > 60; GLUCOSE,RANDOM 108 mg/dL (70-110); MAGNESIUM 1.8 mg/dL (1.7-2.2); POTASSIUM 3.9 mmol/L (3.6-5.0); SODIUM 140 mmol/L (132-148); TOTAL PROTEIN 6.8 g/dL (5.8-8.3)
[2017-02-27] MEDS: Albuterol-Ipratrop 3 mg / 0.5 (3 ml) UD IH SCH ×3 (07:57→20:24)
--- NOTE | 2017-02-27 08:22 | CON ---
DATE: 02/26/2017 CONSULTING SERVICE: Cardiology. REASON FOR CONSULTATION: Acute decompensated congestive heart failure, acute on chronic systolic dysfunction, paroxysmal atrial fibrillation, morbid obesity. BRIEF CLINICAL HISTORY: This is a 56-year-old male with past medical history significant for paroxysmal atrial fibrillation status post radiofrequency ablation, very noncompliance to the medications, he recently discharged and readmitted again with complaint of swelling of the leg and fluid overload. PAST MEDICAL HISTORY: Significant for obesity, history of cardiac catheterization 2 to 3 times, nonobstructive coronary artery disease, history of cardiomyopathy, history of alcohol abuse, history of tobacco abuse, noncompliance with the medication, history of AICD at [facility] by Dr. Bonilla. PAST SURGICAL HISTORY: Significant gastric bypass, history of thrombectomy, acute occlusion of the left lower extremity artery, history of AICD, history of catheterization 2 to 3 times, nonobstructive coronary artery disease. Previous cardiac workup as follows; the patient recently MUGA scan done that showed ejection fraction 43%, normal RV compared to the previous improvement LV dysfunction noted. The patient had a cardiac catheterization 2 to 3 times in the past at least 2 in the [facility], last one is 2014 and normal coronaries, EDP in the range of 30. Medical treatment recommended, history of atrial fibrillation, history of CORA cardioversion failure, history of AICD at [facility], last radiofrequency ablation by Dr. Bonilla since the patient is normal sinus. Last echo in [facility] on 08/15/2016 shows mildly dilated LV function, decreased ejection fraction of 25%, moderately dilated RV function, moderately decreased dated 08/09/2016. The patient followed MUGA scan showed ejection fraction of 43%. CURRENT MEDICATIONS: The patient is supposed to take trazodone, Cardizem, metformin, lisinopril, glimepiride, gabapentin, furosemide, cilostazol and Coumadin, but the patient noncompliance does not take any medications. REVIEW OF SYSTEMS: As per HPI. PHYSICAL EXAMINATION: VITAL SIGNS: As follows; temperature afebrile, heart rate 72, blood pressure 128/78. HEENT: PERRLA intact. Extraocular muscles are intact. NECK: Supple. No carotid bruits or thyromegaly. CHEST: Clear to auscultation. HEART: S1 and S2, regular. ABDOMEN: Soft. EXTREMITIES: Clubbing and cyanosis negative. LABORATORY DATA: Blood workup as follows; WBC 9.5, hemoglobin 12.5, hematocrit 39.1 and platelet count 184. Chemistry showed sodium 132, potassium 4, chloride 102, carbon dioxide 27, anion gap of 12, BUN 17, creatinine of 0.8. Magnesium 1.4. IMPRESSION: Decompensated congestive heart failure, acute on chronic systolic dysfunction, grossly overload, hypomagnesemia, morbid obesity, diabetes, hypertension, hyperlipidemia. EKG shows V-paced rhythm with underlying normal sinus, paroxysmal atrial fibrillation, status post cardiac catheterization, nonobstructive coronary artery disease, history of gastric bypass, history of peripheral arterial disease, history of embolectomy, history of deep venous thrombosis. RECOMMENDATIONS: Continue IV Lasix, supplement electrolytes. We will discuss with Dr. Villagomez's reference anticoagulation, we will follow with you, though the patient is very noncompliant. We will supplement magnesium and we will follow with you. We will hold p.o. Lasix and start IV. Thank you for providing us the opportunity in taking care of Pete Marionacosta. Tia Rajan MD
[2017-02-27] MEDS: Insulin Reg-MEDIUM-Coverage SC SCH ×4 (09:03→22:02)
[2017-02-27] MEDS: Insulin Detemir 100 units/ml Vial (Levemir) SC SCH ×2 (12:08→17:29)
[2017-02-27] MEDS: Magnesium Oxide 400 mg Tab UD PO SCH ×2 (12:24→17:25)
--- NOTE | 2017-02-27 16:25 | PN ---
DATE: REASON FOR CONSULTATION: Acute decompensated congestive heart failure, [id number] systolic dysfunction, paroxysmal atrial fibrillation, morbid obesity, status post radiofrequency ablation. SUBJECTIVE: The patient denies any chest pain, shortness of breath or any palpitations. Feels a little better, but still mild short of breath, still complaining of leg swelling. OBJECTIVE: GENERAL: Not in apparent distress, sitting on chair, having the breakfast. VITAL SIGNS: As follows: temperature afebrile, heart rate 70, and blood pressure 102/60. HEENT: PERRLA. Extraocular muscles are intact. NECK: Supple. No carotid bruits or thyromegaly. CHEST: Clear to auscultation. HEART: S1 and S2, regular. ABDOMEN: Soft. EXTREMITIES: Clubbing and cyanosis negative. LABORATORY DATA: Blood workup as follows: WBC 8.5, hemoglobin 12.3, hematocrit 38.2, and platelet count 207. Chemistry showed sodium 140, potassium 3.9, chloride 100, carbon dioxide 28, anion gap of 16, BUN 18, creatinine of 1.0, random sugar 108, calcium 9, phosphorus 4, and magnesium 1.8. I's and O's are not accurately read because of appears little bit of no JVD. Today's INR is 2.3. ASSESSMENT: A 56-year-old morbidly obese male, very noncompliance with the medication, history of nonischemic cardiomyopathy, last ejection fraction 43% on MUGA scan, history of cardiac catheterization multiple times, nonobstructive coronary artery disease, status post automatic implantable cardioverter-defibrillator at [facility], history of radiofrequency ablation, history of paroxysmal atrial fibrillation, admitted with acute decompensated congestive heart failure secondary to possibly noncompliance with the medications. RECOMMENDATIONS: History of gastric bypass in the past, history of occlusion of left lower extremity artery, history of DVT. We will restart anticoagulation as it is supratherapeutic. Monitor electrolytes. Continue Cardizem. We will hold the p.o. Lasix and continue IV. We will start 5 mg of Coumadin today. PT/INR daily. We will discontinue telemetry. Continue SID inhibitors. Continue Cardizem. Continue Coumadin as ordered. Continue diuretics. We will start IV Lasix, hold p.o. . We will follow with you. Thank you Dr. Mitchell for providing us the opportunity in taking care of the patient, Alex Freeman. Tia Rajan MD
--- NOTE | 2017-02-27 20:05 | PN ---
DATE: 02/27/2017 SUBJECTIVE: Patient has no complaints of any chest pain or shortness of breath. He states his congestion is better. His breathing is better but still gets out of breath on exertion. PHYSICAL EXAMINATION VITAL SIGNS: Temperature is 98.1, pulse is 74, blood pressure is 114/66, respirations 18. GENERAL: The patient is lying in bed, flat, comfortable. HEENT: No oral lesion. Anicteric sclerae. Moist mucosa. NECK: No JVD, adenopathy, or thyromegaly. CARDIOVASCULAR: S1 and S2, regular. No murmurs, rubs, or gallops. LUNGS: Clear to auscultation bilaterally. No wheeze, rales, or rhonchi. ABDOMEN: Bowel sounds are positive, soft, nontender and nondistended. EXTREMITIES: no cyanosis, clubbing or edema. LABS: White count 8.5, hemoglobin 12.3, creatinine 1.0. ASSESSMENT: 1. Bronchitis. 2. Acute chronic obstructive pulmonary disease exacerbation. 3. Acute congestive heart failure secondary to systolic dysfunction. 4. Diabetes type 2. 5. Hypertension. 6. Peripheral arterial disease. 7. Atrial fibrillation, on Coumadin. 8. Automatic implantable cardioverter defibrillator. 9. Gastric bypass. 10. Morbid obesity with edema . 11. Peripheral arterial disease with stent in the left side. PLAN: Patient is currently comfortable. He is going to continue his Aldactone. Patient is on Amaryl for his diabetes. He is going to continue Cardizem. He has even trazodone for his anxiety. Patient is on Lasix IV. He is getting Levemir for his diabetes. He has magnesium that was replaced. He is on Zestril for his CHF. He is being followed by pulmonary and cardiology. Appreciate your input. We will restart the patient on his Coumadin, it was on hold because of his elevated INR. Axel Villagomez MD
--- NOTE | 2017-02-28 00:54 | PN ---
PULMONARY PROGRESS NOTE DATE: 02/27/2017 REFERRING PHYSICIAN: Dr. Axel Villagomez. SUBJECTIVE: He is out of bed to chair. Night was unremarkable. Tolerated the CPAP for 7 hours. No headache. No rhinitis. Decreased shortness of breath. No nausea or vomiting. Decreased leg swelling, still having a left lower extremity nonhealing ulcer. OBJECTIVE: GENERAL: No acute distress. VITAL SIGNS: Temperature is 98, heart rate is 70, respiratory rate is 18, blood pressure is 114/66, and pulse oximetry is 93% on nasal cannula. HEENT: Moist mucous membranes. Crowded airway. Mallampati score is 4. NECK: Short, thick neck. LUNGS: Have a decreased breath sounds at the bases. HEART: S1 and S2. ABDOMEN: Soft and nontender. No organomegaly. EXTREMITIES: Have decreased edema compared to yesterday. Left lower extremity has a nonhealing ulcer which is tender to touch. NEUROLOGIC: Awake and alert. Follow simple commands. MEDICATIONS: He is on Aldactone 25 mg twice a day; Amaryl 4 mg daily; lorazepam 1 mg twice a day p.r.n.; Cardizem 30 mg twice a day; Coumadin 5 mg daily; also trazodone 150 mg daily; albuterol and Atrovent nebulizer q. 8 hours; insulin coverage; Lasix 40 mg IV twice a day; Levemir 30 units subcu twice a day; magnesium oxide 400 mg twice a day; gabapentin 300 mg twice a day; Percocet 10/325 one tab q. 6 hours p.r.n.; Singulair 10 mg daily; Tylenol on a p.r.n. basis; and Zestril 2.5 mg daily. Medications reviewed and noted. LABORATORY DATA: Hemoglobin 12.3, hematocrit 38.2, WBC 8.5, platelet count is 207. INR 2.30. Sodium 140, potassium 3.9, chloride 100, bicarbonate 28, BUN 18, creatinine 1.0, glucose 108, calcium 9.0, phosphorus 4.0, magnesium 1.8, AST 22, ALT 29, alkaline phosphatase is 75, albumin is 3.8. IMPRESSION AND PLAN: Severe cardiomyopathy; pulmonary hypertension; history of atrial fibrillation, requiring automatic implantable cardioverter-defibrillator; history of ablation therapy; chronic obstructive lung disease; obstructive sleep apnea syndrome; diabetes; hypertension; history of peripheral vascular disease; history of thromboembolic disease, requiring thrombectomy in the past, has a nonhealing ulcer on the left leg, also has sleep apnea syndrome, tolerated the CPAP well last night. I had a long discussion with the patient, urged him to keep using CPAP while sleeping, keep head at 45 degrees, diuretics, afterload tare weigher, anticoagulation, bronchodilator, start physical therapy. Followup labs in the morning. Thank you and we will follow with you. Tia Godinez MD
[2017-02-28 06:57] LABS: BLOOD UREA NITROGEN 15 mg/dL (7-21); CALCIUM 8.8 mg/dL (8.4-10.5); CARBON DIOXIDE 31 mmol/L (21-33); CHLORIDE 101 mmol/L (98-107); GFR AFRICAN-AMERICAN > 60; GLUCOSE,RANDOM 120 mg/dL (70-110); POTASSIUM 3.9 mmol/L (3.6-5.0); SODIUM 140 mmol/L (132-148)
[2017-02-28 07:03] LABS: INR 1.9 (0.93-1.08)
[2017-02-28] MEDS: Albuterol-Ipratrop 3 mg / 0.5 (3 ml) UD IH SCH ×3 (07:11→19:47)
--- NOTE | 2017-02-28 09:56 | PN ---
DATE: 02/28/2017 SUBJECTIVE: The patient has no complaints of any chest pain, no shortness of breath, no headaches. He does say he gets short of breath after he exerts himself. PHYSICAL EXAMINATION: VITAL SIGNS: Temperature is 97.6, pulse is 74, blood pressure is 130/76, and respirations 20. GENERAL: The patient is lying in bed, flat, comfortable. HEENT: No oral lesion. Anicteric sclerae. Moist mucosa. NECK: No JVD, adenopathy, or thyromegaly. CARDIOVASCULAR: S1 and S2, regular. No murmurs, rubs, or gallops. LUNGS: Clear to auscultation bilaterally. No wheeze, rales, or rhonchi. ABDOMEN: Bowel sounds are positive, soft, nontender and nondistended. EXTREMITIES: No cyanosis, clubbing or edema. LABORATORY DATA: White count of 8.5, hemoglobin 12.3, and creatinine 0.9. ASSESSMENT: 1. Bronchitis. 2. Acute chronic obstructive pulmonary disease exacerbation. 3. Acute congestive heart failure secondary to systolic dysfunction. 4. Diabetes type 2. 5. Hypertension. 6. Peripheral arterial disease. 7. Atrial fibrillation, on Coumadin. 8. Automatic implantable cardioverter defibrillator. 9. Gastric bypass. 10. Morbid obesity with body mass index of 44. 11. Peripheral arterial disease with stenting of the left leg. PLAN: The patient is currently comfortable. He does have sleep apnea as well. He gets CPAP. The patient has been noncompliant at times with his treatment regimen. He states he gets short of breath when he ambulates. He is on Coumadin. The patient is on magnesium replacement. He is on Neurontin for his neuropathy. He is receiving Singulair. He is on lisinopril for his hypertension and for his CHF. I will add promethazine for his congestion. Axel Villagomez MD
[2017-02-28] MEDS: Magnesium Oxide 400 mg Tab UD PO SCH ×2 (10:09→18:27)
[2017-02-28] MEDS: Insulin Reg-MEDIUM-Coverage SC SCH ×4 (10:11→22:51)
[2017-02-28] MEDS: Promethazine 6.25 MG/5 ML CUP PO SCH ×3 (10:12→18:26)
[2017-02-28] MEDS: Insulin Detemir 100 units/ml Vial (Levemir) SC SCH ×2 (10:13→18:26)
--- NOTE | 2017-02-28 12:06 | IP.NPCORE ---
Heart Failure Core Measure - Heart Failure Ejection Fraction: Less Than 40 % SID Inhibitor Prescribed: Yes Beta-Giuliana Prescribed: None Contraindication/Reason for not providing: COPD alternative Cardizem Angiotensin II Receptor Giuliana Prescribed: No Contraindication/Reason for not providing: on SID AnticoagulationTherapy for Atrial Fibrillation/Atrialflutter: Yes Aldosterone Antagonist Prescribed: Yes Hydralazine Nitrate Prescribed: No Contraindication/Reason for not providing: on sid Implantable Cardioverter Defibrillator Therapy: Yes Cardiac Resynchronization Therapy Prescribed: Yes - Follow up Will be discharged to: Home Follow Up Date (must be within 7 days from discharge): 03/07/17 (recommended ) Follow Up Time: 09:00
--- NOTE | 2017-02-28 18:57 | PN ---
DATE: 02/28/2017 PULMONARY PROGRESS NOTE REFERRING PHYSICIAN: Dr. Axel Villagomez. SUBJECTIVE: The patient is out of bed to chair. Night was unremarkable. BiPAP last night. No headache. No rhinitis. No nausea. No vomiting. Does have some cough and sputum production. Still has leg swelling, left leg nonhealing ulcer. OBJECTIVE: GENERAL: No acute distress. VITAL SIGNS: Temperature is 98, heart rate is 75, respiratory rate is 20, blood pressure 131/77, pulse oximetry is 96% on 2 liters nasal cannula. HEENT: Moist mucous membranes. Crowded airway. Mallampati score is 4. NECK: Supple. No JVD. LUNGS: Prolonged expiratory phase. HEART: S1 and S2. ABDOMEN: Soft, nontender. No organomegaly. EXTREMITIES: Significant edema. Left lower extremity, nonhealing ulcer. NEUROLOGIC: Awake and alert. Follows simple commands. MEDICATIONS: He is on Aldactone 25 mg twice a day, Amaryl 4 mg daily, Ativan 1 mg twice a day p.r.n., Cardizem 30 mg twice a day, Coumadin 8 mg will be given tonight, trazodone 150 mg daily, DuoNeb q.8 hours, also on insulin coverage, Lasix is 40 mg IV twice a day, Levemir 30 units subq twice a day, magnesium oxide 400 mg twice a day, Neurontin 300 mg twice a day, Protonix 40 mg daily, Percocet is 10/325 mg one tab q.6 hours p.r.n., Phenergan 6.25 three times a day, prednisone is 40 mg daily, Singulair 10 mg daily, Tylenol p.r.n, and Zestril 2.5 mg daily. LABORATORY DATA: Shows hemoglobin 12.3, hematocrit 38.2, WBC 8.5, platelet is 207. INR 1.90. Sodium 140, potassium 3.9, chloride 101, bicarbonate 31, BUN 15, creatinine 0.9, glucose 120, calcium is 8.8. MICROBIOLOGY: Blood culture has been negative, no growth. IMPRESSION AND PLAN: Severe cardiomyopathy, pulmonary hypertension, atrial fibrillation, history of automatic implantable cardioverter defibrillator, history of ablation therapy for persistent atrial fibrillation, chronic obstructive lung disease, obstructive sleep apnea syndrome, diabetes, hypertension, peripheral vascular disease, history of thromboembolic disease requiring thrombectomy in the past. Pulmonary point of view, continue p.o. and inhaled bronchodilator, BiPAP while sleeping reduce the beta-rahat, anticoagulation and gastric prophylaxis. Tia Godinez MD
--- NOTE | 2017-02-28 20:23 | PN ---
DATE: 02/28/2017 REASON FOR CONSULTATION AND FOLLOWUP: Acute decompensated congestive heart failure, [id number] systolic dysfunction, paroxysmal atrial fibrillation, morbid obesity, status post radiofrequency ablation. SUBJECTIVE: The patient denies any chest pain, shortness of breath, or any palpitation. PHYSICAL EXAMINATION GENERAL: Not in apparent distress. VITAL SIGNS: Temperature afebrile, heart rate 75, and blood pressure 114/64. HEENT: PERRLA. Extraocular muscles intact. NECK: Supple. No carotid bruits or thyromegaly. CHEST: Clear to auscultation. HEART: S1 and S2, regular. ABDOMEN: Soft. EXTREMITIES: Clubbing and cyanosis negative. LABORATORY DATA: Blood workup as follows: WBC 8.5, hemoglobin 12.3, hematocrit 38.2, and platelet count 207. Chemistry shows sodium 140, potassium 3.4, chloride 101, carbon dioxide 31, anion gap of , BUN of 15, creatinine 0.7. IMPRESSION: Decompensated congestive heart failure, [id number] secondary to systolic dysfunction, nonischemic cardiomyopathy, status post cardiac catheterization, nonobstructive coronary artery disease, history of paroxysmal atrial fibrillation, status post radiofrequency ablation, history of automatic implantable cardioverter-defibrillator placement. MUGA scan last showed ejection fraction 43%, history of gastric bypass, morbid obesity, history of occlusion of lower extremity artery, history of deep venous thrombosis. The patient was admitted with elevated INR, off anticoagulation. RECOMMENDATION: Restart anticoagulation. started by Dr. Villagomez 5 mg today followed by 3 mg tomorrow. Continue gentle diuretics. Continue to monitor electrolytes. We will follow with you. Possible discharge. Thank you Dr. Villagomez for providing us the opportunity in taking care of the patient, Pete Johnson. Tia Rajan MD
[2017-02-28] MEDS: Oxycodone/Acetaminophen 10/325 mg Tab PO PRN (21:05)
[2017-03-01 07:08] LABS: INR 1.65 (0.93-1.08)
[2017-03-01] MEDS: Albuterol-Ipratrop 3 mg / 0.5 (3 ml) UD IH SCH ×2 (07:21→13:06)
[2017-03-01 07:26] LABS: BLOOD UREA NITROGEN 22 mg/dL (7-21); CARBON DIOXIDE 30 mmol/L (21-33); CHLORIDE 96 mmol/L (98-107); GFR AFRICAN-AMERICAN > 60; GLUCOSE,RANDOM 195 mg/dL (70-110); POTASSIUM 4.2 mmol/L (3.6-5.0); SODIUM 136 mmol/L (132-148)
[2017-03-01] MEDS: Insulin Reg-MEDIUM-Coverage SC SCH ×3 (08:10→17:05)
[2017-03-01] MEDS: Insulin Detemir 100 units/ml Vial (Levemir) SC SCH ×2 (09:31→17:09)
[2017-03-01] MEDS: Promethazine 6.25 MG/5 ML CUP PO SCH ×3 (09:32→17:07)
[2017-03-01] MEDS: Magnesium Oxide 400 mg Tab UD PO SCH ×2 (09:32→17:06)
[2017-03-01 16:25] VITALS: PULSE 70; RESP 18; TEMP 98; O2SAT 98
[2017-03-01 17:10] VITALS: BP 105/76
--- NOTE | 2017-03-01 19:57 | PN ---
DATE: 03/01/2017 REFERRING PHYSICIAN: Axel Villagomez MD. SUBJECTIVE: He is sitting up in a chair. Night was unremarkable. Tolerated BiPAP for 6-1/2 hours. No headaches, no rhinitis, mild cough, no nausea, no vomiting, no diarrhea, does not have leg swelling. Left lower extremity, nonhealing ulcer. PHYSICAL EXAMINATION GENERAL: No acute distress. VITAL SIGNS: Temperature is 98, heart rate 70, respiratory rate is 20, blood pressure 105/76, pulse ox is 98% on 2 L nasal cannula. HEENT: Moist mucous membrane, crowded airway. NECK: Short thick neck. CARDIOPULMONARY: S1 and S2. LUNGS: Fair airflow with few rhonchi. ABDOMEN: Soft and nontender, no organomegaly. EXTREMITIES: Has edema, nonhealing ulcer. NEUROLOGIC: Awake and alert, follows simple commands. MEDICATIONS: He is on Aldactone 25 mg twice a day, Amaryl 4 mg daily, lorazepam 1 mg twice a day p.r.n., Cardizem 30 mg twice a day, Coumadin 8 mg will be given today, albuterol nebulizer q.8 hours, insulin coverage, Lasix 40 mg twice a day, Levemir 30 units subcu twice a day, Lovenox 100 mg subcu q.12 hours, magnesium oxide 400 mg twice a day, Neurontin 300 mg twice a day, Percocet 10/325 one tab q.6 hours p.r.n., Phenergan 6.25 mg 3 times a day, prednisone 10 mg daily, Singulair 10 mg daily, Tylenol p.r.n., Zestril 2.5 mg daily. LABORATORY DATA: Reviewed and shows INR of 1.65. Sodium 136, potassium 4.2, chloride 96, bicarbonate 30, BUN 22, creatinine 0.9, glucose is 195, calcium is 9.0. Microbiology; blood cultures have been negative. IMPRESSION AND PLAN: Severe cardiomyopathy, pulmonary hypertension, atrial fibrillation, history of automatic implantable cardioverter defibrillator, history of ablation therapy for atrial fibrillation, chronic obstructive lung disease, obstructive sleep apnea syndrome, diabetes; hypertension, peripheral vascular disease, history of thromboembolic disease requiring thrombectomy. From pulmonary point of view, continue IV and inhaled bronchodilators. Continue diuretics, after load anesthesiology tech, beta-rahat, encourage bilevel positive airway pressure use, anticoagulation, gastric prophylaxis. Followup labs in the morning. Tia Godinez MD
[2017-03-01] MEDS ORDERED: Enoxaparin 100 mg Syringe SC SCH (20:00)
--- NOTE | 2017-03-01 23:29 | PN ---
DATE: 03/01/2017 LOCATION: The patient in room 564, bed #1. REASON FOR CONSULTATION AND FOLLOWUP: Acute decompensated congestive failure, acute on chronic systolic dysfunction, paroxysmal atrial fibrillation, morbid obesity, status post radiofrequency ablation. SUBJECTIVE: The patient denies any chest pain or palpitation. He says his shortness of breath is also improving. The patient sitting on bedside comfortably at present. PHYSICAL EXAMINATION VITAL SIGNS: Blood pressure 106/68, respirations 18, pulse 70 and the patient is afebrile. HEENT: Head is normocephalic. Eyes; pupils normal, conjunctivae normal. NECK: JVP is low. Carotids are equal. THORAX: AP diameter normal. LUNGS: Clear. CARDIOVASCULAR: S1 and S2. ABDOMEN: Protuberant. EXTREMITIES: No clubbing. No cyanosis. LABORATORY DATA: WBC 8.5, hemoglobin 12.3, hematocrit 38.2 and platelet 207. Sodium 136, potassium 4.2, BUN 22, creatinine 0.9 and calcium 9.0. DIAGNOSES: Decompensated congestive heart failure, acute on chronic secondary to systolic dysfunction, nonischemic cardiomyopathy status post cardiac catheterization, nonobstructive coronary artery disease, paroxysmal atrial fibrillation status post radiofrequency ablation, history of automatic implantable cardioverter defibrillator insertion. Last MUGA scan showed ejection fraction of 43%, history of gastric bypass surgery for morbid obesity, history of occlusion of lower extremity artery, history of deep vein thrombosis. The patient was admitted with increased INR. Anticoagulation was held. PLAN: Anticoagulation has been already started by Dr. Axel Villagomez. We will continue diuretics and other medication. We will monitor electrolytes and BUN. Today's prothrombin time is 18.3, INR 1.65. We will follow with you. Tia Cabello MD
--- NOTE | 2017-03-02 03:18 | DS ---
SUBJECTIVE: The patient has no complaints of any chest pain, shortness of breath, or headache. He was initially admitted to the hospital because of CHF exacerbation along with bronchitis. The patient has improvement of his symptoms. He is going to the Transitional Care Unit for rehab. PHYSICAL EXAMINATION: VITAL SIGNS: Temperature is 98.2, pulse is 73, blood pressure is 149/96, and respirations are 16. GENERAL: The patient is lying in bed, flat, comfortable. HEENT: No oral lesion. Anicteric sclerae. Moist mucosa. NECK: No JVD, adenopathy, or thyromegaly. CARDIOVASCULAR: S1 and S2, regular. No murmurs, rubs, or gallops. LUNGS: Clear to auscultation bilaterally. No wheeze, rales, or rhonchi. ABDOMEN: Bowel sounds are positive, soft, nontender and nondistended. EXTREMITIES: No cyanosis, clubbing or edema. ASSESSMENT: 1. Bronchitis. 2. Acute chronic obstructive pulmonary disease. 3. Acute congestive heart failure secondary to systolic dysfunction. 4. Diabetes type 2. 5. Hypertension. 6. Peripheral arterial disease. 7. Atrial fibrillation, on Coumadin. 8. Automatic implantable cardioverter-defibrillator. 9. Gastric bypass. 10. Obesity with body mass index of 44. 11. Peripheral arterial disease with stenting of the left leg. PLAN: The patient is currently comfortable. He is subtherapeutic on his Coumadin and I have increased his Coumadin dosage to 8 mg from 5 mg. He is on Levemir for his diabetes. The patient is on promethazine. He is going to continue with prednisone. He is on lisinopril for his hypertension. I will put him on Lovenox until he is therapeutic again. Axel Villagomez MD
== END 2017-03-01 18:58 | DRG 190 ==
LOC: ED 18:37 → ERH 21:02 → 3RSO 22:14 → OBSVTOIN 02-26 06:43 → 5RNO 02-27 17:00
PROVIDERS: ADMIT Internal Medicine Nephrology; ATTEND Internal Medicine Nephrology
DX: J44.1 Chronic obstructive pulmonary disease with (acute) exacerbation (principal); I50.23 Acute on chronic systolic (congestive) heart failure; I27.20 Pulmonary hypertension, unspecified; I48.0 Paroxysmal atrial fibrillation; E66.01 Morbid (severe) obesity due to excess calories; E11.51 Type 2 diabetes mellitus with diabetic peripheral angiopathy without gangrene; E83.42 Hypomagnesemia; I48.1 Persistent atrial fibrillation; I42.9 Cardiomyopathy, unspecified; Z68.41 Body mass index [BMI] 40.0-44.9, adult; E78.5 Hyperlipidemia, unspecified; F31.9 Bipolar disorder, unspecified; G47.33 Obstructive sleep apnea (adult) (pediatric); I11.0 Hypertensive heart disease with heart failure; I25.10 Atherosclerotic heart disease of native coronary artery without angina pectoris; R79.1 Abnormal coagulation profile; Z79.01 Long term (current) use of anticoagulants; Z86.718 Personal history of other venous thrombosis and embolism; Z87.891 Personal history of nicotine dependence; Z91.14 Patient's other noncompliance with medication regimen; Z91.19 Patient's noncompliance with other medical treatment and regimen; Z95.5 Presence of coronary angioplasty implant and graft; Z95.810 Presence of automatic (implantable) cardiac defibrillator; Z98.84 Bariatric surgery status; Z99.81 Dependence on supplemental oxygen; Z87.892 Personal history of anaphylaxis; Z88.8 Allergy status to other drugs, medicaments and biological substances; Z91.018 Allergy to other foods

== ENCOUNTER 2017-03-01 19:03 | Inpatient (IN) | payer OTHER ==
[2017-03-01] MEDS: Albuterol-Ipratrop 3 mg / 0.5 (3 ml) UD IH SCH (19:47)
[2017-03-01] MEDS: Oxycodone/Acetaminophen 10/325 mg Tab PO PRN (20:22)
[2017-03-01] MEDS: Insulin Reg-MEDIUM-Coverage SC SCH (21:37)
[2017-03-01] MEDS: Insulin Detemir 100 units/ml Vial (Levemir) SC SCH (21:38)
[2017-03-01] MEDS ORDERED: Enoxaparin 100 mg Syringe SC SCH (22:00)
[2017-03-01 22:33] VITALS: BMI 41.8
[2017-03-02] MEDS: Insulin Reg-MEDIUM-Coverage SC SCH ×4 (06:44→22:27)
[2017-03-02] MEDS: Albuterol-Ipratrop 3 mg / 0.5 (3 ml) UD IH SCH ×3 (07:20→20:34)
[2017-03-02] MEDS: Insulin Detemir 100 units/ml Vial (Levemir) SC SCH ×2 (09:03→22:24)
[2017-03-02] MEDS: Magnesium Oxide 400 mg Tab UD PO SCH ×2 (09:04→17:21)
[2017-03-02] MEDS: Promethazine 6.25 MG/5 ML CUP PO SCH ×3 (09:05→17:22)
--- NOTE | 2017-03-02 12:43 | PN ---
DATE: 03/02/2017 SUBJECTIVE: The patient has no complaints of any chest pain. No shortness of breath. No headaches. The initial H and P was reviewed and I do agree with. PHYSICAL EXAMINATION: VITAL SIGNS: The patient has a temperature of 97.3, pulse of 69, blood pressure is 121/77, respirations 18, O2 saturation 97%. GENERAL: The patient is lying in bed, flat, comfortable. HEENT: No oral lesion. Anicteric sclerae. Moist mucosa. NECK: No JVD, adenopathy, or thyromegaly. CARDIOVASCULAR: S1 and S2, regular. No murmurs, rubs, or gallops. LUNGS: Clear to auscultation bilaterally. No wheeze, rales, or rhonchi. ABDOMEN: Bowel sounds are positive, soft, nontender and nondistended. EXTREMITIES: no cyanosis, clubbing or edema. ASSESSMENT: 1. Bronchitis. 2. Acute chronic obstructive pulmonary disease exacerbation, improved. 3. Acute congestive heart failure secondary to systolic dysfunction, improved. 3. Peripheral arterial disease with stenting in the left leg. 4. Diabetes type 2. 5. Hypertension. 6. Atrial fibrillation, on Coumadin. 7. Automatic implantable cardioverter defibrillator. 8. Gastric bypass. 9. Obesity with a body mass index of 44. PLAN: The patient is currently comfortable and the patient is currently on Aldactone. The patient on Amaryl for his diabetes. The patient is on Coumadin for anticoagulation. The patient is on trazodone for sleeping. The patient is on Lasix twice a day. The patient is on Levemir for his diabetes. The patient is on Lovenox for anticoagulation. We will continue the patient on magnesium. The patient's INR is 2.0 and is therapeutic. I will discontinue the patient's Lovenox. The patient is on cough medication. The patient is on his prednisone. I will give him prednisone for 2 more days and then discontinue. The patient will be followed by Dr. Godinez. Axel Villagomez MD
[2017-03-02] MEDS: Oxycodone/Acetaminophen 10/325 mg Tab PO PRN (22:27)
--- NOTE | 2017-03-02 22:39 | CON ---
DATE: 03/02/2017 LOCATION: The patient in room 304, bed 1. REASON FOR CONSULTATION: Decompensated congestive heart failure, acute on chronic systolic dysfunction, paroxysmal atrial fibrillation, morbid obesity, cardiomyopathy, and deconditioning. HISTORY OF PRESENT ILLNESS: The patient is 56-year-old male, who is known to have congestive heart failure due to cardiomyopathy and paroxysmal atrial fibrillation status post radiofrequency ablation and very noncompliant patient, not taking medication, admitted with shortness of breath and swelling of legs. On medical floor was found to have CHF and treated and now he is admitted to Transitional Care Unit for deconditioning and Physical Therapy. The patient denies any chest pain or palpitation. He is complaining cough. PAST MEDICAL HISTORY: Significant for cardiac catheterization 2 to 3 times, which showed nonobstructive coronary artery disease, history of cardiomyopathy, history of alcohol abuse, history of tobacco abuse, noncompliance with medications, history of AICD insertion at [facility] by Dr. Bonilla. The patient also has history of ablation for paroxysmal atrial fibrillation. PAST SURGICAL HISTORY: Significant for gastric bypass surgery, history of thrombectomy due to acute occlusion of the left lower extremity artery, history of AICD insertion, history of cardiac catheterization 2 to 3 times, nonobstructive coronary artery disease, history of ablation for paroxysmal atrial fibrillation. PREVIOUS CARDIAC WORKUP: The patient recently had MUGA scan which showed ejection fraction of 43%, normal RV compared to the previous studies, it showed improvement in LV dysfunction. The patient had cardiac catheterization 2 to 3 time in the past at least two at [facility], one was in 2014, it showed normal coronary arteries. EDP in the range of 30, history of atrial fibrillation, history of CORA cardioversion, history of AICD at [facility] along with radiofrequency ablation by Dr. Bonilla. The patient maintaining sinus rhythm. Echo on 08/15/2016 showed mildly dilated LV function and decreased ejection fraction of 25%, moderately dilated RV with dysfunction, moderately decreased systolic function PERSONAL HISTORY: The patient stated that he stopped smoking and he stopped drinking. ALLERGIES: NO KNOWN ALLERGIES. REVIEW OF SYSTEMS: All the system reviewed positive mentioned in history, otherwise negative. HOME MEDICATIONS: The patient is not taking any medication, but he was supposed to be taking on Cardizem, metformin, lisinopril, glimepiride, gabapentin, furosemide, cilostazol and Coumadin. Also trazodone, but the patient is a poor compliant patient, does not take any medication. PHYSICAL EXAMINATION VITAL SIGNS: Blood pressure 118/77, respirations 18, pulse 70, temperature 97.6. HEENT: Head is normocephalic. Eyes: Pupils normal. Conjunctiva normal. NECK: JVP low. Carotid equal. THORAX: AP diameter normal. LUNGS: Clear. CARDIOVASCULAR: S1 and S2. ABDOMEN: Protuberant. No organomegaly. EXTREMITIES: No clubbing, no cyanosis. LABORATORY DATA: WBC 8.5, hemoglobin 12.3, hematocrit 38.2, platelet 207. Random sugar today 72. On 02/28/2017; sodium 140, potassium 3.9, BUN 12, creatinine 0.9. Random sugar was 120, calcium 8.8. Chest x-ray on 12/26/2016 showed changes consistent with mild CHF. EKG on 02/25/2017 showed pacemaker rhythm. DIAGNOSES: Decompensated congestive heart failure, acute on chronic on medical floor which has improved, congestive heart failure due to acute on chronic left ventricular systolic dysfunction, cardiomyopathy, diabetes, hypertension, hyperlipidemia, morbid obesity, status post automatic implantable cardioverter-defibrillator insertion, status post ablation for paroxysmal atrial fibrillation, poor compliant, the patient does not take medicine, history of alcohol abuse, history of tobacco abuse, nonobstructive coronary artery disease and cardiac catheterization, history of gastric bypass surgery, history of peripheral arterial disease, history of embolectomy, history of deep venous thrombosis, and deconditioning. PLAN: The patient continue physical therapy for deconditioning and the patient on spironolactone 25 mg b.i.d., Amaryl 4 mg p.o. daily, Cardizem 30 mg p.o. b.i.d., warfarin 3 mg p.o. daily, trazodone 150 mg p.o. at bedtime, DuoNeb hand nebulizer therapy, insulin as ordered, Lasix 40 mg IV b.i.d., magnesium oxide 400 mg b.i.d., Neurontin 300 mg p.o. b.i.d., prednisone 40 mg daily, Singulair 10 mg at bedtime, lisinopril 2.5 mg daily. We will continue physical therapy and we will follow with you Tia Cabello MD [facility] # [id number]
--- NOTE | 2017-03-03 05:08 | CON ---
PULMONARY CONSULT DATE: 03/02/2017 REFERRING PHYSICIAN: Axel Villagomez MD REASON FOR CONSULTATION: Chronic obstructive lung disease, obstructive sleep apnea syndrome. HISTORY OF PRESENT ILLNESS: This is a 56-year-old male, well known to me from previous admission, has a severe cardiomyopathy; AICD; history of atrial fibrillation, requiring ablation therapy; chronic obstructive lung disease; obstructive sleep apnea syndrome; thromboembolic disease, requiring thrombectomy; hypertension; diabetes; and remote past substance abuse, came into acute side of the hospital with leg swelling, shortness of breath, pleural effusion, presently admitted to TICU for continued care. He is out of bed to chair, tolerated the BiPAP well last night, still short of breath with leg swelling. PAST MEDICAL HISTORY: As per history of present illness. SOCIAL HISTORY: Stopped smoking. History of substance abuse in the remote past. No history of alcohol abuse. FAMILY HISTORY: No significant cardiopulmonary disease reported. ALLERGIES: ALLERGIC TO QUETIAPINE AND ALSO ALLERGY TO FRUIT BERRIES AND WILD BERRIES. MEDICATIONS: He is on Aldactone 25 mg twice a day; glimepiride 4 mg daily; lorazepam 1 mg twice a day p.r.n.; Cardizem 30 mg twice a day; Coumadin 8 mg daily; trazodone 150 mg at bedtime; DuoNeb q.3 hours; insulin coverage; Lasix 40 mg twice a day; Levemir 30 units twice a day; mag oxide 400 mg twice a day; Neurontin 300 mg twice a day; Percocet 10/325 mg q.6 hours p.r.n.; promethazine p.r.n. q. 8 hours; prednisone 40 mg daily; Singulair 10 mg daily; Tylenol p.r.n.; Zestril 2.5 mg daily. REVIEW OF SYSTEMS: No headache. No rhinitis. He gets short of breath. No nausea. No vomiting. No diarrhea. No abdominal pain. No dysuria. Still have leg swelling, left lower extremity nonhealing ulcer. PHYSICAL EXAMINATION: GENERAL: Sitting up, in no acute distress. VITAL SIGNS: Temperature is 98, heart rate is 70, respiratory rate is 18, blood pressure 105/68, pulse oximetry is 96% on nasal cannula. HEENT: Moist mucous membrane. Crowded airway. Mallampati score is 4. NECK: Short, thick neck. LUNGS: Fair airflow with a few rhonchi. HEART: S1 and S2. ABDOMEN: Soft, nontender. No organomegaly. EXTREMITIES: He has edema of both lower extremities. Left leg has a nonhealing ulcer. NEUROLOGIC: Awake, alert, follows simple commands. LABORATORY DATA: Shows hemoglobin 12.3, hematocrit 38.2, WBC 8.5, platelet is 207. INR 2.0. Blood sugar 72. Blood culture has been negative. IMPRESSION AND PLAN: Severe cardiomyopathy, pulmonary hypertension, atrial fibrillation, history of automatic implantable cardioverter defibrillator placement, history of ablation therapy for atrial fibrillation, chronic obstructive lung disease, obstructive sleep apnea syndrome, diabetes, hypertension, peripheral vascular disease, history of thromboembolic disease, requiring thrombectomy. Pulmonary point of view, doing okay. Continue p.o. and inhaled bronchodilator. Encourage BiPAP use. Keep head at 45 degrees. Diuretics. Beta-blockers. Fall precaution. Thank you and we will follow with you. Tia Godinez MD
[2017-03-03] MEDS: Insulin Reg-MEDIUM-Coverage SC SCH ×4 (06:36→23:13)
[2017-03-03] MEDS: Albuterol-Ipratrop 3 mg / 0.5 (3 ml) UD IH SCH ×3 (08:14→20:39)
[2017-03-03] MEDS: Promethazine 6.25 MG/5 ML CUP PO SCH ×3 (10:01→17:33)
[2017-03-03] MEDS: Magnesium Oxide 400 mg Tab UD PO SCH ×2 (10:01→17:33)
[2017-03-03] MEDS: Insulin Detemir 100 units/ml Vial (Levemir) SC SCH ×2 (10:01→23:16)
--- NOTE | 2017-03-03 20:51 | PN ---
DATE: 03/03/2017 LOCATION: The patient is in room 304, bed 1. REASON FOR CONSULTATION: Followup, decompensated congestive heart failure, acute on chronic systolic dysfunction, paroxysmal atrial fibrillation, morbid obesity, cardiomyopathy, and deconditioning. SUBJECTIVE: The patient denies any chest pain, palpitation. He says that he gets shortness of breath on exertion, but he says it is improving. PHYSICAL EXAMINATION: VITAL SIGNS: Blood pressure 99/75, earlier was 123/72; respirations 18; pulse 78; and temperature of 97.6. HEAD: Normocephalic. EYES: Pupils normal. Conjunctivae normal. NECK: JVP low. Carotids are equal. THORAX: AP diameter normal. LUNGS: No rales. CARDIOVASCULAR: S1 and S2. ABDOMEN: Protuberant. No organomegaly. EXTREMITIES: No clubbing. No cyanosis. LABORATORY DATA: Prothrombin time 22.3, INR 2.0. Other labs are done on medical floor, and they were reported in our notes in the medical floor. DIAGNOSES: Decompensated congestive heart failure, acute on chronic systolic dysfunction; cardiomyopathy,diabetes, hypertension, hyperlipidemia, morbid obesity, status post automatic implantable cardioverter-defibrillator insertion, status post ablation, paroxysmal atrial fibrillation, poor-compliant patient, obesity, history of alcohol abuse, history of tobacco abuse, nonobstructive coronary artery disease, on cardiac catheterization, history of gastric bypass surgery for obesity, history of peripheral vascular disease, history of embolectomy, history of deep vein thrombosis, and deconditioning. The patient also has chronic obstructive pulmonary disease and obstructive sleep apnea being followed by Dr. Godinez, Pulmonary. PLAN: We will continue physical therapy for deconditioning, and the patient to continue spironolactone, Cardizem, warfarin 5 mg and 3 mg p.o. daily, Lasix 40 IV b.i.d., magnesium 400 mg b.i.d., Neurontin 300 b.i.d., prednisone 40 daily, Singulair 10 mg at bedtime, lisinopril 2.5 mg daily. We will continue . Tia Cabello MD
--- NOTE | 2017-03-04 00:13 | PN ---
PULMONARY PROGRESS NOTE DATE: 03/03/2017 REFERRING PHYSICIAN: Axel Villagomez MD SUBJECTIVE: He is out of bed to chair. Family is at bedside. Feels better today, tolerated CPAP for 6 hours or so, able to walk within the hallway with the help of cane. No headache. No rhinitis. No nausea. No vomiting. No diarrhea. Decreased leg swelling. OBJECTIVE: VITAL SIGNS: Temperature is 98, heart rate 78, respiratory rate is 20, blood pressure 102/69, pulse ox 97% on BiPAP. HEENT: Moist mucous membranes. Crowded airway. Mallampati score is IV. NECK: Supple. No JVD. LUNGS: Has a fair airflow with few rhonchi. HEART: S1 and S2. ABDOMEN: Soft, nontender, no organomegaly. EXTREMITY: Has edema, has Juni wraps. NEUROLOGICALLY: Awake, alert, follows simple command. MEDICATIONS: He is on Aldactone 25 mg twice a day, Amaryl 4 mg daily, lorazepam 1 mg twice a day p.r.n., Cardizem 30 mg twice a day, Coumadin 5 mg daily, note 8 mg will be given today, trazodone 150 mg daily, DuoNeb q. 8 hours, Lasix 40 mg twice a day, Levemir 30 units subcutaneous twice a day, magnesium oxide 400 mg twice a day, gabapentin 300 mg twice a day, Percocet 10/325, 1 tablet q. 4 hours p.r.n., promethazine 6.25 mg three times a day, prednisone 40 mg daily, Singulair 10 mg daily, Tylenol p.r.n. basis, and Zestril 2.5 mg daily. LABORATORY DATA: Reviewed. Blood sugar this morning is 317. IMPRESSION AND PLAN: Severe cardiomyopathy, pulmonary hypertension, atrial fibrillation, history of automatic implantable cardioverter-defibrillator, history of ablation therapy for atrial fibrillation, chronic obstructive lung disease, obstructive sleep apnea syndrome, diabetes, hypertension, peripheral vascular disease, history of thromboembolic disease; requiring thrombectomy, nonhealing left leg ulcer. Pulmonary point of view, doing okay. Continue BiPAP while sleeping, keep head at 45 degrees, p.o. and inhaled bronchodilator, anticoagulation, diuretics, beta-rahat, fall precaution. Continue therapy. Thank you and we will follow with you. Tia Godinez MD [facility] # [id number]
--- NOTE | 2017-03-04 01:42 | PN ---
DATE: SUBJECTIVE: The patient is 56-year-old, seen and examined. Sitting in chair. Seems to be comfortable. Complaint of back pain and leg pain. Otherwise, doing well. No shortness of breath. No nausea. No vomiting. No diarrhea. Eating and tolerating. Ambulates with mild shortness of breath. PHYSICAL EXAMINATION: VITAL SIGNS: He is afebrile, pulse 60, respirations 18, and blood pressure 102/69. LUNGS: Bilateral fair airflow. HEART: S1 and S2 audible. ABDOMEN: Soft, nontender, obese. No hepatosplenomegaly. NEUROLOGIC: He is awake, alert, oriented. EXTREMITIES: Bilateral leg he has ulcer, they are dressed. LABORATORY DATA: PT 22.3, INR 2.0. ASSESSMENT: 1. Morbid obesity. 2. Coronary artery disease. 3. Severe peripheral vascular disease. 4. Bilateral leg diabetic ulcer. 5. Congestive heart failure acute on chronic, systolic. 6. Dilated cardiomyopathy. 7. Insulin-dependent diabetes. 8. Hyperlipidemia. 9. Status post defibrillator placement. 10. Paroxysmal atrial fibrillation. PLAN: Currently, the patient is on spironolactone, glimepiride. The patient is on Coumadin. Now order for PT/INR in a.m. Encourage ambulation, local wound care will be continued. Ridge Velazquez MD
[2017-03-04] MEDS: Insulin Reg-MEDIUM-Coverage SC SCH ×4 (06:48→21:56)
[2017-03-04 07:30] LABS: INR 2.56 (0.93-1.08)
[2017-03-04] MEDS: Albuterol-Ipratrop 3 mg / 0.5 (3 ml) UD IH SCH ×3 (07:31→19:57)
[2017-03-04] MEDS: Promethazine 6.25 MG/5 ML CUP PO SCH ×3 (10:26→17:11)
[2017-03-04] MEDS: Magnesium Oxide 400 mg Tab UD PO SCH ×2 (10:26→17:11)
[2017-03-04] MEDS: Insulin Detemir 100 units/ml Vial (Levemir) SC SCH ×2 (11:00→21:57)
--- NOTE | 2017-03-04 18:31 | PN ---
PULMONARY PROGRESS NOTE DATE: 03/04/2017 REFERRING PHYSICIAN: Axel Villagomez MD. SUBJECTIVE: He is ambulating in the room. Night was unremarkable. He used CPAP for 6 to 7 hours. Has some cough and sputum. No nausea. No vomiting. No diarrhea. Decreased leg swelling, has nonhealing left leg ulcer. OBJECTIVE: GENERAL: In no acute distress. VITAL SIGNS: Temperature 98, heart rate is 80, respiratory rate is 20, blood pressure is 128/70, and pulse oximetry is 97% on 2 L nasal cannula. HEENT: Moist mucous membranes. Crowded airway. Mallampati score 4. NECK: Short, thick neck. LUNGS: Have a few scattered rhonchi. HEART: S1 and S2. ABDOMEN: Soft, nontender. No organomegaly. EXTREMITIES: Decreased edema, left leg nonhealing ulcer. NEUROLOGICAL: Awake and alert, follows simple commands. MEDICATIONS: He is on Aldactone 25 mg twice a day; glimepiride 4 mg daily; Ativan 1 mg twice a day p.r.n. for anxiety; also on Cardizem 30 mg twice a day; Coumadin will be given 8 mg today; trazodone 150 mg daily; Duoneb q. 8 hour; insulin coverage; Lasix 40 mg twice a day; Levemir 30 units subcutaneous twice a day; magnesium oxide 400 mg twice a day; gabapentin 300 mg twice a day; Percocet 10/325 mg one tab q. 6 hours p.r.n.; promethazine 6.25 mg three times a day; Singulair 10 mg daily; Tylenol p.r.n. basis; Zestril 2.5 mg daily. LABORATORY DATA: Shows INR today 2.56, blood sugar is 108. IMPRESSION AND PLAN: Severe cardiomyopathy; pulmonary hypertension; atrial fibrillation, history of automatic implantable cardioverter defibrillator, history of ablation therapy for atrial fibrillation; chronic obstructive lung disease; obstructive sleep apnea syndrome; diabetes; hypertension; peripheral vascular disease; nonhealing left leg ulcer; history of thromboembolic disease, requiring thrombectomy in the remote past. Pulmonary point of view, doing okay. Continue CPAP while sleeping, keep head at 45 degrees, inhaled bronchodilator, p.o. bronchodilator, anticoagulation, gastric prophylaxis, fall precaution. Continue therapy. Thank you and we will follow with you. Tia Godinez MD [facility] # [id number]
--- NOTE | 2017-03-04 21:41 | PN ---
DATE: SUBJECTIVE: The patient is a 56-year-old, seen and examined, sitting in chair. Denies any nausea or vomiting or diarrhea. Complains of having dryness in the nose, asking for saline mist. PHYSICAL EXAMINATION: VITAL SIGNS: The patient is afebrile, pulse 70, respirations 18, blood pressure 120/ . LUNGS: Bilateral good airflow. No rhonchi or crackles. HEART: S1, S2 audible. ABDOMEN: Soft. Obese, nontender. No rebound. No guarding. NEUROLOGIC: The patient is awake, alert, oriented, communicative, ambulatory. Bilateral legs have healing resendiz ulcer and granulating well. LABORATORY DATA: PT 28.7 and INR 2.56. ASSESSMENT: 1. Morbid obesity. 2. Chronic atrial fibrillation. 3. Cardiomyopathy. 4. History of drug abuse, alcohol abuse and heavy smoking in the past. 5. Chronic obstructive pulmonary disease. 6. Severe peripheral vascular disease, status post bypass surgery. 7. Dilated cardiomyopathy. 8. Insulin-dependent diabetes. 9. Status post defibrillator placement. PLAN: Medications reviewed and we will continue all that. We will continue same dose of Coumadin. Follow up PT/INR in . Ridge Velazquez MD
--- NOTE | 2017-03-04 22:17 | PN ---
DATE: 03/04/2017 LOCATION: The patient is in room 304, bed 1. REASON FOR CONSULTATION: Decompensated congestive heart failure, acute on chronic, systolic dysfunction, paroxysmal atrial fibrillation, morbid obesity, cardiomyopathy, deconditioning. SUBJECTIVE: The patient denies any chest pain or palpitations. His shortness of breath on exertion also shows improvement. The patient is sitting in chair, comfortably at present. PHYSICAL EXAMINATION VITAL SIGNS: Blood pressure 120/78, respirations 18, pulse 70, temperature 97.2. HEENT: Head is normocephalic. Eyes; pupils are normal. Conjunctivae normal. Nose and throat normal. NECK: JVP low. Carotid equal. THORAX: AP diameter normal. LUNGS: No significant rales. CARDIOVASCULAR: S1, S2. ABDOMEN: Protuberant. No organomegaly. EXTREMITIES: No clubbing. No cyanosis. LABORATORY DATA: Prothrombin time 28.7 with an INR 2.56. Other labs are done on medical floor and they were put in the progress notes, which were done on the medical floor. DIAGNOSES: Decompensated congestive heart failure, acute on chronic, left ventricular dysfunction, cardiomyopathy, diabetes, hypertension, hyperlipidemia, morbid obesity, status post automatic implantable cardioverter-defibrillator insertion, status post ablation, paroxysmal atrial fibrillation, poor compliant, the patient has obesity, history of alcohol abuse, history of tobacco abuse, nonobstructive coronary artery disease on cardiac catheterization, history of gastric bypass surgery for obesity, peripheral vascular disease, history of thrombectomy, history of deep vein thrombosis, chronic obstructive pulmonary disease, obstructive sleep apnea, deconditioning. The patient was on spironolactone, Amaryl, diltiazem, warfarin total of 8 mg daily; 5 plus 3 mg, furosemide 40 IV b.i.d., insulin as ordered, mag oxide 400 b.i.d., Neurontin 300 mg b.i.d., promethazine 6.25 p.o. t.i.d., Singulair 10 mg p.o. at bedtime, Zestril 2.5 mg daily. We will continue physical therapy for deconditioning and continue to follow with you. Tia Cabello MD
[2017-03-05] MEDS: Insulin Reg-MEDIUM-Coverage SC SCH ×4 (06:37→21:43)
[2017-03-05] MEDS: Albuterol-Ipratrop 3 mg / 0.5 (3 ml) UD IH SCH ×3 (07:21→19:35)
[2017-03-05] MEDS: Magnesium Oxide 400 mg Tab UD PO SCH ×2 (10:38→17:33)
[2017-03-05] MEDS: Promethazine 6.25 MG/5 ML CUP PO SCH ×3 (10:38→17:32)
[2017-03-05] MEDS: Insulin Detemir 100 units/ml Vial (Levemir) SC SCH ×2 (11:27→21:29)
--- NOTE | 2017-03-05 13:38 | CP.PCM.PN ---
<Fidelina Chiu - Last Filed: 03/05/17 16:56> Subjective - Date & Time of Evaluation Date of Evaluation: 03/05/17 Time of Evaluation: 08:00 - Subjective Subjective: PGY-[address] Villagomez Pt states that he is tolerating rehab exercise. no acute complaint Objective - Vital Signs/Intake and Output Vital Signs (last 24 hours): Temp Pulse Resp BP Pulse Ox 97.6 F 69 18 130/82 97 03/03/17 06:00 03/05/17 10:38 03/03/17 06:00 03/05/17 10:38 03/04/17 22:06 Intake and Output: 03/05/17 03/05/17 06:59 18:59 Intake Total 740 Output Total 4 Balance 736 - Medications Medications: Current Medications Acetaminophen (Tylenol 325mg Tab) 650 mg PO Q4H PRN; Protocol PRN Reason: Fever >100.4 F Albuterol/Ipratropium (Duoneb 3 Mg/0.5 Mg (3 Ml) Ud) 3 ml IH TIDRESP WILTON PRN Reason: Protocol Last Admin: 03/05/17 07:21 Dose: 3 ml Diltiazem HCl (Cardizem) 30 mg PO BID WILTON PRN Reason: Protocol Last Admin: 03/05/17 10:37 Dose: 30 mg Furosemide (Lasix) 40 mg IVP 0800,1400 WILTON PRN Reason: Protocol Last Admin: 03/05/17 08:41 Dose: 40 mg Gabapentin (Neurontin) 300 mg PO BID WILTON PRN Reason: Protocol Last Admin: 03/05/17 10:36 Dose: 300 mg Glimepiride (Amaryl) 4 mg PO DAILY WILTON PRN Reason: Protocol Last Admin: 03/05/17 10:37 Dose: 4 mg Insulin Detemir (Levemir) 30 unit SC 1000,2200 WILTON PRN Reason: Protocol Last Admin: 03/05/17 11:27 Dose: 30 unit Insulin Human Regular (Humulin R Med) 0 units SC ACHS WILTON PRN Reason: Protocol Last Admin: 03/05/17 12:00 Dose: Not Given Lisinopril (Zestril) 2.5 mg PO DAILY WILTON PRN Reason: Protocol Last Admin: 03/05/17 10:38 Dose: 2.5 mg Lorazepam (Ativan) 1 mg PO BID PRN; Protocol PRN Reason: Anxiety Last Admin: 03/04/17 21:58 Dose: 1 mg Magnesium Oxide (Mag-Ox) 400 mg PO BID WILTON PRN Reason: Protocol Last Admin: 03/05/17 10:38 Dose: 400 mg Montelukast Sodium (Singulair) 10 mg PO HS WILTON PRN Reason: Protocol Last Admin: 03/04/17 21:58 Dose: 10 mg Mupirocin (Bactroban Ointment) 0 gm TOP DAILY WILTON PRN Reason: Protocol Last Admin: 03/05/17 10:37 Dose: 1 applic Oxycodone/Acetaminophen (Percocet 10/325 Mg Tab) 1 tab PO Q6H PRN; Protocol PRN Reason: Pain, severe (8-10) Last Admin: 03/02/17 22:27 Dose: 1 tab Promethazine HCl (Phenergan Syrup) 6.25 mg PO TID WILTON PRN Reason: Protocol Last Admin: 03/05/17 10:38 Dose: 6.25 mg Sodium Chloride (Bacon Nasal [place]) 0 ml NS Q6H PRN PRN Reason: Nasal congestion Spironolactone (Aldactone) 25 mg PO BID WILTON PRN Reason: Protocol Last Admin: 03/05/17 10:37 Dose: 25 mg Trazodone HCl (Desyrel) 150 mg PO HS WILTON PRN Reason: Protocol Last Admin: 03/04/17 21:56 Dose: 150 mg Warfarin Sodium (Coumadin) 5 mg PO 1800 WILTON PRN Reason: Protocol Last Admin: 03/04/17 17:11 Dose: 5 mg Warfarin Sodium (Coumadin) 3 mg PO 1800 WILTON PRN Reason: Protocol Last Admin: 03/04/17 17:10 Dose: 3 mg - Labs Labs: PT 28.7 SECONDS (9.4-12.5) H 03/04/17 06:45 INR 2.56 (0.93-1.08) H 03/04/17 06:45 - Constitutional Appears: No Acute Distress - Head Exam Head Exam: ATRAUMATIC, NORMAL INSPECTION, NORMOCEPHALIC - Eye Exam Eye Exam: EOMI, Normal appearance, PERRL - ENT Exam ENT Exam: Mucous Membranes Moist - Neck Exam Additional comments: supple - Respiratory Exam Respiratory Exam: Clear to Ausculation Bilateral - Cardiovascular Exam Cardiovascular Exam: REGULAR RHYTHM, +S1, +S2 - GI/Abdominal Exam GI & Abdominal Exam: Soft, Normal Bowel Sounds. absent: Tenderness - Extremities Exam Extremities Exam: absent: Calf Tenderness Additional comments: [place] wrapped b/l - Neurological Exam Neurological Exam: Alert, Awake - Psychiatric Exam Psychiatric exam: Normal Affect, Normal Mood - Skin Skin Exam: Dry, Normal Color Assessment and Plan - Assessment and Plan (Free Text) Plan: 56M with PMH of noncompliance and systolic CHF due to cardiomyopathy and paroxysmal a fib s/p AICD, Hx gastric bypass surgery, Hx LLE arterial embolectomy and stent, Hx DVT was admitted to hospital with shortness of breath and swelling of legs. He was found the have COPD exacerbation vs decompensated congestive heart failure due to acute on chronic systolic CHF. He was transferred to TCU on 03/01. 1. Bronchitis - promethazine 6.25 TID, ocean spray 2. Acute COPD exacerbation, improved - Duoneb TID, Singulair 10 HS - CPAP HS 10/15 3. CHF -MUGA 2016, EF 43; Echo 07/2016, dilated LV, dilated RV, EF 25% - laxis 40 IV BID, spironolactone 25 bid - CXR pending 4. A-fib, Coumadin and AICD - Diltiazem 30 bid, warfarin 8mg this pm?, daily INR 5 HTN - Lisinopril 2.5 6. PAD with stent in L leg Chronic left leg ulcer - Gabapentin 300 bid, mupirocin ointment 7. Diabetes 2 - amaryl 4 daily, Levemir 30 BID, ISSS-med 8. S/p gastric bypass 9. Obesity BMI 44 10. Depression - Trazodone HS, Ativan PRN Mg-Ox 400 BID Consults Cardiology - Dr. Satinder Oro - Dr. Godinez <Axel Villagomez S - Last Filed: 03/05/17 19:48> Objective - Vital Signs/Intake and Output Vital Signs (last 24 hours): Temp Pulse Resp BP Pulse Ox 97.5 F L 69 18 107/64 100 03/05/17 17:59 03/05/17 17:59 03/05/17 17:59 03/05/17 17:59 03/05/17 17:59 - Medications Medications: Current Medications Acetaminophen (Tylenol 325mg Tab) 650 mg PO Q4H PRN; Protocol PRN Reason: Fever >100.4 F Albuterol/Ipratropium (Duoneb 3 Mg/0.5 Mg (3 Ml) Ud) 3 ml IH TIDRESP WILTON PRN Reason: Protocol Last Admin: 03/05/17 19:35 Dose: Not Given Diltiazem HCl (Cardizem) 30 mg PO BID WILTON PRN Reason: Protocol Last Admin: 03/05/17 17:33 Dose: 30 mg Furosemide (Lasix) 40 mg IVP 0800,1400 WILTON PRN Reason: Protocol Last Admin: 03/05/17 14:32 Dose: 40 mg Gabapentin (Neurontin) 300 mg PO BID WILTON PRN Reason: Protocol Last Admin: 03/05/17 17:32 Dose: 300 mg Glimepiride (Amaryl) 4 mg PO DAILY WILTON PRN Reason: Protocol Last Admin: 03/05/17 10:37 Dose: 4 mg Insulin Detemir (Levemir) 30 unit SC 1000,2200 WILTON PRN Reason: Protocol Last Admin: 03/05/17 11:27 Dose: 30 unit Insulin Human Regular (Humulin R Med) 0 units SC ACHS WILTON PRN Reason: Protocol Last Admin: 03/05/17 17:26 Dose: Not Given Lisinopril (Zestril) 2.5 mg PO DAILY WILTON PRN Reason: Protocol Last Admin: 03/05/17 10:38 Dose: 2.5 mg Lorazepam (Ativan) 1 mg PO BID PRN; Protocol PRN Reason: Anxiety Last Admin: 03/05/17 14:49 Dose: 1 mg Magnesium Oxide (Mag-Ox) 400 mg PO BID WILTON PRN Reason: Protocol Last Admin: 03/05/17 17:33 Dose: 400 mg Montelukast Sodium (Singulair) 10 mg PO HS WILTON PRN Reason: Protocol Last Admin: 03/04/17 21:58 Dose: 10 mg Mupirocin (Bactroban Ointment) 0 gm TOP DAILY WILTON PRN Reason: Protocol Last Admin: 03/05/17 10:37 Dose: 1 applic Promethazine HCl (Phenergan Syrup) 6.25 mg PO TID WILTON PRN Reason: Protocol Last Admin: 03/05/17 17:32 Dose: 6.25 mg Sodium Chloride (Bacon Nasal [place]) 0 ml NS Q6H PRN PRN Reason: Nasal congestion Spironolactone (Aldactone) 25 mg PO BID WILTON PRN Reason: Protocol Last Admin: 03/05/17 17:33 Dose: 25 mg Trazodone HCl (Desyrel) 150 mg PO HS WILTON PRN Reason: Protocol Last Admin: 03/04/17 21:56 Dose: 150 mg Warfarin Sodium (Coumadin) 5 mg PO 1800 WILTON PRN Reason: Protocol Last Admin: 03/05/17 17:33 Dose: 5 mg Warfarin Sodium (Coumadin) 3 mg PO 1800 WILTON PRN Reason: Protocol Last Admin: 03/05/17 17:33 Dose: 3 mg - Labs Labs: PT 28.7 SECONDS (9.4-12.5) H 03/04/17 06:45 INR 2.56 (0.93-1.08) H 03/04/17 06:45 Assessment and Plan - Assessment and Plan (Free Text) Plan: Pt seen and examined.Pain under control. Pt is able to tolerate PO diet. Pt's labs and vitals have been reviewed. I agree with the medical assistant per diem note. He is breathing better. The pt is using a cane for ambulation.
--- NOTE | 2017-03-05 13:54 | PN ---
DATE: 03/05/2017 LOCATION: The patient is in room 304, bed 1. REASON FOR CONSULTATION: Decompensated congestive heart failure acute on chronic, systolic dysfunction, paroxysmal atrial fibrillation, morbid obesity, cardiomyopathy, and deconditioning. SUBJECTIVE: The patient is still complains of shortness of breath on exertion, but no chest pain, no palpitation. The patient is getting physical therapy for the deconditioning. PHYSICAL EXAMINATION: VITAL SIGNS: Blood pressure 130/82, respirations 18, pulse 69, and the patient is afebrile. HEENT: Head is normocephalic. Eyes; pupils are normal. Conjunctivae normal. Nose and throat normal. NECK: JVP low. Carotid equal. THORAX: AP diameter normal. LUNGS: Clear. CARDIOVASCULAR: S1 and ABDOMEN: Protuberant. No organomegaly. EXTREMITIES: No clubbing. No cyanosis. LABORATORY DATA: Laboratory work done 02/27/2017 and they were reported on our previous notes. Today's fingerstick sugar is 104. Yesterday prothrombin was 28.7 with an INR of 2.56. DIAGNOSES: Decompensated congestive heart failure, acute on chronic, left ventricular dysfunction, cardiomyopathy, diabetes, hypertension, hyperlipidemia, morbid obesity, status post automatic implantable cardioverter-defibrillator insertion, status post ablation, paroxysmal atrial fibrillation, poor compliant patient, obesity, history of alcohol abuse and tobacco abuse, nonobstructive coronary artery disease on cardiac catheterization, history of gastric bypass surgery for obesity, peripheral vascular disease, history of thrombectomy, history of deep vein thrombosis, chronic obstructive pulmonary disease, obstructive sleep apnea, and deconditioning. PLAN: The patient is still on Lasix 40 IV b.i.d. along with warfarin, Neurontin, Singulair, and Zestril. We are going to repeat chest x-ray and repeat CBC, SMA-7, magnesium, and phosphorus in the morning and we will follow with you. Tia Cabello MD
--- NOTE | 2017-03-05 16:47 | RAD ---
HISTORY: Compare to see improvement of CHF. COMPARISON: No prior. TECHNIQUE: Chest PA and lateral FINDINGS: LUNGS: No active pulmonary disease. PLEURA: No significant pleural effusion identified. No pneumothorax apparent. CARDIOVASCULAR: Normal heart size. No congestive change. AICD noted. OSSEOUS STRUCTURES: No significant abnormalities. VISUALIZED UPPER ABDOMEN: Normal. OTHER FINDINGS: None. IMPRESSION: No evidence of congestive heart failure/ pulmonary edema.
[2017-03-06 06:45] LABS: BASO # 0.1 K/mm3 (0.0-2.0); BASO % 0.8 % (0.0-3.0); EOS # 0.2 (0.0-0.7); EOS % 1.5 % (1.5-5.0); GRAN # 8.83 (1.4-6.5); GRAN % 69.7 % (50.0-68.0); HEMATOCRIT 40.1 % (42.0-52.0); LYMPH # 2.8 (1.2-3.4); LYMPH % 21.7 % (22.0-35.0); MEAN CELL VOLUME 87.9 fl (80.0-105.0); MEAN CORPUSCULAR HEMOGLOBIN 28.7 pg (25.0-35.0); MEAN CORPUSCULAR HGB CONC 32.7 g/dl (31.0-37.0); MEAN PLATELET VOLUME 9.6 fl (7.0-11.0); MONO # 0.8 (0.1-0.6); MONO % 6.3 % (1.0-6.0); RED CELL DISTRIBUTION WIDTH 14.7 % (11.5-14.5); WHITE BLOOD COUNT 12.7 10^3/ul (4.5-11.0)
[2017-03-06 07:11] LABS: BLOOD UREA NITROGEN 29 mg/dL (7-21); CALCIUM 9.4 mg/dL (8.4-10.5); CARBON DIOXIDE 34 mmol/L (21-33); CHLORIDE 96 mmol/L (98-107); GFR AFRICAN-AMERICAN > 60; GLUCOSE,RANDOM 108 mg/dL (70-110); PHOSPHOROUS 4.5 mg/dL (2.5-4.5); POTASSIUM 4.3 mmol/L (3.6-5.0); SODIUM 138 mmol/L (132-148)
[2017-03-06] MEDS: Albuterol-Ipratrop 3 mg / 0.5 (3 ml) UD IH SCH ×2 (07:15→13:07)
[2017-03-06 07:39] LABS: INR 2.79 (0.93-1.08)
[2017-03-06] MEDS: Insulin Reg-MEDIUM-Coverage SC SCH ×4 (07:58→22:29)
[2017-03-06] MEDS: Insulin Detemir 100 units/ml Vial (Levemir) SC SCH ×2 (10:34→22:38)
[2017-03-06] MEDS: Magnesium Oxide 400 mg Tab UD PO SCH ×2 (10:35→17:35)
[2017-03-06] MEDS: Promethazine 6.25 MG/5 ML CUP PO SCH ×3 (10:35→17:35)
--- NOTE | 2017-03-06 17:15 | PN ---
DATE: REASON FOR CONSULTATION AND FOLLOWUP: Decompensated congestive heart failure acute on chronic, systolic dysfunction, paroxysmal atrial fibrillation, morbid obesity, nonischemic cardiomyopathy, and deconditioning of the body. SUBJECTIVE: Denies any chest pain, shortness of breath or any palpitation. Feeling better. OBJECTIVE: GENERAL: Not in apparent distress. VITAL SIGNS: As follows, temperature afebrile, heart rate 65, and blood pressure 119/74. HEENT: PERRLA intact. NECK: Supple. No carotid bruits or thyromegaly. CHEST: Clear to auscultation. HEART: S1 and S2, regular. ABDOMEN: Soft. EXTREMITIES: Clubbing and cyanosis negative. 1+ pedal edema. LABORATORY DATA: WBC 12.7, hemoglobin 13.1, hematocrit 40.1, and platelet count 190. Chemistry shows sodium 130, potassium 4.3, chloride 96, carbon dioxide 34, anion gap 12, BUN 29, and creatinine 0.9. IMPRESSION: Paroxysmal atrial fibrillation, status post radiofrequency ablation, nonischemic cardiomyopathy status post automated implantable cardioverter defibrillator, morbid obesity, noncompliance with medication, and history of gastric bypass. RECOMMENDATIONS: Continue spironolactone. Continue Cardizem. Continue Coumadin compliance with medication. INR 2.79. Follow with PT, INR. We will follow with you. We will cut down the Coumadin dose to 6 mg. We will discontinue 3 mg of Coumadin and put 6 mg from today. Tia Rajan MD
--- NOTE | 2017-03-07 05:35 | PN ---
DATE: 03/06/2017 PULMONARY PROGRESS NOTE REFERRING PHYSICIAN: Dr. Axel Villagomez SUBJECTIVE: He is ambulating in the room. Night was unremarkable. Tolerated CPAP 4 to 5 hours last night. No headache. No rhinitis. No nausea. Cough is better. No dysuria. Decreased leg swelling. Still have nonhealing ulcer. PHYSICAL EXAMINATION GENERAL: In no acute distress. VITAL SIGNS: Temperature is 98, heart rate is 73, respiratory rate is 20, blood pressure is 116/75, and pulse oximetry is 100% on nasal cannula. HEENT: Moist mucous membranes. Crowded airway. Mallampati score is 4. NECK: Supple. No JVD. LUNGS: Has a fair airflow with rhonchi. HEART: S1 and S2. ABDOMEN: Soft, nontender, no organomegaly. EXTREMITIES: Has decreased edema. Has Juni wraps, left leg wound is improving. NEUROLOGIC: Awake, alert, follows simple command. MEDICATIONS: He is on Aldactone 25 mg twice a day, glimepiride 4 mg daily, Ativan 1 mg twice a day p.r.n., Bactroban affected area, Cardizem 30 mg twice a day, Coumadin 6 mg, trazodone 150 mg at bedtime, DuoNeb q. 8 hours, insulin coverage, Lasix 40 mg twice a day, Levemir 30 units subcu twice a day, magnesium oxide 400 mg twice a day, Neurontin 300 mg twice a day, nasal saline to each nostril q 8 hours p.r.n., promethazine 6.25 mg 3 times a day, Singulair 10 mg daily, Tylenol p.r.n., Zestril 2.5 mg daily. LABORATORY DATA: Shows hemoglobin 13.1, hematocrit 40.1, WBC 12.7, platelet is 190, INR 2.79, sodium 138, potassium 4.3, chloride 96, bicarbonate 34, BUN 29, creatinine 0.9, glucose 200, calcium is 9.4, phosphorus is 4.5, magnesium is 2.0. Chest x-ray done yesterday shows no evidence of congestion or pulmonary edema. IMPRESSION AND PLAN: Severe cardiomyopathy, pulmonary hypertension, atrial fibrillation, history of automatic implantable cardioverter defibrillator, history of ablation therapy for atrial fibrillation, chronic obstructive lung disease, obstructive sleep apnea syndrome, diabetes, hypertension, peripheral vascular disease, non-healing left leg ulcer, thromboembolic disease requiring thrombectomy in the past. From pulmonary point of view, doing okay. Encourage CPAP use. Keep head at 45 degrees. Bronchodilator. Continue diuretics, beta-rahat, reduce her fall precaution, encourage CPAP use. Thank you, and we will follow with you. Tia Godinez MD
[2017-03-07 06:13] LABS: INR 2.67 (0.93-1.08)
[2017-03-07] MEDS: Insulin Reg-MEDIUM-Coverage SC SCH ×4 (06:54→22:01)
[2017-03-07] MEDS: Albuterol-Ipratrop 3 mg / 0.5 (3 ml) UD IH SCH ×2 (07:32→13:37)
[2017-03-07] MEDS: Magnesium Oxide 400 mg Tab UD PO SCH ×2 (10:59→17:40)
[2017-03-07] MEDS: Promethazine 6.25 MG/5 ML CUP PO SCH ×3 (11:00→17:40)
[2017-03-07] MEDS: Insulin Detemir 100 units/ml Vial (Levemir) SC SCH ×2 (11:05→21:51)
--- NOTE | 2017-03-07 13:17 | PN ---
DATE: 03/07/2017 LOCATION: The patient is in room 313, bed 2. REASON FOR CONSULTATION AND FOLLOWUP: Decompensated congestive heart failure acute on chronic, systolic dysfunction, paroxysmal atrial fibrillation, morbid obesity, nonischemic cardiomyopathy, and deconditioning. SUBJECTIVE: The patient is getting physical therapy without any chest pain. He states breathing also is improving. He denies any palpitation. PHYSICAL EXAMINATION: VITAL SIGNS: Blood pressure 117/80, respirations 20, pulse 76, and the patient is afebrile. HEENT: Head is normocephalic. Eyes; pupils are normal. Conjunctivae normal. Nose and throat normal. NECK: JVP low. Carotid equal. THORAX: AP diameter normal. LUNGS: No rales. CARDIOVASCULAR: S1 and S2. ABDOMEN: Soft. No tenderness. No organomegaly. EXTREMITIES: No clubbing. No cyanosis. LABORATORY DATA: WBC 12.7, hemoglobin 13.1, hematocrit 40.1, and platelet 190. Sodium 138, potassium 4.3, BUN 29, creatinine 0.9, random sugar 125, glucose 108, calcium 9.4, phosphorus 4.5, and magnesium 2.0. Chest x-ray done on the 03/05/2017 on previous x-ray has cleared. DIAGNOSES: Decompensated congestive heart failure acute on chronic, left ventricular systolic dysfunction, paroxysmal atrial fibrillation, status post radiofrequency ablation, nonischemic cardiomyopathy, status post automatic implantable cardioverter-defibrillator insertion, morbid obesity, noncompliant with medication, history of gastric bypass surgery for obesity. PLAN: Prothrombin time 30.0. INR 2.67, which is therapeutic. The patient is on Lasix 40 IV b.i.d., we will stop that and put 40 p.o. b.i.d., chest x-ray has cleared now, spironolactone 25 b.i.d., Amaryl 4 mg daily, diltiazem 30 mg b.i.d., warfarin 6 mg p.o. daily, insulin as ordered, magnesium 400 b.i.d., Neurontin 300 mg b.i.d., Singulair 10 mg at bedtime, and lisinopril 2.5 mg p.o. daily. We will follow. Tia Cabello MD [facility] # [id number]
--- NOTE | 2017-03-07 20:23 | PN ---
PULMONARY PROGRESS NOTE DATE: 03/07/2017 REFERRING PHYSICIAN: Axel Villagomez MD SUBJECTIVE: He is out of bed to chair. Night was unremarkable. Part of the night used CPAP. No headache. No rhinitis. Occasional palpitation. No nausea. No vomiting. No diarrhea. Leg swelling is better. Still has nonhealing ulcer, which is painful. OBJECTIVE: GENERAL: In no acute distress. VITAL SIGNS: Temperature is 98, heart rate is 76, respiratory rate is 20, and blood pressure is 100/64. HEENT: Moist mucous membranes. Crowded airway. NECK: Supple. No JVD. LUNGS: Has a fair airflow with few rhonchi. HEART: S1 and S2. ABDOMEN: Soft and nontender. No organomegaly. EXTREMITIES: Not much edema, has Juni wraps and left leg has nonhealing ulcer. NEUROLOGIC: Awake, alert, and follow simple commands. MEDICATIONS: He is on Aldactone 25 mg twice a day, glipizide 4 mg daily, lorazepam 1 mg twice a day p.r.n., Cardizem 30 mg twice a day, Coumadin 6 mg daily, trazodone 50 mg daily, DuoNeb q.6 hours p.r.n., Lasix 40 mg twice a day, magnesium oxide 400 mg twice a day, Neurontin 300 mg twice a day, nasal saline four times daily, Singulair 10 mg daily, Tylenol p.r.n., and Zestril 2.5 mg daily. LABORATORY DATA: Reviewed shows INR 2.67. Blood sugar this morning 125. IMPRESSION AND PLAN: Severe cardiomyopathy, pulmonary hypertension, atrial fibrillation, history of automatic implantable cardioverter-defibrillator, history of ablation therapy for atrial fibrillation, chronic obstructive lung disease, obstructive sleep apnea syndrome, diabetes, hypertension, peripheral vascular disease with nonhealing left leg ulcer, and history of thromboembolic disease, requiring thrombectomy. Pulmonary point of view, encourage CPAP use, keep degrees, p.o. 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 Thank you and we will follow with you. Tia Godinez MD
[2017-03-08] MEDS: Insulin Reg-MEDIUM-Coverage SC SCH ×4 (07:03→22:39)
[2017-03-08] MEDS: Albuterol-Ipratrop 3 mg / 0.5 (3 ml) UD IH SCH ×3 (07:21→20:09)
[2017-03-08 07:59] LABS: INR 2.16 (0.93-1.08)
[2017-03-08] MEDS: Promethazine 6.25 MG/5 ML CUP PO SCH ×3 (09:45→17:29)
[2017-03-08] MEDS: Insulin Detemir 100 units/ml Vial (Levemir) SC SCH ×2 (09:47→22:35)
[2017-03-08] MEDS: Magnesium Oxide 400 mg Tab UD PO SCH ×2 (09:48→17:29)
--- NOTE | 2017-03-08 19:57 | PN ---
PULMONARY PROGRESS NOTE DATE: 03/05/2017 REFERRING PHYSICIAN: Axel Villagomez MD SUBJECTIVE: The patient is ambulating in the room, used BiPAP over 4 hour or so. No headache. No rhinitis. Still has some cough. No nausea. No vomiting. No diarrhea. Decreased leg swelling. PHYSICAL EXAMINATION: GENERAL: In no acute distress. VITAL SIGNS: Temperature is 98, heart rate is 69, respiratory rate is 18, blood pressure is 107/64, and pulse oximetry is 100% on 2 L nasal cannula. HEENT: Moist mucous membranes. Crowded airway. NECK: Supple. No JVD. LUNGS: Has a few scattered rhonchi. HEART: S1 and S2. ABDOMEN: Soft and nontender. No organomegaly. EXTREMITIES: There is edema, has SID wraps on the left leg, nonhealing ulcer. NEUROLOGIC: Awake and alert. Follows simple commands. MEDICATIONS: He is on Aldactone 25 mg twice a day, glimepiride 4 mg daily, Ativan 1 mg twice a day p.r.n., Cardizem 30 mg twice a day, Coumadin 8 mg daily, trazodone 150 mg daily, DuoNeb q.8 hours, insulin coverage, Lasix 40 mg twice a day, Levemir 30 units subcutaneously twice a day, magnesium oxide 400 mg twice a day, gabapentin 300 mg twice a day, promethazine 6.25 mg three times a day, Singulair 10 mg at bedtime, Tylenol p.r.n., and Zestril 2.5 mg daily. LABORATORY DATA: Shows blood sugar 251. Chest x-ray done today shows no infiltrate or effusion. IMPRESSION AND PLAN: Severe cardiomyopathy, pulmonary hypertension, atrial fibrillation, history of automatic implantable cardioverter-defibrillator, history of ablation therapy for atrial fibrillation, chronic obstructive lung disease, obstructive sleep apnea syndrome, diabetes, hypertension, peripheral vascular disease, nonhealing left foot ulcer, and history of thromboembolic disease, requiring thrombectomy. Pulmonary point of view, doing okay. Continue bronchodilator. Keep head at 45 degrees. Continue CPAP, anticoagulation, gastric prophylaxis, and continue therapy. Thank you and we will follow with you. Tia Godinez MD
--- NOTE | 2017-03-08 21:20 | PN ---
DATE: SUBJECTIVE: The patient is a 56-year-old, seen and examined, sitting in chair. Does not offer any complaint. No nausea or vomiting or diarrhea. Ambulating. No chest pain. No shortness of breath. PHYSICAL EXAMINATION: VITAL SIGNS: He is afebrile, pulse 71, respirations 18, blood pressure 121/75. LUNGS: Bilateral good airflow. No rhonchi or crackles. HEART: S1, S2 audible. ABDOMEN: Soft and nontender. No rebound. No guarding. NEUROLOGIC: The patient is awake, alert, oriented, able to communicate. LABORATORY DATA: Blood sugar is 215. ASSESSMENT: 1. Bilateral leg ulcer healing and granulating. 2. Morbid obesity. 3. Chronic atrial fibrillation. 4. Insulin-dependent diabetes. 5. History of chronic obstructive pulmonary disease. 6. Coronary artery disease status post angioplasty. 7. Bilateral leg angioplasty. LABORATORY DATA: His PT today is 24.1, INR 2.16. PLAN: We will continue the patient on current medication. Continue on current dose of Coumadin. We will follow up PT/INR intermittently. Discharge plan for a.m. Ridge Velazquez MD
--- NOTE | 2017-03-08 22:25 | PN ---
DATE: 03/08/2017 LOCATION: The patient is in room 313, bed 2. REASON FOR CONSULTATION AND FOLLOWUP: Decompensated congestive heart failure acute on chronic, LV systolic dysfunction, paroxysmal atrial fibrillation, morbid obesity, nonischemic cardiomyopathy and deconditioning. SUBJECTIVE: The patient is sitting in chair without any chest pain, shortness of breath or palpitations. He is getting physical therapy. He says, his shortness of breath has improved. PHYSICAL EXAMINATION: VITAL SIGNS: Blood pressure is 121/75, respirations 18, pulse 71, temperature 97.5. HEENT: Head is normocephalic. Eyes; pupils are normal. Conjunctivae normal. Nose and throat normal. NECK: JVP low. Carotid equal. THORAX: AP diameter normal. LUNGS: Clear. CARDIOVASCULAR: S1 and S2. ABDOMEN: Soft. No tenderness. No organomegaly. Bowel sounds normal. EXTREMITIES: No clubbing. No cyanosis. Previously, there was edema in the legs, has completely cleared. LABORATORY DATA: The patient's sugar is 161. Other labs were done on 03/06/2017 and they were reported on his previous note. DIAGNOSES: Decompensated congestive heart failure, acute on chronic; left ventricular systolic dysfunction; paroxysmal atrial fibrillation, status post radiofrequency ablation; non-ischemic cardiomyopathy, status post automatic implantable cardioverter-defibrillator insertion; morbid obesity; noncompliant with medication; history of gastric bypass surgery; obesity. PLAN: The patient's prothrombin time today is 24.1 with INR of 2.16, which is therapeutic. The patient will continue present therapy and was changed his Lasix to 40 b.i.d. yesterday because congestive heart failure has cleared and advised the patient to follow outpatient and continue to take medications regularly. We will follow. Tia Cabello MD
--- NOTE | 2017-03-08 22:44 | PN ---
DATE: 03/08/2017 PULMONARY PROGRESS NOTE REFERRING PHYSICIAN: Axel Villagomez MD SUBJECTIVE: He is out of bed to chair, having dinner. Night was unremarkable. All the night, using CPAP. No headache. No rhinitis. No nausea. No vomiting. No diarrhea. Decreased leg swelling. OBJECTIVE: GENERAL: In no acute distress. VITAL SIGNS: Temp is 98, heart rate 69, respiratory rate is 18, blood pressure 100/64, and pulse ox 95% on room air. HEENT: Moist mucous membranes. Crowded airway. NECK: Supple. No JVD. LUNGS: Have a fair airflow with few rhonchi. HEART: S1 and S2. ABDOMEN: Soft and nontender. No organomegaly. EXTREMITIES: No edema. Left leg has a non-healing ulcer. NEUROLOGIC: Awake and alert. Follows simple commands. MEDICATIONS: He is on Aldactone 25 mg twice a day, glimepiride 4 mg daily, Ativan 1 mg twice a day p.r.n., Bactroban to affected area, Cardizem 30 mg twice a day, Coumadin 6 mg daily, also order trazodone 150 mg daily, DuoNeb q. 8 hours, insulin coverage, Lasix 40 mg twice a day, Levemir 30 units twice a day, magnesium oxide 400 mg twice a day, gabapentin 300 mg twice a day, promethazine 6.25 mg 3 times a day, Singulair 10 mg daily, Tylenol p.r.n. basis, and Zestril 2.5 mg daily. LABORATORY DATA: Reviewed and noted. INR 2.16 today, blood sugar is 161. IMPRESSION AND PLAN: Cardiomyopathy, pulmonary hypertension, atrial fibrillation, history of automatic implantable cardioverter defibrillator,history of ablation therapy for atrial fibrillation, chronic obstructive lung disease, obstructive sleep apnea syndrome, diabetes, hypertension, peripheral vascular disease, non-healing left leg ulcer, history of thromboembolic disease requiring thrombectomy in the remote past. Pulmonary point of view, doing well. Continue Singulair, p.r.n. inhaled bronchodilator. Encourage CPAP use. Gastric prophylaxis. Continue anticoagulation, fall precaution. Thank you and we will follow with you. Tia Godinez MD
[2017-03-09 06:49] VITALS: RESP 20; TEMP 97.9; O2SAT 96
[2017-03-09] MEDS: Albuterol-Ipratrop 3 mg / 0.5 (3 ml) UD IH SCH (07:32)
[2017-03-09] MEDS: Insulin Reg-MEDIUM-Coverage SC SCH ×2 (07:45→11:24)
[2017-03-09] MEDS: Insulin Detemir 100 units/ml Vial (Levemir) SC SCH (09:42)
[2017-03-09] MEDS: Promethazine 6.25 MG/5 ML CUP PO SCH (09:42)
[2017-03-09] MEDS: Magnesium Oxide 400 mg Tab UD PO SCH (09:45)
[2017-03-09 12:32] VITALS: BP 106/86; PULSE 81
--- NOTE | 2017-03-09 17:20 | PN ---
DATE: 03/09/2017 LOCATION: The patient is in room 313, bed 2. REASON FOR CONSULTATION AND FOLLOWUP: Decompensated congestive heart failure acute on chronic, LV systolic dysfunction, paroxysmal atrial fibrillation, morbid obesity, nonischemic cardiomyopathy and deconditioning. SUBJECTIVE: The patient denied any chest pain, shortness of breath or palpitation. His shortness of breath has improved compared to since admission. He has been getting physical therapy without any cardiac symptoms. His swelling legs has also cleared up and on chest x-ray initially had CHF, which on repeat x-ray also showing clear lungs. PHYSICAL EXAMINATION: VITAL SIGNS: Blood pressure 102/65, respirations 20, pulse 80, and temperature 97.9. HEENT: Head is normocephalic. Eyes: Pupils normal. Conjunctivae normal. Nose and throat normal. NECK: JVP low. Carotids equal. THORAX: AP diameter normal. LUNGS: Clear. CARDIOVASCULAR: S1 and S2. ABDOMEN: Soft. No tenderness. No organomegaly. Protuberant abdomen. EXTREMITIES: No clubbing. No cyanosis. LABORATORY DATA: Lab work was done on 03/06/2017 and was reported in our previous notes; however, today's sugar is 239. DIAGNOSES: Decompensated congestive heart failure acute on chronic, left ventricular systolic dysfunction, paroxysmal atrial fibrillation, status post radiofrequency ablation, nonischemic cardiomyopathy, status post automatic implantable cardioverter-defibrillator insertion, morbid obesity, noncompliant with medication, history of gastric bypass surgery for obesity in the past, and deconditioning. PLAN: The patient's CHF has improved. We will continue present therapy and again give instruction the patient do not stop medicine and take medicines regularly, but in the past, he has been very noncompliant with medication and followup. Tia Cabello MD
--- NOTE | 2017-03-09 21:53 | PN ---
DATE: 03/09/2017 PULMONARY PROGRESS NOTE REFERRING PHYSICIAN: Axel Vlilagomez MD SUBJECTIVE: He is sitting at the side of the bed, will be currently going home today, just lost his brother day before. No headache. No rhinitis. No nausea. No vomiting. No diarrhea. No leg swelling. Still has a nonhealing ulcer in the left lower extremity. OBJECTIVE: GENERAL: In no acute distress. VITAL SIGNS: Temp is 98, heart rate is 81, respiratory rate is 20, blood pressure 106/86, pulse ox 96% on 2 L nasal cannula. HEENT: Moist mucous membranes. Crowded airway. NECK: Supple. No JVD. LUNGS: There is fair airflow with a few rhonchi. HEART: S1 and S2. ABDOMEN: Soft and nontender. No organomegaly. EXTREMITIES: No edema. He has a left leg ulcer. NEUROLOGIC: Awake and alert. Follows simple commands. MEDICATIONS: Reviewed and noted. No new change in medication is reported since yesterday. LABORATORY DATA: Reviewed. Blood sugar this morning is 239. IMPRESSION AND PLAN: Cardiomyopathy, pulmonary hypertension, atrial fibrillation, history of automatic implantable cardioverter defibrillator, history of ablation therapy for atrial fibrillation, chronic obstructive lung disease, obstructive sleep apnea syndrome, diabetes, hypertension, peripheral vascular disease, non-healing left leg ulcer, thromboembolic disease in the past requiring thrombectomy. Pulmonary point of view, doing well. Continue bronchodilator, anticoagulation, fall precaution. Recommended followup in the office to reassess for CPAP/BiPAP requirement. The patient expressed understanding. Thank you and we will follow up in the office. Tia Godinez MD
--- NOTE | 2017-03-10 02:28 | DS ---
HISTORY OF PRESENT ILLNESS: The patient is a 56-year-old patient of Dr. Villagomez who was admitted because of bilateral leg ulcers and pain. The patient has extensive past medical history significant for: 1. Hypertension. 2. Chronic AFib. 3. Severe peripheral vascular disease, status post angioplasty. 4. Status post pacemaker and defibrillator placement. 5. Insulin-dependent diabetes. 6. Morbid obesity. 7. COPD. 8. Obstructive sleep apnea. 9. History of drug abuse in the past. The patient remains in TCU and go to Wound Care and remained on antibiotic. Blood sugar was control. He stay was uneventful. PHYSICAL EXAMINATION: GENERAL: Today; he is awake, alert, oriented, and communicative. VITAL SIGNS: He is afebrile, pulse 81, respirations 20, and blood pressure 106/86. LUNGS: Bilateral fair airflow. No rhonchi or crackle. HEART: S1 and S2 audible. ABDOMEN: Soft, nontender, and obese. No hepatosplenomegaly. NEUROLOGICAL: He is awake, alert, oriented, and communicative. LABORATORY DATA: Blood sugar 239. ASSESSMENT: 1. Morbid obesity. 2. Sleep apnea. 3. Chronic obstructive pulmonary disease. 4. Chronic atrial fibrillation. 5. Peripheral vascular disease. PLAN: The patient is being discharged home today. He is advised to have diabetic low-salt diet. He will continue his trazodone, diltiazem, Singulair, metformin, lisinopril, Ativan, glimepiride, gabapentin, Lasix, and Pletal. He will follow up with Dr. iVllagomez as an outpatient. Ridge Velazquez MD
== END 2017-03-09 12:20 | disposition home or self-care (01) | DRG 190 ==
LOC: TRCU 19:03
PROVIDERS: ADMIT Internal Medicine Nephrology; ATTEND Internal Medicine Nephrology
PROC: F07Z9ZZ Gait Training/Functional Ambulation Treatment (ICD-10-PCS; principal; 2017-03-02)
PROC: F08Z4ZZ Home Management Treatment (ICD-10-PCS; 2017-03-02)
PROC: 3E0F7GC Introduction of Other Therapeutic Substance into Respiratory Tract, Via Natural or Artificial Opening (ICD-10-PCS; 2017-03-02)
DX: J44.1 Chronic obstructive pulmonary disease with (acute) exacerbation (principal); I50.23 Acute on chronic systolic (congestive) heart failure; I27.20 Pulmonary hypertension, unspecified; E11.51 Type 2 diabetes mellitus with diabetic peripheral angiopathy without gangrene; E11.621 Type 2 diabetes mellitus with foot ulcer; E66.01 Morbid (severe) obesity due to excess calories; Z68.41 Body mass index [BMI] 40.0-44.9, adult; L97.919 Non-pressure chronic ulcer of unspecified part of right lower leg with unspecified severity; L97.929 Non-pressure chronic ulcer of unspecified part of left lower leg with unspecified severity; I42.0 Dilated cardiomyopathy; I11.0 Hypertensive heart disease with heart failure; E11.622 Type 2 diabetes mellitus with other skin ulcer; I25.10 Atherosclerotic heart disease of native coronary artery without angina pectoris; I48.0 Paroxysmal atrial fibrillation; I48.2 Chronic atrial fibrillation; G47.33 Obstructive sleep apnea (adult) (pediatric); E78.5 Hyperlipidemia, unspecified; L97.529 Non-pressure chronic ulcer of other part of left foot with unspecified severity; Z79.01 Long term (current) use of anticoagulants; Z91.14 Patient's other noncompliance with medication regimen; Z79.4 Long term (current) use of insulin; Z91.19 Patient's noncompliance with other medical treatment and regimen; Z86.718 Personal history of other venous thrombosis and embolism; Z95.810 Presence of automatic (implantable) cardiac defibrillator; Z98.84 Bariatric surgery status; Z87.891 Personal history of nicotine dependence; Z98.61 Coronary angioplasty status

== ENCOUNTER 2017-03-31 15:58 | Inpatient (IN) | payer MEDICARE, OTHER ==
[2017-03-31 15:58] VITALS: PULSE 74
[2017-03-31 16:37] VITALS: BMI 40.6
[2017-03-31 17:27] LABS: BASO # 0.03 K/mm3 (0.0-2.0); BASO % 0.3 % (0.0-3.0); EOS # 0.1 (0.0-0.7); EOS % 1.3 % (1.5-5.0); GRAN # 7.39 (1.4-6.5); GRAN % 77.1 % (50.0-68.0); HEMOGLOBIN 12.4 g/dL (14.0-18.0); LYMPH # 1.6 (1.2-3.4); LYMPH % 16.6 % (22.0-35.0); MEAN CELL VOLUME 85.4 fl (80.0-105.0); MEAN CORPUSCULAR HEMOGLOBIN 28.3 pg (25.0-35.0); MEAN CORPUSCULAR HGB CONC 33.2 g/dl (31.0-37.0); MEAN PLATELET VOLUME 10.2 fl (7.0-11.0); MONO # 0.5 (0.1-0.6); MONO % 4.7 % (1.0-6.0); RBC 4.38 10^6/uL (3.5-6.1); RED CELL DISTRIBUTION WIDTH 14.7 % (11.5-14.5); WHITE BLOOD COUNT 9.6 10^3/ul (4.5-11.0)
[2017-03-31 17:41] LABS: ALB/GLOB RATIO 1.4 (1.1-1.8); ALBUMIN 4.1 g/dL (3.0-4.8); ALT/SGPT 39 U/L (7-56); AST/SGOT 28 U/L (17-59); BLOOD UREA NITROGEN 20 mg/dL (7-21); CALCIUM 9.4 mg/dL (8.4-10.5); GFR AFRICAN-AMERICAN > 60; GFR NON-AFRICAN AMERICAN > 60; MAGNESIUM 1.5 mg/dL (1.7-2.2)
[2017-03-31 17:46] LABS: INR 1.62 (0.93-1.08); PROTHROMBIN TIME 18.7 SECONDS (9.4-12.5)
[2017-03-31 17:52] LABS: B-TYPE NATRIURETIC PEPTIDE 661 pg/mL (0-450); TROPONIN I 0.05 ng/mL
[2017-03-31] MEDS ORDERED: Morphine 4 mg/ml ISec IVP STA (18:38)
--- NOTE | 2017-03-31 18:53 | ED PDOC ---
Arrival/HPI - General Chief Complaint: Abnormal Skin Integrity Time Seen by Provider: 03/31/17 16:26 Historian: Patient - History of Present Illness Narrative History of Present Illness (Text): 03/31/17 16:35 A 56 year old male, whose past medical history includes COPD, CAD, CHF, cardiomyopathy, atrial fibrillation with AICD, and tobacco use, presents to the emergency department complaining of lower left wound for several months. Patient reports also experiencing with chest pain for several months as well. Denies of any fever, cough, nausea, vomiting, or any other complaints. PMD: Dr. Villagomez Time/Duration: Other (several months ) Symptom Onset: Sudden, Gradual Symptom Course: Unchanged Past Medical History - Provider Review Nursing Documentation Reviewed: Yes - Infectious Disease Hx of Infectious Diseases: None - Tetanus Immunization Tetanus Immunization: Unknown - Cardiac Hx Cardiac Disorders: Yes Hx Hypertension: Yes - Pulmonary Hx Chronic Obstructive Pulmonary Disease (COPD): Yes - Neurological Hx Dizziness: Yes - HEENT Hx HEENT Disorder: Yes (admits using glasses) - Renal Hx Renal Disorder: No - Endocrine/Metabolic Hx Diabetes Mellitus Type 2: Yes - Hematological/Oncological Hx Blood Disorders: No - Integumentary Hx Dermatological Disorder: No - Musculoskeletal/Rheumatological Hx Falls: No - Gastrointestinal Hx Gastrointestinal Disorders: No - Genitourinary/Gynecological Hx Genitourinary Disorders: No - Psychiatric Hx Anxiety: Yes Hx Bipolar Disorder: Yes Hx Depression: Yes Hx Substance Use: Yes (COCAINE, QUIT 25 YRS AGO) - Past Surgical History Past Surgical History: Non-Contributing - Surgical History Hx Cardiac Catheterization: Yes Hx Coronary Stent: Yes Hx Gastric Bypass Surgery: Yes - Anesthesia Hx Anesthesia: Yes Hx Anesthesia Reactions: No Hx Malignant Hyperthermia: No - Suicidal Assessment Feels Threatened In Home Enviroment: No Family/Social History - Physician Review Nursing Documentation Reviewed: Yes Family/Social History: No Known Family HX Smoking Status: Former Smoker Hx Alcohol Use: Yes (QUIT 25 YRS AGO) Hx Substance Use: Yes (COCAINE, QUIT 25 YRS AGO) Hx Substance Use Treatment: Yes Allergies/Home Meds Allergies/Adverse Reactions: Allergies quetiapine fumarate [From Seroquel] Adverse Reaction (Verified 03/04/17 23:52) ANAPHYLAXIS wild berries Allergy (Intermediate, Uncoded 12/05/16 08:32) RASH Home Medications: Home Meds Medication Instructions Recorded Confirmed diltiaZEM [Cardizem] 30 mg PO BID 02/25/17 03/31/17 Insulin Detemir [Levemir] 40 unit SC ACBD 03/31/17 03/31/17 Review of Systems - Physician Review All systems were reviewed & negative as marked: Yes - Review of Systems Constitutional: absent: Fevers Respiratory: absent: Cough Cardiovascular: Chest Pain Gastrointestinal: absent: Nausea, Vomiting Musculoskeletal: Other (lower left leg wound) Physical Exam Vital Signs Temp Pulse Resp BP Pulse Ox 03/31/17 22:31 78 18 112/72 99 03/31/17 22:18 97.6 F 70 18 116/77 03/31/17 18:58 97.6 F 70 18 116/77 99 03/31/17 17:37 90 18 100/56 L 95 Blood Pressure: Normal Pulse: Regular Respiratory Rate: Normal Appearance: Positive for: Well-Appearing Pain Distress: None Mental Status: Positive for: Alert and Oriented X 3 - Systems Exam Respiratory/Chest: Present: Clear to Auscultation, Good Air Exchange. No: Respiratory Distress, Accessory Muscle Use Cardiovascular: Present: Regular Rate and Rhythm, Normal S1, S2. No: Murmurs Lower Extremity: Present: Other (left lower leg healed eschar bilaterally 1 cm in diameter, no drainage, no erythema) Medical Decision Making ED Course and Treatment: 03/31/17 16:38 Impression: 56 year old male with left lower leg wound. Physical exam shows bilateral eschar healed 1 cm in diameter, no drainage, no erythema. Plan: -- EKG -- Chest X-ray -- Lower Extremity Ultrasound -- Labs -- Morphine -- Reassess and disposition Prior Visits: Notes and results from previous visits were reviewed. Patient was last seen in the emergency department on 02/25/2017 for shortness of breath. Patient was admitted. Progress Notes: EKG: Ordered, reviewed, and independently interpreted the EKG. Rate : 80 BPM Rhythm : Ventricular rhythm Interpretation : No ST-segment elevations or depressions, no T-wave inversions, normal intervals. Comparison : No previous EKG for comparison. - Lab Interpretations Lab Results: 03/31/17 16:45 03/31/17 16:45 Lab Results 03/31/17 16:45: PT 18.7 H, INR 1.62 H, APTT 30.0 03/31/17 16:45: Sodium 138, Potassium 3.7, Chloride 99, Carbon Dioxide 26, Anion Gap 16, BUN 20, Creatinine 0.9, Est GFR ( Amer) > 60, Est GFR (Non- Af Amer) > 60, Random Glucose 126 H, Calcium 9.4, Magnesium 1.5 L, Total Bilirubin 0.4, AST 28, ALT 39, Alkaline Phosphatase 59, Lactate Dehydrogenase 375, Total Creatine Kinase 87, Troponin I 0.05 D, NT-Pro-B Natriuret Pep 661 H , Total Protein 7.1, Albumin 4.1, Globulin 2.9, Albumin/Globulin Ratio 1.4 03/31/17 16:45: WBC 9.6 D, RBC 4.38, Hgb 12.4 L, Hct 37.4 L, MCV 85.4, MCH 28.3 , MCHC 33.2, RDW 14.7 H, Plt Count 171, MPV 10.2, Gran % 77.1 H, Lymph % (Auto) 16.6 L, [place] % (Auto) 4.7, Eos % (Auto) 1.3 L, Baso % (Auto) 0.3, Gran # 7.39 H , Lymph # 1.6, [place] # 0.5, Eos # 0.1, Baso # 0.03 I have reviewed the lab results: Yes - RAD Interpretation Radiology Orders: 03/31/17 16:38 CHEST PORTABLE [RAD] Stat DUPLEX LOWER EXTRM VEIN BILAT [US] Stat - Medication Orders Current Medication Orders: Albuterol/Ipratropium (Duoneb 3 Mg/0.5 Mg (3 Ml) Ud) 3 ml IH Q4H PRN PRN Reason: Shortness of Breath Last Admin: 04/01/17 08:47 Dose: 3 ml Diltiazem HCl (Cardizem) 30 mg PO BID [facility] Last Admin: 04/01/17 09:55 Dose: 30 mg MAR Pulse and Blood Pressure Document 04/01/17 09:55 MANIL (Rec: 04/01/17 09:55 MANIL [id number]) Pulse Pulse Rate (60-90) 70 Blood Pressure Blood Pressure (100/60-150/90) 106/69 Furosemide (Lasix) 40 mg PO BID [facility] Last Admin: 04/01/17 09:56 Dose: 40 mg MAR Blood Pressure Document 04/01/17 09:56 MANIL (Rec: 04/01/17 09:57 MANIL [id number]) Blood Pressure Blood Pressure (100/60-150/90) 106/69 Gabapentin (Neurontin) 300 mg PO BID [facility] PRN Reason: Protocol Last Admin: 04/01/17 18:30 Dose: 300 mg Behavioural Document 04/01/17 18:30 MANIL (Rec: 04/01/17 18:30 MANIL [id number]) Maintenance Maintenance Dose Yes Nonmedicinal Nonmedicinal Interventions Redirect Behavior Behavior for Medication: Anxiety Glimepiride (Amaryl) 4 mg PO DAILY [facility] Last Admin: 04/01/17 09:55 Dose: 4 mg Ceftaroline Fosamil 600 mg/ (Sodium Chloride) 100 mls @ 100 mls/hr IVPB Q12 [facility] PRN Reason: Protocol Stop: 04/10/17 11:16 Last Admin: 04/01/17 12:00 Dose: 100 mls/hr eMAR Start Stop Document 04/01/17 12:00 MANIL (Rec: 04/01/17 13:08 MANIL [id number] ) Intravenous Solution Start Date 04/01/17 Start Time 12:00 End Date 04/01/17 End time 13:00 Total Infusion Time 60 Insulin Detemir (Levemir) 40 unit SC ACBD [facility] Last Admin: 04/01/17 17:00 Dose: 40 unit MAR Blood Glucose Document 04/01/17 17:00 MANIL (Rec: 04/01/17 18:32 MANIL [id number]) Blood Glucose Finger Stick Blood Glucose (70-120) 258 Subcutaneous Administrations Document 04/01/17 17:00 MANIL (Rec: 04/01/17 18:32 MANIL [id number]) Charges for Administration # of Subcutaneous Administrations 1 Lisinopril (Zestril) 2.5 mg PO DAILY [facility] Last Admin: 04/01/17 09:58 Dose: 2.5 mg MAR Pulse and Blood Pressure Document 04/01/17 09:58 MANIL (Rec: 04/01/17 09:58 MANIL [id number]) Pulse Pulse Rate (60-90) 70 Blood Pressure Blood Pressure (100/60-150/90) 106/69 Lorazepam (Ativan) 1 mg PO BID PRN; Protocol PRN Reason: Anxiety Last Admin: 04/01/17 18:32 Dose: 1 mg Behavioural Document 04/01/17 18:32 MANIL (Rec: 04/01/17 18:33 MANIL [id number]) Maintenance Maintenance Dose Yes Nonmedicinal Nonmedicinal Interventions Redirect Behavior Behavior for Medication: Anxiety Metformin HCl (Glucophage) 1,000 mg PO BID [facility] Last Admin: 04/01/17 18:30 Dose: 1,000 mg Montelukast Sodium (Singulair) 10 mg PO HS [facility] Trazodone HCl (Desyrel) 150 mg PO HS [facility] Discontinued Medications Albuterol/Ipratropium (Duoneb 3 Mg/0.5 Mg (3 Ml) Ud) 3 ml IH ONCE STA Stop: 03/31/17 19:47 Last Admin: 03/31/17 20:00 Dose: 3 ml Vancomycin HCl/Dextrose (Vancocin) 1 g in 200 mls @ 133.333 mls/hr IV STAT [facility] PRN Reason: Protocol Stop: 03/31/17 21:18 Vancomycin HCl (Vancomycin 1gm) 1 gm in 250 mls @ 133.333 mls/hr IVPB STAT [facility] PRN Reason: Protocol Last Admin: 03/31/17 20:42 Dose: 133.333 mls/hr eMAR Start Stop Document 03/31/17 20:42 GMD (Rec: 03/31/17 20:42 GMD [facility]) Intravenous Solution Start Date 03/31/17 Start Time 20:42 End Date 03/31/17 End time 22:35 Total Infusion Time 113 Magnesium Sulfate 2 gm/ Sodium (Chloride) 104 mls @ 102 mls/hr IVPB ONCE ONE Stop: 04/01/17 16:56 Last Admin: 04/01/17 16:00 Dose: 102 mls/hr eMAR Start Stop Document 04/01/17 16:00 MANIL (Rec: 04/01/17 18:32 MANIL [id number]) Intravenous Solution Start Date 04/01/17 Start Time 16:00 End Date 04/01/17 End time 17:02 Total Infusion Time 62 Montelukast Sodium (Singulair) 10 mg PO ONCE ONE Stop: 04/01/17 01:35 Last Admin: 04/01/17 01:45 Dose: Not Given Non-Admin Reason: Patient Refused Morphine Sulfate (Morphine) 4 mg IVP STAT STA Stop: 03/31/17 18:39 Last Admin: 03/31/17 18:58 Dose: 4 mg MAR Pain Assessment Document 03/31/17 18:58 GMD (Rec: 03/31/17 18:58 GMD [facility]) Pain Reassessment Is this a pain reassessment? No Sleep Is patient sleeping during reassessment? No Presence of Pain Presence of Pain Yes Location Left, Right or Bilateral Left Pain Location Body Site Leg IVP Administration Document 03/31/17 18:58 GMD (Rec: 03/31/17 18:58 GMD [facility]) Charges for Administration # of IVP Administrations 1 Pneumococcal Polyvalent Vaccine (Pneumovax 23 Vaccine) 0.5 ml IM .ONCE ONE Stop: 03/31/17 22:31 Trazodone HCl (Desyrel) 150 mg PO ONCE ONE Stop: 04/01/17 01:34 Last Admin: 04/01/17 01:55 Dose: 150 mg - Scribe Statement The provider has reviewed the documentation as recorded by the Celeste Shell Provider Scribe Attestation: All medical record entries made by the Celeste were at my direction and personally dictated by me. I have reviewed the chart and agree that the record accurately reflects my personal performance of the history, physical exam, medical decision making, and the department course for this patient. I have also personally directed, reviewed, and agree with the discharge instructions and disposition. Disposition/Present on Arrival - Present on Arrival Any Indicators Present on Arrival: No History of DVT/PE: No History of Uncontrolled Diabetes: No Urinary Catheter: No History of Decub. Ulcer: No History Surgical Site Infection Following: None - Disposition Have Diagnosis and Disposition been Completed?: Yes Diagnosis: COPD (chronic obstructive pulmonary disease), Cellulitis, Chest pain Disposition: HOSPITALIZED Disposition Time: 19:00 Patient Problems: Current Active Problems Problem Status Onset COPD (chronic obstructive pulmonary disease) Acute Cellulitis Acute Chest pain Acute Condition: STABLE
--- NOTE | 2017-03-31 19:18 | ED PDOC ---
Physical Exam Vital Signs Reviewed: Yes Vital Signs Temp Pulse Resp BP Pulse Ox 03/31/17 18:58 97.6 F 70 18 116/77 99 03/31/17 17:37 90 18 100/56 L 95 Temperature: Afebrile Blood Pressure: Normal Pulse: Regular Respiratory Rate: Normal Appearance: Positive for: Well-Appearing Pain Distress: None Mental Status: Positive for: Alert and Oriented X 3 Medical Decision Making ED Course and Treatment: 03/31/17 19:15 patient signed out to me by Dr. Yun. Currently awaiting results of Lower Extremity Ultrasound prior to final disposition. Patient presented to the ER for lower leg wound discomfort,chronic chest pain for several months and sob. 03/31/17 19:20 Lower Extremity Ultrasound results are negative. 03/31/17 20:[address] Drake, covering for Dr. Villagomez, who is aware and agrees with plan. Pt will go to Telemetry observation for chest pain, COPD, and cellulitis. - Lab Interpretations Lab Results: 03/31/17 16:45 03/31/17 16:45 Lab Results 03/31/17 16:45: PT 18.7 H, INR 1.62 H, APTT 30.0 03/31/17 16:45: Sodium 138, Potassium 3.7, Chloride 99, Carbon Dioxide 26, Anion Gap 16, BUN 20, Creatinine 0.9, Est GFR ( Amer) > 60, Est GFR (Non- Af Amer) > 60, Random Glucose 126 H, Calcium 9.4, Magnesium 1.5 L, Total Bilirubin 0.4, AST 28, ALT 39, Alkaline Phosphatase 59, Lactate Dehydrogenase 375, Total Creatine Kinase 87, Troponin I 0.05 D, NT-Pro-B Natriuret Pep 661 H , Total Protein 7.1, Albumin 4.1, Globulin 2.9, Albumin/Globulin Ratio 1.4 03/31/17 16:45: WBC 9.6 D, RBC 4.38, Hgb 12.4 L, Hct 37.4 L, MCV 85.4, MCH 28.3 , MCHC 33.2, RDW 14.7 H, Plt Count 171, MPV 10.2, Gran % 77.1 H, Lymph % (Auto) 16.6 L, Prentiss % (Auto) 4.7, Eos % (Auto) 1.3 L, Baso % (Auto) 0.3, Gran # 7.39 H , Lymph # 1.6, Prentiss # 0.5, Eos # 0.1, Baso # 0.03 - RAD Interpretation Radiology Orders: 03/31/17 16:38 CHEST PORTABLE [RAD] Stat DUPLEX LOWER EXTRM VEIN BILAT [US] Stat - Medication Orders Current Medication Orders: Albuterol/Ipratropium (Duoneb 3 Mg/0.5 Mg (3 Ml) Ud) 3 ml IH Q4H PRN PRN Reason: Shortness of Breath Vancomycin HCl (Vancomycin 1gm) 1 gm in 250 mls @ 133.333 mls/hr IVPB STAT WILTON PRN Reason: Protocol Last Admin: 03/31/17 20:42 Dose: 133.333 mls/hr eMAR Start Stop Document 03/31/17 20:42 GMD (Rec: 03/31/17 20:42 GMD [facility]) Intravenous Solution Start Date 03/31/17 Start Time 20:42 End Date 03/31/17 End time 22:35 Total Infusion Time 113 Discontinued Medications Albuterol/Ipratropium (Duoneb 3 Mg/0.5 Mg (3 Ml) Ud) 3 ml IH ONCE STA Stop: 03/31/17 19:47 Last Admin: 03/31/17 20:00 Dose: 3 ml Vancomycin HCl/Dextrose (Vancocin) 1 g in 200 mls @ 133.333 mls/hr IV STAT STA PRN Reason: Protocol Stop: 03/31/17 21:18 Morphine Sulfate (Morphine) 4 mg IVP STAT STA Stop: 03/31/17 18:39 Last Admin: 03/31/17 18:58 Dose: 4 mg MAR Pain Assessment Document 03/31/17 18:58 GMD (Rec: 03/31/17 18:58 GMD [facility]) Pain Reassessment Is this a pain reassessment? No Sleep Is patient sleeping during reassessment? No Presence of Pain Presence of Pain Yes Location Left, Right or Bilateral Left Pain Location Body Site Leg IVP Administration Document 03/31/17 18:58 GMD (Rec: 03/31/17 18:58 GMD [facility]) Charges for Administration # of IVP Administrations 1 - Scribe Statement The provider has reviewed the documentation as recorded by the Celeste Shell Provider Celeste Attestation: All medical record entries made by the Celeste were at my direction and personally dictated by me. I have reviewed the chart and agree that the record accurately reflects my personal performance of the history, physical exam, medical decision making, and the department course for this patient. I have also personally directed, reviewed, and agree with the discharge instructions and disposition. Disposition/Present on Arrival - Present on Arrival Any Indicators Present on Arrival: No History of DVT/PE: No History of Uncontrolled Diabetes: No Urinary Catheter: No History of Decub. Ulcer: No History Surgical Site Infection Following: None - Disposition Have Diagnosis and Disposition been Completed?: Yes Diagnosis: COPD (chronic obstructive pulmonary disease), Cellulitis, Chest pain Disposition: HOSPITALIZED Disposition Time: 19:54 Patient Plan: Observation Patient Problems: Current Active Problems Problem Status Onset COPD (chronic obstructive pulmonary disease) Acute Cellulitis Acute Chest pain Acute Condition: STABLE
[2017-03-31] MEDS ORDERED: Albuterol-Ipratrop 3 mg / 0.5 (3 ml) UD IH STA (19:46)
[2017-03-31] MEDS ORDERED: [UNRECOGNIZED DRUG - OTHER] IV STA (19:49)
[2017-03-31] MEDS ORDERED: VANCOMYCIN IV STA (19:49)
[2017-03-31] MEDS ORDERED: Albuterol-Ipratrop 3 mg / 0.5 (3 ml) UD IH PRN (19:55)
[2017-03-31] MEDS ORDERED: Vancomycin 1gm in NS 250ml 1 GM/250 ML BAG IVPB SCH (20:15)
[2017-03-31] MEDS ORDERED: Pneumococcal 23-Valent Vaccine IM ONE (22:30)
[2017-03-31] MEDS ORDERED: Influenza Vaccine 60 mcg/0.5 mL SYR (4YR UP) IM ONE (22:30)
--- NOTE | 2017-04-01 04:47 | CP.PCM.PN ---
Subjective - Date & Time of Evaluation Date of Evaluation: 04/01/17 Time of Evaluation: 04:45 - Subjective Subjective: S:Patient requested an order for singular and trazodone which he is on at home. Has no other complaints. [facility] record was reviewed. O: Last Vital Signs 3 Temp 97 F L 04/01/17 00:01 Pulse 72 04/01/17 00:01 Resp 20 04/01/17 00:01 BP 100/66 04/01/17 00:01 Pulse Ox 93 L 04/01/17 00:01 Awake, alert, not in distress. LUNGS:Normal breathing pattern. A:Asthma. Depression. P:Trazodone 150 mg po now. Singulair 10 mg po now. Objective - Vital Signs/Intake and Output Vital Signs (last 24 hours): Temp Pulse Resp BP Pulse Ox 97 F L 72 20 100/66 93 L 04/01/17 00:01 04/01/17 00:01 04/01/17 00:01 04/01/17 00:01 04/01/17 00:01 - Medications Medications: Current Medications Albuterol/Ipratropium (Duoneb 3 Mg/0.5 Mg (3 Ml) Ud) 3 ml IH Q4H PRN PRN Reason: Shortness of Breath Diltiazem HCl (Cardizem) 30 mg PO BID WILTON Furosemide (Lasix) 40 mg PO BID WILTON Gabapentin (Neurontin) 300 mg PO BID WILTON PRN Reason: Protocol Glimepiride (Amaryl) 4 mg PO DAILY WILTON Vancomycin HCl (Vancomycin 1gm) 1 gm in 250 mls @ 133.333 mls/hr IVPB STAT WILTON PRN Reason: Protocol Last Admin: 03/31/17 20:42 Dose: 133.333 mls/hr Insulin Detemir (Levemir) 40 unit SC ACBD WILTON Lisinopril (Zestril) 2.5 mg PO DAILY WILTON Lorazepam (Ativan) 1 mg PO BID PRN; Protocol PRN Reason: Anxiety Last Admin: 04/01/17 02:14 Dose: 1 mg Metformin HCl (Glucophage) 1,000 mg PO BID WILTON Montelukast Sodium (Singulair) 10 mg PO HS WILTON Trazodone HCl (Desyrel) 150 mg PO HS WILTON - Labs Labs: PT 18.7 SECONDS (9.4-12.5) H 03/31/17 16:45 INR 1.62 (0.93-1.08) H 03/31/17 16:45 APTT 30.0 Seconds (25.1-36.5) 03/31/17 16:45
--- NOTE | 2017-04-01 08:15 | RAD ---
HISTORY: chest pain COMPARISON: 03/05/2017 FINDINGS: LUNGS: No active pulmonary disease. PLEURA: No significant pleural effusion identified, no pneumothorax apparent. CARDIOVASCULAR: Moderate cardiomegaly. OSSEOUS STRUCTURES: No significant abnormalities. VISUALIZED UPPER ABDOMEN: Normal. OTHER FINDINGS: To lead pacemaker IMPRESSION: No active disease.
[2017-04-01] MEDS: Insulin Detemir 100 units/ml Vial (Levemir) SC SCH ×2 (08:30→17:00)
[2017-04-01] MEDS: Ceftaroline 600 MG in Sodium Chloride 0.9% 100 ML IVPB SCH ×2 (12:00→22:21)
[2017-04-01] MEDS ORDERED: Magnesium Sulfate 2 GM in Sodium Chloride 0.9% 100 ML IVPB ONE (15:55)
--- NOTE | 2017-04-01 20:58 | CARD ---
APPROVED REPORT EKG Measurement Heart [id number] <Conclusion> Bi-Ventricular paced rhythm Abnormal ECG
--- NOTE | 2017-04-01 22:25 | CON ---
DATE: 04/01/2017 The patient is in room 376, bed 2. CHIEF COMPLAINT: Weakness and complaining of left leg infection times several days. HISTORY OF PRESENT ILLNESS: This is a 56-year-old male with morbid obesity with a BMI of 41, who states he has had a leg ulcer and wound infection for 11 months which has now recently became worse and erythematous. No fevers. There is mild shortness of breath and no chest pain. No abdominal pain, diarrhea or constipation. No bright red blood per rectum. No melena. PAST MEDICAL HISTORY: Significant for morbid obesity, BMI of 41, chronic obstructive lung disease and a long-time smoker, ex-smoker, anxiety, coronary artery disease, congestive heart failure, cardiomyopathy, atrial fibrillation, hypertension, history of acute renal failure with a creatinine that went up to 3.2 last year in May. PAST SURGICAL HISTORY: Significant for AICD, gastric bypass, cardiac stents. ALLERGIES: THE PATIENT IS ALLERGIC TO QUANTIFERON, FURAMIDE, AND WILD BERRIES. MEDICATIONS: At home include; the patient to be on trazodone, Singulair, metformin, lisinopril, lorazepam, gabapentin, and Lasix. PHYSICAL EXAMINATION: GENERAL: The patient is in bed and in no acute distress. VITAL SIGNS: Temperature of 97, blood pressure is 106/60, respiratory rate of 20, heart rate of 70, 94% saturation. HEENT: Unremarkable. NECK: Supple. LUNGS: Decreased breath sounds. HEART: Normal S1, S2. ABDOMEN: Soft and nontender. EXTREMITIES: Leg there is a chronic ulcer with erythema around it, no discharge. LABORATORY EXAMINATION: Reveals a white count is 9.6, hemoglobin of 12, platelets 171, coagulation is noted. BUN of 20, creatinine of 0.9. BNP is 661, glucose is 151. ASSESSMENT AND PLAN: This is a 56-year-old male, morbid obesity, BMI of 41, chronic obstructive lung disease, anxiety, coronary artery disease, congestive heart failure, cardiomyopathy, atrial fibrillation, history of renal failure with a creatinine going up to 3.2 in 05/2016, history of hypertension who was on trazodone at home with diet and presenting with a left leg cellulitis, has infused vancomycin, unable to use linezolid. Will use Teflaro, concern about MRSA. We will order an MRSA screening test and must rule out underlying osteomyelitis. We will order a bone scan since the patient has AICD unable to get MRI and we will make further recommendations based on clinical response and bone scan to rule out underlying osteomyelitis. Patient should have a vascular evaluation of the blood supply and we will make further recommendations. Nikolay Barba MD
--- NOTE | 2017-04-02 00:18 | HP ---
HISTORY OF PRESENT ILLNESS: Mr. Johnson is a 56-year-old male admitted to the hospital with a complaint of left leg ulcer. He has this infection for 11 months period, became worse recently. No history of fever. He also has a history of DVT of lower extremities. He had morbid obesity, underwent bariatric surgery for that. No cough. No fever. No chest pain. PAST MEDICAL HISTORY: Morbid obesity, COPD, chronic leg cellulitis, CHF, cardiomyopathy, atrial fibrillation, defibrillator placement, acute renal failure. PAST SURGICAL HISTORY: AICD placement, gastric bypass surgery, cardiac stent placement. ALLERGIES: HE IS ALLERGIC TO QUANTIFERON. HOME MEDICATIONS: Trazodone, Singulair, metformin, lisinopril, lorazepam, gabapentin, and Lasix. PHYSICAL EXAMINATION: GENERAL: Comfortable in bed, in no acute distress. VITAL SIGNS: Temperature 98.7, heart rate 80 per minute, blood pressure 100/60, respiratory rate 20 per minute, oxygen saturation 98% on room air. HEENT: Unremarkable. NECK: Supple. CHEST: Air entry present and equal bilaterally. No added sounds. CARDIOVASCULAR: S1 and S2 normal. No murmur, no gallop. ABDOMEN: Soft, nontender. No hepatosplenomegaly. EXTREMITIES: No edema. PLASTIC SURGERY NURSE: Alert and oriented x3. No focal sensory or motor deficits. LABORATORY DATA: White count 9.6, hemoglobin 12, platelet count 171. BUN 20, creatinine 0.9. BNP 661. Glucose 151. ASSESSMENT: 1. Chronic obstructive pulmonary disease. 2. Coronary artery disease. 3. Cardiomyopathy. 4. History of deep venous thrombosis. 5. History of gastric bypass surgery. 6. Chronic left lower extremity ulcer. PLAN: He will be admitted to the hospital. ID consultation with Dr. Barba is requested. Ceftaroline started. Bone scan ordered for evaluation of osteomyelitis. MEDICATIONS: DuoNeb p.r.n., Lasix 40 mg IV p.o. b.i.d., Neurontin 300 mg p.o. b.i.d., Amaryl 4 mg daily, Levemir 40 units subcu q.a.c., lisinopril 2.5 mg daily, lorazepam 1 mg p.o. b.i.d. p.r.n., metformin, trazodone 150 mg p.o. at bedtime. Celena Drake MD
[2017-04-02 07:39] LABS: MAGNESIUM 1.7 mg/dL (1.7-2.2)
[2017-04-02] MEDS: Insulin Detemir 100 units/ml Vial (Levemir) SC SCH ×2 (09:09→17:23)
--- NOTE | 2017-04-02 10:04 | CON ---
DATE: 04/01/2017 LOCATION: The patient in room 376, bed 2. REASON FOR CONSULTATION: Chest pain, shortness of breath, history of atrial fibrillation, history of cardiomyopathy, AICD insertion. HISTORY OF PRESENT ILLNESS: The patient who is a known case of congestive heart failure due to cardiomyopathy, chronic LV systolic failure, paroxysmal atrial fibrillation for which he has radiofrequency ablation and had also AICD insertion. The patient now admitted for episode of shortness of breath and chest pain also pain on the left lower leg where he has open area for long time. PAST MEDICAL HISTORY: Significant for cardiac catheterization 2 to 3 times, which showed non-obstructive coronary artery disease, history of cardiomyopathy, history of alcohol abuse, history of tobacco abuse, noncompliance with medication, history of AICD insertion at [facility] by Dr. Bonilla. Also, add ablation for atrial fibrillation. PAST SURGICAL HISTORY: Significant for gastric bypass surgery, thrombectomy due to acute occlusion of the left lower extremity artery, history of AICD insertion, cardiac catheterization 2 to 3 times, nonobstructive coronary artery disease, ablation for paroxysmal atrial fibrillation. PREVIOUS CARDIAC WORKUP: The patient recently had MUGA scan which showed LV ejection fraction of 43%, which showed some improvement in the LV dysfunction. The patient had cardiac catheterization 2 to 3 times in the past, at least twice at [facility], one was in 2014 which showed normal coronary arteries. EDP in the range of 30, history of atrial fibrillation, history of CORA cardioversion, history of AICD insertion at [facility] as well as radiofrequency ablation for atrial fibrillation by Dr. Bonilla. Echo on 08/15/2016 showed mildly dilated LV, decrease LV function with ejection fraction of 25%, moderately dilated RV systolic dysfunction, moderately decreased systolic function of RV. PERSONAL HISTORY: The patient used to smoke and drink. He says he stopped that. ALLERGIES: THE PATIENT DENIES ANY ALLERGIES. REVIEW OF SYSTEMS: All the systems reviewed positive mentioned in the HPI, others were negative. HOME MEDICATIONS: Include Insulin 40 units subq a.c.b., Desyrel 150 mg at bedtime, Cardizem 30 mg b.i.d., Singulair 10 mg at bedtime, metformin 1000 mg b.i.d., lisinopril 2.5 mg daily, Ativan 1 mg b.i.d. p.r.n., glimepiride 4 mg p.o. daily, gabapentin 300 mg p.o. b.i.d., Lasix 40 mg b.i.d. and Pletal 100 mg p.o. b.i.d. FAMILY HISTORY: Not significant. PHYSICAL EXAMINATION: VITAL SIGNS: Blood pressure 106/69, respirations 20, pulse 70 and temperature 97.4. HEENT: Head is normocephalic. Eyes; pupils normal. Conjunctivae normal. Nose and throat normal. NECK: JVP low. Carotid equal. THORAX: AP diameter normal. LUNGS: Clear. No rales. No rhonchi. . CARDIOVASCULAR: S1 and S2. No rub. ABDOMEN: Protuberant. No organomegaly. EXTREMITIES: No clubbing. No cyanosis. The patient has an open area on the left lower leg. The patient also has some chronic venous stasis and slight edema on the lower leg. LABORATORY DATA: WBC 9.6, hemoglobin 12.4, hematocrit 37.4, and platelets 171. Sodium 138, potassium 3.7, BUN 20, creatinine 0.9, magnesium 1.5 and glucose 126. AST and ALT normal. Troponin 0.05 normal. NT-proB natriuretic peptide 661, which is not significant. Total protein 7.1, albumin 4.1. Chest x-ray mild cardiomegaly, clear lungs. EKG pacemaker rhythm. DIAGNOSES: Atypical chest pain as mentioned, catheterization 3 times showed nonobstructive coronary artery disease, cardiomyopathy nonischemic, automatic implantable cardioverter defibrillator insertion, history of atrial fibrillation status post ablation, obesity, ulcer on the left lower leg, history of decompensated congestive heart failure, chronic systolic dysfunction, diabetes, hypertension, hyperlipidemia, morbid obesity, history of tobacco abuse, history of alcohol abuse, history of peripheral arterial disease, history of thrombectomy, history of deep venous thrombosis. PLAN: The patient's chest pain is atypical. The patient has no evidence of CHF at present. We will continue glimepiride 4 mg p.o. daily, Cardizem 30 mg b.i.d., furosemide 40 mg p.o. b.i.d., metformin 1000 mg b.i.d., insulin Levemir 40 units subcu a.c.b. We will magnesium sulfate 2 g IV because of low magnesium, Neurontin 300 mg b.i.d., Singulair 10 mg p.o. at bedtime, Teflaro 600 mg IV q. 12 hours, lisinopril 2.5 mg p.o. daily. We will follow with you. Tia Cabello MD
[2017-04-02] MEDS: Ceftaroline 600 MG in Sodium Chloride 0.9% 100 ML IVPB SCH ×2 (11:16→23:00)
[2017-04-02] MEDS: Insulin Reg-MEDIUM-Coverage SC SCH ×3 (12:09→21:45)
--- NOTE | 2017-04-02 13:03 | US ---
HISTORY: Leg pain and swelling. Evaluate for DVT PHYSICIAN(S): John Paul Cannon MD. TECHNIQUE: Duplex sonography and color-flow Doppler with graded compression were used to evaluate the deep venous systems of both lower extremities. The exam is very limited by body habitus and edema. The tibial veins are not adequately seen FINDINGS: The visualized deep venous systems of both lower extremities are sonographically normal and compressible. Normal wave forms and augmentation are seen. There is no sonographic evidence for deep venous thrombosis in the visualized segments of both lower extremities. IMPRESSION: No sonographic evidence for deep venous thrombosis in the visualized segments of both lower extremities. Very limited study.
--- NOTE | 2017-04-02 13:06 | PN ---
DATE: SUBJECTIVE: The patient has pain in the left leg. He states it is unbearable. He as 12/26. He is to have difficulty ambulating. PHYSICAL EXAMINATION: VITAL SIGNS: Temperature is 97.5, pulse is 71, blood pressure is 92/57, and respirations are 18. GENERAL: The patient is lying in bed, flat, comfortable. HEENT: No oral lesion. Anicteric sclerae. Moist mucosa. NECK: No JVD, adenopathy, or thyromegaly. CARDIOVASCULAR: S1 and S2, regular. No murmurs, rubs, or gallops. LUNGS: Clear to auscultation bilaterally. No wheeze, rales, or rhonchi. ABDOMEN: Bowel sounds are positive, soft, nontender and nondistended. EXTREMITIES: In the left lateral leg, there is a small about 1.5 cm ulcer that does not have any erythema. LABORATORY DATA: No new labs. ASSESSMENT: 1. Left leg pain, most likely secondary to peripheral arterial disease. 2. Coronary artery disease. 3. Chronic obstructive pulmonary disease. 4. Congestive heart failure, secondary to systolic dysfunction. 5. Atrial fibrillation, on Coumadin. 6. Automatic implantable cardioverter defibrillator. 7. Hypertension. 8. Gastric bypass. 9. Obesity with body mass index of 41. PLAN: The patient is going to be admitted to the hospital. The patient is on Amaryl for diabetes. He is going to continue with the trazodone. The patient is on metformin for his diabetes. I will hold the metformin in case he needs intervention with contrast. The patient is on magnesium replacement. The patient is on Neurontin for neuropathy. He is receiving Singulair. I will get and Dr. John Paul engel evaluate the patient. The patient has a bone scan that has been ordered and is pending. Duplex ultrasound is done, but results are pending. Axel Villagomez MD
--- NOTE | 2017-04-02 17:43 | NM ---
PROCEDURE: Three-phase bone scan HISTORY: Osteomyelitis suspected left lower extremity COMPARISON: 11/28/2016 plain film radiographs left tibia and fibula. No more recent studies are available for correlation TECHNIQUE: Following administration of 28.7 miCu of Tc MDP multiplanar whole body images were obtained. FINDINGS: Flow component: Mildly increased flow to the right lower extremity. Blood pool component: Accumulation of radionuclide in the right calf and to lesser extent left calf. Delayed images at 3:00: Focal increased uptake proximal left tibia. Other findings: None. IMPRESSION: Negative study for acute osseous process.
--- NOTE | 2017-04-02 22:15 | PN ---
DATE: 04/02/2017 SUBJECTIVE: The patient is seen earlier in 376. No fevers and chills. PHYSICAL EXAMINATION: VITAL SIGNS: Temperature is 97, blood pressure is 100/60, respiratory rate of 18, heart rate of 70. HEENT: Unremarkable. NECK: Supple. LUNGS: Have decreased breath sounds. HEART: Normal S1, S2. ABDOMEN: Soft, nontender. LEG: Much improved. LABORATORY EXAMINATION: Reveals a white count of 9.6, sed rate is 18. The patient's BUN of 20, creatinine of 0.9. C-reactive protein is 4.46, it is slightly elevated.. Procalcitonin is less than 0.05, and the patient is on Teflaro, and bone scan is pending. Dr. Villagomez's note is reviewed. ASSESSMENT AND PLAN: A 56-year-old male with morbid obesity, body mass index of 41, chronic obstructive lung disease, anxiety, coronary artery disease, congestive heart failure, cardiomyopathy, atrial fibrillation, history of renal failure. The patient had a creatinine of 3.2 in [id number], history of hypertension and trazodone at home, and presenting with a left leg cellulitis which is greatly improved today. However, underlying ulcerative had been present for 11 months, must rule out underlying bone involvement. The patient does have an automated implantable cardioverter defibrillator and bone scan negative. We will discontinue the Teflaro, and the leg is greatly improved, maybe we will switch to p.o. antibiotics. We will follow with you Nikolay Barba MD
--- NOTE | 2017-04-03 00:50 | CON ---
DATE: 04/02/2017 TIME: 03:15 p.m. CHIEF COMPLAINT/HISTORY OF PRESENT ILLNESS: This is a noncompliant 56-year-old gentleman with a history of nonobstructive cardiomyopathy with atrial fibrillation and AICD insertion. Twice in 2017, Mr. Johnson presented with left popliteal emboli and acute ischemia. He was treated with catheter-directed thrombolysis. He continues to have a nonhealing ulcer on the lateral resendiz. It is painful. I reviewed his previous imaging, and on the last admission, his arteriogram demonstrated 2-vessel runoff. It is uncertain whether he is being complaint with his anticoagulation. SOCIAL HISTORY: Mr. Johnson has a history of alcohol and tobacco abuse. PAST SURGICAL HISTORY: He has undergone gastric bypass surgery. PLAN: I will order TREVON/PVR exam. Depending on the appearance of the distal waves forms, he will be reevaluated for possible angiography to define the popliteal artery and trifurcation. John Paul Cannon MD
[2017-04-03 07:48] LABS: BASO # 0.04 K/mm3 (0.0-2.0); BASO % 0.5 % (0.0-3.0); EOS # 0.2 (0.0-0.7); EOS % 2.3 % (1.5-5.0); GRAN # 5.85 (1.4-6.5); GRAN % 75.7 % (50.0-68.0); HEMOGLOBIN 12.1 g/dL (14.0-18.0); LYMPH # 1.2 (1.2-3.4); LYMPH % 15.3 % (22.0-35.0); MEAN CELL VOLUME 87.8 fl (80.0-105.0); MEAN CORPUSCULAR HEMOGLOBIN 27.9 pg (25.0-35.0); MEAN CORPUSCULAR HGB CONC 31.8 g/dl (31.0-37.0); MEAN PLATELET VOLUME 10.2 fl (7.0-11.0); MONO # 0.5 (0.1-0.6); MONO % 6.2 % (1.0-6.0); RBC 4.34 10^6/uL (3.5-6.1); RED CELL DISTRIBUTION WIDTH 15.1 % (11.5-14.5); WHITE BLOOD COUNT 7.7 10^3/ul (4.5-11.0)
[2017-04-03 07:56] LABS: INR 1.31 (0.93-1.08); PARTIAL THROMBOPLASTIN TIME 29.5 Seconds (25.1-36.5); PROTHROMBIN TIME 15.2 SECONDS (9.4-12.5)
[2017-04-03] MEDS: Insulin Reg-MEDIUM-Coverage SC SCH ×4 (08:09→22:31)
[2017-04-03 08:18] LABS: ALB/GLOB RATIO 1.3 (1.1-1.8); ALBUMIN 3.6 g/dL (3.0-4.8); ALT/SGPT 33 U/L (7-56); AST/SGOT 25 U/L (17-59); BLOOD UREA NITROGEN 20 mg/dL (7-21); CALCIUM 9.1 mg/dL (8.4-10.5); GFR AFRICAN-AMERICAN > 60; GFR NON-AFRICAN AMERICAN > 60; MAGNESIUM 1.9 mg/dL (1.7-2.2)
--- NOTE | 2017-04-03 08:48 | PN ---
DATE: 04/03/2017 SUBJECTIVE: The patient says he has some pain in his left leg. He has difficulty with ambulating. He says the pain is sometimes 10/10. PHYSICAL EXAMINATION: VITAL SIGNS: Temperature is 97.5, pulse is 69, blood pressure is 108/51, and respirations 18. GENERAL: The patient is lying in bed, flat, comfortable. HEENT: No oral lesion. Anicteric sclerae. Moist mucosa. NECK: No JVD, adenopathy, or thyromegaly. CARDIOVASCULAR: S1 and S2, regular. No murmurs, rubs, or gallops. LUNGS: Clear to auscultation bilaterally. No wheeze, rales, or rhonchi. ABDOMEN: Bowel sounds are positive, soft, nontender and nondistended. EXTREMITIES: No cyanosis, clubbing or edema. IMAGING STUDIES: Bone scan of the left leg is negative. ASSESSMENT: 1. Left leg pain, most likely secondary to peripheral arterial disease. 2. Coronary artery disease. 3. Chronic obstructive pulmonary disease. 4. Congestive heart failure secondary to systolic dysfunction, stable. 5. Atrial fibrillation, on Coumadin. 6. Automatic implantable cardioverter defibrillator. 7. Hypertension. 8. Gastric bypass. 9. Obesity with body mass index of 41. 10. Left leg 1.5 cm ulcer. PLAN: The patient was seen by Dr. John Paul Cannon. I appreciate his input. He is going to get lower extremity arterial Dopplers done. The patient is going to continue Zestril for hypertension. He is on Teflaro for his left leg ulcer. The patient is on Neurontin for neuropathy. He is receiving Levemir for diabetes, on Lasix daily. The patient is on Coumadin for his anticoagulation. The patient is on Amaryl for his diabetes. We will await ultrasound results. The patient is being followed by Dr. Barba. I appreciate his input. Axel Villagomez MD
--- NOTE | 2017-04-03 08:51 | PN ---
DATE: 04/02/2017 REASON FOR CONSULTATION: Chest pain, shortness of breath, history of atrial fibrillation, history of cardiomyopathy, and AICD. SUBJECTIVE: The patient denies any chest pain, shortness of breath, and complaining of pain in the leg. PHYSICAL EXAMINATION: GENERAL: Not in apparent distress. VITAL SIGNS: As follows; temperature afebrile, heart rate 70, and blood pressure 103/73. HEENT: PERRLA intact. NECK: Supple. No carotid bruits or thyromegaly. CHEST: Clear to auscultation. HEART: S1 and S2 regular. ABDOMEN: Soft. EXTREMITIES: Clubbing and cyanosis negative. LABORATORY DATA: Blood workup as follows; WBC 9.6, hemoglobin 12.2, hematocrit 37.4, and platelet count 171. Chemistry shows sodium 130, potassium 3.7, chloride 98, , anion gap of 16, BUN 20, and creatinine 0.9. IMPRESSION: Left leg most likely secondary to peripheral arterial disease, coronary artery disease, chronic obstructive pulmonary disease, congestive heart failure, atrial fibrillation, status post radiofrequency ablation, on Coumadin, status post automatic implantable cardioverter-defibrillator, gastric bypass, hypertension, and morbid obesity. RECOMMENDATIONS: Continue anticoagulation subtherapeutic. Discontinue telemetry. Continue Cardizem. The patient is going for the bone scan, rule out osteomyelitis. Continue antibiotic. CVS status is stable. We will repeat the lab in the morning. Coumadin. INR is 1.3. Discussed with Dr. Villagomez, Coumadin. We will follow with you. We will discontinue telemetry. Thank you Dr. Villagomez for providing us the opportunity in taking care of the patient, Yifan Johnson. Tia Rajan MD
[2017-04-03] MEDS: Enoxaparin 100 mg Syringe SC SCH ×2 (10:32→22:32)
[2017-04-03] MEDS: Insulin Detemir 100 units/ml Vial (Levemir) SC SCH ×2 (10:32→17:06)
[2017-04-03] MEDS: Ceftaroline 600 MG in Sodium Chloride 0.9% 100 ML IVPB SCH (10:33)
--- NOTE | 2017-04-03 13:47 | US ---
PROCEDURE: Lower extremity TREVON exam HISTORY: Peripheral vascular disease. Chronic left calf ulceration. Previous left lower extremity intervention. PHYSICIAN(S): John Paul Cannon MD. FINDINGS: The resting TREVON's are normal: right, 1.34and left, 1.22. The brachial systolic pressures are symmetric. The high thigh PVR waveforms are relatively normal and symmetric. The calf PVR waveforms augment normally. The left calf PVR waveform is decreased in amplitude compared to the right. This is of uncertain significance. The ankle and metatarsal waveforms are pulsatile and symmetric. There mildly blunted. Needs are suggestive of bilateral trifurcation and/ or tibial disease. IMPRESSION: 1. Bilateral trifurcation and/ or tibial disease. 2. The left distal waveforms and TREVON have improved when compared to the pre intervention study November,
--- NOTE | 2017-04-03 14:36 | PN ---
DATE: 04/03/2017 REASON FOR CONSULTATION: Chest pain, shortness of breath, history of atrial fibrillation, history of cardiomyopathy, and history of AICD. SUBJECTIVE: Denies any chest pain, but complained of pain at left resendiz of the tibia where the wound is healed. Yesterday, underwent for 3-phase bone scan was negative. OBJECTIVE: GENERAL: Not in apparent distress. VITAL SIGNS: As follows, temperature afebrile, heart rate 62, and blood pressure 108/51. HEENT: PERRLA. Extraocular muscles intact. NECK: Supple. No carotid bruits or thyromegaly. CHEST: Clear to auscultation. HEART: S1 and S2 regular. ABDOMEN: Soft. EXTREMITIES: Clubbing and cyanosis negative. LABORATORY DATA: Blood workup as follows; WBC , hemoglobin 12.8, hematocrit 38.1, and platelet count 149. Chemistry shows sodium 140, potassium 4.2, chloride 103, carbon dioxide 28, anion gap of 14, BUN 20, and creatinine 1.0. IMPRESSION: Left leg pain, rule out peripheral arterial disease, now complaining of pain in the leg and foot. Bone scan was negative for osteomyelitis, peripheral arterial disease, status post deep venous thrombosis, status post acute thrombus on the left leg in the past, nonobstructive coronary artery disease, history of atrial fibrillation status post radiofrequency ablation on Coumadin, status post automatic implantable cardioverter defibrillator, gastric bypass in the past, history of morbid obesity. RECOMMENDATIONS: Resume back anticoagulation. Today, INR is 1.31. Continue Lasix. Continue Lovenox until his INR gets therapeutic. Continue lisinopril, TREVON/PVR today. Followup electrolytes. Tia Rajan MD
--- NOTE | 2017-04-03 23:40 | PN ---
DATE: 04/03/2017 SUBJECTIVE: The patient is seen early this morning in room 241, bed 1. Doing well. No fevers. No chills. PHYSICAL EXAMINATION: VITAL SIGNS: Temperature is 97, blood pressure is 119/60, and respiratory rate of 16. HEENT: Unremarkable. NECK: Supple. LUNGS: Have decreased breath sounds. HEART: Normal S1, S2. ABDOMEN: Soft. EXTREMITIES: Examination of leg resolved. LABORATORY DATA: Reveals a white count of 70, sed rate of 18. Coagulation is noted. Chemistries reveals BUN of 20, creatinine of 1.0, procalcitonin is less than 0.05. Microbiology reveals the blood cultures are negative. Nares culture is negative. Ultrasound of the extremities is noted to have bilateral left distal TREVON improved compared to pre-evaluation study in November. ASSESSMENT AND PLAN: This is a 56-year-old male with morbid obesity, BMI of 41, chronic obstructive lung disease, anxiety, coronary artery disease, congestive heart failure, cardiomyopathy, atrial fibrillation, history of renal failure, history of hypertension, presenting with left leg cellulitis which is greatly improved with a negative bone scan. We will discontinue Teflaro and switch to p.o. doxycycline 100 mg p.o. b.i.d. x5 days. We will follow with you. Nikolay Barba MD
[2017-04-04 00:04] VITALS: TEMP 98; O2SAT 96
[2017-04-04 05:56] VITALS: RESP 18
[2017-04-04 06:51] LABS: INR 1.36 (0.93-1.08); PROTHROMBIN TIME 15.7 SECONDS (9.4-12.5)
--- NOTE | 2017-04-04 08:29 | PN ---
DATE: SUBJECTIVE: The patient states he has no complaints of any chest pain. No shortness of breath. No headaches. He does have complaints of some pain in the left leg. PHYSICAL EXAMINATION: VITAL SIGNS: Temperature is 98, pulse is 73, blood pressure is 113/59, and respirations are 20. GENERAL: The patient is lying in bed, flat, comfortable. HEENT: No oral lesion. Anicteric sclerae. Moist mucosa. NECK: No JVD, adenopathy, or thyromegaly. CARDIOVASCULAR: S1 and S2, regular. No murmurs, rubs, or gallops. LUNGS: Clear to auscultation bilaterally. No wheeze, rales, or rhonchi. ABDOMEN: Bowel sounds are positive, soft, nontender and nondistended. EXTREMITIES: No cyanosis, clubbing or edema. LABORATORY DATA: Lower extremity ultrasound has been reviewed, the bilateral trifurcation and left distal may be performed and may be as an improvement when compared to the intervention. ASSESSMENT: 1. Left leg pain secondary to peripheral arterial disease. 2. Coronary artery disease. 3. Chronic obstructive pulmonary disease. 4. Congestive heart failure, secondary to systolic dysfunction, stable. 5. Atrial fibrillation. 6. Left leg 1.5 cm ulcer chronic. 7. Automatic implantable cardioverter defibrillator. 8. Hypertension. 9. Gastric bypass. 10. Obesity with body mass index of 41. PLAN: The patient is currently comfortable. He had a bone scan done that was negative for osteomyelitis. The patient has subtherapeutic INR. The patient is on Lovenox. He is receiving antibiotics with doxycycline. The patient is on lisinopril for hypertension. The patient is receiving Singulair. He is going to continue with insulin for his diabetes. I did speak to Dr. John Paul Cannon and if there is any intervention as needed for his left leg, I do not suspect that there is, on the ultrasound, it looks like it has improved. Axel Villagomez MD
[2017-04-04] MEDS: Insulin Reg-MEDIUM-Coverage SC SCH ×2 (09:25→14:42)
[2017-04-04] MEDS: Insulin Detemir 100 units/ml Vial (Levemir) SC SCH (09:27)
[2017-04-04 09:37] VITALS: BP 128/72; PULSE 69
[2017-04-04] MEDS: Enoxaparin 100 mg Syringe SC SCH (09:44)
--- NOTE | 2017-04-04 15:46 | PN ---
DATE: 04/04/2017 REASON FOR CONSULTATION AND FOLLOWUP: Chest pain, shortness of breath, atrial fibrillation, history of cardiomyopathy, history of AICD (nonischemic chest pain). SUBJECTIVE: The patient is lying flat on the bed, complaining of pain in the leg. PHYSICAL EXAMINATION: GENERAL: Not in apparent distress. VITAL SIGNS: As follows; temperature afebrile, heart rate 69, blood pressure 120/72. HEENT: PERRLA. Intact. NECK: Supple. No carotid bruits or thyromegaly. CHEST: Clear to auscultation. HEART: S1 and S2 regular. ABDOMEN: Soft. EXTREMITIES: Clubbing and cyanosis negative. LABORATORY DATA: Blood workup as follows; WBC 10.7, hemoglobin 12.1, hematocrit 38.1, platelet count 149. Chemistry shows sodium 140, potassium 4.2, chloride 103, carbon dioxide 28, anion gap of 14, BUN 20, and creatinine 1.0. IMPRESSION: Leg pain, sever peripheral arterial disease, complaining of ulcer nonhealing patient complaining of pain. Bone scan was negative for osteomyelitis, peripheral arterial disease, history of deep vein thrombosis, history of status post removal of thrombus, history of nonobstructive coronary artery disease, nonischemic cardiomyopathy, history of atrial fibrillation, status post radiofrequency ablation on Coumadin, status post automatic implantable cardioverter defibrillator. RECOMMENDATIONS: Continue anticoagulation. Goal is to keep INR between 2 to 2.5. Continue Lovenox. Continue lisinopril. Yesterday, the patient had TREVON/PVR done that shows bilateral trifurcation and tibial disease, left distal waveform TREVON improved when compared to the previous 2017. Probably discharge. We will follow with you. No further cardiac workup is planned at this time. Emphasis on weight reduction, compliance with medication. History of gastric bypass in the past. Thank you Dr. Villagomez for providing us the opportunity in taking care of Alex Freeman. We will follow with you. Tia Rajan MD
--- NOTE | 2017-04-04 20:27 | PN ---
DATE: 04/04/2017 SUBJECTIVE: The patient is seen earlier in room 241, he is sitting up in the bed, no acute distress, nontoxic. PHYSICAL EXAMINATION: VITAL SIGNS: Temperature is 98, blood pressure is 120/70, and respiratory rate is 16. HEENT: Unremarkable. NECK: Supple. LUNGS: Have a decreased breath sounds. HEART: Normal S1 and S2. ABDOMEN: Soft and nontender. LABORATORY DATA: Reveals a white count of 7.7 and sed rate of 18. Chemistry reveals a BUN of 20, creatinine of 1.0, and procalcitonin is 0.05. ASSESSMENT AND PLAN: This is a 56-year-old male, seen earlier this morning in the room 241, doing well with morbid obesity with a BMI of 41, chronic obstructive lung disease, anxiety, coronary artery disease, congestive heart failure, cardiomyopathy, atrial fibrillation, history of renal disease and hypertension, presenting with left leg cellulitis negative bone scan, on p.o. doxycycline to complete a dose of 5 days. Case discussed with Dr. Villagomez. Nikolay Barba MD
== END 2017-04-04 14:46 | disposition home or self-care (01) | DRG 300 ==
LOC: ED 15:58 → ERH 19:54 → 3RSO 22:09 → ERH 22:23 → 3RSO 04-01 01:22 → OBSVTOIN 04-02 09:02 → 2A 04-02 22:40
PROVIDERS: ADMIT Internal Medicine Nephrology; ATTEND Internal Medicine Nephrology
DX: E11.51 Type 2 diabetes mellitus with diabetic peripheral angiopathy without gangrene (principal); L97.929 Non-pressure chronic ulcer of unspecified part of left lower leg with unspecified severity; E11.622 Type 2 diabetes mellitus with other skin ulcer; I42.9 Cardiomyopathy, unspecified; E66.01 Morbid (severe) obesity due to excess calories; E83.42 Hypomagnesemia; I50.22 Chronic systolic (congestive) heart failure; L03.116 Cellulitis of left lower limb; Z68.41 Body mass index [BMI] 40.0-44.9, adult; I11.0 Hypertensive heart disease with heart failure; I25.10 Atherosclerotic heart disease of native coronary artery without angina pectoris; J44.9 Chronic obstructive pulmonary disease, unspecified; I48.0 Paroxysmal atrial fibrillation; E78.5 Hyperlipidemia, unspecified; F31.9 Bipolar disorder, unspecified; F41.9 Anxiety disorder, unspecified; Z79.01 Long term (current) use of anticoagulants; Z79.4 Long term (current) use of insulin; Z79.899 Other long term (current) drug therapy; Z86.718 Personal history of other venous thrombosis and embolism; Z87.891 Personal history of nicotine dependence; Z91.14 Patient's other noncompliance with medication regimen; Z91.19 Patient's noncompliance with other medical treatment and regimen; Z95.5 Presence of coronary angioplasty implant and graft; Z95.810 Presence of automatic (implantable) cardiac defibrillator; Z98.84 Bariatric surgery status; Z88.8 Allergy status to other drugs, medicaments and biological substances; Z91.018 Allergy to other foods; I51.7 Cardiomegaly; R07.89 Other chest pain

== ENCOUNTER 2017-05-14 08:05 | Inpatient (IN) | payer MEDICARE, OTHER ==
[2017-05-14 08:05] VITALS: PULSE 74
[2017-05-14] MEDS ORDERED: Albuterol-Ipratrop 3 mg / 0.5 (3 ml) UD IH STA ×2 (08:35→13:27)
--- NOTE | 2017-05-14 08:40 | ED PDOC ---
Arrival/HPI - General Chief Complaint: Chest Pain Time Seen by Provider: 05/14/17 08:14 Historian: Patient - History of Present Illness Narrative History of Present Illness (Text): you were treated in the ED today for history of HTN, Afib on coumadin, on PPM, CAD, COPD, who was recently discharged in March for left leg cellulitis with both lower legs ultrasound negative for deep vein clot 03/31/17, and now with difficulty breathing, chest pain intermittently but non-now and yellow productive cough but otherwise without any nausea/vomiting/headache/dizziness/ abdomen pain/numbness/tingling/loss of limb function/pain with urination. You feel like having a COPD flare-up. Time/Duration: 24 hours, Other Symptom Onset: Gradual Symptom Course: Unchanged Quality: Aching Severity Level: 1 Activities at Onset: Rest Context: Sitting Past Medical History - Provider Review Nursing Documentation Reviewed: Yes - Travel History Have you recently traveled outside [place] w/in the past 3 mons?: No - Infectious Disease Hx of Infectious Diseases: None - Tetanus Immunization Tetanus Immunization: Unknown - Cardiac Hx Cardiac Disorders: Yes Hx Congestive Heart Failure: Yes Hx NV: Yes Hx Hypertension: Yes Hx Pacemaker: Yes - Pulmonary Hx Chronic Obstructive Pulmonary Disease (COPD): Yes - Neurological Hx Dizziness: Yes - HEENT Hx HEENT Disorder: Yes (admits using glasses) - Renal Hx Renal Disorder: No - Endocrine/Metabolic Hx Diabetes Mellitus Type 2: Yes - Hematological/Oncological Hx Blood Disorders: No - Integumentary Hx Dermatological Disorder: No - Musculoskeletal/Rheumatological Hx Falls: No - Gastrointestinal Hx Gastrointestinal Disorders: No - Genitourinary/Gynecological Hx Genitourinary Disorders: No - Psychiatric Hx Anxiety: Yes Hx Bipolar Disorder: Yes Hx Depression: Yes Hx Substance Use: Yes (COCAINE, QUIT 25 YRS AGO) - Past Surgical History Past Surgical History: Non-Contributing - Surgical History Hx Cardiac Catheterization: Yes Hx Coronary Stent: Yes Hx Gastric Bypass Surgery: Yes - Anesthesia Hx Anesthesia: Yes Hx Anesthesia Reactions: No Hx Malignant Hyperthermia: No - Suicidal Assessment Feels Threatened In Home Enviroment: No Family/Social History - Physician Review Nursing Documentation Reviewed: Yes Family/Social History: No Known Family HX Smoking Status: Former Smoker Hx Alcohol Use: Yes (QUIT 25 YRS AGO) Hx Substance Use: Yes (COCAINE, QUIT 25 YRS AGO) Hx Substance Use Treatment: Yes Allergies/Home Meds Allergies/Adverse Reactions: Allergies quetiapine fumarate [From Seroquel] Adverse Reaction (Verified 05/14/17 08:17) ANAPHYLAXIS wild berries Allergy (Intermediate, Uncoded 12/05/16 08:32) RASH Home Medications: Home Meds Medication Instructions Recorded Confirmed diltiaZEM [Cardizem] 30 mg PO BID 02/25/17 05/14/17 Insulin Detemir [Levemir] 40 unit SC ACBD 03/31/17 05/14/17 Acetaminophen/Oxycodone Hydr 1 tab PO PRN PRN 05/14/17 05/14/17 [Percocet 10/325 mg Tab] Furosemide [Lasix] 40 mg PO TID 05/14/17 05/14/17 Warfarin [Coumadin] 7 mg PO HS 05/14/17 05/14/17 Review of Systems - Review of Systems Constitutional: Normal Eyes: Normal ENT: Normal Respiratory: SOB, Cough Cardiovascular: Chest Pain Gastrointestinal: Normal Genitourinary Male: Normal Musculoskeletal: Normal Skin: Normal Neurological: Normal Endocrine: Normal Hemo/Lymphatic: Normal Psychiatric: Normal Physical Exam Vital Signs Reviewed: Yes Vital Signs Temp Pulse Pulse Resp BP Pulse Ox 05/14/17 12:19 97.7 F 80 16 120/75 94 L 05/14/17 08:30 73 05/14/17 08:18 97.4 F L 80 16 134/68 95 Temperature: Afebrile Blood Pressure: Hypertensive Pulse: Regular Respiratory Rate: Normal Appearance: Positive for: Well-Appearing, Non-Toxic, Comfortable Pain Distress: None Mental Status: Positive for: Alert and Oriented X 3 - Systems Exam Head: Present: Atraumatic, Normocephalic Pupils: Present: PERRL Extroacular Muscles: Present: EOMI Conjunctiva: Present: Normal Ears: Present: Normal Mouth: Present: Moist Mucous Membranes Pharnyx: Present: Normal Nose (External): Present: Atraumatic Nose (Internal): Present: Normal Inspection Neck: Present: Normal Range of Motion Respiratory/Chest: Present: Clear to Auscultation, Good Air Exchange Cardiovascular: Present: Regular Rate and Rhythm Abdomen: No: Tenderness, Distention, Normal Bowel Sounds, Peritoneal Signs, Rebound, Guarding, McBurney's Point Tender, Rovsing's Sign Present, Hernias, Feeding Tubes, Ostomy Tubes, Mass/Organomegaly, Scars, Other Back: Present: Normal Inspection Upper Extremity: Present: Normal Inspection Lower Extremity: Present: Normal Inspection Neurological: Present: GCS=15, CN II-XII Intact, Speech Normal, Motor Func Grossly Intact Skin: Present: Warm, Normal Color Psychiatric: Present: Alert, Oriented x 3, Normal Insight, Normal Concentration Medical Decision Making ED Course and Treatment: you were treated in the ED today for history of HTN, Afib on coumadin with PPM, CAD, COPD, who was recently discharged in March for left leg cellulitis with both lower legs ultrasound negative for deep vein clot 03/31/17, and now with difficulty breathing, chest pain intermittently but non-now and yellow productive cough but otherwise without any nausea/vomiting/headache/dizziness/ abdomen pain/numbness/tingling/loss of limb function/pain with urination. You feel like having a COPD flare-up. You were otherwise breathing easily, pink moist lips, smiling and talking easily, good strength/sensation, alert/oriented , walking easily, clear lungs, no abdomen tenderness, no fever temp 97.4, stable heart rate 80, stable breathing rate 16, excellent oxygen level 95% room air, elevated blood pressure 134/68 which we recommend repeat in 2-3 days primary care office to determine further treatment, you have blood tests no infection count 11, stable blood level hemoglobin 12/platelets 193, stable chemistry, heart blood test indeterminate 0.05, heart failure 1030 mild, INR 2.13, radiology chest xray mild vascular congestion, ECG similar to prior, steroids/duoneb, done in the ED without improvement, d/w Dr. Corona and will admit for obs. Report Date : 05/14/2017 11:45:25 Procedure: Chest xray Dictator : Angela Renee MD IMPRESSION: Cardiomegaly and mild pulmonary vascular congestion. 05/14/17 13:29 Reassessment Condition: Re-examined, Unchanged - Lab Interpretations Lab Results: 05/14/17 08:40 05/14/17 08:40 Lab Results 05/14/17 08:40: PT 24.9 H, INR 2.13 H, APTT 34.2 05/14/17 08:40: Sodium 142, Potassium 4.3, Chloride 106, Carbon Dioxide 26, Anion Gap 14, BUN 18, Creatinine 0.9, Est GFR ( Amer) > 60, Est GFR (Non- Af Amer) > 60, Random Glucose 279 H, Calcium 9.0, Magnesium 1.8, Total Bilirubin 0.4, AST 20, ALT 27, Alkaline Phosphatase 64, Lactate Dehydrogenase 402, Total Creatine Kinase 50, Troponin I 0.05, NT-Pro-B Natriuret Pep 1030 H, Total Protein 6.1, Albumin 3.6, Globulin 2.6, Albumin/Globulin Ratio 1.4 05/14/17 08:40: WBC 11.3 H D, RBC 4.54, Hgb 12.8 L, Hct 39.9 L, MCV 87.9, MCH 28.2, MCHC 32.1, RDW 15.6 H, Plt Count 193, MPV 10.4, Gran % 83.2 H, Lymph % ( Auto) 9.7 L, [place] % (Auto) 4.9, Eos % (Auto) 1.8, Baso % (Auto) 0.4, Gran # 9.43 H, Lymph # (Auto) 1.1 L, [place] # (Auto) 0.6, Eos # (Auto) 0.2, Baso # (Auto ) 0.05 I have reviewed the lab results: Yes - RAD Interpretation Radiology Orders: 05/14/17 08:33 CHEST TWO VIEWS (PA/LAT) [RAD] Stat Pipe Liner: Radiologist (see mdm) - EKG Interpretation Interpreted by ED Physician: Yes Type: 12 lead EKG Comparison: Similar to previous EKG (03/31/17) - Medication Orders Current Medication Orders: Discontinued Medications Albuterol/Ipratropium (Duoneb 3 Mg/0.5 Mg (3 Ml) Ud) 3 ml IH STAT STA Stop: 05/14/17 08:36 Last Admin: 05/14/17 08:39 Dose: 3 ml Methylprednisolone (Solu-Medrol) 125 mg IVP STAT STA Stop: 05/14/17 08:36 Last Admin: 05/14/17 08:39 Dose: 125 mg IVP Administration Document 05/14/17 08:39 OCS (Rec: 05/14/17 08:39 OCS [id number]) Charges for Administration # of IVP Administrations 1 Disposition/Present on Arrival - Present on Arrival Any Indicators Present on Arrival: No History of DVT/PE: No History of Uncontrolled Diabetes: No Urinary Catheter: No History of Decub. Ulcer: No History Surgical Site Infection Following: None - Disposition Have Diagnosis and Disposition been Completed?: Yes Diagnosis: Congestive heart failure (CHF), COPD (chronic obstructive pulmonary disease) Disposition: HOSPITALIZED Disposition Time: 13:30 Patient Plan: Admission Condition: STABLE Discharge Instructions (ExitCare): Heart Failure (ED) Forms: [employer] (Hebrew)
[2017-05-14 09:05] LABS: ALB/GLOB RATIO 1.4 (1.1-1.8); ALBUMIN 3.6 g/dL (3.0-4.8); ALT/SGPT 27 U/L (7-56); AST/SGOT 20 U/L (17-59); BLOOD UREA NITROGEN 18 mg/dL (7-21); GFR AFRICAN-AMERICAN > 60; GFR NON-AFRICAN AMERICAN > 60; MAGNESIUM 1.8 mg/dL (1.7-2.2)
[2017-05-14 09:06] LABS: BASO # 0.05 K/mm3 (0.0-2.0); BASO % 0.4 % (0.0-3.0); EOS # 0.2 (0.0-0.7); EOS % 1.8 % (1.5-5.0); GRAN # 9.43 (1.4-6.5); GRAN % 83.2 % (50.0-68.0); HEMOGLOBIN 12.8 g/dL (14.0-18.0); LYMPH # 1.1 (1.2-3.4); LYMPH % 9.7 % (22.0-35.0); MEAN CELL VOLUME 87.9 fl (80.0-105.0); MEAN CORPUSCULAR HEMOGLOBIN 28.2 pg (25.0-35.0); MEAN CORPUSCULAR HGB CONC 32.1 g/dl (31.0-37.0); MEAN PLATELET VOLUME 10.4 fl (7.0-11.0); MONO # 0.6 (0.1-0.6); MONO % 4.9 % (1.0-6.0); RBC 4.54 10^6/uL (3.5-6.1); RED CELL DISTRIBUTION WIDTH 15.6 % (11.5-14.5); WHITE BLOOD COUNT 11.3 10^3/ul (4.5-11.0)
[2017-05-14 09:17] LABS: B-TYPE NATRIURETIC PEPTIDE 1030 pg/mL (0-450); TROPONIN I 0.05 ng/mL
[2017-05-14 09:18] LABS: INR 2.13 (0.93-1.08); PARTIAL THROMBOPLASTIN TIME 34.2 Seconds (25.1-36.5); PROTHROMBIN TIME 24.9 SECONDS (9.4-12.5)
--- NOTE | 2017-05-14 11:04 | CARD ---
APPROVED REPORT EKG Measurement Heart [id number] <Conclusion> Pacemaker Rishi.
--- NOTE | 2017-05-14 11:46 | RAD ---
HISTORY: 56yoM, sob, cough COMPARISON: Comparison is made with 03/31/2017 TECHNIQUE: Chest PA and lateral FINDINGS: LUNGS: Mild pulmonary vascular congestion is noted. PLEURA: No evidence of significant pleural effusion. CARDIOVASCULAR: Cardiomegaly is again seen. Left-sided pacemaker is seen in place. OSSEOUS STRUCTURES: No significant abnormalities. VISUALIZED UPPER ABDOMEN: Normal. OTHER FINDINGS: None. IMPRESSION: Cardiomegaly and mild pulmonary vascular congestion.
[2017-05-14] MEDS ORDERED: Oxycodone/Acetaminophen 10/325 mg Tab PO PRN (15:46)
[2017-05-14] MEDS: Insulin Detemir 100 units/ml Vial (Levemir) SC SCH (16:30)
[2017-05-14] MEDS: Insulin Lispro (HUMAlog) HIGH Coverage SC SCH ×2 (16:31→21:22)
[2017-05-14] MEDS ORDERED: Azithromycin 500MG/NS 250ml 500 MG/250 ML BAG IVPB STA (17:11)
[2017-05-14 17:32] LABS: TROPONIN I 0.04 ng/mL
[2017-05-14] MEDS: Cilostazol 100 mg Tab UD PO SCH (17:52)
[2017-05-14 18:21] VITALS: BMI 41.8
[2017-05-14] MEDS ORDERED: Influenza Vaccine 60 mcg/0.5 mL SYR (4YR UP) IM ONE (18:21)
[2017-05-14] MEDS ORDERED: Pneumococcal 23-Valent Vaccine IM ONE (18:21)
[2017-05-14] MEDS ORDERED: Albuterol-Ipratrop 3 mg / 0.5 (3 ml) UD IH SCH (20:00)
[2017-05-14] MEDS: Albuterol-Ipratrop 3 mg / 0.5 (3 ml) UD IH SCH (20:59)
[2017-05-14] MEDS: Levalbuterol 0.63 MG/3 ML Inhal Soln UD IH SCH (21:00)
[2017-05-14 21:37] LABS: TROPONIN I 0.04 ng/mL
--- NOTE | 2017-05-15 04:44 | CON ---
DATE: 05/14/2017 REASON FOR CONSULTATION: Chest pain, shortness of breath, history of atrial fibrillation, history of cardiomyopathy, history of AICD, history of radiofrequency ablation. HISTORY OF PRESENT ILLNESS: This is a 56-year-old male with past medical history significant for nonischemic cardiomyopathy, secondary to systolic dysfunction; paroxysmal atrial fibrillation; history of radiofrequency ablation; history of AICD, admitted with complaint of shortness of breath, bringing yellow colored sputum and phlegm and complaining of dyspnea on exertion. PAST MEDICAL HISTORY: Significant for cardiac catheterization 2 to 3 years ago that showed nonobstructive coronary artery disease, history of cardiomyopathy, history of multiple admissions, history of tobacco abuse with history of alcohol abuse, noncompliance with medications, history of AICD at [facility] by Dr. Bonilla after having ablation for atrial fibrillation. PAST SURGICAL HISTORY: Significant for gastric bypass, thrombectomy due to acute occlusion of the left extremity artery, history of AICD placement, history of cardiac catheterization 2 to 3 years ago, nonobstructive coronary artery disease; history of radiofrequency ablation and AICD at [facility]. PREVIOUS CARDIAC WORKUP: As follows: The patient had recently a MUGA scan that shows LV ejection fraction of 43%, improvement from before. Cardiac catheterization 2 to 3 times at [facility], last catheterization was in 2014, nonobstructive coronary artery disease, EDP in the range of 30, history of AICD placement. Last echo on 08/15/2016 shows mildly dilated LV, decreased LV function, ejection fraction of 25%, moderately dilated RV systolic function, RV decreased. SOCIAL HISTORY: History of alcohol abuse, history of tobacco abuse. CURRENT MEDICATIONS: The patient is supposed to take Cardizem 30 mg b.i.d.; warfarin 7 mg; lisinopril; insulin; Lasix; , not sure what the patient is taking, says that the medicine is expensive and sometime does not take the medicine. ALLERGIES: ALLERGY TO WILD [place], ALLERGY TO SEROQUEL. REVIEW OF SYSTEMS: As per HPI. PHYSICAL EXAMINATION: VITAL SIGNS: Temperature is afebrile, heart rate is 80, blood pressure 136/78. HEENT: PERRLA, extraocular muscles intact. NECK: Supple. No carotid bruits or thyromegaly. CHEST: Clear to auscultation. HEART: S1 and S2 regular. ABDOMEN: Soft. EXTREMITIES: Clubbing and cyanosis negative. LABORATORY DATA: WBC 11.8, hemoglobin 12.8, hematocrit 39.9, and platelet count 193. Chemistry shows sodium 140, potassium 4.0, chloride 106, carbon dioxide 26, anion gap of 14, BUN 18, and creatinine 0.9. BNP 1030. IMPRESSION: Decompensated congestive heart failure, [id number] systolic dysfunction; probably chronic obstructive pulmonary disease exacerbation; diabetes; hypertension; hyperlipidemia; obesity; cardiomyopathy, nonischemic; status post cardiac catheterization, nonobstructive coronary artery disease; history of paroxysmal atrial fibrillation, status post automatic implantable cardioverter defibrillator, on Coumadin. INR today is therapeutic at 2.13. RECOMMENDATIONS: Continue gentle diuretics, broad-spectrum antibiotic, continue Cardizem to control the heart rate. We will give Zithromax and we will have patient bring some phlegm, empirically treat; elevated WBC, I will do the blood culture and repeat x-ray of chest in the morning. Continue IV Lasix. We will follow with you. It has already been ordered but doubt this is cardiac, most likely it is COPD exacerbation, but because of the multiple risks, I cannot definitely tell for sure cardiac troponin is done and WI is ruled out. Thank you, for providing us the opportunity in taking care of the patient, Pete Johnson. We will put low-dose of Coreg as well. The patient is very noncompliant. Chest x-ray, very poor films, patchy infiltrate, cannot rule out early pneumonia versus CHF. EKG showed pacemaker rhythm. Tia Rajan MD
--- NOTE | 2017-05-15 06:00 | CON ---
DATE: 05/14/2017 PULMONARY CONSULTATION REFERRING PHYSICIAN: Dr. Axel Villagomez. REASON FOR CONSULTATION: Cough, shortness of breath, leg swelling. HISTORY OF PRESENT ILLNESS: This is a 56-year-old gentleman with multiple medical issues including cardiomyopathy, coronary artery disease, cardiac arrhythmia, requiring AICD, pulmonary hypertension, obstructive sleep apnea syndrome, obstructive lung disease, obesity, noncompliant with the CPAP/BiPAP, also noncompliant with the diet, also has AFib, comes in with cough, shortness of breath, leg swelling, received diuretics and inhaled bronchodilator with some benefit, but continued syndrome, got admitted for further workup. He is out of bed to chair. Does have a cough, shortness of breath. No nausea, no vomiting. No diarrhea. Increased abdominal girth, increased leg swelling. PAST MEDICAL HISTORY: As per history of present illness. SOCIAL HISTORY: Has a history of smoking and substance abuse in the remote past, also history of alcohol abuse in the remote past. FAMILY HISTORY: No significant cardiopulmonary disease reported. ALLERGY: QUETIAPINE WITH ANAPHYLAXIS, ALSO ALLERGIC TO BERRIES. MEDICATIONS: Amaryl 4 mg daily, Ativan 1 mg twice a day p.r.n., Cardizem 30 mg twice a day, Coreg 3.125 mg twice a day, Coumadin 6 mg will be given today, trazodone 150 mg daily, DuoNeb q. 8 hours round the clock, metformin 1000 mg twice a day, insulin coverage, Lasix 40 mg daily, Levemir 40 units subcu a.c. twice a day, Neurontin 300 mg twice a day, Percocet 10/325 one tab q. 6 hours p.r.n., Pletal 100 mg twice a day, Singulair 10 mg daily, Zestril 2.5 mg daily, Zithromax 500 mg daily. REVIEW OF SYSTEMS: No headache, no rhinitis. Has some cough, clear sputum. No chest pain. No nausea, no vomiting. No diarrhea. Increased abdominal girth, has leg swelling. PHYSICAL EXAMINATION: GENERAL: Sitting up in a chair, mild distress due to cough and shortness of breath. VITAL SIGNS: Temperature is 98, heart rate 69, respiratory rate is 20, blood pressure 120/59, pulse ox 95% room air. HEENT: Moist mucous membrane. Crowded airway. Mallampati score is IV. NECK: Supple. No JVD. LUNGS: Has crackles and scattered rhonchi. HEART: S1 and S2. ABDOMEN: Soft, nontender, no organomegaly. EXTREMITIES: Does have edema up to the thigh. NEUROLOGICALLY: Awake, alert, follows simple commands. LABORATORY DATA: Shows hemoglobin 12.8, hematocrit 39.9, WBC 11.3, platelet is 193. His INR is 2.13. Sodium 142, potassium 4.3, chloride 106, bicarbonate 26, BUN 18, creatinine 0.9, glucose 282, calcium 9.0, magnesium 1.8, AST 20, ALT 27, alk phos is 64. LDH 382. Troponin 0.04. ProBNP 1030. Albumin is 3.6. Chest x-ray showed cardiomegaly with mild pulmonary vascular congestion. IMPRESSION AND PLAN: Cardiomyopathy, basilar rhythm is atrial fibrillation, has a history of cardioversion in the past, has automatic implantable cardioverter-defibrillator, pulmonary hypertension, history of asthma, sleep apnea syndrome, but noncompliant with the continuous positive airway pressure and bilevel positive airway pressure, diabetes, hypertension, morbid obesity, noncompliant with followup and medications and diet. I spoke to Dr. Rajan from Cardiology. Zithromax was added. We will add inhaled bronchodilator. Need diuretics, afterload photographic platemaker. Educated the patient about salt water and cardiomyopathy. Follow up labs the morning. Thank you and we will follow with you. Tia Godinez MD
[2017-05-15 06:25] LABS: BASO # 0.01 K/mm3 (0.0-2.0); BASO % 0.1 % (0.0-3.0); GRAN % 91.4 % (50.0-68.0); LYMPH # 0.7 (1.2-3.4); LYMPH % 5.3 % (22.0-35.0); MEAN CELL VOLUME 85.4 fl (80.0-105.0); MEAN CORPUSCULAR HEMOGLOBIN 27.8 pg (25.0-35.0); MEAN CORPUSCULAR HGB CONC 32.6 g/dl (31.0-37.0); MEAN PLATELET VOLUME 10.7 fl (7.0-11.0); MONO # 0.4 (0.1-0.6); MONO % 3.2 % (1.0-6.0); PLATELET COUNT 205 10^3/uL (120.0-450.0); RBC 4.31 10^6/uL (3.5-6.1); RED CELL DISTRIBUTION WIDTH 15.2 % (11.5-14.5); WHITE BLOOD COUNT 13.6 10^3/ul (4.5-11.0)
[2017-05-15 07:10] LABS: LDL CHOLESTEROL 127 mg/dL (0-129)
[2017-05-15] MEDS: Albuterol-Ipratrop 3 mg / 0.5 (3 ml) UD IH SCH ×3 (07:27→19:28)
--- NOTE | 2017-05-15 07:57 | HP ---
CHIEF COMPLAINT AND HISTORY OF PRESENT ILLNESS: This is a 56-year-old male who is coming in to the hospital with atrial fibrillation, on Coumadin; hypertension; coronary artery disease; COPD. The patient was discharged a few weeks ago because of lower extremity cellulitis. He has been complaining of shortness of breath. He states it started extremely worse. He was visited by his visiting nurse and he . The patient has no complaints of any chest pain. No shortness of breath. No nausea. No vomiting. No dysuria or frequency. No nocturia. No weakness in the arms or the legs. All other review of symptoms are within normal limits except as mentioned. He states he has been compliant with his medications. ALLERGIES: SEROQUEL AND MCCULLOUGH. HOME MEDICATIONS: He is on Cardizem, Levemir, Percocet, Lasix, Coumadin. PAST MEDICAL HISTORY 1. COPD. 2. CHF secondary to systolic dysfunction. 3. Diabetes type 2. 4. Hypertension. 5. Peripheral arterial disease. 6. Atrial fibrillation, on Coumadin. 7. Defibrillator. 8. Gastric bypass. 9. Morbid obesity. PAST SURGICAL HISTORY 1. Gastric bypass. 2. Left leg thrombosis with thrombectomy. SOCIAL HISTORY: He is a former smoker, quit smoking more than 25 years ago. He does have a history of cocaine and alcohol use, but has been sober. He lives alone. He is a . FAMILY HISTORY: Noncontributory. PHYSICAL EXAMINATION VITAL SIGNS: He has a temperature of 97.7, pulse of 70, blood pressure is 136/78. Height is 5 feet 8 inches. Weight is 275 pounds. BMI is 41.8. GENERAL: The patient lying in bed, uncomfortable, and in no acute distress. HEENT: Atraumatic and normocephalic. Anicteric sclerae. Moist mucosa. [place] conjunctivae. No oral lesions. NECK: No JVD, anterior and posterior adenopathy, thyromegaly, or bruits. CARDIOVASCULAR: S1 and S2 regular. No murmur, rubs, or gallop. LUNGS: He has bilateral wheezing. No rales or rhonchi. ABDOMEN: Bowel sounds are positive. Soft, nontender and nondistended. No hepatosplenomegaly. No rebound and no guarding EXTREMITIES: No cyanosis, clubbing, or edema. NEUROLOGIC: No facial asymmetry. Tongue is midline. No uvula deviation. Power is 5/5 upper extremity and lower extremity. Sensation intact in upper extremity and lower extremity. PSYCHIATRIC: He is awake, alert and oriented x3. No anxiety or depression. He has normal affect. GENITOURINARY: No CVA tenderness. VASCULAR: 2+ pulses in the carotid pulses and pedal pulses. SKIN: No erythema or nodules SPINE: Shows normal curvature. LABORATORY DATA: He has white count of 11.3, hemoglobin 12.8, INR is 2.1. He has a chemistry that shows a sodium 142, potassium is 4.3. His creatinine is 0.9. His troponin is 0.05. ProBNP is 1030. His chest x-ray done shows cardiomegaly with mild pulmonary vascular congestion. EKG done shows paced rhythm at 78. ASSESSMENT 1. Acute congestive heart failure secondary to systolic dysfunction. 2. Acute chronic obstructive pulmonary disease exacerbation. 3. Diabetes type 2. 4. Hypertension. 5. Peripheral arterial disease. 6. Atrial fibrillation, on Coumadin. 7. Automatic implantable cardioverter-defibrillator. 8. Gastric bypass. 9. Morbid obesity with a body mass index of 42. 10. Peripheral arterial disease with stent in left leg. PLAN: The patient is going to be admitted to the hospital. He has wheezing. He has elevated BNP. The patient has shortness of breath. He has lower extremity edema. He is going to be admitted to the hospital for COPD and CHF exacerbation. He will be on his diabetic medication of Amaryl. He is going to continue his Coumadin for his atrial fibrillation. He is on nebulizer treatments. He is going to be on Lasix twice a day. I will place him on Levemir for his diabetes. He is going to be on Neurontin for his neuropathy. He was given IV Solu-Medrol in the ER. The patient is on nebulizer treatments. He is going to be on Zestril. I will get evaluation by Pulmonary, with Dr. Godinez and Cardiology with Dr. Rajan. The patient is going to be placed on the medical floor. We will await for the input from the specialist. Axel Villagomez MD
[2017-05-15 07:59] LABS: ALB/GLOB RATIO 1.4 (1.1-1.8); ALBUMIN 3.7 g/dL (3.0-4.8); ALT/SGPT 28 U/L (7-56); AST/SGOT 17 U/L (17-59); BLOOD UREA NITROGEN 29 mg/dL (7-21); CALCIUM 9.3 mg/dL (8.4-10.5); GFR AFRICAN-AMERICAN > 60; GFR NON-AFRICAN AMERICAN > 60; HDL CHOLESTEROL 34 mg/dL (29-60); MAGNESIUM 1.9 mg/dL (1.7-2.2)
[2017-05-15] MEDS: Insulin Lispro (HUMAlog) HIGH Coverage SC SCH ×4 (08:15→21:59)
[2017-05-15] MEDS: Insulin Detemir 100 units/ml Vial (Levemir) SC SCH ×2 (08:16→18:01)
[2017-05-15 08:40] VITALS: O2SAT 97
[2017-05-15 08:50] LABS: LYMPHOCYTE 5 % (22.0-35.0); NEUTROPHIL 91 % (50.0-70.0)
[2017-05-15 08:51] LABS: LARGE PLATELETS PRESENT; MONOCYTE 4 % (1.0-6.0)
[2017-05-15] MEDS: Levalbuterol 0.63 MG/3 ML Inhal Soln UD IH SCH (09:09)
--- NOTE | 2017-05-15 10:20 | PN ---
DATE: SUBJECTIVE: The patient has no complaints of any chest pain. He says his shortness of breath is better. He complains of having to move his life to get comfortable. PHYSICAL EXAMINATION: VITAL SIGNS: Temperature is 98.1, pulse is 62, blood pressure 120/70, respirations 20. GENERAL: The patient is lying in bed, flat, comfortable. HEENT: No oral lesion. Anicteric sclerae. Moist mucosa. NECK: No JVD, adenopathy, or thyromegaly. CARDIOVASCULAR: S1 and S2, regular. No murmurs, rubs, or gallops. LUNGS: Clear to auscultation bilaterally. No wheeze, rales, or rhonchi. ABDOMEN: Bowel sounds are positive, soft, nontender and nondistended. LOWER EXTREMITIES: There is 1+ edema. LABORATORY DATA: White count of 13.6, hemoglobin 12, creatinine is 1.1. ASSESSMENT: 1. Acute congestive heart failure secondary to systolic dysfunction. 2. Acute chronic obstructive pulmonary disease exacerbation. 3. Diabetes type 2. 4. Hypertension. 5. Peripheral arterial disease. 6. Atrial fibrillation. 7. Restless legs syndrome. 8. Atrial fibrillation, on Coumadin. 9. Automatic implantable cardioverter-defibrillator. 10. Gastric bypass. 11. Morbid obesity with a BMI of 42. 12. Peripheral arterial disease with stent in the left leg. 13. Congestive heart failure with EF of 35%. PLAN: The patient is currently comfortable. He is currently unaware of his diabetes. He is on Ativan for his anxiety. He is on carvedilol for his heart disease. The patient is on Coumadin for anticoagulation. He is on Lasix twice a day IV. He is on Levemir for his diabetes. He is on Neurontin for his neuropathy. The patient is on ropinirole for his restless leg. He is going to continue his Singulair. He is on lisinopril for his hypertension and his heart disease. He is on heart-healthy diet. I appreciate input from Cardiology and from Pulmonary. He has an echocardiogram done in 09/2016, that showed EF of 35%. Axel Villagomez MD [facility] # [id number]
[2017-05-15] MEDS: Cilostazol 100 mg Tab UD PO SCH ×2 (10:37→18:02)
[2017-05-15] MEDS: Azithromycin 500MG/NS 250ml 500 MG/250 ML BAG IVPB SCH (10:38)
[2017-05-15] MEDS ORDERED: metOLazone 5 MG TAB PO STA (11:03)
[2017-05-15 12:15] LABS: BLOOD UREA NITROGEN 28 mg/dL (7-21); CALCIUM 9.4 mg/dL (8.4-10.5); GFR AFRICAN-AMERICAN > 60; GFR NON-AFRICAN AMERICAN > 60
--- NOTE | 2017-05-15 12:34 | RAD ---
HISTORY: F/U pneumonia and compare COMPARISON: 05/14/2017 TECHNIQUE: Chest PA and lateral FINDINGS: LUNGS: There is improvement in the right lower lobe infiltrate seen previously. The lungs are clear PLEURA: No significant pleural effusion identified. No pneumothorax apparent. CARDIOVASCULAR: Moderate cardiomegaly. Pacemaker OSSEOUS STRUCTURES: No significant abnormalities. VISUALIZED UPPER ABDOMEN: Normal. OTHER FINDINGS: None. IMPRESSION: There is improvement in the right lower lobe infiltrate seen previously. The lungs are clear
--- NOTE | 2017-05-15 15:41 | PN ---
DATE: 05/15/2017 REASON FOR CONSULTATION AND FOLLOWUP: Shortness of breath, chest pain, history of atrial fibrillation, status post radiofrequency ablation, status post AICD, cardiomyopathy. SUBJECTIVE: Patient present with chest pain, but complaining of bilateral leg swelling. OBJECTIVE: GENERAL: Not in apparent distress. VITAL SIGNS: As follows: Temperature afebrile, heart rate 71, blood pressure 110/64. HEENT: PERRLA. Extraocular muscles intact. NECK: Supple. No carotid bruit or thyromegaly. CHEST: Clear to auscultation. HEART: S1, S2, regular. ABDOMEN: Soft. EXTREMITIES: Clubbing and cyanosis negative. LABORATORY DATA: Blood workup as follows: WBC 13.6, hemoglobin 12, hematocrit 36.8, platelet count 205. Chemistry shows sodium 139, potassium 4.3, chloride of 103, carbon dioxide 28, anion gap of 18, BUN 29, creatinine 1.1, blood sugar was 311. TSH 0.47, total protein 6.5, albumin 3.0, albumin-globulin ratio 1.4, and troponin 0.05, 0.04, 0.04. IMPRESSION: No evidence of acute myocardial infarction, history of cardiac catheterization 2 to 3 times, nonobstructive coronary artery disease, history of paroxysmal atrial fibrillation, status post radiofrequency ablation, status post automatic implantable cardioverter-defibrillator, nonischemic cardiomyopathy with ejection fraction around 45%, acute decompensated congestive heart failure, [id number] secondary to systolic dysfunction, chronic obstructive pulmonary disease exacerbation, morbid obesity, peripheral arterial disease, status post deep venous thrombosis and pulmonary embolism. RECOMMENDATIONS: Continue anticoagulation. Today, INR is 2.13. Continue Lasix, continue Cardizem 30 mg to control the heart rate. We will get 5 mg of Zaroxolyn to increase pressure yesterday started, patient was complaining of some yellow colored sputum, so Zithromax was prescribed to rule out any early pneumonia. Repeat chest x-ray PA, lateral is pending this morning. We will review when the chest x-ray has been done. We will start 5 mg of Zaroxolyn today and tomorrow for more diuresis. Repeat the blood workup in the morning. We will send a stat SMA-7 because we are giving the Zaroxolyn and Lasix, so I need to know the potassium . If remain stable, we will discontinue Telemetry. We will follow with you. Thank you, Dr. Villagomez, for providing us the opportunity in taking care of patient, Pete Johnson. Tia Rajan MD
--- NOTE | 2017-05-15 16:29 | IP.NPCORE ---
COPD Progress Note - COPD Progress Note Spirometry Assessment Completed:: No Plan to assess at outpatient follow up: Yes Symptoms:: Increase in Dyspnea, Cough Initial CXR:: mild congestion Date:: 05/14/17 Oxygen Saturation/Pulse Oximetry:: 97 Nebulizers Q2-4 hrs:: Duonebs/Albuterol Therapy Antibiotics (Name/Dose/Frequency):: zithromax 500 mg iv daily Systemic Steroids w/ methylprednisolone Name/Dose/Frequency:: no Oxygen Delivery Method: Nasal Cannula Oxygen Flow Rate: 3 Smoking cessation counseling all stages copd exacerbation: Yes
[2017-05-15 23:55] VITALS: RESP 20; TEMP 97.6
--- NOTE | 2017-05-16 00:31 | PN ---
DATE: 05/15/2017 REFERRING PHYSICIAN: Axel Villagomez MD. SUBJECTIVE: He is out of bed to chair. Night was unremarkable. Feels little better. Decreased cough. Decreased shortness of breath. Does not want to use CPAP. No nausea, no vomiting or diarrhea. Still has significant leg swelling. OBJECTIVE: GENERAL: In no acute distress. VITAL SIGNS: Temp is 98, heart rate is 74, respiratory rate is 20, blood pressure is 112/57, and pulse ox is 97% on 3 L nasal cannula. HEENT: Moist mucous membranes. Crowded airway. Mallampati score is IV. NECK: Supple. No JVD. LUNGS: Has a fair airflow with few rhonchi. HEART: S1 and S2. ABDOMEN: Soft and nontender. No organomegaly. EXTREMITIES: Does have edema up to the hips. NEUROLOGIC: Awake and alert. Follows simple commands. MEDICATIONS: He is on Amaryl 4 mg daily, Ativan 1 mg twice a day p.r.n., Cardizem 30 mg twice a day, Coreg 3.125 mg twice a day, Coumadin 6 mg at bedtime, trazodone 150 mg at bedtime, DuoNeb q. 8 hours, metformin is 1000 mg twice a day, insulin coverage, Lasix 40 mg twice a day, Levemir 40 units subcu a.c. , Neurontin 300 mg twice a day, Percocet 10/325 one tab q. 6 hours p.r.n., Pletal 100 mg twice a day, prednisone 20 mg daily, Requip 0.25 mg 3 times a day, Singulair 10 mg daily, Zaroxolyn 5 mg daily, Zestril 2.5 mg daily, Zithromax 500 mg daily. LABORATORY DATA: Shows hemoglobin 12.0, hematocrit 36.3, WBC 13.6, platelet is 205. Sodium 138, potassium 4.3, chloride 102, bicarbonate 23, BUN 28, creatinine 1.0, glucose 166, calcium 9.4. Microbiology: Blood culture, there is no growth. Chest x-ray done this morning, there is improvement of the right lower lobe infiltrate. IMPRESSION AND PLAN: Cardiomyopathy, atrial fibrillation, history of cardioversion, has automatic implantable cardioverter-defibrillator, congestive heart failure, pulmonary hypertension, asthma, sleep apnea syndrome, does not use CPAP/BiPAP, diabetes, hypertension, obesity. Pulmonary point of view, doing well. Keep head elevated at 45 degrees. Continue antibiotics, p.o. and inhaled bronchodilators, diuretics, afterload national account director, anticoagulation, gastric prophylaxis. Follow up labs in the morning. Thank you and we will follow with you. Tia Godinez MD
[2017-05-16 05:37] VITALS: BP 102/62
[2017-05-16 06:37] LABS: BASO # 0.03 K/mm3 (0.0-2.0); BASO % 0.2 % (0.0-3.0); EOS # 0.1 (0.0-0.7); EOS % 0.7 % (1.5-5.0); GRAN # 11.53 (1.4-6.5); GRAN % 78.5 % (50.0-68.0); HEMOGLOBIN 12.5 g/dL (14.0-18.0); LYMPH # 2.2 (1.2-3.4); LYMPH % 15.2 % (22.0-35.0); MEAN CELL VOLUME 86.5 fl (80.0-105.0); MEAN CORPUSCULAR HEMOGLOBIN 28.2 pg (25.0-35.0); MEAN CORPUSCULAR HGB CONC 32.6 g/dl (31.0-37.0); MEAN PLATELET VOLUME 10.2 fl (7.0-11.0); MONO # 0.8 (0.1-0.6); MONO % 5.4 % (1.0-6.0); RBC 4.44 10^6/uL (3.5-6.1); RED CELL DISTRIBUTION WIDTH 15.6 % (11.5-14.5); WHITE BLOOD COUNT 14.7 10^3/ul (4.5-11.0)
[2017-05-16 06:50] LABS: INR 2.74 (0.93-1.08); PROTHROMBIN TIME 32.2 SECONDS (9.4-12.5)
[2017-05-16 07:32] LABS: ALB/GLOB RATIO 1.4 (1.1-1.8); ALBUMIN 4.1 g/dL (3.0-4.8); ALT/SGPT 24 U/L (7-56); AST/SGOT 21 U/L (17-59); BLOOD UREA NITROGEN 28 mg/dL (7-21); GFR AFRICAN-AMERICAN > 60; GFR NON-AFRICAN AMERICAN > 60; MAGNESIUM 1.9 mg/dL (1.7-2.2)
[2017-05-16] MEDS: Albuterol-Ipratrop 3 mg / 0.5 (3 ml) UD IH SCH (07:44)
[2017-05-16] MEDS: Insulin Lispro (HUMAlog) HIGH Coverage SC SCH (08:05)
[2017-05-16] MEDS: Insulin Detemir 100 units/ml Vial (Levemir) SC SCH (08:15)
[2017-05-16] MEDS: Cilostazol 100 mg Tab UD PO SCH (09:47)
[2017-05-16 09:48] VITALS: PULSE 72
[2017-05-16] MEDS: Azithromycin 500MG/NS 250ml 500 MG/250 ML BAG IVPB SCH (09:48)
[2017-05-16] MEDS ORDERED: metOLazone 5 MG TAB PO SCH (10:00)
--- NOTE | 2017-05-16 14:59 | PN ---
DATE: REASON FOR CONSULTATION: Follow up shortness of breath, chest pain, history of atrial fibrillation, status post radiofrequency ablation, status post AICD, cardiomyopathy. SUBJECTIVE: The patient denies any chest pain, shortness of breath or any palpitation. The patient is complaining of leg swelling. PHYSICAL EXAMINATION GENERAL: Not in apparent distress. VITAL SIGNS: As follows: Temperature afebrile, heart rate 75, and blood pressure 102/62. HEENT: PERRLA. Extraocular muscles intact. NECK: Supple. No carotid bruits or thyromegaly. CHEST: Clear to auscultation. HEART: S1 and S2 regular. ABDOMEN: Soft. EXTREMITIES: Clubbing and cyanosis negative. LABORATORY DATA: WBC 14.3, hemoglobin 12.5, hematocrit 38.4, platelet count of 210. Chemistry shows sodium 139, potassium 3.8, chloride 98, carbon dioxide 30, anion gap of 15, BUN 28, creatinine 1.0. IMPRESSION: Decompensated congestive heart failure, chronic obstructive pulmonary disease exacerbation, diabetes, hypertension, hyperlipidemia, morbid obesity, radiofrequency ablation, ex-tobacco abuse, ex-alcohol abuse; status post automatic implantable cardioverter-defibrillator, cardiomyopathy, peripheral arterial disease; status post deep venous thrombosis, pulmonary embolism, on anticoagulation. RECOMMENDATION: Continue Coreg. Continue cilostazol. Continue Cardizem. Continue Coumadin. Continue lisinopril. We will follow with you. Thank you, Dr. Villagomez, for providing us the opportunity in taking care of the patient, Pete Johnson. Tia Rajan MD
--- NOTE | 2017-05-17 05:14 | DS ---
HISTORY OF PRESENT ILLNESS: This is a 56-year-old female, who is coming in to the hospital with complaints of shortness of breath. The patient states he is feeling better. He has no complaints of any headaches, no dizziness, no nausea, no vomiting. His leg is better. He states his restless leg has improved with the medications he is taking. He is able to walk better. PHYSICAL EXAMINATION: VITAL SIGNS: Temperature is 97.6, pulse is 75, blood pressure is 102/62, respirations 20. GENERAL: The patient is lying in bed, flat, comfortable. HEENT: No oral lesion. Anicteric sclerae. Moist mucosa. NECK: No JVD, adenopathy, or thyromegaly. CARDIOVASCULAR: S1 and S2, regular. No murmurs, rubs, or gallops. LUNGS: Clear to auscultation bilaterally. No wheeze, rales, or rhonchi. ABDOMEN: Bowel sounds are positive, soft, nontender and nondistended. EXTREMITIES: No cyanosis, clubbing or edema. ASSESSMENT: 1. Acute congestive heart failure secondary to systolic dysfunction. 2. Acute chronic obstructive pulmonary disease, improved. 3. Diabetes type 2. 4. Hypertension. 5. Peripheral arterial disease. 6. Restless legs syndrome. 7. Atrial fibrillation, on Coumadin. 8. Automatic implantable cardioverter defibrillator. 9. Gastric bypass. 10. Morbid obesity with a body mass index of 42. 11. Congestive heart failure, ejection fraction of 55% with peripheral arterial disease with stenting of the left leg. PLAN: The patient is on Amaryl for his diabetes, he is going to continue. He is on Ativan as needed for his anxiety. He is on Cardizem. The patient is going to continue with Coumadin. He is on trazodone. The patient is on Lasix twice a day. He is on ropinirole for his restless legs, this will be continued. The patient is on heart-healthy diet. I refilled his Ativan, trazodone, and Amaryl. He also is going to be continued on Requip in the nighttime. The patient is going to be discharged home with followup. He was advised to come in to the hospital if he has worsening of his symptoms. CONDITION: Stable. ACTIVITY: Increase as tolerated. FOLLOWUP: 1. Follow up with Dr. Villagomez in one to two weeks. 2. Follow up with Dr. Rajan in two to three weeks. 3. Follow up with Dr. Godinez in three to four weeks. Axel Villagomez MD
== END 2017-05-16 11:18 | disposition home or self-care (01) | DRG 190 ==
LOC: ED 08:05 → ERH 13:34 → 3RNO 14:50 → OBSVTOIN 05-15 12:40
PROVIDERS: ADMIT Internal Medicine Nephrology; ATTEND Internal Medicine Nephrology
DX: J44.1 Chronic obstructive pulmonary disease with (acute) exacerbation (principal); I50.23 Acute on chronic systolic (congestive) heart failure; I27.20 Pulmonary hypertension, unspecified; E11.51 Type 2 diabetes mellitus with diabetic peripheral angiopathy without gangrene; E66.01 Morbid (severe) obesity due to excess calories; I42.9 Cardiomyopathy, unspecified; I48.0 Paroxysmal atrial fibrillation; G25.81 Restless legs syndrome; L03.119 Cellulitis of unspecified part of limb; Z68.41 Body mass index [BMI] 40.0-44.9, adult; E78.5 Hyperlipidemia, unspecified; F10.10 Alcohol abuse, uncomplicated; F31.9 Bipolar disorder, unspecified; G47.30 Sleep apnea, unspecified; I11.0 Hypertensive heart disease with heart failure; I25.10 Atherosclerotic heart disease of native coronary artery without angina pectoris; I25.2 Old myocardial infarction; Z79.01 Long term (current) use of anticoagulants; Z86.711 Personal history of pulmonary embolism; Z86.718 Personal history of other venous thrombosis and embolism; Z87.891 Personal history of nicotine dependence; Z91.14 Patient's other noncompliance with medication regimen; Z95.0 Presence of cardiac pacemaker; Z95.5 Presence of coronary angioplasty implant and graft; Z95.810 Presence of automatic (implantable) cardiac defibrillator; Z98.84 Bariatric surgery status

== ENCOUNTER 2017-05-28 21:20 | Inpatient (IN) | payer MEDICARE, OTHER ==
[2017-05-28 21:20] VITALS: PULSE 74; BMI 41.8
--- NOTE | 2017-05-28 22:56 | ED PDOC ---
Arrival/HPI - General Chief Complaint: Lower Extremity Problem/Injury Time Seen by Provider: 05/28/17 22:24 Historian: Patient - History of Present Illness Narrative History of Present Illness (Text): 05/28/17 22:30 56 year old male, whose past medical history includes COPD, CHF, diabetes, hypertension, chronic leg wound, atrial fibrillation on Coumadin, cardiac defibrillator, and obesity, presents to the emergency department complaining of shortness of breath for the past couple of days with chest discomfort at times. Patient is also complaining of chronic pain to area of his lower leg where chronic healed ulcer remains.States he has diabetic neuropathy. Patient denies any fever, chills, cough, nausea, vomiting, diarrhea, back pain, neck pain, headache, dizziness, or any other complaints. Time/Duration: Other (past couple of days) Symptom Onset: Gradual Symptom Course: Unchanged Activities at Onset: Light Context: Home Past Medical History - Provider Review Nursing Documentation Reviewed: Yes - Infectious Disease Hx of Infectious Diseases: None - Tetanus Immunization Tetanus Immunization: Unknown - Cardiac Hx Congestive Heart Failure: Yes Hx Hypertension: Yes - Pulmonary Hx Chronic Obstructive Pulmonary Disease (COPD): Yes - Neurological Hx Dizziness: Yes Other/Comment: numbness both thighs, pt stated "I was in a coma for 2 weeks from seroquel - HEENT Hx HEENT Disorder: Yes (eyeglasses, [place]) Other/Comment: eye sx for strabismus - Renal Hx Renal Disorder: No - Endocrine/Metabolic Hx Diabetes Mellitus Type 2: Yes - Hematological/Oncological Hx Blood Disorders: No - Integumentary Hx Dermatological Disorder: Yes Other/Comment: ble slight redness discolorations dry skin 1.5cm x 1cm dry deep red scabb to outer lower left leg surrounded by red,dry skin, c/o severe pain - Musculoskeletal/Rheumatological Hx Arthritis: Yes Hx Falls: No Hx Unsteady Gait: Yes (cane) - Gastrointestinal Hx Gastrointestinal Disorders: Yes (obese) Hx Gastroesophageal Reflux: Yes - Genitourinary/Gynecological Hx Genitourinary Disorders: No - Psychiatric Hx Anxiety: Yes Hx Bipolar Disorder: Yes Hx Depression: Yes Hx Substance Use: Yes (quit 25 yrs ago) Other/Comment: quit smoking, drinking, cocaine use 25 yrs ago - Past Surgical History Past Surgical History: Non-Contributing - Surgical History Hx Cardiac Catheterization: Yes Hx Coronary Stent: Yes Hx Gastric Bypass Surgery: Yes Other/Comment: cysto, heart ablation, c cath 2007 and 2014 left leg thrombectomy - Anesthesia Hx Anesthesia: Yes Hx Anesthesia Reactions: No Hx Malignant Hyperthermia: No - Suicidal Assessment Feels Threatened In Home Enviroment: No Family/Social History - Physician Review Nursing Documentation Reviewed: Yes Family/Social History: No Known Family HX Smoking Status: Former Smoker Hx Alcohol Use: Yes (quit 25 yrs ago) Hx Substance Use: Yes (quit 25 yrs ago) Hx Substance Use Treatment: Yes Allergies/Home Meds Allergies/Adverse Reactions: Allergies quetiapine fumarate [From Seroquel] Adverse Reaction (Verified 05/14/17 14:59) ANAPHYLAXIS wild berries Allergy (Intermediate, Uncoded 05/14/17 14:59) RASH Home Medications: Home Meds Medication Instructions Recorded Confirmed diltiaZEM [Cardizem] 30 mg PO BID 02/25/17 05/14/17 Insulin Detemir [Levemir] 40 unit SC ACBD 03/31/17 05/14/17 Acetaminophen/Oxycodone Hydr 1 tab PO PRN PRN 05/14/17 05/14/17 [Percocet 10/325 mg Tab] Furosemide [Lasix] 40 mg PO TID 05/14/17 05/14/17 Warfarin [Coumadin] 7 mg PO HS 05/14/17 05/14/17 Review of Systems - Physician Review All systems were reviewed & negative as marked: Yes - Review of Systems Constitutional: absent: Fevers, Other (Chills) Respiratory: SOB. absent: Cough Cardiovascular: Chest Pain Gastrointestinal: absent: Diarrhea, Nausea, Vomiting Musculoskeletal: absent: Back Pain, Neck Pain Skin: Other (Infected wound on left lower leg) Neurological: Other (neuropathy pain secondary to his diabetes). absent: Headache, Dizziness Physical Exam Vital Signs Reviewed: Yes Vital Signs Temp Pulse Resp BP Pulse Ox 05/29/17 02:01 78 18 131/67 95 05/29/17 02:00 131/67 05/28/17 22:36 98.3 F 74 18 147/70 95 Temperature: Afebrile Blood Pressure: Normal Pulse: Regular Respiratory Rate: Normal Appearance: Positive for: Well-Appearing, Non-Toxic, Comfortable Pain Distress: None Mental Status: Positive for: Alert and Oriented X 3 - Systems Exam Head: Present: Atraumatic, Normocephalic Pupils: Present: PERRL Extroacular Muscles: Present: EOMI Conjunctiva: Present: Normal Mouth: Present: Moist Mucous Membranes Neck: Present: Normal Range of Motion Respiratory/Chest: Present: Rhonchi. No: Respiratory Distress, Accessory Muscle Use Cardiovascular: Present: Regular Rate and Rhythm, Normal S1, S2. No: Murmurs Abdomen: Present: Normal Bowel Sounds. No: Tenderness, Distention, Peritoneal Signs Back: Present: Normal Inspection Upper Extremity: Present: Normal Inspection. No: Cyanosis, Edema Lower Extremity: Present: Edema (Pitting edema to lower legs. Left leg greater than right), Normal ROM, Neurovascularly Intact, Other (Dime sized Eschar wound to the left lower leg ). No: Mildred's Sign Neurological: Present: GCS=15, CN II-XII Intact, Speech Normal, Motor Func Grossly Intact, Normal Sensory Function Skin: Present: Warm, Dry, Normal Color. No: Rashes Psychiatric: Present: Alert, Oriented x 3, Normal Insight, Normal Concentration Medical Decision Making ED Course and Treatment: 05/28/17 22:40 Impression: 56 year old male presents complaining of shortness of breath for the past couple of days with chest discomfort at times. Patient is also complaining of pain to his chronic left leg wound and neuropathy pain secondary to his diabetes. Plan: -- EKG -- Labs -- Chest X-ray -- Reassess and disposition Prior Visits: Notes and results from previous visits were reviewed. Patient was last seen in the emergency department on 05/14/17 presents complaining of difficulty breathing, chest pain, and productive cough. Patient was admitted. Progress Notes: 05/28/17 23:01 EKG shows Atrial Fibrillation at 74 BPM with RBBB, anterior infarct, with no prior for comparison. Interpreted by me. 05/29/17 01:34 CXR Impression: As read by me, cardiomegaly, mild increase of pulmonary vascular markings. 05/29/17 01:[address] Villagomez who is aware and agrees with the plan. Accepts patient into his service. - Lab Interpretations Lab Results: 05/28/17 23:00 05/28/17 23:00 Lab Results 05/28/17 23:00: WBC 15.8 H, RBC 4.70, Hgb 13.2 L, Hct 41.4 L, MCV 88.1, MCH 28.1 , MCHC 31.9, RDW 15.5 H, Plt Count 168, MPV 10.7 05/28/17 23:00: Sodium 143, Potassium 4.5, Chloride 102, Carbon Dioxide 30, Anion Gap 15, BUN 18, Creatinine 1.0, Est GFR ( Amer) > 60, Est GFR (Non- Af Amer) > 60, Random Glucose 153 H, Calcium 9.7, Total Bilirubin 0.6, AST 23, ALT 29, Alkaline Phosphatase 67, Lactate Dehydrogenase 427, Total Creatine Kinase 55, Troponin I 0.06 D, NT-Pro-B Natriuret Pep 1350 H, Total Protein 7.0 , Albumin 4.1, Globulin 2.9, Albumin/Globulin Ratio 1.4 05/28/17 23:00: PT 16.4 H, INR 1.43 H, APTT 28.7 I have reviewed the lab results: Yes - RAD Interpretation Radiology Orders: 05/28/17 22:59 CHEST PORTABLE [RAD] Stat - EKG Interpretation Interpreted by ED Physician: Yes Type: 12 lead EKG - Medication Orders Current Medication Orders: Albuterol/Ipratropium (Duoneb 3 Mg/0.5 Mg (3 Ml) Ud) 3 ml IH Q4H PRN PRN Reason: Shortness of Breath Discontinued Medications Albuterol/Ipratropium (Duoneb 3 Mg/0.5 Mg (3 Ml) Ud) 3 ml IH ONCE STA Stop: 05/28/17 23:01 Last Admin: 05/28/17 23:09 Dose: 3 ml Furosemide (Lasix) 40 mg IVP ONCE ONE Stop: 05/29/17 01:34 Last Admin: 05/29/17 02:00 Dose: 40 mg MAR Blood Pressure Document 05/29/17 02:00 AD (Rec: 05/29/17 02:00 AD [id number]) Blood Pressure Blood Pressure (100/60-150/90 mm Hg) 131/67 IVP Administration Document 05/29/17 02:00 AD (Rec: 05/29/17 02:00 AD [id number]) Charges for Administration # of IVP Administrations 1 Morphine Sulfate (Morphine) 4 mg IVP STAT STA Stop: 05/29/17 00:49 Last Admin: 05/29/17 01:08 Dose: 4 mg MAR Pain Assessment Document 05/29/17 01:08 AD (Rec: 05/29/17 01:09 AD [id number]) Pain Reassessment Is this a pain reassessment? No Presence of Pain Presence of Pain Yes Pain Scale Used Pain Scale Used Numeric Location Left, Right or Bilateral Bilateral Pain Location Body Site Leg Description Description Constant Intensity of Pain at present 8 Pain Behavior Facial Grimacing IVP Administration Document 05/29/17 01:08 AD (Rec: 05/29/17 01:09 AD [id number]) Charges for Administration # of IVP Administrations 1 - Scribe Statement The provider has reviewed the documentation as recorded by the Celeste Perez Provider Scribe Attestation: All medical record entries made by the Charlineibmadina were at my direction and personally dictated by me. I have reviewed the chart and agree that the record accurately reflects my personal performance of the history, physical exam, medical decision making, and the department course for this patient. I have also personally directed, reviewed, and agree with the discharge instructions and disposition. Disposition/Present on Arrival - Present on Arrival Any Indicators Present on Arrival: No History of DVT/PE: No History of Uncontrolled Diabetes: Yes Urinary Catheter: No History of Decub. Ulcer: No History Surgical Site Infection Following: None - Disposition Have Diagnosis and Disposition been Completed?: Yes Diagnosis: Congestive heart failure (CHF), COPD (chronic obstructive pulmonary disease) Disposition: HOSPITALIZED Disposition Time: 01:54 Patient Plan: Observation Patient Problems: Current Active Problems Problem Status Onset COPD (chronic obstructive pulmonary disease) Acute Congestive heart failure (CHF) Acute Condition: STABLE
[2017-05-28] MEDS ORDERED: Albuterol-Ipratrop 3 mg / 0.5 (3 ml) UD IH STA (23:00)
[2017-05-28 23:40] LABS: HEMOGLOBIN 13.2 g/dL (14.0-18.0); MEAN CELL VOLUME 88.1 fl (80.0-105.0); MEAN CORPUSCULAR HEMOGLOBIN 28.1 pg (25.0-35.0); MEAN CORPUSCULAR HGB CONC 31.9 g/dl (31.0-37.0); MEAN PLATELET VOLUME 10.7 fl (7.0-11.0); RBC 4.7 10^6/uL (3.5-6.1); RED CELL DISTRIBUTION WIDTH 15.5 % (11.5-14.5); WHITE BLOOD COUNT 15.8 10^3/ul (4.5-11.0)
[2017-05-28 23:45] LABS: INR 1.43 (0.93-1.08); PARTIAL THROMBOPLASTIN TIME 28.7 Seconds (25.1-36.5); PROTHROMBIN TIME 16.4 SECONDS (9.4-12.5)
[2017-05-29 00:04] LABS: ALB/GLOB RATIO 1.4 (1.1-1.8); ALBUMIN 4.1 g/dL (3.0-4.8); ALT/SGPT 29 U/L (7-56); AST/SGOT 23 U/L (17-59); B-TYPE NATRIURETIC PEPTIDE 1350 pg/mL (0-450); BLOOD UREA NITROGEN 18 mg/dL (7-21); CALCIUM 9.7 mg/dL (8.4-10.5); GFR AFRICAN-AMERICAN > 60; GFR NON-AFRICAN AMERICAN > 60; TROPONIN I 0.06 ng/mL
[2017-05-29] MEDS ORDERED: Morphine 2 mg/ml ISec IVP STA (00:48)
[2017-05-29] MEDS ORDERED: Albuterol-Ipratrop 3 mg / 0.5 (3 ml) UD IH PRN (01:44)
--- NOTE | 2017-05-29 08:05 | RAD ---
HISTORY: sob COMPARISON: 05/15/2017 FINDINGS: LUNGS: No active pulmonary disease. PLEURA: No significant pleural effusion identified, no pneumothorax apparent. CARDIOVASCULAR: Severe cardiomegaly OSSEOUS STRUCTURES: No significant abnormalities. VISUALIZED UPPER ABDOMEN: Normal. OTHER FINDINGS: Pacemaker IMPRESSION: No active disease.
[2017-05-29] MEDS: Insulin Reg-MEDIUM-Coverage SC SCH ×4 (08:18→22:02)
[2017-05-29] MEDS: Insulin Detemir 100 units/ml Vial (Levemir) SC SCH ×2 (08:19→17:33)
--- NOTE | 2017-05-29 10:29 | CARD ---
APPROVED REPORT EKG Measurement Heart [id number] <Conclusion> Ventricular paced rhythm Abnormal ECG
[2017-05-29] MEDS ORDERED: Influenza Vaccine 60 mcg/0.5 mL SYR (4YR UP) IM ONE (12:10)
[2017-05-29] MEDS ORDERED: Pneumococcal 23-Valent Vaccine IM ONE (12:10)
[2017-05-29] MEDS: Oxycodone/Acetaminophen 10/325 mg Tab PO PRN (17:37)
--- NOTE | 2017-05-29 20:21 | CON ---
DATE: 05/29/2017 CHIEF COMPLAINT AND HISTORY OF PRESENT ILLNESS: I know from two admissions in 2017 with left popliteal artery embolism/thrombosis. He has ischemic cardiomyopathy with atrial fibrillation. Compliance has been a problem in the past. In 2017, he had two somewhat complicated thrombolysis admissions for popliteal artery embolus/thrombosis with left foot ischemia. He is on Coumadin and states that he is compliant. He has had pain in the left leg since the previous procedure in November. The pain has progressed. PHYSICAL EXAMINATION: EXTREMITIES: He has a palpable left popliteal pulse and no pedal pulses. His feet are cool bilaterally. LABORATORY DATA: His INR on admission was 1.4. His left tibioperoneal trunk stent may be occluded. I will order TREVON/PVR exam and duplex of the left popliteal artery to evaluate this. PLAN: Ideally, Mr. Johnson would receive a saphenous vein graft bypass; however, his medical comorbidities prohibit this. John Paul Cannon MD MTDD
--- NOTE | 2017-05-29 21:26 | PN ---
DATE: 05/29/2017 REASON FOR CONSULTATION AND FOLLOWUP: Lower extremity edema and pain, history of nonischemic cardiomyopathy, history of paroxysmal atrial fibrillation, status post ablation. BRIEF CLINICAL HISTORY: A 56-year-old male with past medical history significant for nonischemic cardiomyopathy secondary to systolic dysfunction, paroxysmal atrial fibrillation, history of radiofrequency ablation, history of AICD placement, complaint of leg pain, who came to the emergency room. PAST MEDICAL HISTORY: Significant for cardiac catheterization 2 to 3 years ago that showed nonobstructive coronary artery disease, history of cardiomyopathy, history of multiple admissions with decompensated congestive heart failure, noncompliance with the medications, history of radiofrequency ablation at [facility], status post AICD. . PAST SURGICAL HISTORY: Significant for gastric bypass, thrombectomy due to acute occlusion of left extremity artery, history of AICD placement, history of cardiac catheterization 2 to 3 times, nonobstructive coronary artery disease, history of radiofrequency ablation and AICD placement at [facility]. Previous cardiac workup as follows: The patient had recently a MUGA scan done, ejection fraction 43%, improvement from before. Cardiac catheterization 2 to 3 times at [facility], last catheterization in 2014, nonobstructive coronary artery disease, EDP in the range of 30. History of AICD placement. Last echo on 08/15/2016, shows mildly decreased LV function, decreased LV ejection fraction of 25%, moderately dilated RV, decreased RV function. SOCIAL HISTORY: Denies smoking. Denies any history of alcohol abuse. Used to be a smoker and alcohol, claims that he quit. CURRENT MEDICATIONS: The patient is taking at home trazodone, Cardizem 30 mg, Coumadin 7 mg, prednisone, Singulair, lisinopril, lorazepam, insulin, gabapentin, glimepiride, Lasix, and cilostazol. REVIEW OF SYSTEMS: As per HPI. PHYSICAL EXAMINATION: VITAL SIGNS: Temperature afebrile, heart rate 70, blood pressure 114/48. HEENT: PERRLA. Extraocular muscles intact. NECK: Supple. No carotid bruit or thyromegaly. CHEST: Clear to auscultation. HEART: S1 and S2, regular. ABDOMEN: Soft. EXTREMITIES: Clubbing and cyanosis negative. LABORATORY DATA: Blood workup as follows: WBC 15.8, hemoglobin 13.2, hematocrit 41.4, platelet count 168. Chemistry shows sodium 140, potassium 4.5, chloride 102, carbon dioxide 30, anion gap of 15. BUN 18, creatinine 1. BNP 1350. Troponin 0.06. IMPRESSION: Decompensated congestive heart failure, acute on chronic systolic dysfunction, ejection fraction 45%, nonischemic cardiomyopathy, history of morbid obesity, history of radiofrequency ablation, history of paroxysmal atrial fibrillation status post radiofrequency ablation, history of AICD placement, history of nonobstructive coronary artery disease status post cardiac catheterization 3 times, diabetes, hypertension, hyperlipidemia, ex-tobacco abuse, ex-alcohol abuse, rule out sepsis. The patient had elevated WBC of 15.8, hemoglobin 13.2, hematocrit of 41.4, and platelet count 168. Chemistry shows sodium 140, potassium 4.5, chloride 102, carbon dioxide 30, BNP 1350. RECOMMENDATIONS: INR is subtherapeutic at 1.4, so we will give 2 doses of Lovenox, resume back Coumadin. We will discuss with Dr. Villagomez. The patient is not on Coumadin. Continue Lasix. Fu culture. We will follow with you. Tia Rajan MD
--- NOTE | 2017-05-29 23:41 | HP ---
CHIEF COMPLAINT AND HISTORY OF PRESENT ILLNESS: This is a 56-year-old male who is coming in to the hospital complaining of left leg pain. He says the pain is 10/10. He says he is having difficulty in walking. He was having pain previously, but he says it is much worse. The patient has no complaints of any nausea. No vomiting. He has a past medical history of COPD, CHF, diabetes, hypertension, peripheral arterial disease. The patient says that he has his ulcer that is in the middle part of his left leg that is not healed. He has no dysuria, frequency. He has no drainage. REVIEW OF SYMPTOMS: All other review of symptoms are within normal limits except what is mentioned. ALLERGIES: HE HAS ALLERGIES TO QUETIAPINE AND WILD BERRIES. HOME MEDICATIONS: He is on Cardizem, Levemir, Percocet, Lasix, Coumadin. PAST MEDICAL HISTORY: 1. Gastric bypass. 2. COPD. 3. CHF. 4. Secondary systolic dysfunction. 5. Diabetes type 2. 6. Hypertension. 7. Peripheral arterial disease. 8. Atrial fibrillation, on Coumadin. 9. Defibrillator. 10. Gastric bypass. PAST SURGICAL HISTORY: 1. Left leg thrombosis with thrombectomy. 2. Gastric bypass. SOCIAL HISTORY: He is a former. He quit smoking about 25 years ago. He did use cocaine and alcohol in the past, but he says he stopped using for many years. FAMILY HISTORY: Noncontributory. PHYSICAL EXAMINATION: VITAL SIGNS: The patient has a temperature of 98, pulse of 67, blood pressure is 102/62, respirations 20, O2 saturation 94%. Height is 5 feet 8, weight is 278 pounds. BMI is 42. GENERAL: The patient lying in bed, uncomfortable, and in no acute distress. HEENT: Atraumatic and normocephalic. Anicteric sclerae. Moist mucosa. [place] conjunctivae. No oral lesions. NECK: No JVD, anterior and posterior adenopathy, thyromegaly, or bruits. CARDIOVASCULAR: S1 and S2 regular. No murmur, rubs, or gallop. LUNGS: Clear to auscultation bilaterally. No wheezes, rales, or rhonchi. ABDOMEN: Bowel sounds are positive. Soft, nontender and nondistended. No hepatosplenomegaly. No rebound and no guarding EXTREMITIES: No cyanosis, clubbing, or edema. The left leg, there is a 1.5 cm ulcer, nonhealing with no drainage, no erythema on the lateral part of the left leg in the midcalf area. NEUROLOGIC: No facial asymmetry. Tongue is midline. No uvula deviation. Power is 5/5 upper extremity and lower extremity. Sensation intact in upper extremity and lower extremity. PSYCHIATRIC: He is awake, alert and oriented x3. No anxiety or depression. He has normal affect. GENITOURINARY: No CVA tenderness. VASCULAR: 2+ pulses in the carotid pulses and pedal pulses. SKIN: No erythema or nodules SPINE: Shows normal curvature. LABORATORY DATA: Labs have been reviewed. White count of 15.8. He has an INR that is 1.4. He has a chemistry that shows a creatinine of 1.0. His proBNP is 1350. Troponin is 0.06. His procalcitonin is less than 0.05. His chest x-ray done shows no active disease. EKG shows a paced rhythm at 74. QTc is 490. ASSESSMENT: 1. Left 1.5 cm leg ulcer. 2. Congestive heart failure secondary to systolic dysfunction, chronic, stable. 3. Chronic obstructive pulmonary disease, stable. 4. Diabetes type 2. 5. Hypertension. 6. Peripheral arterial disease. 7. Restless legs syndrome. 8. Atrial fibrillation, on Coumadin. 9. Pacemaker/automatic implantable cardioverter-defibrillator. 10. Gastric bypass. 11. Morbid obesity with a body mass index of 42. 12. Congestive heart disease. PLAN: The patient is going to be admitted to the hospital. He has pain in the left leg. He has an elevated white count. He has an ulcer that is seen. He also has a history of peripheral arterial disease. At this point, I will get further evaluation to be done by Dr. John Paul Cannon from Interventional Radiology. Dr. Valentin from Infectious Disease will also see the patient. The patient will probably need arterial Dopplers to evaluate for his peripheral arterial disease. The patient is going to continue his diabetic medications. He is on Amaryl for his diabetes. He is on Ativan for his anxiety. He is going to continue with Cardizem. He is on Coumadin for his anticoagulation. I have asked Dr. Rajan and Dr. Godinez to follow along as well. The patient has multiple comorbidities and has been having frequent readmissions to the hospital. He does have a history of compliance. His Coumadin is subtherapeutic. He does not avoid followup with his specialists. The patient is on Lasix 3 times a day. This will be continued. He has no edema in the legs. He is on Neurontin for neuropathy. He is going to continue with ropinirole for his restless legs. He is on Zestril for his CHF. He is going to have a repeat PT/INR done tomorrow. We will continue to follow closely. Axel Villagomez MD
[2017-05-30] MEDS ORDERED: Vancomycin 1gm in NS 250ml 1 GM/250 ML BAG IVPB SCH (07:15)
[2017-05-30 07:46] LABS: INR 1.61 (0.93-1.08); PROTHROMBIN TIME 18.7 SECONDS (9.4-12.5)
[2017-05-30] MEDS: Insulin Reg-MEDIUM-Coverage SC SCH ×3 (08:27→18:43)
[2017-05-30] MEDS: Oxycodone/Acetaminophen 10/325 mg Tab PO PRN ×2 (08:31→18:27)
[2017-05-30] MEDS: Insulin Detemir 100 units/ml Vial (Levemir) SC SCH ×2 (08:32→18:28)
--- NOTE | 2017-05-30 08:47 | CON ---
DATE: 05/29/2017 PULMONARY CONSULTATION REFERRING PHYSICIAN: Axel Villagomez MD. REASON FOR CONSULTATION: Chronic obstructive lung disease, obstructive sleep apnea syndrome, pulmonary hypertension, cardiomyopathy. HISTORY OF PRESENT ILLNESS: This is a 56-year-old gentleman well known to me from previous admission, has a past medical history significant for morbid obesity; cardiomyopathy; recurrent atrial fibrillation, requiring ablation therapy, also has AICD; pulmonary hypertension; decreased LV function, on anticoagulation, lately been compliant; also have sleep apnea syndrome; nonhealing left leg ulcer; history of thromboembolic disease, secondary to noncompliant, requiring thrombectomy in the past; lately having nonhealing ulcer on the left leg, comes in with shortness of breath, bilateral leg swelling, left leg nonhealing ulcer. PAST MEDICAL HISTORY: As per history of present illness. Also has a history of bipolar disorder and depression, history of substance abuse in the remote past, arthritis, diabetes. FAMILY HISTORY: No significant cardiopulmonary disease reported. SOCIAL HISTORY: Stopped smoking many years ago. Also stopped excessive alcohol use in the remote past. ALLERGIES: HE HAS ALLERGIES TO QUETIAPINE, DEVELOPED ANAPHYLAXIS. ALSO CLAIMS ALLERGIES TO BERRIES. MEDICATIONS: He is on Amaryl 4 mg daily, Ativan 1 mg twice a day p.r.n., Cardizem 30 mg twice a day, Coumadin 10 mg given today, trazodone 150 mg at bedtime, DuoNeb q. 4 hours p.r.n., Lasix 40 mg three times a day, Levemir 40 units subcu a.c. , Neurontin 300 mg twice a day, Percocet 10/325 one tablet q. 4 hours p.r.n., Requip 0.5 mg at bedtime, Singulair 10 mg daily, Zestril 2.5 mg daily. REVIEW OF SYSTEMS: No headache, no rhinitis, not much cough, short of breath with exertion. No chest pain. No nausea, no vomiting. No diarrhea or abdominal pain. Has leg swelling. Left leg nonhealing ulcer. PHYSICAL EXAMINATION: GENERAL: Lying in the bed, in no acute distress. VITAL SIGNS: Temperature is 98, heart rate 67, respiratory rate is 20, blood pressure 102/62, pulse of 94% on 2 liters nasal cannula. HEENT: Moist mucous membranes. Crowded airway. Mallampati score is IV. NECK: Short thick neck. LUNGS: Have a few scattered rhonchi. HEART: S1 and S2, . ABDOMEN: Soft, nontender. No organomegaly. EXTREMITIES: Bilateral edema. Left leg has nonhealing ulcer. NEUROLOGIC: Awake and alert. Follows simple commands. LABORATORY DATA: Shows hemoglobin 13.2, hematocrit 41.4, WBC 15.8, platelet is 168. INR 1.43. PTT 29. Sodium 142, potassium 4.5, chloride 102, bicarbonate 30, BUN 18, creatinine 1.0, glucose 137, calcium 9.7. Total bili 0.6, AST 23, ALT 29, alk phos is 67. LDH 427. Troponin 0.06. ProBNP 1350. Albumin is 4.1, procalcitonin 0.05. Chest x-ray done today in the ER shows no active pulmonary infiltrate. IMPRESSION AND PLAN: Cardiomyopathy; atrial fibrillation; history of cardioversion and automatic implantable cardioverter defibrillator; pulmonary hypertension; congestive heart failure; chronic obstructive lung disease, sleep apnea syndrome; diabetes; hypertension; obesity; history of recurrent thromboembolic disease, requiring thrombectomy; has a left lower ischemia with nonhealing ulcer. Pulmonary point of view, continue inhaled bronchodilator. Continue Singulair. Keep head at 45 degrees. Patient refused to try continuous positive airway pressure/bilevel positive airway pressure, understanding risk benefit ratio. 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 Continue diuretics. Infectious Disease is consulted, also Interventional Radiology consult, may have to repeat lower extremity vascular study. Follow up labs the morning. Fall precaution, avoid sedation. Thank you and we will follow with you. Tia Godinez MD
--- NOTE | 2017-05-30 14:02 | PN ---
DATE: SUBJECTIVE: The patient has no complaints of any chest pain, no shortness of breath. He continues to complaint of left leg pain. He states it is 8-9/10. The pain medication does help him. PHYSICAL EXAMINATION: VITAL SIGNS: Temperature is 98.7, pulse of 96, blood pressure 134/79, respirations 20. GENERAL: The patient is lying in bed, flat, comfortable. HEENT: No oral lesion. Anicteric sclerae. Moist mucosa. NECK: No JVD, adenopathy, or thyromegaly. CARDIOVASCULAR: S1 and S2, regular. No murmurs, rubs, or gallops. LUNGS: Clear to auscultation bilaterally. No wheeze, rales, or rhonchi. ABDOMEN: Bowel sounds are positive, soft, nontender and nondistended. EXTREMITIES: no cyanosis, clubbing or edema. LABS: White count of 15.8, hemoglobin is 13.2. ASSESSMENT: 1. Left leg ulcer, 1.5 cm. 2. Congestive heart failure secondary to systolic dysfunction, chronic, stable. 3. Chronic obstructive pulmonary disease. 4. Diabetes type 2. 5. Hypertension. 6. Peripheral arterial disease. 7. Restless legs syndrome. 8. Atrial fibrillation, on Coumadin. 9. Pacemaker/automatic implantable cardioverter-defibrillator. 10. Gastric bypass. 11. Morbid obesity with a body mass index of 42. PLAN: The patient is currently unaware of his diabetes. He is going to continue with Cardizem. The patient is on Coumadin for his anticoagulation. He is going to continue with Lasix three times a day for his edema. He is receiving Singulair. The patent is on lisinopril for hypertension. He has lower extremity Doppler has been ordered. He is on heart-healthy diet. He will be coming for admission because he will need further management regarding his left leg, if he has peripheral arterial disease is worsening his pain. Axel Villagomez MD
[2017-05-30 15:28] LABS: ARTERIAL BLOOD GAS HCO3 20.8 mmol/L (21-28); ARTERIAL BLOOD GAS O2 SAT 98.6 % (95-98); ARTERIAL BLOOD GAS PCO2 32 mm/Hg (35-45); ARTERIAL BLOOD GAS PH 7.42 (7.35-7.45); ARTERIAL BLOOD GAS TCO2 21.8 mmol.L (22-28)
--- NOTE | 2017-05-30 15:28 | US ---
PROCEDURE: Lower extremity TREVON exam HISTORY: Peripheral vascular disease. Rest pain. Previous left popliteal artery thrombolysis and stent placement. Evaluate for reocclusion PHYSICIAN(S): John Paul Cannon MD. FINDINGS: The resting TREVON's are normal: right, 1.22and left, 0.98. The brachial systolic pressures are symmetric. The high thigh pressures are noncompressible. The high thigh PVR waveforms are normal and symmetric. The calf PVR waveforms augment normally. No significant gradients are noted across the thighs. The ankle and metatarsal waveforms are pulsatile and relatively normal. There may be mild tibial disease. IMPRESSION: 1. Relatively normal TREVON and PVR examination at rest. 2. No evidence of left popliteal artery occlusion
--- NOTE | 2017-05-30 15:30 | US ---
PROCEDURE: Duplex arterial ultrasound of the left popliteal artery and tibioperoneal artery stent HISTORY: Previous left popliteal artery occlusion/embolus post thrombolysis. Evaluate left popliteal artery patency PHYSICIAN(S): John Paul Cannon MD. FINDINGS: The exam is limited by body habitus. The distal left femoral artery and left popliteal artery are patent with relatively normal triphasic waveforms. The left tibioperoneal trunk stent is visualized and appears patent. IMPRESSION: 1. No sonographic evidence of thrombosis or significant stenosis in the left popliteal artery and left tibioperoneal artery stent
--- NOTE | 2017-05-30 15:38 | PCM.RRT ---
<Rhonda Bravo - Last Filed: 05/30/17 16:03> STAND UP FORKLIFT OPERATOR Nurse Assessment - Situation Date: 05/30/17 Time STAND UP FORKLIFT OPERATOR was called: 15:01 STAND UP FORKLIFT OPERATOR Responder Arrival Time: 15:04 STAND UP FORKLIFT OPERATOR Location:: [address] [place] [address] Room Number: 570 bed 1 STAND UP FORKLIFT OPERATOR Reason for Call: Hypertension, Looks Sicker STAND UP FORKLIFT OPERATOR Called By: RN - IV IV Inserted during STAND UP FORKLIFT OPERATOR?: No - Respiratory Oxygen Delivery Method: Non Rebreather @% Received Nebulizer Treatments:: Yes (duoneb) Secretions Suctioned?: No Was the Patient Intubated?: No Was the Patient Placed on a Ventilator?: No - Medication Medications Administered During STAND UP FORKLIFT OPERATOR: tylenol 650 po for rectal temp 102.7 - Diagnostic Test Ordered EKG: Yes Chest X-Ray: Yes - Stat Labs Ordered STAND UP FORKLIFT OPERATOR Stat Labs Ordered: CBC, BMP, ABG CPR started during STAND UP FORKLIFT OPERATOR?: No - Vital Signs Vital Sign: Rapid Response Vital Sign Blood Pressure 139/113 Pulse Rate 75 Temperature 102.7 F Oxygen Saturation 89 - Finger Stick Blood Glucose Finger Stick Blood Glucose: 109 - Mcguffey Coma Scale Coma Scale Eye Opening: Spontaneous Coma Scale Motor: Obeys Commands Movement Coma Scale Verbal: Oriented - Sepsis Screen Part 1 Sepsis Screen Part 1: Temperature over 100.6F - Sepsis Screen Part 2 Sepsis Screen Part 2: WBC over 12,000 - Time STAND UP FORKLIFT OPERATOR Ended Time STAND UP FORKLIFT OPERATOR Ended: 15:22 - Vital Signs at end of STAND UP FORKLIFT OPERATOR Vital Signs at end of STAND UP FORKLIFT OPERATOR: Rapid Response End Vital Sign Blood Pressure 147/60 Pulse Rate 80 Respiratory Rate 24 O2 Sat by Pulse Oximetry 99 - Recommendations Notifications: Attending Physician I.Reason for STAND UP FORKLIFT OPERATOR - A) Acute Change in Patient: (Select all that apply): Staff member or family is worried about patient - Neurological Status (Select all that apply): Alert, Responsive, Oriented, Verbal, Follows Commands Other (Please specify): Patient is shaking - Respiratory Oxygen Delivery Method: Non Rebreather @% - Head Head Exam: ATRAUMATIC, NORMAL INSPECTION, NORMOCEPHALIC - Eyes Eye Exam: Normal appearance, PERRL - Respiratory Exam Respiratory Exam: Clear to Ausculation Bilateral, NORMAL BREATHING PATTERN. absent: Rales, Rhonchi, Wheezes - Cardiovascular Exam Cardiovascular Exam: REGULAR RHYTHM, +S1, +S2. absent: Gallop, Rubs, Murmur - GI/Abdominal Exam GI & Abdominal Exam: Soft, Normal Bowel Sounds. absent: Rigid, Tenderness, Mass , Rebound - Neurological Exam Neurological Exam: Alert, Awake, CN II-XII Intact, Oriented x3 - Extremities Exam Extremities Exam: absent: Pedal Edema Plan - Assessment of Findings&Treatment Plan This is a 56yo M with PMH of jeff (on Coumadin), HTN, DM, CHF (EF~35%), AICD placement, restless legs, COPD, WESLY who had a rapid response called for shaking. Rapid response team responded immediately. Patient was found to be shaking, but A&O x 3. Upon chart review, patient was admitted for leg wound and was found to have positive blood cultures. Rectal temp was 102. Other vitals and blood sugar were stable. ABG shock panel done and reviewed. Lactate found to be 3.3. Code sepsis was called. Plan: Tylenol ordered and given Repeat lactate in 3hrs Ordered CBC, CMP, Mag, Phos- will follow up Urinalysis, Urine culture pending EKG ordered - will review CXR showed some vascular congestion, but no overt fluid in the lungs Will need gentle hydration- NS@50 ID is on consult Patient already on Vancomycin and recently placed on Daptomycin and Zosyn by ID Spoke with PMD, Dr. Villagomez who reports patient can remain on Med/Surg floor and will continue to monitor Case seen, discussed and reviewed with attending. Dilan Bravo PGY2 <Elo Norris A - Last Filed: 05/30/17 21:07> STAND UP FORKLIFT OPERATOR Nurse Assessment - Vital Signs Vital Sign: Rapid Response Vital Sign Blood Pressure 139/113 Pulse Rate 75 Temperature 102.7 F Oxygen Saturation 89 - Vital Signs at end of STAND UP FORKLIFT OPERATOR Vital Signs at end of STAND UP FORKLIFT OPERATOR: Rapid Response End Vital Sign Blood Pressure 147/60 Pulse Rate 80 Respiratory Rate 24 O2 Sat by Pulse Oximetry 99 Attending/Attestation - Attestation I have personally seen and examined this patient.: Yes I have fully participated in the care of the patient.: Yes I have reviewed all pertinent clinical information, including history, physical exam and plan: Yes
[2017-05-30] MEDS ORDERED: Piperacillin/Tazobact 3.375 gm 100 ML IVPB STA (15:43)
[2017-05-30] MEDS ORDERED: DAPTOmycin 500 mg Inj (Cubicin) IV SCH (16:00)
--- NOTE | 2017-05-30 16:07 | RAD ---
HISTORY: Fever. COMPARISON: 05/28/2017 FINDINGS: LUNGS: No active pulmonary disease. PLEURA: No significant pleural effusion identified, no pneumothorax apparent. CARDIOVASCULAR: Cardiomegaly. No evidence of acute, significant cardiovascular disease. OSSEOUS STRUCTURES: No significant abnormalities. VISUALIZED UPPER ABDOMEN: Normal. OTHER FINDINGS: None. IMPRESSION: No active disease. No significant interval change compared to the prior examination(s).
--- NOTE | 2017-05-30 16:10 | CP.PCM.CON ---
History of Present Illness - History of Present Illness History of Present Illness: 56 year old male with PMH of HTN, DM, COPD, atrial fibrillation on anticoagulation, chronic CHF, chronic leg wound, S/P gastric bypass surgery, S/ P left leg thrombectomy came in to [facility] complaining of shortness of breath as well as as left leg pain. When I saw the patient earlier while he already was on IV Vancomycin, he was not complaining of fever and chills, no nausea or vomiting, breathing better, no abdominal pain, no headache or dizziness, no diarrhea, no dysuria. Now this afternoon, I have alerted about the patient's fever and chills and his blood cx are now showing E. faecalis. Infectious Diseases consult is requested to further evaluate and manage. Review of Systems - Review of Systems All systems: reviewed and no additional remarkable complaints except (as per HPI ) Past Patient History - Infectious Disease Hx of Infectious Diseases: None - Tetanus Immunizations Tetanus Immunization: Unknown - Past Medical History & Family History Past Medical History?: Yes - Past Social History Smoking Status: Former Smoker - CARDIAC Hx Congestive Heart Failure: Yes Hx Hypertension: Yes - PULMONARY Hx Chronic Obstructive Pulmonary Disease (COPD): Yes - NEUROLOGICAL Hx Dizziness: Yes Other/Comment: numbness both thighs, pt stated "I was in a coma for 2 weeks from seroquel - HEENT Hx HEENT Problems: Yes (eyeglasses, alutiiq) Other/Comment: eye sx for strabismus - RENAL Hx Chronic Kidney Disease: No - ENDOCRINE/METABOLIC Hx Diabetes Mellitus Type 2: Yes - HEMATOLOGICAL/ONCOLOGICAL Hx Blood Disorders: No - INTEGUMENTARY Hx Dermatological Problems: Yes Other/Comment: ble slight redness discolorations dry skin 1.5cm x 1cm dry deep red scabb to outer lower left leg surrounded by red,dry skin, c/o severe pain - MUSCULOSKELETAL/RHEUMATOLOGICAL Hx Falls: No - GASTROINTESTINAL Hx Gastrointestinal Disorders: Yes (obese) Hx Gastroesophageal Reflux: Yes - GENITOURINARY/GYNECOLOGICAL Hx Genitourinary Disorders: No - PSYCHIATRIC Hx Substance Use: Yes - SURGICAL HISTORY Hx Cardiac Catheterization: Yes Hx Coronary Stent: Yes Hx Gastric Bypass Surgery: Yes Other/Comment: cysto, heart ablation, c cath 2007 and 2014 left leg thrombectomy - ANESTHESIA Hx Anesthesia: Yes Hx Anesthesia Reactions: No Hx Malignant Hyperthermia: No Meds Allergies/Adverse Reactions: Allergies Allergy/AdvReac Type Severity Reaction Status Date / Time quetiapine fumarate AdvReac ANAPHYLAXIS Verified 05/14/17 14:59 [From Seroquel] wild berries Allergy Intermediate RASH Uncoded 05/14/17 14:59 - Medications Medications: Current Medications Albuterol/Ipratropium (Duoneb 3 Mg/0.5 Mg (3 Ml) Ud) 3 ml IH Q4H PRN PRN Reason: Shortness of Breath Diltiazem HCl (Cardizem) 30 mg PO BID WILTON Furosemide (Lasix) 40 mg PO TID [facility]IL[place] Gabapentin (Neurontin) 300 mg PO BID WILTON PRN Reason: Protocol Glimepiride (Amaryl) 4 mg PO DAILY WILTON Insulin Detemir (Levemir) 40 unit SC ACBD WIL[place] Insulin Human Regular (Humulin R Med) 0 units SC ACHS WILTON PRN Reason: Protocol Lisinopril (Zestril) 2.5 mg PO DAILY WILTON Lorazepam (Ativan) 1 mg PO BID PRN; Protocol PRN Reason: Anxiety Montelukast Sodium (Singulair) 10 mg PO HS WILTON Ropinirole HCl (Requip) 0.5 mg PO HS WILTON Trazodone HCl (Desyrel) 150 mg PO HS WILTON Physical Exam - Constitutional Appears: Non-toxic - Head Exam Head Exam: NORMAL INSPECTION - Neck Exam Neck exam: Negative for: Meningismus - Respiratory Exam Respiratory Exam: Decreased Breath Sounds - Cardiovascular Exam Cardiovascular Exam: +S1, +S2 - GI/Abdominal Exam GI & Abdominal Exam: Soft. absent: Tenderness Results - Vital Signs Recent Vital Signs: Last Vital Signs Temp 99.2 F 05/29/17 06:00 Pulse 74 05/29/17 06:00 Resp 20 05/29/17 06:00 BP 108/56 L 05/29/17 06:00 Pulse Ox 95 05/29/17 06:00 - Labs Result Diagrams: 05/28/17 23:00 05/28/17 23:00 Assessment & Plan - Assessment and Plan (Free Text) Plan: Assessment Sepsis due to E. faecalis bacteremia, source to be determined, R/O endocarditis , R/O left leg infection, R/O intra-abdominal infection HTN DM COPD atrial fibrillation on anticoagulation chronic CHF chronic leg wound S/P gastric bypass surgery S/P left leg thrombectomy Plan we started IV Vancomycin earlier but since the patient still developed fever while on it, we have changed to IV Daptomycin and added Zosyn pending final sensitivities of the E. faecalis in the blood will order 2D echo will repeat blood cx today; if 2D echo is negative, should get CT A/P will monitor clinically
[2017-05-30 16:13] LABS: HEMOGLOBIN 12.5 g/dL (14.0-18.0); MEAN CELL VOLUME 86.4 fl (80.0-105.0); MEAN CORPUSCULAR HGB CONC 32.4 g/dl (31.0-37.0); MEAN PLATELET VOLUME 10.9 fl (7.0-11.0); RBC 4.47 10^6/uL (3.5-6.1); RED CELL DISTRIBUTION WIDTH 15.8 % (11.5-14.5); WHITE BLOOD COUNT 16.4 10^3/ul (4.5-11.0)
[2017-05-30 16:33] LABS: ALB/GLOB RATIO 1.3 (1.1-1.8); ALBUMIN 3.9 g/dL (3.0-4.8); ALT/SGPT 31 U/L (7-56); AST/SGOT 26 U/L (17-59); BLOOD UREA NITROGEN 25 mg/dL (7-21); CALCIUM 9.3 mg/dL (8.4-10.5); GFR AFRICAN-AMERICAN > 60; GFR NON-AFRICAN AMERICAN > 60
--- NOTE | 2017-05-30 17:02 | PN ---
DATE: 05/30/2017 LOCATION: The patient is in room 570, bed 1. REASON FOR CONSULTATION AND FOLLOWUP: Lower extremity edema and pain, history of nonischemic cardiomyopathy, and paroxysmal atrial fibrillation status post ablation. SUBJECTIVE: The patient denies any chest pain. His breathing is better. He still complains pain in the legs. Denies any palpitation. PHYSICAL EXAMINATION: VITAL SIGNS: Blood pressure 134/79, respirations 20, pulse 96, temperature 98.7. HEENT: Head is normocephalic. Eyes: Pupils normal. Conjunctivae normal. NECK: JVP low. Carotids equal. THORAX: AP diameter normal. LUNGS: No significant rales. CARDIOVASCULAR: S1 and S2. ABDOMEN: Protuberant. EXTREMITIES: Edema on the legs. LABORATORY DATA: WBC 15.8, hemoglobin 13.2, hematocrit 41.4, and platelet 168. Random sugar 127. Sodium 143, potassium 4.5, BUN 18, creatinine 1. Random sugar 135. AST and ALT normal. NT-proB natriuretic peptide 1350. Total protein and albumin normal. Prothrombin time 18.7, INR 1.61. Previous cardiac workup has been mentioned in our consult dated 05/29/2017. DIAGNOSES: Decompensated congestive heart failure acute on chronic, left ventricular systolic dysfunction, ejection fraction 45%, nonischemic cardiomyopathy, history of morbid obesity, history of radiofrequency ablation for atrial fibrillation, history of paroxysmal atrial fibrillation status post ablation, history of automatic implantable cardioverter-defibrillator placement, nonobstructive coronary artery disease status post cardiac catheterization three times, diabetes, hypertension, hyperlipidemia, ex-tobacco abuse, ex-alcohol abuse. PLAN: The patient is getting glimepiride 4 mg daily, Cardizem 30 mg b.i.d., warfarin 10 mg was given yesterday and today also the patient will get warfarin 10 mg and then from tomorrow warfarin 7.5 mg daily, furosemide 40 mg p.o. t.i.d. Insulin as ordered. We will continue present therapy and we will follow. Tia Cabello MD
[2017-05-30] MEDS: Bacitracin Ointment 30 GM TUBE TOP SCH (18:13)
[2017-05-30] MEDS: Sodium Chloride 0.9% 1,000 ML IV SCH (18:19)
[2017-05-30 20:43] LABS: VENOUS BLOOD GAS BASE EXCESS -0.2 mmol/L (0.0-2.0); VENOUS BLOOD GAS PO2 108 mm/Hg (30-55); VENOUS BLOOD PH 7.35 (7.32-7.43)
--- NOTE | 2017-05-30 21:16 | PCM.SEPTIC ---
Sepsis Progress Note - Reassessment Type Date of Evaluation: 05/30/17 Time of Evaluation: 21:14 Reassessment Type: Non-invasive reassessment - Non Invasive Reassessment Were the most recent vital sign reviewed: Yes Vital Sign (Latest): Temp Pulse Resp BP Pulse Ox 101.4 F H 76 20 92/57 L 98 05/30/17 20:19 05/30/17 18:16 05/30/17 07:38 05/30/17 18:17 05/30/17 07:38 Cardiovascular: Yes: Regular Rate, Rhythm. No: Chest Non Tender, Edema, JVD, Murmur Respiratory: Yes: Normal Breath Sounds. No: Accessory Muscle Use, Rales, Rhonchi, Wheezing, Respiratory Distress Capillary Refill: Normal (Less than 2 sec) Skin: Normal Color, Warm
[2017-05-30] MEDS: Piperacillin/Tazobact 3.375 gm 100 ML IVPB SCH (23:00)
[2017-05-31] MEDS: Insulin Reg-MEDIUM-Coverage SC SCH ×5 (02:23→21:59)
[2017-05-31 04:43] LABS: URINE BILIRUBIN NEGATIVE (NEGATIVE); URINE BLOOD SMALL (NEGATIVE); URINE GLUCOSE (UA) NEGATIVE (NEGATIVE); URINE LEUKOCYTE ESTERASE NEGATIVE Leu/uL (NEGATIVE); URINE PROTEIN TRACE mg/dL (<30 mg/dL); URINE UROBILINOGEN 0.2 E.U./dL (<1 E.U./dL)
[2017-05-31 04:45] LABS: URINE APPEARANCE CLEAR (CLEAR); URINE COLOR YELLOW (YELLOW)
[2017-05-31 04:56] LABS: URINE EPITHELIAL CELLS 0 - 2 /hpf (0-5); URINE WBC 0 - 2 /hpf (0-6)
[2017-05-31 04:57] LABS: URINE BACTERIA OCC (NEG)
[2017-05-31] MEDS: Piperacillin/Tazobact 3.375 gm 100 ML IVPB SCH ×3 (05:19→17:27)
[2017-05-31 07:21] LABS: HEMOGLOBIN 11.1 g/dL (14.0-18.0); MEAN CELL VOLUME 86.2 fl (80.0-105.0); MEAN CORPUSCULAR HEMOGLOBIN 27.3 pg (25.0-35.0); MEAN CORPUSCULAR HGB CONC 31.7 g/dl (31.0-37.0); RBC 4.06 10^6/uL (3.5-6.1); RED CELL DISTRIBUTION WIDTH 15.7 % (11.5-14.5); WHITE BLOOD COUNT 10.8 10^3/ul (4.5-11.0)
[2017-05-31 07:27] LABS: INR 1.91 (0.93-1.08); PROTHROMBIN TIME 22.3 SECONDS (9.4-12.5)
[2017-05-31 07:29] LABS: ALB/GLOB RATIO 1.2 (1.1-1.8); ALBUMIN 3.4 g/dL (3.0-4.8); ALT/SGPT 28 U/L (7-56); AST/SGOT 32 U/L (17-59); BLOOD UREA NITROGEN 30 mg/dL (7-21); CALCIUM 8.6 mg/dL (8.4-10.5); GFR AFRICAN-AMERICAN > 60; GFR NON-AFRICAN AMERICAN 57
[2017-05-31] MEDS: Insulin Detemir 100 units/ml Vial (Levemir) SC SCH ×2 (10:01→17:31)
[2017-05-31] MEDS: Bacitracin Ointment 30 GM TUBE TOP SCH (10:04)
--- NOTE | 2017-05-31 11:14 | CARD ---
APPROVED REPORT EKG Measurement Heart [id number] <Conclusion> V. Paced with one PVC
--- NOTE | 2017-05-31 12:28 | PN ---
DATE: 05/30/2017 PULMONARY PROGRESS NOTE REFERRING PHYSICIAN: Dr. Villagomez. SUBJECTIVE: Patient is sitting up in a chair. Night was unremarkable. Feels okay. No cough. No sputum production. No nausea. No vomiting. No abdominal pain. He has a persistent leg swelling and left lower extremity pain. OBJECTIVE GENERAL: No acute distress. VITAL SIGNS: Temperature is 98, heart rate is 96, respiratory rate is 20, blood pressure is 134/79, and pulse ox 98% on nasal cannula. HEENT: Moist mucous membranes. Crowded airway. Mallampati score is 4. NECK: Supple. No JVD. LUNGS: Has a fair airflow with rhonchi. HEART: S1 and S2. ABDOMEN: Soft and nontender. No organomegaly. EXTREMITIES: Has edema of both lower extremities. Left lower extremity, nonhealing ulcer. NEUROLOGIC: Awake, alert, follow simple commands. MEDICATIONS: He is on glimepiride 4 mg daily, Ativan 1 mg twice a day p.r.n., Bacitracin ointment to affected area, Cardizem 30 mg twice a day, Coumadin 10 mg daily, trazodone 150 mg daily, DuoNeb q. 4 hours p.r.n., Lasix 40 mg three times a day, Levemir 40 units subcu , gabapentin 300 mg twice a day, Percocet 10/325 mg one tablet q. 4 hours p.r.n., ReQuip 0.5 mg at bedtime, Singulair 10 mg at bedtime, vancomycin 1 g q. 12 hours, Zestril 2.5 mg daily. LABORATORY DATA: Reviewed. INR 1.61. Blood sugar 127. Blood culture has Gram-positive cocci. Had a venous arterial Doppler done, the report is pending. IMPRESSION AND PLAN: Cardiomyopathy, atrial fibrillation, history of cardioversion and automatic implantable cardioverter-defibrillator placement in the past, pulmonary hypertension, congestive heart failure, chronic obstructive lung disease, sleep apnea syndrome, diabetes, hypertension, obesity, history of recurrent thromboembolic disease, requiring thrombectomy in the past of lower extremity, still has ischemia of the left foot and nonhealing ulcer, probably gram-positive cocci in the blood, on vancomycin. From pulmonary point view, keep head at 45 degrees. He does have sleep apnea syndrome and noncompliant with continuous positive airway pressure/bilevel positive airway pressure. Understand risk-benefit ratio. Continue bronchodilator. Gastric prophylaxis. Fall precaution. INR in the morning. We will suggest getting Dr. Dunaway's vascular consult and his opinion. Thank you and we will follow with you. Tia Godinez MD
--- NOTE | 2017-05-31 14:57 | CT ---
PROCEDURE: CT Abdomen and Pelvis with Oral contrast. HISTORY: eval for abscess/infectious process COMPARISON: None. TECHNIQUE: Contiguous axial images of the abdomen and pelvis. Oral contrast was administered. No IV contrast given. Coronal and Sagittal reformats generated. Radiation dose: Total exam DLP = This CT exam was performed using one or more of the following dose reduction techniques: Automated exposure control, adjustment of the mA and/or kV according to patient size, and/or use of iterative reconstruction technique. FINDINGS: LOWER THORAX: There is a small right pleural effusion LIVER: Unremarkable. No gross lesion or ductal dilatation. GALLBLADDER AND BILE DUCTS: Unremarkable. PANCREAS: Unremarkable. No mass. No ductal dilatation. SPLEEN: Unremarkable. No splenomegaly. ADRENALS: Unremarkable. KIDNEYS AND URETERS: Unremarkable. No stone or hydronephrosis. BLADDER: Grossly unremarkable. REPRODUCTIVE: Unremarkable. APPENDIX: Unremarkable. BOWEL: Unremarkable. No obstruction. No gross mural thickening. PERITONEUM: Unremarkable. No fluid collection. No free air. LYMPH NODES: Unremarkable. No enlarged lymph nodes. VASCULATURE: Unremarkable. No aortic aneurysm. BONES: No fracture or destructive lesion. OTHER FINDINGS: None. IMPRESSION: No acute intra-abdominal findings
--- NOTE | 2017-05-31 15:27 | PN ---
DATE: 05/31/2017 LOCATION: The patient is in room 570, bed 1. REASON FOR CONSULTATION AND FOLLOWUP: Lower extremity edema and pain in the leg, history of nonischemic cardiomyopathy, paroxysmal atrial fibrillation, status post ablation, status post AICD insertion. SUBJECTIVE: Patient still complains pain in the left leg in the lower part. His breathing is better. Denies any chest palpitation or any chest pain at this moment. PHYSICAL EXAMINATION: VITAL SIGNS: Blood pressure is 107/52, respirations 20, pulse 72, and temperature 98. HEENT: Head is normocephalic. Eyes: Pupils normal. Conjunctivae slightly pale. NECK: JVP low. Carotids equal. THORAX: AP diameter normal. LUNGS: No rales. CARDIOVASCULAR: S1 and S2. ABDOMEN: Soft, protuberant. No organomegaly. EXTREMITIES: Edema on the legs is decreasing. LABORATORY DATA: WBC 7.8, hemoglobin 11.1, hematocrit 35, platelets 102. Sodium 139, potassium 4.2. BUN 30, creatinine 1.3. Sugar is 80. AST and ALT normal. Protein and albumin normal. Ultrasound of the leg showed relatively normal TREVON and PVR examination. No evidence of left popliteal artery occlusion. Chest x-ray was done yesterday showed no active pulmonary disease. No evidence of any cardiac abnormalities in chest x-ray. DIAGNOSES: Decompensated congestive heart failure due to systolic failure, acute on chronic left ventricular systolic dysfunction, ejection fraction 45%, nonischemic cardiomyopathy, history of morbid obesity, radiofrequency ablation of atrial fibrillation, paroxysmal atrial fibrillation, history of automatic implantable cardioverter-defibrillator insertion, obesity, poor compliant patient. PLAN: Patient is on glimepiride 4 mg daily, Cardizem 30 mg p.o. b.i.d., warfarin 7.5 mg daily, daptomycin 700 mg IV q. 24 hours, Desyrel 150 mg p.o. at bedtime, furosemide 40 mg p.o. t.i.d., insulin 40 units subcu a.c. twice daily. We will follow with you. Tia Cabello MD
--- NOTE | 2017-05-31 16:43 | PN ---
DATE: 05/31/2017 SUBJECTIVE: The patient has no complaints of any chest pain. No shortness of breath. No headaches. PHYSICAL EXAMINATION: VITAL SIGNS: Temperature is 98, pulse is 72, blood pressure is 104/70, respirations 20. GENERAL: The patient is lying in bed, flat, comfortable. HEENT: No oral lesion. Anicteric sclerae. Moist mucosa. NECK: No JVD, adenopathy, or thyromegaly. CARDIOVASCULAR: S1 and S2, regular. No murmurs, rubs, or gallops. LUNGS: Clear to auscultation bilaterally. No wheeze, rales, or rhonchi. ABDOMEN: Bowel sounds are positive, soft, nontender and nondistended. EXTREMITIES: No cyanosis, clubbing or edema. LABORATORY DATA: White count of 10.8, hemoglobin 11.1. CT of the abdomen and pelvis done shows no acute intraabdominal findings. ASSESSMENT: 1. Sepsis. 2. Left leg ulcer, 1.5 cm. 3. Congestive heart failure secondary to systolic dysfunction, chronic, stable. 4. Chronic obstructive pulmonary disease, stable. 5. Diabetes type 2. 6. Hypertension. 7. Peripheral arterial disease. 8. Restless legs syndrome. 9. Atrial fibrillation, on Coumadin. 10. Pacemaker/automatic implantable cardioverter-defibrillator. 11. Gastric bypass. 12. Morbid obesity with a body mass index of 42. PLAN: The patient is currently comfortable. An echo has been ordered because the patient has blood cultures that are positive for gram-positive cocci x3. The patient is being followed by Dr. Rajan from Cardiology and Dr. Godinez from Pulmonary. We will continue the patient on diltiazem. The patient is on Coumadin for anticoagulation. He is on trazodone. The patient is getting antibiotics with Zosyn. The patient is on Tylenol as well as continue Zestril for hypertension. The patient is also on daptomycin. The patient is being followed by ID. The patient will have an INR that is pending tomorrow. Axel Villagomez MD
--- NOTE | 2017-05-31 16:44 | CP.PCM.PN ---
Subjective - Date & Time of Evaluation Date of Evaluation: 05/31/17 Time of Evaluation: 11:55 - Subjective Subjective: No fevers today but had chills and fevers yesterday. Objective - Vital Signs/Intake and Output Vital Signs (last 24 hours): Temp Pulse Resp BP Pulse Ox 98.0 F 70 20 108/60 94 L 05/31/17 07:38 05/31/17 10:03 05/31/17 07:38 05/31/17 10:03 05/31/17 07:38 Intake and Output: 05/31/17 05/31/17 06:59 18:59 Intake Total 240 Balance 240 - Medications Medications: Current Medications Acetaminophen (Tylenol 325mg Tab) 650 mg PO Q4H PRN PRN Reason: Fever >100.4 F Last Admin: 05/31/17 05:21 Dose: 650 mg Albuterol/Ipratropium (Duoneb 3 Mg/0.5 Mg (3 Ml) Ud) 3 ml IH Q4H PRN PRN Reason: Shortness of Breath Bacitracin (Bacitracin) 1 gm TOP DAILY [facility] Last Admin: 05/31/17 10:04 Dose: 1 applic Diltiazem HCl (Cardizem) 30 mg PO BID [facility] Last Admin: 05/31/17 10:00 Dose: 30 mg Furosemide (Lasix) 40 mg PO TID [facility] Last Admin: 05/31/17 10:00 Dose: 40 mg Gabapentin (Neurontin) 300 mg PO BID [facility] PRN Reason: Protocol Last Admin: 05/31/17 10:00 Dose: 300 mg Glimepiride (Amaryl) 4 mg PO DAILY [facility] Last Admin: 05/31/17 10:01 Dose: 4 mg Piperacillin Sod/Tazobactam Sod (Zosyn 3.375 In Ns 100ml) 100 mls @ 200 mls/hr IVPB Q6 [facility] PRN Reason: Protocol Stop: 06/07/17 00:01 Last Admin: 05/31/17 05:19 Dose: 200 mls/hr Daptomycin 770 mg/ Sodium (Chloride) 100 mls @ 200 mls/hr IV Q24H [facility] Stop: 06/13/17 16:01 Last Admin: 05/30/17 18:03 Dose: 200 mls/hr Sodium Chloride (Sodium Chloride 0.9%) 1,000 mls @ 50 mls/hr IV .Q20H [facility] Last Admin: 05/30/17 18:19 Dose: 50 mls/hr Insulin Detemir (Levemir) 40 unit SC ACBD [facility] Last Admin: 05/31/17 10:01 Dose: 40 unit Insulin Human Regular (Humulin R Med) 0 units SC ACHS [facility] PRN Reason: Protocol Last Admin: 05/31/17 08:30 Dose: Not Given Lisinopril (Zestril) 2.5 mg PO DAILY [facility] Last Admin: 05/31/17 10:03 Dose: 2.5 mg Lorazepam (Ativan) 1 mg PO BID PRN; Protocol PRN Reason: Anxiety Last Admin: 05/30/17 21:29 Dose: 1 mg Montelukast Sodium (Singulair) 10 mg PO HS [facility] Last Admin: 05/30/17 21:29 Dose: 10 mg Oxycodone/Acetaminophen (Percocet 10/325 Mg Tab) 1 tab PO Q4H PRN PRN Reason: Pain, moderate (4-7) Last Admin: 05/30/17 18:27 Dose: 1 tab Ropinirole HCl (Requip) 0.5 mg PO HS [facility] Last Admin: 05/30/17 21:28 Dose: 0.5 mg Trazodone HCl (Desyrel) 150 mg PO HS [facility] Last Admin: 05/30/17 21:29 Dose: 150 mg Warfarin Sodium (Coumadin) 7.5 mg PO 1800 [facility] PRN Reason: Protocol - Labs Labs: 05/31/17 06:40 05/31/17 06:40 PT 22.3 SECONDS (9.4-12.5) H 05/31/17 06:40 INR 1.91 (0.93-1.08) H 05/31/17 06:40 APTT 28.7 Seconds (25.1-36.5) 05/28/17 23:00 - Constitutional Appears: Chronically Ill - Head Exam Head Exam: NORMAL INSPECTION - ENT Exam ENT Exam: Mucous Membranes Moist - Neck Exam Neck Exam: absent: Meningismus - Respiratory Exam Respiratory Exam: Decreased Breath Sounds - Cardiovascular Exam Cardiovascular Exam: +S1, +S2 - GI/Abdominal Exam GI & Abdominal Exam: Soft. absent: Tenderness Assessment and Plan - Assessment and Plan (Free Text) Plan: Assessment Sepsis due to persistent E. faecalis bacteremia, R/O endocarditis, R/O left leg infection HTN DM COPD atrial fibrillation on anticoagulation chronic CHF chronic leg wound S/P gastric bypass surgery S/P left leg thrombectomy Plan continue Daptomycin and Zosyn pending final sensitivities of the E. faecalis in the blood; repeat blood cx still positive, suspicious for endocarditis - would recommend CORA follow up 2D echo results CT A/P does not show acute pathology will continue to monitor clinically
[2017-05-31] MEDS: Sodium Chloride 0.9% 1,000 ML IV SCH (17:32)
[2017-06-01] MEDS: Piperacillin/Tazobact 3.375 gm 100 ML IVPB SCH ×4 (01:05→18:02)
[2017-06-01 07:08] LABS: BASO # 0.04 K/mm3 (0.0-2.0); BASO % 0.6 % (0.0-3.0); EOS # 0.1 (0.0-0.7); EOS % 1.5 % (1.5-5.0); GRAN # 4.83 (1.4-6.5); HEMOGLOBIN 10.7 g/dL (14.0-18.0); LYMPH # 1.2 (1.2-3.4); LYMPH % 17.7 % (22.0-35.0); MEAN CELL VOLUME 86.8 fl (80.0-105.0); MEAN CORPUSCULAR HEMOGLOBIN 27.6 pg (25.0-35.0); MEAN CORPUSCULAR HGB CONC 31.8 g/dl (31.0-37.0); MONO # 0.6 (0.1-0.6); MONO % 8.2 % (1.0-6.0); RBC 3.87 10^6/uL (3.5-6.1); RED CELL DISTRIBUTION WIDTH 15.8 % (11.5-14.5); WHITE BLOOD COUNT 6.7 10^3/ul (4.5-11.0)
[2017-06-01 07:21] LABS: INR 2.85 (0.93-1.08); PROTHROMBIN TIME 33.5 SECONDS (9.4-12.5)
[2017-06-01 07:45] LABS: ALB/GLOB RATIO 1.2 (1.1-1.8); ALBUMIN 3.5 g/dL (3.0-4.8); ALT/SGPT 42 U/L (7-56); AST/SGOT 38 U/L (17-59); BLOOD UREA NITROGEN 25 mg/dL (7-21); CALCIUM 8.7 mg/dL (8.4-10.5); GFR AFRICAN-AMERICAN > 60; GFR NON-AFRICAN AMERICAN > 60
[2017-06-01] MEDS: Insulin Reg-MEDIUM-Coverage SC SCH ×4 (08:14→22:12)
[2017-06-01] MEDS: Insulin Detemir 100 units/ml Vial (Levemir) SC SCH ×3 (08:15→18:14)
--- NOTE | 2017-06-01 08:29 | PN ---
DATE: 06/01/2017 SUBJECTIVE: The patient has no complaints of any chest pain. No shortness of breath. No headaches or dizziness. He continues to have pain in the left leg. PHYSICAL EXAMINATION: VITAL SIGNS: Temperature is 98, pulse is 74, blood pressure is 122/67, respirations 16. GENERAL: The patient is lying in bed, flat, comfortable. HEENT: No oral lesion. Anicteric sclerae. Moist mucosa. NECK: No JVD, adenopathy, or thyromegaly. CARDIOVASCULAR: S1 and S2, regular. No murmurs, rubs, or gallops. LUNGS: Clear to auscultation bilaterally. No wheeze, rales, or rhonchi. ABDOMEN: Bowel sounds are positive, soft, nontender and nondistended. EXTREMITIES: No cyanosis, clubbing or edema. Left leg with a 1.5 cm ulcer. LABORATORY DATA: White count of 10.8, hemoglobin is 11.1. Creatinine is 1.3. The patient has abdominal CT done that shows no acute abnormalities. ASSESSMENT: 1. Sepsis. 2. Left leg ulcer, 1.5 cm. 3. Congestive heart failure secondary to systolic dysfunction, chronic, stable. 4. Chronic obstructive pulmonary disease. 5. Diabetes type 2. 6. Hypertension. 7. Peripheral arterial disease. 8. Restless legs syndrome. 9. Atrial fibrillation, on Coumadin. 10. Pacemaker/automatic implantable cardioverter-defibrillator. 11. Gastric bypass. 12. Morbid obesity with a body mass index of 42. PLAN: The patient has blood cultures that are positive for gram-positive cocci. There are 3 out of 4 bottles that are positive. The patient is being followed by Infectious Disease. An echocardiogram has been done, results are pending. The patient also had a duplex lower extremity arterial Doppler done that shows no evidence of thrombosis or significant stenosis in the left popliteal artery. The patient had normal ABIs at rest. No evidence left popliteal artery occlusion. The note from Dr. Valentin has been reviewed with the Infectious Disease doctor. The patient is going to continue daptomycin and Zosyn. The patient is being followed by Cardiology to evaluate the echo. If the echo is negative, the patient will most likely need a CORA. The patient is on his Amaryl for his diabetes. Yesterday, the patient's fingersticks were low into the 50s and I decreased the patient's insulin from 40 units of Levemir to 30 units of Levemir. The patient is going to continue with Ativan for anxiety. He is going to be on trazodone for his anxiety as well. He is getting nebulizer treatments as needed. He is on IV fluids. I will discontinue his IV fluids. He does have a history of heart failure. He is on Zestril for his heart. The patient is on oxygen. He is getting heart-healthy diet. His INR has been subtherapeutic yesterday at 1.9. The patient is also awaiting consultation with Dr. Jacek Dunaway, Vascular. Axel Villagomez MD
--- NOTE | 2017-06-01 08:58 | CON ---
DATE: 05/31/2017 REQUESTING PHYSICIAN: Tia Godinez MD REASON FOR REQUEST: Left leg ulcer. HISTORY OF PRESENT ILLNESS: This 56-year-old male patient with multiple comorbidities was admitted with bilateral leg swelling as well as ulcer of the left leg. PAST MEDICAL HISTORY: Remarkable for COPD, congestive heart failure, diabetes, hypertension, peripheral arterial disease, atrial fibrillation. PAST SURGICAL HISTORY: Left leg thrombectomy, gastric bypass, AICD. SOCIAL HISTORY: The patient has a history of cocaine and alcohol use in the past and quit smoking about 25 years ago. FAMILY HISTORY: Not remarkable. MEDICATIONS: Both his home and in house medications were reviewed. ALLERGIES: TO QUETIAPINE. REVIEW OF SYSTEMS: SKIN: Leg ulcer. No eczema, dermatitis. HEENT: No migraines. No double vision, sore throat, epistaxis. No hardness of hearing. LUNGS: Shortness of breath. CARDIOVASCULAR: Congestive heart failure. GASTROINTESTINAL: No abdominal pain, nausea, vomiting, diarrhea, or hematochezia. GENITOURINARY: No dysuria, hematuria. MUSCULOSKELETAL: See history of present illness. NEUROLOGIC: No paralysis, paresthesia. PSYCHIATRIC: The patient has a history of depression. PHYSICAL EXAMINATION: GENERAL: Revealed an somnolent patient in bed, nasal cannula in place. HEAD AND NECK: Mucous membranes pink. No jaundice. Neck supple. No masses. CHEST: No masses. Equal expansion. LUNGS: Basilar rhonchi. HEART: Heart sounds one and two were heard. pulses equal. ABDOMEN: Obese, soft, nontender. No masses. EXTREMITIES: Bilateral pitting edema. No gangrene. There was an ulcer on the lateral left leg. VASCULAR: Difficulty palpating pulses secondary to lower extremity edema. DIAGNOSES: Bilateral leg edema, left leg ulcer, congestive heart failure, chronic obstructive pulmonary disease, diabetes, hypertension, atrial fibrillation. RECOMMENDATION: Leg elevation and compression. Local care to the ulcer and local debridement if necessary. Will review prior vascular workup. Jacek Dunaway MD [facility] SYSTEMAlbert
--- NOTE | 2017-06-01 09:07 | PN ---
DATE: 05/31/2017 PULMONARY PROGRESS NOTE REFERRING PHYSICIAN: Axel Villagomez MD SUBJECTIVE: Patient is sitting up in a chair, overnight events noted, had the rapid response done, fever up to 102. Feels much better today. Supposed to see Vascular Surgery. Not much cough, no sputum production. No nausea, no vomiting, no diarrhea. Has a significant left leg pain. OBJECTIVE: GENERAL: In no acute distress. VITAL SIGNS: Temperature is 98, heart rate 78, respiratory rate is 20, blood pressure 102/58, pulse ox is 94% on 2 L of nasal cannula. HEENT: Moist mucous membrane. Crowded airway. Mallampati score is 4. NECK: Supple. No JVD. LUNGS: Have a fair airflow. No rhonchi. HEART: S1 and S2. ABDOMEN: Soft, nontender. No organomegaly. EXTREMITIES: Have edema of both legs. Left leg has nonhealing ulcer, tender to touch. NEUROLOGICAL: Awake and alert. Follows simple command. MEDICATIONS: He is on Amaryl 4 mg daily, Ativan 1 mg twice a day p.r.n., bacitracin ointment to affected area, Cardizem 30 mg twice a day, also on Coumadin 7.5 mg daily, daptomycin mg daily, trazodone 150 mg at bedtime, DuoNeb q.4 hours p.r.n., insulin coverage, Lasix 40 mg three times a day, Levemir 30 units a.c. , Neurontin is 300 mg twice a day, Percocet 10/325 one tablet q.4 hours p.r.n., Requip 0.5 mg at bedtime, Singulair 10 mg at bedtime, IV fluid normal saline 50 mL/hour, Tylenol p.r.n. basis, Zestril 2.5 mg daily, Zosyn 3.375 g q.6 hours. LABORATORY DATA: Shows hemoglobin 11.1, hematocrit 35.7, WBC 10.8, platelet is 102. INR 1.91. Sodium 139, potassium 4.2, chloride 103, bicarbonate 29, BUN 30, creatinine 1.3, glucose 112, calcium 8.6. AST 32, ALT 28, alkaline phosphatase is 46, albumin is 3.4. Has a gram-positive cocci in the blood culture. Echocardiogram done, report is pending. Has a CAT scan of the abdomen done, which shows no acute intraabdominal finding. IMPRESSION AND PLAN: Bacteremia, cardiomyopathy, atrial fibrillation, history of cardioversion, automatic implantable cardioverter defibrillator, pulmonary hypertension, congestive heart failure, obstructive lung disease, obstructive sleep apnea syndrome, diabetes, hypertension, obesity, recurrent thromboembolic disease, secondary to noncompliant with anticoagulation, has severe vascular insufficiency in the left lower extremity with nonhealing ulcer. bacteremia, on antibiotics. Continue bronchodilator. Keep head at 45 degrees. Sleep apnea precaution. Awaiting to be seen by Dr. Jacek Dunaway. Follow up INR in the morning. Fall precaution. Thank you and we will follow with you. Tia Godinez MD
--- NOTE | 2017-06-01 10:00 | CARD ---
APPROVED REPORT EXAM: Two-dimensional and M-mode echocardiogram with Doppler and color Doppler. Other Information Quality : FairRhythm : INDICATION Infection:Rule out subacute bacterial endocarditis 2D DIMENSIONS Left Atrium (2D)4.7 (1.6-4.0cm)IVSd1.3 (0.7-1.1cm) LVDd5.4 (3.9-5.9cm)PWd1.4 (0.7-1.1cm) LVDs4.5 (2.5-4.0cm)FS (%) 16.8 % LVEF (%)34.9 (>50%) M-Mode DIMENSIONS Aortic Root3.10 (2.2-3.7cm)Aortic Cusp Exc.1.60 (1.5-2.0cm) Aortic Valve AoV Peak Bmsbhibv613.0cm/Susan Peak GR.5mmHg Mitral Valve MV E Whkauezv79.3cm/sMV A Tvgfwdnn14.0cm/sE/A ratio2.6 TDI Lateral E' Peak V5.95cm/sMedial E' Peak V4.48cm/sE/Lateral E'16.2 E/Medial E'21.5 Pulmonary Valve PV Peak Fdzjlojd21.0cm/sPV Peak Grad.2mmHg Tricuspid Valve TR Peak Mhwazydo458pp/sRAP [id number] Peak Gr.37mmHg [id number] LEFT VENTRICLE The left ventricle is normal size. There is mild concentric left ventricular hypertrophy. Left ventricle systolic function is moderately to severely impaired. The EF is - 35% There is moderate to severe global hypokinesis. RIGHT VENTRICLE The right ventricle is mildly dilated. There is a pacemaker lead in the right ventricle. ATRIA The left atrium is moderately dilated. The right atrium is mildly dilated. There is a catheter/pacemaker lead seen in the right atrium. AORTIC VALVE The aortic valve is normal in structure. MITRAL VALVE The mitral valve is normal in structure. Mitral regurgitation is mild. TRICUSPID VALVE The tricuspid valve is normal in structure. There is mild tricuspid regurgitation. There is mild-moderate pulmonary hypertension. PULMONIC VALVE The pulmonic valve is not well visualized. GREAT VESSELS The aortic root is normal in size. PERICARDIAL EFFUSION There is no pericardial effusion. <Conclusion> The left ventricle is normal size. There is mild concentric left ventricular hypertrophy. Left ventricle systolic function is moderately to severely impaired. The EF is - 35% There is moderate to severe global hypokinesis. Mitral regurgitation is mild. There is mild tricuspid regurgitation. There is mild-moderate pulmonary hypertension. No vegetation seen.
[2017-06-01] MEDS: Bacitracin Ointment 30 GM TUBE TOP SCH (11:00)
--- NOTE | 2017-06-01 12:11 | CP.PCM.PN ---
Subjective - Date & Time of Evaluation Date of Evaluation: 06/01/17 Time of Evaluation: 12:03 - Subjective Subjective: c/0 L leg pain, ulcer Objective - Vital Signs/Intake and Output Vital Signs (last 24 hours): Temp Pulse Resp BP Pulse Ox 98 F 69 20 117/72 97 06/01/17 07:41 06/01/17 09:13 06/01/17 07:41 06/01/17 09:13 06/01/17 07:41 Intake and Output: 06/01/17 06/01/17 06:59 18:59 Intake Total 1540 Balance 1540 - Medications Medications: Current Medications Acetaminophen (Tylenol 325mg Tab) 650 mg PO Q4H PRN PRN Reason: Fever >100.4 F Last Admin: 05/31/17 05:21 Dose: 650 mg Albuterol/Ipratropium (Duoneb 3 Mg/0.5 Mg (3 Ml) Ud) 3 ml IH Q4H PRN PRN Reason: Shortness of Breath Bacitracin (Bacitracin) 1 gm TOP DAILY [facility] Last Admin: 05/31/17 10:04 Dose: 1 applic Diltiazem HCl (Cardizem) 30 mg PO BID [facility] Last Admin: 06/01/17 09:13 Dose: 30 mg Furosemide (Lasix) 40 mg PO TID [facility] Last Admin: 06/01/17 09:12 Dose: 40 mg Gabapentin (Neurontin) 300 mg PO BID [facility] PRN Reason: Protocol Last Admin: 06/01/17 09:14 Dose: 300 mg Glimepiride (Amaryl) 4 mg PO DAILY [facility] Last Admin: 06/01/17 09:13 Dose: 4 mg Piperacillin Sod/Tazobactam Sod (Zosyn 3.375 In Ns 100ml) 100 mls @ 200 mls/hr IVPB Q6 [facility] PRN Reason: Protocol Stop: 06/07/17 00:01 Last Admin: 06/01/17 05:57 Dose: 200 mls/hr Daptomycin 770 mg/ Sodium (Chloride) 100 mls @ 200 mls/hr IV Q24H [facility] Stop: 06/13/17 16:01 Last Admin: 05/31/17 17:38 Dose: 200 mls/hr Insulin Detemir (Levemir) 30 unit SC ACBD [facility] Last Admin: 06/01/17 08:15 Dose: 30 unit Insulin Human Regular (Humulin R Med) 0 units SC ACHS [facility] PRN Reason: Protocol Last Admin: 06/01/17 08:14 Dose: Not Given Lisinopril (Zestril) 2.5 mg PO DAILY [facility] Last Admin: 06/01/17 09:13 Dose: 2.5 mg Lorazepam (Ativan) 1 mg PO BID PRN; Protocol PRN Reason: Anxiety Last Admin: 05/31/17 21:46 Dose: 1 mg Montelukast Sodium (Singulair) 10 mg PO HS [facility] Last Admin: 05/31/17 21:41 Dose: 10 mg Oxycodone/Acetaminophen (Percocet 10/325 Mg Tab) 1 tab PO Q4H PRN PRN Reason: Pain, moderate (4-7) Last Admin: 05/30/17 18:27 Dose: 1 tab Ropinirole HCl (Requip) 0.5 mg PO [facility] Last Admin: 05/31/17 21:41 Dose: 0.5 mg Trazodone HCl (Desyrel) 150 mg PO [facility] Last Admin: 05/31/17 21:41 Dose: 150 mg Warfarin Sodium (Coumadin) 7.5 mg PO 1800 [facility] PRN Reason: Protocol Last Admin: 05/31/17 17:27 Dose: 7.5 mg - Labs Labs: 06/01/17 06:45 06/01/17 06:45 PT 33.5 SECONDS (9.4-12.5) H 06/01/17 06:45 INR 2.85 (0.93-1.08) H 06/01/17 06:45 APTT 28.7 Seconds (25.1-36.5) 05/28/17 23:00 - Constitutional Appears: Well - Head Exam Head Exam: NORMAL INSPECTION, NORMOCEPHALIC - Eye Exam Eye Exam: PERRL Pupil Exam: NORMAL ACCOMODATION, PERRL - ENT Exam ENT Exam: Mucous Membranes Moist, Normal Exam - Neck Exam Neck Exam: Full ROM, Normal Inspection. absent: Lymphadenopathy - Respiratory Exam Respiratory Exam: Clear to Ausculation Bilateral, NORMAL BREATHING PATTERN - Cardiovascular Exam Cardiovascular Exam: REGULAR RHYTHM, +S1, +S2. absent: Murmur - GI/Abdominal Exam GI & Abdominal Exam: Soft, Normal Bowel Sounds. absent: Tenderness - Extremities Exam Extremities Exam: Full ROM, Pedal Edema, Tenderness (ulcer outer L leg) - Neurological Exam Neurological Exam: Alert, Awake, CN II-XII Intact, Normal Gait, Oriented x3 Assessment and Plan (1) Ulcer of leg, chronic, left Assessment & Plan: Latest US > patent popliteal & stent. excise ulcer. will need to be off coumadin Status: Acute
[2017-06-01] MEDS ORDERED: Sodium Chloride 0.9% 1,000 ML IV SCH (19:15)
--- NOTE | 2017-06-01 20:51 | CP.PCM.PN ---
Subjective - Date & Time of Evaluation Date of Evaluation: 06/01/17 Time of Evaluation: 12:20 - Subjective Subjective: No fevers, not in distress, no chest pain, no SOB at rest. Objective - Vital Signs/Intake and Output Vital Signs (last 24 hours): Temp Pulse Resp BP Pulse Ox 98 F 69 20 117/72 97 06/01/17 07:41 06/01/17 07:41 06/01/17 07:41 06/01/17 07:41 06/01/17 07:41 Intake and Output: 06/01/17 06/01/17 06:59 18:59 Intake Total 1540 Balance 1540 - Medications Medications: Current Medications Acetaminophen (Tylenol 325mg Tab) 650 mg PO Q4H PRN PRN Reason: Fever >100.4 F Last Admin: 05/31/17 05:21 Dose: 650 mg Albuterol/Ipratropium (Duoneb 3 Mg/0.5 Mg (3 Ml) Ud) 3 ml IH Q4H PRN PRN Reason: Shortness of Breath Bacitracin (Bacitracin) 1 gm TOP DAILY [facility] Last Admin: 05/31/17 10:04 Dose: 1 applic Diltiazem HCl (Cardizem) 30 mg PO BID [facility] Last Admin: 05/31/17 17:27 Dose: Not Given Furosemide (Lasix) 40 mg PO TID [facility] Last Admin: 05/31/17 19:00 Dose: Not Given Gabapentin (Neurontin) 300 mg PO BID [facility] PRN Reason: Protocol Last Admin: 05/31/17 17:26 Dose: 300 mg Glimepiride (Amaryl) 4 mg PO DAILY [facility] Last Admin: 05/31/17 10:01 Dose: 4 mg Piperacillin Sod/Tazobactam Sod (Zosyn 3.375 In Ns 100ml) 100 mls @ 200 mls/hr IVPB Q6 [facility] PRN Reason: Protocol Stop: 06/07/17 00:01 Last Admin: 06/01/17 05:57 Dose: 200 mls/hr Daptomycin 770 mg/ Sodium (Chloride) 100 mls @ 200 mls/hr IV Q24H [facility] Stop: 06/13/17 16:01 Last Admin: 05/31/17 17:38 Dose: 200 mls/hr Insulin Detemir (Levemir) 30 unit SC ACBD [facility] Last Admin: 06/01/17 08:15 Dose: 30 unit Insulin Human Regular (Humulin R Med) 0 units SC ACHS [facility] PRN Reason: Protocol Last Admin: 06/01/17 08:14 Dose: Not Given Lisinopril (Zestril) 2.5 mg PO DAILY [facility] Last Admin: 05/31/17 10:03 Dose: 2.5 mg Lorazepam (Ativan) 1 mg PO BID PRN; Protocol PRN Reason: Anxiety Last Admin: 05/31/17 21:46 Dose: 1 mg Montelukast Sodium (Singulair) 10 mg PO HS [facility] Last Admin: 05/31/17 21:41 Dose: 10 mg Oxycodone/Acetaminophen (Percocet 10/325 Mg Tab) 1 tab PO Q4H PRN PRN Reason: Pain, moderate (4-7) Last Admin: 05/30/17 18:27 Dose: 1 tab Ropinirole HCl (Requip) 0.5 mg PO HS [facility] Last Admin: 05/31/17 21:41 Dose: 0.5 mg Trazodone HCl (Desyrel) 150 mg PO HS [facility] Last Admin: 05/31/17 21:41 Dose: 150 mg Warfarin Sodium (Coumadin) 7.5 mg PO 1800 [facility] PRN Reason: Protocol Last Admin: 05/31/17 17:27 Dose: 7.5 mg - Labs Labs: 06/01/17 06:45 06/01/17 06:45 PT 33.5 SECONDS (9.4-12.5) H 06/01/17 06:45 INR 2.85 (0.93-1.08) H 06/01/17 06:45 APTT 28.7 Seconds (25.1-36.5) 05/28/17 23:00 - Constitutional Appears: Chronically Ill - Head Exam Head Exam: NORMAL INSPECTION - Respiratory Exam Respiratory Exam: Decreased Breath Sounds - Cardiovascular Exam Cardiovascular Exam: +S1, +S2 - GI/Abdominal Exam GI & Abdominal Exam: Soft. absent: Tenderness Assessment and Plan - Assessment and Plan (Free Text) Plan: Assessment Sepsis due to persistent E. faecalis bacteremia, R/O endocarditis HTN DM COPD atrial fibrillation on anticoagulation chronic CHF chronic leg wound S/P gastric bypass surgery S/P left leg thrombectomy Plan continue Daptomycin pending final sensitivities of the E. faecalis in the blood ; repeat blood cx still positive, suspicious for endocarditis, repeat blood cx again today - would recommend CORA - discussed with Dr. Cabello CT A/P does not show acute pathology will continue to monitor clinically
--- NOTE | 2017-06-01 22:52 | PN ---
DATE: 06/01/2017 LOCATION: Room 570, bed 1. REASON FOR CONSULTATION: Followup lower extremity edema and pain in the left leg, history of nonischemic cardiomyopathy, paroxysmal atrial fibrillation, status post ablation, status post AICD insertion, fever, blood cultures positive. SUBJECTIVE: Patient lying flat in bed without shortness of breath or chest pain. Still complains of leg pain. Denies palpitation. PHYSICAL EXAMINATION: VITAL SIGNS: Blood pressure 123/76, respirations 20, pulse 71, temperature 97.4. HEENT: Head is normocephalic. Eyes, pupils normal. Conjunctivae slightly pale. NECK: JVP low. Carotids equal. THORAX: AP diameter normal. LUNGS: Clear. CARDIOVASCULAR: S1 and S2. ABDOMEN: Soft, nontender. No organomegaly. EXTREMITIES: No clubbing, no cyanosis. Edema in leg has improved. LABORATORY DATA: WBC 6.7, hemoglobin 10.7, hematocrit 33.6, platelets 108. Sodium 139, potassium 3.9. BUN 25, creatinine 1.0. Sugar is 86. AST and ALT normal. Total protein and albumin normal. Patient's CT of abdomen and pelvis, no acute intraabdominal findings. Patient's blood cultures positive for Enterococcus faecalis. DIAGNOSES: Sepsis, Enterococcus faecalis blood cultures positive, rule out endocarditis, rule out automatic implantable cardioverter defibrillator infection, decompensated congestive heart failure, leg pain, history of morbid obesity, paroxysmal atrial fibrillation, history of radiofrequency ablation for atrial fibrillation, left ventricular ejection fraction 45%, obesity, poor compliant patient. PLAN: Patient is on antibiotics, we will do repeat blood cultures, and we will arrange transesophageal echocardiography for Sunday to rule out any endocarditis. Patient on Amaryl 4 mg p.o. daily, Cardizem 30 mg b.i.d., warfarin 7.5 mg daily. Today's prothrombin time 33.5, INR 2.85. Daptomycin 770 mg IV q. 24 hour, furosemide 40 mg p.o. t.i.d, insulin is added, Neurontin 300 mg b.i.d., ReQuip 0.5 mg p.o. at bedtime, Singulair 10 mg at bedtime, lisinopril 2.5 mg daily, piperacillin and tazobactam IV q. 6 hours. Patient is scheduled for transesophageal echo on Sunday. Tia Cabello MD [facility] # [id number]
--- NOTE | 2017-06-01 23:08 | PN ---
DATE: 06/01/2017 PULMONARY PROGRESS NOTE REFERRING PHYSICIAN: Dr. Villagomez. SUBJECTIVE: Patient is sitting up in the side of the bed. Night was unremarkable. Seen by Vascular Surgery. No chest pain. No nausea, no vomiting, no diarrhea. Does have leg swelling, nonhealing left leg ulcer. OBJECTIVE: GENERAL: In no acute distress. VITAL SIGNS: Temperature is 98, heart rate 71, respiratory rate is 20, blood pressure 99/56, pulse ox 96% on nasal cannula. HEENT: Moist mucous membrane. Crowded airway. NECK: Supple. No JVD. LUNGS: Have a fair airflow with rhonchi. HEART: S1, S2. ABDOMEN: Soft, nontender, no organomegaly. EXTREMITIES: He has edema of the lower extremity. He has nonhealing ulcer of the left leg. NEUROLOGIC: Awake, alert, follows simple commands. MEDICATIONS: He is on glimepiride 4 mg daily, Ativan 1 mg twice a day p.r.n., bacitracin ointment to affected area daily, Cardizem 30 mg q.12 hours, Coumadin 7.5 mg will be given tonight, daptomycin 750 mg q.24 hours, trazodone 50 mg at bedtime, DuoNeb q.4 hours p.r.n., insulin coverage, Lasix 40 mg three times a day, Levemir 30 units subcu , gabapentin 300 mg twice a day, Percocet 10/325 one tablet q.4 hours p.r.n., Requip 0.5 mg at bedtime, Tylenol p.r.n., Zestril 2.5 mg daily, Zosyn 3.375 g q.6 hours. LABORATORY DATA: Shows hemoglobin 10.7, hematocrit 33.6, WBC 6.7, platelets 108. INR 2.85. Sodium 139, potassium 2.9, chloride 102, bicarbonate 27, BUN 25, creatinine 1.0, glucose 69, calcium 8.7. AST 38, ALT 42, alkaline phosphatase is 53, albumin is 3.5. Had an echocardiogram done, which shows right ventricular systolic pressure is 47, LV ejection fraction of 35%. He has also mild left ventricular hypertrophy. IMPRESSION AND PLAN: Bacteremia, cardiomyopathy, atrial fibrillation, history of cardioversion, has automatic implantable cardioverter defibrillator, pulmonary hypertension, congestive heart failure, chronic lung disease, sleep apnea syndrome, hypertension, obesity, history of thromboembolic disease with peripheral vascular disease and nonhealing ulcer of the left leg. Patient is seen by Dr. Jacek Dunaway. I believe suggestion is to excise that ulcer. Patient can be placed on heparin if need to be. We will speak to Dr. Villagomez as well as Dr. Dunaway. Sleep apnea precaution - if sedation, then close cardiopulmonary monitoring. He is noncompliant with the CPAP. Thank you and we will follow with you. Tia Godinez MD
[2017-06-02] MEDS: Insulin Reg-MEDIUM-Coverage SC SCH ×4 (08:30→21:29)
[2017-06-02] MEDS: Insulin Detemir 100 units/ml Vial (Levemir) SC SCH ×2 (08:30→16:57)
[2017-06-02 08:40] LABS: INR 2.78 (0.93-1.08); PROTHROMBIN TIME 32.7 SECONDS (9.4-12.5)
[2017-06-02] MEDS: Bacitracin Ointment 30 GM TUBE TOP SCH (09:52)
--- NOTE | 2017-06-02 20:36 | PN ---
DATE: 06/02/2017 SUBJECTIVE: Patient was seen early this morning. No fevers and chills. PHYSICAL EXAMINATION: VITAL SIGNS: Temperature is 98, blood pressure is 115/70, respiratory rate of 16. HEENT: Unremarkable. NECK: Supple. LUNGS: Have decreased breath sounds. HEART: Normal S1, S2. ABDOMEN: Soft, nontender. No rebound, no guarding. No masses. LABORATORY EXAMINATION: Reveals a white count of 6.7, hemoglobin of 10, platelets of 108. Chemistries are noted, creatinine is 1.0. Urinalysis is noted. Serology is noted. ASSESSMENT AND PLAN: A 56-year-old male with sepsis due to persistent Enterococcus faecalis bacteremia, rule out endocarditis; patient with hypertensive, diabetes, chronic for lung disease; on daptomycin, suspicious for endocarditis. We will order an HIV test. Review of orders reveals the daptomycin requires renewal, which we will do so. Repeat blood cultures from 06/01, there are no growth. We will follow with you. Patient is oriented. Nikolay Barba MD
--- NOTE | 2017-06-03 00:47 | PN ---
DATE: PULMONARY PROGRESS NOTE REFERRING PHYSICIAN: Axel Villagomez MD OBJECTIVE: He is out of bed to chair. Night was unremarkable. No headache. No rhinitis. No nausea. No vomiting. No diarrhea. Still has leg swelling. Left lower extremity, nonhealing ulcer. OBJECTIVE: GENERAL: In no acute distress. VITAL SIGNS: Temp is 98, heart rate is 71, respiratory rate is 20, blood pressure 108/61, and pulse ox 93% on nasal cannula. HEENT: Moist mucous membranes. Crowded airway. Mallampati score is 4. NECK: Supple. No JVD. LUNGS: Have a fair airflow with a few rhonchi. HEART: S1 and S2. ABDOMEN: Soft and nontender. No organomegaly. EXTREMITIES: There are some edema. Left leg has non-healing ulcer. NEUROLOGIC: Awake and alert. Follows simple commands. LABORATORY DATA: Shows INR 2.78, blood sugar is 167. Blood culture has Enterococcus faecalis. IMPRESSION AND PLAN: Bacteremia; cardiomyopathy; history of atrial fibrillation requiring cardioversion, has automatic implantable cardioverter defibrillator; pulmonary hypertension; congestive heart failure; chronic lung disease; sleep apnea syndrome; hypertension; obesity; history of thromboembolic disease, requiring thrombectomy; has peripheral vascular disease with nonhealing left leg ulcer. Pulmonary point view, doing well. Refuse to use CPAP. Continue bronchodilator. Keep head at 45 degrees. According to patient, p.o. Lasix is not working on him. We will switch to IV for a day or two. Follow electrolytes closely. Being followed by vascular surgeon. If need surgery, we will discontinue Coumadin and switch to Eliquis. Fall precautions. Sleep apnea precaution. Thank you and we will follow with you. Tia Godinez MD
[2017-06-03 07:40] LABS: INR 3.41 (0.93-1.08); PROTHROMBIN TIME 40.2 SECONDS (9.4-12.5)
[2017-06-03 07:43] LABS: GFR AFRICAN-AMERICAN > 60; GFR NON-AFRICAN AMERICAN > 60
[2017-06-03 07:57] LABS: BLOOD UREA NITROGEN 22 mg/dL (7-21)
[2017-06-03] MEDS: Insulin Reg-MEDIUM-Coverage SC SCH ×4 (08:00→22:13)
[2017-06-03] MEDS: Insulin Detemir 100 units/ml Vial (Levemir) SC SCH ×2 (08:16→17:13)
--- NOTE | 2017-06-03 09:45 | CP.PCM.PN ---
Subjective - Date & Time of Evaluation Date of Evaluation: 06/03/17 Time of Evaluation: 09:35 - Subjective Subjective: leg ulcer Objective - Vital Signs/Intake and Output Vital Signs (last 24 hours): Temp Pulse Resp BP Pulse Ox 100.1 F H 70 20 101/56 L 93 L 06/02/17 22:00 06/02/17 22:00 06/02/17 22:00 06/02/17 22:20 06/02/17 22:00 Intake and Output: 06/03/17 06/03/17 06:59 18:59 Intake Total 120 Output Total 250 Balance -130 - Medications Medications: Current Medications Acetaminophen (Tylenol 325mg Tab) 650 mg PO Q4H PRN PRN Reason: Fever >100.4 F Last Admin: 05/31/17 05:21 Dose: 650 mg Albuterol/Ipratropium (Duoneb 3 Mg/0.5 Mg (3 Ml) Ud) 3 ml IH Q4H PRN PRN Reason: Shortness of Breath Bacitracin (Bacitracin) 1 gm TOP DAILY [facility] Last Admin: 06/02/17 09:52 Dose: 1 applic Diltiazem HCl (Cardizem) 30 mg PO BID [facility] Last Admin: 06/02/17 17:07 Dose: 30 mg Furosemide (Lasix) 40 mg IVP Q12 [facility] Last Admin: 06/02/17 22:20 Dose: Not Given Gabapentin (Neurontin) 300 mg PO BID [facility] PRN Reason: Protocol Last Admin: 06/02/17 17:07 Dose: 300 mg Glimepiride (Amaryl) 4 mg PO DAILY [facility] Last Admin: 06/02/17 09:48 Dose: 4 mg Daptomycin 770 mg/ Sodium (Chloride) 100 mls @ 200 mls/hr IV Q24H [facility] Stop: 06/13/17 16:01 Last Admin: 06/02/17 20:48 Dose: 200 mls/hr Insulin Detemir (Levemir) 30 unit SC ACBD [facility] Last Admin: 06/03/17 08:16 Dose: 30 unit Insulin Human Regular (Humulin R Med) 0 units SC ACHS [facility] PRN Reason: Protocol Last Admin: 06/02/17 21:29 Dose: Not Given Lisinopril (Zestril) 2.5 mg PO DAILY [facility] Last Admin: 06/02/17 09:46 Dose: 2.5 mg Lorazepam (Ativan) 1 mg PO BID PRN; Protocol PRN Reason: Anxiety Last Admin: 06/02/17 22:09 Dose: 1 mg Montelukast Sodium (Singulair) 10 mg PO HS [facility] Last Admin: 06/02/17 21:38 Dose: 10 mg Oxycodone/Acetaminophen (Percocet 10/325 Mg Tab) 1 tab PO Q4H PRN PRN Reason: Pain, moderate (4-7) Last Admin: 05/30/17 18:27 Dose: 1 tab Ropinirole HCl (Requip) 0.5 mg PO HS [facility] Last Admin: 06/02/17 21:38 Dose: 0.5 mg Trazodone HCl (Desyrel) 150 mg PO HS [facility] Last Admin: 06/02/17 21:38 Dose: 150 mg Warfarin Sodium (Coumadin) 7.5 mg PO 1800 [facility] PRN Reason: Protocol Last Admin: 06/02/17 17:06 Dose: 7.5 mg - Labs Labs: 06/01/17 06:45 06/03/17 07:00 PT 40.2 SECONDS (9.4-12.5) H 06/03/17 07:00 INR 3.41 (0.93-1.08) H 06/03/17 07:00 APTT 28.7 Seconds (25.1-36.5) 05/28/17 23:00 - Constitutional Appears: Well - Head Exam Head Exam: ATRAUMATIC, NORMAL INSPECTION, NORMOCEPHALIC - Eye Exam Eye Exam: EOMI, Normal appearance, PERRL Pupil Exam: NORMAL ACCOMODATION, PERRL - ENT Exam ENT Exam: Mucous Membranes Moist, Normal Exam - Respiratory Exam Respiratory Exam: NORMAL BREATHING PATTERN - Cardiovascular Exam Cardiovascular Exam: REGULAR RHYTHM - GI/Abdominal Exam GI & Abdominal Exam: Soft, Normal Bowel Sounds. absent: Tenderness - Extremities Exam Additional comments: ulcer outer left leg Assessment and Plan (1) Ulcer of leg, chronic, left Status: Acute - Assessment and Plan (Free Text) Assessment: in view of dupldx results, this is not likely to be ischemic in etiology should have excision & closure. INR >3. D/C coumadin, switch to heparin & debride when INR <2.
[2017-06-03] MEDS: Bacitracin Ointment 30 GM TUBE TOP SCH (10:23)
--- NOTE | 2017-06-03 15:44 | PN ---
DATE: 06/03/2017 SUBJECTIVE: The patient has no complaints of any chest pain. No shortness of breath. No headaches or dizziness. PHYSICAL EXAMINATION: VITAL SIGNS: Temperature is 99.6, pulse of 67, blood pressure 103/63, respirations 18. GENERAL: The patient is lying in bed, flat, comfortable. HEENT: No oral lesion. Anicteric sclerae. Moist mucosa. NECK: No JVD, adenopathy, or thyromegaly. CARDIOVASCULAR: S1 and S2, regular. No murmurs, rubs, or gallops. LUNGS: Clear to auscultation bilaterally. No wheeze, rales, or rhonchi. ABDOMEN: Bowel sounds are positive, soft, nontender and nondistended. EXTREMITIES: No cyanosis, clubbing or edema. LABORATORY DATA: Labs have been reviewed. Hemoglobin is 10.7. ASSESSMENT: 1. Sepsis secondary to Enterococcus faecalis. 2. Left leg ulcer, 1.5 cm. 3. Congestive heart failure secondary to systolic dysfunction. 4. Chronic obstructive pulmonary disease. 5. Diabetes type 2. 6. Hypertension. 7. Peripheral arterial disease. 8. Restless legs syndrome. 9. Atrial fibrillation, on Coumadin. 10. Pacemaker/automatic implantable cardioverter-defibrillator. 11. Gastric bypass. 12. Morbid obesity with a body mass index of 42. PLAN: The patient has CORA that is planned for tomorrow. The patient is going to continue with Amaryl for diabetes. He is going to continue with lorazepam for anxiety. He is on daptomycin for antibiotics. He is on anticoagulation with Coumadin. The patient had INR of 3.4 this morning. I will hold the patient's Coumadin for today. The patient is going to be on Levemir for diabetes. He is going to continue with Percocet for pain. The patient is on ropinirole for restless leg syndrome. He is on Zestril for hypertension. We will wait for the CORA results. Axel Villagomez MD
--- NOTE | 2017-06-03 19:02 | PN ---
DATE: SUBJECTIVE: The patient is in bed, in no acute distress, nontoxic. No fevers and chills. PHYSICAL EXAMINATION: VITAL SIGNS: On exam, temperature is 99, blood pressure is 112/70, respiratory rate of 18. HEENT: Unremarkable. NECK: Supple. LUNGS: Have decreased breath sounds. HEART: Normal S1 and S2. ABDOMEN: Soft. LABORATORY DATA: Reveals a white count of 6.7 and a hemoglobin of 10, platelets of 108. Coagulation is noted. BUN of 22, creatinine of 0.9. Urinalysis is noted, and serology is negative. Microbiology reveals that repeat blood cultures from the 06/01/2017 are negative. Initial culture, Enterococcus faecalis in the blood first two sets, and the second bottle also. Dr. Godinez's note is reviewed. ASSESSMENT AND PLAN: This is a 56-year-old male seen earlier today in [facility], bed 1, with sepsis with persistent Enterococcus faecalis bacteremia, must rule out endocarditis, in a patient with hypertensive, diabetes, chronic lung disease, and patient has an AICD. The patient should have a transesophageal echo to rule out endocarditis. Review of the chest x-ray from the 05/30/2017 is noted. The patient did have an echo on the 05/31/2017, transthoracic echo and results are noted. Currently on daptomycin. Nikolay Barba MD
[2017-06-03] MEDS: Oxycodone/Acetaminophen 10/325 mg Tab PO PRN (20:13)
--- NOTE | 2017-06-03 21:52 | PN ---
DATE: 06/03/2017 06/03/2017REFERRING PHYSICIAN: Axel Villagomez M.D. SUBJECTIVE: He is out of bed to chair, feels a little better with IV Lasix. Has more diuresis done. No cough. No sputum production. No nausea, vomiting, no diarrhea. Still have leg swelling, left lower leg nonhealing ulcer. OBJECTIVE: GENERAL: No acute distress. VITAL SIGNS: Temperature is 98, heart rate is 70, respiratory rate is 20, T-max 100.1, blood pressure 112/76. HEENT: Moist mucous membrane. Crowded airway. NECK: Supple. No JVD. LUNGS: Has fair airflow with few rhonchi. HEART: S1 and S2. ABDOMEN: Soft, nontender. No organomegaly. EXTREMITIES: There is bilateral edema, which will decrease his left lower extremity nonhealing ulcer. NEUROLOGIC: Awake and follows simple commands. MEDICATIONS: He is on Amaryl 4 mg daily, Ativan 1 mg twice a day p.r.n. for anxiety, bacitracin ointment to affected area daily, Cardizem 30 mg twice a day, Coumadin 7.5 mg which is placed on hold, daptomycin 750 mg daily, trazodone 150 mg at bedtime, DuoNeb q.4 hours p.r.n., insulin coverage, Lasix 40 mg twice a day, Levemir 30 units subcu a.c. , gabapentin 300 mg twice a day, Percocet 10/325 one tablet q.4 hours p.r.n., Requip 0.5 mg at bedtime, Singulair 10 mg daily, Tylenol p.r.n., Zestril 2.5 mg daily. LABORATORY DATA: Shows INR today 3.41. Sodium 140, potassium 4.5, chloride 104, bicarbonate 27, BUN 22, creatinine 0.9, glucose 133, calcium is 9. Repeat blood culture since 06/01/2017, so far there is no growth. IMPRESSION AND PLAN: Bacteremia, cardiomyopathy, history of atrial fibrillation requiring cardioversion. Also has an AICD, pulmonary hypertension, congestive heart failure, chronic lung disease, sleep apnea syndrome, hypertension, obesity, history of thromboembolic disease requiring thrombectomy in the past, peripheral vascular disease, left leg nonhealing ulcers. The patient seen by Vascular and also being seen by Infectious Diseases. I believe he is scheduled for transesophageal echo. Hopefully, that is negative for thrombus or vegetation. We will discontinue Coumadin once INR is below 2. May start Eliquis while waiting for the surgery. Thank you and we will follow with you. Tia Godinez MD
--- NOTE | 2017-06-04 05:28 | PN ---
DATE: 06/02/2017 SUBJECTIVE: The patient has no complaints of any chest pain. No shortness of breath. No headaches or dizziness. PHYSICAL EXAMINATION: VITAL SIGNS: Temperature is 98.2, pulse is 71, blood pressure is 115/74, respirations 20. GENERAL: The patient is lying in bed, flat, comfortable. HEENT: No oral lesion. Anicteric sclerae. Moist mucosa. NECK: No JVD, adenopathy, or thyromegaly. CARDIOVASCULAR: S1 and S2, regular. No murmurs, rubs, or gallops. LUNGS: Clear to auscultation bilaterally. No wheeze, rales, or rhonchi. ABDOMEN: Bowel sounds are positive, soft, nontender and nondistended. EXTREMITIES: No cyanosis, clubbing or edema. LABORATORY DATA: White count of 6.7, hemoglobin 10.7. Creatinine is 1.0. ASSESSMENT: 1. Sepsis secondary to Enterococcus faecalis. Repeat blood culture on 06/01/2017 is negative. 2. Left leg ulcer, 1.5 cm. 3. Congestive heart failure secondary to systolic dysfunction, stable. 4. Chronic obstructive pulmonary disease. 5. Diabetes type 2. 6. Hypertension. 7. Peripheral arterial disease. 8. Restless legs syndrome. 9. Atrial fibrillation, on Coumadin. 10. Pacemaker/automatic implantable cardioverter-defibrillator. 11. Gastric bypass. 12. Morbid obesity with a body mass index of 42. PLAN: The patient is currently comfortable. He did have fingersticks that were low at times. His insulin regimen has been decreased. He is his Coumadin. He is on Cardizem for his atrial fibrillation. The patient is on Amaryl for his diabetes. He is going to continue with trazodone for his anxiety. He is on Neurontin for his neuropathy. He is ropinirole for his restless leg syndrome. He is on lisinopril for his hypertension. He will most likely need a CORA. His echo did not show vegetations. EF is 35%. He is being followed by Cardiology, Pulmonary and Infectious Disease. He is scheduled for a CORA on . Axel Villagomez MD
--- NOTE | 2017-06-04 07:30 | CP.PCM.PN ---
Subjective - Date & Time of Evaluation Date of Evaluation: 06/04/17 Time of Evaluation: 06:35 - Subjective Subjective: Seen and examined by me and Dr. Cabello Reason for consult and follow up: follow up lower leg edema,left leg pain due to ulcer, ischemic cardiomyopathy,atrial fibrillation, post ablation, AICD, positive blood cultures. Subjective: doing okay, denies chest pain, mild shortness of breath to and from bathroom Objective - Vital Signs/Intake and Output Vital Signs (last 24 hours): Temp Pulse Resp BP Pulse Ox 97.8 F 69 20 107/70 97 06/03/17 22:00 06/03/17 22:00 06/03/17 22:00 06/03/17 22:30 06/03/17 22:00 Intake and Output: 06/04/17 06/04/17 06:59 18:59 Intake Total 800 Output Total 1 Balance 799 - Medications Medications: Current Medications Acetaminophen (Tylenol 325mg Tab) 650 mg PO Q4H PRN PRN Reason: Fever >100.4 F Last Admin: 05/31/17 05:21 Dose: 650 mg Albuterol/Ipratropium (Duoneb 3 Mg/0.5 Mg (3 Ml) Ud) 3 ml IH Q4H PRN PRN Reason: Shortness of Breath Bacitracin (Bacitracin) 1 gm TOP DAILY [facility] Last Admin: 06/03/17 10:23 Dose: 1 applic Diltiazem HCl (Cardizem) 30 mg PO BID [facility] Last Admin: 06/03/17 17:14 Dose: Not Given Furosemide (Lasix) 40 mg IVP Q12 [facility] Last Admin: 06/03/17 22:30 Dose: Not Given Gabapentin (Neurontin) 300 mg PO BID [facility] PRN Reason: Protocol Last Admin: 06/03/17 17:13 Dose: 300 mg Glimepiride (Amaryl) 4 mg PO DAILY [facility] Last Admin: 06/03/17 10:12 Dose: 4 mg Daptomycin 770 mg/ Sodium (Chloride) 100 mls @ 200 mls/hr IV Q24H [facility] Stop: 06/13/17 16:01 Last Admin: 06/03/17 17:40 Dose: 200 mls/hr Insulin Detemir (Levemir) 30 unit SC ACBD [facility] Last Admin: 06/03/17 17:13 Dose: 30 unit Insulin Human Regular (Humulin R Med) 0 units SC ACHS [facility] PRN Reason: Protocol Last Admin: 06/03/17 22:13 Dose: Not Given Lisinopril (Zestril) 2.5 mg PO DAILY [facility] Last Admin: 06/03/17 10:15 Dose: Not Given Lorazepam (Ativan) 1 mg PO BID PRN; Protocol PRN Reason: Anxiety Last Admin: 06/03/17 22:21 Dose: 1 mg Montelukast Sodium (Singulair) 10 mg PO HS [facility] Last Admin: 06/03/17 22:21 Dose: 10 mg Oxycodone/Acetaminophen (Percocet 10/325 Mg Tab) 1 tab PO Q4H PRN PRN Reason: Pain, moderate (4-7) Last Admin: 06/03/17 20:13 Dose: 1 tab Ropinirole HCl (Requip) 0.5 mg PO HS [facility] Last Admin: 06/03/17 22:21 Dose: 0.5 mg Trazodone HCl (Desyrel) 150 mg PO HS [facility] Last Admin: 06/03/17 22:20 Dose: 150 mg Warfarin Sodium (Coumadin) 7.5 mg PO 1800 [facility] PRN Reason: Protocol Last Admin: 06/02/17 17:06 Dose: 7.5 mg - Labs Labs: 06/01/17 06:45 06/03/17 07:00 PT 40.2 SECONDS (9.4-12.5) H 06/03/17 07:00 INR 3.41 (0.93-1.08) H 06/03/17 07:00 APTT 28.7 Seconds (25.1-36.5) 05/28/17 23:00 - Constitutional Appears: Well - Eye Exam Eye Exam: Normal appearance Pupil Exam: NORMAL ACCOMODATION - ENT Exam ENT Exam: Mucous Membranes Moist, Normal Exam - Respiratory Exam Respiratory Exam: Decreased Breath Sounds, Clear to Ausculation Bilateral Additional comments: Mild shortness of breath on nasal cannula 2-3 l/min - Cardiovascular Exam Cardiovascular Exam: REGULAR RHYTHM, +S1, +S2 - GI/Abdominal Exam GI & Abdominal Exam: Soft, Normal Bowel Sounds Additional comments: obese - Extremities Exam Extremities Exam: Full ROM, Normal Capillary Refill Additional comments: left leg ulcer lateral side Assessment and Plan - Assessment and Plan (Free Text) Assessment: IMPRESSION: lower leg edema,left leg pain due to ulcer, ischemic cardiomyopathy, atrial fibrillation, post ablation, AICD, positive blood cultures.(enterococcus faecalis) non, compliant, history of left leg thrombectomy, ex=smoker,history of alcohol and coccaine abuse, gastric bypass, morbidly obese. Plan: Kept NPO For CORA today to rule out endocarditis Stable blood pressure and heart rate Continue Cardizem CD 30 mg BID, Lasix 40 mg every 12 hours, LIsinopril 2.5 mg daily,Coumadin 7.5mg daily INR 3.4 from 06/03/17- will follow up todays INR. Continue current management Will follow up Plan and treatment discussed with Dr. Rajan
[2017-06-04] MEDS: Insulin Reg-MEDIUM-Coverage SC SCH ×4 (07:59→22:00)
[2017-06-04] MEDS: Insulin Detemir 100 units/ml Vial (Levemir) SC SCH ×2 (07:59→18:05)
[2017-06-04] MEDS ORDERED: Midazolam 2 MG/2 ML VIAL ONE (12:09)
[2017-06-04] MEDS ORDERED: Flumazenil 0.1 mg/ml Inj (5ml) IVP ONE (12:10)
[2017-06-04] MEDS ORDERED: Naloxone 0.4 mg/ml Inj (Adult) ONE (12:10)
[2017-06-04] MEDS ORDERED: Midazolam 2 MG/2 ML VIAL IV ONE ×4 (12:16→12:24)
[2017-06-04] MEDS ORDERED: Sodium Chloride 0.9% 1,000 ML IV SCH (12:45)
--- NOTE | 2017-06-04 13:33 | CPOSTOP ---
DATE: 06/04/2017 CARDIAC PROCEDURE/POSTPROCEDURE NOTE (CORA) PHYSICIAN: Tia Rajan MD SOFTWARE SUPPORT REPRESENTATIVE: Jin, vehicle modification technician. TYPE OF ANESTHESIA: Moderate conscious sedation. Total dose of sedation used 3.5 mg of Versed and 100 of fentanyl, periodically started with 1 mg of Versed and 50 of fentanyl. PROCEDURE PERFORMED: CORA. FINDINGS: No evidence of endocarditis noted, decreased LV function, ejection fraction 25%. Moderate mitral regurgitation, [id number] tricuspid regurgitation. AICD lead noted, but no vegetation noted. POST PROCEDURE CONDITION: Patient remained stable. VASCULAR ACCESS: Not applied to the CORA. RADIATION DOSE: None. FLUORO TIME: None. Thank you, Dr. Villagomez providing us the opportunity in taking care of the patient, Pete Johnson. Tia Rajan MD cc: Axel Villagomez MD MTDD
[2017-06-04 14:01] VITALS: RESP 20
--- NOTE | 2017-06-04 16:45 | CARD ---
APPROVED REPORT EXAM: Transesophageal echocardiogram with color flow Doppler. INDICATION Infection : Rule out subacute bacterial endocarditis Mitral Valve E/A ratio0.0 TDI E/Lateral E'0.0E/Medial E'0.0 Tricuspid Valve TR Peak [id number]/sRAP [id number] Peak Gr.23mmHg [id number] Reason For Test : Rule out endocarditis. PROCEDURE After obtaining informed consent, patient underwent transesophageal echo in the Echo Lab. Type of Sedation : Conscious Sedation Sedation was administered by Dr. masterson. Sedation was achieved with Versed and , Fentanyl 3mg and 100 mcg fentanyl intravenously. Transesophageal probe was inserted and advanced into esophagus without difficulty. Echo enhancement indication: R/O Septal defect. Echo enhancement agent administered: Agitated Saline The CORA was performed without complications. Throughout the procedure, the blood pressure, pulse oximetry, cardiac rhythm, and rate were monitored. The patient tolerated the procedure without adverse effects. Recovery from conscious sedation was uneventful and vital signs were stable. LEFT VENTRICLE The Left Ventricle is borderline dilated. There is mild left ventricular hypertrophy. Left ventricle systolic function is moderately to severely impaired.EF-25-30% There is global hypokinesis of the left ventricle. The left ventricular diastolic function is normal. No left ventricle thrombus noted on this study. There is no ventricular septal defect visualized. There is no left ventricular aneurysm. There is no mass noted in the left ventricle. RIGHT VENTRICLE The right ventricle is mildly dilated. There is normal right ventricular wall thickness. Systolic function is mildly reduced. There is a pacemaker lead in the right ventricle. ATRIA The left atrium is moderately dilated. The right atrium is moderately dilated. There is a catheter/pacemaker lead seen in the right atrium. The interatrial septum is intact with no evidence for an atrial septal defect. AORTIC VALVE The aortic valve is mildly thickened. There is trace aortic regurgitation. There is no aortic valvular stenosis. There is no aortic valvular vegetation. MITRAL VALVE The mitral valve is normal in structure. There is no evidence of mitral valve prolapse. There is no mitral valve stenosis. Mitral regurgitation is moderate. TRICUSPID VALVE The tricuspid valve is normal in structure. There is mild to moderate tricuspid regurgitation.RVSP-35 mmof hg. There is no tricuspid valve prolapse or vegetation. There is no tricuspid valve stenosis. PULMONIC VALVE The pulmonary valve is normal in structure. There is trace pulmonic valvular regurgitation. There is no pulmonic valvular stenosis. GREAT VESSELS The aortic root is normal in size. The ascending aorta is normal in size. The pulmonary artery is normal. The IVC is normal in size and collapses >50% with inspiration. PERICARDIAL EFFUSION There is no pericardial effusion. There is no pleural effusion. <Conclusion> There is mild left ventricular hypertrophy. The right ventricle is mildly dilated. The left atrium is moderately dilated. The right atrium is moderately dilated. There is a catheter/pacemaker lead seen in the right atrium. There is a pacemaker lead in the right ventricle. There is trace aortic regurgitation. Mitral regurgitation is moderate. There is mild to moderate tricuspid regurgitation.RVSP-35 mmof hg. Mild plaque in descending aorta. No Evidece of endocarditis noted.,
--- NOTE | 2017-06-04 18:01 | PN ---
DATE: 06/04/2017 SUBJECTIVE: The patient has no complaints of any chest pain. No shortness of breath. No headache or dizziness. He feels well. He has noticed about the procedure. PHYSICAL EXAMINATION VITAL SIGNS: Temperature is 98.4, pulse is 76, blood pressure is 125/83, respirations 83. GENERAL: The patient is lying in bed, flat, comfortable. HEENT: No oral lesion. Anicteric sclerae. Moist mucosa. NECK: No JVD, adenopathy, or thyromegaly. CARDIOVASCULAR: S1 and S2, regular. No murmurs, rubs, or gallops. LUNGS: Clear to auscultation bilaterally. No wheeze, rales, or rhonchi. ABDOMEN: Bowel sounds are positive, soft, nontender and nondistended. EXTREMITIES: No cyanosis, clubbing or edema. ASSESSMENT: 1. Sepsis secondary to Enterococcus faecalis. 2. Left leg ulcer, 1.5 cm. 3. Congestive heart failure secondary to systolic dysfunction. 4. Chronic obstructive pulmonary disease. 5. Diabetes type 2. 6. Hypertension. 7. Peripheral arterial disease. 8. Restless legs syndrome. 9. Atrial fibrillation, on Coumadin. 10. Pacemaker/automatic implantable cardioverter-defibrillator. 11. Gastric bypass. 12. Morbid obesity with a body mass index of 42. PLAN: The patient is currently comfortable. The patient is going to continue with daptomycin for antibiotics. The patient is going to be on trazodone for anxiety. He is on Levemir for his diabetes. He is on Neurontin for his neuropathy. He is on Zestril for his hypertension. He has a CORA that was done by Dr. Rajan. The patient was found to have no signs of endocarditis. He will most likely need continued IV antibiotics. I will speak to ID about length of antibiotics. Axel Villagomez MD
[2017-06-04] MEDS: Bacitracin Ointment 30 GM TUBE TOP SCH (18:04)
[2017-06-04] MEDS: Oxycodone/Acetaminophen 10/325 mg Tab PO PRN (21:17)
--- NOTE | 2017-06-05 00:06 | PN ---
DATE: 06/04/2017 SUBJECTIVE: The patient is out of bed to chair, a little upset that he has to go to subacute for completing his antibiotics. No headache. No rhinitis. No nausea. No vomiting or diarrhea. No leg pain or leg swelling. OBJECTIVE: GENERAL: In no acute distress. VITAL SIGNS: Temperature is 98, heart rate is 76, respiratory rate is 20, blood pressure 118/75, pulse ox 92% on nasal cannula. HEENT: Moist mucous membrane. Crowded airway. NECK: Supple. No JVD. LUNGS: Have fair airflow with a few rhonchi. HEART: S1, S2. ABDOMEN: Soft, nontender. No organomegaly. EXTREMITIES: Decreased edema. NEUROLOGIC: Awake, alert. Follows simple command. MEDICATIONS: He is on Amaryl 4 mg daily, Ativan 1 mg twice a day p.r.n., bacitracin ointment to affected area, Cardizem 30 mg twice a day; Coumadin 7.5 mg, which is on hold; daptomycin 770 mg daily, trazodone 150 mg at bedtime, DuoNeb q.4 hours p.r.n., insulin coverage, Lasix 40 mg twice a day, Levemir 30 units subcu before meals , Neurontin 300 mg twice a day, Percocet 10/325 one tablet q.4 hours p.r.n., Requip 0.5 mg at bedtime, Singulair 10 mg daily, Tylenol p.r.n. basis and lisinopril 2.5 mg daily. LABORATORY DATA: Reviewed. Blood sugar this morning is 123. Repeat blood culture since 06/01/2017, so far there is no growth. Had CORA done today, which shows left ventricular hypertrophy; right ventricle, mildly dilated; left atrium, moderately dilated and right atrium, moderately dilated. There is a catheter/pacemaker lead seen in the left atrium, pacemaker lead in the right ventricle. The trace aortic regurg is moderate. [id number] tricuspid regurg. Right ventricular systolic pressure is 35. Mild plaque in the descending aorta. No evidence of endocarditis. IMPRESSION AND PLAN: Bacteremia, cardiomyopathy, atrial fibrillation; history of cardioversion, has automatic implantable cardioverter-defibrillator; pulmonary hypertension, congestive heart failure, chronic lung disease, sleep apnea syndrome, hypertension, obesity, thromboembolic disease requiring thrombectomy in the past, has a peripheral vascular disease and nonhealing left leg ulcer. Need to finish antibiotics before excising left leg nonhealing ulcer. Antibiotics duration as per Infectious Diseases. Sleep apnea precaution. Thank you and we will follow with you. Tia Godinez MD
--- NOTE | 2017-06-05 07:32 | CP.PCM.PN ---
Subjective - Date & Time of Evaluation Date of Evaluation: 06/05/17 Time of Evaluation: 06:10 - Subjective Subjective: Seen and examined by me and Dr. Rajan Reason for consult and follow up: follow up lower leg edema,left leg pain due to ulcer, ischemic cardiomyopathy,atrial fibrillation, post ablation, AICD, positive blood cultures. Subjective: doing okay, denies chest pain, denies shortness of breath Objective - Vital Signs/Intake and Output Vital Signs (last 24 hours): Temp Pulse Resp BP Pulse Ox 98 F 71 20 91/56 L 97 06/05/17 07:26 06/05/17 07:26 06/05/17 07:26 06/05/17 07:26 06/05/17 07:26 Intake and Output: 06/05/17 06/05/17 06:59 18:59 Intake Total 240 Balance 240 - Medications Medications: Current Medications Acetaminophen (Tylenol 325mg Tab) 650 mg PO Q4H PRN PRN Reason: Fever >100.4 F Last Admin: 05/31/17 05:21 Dose: 650 mg Albuterol/Ipratropium (Duoneb 3 Mg/0.5 Mg (3 Ml) Ud) 3 ml IH Q4H PRN PRN Reason: Shortness of Breath Bacitracin (Bacitracin) 1 gm TOP DAILY [facility] Last Admin: 06/04/17 18:04 Dose: 1 applic Diltiazem HCl (Cardizem) 30 mg PO BID [facility] Last Admin: 06/04/17 18:05 Dose: 30 mg Furosemide (Lasix) 40 mg IVP Q12 [facility] Last Admin: 06/04/17 22:38 Dose: 40 mg Gabapentin (Neurontin) 300 mg PO BID [facility] PRN Reason: Protocol Last Admin: 06/04/17 18:04 Dose: 300 mg Glimepiride (Amaryl) 4 mg PO DAILY [facility] Last Admin: 06/04/17 09:57 Dose: Not Given Daptomycin 770 mg/ Sodium (Chloride) 100 mls @ 200 mls/hr IV Q24H [facility] Stop: 06/13/17 16:01 Last Admin: 06/04/17 18:04 Dose: 200 mls/hr Insulin Detemir (Levemir) 30 unit SC ACBD [facility] Last Admin: 06/04/17 18:05 Dose: 30 unit Insulin Human Regular (Humulin R Med) 0 units SC ACHS [facility] PRN Reason: Protocol Last Admin: 06/04/17 22:00 Dose: Not Given Lisinopril (Zestril) 2.5 mg PO DAILY [facility] Last Admin: 06/04/17 09:57 Dose: Not Given Lorazepam (Ativan) 1 mg PO BID PRN; Protocol PRN Reason: Anxiety Last Admin: 06/04/17 22:49 Dose: 1 mg Montelukast Sodium (Singulair) 10 mg PO HS [facility] Last Admin: 06/04/17 21:19 Dose: 10 mg Oxycodone/Acetaminophen (Percocet 10/325 Mg Tab) 1 tab PO Q4H PRN PRN Reason: Pain, moderate (4-7) Last Admin: 06/04/17 21:17 Dose: 1 tab Ropinirole HCl (Requip) 0.5 mg PO HS [facility] Last Admin: 06/04/17 21:18 Dose: 0.5 mg Trazodone HCl (Desyrel) 150 mg PO HS [facility] Last Admin: 06/04/17 21:17 Dose: 150 mg Warfarin Sodium (Coumadin) 7.5 mg PO 1800 [facility] PRN Reason: Protocol Last Admin: 06/02/17 17:06 Dose: 7.5 mg - Labs Labs: 06/01/17 06:45 06/03/17 07:00 PT 40.2 SECONDS (9.4-12.5) H 06/03/17 07:00 INR 3.41 (0.93-1.08) H 06/03/17 07:00 APTT 28.7 Seconds (25.1-36.5) 05/28/17 23:00 - Head Exam Head Exam: NORMAL INSPECTION, NORMOCEPHALIC - Eye Exam Eye Exam: Normal appearance Pupil Exam: NORMAL ACCOMODATION - ENT Exam ENT Exam: Mucous Membranes Moist, Normal Exam - Respiratory Exam Respiratory Exam: Decreased Breath Sounds Assessment and Plan - Assessment and Plan (Free Text) Assessment: IMPRESSION: Follow up lower leg edema,left leg pain due to ulcer, ischemic cardiomyopathy,atrial fibrillation, post ablation, AICD, positive blood cultures.sepsis/bacteremia Plan: CORA done yesterday with no evidence of endocarditis. AICD site no vegetation noted LVEF 25%, Moderate MR and TR Continue current antibiotics for bacteremia Stable cardiac status Continue current medications Will follow Plan and treatment reviewed with Dr. Rajan
--- NOTE | 2017-06-05 08:15 | PN ---
DATE: SUBJECTIVE: The patient has no complaints of any chest pain. No shortness of breath. No headache or dizziness. PHYSICAL EXAMINATION VITAL SIGNS: Temperature is 97.5, pulse is 71, blood pressure 125/72, and respirations 18. GENERAL: The patient is lying in bed, flat, comfortable. HEENT: No oral lesion. Anicteric sclerae. Moist mucosa. NECK: No JVD, adenopathy, or thyromegaly. CARDIOVASCULAR: S1 and S2, regular. No murmurs, rubs, or gallops. LUNGS: Clear to auscultation bilaterally. No wheeze, rales, or rhonchi. ABDOMEN: Bowel sounds are positive. Soft, nontender and nondistended. EXTREMITIES: No cyanosis, clubbing or edema. DATA: Transesophageal echocardiogram negative for endocarditis. ASSESSMENT 1. Sepsis secondary to Enterococcus faecalis. 2. Left leg ulcer, 1.5 cm. 3. Congestive heart failure secondary to systolic dysfunction. 4. Chronic obstructive pulmonary disease. 5. Diabetes type 2. 6. Hypertension. 7. Peripheral arterial disease. 8. Restless legs syndrome. 9. Atrial fibrillation, on Coumadin. 10. Pacemaker/automatic implantable cardioverter-defibrillator. 11. Gastric bypass. 12. Morbid obesity with a body mass index of 42. PLAN: The patient is currently comfortable. The patient's CORA was negative. The patient is on Amaryl for his diabetes. He is going to continue with Ativan for his anxiety. The patient has Cardizem for his atrial fibrillation. He is going to continue with daptomycin for antibiotics. He is receiving Levemir for his diabetes. He is on Neurontin for his neuropathy. The patient is on ropinirole for his restless legs syndrome. He is on Zestril for his hypertension. The patient is on a heart-healthy diet. We will speak with ID Disease regarding length of antibiotics. The patient's blood cultures that were repeated have been negative. Axel Villagomez MD
[2017-06-05] MEDS: Insulin Reg-MEDIUM-Coverage SC SCH ×2 (08:24→12:23)
[2017-06-05 08:50] LABS: INR 2.3 (0.93-1.08); PROTHROMBIN TIME 26.9 SECONDS (9.4-12.5)
[2017-06-05] MEDS: Bacitracin Ointment 30 GM TUBE TOP SCH (10:40)
[2017-06-05] MEDS: Insulin Detemir 100 units/ml Vial (Levemir) SC SCH (10:48)
[2017-06-05] MEDS ORDERED: AMPicillin 1 GM in Sodium Chloride 0.9% 100 ML IVPB SCH (12:00)
[2017-06-05 13:46] VITALS: BP 130/81; PULSE 70; TEMP 97.5; O2SAT 92
--- NOTE | 2017-06-05 14:53 | PN ---
DATE: 06/05/2017 REASON FOR DICTATION: Addendum to initial progress note dictated by Nel Pimentel. REASON FOR ADDENDUM: We will sign off. The patient is fairly stable. Yesterday, the patient had a CORA. There is no evidence for endocarditis. Discussed with Dr. Villagomez, the admitting physician and discussed with our nurse practitioner, Nel Pimentel. We will sign off and glad to follow p.r.n. CVS is stable. Continue current treatment, IV antibiotics. We are glad to follow p.r.n. Thank you, Dr. Villagomez, for providing us the opportunity in taking care of the patient, Pete Johnson. Tia Rajan MD
--- NOTE | 2017-06-05 16:42 | CP.PCM.PN ---
Subjective - Date & Time of Evaluation Date of Evaluation: 06/05/17 Time of Evaluation: 12:30 - Subjective Subjective: No fever or chills, no nausea, no diarrhea, no abdominal pain. Objective - Vital Signs/Intake and Output Vital Signs (last 24 hours): Temp Pulse Resp BP Pulse Ox 98 F 71 20 91/56 L 97 06/05/17 07:26 06/05/17 10:42 06/05/17 07:26 06/05/17 10:42 06/05/17 07:26 Intake and Output: 06/05/17 06/05/17 06:59 18:59 Intake Total 240 Balance 240 - Medications Medications: Current Medications Acetaminophen (Tylenol 325mg Tab) 650 mg PO Q4H PRN PRN Reason: Fever >100.4 F Last Admin: 05/31/17 05:21 Dose: 650 mg Albuterol/Ipratropium (Duoneb 3 Mg/0.5 Mg (3 Ml) Ud) 3 ml IH Q4H PRN PRN Reason: Shortness of Breath Bacitracin (Bacitracin) 1 gm TOP DAILY [facility] BEDS AT [facility] Last Admin: 06/05/17 10:40 Dose: 1 applic Diltiazem HCl (Cardizem) 30 mg PO BID [facility] BEDS AT [facility] Last Admin: 06/05/17 10:39 Dose: Not Given Furosemide (Lasix) 40 mg IVP Q12 [facility] 234 BEDS AT THE [facility] Last Admin: 06/05/17 10:41 Dose: Not Given Gabapentin (Neurontin) 300 mg PO BID [facility] PRN Reason: Protocol Last Admin: 06/05/17 10:48 Dose: 300 mg Glimepiride (Amaryl) 4 mg PO DAILY [facility] 234 BEDS AT THE [facility] Last Admin: 06/05/17 11:10 Dose: 4 mg Ampicillin 1 gm/ Sodium (Chloride) 100 mls @ 200 mls/hr IVPB Q6 [facility] PRN Reason: Protocol Last Admin: 06/05/17 11:10 Dose: 200 mls/hr Insulin Detemir (Levemir) 30 unit SC ACBD [facility] 234 BEDS AT [facility] Last Admin: 06/05/17 10:48 Dose: Not Given Insulin Human Regular (Humulin R Med) 0 units SC ACHS [facility] PRN Reason: Protocol Last Admin: 06/05/17 08:24 Dose: Not Given Lisinopril (Zestril) 2.5 mg PO DAILY [facility] 234 BEDS AT [facility] Last Admin: 06/05/17 10:42 Dose: Not Given Lorazepam (Ativan) 1 mg PO BID PRN; Protocol PRN Reason: Anxiety Last Admin: 06/04/17 22:49 Dose: 1 mg Montelukast Sodium (Singulair) 10 mg PO HS [facility] Last Admin: 06/04/17 21:19 Dose: 10 mg Oxycodone/Acetaminophen (Percocet 10/325 Mg Tab) 1 tab PO Q4H PRN PRN Reason: Pain, moderate (4-7) Last Admin: 06/04/17 21:17 Dose: 1 tab Ropinirole HCl (Requip) 0.5 mg PO HS [facility] Last Admin: 06/04/17 21:18 Dose: 0.5 mg Trazodone HCl (Desyrel) 150 mg PO HS [facility] Last Admin: 06/04/17 21:17 Dose: 150 mg Warfarin Sodium (Coumadin) 7.5 mg PO 1800 [facility] PRN Reason: Protocol Last Admin: 06/02/17 17:06 Dose: 7.5 mg - Labs Labs: 06/01/17 06:45 06/03/17 07:00 PT 26.9 SECONDS (9.4-12.5) H 06/05/17 08:20 INR 2.30 (0.93-1.08) H 06/05/17 08:20 APTT 28.7 Seconds (25.1-36.5) 05/28/17 23:00 - Constitutional Appears: Non-toxic, Chronically Ill - Head Exam Head Exam: NORMAL INSPECTION - ENT Exam ENT Exam: Mucous Membranes Moist - Neck Exam Neck Exam: absent: Meningismus - Respiratory Exam Respiratory Exam: Decreased Breath Sounds - Cardiovascular Exam Cardiovascular Exam: +S1, +S2 - GI/Abdominal Exam GI & Abdominal Exam: Soft. absent: Tenderness Assessment and Plan - Assessment and Plan (Free Text) Plan: Assessment Sepsis due to persistent E. faecalis bacteremia, no vegetations or endocarditis noted on CORA S/P AICD placement HTN DM COPD atrial fibrillation on anticoagulation chronic CHF chronic leg wound S/P gastric bypass surgery S/P left leg thrombectomy Plan continue Ampicillin to complete 4 weeks from 1st negative blood cx; CT A/P does not show acute pathology CORA does not show endocarditis or pacemaker lead infection but would still prolong antibiotics since bacteremia was persistent will need weekly ESR, CRP, CBC, CMP while on antibiotics
== END 2017-06-05 17:28 | DRG 871 ==
LOC: ED 21:20 → ERH 05-29 01:41 → 3RSO 05-29 02:52 → 5RSO 05-29 11:24 → OBSVTOIN 05-30 09:36
PROVIDERS: ADMIT Internal Medicine Nephrology; ATTEND Internal Medicine Nephrology
PROC: B246ZZ4 Ultrasonography of Right and Left Heart, Transesophageal (ICD-10-PCS; principal; 2017-06-04 11:00)
DX: A41.81 Sepsis due to Enterococcus (principal); I50.23 Acute on chronic systolic (congestive) heart failure; L97.829 Non-pressure chronic ulcer of other part of left lower leg with unspecified severity; I42.9 Cardiomyopathy, unspecified; Z68.41 Body mass index [BMI] 40.0-44.9, adult; I11.0 Hypertensive heart disease with heart failure; E11.622 Type 2 diabetes mellitus with other skin ulcer; E11.40 Type 2 diabetes mellitus with diabetic neuropathy, unspecified; E11.51 Type 2 diabetes mellitus with diabetic peripheral angiopathy without gangrene; I08.1 Rheumatic disorders of both mitral and tricuspid valves; I48.0 Paroxysmal atrial fibrillation; E66.01 Morbid (severe) obesity due to excess calories; J44.9 Chronic obstructive pulmonary disease, unspecified; I25.10 Atherosclerotic heart disease of native coronary artery without angina pectoris; G25.81 Restless legs syndrome; I27.20 Pulmonary hypertension, unspecified; G47.33 Obstructive sleep apnea (adult) (pediatric); Z79.01 Long term (current) use of anticoagulants; Z79.4 Long term (current) use of insulin; Z98.84 Bariatric surgery status; Z87.891 Personal history of nicotine dependence; Z95.810 Presence of automatic (implantable) cardiac defibrillator; Z91.14 Patient's other noncompliance with medication regimen; Z95.5 Presence of coronary angioplasty implant and graft

== ENCOUNTER 2017-07-12 14:22 | Emergency (ER) | payer MEDICARE ==
[2017-07-12 14:22] VITALS: PULSE 74
[2017-07-12 14:33] VITALS: BMI 44.4
--- NOTE | 2017-07-12 14:34 | ED PDOC ---
Arrival/HPI - General Time Seen by Provider: 07/12/17 14:33 Historian: Patient - History of Present Illness Narrative History of Present Illness (Text): 07/12/17 14:34 Patient is a 56 year old male, whose past medical history includes hypertension , diabetes, COPD, atrial fibrillation on anticoagulation, chronic CHF, chronic leg wound, S/P AICD placement, s/p gastric bypass surgery, and s/p left leg thrombectomy, presents to the emergency department complaining of shortness of breath. Patient reports while outside, patient ran out of O2 from portable oxygen. Patient began experiencing shortness of breath afterwards. Also, patient mentions using a cane to ambulate for chronic left leg wound, and due to this, has developed chronic hip pain. Patient has seen PMD for pains, and today is requesting for pain medication. Denies any fever, chills, chest pain, or any other complaints at this time. He reports that immediately after arriving in the ED and getting oxygen his shortness of breath resolved. PMD: Dr. Villagomez Past Medical History - Provider Review Nursing Documentation Reviewed: Yes - Infectious Disease Hx of Infectious Diseases: None - Tetanus Immunization Tetanus Immunization: Unknown - Cardiac Hx Congestive Heart Failure: Yes Hx Hypertension: Yes - Pulmonary Hx Chronic Obstructive Pulmonary Disease (COPD): Yes - Neurological Hx Dizziness: Yes Other/Comment: numbness both thighs, pt stated "I was in a coma for 2 weeks from seroquel - HEENT Hx HEENT Disorder: Yes (eyeglasses, [place]) Other/Comment: eye sx for strabismus - Renal Hx Renal Disorder: No - Endocrine/Metabolic Hx Diabetes Mellitus Type 2: Yes - Hematological/Oncological Hx Blood Transfusions: No - Integumentary Hx Dermatological Disorder: Yes Other/Comment: ble slight redness discolorations dry skin 1.5cm x 1cm dry deep red scabb to outer lower left leg surrounded by red,dry skin, c/o severe pain - Musculoskeletal/Rheumatological Hx Falls: No - Gastrointestinal Hx Gastrointestinal Disorders: Yes (obese) Hx Gastroesophageal Reflux: Yes - Genitourinary/Gynecological Hx Genitourinary Disorders: No - Psychiatric Hx Substance Use: Yes - Past Surgical History Past Surgical History: Non-Contributing - Surgical History Hx Mastectomy: No - Anesthesia Hx Anesthesia Reactions: No Hx Malignant Hyperthermia: No - Suicidal Assessment Feels Threatened In Home Enviroment: No Family/Social History - Physician Review Nursing Documentation Reviewed: Yes Family/Social History: No Known Family HX Smoking Status: Former Smoker Hx Alcohol Use: Yes Hx Substance Use: Yes Hx Substance Use Treatment: Yes Allergies/Home Meds Allergies/Adverse Reactions: Allergies quetiapine fumarate [From Seroquel] Adverse Reaction (Verified 05/14/17 14:59) ANAPHYLAXIS wild berries Allergy (Intermediate, Uncoded 05/14/17 14:59) RASH Home Medications: Home Meds Medication Instructions Recorded Confirmed Acetaminophen/Oxycodone Hydr 1 tab PO DAILY PRN 05/14/17 07/12/17 [Percocet 10/325 mg Tab] Warfarin [Coumadin] 7 mg PO HS 05/14/17 07/12/17 Furosemide [Lasix] 80 mg PO Q12H 07/12/17 07/12/17 Review of Systems - Review of Systems Constitutional: absent: Fevers, Night Sweats ENT: absent: Sinus Congestion Respiratory: SOB. absent: Cough Cardiovascular: absent: Chest Pain Gastrointestinal: absent: Abdominal Pain, Diarrhea, Nausea, Vomiting Genitourinary Male: absent: Dysuria, Hematuria, Urinary Output Changes Musculoskeletal: absent: Myalgias Skin: absent: Rash Neurological: absent: Headache Psychiatric: absent: Anxiety Physical Exam Vital Signs Reviewed: Yes Vital Signs Temp Pulse Resp BP Pulse Ox 07/12/17 17:43 72 18 122/90 96 07/12/17 15:52 75 18 119/66 94 L 07/12/17 15:42 18 07/12/17 14:36 97.7 F 79 18 158/83 H 91 L Temperature: Afebrile Blood Pressure: Normal Pulse: Regular Respiratory Rate: Normal Appearance: Positive for: Well-Appearing Pain Distress: None Mental Status: Positive for: Alert and Oriented X 3 - Systems Exam Head: Present: Atraumatic, Normocephalic Pupils: Present: PERRL Extroacular Muscles: Present: EOMI Conjunctiva: Present: Normal Mouth: Present: Moist Mucous Membranes Neck: Present: Normal Range of Motion Respiratory/Chest: Present: Clear to Auscultation, Good Air Exchange. No: Respiratory Distress, Accessory Muscle Use Cardiovascular: Present: Regular Rate and Rhythm, Normal S1, S2. No: Murmurs Abdomen: No: Tenderness, Distention, Peritoneal Signs Back: Present: Normal Inspection Upper Extremity: Present: Normal Inspection. No: Cyanosis, Edema Lower Extremity: Present: Other (left lower leg wound). No: Tenderness (no bony hip tenderness) Neurological: Present: GCS=15, CN II-XII Intact, Speech Normal Skin: Present: Warm, Dry, Normal Color. No: Rashes Psychiatric: Present: Alert, Oriented x 3, Normal Insight, Normal Concentration Medical Decision Making ED Course and Treatment: 07/12/17 15:08 Impression: 56 year old male with shortness of breath. Physical exam shows left lower leg wound; no other acute findings upon examination. Patient reports that symptoms improved after he got his O2. Patient reports that he has home O2 and has a way to get a refill on his portable O2. Plan: -- EKG -- Hip X-Ray -- Oxycodone -- Reassess and disposition Progress Notes: 07/12/2017 15:23 Hip/Pelvis X-Ray IMPRESSION: No evidence of acute displaced fracture nor dislocation. Degenerative osteoarthritis both hip joints right greater than left. Dictator: Jeyson Rodrigues DO 07/12/17 16:27 Patient reports that R hip pain is chronic. Spoke to Dr. Mccall who is aware of patient and his complaints. Pain improved on reevaluation. Patient has O2 available at home and immediately felt better after getting o2 in the ED. He has way to get portable O2 refilled and instructed again that he needs his O2 always. - RAD Interpretation Radiology Orders: 07/12/17 14:47 Hip Bi with Pelvis Fall Protocol [HIP MIN 2V W/ PELVIS ANITA] [RAD] Stat - Medication Orders Current Medication Orders: Discontinued Medications Oxycodone/Acetaminophen (Percocet 5/325 Mg Tab) 1 tab PO STAT STA Stop: 07/12/17 14:48 Last Admin: 07/12/17 15:20 Dose: 1 tab MAR Pain Assessment Document 07/12/17 15:20 EQ (Rec: 07/12/17 15:20 EQ [id number]) Pain Reassessment Is this a pain reassessment? No Sleep Is patient sleeping during reassessment? No Presence of Pain Presence of Pain Yes - Scribe Statement The provider has reviewed the documentation as recorded by the Charlineibmadina Shell Provider Scribe Attestation: All medical record entries made by the Scribe were at my direction and personally dictated by me. I have reviewed the chart and agree that the record accurately reflects my personal performance of the history, physical exam, medical decision making, and the department course for this patient. I have also personally directed, reviewed, and agree with the discharge instructions and disposition. Disposition/Present on Arrival - Present on Arrival Any Indicators Present on Arrival: No History of DVT/PE: No History of Uncontrolled Diabetes: No Urinary Catheter: No History Surgical Site Infection Following: None - Disposition Have Diagnosis and Disposition been Completed?: Yes Diagnosis: Osteoarthritis, Oxygen dependent Disposition: HOME/ ROUTINE Disposition Time: 16:28 Patient Plan: Discharge Condition: GOOD Discharge Instructions (ExitCare): Osteoarthritis (DC) Additional Instructions: Follow-up with Dr. Mccall within 2 days. Return to ED if condition worsens. Use your home O2 at all times Referrals: Axel Villagomez MD [Primary Care Provider] - Follow up with primary Forms: [employer] ([place])
[2017-07-12 14:36] VITALS: RESP 18; TEMP 97.7
[2017-07-12] MEDS ORDERED: Oxycodone/Acetaminophen 5/325 mg Tab PO STA (14:47)
--- NOTE | 2017-07-12 15:25 | RAD ---
PROCEDURE: Pelvis bilateral hips dated 07/12/2017. HISTORY: Right hip pain COMPARISON: Comparison made with prior CT scan of the abdomen pelvis 05/31/2017 which image the pelvis and both hips in 3 planes. The the the scroll FINDINGS: BONES: The at current study reveals no evidence of acute displaced fracture nor dislocation. Both femoral heads are appropriately located within the respective acetabula. JOINTS: Arthritic changes both hip joints right-sided more significant than the left with joint space narrowing and with mild to moderate subchondral sclerosis. . Productive changes arising from the superolateral margins of both acetabular roofs also noted. SOFT TISSUES: Soft tissues appear grossly unremarkable. OTHER FINDINGS: None. IMPRESSION: No evidence of acute displaced fracture nor dislocation. Degenerative osteoarthritis both hip joints right greater than left.
[2017-07-12 17:44] VITALS: BP 122/90; PULSE 72; O2SAT 96
--- NOTE | 2017-07-13 08:32 | CARD ---
APPROVED REPORT EKG Measurement Heart [id number] <Conclusion> Pacemaker Rymillym. Fusion Beat.
== END 2017-07-12 17:44 | disposition home or self-care (01) ==
LOC: ED 14:22
DX: R06.02 Shortness of breath (principal)

== ENCOUNTER 2017-07-13 14:32 | Inpatient (IN) | payer MEDICARE ==
[2017-07-13 14:33] VITALS: PULSE 74
[2017-07-13 14:41] VITALS: BMI 43.7
--- NOTE | 2017-07-13 15:20 | ED PDOC ---
Arrival/HPI <Sadi Dias - Last Filed: 07/13/17 19:06> - General Historian: Patient - History of Present Illness Time/Duration: > week Symptom Onset: Gradual Symptom Course: Intermittent <Karla Spann - Last Filed: 07/13/17 19:33> - General Chief Complaint: Shortness Of Breath Time Seen by Provider: 07/13/17 14:42 - History of Present Illness Narrative History of Present Illness (Text): 07/13/17 15:18 Patient is a 56 year old male, whose past medical history includes hypertension , diabetes, COPD, atrial fibrillation on anticoagulation, CHF, chronic leg wound , S/P AICD/pacemaker placement, s/p gastric bypass surgery, and s/p left leg thrombectomy, presents to the emergency department complaining of shortness of breath and intermittent confusion. These symptoms occur whenever he has to remove his oxygen. He also gets intermittent diffuse chest pain that is worse with deep inhalation. Patient reports he can only walk 4-5 feet before he gets short of breath, which only improves minimally while on oxygen. Patient is currently complaining of shortness of breath on room air. He currently denies any chest pain, nausea, vomiting, diarrhea, headache, focal weakness/numbness, palpitations. (Karla Spann) Past Medical History <Sdai Dias - Last Filed: 07/13/17 19:06> - Provider Review Nursing Documentation Reviewed: Yes - Travel History Have you recently traveled outside [place] w/in the past 3 mons?: No - Infectious Disease Hx of Infectious Diseases: None - Tetanus Immunization Tetanus Immunization: Unknown - Cardiac Hx Congestive Heart Failure: Yes Hx Hypertension: Yes - Pulmonary Hx Chronic Obstructive Pulmonary Disease (COPD): Yes - Neurological Hx Dizziness: Yes Other/Comment: numbness both thighs, pt stated "I was in a coma for 2 weeks from seroquel - HEENT Hx HEENT Disorder: Yes (eyeglasses, [place]) Other/Comment: eye sx for strabismus - Renal Hx Renal Disorder: No - Endocrine/Metabolic Hx Diabetes Mellitus Type 2: Yes - Hematological/Oncological Hx Blood Transfusions: No - Integumentary Hx Dermatological Disorder: Yes Other/Comment: ble slight redness discolorations dry skin 1.5cm x 1cm dry deep red scabb to outer lower left leg surrounded by red,dry skin, c/o severe pain - Musculoskeletal/Rheumatological Hx Falls: No - Gastrointestinal Hx Gastrointestinal Disorders: Yes (obese) Hx Gastroesophageal Reflux: Yes - Genitourinary/Gynecological Hx Genitourinary Disorders: No - Psychiatric Hx Anxiety: Yes Hx Bipolar Disorder: Yes Hx Depression: Yes Hx Substance Use: Yes Other/Comment: quit smoking, drinking, cocaine use 25 yrs ago - Past Surgical History Past Surgical History: Non-Contributing - Surgical History Hx Mastectomy: No - Anesthesia Hx Anesthesia Reactions: No Hx Malignant Hyperthermia: No - Suicidal Assessment Feels Threatened In Home Enviroment: No <Justin Spannram - Last Filed: 07/13/17 19:33> - Patient History Narrative Patient History: hypertension, diabetes, COPD, atrial fibrillation on anticoagulation, CHF, chronic leg wound, S/P AICD/pacemaker placement, s/p gastric bypass surgery, and s/p left leg thrombectomy (Karla Spann) Family/Social History - Physician Review Nursing Documentation Reviewed: Yes Family/Social History: Unknown Family HX Smoking Status: Former Smoker Hx Alcohol Use: Yes Hx Substance Use: Yes Hx Substance Use Treatment: Yes <Amine,Justinram - Last Filed: 07/13/17 19:33> Allergies/Home Meds <RanSadi arias - Last Filed: 07/13/17 19:06> <Amine,Justinram - Last Filed: 07/13/17 19:33> Allergies/Adverse Reactions: Allergies quetiapine fumarate [From Seroquel] Adverse Reaction (Verified 05/14/17 14:59) ANAPHYLAXIS wild berries Allergy (Intermediate, Uncoded 05/14/17 14:59) RASH Home Medications: Home Meds Medication Instructions Recorded Confirmed Acetaminophen/Oxycodone Hydr 1 tab PO DAILY PRN 05/14/17 07/12/17 [Percocet 10/325 mg Tab] Warfarin [Coumadin] 7 mg PO HS 05/14/17 07/12/17 Furosemide [Lasix] 80 mg PO Q12H 07/12/17 07/12/17 Review of Systems - Review of Systems Constitutional: Normal Eyes: Normal ENT: Normal Respiratory: SOB, Cough Cardiovascular: Chest Pain, Edema, Orthopnea Gastrointestinal: Normal. absent: Abdominal Pain Genitourinary Male: Normal Musculoskeletal: Normal Skin: Normal Neurological: Other (Disorientation, intermittent) Endocrine: Normal Hemo/Lymphatic: Normal Psychiatric: Normal <Karla Spann - Last Filed: 07/13/17 19:33> Physical Exam Vital Signs Reviewed: Yes (Hypoxic, on room air) Temperature: Afebrile Blood Pressure: Normal Pulse: Regular Respiratory Rate: Normal Appearance: Positive for: Well-Appearing, Non-Toxic, Comfortable Pain Distress: None Mental Status: Positive for: Alert and Oriented X 3 - Systems Exam Head: Present: Atraumatic, Normocephalic Pupils: Present: PERRL Extroacular Muscles: Present: EOMI Conjunctiva: Present: Normal Mouth: Present: Dry Neck: Present: Normal Range of Motion Respiratory/Chest: Present: Clear to Auscultation, Decreased Breath Sounds. No : Good Air Exchange, Wheezes, Rales Cardiovascular: Present: Regular Rate and Rhythm, Normal S1, S2 Abdomen: No: Tenderness, Distention Upper Extremity: Present: Normal Inspection. No: Cyanosis, Edema Lower Extremity: Present: Normal Inspection, Edema (2-3+ pitting to knees), NORMAL PULSES. No: CALF TENDERNESS Neurological: Present: GCS=15, CN II-XII Intact, Normal Sensory Function. No: Speech Normal Skin: Present: Warm, Dry, Normal Color Psychiatric: Present: Alert, Oriented x 3, Normal Insight, Normal Concentration <Karla Spann - Last Filed: 07/13/17 19:33> Vital Signs Temp Pulse Resp BP Pulse Ox 07/13/17 15:17 72 20 94 L 07/13/17 14:41 98.6 F 76 18 140/95 H 88 L Medical Decision Making <Sadi Dias - Last Filed: 07/13/17 19:06> <aKrla Spann - Last Filed: 07/13/17 19:33> ED Course and Treatment: 07/13/17 19:03 56 year old male presents to the emergency department for shortness of breath. In agreement with resident's note, which includes further details in HPI. Came up with plan and patient's treatment of care together. (Sadi Dias) 07/13/17 17:58 Impression: Dyspnea, hypoxia Differential Diagnosis included but are not limited to: COPD, CHF, (baseline vs acute), noncompliance Plan: -- Labs: CBC, CMP, Cardiac ISO, BNP, Urinalysis, PT/PTT -- ABG on RA then again after 1-2 hours on 2LNC -- CXR -- Reassess and disposition Prior Visits: Notes and results from previous visits were reviewed. Patient was last seen in the emergency department on 07/12/17 for shortness of breath and leg pain, both of which resolved during ER visit Progress Notes: -- ABG on RA shows hypoxia with mild lactic acidosis, likely from work of breathing -- Chest X-ray shows no obvious focal consolidation, gross cardiomegaly, poor inspiratory effort -- Labs pending -- Considering lactate and persistent symptoms, ordered Chest X-ray PA/LAT -- Patient remains mildly symptomatic on 2LNC, though slightly improved 07/13/17 19:29 -- Labs show no leukocytosis, troponin low; BNP mildly elevated, though similar to baseline; otherwise unremarkable -- Repeat Chest X-ray unremarkable -- Repeat ABG shows improvement in lactate level and resolution of hypoxia Discussed case with Dr. Robles, who recommends observation on Med/Surg for persistent dyspnea; recommends solumedrol and duonebs; Dr. Robles accepts patient to his service (Karla Spann) - Lab Interpretations Lab Results: 07/13/17 17:35 07/13/17 17:35 Lab Results 07/13/17 19:06: pCO2 41, pO2 89.0, HCO3 26.0, ABG pH 7.41, ABG Total CO2 27.3, ABG O2 Saturation 98.0, ABG Base Excess 1.2, ABG Potassium 3.5 L, Sodium 144.0, Chloride 111.0 H, Glucose 123 H, Lactate 1.4, FiO2 30.0, Arterial Blood Potassium 3.5 L 07/13/17 17:35: Sodium 145, Chloride 105, Potassium 4.0, Carbon Dioxide 29, Anion Gap 16, BUN 22 H, Creatinine 1.0, Est GFR ( Amer) > 60, Est GFR ( Non-Af Amer) > 60, Random Glucose 186 H, Calcium 9.2, Magnesium 1.7, Total Bilirubin 0.5, AST 22, ALT 27, Alkaline Phosphatase 66, Lactate Dehydrogenase 436, Total Creatine Kinase 59, Troponin I 0.03 D, NT-Pro-B Natriuret Pep 1370 H , Total Protein 7.1, Albumin 4.4, Globulin 2.7, Albumin/Globulin Ratio 1.6 07/13/17 17:35: PT 22.2 H, INR 1.92 H, APTT 34.6 07/13/17 17:35: WBC 9.6 D, RBC 4.62, Hgb 12.2 L, Hct 39.3 L, MCV 85.1, MCH 26.4 , MCHC 31.0, RDW 15.8 H, Plt Count 198, MPV 10.1, Gran % 75.3 H, Lymph % (Auto) 13.3 L, Menard % (Auto) 7.5 H, Eos % (Auto) 3.3, Baso % (Auto) 0.6, Gran # 7.23 H , Lymph # (Auto) 1.3, Menard # (Auto) 0.7 H, Eos # (Auto) 0.3, Baso # (Auto) 0.06 07/13/17 16:00: pCO2 39, pO2 59.0 L, HCO3 24.7, ABG pH 7.41, ABG Total CO2 25.9 , ABG O2 Saturation 93.3 L, ABG Base Excess 0.1, ABG Potassium 3.5 L, Sodium 142.0, Chloride 111.0 H, Glucose 234 H, Lactate 2.2 H, FiO2 21.0, Arterial Blood Potassium 3.5 L - RAD Interpretation Radiology Orders: 07/13/17 15:48 CHEST PORTABLE [RAD] Stat 07/13/17 17:54 CHEST TWO VIEWS (PA/LAT) [RAD] Stat - PA / OUTSIDE [employer]ER / Resident Statement / has reviewed & agrees with the documentation as recorded. / has examined the patient and agrees with the treatment plan. - Scribe Statement The provider has reviewed the documentation as recorded by the Scribe <Sadi Dias - Last Filed: 07/13/17 19:06> <Karla Spann - Last Filed: 07/13/17 19:33> - Scribe Statement Dominick Nguyen. All medical record entries made by the Scribe were at my direction and personally dictated by me. I have reviewed the chart and agree that the record accurately reflects my personal performance of the history, physical exam, medical decision making, and the department course for this patient. I have also personally directed, reviewed, and agree with the discharge instructions and disposition. (Sadi Dias) Disposition/Present on Arrival <Sadi Dias - Last Filed: 07/13/17 19:06> - Present on Arrival Any Indicators Present on Arrival: No History of DVT/PE: No History of Uncontrolled Diabetes: No Urinary Catheter: No History of Decub. Ulcer: No History Surgical Site Infection Following: None - Disposition Have Diagnosis and Disposition been Completed?: Yes Disposition Time: 19:33 Patient Plan: Observation <Karla Spann - Last Filed: 07/13/17 19:33> - Disposition Diagnosis: COPD (chronic obstructive pulmonary disease), Congestive heart failure (CHF), Dyspnea Disposition: HOSPITALIZED Condition: GUARDED Discharge Instructions (ExitCare): Heart Failure (ED) Referrals: Axel Villagomez MD [Primary Care Provider] - Follow up with primary Forms: [email or web address] ([place])
[2017-07-13 16:12] LABS: ARTERIAL BLOOD GAS HCO3 24.7 mmol/L (21-28); ARTERIAL BLOOD GAS O2 SAT 93.3 % (95-98); ARTERIAL BLOOD GAS PCO2 39 mm/Hg (35-45); ARTERIAL BLOOD GAS PH 7.41 (7.35-7.45); ARTERIAL BLOOD GAS TCO2 25.9 mmol.L (22-28)
--- NOTE | 2017-07-13 16:38 | RAD ---
HISTORY: h/o CHF and COPD COMPARISON: 05/30/2017 FINDINGS: LUNGS: No active pulmonary disease. PLEURA: No significant pleural effusion identified, no pneumothorax apparent. CARDIOVASCULAR: Massive cardiomegaly. Position/ configuration of pacemaker device: Satisfactory. OSSEOUS STRUCTURES: No significant abnormalities. VISUALIZED UPPER ABDOMEN: Normal. OTHER FINDINGS: None. IMPRESSION: Massive cardiomegaly without CHF. No active pulmonary disease.
[2017-07-13 17:52] LABS: BASO # 0.06 K/mm3 (0.0-2.0); BASO % 0.6 % (0.0-3.0); EOS # 0.3 (0.0-0.7); EOS % 3.3 % (1.5-5.0); GRAN # 7.23 (1.4-6.5); GRAN % 75.3 % (50.0-68.0); HEMOGLOBIN 12.2 g/dL (14.0-18.0); LYMPH # 1.3 (1.2-3.4); LYMPH % 13.3 % (22.0-35.0); MEAN CELL VOLUME 85.1 fl (80.0-105.0); MEAN CORPUSCULAR HEMOGLOBIN 26.4 pg (25.0-35.0); MEAN PLATELET VOLUME 10.1 fl (7.0-11.0); MONO # 0.7 (0.1-0.6); MONO % 7.5 % (1.0-6.0); RBC 4.62 10^6/uL (3.5-6.1); RED CELL DISTRIBUTION WIDTH 15.8 % (11.5-14.5); WHITE BLOOD COUNT 9.6 10^3/ul (4.5-11.0)
[2017-07-13 17:56] LABS: ALB/GLOB RATIO 1.6 (1.1-1.8); ALBUMIN 4.4 g/dL (3.0-4.8); ALT/SGPT 27 U/L (7-56); AST/SGOT 22 U/L (17-59); BLOOD UREA NITROGEN 22 mg/dL (7-21); CALCIUM 9.2 mg/dL (8.4-10.5); GFR AFRICAN-AMERICAN > 60; GFR NON-AFRICAN AMERICAN > 60
[2017-07-13 18:00] LABS: INR 1.92 (0.93-1.08); PARTIAL THROMBOPLASTIN TIME 34.6 Seconds (25.1-36.5); PROTHROMBIN TIME 22.2 SECONDS (9.4-12.5)
[2017-07-13 18:13] LABS: B-TYPE NATRIURETIC PEPTIDE 1370 pg/mL (0-450); TROPONIN I 0.03 ng/mL
--- NOTE | 2017-07-13 18:36 | CARD ---
APPROVED REPORT EKG Measurement Heart [id number] [place] P49 [id number] <Conclusion> Sinus rhythm with complete heart block and Wide QRS rhythm Right bundle branch block Cannot rule out Anterior infarct, age undetermined Abnormal ECG
[2017-07-13 19:15] LABS: ARTERIAL BLOOD GAS PCO2 41 mm/Hg (35-45); ARTERIAL BLOOD GAS PH 7.41 (7.35-7.45); ARTERIAL BLOOD GAS TCO2 27.3 mmol.L (22-28)
[2017-07-13] MEDS ORDERED: Albuterol-Ipratrop 3 mg / 0.5 (3 ml) UD IH PRN (19:33)
[2017-07-13] MEDS ORDERED: Oxycodone/Acetaminophen 5/325 mg Tab PO STA (19:33)
[2017-07-13] MEDS ORDERED: MethylPREDNISolone 40 mg Vial IVP STA (19:33)
[2017-07-13] MEDS: Albuterol-Ipratrop 3 mg / 0.5 (3 ml) UD IH SCH (20:03)
[2017-07-13 20:27] LABS: URINE BILIRUBIN NEGATIVE (NEGATIVE); URINE BLOOD NEGATIVE (NEGATIVE); URINE GLUCOSE (UA) NEGATIVE (NEGATIVE); URINE LEUKOCYTE ESTERASE NEGATIVE Leu/uL (NEGATIVE); URINE PROTEIN NEGATIVE mg/dL (<30 mg/dL); URINE UROBILINOGEN 0.2 E.U./dL (<1 E.U./dL)
[2017-07-13 20:28] LABS: URINE APPEARANCE CLEAR (CLEAR); URINE COLOR LIGHT YELLOW (YELLOW)
[2017-07-13 20:33] LABS: VENOUS BLOOD GAS BASE EXCESS 3.2 mmol/L (0.0-2.0); VENOUS BLOOD GAS PO2 42 mm/Hg (30-55); VENOUS BLOOD PH 7.33 (7.32-7.43)
[2017-07-14] MEDS: Albuterol-Ipratrop 3 mg / 0.5 (3 ml) UD IH SCH ×4 (01:21→22:20)
[2017-07-14] MEDS: Insulin Detemir 100 units/ml Vial (Levemir) SC SCH ×2 (08:19→17:21)
[2017-07-14] MEDS: Insulin Reg-HIGH-Coverage SC SCH ×4 (08:19→21:41)
--- NOTE | 2017-07-14 09:29 | RAD ---
HISTORY: short of breath COMPARISON: Yesterday TECHNIQUE: Chest PA and lateral FINDINGS: LUNGS: No new infiltrate is seen. Left pacemaker is unchanged. Trachea is midline. Patient body habitus limits evaluation. PLEURA: No significant pleural effusion identified. No pneumothorax apparent. CARDIOVASCULAR: Unchanged OSSEOUS STRUCTURES: No significant abnormalities. VISUALIZED UPPER ABDOMEN: Normal. OTHER FINDINGS: None. IMPRESSION: Cardiomegaly. No evidence of new infiltrate.
[2017-07-14] MEDS: metOLazone 5 MG TAB PO SCH (10:03)
--- NOTE | 2017-07-14 11:05 | HP ---
HISTORY OF PRESENT ILLNESS: This is a 56-year-old male, who is coming into the hospital, complaining of not feeling well, shortness of breath, confusion at times. He says he has difficulty with exertion. Minimal exertion causes him to have shortness of breath. He has a past medical history of diabetes type 2, hypertension, COPD, atrial fibrillation on anticoagulation, AICD/pacemaker and gastric bypass. He also has peripheral arterial disease and had left leg thrombectomy done. The patient says he has not been able walk more than 5 feet for the past few days. He was in the Emergency Room few days ago and then was discharged. He came into the hospital after he called my office to ask for guidance regarding his shortness of breath. The patient has no complaints of any chest pain, no dysuria or frequency, no nocturia. He says he has been taking his diuretic therapy. He is on Lasix twice a day at 80 mg. ALLERGIES: TO QUETIAPINE AND FUMARATE. HOME MEDICATION: Has been reviewed on the [facility]. PAST MEDICAL HISTORY: 1. COPD. 2. CHF secondary to systolic dysfunction. 3. Diabetes type 2. 4. Hypertension. 5. Peripheral arterial disease. 6. Atrial fibrillation, on Coumadin. 7. Pacemaker/defibrillator. 8. Right sepsis secondary to enterococcus. PAST SURGICAL HISTORY: 1. Left leg thrombosis with thrombectomy. 2. Gastric bypass. SOCIAL HISTORY: He quit smoking about 25 years ago. He denies current drug use he did. Has a history of cocaine use and alcohol. FAMILY HISTORY: Noncontributory. PHYSICAL EXAMINATION: VITAL SIGNS: Temperature is 97.7, pulse is 78, blood pressure 121/68, respirations 20, O2 saturation 93%, height is 5 feet 8, weight is 288 pounds, BMI is 43. GENERAL: The patient lying in bed, uncomfortable, and in no acute distress. HEENT: Atraumatic and normocephalic. Anicteric sclerae. Moist mucosa. [place] conjunctivae. No oral lesions. NECK: No JVD, anterior and posterior adenopathy, thyromegaly, or bruits. CARDIOVASCULAR: S1 and S2 regular. No murmur, rubs, or gallop. LUNGS: Clear to auscultation bilaterally. No wheezes, rales, or rhonchi. ABDOMEN: Bowel sounds are positive. Soft, nontender and nondistended. No hepatosplenomegaly. No rebound and no guarding. EXTREMITIES: In the lower extremity, there is 2+ edema bilaterally. NEUROLOGIC: No facial asymmetry. Tongue is midline. No uvula deviation. Power is 5/5 upper extremity and lower extremity. Sensation intact in upper extremity and lower extremity. PSYCHIATRIC: He is awake, alert and oriented x3. No anxiety or depression. He has normal affect. GENITOURINARY: No CVA tenderness. VASCULAR: 2+ pulses in the carotid pulses and pedal pulses. SKIN: No erythema or nodules SPINE: Shows normal curvature. LABORATORY DATA: They have been reviewed. White count of 9.6, hemoglobin 12.2. Troponin is 0.03, creatinine is 1. His proBNP is 1370. His chest x-ray done. It shows massive cardiomegaly without CHF. EKG shows sinus rhythm with widened QRS. ASSESSMENT: 1. Acute congestive heart failure secondary to systolic dysfunction. 2. Acute chronic obstructive pulmonary disease. 3. Diabetes type 2. 4. Hypertension. 5. Peripheral arterial disease. 6. Atrial fibrillation, on Coumadin. 7. Pacemaker/defibrillator. 8. Gastric bypass. 9. Restless leg syndrome. 10. Morbid obesity with body mass index of 43. PLAN: The patient is currently comfortable. He is going to be admitted to the hospital. The patient is going to be on IV diuretic therapy. I did speak to Dr. Rajan regarding the case. The patient is going to continue with Amaryl for his diabetes. He is on Cardizem for his atrial fibrillation and hypertension. The patient is on Coumadin for his anticoagulation. He is on metformin for his diabetes, this will be continued. He is on Lasix daily. The patient is on gabapentin for neuropathy. He was given Solu-Medrol yesterday. He is on DuoNeb treatments. I will add Zaroxolyn to the patient's regimen. Axel Villagomez MD
--- NOTE | 2017-07-14 18:55 | PN ---
DATE: 07/14/2017 REASON FOR THE CONSULTATION AND FOLLOWUP: Cardiac evaluation, decompensated congestive heart failure. BRIEF CLINICAL HISTORY: A 56-year-old male, morbidly obese with past medical history of diabetes; hypertension; hyperlipidemia; paroxysmal atrial fibrillation; status post radiofrequency ablation; status post AICD; status post gastric bypass in the past; status post cardiac catheterization 3; nonobstructive coronary artery disease; status post acute lower limb ischemia, left; status post thrombectomy; status post DVT on the right leg, came in with complaint of swelling of the leg for couple of days and shortness of breath, very noncompliance with the medication, used to take stop medications because of the financial issues. PAST MEDICAL HISTORY: As mentioned, history of nonobstructive coronary artery disease, morbid obesity, diabetes, hypertension, congestive heart failure , ejection fraction 45%, nonischemic cardiomyopathy , status post cardiac catheterization, status post AICD. PAST SURGICAL HISTORY: Significant for gastric bypass, status post AICD, history of thrombectomy from the left lower extremities, history of DVT, history of multiple cardiac at least 2 to 3 nonobstructive coronary artery disease. PREVIOUS CARDIAC WORKUP: 1. History of cardiac catheterization 2 to 3 times: One from radius, two from femoral approach, nonobstructive coronary artery disease. Last cath at [facility] in 2014, nonobstructive coronary artery disease, EDP within the range of 30, status post AICD placement. Last echo on 08/15/2016, shows mildly decreased LV function, ejection fraction of 25%, moderately dilated RV, RV function decreased. Last MUGA scan done in [facility], ejection fraction 43%. After that, the patient had a CORA, because of blood culture was growing positive, it ruled out endocarditis, dated 06/04/2017, that showed mild LVH, ejection fraction 25% to 30%, global hypokinesis, normal RV thickness, dilated RV function reduced, moderate mitral regurgitation, [id number] tricuspid regurgitation, and no vegetation noted. CURRENT MEDICATION: The patient at home was taking trazodone, Requip, Cardizem 30 mg, Coumadin, Singular, Glucophage, Lisinopril, insulin, gabapentin, Lasix. REVIEW OF SYSTEMS: As per HPI. PHYSICAL EXAMINATION: As follows: VITAL SIGNS: Temperature afebrile, heart rate 69, blood pressure 151/91. HEENT: PERRLA. Extraocular muscles intact. NECK: Supple. No carotid bruit or thyromegaly. CHEST: Clear to auscultation. HEART: S1 and S2, regular. ABDOMEN: Soft. EXTREMITIES: Clubbing and cyanosis negative. LABORATORY DATA: Blood workup as follows: WBC 9.6, hemoglobin 12.2, hematocrit 39.3, platelet count 198. Chemistry showed sodium 145, potassium 4, chloride 105, carbon dioxide 29, anion gap of 16, BUN 22, creatinine 1. BNP 1370. IMPRESSION: Gross fluid overload; decompensated congestive heart failure; diabetes; hypertension; hyperlipidemia; morbid obesity; paroxysmal atrial fibrillation, on anticoagulation; status post automated implantable cardioverter-defibrillator; status post radiofrequency ablation; subtherapeutic INR, INR is 1.92, nonischemic cardiomyopathy; status post gastric bypass; peripheral arterial disease; status post left thrombectomy from left lower extremity; sepsis; deep venous thrombosis of right lower extremity. RECOMMENDATION: To continue anticoagulation, continue diuretics, continue Cardizem, compliance with the medication. The patient does not take medication at home because of the financial issue. weight reduction, modified lifestyle, modified risk factor for coronary artery disease and control of the weight and increase Lasix. We will continue Cardizem 30 mg b.i.d., continue Coumadin, goal is to keep INR between 2 to 2.5. Lasix given for 80 b.i.d. and we will add Zaroxolyn. We will follow with you. We will give 80 mg of Lasix now and then change to 40 t.i.d. for 2 days, followed by 80 p.o. b.i.d. for Sunday. Repeat the blood workup in the morning. Tia Rajan MD
[2017-07-14] MEDS ORDERED: Oxycodone/Acetaminophen 10/325 mg Tab PO PRN (22:33)
[2017-07-14] MEDS: Oxycodone/Acetaminophen 10/325 mg Tab PO PRN (23:07)
--- NOTE | 2017-07-15 03:05 | CON ---
DATE: PULMONARY CONSULTATION REFERRING PHYSICIAN: Dr. Axel Villagomez. REASON FOR CONSULTATION: Chronic obstructive lung disease, obstructive sleep apnea syndrome. HISTORY OF PRESENT ILLNESS: This is a 56-year-old gentleman, which well known to me from previous admission, has a history of morbid obesity; cardiomyopathy; decreased LV function; coronary artery disease, requiring stent; recurrent atrial fibrillation, requiring ablation and AICD; pulmonary hypertension; decreased LV function; history of chronic lung disease; obstructive sleep apnea syndrome, noncompliant with the CPAP/BiPAP; recurrent thromboembolic phenomena in the past with nonhealing left lower extremity ulcer; had been on almost 4 weeks of antibiotics secondary to infection, now comes in with orthopnea, shortness of breath, weight gain, and leg swelling, left lower extremity nonhealing ulcer is a little getting better. PAST MEDICAL HISTORY: As per history of present illness. Also has a history of bipolar disorder, depression, substance abuse in the remote past, diabetes and arthritis. FAMILY HISTORY: No significant cardiopulmonary disease reported. SOCIAL HISTORY: Stopped smoking and drinking a few years ago, also stopped illicit drugs many years ago. ALLERGIES: QUETIAPINE, DEVELOPING ANAPHYLAXIS, ALSO ALLERGY TO BERRIES. MEDICATIONS: He is on Amaryl 4 mg daily, Ativan 1 mg twice a day p.r.n., Cardizem 30 mg twice a day, Coumadin 7 mg will be given tonight, trazodone 150 mg at bedtime, DuoNeb every 2 hours p.r.n. and every 6 hours [id number], metformin 1000 mg twice a day, insulin coverage, Lasix 40 mg every 8 hourly, also on Levemir 30 units subcu, Neurontin 300 mg twice a day, Percocet 10/325 one tab every 6 hours p.r.n., Requip 0.5 mg at bedtime, Singulair 10 mg daily, Zaroxolyn 5 mg daily, Zestril 2.5 mg daily. REVIEW OF SYSTEMS: No headache, no rhinitis. Has orthopnea, shortness of breath. No chest pain. No nausea, no vomiting. No diarrhea. No significant leg swelling. Still have a left lower extremity nonhealing ulcer. PHYSICAL EXAMINATION: GENERAL: Sitting up in a chair. VITAL SIGNS: Temperature is 98, heart rate 70, respiratory is 20, blood pressure 120/69, pulse ox of 99% on nasal cannula. HEENT: Moist mucous membrane. Crowded airway. Mallampati score is 4. NECK: Supple. No JVD. LUNGS: Have a prolonged expiratory phase with few rhonchi. HEART: S1 and S2. ABDOMEN: Soft, nontender, nondistended. EXTREMITIES: Does have edema of both lower extremities. Left lower extremity has nonhealing ulcer. NEUROLOGIC: Awake and alert. Follows simple command. LABORATORY DATA: Shows hemoglobin 12.2, hematocrit 39.3, WBC 9.6, platelet count is 198. INR 1.92. PTT 35. Blood sugar 169. Sodium 145, potassium 4.0, chloride 105, bicarbonate 29, BUN 22, creatinine 1.0, glucose 186, calcium 9.2, AST 22, ALT 27, alk phos is 66. Troponin 0.03. ProBNP 1370. Albumin 4.5. Chest x-ray done in ER shows cardiomegaly. No evidence of infiltrate. IMPRESSION AND PLAN: Cardiomyopathy; atrial fibrillation; history of ablation therapy; cardioversion; has automated implantable cardioverter defibrillator; pulmonary hypertension; chronic obstructive lung disease; sleep apnea syndrome; hypertension; obesity; history of thromboembolic disease, requiring thrombectomy; peripheral vascular disease; nonhealing ulcer of the left leg, status post bacteremia, just finished 3 to 4 weeks of IV antibiotics. Pulmonary point of view, doing okay. I had a long discussion with the patient about sleep apnea and its consequence, effects on the cardiac , willing to try bilevel positive airway pressure tonight. We will place on continuous positive airway pressure 30% oxygen while sleeping. 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 Thank you and we will follow with you. Tia Godinez MD
[2017-07-15] MEDS: Albuterol-Ipratrop 3 mg / 0.5 (3 ml) UD IH SCH ×4 (03:45→22:10)
[2017-07-15 07:55] LABS: BLOOD UREA NITROGEN 35 mg/dL (7-21); CALCIUM 8.7 mg/dL (8.4-10.5); GFR AFRICAN-AMERICAN > 60; GFR NON-AFRICAN AMERICAN 57
--- NOTE | 2017-07-15 08:42 | PN ---
DATE: 07/15/2017 SUBJECTIVE: The patient has no complaints of any chest pain. No shortness of breath. No headaches or dizziness. PHYSICAL EXAMINATION: VITAL SIGNS: Temperature is 98.2, pulse of 76, blood pressure is 137/75, respirations 18. GENERAL: The patient is lying in bed, flat, comfortable. HEENT: No oral lesion. Anicteric sclerae. Moist mucosa. NECK: No JVD, adenopathy, or thyromegaly. CARDIOVASCULAR: S1 and S2, regular. No murmurs, rubs, or gallops. LUNGS: Clear to auscultation bilaterally. No wheeze, rales, or rhonchi. ABDOMEN: Bowel sounds are positive, soft, nontender and nondistended. EXTREMITIES: No cyanosis, clubbing. In the lower extremity, 1+ edema. ASSESSMENT: 1. Acute congestive heart failure secondary to systolic dysfunction. 2. Lower extremity edema. 3. Acute chronic obstructive pulmonary disease. 4. Diabetes type 2. 5. Hypertension. 6. Peripheral arterial disease. 7. Atrial fibrillation, on Coumadin. 8. Pacemaker/defibrillator. 9. Gastric bypass. 10. Restless legs syndrome. 11. Morbid obesity with a body mass index of 43. PLAN: The patient is currently on oxygen. He is going to be on Amaryl for his diabetes. He is on lorazepam as needed for his anxiety. He is going to continue with Coumadin for his anticoagulation. The patient is on trazodone for his anxiety. He is on metformin for his diabetes. He is on Lasix 40 three times a day along with metolazone. The patient is going to be on Zestril for his CHF as well as for his hypertension. He gets CPAP. He has been followed by Cardiology and Pulmonary. Axel Villagomez MD
[2017-07-15] MEDS: metOLazone 5 MG TAB PO SCH (10:00)
[2017-07-15] MEDS: Insulin Reg-HIGH-Coverage SC SCH ×4 (10:01→22:20)
[2017-07-15] MEDS: Insulin Detemir 100 units/ml Vial (Levemir) SC SCH ×2 (10:01→17:36)
--- NOTE | 2017-07-15 11:36 | PN ---
DATE: 07/15/2017 REASON FOR THE CONSULTATION: Followup cardiac evaluation, acute decompensated congestive heart failure, acute on chronic secondary to systolic dysfunction. SUBJECTIVE: The patient feels better. Denies any chest pain, shortness of breath, any palpitation. OBJECTIVE: GENERAL: Not in any apparent distress, sitting on the chair. VITAL SIGNS: Temperature afebrile, heart rate 67, blood pressure 114/71. HEENT: PERRLA. Extraocular muscles intact. NECK: Supple. No carotid bruit. No thyromegaly. CHEST: Clear to auscultation. HEART: S1 and S2 regular. ABDOMEN: Soft. EXTREMITIES: Clubbing and cyanosis negative. LABORATORY DATA: Blood workup as follows; WBC 9.6, hemoglobin 12.2, hematocrit 39.3, platelet count 198. Chemistry shows sodium 142, potassium 3.8, chloride 99, carbon dioxide 31, anion gap of 17, BUN 35, creatinine 1.3. IMPRESSION: Acute decompensated congestive heart failure, acute on chronic secondary to systolic dysfunction; gross fluid overload; cardiomyopathy, nonischemic, status post cardiac catheterization; history of paroxysmal atrial fibrillation, status post radiofrequency ablation; morbid obesity; diabetes; hypertension; hyperlipidemia; peripheral arterial disease, status post left arterial occlusion of lower extremity, status post thrombectomy; status post deep venous thrombosis of right leg. RECOMMENDATION: Continue IV Lasix. Continue diuretics. Monitor electrolytes closely. Supplement as needed. We will add on spironolactone twice a day. Continue Lasix 40 b.i.d. Possible discharge in a day or two. Discussed with the patient. We will follow with you. Follow up repeat labs in the morning. We will repeat the labs in the morning. Thank you, Dr. Villagomez for providing us the opportunity in taking care of the patient, Pete Johnson. We will follow with you. Tia Rajan MD
--- NOTE | 2017-07-15 16:00 | PN ---
DATE: 07/15/2017 PULMONARY PROGRESS NOTE REFERRING PHYSICIAN: Axel Villagomez MD. SUBJECTIVE: The patient is sitting on side of the bed. Night was unremarkable. Tolerated CPAP about 5 hours or so. No headache. No rhinitis. Cough is better. Orthopnea better. No dysuria. No polyuria. Leg swelling is little improved. OBJECTIVE: GENERAL: In no acute distress. VITAL SIGNS: Temp is 98, heart rate is 67, respiratory rate is 20, blood pressure 102/68, pulse ox 92% on room air. HEENT: Moist mucous membrane. Crowded airway. Mallampati score is 4. NECK: Supple. No JVD. LUNGS: Have a fair airflow with rhonchi. HEART: S1 and S2. ABDOMEN: Soft and nontender. No organomegaly. EXTREMITIES: Decreased edema. NEUROLOGICAL: Awake and alert. Follows simple command. LABORATORY DATA: Shows Sodium 142, potassium 3.8, chloride 99, bicarbonate 31, BUN 35, creatinine 1.3, glucose 153, calcium 8.7, phosphorus 5.2, magnesium 1.7. MEDICATIONS: He is on Aldactone 25 mg twice a day, Amaryl 4 mg daily, lorazepam 1 mg twice a day p.r.n., Coumadin 7 mg will be given tonight, trazodone 150 mg daily, DuoNeb every 6 hours [id number], metformin 1000 mg twice a day, Lasix 40 mg IV every 8 hours, Levemir 30 units subcu, Neurontin 300 mg twice a day, Percocet 10/325 one tab every 6 hours p.r.n., Requip 0.5 mg at bedtime, Singulair 10 mg daily, Zaroxolyn 5 mg daily, Zestril 2.5 mg daily. IMPRESSION AND PLAN: Cardiomyopathy, atrial fibrillation, history of ablation therapy, cardioversion requiring automated implantable cardioverter defibrillator, hypertension, chronic obstructive lung disease, sleep apnea syndrome, obesity, history of thromboembolic disease requiring thrombectomy in the past, peripheral vascular disease, nonhealing ulcer of the left leg, history of bacteremia. Pulmonary point of view, doing much better. Continue bilevel positive airway pressure while sleeping. Keep head at 45 degrees. May have to repeat sleep study upon discharge as outpatient to requalify him for bilevel positive airway pressure. At this time, he is willing to try and continue diuretics, afterload reducers, beta rahat, anticoagulation. Followup plans in the morning. Thank you and we will follow with you. Tia Godinez MD
[2017-07-15] MEDS: Oxycodone/Acetaminophen 10/325 mg Tab PO PRN (22:21)
[2017-07-16] MEDS: Albuterol-Ipratrop 3 mg / 0.5 (3 ml) UD IH SCH ×2 (03:41→07:38)
[2017-07-16 08:07] LABS: BASO # 0.07 K/mm3 (0.0-2.0); BASO % 0.6 % (0.0-3.0); EOS # 0.4 (0.0-0.7); EOS % 3.6 % (1.5-5.0); GRAN # 7.21 (1.4-6.5); GRAN % 66.4 % (50.0-68.0); HEMOGLOBIN 12.6 g/dL (14.0-18.0); LYMPH % 18.8 % (22.0-35.0); MEAN CORPUSCULAR HEMOGLOBIN 25.9 pg (25.0-35.0); MEAN CORPUSCULAR HGB CONC 30.9 g/dl (31.0-37.0); MEAN PLATELET VOLUME 10.8 fl (7.0-11.0); MONO # 1.2 (0.1-0.6); MONO % 10.6 % (1.0-6.0); RBC 4.86 10^6/uL (3.5-6.1); RED CELL DISTRIBUTION WIDTH 15.6 % (11.5-14.5); WHITE BLOOD COUNT 10.9 10^3/ul (4.5-11.0)
[2017-07-16 08:17] LABS: BLOOD UREA NITROGEN 37 mg/dL (7-21); GFR AFRICAN-AMERICAN > 60; GFR NON-AFRICAN AMERICAN > 60
[2017-07-16 08:22] VITALS: RESP 20; TEMP 98.4; O2SAT 98
[2017-07-16] MEDS: Insulin Reg-HIGH-Coverage SC SCH (08:22)
[2017-07-16] MEDS: metOLazone 5 MG TAB PO SCH (10:09)
[2017-07-16 10:23] VITALS: BP 117/82; PULSE 50
[2017-07-16] MEDS: Insulin Detemir 100 units/ml Vial (Levemir) SC SCH (10:40)
--- NOTE | 2017-07-16 11:07 | DS ---
HISTORY OF PRESENT ILLNESS: The patient has no complaints of any chest pain. No shortness of breath. He is feeling better. He says his oxygen level is better. He is not confused. PHYSICAL EXAMINATION: VITAL SIGNS: Temperature is 98.4, pulse is 76, blood pressure is 102/65, respirations 20. GENERAL: The patient is lying in bed, flat, comfortable. HEENT: No oral lesion. Anicteric sclerae. Moist mucosa. NECK: No JVD, adenopathy, or thyromegaly. CARDIOVASCULAR: S1 and S2, regular. No murmurs, rubs, or gallops. LUNGS: Clear to auscultation bilaterally. No wheeze, rales, or rhonchi. ABDOMEN: Bowel sounds are positive, soft, nontender and nondistended. EXTREMITIES: No cyanosis, clubbing. Right lower extremity, 1+ edema. ASSESSMENT: 1. Acute congestive heart failure secondary to systolic dysfunction. 2. Lower extremity edema. 3. Acute chronic obstructive pulmonary disease. 4. Diabetes type 2. 5. Hypertension. 6. Peripheral arterial disease. 7. Atrial fibrillation, on Coumadin. 8. Pacemaker/defibrillator. 9. Gastric bypass. 10. Restless legs syndrome. 11. Morbid obesity with a body mass index of 43. PLAN: The patient is currently on Coumadin, he is going to continue. He is going to be on his lorazepam. He is on Amaryl for his diabetes. He is receiving metformin for his diabetes as well. He is on Levemir. The patient is on Neurontin for neuropathy. He is on his Requip for his restless legs syndrome. The patient is on Zestril as well. He is on metolazone. I will give him metolazone as an outpatient for a short course to help with his lower extremity edema. CONDITION: Stable. ACTIVITIES: Increase as tolerated. Axel Villagomez MD
--- NOTE | 2017-07-16 23:13 | PN ---
DATE: 07/16/2017 PULMONARY PROGRESS NOTE REFERRING PHYSICIAN: Dr. Axel Villagomez. SUBJECTIVE: Patient is sitting up in a chair. Night was unremarkable, tolerated CPAP well. Feels better with the CPAP. No nausea, no vomiting, no diarrhea. Decreased leg swelling. OBJECTIVE: GENERAL: In no acute distress. VITAL SIGNS: Temperature is 98, heart rate is 50, respiratory rate is 20, blood pressure 117/82, pulse ox of 98% on 2 liters nasal cannula. HEENT: Moist mucous membrane. Crowded airway. NECK: Supple. No JVD. LUNGS: Has fair airflow, no rhonchi. HEART: S1 and S2. ABDOMEN: Soft, nontender. No organomegaly. EXTREMITIES: Does have edema, but decreased . NEUROLOGIC: Awake and alert, follows simple command. MEDICATIONS: Reviewed. No new change in medication reported. LABORATORY DATA: Shows hemoglobin 12.6, hematocrit 40.8, WBC 10.9, platelet is 207. Sodium 140, potassium 3.6, chloride 94, bicarbonate 34, BUN 77, creatinine 1.1, glucose 119, calcium 9.0, phosphorus 5.4, magnesium is 1.6. IMPRESSION AND PLAN: Chronic obstructive lung disease, obstructive sleep apnea syndrome, cardiomyopathy, history of atrial fibrillation; history of automated implantable cardioverter defibrillator, diabetes; thromboembolic disease, requiring thrombectomy in the past; nonhealing ulcer on the left lower extremity; discharge planning in the progress. Patient need outpatient repeat sleep study to qualify him for continuous positive airway pressure. We will schedule him for separate study continuous positive airway pressure, has severe cardiomyopathy with cardiac arrhythmias, continue diuretics. Thank you and we will follow as an outpatient. Tia Godinez MD
== END 2017-07-16 10:47 | disposition home or self-care (01) | DRG 292 ==
LOC: ED 14:32 → ERH 19:37 → 5RSO 21:21 → OBSVTOIN 07-14 08:18 → 5RSO 07-15 08:06
PROVIDERS: ADMIT Internal Medicine Nephrology; ATTEND Internal Medicine Nephrology
DX: I11.0 Hypertensive heart disease with heart failure (principal); I50.23 Acute on chronic systolic (congestive) heart failure; Z68.41 Body mass index [BMI] 40.0-44.9, adult; L97.929 Non-pressure chronic ulcer of unspecified part of left lower leg with unspecified severity; J44.9 Chronic obstructive pulmonary disease, unspecified; E66.01 Morbid (severe) obesity due to excess calories; E11.51 Type 2 diabetes mellitus with diabetic peripheral angiopathy without gangrene; G25.81 Restless legs syndrome; I42.9 Cardiomyopathy, unspecified; I27.20 Pulmonary hypertension, unspecified; I25.10 Atherosclerotic heart disease of native coronary artery without angina pectoris; E11.40 Type 2 diabetes mellitus with diabetic neuropathy, unspecified; G47.33 Obstructive sleep apnea (adult) (pediatric); I48.0 Paroxysmal atrial fibrillation; E11.622 Type 2 diabetes mellitus with other skin ulcer; E78.5 Hyperlipidemia, unspecified; F31.9 Bipolar disorder, unspecified; Z79.01 Long term (current) use of anticoagulants; Z91.19 Patient's noncompliance with other medical treatment and regimen; Z91.14 Patient's other noncompliance with medication regimen; Z86.718 Personal history of other venous thrombosis and embolism; Z98.84 Bariatric surgery status; Z95.810 Presence of automatic (implantable) cardiac defibrillator; Z87.891 Personal history of nicotine dependence

== ENCOUNTER 2017-08-01 09:51 | Inpatient (IN) | payer MEDICARE ==
[2017-08-01 09:51] VITALS: PULSE 74
[2017-08-01 09:59] VITALS: BMI 33.4
[2017-08-01] MEDS ORDERED: Levalbuterol 1.25 MG/3 ML Inhal Soln UD IH STA ×2 (10:17→11:03)
--- NOTE | 2017-08-01 11:02 | RAD ---
HISTORY: Cough varghese/SOB COMPARISON: Comparison chest 07/13/2017 FINDINGS: LUNGS: There is mild diffuse increased central pulmonary vascularity suggesting developing pulmonary edema/ CHF. Suspect minor left basilar atelectasis. PLEURA: No significant pleural effusion identified, no pneumothorax apparent. CARDIOVASCULAR: Heart is enlarged. No change multi lead pacemaker/ defibrillator. OSSEOUS STRUCTURES: No significant abnormalities. VISUALIZED UPPER ABDOMEN: Normal. OTHER FINDINGS: None. IMPRESSION: There is mild diffuse increased central pulmonary vascularity suggesting developing pulmonary edema/ CHF. Suspect minor left basilar atelectasis.
[2017-08-01] MEDS ORDERED: Lidocaine 5% Patch TD STA (11:04)
[2017-08-01] MEDS ORDERED: Lidocaine 5% Patch TD ONE (11:15)
[2017-08-01 11:53] LABS: BASO # 0.03 K/mm3 (0.0-2.0); BASO % 0.2 % (0.0-3.0); EOS # 0.2 (0.0-0.7); EOS % 1.1 % (1.5-5.0); GRAN # 11.78 (1.4-6.5); GRAN % 85.6 % (50.0-68.0); HEMOGLOBIN 12.8 g/dL (14.0-18.0); LYMPH # 1.2 (1.2-3.4); LYMPH % 8.5 % (22.0-35.0); MEAN CELL VOLUME 82.2 fl (80.0-105.0); MEAN CORPUSCULAR HEMOGLOBIN 26.5 pg (25.0-35.0); MEAN CORPUSCULAR HGB CONC 32.2 g/dl (31.0-37.0); MEAN PLATELET VOLUME 10.7 fl (7.0-11.0); MONO # 0.6 (0.1-0.6); MONO % 4.6 % (1.0-6.0); RBC 4.83 10^6/uL (3.5-6.1); RED CELL DISTRIBUTION WIDTH 15.8 % (11.5-14.5); WHITE BLOOD COUNT 13.8 10^3/ul (4.5-11.0)
[2017-08-01 11:54] LABS: VENOUS BLOOD GAS BASE EXCESS 2.2 mmol/L (0.0-2.0); VENOUS BLOOD GAS PO2 55 mm/Hg (30-55); VENOUS BLOOD PH 7.39 (7.32-7.43)
[2017-08-01 12:21] LABS: INR 2.83 (0.93-1.08); PROTHROMBIN TIME 33.2 SECONDS (9.4-12.5)
[2017-08-01 12:22] LABS: PARTIAL THROMBOPLASTIN TIME 31.2 Seconds (25.1-36.5)
[2017-08-01 12:44] LABS: ALB/GLOB RATIO 1.4 (1.1-1.8); ALT/SGPT 24 U/L (7-56); AST/SGOT 24 U/L (17-59); BLOOD UREA NITROGEN 28 mg/dL (7-21); GFR AFRICAN-AMERICAN > 60; GFR NON-AFRICAN AMERICAN > 60
[2017-08-01] MEDS ORDERED: cefTRIAXone 1 gm 1 GM/100 ML BAG IVPB STA (12:46)
[2017-08-01] MEDS ORDERED: Azithromycin 500MG/NS 250ml 500 MG/250 ML BAG IVPB STA (12:46)
[2017-08-01 12:47] LABS: B-TYPE NATRIURETIC PEPTIDE 1390 pg/mL (0-450); TROPONIN I 0.04 ng/mL
--- NOTE | 2017-08-01 12:52 | ED PDOC ---
Arrival/HPI - General Chief Complaint: Shortness Of Breath Time Seen by Provider: 08/01/17 10:02 Historian: Patient - History of Present Illness Narrative History of Present Illness (Text): 08/01/17 13:07 57yo male with Past medical history of A fib, COPD, CHF, CAD, pacemaker, Diabetes, depression, bipolar, anxiety who present with complaint of nonproductive cough, burning chest pain and shortness of breath x 2days. Notes that he is complaint with his medications. He states he uses oxygen at home and used hs inhaler yesterday without relieve. He denies fever, chills, diaphoresis , calf pain, nausea, vomiting, recent travel/surgery, any other compliant. 08/01/17 13:11 Past Medical History - Provider Review Nursing Documentation Reviewed: Yes - Infectious Disease Hx of Infectious Diseases: None - Tetanus Immunization Tetanus Immunization: Unknown - Cardiac Hx Congestive Heart Failure: Yes Hx Hypertension: Yes - Pulmonary Hx Chronic Obstructive Pulmonary Disease (COPD): Yes - Neurological Hx Dizziness: Yes Other/Comment: numbness both thighs, pt stated "I was in a coma for 2 weeks from seroquel - HEENT Hx HEENT Disorder: Yes (eyeglasses, [place] [employer]) Other/Comment: eye sx for strabismus - Renal Hx Renal Disorder: No - Endocrine/Metabolic Hx Diabetes Mellitus Type 2: Yes - Hematological/Oncological Hx Cancer: No - Integumentary Hx Dermatological Disorder: Yes Other/Comment: ble slight redness discolorations dry skin 1.5cm x 1cm dry deep red scabb to outer lower left leg surrounded by red,dry skin, c/o severe pain - Musculoskeletal/Rheumatological Hx Falls: No - Gastrointestinal Hx Gastrointestinal Disorders: Yes (obese) Hx Gastroesophageal Reflux: Yes - Genitourinary/Gynecological Hx Genitourinary Disorders: No - Psychiatric Hx Anxiety: Yes Hx Bipolar Disorder: Yes Hx Depression: Yes Hx Substance Use: No Other/Comment: quit smoking, drinking, cocaine use 25 yrs ago - Past Surgical History Past Surgical History: Non-Contributing - Surgical History Hx Mastectomy: No - Anesthesia Hx Anesthesia Reactions: No Hx Malignant Hyperthermia: No - Suicidal Assessment Feels Threatened In Home Enviroment: No Family/Social History - Physician Review Nursing Documentation Reviewed: Yes Family/Social History: Unknown Family HX Smoking Status: Former Smoker Hx Alcohol Use: No Hx Substance Use: No Hx Substance Use Treatment: Yes Allergies/Home Meds Allergies/Adverse Reactions: Allergies quetiapine fumarate [From Seroquel] Adverse Reaction (Verified 08/01/17 16:48) ANAPHYLAXIS wild berries Allergy (Intermediate, Uncoded 08/01/17 16:48) RASH Home Medications: Home Meds Medication Instructions Recorded Confirmed Warfarin [Coumadin] 7 mg PO HS 05/14/17 08/01/17 Furosemide [Lasix] 80 mg PO Q12H 07/12/17 08/01/17 Insulin Human Regular-MED [HumuLIN See Protocol SC ACHS 08/01/17 08/01/17 R MED] Review of Systems - Physician Review All systems were reviewed & negative as marked: Yes - Review of Systems Constitutional: Normal Eyes: Normal ENT: Normal Respiratory: SOB, Cough Cardiovascular: Chest Pain, Edema. absent: Palpitations, Calf Pain, LAM, Orthopnea, Syncope Gastrointestinal: Normal Genitourinary Male: Normal Musculoskeletal: Normal Skin: Normal Neurological: Normal Endocrine: Normal Hemo/Lymphatic: Normal Psychiatric: Normal Physical Exam Vital Signs Reviewed: Yes Vital Signs Temp Pulse Resp BP Pulse Ox 08/01/17 15:28 97.9 F 73 19 130/87 97 08/01/17 14:18 133/80 08/01/17 14:00 68 18 131/61 99 08/01/17 12:15 71 19 133/65 99 08/01/17 11:23 74 18 130/71 95 08/01/17 10:05 20 08/01/17 10:04 97.6 F 70 20 132/79 97 Temperature: Afebrile Blood Pressure: Normal Pulse: Regular Respiratory Rate: Normal Appearance: Positive for: Well-Appearing, Non-Toxic, Comfortable, Other ( Morbidly obese) Pain Distress: None Mental Status: Positive for: Alert and Oriented X 3 - Systems Exam Head: Present: Atraumatic, Normocephalic Pupils: Present: PERRL Extroacular Muscles: Present: EOMI Conjunctiva: Present: Normal Mouth: Present: Moist Mucous Membranes Neck: Present: Normal Range of Motion Respiratory/Chest: Present: Clear to Auscultation, Good Air Exchange, Other ( Crackles to the bases). No: Respiratory Distress, Accessory Muscle Use, Wheezes , Decreased Breath Sounds, Rales, Retracting, Rhonchi Cardiovascular: Present: Regular Rate and Rhythm, Normal S1, S2. No: Murmurs Abdomen: No: Tenderness, Distention, Peritoneal Signs Back: Present: Normal Inspection Upper Extremity: Present: Normal Inspection. No: Cyanosis, Edema Lower Extremity: Present: Edema (3+ edema to right LE). No: CALF TENDERNESS Neurological: Present: GCS=15, CN II-XII Intact, Speech Normal Skin: Present: Warm, Dry, Normal Color. No: Rashes Psychiatric: Present: Alert, Oriented x 3, Normal Insight, Normal Concentration Medical Decision Making ED Course and Treatment: 08/01/17 20:15 Pt presented to Emergency department for stated history. He had leukocytosis. Elevated lactate was noted, but it does not meed spsis criteria. Elevated BNP was noted and lasix was given Chest X-ray Pulmonary edema/CHF and atelctasis. EKG NSR; RAD; RVH @ 70bpm. This is comparable to pt's previous EKG. PT was admitted for CHF exacerbation/COPD Case was DW Dr. chester and pt was admitted to his service. He requested Drs. Barba and Satinder consult. - Lab Interpretations Lab Results: 08/01/17 11:42 08/01/17 11:42 Lab Results 08/01/17 11:42: Sodium 146, Chloride 106, Potassium 4.2, Carbon Dioxide 26, Anion Gap 19, BUN 28 H, Creatinine 1.0, Est GFR ( Amer) > 60, Est GFR ( Non-Af Amer) > 60, Random Glucose 222 H, Calcium 9.0, Magnesium 1.6 L, Total Bilirubin 0.4, AST 24, ALT 24, Alkaline Phosphatase 66, Lactate Dehydrogenase 408, Total Creatine Kinase 68, Troponin I 0.04 D, NT-Pro-B Natriuret Pep 1390 H , Total Protein 6.8, Albumin 4.0, Globulin 2.8, Albumin/Globulin Ratio 1.4 08/01/17 11:42: pO2 55, VBG pH 7.39, VBG pCO2 46.0, VBG HCO3 27.8, VBG Total CO2 29.2 H, VBG O2 Sat (Calc) 90.7 H, VBG Base Excess 2.2 H, VBG Potassium 4.4, Sodium 141.0, Chloride 105.0, Glucose 234 H, Lactate 2.5 H, FiO2 21.0, Venous Blood Potassium 4.4 08/01/17 11:42: PT 33.2 H, INR 2.83 H, APTT 31.2 08/01/17 11:42: WBC 13.8 H D, RBC 4.83, Hgb 12.8 L, Hct 39.7 L, MCV 82.2, MCH 26.5, MCHC 32.2, RDW 15.8 H, Plt Count 185, MPV 10.7, Gran % 85.6 H, Lymph % ( Auto) 8.5 L, Cache % (Auto) 4.6, Eos % (Auto) 1.1 L, Baso % (Auto) 0.2, Gran # 11.78 H, Lymph # (Auto) 1.2, Cache # (Auto) 0.6, Eos # (Auto) 0.2, Baso # (Auto) 0.03 - RAD Interpretation Radiology Orders: 08/01/17 10:16 CHEST PORTABLE [RAD] Stat - Medication Orders Current Medication Orders: Acetaminophen (Tylenol 325mg Tab) 650 mg PO Q4H PRN PRN Reason: Fever >100.4 F Albuterol/Ipratropium (Duoneb 3 Mg/0.5 Mg (3 Ml) Ud) 3 ml IH Q4H PRN PRN Reason: Shortness of Breath Last Admin: 08/01/17 17:49 Dose: 3 ml Albuterol/Ipratropium (Duoneb 3 Mg/0.5 Mg (3 Ml) Ud) 3 ml IH TIDRESP [facility] Last Admin: 08/01/17 19:50 Dose: Carvedilol (Coreg) 3.125 mg PO BID [facility] Last Admin: 08/01/17 17:57 Dose: 3.125 mg MAR Pulse and Blood Pressure Document 08/01/17 17:57 LAISHA (Rec: 08/01/17 17:57 LAISHA [id number]) Pulse Pulse Rate (60-90) 77 Blood Pressure Blood Pressure (100/60-150/90) 146/66 Cilostazol (Pletal) 100 mg PO BID [facility] Last Admin: 08/01/17 17:56 Dose: 100 mg Diltiazem HCl (Cardizem) 30 mg PO BID [facility] Last Admin: 08/01/17 17:58 Dose: 30 mg MAR Pulse and Blood Pressure Document 08/01/17 17:58 JoshuaZA (Rec: 08/01/17 17:58 LAISHA [id number]) Pulse Pulse Rate (60-90) 77 Blood Pressure Blood Pressure (100/60-150/90) 146/66 Furosemide (Lasix) 40 mg IV 0800,1400 [facility] Gabapentin (Neurontin) 300 mg PO BID [facility] PRN Reason: Protocol Last Admin: 08/01/17 17:58 Dose: 300 mg Behavioural Document 08/01/17 17:58 JoshuaZA (Rec: 08/01/17 17:58 LAISHA [id number]) Maintenance Maintenance Dose Yes Behavior Behavior for Medication: Anxiety Glimepiride (Amaryl) 4 mg PO DAILY [facility] Milrinone Lactate/Dextrose (Primacor 20mg/100ml D5w) 100 mls @ 11.226 mls/hr IV .Q8H55M PRN; Protocol; 0.375 MCG/KG/MIN PRN Reason: TITRATE PER MD ORDER Stop: 08/03/17 07:00 Last Admin: 08/01/17 18:05 Dose: 0.375 mcg/kg/min, 11.226 mls/hr eMAR Start Stop Document 08/01/17 18:05 JoshuaZA (Rec: 08/01/17 18:06 LAISHA [id number]) Intravenous Solution Start Date 08/01/17 Start Time 18:06 MAR Pulse and Blood Pressure Document 08/01/17 18:05 JZA (Rec: 08/01/17 18:06 LAISHA [id number]) Pulse Pulse Rate (60-90) 77 Blood Pressure Blood Pressure (100/60-150/90) 146/66 Titration Intervention Document 08/01/17 18:05 JoshuaZA (Rec: 08/01/17 18:06 LAISHA [id number]) Titration Intake Waste Amount 0 Container Volume 100 Titration Dosing Titration Dose 0.375 IV Rate 11.226 Intake/Decrease Started Insulin Detemir (Levemir) 30 unit SC ACBD [facility] Last Admin: 08/01/17 17:56 Dose: 30 unit MAR Blood Glucose Document 08/01/17 17:56 JZA (Rec: 08/01/17 17:57 LAISHA [id number]) Blood Glucose Finger Stick Blood Glucose (70-120) 197 Subcutaneous Administrations Document 08/01/17 17:56 JoshuaZA (Rec: 08/01/17 17:57 JoshuaDENISE [id number]) Injection Site MAR Injection Site Right Arm Charges for Administration # of Subcutaneous Administrations 1 Insulin Human Regular (Humulin R Med) 0 units SC ACHS [facility] PRN Reason: Protocol Last Admin: 08/01/17 17:57 Dose: 1 units MAR Blood Glucose Document 08/01/17 17:57 JoshuaDENISE (Rec: 08/01/17 17:57 JoshuaDENISE [id number]) Blood Glucose Finger Stick Blood Glucose (70-120) 197 Subcutaneous Administrations Document 08/01/17 17:57 JoshuaDENISE (Rec: 08/01/17 17:57 JoshuaDENISE [id number]) Injection Site MAR Injection Site Right Arm Charges for Administration # of Subcutaneous Administrations 1 Lisinopril (Zestril) 2.5 mg PO DAILY [facility] Lorazepam (Ativan) 1 mg PO BID PRN; Protocol PRN Reason: Anxiety Metformin HCl (Glucophage) 1,000 mg PO BID [facility] Last Admin: 08/01/17 17:58 Dose: 1,000 mg Metolazone (Zaroxolyn) 5 mg PO DAILY [facility] Stop: 08/03/17 23:59 Montelukast Sodium (Singulair) 10 mg PO HS [facility] Oxycodone/Acetaminophen (Percocet 10/325 Mg Tab) 1 tab PO Q4H PRN PRN Reason: Pain, moderate (4-7) Ropinirole HCl (Requip) 0.5 mg PO HS [facility] Spironolactone (Aldactone) 25 mg PO BID [facility] Last Admin: 08/01/17 18:01 Dose: 25 mg Trazodone HCl (Desyrel) 150 mg PO HS [facility] Warfarin Sodium (Coumadin) 6 mg PO 1800 [facility] PRN Reason: Protocol Last Admin: 08/01/17 17:58 Dose: 6 mg Discontinued Medications Furosemide (Lasix) 40 mg IVP STAT STA Stop: 08/01/17 11:46 Last Admin: 08/01/17 14:18 Dose: 40 mg MAR Blood Pressure Document 08/01/17 14:18 [email or web address] (Rec: 08/01/17 14:18 CASTAlcides [id number]) Blood Pressure Blood Pressure (100/60-150/90) 133/80 IVP Administration Document 08/01/17 14:18 [email or web address] (Rec: 08/01/17 14:18 [email or web address] [id number]) Charges for Administration # of IVP Administrations 1 Furosemide (Lasix) 40 mg IV ONCE ONE Stop: 08/01/17 17:08 Last Admin: 08/01/17 17:56 Dose: 40 mg eMAR Start Stop Document 08/01/17 17:56 JZA (Rec: 08/01/17 17:56 JoshuaZA [id number]) Intravenous Solution Start Date 08/01/17 Start Time 17:56 End Date 08/01/17 End time 17:58 Total Infusion Time 2 MAR Blood Pressure Document 08/01/17 17:56 JoshuaZA (Rec: 08/01/17 17:56 JoshuaZA [id number]) Blood Pressure Blood Pressure (100/60-150/90) 146/66 Ceftriaxone Sodium (Rocephin 1 Gram Ivpb) 1 gm in 100 mls @ 200 mls/hr IVPB STAT STA PRN Reason: Protocol Stop: 08/01/17 13:15 Last Admin: 08/01/17 14:18 Dose: 200 mls/hr eMAR Start Stop Document 08/01/17 14:18 [email or web address] (Rec: 08/01/17 14:18 [email or web address] [id number]) Intravenous Solution Start Date 08/01/17 Start Time 14:18 End Date 08/01/17 Azithromycin (Zithromax 500mg In Ns) 500 mg in 250 mls @ 167 mls/hr IVPB STAT STA PRN Reason: Protocol Stop: 08/01/17 14:15 Last Admin: 08/01/17 15:05 Dose: 167 mls/hr eMAR Start Stop Document 08/01/17 15:05 [email or web address] (Rec: 08/01/17 15:06 [email or web address] [id number]) Intravenous Solution Start Date 08/01/17 Start Time 15:06 End Date 08/01/17 Levalbuterol HCl (Xopenex) 1.25 mg IH STAT STA Stop: 08/01/17 10:18 Last Admin: 08/01/17 10:43 Dose: 1.25 mg Levalbuterol HCl (Xopenex) 1.25 mg IH STAT STA Stop: 08/01/17 11:04 Last Admin: 08/01/17 14:18 Dose: 1.25 mg Lidocaine (Lidoderm) 1 ea TD ONCE ONE Stop: 08/01/17 11:16 Last Admin: 08/01/17 15:08 Dose: Not Given Non-Admin Reason: Patient Refused Metolazone (Zaroxolyn) 5 mg PO STAT [facility] Stop: 08/01/17 17:09 Last Admin: 08/01/17 17:57 Dose: 5 mg Nitroglycerin (Nitrostat Sl Tab) 0.4 mg SL STAT STA Stop: 08/01/17 11:12 Last Admin: 08/01/17 11:42 Dose: 0.4 mg Pneumococcal Polyvalent Vaccine (Pneumovax 23 Vaccine) 0.5 ml IM .ONCE ONE Stop: 08/01/17 19:57 Promethazine HCl/Dextromethorphan (Phenergan Dm Syrup) 5 ml PO ONCE [facility] Stop: 08/01/17 14:03 Last Admin: 08/01/17 14:19 Dose: 5 ml Disposition/Present on Arrival - Present on Arrival Any Indicators Present on Arrival: No History of DVT/PE: No History of Uncontrolled Diabetes: No Urinary Catheter: No History of Decub. Ulcer: No History Surgical Site Infection Following: None - Disposition Have Diagnosis and Disposition been Completed?: Yes Diagnosis: Congestive heart failure (CHF), COPD (chronic obstructive pulmonary disease), Chest pain Disposition: HOSPITALIZED Disposition Time: 14:00 Patient Plan: Admission Condition: FAIR
[2017-08-01] MEDS ORDERED: Promethazine DM 6.25 mg-15 mg/5 ml Syrup PO STA (14:02)
[2017-08-01 15:12] LABS: VENOUS BLOOD GAS BASE EXCESS 0.1 mmol/L (0.0-2.0); VENOUS BLOOD GAS PO2 39 mm/Hg (30-55); VENOUS BLOOD PH 7.27 (7.32-7.43)
[2017-08-01] MEDS ORDERED: metOLazone 5 MG TAB PO STA (17:08)
[2017-08-01] MEDS: Albuterol-Ipratrop 3 mg / 0.5 (3 ml) UD IH PRN (17:49)
[2017-08-01] MEDS: Cilostazol 100 mg Tab UD PO SCH (17:56)
[2017-08-01] MEDS: Insulin Detemir 100 units/ml Vial (Levemir) SC SCH (17:56)
[2017-08-01] MEDS: Insulin Reg-MEDIUM-Coverage SC SCH ×2 (17:57→22:06)
[2017-08-01] MEDS: Milrinone 20mg/100ml D5W 100 ML IV PRN (18:05)
[2017-08-01] MEDS: Albuterol-Ipratrop 3 mg / 0.5 (3 ml) UD IH SCH (19:50)
[2017-08-01] MEDS ORDERED: Pneumococcal 23-Valent Vaccine IM ONE (19:56)
--- NOTE | 2017-08-01 21:50 | CARD ---
APPROVED REPORT EKG Measurement Heart [id number] <Conclusion> Biventricular paced rhythm
[2017-08-01] MEDS ORDERED: guaiFENesin 200 mg/10 ml Syrup UD PO STA (22:21)
[2017-08-02] MEDS: Milrinone 20mg/100ml D5W 100 ML IV PRN ×2 (02:35→19:10)
[2017-08-02] MEDS: Cefepime 1gm in NS 100ml 1 GM/100 ML BAG IVPB SCH ×3 (06:51→23:28)
[2017-08-02 07:04] LABS: BASO # 0.03 K/mm3 (0.0-2.0); BASO % 0.3 % (0.0-3.0); EOS # 0.2 (0.0-0.7); EOS % 1.6 % (1.5-5.0); GRAN # 9.35 (1.4-6.5); GRAN % 82.8 % (50.0-68.0); HEMOGLOBIN 12.1 g/dL (14.0-18.0); LYMPH # 0.9 (1.2-3.4); LYMPH % 7.5 % (22.0-35.0); MEAN CELL VOLUME 81.9 fl (80.0-105.0); MEAN CORPUSCULAR HEMOGLOBIN 25.8 pg (25.0-35.0); MEAN CORPUSCULAR HGB CONC 31.5 g/dl (31.0-37.0); MEAN PLATELET VOLUME 10.4 fl (7.0-11.0); MONO # 0.9 (0.1-0.6); MONO % 7.8 % (1.0-6.0); RBC 4.69 10^6/uL (3.5-6.1); WHITE BLOOD COUNT 11.3 10^3/ul (4.5-11.0)
[2017-08-02 07:21] LABS: INR 3.01 (0.93-1.08); PROTHROMBIN TIME 35.4 SECONDS (9.4-12.5)
[2017-08-02 07:51] LABS: ALB/GLOB RATIO 1.4 (1.1-1.8); ALT/SGPT 28 U/L (7-56); AST/SGOT 24 U/L (17-59); BLOOD UREA NITROGEN 27 mg/dL (7-21); CALCIUM 9.1 mg/dL (8.4-10.5); GFR AFRICAN-AMERICAN > 60; GFR NON-AFRICAN AMERICAN > 60
[2017-08-02] MEDS: Albuterol-Ipratrop 3 mg / 0.5 (3 ml) UD IH SCH ×3 (08:08→19:48)
--- NOTE | 2017-08-02 08:46 | CON ---
DATE: 08/01/2017 REASON FOR CONSULTATION: Followup for acute decompensated congestive heart failure, cardiac evaluation. BRIEF CLINICAL HISTORY: This is a 57-year-old morbidly obese male with past medical history of diabetes; hypertension; hyperlipidemia; paroxysmal atrial fibrillation, status post radiofrequency ablation; paroxysmal atrial fibrillation, status post AICD; status post gastric bypass in the past; status post cardiac catheterization 3 times; nonobstructive coronary artery disease; status post acute limb ischemia and thrombectomy from the left leg; status post DVT on the right leg, status post thrombolysed, came in with complaint of left lower extremity swelling and coughing and shortness of breath, some burning sensation to the chest, but denies any dyspnea on exertion or chest pain on exertion. Patient has been noncompliant to medications, used to stop taking the medications when goes home because of the financial issues and financial strain. PAST MEDICAL HISTORY: Significant for nonobstructive coronary artery disease, status post cardiac catheterization x3; morbid obesity; cardiomyopathy, mild ejection fraction of 45%; COPD; bipolar disorder; anxiety disorder; diabetes; hypertension; hyperlipidemia. Last echo; ejection fraction of 45%, nonischemic cardiomyopathy status post cardiac catheterization as mentioned, status post AICD, history of radiofrequency ablation. PAST SURGICAL HISTORY: Significant for gastric bypass, status post AICD, status post thrombectomy for the left lower extremity, history of DVT, status post thrombolysis of right lower extremity, history of cardiac catheterization 3 times, and nonobstructive coronary artery disease, status post radiofrequency ablation and AICD placement. PREVIOUS CARDIAC WORKUP: As follows: Patient had a cardiac catheterization 2 or 3 times, 1 from the radius and 2 from the femoral approach, nonobstructive coronary artery disease. Last cath at [place] in 2014, nonobstructive coronary artery disease, EDP within the range of 30, status post AICD placement. Last echo on 08/15/2016, that shows mildly decreased LV function, ejection fraction of 45%, moderately dilated RV, moderate RV dysfunction. Last MUGA scan shows ejection fraction 43%. After that, the patient had a CORA, because of blood culture was growing positive, it ruled out endocarditis, dated 06/04/2017, that showed LVH, ejection fraction 25% to 30%, global hypokinesis, normal RV thickness, dilated RV, decreased RV function, mitral regurgitation, [id number] tricuspid regurgitation. No vegetation noted. CURRENT MEDICATION: Patient at home is supposed to take trazodone, Requip, Zaroxolyn, Cardizem, Coumadin, Singular, metformin, Lisinopril, insulin, gabapentin,, acetaminophen, ampicillin. ALLERGIES: SEROQUEL AND WILD [place]. REVIEW OF SYSTEMS: As per HPI. PHYSICAL EXAMINATION: VITAL SIGNS: As follows, height of the patient is 6 feet. Weight of the patient is 280 pounds. Body mass index is 50 kg/m2. Rest of the examination as follows; temperature afebrile, heart rate 70, blood pressure 130/87. HEENT: PERRLA. Extraocular muscles intact. NECK: Supple. No carotid bruit or thyromegaly. CHEST: Clear to auscultation. HEART: S1 and S2 regular. ABDOMEN: Soft. EXTREMITIES: Clubbing and cyanosis negative. 2 to 3+ pedal edema noted. BLOOD WORKUP: As follows: WBC 13.8, hemoglobin 12.8, hematocrit 39.7, platelet count 187. Chemistry showed sodium 140, potassium 4.2, chloride 106, carbon dioxide 26, anion gap of 19, BUN 20, creatinine 1, troponin 0.04. INR 2.83. EKG shows normal sinus A-paced V-sensed rhythm. Chest x-ray consistent with congestive heart failure. IMPRESSION: Decompensated congestive heart failure, acute on chronic; secondary systolic dysfunction, ejection fraction last 25%, MUGA scan shows 43%, but 2 consecutive echocardiograms and most recently CORA in 05/2017, ejection fraction at 25%. Morbid obesity, diabetes, hypertension, hyperlipidemia, history of gastric bypass, history of atrial fibrillation status post radiofrequency ablation, status post automated implantable cardioverter-defibrillator, history of deep venous thrombosis and thrombolysis of right lower extremity, history of acute ischemia and arterial thrombosis of left extremity. RECOMMENDATIONS: Continue anticoagulation, start Lasix, Zaroxolyn with low dose of Primacor, diuresis for 48 hours. Patient will get benefit from Primacor for 48 hours. . We will follow with you. Thank you, , for providing us the opportunity in taking care of the patient. Tia Rajan MD [facility]
[2017-08-02] MEDS ORDERED: metOLazone 5 MG TAB PO ONE (09:19)
[2017-08-02] MEDS: Insulin Detemir 100 units/ml Vial (Levemir) SC SCH ×2 (10:50→18:30)
[2017-08-02] MEDS ORDERED: Potassium Chloride 20 mEq ER Tab PO ONE (10:50)
[2017-08-02] MEDS: Cilostazol 100 mg Tab UD PO SCH ×2 (10:50→18:29)
[2017-08-02] MEDS: metOLazone 5 MG TAB PO SCH (10:50)
--- NOTE | 2017-08-02 11:30 | CP.PCM.PN ---
Subjective - Date & Time of Evaluation Date of Evaluation: 08/02/17 Time of Evaluation: 07:00 - Subjective Subjective: Sitting in chair, awake, denies chest pain, denies shortness of breath, unable to sleep due to coughing Reason for consultation and follow up: Cardiac evaluation, chest pain,shortness of breath, Atrial fibrillation, COPD, CHF, coronary artery disease, AICD/PPM, hypertension, hyperlipidemia, gastric bypass Seen and examined by me and Dr. Rajan Objective - Vital Signs/Intake and Output Vital Signs (last 24 hours): Temp Pulse Resp BP Pulse Ox 98.4 F 81 19 158/98 H 97 08/01/17 19:32 08/02/17 02:35 08/01/17 23:00 08/02/17 02:35 08/01/17 18:02 - Medications Medications: Current Medications Acetaminophen (Tylenol 325mg Tab) 650 mg PO Q4H PRN PRN Reason: Fever >100.4 F Albuterol/Ipratropium (Duoneb 3 Mg/0.5 Mg (3 Ml) Ud) 3 ml IH Q4H PRN PRN Reason: Shortness of Breath Last Admin: 08/01/17 17:49 Dose: 3 ml Albuterol/Ipratropium (Duoneb 3 Mg/0.5 Mg (3 Ml) Ud) 3 ml IH TIDRESP [facility] Last Admin: 08/02/17 08:08 Dose: 3 ml Carvedilol (Coreg) 3.125 mg PO BID [facility] Last Admin: 08/01/17 17:57 Dose: 3.125 mg Cilostazol (Pletal) 100 mg PO BID [facility] Last Admin: 08/01/17 17:56 Dose: 100 mg Diltiazem HCl (Cardizem) 30 mg PO BID [facility] Last Admin: 08/01/17 17:58 Dose: 30 mg Doxycycline Hyclate (Doryx) 100 mg PO Q12 [facility] PRN Reason: Protocol Stop: 08/09/17 10:01 Furosemide (Lasix) 40 mg IV 0800,1400 [facility] Gabapentin (Neurontin) 300 mg PO BID [facility] PRN Reason: Protocol Last Admin: 08/01/17 17:58 Dose: 300 mg Glimepiride (Amaryl) 4 mg PO DAILY [facility] Milrinone Lactate/Dextrose (Primacor 20mg/100ml D5w) 100 mls @ 11.226 mls/hr IV .Q8H55M PRN; Protocol; 0.375 MCG/KG/MIN PRN Reason: TITRATE PER MD ORDER Stop: 08/03/17 07:00 Last Admin: 08/02/17 02:35 Dose: 0.375 mcg/kg/min, 11.226 mls/hr Cefepime HCl (Maxipime 1gm) 1 gm in 100 mls @ 100 mls/hr IVPB Q8 [facility] PRN Reason: Protocol Stop: 08/11/17 06:01 Last Admin: 08/02/17 06:51 Dose: 100 mls/hr Insulin Detemir (Levemir) 30 unit SC ACBD [facility] Last Admin: 08/01/17 17:56 Dose: 30 unit Insulin Human Regular (Humulin R Med) 0 units SC ACHS [facility] PRN Reason: Protocol Last Admin: 08/01/17 22:06 Dose: Not Given Lisinopril (Zestril) 2.5 mg PO DAILY [facility] Lorazepam (Ativan) 1 mg PO BID PRN; Protocol PRN Reason: Anxiety Last Admin: 08/01/17 22:27 Dose: 1 mg Magnesium Oxide (Mag-Ox) 400 mg PO BID [facility] Stop: 08/03/17 23:59 Metformin HCl (Glucophage) 1,000 mg PO BID [facility] Last Admin: 08/01/17 17:58 Dose: 1,000 mg Metolazone (Zaroxolyn) 5 mg PO DAILY [facility] Stop: 08/03/17 23:59 Montelukast Sodium (Singulair) 10 mg PO HS [facility] Last Admin: 08/01/17 22:05 Dose: 10 mg Oxycodone/Acetaminophen (Percocet 10/325 Mg Tab) 1 tab PO Q4H PRN PRN Reason: Pain, moderate (4-7) Prednisone (Prednisone Tab) 40 mg PO DAILY [facility] Promethazine HCl (Phenergan Syrup) 6.25 mg PO Q4H PRN PRN Reason: Cough Ropinirole HCl (Requip) 0.5 mg PO HS [facility] Last Admin: 08/01/17 22:07 Dose: 0.5 mg Sodium Chloride ([place] Nasal [place]) 1 ml NS BID [facility] Spironolactone (Aldactone) 25 mg PO BID [facility] Last Admin: 08/01/17 18:01 Dose: 25 mg Trazodone HCl (Desyrel) 150 mg PO HS [facility] Last Admin: 08/01/17 22:05 Dose: 150 mg Warfarin Sodium (Coumadin) 4 mg PO 1800 [facility] - Labs Labs: PT 35.4 SECONDS (9.4-12.5) H 08/02/17 06:00 INR 3.01 (0.93-1.08) H 08/02/17 06:00 APTT 31.2 Seconds (25.1-36.5) 08/01/17 11:42 - Constitutional Appears: No Acute Distress - Head Exam Head Exam: NORMOCEPHALIC - Eye Exam Eye Exam: Normal appearance - ENT Exam ENT Exam: Mucous Membranes Moist - Respiratory Exam Respiratory Exam: Decreased Breath Sounds, Rhonchi, Wheezes Additional comments: coughing whitish phlegm - Cardiovascular Exam Cardiovascular Exam: +S1, +S2 - GI/Abdominal Exam GI & Abdominal Exam: Soft, Normal Bowel Sounds - Extremities Exam Additional comments: 2-3+ edema - Neurological Exam Neurological Exam: Alert, Awake, Oriented x3 - Psychiatric Exam Psychiatric exam: Normal Affect, Normal Mood - Skin Skin Exam: Intact, Normal Color, Warm Assessment and Plan - Assessment and Plan (Free Text) Assessment: A 57 year old male who came in to the ER due to burning chest pain and shortness of breath. history of Atrial fib, COPD, CHF, CAD, AICD/pacemaker, Diabetes, depression, bipolar, anxiety, hyperlipidemia,hypertension, post afib ablation, gastric bypass, DVT, post cardiac cath x 3 with non obstructive coronary artery disease. Plan: Decompensated congestive heart failure Started on Primacor On Lasix and Zaroxylyn to diurese On Coreg 3.125 mg BID, Cardizem 30 mg BID, Lasix 40 mg BID Milrinone drip, Zestril 2.5 mg daily,Aldactone 25 mg BID, Coumadin 4 mg daily Zaroxylyn 5 mg daily PRN Phenergan syrup for cough Continue current treatment Continue current medications
[2017-08-02] MEDS: Insulin Reg-MEDIUM-Coverage SC SCH ×4 (12:07→23:29)
[2017-08-02] MEDS: Magnesium Oxide 400 mg Tab UD PO SCH ×2 (12:16→18:25)
--- NOTE | 2017-08-02 14:32 | CP.PCM.CON ---
History of Present Illness - History of Present Illness History of Present Illness: Podiatry Consult Note- Dr. Marti 56 year old male with PMHx of DM, HTN, CHF (w/ pacemaker), COPD, pacemaker, Diabetes, depression, bipolar, anxiety consulted for bilaterally lower extremity examination admitted for chest pain and shortness of breath. Patient seen at bedside today with attending Dr. Marti. Pt seen resting comfortably in bed at time of visit, appears AAOx3 and in NAD. Patient reports that the wounds on left leg is healed. Reports swelling to the legs. Denies of pain. Denies any pedal complaints at this time. Denies nausea, fever, chills, chest pain or shortness of breath during the time of visitation. Past Patient History - Infectious Disease Hx of Infectious Diseases: None - Tetanus Immunizations Tetanus Immunization: Unknown - Past Medical History & Family History Past Medical History?: Yes - Past Social History Smoking Status: Former Smoker - CARDIAC Hx Congestive Heart Failure: Yes Hx Hypertension: Yes - PULMONARY Hx Chronic Obstructive Pulmonary Disease (COPD): Yes - NEUROLOGICAL Hx Dizziness: Yes Other/Comment: numbness both thighs, pt stated "I was in a coma for 2 weeks from seroquel - HEENT Hx HEENT Problems: Yes (eyeglasses, [place]) Other/Comment: eye sx for strabismus - RENAL Hx Chronic Kidney Disease: No - ENDOCRINE/METABOLIC Hx Diabetes Mellitus Type 2: Yes - HEMATOLOGICAL/ONCOLOGICAL Hx Cancer: No - INTEGUMENTARY Hx Dermatological Problems: Yes Other/Comment: ble slight redness discolorations dry skin 1.5cm x 1cm dry deep red scabb to outer lower left leg surrounded by red,dry skin, c/o severe pain - MUSCULOSKELETAL/RHEUMATOLOGICAL Hx Falls: No - GASTROINTESTINAL Hx Gastrointestinal Disorders: Yes (obese) Hx Gastroesophageal Reflux: Yes - GENITOURINARY/GYNECOLOGICAL Hx Genitourinary Disorders: No - PSYCHIATRIC Hx Anxiety: Yes Hx Bipolar Disorder: Yes Hx Depression: Yes Hx Substance Use: No Other/Comment: quit smoking, drinking, cocaine use 25 yrs ago - SURGICAL HISTORY Hx Mastectomy: No - ANESTHESIA Hx Anesthesia Reactions: No Hx Malignant Hyperthermia: No Meds Allergies/Adverse Reactions: Allergies Allergy/AdvReac Type Severity Reaction Status Date / Time quetiapine fumarate AdvReac ANAPHYLAXIS Verified 08/01/17 16:48 [From Seroquel] wild berries Allergy Intermediate RASH Uncoded 08/01/17 16:48 - Medications Medications: Current Medications Acetaminophen (Tylenol 325mg Tab) 650 mg PO Q4H PRN PRN Reason: Fever >100.4 F Albuterol/Ipratropium (Duoneb 3 Mg/0.5 Mg (3 Ml) Ud) 3 ml IH Q4H PRN PRN Reason: Shortness of Breath Last Admin: 08/01/17 17:49 Dose: 3 ml Albuterol/Ipratropium (Duoneb 3 Mg/0.5 Mg (3 Ml) Ud) 3 ml IH TIDRESP [facility] Last Admin: 08/02/17 13:56 Dose: 3 ml Carvedilol (Coreg) 3.125 mg PO BID [facility] Last Admin: 08/02/17 10:50 Dose: 3.125 mg Cilostazol (Pletal) 100 mg PO BID [facility] Last Admin: 08/02/17 10:50 Dose: 100 mg Diltiazem HCl (Cardizem) 30 mg PO BID [facility] Last Admin: 08/02/17 10:50 Dose: 30 mg Doxycycline Hyclate (Doryx) 100 mg PO Q12 [facility] PRN Reason: Protocol Stop: 08/09/17 10:01 Last Admin: 08/02/17 10:50 Dose: 100 mg Furosemide (Lasix) 40 mg IV 0800,1400 [facility] Last Admin: 08/02/17 10:50 Dose: 40 mg Gabapentin (Neurontin) 300 mg PO BID [facility] PRN Reason: Protocol Last Admin: 08/02/17 10:50 Dose: 300 mg Glimepiride (Amaryl) 4 mg PO DAILY [facility] Last Admin: 08/02/17 10:50 Dose: 4 mg Milrinone Lactate/Dextrose (Primacor 20mg/100ml D5w) 100 mls @ 11.226 mls/hr IV .Q8H55M PRN; Protocol; 0.375 MCG/KG/MIN PRN Reason: TITRATE PER MD ORDER Stop: 08/03/17 07:00 Last Admin: 08/02/17 02:35 Dose: 0.375 mcg/kg/min, 11.226 mls/hr Cefepime HCl (Maxipime 1gm) 1 gm in 100 mls @ 100 mls/hr IVPB Q8 [facility] PRN Reason: Protocol Stop: 08/11/17 06:01 Last Admin: 08/02/17 06:51 Dose: 100 mls/hr Insulin Detemir (Levemir) 30 unit SC ACBD [facility] Last Admin: 08/02/17 10:50 Dose: 30 unit Insulin Human Regular (Humulin R Med) 0 units SC ACHS [facility] PRN Reason: Protocol Last Admin: 08/02/17 12:17 Dose: 3 units Lisinopril (Zestril) 2.5 mg PO DAILY [facility] Last Admin: 08/02/17 10:50 Dose: 2.5 mg Lorazepam (Ativan) 1 mg PO BID PRN; Protocol PRN Reason: Anxiety Last Admin: 08/01/17 22:27 Dose: 1 mg Magnesium Oxide (Mag-Ox) 400 mg PO BID [facility] Stop: 08/03/17 23:59 Last Admin: 08/02/17 12:16 Dose: 400 mg Metformin HCl (Glucophage) 1,000 mg PO BID [facility] Last Admin: 08/02/17 10:50 Dose: 1,000 mg Metolazone (Zaroxolyn) 5 mg PO DAILY [facility] Stop: 08/03/17 23:59 Last Admin: 08/02/17 10:50 Dose: 5 mg Montelukast Sodium (Singulair) 10 mg PO HS [facility] Last Admin: 08/01/17 22:05 Dose: 10 mg Oxycodone/Acetaminophen (Percocet 10/325 Mg Tab) 1 tab PO Q4H PRN PRN Reason: Pain, moderate (4-7) Prednisone (Prednisone Tab) 40 mg PO DAILY [facility] Last Admin: 08/02/17 10:50 Dose: 40 mg Promethazine HCl (Phenergan Syrup) 6.25 mg PO Q4H PRN PRN Reason: Cough Ropinirole HCl (Requip) 0.5 mg PO HS [facility] Last Admin: 08/01/17 22:07 Dose: 0.5 mg Sodium Chloride ([place] Nasal [place]) 1 ml NS BID [facility] Last Admin: 08/02/17 10:50 Dose: 2 spray Spironolactone (Aldactone) 25 mg PO BID [facility] Last Admin: 08/02/17 10:50 Dose: 25 mg Trazodone HCl (Desyrel) 150 mg PO HS [facility] Last Admin: 05/16/18 22:05 Dose: 150 mg Warfarin Sodium (Coumadin) 4 mg PO 1800 [facility] Physical Exam - Constitutional Appears: Well, Non-toxic, No Acute Distress - Extremities Exam Extremities exam: Negative for: calf tenderness Additional comments: VASC: DP and PT pulses non-palpable b/l, TG wnl, CFT < 3 sec to all digits, bilateral +3 pitting edema NEURO: Gross sensation diminished bilaterally DERM: Two newly healed lesion with superficial hyperkeratoic layer located to the anterolateral resendiz of left leg. No open lesions, no erythema, ascending cellulitis, no fluctuance, no malodor, no acute clinical signs of infection ORTHO: No tenderness to palpation anterolateral leg pre-ulcerative lesions - Neurological Exam Neurological exam: Alert, Oriented x3 - Psychiatric Exam Psychiatric exam: Normal Affect, Normal Mood Results - Vital Signs Recent Vital Signs: Last Vital Signs Temp 97.3 F L 08/02/17 12:00 Pulse 97 H 08/02/17 12:00 Resp 18 08/02/17 12:00 BP 100/78 08/02/17 12:00 Pulse Ox 97 08/01/17 18:02 - Labs Result Diagrams: 08/02/17 06:00 08/02/17 06:00 Labs: Laboratory Results - last 24 hr 08/02/17 11:48 POC Glucose (mg/dL) 200 H Assessment & Plan - Assessment and Plan (Free Text) Assessment: 56 year old male with PMHx of DM, HTN, CHF (w/ pacemaker), COPD, pacemaker, Diabetes, depression, bipolar, anxiety with left leg two preulcerative lesion secondary to swelling Plan: Patient examined and evaluated with attending Dr. Marti Discussed plan in detail with attending Labs and vital reviewed (afebrile, leukocytosis) Leukocytosis not from lower extremity Patient lesions cleansed with saline, maxosorb and bandage applied to cover newly healed ulceration Keep dressing on until Sunday LUCIE compression applied. To be worn all day. To be removed prior to sleeping and reapplied in the morning Will continue to follow while in house Thank you for allowing us to take part in patient's care
--- NOTE | 2017-08-02 18:17 | HP ---
DATE OF EXAM: 08/02/2017 PHYSICAL EXAMINATION: VITAL SIGNS: Temperature is 98.4, pulse of 91, blood pressure is 146/66, respirations 19. GENERAL: The patient lying in bed, uncomfortable, and in no acute distress. HEENT: Atraumatic and normocephalic. Anicteric sclerae. Moist mucosa. [place] conjunctivae. No oral lesions. NECK: No JVD, anterior and posterior adenopathy, thyromegaly, or bruits. CARDIOVASCULAR: S1 and S2 regular. No murmur, rubs, or gallop. LUNGS: Good bilateral air entry. There is wheezing bilaterally. No rhonchi. No rales. ABDOMEN: Bowel sounds are positive. Soft, nontender and nondistended. No hepatosplenomegaly. No rebound and no guarding. EXTREMITIES: No cyanosis or clubbing. In the lower extremity, 2+ edema. NEUROLOGIC: No facial asymmetry. Tongue is midline. No uvula deviation. Power is 5/5 upper extremity and lower extremity. Sensation intact in upper extremity and lower extremity. PSYCHIATRIC: He is awake, alert and oriented x3. No anxiety or depression. He has normal affect. GENITOURINARY: No CVA tenderness. VASCULAR: 2+ pulses in the carotid pulses and pedal pulses. SKIN: No erythema or nodules. SPINE: Shows normal curvature. LABORATORY DATA: White count of 13.8, hemoglobin 12.8, platelet count is 185. Chemistry shows a sodium of 146, creatinine is 1, magnesium is 1.6, repeat is 1.7, albumin is 4. INR is 2.8, repeat INR is 3. VBG done shows a pH of 7.39 with a pCO2 of 46, proBNP is 3090. EKG done shows a biventricular paced rhythm. Chest x-ray shows mild diffused increased central pulmonary vascularity suggesting pulmonary edema. ASSESSMENT: 1. Acute congestive heart failure secondary to systolic dysfunction. 2. Acute chronic obstructive pulmonary disease. 3. Diabetes type 2. 4. Hypertension. 5. Atrial fibrillation, on Coumadin. 6. Peripheral arterial disease. 7. Pacemaker/defibrillator. 8. History of gastric bypass. 9. Restless legs syndrome. 10. Morbid obesity with a body mass index of 43. PLAN: The patient is currently comfortable. He is going to be admitted to the hospital. He has elevated proBNP. He has lower extremity edema. He has chest x-ray that shows pulmonary vascular congestion. He has acute congestive heart failure and will be treated with IV diuretic therapy. The patient is on Amaryl for his diabetes. He is going to continue with Coumadin. I will decrease his Coumadin. The patient is going to be seen by Cardiology and by Pulmonary. The patient is on Lasix. I will add metolazone 1 dose. He is going to be on Levemir for his diabetes. He is on gabapentin for his neuropathy. The patient is on promethazine for his cough. The patient is receiving Pletal. The patient is on Requip for his restless legs. The patient is on Singulair. He is going to be on lisinopril for his congestive heart failure. The patient is on a heart-healthy diet. We will await culture results. He was also be seen by ID. Axel Villagomez MD
[2017-08-02] MEDS: Promethazine 6.25 MG/5 ML CUP PO PRN (23:28)
--- NOTE | 2017-08-02 23:34 | CON ---
DATE: 08/02/2017 LOCATION: The patient is seen earlier this morning in room 276, bed 2. CHIEF COMPLAINT: Shortness of breath times several days. HISTORY OF PRESENT ILLNESS: This is a 57-year-old male known to me from previous admissions with a morbid obesity with a BMI of 43 and hypertensive, diabetes, chronic obstructive lung disease, atrial fibrillation on anticoagulation, congestive heart failure, chronic leg wound infections, history of Enterococcus faecalis bacteremia, recent hospitalization, history of being bipolar and depression, who was admitted now with diagnosis of congestive heart failure. Infectious Disease consultation requested. REVIEW OF SYSTEMS: Reveals the patient has a 12-point review systems performed and had low-grade fevers, no chills, no chest pain. There is shortness of breath. No abdominal pain, diarrhea or constipation. No bright red blood per rectum. No melena, no dysuria. No headaches or blurred vision. No neck pain. No sore throat. PAST MEDICAL HISTORY: Significant for hypertension, diabetes, chronic obstructive lung disease, morbid obesity, BMI of 43, atrial fibrillation on anticoagulation, congestive heart failure, chronic leg wound, history of Enterococcus faecalis bacteremia, history of depression and bipolar, history of recent hospitalization. PAST SURGICAL HISTORY: Significant for AICD, gastric bypass and left leg thrombectomy. ALLERGIES: THE PATIENT IS ALLERGIC TO QUETIAPINE FUMARATE AND WILD [place]. MEDICATIONS AT HOME: Include insulin, Bactroban, , Lasix, lisinopril, warfarin, metformin. PHYSICAL EXAMINATION: GENERAL: The patient is in bed with moderate shortness of breath. VITAL SIGNS: Temperature of 97, heart rate of 91 to 97 and respiratory rate of 18 to 20 and blood pressure is 150/90. HEENT: Unremarkable. NECK: Supple. LUNGS: Have decreased breath sounds. HEART: Normal S1, S2. ABDOMEN: Soft, nontender. No organomegaly. No rebound. No guarding. No masses. LABORATORY DATA: Reveals a white count of 13,800, hemoglobin of 12, platelets of 185. Coagulation is noted. Chemistries reveals the patient has a BUN of 27, creatinine of 1.5. Procalcitonin is less than 0.05. Microbiology reveals the blood cultures are no growth. The patient had a chest x-ray, which is consistent with a congestive heart failure. Patient had EKG, which had a QTC of 406. Had an echo on 06/04/2017, with decreased ejection fraction. ASSESSMENT AND PLAN: A 57-year-old male with diabetes and hypertension, chronic obstructive lung disease, morbid obesity, body mass index of 43, atrial fibrillation on anticoagulation, congestive heart failure, chronic leg wound, Enterococcus faecalis bacteremia, depression, bipolar, recent hospitalization, now presenting with leukocytosis, tachycardia, systemic inflammatory response syndrome with acute systolic congestive heart failure on top of chronic congestive heart failure in a patient with chronic obstructive lung disease. We will treat the patient with Maxipime and doxycycline. Underlying pneumonia less likely due to normal procalcitonin. Negative blood cultures. Leukocytosis appears to be improving if all cultures and workup is negative. Sputum and urine cultures are pending. We will discontinue the antibiotics. Currently, the patient is started on doxycycline and cefepime day #2. The patient is also on prednisone and we will follow with you. Nikolay Barba MD
--- NOTE | 2017-08-02 23:59 | CON ---
DATE: 08/02/2017 PULMONARY CONSULT REFERRING PHYSICIAN: Axel Villagomez MD. REASON FOR CONSULT: Chronic obstructive lung disease, sleep apnea syndrome, cardiomyopathy. HISTORY OF PRESENT ILLNESS: This is a 57-year-old gentleman with multiple medical problems including obstructive lung disease, obstructive sleep apnea syndrome, cardiomyopathy, coronary artery disease, history of atrial fibrillation requiring ablation therapy, has AICD, also with diabetes, nonhealing leg ulcer, treated for bacteremia recently, morbid obesity, noncompliant, comes in with swelling of lower extremity, shortness of breath and cough. Has a left leg nonhealing ulcer, also has one of the toes developing ulcer. No hemoptysis. No hematemesis. No hematuria. No diarrhea reported. PAST MEDICAL HISTORY: Cardiomyopathy, chronic obstructive lung disease, also has a history of bipolar disorder, history of thromboembolic disease requiring thrombectomy in the past, atrial fibrillation, has AICD, history of cardioversion in the past, diabetes, nonhealing leg ulcer. ALLERGY: TO SEROQUEL AND WILD [place]. FAMILY HISTORY: No significant cardiopulmonary disease reported. MEDICATIONS: He is on spironolactone 25 mg twice a day, glimepiride 4 mg daily, Ativan 1 mg twice a day, Cardizem 30 mg twice a day, Coreg 3.125 mg twice a day, Coumadin 4 mg daily, trazodone 150 mg daily, doxycycline 100 mg twice a day, DuoNeb every 4 hours p.r.n., DuoNeb every 8 hours [id number], metformin 1000 mg twice a day, insulin coverage, Lasix 40 mg twice a day, Levemir 30 units subcu before breakfast daily, mag oxide 400 mg twice a day, cefepime 1 g IV every 8 hours, gabapentin 300 mg twice a day, nasal saline twice a day, Percocet 10/325 one tab every 4 hours p.r.n., promethazine 6.25 mg every 4 hours p.r.n., Pletal 100 mg twice a day, prednisone 40 mg daily, Primacor IV drip, Requip 0.5 mg daily, Singulair 10 mg daily, Tylenol p.r.n., Zaroxolyn 5 mg daily, Zestril 2.5 mg daily. REVIEW OF SYSTEMS: No headache, no rhinitis. Does have a cough, some sputum, short of breath. No chest pain. No palpitation. No nausea. No vomiting. No diarrhea. Has a significant leg swelling and nonhealing ulcers. PHYSICAL EXAMINATION: GENERAL: Mild distress. VITAL SIGNS: Temp is 98, heart rate is 77, respiratory rate is 80, blood pressure 124/67, pulse ox 94% on room air. HEENT: Moist mucous membrane. Crowded airway. Mallampati score is 4. NECK: Supple. No JVD. LUNGS: Have a few scattered rhonchi. HEART: S1 and S2. ABDOMEN: Soft, nontender. No organomegaly. EXTREMITIES: Have edema of the both legs. Has left lower extremity nonhealing ulcers. NEUROLOGICAL: Awake, alert. Follows simple command. LABORATORY DATA: Shows hemoglobin 12.1, hematocrit 38.4, WBC 11.3, platelet count is 178. INR is 3.01. Has a VBG done yesterday shows pH 7.27, pCO2 is 62, O2 of 39. Sodium 144, potassium 3.9, chloride 15, bicarbonate 27, BUN 27, creatinine 1.1, glucose 181, calcium 9.1, phosphorus 3.2, magnesium 1.7, AST 24, ALT 28, alk phos is 63, albumin is 4, TSH is 0.96. Microbiology: Blood culture has been negative. Chest x-ray done today shows vascular congestion, developing pulmonary edema. IMPRESSION AND PLAN: Cardiomyopathy, atrial fibrillation, history of ablation therapy, has automatic implantable cardioverter-defibrillator, hypertension, chronic obstructive lung disease, sleep apnea syndrome, obesity, history of thromboembolic disease requiring thrombectomy, peripheral vascular disease, nonhealing leg ulcer, history of bacteremia. Pulmonary point of view, we will start him on continuous positive airway pressure 7 cm, 30% of oxygen while sleeping. Continue p.. and inhaled bronchodilator. I agree with Primacor use. Continue diuretics, anticoagulation, gastric prophylaxis. Elevate lower extremity. Follow up labs in the morning. Thank you and we will follow with you. Tia Godinez MD
[2017-08-03] MEDS: Cefepime 1gm in NS 100ml 1 GM/100 ML BAG IVPB SCH (05:08)
[2017-08-03] MEDS: Milrinone 20mg/100ml D5W 100 ML IV PRN (05:09)
[2017-08-03 07:13] LABS: BLOOD UREA NITROGEN 29 mg/dL (7-21); CALCIUM 8.9 mg/dL (8.4-10.5); GFR AFRICAN-AMERICAN > 60; GFR NON-AFRICAN AMERICAN > 60
[2017-08-03] MEDS: Albuterol-Ipratrop 3 mg / 0.5 (3 ml) UD IH SCH ×3 (08:10→20:45)
[2017-08-03] MEDS: Insulin Reg-MEDIUM-Coverage SC SCH ×4 (08:14→21:38)
[2017-08-03] MEDS: Insulin Detemir 100 units/ml Vial (Levemir) SC SCH ×2 (08:15→17:33)
[2017-08-03] MEDS ORDERED: metOLazone 5 MG TAB PO SCH (10:00)
[2017-08-03] MEDS: Cilostazol 100 mg Tab UD PO SCH ×2 (10:18→17:37)
[2017-08-03] MEDS: Magnesium Oxide 400 mg Tab UD PO SCH ×2 (10:18→17:36)
[2017-08-03] MEDS: metOLazone 5 MG TAB PO SCH (10:20)
--- NOTE | 2017-08-03 11:49 | CP.PCM.PN ---
Subjective - Date & Time of Evaluation Date of Evaluation: 08/03/17 Time of Evaluation: 10:40 - Subjective Subjective: Patient is breathing better with oxygen on, no fevers, improving leg swelling especially with the compression stockings, no diarrhea. Objective - Vital Signs/Intake and Output Vital Signs (last 24 hours): Temp Pulse Resp BP Pulse Ox 97.4 F L 78 21 112/60 96 08/03/17 06:00 08/03/17 06:00 08/03/17 06:00 08/03/17 06:00 08/03/17 06:00 Intake and Output: 08/03/17 08/03/17 06:59 18:59 Intake Total 100 Balance 100 - Medications Medications: Current Medications Acetaminophen (Tylenol 325mg Tab) 650 mg PO Q4H PRN PRN Reason: Fever >100.4 F Albuterol/Ipratropium (Duoneb 3 Mg/0.5 Mg (3 Ml) Ud) 3 ml IH Q4H PRN PRN Reason: Shortness of Breath Last Admin: 08/01/17 17:49 Dose: 3 ml Albuterol/Ipratropium (Duoneb 3 Mg/0.5 Mg (3 Ml) Ud) 3 ml IH TIDRESP [facility] Last Admin: 08/02/17 19:48 Dose: 3 ml Carvedilol (Coreg) 3.125 mg PO BID [facility] Last Admin: 08/02/17 18:24 Dose: 3.125 mg Cilostazol (Pletal) 100 mg PO BID [facility] Last Admin: 08/02/17 18:29 Dose: 100 mg Diltiazem HCl (Cardizem) 30 mg PO BID [facility] Last Admin: 08/02/17 18:21 Dose: 30 mg Doxycycline Hyclate (Doryx) 100 mg PO Q12 [facility] PRN Reason: Protocol Stop: 08/09/17 10:01 Last Admin: 08/02/17 23:29 Dose: 100 mg Furosemide (Lasix) 40 mg IV 0800,1400 [facility] Last Admin: 08/02/17 14:35 Dose: 40 mg Gabapentin (Neurontin) 300 mg PO BID [facility] PRN Reason: Protocol Last Admin: 08/02/17 18:24 Dose: 300 mg Glimepiride (Amaryl) 4 mg PO DAILY [facility] Last Admin: 08/02/17 10:50 Dose: 4 mg Cefepime HCl (Maxipime 1gm) 1 gm in 100 mls @ 100 mls/hr IVPB Q8 [facility] PRN Reason: Protocol Stop: 08/11/17 06:01 Last Admin: 08/03/17 05:08 Dose: 100 mls/hr Insulin Detemir (Levemir) 30 unit SC ACBD [facility] Last Admin: 08/02/17 18:30 Dose: 30 unit Insulin Human Regular (Humulin R Med) 0 units SC ACHS [facility] PRN Reason: Protocol Last Admin: 08/02/17 23:29 Dose: Not Given Lisinopril (Zestril) 2.5 mg PO DAILY [facility] Last Admin: 08/02/17 10:50 Dose: 2.5 mg Lorazepam (Ativan) 1 mg PO BID PRN; Protocol PRN Reason: Anxiety Last Admin: 08/02/17 23:27 Dose: 1 mg Magnesium Oxide (Mag-Ox) 400 mg PO BID [facility] Stop: 08/03/17 23:59 Last Admin: 08/02/17 18:25 Dose: 400 mg Metformin HCl (Glucophage) 1,000 mg PO BID [facility] Last Admin: 08/02/17 18:29 Dose: 1,000 mg Metolazone (Zaroxolyn) 5 mg PO DAILY [facility] Stop: 08/03/17 23:59 Last Admin: 08/02/17 10:50 Dose: 5 mg Montelukast Sodium (Singulair) 10 mg PO HS [facility] Last Admin: 08/02/17 23:27 Dose: 10 mg Oxycodone/Acetaminophen (Percocet 10/325 Mg Tab) 1 tab PO Q4H PRN PRN Reason: Pain, moderate (4-7) Prednisone (Prednisone Tab) 40 mg PO DAILY [facility] Last Admin: 08/02/17 10:50 Dose: 40 mg Promethazine HCl (Phenergan Syrup) 6.25 mg PO Q4H PRN PRN Reason: Cough Last Admin: 08/02/17 23:28 Dose: 6.25 mg Ropinirole HCl (Requip) 0.5 mg PO HS [facility] Last Admin: 08/02/17 23:27 Dose: 0.5 mg Sodium Chloride ([place] Nasal [place]) 1 ml NS BID [facility] Last Admin: 08/02/17 18:25 Dose: 1 spray Spironolactone (Aldactone) 25 mg PO BID [facility] Last Admin: 08/02/17 18:24 Dose: 25 mg Trazodone HCl (Desyrel) 150 mg PO HS [facility] Last Admin: 08/02/17 23:27 Dose: 150 mg Warfarin Sodium (Coumadin) 4 mg PO 1800 [facility] Last Admin: 08/02/17 18:21 Dose: 4 mg - Labs Labs: 08/03/17 06:15 PT 35.4 SECONDS (9.4-12.5) H 08/02/17 06:00 INR 3.01 (0.93-1.08) H 08/02/17 06:00 APTT 31.2 Seconds (25.1-36.5) 08/01/17 11:42 - Constitutional Appears: Non-toxic, Chronically Ill - Head Exam Head Exam: NORMAL INSPECTION - ENT Exam ENT Exam: Mucous Membranes Moist - Neck Exam Neck Exam: absent: Lymphadenopathy, Meningismus - Respiratory Exam Respiratory Exam: Decreased Breath Sounds, Wheezes - Cardiovascular Exam Cardiovascular Exam: +S1, +S2 - GI/Abdominal Exam GI & Abdominal Exam: Soft. absent: Tenderness Assessment and Plan - Assessment and Plan (Free Text) Plan: Assessment systemic inflammatory response syndrome probably due to acute on chronic CHF, slowly improving chronic left leg wounds history of sepsis due to persistent E. faecalis bacteremia, no vegetations or endocarditis noted on CORA S/P AICD placement HTN DM COPD atrial fibrillation on anticoagulation chronic CHF chronic leg wound S/P gastric bypass surgery S/P left leg thrombectomy Plan on Cefepime and Doxycycline; blood cx are negative, PCT is <0.05 - will d/c antibiotics and observe continue local wound care on the left leg by Podiatry will monitor clinically
[2017-08-03] MEDS: Promethazine 6.25 MG/5 ML CUP PO PRN (13:20)
--- NOTE | 2017-08-03 15:20 | PN ---
DATE: 08/03/2017 REASON FOR CONSULTATION AND FOLLOWUP: Decompensated congestive heart failure, [id number] secondary to systolic dysfunction, nonischemic cardiomyopathy, atrial fibrillation, history of radiofrequency ablation, possible bronchitis, early pneumonia. SUBJECTIVE: Complained of cough. Denies any chest pain, shortness of breath or any palpitation. PHYSICAL EXAMINATION: VITAL SIGNS: Temperature afebrile, heart rate 73, blood pressure 134/84. HEENT: PERRLA, intact. NECK: Supple. No carotid bruit or thyromegaly. CHEST: Clear to auscultation. HEART: S1 and S2 regular. ABDOMEN: Soft. EXTREMITIES: Clubbing and cyanosis negative. LABORATORY DATA: Blood workup as follows; WBC 11.3, hemoglobin 12.1, hematocrit 38.4, platelet count 178. INR 3. Chemistry shows sodium 141, potassium 3.9, chloride , carbon dioxide , anion gap of 19, BUN 26, creatinine 1.1. IMPRESSION: Acute bronchitis rule out pneumonia; congestive heart failure, [id number] secondary to systolic dysfunction; decreased left ventricular function; nonischemic cardiomyopathy; morbid obesity; diabetes; hypertension; hyperlipidemia; history of peripheral arterial disease status post left lower extremity thrombectomy with acute ischemia, status post deep venous thrombosis of right lower extremity, history of paroxysmal atrial fibrillation status post radiofrequency ablation. RECOMMENDATION: Discontinue Primacor. Now continue anticoagulation . Continue spironolactone. Continue Lasix. Discontinue telemetry. Monitor electrolytes. We will follow with you. We will discontinue telemetry. Thank you, Dr. Villagomez, for providing us the opportunity in taking care of the patient, Pete Johnson. Tia Rajan MD
--- NOTE | 2017-08-03 18:48 | PN ---
DATE: 08/03/2017 SUBJECTIVE: The patient has no complaints of any chest pain, no shortness of breath, no headaches. PHYSICAL EXAMINATION: VITAL SIGNS: Temperature is 97, pulse of 66, blood pressure is 115/66, respirations 18. GENERAL: The patient is lying in bed, flat, comfortable. HEENT: No oral lesion. Anicteric sclerae. Moist mucosa. NECK: No JVD, adenopathy, or thyromegaly. CARDIOVASCULAR: S1 and S2, regular. No murmurs, rubs, or gallops. LUNGS: Clear to auscultation bilaterally. No wheeze, rales, or rhonchi. ABDOMEN: Bowel sounds are positive, soft, nontender and nondistended. EXTREMITIES: No cyanosis, clubbing or edema. LABORATORY DATA: White count of 11.3, hemoglobin 12.1, creatinine is 1.1. Blood culture x2 is negative. ASSESSMENT: 1. Acute congestive heart failure secondary to systolic dysfunction. 2. Acute chronic obstructive pulmonary disease. 3. Diabetes type 2. 4. Hypertension. 5. Atrial fibrillation, on Coumadin. 6. Peripheral arterial disease. 7. Pacemaker/defibrillator. 8. Restless legs syndrome. 9. Morbid obesity with a body mass index of 43. 10. History of gastric bypass. PLAN: The patient is currently comfortable. I did speak to Dr. Rajan regarding the case today. The patient is going to continue with Amaryl for his diabetes. The patient is on Aldactone. This was started by Dr. Rajan. The patient is on Coumadin. The patient is on metformin for his diabetes. He is receiving Lasix daily. The patient is on magnesium replacement. He is on prednisone for his wheezing. He was given a dose of metolazone yesterday and also given this again by Dr. Rajan. He is on lisinopril. The patient's PT/INR done tomorrow. Axel Villagomez MD
--- NOTE | 2017-08-03 20:35 | PN ---
DATE: 08/03/2017 PULMONARY PROGRESS NOTE REFERRING PHYSICIAN: Axel Villagomez MD SUBJECTIVE: He is sitting on the side of the bed having lunch. Night was unremarkable. Did not use CPAP. No rhinitis. Mild cough. No nausea. No vomiting. No diarrhea. Still has a leg swelling. Nonhealing leg ulcer. PHYSICAL EXAMINATION GENERAL: In no acute distress. VITAL SIGNS: Temperature is 98, heart rate is 66, respiratory rate is 18, blood pressure 115/66, pulse ox 97% on nasal cannula. HEENT: Moist mucous membrane. Crowded airway. Mallampati score is 4. NECK: Supple. No JVD. LUNGS: Have a fair airflow with rhonchi. HEART: S1 and S2. ABDOMEN: Soft and nontender. No organomegaly. EXTREMITIES: Does have edema. Has a nonhealing ulcer. NEUROLOGICAL: Awake and alert. Follows simple command. MEDICATIONS: He is on Aldactone 25 mg twice a day, glimepiride 4 mg daily, Ativan 1 mg twice a day p.r.n., Cardizem 30 mg every 12 hour, Coreg 3.125 mg twice a day, Coumadin 4 mg given yesterday, trazodone 150 mg daily, DuoNeb every 4 hours p.r.n., every 8 hours [id number], metformin 1000 mg twice a day, insulin coverage, Lasix 40 mg twice a day, Levemir 30 units subcu before breakfast daily, mag oxide 400 mg twice a day, nasal saline one spray each nostril twice a day, Percocet 10/325 one tab every 4 hours p.r.n., Phenergan 6.25 mg every 4 hour p.r.n., Pletal 100 mg twice a day, prednisone 40 mg daily, Singulair 10 mg daily, Tylenol p.r.n., Zaroxolyn 5 mg daily, Zestril 2.5 mg daily. His Primacor has been discontinued. LABORATORY DATA: Reviewed and noted. Sodium 141, potassium 3.9, chloride 99, carbon dioxide 29, BUN 29, creatinine 1.1, glucose 159, calcium 8.9, phosphorus 3.4, magnesium 1.8. Microbiology: Blood culture has been negative. IMPRESSION AND PLAN: Cardiomyopathy, atrial fibrillation, history of ablation therapy, history of automatic implantable cardioverter-defibrillator placement, hypertension, chronic obstructive lung disease, sleep apnea syndrome, obesity, history of thromboembolic disease requiring thrombectomy, peripheral vascular disease, nonhealing ulcer, history of bacteremia. Pulmonary point of view, doing okay. We will continue p.o. and inhaled bronchodilator. Keep head at 45 degrees. We will encourage him to use CPAP, gastric prophylaxis, anticoagulation. Follow up labs in the morning. May decrease Lasix to three times a day, follow electrolyte closely, fall precaution. Thank you and we will follow with you. Tia Godinez MD
[2017-08-03] MEDS: Albuterol-Ipratrop 3 mg / 0.5 (3 ml) UD IH PRN (23:35)
[2017-08-04] MEDS: Oxycodone/Acetaminophen 10/325 mg Tab PO PRN ×2 (01:16→20:01)
[2017-08-04 07:49] LABS: BASO # 0.03 K/mm3 (0.0-2.0); BASO % 0.2 % (0.0-3.0); EOS # 0.2 (0.0-0.7); EOS % 1.3 % (1.5-5.0); GRAN # 10.04 (1.4-6.5); HEMOGLOBIN 12.9 g/dL (14.0-18.0); LYMPH # 1.2 (1.2-3.4); LYMPH % 9.7 % (22.0-35.0); MEAN CELL VOLUME 80.7 fl (80.0-105.0); MEAN CORPUSCULAR HEMOGLOBIN 26.2 pg (25.0-35.0); MEAN CORPUSCULAR HGB CONC 32.5 g/dl (31.0-37.0); MEAN PLATELET VOLUME 10.8 fl (7.0-11.0); MONO % 7.8 % (1.0-6.0); RBC 4.92 10^6/uL (3.5-6.1); RED CELL DISTRIBUTION WIDTH 15.4 % (11.5-14.5); WHITE BLOOD COUNT 12.4 10^3/ul (4.5-11.0)
[2017-08-04 07:56] LABS: INR 2.68 (0.93-1.08); PROTHROMBIN TIME 31.5 SECONDS (9.4-12.5)
[2017-08-04] MEDS: Albuterol-Ipratrop 3 mg / 0.5 (3 ml) UD IH SCH ×3 (08:18→19:42)
[2017-08-04] MEDS: Insulin Reg-MEDIUM-Coverage SC SCH ×4 (08:20→22:00)
[2017-08-04] MEDS: Insulin Detemir 100 units/ml Vial (Levemir) SC SCH ×2 (08:36→17:17)
[2017-08-04] MEDS: Cilostazol 100 mg Tab UD PO SCH ×2 (09:23→17:16)
--- NOTE | 2017-08-04 09:48 | CP.PCM.PN ---
<Kemi Castleah - Last Filed: 08/04/17 09:43> Subjective - Date & Time of Evaluation Date of Evaluation: 08/04/17 Time of Evaluation: 09:44 - Subjective Subjective: Podiatry Progress Note- Dr. Stein 56 year old male was seen at bedside with attending, Dr. Stein regarding b/l lower extremity swelling. Pt seen resting comfortably in bed at time of visit, appears AAOx3 and in NAD. Patient reports that the wounds on left leg is healed. He also admits that the swelling to his legs is better. Currently denies any n/v/f/c/sob/cp. Objective - Vital Signs/Intake and Output Vital Signs (last 24 hours): Temp Pulse Resp BP Pulse Ox 98.2 F 63 18 92/58 L 97 08/04/17 08:21 08/04/17 09:31 08/04/17 08:21 08/04/17 09:31 08/04/17 08:21 - Medications Medications: Current Medications Acetaminophen (Tylenol 325mg Tab) 650 mg PO Q4H PRN PRN Reason: Fever >100.4 F Albuterol/Ipratropium (Duoneb 3 Mg/0.5 Mg (3 Ml) Ud) 3 ml IH Q4H PRN PRN Reason: Shortness of Breath Last Admin: 08/03/17 23:35 Dose: 3 ml Albuterol/Ipratropium (Duoneb 3 Mg/0.5 Mg (3 Ml) Ud) 3 ml IH TIDRESP [facility] Last Admin: 08/04/17 08:18 Dose: 3 ml Carvedilol (Coreg) 3.125 mg PO BID [facility] Last Admin: 08/04/17 09:31 Dose: 3.125 mg Cilostazol (Pletal) 100 mg PO BID [facility] Last Admin: 08/04/17 09:23 Dose: 100 mg Diltiazem HCl (Cardizem) 30 mg PO BID [facility] Last Admin: 08/04/17 09:20 Dose: Not Given Furosemide (Lasix) 40 mg IV Q8 [facility] Last Admin: 08/04/17 09:21 Dose: Not Given Gabapentin (Neurontin) 300 mg PO BID [facility] PRN Reason: Protocol Last Admin: 08/04/17 09:19 Dose: 300 mg Glimepiride (Amaryl) 4 mg PO DAILY [facility] Last Admin: 08/04/17 09:19 Dose: 4 mg Insulin Detemir (Levemir) 30 unit SC ACBD [facility] Last Admin: 08/04/17 08:36 Dose: 30 unit Insulin Human Regular (Humulin R Med) 0 units SC ACHS [facility] PRN Reason: Protocol Last Admin: 08/04/17 08:20 Dose: Not Given Lisinopril (Zestril) 2.5 mg PO DAILY [facility] Last Admin: 08/04/17 09:30 Dose: 2.5 mg Lorazepam (Ativan) 1 mg PO BID PRN; Protocol PRN Reason: Anxiety Last Admin: 08/04/17 01:15 Dose: 1 mg Metformin HCl (Glucophage) 1,000 mg PO BID [facility] Last Admin: 08/04/17 09:23 Dose: 1,000 mg Montelukast Sodium (Singulair) 10 mg PO HS [facility] Last Admin: 08/03/17 21:45 Dose: 10 mg Oxycodone/Acetaminophen (Percocet 10/325 Mg Tab) 1 tab PO Q4H PRN PRN Reason: Pain, moderate (4-7) Last Admin: 08/04/17 01:16 Dose: 1 tab Prednisone (Prednisone Tab) 40 mg PO DAILY [facility] Last Admin: 08/04/17 09:18 Dose: 40 mg Promethazine HCl (Phenergan Syrup) 6.25 mg PO Q4H PRN PRN Reason: Cough Last Admin: 08/03/17 13:20 Dose: 6.25 mg Ropinirole HCl (Requip) 0.5 mg PO HS [facility] Last Admin: 08/03/17 21:37 Dose: 0.5 mg Sodium Chloride ([place] Nasal [place]) 1 ml NS BID [facility] Last Admin: 08/03/17 17:34 Dose: 2 spray Spironolactone (Aldactone) 25 mg PO BID [facility] Last Admin: 08/04/17 09:22 Dose: Not Given Trazodone HCl (Desyrel) 150 mg PO HS [facility] Last Admin: 08/04/17 01:16 Dose: 150 mg Warfarin Sodium (Coumadin) 4 mg PO 1800 [facility] Last Admin: 08/03/17 17:37 Dose: 4 mg - Labs Labs: 08/04/17 07:00 08/03/17 06:15 PT 31.5 SECONDS (9.4-12.5) H 08/04/17 07:00 INR 2.68 (0.93-1.08) H 08/04/17 07:00 APTT 31.2 Seconds (25.1-36.5) 08/01/17 11:42 - Constitutional Appears: Well, Non-toxic, No Acute Distress - Extremities Exam Additional comments: lower extremity focused exam: VASC: DP and PT pulses non-palpable b/l, TG wnl, CFT < 3 sec to all digits, bilateral +1 pitting edema NEURO: Gross sensation diminished bilaterally DERM: Two newly healed lesion with superficial hyperkeratoic layer located to the anterolateral resendiz of left leg. No open lesions, no erythema, ascending cellulitis, no fluctuance, no malodor, no acute clinical signs of infection ORTHO: No tenderness to palpation anterolateral leg pre-ulcerative lesions - Neurological Exam Neurological Exam: Alert, Awake, Oriented x3 - Psychiatric Exam Psychiatric exam: Normal Affect, Normal Mood Assessment and Plan - Assessment and Plan (Free Text) Assessment: 56 year old male with left leg preulcerative lesions secondary to swelling Plan: Patient examined and evaluated with attending Dr. Stein Discussed plan in detail with attending Labs and vital reviewed Patient lesions cleansed with saline, optifoam applied to cover healed ulcerations LUCIE compression applied. To be worn all day. To be removed prior to sleeping and reapplied in the morning Thank you for allowing us to take part in patient's care Please reconsult as necessary <Tha Stein - Last Filed: 08/07/17 11:48> Objective - Vital Signs/Intake and Output Vital Signs (last 24 hours): Temp Pulse Resp BP Pulse Ox 97.9 F 80 20 137/72 98 08/06/17 14:00 08/06/17 14:00 08/06/17 14:00 08/06/17 14:00 08/06/17 14:00 - Labs Labs: 08/04/17 07:00 08/04/17 10:30 PT 24.0 SECONDS (9.4-12.5) H 08/06/17 15:38 INR 2.07 (0.93-1.08) H 08/06/17 15:38 APTT 30.9 Seconds (25.1-36.5) 08/06/17 15:38 Attending/Attestation - Attestation I have personally seen and examined this patient.: Yes I have fully participated in the care of the patient.: Yes I have reviewed all pertinent clinical information, including history, physical exam and plan: Yes
[2017-08-04 11:21] LABS: BLOOD UREA NITROGEN 37 mg/dL (7-21); CALCIUM 9.4 mg/dL (8.4-10.5); GFR AFRICAN-AMERICAN > 60; GFR NON-AFRICAN AMERICAN > 60
--- NOTE | 2017-08-04 14:33 | PN ---
DATE: 08/04/2017 SUBJECTIVE: The patient has no complaints of any chest pain. No shortness of breath. No headaches or dizziness. PHYSICAL EXAMINATION: VITAL SIGNS: GENERAL: The patient is lying in bed, flat, comfortable. HEENT: No oral lesion. Anicteric sclerae. Moist mucosa. NECK: No JVD, adenopathy, or thyromegaly. CARDIOVASCULAR: S1 and S2, regular. No murmurs, rubs, or gallops. LUNGS: Clear to auscultation bilaterally. No wheeze, rales, or rhonchi. ABDOMEN: Bowel sounds are positive, soft, nontender and nondistended. EXTREMITIES: No cyanosis, clubbing. Lower extremity, there is 2+ edema. ASSESSMENT: 1. Acute congestive heart failure secondary to systolic dysfunction. 2. Acute chronic obstructive pulmonary disease. 3. Diabetes type 2. 4. Hypertension. 5. Atrial fibrillation, on Coumadin. 6. Peripheral arterial disease. 7. Pacemaker/defibrillator. 8. Restless legs syndrome. 9. History of gastric bypass. 10. Morbid obesity with a body mass index of 43. PLAN: The patient is currently comfortable. He is receiving Aldactone. He is going to continue with Amaryl for his diabetes. The patient is on Coumadin for his anticoagulation. His INR is therapeutic at 2.68. We will increase his Coumadin dosage as 4 is most likely too low for him. He is going to be on trazodone for sleeping and his anxiety. He is on Lasix 3 times a day. He is getting metolazone as well intermittently. He says he does have good urine output. He is on Zestril for afterload reduction. He says his coughing is better. He is being followed by Cardiology and by Pulmonology. I do appreciate their input. His blood cultures have been negative. He is on metformin for his diabetes. His sugars are under control. He is also on insulin sliding scale. Axel Villagomez MD
--- NOTE | 2017-08-05 02:59 | PN ---
DATE: 08/04/2017 PULMONARY PROGRESS NOTE REFERRING PHYSICIAN: Axel Villagomez MD. SUBJECTIVE: Patient is sitting up in a chair. Night was unremarkable. Still have a cough and clear sputum. No nausea, no vomiting. No diarrhea. Still has leg swelling. OBJECTIVE: GENERAL: In no acute distress. VITAL SIGNS: Temperature is 98, heart rate is 70, respiratory rate is 20, blood pressure 107/67, pulse ox 95% on room air. HEENT: Moist mucous membrane. Crowded airway. Mallampati score is 4. NECK: Supple. No JVD. LUNGS: Has a scattered rhonchi, prolonged expiratory phase. HEART: S1 and S2. ABDOMEN: Soft, nontender, no organomegaly. EXTREMITIES: Still have edema, nonhealing ulcer. NEUROLOGIC: Awake, alert, follows simple command. MEDICATIONS: He is on Aldactone 25 mg twice a day, glimepiride 4 mg daily, lorazepam 1 mg twice a day p.r.n., diltiazem 30 mg twice a day, Coreg 3.125 mg twice a day, Coumadin 6 mg, trazodone 150 mg at bedtime, DuoNeb every 4 hours p.r.n., also every 8 hours [id number], metformin 1000 mg twice a day, insulin coverage, Lasix 40 mg every 8 hours, Levemir 30 units before meals twice a day, gabapentin 300 mg twice a day, nasal saline twice a day, Percocet 10/325 1 tablet every 4 hours p.r.n., promethazine 6.25 mg every 4 hours p.r.n., Pletal 100 mg twice a day, prednisone 40 mg daily, Requip 0.5 mg at bedtime, Singulair 10 mg daily, Tylenol p.r.n., Zestril 2.5 mg daily. LABORATORY DATA: Shows hemoglobin 12.9, hematocrit 39.7, WBC 12.4, platelet count is 192. INR 2.68. Sodium 139, potassium 4.3, chloride 93, bicarbonate 33, BUN 37, creatinine 1.1, glucose 87, calcium is 9.4. Microbiology: Blood cultures have been negative. IMPRESSION AND PLAN: Cardiomyopathy, atrial fibrillation, history of ablation therapy, has automatic implantable cardioverter-defibrillator, hypertension, chronic lung disease, sleep apnea syndrome, obesity, history of thromboembolic disease requiring thrombectomy, peripheral vascular disease, nonhealing leg ulcer. Pulmonary point of view, he still has some cough and wheezing. Will continue prednisone on inhaled bronchodilator, add Mucomyst inhaled twice a day, also add inhaled steroids. Spoke to the patient about continuous positive airway pressure. Encourage him to use continuous positive airway pressure. Spoke to nursing staff to call respiratory therapist to bring his continuous positive airway pressure. Continue diuretics. Follow up labs in the morning. Elevate lower extremity. Thank you and we will follow with you. Tia Godinez MD
[2017-08-05] MEDS: Insulin Reg-MEDIUM-Coverage SC SCH ×4 (08:06→22:07)
[2017-08-05] MEDS: Insulin Detemir 100 units/ml Vial (Levemir) SC SCH ×2 (08:31→17:40)
[2017-08-05] MEDS: Albuterol-Ipratrop 3 mg / 0.5 (3 ml) UD IH SCH ×3 (09:20→19:18)
[2017-08-05] MEDS: Budesonide 0.5 mg/2 ml Inhal Susp UD IH SCH ×2 (09:20→19:18)
[2017-08-05] MEDS: Acetylcysteine 20% Inhal Soln (4ml) IH SCH ×2 (09:21→19:18)
[2017-08-05] MEDS: MethylPREDNISolone 40 mg Vial IVP SCH (10:14)
[2017-08-05] MEDS: Cilostazol 100 mg Tab UD PO SCH ×2 (10:15→17:50)
[2017-08-05] MEDS: Promethazine 6.25 MG/5 ML CUP PO PRN (10:20)
[2017-08-05 11:05] LABS: URINE BILIRUBIN NEGATIVE (NEGATIVE); URINE BLOOD NEGATIVE (NEGATIVE); URINE GLUCOSE (UA) NEGATIVE (NEGATIVE); URINE LEUKOCYTE ESTERASE NEGATIVE Leu/uL (NEGATIVE); URINE PROTEIN NEGATIVE mg/dL (<30 mg/dL); URINE UROBILINOGEN 0.2 E.U./dL (<1 E.U./dL)
[2017-08-05 11:07] LABS: URINE APPEARANCE CLEAR (CLEAR); URINE COLOR YELLOW (YELLOW)
--- NOTE | 2017-08-05 12:05 | PN ---
DATE: 08/05/2017 SUBJECTIVE: The patient is in bed, in no acute distress, nontoxic. PHYSICAL EXAMINATION: GENERAL: The patient is in bed, still feels congested. VITAL SIGNS: Temperature of 97, blood pressure is 116/70, respiratory rate of 20. HEENT: Unremarkable. NECK: Supple. LUNGS: Have decreased breath sounds. HEART: Normal S1, S2. ABDOMEN: Soft, nontender. LABORATORY DATA: Reveals a white count of 12,400, hemoglobin of 12, platelets of 192 and chemistries reveal BUN of 37, creatinine of 1.1. Microbiology reveals the blood cultures are no growth. ASSESSMENT AND PLAN: This is a 57-year-old with systemic inflammatory response syndrome due to acute on chronic congestive heart failure, slowly improving; chronic left leg wound; history of persistent Enterococcus faecalis bacteremia with negative vegetation; no endocarditis on transesophageal echocardiogram; status post automatic implantable cardioverter defibrillator placement in a patient with hypertension; diabetes; chronic obstructive pulmonary disease; atrial fibrillation, on anticoagulation; currently now off of antibiotics, afebrile, chronic changes in the lower extremities, however, is at risk for developing nosocomial infections and the patient's white count of 12,400 as of yesterday. We will check on the CBC and follow closely with you. Nikolay Barba MD
--- NOTE | 2017-08-05 12:57 | PN ---
DATE: 08/05/2017 SUBJECTIVE: The patient has no complaints of any chest pain. No shortness of breath. No headaches or dizziness. PHYSICAL EXAMINATION: VITAL SIGNS: Temperature is 97.7, pulse is 72, blood pressure 116/78, respirations 20. GENERAL: The patient is lying in bed, flat, comfortable. HEENT: No oral lesion. Anicteric sclerae. Moist mucosa. NECK: No JVD, adenopathy, or thyromegaly. CARDIOVASCULAR: S1 and S2, regular. No murmurs, rubs, or gallops. LUNGS: Bilateral wheezing. No rales or rhonchi. ABDOMEN: Bowel sounds are positive, soft, nontender and nondistended. EXTREMITIES: Lower extremities, there is 2+ edema. LABORATORY DATA: White count of 12.4, hemoglobin 12.9. Creatinine is 1.1. ASSESSMENT: 1. Acute congestive heart failure secondary to systolic dysfunction. 2. Acute chronic obstructive pulmonary disease. 3. Hypertension. 4. Diabetes type 2. 5. Atrial fibrillation, on Coumadin. 6. Peripheral arterial disease. 7. Pacemaker/defibrillator. 8. Restless legs syndrome. 9. Morbid obesity with body mass index of 43. 10. History of gastric bypass. PLAN: The patient is currently receiving Amaryl for diabetes. He is going to continue with Aldactone. Patient is on diltiazem for atrial fibrillation. He is on Coumadin for the atrial fibrillation. The patient is on trazodone for anxiety, this will be continued. He is receiving metformin for his diabetes. He is on Lasix every 8 hours. He is on prednisone daily. He is receiving lisinopril. I will place him on IV Solu-Medrol. Axel Villagomez MD
--- NOTE | 2017-08-05 19:07 | PN ---
DATE: 08/05/2017 PULMONARY PROGRESS NOTE REFERRING PHYSICIAN: Axel Villagomez MD SUBJECTIVE: He is lying in the bed, head at 45 degrees,elevated lower extremity. Night was unremarkable. Used CPAP over 5-1/2 hours. No headache. No rhinitis. Still has some cough and sputum, but improved. No nausea. No vomiting. No diarrhea. Still has leg swelling, nonhealing leg ulcer. PHYSICAL EXAMINATION: GENERAL: In no acute distress. VITAL SIGNS: Temperature 98, heart rate 76, respiratory rate is 20, blood pressure 110/62, pulse ox 96% on room air. HEENT: Moist mucous membranes. Crowded airway. Mallampati score is 4. NECK: Supple. No JVD. LUNGS: Fair airflow with rhonchi. HEART: S1 and S2. ABDOMEN: Soft and nontender. No organomegaly. EXTREMITIES: Edema with nonhealing ulcer. NEUROLOGICAL: Awake and alert. Follows simple command. MEDICATIONS: Mucomyst 20% inhaled twice a day, Aldactone 25 mg twice a day, glimepiride 4 mg daily, Ativan 1 mg twice a day p.r.n., Cardizem 30 mg twice a day, Coreg 3.125 mg twice a day, Coumadin 6 mg will be given tonight, trazodone 150 mg at bedtime, DuoNeb every 4 hours p.r.n. and every 8 hours [id number], metformin 1000 mg twice a day, insulin coverage, Lasix 40 mg every 8 hours, Levemir 30 units subcu a.c.b.d., Neurontin 300 mg twice a day, nasal saline one spray to each nostril twice a day, Percocet 10/325 one tablet every 4 hours p.r.n., promethazine 6.25 mg every 4 hours, Pletal 100 mg twice a day, Pulmicort inhaled twice a day, ReQuip 0.5 mg at bedtime, Singulair 10 mg daily, Solu-Medrol 40 mg IV daily started now, Tylenol p.r.n., Zestril 2.5 mg daily. LABORATORY DATA: Reviewed and noted. No new lab is available since yesterday. Microbiology, blood cultures have been negative. IMPRESSION AND PLAN: Cardiomyopathy, atrial fibrillation, history of ablation therapy, has automatic implantable cardioverter-defibrillator, hypertension, chronic lung disease, sleep apnea syndrome, obesity, history of thromboembolic disease requiring thrombectomy, peripheral vascular disease, nonhealing ulcer. Pulmonary point of view, little better. Still has cough, noted steroid used, changed to IV Solu-Medrol. Encourage CPAP use. Keep head at 45 degrees. Anticoagulation. Gastrointestinal prophylaxis. Thank you and we will follow with you. Tia Godinez MD
--- NOTE | 2017-08-06 05:46 | CP.PCM.PN ---
Subjective - Date & Time of Evaluation Date of Evaluation: 08/06/17 Time of Evaluation: 06:35 - Subjective Subjective: Lying in bed,easily awaken, denies chest pain, denies shortness of breath, Reason for consultation and follow up: Cardiac evaluation, chest pain,shortness of breath, Atrial fibrillation, COPD, CHF, coronary artery disease, AICD/PPM, hypertension, hyperlipidemia, gastric bypass Seen and examined by me and Dr. Rajan Objective - Vital Signs/Intake and Output Vital Signs (last 24 hours): Temp Pulse Resp BP Pulse Ox 98.7 F 69 20 94/59 L 96 08/05/17 22:00 08/06/17 00:17 08/05/17 22:00 08/06/17 05:39 08/05/17 22:00 Intake and Output: 08/05/17 08/06/17 18:59 06:59 Intake Total 960 Balance 960 - Medications Medications: Current Medications Acetaminophen (Tylenol 325mg Tab) 650 mg PO Q4H PRN PRN Reason: Fever >100.4 F Acetylcysteine (Acetylcysteine 20%) 3 ml IH BID [facility] Last Admin: 08/05/17 19:18 Dose: 3 ml Albuterol/Ipratropium (Duoneb 3 Mg/0.5 Mg (3 Ml) Ud) 3 ml IH Q4H PRN PRN Reason: Shortness of Breath Last Admin: 08/03/17 23:35 Dose: 3 ml Albuterol/Ipratropium (Duoneb 3 Mg/0.5 Mg (3 Ml) Ud) 3 ml IH TIDRESP [facility] Last Admin: 08/05/17 19:18 Dose: 3 ml Budesonide (Pulmicort Respules) 0.5 mg IH [id number] [facility] Last Admin: 08/05/17 19:18 Dose: 0.5 mg Carvedilol (Coreg) 3.125 mg PO BID [facility] Last Admin: 08/05/17 17:49 Dose: 3.125 mg Cilostazol (Pletal) 100 mg PO BID [facility] Last Admin: 08/05/17 17:50 Dose: 100 mg Diltiazem HCl (Cardizem) 30 mg PO BID [facility] Last Admin: 08/05/17 17:49 Dose: 30 mg Furosemide (Lasix) 40 mg IV Q8 [facility] Last Admin: 08/06/17 05:39 Dose: Not Given Gabapentin (Neurontin) 300 mg PO BID [facility] PRN Reason: Protocol Last Admin: 08/05/17 17:48 Dose: 300 mg Glimepiride (Amaryl) 4 mg PO DAILY [facility] Last Admin: 08/05/17 10:28 Dose: 4 mg Insulin Detemir (Levemir) 30 unit SC ACBD [facility] Last Admin: 08/05/17 17:40 Dose: 30 unit Insulin Human Regular (Humulin R Med) 0 units SC ACHS [facility] PRN Reason: Protocol Last Admin: 08/05/17 22:07 Dose: 2 units Lisinopril (Zestril) 2.5 mg PO DAILY [facility] Last Admin: 08/05/17 10:20 Dose: 2.5 mg Lorazepam (Ativan) 1 mg PO BID PRN; Protocol PRN Reason: Anxiety Last Admin: 08/05/17 22:18 Dose: 1 mg Metformin HCl (Glucophage) 1,000 mg PO BID [facility] Last Admin: 08/05/17 17:50 Dose: 1,000 mg Methylprednisolone (Solu-Medrol) 40 mg IVP DAILY [facility] Last Admin: 08/05/17 10:14 Dose: 40 mg Montelukast Sodium (Singulair) 10 mg PO HS [facility] Last Admin: 08/05/17 22:10 Dose: 10 mg Promethazine HCl (Phenergan Syrup) 6.25 mg PO Q4H PRN PRN Reason: Cough Last Admin: 08/05/17 10:20 Dose: 6.25 mg Ropinirole HCl (Requip) 0.5 mg PO HS [facility] Last Admin: 08/05/17 22:11 Dose: 0.5 mg Sodium Chloride ([place] Nasal [place]) 1 ml NS BID [facility] Last Admin: 08/05/17 17:51 Dose: 1 spray Spironolactone (Aldactone) 25 mg PO BID [facility] Last Admin: 08/05/17 17:49 Dose: 25 mg Trazodone HCl (Desyrel) 150 mg PO HS [facility] Last Admin: 08/05/17 22:08 Dose: 150 mg Warfarin Sodium (Coumadin) 6 mg PO 1800 [facility] Last Admin: 08/05/17 17:50 Dose: 6 mg - Labs Labs: 08/04/17 07:00 08/04/17 10:30 PT 31.5 SECONDS (9.4-12.5) H 08/04/17 07:00 INR 2.68 (0.93-1.08) H 08/04/17 07:00 APTT 31.2 Seconds (25.1-36.5) 08/01/17 11:42 - Constitutional Appears: No Acute Distress - Head Exam Head Exam: NORMOCEPHALIC - ENT Exam ENT Exam: Mucous Membranes Moist - Respiratory Exam Respiratory Exam: Decreased Breath Sounds, NORMAL BREATHING PATTERN Additional comments: NC 2/min, BIPAP/CPAP at night - Cardiovascular Exam Cardiovascular Exam: +S1, +S2 - GI/Abdominal Exam GI & Abdominal Exam: Soft, Normal Bowel Sounds - Extremities Exam Additional comments: 2+ edema healed leg ulcer left - Neurological Exam Neurological Exam: Alert, Awake, Oriented x3 - Psychiatric Exam Psychiatric exam: Normal Affect, Normal Mood - Skin Skin Exam: Intact, Normal Color, Warm Assessment and Plan - Assessment and Plan (Free Text) Assessment: A 57 year old male who came in to the ER due to burning chest pain and shortness of breath. history of Atrial fib, COPD, CHF, CAD, AICD/pacemaker, Diabetes, depression, bipolar, anxiety, hyperlipidemia,hypertension, post afib ablation, gastric bypass, DVT, post cardiac cath x 3 with non obstructive coronary artery disease.Decompensated congestive heart failure,given Primacor. Plan: Uses BIPAP/CPAP at night Improved decompensated congestive heart failure Primacor was administered for more or less 48 hours Continue Lasix but decrease frequency.held this morning due to low SBP On Coreg 3.125 mg BID, Cardizem 30 mg BID, Lasix 40 mg IV every 8 hours, Zestril 2.5 mg daily,Aldactone 25 mg BID, Coumadin 6 mg daily PRN Phenergan syrup for cough Continue current treatment Continue current medications Plan and treatment discussed with Dr. Rajan
[2017-08-06] MEDS: Insulin Detemir 100 units/ml Vial (Levemir) SC SCH (07:52)
[2017-08-06] MEDS: Insulin Reg-MEDIUM-Coverage SC SCH ×2 (07:53→12:32)
[2017-08-06] MEDS: Acetylcysteine 20% Inhal Soln (4ml) IH SCH (08:00)
[2017-08-06] MEDS: Budesonide 0.5 mg/2 ml Inhal Susp UD IH SCH (08:03)
[2017-08-06] MEDS: Albuterol-Ipratrop 3 mg / 0.5 (3 ml) UD IH SCH ×2 (08:03→13:20)
[2017-08-06] MEDS: Cilostazol 100 mg Tab UD PO SCH (10:00)
[2017-08-06] MEDS: MethylPREDNISolone 40 mg Vial IVP SCH (10:00)
--- NOTE | 2017-08-06 10:11 | PN ---
DATE: 08/06/2017 SUBJECTIVE: The patient has no complaints of any chest pain. He says he continues to have shortness of breath with exertion. He says his cough is better. PHYSICAL EXAMINATION: VITAL SIGNS: Temperature is 97.4, pulse is 75, blood pressure 94/57, respirations 18. GENERAL: The patient is lying in bed, flat, comfortable. HEENT: No oral lesion. Anicteric sclerae. Moist mucosa. NECK: No JVD, adenopathy, or thyromegaly. CARDIOVASCULAR: S1 and S2, regular. No murmurs, rubs, or gallops. LUNGS: Clear to auscultation bilaterally. No wheeze, rales, or rhonchi. ABDOMEN: Bowel sounds are positive, soft, nontender and nondistended. EXTREMITIES: No cyanosis, clubbing. 1+ edema. LABORATORY DATA: White count of 12.4, hemoglobin 12.9. ASSESSMENT: 1. Acute congestive heart failure secondary to systolic dysfunction. 2. Acute chronic obstructive pulmonary disease. 3. Hypertension. 4. Diabetes type 2. 5. Atrial fibrillation, on Coumadin. 6. Peripheral arterial disease. 7. Pacemaker/defibrillator. 8. Restless legs syndrome. 9. Morbid obesity with a body mass index of 43. 10. History of gastric bypass. PLAN: The patient is currently comfortable. He is on Aldactone. He is going to continue with Cardizem for his atrial fibrillation. The patient is on Coumadin for his anticoagulation. He is going to continue with the trazodone. He is receiving gabapentin for neuropathy. He is on his Pletal for his peripheral arterial disease. He is receiving Solu-Medrol. He is on lisinopril for his hypertension. He is on a heart-healthy diet. He gets CPAP. Axel Villagomez MD
[2017-08-06 15:50] LABS: INR 2.07 (0.93-1.08); PARTIAL THROMBOPLASTIN TIME 30.9 Seconds (25.1-36.5)
[2017-08-06 16:49] VITALS: BP 137/72; PULSE 80; RESP 20; TEMP 97.9; O2SAT 98
--- NOTE | 2017-08-06 18:17 | PN ---
DATE: 08/06/2017 PULMONARY PROGRESS NOTE REFERRING PHYSICIAN: Axel Villagomez MD SUBJECTIVE: He is out of bed to chair. Night was unremarkable. Use CPAP for 5 hours. Cough and wheezing better now. He is on IV steroids. No nausea, no vomiting, no diarrhea. Decreased leg swelling. OBJECTIVE: GENERAL: In no acute distress. VITAL SIGNS: Temperature is 98, heart rate is 80, respiratory rate is 20, blood pressure 137/72, pulse ox 98% on 2 L nasal cannula. HEENT: Moist mucous membrane. Crowded airway. Mallampati score is 4. NECK: Supple. No JVD. LUNGS: Prolonged expiratory phase with some rhonchi. HEART: S1 and S2. ABDOMEN: Soft, nontender, no organomegaly. EXTREMITIES: There is no edema. NEUROLOGIC: Awake, alert, and follow simple commands. MEDICATIONS: Reviewed. Noted no new change in medications since yesterday. LABORATORY DATA: Shows blood sugar this morning 145. Microbiology: Blood culture and sputum culture, there is no growth. IMPRESSION AND PLAN: Cardiomyopathy, atrial fibrillation, history of ablation therapy, history of automatic implantable cardioverter-defibrillator, hypertension, chronic lung disease, sleep apnea syndrome, obesity, history of thromboembolic disease requiring thrombectomy in the past, peripheral vascular disease, nonhealing leg ulcer. Pulmonary point of view, slowly improving. Continue IV and inhaled bronchodilator. Encourage CPAP use. Gastric prophylaxis, anticoagulation. Thank you and we will follow with you. Tia Godinez MD
== END 2017-08-06 17:04 | DRG 292 ==
LOC: ED 09:51 → ERH 12:48 → 2RSO 15:54 → OBSVTOIN 08-02 09:17 → 5RNO 08-04 00:48
PROVIDERS: ADMIT Internal Medicine Nephrology; ATTEND Internal Medicine Nephrology
DX: I11.0 Hypertensive heart disease with heart failure (principal); J44.0 Chronic obstructive pulmonary disease with (acute) lower respiratory infection; L97.909 Non-pressure chronic ulcer of unspecified part of unspecified lower leg with unspecified severity; R78.81 Bacteremia; Z68.41 Body mass index [BMI] 40.0-44.9, adult; I50.23 Acute on chronic systolic (congestive) heart failure; E11.51 Type 2 diabetes mellitus with diabetic peripheral angiopathy without gangrene; E11.622 Type 2 diabetes mellitus with other skin ulcer; E66.01 Morbid (severe) obesity due to excess calories; E78.5 Hyperlipidemia, unspecified; F31.9 Bipolar disorder, unspecified; G25.81 Restless legs syndrome; G47.33 Obstructive sleep apnea (adult) (pediatric); I25.10 Atherosclerotic heart disease of native coronary artery without angina pectoris; I42.9 Cardiomyopathy, unspecified; I48.0 Paroxysmal atrial fibrillation; J20.9 Acute bronchitis, unspecified; K21.9 Gastro-esophageal reflux disease without esophagitis; B95.2 Enterococcus as the cause of diseases classified elsewhere; Z59.9 Problem related to housing and economic circumstances, unspecified; Z79.01 Long term (current) use of anticoagulants; Z86.718 Personal history of other venous thrombosis and embolism; Z87.891 Personal history of nicotine dependence; Z91.14 Patient's other noncompliance with medication regimen; Z91.19 Patient's noncompliance with other medical treatment and regimen; Z95.810 Presence of automatic (implantable) cardiac defibrillator; Z98.84 Bariatric surgery status; Z99.81 Dependence on supplemental oxygen

== ENCOUNTER 2017-08-06 17:10 | Inpatient (IN) | payer OTHER ==
[2017-08-06 17:48] VITALS: BMI 40.5
[2017-08-06] MEDS ORDERED: Albuterol-Ipratrop 3 mg / 0.5 (3 ml) UD IH PRN (17:48)
[2017-08-06] MEDS ORDERED: Promethazine 6.25 MG/5 ML CUP PO PRN (17:48)
[2017-08-06] MEDS: Cilostazol 100 mg Tab UD PO SCH (18:46)
[2017-08-06] MEDS: Acetylcysteine 20% Inhal Soln (4ml) IH SCH ×2 (21:00→21:50)
[2017-08-06] MEDS: Budesonide 0.5 mg/2 ml Inhal Susp UD IH SCH (21:00)
[2017-08-06] MEDS: Albuterol-Ipratrop 3 mg / 0.5 (3 ml) UD IH SCH (21:00)
[2017-08-06] MEDS: Insulin Reg-MEDIUM-Coverage SC SCH (22:12)
[2017-08-07] MEDS: Insulin Reg-MEDIUM-Coverage SC SCH ×4 (06:47→22:12)
[2017-08-07] MEDS: Insulin Detemir 100 units/ml Vial (Levemir) SC SCH ×2 (06:48→17:19)
--- NOTE | 2017-08-07 07:40 | CP.PCM.CON ---
History of Present Illness - History of Present Illness History of Present Illness: Lying in bed, no distress, denies chest pain and shortness of breath Reason for consultation: Continuity of care in TCU. Decompensated heart failure due to systolic dysfunction, cardiomyopathy,COPD, hypertension, diabetes mellitus, Atrial fibrillation, AICD/PPM, gastric bypass, morbid obesity, peripheral arterial disease, non obstructive coronary artery disease. Brief history of present illness: A 57 year old male who came in to the ER due to shortness of breath. History of Decompensated heart failure due to systolic dysfunction, cardiomyopathy,COPD, hypertension, diabetes mellitus, Atrial fibrillation, AICD/PPM, gastric bypass, morbid obesity, peripheral arterial disease,non obstructive coronary artery disease. He was given IV Primacor drip for 48 hours, steroids and antibiotics and gradually resolved pulmonary symptoms. Transferred to TCU for reconditioning. Seen and examined by me and Dr. Rajan Review of Systems - Constitutional Constitutional: As Per HPI - Cardiovascular Cardiovascular: As Per HPI Additional comments: denies shortness of breath right and chest pain right now - Respiratory Respiratory: As Per HPI Additional comments: denies dyspnea, uses BIPAP and CPAP at night - Gastrointestinal Gastrointestinal: As Per HPI - Genitourinary Additional comments: denies any problems - Psychiatric Additional comments: anxiety.depression Past Patient History - Infectious Disease Hx of Infectious Diseases: None - Tetanus Immunizations Tetanus Immunization: Unknown - Past Medical History & Family History Past Medical History?: Yes - Past Social History Smoking Status: Former Smoker - CARDIAC Hx Congestive Heart Failure: Yes Hx Hypertension: Yes - PULMONARY Hx Chronic Obstructive Pulmonary Disease (COPD): Yes - NEUROLOGICAL Hx Dizziness: Yes Other/Comment: numbness both thighs, pt stated "I was in a coma for 2 weeks from seroquel - HEENT Hx HEENT Problems: Yes (eyeglasses, [place]) Other/Comment: eye sx for strabismus - RENAL Hx Chronic Kidney Disease: No - ENDOCRINE/METABOLIC Hx Diabetes Mellitus Type 2: Yes - HEMATOLOGICAL/ONCOLOGICAL Hx Cancer: No - INTEGUMENTARY Hx Dermatological Problems: Yes Other/Comment: ble slight redness discolorations dry skin 1.5cm x 1cm dry deep red scabb to outer lower left leg surrounded by red,dry skin, c/o severe pain - MUSCULOSKELETAL/RHEUMATOLOGICAL Hx Falls: No - GASTROINTESTINAL Hx Gastrointestinal Disorders: No - GENITOURINARY/GYNECOLOGICAL Hx Reproductive Disorders: No - PSYCHIATRIC Hx Anxiety: Yes Hx Bipolar Disorder: Yes Hx Depression: Yes Hx Substance Use: No Other/Comment: quit smoking, drinking, cocaine use 25 yrs ago - SURGICAL HISTORY Hx Mastectomy: No - ANESTHESIA Hx Anesthesia Reactions: No Hx Malignant Hyperthermia: No Meds Allergies/Adverse Reactions: Allergies Allergy/AdvReac Type Severity Reaction Status Date / Time quetiapine fumarate AdvReac ANAPHYLAXIS Verified 08/01/17 16:48 [From Seroquel] wild berries Allergy Intermediate RASH Uncoded 08/01/17 16:48 - Medications Medications: Current Medications Acetaminophen (Tylenol 325mg Tab) 650 mg PO Q4H PRN; Protocol PRN Reason: Fever >100.4 F Acetylcysteine (Acetylcysteine 20%) 3 ml IH BIDRESP [facility] PRN Reason: Protocol Last Admin: 08/06/17 21:50 Dose: Not Given Albuterol/Ipratropium (Duoneb 3 Mg/0.5 Mg (3 Ml) Ud) 3 ml IH [id number] PRN; Protocol PRN Reason: Shortness of Breath Albuterol/Ipratropium (Duoneb 3 Mg/0.5 Mg (3 Ml) Ud) 3 ml IH TIDRESP [facility] PRN Reason: Protocol Last Admin: 08/06/17 21:00 Dose: 3 ml Budesonide (Pulmicort Respules) 0.5 mg IH [id number] [facility] PRN Reason: Protocol Last Admin: 08/06/17 21:00 Dose: 0.5 mg Carvedilol (Coreg) 3.125 mg PO 0800,1800 [facility] PRN Reason: Protocol Last Admin: 08/06/17 18:52 Dose: 3.125 mg Cilostazol (Pletal) 100 mg PO 0730,1700 [facility] PRN Reason: Protocol Last Admin: 08/06/17 18:46 Dose: 100 mg Diltiazem HCl (Cardizem) 30 mg PO BID [facility] PRN Reason: Protocol Last Admin: 08/06/17 18:51 Dose: 30 mg Furosemide (Lasix) 40 mg IVP 0600,1800 [facility] PRN Reason: Protocol Last Admin: 08/07/17 06:45 Dose: 40 mg Gabapentin (Neurontin) 300 mg PO BID [facility] PRN Reason: Protocol Last Admin: 08/06/17 18:47 Dose: 300 mg Glimepiride (Amaryl) 4 mg PO DAILY [facility] PRN Reason: Protocol Insulin Detemir (Levemir) 30 unit SC ACBD [facility] PRN Reason: Protocol Last Admin: 08/07/17 06:48 Dose: 30 unit Insulin Human Regular (Humulin R Med) 0 units SC ACHS [facility] PRN Reason: Protocol Last Admin: 08/07/17 06:47 Dose: 3 units Lisinopril (Zestril) 2.5 mg PO DAILY [facility] PRN Reason: Protocol Lorazepam (Ativan) 1 mg PO BID PRN; Protocol PRN Reason: Anxiety Last Admin: 08/06/17 22:22 Dose: 1 mg Metformin HCl (Glucophage) 1,000 mg PO BID [facility] PRN Reason: Protocol Last Admin: 08/06/17 18:48 Dose: 1,000 mg Methylprednisolone (Solu-Medrol) 40 mg IVP DAILY [facility] PRN Reason: Protocol Montelukast Sodium (Singulair) 10 mg PO HS [facility] PRN Reason: Protocol Last Admin: 08/06/17 22:08 Dose: 10 mg Promethazine HCl (Phenergan Syrup) 6.25 mg PO Q4H PRN; Protocol PRN Reason: Cough Ropinirole HCl (Requip) 0.5 mg PO HS [facility] PRN Reason: Protocol Last Admin: 08/06/17 22:07 Dose: 0.5 mg Sodium Chloride ([place] Nasal [place]) 0 ml NS BID [facility] PRN Reason: Protocol Last Admin: 08/06/17 18:46 Dose: Not Given Spironolactone (Aldactone) 25 mg PO BID [facility] PRN Reason: Protocol Last Admin: 08/06/17 18:52 Dose: 25 mg Trazodone HCl (Desyrel) 150 mg PO HS [facility] PRN Reason: Protocol Last Admin: 08/06/17 22:08 Dose: 150 mg Warfarin Sodium (Coumadin) 6 mg PO 1800 [facility] PRN Reason: Protocol Last Admin: 08/06/17 18:49 Dose: 6 mg Physical Exam - Constitutional Appears: No Acute Distress - Eye Exam Eye Exam: Normal appearance - ENT Exam ENT Exam: Mucous Membranes Moist - Respiratory Exam Respiratory Exam: Decreased Breath Sounds, NORMAL BREATHING PATTERN - Cardiovascular Exam Cardiovascular Exam: +S1, +S2 Additional comments: no JVD PPM/AICD - GI/Abdominal Exam GI & Abdominal Exam: Normal Bowel Sounds, Soft - Extremities Exam Extremities exam: Positive for: normal capillary refill - Neurological Exam Neurological exam: Alert, Oriented x3 - Psychiatric Exam Psychiatric exam: Normal Affect, Normal Mood - Skin Skin Exam: Intact, Normal Color, Warm Results - Vital Signs Recent Vital Signs: Last Vital Signs Temp 97.7 F 08/06/17 18:46 Pulse 72 08/06/17 18:52 Resp 18 08/06/17 18:46 BP 130/80 08/07/17 06:45 Pulse Ox 98 08/06/17 17:20 - Labs Labs: Laboratory Results - last 24 hr 08/06/17 08/07/17 08/07/17 21:55 02:04 05:17 POC Glucose (mg/dL) 388 H 346 H 227 H Assessment & Plan - Assessment and Plan (Free Text) Assessment: A 57 year old male who came in to the ER due to shortness of breath. History of Decompensated heart failure due to systolic dysfunction, cardiomyopathy,COPD, hypertension, diabetes mellitus, Atrial fibrillation, AICD/PPM, gastric bypass, morbid obesity, peripheral arterial disease,non obstructive coronary artery disease. He was given IV Primacor drip for 48 hours, steroids and antibiotics and gradually resolved pulmonary symptoms. Transferred to TCU for reconditioning. Plan: In TCU for reconditioning Much improved from CHF after Primacor drip and Lasix Pulmonary on consult Still uses BIPAP/CPAP at night Physical therapy Cardiac status stable Controlled heart rate and blood pressure Continue current treatment Continue current medications Fall precautions Will follow up Plan and treatment discussed with Dr. Rajan Thank you for giving us the opportunity to take care of Pete Johnson - Date & Time Date: 08/07/17 Time: 06:40
[2017-08-07] MEDS: Acetylcysteine 20% Inhal Soln (4ml) IH SCH ×2 (07:55→21:29)
[2017-08-07] MEDS: Albuterol-Ipratrop 3 mg / 0.5 (3 ml) UD IH SCH ×3 (07:55→21:30)
[2017-08-07] MEDS: Budesonide 0.5 mg/2 ml Inhal Susp UD IH SCH ×2 (07:55→21:30)
[2017-08-07] MEDS: Cilostazol 100 mg Tab UD PO SCH ×2 (08:04→17:21)
[2017-08-07] MEDS: MethylPREDNISolone 40 mg Vial IVP SCH (09:25)
[2017-08-07] MEDS: Oxycodone/Acetaminophen 10/325 mg Tab PO PRN (15:57)
--- NOTE | 2017-08-07 19:58 | CON ---
DATE: 08/07/2017 LOCATION: The patient is seen in 322 today. CHIEF COMPLAINT: Weakness and congestion times several days. HISTORY OF PRESENT ILLNESS: This is a 57-year-old male with past medical history significant for morbid obesity with a BMI of 43. The patient with hypertension, diabetes, chronic obstructive lung disease, atrial fibrillation, on anticoagulation, congestive heart failure, chronic leg wound infections, history of Enterococcus bacteremia, recent hospitalization. The patient also has depression and bipolar, who is admitted with congestive heart failure, was given antibiotics for a short course of therapy. Pneumonia was ruled out. The patient has no fevers or chills. No chest pain. Shortness of breath has improved. REVIEW OF SYSTEMS: A 12-point review systems performed. PAST MEDICAL HISTORY: Significant for chronic obstructive lung disease, diabetic, hypertensive, atrial fibrillation, chronic congestive heart failure, chronic leg wound infection, Enterococcus bacteremia, depression, bipolar, morbid obesity with BMI of 43, atrial fibrillation, on anticoagulation. The patient does not have any kidney disease. PAST SURGICAL HISTORY: Significant for AICD, gastric bypass, and left leg thrombectomy. ALLERGIES: THE PATIENT IS ALLERGIC TO QUETIAPINE AND WILD BERRIES. MEDICATIONS AT HOME: Reviewed, include insulin, Lasix, lisinopril, Coumadin, and metformin. PHYSICAL EXAMINATION: GENERAL: The patient is in bed, in no acute distress, awake and alert, answering questions. VITAL SIGNS: Temperature of 97, blood pressure is 140/90, respiratory rate of 18, heart rate of 78. HEENT: Unremarkable. NECK: Supple. LUNGS: Have decreased breath sounds. HEART: Normal S1, S2. ABDOMEN: Soft, nontender. EXTREMITIES: Examination of lower extremities reveals the patient's legs have chronic changes, no evidence of an acute active infection, is not warm to touch. No discharge and not erythematous. LABORATORY DATA: Reveals a white count of 12,400, hemoglobin of 12, platelets of 192 and chemistries reveals the creatinine is 1.1. Urinalysis is noted and serology, HIV is negative. Influenza is negative. Blood cultures and sputum cultures are negative. ASSESSMENT AND PLAN: This is a 57-year-old male seen earlier today in transitional care in room 322 with morbid obesity with body mass index of 43, hypertension, diabetes, depression, bipolar, chronic obstructive lung disease, atrial fibrillation, congestive heart failure, chronic leg wounds, and history of Enterococcus bacteremia, now presenting to the acute care with systemic inflammatory response syndrome and acute congestive heart failure on top of chronic congestive heart failure and history of Enterococcus bacteremia with a negative transesophageal echocardiogram, was treated for bacteremia and currently now off of antibiotics, afebrile, has mild leukocytosis of 12,400. The patient is at risk for developing nosocomial infections. We will check on the white count. The patient is also on Solu-Medrol, which may explain the leukocytosis. We will check on the repeat white count and we will make further recommendations and check on the final cultures. Cultures from the acute care have no growth in the blood and sputum culture with normal bryce; however, the patient is at risk for developing nosocomial infections. Nikolay Barba MD
--- NOTE | 2017-08-08 00:47 | HP ---
CHIEF COMPLAINT AND HISTORY OF PRESENT ILLNESS: This is a 57-year-old male who had come in to the hospital because he was short of breath. The patient was having an acute CHF exacerbation. He was also having significant lower extremity edema and COPD that was acute. He was treated with steroids, nebulizer treatments. He was given IV diuretics and had improvement of his symptoms. He is on the Transitional Care Unit at this point for continued management of his acute illness as well as for physical therapy. Please see the initial H&P that was dictated on 08/02/2017 that I reviewed and agreed with. PHYSICAL EXAMINATION: VITAL SIGNS: Temperature is 97.6, pulse of 69, blood pressure /64, respirations 20. GENERAL: The patient lying in bed, uncomfortable, and in no acute distress. HEENT: Atraumatic and normocephalic. Anicteric sclerae. Moist mucosa. [place] conjunctivae. No oral lesions. NECK: No JVD, anterior and posterior adenopathy, thyromegaly, or bruits. CARDIOVASCULAR: S1 and S2 regular. No murmur, rubs, or gallop. LUNGS: Clear to auscultation bilaterally. No wheezes, rales, or rhonchi. ABDOMEN: Bowel sounds are positive. Soft, nontender and nondistended. No hepatosplenomegaly. No rebound and no guarding EXTREMITIES: No cyanosis, clubbing. Right lower extremity, 1+ edema. NEUROLOGIC: No facial asymmetry. Tongue is midline. No uvula deviation. Power is 5/5 upper extremity and lower extremity. Sensation intact in upper extremity and lower extremity. PSYCHIATRIC: He is awake, alert and oriented x3. No anxiety or depression. He has normal affect. GENITOURINARY: No CVA tenderness. VASCULAR: 2+ pulses in the carotid pulses and pedal pulses. SKIN: No erythema or nodules SPINE: Shows normal curvature. ASSESSMENT: 1. Acute congestive heart failure secondary to systolic dysfunction. 2. Acute chronic obstructive pulmonary disease. 3. Diabetes type 2. 4. Hypotension. 5. Atrial fibrillation, on Coumadin. 6. Peripheral arterial disease. 7. Pacemaker/defibrillator. 8. Restless legs syndrome. 9. History of gastric bypass. 10. Morbid obesity with a body mass index of 43. PLAN: The patient is on Aldactone. He is going to continue with Amaryl for diabetes. He is on carvedilol. He is going to be on Coumadin for anticoagulation. He is on trazodone. He is going to continue with metformin for his diabetes. He is on Neurontin for his neuropathy. The patient is going to continue with Requip for his restless legs syndrome. He is on Solu-Medrol. He is receiving Zestril. He is getting his fingersticks checked. His edema is improving. Axel Villagomez MD
[2017-08-08] MEDS: Insulin Detemir 100 units/ml Vial (Levemir) SC SCH ×2 (06:54→18:12)
[2017-08-08] MEDS: Insulin Reg-MEDIUM-Coverage SC SCH ×4 (06:56→22:37)
[2017-08-08 07:02] LABS: BASO # 0.02 K/mm3 (0.0-2.0); BASO % 0.1 % (0.0-3.0); EOS # 0.1 (0.0-0.7); EOS % 0.5 % (1.5-5.0); GRAN # 16.6 (1.4-6.5); GRAN % 83.9 % (50.0-68.0); HEMOGLOBIN 13.6 g/dL (14.0-18.0); LYMPH # 1.7 (1.2-3.4); LYMPH % 8.6 % (22.0-35.0); MEAN CELL VOLUME 78.8 fl (80.0-105.0); MEAN CORPUSCULAR HEMOGLOBIN 26.2 pg (25.0-35.0); MEAN CORPUSCULAR HGB CONC 33.2 g/dl (31.0-37.0); MEAN PLATELET VOLUME 10.2 fl (7.0-11.0); MONO # 1.4 (0.1-0.6); MONO % 6.9 % (1.0-6.0); RBC 5.2 10^6/uL (3.5-6.1); RED CELL DISTRIBUTION WIDTH 15.2 % (11.5-14.5); WHITE BLOOD COUNT 19.8 10^3/ul (4.5-11.0)
[2017-08-08 07:11] LABS: INR 2.06 (0.93-1.08); PROTHROMBIN TIME 24.1 SECONDS (9.4-12.5)
--- NOTE | 2017-08-08 07:11 | CP.PCM.PN ---
Subjective - Date & Time of Evaluation Date of Evaluation: 08/08/17 Time of Evaluation: 06:20 - Subjective Subjective: Sleeping but easily awaken, no distress, denies chest pain and shortness of breath Reason for consultation and follow up Continuity of care in TCU. Decompensated heart failure due to systolic dysfunction, cardiomyopathy,COPD, hypertension, diabetes mellitus, Atrial fibrillation, AICD/PPM, gastric bypass, morbid obesity , peripheral arterial disease, non obstructive coronary artery disease. Seen and examined by me and Dr. Rajan Objective - Vital Signs/Intake and Output Vital Signs (last 24 hours): Temp Pulse Resp BP Pulse Ox 97.6 F 69 20 104/60 97 08/07/17 17:57 08/07/17 17:57 08/07/17 17:57 08/08/17 06:31 08/07/17 13:03 - Medications Medications: Current Medications Acetaminophen (Tylenol 325mg Tab) 650 mg PO Q4H PRN; Protocol PRN Reason: Fever >100.4 F Acetylcysteine (Acetylcysteine 20%) 3 ml IH BIDRESP [facility] PRN Reason: Protocol Last Admin: 08/07/17 21:29 Dose: 3 ml Albuterol/Ipratropium (Duoneb 3 Mg/0.5 Mg (3 Ml) Ud) 3 ml IH [id number] PRN; Protocol PRN Reason: Shortness of Breath Albuterol/Ipratropium (Duoneb 3 Mg/0.5 Mg (3 Ml) Ud) 3 ml IH TIDRESP [facility] PRN Reason: Protocol Last Admin: 08/07/17 21:30 Dose: 3 ml Budesonide (Pulmicort Respules) 0.5 mg IH [id number] [facility] PRN Reason: Protocol Last Admin: 08/07/17 21:30 Dose: 0.5 mg Carvedilol (Coreg) 3.125 mg PO 0800,1800 [facility] PRN Reason: Protocol Last Admin: 08/07/17 17:15 Dose: 3.125 mg Cilostazol (Pletal) 100 mg PO 0730,1700 [facility] PRN Reason: Protocol Last Admin: 08/07/17 17:21 Dose: 100 mg Diltiazem HCl (Cardizem) 30 mg PO BID [facility] PRN Reason: Protocol Last Admin: 08/07/17 17:15 Dose: 30 mg Furosemide (Lasix) 40 mg IVP 0600,1800 [facility] PRN Reason: Protocol Last Admin: 08/08/17 06:31 Dose: 40 mg Gabapentin (Neurontin) 300 mg PO BID [facility] PRN Reason: Protocol Last Admin: 08/07/17 17:19 Dose: 300 mg Glimepiride (Amaryl) 4 mg PO DAILY [facility] PRN Reason: Protocol Last Admin: 08/07/17 09:24 Dose: 4 mg Insulin Detemir (Levemir) 30 unit SC ACBD [facility] PRN Reason: Protocol Last Admin: 08/08/17 06:54 Dose: 30 unit Insulin Human Regular (Humulin R Med) 0 units SC ACHS [facility] PRN Reason: Protocol Last Admin: 08/08/17 06:56 Dose: 1 units Insulin Human Regular (Humulin R) 5 units SC DAILY [facility] Lisinopril (Zestril) 2.5 mg PO DAILY [facility] PRN Reason: Protocol Last Admin: 08/07/17 09:25 Dose: 2.5 mg Lorazepam (Ativan) 1 mg PO BID PRN; Protocol PRN Reason: Anxiety Last Admin: 08/07/17 22:12 Dose: 1 mg Metformin HCl (Glucophage) 1,000 mg PO BID [facility] PRN Reason: Protocol Last Admin: 08/07/17 17:16 Dose: 1,000 mg Methylprednisolone (Solu-Medrol) 40 mg IVP DAILY [facility] PRN Reason: Protocol Last Admin: 08/07/17 09:25 Dose: 40 mg Montelukast Sodium (Singulair) 10 mg PO HS [facility] PRN Reason: Protocol Last Admin: 08/07/17 22:10 Dose: 10 mg Oxycodone/Acetaminophen (Percocet 10/325 Mg Tab) 1 tab PO Q6H PRN; Protocol PRN Reason: Pain, severe (8-10) Last Admin: 08/07/17 15:57 Dose: 1 tab Promethazine HCl (Phenergan Syrup) 6.25 mg PO Q4H PRN; Protocol PRN Reason: Cough Ropinirole HCl (Requip) 0.5 mg PO HS [facility] PRN Reason: Protocol Last Admin: 08/07/17 22:11 Dose: 0.5 mg Sodium Chloride ([place] Nasal [place]) 0 ml NS BID [facility] PRN Reason: Protocol Last Admin: 08/07/17 17:20 Dose: 1 spr Spironolactone (Aldactone) 25 mg PO BID [facility] PRN Reason: Protocol Last Admin: 08/07/17 17:14 Dose: 25 mg Trazodone HCl (Desyrel) 150 mg PO HS [facility] PRN Reason: Protocol Last Admin: 08/07/17 22:10 Dose: 150 mg Warfarin Sodium (Coumadin) 6 mg PO 1800 [facility] PRN Reason: Protocol Last Admin: 08/07/17 17:16 Dose: 6 mg - Constitutional Appears: No Acute Distress - Head Exam Head Exam: NORMOCEPHALIC - Eye Exam Eye Exam: Normal appearance - ENT Exam ENT Exam: Mucous Membranes Moist - Respiratory Exam Respiratory Exam: Clear to Ausculation Bilateral, NORMAL BREATHING PATTERN - Cardiovascular Exam Cardiovascular Exam: +S1, +S2 Additional comments: PPM/AICD - GI/Abdominal Exam GI & Abdominal Exam: Soft, Normal Bowel Sounds - Extremities Exam Extremities Exam: Normal Capillary Refill - Neurological Exam Neurological Exam: Alert, Awake, Oriented x3 - Psychiatric Exam Psychiatric exam: Normal Affect, Normal Mood - Skin Skin Exam: Intact, Normal Color, Warm Assessment and Plan - Assessment and Plan (Free Text) Assessment: A 57 year old male who came in to the ER due to shortness of breath. History of Decompensated heart failure due to systolic dysfunction, cardiomyopathy,COPD, hypertension, diabetes mellitus, Atrial fibrillation, AICD/PPM, gastric bypass, morbid obesity, peripheral arterial disease,non obstructive coronary artery disease. He was given IV Primacor drip for 48 hours, steroids and antibiotics and gradually resolved pulmonary symptoms. Transferred to TCU for reconditioning. Plan: Refused BIPAP/CPAP last night No respiratory distress Physical therapy in progress, uses cane to walk Cardiac status stable,CHF stable Controlled heart rate and blood pressure Continue current treatment Continue current medications Continue Coumadin 6 mg daily, INR today-2.0 Watch for any bleeding Fall precautions Discharge planning, seen by Social service. Will follow up Plan and treatment discussed with Dr. Rajan
[2017-08-08] MEDS: Acetylcysteine 20% Inhal Soln (4ml) IH SCH ×2 (07:37→20:30)
[2017-08-08] MEDS: Albuterol-Ipratrop 3 mg / 0.5 (3 ml) UD IH SCH ×4 (07:37→20:30)
[2017-08-08] MEDS: Budesonide 0.5 mg/2 ml Inhal Susp UD IH SCH ×2 (07:41→20:30)
[2017-08-08 07:53] LABS: BLOOD UREA NITROGEN 51 mg/dL (7-21); GFR AFRICAN-AMERICAN > 60; GFR NON-AFRICAN AMERICAN > 60
[2017-08-08] MEDS: Cilostazol 100 mg Tab UD PO SCH ×2 (08:16→18:13)
[2017-08-08] MEDS ORDERED: Insulin Regular 1 UNITS/0.01 ML ML SC SCH ×2 (10:00→22:00)
--- NOTE | 2017-08-08 10:12 | CON ---
DATE: 08/07/2017 PULMONARY CONSULTATION REFERRING PHYSICIAN: Axel Villagomez MD. REASON FOR CONSULTATION: Chronic obstructive lung disease, obstructive sleep apnea syndrome. HISTORY OF PRESENT ILLNESS: This is a 57-year-old gentleman well known to me, recently admitted to acute site of the hospital with obstructive lung disease, obstructive sleep apnea syndrome, cardiomyopathy, coronary artery disease, atrial fibrillation requiring ablation therapy, history of AICD, diabetes, nonhealing leg ulcer, history of bacteremia, morbid obesity, noncompliant with the followup. Given diuretics and also received Primacor at acute site of the hospital. Ended up with IV steroids because of cough, shortness of breath, and sputum production; presently admitted to TICU. On and off using his CPAP. No hemoptysis, no hematemesis. No hematuria. PAST MEDICAL HISTORY: As per history of present illness. Also having diabetes and peripheral vascular disease, history of thromboembolic disease in the past. ALLERGIES: TO SEROQUEL AND [place]. FAMILY HISTORY: No significant cardiopulmonary disease reported. MEDICATIONS: He is on Mucomyst 20% at 3 mL inhaled twice a day, spironolactone 25 mg twice a day, glimepiride 4 mg daily, lorazepam 1 mg twice a day p.r.n., Cardizem 30 mg twice a day, Coreg 3.125 mg twice a day, Coumadin 6 mg will be given tonight, trazodone 150 mg daily, DuoNeb every 4 hour p.r.n., also DuoNeb three times a day [id number], metformin 1000 mg twice a day, insulin coverage, Lasix 40 mg twice a day, Levemir 30 units subcu before breakfast daily, gabapentin 300 mg twice a day, Percocet 10/325 one tablet every 6 hour, Phenergan 6.25 mg p.r.n., Pletal 100 mg twice a day, inhaled twice a day, Requip 0.5 mg at bedtime, Singulair 10 mg daily, Solu-Medrol 40 mg once a day, Tylenol p.r.n., Zestril 2.5 mg daily. LABORATORY DATA: Reviewed and noted. Blood sugar this morning 324. Microbiology: Blood culture, sputum culture, there is no growth. IMPRESSION AND PLAN: Cardiomyopathy, atrial fibrillation, history of ablation therapy, automatic implantable cardioverter-defibrillator, hypertension, chronic lung disease, sleep apnea syndrome, obesity, thromboembolic disease requiring thrombectomy in the past, peripheral vascular disease, nonhealing leg ulcer. Pulmonary point of view, doing okay. Noted, Solu-Medrol is 40 mg daily. Still has uncontrolled blood sugar. Encourage CPAP use. 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 Follow up INR in the morning. Continue therapy. Thank you and we will follow with you. Tia Godinez MD
[2017-08-08] MEDS: MethylPREDNISolone 40 mg Vial IVP SCH ×2 (10:47→20:00)
--- NOTE | 2017-08-08 11:33 | PN ---
DATE: 08/08/2017 SUBJECTIVE: The patient is in bed, in no acute distress, nontoxic. PHYSICAL EXAMINATION: VITAL SIGNS: Temperature is 97, blood pressure is 126/70, respiratory rate of 18. HEENT: Examination of HEENT is unremarkable. NECK: Supple. LUNGS: Have decreased breath sounds. HEART: Normal S1, S2. ABDOMEN: Soft. LABORATORY EXAMINATION: Reveals a white count of 19,000, hemoglobin of 13, platelets of 213. Chemistries are noted. Microbiology is reviewed. ASSESSMENT AND PLAN: A 57-year-old male with past medical history of morbid obesity, body mass index of 43, hypertension, diabetes, chronic obstructive lung disease, atrial fibrillation, congestive heart failure, chronic leg wound infection, history of Enterococcus bacteremia hospitalization and recently had history of depression and bipolar, admitted with congestive heart failure. He was given antibiotics, short course. Pneumonia was ruled out. Cultures have been negative and currently now off of antibiotics. The patient did have Enterococcus bacteremia, negative transesophageal echocardiogram. Was treated for bacteremia, currently off of antibiotics. The patient does have a white count of 19,800 this morning. No evidence of new evidence of infection. The patient is on Solu-Medrol. We will follow with you. Nikolay Barba MD
--- NOTE | 2017-08-08 16:57 | CP.PCM.CON ---
<Ebenezer Agosto - Last Filed: 08/08/17 16:53> History of Present Illness - History of Present Illness History of Present Illness: Podiatry Consult Note- Dr. Marti 56 year old male with PMHx of DM, HTN, CHF (w/ pacemaker), COPD, pacemaker, Diabetes, depression, bipolar, anxiety consulted for bilaterally lower extremity and left leg scab. Patient seen at bedside today with attending Dr. Marti. Pt seen resting comfortably in bed at time of visit, appears AAOx3 and in NAD. Patient reports that he is going okay. Reports swelling to the legs. Denies of pain. Denies any pedal complaints at this time. Denies nausea, fever, chills, chest pain during the time of visitation. Past Patient History - Infectious Disease Hx of Infectious Diseases: None - Tetanus Immunizations Tetanus Immunization: Unknown - Past Medical History & Family History Past Medical History?: Yes - Past Social History Smoking Status: Former Smoker - CARDIAC Hx Cardiac Disorders: Yes Hx Congestive Heart Failure: Yes Hx Hypertension: Yes - PULMONARY Hx Chronic Obstructive Pulmonary Disease (COPD): Yes - NEUROLOGICAL Hx Dizziness: Yes Other/Comment: numbness both thighs, pt stated "I was in a coma for 2 weeks from seroquel - HEENT Hx HEENT Problems: Yes (eyeglasses, [place] Other/Comment: eye sx for strabismus - RENAL Hx Chronic Kidney Disease: No - ENDOCRINE/METABOLIC Hx Diabetes Mellitus Type 2: Yes - HEMATOLOGICAL/ONCOLOGICAL Hx Cancer: No - INTEGUMENTARY Hx Dermatological Problems: Yes Other/Comment: ble slight redness discolorations dry skin 1.5cm x 1cm dry deep red scabb to outer lower left leg surrounded by red,dry skin, c/o severe pain - MUSCULOSKELETAL/RHEUMATOLOGICAL Hx Falls: No - GASTROINTESTINAL Hx Gastrointestinal Disorders: No - GENITOURINARY/GYNECOLOGICAL Hx Reproductive Disorders: No - PSYCHIATRIC Hx Anxiety: Yes Hx Bipolar Disorder: Yes Hx Depression: Yes Hx Substance Use: No Other/Comment: quit smoking, drinking, cocaine use 25 yrs ago - SURGICAL HISTORY Hx Mastectomy: No - ANESTHESIA Hx Anesthesia Reactions: No Hx Malignant Hyperthermia: No Meds Allergies/Adverse Reactions: Allergies Allergy/AdvReac Type Severity Reaction Status Date / Time quetiapine fumarate AdvReac ANAPHYLAXIS Verified 08/01/17 16:48 [From Seroquel] wild berries Allergy Intermediate RASH Uncoded 08/01/17 16:48 - Medications Medications: Current Medications Acetaminophen (Tylenol 325mg Tab) 650 mg PO Q4H PRN; Protocol PRN Reason: Fever >100.4 F Acetylcysteine (Acetylcysteine 20%) 3 ml IH BIDRESP [facility] PRN Reason: Protocol Last Admin: 08/08/17 07:37 Dose: 3 ml Albuterol/Ipratropium (Duoneb 3 Mg/0.5 Mg (3 Ml) Ud) 3 ml IH [id number] PRN; Protocol PRN Reason: Shortness of Breath Albuterol/Ipratropium (Duoneb 3 Mg/0.5 Mg (3 Ml) Ud) 3 ml IH TIDRESP [facility] PRN Reason: Protocol Last Admin: 08/08/17 13:13 Dose: 3 ml Budesonide (Pulmicort Respules) 0.5 mg IH [id number] [facility] PRN Reason: Protocol Last Admin: 08/08/17 07:41 Dose: 0.5 mg Carvedilol (Coreg) 3.125 mg PO 0800,1800 [facility] PRN Reason: Protocol Last Admin: 08/08/17 07:45 Dose: 3.125 mg Cilostazol (Pletal) 100 mg PO 0730,1700 [facility] PRN Reason: Protocol Last Admin: 08/08/17 08:16 Dose: 100 mg Diltiazem HCl (Cardizem) 30 mg PO BID [facility] PRN Reason: Protocol Last Admin: 08/08/17 10:41 Dose: 30 mg Furosemide (Lasix) 40 mg IVP 0600,1800 [facility] PRN Reason: Protocol Last Admin: 08/08/17 06:31 Dose: 40 mg Gabapentin (Neurontin) 300 mg PO BID [facility] PRN Reason: Protocol Last Admin: 08/08/17 10:41 Dose: 300 mg Glimepiride (Amaryl) 4 mg PO DAILY [facility] PRN Reason: Protocol Last Admin: 08/08/17 10:42 Dose: 4 mg Insulin Detemir (Levemir) 30 unit SC ACBD [facility] PRN Reason: Protocol Last Admin: 08/08/17 06:54 Dose: 30 unit Insulin Human Regular (Humulin R Med) 0 units SC ACHS [facility] PRN Reason: Protocol Last Admin: 08/08/17 12:15 Dose: 3 units Insulin Human Regular (Humulin R) 5 units SC Q12 [facility] Lisinopril (Zestril) 2.5 mg PO DAILY [facility] PRN Reason: Protocol Last Admin: 08/08/17 10:50 Dose: 2.5 mg Lorazepam (Ativan) 1 mg PO BID PRN; Protocol PRN Reason: Anxiety Last Admin: 08/07/17 22:12 Dose: 1 mg Metformin HCl (Glucophage) 1,000 mg PO 0730,1800 [facility] PRN Reason: Protocol Methylprednisolone (Solu-Medrol) 40 mg IVP Q12 [facility] PRN Reason: Protocol Montelukast Sodium (Singulair) 10 mg PO HS [facility] PRN Reason: Protocol Last Admin: 08/07/17 22:10 Dose: 10 mg Oxycodone/Acetaminophen (Percocet 10/325 Mg Tab) 1 tab PO Q6H PRN; Protocol PRN Reason: Pain, severe (8-10) Last Admin: 08/07/17 15:57 Dose: 1 tab Promethazine HCl (Phenergan Syrup) 6.25 mg PO Q4H PRN; Protocol PRN Reason: Cough Ropinirole HCl (Requip) 0.5 mg PO HS [facility] PRN Reason: Protocol Last Admin: 08/07/17 22:11 Dose: 0.5 mg Sodium Chloride ([place] Nasal [place]) 0 ml NS BID [facility] PRN Reason: Protocol Last Admin: 08/08/17 10:41 Dose: 1 spr Spironolactone (Aldactone) 25 mg PO BID [facility] PRN Reason: Protocol Last Admin: 08/08/17 10:41 Dose: 25 mg Trazodone HCl (Desyrel) 150 mg PO HS [facility] PRN Reason: Protocol Last Admin: 08/07/17 22:10 Dose: 150 mg Warfarin Sodium (Coumadin) 6 mg PO 1800 [facility] PRN Reason: Protocol Last Admin: 08/07/17 17:16 Dose: 6 mg Physical Exam - Constitutional Appears: Well, Non-toxic, No Acute Distress - Extremities Exam Extremities exam: Negative for: calf tenderness Additional comments: VASC: DP and PT pulses non-palpable b/l, TG wnl, CFT < 3 sec to all digits, bilateral +3 pitting edema NEURO: Gross sensation diminished bilaterally DERM: Two newly healed lesion with superficial hyperkeratoic layer located to the anterolateral resendiz of left leg. No open lesions, no erythema, ascending cellulitis, no fluctuance, no malodor, no acute clinical signs of infection ORTHO: No tenderness to palpation anterolateral leg ulceration healed with scab formation - Neurological Exam Neurological exam: Alert, Oriented x3 - Psychiatric Exam Psychiatric exam: Normal Affect, Normal Mood Results - Vital Signs Recent Vital Signs: Last Vital Signs Temp 98.2 F 08/08/17 10:00 Pulse 74 08/08/17 10:00 Resp 18 08/08/17 10:00 BP 116/69 08/08/17 10:00 Pulse Ox 96 08/08/17 10:00 - Labs Result Diagrams: 08/08/17 06:50 08/08/17 06:50 Labs: Laboratory Results - last 24 hr 08/07/17 08/07/17 08/08/17 16:39 21:50 02:02 WBC RBC Hgb Hct MCV MCH MCHC RDW Plt Count MPV Gran % Lymph % (Auto) [place] % (Auto) Eos % (Auto) Baso % (Auto) Gran # Lymph # (Auto) [place] # (Auto) Eos # (Auto) Baso # (Auto) PT INR Sodium Potassium Chloride Carbon Dioxide Anion Gap BUN Creatinine Est GFR ( Amer) Est GFR (Non-Af Amer) POC Glucose (mg/dL) 387 H 324 H 219 H Random Glucose Calcium 08/08/17 08/08/17 08/08/17 05:22 06:50 06:50 WBC 19.8 H D RBC 5.20 Hgb 13.6 L Hct 41.0 L MCV 78.8 L MCH 26.2 MCHC 33.2 RDW 15.2 H Plt Count 213 MPV 10.2 Gran % 83.9 H Lymph % (Auto) 8.6 L [place] % (Auto) 6.9 H Eos % (Auto) 0.5 L Baso % (Auto) 0.1 Gran # 16.60 H Lymph # (Auto) 1.7 [place] # (Auto) 1.4 H Eos # (Auto) 0.1 Baso # (Auto) 0.02 PT 24.1 H INR 2.06 H Sodium Potassium Chloride Carbon Dioxide Anion Gap BUN Creatinine Est GFR ( Amer) Est GFR (Non-Af Amer) POC Glucose (mg/dL) 184 H Random Glucose Calcium 08/08/17 08/08/17 08/08/17 06:50 11:32 16:34 WBC RBC Hgb Hct MCV MCH MCHC RDW Plt Count MPV Gran % Lymph % (Auto) [place] % (Auto) Eos % (Auto) Baso % (Auto) Gran # Lymph # (Auto) [place] # (Auto) Eos # (Auto) Baso # (Auto) PT INR Sodium 136 Potassium 4.4 Chloride 89 L Carbon Dioxide 32 Anion Gap 19 BUN 51 H Creatinine 1.1 Est GFR ( Amer) > 60 Est GFR (Non-Af Amer) > 60 POC Glucose (mg/dL) 243 H 263 H Random Glucose 202 H Calcium 10.0 Assessment & Plan - Assessment and Plan (Free Text) Assessment: 56 year old male with PMHx of DM, HTN, CHF (w/ pacemaker), COPD, pacemaker, Diabetes, depression, bipolar, anxiety with left leg with healed ulceration Plan: Patient examined and evaluated with attending Dr. Marti Discussed plan in detail with attending Labs and vital reviewed (afebrile, leukocytosis) Leukocytosis not from lower extremity Patient newly healed ulceration cleansed with saline and left opened to air dry Tubrigrip compression applied. To be worn all day. To be removed prior to sleeping and reapplied in the morning Will continue to follow while in house Thank you for allowing us to take part in patient's care <Leanne Marti - Last Filed: 08/12/17 16:25> Meds - Medications Medications: Current Medications Acetaminophen (Tylenol 325mg Tab) 650 mg PO Q4H PRN; Protocol PRN Reason: Fever >100.4 F Acetylcysteine (Acetylcysteine 20%) 3 ml IH BIDRESP [place] PRN Reason: Protocol Last Admin: 08/12/17 08:52 Dose: Not Given Albuterol/Ipratropium (Duoneb 3 Mg/0.5 Mg (3 Ml) Ud) 3 ml IH [id number] PRN; Protocol PRN Reason: Shortness of Breath Albuterol/Ipratropium (Duoneb 3 Mg/0.5 Mg (3 Ml) Ud) 3 ml IH Q6 [facility] PRN Reason: Protocol Last Admin: 08/12/17 13:17 Dose: Not Given Benzonatate (Tessalon Perles) 100 mg PO TID [facility] Last Admin: 08/12/17 14:28 Dose: 100 mg Budesonide (Pulmicort Respules) 0.5 mg IH [id number] [place] PRN Reason: Protocol Last Admin: 08/12/17 08:53 Dose: Not Given Carvedilol (Coreg) 3.125 mg PO 0800,1800 [facility] PRN Reason: Protocol Last Admin: 08/12/17 08:10 Dose: 3.125 mg Cilostazol (Pletal) 100 mg PO 0730,1700 [facility] PRN Reason: Protocol Last Admin: 08/12/17 08:09 Dose: 100 mg Diltiazem HCl (Cardizem) 30 mg PO BID [facility] PRN Reason: Protocol Last Admin: 08/12/17 10:12 Dose: 30 mg Furosemide (Lasix) 40 mg PO BID [facility] Last Admin: 08/12/17 10:13 Dose: 40 mg Gabapentin (Neurontin) 300 mg PO BID [facility] PRN Reason: Protocol Last Admin: 08/12/17 10:13 Dose: 300 mg Glimepiride (Amaryl) 4 mg PO 0800 [facility] PRN Reason: Protocol Last Admin: 08/12/17 08:10 Dose: 4 mg Guaifenesin/Dextromethorphan (Mucinex-Dm 600-30 Mg) 1 tab PO BID [facility] Last Admin: 08/12/17 10:13 Dose: 1 tab Insulin Detemir (Levemir) 30 unit SC ACBD [facility] PRN Reason: Protocol Last Admin: 08/12/17 08:09 Dose: 30 unit Insulin Human Regular (Humulin R Med) 0 units SC ACHS [facility] PRN Reason: Protocol Last Admin: 08/12/17 12:08 Dose: 3 units Insulin Human Regular (Humulin R) 5 units SC 0800,2000 [facility] PRN Reason: Protocol Last Admin: 08/12/17 08:11 Dose: 5 units Lisinopril (Zestril) 2.5 mg PO DAILY [facility] PRN Reason: Protocol Last Admin: 08/12/17 10:14 Dose: 2.5 mg Lorazepam (Ativan) 1 mg PO BID PRN; Protocol PRN Reason: Anxiety Last Admin: 08/11/17 21:25 Dose: 1 mg Metformin HCl (Glucophage) 1,000 mg PO 0800,1800 [facility] PRN Reason: Protocol Last Admin: 08/12/17 08:10 Dose: 1,000 mg Methylprednisolone (Solu-Medrol) 20 mg IVP 0800,1999 [facility] PRN Reason: Protocol Last Admin: 08/12/17 08:11 Dose: 20 mg Montelukast Sodium (Singulair) 10 mg PO HS [facility] PRN Reason: Protocol Last Admin: 08/11/17 21:19 Dose: 10 mg Oxycodone/Acetaminophen (Percocet 10/325 Mg Tab) 1 tab PO Q6H PRN; Protocol PRN Reason: Pain, severe (8-10) Last Admin: 08/10/17 17:45 Dose: 1 tab Promethazine HCl (Phenergan Syrup) 6.25 mg PO Q4H PRN; Protocol PRN Reason: Cough Ropinirole HCl (Requip) 0.5 mg PO HS [facility] PRN Reason: Protocol Last Admin: 08/11/17 21:19 Dose: 0.5 mg Sodium Chloride ([place] Nasal [place]) 0 ml NS BID [facility] PRN Reason: Protocol Last Admin: 08/12/17 10:14 Dose: 2 spr Spironolactone (Aldactone) 25 mg PO BID [facility] PRN Reason: Protocol Last Admin: 08/12/17 10:12 Dose: 25 mg Trazodone HCl (Desyrel) 150 mg PO HS [facility] PRN Reason: Protocol Last Admin: 08/11/17 21:17 Dose: 150 mg Warfarin Sodium (Coumadin) 4 mg PO 1800 [facility] Last Admin: 08/11/17 17:40 Dose: Not Given Results - Vital Signs Recent Vital Signs: Last Vital Signs Temp 97.5 F L 08/12/17 06:00 Pulse 75 08/12/17 10:14 Resp 18 08/12/17 06:00 BP 141/84 08/12/17 10:14 Pulse Ox 95 08/12/17 06:00 - Labs Result Diagrams: 08/10/17 06:50 08/10/17 06:00 Labs: Laboratory Results - last 24 hr 08/11/17 08/11/17 08/12/17 16:34 21:15 05:22 PT INR POC Glucose (mg/dL) 256 H 299 H 337 H 08/12/17 08/12/17 07:30 10:52 PT 29.3 H INR 2.50 H POC Glucose (mg/dL) 237 H Attending/Attestation - Attestation I have personally seen and examined this patient.: Yes I have fully participated in the care of the patient.: Yes I have reviewed all pertinent clinical information: Yes
--- NOTE | 2017-08-08 18:17 | PN ---
DATE: 08/08/2017 PULMONARY PROGRESS NOTE REFERRING PHYSICIAN: Axel Villagomez MD SUBJECTIVE: The patient is lying in the reclining chair, sleepy, arousable, still have cough and wheezing. No nausea, no vomiting, no diarrhea. No leg pain or leg swelling. PHYSICAL EXAMINATION: GENERAL: In no acute distress. VITAL SIGNS: Temperature is 98, heart rate 74, respiratory rate 18, blood pressure 116/69 and pulse ox 96% on 2 liter nasal cannula. HEENT: Moist mucous membranes. Crowded airway. NECK: Supple. No JVD. LUNGS: Has expiratory wheezing. No rhonchi. HEART: S1 and S2. ABDOMEN: Soft, nontender. No organomegaly. EXTREMITIES: Does have some edema, but much better. NEUROLOGICAL: Awake and alert. Follows simple command. MEDICATIONS: He is on Mucomyst 20% inhaled twice a day, Aldactone 25 mg twice a day, glimepiride 4 mg daily, Ativan 1 mg twice a day p.r.n., Cardizem 30 mg twice a day, Coreg 3.125 mg twice a day, Coumadin 6 mg daily, trazodone 150 mg daily, DuoNeb every 4 hours p.r.n. and every 8 hours [id number], metformin 1000 mg twice a day, insulin coverage, Lasix 40 mg twice a day, Levemir 30 units subcu before breakfast daily, Neurontin 300 mg twice a day, Percocet 10/325 one tab every 4 hours p.r.n., Pletal 100 mg twice a day, budesonide inhaled twice a day, Requip 0.5 mg at bedtime, Singulair 10 mg at bedtime, Solu-Medrol 40 mg IV daily, Tylenol p.r.n., lisinopril 2.5 mg daily. LABORATORY DATA: Shows hemoglobin 13.6, hematocrit 41, WBC 19.8 and platelet is 213. INR 2.06. Sodium 136, potassium 4.4, chloride 89, bicarbonate 32, BUN 51, creatinine 1.1, glucose 243, calcium is 10. IMPRESSION AND PLAN: Cardiomyopathy, atrial fibrillation, history of ablation therapy, automatic implantable cardioverter-defibrillator, hypertension, chronic lung disease, sleep apnea syndrome, obesity, thromboembolic disease, peripheral vascular disease, nonhealing ulcer, has recurrent wheezing and shortness of breath. We will increase Solu-Medrol to 40 mg twice a day, increase [id number] nebulizer treatment every 6 hour. Continue anticoagulation, fall precaution and encourage CPAP use. Continue therapy. Thank you and we will follow with you. Tia Godinez MD
[2017-08-08] MEDS ORDERED: MethylPREDNISolone 40 mg Vial IVP SCH (22:00)
[2017-08-08] MEDS: Insulin Regular 1 UNITS/0.01 ML ML SC SCH (22:36)
[2017-08-09] MEDS: Insulin Detemir 100 units/ml Vial (Levemir) SC SCH ×2 (06:52→18:04)
[2017-08-09] MEDS: Insulin Reg-MEDIUM-Coverage SC SCH ×4 (06:53→22:39)
[2017-08-09] MEDS: Budesonide 0.5 mg/2 ml Inhal Susp UD IH SCH ×2 (07:31→19:58)
[2017-08-09] MEDS: Albuterol-Ipratrop 3 mg / 0.5 (3 ml) UD IH SCH ×3 (07:31→19:58)
[2017-08-09] MEDS: Acetylcysteine 20% Inhal Soln (4ml) IH SCH ×2 (07:33→19:59)
--- NOTE | 2017-08-09 07:54 | CP.PCM.PN ---
Subjective - Date & Time of Evaluation Date of Evaluation: 08/09/17 Time of Evaluation: 06:50 - Subjective Subjective: Sleeping but easily awaken, no distress, denies chest pain and shortness of breath Reason for consultation and follow up: Continuity of care in TCU. Decompensated heart failure due to systolic dysfunction, cardiomyopathy,COPD, hypertension, diabetes mellitus, Atrial fibrillation, AICD/PPM, gastric bypass, morbid obesity , peripheral arterial disease, non obstructive coronary artery disease. Seen and examined by me and Dr. Rajan Objective - Vital Signs/Intake and Output Vital Signs (last 24 hours): Temp Pulse Resp BP Pulse Ox 97.7 F 70 18 98/57 L 96 08/08/17 16:00 08/08/17 17:23 08/08/17 16:00 08/09/17 05:36 08/08/17 10:00 - Medications Medications: Current Medications Acetaminophen (Tylenol 325mg Tab) 650 mg PO Q4H PRN; Protocol PRN Reason: Fever >100.4 F Acetylcysteine (Acetylcysteine 20%) 3 ml IH BIDRESP [facility] PRN Reason: Protocol Last Admin: 08/09/17 07:33 Dose: Not Given Albuterol/Ipratropium (Duoneb 3 Mg/0.5 Mg (3 Ml) Ud) 3 ml IH [id number] PRN; Protocol PRN Reason: Shortness of Breath Albuterol/Ipratropium (Duoneb 3 Mg/0.5 Mg (3 Ml) Ud) 3 ml IH TIDRESP [place] PRN Reason: Protocol Last Admin: 08/09/17 07:31 Dose: 3 ml Budesonide (Pulmicort Respules) 0.5 mg IH [id number] [facility] PRN Reason: Protocol Last Admin: 08/09/17 07:31 Dose: 0.5 mg Carvedilol (Coreg) 3.125 mg PO 0800,1800 [facility] PRN Reason: Protocol Last Admin: 08/08/17 17:23 Dose: 3.125 mg Cilostazol (Pletal) 100 mg PO 0730,1700 [facility] PRN Reason: Protocol Last Admin: 08/08/17 18:13 Dose: 100 mg Diltiazem HCl (Cardizem) 30 mg PO BID [facility] PRN Reason: Protocol Last Admin: 08/08/17 17:23 Dose: 30 mg Furosemide (Lasix) 40 mg IVP 0600,1800 [facility] PRN Reason: Protocol Last Admin: 08/09/17 05:36 Dose: Not Given Gabapentin (Neurontin) 300 mg PO BID [facility] PRN Reason: Protocol Last Admin: 08/08/17 17:22 Dose: 300 mg Glimepiride (Amaryl) 4 mg PO DAILY [facility] PRN Reason: Protocol Last Admin: 08/08/17 10:42 Dose: 4 mg Insulin Detemir (Levemir) 30 unit SC ACBD [facility] PRN Reason: Protocol Last Admin: 08/09/17 06:52 Dose: 30 unit Insulin Human Regular (Humulin R Med) 0 units SC ACHS [facility] PRN Reason: Protocol Last Admin: 08/09/17 06:53 Dose: 5 units Insulin Human Regular (Humulin R) 5 units SC 0800,2000 [facility] PRN Reason: Protocol Last Admin: 08/08/17 22:36 Dose: 5 units Lisinopril (Zestril) 2.5 mg PO DAILY [facility] PRN Reason: Protocol Last Admin: 08/08/17 10:50 Dose: 2.5 mg Lorazepam (Ativan) 1 mg PO BID PRN; Protocol PRN Reason: Anxiety Last Admin: 08/08/17 22:33 Dose: 1 mg Metformin HCl (Glucophage) 1,000 mg PO 0730,1800 [facility] PRN Reason: Protocol Last Admin: 08/08/17 17:24 Dose: 1,000 mg Methylprednisolone (Solu-Medrol) 40 mg IVP 0800,2000 [facility] PRN Reason: Protocol Last Admin: 08/08/17 20:00 Dose: 40 mg Montelukast Sodium (Singulair) 10 mg PO HS [facility] PRN Reason: Protocol Last Admin: 08/08/17 22:34 Dose: 10 mg Oxycodone/Acetaminophen (Percocet 10/325 Mg Tab) 1 tab PO Q6H PRN; Protocol PRN Reason: Pain, severe (8-10) Last Admin: 08/07/17 15:57 Dose: 1 tab Promethazine HCl (Phenergan Syrup) 6.25 mg PO Q4H PRN; Protocol PRN Reason: Cough Ropinirole HCl (Requip) 0.5 mg PO HS [facility] PRN Reason: Protocol Last Admin: 08/08/17 22:34 Dose: 0.5 mg Sodium Chloride ([place] Nasal [place]) 0 ml NS BID [facility] PRN Reason: Protocol Last Admin: 08/08/17 18:12 Dose: Not Given Spironolactone (Aldactone) 25 mg PO BID [facility] PRN Reason: Protocol Last Admin: 08/08/17 17:22 Dose: 25 mg Trazodone HCl (Desyrel) 150 mg PO HS [facility] PRN Reason: Protocol Last Admin: 08/08/17 22:32 Dose: 150 mg Warfarin Sodium (Coumadin) 6 mg PO 1800 [facility] PRN Reason: Protocol Last Admin: 08/08/17 17:24 Dose: 6 mg - Labs Labs: 08/08/17 06:50 08/08/17 06:50 PT 24.1 SECONDS (9.4-12.5) H 08/08/17 06:50 INR 2.06 (0.93-1.08) H 08/08/17 06:50 - Constitutional Appears: No Acute Distress - Head Exam Head Exam: NORMOCEPHALIC - Eye Exam Eye Exam: Normal appearance - ENT Exam ENT Exam: Mucous Membranes Moist - Respiratory Exam Respiratory Exam: Decreased Breath Sounds, Rhonchi, NORMAL BREATHING PATTERN Additional comments: expiratory wheezing - Cardiovascular Exam Cardiovascular Exam: +S1, +S2 - GI/Abdominal Exam GI & Abdominal Exam: Soft, Normal Bowel Sounds - Extremities Exam Extremities Exam: Normal Capillary Refill - Neurological Exam Neurological Exam: Alert, Awake, Oriented x3 - Psychiatric Exam Psychiatric exam: Normal Affect, Normal Mood - Skin Skin Exam: Intact, Normal Color, Warm Assessment and Plan - Assessment and Plan (Free Text) Assessment: A 57 year old male who came in to the ER due to shortness of breath. History of Decompensated heart failure due to systolic dysfunction, cardiomyopathy,COPD, hypertension, diabetes mellitus, Atrial fibrillation, AICD/PPM, gastric bypass, morbid obesity, peripheral arterial disease,non obstructive coronary artery disease. He was given IV Primacor drip for 48 hours, steroids and antibiotics and gradually resolved pulmonary symptoms. Transferred to TCU for reconditioning. Plan: No respiratory distress, expiratory wheezing Continue respiratory treatment and Solumedrol Physical therapy in progress, uses cane to walk Cardiac status stable,CHF stable Controlled heart rate and blood pressure Continue current treatment Continue current medications Fall precautions Discharge planning Will follow up Plan and treatment discussed with Dr. Rajan
[2017-08-09] MEDS: Insulin Regular 1 UNITS/0.01 ML ML SC SCH ×2 (07:56→20:00)
[2017-08-09] MEDS: Cilostazol 100 mg Tab UD PO SCH ×2 (07:57→18:05)
[2017-08-09] MEDS: MethylPREDNISolone 40 mg Vial IVP SCH ×2 (08:24→20:00)
--- NOTE | 2017-08-09 16:55 | PN ---
DATE: 08/09/2017 SUBJECTIVE: The patient has no complaints of any chest pain or shortness of breath. He says he continues to have a cough. He sometimes has problems with breathing. He did not use a CPAP yesterday. PHYSICAL EXAMINATION: VITAL SIGNS: Temperature is 97.4, pulse of 74, blood pressure 147/75, respirations 18. GENERAL: The patient is lying in bed, flat, comfortable. HEENT: No oral lesion. Anicteric sclerae. Moist mucosa. NECK: No JVD, adenopathy, or thyromegaly. CARDIOVASCULAR: S1 and S2, regular. No murmurs, rubs, or gallops. LUNGS: Clear to auscultation bilaterally. No wheeze, rales, or rhonchi. ABDOMEN: Bowel sounds are positive, soft, nontender and nondistended. EXTREMITIES: No cyanosis, clubbing or edema. LABORATORY DATA: White count of 19.8, hemoglobin 13.6, creatinine is 1.1. ASSESSMENT: 1. Acute congestive heart failure secondary to systolic dysfunction. 2. Acute chronic obstructive pulmonary disease. 3. Diabetes type 2. 4. Hypertension. 5. Atrial fibrillation on Coumadin. 6. Peripheral arterial disease. 7. Pacemaker/defibrillator. 8. Restless legs syndrome. 9. History of gastric bypass. 10. Morbid obesity with a body mass index of 43. PLAN: The patient is currently on Aldactone, this will be continued. He is receiving Amaryl for his diabetes. He is on Cardizem. He is on Coumadin. His INR is therapeutic at 2.06. I will increase his Coumadin to 6.5 mg. He is on carvedilol. He is going to be on his insulin for his diabetes. He is on Levemir. He is receiving Lasix 40 mg twice a day. He is receiving Requip for his restless legs syndrome. He is on Zestril for his CHF. I will order a chest x-ray to evaluate his lungs. He is being followed by Dr. Godinez from Pulmonary, and by Dr. Cabello from Cardiology. Axel Villagomez MD [facility] # [id number]
--- NOTE | 2017-08-10 01:46 | PN ---
DATE: 08/09/2017 PULMONARY PROGRESS NOTE REFERRING PHYSICIAN: Axel Villagomez MD SUBJECTIVE: The patient is sitting up in a reclining chair, sleepy, arousable. Night was unremarkable. Could not use CPAP. Cough is better. Sputum production is better. Wheezing is improved. No nausea, no vomiting, no diarrhea. No leg pain or leg swelling. OBJECTIVE: GENERAL: In no acute distress. VITAL SIGNS: Temperature is 98, heart rate is 74, respiratory rate is 18, blood pressure 146/55, pulse ox 96% on nasal cannula. HEENT: Moist mucous membrane. Crowded airway. NECK: Supple. No JVD. LUNGS: Have a fair airflow, prolonged expiratory failure. HEART: S1 and S2. ABDOMEN: Soft and nontender. No organomegaly. EXTREMITIES: Decreased edema, has nonhealing ulcer. NEUROLOGICAL: Awake and alert. Follows simple command. MEDICATIONS: He is on Mucomyst inhaled twice a day, Aldactone 25 mg twice a day, glimepiride 4 mg daily, Ativan 1 mg twice a day p.r.n., Cardizem 30 mg twice a day, Coreg 3.125 mg twice a day, Coumadin 2.5 mg daily, trazodone 150 mg daily, DuoNeb every 4 hours p.r.n. and every 8 hours [id number], metformin 1000 mg twice a day, insulin coverage, Lasix 40 mg twice a day, Levemir 30 units subcu a.c.b.d., Neurontin 300 mg twice a day, Percocet 10/325 one tab every 6 hours p.r.n., promethazine 6.25 mg every 4 hours, Pletal 100 mg twice a day, budesonide inhaled twice a day, Requip 0.5 mg at bedtime, Singulair 10 mg at bedtime, Solu-Medrol 40 mg twice a day, Tylenol p.r.n., Zestril 2.5 mg daily. LABORATORY DATA: Shows blood sugar this morning is 216. IMPRESSION AND PLAN: Cardiomyopathy with atrial fibrillation, history of ablation therapy, history of automatic implantable cardioverter-defibrillator, hypertension, chronic obstructive lung disease, sleep apnea syndrome, obesity, thromboembolic disease, peripheral vascular disease, nonhealing leg ulcer. Pulmonary point of view, improved compared to yesterday. Breathing is better. Encourage continuous positive airway pressure use. Continue IV and inhaled bronchodilator. Continue insulin use, gastric prophylaxis, anticoagulation. Follow up labs in the morning. Thank you, and we will follow with you. Tia Godinez MD
--- NOTE | 2017-08-10 02:11 | PN ---
DATE: 08/09/2017 LOCATION: The patient is seen earlier this morning in room 322. SUBJECTIVE: Patient is still complaining of congestion. No fevers. No chills. No nausea. PHYSICAL EXAMINATION: VITAL SIGNS: Temperature is 98, blood pressure is , respiratory rate of 18. HEENT: Unremarkable. NECK: Supple. LUNGS: Have decreased breath sounds. HEART: Normal S1 and S2. ABDOMEN: Soft. LABORATORY EXAMINATION: Reveals white count of 19,800, hemoglobin of 13, platelets of 213. Chemistries are noted. Microbiology is noted. ASSESSMENT AND PLAN: This is a 57-year-old male with morbid obesity with the body mass index of 43, hypertension, diabetes, chronic obstructive lung disease, atrial fibrillation, congestive heart failure, chronic leg wound infection, history of Enterococcus bacteremia, recently hospitalized, history of depression and bipolar, history of congestive heart failure. He also was given the short course of antibiotics. Cultures have been negative. Currently now off of antibiotics and he did have Enterococcus bacteremia with negative transesophageal echocardiogram. Currently patient is off of antibiotics, does have leukocytosis, lower extremities with chronic changes and of note that the patient is on Solu-Medrol, which may be responsible for the leukocytosis. All cultures have been negative. Nikolay Barba MD
[2017-08-10 06:42] LABS: INR 1.74 (0.93-1.08); PROTHROMBIN TIME 20.2 SECONDS (9.4-12.5)
[2017-08-10 06:46] LABS: BLOOD UREA NITROGEN 47 mg/dL (7-21); GFR AFRICAN-AMERICAN > 60; GFR NON-AFRICAN AMERICAN > 60
[2017-08-10] MEDS: Insulin Reg-MEDIUM-Coverage SC SCH ×4 (06:53→21:45)
[2017-08-10 07:08] LABS: BASO # 0.01 K/mm3 (0.0-2.0); BASO % 0.1 % (0.0-3.0); GRAN # 16.34 (1.4-6.5); HEMOGLOBIN 13.2 g/dL (14.0-18.0); LYMPH # 0.8 (1.2-3.4); LYMPH % 4.7 % (22.0-35.0); MEAN CELL VOLUME 78.8 fl (80.0-105.0); MEAN CORPUSCULAR HEMOGLOBIN 25.7 pg (25.0-35.0); MEAN CORPUSCULAR HGB CONC 32.7 g/dl (31.0-37.0); MEAN PLATELET VOLUME 10.7 fl (7.0-11.0); MONO # 0.6 (0.1-0.6); MONO % 3.2 % (1.0-6.0); PLATELET COUNT 214 10^3/uL (120.0-450.0); RBC 5.13 10^6/uL (3.5-6.1); RED CELL DISTRIBUTION WIDTH 15.3 % (11.5-14.5); WHITE BLOOD COUNT 17.8 10^3/ul (4.5-11.0)
[2017-08-10] MEDS: Albuterol-Ipratrop 3 mg / 0.5 (3 ml) UD IH SCH ×2 (07:20→13:13)
[2017-08-10] MEDS: Budesonide 0.5 mg/2 ml Inhal Susp UD IH SCH ×2 (07:21→21:10)
[2017-08-10] MEDS: Acetylcysteine 20% Inhal Soln (4ml) IH SCH ×2 (07:21→21:10)
[2017-08-10] MEDS: Insulin Detemir 100 units/ml Vial (Levemir) SC SCH ×2 (08:05→17:38)
[2017-08-10] MEDS: Insulin Regular 1 UNITS/0.01 ML ML SC SCH ×2 (08:07→21:45)
[2017-08-10] MEDS: Cilostazol 100 mg Tab UD PO SCH ×2 (08:08→17:39)
[2017-08-10] MEDS: MethylPREDNISolone 40 mg Vial IVP SCH ×2 (08:09→21:47)
[2017-08-10 08:21] LABS: ANISOCYTOSIS 1+; BAND 2 % (0-2); LYMPHOCYTE 4 % (22.0-35.0); MICROCYTOSIS 1+; MONOCYTE 1 % (1.0-6.0); NEUTROPHIL 93 % (50.0-70.0); PLATELET ESTIMATE NORMAL (NORMAL)
--- NOTE | 2017-08-10 09:17 | RAD ---
HISTORY: SOB COMPARISON: 08/01/2017 TECHNIQUE: Chest PA and lateral FINDINGS: LUNGS: No active pulmonary disease. PLEURA: No significant pleural effusion identified. No pneumothorax apparent. CARDIOVASCULAR: Mild cardiomegaly. Dual lead pacemaker OSSEOUS STRUCTURES: No significant abnormalities. VISUALIZED UPPER ABDOMEN: Normal. OTHER FINDINGS: None. IMPRESSION: No active disease.
[2017-08-10] MEDS: Oxycodone/Acetaminophen 10/325 mg Tab PO PRN (17:45)
--- NOTE | 2017-08-10 19:58 | CP.PCM.PN ---
Subjective - Date & Time of Evaluation Date of Evaluation: 08/10/17 Time of Evaluation: 10:45 - Subjective Subjective: Still with cough but is improved. No fevers, doing his physical therapy well. Objective - Vital Signs/Intake and Output Vital Signs (last 24 hours): Temp Pulse Resp BP Pulse Ox 97 F L 77 18 101/59 L 90 L 08/09/17 17:37 08/09/17 17:37 08/09/17 17:37 08/10/17 06:02 08/09/17 17:37 Intake and Output: 08/09/17 08/10/17 18:59 06:59 Intake Total 420 Balance 420 - Medications Medications: Current Medications Acetaminophen (Tylenol 325mg Tab) 650 mg PO Q4H PRN; Protocol PRN Reason: Fever >100.4 F Acetylcysteine (Acetylcysteine 20%) 3 ml IH BIDRESP [facility] PRN Reason: Protocol Last Admin: 08/09/17 19:59 Dose: Not Given Albuterol/Ipratropium (Duoneb 3 Mg/0.5 Mg (3 Ml) Ud) 3 ml IH [id number] PRN; Protocol PRN Reason: Shortness of Breath Albuterol/Ipratropium (Duoneb 3 Mg/0.5 Mg (3 Ml) Ud) 3 ml IH TIDRESP [facility] PRN Reason: Protocol Last Admin: 08/09/17 19:58 Dose: 3 ml Budesonide (Pulmicort Respules) 0.5 mg IH [id number] [facility] PRN Reason: Protocol Last Admin: 08/09/17 19:58 Dose: 0.5 mg Carvedilol (Coreg) 3.125 mg PO 0800,1800 [facility] PRN Reason: Protocol Last Admin: 08/09/17 18:02 Dose: 3.125 mg Cilostazol (Pletal) 100 mg PO 0730,1700 [facility] PRN Reason: Protocol Last Admin: 08/09/17 18:05 Dose: 100 mg Diltiazem HCl (Cardizem) 30 mg PO BID [facility] PRN Reason: Protocol Last Admin: 08/09/17 17:58 Dose: 30 mg Furosemide (Lasix) 40 mg IVP 0600,1800 [facility] PRN Reason: Protocol Last Admin: 08/10/17 06:02 Dose: Not Given Gabapentin (Neurontin) 300 mg PO BID [facility] PRN Reason: Protocol Last Admin: 08/09/17 18:04 Dose: 300 mg Glimepiride (Amaryl) 4 mg PO 0800 [facility] PRN Reason: Protocol Insulin Detemir (Levemir) 30 unit SC ACBD [facility] PRN Reason: Protocol Last Admin: 08/09/17 18:04 Dose: 30 unit Insulin Human Regular (Humulin R Med) 0 units SC ACHS [facility] PRN Reason: Protocol Last Admin: 08/09/17 22:39 Dose: Not Given Insulin Human Regular (Humulin R) 5 units SC 0800,2000 [facility] PRN Reason: Protocol Last Admin: 08/09/17 20:00 Dose: 5 units Lisinopril (Zestril) 2.5 mg PO DAILY [facility] PRN Reason: Protocol Last Admin: 08/09/17 09:38 Dose: 2.5 mg Lorazepam (Ativan) 1 mg PO BID PRN; Protocol PRN Reason: Anxiety Last Admin: 08/09/17 22:37 Dose: 1 mg Metformin HCl (Glucophage) 1,000 mg PO 0800,1800 [facility] PRN Reason: Protocol Last Admin: 08/09/17 18:04 Dose: 1,000 mg Methylprednisolone (Solu-Medrol) 40 mg IVP 0800,2000 [facility] PRN Reason: Protocol Last Admin: 08/09/17 20:00 Dose: 40 mg Montelukast Sodium (Singulair) 10 mg PO HS [facility] PRN Reason: Protocol Last Admin: 08/09/17 22:37 Dose: 10 mg Oxycodone/Acetaminophen (Percocet 10/325 Mg Tab) 1 tab PO Q6H PRN; Protocol PRN Reason: Pain, severe (8-10) Last Admin: 08/07/17 15:57 Dose: 1 tab Promethazine HCl (Phenergan Syrup) 6.25 mg PO Q4H PRN; Protocol PRN Reason: Cough Ropinirole HCl (Requip) 0.5 mg PO HS [facility] PRN Reason: Protocol Last Admin: 08/09/17 22:37 Dose: 0.5 mg Sodium Chloride ([place] Nasal [place]) 0 ml NS BID [facility] PRN Reason: Protocol Last Admin: 08/09/17 17:57 Dose: 1 spr Spironolactone (Aldactone) 25 mg PO BID [facility] PRN Reason: Protocol Last Admin: 08/09/17 17:58 Dose: 25 mg Trazodone HCl (Desyrel) 150 mg PO HS [facility] PRN Reason: Protocol Last Admin: 08/09/17 22:36 Dose: 150 mg Warfarin Sodium (Coumadin) 2.5 mg PO 1800 [facility] PRN Reason: Protocol Last Admin: 08/09/17 18:02 Dose: 2.5 mg Warfarin Sodium (Coumadin) 4 mg PO 1800 [facility] Last Admin: 08/09/17 18:03 Dose: 4 mg - Labs Labs: 08/08/17 06:50 08/10/17 06:00 PT 20.2 SECONDS (9.4-12.5) H 08/10/17 06:00 INR 1.74 (0.93-1.08) H 08/10/17 06:00 - Constitutional Appears: Non-toxic, Chronically Ill - Head Exam Head Exam: NORMAL INSPECTION - ENT Exam ENT Exam: Mucous Membranes Moist - Neck Exam Neck Exam: absent: Meningismus - Respiratory Exam Respiratory Exam: Decreased Breath Sounds - Cardiovascular Exam Cardiovascular Exam: +S1, +S2 - GI/Abdominal Exam GI & Abdominal Exam: Soft. absent: Tenderness Assessment and Plan - Assessment and Plan (Free Text) Plan: Assessment S/P systemic inflammatory response syndrome probably due to acute on chronic CHF , clinically improved COPD chronic left leg wounds, non-infected history of sepsis due to persistent E. faecalis bacteremia, no vegetations or endocarditis noted on CORA S/P AICD placement HTN DM atrial fibrillation on anticoagulation chronic CHF chronic leg wound S/P gastric bypass surgery S/P left leg thrombectomy Plan continue to monitor off antibiotics since he is at risk for hospital-acquired infections
--- NOTE | 2017-08-10 20:58 | PN ---
DATE: 08/10/2017 LOCATION: The patient is in room 322, bed 2. REASON FOR CONSULTATION AND FOLLOWUP: Decompensated congestive heart failure due to systolic dysfunction, cardiomyopathy, COPD, hypertension, diabetes mellitus, atrial fibrillation, AICD insertion, history of gastric bypass for morbid obesity, peripheral arterial disease, nonobstructive coronary artery disease, and respiratory tract infection. SUBJECTIVE: The patient is sitting in chair. Denies any chest pain, palpitation. He says shortness of breath is improving. He still complains that he has a cough. PHYSICAL EXAMINATION: VITAL SIGNS: Blood pressure 118/78, respirations 14, pulse 75, temperature 97.3. HEENT: Head is normocephalic. Eyes: Pupils normal. Conjunctivae normal. Nose and throat normal. NECK: JVP low. Carotid equal. THORAX: AP diameter normal. LUNGS: No significant rales. CARDIOVASCULAR: S1 and S2. ABDOMEN: Protuberant. No organomegaly. EXTREMITIES: No clubbing. No cyanosis. Leg edema has also improved. LABORATORY DATA: WBC 17.8, hemoglobin 13.2, hematocrit 40.4, and platelets . Sodium 135, potassium 4.8, BUN 47, creatinine 1.1, random glucose 260, calcium 10. Repeat chest x-ray done today shows clear lungs and cardiomegaly. DIAGNOSES: Decompensated congestive heart failure due to systolic left ventricular dysfunction, cardiomyopathy, respiratory tract infection, chronic obstructive pulmonary disease, hypertension, diabetes mellitus, atrial fibrillation, automatic implantable cardioverter-defibrillator insertion, gastric bypass, morbid obesity, peripheral arterial disease, and nonobstructive coronary artery disease. PLAN: We will continue physical therapy and continue present medication. The patient is on spironolactone 25 b.i.d.; glimepiride 4 mg p.o. daily; Cardizem 30 mg b.i.d.; carvedilol 3.125 p.o. b.i.d.; warfarin 2.5 mg p.o. daily and 4 mg p.o. daily; metformin 1000 mg p.o. daily; furosemide 40 IV b.i.d., will change it to 40 mg p.o. b.i.d.; insulin as ordered; Neurontin 300 mg b.i.d.; Pletal 100 mg p.o. b.i.d.; Singulair 10 mg at bedtime; methylprednisolone 40 mg IV b.i.d.; lisinopril 2.5 mg daily. We will continue present therapy. We will change Lasix 40 b.i.d. We will discontinue the IV Lasix. Today's chest x-ray is clear. We will follow with you. Tia Cabello MD
[2017-08-10] MEDS: guaiFENesin-DM 600-30 mg ER Tab PO SCH (21:46)
--- NOTE | 2017-08-10 23:51 | PN ---
DATE: 08/10/2017 PULMONARY PROGRESS NOTE REFERRING PHYSICIAN: Axel Villagomez MD. SUBJECTIVE: He is out of bed to chair, feels okay. Still complaining with some cough and wheezing, but overall better. No nausea. No vomiting. No diarrhea. Decreased leg swelling. OBJECTIVE: GENERAL: In no acute distress. VITAL SIGNS: Temperature is 98, heart rate is 72, respiratory rate is 20, blood pressure 115/56. HEENT: Moist mucous membrane. Crowded airway. Mallampati score is 4. NECK: Supple. No JVD. LUNGS: Have few scattered rhonchi. HEART: S1 and S2. ABDOMEN: Soft, nontender, no organomegaly. EXTREMITIES: There is decreased edema. NEUROLOGIC: Awake, alert and follows simple command. MEDICATIONS: He is on Mucomyst 20% inhaled twice a day, which he refused to take today; Aldactone is 25 mg twice a day, glimepiride 4 mg daily, Ativan 1 mg twice a day p.r.n., Cardizem 30 mg twice a day, Coreg 3.125 mg twice a day, Coumadin 2.5 mg versus 6.5 mg will be given, trazodone 150 mg daily, albuterol/Atrovent nebulizer every 4 hours p.r.n. and every 8 hours [id number], metformin is 1000 mg twice a day, insulin coverage, Lasix 40 mg twice a day, Levemir 30 units subcu a.c.b., Neurontin 300 mg twice a day, nasal saline twice a day, Percocet 10/325 one tab every 6 hours p.r.n., Phenergan 6.25 mg every 4 hours p.r.n., Pletal 100 mg twice a day, Pulmicort inhaled twice a day, Requip 0.5 mg daily, Singulair 10 mg daily, Solu-Medrol 40 mg twice a day, Tylenol p.r.n., Zestril 2.5 mg daily. LABORATORY DATA: Shows hemoglobin 13.2, hematocrit 40.4, WBC 17.8, platelet count is 214. INR 1.74. Sodium 135, potassium 4.8, chloride 92, bicarbonate 29, BUN 47, creatinine 1.1, glucose this morning 260. Chest x-ray done today shows no active disease. IMPRESSION AND PLAN: Chronic obstructive lung disease with exacerbation, cardiomyopathy, atrial fibrillation, history of ablation therapy, has automatic implantable cardioverter-defibrillator, hypertension, sleep apnea syndrome, obesity, history of thromboembolic disease, nonhealing leg ulcer. This time, his asthma is hard to break, keep getting pulmonary symptoms, though he is on high dose of steroids. He had been noncompliant with Mucomyst. We will add Mucinex 600 mg twice a day, increase nebulizer treatment every 6 hours. Continue Solu-Medrol 40 mg twice a day. We will also add gastric prophylaxis to make sure if there is no gastroesophageal reflux disease contributing to this bronchospasm. Anticoagulation. Thank you and we will follow with you. Tia Godinez MD
[2017-08-11] MEDS: Albuterol-Ipratrop 3 mg / 0.5 (3 ml) UD IH SCH ×4 (01:14→21:40)
[2017-08-11] MEDS: Insulin Reg-MEDIUM-Coverage SC SCH ×4 (06:30→21:18)
[2017-08-11] MEDS: Insulin Detemir 100 units/ml Vial (Levemir) SC SCH ×2 (06:30→17:36)
[2017-08-11 06:41] LABS: INR 1.75 (0.93-1.08); PROTHROMBIN TIME 20.3 SECONDS (9.4-12.5)
--- NOTE | 2017-08-11 07:37 | CP.PCM.PN ---
Subjective - Date & Time of Evaluation Date of Evaluation: 08/11/17 Time of Evaluation: 06:45 - Subjective Subjective: Walking on the hallway with cane,steady gait, no distress, denies chest pain and shortness of breath Reason for consultation and follow up: Continuity of care in TCU. Decompensated heart failure due to systolic dysfunction, cardiomyopathy,COPD, hypertension, diabetes mellitus, Atrial fibrillation, AICD/PPM, gastric bypass, morbid obesity , peripheral arterial disease, non obstructive coronary artery disease. Seen and examined by me and Dr. Cabello Objective - Vital Signs/Intake and Output Vital Signs (last 24 hours): Temp Pulse Resp BP Pulse Ox 98 F 72 20 115/56 L 96 08/10/17 17:43 08/10/17 17:43 08/10/17 17:43 08/10/17 17:43 08/10/17 10:00 - Medications Medications: Current Medications Acetaminophen (Tylenol 325mg Tab) 650 mg PO Q4H PRN; Protocol PRN Reason: Fever >100.4 F Acetylcysteine (Acetylcysteine 20%) 3 ml IH BIDRESP [facility] PRN Reason: Protocol Last Admin: 08/10/17 21:10 Dose: 3 ml Albuterol/Ipratropium (Duoneb 3 Mg/0.5 Mg (3 Ml) Ud) 3 ml IH [id number] PRN; Protocol PRN Reason: Shortness of Breath Albuterol/Ipratropium (Duoneb 3 Mg/0.5 Mg (3 Ml) Ud) 3 ml IH Q6 [facility] PRN Reason: Protocol Last Admin: 08/11/17 01:14 Dose: Not Given Benzonatate (Tessalon Perles) 100 mg PO TID [facility] Budesonide (Pulmicort Respules) 0.5 mg IH [id number] [facility] PRN Reason: Protocol Last Admin: 08/10/17 21:10 Dose: 0.5 mg Carvedilol (Coreg) 3.125 mg PO 0800,1800 [facility] PRN Reason: Protocol Last Admin: 08/10/17 17:32 Dose: 3.125 mg Cilostazol (Pletal) 100 mg PO 0730,1700 [facility] PRN Reason: Protocol Last Admin: 08/10/17 17:39 Dose: 100 mg Diltiazem HCl (Cardizem) 30 mg PO BID [facility] PRN Reason: Protocol Last Admin: 08/10/17 17:32 Dose: 30 mg Furosemide (Lasix) 40 mg PO BID [facility] Last Admin: 08/10/17 17:38 Dose: 40 mg Gabapentin (Neurontin) 300 mg PO BID [facility] PRN Reason: Protocol Last Admin: 08/10/17 17:39 Dose: 300 mg Glimepiride (Amaryl) 4 mg PO 0800 [facility] PRN Reason: Protocol Last Admin: 08/10/17 08:06 Dose: 4 mg Guaifenesin/Dextromethorphan (Mucinex-Dm 600-30 Mg) 1 tab PO BID [facility] Last Admin: 08/10/17 21:46 Dose: 1 tab Insulin Detemir (Levemir) 30 unit SC ACBD [facility] PRN Reason: Protocol Last Admin: 08/11/17 06:30 Dose: 30 unit Insulin Human Regular (Humulin R Med) 0 units SC ACHS [facility] PRN Reason: Protocol Last Admin: 08/11/17 06:30 Dose: 3 units Insulin Human Regular (Humulin R) 5 units SC 0800,2000 [facility] PRN Reason: Protocol Last Admin: 08/10/17 21:45 Dose: 5 units Lisinopril (Zestril) 2.5 mg PO DAILY [facility] PRN Reason: Protocol Last Admin: 08/10/17 10:25 Dose: 2.5 mg Lorazepam (Ativan) 1 mg PO BID PRN; Protocol PRN Reason: Anxiety Last Admin: 08/10/17 08:14 Dose: 1 mg Metformin HCl (Glucophage) 1,000 mg PO 0800,1800 [facility] PRN Reason: Protocol Last Admin: 08/10/17 17:36 Dose: 1,000 mg Methylprednisolone (Solu-Medrol) 40 mg IVP 0800,2000 [facility] PRN Reason: Protocol Last Admin: 08/10/17 21:47 Dose: 40 mg Montelukast Sodium (Singulair) 10 mg PO HS [facility] PRN Reason: Protocol Last Admin: 08/10/17 21:47 Dose: 10 mg Oxycodone/Acetaminophen (Percocet 10/325 Mg Tab) 1 tab PO Q6H PRN; Protocol PRN Reason: Pain, severe (8-10) Last Admin: 08/10/17 17:45 Dose: 1 tab Promethazine HCl (Phenergan Syrup) 6.25 mg PO Q4H PRN; Protocol PRN Reason: Cough Ropinirole HCl (Requip) 0.5 mg PO HS [facility] PRN Reason: Protocol Last Admin: 08/10/17 21:46 Dose: 0.5 mg Sodium Chloride ([place] Nasal [place]) 0 ml NS BID [facility] PRN Reason: Protocol Last Admin: 08/10/17 17:39 Dose: 1 spr Spironolactone (Aldactone) 25 mg PO BID [facility] PRN Reason: Protocol Last Admin: 08/10/17 17:31 Dose: 25 mg Trazodone HCl (Desyrel) 150 mg PO HS [facility] PRN Reason: Protocol Last Admin: 08/10/17 21:44 Dose: 150 mg Warfarin Sodium (Coumadin) 2.5 mg PO 1800 [facility] PRN Reason: Protocol Last Admin: 08/10/17 17:35 Dose: 2.5 mg Warfarin Sodium (Coumadin) 4 mg PO 1800 [facility] Last Admin: 08/10/17 17:34 Dose: 4 mg - Labs Labs: 08/10/17 06:50 08/10/17 06:00 PT 20.3 SECONDS (9.4-12.5) H 08/11/17 05:00 INR 1.75 (0.93-1.08) H 08/11/17 05:00 - Constitutional Appears: No Acute Distress - Head Exam Head Exam: NORMOCEPHALIC - Eye Exam Eye Exam: Normal appearance - ENT Exam ENT Exam: Mucous Membranes Moist - Respiratory Exam Respiratory Exam: Clear to Ausculation Bilateral, NORMAL BREATHING PATTERN - Cardiovascular Exam Cardiovascular Exam: +S1, +S2 - GI/Abdominal Exam GI & Abdominal Exam: Soft, Normal Bowel Sounds - Extremities Exam Extremities Exam: Normal Capillary Refill - Neurological Exam Neurological Exam: Alert, Awake, Oriented x3 - Psychiatric Exam Psychiatric exam: Normal Affect, Normal Mood - Skin Skin Exam: Intact, Normal Color, Warm Assessment and Plan - Assessment and Plan (Free Text) Assessment: A 57 year old male who came in to the ER due to shortness of breath. History of Decompensated heart failure due to systolic dysfunction, cardiomyopathy,COPD, hypertension, diabetes mellitus, Atrial fibrillation, AICD/PPM, gastric bypass, morbid obesity, peripheral arterial disease,non obstructive coronary artery disease. He was given IV Primacor drip for 48 hours, steroids and antibiotics and gradually resolved pulmonary symptoms. Transferred to TCU for reconditioning. Plan: Ambulating in hallway with cane No respiratory distress, expiratory wheezing, cough Continue respiratory treatment and Solumedrol Followed up by pulmonary Physical therapy in progress, uses cane to walk Cardiac status stable,CHF stable Controlled heart rate and blood pressure Continue current treatment Continue current medications Fall precautions Discharge planning Will follow up Plan and treatment discussed with Dr. Cabello
[2017-08-11] MEDS: Budesonide 0.5 mg/2 ml Inhal Susp UD IH SCH ×2 (07:39→21:40)
[2017-08-11] MEDS: Acetylcysteine 20% Inhal Soln (4ml) IH SCH ×2 (07:39→21:40)
[2017-08-11] MEDS: Cilostazol 100 mg Tab UD PO SCH ×2 (08:04→17:37)
[2017-08-11] MEDS: MethylPREDNISolone 40 mg Vial IVP SCH ×2 (08:06→21:19)
[2017-08-11] MEDS: Insulin Regular 1 UNITS/0.01 ML ML SC SCH ×2 (08:08→21:17)
--- NOTE | 2017-08-11 09:30 | PN ---
DATE: 08/11/2017 SUBJECTIVE: The patient is in bed, in no acute distress, nontoxic. PHYSICAL EXAMINATION: VITAL SIGNS: Temperature is 98, blood pressure is 115/50, respiratory rate of 18. HEENT: Examination of HEENT is unremarkable. NECK: Supple. LUNGS: Have decreased breath sounds. HEART: Normal S1, S2. ABDOMEN: Soft, nontender. LABORATORY DATA: Laboratory examination reveals a white count of 17,800, hemoglobin is noted. BUN of 47, creatinine of 1.1. Review of orders reveals the patient to be off of antibiotics. The patient is on Solu-Medrol. The patient also had a chest x-ray yesterday, which showed no active pulmonary disease. ASSESSMENT AND PLAN: A 57-year-old male with systemic inflammatory response syndrome due to acute on chronic congestive heart failure, clinically improved; chronic obstructive lung disease and status post automatic implantable cardioverter-defibrillator placement, atrial fibrillation, anticoagulation, chronic congestive heart failure. Currently off of antibiotics. The patient does have leukocytosis because of the Solu-Medrol, not looking toxic. We will monitor the white count with you. Nikolay Barba MD
[2017-08-11] MEDS: guaiFENesin-DM 600-30 mg ER Tab PO SCH ×2 (10:19→17:42)
--- NOTE | 2017-08-11 16:56 | PN ---
DATE: 08/11/2017 SUBJECTIVE: The patient is a 57-year-old, seen and examined while in Physical Therapy Department, doing well, participating in therapy, minimal shortness of breath, minimal cough. PHYSICAL EXAMINATION: VITAL SIGNS: Afebrile, pulse 72, respirations 20, blood pressure 127/79. LUNGS: Bilateral good airflow. No rhonchi or crackles. HEART: S1, S2 audible. ABDOMEN: Soft and nontender. No rebound. No guarding. NEUROLOGICAL: He is awake, alert, oriented, communicative. LABORATORY DATA: His PT is 20.3, INR is 1.75, blood sugar is 313. ASSESSMENT AND PLAN: 1. Status post chronic obstructive pulmonary disease exacerbation. 2. Chronic atrial fibrillation. 3. Morbid obesity. 4. Congestive heart failure, stable. 5. Status post defibrillator. 6. Insulin-dependent diabetes. 7. Hypertension. 8. Cardiomyopathy. 9. Peripheral vascular disease. PLAN: His INR is subtherapeutic. He will get 6.5 and give him 8 mg today and follow up PT and INR in a.m. Encourage ambulation and follow up the patient in a.m. Ridge Velazquez MD
--- NOTE | 2017-08-11 23:02 | PN ---
DATE: 08/11/2017 PULMONARY PROGRESS NOTE REFERRING PHYSICIAN: Dr. Axel Villagomez. SUBJECTIVE: He is out of bed to chair, feels much better, use BiPAP for a few hours. Cough and wheezing is better. No nausea, no vomiting, no diarrhea. Decreased leg swelling. OBJECTIVE: GENERAL: In no acute distress. VITAL SIGNS: Temperature is 98, heart rate is 77, respiratory rate is 20, blood pressure 113/67. HEENT: Moist mucous membrane. Crowded airway. Mallampati score is 4. NECK: Supple. No JVD. LUNGS: Has a prolonged expiratory phase. Still has some rhonchi. HEART: S1 and S2. ABDOMEN: Soft, nontender. No organomegaly. EXTREMITIES: There is decreased edema. NEUROLOGIC: Awake and alert, follows simple command. MEDICATIONS: He is on Mucomyst 3 mL inhaled twice a day, Aldactone 25 mg twice a day, glimepiride 4 mg daily, Ativan 1 mg twice a day, Cardizem 30 mg twice a day, Coreg 3.5 mg twice a day, Coumadin 4 mg supposed to be given tonight, trazodone 150 mg at bedtime, DuoNeb every 4 hours p.r.n. and every 6 hours [id number], metformin 1000 mg twice a day, insulin coverage, Lasix 40 mg twice a day, Levemir 30 units subcu a.c.b., Mucinex DM 600 mg twice a day, Neurontin 300 mg twice a day, nasal saline twice a day, Percocet 10/325 one tab every 6 hours p.r.n., promethazine 6.25 mg every 4 hours p.r.n., Pletal 100 mg twice a day, Pulmicort inhaled twice a day, Requip 0.5 mg at bedtime, Singulair 10 mg at bedtime, Solu-Medrol 40 mg twice a day, Tessalon Perles 100 mg three times a day, Tylenol p.r.n., Zestril 2.5 mg daily. LABORATORY DATA: Reviewed and noted. INR 1.75, blood sugar this morning 256. IMPRESSION AND PLAN: Chronic obstructive lung disease with exacerbation, cardiomyopathy, atrial fibrillation, history of ablation therapy, has automatic implantable cardioverter-defibrillator, hypertension, sleep apnea syndrome, obesity, thromboembolic disease, nonhealing leg ulcer. Probably also has gastroesophageal reflux disease, responding well to Reglan. We will decrease Solu-Medrol to 20 mg twice a day. Continue Mucinex. Continue inhaled bronchodilator. Anticoagulation. Fall precaution. Thank you and we will follow with you. Tia Godinez MD
[2017-08-12] MEDS: Albuterol-Ipratrop 3 mg / 0.5 (3 ml) UD IH SCH ×4 (02:40→13:17)
[2017-08-12 06:03] VITALS: RESP 18; TEMP 97.5
[2017-08-12] MEDS: Insulin Reg-MEDIUM-Coverage SC SCH ×4 (06:46→22:25)
[2017-08-12 07:54] LABS: INR 2.5 (0.93-1.08); PROTHROMBIN TIME 29.3 SECONDS (9.4-12.5)
--- NOTE | 2017-08-12 07:56 | CP.PCM.PN ---
Subjective - Date & Time of Evaluation Date of Evaluation: 08/12/17 Time of Evaluation: 07:10 - Subjective Subjective: Sitting on chair,no distress, denies chest pain and shortness of breath Reason for consultation and follow up: Continuity of care in TCU. Decompensated heart failure due to systolic dysfunction, cardiomyopathy, COPD, hypertension, diabetes mellitus, Atrial fibrillation, AICD/PPM, gastric bypass, morbid obesity , peripheral arterial disease, non obstructive coronary artery disease. Seen and examined by me and Dr. Cabello Objective - Vital Signs/Intake and Output Vital Signs (last 24 hours): Temp Pulse Resp BP Pulse Ox 97.5 F L 83 18 118/70 95 08/12/17 06:00 08/12/17 06:00 08/12/17 06:00 08/12/17 06:00 08/12/17 06:00 - Medications Medications: Current Medications Acetaminophen (Tylenol 325mg Tab) 650 mg PO Q4H PRN; Protocol PRN Reason: Fever >100.4 F Acetylcysteine (Acetylcysteine 20%) 3 ml IH BIDRESP [facility] PRN Reason: Protocol Last Admin: 08/11/17 21:40 Dose: Not Given Albuterol/Ipratropium (Duoneb 3 Mg/0.5 Mg (3 Ml) Ud) 3 ml IH [id number] PRN; Protocol PRN Reason: Shortness of Breath Albuterol/Ipratropium (Duoneb 3 Mg/0.5 Mg (3 Ml) Ud) 3 ml IH Q6 [facility] PRN Reason: Protocol Last Admin: 08/12/17 02:40 Dose: Not Given Benzonatate (Tessalon Perles) 100 mg PO TID [facility] Last Admin: 08/11/17 17:42 Dose: 100 mg Budesonide (Pulmicort Respules) 0.5 mg IH [id number] [facility] PRN Reason: Protocol Last Admin: 08/11/17 21:40 Dose: Not Given Carvedilol (Coreg) 3.125 mg PO 0800,1800 [facility] PRN Reason: Protocol Last Admin: 08/11/17 17:38 Dose: 3.125 mg Cilostazol (Pletal) 100 mg PO 0730,1700 [facility] PRN Reason: Protocol Last Admin: 08/11/17 17:37 Dose: 100 mg Diltiazem HCl (Cardizem) 30 mg PO BID [facility] PRN Reason: Protocol Last Admin: 08/11/17 17:38 Dose: 30 mg Furosemide (Lasix) 40 mg PO BID [facility] Last Admin: 08/11/17 17:41 Dose: 40 mg Gabapentin (Neurontin) 300 mg PO BID [facility] PRN Reason: Protocol Last Admin: 08/11/17 17:42 Dose: 300 mg Glimepiride (Amaryl) 4 mg PO 0800 [facility] PRN Reason: Protocol Last Admin: 08/11/17 08:05 Dose: 4 mg Guaifenesin/Dextromethorphan (Mucinex-Dm 600-30 Mg) 1 tab PO BID [facility] Last Admin: 08/11/17 17:42 Dose: 1 tab Insulin Detemir (Levemir) 30 unit SC ACBD [facility] PRN Reason: Protocol Last Admin: 08/11/17 17:36 Dose: 30 unit Insulin Human Regular (Humulin R Med) 0 units SC ACHS [facility] PRN Reason: Protocol Last Admin: 08/12/17 06:46 Dose: 7 units Insulin Human Regular (Humulin R) 5 units SC 0800,2000 [facility] PRN Reason: Protocol Last Admin: 08/11/17 21:17 Dose: 5 units Lisinopril (Zestril) 2.5 mg PO DAILY [facility] PRN Reason: Protocol Last Admin: 08/11/17 10:20 Dose: 2.5 mg Lorazepam (Ativan) 1 mg PO BID PRN; Protocol PRN Reason: Anxiety Last Admin: 08/11/17 21:25 Dose: 1 mg Metformin HCl (Glucophage) 1,000 mg PO 0800,1800 [facility] PRN Reason: Protocol Last Admin: 08/11/17 17:41 Dose: 1,000 mg Methylprednisolone (Solu-Medrol) 20 mg IVP 0800,2000 [facility] PRN Reason: Protocol Last Admin: 08/11/17 21:19 Dose: 20 mg Montelukast Sodium (Singulair) 10 mg PO HS [facility] PRN Reason: Protocol Last Admin: 08/11/17 21:19 Dose: 10 mg Oxycodone/Acetaminophen (Percocet 10/325 Mg Tab) 1 tab PO Q6H PRN; Protocol PRN Reason: Pain, severe (8-10) Last Admin: 08/10/17 17:45 Dose: 1 tab Promethazine HCl (Phenergan Syrup) 6.25 mg PO Q4H PRN; Protocol PRN Reason: Cough Ropinirole HCl (Requip) 0.5 mg PO HS [facility] PRN Reason: Protocol Last Admin: 08/11/17 21:19 Dose: 0.5 mg Sodium Chloride ([place] Nasal [place]) 0 ml NS BID [facility] PRN Reason: Protocol Last Admin: 08/11/17 17:42 Dose: 2 spr Spironolactone (Aldactone) 25 mg PO BID [facility] PRN Reason: Protocol Last Admin: 08/11/17 17:38 Dose: 25 mg Trazodone HCl (Desyrel) 150 mg PO HS [facility] PRN Reason: Protocol Last Admin: 08/11/17 21:17 Dose: 150 mg Warfarin Sodium (Coumadin) 4 mg PO 1800 [facility] Last Admin: 08/11/17 17:40 Dose: Not Given - Labs Labs: 08/10/17 06:50 08/10/17 06:00 PT 29.3 SECONDS (9.4-12.5) H 08/12/17 07:30 INR 2.50 (0.93-1.08) H 08/12/17 07:30 - Constitutional Appears: No Acute Distress - Head Exam Head Exam: NORMOCEPHALIC - ENT Exam ENT Exam: Mucous Membranes Moist - Respiratory Exam Respiratory Exam: Clear to Ausculation Bilateral, NORMAL BREATHING PATTERN - Cardiovascular Exam Cardiovascular Exam: +S1, +S2 Additional comments: PPM/AICD - GI/Abdominal Exam GI & Abdominal Exam: Soft, Normal Bowel Sounds - Extremities Exam Extremities Exam: Normal Capillary Refill Additional comments: walking with cane,steady gait - Neurological Exam Neurological Exam: Alert, Awake, Oriented x3 - Psychiatric Exam Psychiatric exam: Normal Affect, Normal Mood - Skin Skin Exam: Intact, Normal Color, Warm Assessment and Plan - Assessment and Plan (Free Text) Assessment: A 57 year old male who came in to the ER due to shortness of breath. History of Decompensated heart failure due to systolic dysfunction, cardiomyopathy,COPD, hypertension, diabetes mellitus, Atrial fibrillation, AICD/PPM, gastric bypass, morbid obesity, peripheral arterial disease,non obstructive coronary artery disease. He was given IV Primacor drip for 48 hours, steroids and antibiotics and gradually resolved pulmonary symptoms. Transferred to TCU for reconditioning.Physical therapy Plan: Cardiac status stable CHF stable Controlled heart rate and blood pressure No respiratory distress, expiratory wheezing, cough Continue respiratory treatment and Solumedrol Followed up by pulmonary Physical therapy in progress, uses cane to walk Continue current treatment Continue current medications Fall precautions Discharge planning, possible discharge Sunday Will follow up Plan and treatment discussed with Dr. Cabello
[2017-08-12] MEDS: Cilostazol 100 mg Tab UD PO SCH ×2 (08:09→17:49)
[2017-08-12] MEDS: Insulin Detemir 100 units/ml Vial (Levemir) SC SCH ×2 (08:09→17:47)
[2017-08-12] MEDS: MethylPREDNISolone 40 mg Vial IVP SCH ×2 (08:11→22:34)
[2017-08-12] MEDS: Insulin Regular 1 UNITS/0.01 ML ML SC SCH (08:11)
[2017-08-12] MEDS: Acetylcysteine 20% Inhal Soln (4ml) IH SCH (08:52)
[2017-08-12] MEDS: Budesonide 0.5 mg/2 ml Inhal Susp UD IH SCH (08:53)
[2017-08-12] MEDS: guaiFENesin-DM 600-30 mg ER Tab PO SCH ×2 (10:13→17:51)
--- NOTE | 2017-08-12 13:49 | PN ---
DATE: 08/12/2017 SUBJECTIVE: The patient is seen earlier today. His congestion he states is much improved. Less short of breath, less cough. PHYSICAL EXAMINATION: VITAL SIGNS: Temperature is 98, blood pressure is 140/80, respiratory rate of 18, heart rate of 83. HEENT: Examination of HEENT is unremarkable. NECK: Supple. LUNGS: Have decreased breath sounds. HEART: Normal S1, S2. ABDOMEN: Soft. LABORATORY DATA: Laboratory examination reveals a white count of 17,800, hemoglobin of 13, platelets of 214. Chemistries are creatinine of 1.1. Microbiology is noted. ASSESSMENT AND PLAN: A 57-year-old male, seen earlier today in room 322 with systemic inflammatory response syndrome due to acute on chronic congestive heart failure, clinically improving; chronic obstructive lung disease; status post automatic implantable cardioverter-defibrillator; atrial fibrillation, on anticoagulation; chronic congestive heart failure. Currently off of antibiotics. Last white count was checked was 17,800, which probably is contributed due to the patient is being on Solu-Medrol. He is at risk for developing nosocomial infections. Nikolay Barba MD
[2017-08-12 16:37] VITALS: O2SAT 90
--- NOTE | 2017-08-12 17:18 | PN ---
DATE: 08/12/2017 SUBJECTIVE: The patient is 57 years old, seen and examined, sitting in chair. Seems to be comfortable. No nausea or vomiting. No diarrhea. Eating and tolerating. Ambulating. PHYSICAL EXAMINATION: VITAL SIGNS: He is afebrile, pulse 75, respirations 18, blood pressure 141/84. LUNGS: Bilateral fair airflow. No rhonchi or crackle. HEART: S1 and S2 audible. ABDOMEN: Soft. Nontender. No rebound. No guarding. NEUROLOGICAL: The patient is awake, alert, oriented, communicative. EXTREMITIES: Bilateral leg, no edema, no ulcer. LABORATORY EXAM: PT 29.3, INR 2.5. Blood sugar is 237. ASSESSMENT: 1. Morbid obesity. 2. Atrial fibrillation. 3. Hypertension. 4. Congestive heart failure. 5. Cardiomyopathy. 6. Insulin-dependent diabetes. 7. Hyperlipidemia. 8. Peripheral vascular disease, status post angioplasty. 9. Anxiety disorder. PLAN: Continue him on current medication. He will receive Coumadin 4 mg today. Continue nebulizer treatment. Plan for discharge in the a.m. Ridge Velazquez MD
--- NOTE | 2017-08-12 22:50 | PN ---
DATE: 08/12/2017 PULMONARY PROGRESS NOTE REFERRING PHYSICIAN: Dr. Axel Villagomez. SUBJECTIVE: He is out of bed to chair, feels much better. Decreased cough, decreased shortness of breath. No nausea, no vomiting, no diarrhea. Decreased leg swelling. OBJECTIVE: GENERAL: In no acute distress. VITAL SIGNS: Temperature is 98, heart rate is 77, respiratory rate is 20, blood pressure 118/68, pulse ox is 90% on room air. HEENT: Moist mucous membrane. Crowded airway. NECK: Supple. No JVD. LUNGS: Has a much better airflow. No wheezing. No rhonchi. HEART: S1 and S2. ABDOMEN: Soft, nontender. No organomegaly. EXTREMITIES: There is decreased edema. NEUROLOGIC: Awake and alert, follows simple command. MEDICATIONS: He is on Mucomyst inhaled twice a day, Aldactone 25 mg twice a day, glimepiride 4 mg daily, Ativan 1 mg twice a day p.r.n., Cardizem 30 mg twice a day, Coreg 3.125 mg twice a day, Coumadin 4 mg given tonight, trazodone 50 mg daily, DuoNeb every 4 hours p.r.n., DuoNeb every 6 hours [id number], metformin 1000 mg twice a day, insulin coverage, Lasix 40 mg twice a day, Levemir 30 units subcu a.c.b.d., Mucinex DM 600/30 one tab twice a day, gabapentin 300 mg twice a day, Percocet 10/325 one tab every 6 hours p.r.n., promethazine 6.25 mg every 4 hours p.r.n., Pletal 100 mg twice a day, Pulmicort inhaled twice a day, Requip 0.5 mg at bedtime, Singulair 10 mg daily, Solu-Medrol 20 mg every 12 hour, Tessalon Perles 100 mg three times a day, Tylenol p.r.n., Zestril 2.5 mg daily. LABORATORY DATA: Reviewed. INR this morning is 2.5, blood sugar this morning 205. IMPRESSION AND PLAN: Chronic obstructive lung disease with exacerbation, cardiomyopathy, atrial fibrillation, history of ablation therapy, has automatic implantable cardioverter-defibrillator, hypertension, sleep apnea syndrome, obesity, thromboembolic disease, nonhealing leg ulcer. Pulmonary point of view, doing okay. We will discontinue Solu-Medrol, discontinue IV insulin. Place prednisone 10 mg daily and taper off next three days or so. Continue diuretics, anticoagulation. Fall precaution. Encourage CPAP use. Thank you and we will follow with you. Tia Godinez MD
[2017-08-13] MEDS: Albuterol-Ipratrop 3 mg / 0.5 (3 ml) UD IH SCH ×2 (02:49→07:19)
[2017-08-13] MEDS: Insulin Detemir 100 units/ml Vial (Levemir) SC SCH (06:52)
[2017-08-13] MEDS: Insulin Reg-MEDIUM-Coverage SC SCH (06:53)
--- NOTE | 2017-08-13 07:06 | CP.PCM.PN ---
Subjective - Date & Time of Evaluation Date of Evaluation: 08/13/17 Time of Evaluation: 06:45 - Subjective Subjective: Feels okay, awake, sitting on chair,no distress, denies chest pain and shortness of breath Reason for consultation and follow up: Continuity of care in TCU. Decompensated heart failure due to systolic dysfunction, cardiomyopathy, COPD, hypertension, diabetes mellitus, Atrial fibrillation, AICD/PPM, gastric bypass, morbid obesity , peripheral arterial disease, non obstructive coronary artery disease. Seen and examined by me and Dr. Cabello Objective - Vital Signs/Intake and Output Vital Signs (last 24 hours): Temp Pulse Resp BP Pulse Ox 97.5 F L 77 18 118/68 90 L 08/12/17 06:00 08/12/17 17:50 08/12/17 06:00 08/12/17 17:51 08/12/17 16:31 - Medications Medications: Current Medications Acetaminophen (Tylenol 325mg Tab) 650 mg PO Q4H PRN; Protocol PRN Reason: Fever >100.4 F Acetylcysteine (Acetylcysteine 20%) 3 ml IH BIDRESP [place] PRN Reason: Protocol Last Admin: 08/12/17 08:52 Dose: Not Given Albuterol/Ipratropium (Duoneb 3 Mg/0.5 Mg (3 Ml) Ud) 3 ml IH [id number] PRN; Protocol PRN Reason: Shortness of Breath Albuterol/Ipratropium (Duoneb 3 Mg/0.5 Mg (3 Ml) Ud) 3 ml IH Q6 [place] PRN Reason: Protocol Last Admin: 08/13/17 02:49 Dose: Not Given Benzonatate (Tessalon Perles) 100 mg PO TID [facility] Last Admin: 08/12/17 17:52 Dose: 100 mg Budesonide (Pulmicort Respules) 0.5 mg IH [id number] [place] PRN Reason: Protocol Last Admin: 08/12/17 08:53 Dose: Not Given Carvedilol (Coreg) 3.125 mg PO 0800,1800 [facility] PRN Reason: Protocol Last Admin: 08/12/17 17:50 Dose: 3.125 mg Cilostazol (Pletal) 100 mg PO 0730,1700 [facility] PRN Reason: Protocol Last Admin: 08/12/17 17:49 Dose: 100 mg Diltiazem HCl (Cardizem) 30 mg PO BID [place] PRN Reason: Protocol Last Admin: 08/12/17 17:50 Dose: 30 mg Furosemide (Lasix) 40 mg PO BID [place] Last Admin: 08/12/17 17:51 Dose: 40 mg Gabapentin (Neurontin) 300 mg PO BID [place] PRN Reason: Protocol Last Admin: 08/12/17 17:52 Dose: 300 mg Glimepiride (Amaryl) 4 mg PO 0800 [facility] PRN Reason: Protocol Last Admin: 08/12/17 08:10 Dose: 4 mg Guaifenesin/Dextromethorphan (Mucinex-Dm 600-30 Mg) 1 tab PO BID [facility] Last Admin: 08/12/17 17:51 Dose: 1 tab Insulin Detemir (Levemir) 30 unit SC ACBD [facility] PRN Reason: Protocol Last Admin: 08/13/17 06:52 Dose: 30 unit Insulin Human Regular (Humulin R Med) 0 units SC ACHS [facility] PRN Reason: Protocol Last Admin: 08/13/17 06:53 Dose: 5 units Lisinopril (Zestril) 2.5 mg PO DAILY [place] PRN Reason: Protocol Last Admin: 08/12/17 10:14 Dose: 2.5 mg Lorazepam (Ativan) 1 mg PO BID PRN; Protocol PRN Reason: Anxiety Last Admin: 08/12/17 22:38 Dose: 1 mg Metformin HCl (Glucophage) 1,000 mg PO 0800,1800 [facility] PRN Reason: Protocol Last Admin: 08/12/17 17:51 Dose: 1,000 mg Methylprednisolone (Solu-Medrol) 20 mg IVP 0800,2000 [facility] PRN Reason: Protocol Last Admin: 08/12/17 22:34 Dose: 20 mg Montelukast Sodium (Singulair) 10 mg PO HS [place] PRN Reason: Protocol Last Admin: 08/12/17 22:37 Dose: 10 mg Oxycodone/Acetaminophen (Percocet 10/325 Mg Tab) 1 tab PO Q6H PRN; Protocol PRN Reason: Pain, severe (8-10) Last Admin: 08/10/17 17:45 Dose: 1 tab Promethazine HCl (Phenergan Syrup) 6.25 mg PO Q4H PRN; Protocol PRN Reason: Cough Ropinirole HCl (Requip) 0.5 mg PO HS [place] PRN Reason: Protocol Last Admin: 08/12/17 22:37 Dose: 0.5 mg Sodium Chloride ([place] Nasal [place]) 0 ml NS BID [place] PRN Reason: Protocol Last Admin: 08/12/17 17:52 Dose: Not Given Spironolactone (Aldactone) 25 mg PO BID [place] PRN Reason: Protocol Last Admin: 08/12/17 17:49 Dose: 25 mg Trazodone HCl (Desyrel) 150 mg PO HS [place] PRN Reason: Protocol Last Admin: 08/12/17 22:37 Dose: 150 mg Warfarin Sodium (Coumadin) 4 mg PO 1800 [facility] Last Admin: 08/12/17 17:51 Dose: 4 mg - Labs Labs: 08/10/17 06:50 08/10/17 06:00 PT 29.3 SECONDS (9.4-12.5) H 08/12/17 07:30 INR 2.50 (0.93-1.08) H 08/12/17 07:30 - Constitutional Appears: No Acute Distress - Eye Exam Eye Exam: Normal appearance - ENT Exam ENT Exam: Mucous Membranes Moist - Respiratory Exam Respiratory Exam: Clear to Ausculation Bilateral, NORMAL BREATHING PATTERN - Cardiovascular Exam Additional comments: PPM/AICD - GI/Abdominal Exam GI & Abdominal Exam: Soft, Normal Bowel Sounds - Exam Additional comments: continent/goes to bathroom - Extremities Exam Extremities Exam: Normal Capillary Refill Additional comments: uses cane to walk, steady gait - Neurological Exam Neurological Exam: Alert, Awake, Oriented x3 - Psychiatric Exam Psychiatric exam: Normal Affect, Normal Mood - Skin Skin Exam: Intact, Normal Color, Warm Assessment and Plan - Assessment and Plan (Free Text) Assessment: A 57 year old male who came in to the ER due to shortness of breath. History of Decompensated heart failure due to systolic dysfunction, cardiomyopathy,COPD, hypertension, diabetes mellitus, Atrial fibrillation, AICD/PPM, gastric bypass, morbid obesity, peripheral arterial disease,non obstructive coronary artery disease. He was given IV Primacor drip for 48 hours, steroids and antibiotics and gradually resolved pulmonary symptoms. Transferred to TCU for reconditioning.Physical therapy Plan: Walking with cane with steady balance Cardiac status stable CHF stable Controlled heart rate and blood pressure Continue current treatment Continue current medications Fall precautions Stable to discharge cardiac standpoint Follow up in the office in 2-3 weeks Possible discharge today Plan and treatment discussed with Dr. Cabello
[2017-08-13] MEDS: Acetylcysteine 20% Inhal Soln (4ml) IH SCH (07:19)
[2017-08-13] MEDS: Budesonide 0.5 mg/2 ml Inhal Susp UD IH SCH (07:19)
[2017-08-13] MEDS: Cilostazol 100 mg Tab UD PO SCH (07:56)
[2017-08-13] MEDS: MethylPREDNISolone 40 mg Vial IVP SCH (07:57)
--- NOTE | 2017-08-13 09:41 | PN ---
DATE: 08/13/2017 SUBJECTIVE: The patient is in bed, in no acute distress, nontoxic. PHYSICAL EXAMINATION: VITAL SIGNS: Temperature is 98, blood pressure is 118/60, respiratory rate of 18. HEENT: Examination of HEENT is unremarkable. NECK: Supple. LUNGS: Have decreased breath sounds. HEART: Normal S1, S2. ABDOMEN: Soft, nontender. LABORATORY DATA: Laboratory examination reveals the patient to have white count of 17,800, hemoglobin of 13, platelets of 214. Chemistries are noted. Review of orders reveals the patient to be off of antibiotics. The patient is on Solu-Medrol. ASSESSMENT AND PLAN: A 57-year-old male, who was seen earlier today at 03:22, comfortable with systemic inflammatory response syndrome due to acute on chronic congestive heart failure and chronic obstructive lung disease and automatic implantable cardioverter-defibrillator, atrial fibrillation, on anticoagulation. Currently off of antibiotics, afebrile. The patient does have mild leukocytosis of 17,800 secondary to Solu-Medrol the patient is receiving. We will continue to follow closely off of antibiotics. The patient is at risk for developing nosocomial infections. Nikolay Barba MD
[2017-08-13] MEDS: guaiFENesin-DM 600-30 mg ER Tab PO SCH (10:03)
[2017-08-13 10:06] VITALS: BP 138/81; PULSE 73
--- NOTE | 2017-08-14 09:42 | DS ---
HISTORY OF PRESENT ILLNESS: The patient is 57 years old, who was admitted in TCU for rehab and close monitoring. The patient was admitted initially for shortness of breath. He was in congestive heart failure with history of atrial fibrillation, status post pacemaker and defibrillator placement and PVD and also has history of insulin-dependent diabetes, who has been closely monitored; received physical therapy, doing well and being discharged today. PHYSICAL EXAMINATION: GENERAL: He is awake, alert, oriented, communicative. 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 VITAL SIGNS: Today, he is afebrile, pulse 76, respirations 20, blood pressure 135/82. LUNGS: Bilateral good airflow. No rhonchi or crackle. HEART: S1 and S2 audible. ABDOMEN: Soft, obese, nontender. No rebound. No guarding. NEUROLOGICAL: The patient is awake and alert, able to communicate. LABORATORY DATA: Yesterday, PT was 29.3, INR 2.50. ASSESSMENT AND PLAN: 1. Morbid obesity. 2. Congestive heart failure. 3. Coronary artery disease. 4. Chronic atrial fibrillation. 5. Status post pacemaker defibrillator placement. 6. Anxiety disorder. 7. Restless legs syndrome. PLAN: The patient is being discharged home today. He will resume all his medication that include nebulizer treatment. He is on gabapentin 300 twice a day, Lasix 80 mg every 12 hours. He is on Pletal 100 mg b.i.d. He is on Levemir 30 units twice a day, Coumadin 7 mg daily, metformin 1000 twice a day, lisinopril 2.5 daily. He is on trazodone. He is on metolazone, ReQuip 0.5 at bedtime, diltiazem 30 mg twice a day, Singulair 10 mg at bedtime and Ativan 1 mg twice a day. He will follow up with Dr. Villagomez as outpatient. Ridge Velazquez MD
== END 2017-08-13 11:51 | disposition home or self-care (01) | DRG 292 ==
LOC: TRCU 17:10
PROVIDERS: ADMIT Internal Medicine Nephrology; ATTEND Internal Medicine Nephrology
PROC: 3E0F7GC Introduction of Other Therapeutic Substance into Respiratory Tract, Via Natural or Artificial Opening (ICD-10-PCS; 2017-08-06)
PROC: F07Z9FZ Gait Training/Functional Ambulation Treatment using Assistive, Adaptive, Supportive or Protective Equipment (ICD-10-PCS; principal; 2017-08-07)
PROC: F08Z4FZ Home Management Treatment using Assistive, Adaptive, Supportive or Protective Equipment (ICD-10-PCS; 2017-08-07)
DX: I11.0 Hypertensive heart disease with heart failure (principal); Z68.41 Body mass index [BMI] 40.0-44.9, adult; L97.909 Non-pressure chronic ulcer of unspecified part of unspecified lower leg with unspecified severity; J44.1 Chronic obstructive pulmonary disease with (acute) exacerbation; R65.10 Systemic inflammatory response syndrome (SIRS) of non-infectious origin without acute organ dysfunction; I50.23 Acute on chronic systolic (congestive) heart failure; E11.51 Type 2 diabetes mellitus with diabetic peripheral angiopathy without gangrene; I48.2 Chronic atrial fibrillation; G25.81 Restless legs syndrome; E66.01 Morbid (severe) obesity due to excess calories; E11.40 Type 2 diabetes mellitus with diabetic neuropathy, unspecified; I25.10 Atherosclerotic heart disease of native coronary artery without angina pectoris; F41.9 Anxiety disorder, unspecified; G47.33 Obstructive sleep apnea (adult) (pediatric); F31.9 Bipolar disorder, unspecified; I42.9 Cardiomyopathy, unspecified; E11.622 Type 2 diabetes mellitus with other skin ulcer; K21.9 Gastro-esophageal reflux disease without esophagitis; E78.5 Hyperlipidemia, unspecified; Z79.01 Long term (current) use of anticoagulants; Z79.4 Long term (current) use of insulin; Z91.19 Patient's noncompliance with other medical treatment and regimen; Z95.810 Presence of automatic (implantable) cardiac defibrillator; Z98.84 Bariatric surgery status; Z87.891 Personal history of nicotine dependence

== ENCOUNTER 2017-09-01 16:11 | Inpatient (IN) | payer MEDICARE, OTHER ==
[2017-09-01 16:11] VITALS: PULSE 74
[2017-09-01] MEDS ORDERED: Aspirin 325 mg EC Tablets PO STA (17:04)
[2017-09-01] MEDS ORDERED: Ipratropium 0.02% Inhal Soln (0.5 mg/2.5 ml) UD IH STA (17:04)
[2017-09-01 17:14] LABS: BASO # 0.04 K/mm3 (0.0-2.0); BASO % 0.5 % (0.0-3.0); EOS # 0.2 (0.0-0.7); EOS % 2.9 % (1.5-5.0); GRAN # 5.52 (1.4-6.5); GRAN % 69.8 % (50.0-68.0); HEMOGLOBIN 12.5 g/dL (14.0-18.0); LYMPH # 1.7 (1.2-3.4); MEAN CELL VOLUME 80.6 fl (80.0-105.0); MEAN CORPUSCULAR HGB CONC 32.3 g/dl (31.0-37.0); MEAN PLATELET VOLUME 9.8 fl (7.0-11.0); MONO # 0.5 (0.1-0.6); MONO % 5.8 % (1.0-6.0); RBC 4.8 10^6/uL (3.5-6.1); RED CELL DISTRIBUTION WIDTH 16.8 % (11.5-14.5); WHITE BLOOD COUNT 7.9 10^3/ul (4.5-11.0)
[2017-09-01 17:22] LABS: INR 2.12 (0.93-1.08); PARTIAL THROMBOPLASTIN TIME 31.9 Seconds (25.1-36.5); PROTHROMBIN TIME 24.6 SECONDS (9.4-12.5)
[2017-09-01 17:25] LABS: B-TYPE NATRIURETIC PEPTIDE 1660 pg/mL (0-450); TROPONIN I 0.04 ng/mL
[2017-09-01 17:38] LABS: ALB/GLOB RATIO 1.4 (1.1-1.8); ALBUMIN 3.8 g/dL (3.0-4.8); ALT/SGPT 34 U/L (7-56); AST/SGOT 26 U/L (17-59); BLOOD UREA NITROGEN 17 mg/dL (7-21); CALCIUM 8.9 mg/dL (8.4-10.5); GFR AFRICAN-AMERICAN > 60; GFR NON-AFRICAN AMERICAN > 60
[2017-09-01] MEDS ORDERED: Oxycodone/Acetaminophen 5/325 mg Tab PO STA (17:38)
--- NOTE | 2017-09-01 17:39 | RAD ---
HISTORY: Routine medical exam COMPARISON: Comparison chest dated 08/05/2017. FINDINGS: LUNGS: Low lung volumes with crowded bronchovascular markings and mild bibasilar atelectasis PLEURA: No significant pleural effusion identified, no pneumothorax apparent. CARDIOVASCULAR: Cardiomegaly. . No change multi lead pacemaker - defibrillator OSSEOUS STRUCTURES: No significant abnormalities. VISUALIZED UPPER ABDOMEN: Normal. OTHER FINDINGS: None. IMPRESSION: Low lung volumes with crowded bronchovascular markings and mild bibasilar atelectasis Cardiomegaly.
[2017-09-01] MEDS ORDERED: Oxycodone/Acetaminophen 10/325 mg Tab PO STA (17:40)
[2017-09-01 17:50] LABS: PH,URINE 5.5 (4.7-8.0); URINE APPEARANCE CLEAR (CLEAR); URINE BILIRUBIN NEGATIVE (NEGATIVE); URINE BLOOD NEGATIVE (NEGATIVE); URINE COLOR YELLOW (YELLOW); URINE GLUCOSE (UA) NEGATIVE (NEGATIVE); URINE LEUKOCYTE ESTERASE NEGATIVE Leu/uL (NEGATIVE); URINE PROTEIN NEGATIVE mg/dL (<30 mg/dL); URINE UROBILINOGEN 0.2 E.U./dL (<1 E.U./dL)
[2017-09-01] MEDS ORDERED: Magnesium Sulfate 2 gm/50 ml 2 GM/50 ML BAG IVPB ONE (17:57)
[2017-09-01] MEDS ORDERED: Amiodarone 150 mg/D5W 100 ml 150 MG/100 ML BAG IVPB ONE (17:58)
--- NOTE | 2017-09-01 18:16 | ED PDOC ---
Arrival/HPI - General Chief Complaint: Chest Pain Time Seen by Provider: 09/01/17 16:27 Historian: Patient - History of Present Illness Narrative History of Present Illness (Text): 09/01/17 18:12 A 57 year old male, whose past medical history includes chronic A fib, COPD, CHF (on Coumadin), CAD, pacemaker, Diabetes, depression, bipolar, anxiety, s/p pacemaker and defibrillator placement, presents to the emergency department complaining of his pacemaker firing off. He states that his chest pain was reminiscing of [facility]. He also complains of right knee and right SI joint pain. He notes that they have been more painful recently. The patient also complains of constipation. The patient denies fevers, chills, cold diaphoresis, headache, dizziness, shortness of breath, dyspnea on exertion, cough, abdominal pain, nausea, vomiting, diarrhea, back pain, neck pain, urinary changes, or any other complaint. Time/Duration: Prior to Arrival Symptom Onset: Sudden Symptom Course: Unchanged Activities at Onset: Rest, Light Context: Home Past Medical History - Provider Review Nursing Documentation Reviewed: Yes - Infectious Disease Hx of Infectious Diseases: None - Tetanus Immunization Tetanus Immunization: Unknown - Cardiac Hx Cardiac Disorders: Yes Hx Congestive Heart Failure: Yes Hx Hypertension: Yes - Pulmonary Hx Chronic Obstructive Pulmonary Disease (COPD): Yes - Neurological Hx Dizziness: Yes Other/Comment: numbness both thighs, pt stated "I was in a coma for 2 weeks from seroquel - HEENT Hx HEENT Disorder: Yes (eyeglasses, [place]) Other/Comment: eye sx for strabismus - Renal Hx Renal Disorder: No - Endocrine/Metabolic Hx Diabetes Mellitus Type 2: Yes - Hematological/Oncological Hx Cancer: No - Integumentary Hx Dermatological Disorder: Yes Other/Comment: ble slight redness discolorations dry skin 1.5cm x 1cm dry deep red scabb to outer lower left leg surrounded by red,dry skin, c/o severe pain - Musculoskeletal/Rheumatological Hx Falls: No - Gastrointestinal Hx Gastrointestinal Disorders: No - Genitourinary/Gynecological Hx Reproductive Disorders: No - Psychiatric Hx Anxiety: Yes Hx Bipolar Disorder: Yes Hx Depression: Yes Hx Substance Use: No Other/Comment: quit smoking, drinking, cocaine use 25 yrs ago - Past Surgical History Past Surgical History: Non-Contributing - Surgical History Hx Mastectomy: No - Anesthesia Hx Anesthesia Reactions: No Hx Malignant Hyperthermia: No - Suicidal Assessment Feels Threatened In Home Enviroment: No Family/Social History - Physician Review Nursing Documentation Reviewed: Yes Family/Social History: No Known Family HX Smoking Status: Former Smoker Hx Alcohol Use: No Hx Substance Use: No Hx Substance Use Treatment: Yes Allergies/Home Meds Allergies/Adverse Reactions: Allergies quetiapine fumarate [From Seroquel] Adverse Reaction (Verified 09/01/17 16:20) ANAPHYLAXIS wild berries Allergy (Intermediate, Uncoded 08/01/17 16:48) RASH Home Medications: Home Meds Medication Instructions Recorded Confirmed Warfarin [Coumadin] 7 mg PO HS 05/14/17 09/01/17 Furosemide [Lasix] 80 mg PO TID 07/12/17 09/01/17 Albuterol/Ipratropium [Duoneb 3 3 ml IH PRN PRN 09/01/17 09/01/17 mg/0.5 mg (3 ml) UD] Insulin Detemir [Levemir] 40 unit SC ACBD 09/01/17 09/01/17 Review of Systems - Physician Review All systems were reviewed & negative as marked: Yes - Review of Systems Constitutional: absent: Fevers, Night Sweats Respiratory: absent: SOB, Cough Cardiovascular: Chest Pain, Other (Pacemaker fired off. ). absent: LAM Gastrointestinal: Constipation. absent: Abdominal Pain, Diarrhea, Nausea, Vomiting Genitourinary Male: absent: Urinary Output Changes Musculoskeletal: Other (Right knee and right SI joint pain. ). absent: Back Pain, Neck Pain Neurological: absent: Headache, Dizziness Physical Exam Vital Signs Reviewed: Yes Vital Signs Temp Pulse Resp BP Pulse Ox 09/01/17 19:03 72 20 105/66 97 09/01/17 18:55 77 105/66 09/01/17 18:47 77 105/66 09/01/17 16:19 97.6 F 77 18 101/65 95 Temperature: Afebrile Blood Pressure: Normal Pulse: Regular Respiratory Rate: Normal Appearance: Positive for: Well-Appearing, Non-Toxic, Comfortable Pain Distress: None Mental Status: Positive for: Alert and Oriented X 3 - Systems Exam Head: Present: Atraumatic, Normocephalic Pupils: Present: PERRL Extroacular Muscles: Present: EOMI Conjunctiva: Present: Normal Mouth: Present: Moist Mucous Membranes Neck: Present: Normal Range of Motion Respiratory/Chest: Present: Wheezes (ocassional expiratory wheezes. ), Decreased Breath Sounds (Decreased i/e ratio. ), Other (Palpable pacemaker in left upper chest. Non-tender to touch.) Cardiovascular: Present: Regular Rate and Rhythm, Normal S1, S2. No: Murmurs Abdomen: Present: Other (Obese abdomen. Soft. Non-tender). No: Tenderness, Distention, Peritoneal Signs Back: Present: Normal Inspection Upper Extremity: Present: Normal Inspection. No: Cyanosis, Edema Lower Extremity: Present: Edema (Bilateral lower extremity edema. Right worse than left. ) Neurological: Present: GCS=15, CN II-XII Intact, Speech Normal Skin: Present: Warm, Dry, Normal Color. No: Rashes Psychiatric: Present: Alert, Oriented x 3, Normal Insight, Normal Concentration Medical Decision Making ED Course and Treatment: 09/01/17 18:12 Impression: A 57 year old male presents to the emergency department for further evaluation after his pacemaker fired off due to chest pain that felt similar to his past [facility] , right knee pain, and constipation. Plan: -- EKG -- Urine Culture -- Cordarone, Ecotrin, Atrovent, Magnesium Sulfate, Amiodarone, Percocet -- Reassess and disposition Progress Notes: EKG: Ordered, reviewed, and independently interpreted the EKG. Rate : 86 BPM Rhythm : Paced 09/01/17 18:55 communication of lb results as well as ekg results and pt presenttion with Dr. Rios , covering for Dr. PEMBERTON, whom advised magnesium repletion,telemetry admission as well as 150 mg amiodarone IV loading dose and 400 mg bid amiodarone thereafter,and he will see the patent to interogate the pacemaker 09/01/17 19:12 - Lab Interpretations Lab Results: 09/01/17 16:45 09/01/17 16:45 Lab Results 09/01/17 17:10: Urine Color Yellow, Urine Appearance Clear, Urine pH 5.5, Ur Specific Shepherd 1.010, Urine Protein Negative, Urine Glucose (UA) Negative, Urine Ketones Negative, Urine Blood Negative, Urine Nitrate Negative, Urine Bilirubin Negative, Urine Urobilinogen 0.2, Ur Leukocyte Esterase Negative 09/01/17 16:45: Sodium 143, Potassium 3.8, Chloride 105, Carbon Dioxide 27, Anion Gap 14, BUN 17, Creatinine 0.9, Est GFR ( Amer) > 60, Est GFR (Non- Af Amer) > 60, Random Glucose 119 H, Calcium 8.9, Magnesium 1.4 L, Total Bilirubin 0.4, AST 26, ALT 34, Alkaline Phosphatase 63, Lactate Dehydrogenase 461, Total Creatine Kinase 86, Troponin I 0.04, NT-Pro-B Natriuret Pep 1660 H, Total Protein 6.5, Albumin 3.8, Globulin 2.8, Albumin/Globulin Ratio 1.4 09/01/17 16:45: PT 24.6 H, INR 2.12 H, APTT 31.9 09/01/17 16:45: WBC 7.9 D, RBC 4.80, Hgb 12.5 L, Hct 38.7 L, MCV 80.6, MCH 26.0 , MCHC 32.3, RDW 16.8 H, Plt Count 142, MPV 9.8, Gran % 69.8 H, Lymph % (Auto) 21.0 L, [place] % (Auto) 5.8, Eos % (Auto) 2.9, Baso % (Auto) 0.5, Gran # 5.52, Lymph # (Auto) 1.7, [place] # (Auto) 0.5, Eos # (Auto) 0.2, Baso # (Auto) 0.04 - RAD Interpretation Radiology Orders: 09/01/17 16:27 CHEST PORTABLE [RAD] Stat - EKG Interpretation Interpreted by ED Physician: Yes Type: 12 lead EKG - Medication Orders Current Medication Orders: Discontinued Medications Amiodarone HCl (Cordarone) 400 mg PO BID STA Stop: 09/01/17 18:01 Last Admin: 09/01/17 18:55 Dose: 400 mg MAR Pulse and Blood Pressure Document 09/01/17 18:55 SRE (Rec: 09/01/17 18:56 SRE [id number]) Pulse Pulse Rate (60-90 beats/min) 77 Blood Pressure Blood Pressure (100/60-150/90 mm Hg) 105/66 Aspirin (Ecotrin) 325 mg PO STAT STA Stop: 09/01/17 17:05 Last Admin: 09/01/17 17:17 Dose: 325 mg Amiodarone HCl/Dextrose (Nexterone 150 Mg In Dextrose 100 Ml (Premix)) 150 mg in 100 mls @ 600 mls/hr IVPB ONCE ONE PRN Reason: Protocol Stop: 09/01/17 18:07 Last Admin: 09/01/17 18:56 Dose: 600 mls/hr eMAR Start Stop Document 09/01/17 18:56 SRE (Rec: 09/01/17 18:56 SRE [id number]) Intravenous Solution Start Date 09/01/17 Start Time 18:50 End Date 09/01/17 End time 19:00 Total Infusion Time 10 Magnesium Sulfate (Magnesium Sulfate 2 Gm/50 Ml Water) 2 gm in 50 mls @ 50 mls/ hr IVPB ONCE ONE Stop: 09/01/17 18:56 Last Admin: 09/01/17 18:57 Dose: 50 mls/hr eMAR Start Stop Document 09/01/17 18:57 SRE (Rec: 09/01/17 19:03 SRE [id number]) Intravenous Solution Start Date 09/01/17 Start Time 19:02 End Date 09/01/17 End time 19:35 Total Infusion Time 33 Ipratropium [place] (Atrovent) 0.5 mg IH STAT STA Stop: 09/01/17 17:05 Last Admin: 09/01/17 17:17 Dose: 0.5 mg Oxycodone/Acetaminophen (Percocet 10/325 Mg Tab) 1 tab PO STAT STA Stop: 09/01/17 17:41 Last Admin: 18 18:55 Dose: 1 tab MAR Pain Assessment Document 09/01/17 18:55 SRE (Rec: 09/01/17 18:57 SRE [id number]) Pain Reassessment Is this a pain reassessment? No Sleep Is patient sleeping during reassessment? Yes Pain Scale Used Pain Scale Used Numeric Location Pain Location Body Site Chest Back Description Description Intermittent - Scribe Statement The provider has reviewed the documentation as recorded by the Celeste Bettencourt Provider Scribe Attestation: All medical record entries made by the Scribe were at my direction and personally dictated by me. I have reviewed the chart and agree that the record accurately reflects my personal performance of the history, physical exam, medical decision making, and the department course for this patient. I have also personally directed, reviewed, and agree with the discharge instructions and disposition. Disposition/Present on Arrival - Present on Arrival Any Indicators Present on Arrival: No History of DVT/PE: No History of Uncontrolled Diabetes: No Urinary Catheter: No History of Decub. Ulcer: No History Surgical Site Infection Following: None - Disposition Have Diagnosis and Disposition been Completed?: Yes Diagnosis: Chest pain, Pacemaker complications Disposition: HOSPITALIZED Disposition Time: 19:11 Patient Plan: Admission Condition: GUARDED
[2017-09-01 22:28] VITALS: BMI 41.8
[2017-09-01] MEDS ORDERED: Pneumococcal 23-Valent Vaccine IM ONE (22:28)
--- NOTE | 2017-09-02 10:42 | HP ---
DATE OF EXAM: 09/02/2017 HISTORY OF PRESENT ILLNESS: Mr. Johnson is a 57-year-old male admitted to the hospital when he noticed that the pacemaker was firing off. He has history of DVT, currently on Coumadin with therapeutic INR. History of atrial fibrillation, congestive cardiac failure. History of COPD, no issues right now. No shortness of breath, no chest pain, no dyspnea on exertion. He has diabetes mellitus type 2, controlled with current medications; history of bipolar and depression. Follows with Psych. No fever, no cough with expectoration. PAST MEDICAL HISTORY: Atrial fibrillation, DVT, CAD, pacemaker, diabetes mellitus, bipolar depression, CHF. PAST SURGICAL HISTORY: Pacemaker placement. PERSONAL HISTORY: Former smoker. No history of alcohol abuse. SOCIAL HISTORY: Lives at home. ALLERGIES: SEROQUEL, WILD BERRIES. HOME MEDICATIONS: Coumadin, Lasix, albuterol, Levemir. REVIEW OF SYSTEMS: As per HPI. Rest of 12-point review of systems reviewed negative. PHYSICAL EXAMINATION: GENERAL: Comfortable in bed, in no acute distress. VITAL SIGNS: Temperature 97.8, heart rate 70 per minute, respiratory rate 18 per minute, blood pressure 105/65, oxygen saturation 97% on room air. HEENT: Pallor positive. NECK: No lymphadenopathy. CHEST: Air entry present bilateral. No added sound. CARDIOVASCULAR: S1, S2 normal. No murmur. No gallop. ABDOMEN: Soft, nontender. No hepatosplenomegaly. EXTREMITY: No edema. [employer]: Spine nontender. LABORATORY DATA: White count 7.9, hemoglobin 12.5, hematocrit 38.7, platelet 142. Sodium 143, potassium 3.8, BUN 17, creatinine 0.9, glucose 119. Chest x-ray: No infiltrate. ASSESSMENT: 1. Pacemaker firing off. 2. Hypercoagulable state, history of deep venous thrombosis. 3. Chronic obstructive pulmonary disease. 4. Atrial fibrillation. 5. Congestive heart failure. 6. Bipolar disorder. PLAN: He will be admitted to tele monitoring. We will consult Dr. Rajan. One dose of amiodarone IV given in the ER. We will continue diltiazem 30 mg p.o. b.i.d., gabapentin 300 mg p.o. b.i.d., Zestril 2.5 mg daily. For diabetes mellitus, 1000 mg metformin b.i.d. Metolazone 5 mg three times a week, bronchodilators, trazodone. We will continue Coumadin 7 mg p.o. everyday. Coags are within normal limits. Therapeutic INR. Mild anemia. Magnesium is 1.4, 1 g magnesium IV. We will consider oral magnesium 400 mg p.o. b.i.d. Celena Drake MD MTDAlbert
[2017-09-02 10:50] LABS: BASO # 0.04 K/mm3 (0.0-2.0); BASO % 0.5 % (0.0-3.0); EOS # 0.2 (0.0-0.7); GRAN # 5.29 (1.4-6.5); GRAN % 72.5 % (50.0-68.0); HEMOGLOBIN 12.4 g/dL (14.0-18.0); LYMPH # 1.2 (1.2-3.4); LYMPH % 16.2 % (22.0-35.0); MEAN CELL VOLUME 80.7 fl (80.0-105.0); MEAN CORPUSCULAR HGB CONC 32.2 g/dl (31.0-37.0); MEAN PLATELET VOLUME 9.6 fl (7.0-11.0); MONO # 0.6 (0.1-0.6); MONO % 7.8 % (1.0-6.0); RBC 4.77 10^6/uL (3.5-6.1); RED CELL DISTRIBUTION WIDTH 17.2 % (11.5-14.5); WHITE BLOOD COUNT 7.3 10^3/ul (4.5-11.0)
[2017-09-02 10:55] LABS: PROTHROMBIN TIME 23.3 SECONDS (9.4-12.5)
[2017-09-02 10:57] LABS: BLOOD UREA NITROGEN 18 mg/dL (7-21); CALCIUM 8.7 mg/dL (8.4-10.5); GFR AFRICAN-AMERICAN > 60; GFR NON-AFRICAN AMERICAN > 60
--- NOTE | 2017-09-02 13:10 | CARD ---
APPROVED REPORT EKG Measurement Heart [id number] [place] [id number] <Conclusion> Atrial sensed, Biventricular paced rhythm Intrinsic rhythm is Sinus with APCs Abnormal ECG
[2017-09-02] MEDS: Albuterol-Ipratrop 3 mg / 0.5 (3 ml) UD IH SCH ×2 (13:21→19:21)
[2017-09-02] MEDS: Insulin Detemir 100 units/ml Vial (Levemir) SC SCH (17:16)
--- NOTE | 2017-09-02 23:03 | CON ---
DATE: 09/02/2017 CARDIOLOGY CONSULTATION (Dr. Rajan) HISTORY OF PRESENT ILLNESS: The patient is a 57-year-old male with a documented dilated cardiomyopathy in the past who presents with three sensations in his chest, described more like a palpitation than a defibrillator firing. PAST MEDICAL HISTORY: Patient's past medical history includes diabetes mellitus, hypertension, and hypercholesterolemia with paroxysmal atrial fibrillation. He has undergone ablation for his atrial fibrillation and has had a pacemaker placed with an ICD as well. His cardiac catheterization in the past had shown nonobstructive CAD. Echocardiogram reveals an ejection fraction of 20% to 25%. His past medical history also includes a history of gastric bypass. He is being treated with Coumadin. No angina noted. SOCIAL HISTORY: Denies smoking. REVIEW OF SYSTEMS: Fourteen-point review of systems is reviewed in detail. No other cardiac symptoms are noted. PHYSICAL EXAMINATION: GENERAL: The patient is an obese male in no acute distress. VITAL SIGNS: Blood pressure is 103/58, the heart rate is paced in the 70s. NECK: Negative JVD. LUNGS: Without rales. HEART: With S1, S2. EXTREMITIES: Without edema. LABORATORY DATA: Reveals an EKG that is paced rhythm. His magnesium on admission was 1.4. Potassium was okay. The troponin is 0.04. Hemoglobin is 12.4. IMPRESSION: 1. Dilated cardiomyopathy. 2. Nonobstructive coronary artery disease. 3. Diabetes mellitus. 4. Obesity. 5. Atrial fibrillation. 6. Status post defibrillator placement. 7. Status post ablation of his atrial fibrillation. PLAN: It is unclear whether the patient's description is actually from his defibrillator firing. I will replace his magnesium. In the morning, we will have his defibrillator interrogated if we can somehow find the name of the company that had implanted in which the patient has no idea. We will restart his Coumadin. In the morning, we will return the care to Dr. Rajan. John Paul Rios MD
[2017-09-03] MEDS: Albuterol-Ipratrop 3 mg / 0.5 (3 ml) UD IH SCH ×4 (01:09→19:44)
[2017-09-03] MEDS: Insulin Detemir 100 units/ml Vial (Levemir) SC SCH ×2 (08:24→18:40)
--- NOTE | 2017-09-03 09:10 | PN ---
DATE: 09/03/2017 SUBJECTIVE: The patient has no complaints of any chest pain. No shortness of breath. No headaches or dizziness. PHYSICAL EXAMINATION: VITAL SIGNS: Temperature is 97.4, pulse is 73, blood pressure is 117/76, respirations 20. GENERAL: The patient is lying in bed, flat, comfortable. HEENT: No oral lesion. Anicteric sclerae. Moist mucosa. NECK: No JVD, adenopathy, or thyromegaly. CARDIOVASCULAR: S1 and S2, regular. No murmurs, rubs, or gallops. LUNGS: Clear to auscultation bilaterally. No wheeze, rales, or rhonchi. ABDOMEN: Bowel sounds are positive, soft, nontender and nondistended. EXTREMITIES: No cyanosis, clubbing. Lower extremity, 1+ edema. ASSESSMENT: 1. Hypomagnesemia. 2. Lower extremity edema. 3. Dilated cardiomyopathy. 4. Diabetes type 2. 5. Obesity with a body mass index of 42. 6. Atrial fibrillation, on anticoagulation. 7. Defibrillator. PLAN: The patient states that he had a defibrillator that may have fired, he is not sure. The patient is being followed by Cardiology. We will await further input regarding plan of care. The patient is on Amaryl for diabetes. The patient is on Cardizem. He is going to continue with the amiodarone. The patient is on Coumadin for his anticoagulation. His INR is therapeutic. He is going to continue with metformin. The patient is on ropinirole. He is on Zestril for his cardiomyopathy. He is on a heart healthy diet. He is on Zaroxolyn for his edema. He is on Neurontin for his neuropathy. His magnesium is normal. Axel Villagomez MD
[2017-09-03] MEDS: Magnesium Oxide 400 mg Tab UD PO SCH (09:15)
[2017-09-03] MEDS ORDERED: metOLazone 5 MG TAB PO SCH (10:00)
[2017-09-04] MEDS: Albuterol-Ipratrop 3 mg / 0.5 (3 ml) UD IH SCH ×2 (01:50→07:26)
[2017-09-04 03:50] VITALS: RESP 20
[2017-09-04 06:12] VITALS: BP 120/75; TEMP 97.7; O2SAT 96
[2017-09-04 06:43] LABS: ALB/GLOB RATIO 1.4 (1.1-1.8); ALBUMIN 3.8 g/dL (3.0-4.8); ALT/SGPT 32 U/L (7-56); AST/SGOT 22 U/L (17-59); BLOOD UREA NITROGEN 18 mg/dL (7-21); CALCIUM 8.9 mg/dL (8.4-10.5); GFR AFRICAN-AMERICAN > 60; GFR NON-AFRICAN AMERICAN > 60
[2017-09-04 06:50] LABS: FREE T4 1.12 ng/dL (0.78-2.19)
--- NOTE | 2017-09-04 07:52 | CON ---
DATE: 09/03/2017 LOCATION: The patient in room 268, bed 1. REASON FOR CONSULTATION AND FOLLOWUP: Cardiomyopathy, chest discomfort, history of decompensated congestive heart failure. HISTORY OF PRESENT ILLNESS: The patient is a 57-year-old male, known case of diabetes, hypertension, hyperlipidemia, paroxysmal atrial fibrillation, status post radiofrequency ablation, paroxysmal atrial fibrillation, status post AICD insertion, status post gastric bypass in the past, status post cardiac catheterization 3 times, nonobstructive coronary artery disease, history of acute limb ischemia and thrombectomy at left trifurcation for thrombosis, successful recanalization, now admitted with the feeling that, for a few seconds, he felt something palpitating with some feeling of electricity, but no apparent shock or big thump in the chest. So, patient denies any dizziness or any other associated symptoms with that. PAST MEDICAL HISTORY: As mentioned above, nonobstructive coronary artery disease, x3 cardiac catheterization, morbid obesity, cardiomyopathy, ejection fraction close to 45%, COPD, bipolar disorder, anxiety disorder, diabetes, hypertension, hyperlipidemia. Last echo was done on 05/31/2017, LV size normal, concentric LV hypertrophy, systolic function severely impaired with LV ejection fraction of 35%, mild mitral regurgitation, mild tricuspid regurgitation, mild to moderate pulmonary hypertension. PAST SURGICAL HISTORY: Significant for gastric bypass, status post AICD insertion and thrombectomy from the left lower extremity at left trifurcation, history of DVT, cardiac catheterization x3, nonobstructive coronary artery disease, status post radiofrequency ablation, AICD placement. PREVIOUS CARDIAC WORKUP: As mentioned above, 3 times cardiac catheterization, nonobstructive coronary artery disease, last cath at [facility] in 2014, EDP was in the range of 30's. Last echo on 05/31/2017, LV size normal, concentric LV hypertrophy, severely impaired LV systolic function with ejection fraction of 35%, mild mitral regurgitation, mild tricuspid regurgitation, mild to moderate pulmonary hypertension, moderately dilated RV, moderate RV dysfunction. Prior to that, last MUGA scan showed ejection fraction of 43%. The patient had a CORA on 06/04/2017 because of blood culture positive that showed ejection fraction of 25% to 30%, global hypokinesis, normal RV thickness, dilated RV, decreased RV function, mitral regurgitation, mild to moderate tricuspid regurgitation, no vegetations were seen. MEDICATIONS AT HOME: The patient is a poor compliant patient. He is supposed to take Trazodone, Requip, Zaroxolyn, Cardizem, Coumadin, Singulair, metformin, lisinopril, insulin, gabapentin, acetaminophen, ampicillin, Lasix. ALLERGIES: HE IS ALLERGIC TO [place], HE IS ALSO ALLERGIC TO SEROQUEL. REVIEW OF SYSTEMS: All the system reviewed as mentioned in the history and others are negative. PHYSICAL EXAMINATION VITAL SIGNS: Blood pressure 123/79, respirations 20, pulse 71, temperature 97.9. HEENT: Head is normocephalic. Eyes: Pupils are normal. Conjunctiva normal. Nose and throat normal. NECK: JVP low, carotid equal. THORAX: AP diameter normal. LUNGS: Clear. CARDIOVASCULAR: S1 and S2. ABDOMEN: Protuberant. No organomegaly. EXTREMITIES: No clubbing. No cyanosis. LABORATORY DATA: WBC 7.3, hemoglobin 12.4, hematocrit 38.5, platelets 139. Sodium 139, potassium 4.2, BUN 18, creatinine 0.9, sugar 205, magnesium of 1.8, random glucose 225. Chest x-ray, low lung volume with crowded bronchovascular markings, with no apparent sign of congestive heart failure. EKG showed pacemaker rhythm. DIAGNOSES: Atypical symptoms with some electrical typing of feeling for a few second with palpitation in the chest, cardiomyopathy, chronic left ventricular systolic failure, nonobstructive coronary artery disease status post automatic implantable cardioverter-defibrillator insertion, diabetes mellitus, obesity, hyperlipidemia, bipolar depression, history of congestive heart failure, history of thrombectomy from left leg trifurcation, mild to moderate pulmonary hypertension and mild mitral regurgitation, mild tricuspid regurgitation, left ventricular ejection fraction in the range of 35%. PLAN: The patient is on glimepiride 4 mg daily, diltiazem 30 mg b.i.d., amiodarone 400 mg b.i.d., warfarin 7 mg p.o. daily, DuoNeb hand nebulizer therapy, metformin 1000 b.i.d., insulin as ordered, magnesium as ordered, gabapentin 300 b.i.d., Singulair 10 mg at bedtime, lisinopril 2.5 mg daily. The patient was taking Lasix 80 mg t.i.d. at home, we will restart that. The patient's prothrombin time is 23.3, with INR 2. Called the [facility] [facility] and they are going to come and interrogate the [facility]. We will follow. Tia Cabello MD
[2017-09-04] MEDS: Insulin Detemir 100 units/ml Vial (Levemir) SC SCH (07:54)
--- NOTE | 2017-09-04 07:54 | CP.PCM.PN ---
Subjective - Date & Time of Evaluation Date of Evaluation: 09/04/17 Time of Evaluation: 06:45 - Subjective Subjective: Lying in bed, awake, no distress, feels good Reason for consultation and follow up: Cardiac evaluation of AICD/PPM (claimed to be firing off).history of chronic A fib, COPD, CHF (on Coumadin), CAD, Diabetes, depression, bipolar, anxiety, s/p pacemaker and defibrillator placement, cardiomyopathy Seen and examined by me and Dr. Rajan Objective - Vital Signs/Intake and Output Vital Signs (last 24 hours): Temp Pulse Resp BP Pulse Ox 97.7 F 67 20 120/75 96 09/04/17 06:00 09/04/17 06:00 09/04/17 06:00 09/04/17 06:00 09/04/17 06:00 Intake and Output: 09/04/17 09/04/17 06:59 18:59 Intake Total 240 Balance 240 - Medications Medications: Current Medications Albuterol/Ipratropium (Duoneb 3 Mg/0.5 Mg (3 Ml) Ud) 3 ml IH [id number] [facility] Last Admin: 09/04/17 07:26 Dose: Not Given Amiodarone HCl (Cordarone) 400 mg PO BID [facility] Last Admin: 09/03/17 18:39 Dose: 400 mg Diltiazem HCl (Cardizem) 30 mg PO BID [facility] Last Admin: 09/03/17 18:39 Dose: 30 mg Furosemide (Lasix) 80 mg PO TID [facility] Last Admin: 09/03/17 18:39 Dose: 80 mg Gabapentin (Neurontin) 300 mg PO BID [facility] PRN Reason: Protocol Last Admin: 09/03/17 18:38 Dose: 300 mg Glimepiride (Amaryl) 4 mg PO DAILY [facility] Last Admin: 09/03/17 09:16 Dose: 4 mg Insulin Detemir (Levemir) 40 unit SC ACBD [facility] Last Admin: 09/03/17 18:40 Dose: 40 units Lisinopril (Zestril) 2.5 mg PO DAILY [facility] Last Admin: 09/03/17 09:16 Dose: 2.5 mg Lorazepam (Ativan) 1 mg PO BID PRN; Protocol PRN Reason: Anxiety Last Admin: 09/03/17 21:22 Dose: 1 mg Magnesium Oxide (Mag-Ox) 400 mg PO DAILY [facility] Last Admin: 09/03/17 09:15 Dose: 400 mg Metformin HCl (Glucophage) 1,000 mg PO BID [facility] Last Admin: 09/03/17 18:39 Dose: 1,000 mg Metolazone (Zaroxolyn) 5 mg PO MWF [facility] Last Admin: 09/03/17 09:52 Dose: 5 mg Montelukast Sodium (Singulair) 10 mg PO [facility] Last Admin: 09/03/17 21:30 Dose: 10 mg Ropinirole HCl (Requip) 0.5 mg PO [facility] Last Admin: 09/03/17 21:23 Dose: 0.5 mg Trazodone HCl (Desyrel) 150 mg PO [facility] Last Admin: 09/03/17 21:23 Dose: 150 mg Warfarin Sodium (Coumadin) 7 mg PO [facility] PRN Reason: Protocol Last Admin: 09/03/17 21:22 Dose: 7 mg - Labs Labs: 09/02/17 10:40 09/04/17 05:45 PT 23.3 SECONDS (9.4-12.5) H 09/02/17 10:40 INR 2.00 (0.93-1.08) H 09/02/17 10:40 APTT 31.9 Seconds (25.1-36.5) 09/01/17 16:45 - Constitutional Appears: No Acute Distress - Head Exam Head Exam: NORMOCEPHALIC - Eye Exam Eye Exam: Normal appearance - ENT Exam ENT Exam: Mucous Membranes Moist - Respiratory Exam Respiratory Exam: Clear to Ausculation Bilateral, NORMAL BREATHING PATTERN - Cardiovascular Exam Cardiovascular Exam: +S1, +S2 Additional comments: AICD/PPM - GI/Abdominal Exam GI & Abdominal Exam: Soft, Normal Bowel Sounds - Exam Additional comments: continent - Extremities Exam Extremities Exam: Normal Capillary Refill Additional comments: 1+ pedal edema - Neurological Exam Neurological Exam: Alert, Awake, Oriented x3 - Psychiatric Exam Psychiatric exam: Normal Affect, Normal Mood - Skin Skin Exam: Intact, Normal Color, Warm Assessment and Plan - Assessment and Plan (Free Text) Assessment: A 57 year old male who came in to the ER due to he had a feeling that PPM/AICD firing off. History of chronic A fib, COPD, CHF (on Coumadin), CAD, Diabetes, depression, bipolar, anxiety, s/p pacemaker and defibrillator placement, cardiomyopathy. In ER , low magnesium,replenished. Plan: PPM/AICD interrogated and negative for AICD firing off Low magnesium, replenished K+ and Mg level- normal limits Stable cardiac status Controlled heart rate and blood pressure Possible discharge Continue current medications Continue current treatment Will follow up Plan and treatment discussed with Dr. Rajan
[2017-09-04] MEDS: Magnesium Oxide 400 mg Tab UD PO SCH (09:06)
[2017-09-04] MEDS: Magnesium 2 gm/50 ml NS 2 GM/50 ML BAG IVPB ONE ×2 (09:06→09:17)
--- NOTE | 2017-09-04 10:42 | PN ---
DATE: 09/04/2017 ADDENDUM REASON FOR DICTATION: Addendum to the initial progress note dictated by our nurse practitioner. REASON FOR ADDENDUM: The patient's AICD interrogated, [place]. No arrhythmia noted. No firing of the defibrillator. No shock delivered. Last arrhythmia, irregular heartbeat, very briefly noted in July, explained to the patient, we will discuss with you also. Today, magnesium is 1.7, so we will give 2 g of magnesium rider and possible discharge. Tia Rajan MD
--- NOTE | 2017-09-04 11:25 | PN ---
DATE: 09/04/2017 SUBJECTIVE: The patient has no complaints of any chest pain. No shortness of breath. No headaches or dizziness. PHYSICAL EXAMINATION: VITAL SIGNS: Temperature 97.8, pulse of 51, blood pressure 111/60, respirations 20. GENERAL: The patient is lying in bed, flat, comfortable. HEENT: No oral lesion. Anicteric sclerae. Moist mucosa. NECK: No JVD, adenopathy, or thyromegaly. CARDIOVASCULAR: S1 and S2, regular. No murmurs, rubs, or gallops. LUNGS: Clear to auscultation bilaterally. No wheeze, rales, or rhonchi. ABDOMEN: Bowel sounds are positive, soft, nontender and nondistended. EXTREMITIES: No cyanosis, clubbing. Lower extremity, 1+ edema. ASSESSMENT: 1. Hypomagnesemia. 2. Lower extremity edema. 3. Possible pacemaker firing. 4. Dilated cardiomyopathy. 5. Diabetes type 2. 6. Obesity with a body mass index of 42. 7. Atrial fibrillation, on anticoagulation. 8. Defibrillator. PLAN: The patient is going to be on Amaryl for his diabetes. He is also on metformin insulin sliding scale. He is on amiodarone. He is on Coumadin for his anticoagulation. The patient is on Lasix 80 mg three times a day. He is being followed by Cardiology. The patient is on Neurontin for neuropathy. He is on Requip for his restless leg syndrome. He is getting Zaroxolyn for CHF and edema. He is on lisinopril for his cardiomyopathy. Axel Villagomez MD
[2017-09-04 15:05] VITALS: PULSE 71
== END 2017-09-04 11:00 | disposition home or self-care (01) | DRG 315 ==
LOC: ED 16:11 → ERH 18:16 → 2RNO 22:29
PROVIDERS: ADMIT Internal Medicine Medical Oncology; ATTEND Internal Medicine Nephrology
DX: I42.0 Dilated cardiomyopathy (principal); Z68.41 Body mass index [BMI] 40.0-44.9, adult; D68.59 Other primary thrombophilia; I50.22 Chronic systolic (congestive) heart failure; E83.42 Hypomagnesemia; E11.9 Type 2 diabetes mellitus without complications; E66.9 Obesity, unspecified; I48.2 Chronic atrial fibrillation; Z79.01 Long term (current) use of anticoagulants; Z95.810 Presence of automatic (implantable) cardiac defibrillator; E78.00 Pure hypercholesterolemia, unspecified; E78.5 Hyperlipidemia, unspecified; F31.9 Bipolar disorder, unspecified; I08.1 Rheumatic disorders of both mitral and tricuspid valves; I11.0 Hypertensive heart disease with heart failure; I25.10 Atherosclerotic heart disease of native coronary artery without angina pectoris; I25.2 Old myocardial infarction; I27.20 Pulmonary hypertension, unspecified; I48.0 Paroxysmal atrial fibrillation; J44.9 Chronic obstructive pulmonary disease, unspecified; K59.00 Constipation, unspecified; M53.3 Sacrococcygeal disorders, not elsewhere classified; Z86.718 Personal history of other venous thrombosis and embolism; Z87.891 Personal history of nicotine dependence; Z98.84 Bariatric surgery status; Z87.892 Personal history of anaphylaxis; Z88.8 Allergy status to other drugs, medicaments and biological substances; Z91.018 Allergy to other foods; R40.2412 Glasgow coma scale score 13-15, at arrival to emergency department

== ENCOUNTER → 2017-10-04 | Day surgery (SDC) | payer MEDICARE ==
[~2017-10-04] MED LIST: Bupivacaine 0.5% Inj(30mL) IJ ONE; Bupivacaine 0.5% Inj(30mL) ONE; Lidocaine 1% Inj (20ml) IJ ONE; Lidocaine 1% Inj (20ml) ONE; Liquid Adhesive TOP ONE
[2017-10-04 12:33] VITALS: BMI 41.3
[2017-10-04 12:42] VITALS: TEMP 97.8
[2017-10-04 13:04] LABS: INR 1.16 (0.93-1.08); PARTIAL THROMBOPLASTIN TIME 27.5 Seconds (25.1-36.5); PROTHROMBIN TIME 13.4 SECONDS (9.4-12.5)
[2017-10-04 15:13] VITALS: PULSE 75; RESP 18; O2SAT 96
--- NOTE | 2017-10-04 16:09 | PCM.SURG1 ---
Surgeon's Initial Post Op Note - Surgeon's Notes Surgeon: Dr. Renae Basket Hand Weaver: Dr. Goss PGY-4 Type of Anesthesia: Local Pre-Operative Diagnosis: Left nasal lesion Operative Findings: Left nasal lesion Post-Operative Diagnosis: Left nasal lesion Operation Performed: Excision of Left nasal lesion Specimen/Specimens Removed: Left nasal lesion Estimated Blood Loss: EBL {In ML}: 5 Blood Products Given: N/A Drains Used: No Drains Post-Op Condition: Good Date of Surgery/Procedure: 10/04/17 Time of Surgery/Procedure: 15:30
[2017-10-04 16:27] VITALS: BP 130/79
--- NOTE | 2017-10-09 16:50 | OP ---
DATE: 10/04/2017 Pete Johnson is seen. On the left side of the nose is a nodule that has been bleeding. This is seen in the operating room. The time-out was taken. It was infiltrated with 1% Xylocaine, Marcaine mixed. The polyp was pulled up in the base taken with an 11 blade. The patient was cauterized with a hot cautery not using electricity. The wound was dressed with a small Band-Aid and bacitracin. The patient was seen in the office in about a week to check the pathology. Beau Renae MD MTDD
== END | disposition home or self-care (01) ==
LOC: OPSURG 11:55
PROVIDERS: ATTEND Surgery
DX: J33.9 Nasal polyp, unspecified (principal)

== ENCOUNTER 2017-10-13 12:13 | Emergency (ER) | payer MEDICARE ==
[2017-10-13 12:14] VITALS: PULSE 74
[2017-10-13 12:36] VITALS: TEMP 98.1; BMI 41.8
--- NOTE | 2017-10-13 12:49 | ED PDOC ---
Arrival/HPI - General Chief Complaint: Lower Extremity Problem/Injury Time Seen by Provider: 10/13/17 12:34 Historian: Patient - History of Present Illness Narrative History of Present Illness (Text): 10/13/17 12:43 57 y/o male, pmh including chf/copd/acs/dm/a.fibb/cad, allergic to quetiapine, c /o rt. thigh and calf pain x 1 week with no fall or trauma. Pt. stated that he used the cane a lot, been walking alot on the rt. lower extremity, been experiencing rt. thigh and calf pain, associated with stiffness occasionally, no skin discoloration, has percocet at home but doesn't take it, taking coumadin now, no numbness or tingling, no lower back pain, no urinary or bowel incontinence or retention, no fever or chills, no night sweat, no other medical or psychological complaints. Past Medical History - Provider Review Nursing Documentation Reviewed: Yes - Infectious Disease Hx of Infectious Diseases: None - Tetanus Immunization Tetanus Immunization: Unknown - Cardiac Hx Cardiac Disorders: Yes (mi) Hx Cardiac Arrhythmia: Yes (afib) Hx Congestive Heart Failure: Yes Hx Hypertension: Yes Hx Internal Defibrillator: Yes (aicd) Hx Peripheral Edema: Yes (rle +2 pitting/ lle +1 pitting edema) Hx Peripheral Vascular Disease: Yes Other/Comment: varicose veins ble - Pulmonary Hx Bronchitis: Yes Hx Chronic Obstructive Pulmonary Disease (COPD): Yes Hx Emphysema: Yes Hx Pneumonia: Yes Hx Sleep Apnea: Yes - Neurological Hx Dizziness: Yes Other/Comment: numbness both thighs, pt stated "I was in a coma for 2 weeks from seroquel - HEENT Hx HEENT Disorder: Yes (eyeglasses, curyung) Other/Comment: eye sx for strabismus - Renal Hx Renal Disorder: No - Endocrine/Metabolic Hx Diabetes Mellitus Type 2: Yes - Hematological/Oncological Hx Cancer: No - Integumentary Hx Dermatological Disorder: Yes Other/Comment: slight redness to ble and buttocks, lle wound healed, dry skin ble - Musculoskeletal/Rheumatological Hx Musculoskeletal Disorders: Yes Hx Arthritis: Yes (hands) Hx Falls: No Hx Osteoarthritis: Yes Hx Unsteady Gait: Yes (cane) Other/Comment: chronic right hip and r knee pain from using cane for lle wound that is now healed - Gastrointestinal Hx Gastrointestinal Disorders: Yes (obese,gastric bypass) Hx Gastroesophageal Reflux: Yes - Genitourinary/Gynecological Hx Genitourinary Disorders: No - Psychiatric Hx Psychophysiologic Disorder: Yes Hx Anxiety: Yes Hx Bipolar Disorder: Yes Hx Depression: Yes Hx Substance Use: No (quit over 25 yrs ago cocaine) Other/Comment: quit smoking, drinking, cocaine use 25 yrs ago - Past Surgical History Past Surgical History: Non-Contributing - Surgical History Hx Cardiac Catheterization: Yes Hx Coronary Stent: Yes Hx Gastric Bypass Surgery: Yes Hx Mastectomy: No - Anesthesia Hx Anesthesia Reactions: No Hx Malignant Hyperthermia: No - Suicidal Assessment Feels Threatened In Home Enviroment: No Family/Social History - Physician Review Nursing Documentation Reviewed: Yes Family/Social History: Unknown Family HX Smoking Status: Former Smoker Hx Alcohol Use: No (quit over 25 yrs ago) Hx Substance Use: No (quit over 25 yrs ago cocaine) Hx Substance Use Treatment: Yes Allergies/Home Meds Allergies/Adverse Reactions: Allergies quetiapine fumarate [From Seroquel] Adverse Reaction (Verified 10/13/17 12:36) ANAPHYLAXIS wild berries Allergy (Intermediate, Uncoded 10/13/17 12:36) RASH Home Medications: Home Meds Medication Instructions Recorded Confirmed Albuterol/Ipratropium [Duoneb 3 3 ml IH PRN PRN 09/01/17 10/13/17 mg/0.5 mg (3 ml) UD] Insulin Detemir [Levemir] 40 unit SC ACBD 09/01/17 10/13/17 Oxycodone HCl/Acetaminophen 1 tab PO Q6 PRN 10/04/17 10/13/17 [Percocet 10-325 mg Tablet] Review of Systems - Review of Systems Constitutional: absent: Fatigue, Fevers Eyes: absent: Vision Changes ENT: absent: Hearing Changes Respiratory: absent: SOB, Cough Cardiovascular: absent: Chest Pain, Syncope Gastrointestinal: absent: Abdominal Pain, Nausea, Vomiting Musculoskeletal: Myalgias. absent: Arthralgias, Back Pain, Neck Pain, Joint Swelling Skin: absent: Rash, Pruritis Neurological: absent: Headache, Dizziness Psychiatric: absent: Anxiety, Depression, Suicidal Ideation Physical Exam Vital Signs Reviewed: Yes Vital Signs Temp Pulse Resp BP Pulse Ox 10/13/17 17:23 78 10/13/17 17:21 78 17 99/70 L 95 07/28/18 16:19 80 18 100/68 96 10/13/17 15:00 79 18 98/71 L 95 10/13/17 12:29 98.1 F 83 18 96/65 L 95 Temperature: Afebrile Pulse: Regular Respiratory Rate: Normal Appearance: Positive for: Well-Appearing, Non-Toxic, Comfortable Pain Distress: Moderate Mental Status: Positive for: Alert and Oriented X 3 - Systems Exam Head: Present: Atraumatic, Normocephalic Pupils: Present: PERRL Extroacular Muscles: Present: EOMI Conjunctiva: Present: Normal Mouth: Present: Moist Mucous Membranes Neck: Present: Normal Range of Motion Respiratory/Chest: Present: Clear to Auscultation, Good Air Exchange. No: Respiratory Distress, Accessory Muscle Use Cardiovascular: Present: Regular Rate and Rhythm, Normal S1, S2, Other (no pedal edema). No: Murmurs Abdomen: No: Tenderness, Distention, Peritoneal Signs Back: Present: Normal Inspection, Other (no saddling gait. ). No: CVA Tenderness, Midline Tenderness, Paraspinal Tenderness, Pain with Leg Raise, Decubitus Ulcer Upper Extremity: Present: Normal Inspection. No: Cyanosis, Edema Lower Extremity: Present: Normal Inspection, Other (RLE: mild +ttp on the rt. calf region, negative montez, no erythematous, no cellulitis or streaking, no ulcers, FROM without limitation, sensation intact, motor 5/5, +DPPT pulses. ). No: Edema Neurological: Present: GCS=15, CN II-XII Intact, Speech Normal, Motor Func Grossly Intact, Gait Normal, Memory Normal Skin: Present: Warm, Dry, Normal Color. No: Rashes Lymphatic: No: Cervical Adenopathy Psychiatric: Present: Alert, Oriented x 3, Normal Insight, Normal Concentration Medical Decision Making ED Course and Treatment: 10/13/17 12:53 Differential: Sciatica vs. DVT vs. musclar strain -RLE Venuous doppler -Percocet -Observe and reassess 10/13/17 17:34 -INR is 2.51 -RLE Venuous Doppler: as per preliminary report, no acute DVT -Pt. stated that he takes percocet 10/325, request more pain med and preferrably morphine morphine 4mg IM ordered with cane. -Pt. feels much better, prefer to be discharged home, all labs and radiology result discussed with the patient, advised to follow up with the pmd. Pt. is walking independently. -Discharge home with cane, continue percocet at home as needed, follow up with your own pmd and orthopedic/pain management within 2 days, return to the ER for any new or worsening signs or symptoms. - Lab Interpretations Lab Results: Lab Results 10/13/17 13:30: PT 29.1 H, INR 2.51 H - RAD Interpretation Radiology Orders: 10/13/17 12:50 DUPLEX LOWER EXTRM VEIN RIGHT [US] Stat RLE Venuous Doppler: as per preliminary report, no acute DVT Acupressurist: Radiologist - Medication Orders Current Medication Orders: Discontinued Medications Morphine Sulfate (Morphine) 4 mg IM STAT STA Stop: 10/13/17 14:54 Last Admin: 10/13/17 16:24 Dose: 4 mg MAR Pain Assessment Document 10/13/17 16:24 SF (Rec: 10/13/17 16:24 SF [id number] Pain Reassessment Is this a pain reassessment? Yes Sleep Is patient sleeping during reassessment? No Presence of Pain Presence of Pain Yes IM Administration Charges Document 10/13/17 16:24 SF (Rec: 10/13/17 16:24 SF [id number] Injection Site MAR Injection Site Left Deltoid Charges for Administration # of IM Administrations 1 Oxycodone/Acetaminophen (Percocet 5/325 Mg Tab) 1 tab PO STAT STA Stop: 10/13/17 12:51 Last Admin: 10/13/17 13:51 Dose: 1 tab MAR Pain Assessment Document 10/13/17 13:51 SF (Rec: 10/13/17 13:51 SF [id number] Pain Reassessment Is this a pain reassessment? Yes Sleep Is patient sleeping during reassessment? No Presence of Pain Presence of Pain Yes - PA / FIRE PATROL / Resident Statement MD/DO has reviewed & agrees with the documentation as recorded. Disposition/Present on Arrival - Present on Arrival Any Indicators Present on Arrival: No History of DVT/PE: No History of Uncontrolled Diabetes: No Urinary Catheter: No History of Decub. Ulcer: No History Surgical Site Infection Following: None - Disposition Have Diagnosis and Disposition been Completed?: Yes Diagnosis: Leg pain Disposition: HOME/ ROUTINE Disposition Time: 12:54 Patient Plan: Discharge Condition: GOOD Additional Instructions: -Discharge home with cane, continue percocet at home as needed, follow up with your own pmd and orthopedic/pain management within 2 days, return to the ER for any new or worsening signs or symptoms. Referrals: Axel Villagomez MD [Family Provider] - Follow up with primary Wes Capellan DO [Staff Provider] - Follow up with primary Forms: [employer] (Chinese), WORK NOTE
[2017-10-13] MEDS ORDERED: Oxycodone/Acetaminophen 5/325 mg Tab PO STA (12:50)
[2017-10-13 14:09] LABS: INR 2.51 (0.93-1.08); PROTHROMBIN TIME 29.1 SECONDS (9.4-12.5)
[2017-10-13] MEDS ORDERED: Morphine 4 mg/ml ISec IM STA (14:53)
[2017-10-13 17:23] VITALS: BP 99/70; PULSE 78; RESP 17; O2SAT 95
--- NOTE | 2017-10-13 22:15 | US ---
PROCEDURE: Right lower extremity venous US HISTORY: Leg pain and swelling. Evaluate for DVT. PHYSICIAN(S): John Paul Cannon M.D. TECHNIQUE: Duplex sonography and color-flow Doppler with graded compression were used to evaluate the deep venous system of the right lower extremity. The exam is limited by body habitus FINDINGS: The visualized deep venous system of the right lower extremity is sonographically normal and compressible. Normal waveforms and augmentation are seen. There is no sonographic evidence for deep venous thrombosis in the visualized segments of the right lower extremity. IMPRESSION: 1. No sonographic evidence for deep venous thrombosis in the visualized segments of the right lower extremity.
== END 2017-10-13 17:21 | disposition home or self-care (01) ==
LOC: ED 12:13
DX: M79.604 Pain in right leg (principal); I25.10 Atherosclerotic heart disease of native coronary artery without angina pectoris; I11.0 Hypertensive heart disease with heart failure; I50.9 Heart failure, unspecified; I48.91 Unspecified atrial fibrillation; Z87.891 Personal history of nicotine dependence; Z95.5 Presence of coronary angioplasty implant and graft
CPT/HCPCS: 85610; 93971; 96372; 99285; J2270

== ENCOUNTER 2017-10-22 19:57 | Inpatient (IN) | payer MEDICARE ==
[2017-10-22 19:58] VITALS: PULSE 74
[2017-10-22] MEDS ORDERED: Albuterol-Ipratrop 3 mg / 0.5 (3 ml) UD IH STA (20:30)
[2017-10-22] MEDS ORDERED: Morphine 2 mg/ml ISec IVP STA (20:30)
--- NOTE | 2017-10-22 20:30 | ED PDOC ---
Arrival/HPI - General Chief Complaint: Shortness Of Breath Time Seen by Provider: 10/22/17 20:00 Historian: Patient - History of Present Illness Narrative History of Present Illness (Text): 10/22/17 20:27 57 year old male, whose past medical history includes hypertension, HLD, Afib, cardiac ablation, ACID, gastric bypass, limb escemia thrombectomy, who presents to the Emergency Department complaining of chest discomfort radiating down left arm.Occasional shortness of breath.Chronic leg pain. Patient denies any fever, chills,nausea, vomiting, diarrhea, back pain, neck pain, headache, dizziness, or any other complaints. Symptom Onset: Gradual Symptom Course: Unchanged Activities at Onset: Light Context: Home Past Medical History - Provider Review Nursing Documentation Reviewed: Yes - Infectious Disease Hx of Infectious Diseases: None - Tetanus Immunization Tetanus Immunization: Unknown - Cardiac Hx Cardiac Disorders: Yes (mi) Hx Cardiac Arrhythmia: Yes (afib) Hx Congestive Heart Failure: Yes Hx Hypertension: Yes Hx Internal Defibrillator: Yes (aicd) Hx Peripheral Edema: Yes (rle +2 pitting/ lle +1 pitting edema) Hx Peripheral Vascular Disease: Yes Other/Comment: varicose veins ble - Pulmonary Hx Respiratory Disorders: Yes Hx Bronchitis: Yes Hx Chronic Obstructive Pulmonary Disease (COPD): Yes Hx Emphysema: Yes Hx Pneumonia: Yes Hx Sleep Apnea: Yes - Neurological Hx Neurological Disorder: Yes Hx Dizziness: Yes Other/Comment: numbness both thighs, pt stated "I was in a coma for 2 weeks from seroquel - HEENT Hx HEENT Disorder: Yes (eyeglasses, [place]) Other/Comment: eye sx for strabismus - Renal Hx Renal Disorder: No - Endocrine/Metabolic Hx Endocrine Disorders: Yes Hx Diabetes Mellitus Type 2: Yes - Hematological/Oncological Hx Blood Disorders: No - Integumentary Hx Dermatological Disorder: Yes Other/Comment: slight redness to ble and buttocks, lle wound healed, dry skin ble - Musculoskeletal/Rheumatological Hx Musculoskeletal Disorders: Yes Hx Arthritis: Yes (hands) Hx Osteoarthritis: Yes Hx Unsteady Gait: Yes (cane) Other/Comment: chronic right hip and r knee pain from using cane for lle wound that is now healed - Gastrointestinal Hx Gastrointestinal Disorders: Yes (obese,gastric bypass) Hx Gastroesophageal Reflux: Yes - Genitourinary/Gynecological Hx Genitourinary Disorders: No - Psychiatric Hx Psychophysiologic Disorder: Yes Hx Anxiety: Yes Hx Bipolar Disorder: Yes Hx Depression: Yes Hx Substance Use: No (quit over 25 yrs ago cocaine) Other/Comment: quit smoking, drinking, cocaine use 25 yrs ago - Past Surgical History Past Surgical History: Non-Contributing - Surgical History Hx Cardiac Catheterization: Yes Hx Coronary Stent: Yes Hx Gastric Bypass Surgery: Yes - Anesthesia Hx Anesthesia Reactions: No Hx Malignant Hyperthermia: No - Suicidal Assessment Feels Threatened In Home Enviroment: No Family/Social History - Physician Review Nursing Documentation Reviewed: Yes Family/Social History: Unknown Family HX Smoking Status: Former Smoker Hx Alcohol Use: No (quit over 25 yrs ago) Hx Substance Use: No (quit over 25 yrs ago cocaine) Hx Substance Use Treatment: Yes Allergies/Home Meds Allergies/Adverse Reactions: Allergies quetiapine fumarate [From Seroquel] Adverse Reaction (Verified 10/22/17 20:08) ANAPHYLAXIS wild [place] Allergy (Intermediate, Uncoded 10/22/17 20:08) RASH Home Medications: Home Meds Medication Instructions Recorded Confirmed Albuterol/Ipratropium [Duoneb 3 3 ml IH PRN PRN 09/01/17 10/22/17 mg/0.5 mg (3 ml) UD] Insulin Detemir [Levemir] 40 unit SC ACBD 09/01/17 10/22/17 Oxycodone HCl/Acetaminophen 1 tab PO Q6 PRN 10/04/17 10/22/17 [Percocet 10-325 mg Tablet] Review of Systems - Physician Review All systems were reviewed & negative as marked: Yes - Review of Systems Constitutional: Normal Eyes: Normal ENT: Normal Respiratory: Normal. absent: SOB, Cough (radiating to left arm) Cardiovascular: Chest Pain Gastrointestinal: Normal. absent: Abdominal Pain, Diarrhea, Nausea, Vomiting Genitourinary Male: Normal. absent: Dysuria, Frequency, Hematuria Musculoskeletal: Normal. absent: Back Pain, Neck Pain Skin: Normal. absent: Rash Neurological: Normal. absent: Headache, Dizziness Endocrine: Normal Hemo/Lymphatic: Normal Psychiatric: Normal Physical Exam Vital Signs Reviewed: Yes Vital Signs Temp Pulse Resp BP Pulse Ox 10/23/17 03:30 98.8 F 88 20 136/84 97 10/23/17 01:49 98.4 F 76 20 107/66 97 10/22/17 22:55 98.4 F 87 20 119/67 94 L 10/22/17 20:10 20 10/22/17 19:58 98.2 F 91 H 20 127/69 97 Temperature: Afebrile Blood Pressure: Normal Pulse: Regular Respiratory Rate: Normal Appearance: Positive for: Well-Appearing, Non-Toxic, Comfortable Pain Distress: None Mental Status: Positive for: Alert and Oriented X 3 - Systems Exam Head: Present: Atraumatic, Normocephalic Pupils: Present: PERRL Extroacular Muscles: Present: EOMI Conjunctiva: Present: Normal Mouth: Present: Moist Mucous Membranes Neck: Present: Normal Range of Motion Respiratory/Chest: Present: Decreased Breath Sounds (bilaterally). No: Respiratory Distress, Accessory Muscle Use Cardiovascular: Present: Regular Rate and Rhythm, Normal S1, S2. No: Murmurs Abdomen: No: Tenderness, Distention, Peritoneal Signs Back: Present: Normal Inspection Upper Extremity: Present: Normal Inspection. No: Cyanosis, Edema Lower Extremity: Present: Normal Inspection. No: Edema Neurological: Present: GCS=15, CN II-XII Intact, Speech Normal Skin: Present: Warm, Dry, Normal Color. No: Rashes Psychiatric: Present: Alert, Oriented x 3, Normal Insight, Normal Concentration Medical Decision Making ED Course and Treatment: 10/22/17 20:33 Impression: 57 year old male presents to the Emergency Department complaining of chest discomfort radiating down left arm. Plan: -- EKG -- Labs -- Cardiac ISO -- CXR -- Duoneb -- Morphine -- US Lower extremity -- Reassess and disposition Progress Notes: EKG reviewed, shows Sinus arrthmia at 85 bpm. Right bundle branch block, anterolateral infarct. 10/22/17 21:55: Chest X-ray read and interpreted by me shows cardiomegaly. 10/22/17 22:45: Venous doppler negative for DVT. 10/22/17 23:07: Case discussed in detail with Dr. Villagomez who accepts patient to his service. Requests Dr. Rajan for cardiology consult. - Lab Interpretations Lab Results: 10/22/17 20:30 10/22/17 20:30 Lab Results 10/22/17 20:30: Sodium 138, Potassium 3.8, Chloride 102, Carbon Dioxide 26, Anion Gap 14, BUN 20, Creatinine 1.0, Est GFR ( Amer) > 60, Est GFR (Non- Af Amer) > 60, Random Glucose 200 H, Calcium 8.9, Total Bilirubin 0.4, AST 25, ALT 22, Alkaline Phosphatase 58, Lactate Dehydrogenase 404, Total Creatine Kinase 138, Troponin I 0.05 D, NT-Pro-B Natriuret Pep 1030 H, Total Protein 6.4 , Albumin 3.7, Globulin 2.7, Albumin/Globulin Ratio 1.4 10/22/17 20:30: WBC 8.9 D, RBC 4.46, Hgb 12.2 L, Hct 36.8 L, MCV 82.5, MCH 27.4 , MCHC 33.2, RDW 18.1 H, Plt Count 170, MPV 9.4 10/22/17 20:30: PT 42.5 H, INR 3.63, APTT 33.0 - RAD Interpretation Radiology Orders: 10/22/17 20:28 CHEST PORTABLE [RAD] Stat DUPLEX LOWER EXTRM VEIN BILAT [US] Stat - Medication Orders Current Medication Orders: Albuterol/Ipratropium (Duoneb 3 Mg/0.5 Mg (3 Ml) Ud) 3 ml IH Q4H PRN PRN Reason: Shortness of Breath Diltiazem HCl (Cardizem) 30 mg PO BID WIL[place] Gabapentin (Neurontin) 300 mg PO BID [place]IL[place] PRN Reason: Protocol Glimepiride (Amaryl) 4 mg PO BRK [place] Lisinopril (Zestril) 2.5 mg PO DAILY [place] Montelukast Sodium (Singulair) 10 mg PO HS WIL[place] Ropinirole HCl (Requip) 0.5 mg PO HS WILTON Last Admin: 10/22/17 23:38 Dose: 0.5 mg Trazodone HCl (Desyrel) 150 mg PO HS [place]IL[place] Last Admin: 10/22/17 23:38 Dose: 150 mg Discontinued Medications Albuterol/Ipratropium (Duoneb 3 Mg/0.5 Mg (3 Ml) Ud) 3 ml IH ONCE STA Stop: 10/22/17 20:31 Last Admin: 10/22/17 20:55 Dose: 3 ml Morphine Sulfate (Morphine) 2 mg IVP STAT STA Stop: 10/22/17 20:31 Last Admin: 10/22/17 20:54 Dose: 2 mg MAR Pain Assessment Document 10/22/17 20:54 [place] (Rec: 10/22/17 20:55 [place] [facility] [place] Pain Reassessment Is this a pain reassessment? No Sleep Is patient sleeping during reassessment? No Presence of Pain Presence of Pain Yes Pain Scale Used Pain Scale Used Numeric Location Pain Location Body Site Chest Description Description Intermittent Intensity of Pain at present 4 IVP Administration Document 10/22/17 20:54 LA (Rec: 10/22/17 20:55 [place] [facility] [place] Charges for Administration # of IVP Administrations 1 - Scribe Statement The provider has reviewed the documentation as recorded by the Scribe Laura Morales All medical record entries made by the Scribe were at my direction and personally dictated by me. I have reviewed the chart and agree that the record accurately reflects my personal performance of the history, physical exam, medical decision making, and the department course for this patient. I have also personally directed, reviewed, and agree with the discharge instructions and disposition. Disposition/Present on Arrival - Present on Arrival Any Indicators Present on Arrival: No History of DVT/PE: No History of Uncontrolled Diabetes: No Urinary Catheter: No History of Decub. Ulcer: No History Surgical Site Infection Following: None - Disposition Have Diagnosis and Disposition been Completed?: Yes Diagnosis: Chest pain Disposition: HOSPITALIZED Disposition Time: 23:25 Condition: GOOD
[2017-10-22 21:20] LABS: HEMOGLOBIN 12.2 g/dL (14.0-18.0); MEAN CELL VOLUME 82.5 fl (80.0-105.0); MEAN CORPUSCULAR HEMOGLOBIN 27.4 pg (25.0-35.0); MEAN CORPUSCULAR HGB CONC 33.2 g/dl (31.0-37.0); MEAN PLATELET VOLUME 9.4 fl (7.0-11.0); RBC 4.46 10^6/uL (3.5-6.1); RED CELL DISTRIBUTION WIDTH 18.1 % (11.5-14.5); WHITE BLOOD COUNT 8.9 10^3/ul (4.5-11.0)
[2017-10-22 21:25] LABS: ALB/GLOB RATIO 1.4 (1.1-1.8); ALBUMIN 3.7 g/dL (3.0-4.8); ALT/SGPT 22 U/L (7-56); AST/SGOT 25 U/L (17-59); BLOOD UREA NITROGEN 20 mg/dL (7-21); CALCIUM 8.9 mg/dL (8.4-10.5); GFR AFRICAN-AMERICAN > 60; GFR NON-AFRICAN AMERICAN > 60
[2017-10-22 21:37] LABS: INR 3.63; PROTHROMBIN TIME 42.5 SECONDS (9.4-12.5)
[2017-10-22 21:45] LABS: B-TYPE NATRIURETIC PEPTIDE 1030 pg/mL (0-450); TROPONIN I 0.05 ng/mL
[2017-10-22] MEDS ORDERED: Albuterol-Ipratrop 3 mg / 0.5 (3 ml) UD IH PRN (23:27)
[2017-10-23 06:10] VITALS: BMI 41.4
--- NOTE | 2017-10-23 09:41 | US ---
HISTORY: Leg pain and swelling. Evaluate for DVT PHYSICIAN(S): John Paul Cannon MD. TECHNIQUE: Duplex sonography and color-flow Doppler with graded compression were used to evaluate the deep venous systems of both lower extremities. The exam is very limited by body habitus and edema. The lower femoral veins and tibial veins are not well seen FINDINGS: The visualized deep venous systems of both lower extremities are sonographically normal and compressible. Normal wave forms and augmentation are seen. There is no sonographic evidence for deep venous thrombosis in the visualized segments of both lower extremities. IMPRESSION: No sonographic evidence for deep venous thrombosis in the visualized segments of both lower extremities. Very limited study.
[2017-10-23] MEDS ORDERED: Insulin Regular 1 UNITS/0.01 ML ML SC STA (12:07)
[2017-10-23] MEDS ORDERED: metOLazone 5 MG TAB PO STA (12:19)
--- NOTE | 2017-10-23 12:19 | RAD ---
Date of service: 10/22/2017 HISTORY: chest pain COMPARISON: 09/01/2017 FINDINGS: LUNGS: No active pulmonary disease. PLEURA: No significant pleural effusion identified, no pneumothorax apparent. CARDIOVASCULAR: Severe cardiomegaly. Pacemaker OSSEOUS STRUCTURES: No significant abnormalities. VISUALIZED UPPER ABDOMEN: Normal. OTHER FINDINGS: None. IMPRESSION: No active disease.
[2017-10-23 13:21] LABS: INR 2.88; PROTHROMBIN TIME 33.5 SECONDS (9.4-12.5)
--- NOTE | 2017-10-23 15:43 | CARD ---
APPROVED REPORT Date of service: 10/22/2017 EKG Measurement Heart [id number] <Conclusion> Atrial sensed, Biventricular paced rhythm. APCs Abnormal ECG
[2017-10-23] MEDS: Insulin Reg-HIGH-Coverage SC SCH ×2 (16:48→22:46)
[2017-10-23] MEDS: Oxycodone/Acetaminophen 10/325 mg Tab PO PRN (17:33)
--- NOTE | 2017-10-23 17:39 | US ---
PROCEDURE: Lower extremity TREVON exam HISTORY: Peripheral vascular disease with ischemic pain. Diabetes. Previous smoker. Previous left lower extremity intervention. PHYSICIAN(S): John Paul Cannon MD. FINDINGS: The resting TREVON's are normal: right, 1.26and left, 1.05. The brachial systolic pressures are symmetric. The high thigh pressures and waveforms are relatively normal. The calf PVR waveforms augment normally. No significant gradients are noted across the thighs. The ankle and metatarsal waveforms are pulsatile. The right ankle and metatarsal PVR waveforms are slightly decreased in amplitude compared to the left. This could represent subtle right tibial occlusive disease. IMPRESSION: 1. Relatively normal TREVON and PVR examination at rest. 2. Possible subtle right tibial occlusive disease.
--- NOTE | 2017-10-23 23:29 | CON ---
Copied To: Tia Cabello MD Attending MD: Tia Cabello MD DATE: 10/23/2017 LOCATION: Patient is in room 268, bed 1. REASON FOR CONSULTATION: Chest pain, cardiomyopathy, AICD insertion, obesity. HISTORY OF PRESENT ILLNESS: Patient is a 57-year-old male, known case of hypertension, hyperlipidemia, diabetes, paroxysmal atrial fibrillation, status post radiofrequency ablation, status post AICD insertion, gastric bypass surgery, status post cardiac catheterization three times, nonobstructive coronary artery disease, history of left leg acute limb ischemia and thrombectomy at left trifurcation and successful recanalization, now admitted with chest pain, which is located along the left sternal border on the pinpoint area with local tenderness and also he has pain in the arm, but again he has tenderness on the shoulder joint and upper arm, so these both pains are musculoskeletal. Denies shortness of breath or palpitation. PAST MEDICAL HISTORY: Patient, known case of CHF, cardiomyopathy, cardiac catheterization x3, nonobstructive coronary artery disease, morbid obesity, COPD, bipolar disorder, anxiety disorder, diabetes, hypertension, hyperlipidemia. Last echo was done on 05/31/2017 shows LV size normal, concentric left ventricular hypertrophy, systolic function is severely impaired with LV ejection fraction of 35%, mild mitral regurgitation, mild tricuspid regurgitation, [id number] pulmonary hypertension. PAST SURGICAL HISTORY: Positive for gastric bypass surgery, status post AICD insertion and thrombectomy from the left lower extremity at left trifurcation, history of DVT, cardiac catheterization x3, nonobstructive coronary artery disease, status post radiofrequency ablation, AICD placement. PREVIOUS CARDIAC WORKUP: As mentioned before, patient had three times cardiac catheterization, nonobstructive coronary artery disease, last cath at [facility] was done in 2014, EDP was in the range of 30s. Last echo on 05/31/2017, LV size normal, concentric left ventricular hypertrophy, severely impaired LV systolic function with ejection fraction of 35%, mild mitral regurgitation, mild tricuspid regurgitation, [id number] pulmonary hypertension, moderately dilated RV, moderate RV dysfunction. Prior to that, last MUGA scan showed ejection fraction of 43%. The patient had a CORA on 06/04/2017 because of blood culture were positive. At that time, the CORA ejection fraction was 25% to 30%, global hypokinesia, normal RV thickness, dilated RV, decreased RV systolic function, mitral regurgitation, [id number] tricuspid regurgitation. MEDICATIONS: Patient supposed to take at home Zaroxolyn, Lasix, trazodone, Requip, Cardizem, Coumadin, Singulair, metformin, lisinopril, insulin, gabapentin, furosemide. We are not sure if patient takes them regularly, he is a very poor compliant patient. PERSONAL HISTORY: Denies smoking. Denies drinking. PREVIOUS HOSPITALIZATION: Many hospitalization for CHF, cardiac catheterization, AICD insertion, thrombectomy from the left lower leg. ALLERGIES: DENIES ANY ALLERGIES. MEDICATIONS AT HOME: Patient takes trazodone 150 mg p.o. daily, Requip 0.5 mg p.o. at bedtime, Zaroxolyn 5 mg p.o. Sunday, Sunday, Sunday, diltiazem 30 mg b.i.d., warfarin 7 mg daily, Percocet one tablet p.o. every 6 hours p.r.n., Singulair 10 mg at bedtime, metformin 1000 mg b.i.d., lisinopril 2.5 daily, Ativan 1 mg b.i.d. p.r.n., insulin Levemir 40 units subcu ; glimepiride, which is Amaryl 4 mg daily; gabapentin 300 mg b.i.d., furosemide 80 b.i.d.; Pletal, which is cilostazol 100 mg b.i.d.; DuoNeb hand nebulizer therapy. FAMILY HISTORY: Not significant. REVIEW OF SYSTEMS: All the system reviewed, positive mentioned in the history and others are negative. PHYSICAL EXAMINATION: VITAL SIGNS: Blood pressure 123/65, respirations 20, pulse 84, temperature 99.5. HEENT: Head is normocephalic. Eyes: Pupils normal. Conjunctivae normal. NECK: JVP low. Carotids equal. THORAX: AP diameter normal. AICD in position over the left chest. LUNGS: Clear. CARDIOVASCULAR: S1 and S2. ABDOMEN: Protuberant. No organomegaly. EXTREMITIES: No clubbing. No cyanosis. LABORATORY DATA: WBC 8.9, hemoglobin 12.2, hematocrit 37.8, platelet 170. Prothrombin time 42.5 with INR of 3.63 which is elevated. Sodium 138, potassium 3.8, BUN 20, creatinine 1. Random sugar 358. Calcium, AST, ALT normal. Troponin 0.05. NT-pro-B natriuretic peptide 1030. DIAGNOSTIC DATA: Chest x-ray, cardiomegaly, poor inspiratory film, AICD insertion. Patient's prothrombin time 42.5 with the INR 3.63. EKG showed pacemaker rhythm. On monitor, patient has also run of ventricular tachycardia about 15 beats, rate around 140 per minute, asymptomatic. DIAGNOSES: Chest pain and arm pain, musculoskeletal pain with tenderness in the points of the pain, cardiomyopathy, history of congestive heart failure, atrial fibrillation, history of ablation, hypertension, hyperlipidemia, peripheral arterial disease, history of thrombectomy, stent insertion and left trifurcation, diabetes mellitus not controlled, Coumadin intoxicity with elevated INR, status post automatic implantable cardioverter-defibrillator insertion, history of gastric bypass surgery, ventricular tachycardia, nonsustained, status post cardiac catheterization x3, nonobstructive coronary artery disease. PLAN: Treat the chest pain and arm pain symptomatically. Patient is already on glimepiride 4 mg p.o. daily, Ativan 1 mg three times a day, diltiazem 30 mg b.i.d., Desyrel 150 mg p.o. at bedtime, insulin as ordered, gabapentin 300 mg p.o. b.i.d., Requip 0.5 mg at bedtime, Singulair 10 mg at bedtime, lisinopril 2.5 mg daily. We will follow up PT/INR. Lasix 80 mg p.o. b.i.d., Zaroxolyn 5 mg p.o. Sunday, Sunday and Sunday. We will give 40 mg IV Lasix now along with Zaroxolyn 5 mg now. We will follow with you. Tia Cabello MD
--- NOTE | 2017-10-24 02:16 | HP ---
Copied To: Axel Villagomez MD Attending MD: Axel Villagomez MD CHIEF COMPLAINT AND HISTORY OF PRESENT ILLNESS: This is a 57-year-old male who has come into the hospital complaining of chest pain. The patient states that he has been having chest pains for the last few days. Patient has a history of hypertension, dyslipidemia, atrial fibrillation. He had a cardiac ablation done. He had gastric bypass. He had left limb ischemia, and had a thrombectomy done in the past. He states that the pain is mostly substernal, it is worse when he ambulates. He also is complaining of right leg pain. He states he has been using his pain medications. The pain medications do help his pain. He has no fevers or chills. No dysuria or frequency. No weakness in the arms or the legs. He has no diaphoresis. He said the pain is about 4-5/10. REVIEW OF SYMPTOMS: All the review of symptoms are within normal limits except that was mentioned. ALLERGIES: HE HAS ALLERGIES TO SEROQUEL, WILD BERRIES. HOME MEDICATIONS: Has been reviewed on the MR. PAST MEDICAL HISTORY: 1. CHF secondary to systolic dysfunction. 2. COPD. 3. Diabetes type 2. 4. Atrial fibrillation, on Coumadin. 5. Peripheral arterial disease. 6. Pacemaker/defibrillator. 7. Restless legs syndrome. 8. Gastric bypass. 9. Morbid obesity. PAST SURGICAL HISTORY: 1. Left leg thrombosis with thrombectomy. 2. Gastric bypass. SOCIAL HISTORY: He has smoked, but quit about 25 years ago. He denies drug use. He has used cocaine and alcohol in the past. FAMILY HISTORY: Noncontributory. PHYSICAL EXAMINATION: VITAL SIGNS: Temperature of 97.5, pulse of 81, blood pressure 118/71, respirations 18, oxygen saturation is 98%, height is 5 feet 8 inches, weight is 284 pounds, BMI is 43. GENERAL: The patient lying in bed, uncomfortable, and in no acute distress. HEENT: Atraumatic and normocephalic. Anicteric sclerae. Moist mucosa. [place] conjunctivae. No oral lesions. NECK: No JVD, anterior and posterior adenopathy, thyromegaly, or bruits. CARDIOVASCULAR: S1 and S2 regular. No murmur, rubs, or gallop. LUNGS: Clear to auscultation bilaterally. No wheezes, rales, or rhonchi. ABDOMEN: Bowel sounds are positive. Soft, nontender and nondistended. No hepatosplenomegaly. No rebound and no guarding EXTREMITIES: In the lower extremity, there is 1+ edema. He has decreased pulses bilaterally. NEUROLOGIC: No facial asymmetry. Tongue is midline. No uvula deviation. Power is 5/5 upper extremity and lower extremity. Sensation intact in upper extremity and lower extremity. PSYCHIATRIC: He is awake, alert and oriented x3. No anxiety or depression. He has normal affect. GENITOURINARY: No CVA tenderness. VASCULAR: 2+ pulses in the carotid pulses and pedal pulses. SKIN: No erythema or nodules SPINE: Shows normal curvature. LABORATORY DATA: White count 8.9, hemoglobin 12.2. INR is 3.6, repeat is 2.8. Chemistry shows potassium is 3.8, creatinine is 1. He has a troponin that is 0.05. DIAGNOSTIC DATA: He had a lower extremity duplex Doppler, is negative for DVT. Chest x-ray done shows no active disease. ASSESSMENT: 1. Chest pain. 2. Right leg pain. 3. Peripheral arterial disease. 4. Hypertension. 5. Atrial fibrillation, on Coumadin. 6. Pacemaker/defibrillator. 7. Gastric bypass. 8. Restless legs syndrome. 9. Morbid obesity with body mass index of 43. PLAN: The patient is going to be admitted to the hospital. He is going to be seen by Dr. Cabello. The patient is on Amaryl for diabetes. He is going to continue the Ativan. He is on Cardizem for atrial fibrillation. The patient is going to be on Lasix twice a day. He is on Requip for his restless legs. The patient is on metolazone for his lower extremity edema. He is on Desyrel, this will be continued. I will order a right leg arterial ultrasound to rule out ischemia. I will also get Dr. John Paul Cannon to evaluate from Vascular/Interventional Radiology. Axel Villagomez MD
--- NOTE | 2017-10-24 02:16 | CON ---
Copied To: Tia Godinez MD Attending MD: Tia Godinez MD DATE: 10/23/2017 REFERRING PHYSICIAN: Axel Villagomez MD. REASON FOR CONSULT: Cough, shortness of breath, sleep apnea syndrome, asthma, leg swelling, cardiomyopathy. HISTORY OF PRESENT ILLNESS: This is a 57-year-old gentleman well known to me from previous admissions, noncompliant with the followup, noncompliant with diet and medication, comes in with chest discomfort, shortness of breath, leg swelling. 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 Presently sitting side of the bed, complaining about some rhinitis, cough, shortness of breath, leg swelling. PAST MEDICAL HISTORY: Chronic obstructive lung disease, morbid obesity, cardiac arrhythmia, history of AFib requiring multiple defibrillation and ablation therapy, has AICD, history of thromboembolic disease requiring thrombectomy, sleep apnea syndrome, not very compliant with the CPAP, cardiomyopathy, decreased LV function, diabetes. ALLERGIES: TO QUETIAPINE, DEVELOP ANAPHYLAXIS; ALSO RASH FROM WILD BERRIES. FAMILY HISTORY: No significant cardiopulmonary disease reported. SOCIAL HISTORY: Former smoker, former substance abuser. MEDICATIONS: The patient is on Amaryl 4 mg daily; Ativan 1 mg three times a day; Cardizem 30 mg twice a day; trazodone 150 mg at bedtime; DuoNeb every 4 hours p.r.n.; Lasix is 80 mg twice a day; gabapentin 300 mg twice a day; Percocet 10/325 1 tablet every 4 hours p.r.n. Requip 0.5 mg at bedtime; Singulair 10 mg daily; Zaroxolyn 5 mg Sunday, Sunday, Sunday; Zestril 2.5 mg daily. REVIEW OF SYSTEMS: No headache. Has some rhinitis, cough, shortness of breath. No chest pain at present. No nausea, no vomiting, no diarrhea. Does have a leg swelling. PHYSICAL EXAMINATION: GENERAL: Sitting at side of the bed. VITAL SIGNS: Temperature is 98, heart rate 83, respiratory rate is 18, blood pressure 114/80, pulse ox 97% on nasal cannula. HEENT: Moist mucous membrane. Crowded airway. Mallampati score is 4. NECK: Supple. No JVD. LUNGS: Has a few crackles at the bases. HEART: S1 and S2. ABDOMEN: Soft, nontender, no organomegaly. EXTREMITIES: Does have edema. NEUROLOGIC: Awake, alert, follows simple commands. LABORATORY DATA: Shows hemoglobin 12.2, hematocrit 36.8, WBC 8.9, platelet count is 170. INR 2.88. Sodium 138, potassium 2.8, chloride 102, bicarbonate 26, BUN 20, creatinine 1, glucose 94, calcium is 8.9. AST 25, ALT 22, alk phos is 58. LDH 404. Troponin 0.05. ProBNP 1030. Albumin is 3.7. Has a Doppler study done on admission shows no significant evidence of DVT thrombus in the visualized segment of the both lower extremity; also has arterial Doppler done, which shows relative normal TREVON and PVR examination at rest,possible right tibial occlusive disease. Chest x-ray shows no infiltrate or effusion. IMPRESSION AND PLAN: Cardiomyopathy; cardiac arrhythmia; history of atrial fibrillation requiring ablation and automatic implantable cardioverter defibrillator; coronary artery disease; hypertension; sleep apnea syndrome; obesity; history of thromboembolic disease requiring thrombectomy; nonhealing left leg ulcer; has a peripheral vascular disease, especially in the left lower extremity. Agree with Dr. Villagomez with the present management. 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 We will place him on CPAP 7 cm with 30% oxygen while sleeping. Avoid nocturnal sedation. Thank you and we will follow with you
[2017-10-24 06:19] VITALS: RESP 19; TEMP 97.4; O2SAT 92
[2017-10-24 07:12] LABS: INR 1.92; PROTHROMBIN TIME 22.4 SECONDS (9.4-12.5)
[2017-10-24] MEDS: Insulin Reg-HIGH-Coverage SC SCH (08:05)
[2017-10-24] MEDS ORDERED: metOLazone 5 MG TAB PO SCH (10:00)
[2017-10-24 10:01] VITALS: BP 117/79
[2017-10-24] MEDS: Oxycodone/Acetaminophen 10/325 mg Tab PO PRN (10:12)
[2017-10-24 12:26] VITALS: PULSE 90
--- NOTE | 2017-10-24 13:08 | PN ---
Copied To: Tia Cabello MD Attending MD: Tia Cabello MD DATE: 10/24/2017 LOCATION: The patient is in room 268, bed 1. REASON FOR CONSULTATION: Chest pain, cardiomyopathy, AICD insertion and obesity. SUBJECTIVE: The patient has no chest pain. No arm pain. He says breathing is much better. Yesterday's pain was suggestive of musculoskeletal pain. He has tenderness on the chest and tenderness on the arm and shoulder and he said that that was the pain which he came in with with local tenderness. The patient is sitting comfortably in the chair now without any cardiac symptoms. PHYSICAL EXAMINATION: VITAL SIGNS: Blood pressure 117/79, respirations 19, pulse 80, temperature 97.4. HEENT: Head is normocephalic. Eyes: Pupils normal. Conjunctivae normal. Nose and throat normal. NECK: JVP low. Carotids equal. THORAX: AP diameter normal. LUNGS: Clear. CARDIOVASCULAR: S1 and S2. ABDOMEN: Protuberant. No organomegaly. EXTREMITIES: Edema of the legs have improved as compared to yesterday. LABORATORY DATA: WBC 8.9, hemoglobin 12.2, hematocrit 36.8, platelet 170. Random sugar 203, phosphorus 3.8, magnesium 1.7. On admission on 10/22/2017, the patient had sodium 138, potassium 3.8, BUN 20, creatinine 1, troponin was negative. NTpro B natriuretic peptide 1030. Total protein 6.4, albumin 3.7. Extremity ultrasound: Relatively normal TREVON and PVR examination. Possible subtle right tibial occlusive disease. DIAGNOSES: Chest pain; arm pain; musculoskeletal pain with local tenderness, which has improved; cardiomyopathy; history of congestive heart failure; systolic left ventricular failure; atrial fibrillation; history of coagulation; hypertension; hyperlipidemia; peripheral arterial disease; history of thrombectomy; stent insertion in the trifurcation area of left leg; diabetes mellitus, not controlled. The patient came with Coumadin toxicity with INR 3.63. Now, the INR is 1.92. Another INR medical practice assistant was 2.88. Status post automatic implantable cardioverter-defibrillator insertion, history of gastric bypass surgery, ventricular tachycardia, nonsustained, status post cardiac catheterization x3, nonobstructive coronary artery disease, sleep apnea, obesity. PLAN: The patient is a poor compliant patient. We do not know whether he takes medicine regularly or not. This morning, he says that he is going to refill all the medications, so I doubt he was taking regularly medication. He was advised to lose weight and take medication regularly and do regular followup. We will continue present therapy and we will follow up. Tia Cabello MD
--- NOTE | 2017-10-25 05:37 | DS ---
Copied To: Axel Villagomez MD Attending MD: Axel Villagomez MD HISTORY OF PRESENT ILLNESS: The patient is a 57-year-old male who had come in to the hospital because of having chest pain. The patient also was having swelling with pain in the right leg. He was seen by Dr. Cabello. The patient is not felt to have . He does have a history of CHF and he is on Lasix and verapamil. The patient was complaining of right-sided leg pain. Initially, he had a Duplex Doppler done of the vein that did no show blood clots. He had arterial Dopplers done, which showed relative normal ABIs with possible subtle right tibial occlusive disease. He was discharged home to follow up as an outpatient. There is no complaint of headaches or dizziness, no nausea or vomiting. PHYSICAL EXAMINATION: VITAL SIGNS: Temperature is 97.4, pulse is 74, blood pressure is 113/63, respirations 19, O2 saturation 93%. ASSESSMENT: 1. Chest pain, resolved. 2. Leg pain. 3. Peripheral arterial disease. 4. Hypertension. 5. Atrial fibrillation, on Coumadin. 6. Pacemaker/defibrillator. 7. Gastric bypass. 8. Restless legs syndrome. 9. Obesity with a body mass index of 43. PLAN: The patient for his diabetes. He is going to continue with Ativan for his anxiety and depression and trazodone for his anxiety as well. He is on Lasix twice a day. He is on Neurontin for his neuropathy. The patient is on Requip for also his restless legs syndrome. He is going to continue with his lisinopril. The patient is on CPAP. He is on a heart-healthy diet. Axel Villagomez MD
== END 2017-10-24 12:31 | disposition home or self-care (01) | DRG 313 ==
LOC: ED 19:57 → ERH 23:26 → 2RNO 10-23 04:17 → OBSVTOIN 10-23 15:31
PROVIDERS: ADMIT Internal Medicine Nephrology; ATTEND Internal Medicine Nephrology
DX: R07.89 Other chest pain (principal); I50.22 Chronic systolic (congestive) heart failure; I42.9 Cardiomyopathy, unspecified; Z68.41 Body mass index [BMI] 40.0-44.9, adult; I11.0 Hypertensive heart disease with heart failure; I48.0 Paroxysmal atrial fibrillation; I27.20 Pulmonary hypertension, unspecified; I25.10 Atherosclerotic heart disease of native coronary artery without angina pectoris; J31.0 Chronic rhinitis; J44.9 Chronic obstructive pulmonary disease, unspecified; K21.9 Gastro-esophageal reflux disease without esophagitis; T45.511A Poisoning by anticoagulants, accidental (unintentional), initial encounter; E66.01 Morbid (severe) obesity due to excess calories; E11.51 Type 2 diabetes mellitus with diabetic peripheral angiopathy without gangrene; E78.5 Hyperlipidemia, unspecified; F31.9 Bipolar disorder, unspecified; G25.81 Restless legs syndrome; G47.30 Sleep apnea, unspecified; G89.29 Other chronic pain; I08.1 Rheumatic disorders of both mitral and tricuspid valves; Z79.01 Long term (current) use of anticoagulants; Z79.4 Long term (current) use of insulin; Z79.899 Other long term (current) drug therapy; Z86.718 Personal history of other venous thrombosis and embolism; Z87.01 Personal history of pneumonia (recurrent); Z87.891 Personal history of nicotine dependence; Z91.11 Patient's noncompliance with dietary regimen; Z91.14 Patient's other noncompliance with medication regimen; Z95.5 Presence of coronary angioplasty implant and graft; Z95.810 Presence of automatic (implantable) cardiac defibrillator; Z98.84 Bariatric surgery status; Z88.8 Allergy status to other drugs, medicaments and biological substances; Z91.018 Allergy to other foods; Z87.892 Personal history of anaphylaxis

== ENCOUNTER 2017-11-04 17:53 | Inpatient (IN) | payer MEDICARE ==
[2017-11-04 17:53] VITALS: PULSE 74
[2017-11-04] MEDS ORDERED: Vancomycin 1gm in NS 250ml 1 GM/250 ML BAG IVPB STA (18:22)
[2017-11-04] MEDS ORDERED: Piperacillin/Tazobact 3.375 gm 100 ML IVPB STA (18:22)
--- NOTE | 2017-11-04 18:24 | ED PDOC ---
Arrival/HPI - General Chief Complaint: Shortness Of Breath Time Seen by Provider: 11/04/17 18:12 Historian: Patient - History of Present Illness Narrative History of Present Illness (Text): 11/04/17 18:20 57 y/o male, whose PMH includes CHF, atrial fibrillation (on Coumadin), peripheral edema, COPD, diabetes, and GERD, who presents to the emergency department complaining of shortness of breath since one day ago. Patient reports his shortness of breath is associated with cough and green sputum. Patient denies chest pain, fever, headache, dizziness, abdominal pain, nausea, vomiting, diarrhea, or other complaints. PMD: Dr. Robles Time/Duration: 24 hours Symptom Onset: Sudden Symptom Course: Unchanged Context: Home Past Medical History - Provider Review Nursing Documentation Reviewed: Yes - Infectious Disease Hx of Infectious Diseases: None - Tetanus Immunization Tetanus Immunization: Unknown - Cardiac Hx Cardiac Disorders: Yes (mi) Hx Cardiac Arrhythmia: Yes (afib) Hx Congestive Heart Failure: Yes Hx Internal Defibrillator: Yes Hx Pacemaker: Yes Hx Peripheral Edema: Yes - Pulmonary Hx Respiratory Disorders: Yes Hx Bronchitis: Yes Hx Chronic Obstructive Pulmonary Disease (COPD): Yes Hx Emphysema: Yes Hx Pneumonia: Yes Hx Sleep Apnea: Yes - Neurological Hx Dizziness: Yes - HEENT Hx HEENT Disorder: Yes Other/Comment: strabismus, hard of hearing - Renal Hx Renal Disorder: No - Endocrine/Metabolic Hx Diabetes Mellitus Type 2: Yes - Hematological/Oncological Hx Blood Disorders: No - Integumentary Hx Dermatological Disorder: Yes Other/Comment: slight redness to ble and buttocks, lle wound healed, dry skin ble - Musculoskeletal/Rheumatological Hx Musculoskeletal Disorders: Yes Hx Arthritis: Yes Hx Falls: No Hx Fractures: Yes Hx Osteoarthritis: Yes - Gastrointestinal Hx Gastroesophageal Reflux: Yes Other/Comment: gastric bypass - Genitourinary/Gynecological Hx Genitourinary Disorders: No - Psychiatric Hx Anxiety: Yes Hx Bipolar Disorder: Yes Hx Depression: Yes Hx Substance Use: Yes Other/Comment: substance abuse tx,alcohol use - Past Surgical History Past Surgical History: Non-Contributing - Surgical History Hx Cardiac Catheterization: Yes Hx Coronary Stent: Yes - Anesthesia Hx Anesthesia Reactions: No Hx Malignant Hyperthermia: No - Suicidal Assessment Feels Threatened In Home Enviroment: No Family/Social History - Physician Review Nursing Documentation Reviewed: Yes Family/Social History: Unknown Family HX Smoking Status: Former Smoker Hx Alcohol Use: Yes Hx Substance Use: Yes Hx Substance Use Treatment: Yes Allergies/Home Meds Allergies/Adverse Reactions: Allergies quetiapine fumarate [From Seroquel] Adverse Reaction (Verified 11/04/17 18:07) ANAPHYLAXIS wild berries Allergy (Intermediate, Uncoded 10/22/17 20:08) RASH Home Medications: Home Meds Medication Instructions Recorded Confirmed Albuterol/Ipratropium [Duoneb 3 3 ml IH PRN PRN 09/01/17 11/04/17 mg/0.5 mg (3 ml) UD] Oxycodone HCl/Acetaminophen 1 tab PO Q6 PRN 10/04/17 11/04/17 [Percocet 10-325 mg Tablet] Review of Systems - Review of Systems Constitutional: absent: Fevers ENT: absent: Sinus Congestion Respiratory: SOB, Cough, Sputum Cardiovascular: absent: Chest Pain Gastrointestinal: absent: Abdominal Pain Genitourinary Male: absent: Dysuria Musculoskeletal: absent: Back Pain Skin: absent: Rash Neurological: absent: Headache, Dizziness Endocrine: absent: Diaphoresis Physical Exam Vital Signs Reviewed: Yes Vital Signs Temp Pulse Resp BP Pulse Ox 11/04/17 18:04 98.1 F 97 H 20 111/76 98 Temperature: Afebrile Blood Pressure: Normal Pulse: Tachycardic Respiratory Rate: Normal Appearance: Positive for: Well-Appearing, Non-Toxic, Comfortable Pain Distress: None Mental Status: Positive for: Alert and Oriented X 3 - Systems Exam Head: Present: Atraumatic, Normocephalic Pupils: Present: PERRL Extroacular Muscles: Present: EOMI Conjunctiva: Present: Normal Respiratory/Chest: Present: Decreased Breath Sounds, Rales (at bases ). No: Clear to Auscultation, Good Air Exchange, Respiratory Distress, Accessory Muscle Use Cardiovascular: Present: Regular Rate and Rhythm, Normal S1, S2. No: Murmurs Abdomen: Present: Normal Bowel Sounds. No: Tenderness, Distention, Peritoneal Signs, Rebound, Guarding Neurological: Present: GCS=15, CN II-XII Intact, Speech Normal Skin: Present: Warm, Dry, Normal Color. No: Rashes Psychiatric: Present: Alert, Oriented x 3, Normal Insight, Normal Concentration Medical Decision Making ED Course and Treatment: 11/04/17 Impression: 57 y/o male with rales and bases and diminished breath sounds complaining of shortness of breath and cough. Plan: -- EKG -- Chest X-Ray -- Labs -- Albuterol, Prednisone, Vancomycin, and Zosyn -- Urinalysis -- Reassess and disposition Prior Visits: Notes and results from previous visits were reviewed. Progress Notes: EKG: Ordered, reviewed and independently interpreted the EKG. Rate: 95 BPM Rhythm: NSR Interpretation: RBBB. No changes from previous - Lab Interpretations I have reviewed the lab results: Yes - RAD Interpretation Instructional Technology Facilitator: Radiologist - EKG Interpretation Interpreted by ED Physician: Yes Type: 12 lead EKG - Scribe Statement The provider has reviewed the documentation as recorded by the Scribe Amber Barker Provider Scribe Attestation: All medical record entries made by the Scribe were at my direction and personally dictated by me. I have reviewed the chart and agree that the record accurately reflects my personal performance of the history, physical exam, medical decision making, and the department course for this patient. I have also personally directed, reviewed, and agree with the discharge instructions and disposition. Disposition/Present on Arrival - Present on Arrival History of DVT/PE: No History of Uncontrolled Diabetes: Yes Urinary Catheter: No History of Decub. Ulcer: No History Surgical Site Infection Following: None - Disposition
[2017-11-04] MEDS: Albuterol-Ipratrop 3 mg / 0.5 (3 ml) UD IH SCH ×3 (18:39→19:11)
[2017-11-04 18:49] LABS: BASO # 0.06 K/mm3 (0.0-2.0); BASO % 0.5 % (0.0-3.0); EOS # 0.2 (0.0-0.7); EOS % 1.9 % (1.5-5.0); GRAN # 9.14 (1.4-6.5); GRAN % 77.4 % (50.0-68.0); HEMOGLOBIN 13.2 g/dL (14.0-18.0); LYMPH # 1.6 (1.2-3.4); LYMPH % 13.8 % (22.0-35.0); MEAN CELL VOLUME 82.5 fl (80.0-105.0); MEAN CORPUSCULAR HEMOGLOBIN 27.8 pg (25.0-35.0); MEAN CORPUSCULAR HGB CONC 33.8 g/dl (31.0-37.0); MEAN PLATELET VOLUME 9.8 fl (7.0-11.0); MONO # 0.8 (0.1-0.6); MONO % 6.4 % (1.0-6.0); RBC 4.74 10^6/uL (3.5-6.1); WHITE BLOOD COUNT 11.8 10^3/ul (4.5-11.0)
[2017-11-04 18:58] LABS: INR 1.78; PARTIAL THROMBOPLASTIN TIME 26.6 Seconds (25.1-36.5); PROTHROMBIN TIME 20.5 SECONDS (9.4-12.5)
[2017-11-04 19:04] LABS: ALB/GLOB RATIO 1.5 (1.1-1.8); ALBUMIN 4.2 g/dL (3.0-4.8); ALT/SGPT 22 U/L (7-56); AST/SGOT 24 U/L (17-59); BLOOD UREA NITROGEN 24 mg/dL (7-21); CALCIUM 9.5 mg/dL (8.4-10.5); GFR AFRICAN-AMERICAN > 60; GFR NON-AFRICAN AMERICAN > 60
[2017-11-04 19:10] LABS: B-TYPE NATRIURETIC PEPTIDE 952 pg/mL (0-450); TROPONIN I 0.05 ng/mL
[2017-11-04 20:04] VITALS: BMI 41.0
[2017-11-04 20:06] LABS: URINE APPEARANCE CLEAR (CLEAR); URINE BILIRUBIN NEGATIVE (NEGATIVE); URINE BLOOD NEGATIVE (NEGATIVE); URINE COLOR LIGHT YELLOW (YELLOW); URINE GLUCOSE (UA) NEGATIVE (NEGATIVE); URINE LEUKOCYTE ESTERASE NEGATIVE Leu/uL (NEGATIVE); URINE PROTEIN NEGATIVE mg/dL (<30 mg/dL); URINE UROBILINOGEN 0.2 E.U./dL (<1 E.U./dL)
[2017-11-04] MEDS ORDERED: Oxycodone/Acetaminophen 10/325 mg Tab PO PRN (23:24)
[2017-11-05] MEDS: Albuterol-Ipratrop 3 mg / 0.5 (3 ml) UD IH SCH ×5 (00:26→20:21)
[2017-11-05] MEDS ORDERED: Insulin Reg-MEDIUM-Coverage SC SCH (07:30)
--- NOTE | 2017-11-05 08:40 | RAD ---
Date of service: 11/04/2017 HISTORY: sob COMPARISON: 10/22/2017. FINDINGS: LUNGS: The lungs are well inflated. There is moderate pulmonary venous congestion. PLEURA: No significant pleural effusion identified, no pneumothorax apparent. CARDIOVASCULAR: There is moderate cardiomegaly and prominent central vasculature. There is stable position of left-sided permanent pacing device. OSSEOUS STRUCTURES: No significant abnormalities. VISUALIZED UPPER ABDOMEN: Normal. OTHER FINDINGS: None. IMPRESSION: Moderate pulmonary venous congestion and persistent moderate cardiomegaly. No active pulmonary disease.
--- NOTE | 2017-11-05 09:54 | CARD ---
APPROVED REPORT Date of service: 11/04/2017 EKG Measurement Heart [id number] <Conclusion> A sensed V paced rythm
[2017-11-05] MEDS ORDERED: metOLazone 5 MG TAB PO SCH (10:00)
--- NOTE | 2017-11-05 11:57 | CP.PCM.CON ---
<Td Ruiz - Last Filed: 11/05/17 11:54> History of Present Illness - History of Present Illness History of Present Illness: Podiatry Consult Note: Dr. Stein 57 year old male with PMHx of DM, HTN, CHF (w/ pacemaker), COPD, pacemaker, Diabetes, depression, bipolar, anxiety was seen and evaluated for left hallux ingrowing nail. Patient seen at bedside today with attending Dr. Stein. Patient seen resting comfortably in chair at time of visit, appears AAOx3 and in NAD. Patient states that he bumped his foot about a month ago and ended up bleeding a lot from the left big toe from the nail bed. Reports that he has not been treating or doing anything after the incident. States that he was admitted to the hospital today for shortness of breath. Denies of pain. Denies any pedal complaints at this time. Denies nausea, fever, chills, chest pain during the time of visitation. Review of Systems - Constitutional Constitutional: As Per HPI Past Patient History - Infectious Disease Hx of Infectious Diseases: None - Tetanus Immunizations Tetanus Immunization: Unknown - Past Medical History & Family History Past Medical History?: Yes - Past Social History Smoking Status: Never Smoked - CARDIAC Hx Cardiac Disorders: Yes (mi) Hx Cardia Arrhythmia: Yes (afib) Hx Congestive Heart Failure: Yes Hx Internal Defibrillator: Yes Hx Pacemaker: Yes Hx Peripheral Edema: Yes - PULMONARY Hx Respiratory Disorders: Yes Hx Bronchitis: Yes Hx Chronic Obstructive Pulmonary Disease (COPD): Yes Hx Emphysema: Yes Hx Pneumonia: Yes Hx Sleep Apnea: Yes - NEUROLOGICAL Hx Dizziness: Yes - HEENT Hx HEENT Problems: Yes Other/Comment: strabismus, hard of hearing - RENAL Hx Chronic Kidney Disease: No - ENDOCRINE/METABOLIC Hx Diabetes Mellitus Type 2: Yes - HEMATOLOGICAL/ONCOLOGICAL Hx Blood Disorders: No - INTEGUMENTARY Hx Dermatological Problems: Yes Other/Comment: slight redness to ble and buttocks, lle wound healed, dry skin ble - MUSCULOSKELETAL/RHEUMATOLOGICAL Hx Falls: No - GASTROINTESTINAL Hx Gastroesophageal Reflux: Yes Other/Comment: gastric bypass - GENITOURINARY/GYNECOLOGICAL Hx Genitourinary Disorders: No - PSYCHIATRIC Hx Anxiety: Yes Hx Bipolar Disorder: Yes Hx Depression: Yes Hx Substance Use: No Other/Comment: substance abuse tx,alcohol use - SURGICAL HISTORY Hx Cardiac Catheterization: Yes Hx Coronary Stent: Yes Hx Gastric Bypass Surgery: Yes - ANESTHESIA Hx Anesthesia Reactions: No Hx Malignant Hyperthermia: No Meds Allergies/Adverse Reactions: Allergies Allergy/AdvReac Type Severity Reaction Status Date / Time quetiapine fumarate AdvReac ANAPHYLAXIS Verified 11/04/17 18:07 [From Seroquel] wild berries Allergy Intermediate RASH Uncoded 10/22/17 20:08 - Medications Medications: Current Medications Albuterol/Ipratropium (Duoneb 3 Mg/0.5 Mg (3 Ml) Ud) 3 ml IH TIDRESP [facility] Last Admin: 11/05/17 07:27 Dose: 3 ml Albuterol/Ipratropium (Duoneb 3 Mg/0.5 Mg (3 Ml) Ud) 3 ml IH TIDRESP [facility] Diltiazem HCl (Cardizem) 30 mg PO BID [facility] Last Admin: 11/05/17 10:07 Dose: 30 mg Furosemide (Lasix) 80 mg PO BID [facility] Last Admin: 11/05/17 10:11 Dose: 80 mg Gabapentin (Neurontin) 300 mg PO BID [facility] PRN Reason: Protocol Last Admin: 11/05/17 10:11 Dose: 300 mg Glimepiride (Amaryl) 4 mg PO DAILY [facility] Last Admin: 11/05/17 10:11 Dose: 4 mg Insulin Detemir (Levemir) 10 unit SC [facility] Insulin Human Regular (Humulin R High) 0 units SC [facility] PRN Reason: Protocol Lisinopril (Zestril) 2.5 mg PO DAILY [facility] Last Admin: 11/05/17 10:07 Dose: 2.5 mg Lorazepam (Ativan) 1 mg PO BID PRN; Protocol PRN Reason: Anxiety Last Admin: 11/04/17 23:57 Dose: 1 mg Metolazone (Zaroxolyn) 5 mg PO [facility] Last Admin: 11/05/17 10:11 Dose: 5 mg Montelukast Sodium (Singulair) 10 mg PO [facility] Last Admin: 11/04/17 23:59 Dose: 10 mg Oxycodone/Acetaminophen (Percocet 10/325 Mg Tab) 1 tab PO Q6 PRN PRN Reason: Pain, severe (8-10) Ropinirole HCl (Requip) 0.5 mg PO [facility] Last Admin: 11/04/17 23:59 Dose: 0.5 mg Trazodone HCl (Desyrel) 150 mg PO HS [facility] Last Admin: 11/05/17 00:00 Dose: 150 mg Warfarin Sodium (Coumadin) 5 mg PO HS [facility] PRN Reason: Protocol Last Admin: 11/04/17 23:57 Dose: 5 mg Warfarin Sodium (Coumadin) 2 mg PO HS [facility] PRN Reason: Protocol Last Admin: 11/04/17 23:58 Dose: 2 mg Physical Exam - Constitutional Appears: Well, Non-toxic, No Acute Distress - Extremities Exam Additional comments: Left LE exam: VASC: DP and PT pulses non-palpable, Temp gradient: warm to cool from proximal to distal, Cap refill time: < 3 sec to all digits, bilateral +1 pitting edema DERM: Dried, coagulated blood noted on the medial nail border of the left hallux , no active drainage, No other open lesions, < 2 cm erythema surrounding the distal hallux, no ascending cellulitis, no fluctuance, no active drainage, no malodor, no acute clinical signs of infection NEURO: Gross sensation diminished bilaterally ORTHO: Moderate tenderness on palpation of the medial hallux - Neurological Exam Neurological exam: Alert, Oriented x3 - Psychiatric Exam Psychiatric exam: Normal Affect, Normal Mood Results - Vital Signs Recent Vital Signs: Last Vital Signs Temp 97.6 F 11/05/17 06:00 Pulse 95 H 11/05/17 07:31 Resp 18 11/05/17 06:00 BP 128/89 11/05/17 10:11 Pulse Ox 96 11/05/17 06:00 - Labs Result Diagrams: 11/04/17 18:32 11/04/17 18:32 Labs: Laboratory Results - last 24 hr 11/04/17 11/05/17 11/05/17 19:54 07:48 11:17 POC Glucose (mg/dL) 454 H* 475 H* Urine Color Light yellow Urine Appearance Clear Urine pH 6.0 Ur Specific [place] 1.015 Urine Protein Negative Urine Glucose (UA) Negative Urine Ketones Negative Urine Blood Negative Urine Nitrate Negative Urine Bilirubin Negative Urine Urobilinogen 0.2 Ur Leukocyte Esterase Negative Assessment & Plan - Assessment and Plan (Free Text) Assessment: 57 year old male with extensive PMHx was evaluated for left hallux 1). onychocryptosis, 2). onycholysis Plan: Patient examined and evaluated with attending Dr. Stein Labs and vital reviewed (afebrile, leukocytosis) Leukocytosis not from lower extremity Left hallux medial nail plate debrided using sterile nail clippers Site cleaned with saline and dressing applied using 4x4, tape Bactroban ordered Patient is stable from podiatry standpoint Will continue to follow while in house Thank you for the podiatry consult and allowing to take part in patient care - Date & Time Date: 11/05/17 Time: 12:10 <Tha Stein - Last Filed: 11/05/17 17:20> Meds - Medications Medications: Current Medications Albuterol/Ipratropium (Duoneb 3 Mg/0.5 Mg (3 Ml) Ud) 3 ml IH TIDRESP [facility] Last Admin: 11/05/17 13:16 Dose: Not Given Albuterol/Ipratropium (Duoneb 3 Mg/0.5 Mg (3 Ml) Ud) 3 ml IH TIDRESP [facility] Last Admin: 11/05/17 13:16 Dose: Not Given Diltiazem HCl (Cardizem) 30 mg PO BID [facility] Last Admin: 11/05/17 10:07 Dose: 30 mg Furosemide (Lasix) 80 mg PO BID [facility] Last Admin: 11/05/17 17:15 Dose: 80 mg Gabapentin (Neurontin) 300 mg PO BID [facility] PRN Reason: Protocol Last Admin: 11/05/17 17:15 Dose: 300 mg Glimepiride (Amaryl) 4 mg PO DAILY [facility] Last Admin: 11/05/17 10:11 Dose: 4 mg Insulin Detemir (Levemir) 10 unit SC HS [facility] Insulin Human Regular (Humulin R High) [address] [facility] PRN Reason: Protocol Last Admin: 11/05/17 16:23 Dose: 10 unit Lisinopril (Zestril) 2.5 mg PO DAILY [facility] Last Admin: 11/05/17 10:07 Dose: 2.5 mg Lorazepam (Ativan) 1 mg PO BID PRN; Protocol PRN Reason: Anxiety Last Admin: 11/05/17 15:59 Dose: 1 mg Metolazone (Zaroxolyn) 5 mg PO MWF [facility] Last Admin: 11/05/17 10:11 Dose: 5 mg Montelukast Sodium (Singulair) 10 mg PO [facility] Last Admin: 11/04/17 23:59 Dose: 10 mg Mupirocin (Bactroban Ointment) 10 gm TOP DAILY [facility] Oxycodone/Acetaminophen (Percocet 10/325 Mg Tab) 1 tab PO Q6 PRN PRN Reason: Pain, severe (8-10) Ropinirole HCl (Requip) 0.5 mg PO [facility] Last Admin: 11/04/17 23:59 Dose: 0.5 mg Trazodone HCl (Desyrel) 150 mg PO [facility] Last Admin: 11/05/17 00:00 Dose: 150 mg Warfarin Sodium (Coumadin) 5 mg PO [facility] PRN Reason: Protocol Last Admin: 11/04/17 23:57 Dose: 5 mg Warfarin Sodium (Coumadin) 2 mg PO [facility] PRN Reason: Protocol Last Admin: 11/04/17 23:58 Dose: 2 mg Results - Vital Signs Recent Vital Signs: Last Vital Signs Temp 97.4 F L 11/05/17 12:17 Pulse 116 H 11/05/17 14:00 Resp 20 11/05/17 12:17 BP 121/69 11/05/17 17:15 Pulse Ox 96 11/05/17 06:00 - Labs Result Diagrams: 11/04/17 18:32 11/04/17 18:32 Labs: Laboratory Results - last 24 hr 11/04/17 11/05/17 11/05/17 19:54 07:48 11:17 POC Glucose (mg/dL) 454 H* 475 H* Urine Color Light yellow Urine Appearance Clear Urine pH 6.0 Ur Specific [place] 1.015 Urine Protein Negative Urine Glucose (UA) Negative Urine Ketones Negative Urine Blood Negative Urine Nitrate Negative Urine Bilirubin Negative Urine Urobilinogen 0.2 Ur Leukocyte Esterase Negative 11/05/17 16:03 POC Glucose (mg/dL) 318 H Urine Color Urine Appearance Urine pH Ur Specific [place] Urine Protein Urine Glucose (UA) Urine Ketones Urine Blood Urine Nitrate Urine Bilirubin Urine Urobilinogen Ur Leukocyte Esterase Attending/Attestation - Attestation I have personally seen and examined this patient.: Yes I have fully participated in the care of the patient.: Yes I have reviewed all pertinent clinical information: Yes
[2017-11-05] MEDS: Insulin Reg-HIGH-Coverage SC SCH ×3 (12:45→23:31)
--- NOTE | 2017-11-05 14:04 | CON ---
Copied To: Tia Cabello MD Attending MD: Tia Cabello MD DATE: 11/05/2017 LOCATION: The patient in room 269, bed 2. REASON FOR CONSULTATION: Shortness of breath, cardiomyopathy, status post AICD insertion, obesity. HISTORY OF PRESENT ILLNESS: The patient is a 57-year-old male, who is known to have cardiomyopathy, hypertension, hyperlipidemia, diabetes mellitus, paroxysmal atrial fibrillation, status post radiofrequency ablation, status post AICD insertion, gastric bypass surgery, cardiac catheterization x3, nonobstructive coronary artery disease, history of left leg acute ischemia and thrombectomy at left trifurcation and successful recanalization. Admitted with shortness of breath since yesterday morning. The patient denies chest pain or palpitation. The patient compared to admission time, now feeling better. The patient is sitting on bed without any complaint of chest pain or palpitation at this time. PAST MEDICAL HISTORY: Known case of cardiomyopathy, cardiac catheterization x3, nonobstructive coronary artery disease, CHF, morbid obesity, COPD, bipolar disorder, diabetes, hypertension, hyperlipidemia, status post AICD insertion, status post gastric bypass surgery, history of thrombectomy at left trifurcation, history of DVT. PREVIOUS CARDIAC WORKUP: The patient's last echo was on 05/31/2017, which showed concentric left ventricular hypertrophy, enlarged heart, systolic function severely impaired with LV ejection fraction 35%, mild mitral regurg, mild tricuspid regurg, mild to moderate pulmonary hypertension. As mentioned above, the patient had cardiac catheterization 3 times, all the time finding was the same. The patient had cardiomyopathy and there was no significant blockage in the coronaries. He was told to have nonobstructive coronary artery disease. Last catheterization was done at [facility] in 2014, which showed the EDP was in the range of 30s. Last echo was done on 05/31/2017 showed concentric hypertrophy with very severely impaired LV systolic function, ejection fraction 35%, mild mitral regurg, mild tricuspid regurg, mild to moderate pulmonary hypertension, moderately dilated RV, moderate RV dysfunction. MUGA scan had showed ejection fraction of 43%. The patient had CORA on 06/04/2017 because of blood culture was positive. At that time, ejection fraction by CORA was 25-30%. Global hypokinesis, dilated RV, decreased RV systolic function, mitral regurg, mild to moderate tricuspid regurg. The patient had cardiac catheterization x3. Nonobstructive coronary artery disease and found to have cardiomyopathy, LV systolic dysfunction. MEDICATIONS: The patient is a poor compliant patient. He was supposed to be on Zaroxolyn. He says he is not taking Zaroxolyn. He says he was taking Lasix, trazodone, Requip, Cardizem, Coumadin, Singulair, metformin, lisinopril, insulin, furosemide. PERSONAL HISTORY: Denies smoking. Denies drinking. PREVIOUS HOSPITALIZATION: The patient was admitted many times for CHF, AICD insertion. He also had ablation for atrial fibrillation. ALLERGIES: DENIED ANY ALLERGIES. PHYSICAL EXAMINATION: VITAL SIGNS: Pulse was 86, temperature 97.4, blood pressure 121/69. The patient is afebrile. HEENT: Head is normocephalic. Eyes: Pupils normal. Conjunctivae normal. NECK: JVP low. Carotids equal. THORAX: AP diameter normal. LUNGS: No significant rales. CARDIOVASCULAR: S1 and S2. ABDOMEN: Protuberant. No organomegaly. EXTREMITIES: No clubbing. No cyanosis. LABORATORY DATA: WBC 11.8, hemoglobin 13.2, hematocrit 39.1, platelet 217. Sodium 141, potassium 3.6, BUN 24, creatinine 1. Random glucose 177, repeat one 454 and 475. AST, ALT normal. NTpro B natriuretic peptide 952. Troponin 0.05. Chest x-ray showed cardiomegaly. Film is very poor penetrated, so there are questionable congestive changes. EKG showed paced rhythm. DIAGNOSES: Congestive heart failure; left ventricular systolic dysfunction; cardiomyopathy; history of atrial fibrillation, status post ablation; history of automatic implantable cardioverter-defibrillator insertion; the patient had 3 times catheterization, which showed nonobstructive coronary artery disease and cardiomyopathy; hypertension; diabetes mellitus; obesity; sleep apnea; history of thromboembolic disease; hyperlipidemia; status post automatic implantable cardioverter-defibrillator insertion; status post thrombectomy from the left trifurcation; peripheral vascular disease. PLAN: The patient is on glimepiride 4 mg daily; diltiazem 30 mg p.o. b.i.d; warfarin 5 mg was given one time dose now, 2 mg daily; trazodone; Desyrel 150 mg p.o. daily; albuterol and ipratropium hand nebulizer therapy; furosemide 40 IV stat was given, then 80 mg b.i.d.; insulin as I ordered; Neurontin 300 mg b.i.d.; Requip 0.5 mg p.o. at bedtime; Singulair 10 at bedtime; metolazone 5 mg p.o. Sunday, Sunday, Sunday; lisinopril 2.5 mg daily; piperacillin and tazobactam 100 mL one dose was given; Singulair 10 mg daily. Sodium 141, potassium 3.6, BUN 24, creatinine 1. Random sugar 454, 475. Random glucose 177. AST, ALT normal. Total protein, albumin normal. Troponin 0.05. NTpro B natriuretic peptide 952. The patient is a poor compliant patient, so we will continue present therapy. The patient was not taking metolazone at home and we do not know what other medications he was not taking. So we will continue to follow closely and we will follow with you. The patient's prothrombin time yesterday was 20.5, INR at 1.78. We will repeat PT/INR in the morning. We will follow. Tia Cabello MD
[2017-11-05] MEDS ORDERED: Insulin Detemir 100 units/ml Vial (Levemir) SC SCH (22:00)
--- NOTE | 2017-11-06 01:49 | CON ---
Copied To: Tia Godinez MD Attending MD: Tia Godinez MD DATE: 11/05/2017 PULMONARY CONSULTATION REFERRING PHYSICIAN: Dr. Axel Villagomez REASON FOR CONSULTATION: Chronic obstructive lung disease, cardiomyopathy, sleep apnea syndrome. HISTORY OF PRESENT ILLNESS: This is 57 years old gentleman, well known to me from previous admission, came in with shortness of breath, fluid overloaded, received diuretics and bronchodilator, feeling better. Presently out of bed to chair. Still short of breath. Does not use CPAP. No nausea, no vomiting, no diarrhea. Does have a leg swelling. PAST MEDICAL HISTORY: Chronic obstructive lung disease, morbid obesity, cardiac arrhythmia, history of AFib, requiring multiple defibrillation and also ablation therapy. Finally, has AICD placed. Also has thromboembolic disease, requiring thrombectomy in the past. Sleep apnea syndrome, noncompliant of CPAP, cardiomyopathy, decreased LV function, diabetes. ALLERGIES: TO QUETIAPINE, END UP WITH ANAPHYLAXIS; ALSO ALLERGIC TO BERRIES. FAMILY HISTORY: No significant cardiopulmonary disease reported. SOCIAL HISTORY: Former smoker, former substance abuser. MEDICATIONS: He is on Amaryl 4 mg daily; Ativan 1 mg twice a day p.r.n.; Bactroban 10 g topically at affected area; diltiazem 30 mg twice a day; Coumadin 7 mg will be given; trazodone 150 mg at bedtime; DuoNeb every 8 hours round the clock; insulin coverage; Lasix 80 mg twice a day; Levemir 10 units subcu at bedtime; gabapentin 300 mg twice a day; Percocet 10/325 1 tab every 6 hours p.r.n.; Requip 0.5 mg at bedtime; Singulair 10 mg daily; Zaroxolyn 5 mg Sunday, Sunday, and Sunday; Zestril 2.5 mg daily. REVIEW OF SYSTEMS: No headache, no rhinitis. Has short of breath. Mild cough. No sputum production. No chest pain. No nausea, no vomiting, no diarrhea. Does have a leg swelling. PHYSICAL EXAMINATION: GENERAL: Sitting up, no acute distress. VITAL SIGNS: Temp is 98, heart rate 88, respiratory rate is 20, blood pressure 120/85, pulse ox 96% on 3 liters nasal cannula. HEENT: Moist mucous membrane. Crowded airway. NECK: Supple. No JVD. LUNGS: Have a few crackles. HEART: S1 and S2. ABDOMEN: Soft, nontender, no organomegaly. EXTREMITIES: Decreased edema since yesterday. NEUROLOGIC: Awake and alert, follows simple commands. LABORATORY DATA: Shows hemoglobin of 13.2, hematocrit 39.1, WBC 11.8, platelet is 217. INR 1.78. PTT 27. Sodium 141, potassium 3.6, chloride 103, bicarbonate 26, BUN 24, creatinine 1, glucose 177, calcium 9.5. AST 24, ALT 22, alk phos is 71. Troponin 0.05. ProBNP 952. Albumin is 4.2. Microbiology; blood culture, urine culture, so far there is no growth. Chest x-ray done on admission yesterday shows moderate pulmonary venous congestion and persistent moderate cardiomegaly. No active pulmonary disease reported. IMPRESSION AND PLAN: Cardiomyopathy, cardiac arrhythmia, history of atrial fibrillation, requiring ablation and automatic implantable cardioverter defibrillator, coronary artery disease, hypertension, sleep apnea syndrome, history of thromboembolic disease, requiring thrombectomy, nonhealing leg ulcers, peripheral vascular disease. I agree with Dr. Villagomez with the present management. We will start CPAP 7 cm with 30% oxygen while sleeping. Add steroids inhaler and also Mucomyst. Continue Singulair. Elevate lower extremity. Diuretics. Follow up labs in the morning. Thank you and we will follow up with you. Tia Godinez MD
--- NOTE | 2017-11-06 01:58 | HP ---
Copied To: Axel Villagomez MD Attending MD: Axel Villagomez MD CHIEF COMPLAINT AND HISTORY OF PRESENT ILLNESS: This is a 57-year-old male who has come into the hospital with past medical history of atrial fibrillation, CHF secondary to systolic dysfunction, pulmonary edema, peripheral arterial disease, COPD, diabetes type 2. He is complaining of shortness of breath. He has had a cough with greenish sputum. He states he did not have any chest pain. He denies any fevers, headache. No nausea. No vomiting. No abdominal pain. No back pain. No dysuria or frequency. REVIEW OF SYSTEMS: All other review of symptoms are within normal limits except as mentioned. He states the shortness of breath was worse when he exerts himself. ALLERGIES: TO SEROQUEL AND WILD BERRIES. HOME MEDICATIONS: Has been reviewed in the chart. PAST MEDICAL HISTORY: 1. Gastric bypass. 2. CHF secondary to systolic dysfunction. 3. COPD. 4. Diabetes type 2. 5. Atrial fibrillation on Coumadin. 6. Peripheral arterial disease. 7. Pacemaker/defibrillator. 8. Restless leg syndrome. 9. Morbid obesity. PAST SURGICAL HISTORY: 1. Left leg thrombosis for thrombectomy. 2. Gastric bypass. SOCIAL HISTORY: He smokes but quit about 25 years ago. He denies drug use. He has used cocaine and alcohol in the past but not currently. FAMILY HISTORY: Noncontributory. PHYSICAL EXAMINATION: VITAL SIGNS: Temperature 97.4, pulse of 86, blood pressure 121/69, respirations 20. GENERAL: The patient lying in bed, uncomfortable, and in no acute distress. HEENT: Atraumatic and normocephalic. Anicteric sclerae. Moist mucosa. [place] conjunctivae. No oral lesions. NECK: No JVD, anterior and posterior adenopathy, thyromegaly or bruits. CARDIOVASCULAR: S1 and S2 regular. No murmur, rubs or gallop. LUNGS: Clear to auscultation bilaterally. No wheezes, rales or rhonchi. ABDOMEN: Bowel sounds are positive. Soft, nontender and nondistended. No hepatosplenomegaly. No rebound and no guarding. Obese. EXTREMITIES: In the lower extremity, he has trace edema. In the left toe, there is reddening. There is edema on his toes. NEUROLOGIC: No facial asymmetry. Tongue is midline. No uvula deviation. Power is 5/5 upper extremity and lower extremity. Sensation intact in upper extremity and lower extremity. PSYCHIATRIC: He is awake, alert and oriented x3. No anxiety or depression. He has normal affect. GENITOURINARY: No CVA tenderness. VASCULAR: 2+ pulses in the carotid pulses and pedal pulses. SKIN: No erythema or nodules. SPINE: Shows normal curvature. LABORATORY DATA: White count of 11.8, hemoglobin 13.2, platelet count is 217. INR is 1.78. Chemistry showed sodium 141, potassium 3.6, creatinine 1. Glucose is 454, repeat is 475. Urine shows blood is negative. Blood cultures have been negative. DIAGNOSTIC DATA: He has an EKG that shows paced rhythm. He has a chest x-ray that shows moderate pulmonary venous congestion. ASSESSMENT: 1. Acute chronic obstructive pulmonary disease exacerbation. 2. Acute congestive heart failure secondary to systolic dysfunction. 3. Atrial fibrillation. 4. Hypertension. 5. Pacemaker/defibrillator. 6. Gastric bypass. 7. Restless leg syndrome. 8. Obesity with a body mass index of 41. PLAN: The patient is admitted to the hospital. He has acute COPD. He has been given Solu-Medrol. His glucose is increased because of his steroids. I placed him on Levemir. He is on Neurontin for neuropathy. The patient is on gabapentin. He is going to be on Coumadin, this was continued. I asked Cardiology and Pulmonary to see the patient, as well as Podiatry. Patient is on nebulizer treatment. He is going to continue with his trazodone. He is on Zaroxolyn for his lower extremity edema. The patient is on heart-healthy diet. I did speak to Dr. Cabello today. Axel Villagomez MD
[2017-11-06 04:14] VITALS: RESP 18
[2017-11-06 06:54] VITALS: TEMP 98.4; O2SAT 96
[2017-11-06 07:42] LABS: INR 2.16; PROTHROMBIN TIME 25.2 SECONDS (9.4-12.5)
[2017-11-06] MEDS: Albuterol-Ipratrop 3 mg / 0.5 (3 ml) UD IH SCH ×2 (07:48→08:36)
[2017-11-06] MEDS ORDERED: Budesonide 0.5 mg/2 ml Inhal Susp UD IH SCH (08:00)
[2017-11-06] MEDS ORDERED: Acetylcysteine 20% Inhal Soln (4ml) IH SCH (08:00)
--- NOTE | 2017-11-06 08:22 | PN ---
Copied To: Axel Villagomez MD Attending MD: Axel Villagomez MD DATE: 11/06/2017 SUBJECTIVE: The patient has no complaints of any chest pain. No shortness of breath. No headaches or dizziness. OBJECTIVE: VITAL SIGNS: Temperature is 98.1, pulse 72, blood pressure is 119/76, respirations 18. GENERAL: The patient is lying in bed, flat, comfortable. HEENT: No oral lesion. Anicteric sclerae. Moist mucosa. NECK: No JVD, adenopathy, or thyromegaly. CARDIOVASCULAR: S1 and S2, regular. No murmurs, rubs, or gallops. LUNGS: Clear to auscultation bilaterally. No wheeze, rales, or rhonchi. ABDOMEN: Bowel sounds are positive. Soft, nontender and nondistended. EXTREMITIES: No cyanosis, clubbing or edema. ASSESSMENT: 1. Acute chronic obstructive pulmonary disease. 2. Acute congestive heart failure secondary to systolic dysfunction. 4. Atrial fibrillation, on Coumadin. 5. Hypertension. 6. Pacemaker/defibrillator. 7. Status post gastric bypass. 8. Restless legs syndrome. 9. Obesity with a body mass index of 41. PLAN: The patient is currently on Amaryl for his diabetes. He is going to continue with Ativan. He is on Coumadin for his anticoagulation. The patient is on Lasix twice a day. He is on Neurontin for his neuropathy. He is getting Singulair for his breathing. The patient is on Zaroxolyn for his lower extremity edema. He is on nebulizer treatments. He is being followed by Dr. Marti from Podiatry for the erythema on the left foot. He is getting CPAP at night. Axel Villagomez MD
[2017-11-06] MEDS: Insulin Reg-HIGH-Coverage SC SCH (08:31)
[2017-11-06] MEDS ORDERED: Mupirocin 2% Ointment 15 GM TUBE TOP SCH (10:00)
[2017-11-06 10:08] VITALS: BP 122/63; PULSE 74
--- NOTE | 2017-11-06 12:05 | PN ---
Copied To: Tia Rajan MD Attending MD: Tia Rajan MD DATE: 11/06/2017 REASON FOR THE CONSULTATION: Shortness of breath; cardiomyopathy; status post AICD placement; history of paroxysmal atrial fibrillation, status post radiofrequency ablation. SUBJECTIVE: The patient denies any chest pain, shortness of breath or any palpitation. OBJECTIVE: GENERAL: Not in any apparent distress. VITAL SIGNS: Temperature afebrile, heart rate 72, blood pressure 122/63. HEENT: PERRLA. Extraocular muscles intact. NECK: Supple. No carotid bruit. No thyromegaly. CHEST: Clear to auscultation. HEART: S1 and S2 regular. ABDOMEN: Soft. EXTREMITIES: Clubbing and cyanosis negative. LABORATORY DATA: Blood workup as follows; WBC 11.8, hemoglobin 13.1, hematocrit 39.1, platelet count 217. Chemistry shows sodium 141, potassium 3.6, chloride 103, carbon dioxide 26, anion gap of 16, BUN 24, creatinine 1. IMPRESSION: Decompensated congestive heart failure; acute on chronic systolic dysfunction; cardiomyopathy, status post cardiac catheterization x3; nonobstructive coronary artery disease; history of automatic implantable cardioverter-defibrillator placement; history of atrial fibrillation, on anticoagulation, status post radiofrequency ablation; morbid obesity; hypertension; hyperlipidemia. RECOMMENDATION: Continue anticoagulation. Goal is to keep the INR between 2 to 2.5. Continue Cardizem. Continue insulin. Continue metolazone. Continue Lasix. Discussed with the patient compliance with the medications. We will follow with you. Thank you, Dr. Villagomez for providing us the opportunity in taking care of the patient, Pete Johnson. Tia Rajan MD MTDAlbert
== END 2017-11-06 12:09 | disposition home or self-care (01) | DRG 190 ==
LOC: ED 17:53 → ERH 19:13 → 2RNO 20:45
PROVIDERS: ADMIT Internal Medicine Nephrology; ATTEND Internal Medicine Nephrology
DX: J44.1 Chronic obstructive pulmonary disease with (acute) exacerbation (principal); I50.23 Acute on chronic systolic (congestive) heart failure; Z68.41 Body mass index [BMI] 40.0-44.9, adult; I11.0 Hypertensive heart disease with heart failure; I25.5 Ischemic cardiomyopathy; I25.10 Atherosclerotic heart disease of native coronary artery without angina pectoris; I27.20 Pulmonary hypertension, unspecified; I48.0 Paroxysmal atrial fibrillation; K21.9 Gastro-esophageal reflux disease without esophagitis; L60.0 Ingrowing nail; L60.1 Onycholysis; E66.9 Obesity, unspecified; E11.51 Type 2 diabetes mellitus with diabetic peripheral angiopathy without gangrene; E78.5 Hyperlipidemia, unspecified; F31.9 Bipolar disorder, unspecified; G25.81 Restless legs syndrome; G47.30 Sleep apnea, unspecified; H91.90 Unspecified hearing loss, unspecified ear; I08.1 Rheumatic disorders of both mitral and tricuspid valves; Z79.01 Long term (current) use of anticoagulants; Z86.718 Personal history of other venous thrombosis and embolism; Z87.01 Personal history of pneumonia (recurrent); Z87.891 Personal history of nicotine dependence; Z91.19 Patient's noncompliance with other medical treatment and regimen; Z95.5 Presence of coronary angioplasty implant and graft; Z95.810 Presence of automatic (implantable) cardiac defibrillator; Z98.84 Bariatric surgery status

== ENCOUNTER 2017-11-13 19:57 | Inpatient (IN) | payer MEDICARE, OTHER ==
[2017-11-13 19:58] VITALS: PULSE 74
[2017-11-13 20:26] VITALS: BMI 41.8
[2017-11-13 21:20] LABS: VENOUS BLOOD GAS BASE EXCESS 5.9 mmol/L (0.0-2.0); VENOUS BLOOD GAS PO2 45 mm/Hg (30-55); VENOUS BLOOD PH 7.49 (7.32-7.43)
[2017-11-13 21:28] LABS: BASO # 0.06 K/mm3 (0.0-2.0); BASO % 0.5 % (0.0-3.0); EOS # 0.2 (0.0-0.7); EOS % 1.9 % (1.5-5.0); GRAN # 9.16 (1.4-6.5); GRAN % 74.3 % (50.0-68.0); HEMOGLOBIN 13.6 g/dL (14.0-18.0); INR 2.19; LYMPH # 2.1 (1.2-3.4); LYMPH % 16.7 % (22.0-35.0); MEAN CELL VOLUME 83.9 fl (80.0-105.0); MEAN CORPUSCULAR HEMOGLOBIN 28.4 pg (25.0-35.0); MEAN CORPUSCULAR HGB CONC 33.8 g/dl (31.0-37.0); MEAN PLATELET VOLUME 10.2 fl (7.0-11.0); MONO # 0.8 (0.1-0.6); MONO % 6.6 % (1.0-6.0); PROTHROMBIN TIME 25.4 SECONDS (9.4-12.5); RBC 4.79 10^6/uL (3.5-6.1); RED CELL DISTRIBUTION WIDTH 16.9 % (11.5-14.5); WHITE BLOOD COUNT 12.3 10^3/ul (4.5-11.0)
--- NOTE | 2017-11-13 21:50 | ED PDOC ---
Arrival/HPI - General Chief Complaint: Chest Pain Time Seen by Provider: 11/13/17 20:03 Historian: Patient - History of Present Illness Narrative History of Present Illness (Text): 11/13/17 20:28 57 year old male, past medical history of CHF, atrial fibrillation (on Coumadin) , peripheral edema, COPD, diabetes, and GERD, who presents to the emergency department complaining of chest pain and shortness of breath since 4 hours. Patient informs unchanged symptoms since onset presenting to the Emergency department for medical evaluation. Patient denies any fevers, chills, headache, dizziness, cough, abdominal pain, nausea, vomiting, diarrhea, back pain, neck pain, or any other complaints. PMD: Dr. Robles Time/Duration: 4-6 hours Symptom Onset: Gradual Symptom Course: Unchanged Quality: Aching Activities at Onset: Light Context: Home Past Medical History - Provider Review Nursing Documentation Reviewed: Yes - Infectious Disease Hx of Infectious Diseases: None - Tetanus Immunization Tetanus Immunization: Unknown - Cardiac Hx Cardiac Disorders: Yes (mi) Hx Cardiac Arrhythmia: Yes (afib) Hx Congestive Heart Failure: Yes Hx VT: Yes Hx Internal Defibrillator: Yes Hx Pacemaker: Yes Hx Peripheral Edema: Yes - Pulmonary Hx Respiratory Disorders: Yes Hx Bronchitis: Yes Hx Chronic Obstructive Pulmonary Disease (COPD): Yes Hx Emphysema: Yes Hx Pneumonia: Yes Hx Sleep Apnea: Yes - Neurological Hx Dizziness: Yes - HEENT Hx HEENT Disorder: Yes Other/Comment: strabismus, hard of hearing - Renal Hx Renal Disorder: No - Endocrine/Metabolic Hx Diabetes Mellitus Type 2: Yes - Hematological/Oncological Hx Blood Disorders: No - Integumentary Hx Dermatological Disorder: Yes Other/Comment: slight redness to ble and buttocks, lle wound healed, dry skin ble - Musculoskeletal/Rheumatological Hx Musculoskeletal Disorders: Yes Hx Arthritis: Yes Hx Falls: No Hx Fractures: Yes Hx Osteoarthritis: Yes - Gastrointestinal Hx Gastroesophageal Reflux: Yes Other/Comment: gastric bypass - Genitourinary/Gynecological Hx Genitourinary Disorders: No - Psychiatric Hx Anxiety: Yes Hx Bipolar Disorder: Yes Hx Depression: Yes Hx Substance Use: Yes Other/Comment: substance abuse tx,alcohol use - Past Surgical History Past Surgical History: Non-Contributing - Surgical History Hx Cardiac Catheterization: Yes Hx Coronary Stent: Yes - Anesthesia Hx Anesthesia Reactions: No Hx Malignant Hyperthermia: No - Suicidal Assessment Feels Threatened In Home Enviroment: No Family/Social History - Physician Review Nursing Documentation Reviewed: Yes Family/Social History: No Known Family HX Smoking Status: Former Smoker Hx Alcohol Use: Yes Hx Substance Use: Yes Hx Substance Use Treatment: Yes Allergies/Home Meds Allergies/Adverse Reactions: Allergies quetiapine fumarate [From Seroquel] Adverse Reaction (Verified 11/04/17 18:07) ANAPHYLAXIS wild berries Allergy (Intermediate, Uncoded 10/22/17 20:08) RASH Home Medications: Home Meds Medication Instructions Recorded Confirmed Albuterol/Ipratropium [Duoneb 3 3 ml IH PRN PRN 09/01/17 11/04/17 mg/0.5 mg (3 ml) UD] Oxycodone HCl/Acetaminophen 1 tab PO Q6 PRN 10/04/17 11/04/17 [Percocet 10-325 mg Tablet] Review of Systems - Physician Review All systems were reviewed & negative as marked: Yes - Review of Systems Constitutional: absent: Fevers Respiratory: SOB. absent: Cough Cardiovascular: Chest Pain Gastrointestinal: absent: Abdominal Pain, Diarrhea, Nausea, Vomiting Musculoskeletal: absent: Back Pain, Neck Pain Neurological: absent: Headache, Dizziness Physical Exam Vital Signs Reviewed: Yes Vital Signs Temp Pulse Resp BP Pulse Ox 11/13/17 22:35 80 17 110/71 98 11/13/17 20:37 98.3 F 76 18 102/51 L 100 11/13/17 20:25 98.3 F 76 18 102/51 L 100 Temperature: Afebrile Blood Pressure: Normal Pulse: Regular Respiratory Rate: Normal Appearance: Positive for: Well-Appearing, Non-Toxic, Comfortable Pain Distress: None Mental Status: Positive for: Alert and Oriented X 3 - Systems Exam Head: Present: Atraumatic, Normocephalic Pupils: Present: PERRL Extroacular Muscles: Present: EOMI Conjunctiva: Present: Normal Respiratory/Chest: Present: Rales (Poor air entry with minimal rales bilaterally ). No: Respiratory Distress, Accessory Muscle Use Cardiovascular: Present: Regular Rate and Rhythm, Normal S1, S2. No: Murmurs Abdomen: No: Tenderness, Distention, Peritoneal Signs Back: Present: Normal Inspection Upper Extremity: Present: Normal Inspection. No: Cyanosis, Edema Lower Extremity: Present: Normal Inspection. No: Edema Neurological: Present: GCS=15, CN II-XII Intact, Speech Normal Skin: Present: Warm, Dry, Normal Color. No: Rashes Psychiatric: Present: Alert, Oriented x 3, Normal Insight, Normal Concentration Medical Decision Making ED Course and Treatment: 11/13/17 20:28 Impression: 57 year old male presents to the Emergency department complaining of chest pain and shortness of breath. Differential Diagnosis included but are not limited to: DVT Plan: -- VBG -- EKG -- Labs -- Chest X-ray -- Morphine -- Solumedrol -- US of lower extremity -- Blood cultur -- Reassess and disposition Prior Visits: Notes and results from previous visits were reviewed. Progress Notes: 11/13/17 20:10 EKG: Ordered, reviewed, and independently interpreted the EKG. Rate : BPM Rhythm : 86 NSR Interpretation : Sinus rhythm with 1st degree AV block; RBBB 11/13/17 21:[address] Villagomez, who is aware and agrees with Emergency department management plan, agrees with admission. - Lab Interpretations Lab Results: 11/13/17 20:15 11/13/17 20:15 Lab Results 11/13/17 20:39: POC Glucose (mg/dL) 121 H 11/13/17 20:15: Sodium 139, Chloride 99, Potassium 4.2, Carbon Dioxide 28, Anion Gap 16, BUN 25 H, Creatinine 1.2, Est GFR ( Amer) > 60, Est GFR ( Non-Af Amer) > 60, Random Glucose 104, Calcium 9.1, Magnesium 2.0, Total Bilirubin 0.6, AST 32, ALT 29, Alkaline Phosphatase 66, Lactate Dehydrogenase 567, Total Creatine Kinase 164, Troponin I 0.07 D, NT-Pro-B Natriuret Pep 522 H , Total Protein 7.0, Albumin 4.2, Globulin 2.8, Albumin/Globulin Ratio 1.5 11/13/17 20:15: pO2 45, VBG pH 7.49 H, VBG pCO2 39.0 L, VBG HCO3 29.7 H, VBG Total CO2 30.9 H, VBG O2 Sat (Calc) 87.5 H, VBG Base Excess 5.9 H, VBG Potassium 3.8, Sodium 136.0, Chloride 101.0, Glucose 110, Lactate 1.5, FiO2 21.0 , Venous Blood Potassium 3.8 11/13/17 20:15: PT 25.4 H, INR 2.19, APTT 31.0 11/13/17 20:15: WBC 12.3 H, RBC 4.79, Hgb 13.6 L, Hct 40.2 L, MCV 83.9, MCH 28.4 , MCHC 33.8, RDW 16.9 H, Plt Count 201, MPV 10.2, Gran % 74.3 H, Lymph % (Auto) 16.7 L, [place] % (Auto) 6.6 H, Eos % (Auto) 1.9, Baso % (Auto) 0.5, Gran # 9.16 H , Lymph # (Auto) 2.1, [place] # (Auto) 0.8 H, Eos # (Auto) 0.2, Baso # (Auto) 0.06 - RAD Interpretation Radiology Orders: 11/13/17 20:29 CHEST PORTABLE [RAD] Stat 11/13/17 21:56 DUPLEX LOWER EXTRM VEIN RIGHT [US] Stat - EKG Interpretation Interpreted by ED Physician: Yes Type: 12 lead EKG - Medication Orders Current Medication Orders: Albuterol/Ipratropium (Duoneb 3 Mg/0.5 Mg (3 Ml) Ud) 3 ml IH Q4H PRN PRN Reason: Shortness of Breath Insulin Human Regular (Humulin R Low) 0 units SC ACHS WILTON PRN Reason: Protocol Discontinued Medications Methylprednisolone (Solu-Medrol) 125 mg IVP ONCE ONE Stop: 11/13/17 20:30 Last Admin: 11/13/17 20:38 Dose: 125 mg IVP Administration Document 11/13/17 20:38 CNR (Rec: 11/13/17 20:38 [id number] Charges for Administration # of IVP Administrations 1 Morphine Sulfate (Morphine) 2 mg IVP STAT STA Stop: 11/13/17 21:57 Last Admin: 11/13/17 22:08 Dose: 2 mg MAR Pain Assessment Document 11/13/17 22:08 CNR (Rec: 11/13/17 22:11 [id number] Pain Reassessment Is this a pain reassessment? No IVP Administration Document 11/13/17 22:08 CNR (Rec: 11/13/17 22:11 CNR [id number]) Charges for Administration # of IVP Administrations 1 - Scribe Statement The provider has reviewed the documentation as recorded by the Scribe Dominick Nguyen. All medical record entries made by the Scribe were at my direction and personally dictated by me. I have reviewed the chart and agree that the record accurately reflects my personal performance of the history, physical exam, medical decision making, and the department course for this patient. I have also personally directed, reviewed, and agree with the discharge instructions and disposition. Disposition/Present on Arrival - Present on Arrival Any Indicators Present on Arrival: No History of DVT/PE: No History of Uncontrolled Diabetes: Yes Urinary Catheter: No History of Decub. Ulcer: No History Surgical Site Infection Following: None - Disposition Have Diagnosis and Disposition been Completed?: Yes Diagnosis: Chest pain, rule out acute myocardial infarction, COPD (chronic obstructive pulmonary disease), Congestive heart failure (CHF) Disposition: HOSPITALIZED Disposition Time: 21:00 Condition: FAIR
[2017-11-13 21:52] LABS: B-TYPE NATRIURETIC PEPTIDE 522 pg/mL (0-450); TROPONIN I 0.07 ng/mL
[2017-11-13] MEDS ORDERED: Morphine 2 mg/ml ISec IVP STA (21:56)
[2017-11-13 21:57] LABS: ALB/GLOB RATIO 1.5 (1.1-1.8); ALBUMIN 4.2 g/dL (3.0-4.8); ALT/SGPT 29 U/L (7-56); AST/SGOT 32 U/L (17-59); BLOOD UREA NITROGEN 25 mg/dL (7-21); CALCIUM 9.1 mg/dL (8.4-10.5); GFR NON-AFRICAN AMERICAN > 60
[2017-11-13] MEDS ORDERED: Albuterol-Ipratrop 3 mg / 0.5 (3 ml) UD IH PRN (22:56)
[2017-11-14] MEDS ORDERED: Oxycodone/Acetaminophen 10/325 mg Tab PO PRN (06:12)
[2017-11-14] MEDS ORDERED: Insulin Reg-LOW-Coverage SC SCH (07:30)
[2017-11-14 08:54] LABS: HEMOGLOBIN 13.9 g/dL (14.0-18.0); MEAN CELL VOLUME 83.8 fl (80.0-105.0); MEAN CORPUSCULAR HEMOGLOBIN 28.2 pg (25.0-35.0); MEAN CORPUSCULAR HGB CONC 33.7 g/dl (31.0-37.0); MEAN PLATELET VOLUME 9.7 fl (7.0-11.0); RBC 4.93 10^6/uL (3.5-6.1); RED CELL DISTRIBUTION WIDTH 16.6 % (11.5-14.5); WHITE BLOOD COUNT 12.7 10^3/ul (4.5-11.0)
[2017-11-14] MEDS: Insulin Reg-MEDIUM-Coverage SC SCH ×4 (09:05→22:00)
[2017-11-14] MEDS ORDERED: metOLazone 5 MG TAB PO SCH (10:00)
--- NOTE | 2017-11-14 10:05 | RAD ---
Date of service: 11/13/2017 HISTORY: sob COMPARISON: 11/04/2017 FINDINGS: LUNGS: No active pulmonary disease. PLEURA: No significant pleural effusion identified, no pneumothorax apparent. CARDIOVASCULAR: Moderate cardiomegaly. Pacemaker OSSEOUS STRUCTURES: No significant abnormalities. VISUALIZED UPPER ABDOMEN: Normal. OTHER FINDINGS: None. IMPRESSION: No active disease.
--- NOTE | 2017-11-14 10:57 | CP.PCM.HP ---
<Adalberto Loredo - Last Filed: 11/14/17 10:51> History of Present Illness - History of Present Illness History of Present Illness: History and Physical for Dr. Villagomez 57 year old male with past medical history of systolic CHF, DM type 2, COPD, A- fib on coumadin, PAD, Pacemaker/defibrillator, restless leg syndrome, and morbid obesity presented to the hospital for several hours of shortness of breath. Patient states the symptoms were sudden in duration. Patient also admitted to mild chest pain that radiated to the left shoulder. On interview this morning, patient states shortness of breath has almost resolved and chest pain is no longer there. Patient admits to pain in his legs. Denies chest pain, shortness of breath, nausea, vomiting, diarrhea, fever, chills, numbness, hematuria, numbness, weakness. PMH: As above Surgical Hx: Gastric bypass, left leg thrombectomy Family Hx: Noncontributory Social Hx: Former smoker, denies alcohol or illicit drug use Allergies: Seroquel and berries Medications: Reviewed, As per MAR Present on Admission - Present on Admission Any Indicators Present on Admission: No Review of Systems - Review of Systems Review of Systems: 12 point ROS as per HPI, otherwise negative Past Patient History - Infectious Disease Hx of Infectious Diseases: None - Tetanus Immunizations Tetanus Immunization: Unknown - Past Medical History & Family History Past Medical History?: Yes - Past Social History Smoking Status: Never Smoked - CARDIAC Hx Cardiac Disorders: Yes Hx Cardia Arrhythmia: Yes (A-Fib) Hx Congestive Heart Failure: Yes Hx Internal Defibrillator: Yes Hx Peripheral Edema: Yes - PULMONARY Hx Bronchitis: Yes Hx Chronic Obstructive Pulmonary Disease (COPD): Yes Hx Emphysema: Yes Hx Pneumonia: Yes Hx Sleep Apnea: Yes - NEUROLOGICAL Hx Dizziness: Yes - HEENT Hx HEENT Problems: Yes - RENAL Hx Chronic Kidney Disease: No - ENDOCRINE/METABOLIC Hx Diabetes Mellitus Type 2: Yes - HEMATOLOGICAL/ONCOLOGICAL Hx Blood Disorders: No - INTEGUMENTARY Hx Dermatological Problems: Yes Other/Comment: slight redness to ble and buttocks, lle wound healed, dry skin ble - MUSCULOSKELETAL/RHEUMATOLOGICAL Hx Musculoskeletal Disorders: No Hx Falls: No - GASTROINTESTINAL Hx Gastroesophageal Reflux: Yes Other/Comment: gastric bypass sx - GENITOURINARY/GYNECOLOGICAL Hx Genitourinary Disorders: No - PSYCHIATRIC Hx Anxiety: Yes Hx Depression: Yes - SURGICAL HISTORY Hx Surgeries: Yes Hx Cardiac Catheterization: Yes Hx Coronary Stent: Yes Hx Gastric Bypass Surgery: Yes - ANESTHESIA Hx Anesthesia Reactions: No Hx Malignant Hyperthermia: No Meds Allergies/Adverse Reactions: Allergies Allergy/AdvReac Type Severity Reaction Status Date / Time quetiapine fumarate AdvReac ANAPHYLAXIS Verified 11/04/17 18:07 [From Seroquel] wild berries Allergy Intermediate RASH Uncoded 10/22/17 20:08 Physical Exam - Constitutional Appears: Non-toxic, No Acute Distress - Head Exam Head Exam: ATRAUMATIC, NORMAL INSPECTION, NORMOCEPHALIC - Eye Exam Eye Exam: EOMI, Normal appearance - ENT Exam ENT Exam: Mucous Membranes Moist, Normal Exam - Respiratory Exam Respiratory Exam: Clear to Auscultation Bilateral, NORMAL BREATHING PATTERN. absent: Rales, Rhonchi, Wheezes - Cardiovascular Exam Cardiovascular Exam: RRR, +S1, +S2 - GI/Abdominal Exam GI & Abdominal Exam: Normal Bowel Sounds, Soft. absent: Tenderness - Extremities Exam Additional comments: +1 pedal edema b/l - Neurological Exam Neurological exam: Alert, CN II-XII Intact, Oriented x3 - Psychiatric Exam Psychiatric exam: Normal Affect, Normal Mood - Skin Skin Exam: Intact, Normal Color, Warm Results - Vital Signs Recent Vital Signs: Last Vital Signs Temp 97.9 F 11/14/17 06:00 Pulse 78 11/14/17 06:00 Resp 20 11/14/17 06:00 BP 105/66 11/14/17 10:30 Pulse Ox 96 11/14/17 06:00 - Labs Result Diagrams: 11/14/17 08:30 11/13/17 20:15 Labs: Laboratory Results - last 24 hr 11/14/17 08:30 WBC 12.7 H RBC 4.93 Hgb 13.9 L Hct 41.3 L MCV 83.8 MCH 28.2 MCHC 33.7 RDW 16.6 H Plt Count 176 MPV 9.7 Assessment & Plan - Assessment and Plan (Free Text) Plan: 1. Systolic CHF 2. COPD 3. DM type 2 4. A-fib 5. Restless leg syndrome 6. Morbid obesity Patient underwent lower extremity ultrasound which was negative for DVT. Patient will be continued on current medication, in addition patient will be placed on Lasix 40 mg IV TID as per cardiology. Patient will continue coumadin for a-fib. EKG reviewed, demonstrates AV block, with no A-fib. Will await any further recommendations as per cardiology. Will continue to monitor patient closely. Will discontinue telemetry. Facundo, PGY-3 <Axel Villagomez S - Last Filed: 11/14/17 20:05> Results - Vital Signs Recent Vital Signs: Last Vital Signs Temp 97.9 F 11/14/17 14:00 Pulse 98 H 11/14/17 19:55 Resp 18 11/14/17 14:00 BP 131/72 11/14/17 17:19 Pulse Ox 93 L 11/14/17 14:00 - Labs Result Diagrams: 11/14/17 08:30 11/13/17 20:15 Labs: Laboratory Results - last 24 hr 11/14/17 08:30 WBC 12.7 H RBC 4.93 Hgb 13.9 L Hct 41.3 L MCV 83.8 MCH 28.2 MCHC 33.7 RDW 16.6 H Plt Count 176 MPV 9.7 Assessment & Plan - Assessment and Plan (Free Text) Plan: Pt seen and examined. I have reviewed the note of the medical receptionist medical assistant and agree with it. I have discussed the assessment and plan with the resident. I have reviewed the patient's labs and medications. Pt with CHF due to systolic dysfunction. He will be placed on IV lasix. Pt will be on ISS for DM-2. He was seen by Dr Rajan and I did speak to pt.
--- NOTE | 2017-11-14 11:07 | CARD ---
APPROVED REPORT Date of service: 11/13/2017 EKG Measurement Heart [id number] <Conclusion> 100 % VPayam Hart
--- NOTE | 2017-11-14 13:14 | US ---
PROCEDURE: Right lower extremity venous US HISTORY: Leg pain and swelling. Evaluate for DVT. PHYSICIAN(S): John Paul Cannon M.D. TECHNIQUE: Duplex sonography and color-flow Doppler with graded compression were used to evaluate the deep venous system of the right lower extremity. The exam is limited by body habitus and edema FINDINGS: The visualized deep venous system of the right lower extremity is sonographically normal and compressible. Normal waveforms and augmentation are seen. There is no sonographic evidence for deep venous thrombosis in the visualized segments of the right lower extremity. IMPRESSION: 1. No sonographic evidence for deep venous thrombosis in the visualized segments of the right lower extremity. 2. Limited study.
--- NOTE | 2017-11-14 20:22 | CON ---
Copied To: Tia Rajan MD Attending MD: Tia Rajan MD DATE: 11/14/2017 REASON FOR CONSULTATION: Followup chest pain underneath the pacemaker going to the left arm. BRIEF CLINICAL HISTORY: This is a 57-year-old male with past medical history significant for nonischemic cardiomyopathy, atrial fibrillation, on Coumadin, peripheral arterial disease, COPD, morbid obesity, came in with complaint of feeling chest pain underneath the pacemaker and going to the left arm. Denies any shortness of breath. Denies any palpitation. Denies any fever, cough, or chills. PAST MEDICAL HISTORY: Significant for nonischemic cardiomyopathy, history of cardiac catheterization x3, nonobstructive coronary artery disease, morbid obesity, COPD, bipolar, depression, anxiety disorder, diabetes, hypertension, hyperlipidemia, history of AICD placement, history of paroxysmal atrial fibrillation, status post radiofrequency ablation. PAST SURGICAL HISTORY: History significant for gastric bypass, status post AICD placement, history of thrombectomy from the left lower extremity, history of PTCA of left SFA and popliteal trunk, history of DVT, history of catheter-based treatment for right DVT, history of cardiac catheterization, history of AICD, history of radiofrequency ablation, history of recent cardiac workup as above, history of last echo dated 05/31/2017 shows ejection fraction 35%, mild mitral regurgitation, mild tricuspid regurgitation. SOCIAL HISTORY: Denies any smoking. Denies any history of alcohol abuse. CURRENT MEDICATIONS: The patient is taking at home trazodone, Risperdal, metolazone, Cardizem, warfarin, Singulair, gabapentin, Lasix, cilostazol. REVIEW OF SYSTEMS: As per HPI. PHYSICAL EXAMINATION: VITAL SIGNS: As follows: Temperature afebrile, heart rate 78, blood pressure 105/66. HEENT: PERRLA. Extraocular muscles intact. NECK: Supple. No carotid bruits or thyromegaly. CHEST: Clear to auscultation. HEART: S1 and S2 regular. ABDOMEN: Soft. EXTREMITIES: Clubbing and cyanosis negative. LABORATORY DATA: Blood workup as follows: WBC , hemoglobin 13.9, hematocrit 41.3, platelet count 176. Chemistry shows sodium 139, potassium 4.2, chloride 99, carbon dioxide 28, anion gap of 16, BUN 25, creatinine 1.2. BNP 522. IMPRESSION: Atypical chest pain, history of morbid obesity, diabetes, hypertension, hyperlipidemia, history of peripheral arterial disease, history of nonobstructive coronary artery disease, history of paroxysmal atrial fibrillation, history of radiofrequency ablation, history of implantable cardioverter-defibrillator placement. RECOMMENDATIONS: Resume back Coumadin, resume back Cardizem, give IV Lasix for today and follow up lab in the morning. We will follow with you. We will give Lasix IV today 40 t.i.d. We will repeat lab in the morning. Thank you, Dr. Villagomez, for providing us the opportunity in taking care of the patient, Pete Johnson. Tia Rajan MD
[2017-11-15 07:21] LABS: BASO # 0.03 K/mm3 (0.0-2.0); BASO % 0.2 % (0.0-3.0); EOS # 0.1 (0.0-0.7); EOS % 0.4 % (1.5-5.0); GRAN # 11.53 (1.4-6.5); GRAN % 82.9 % (50.0-68.0); HEMOGLOBIN 13.1 g/dL (14.0-18.0); LYMPH # 1.4 (1.2-3.4); MEAN CELL VOLUME 83.3 fl (80.0-105.0); MEAN CORPUSCULAR HEMOGLOBIN 27.7 pg (25.0-35.0); MEAN CORPUSCULAR HGB CONC 33.2 g/dl (31.0-37.0); MEAN PLATELET VOLUME 10.1 fl (7.0-11.0); MONO # 0.9 (0.1-0.6); MONO % 6.5 % (1.0-6.0); RBC 4.73 10^6/uL (3.5-6.1); RED CELL DISTRIBUTION WIDTH 16.7 % (11.5-14.5); WHITE BLOOD COUNT 13.9 10^3/ul (4.5-11.0)
[2017-11-15 07:24] LABS: INR 1.64
--- NOTE | 2017-11-15 07:48 | CP.PCM.PN ---
Subjective - Date & Time of Evaluation Date of Evaluation: 11/15/17 Time of Evaluation: 06:15 - Subjective Subjective: Awake, Out of bed to chair, denies chest pain,denies shortness of breath Reason for consultation and follow up: Cardiac evaluation of chest pain and shortness of breath, history of systolic congestive heart failure,COPD,Atrial fibrillation on Coumadin.Hypertension,hyperlipidemia Seen and examined by me and Dr. Rajan Objective - Vital Signs/Intake and Output Vital Signs (last 24 hours): Temp Pulse Resp BP Pulse Ox 97.9 F 78 20 97/60 L 96 11/14/17 22:00 11/14/17 22:00 11/14/17 22:00 11/14/17 22:00 11/14/17 22:00 Intake and Output: 11/15/17 11/15/17 06:59 18:59 Intake Total 180 Balance 180 - Medications Medications: Current Medications Albuterol/Ipratropium (Duoneb 3 Mg/0.5 Mg (3 Ml) Ud) 3 ml IH Q4H PRN PRN Reason: Shortness of Breath Last Admin: 11/14/17 19:55 Dose: 3 ml Diltiazem HCl (Cardizem) 30 mg PO BID [facility] Last Admin: 11/14/17 17:19 Dose: 30 mg Furosemide (Lasix) 80 mg PO BID [facility] Insulin Human Regular (Humulin R Med) 0 units SC ACHS [facility] PRN Reason: Protocol Last Admin: 11/14/17 22:00 Dose: Not Given Lisinopril (Zestril) 2.5 mg PO DAILY [facility] Last Admin: 11/14/17 10:31 Dose: 2.5 mg Lorazepam (Ativan) 1 mg PO BID PRN; Protocol PRN Reason: Anxiety Last Admin: 11/14/17 21:31 Dose: 1 mg Metolazone (Zaroxolyn) 5 mg PO MWF [facility] Last Admin: 11/14/17 10:31 Dose: 5 mg Montelukast Sodium (Singulair) 10 mg PO HS [facility] Last Admin: 11/14/17 21:21 Dose: 10 mg Oxycodone/Acetaminophen (Percocet 10/325 Mg Tab) 1 tab PO Q6 PRN PRN Reason: Pain, severe (8-10) Last Admin: 11/14/17 15:33 Dose: 1 tab Ropinirole HCl (Requip) 0.5 mg PO HS [facility] Last Admin: 11/14/17 21:21 Dose: 0.5 mg Trazodone HCl (Desyrel) 150 mg PO HS [facility] Last Admin: 11/14/17 21:21 Dose: 150 mg Warfarin Sodium (Coumadin) 5 mg PO HS [facility] PRN Reason: Protocol Last Admin: 11/14/17 21:20 Dose: 5 mg Warfarin Sodium (Coumadin) 2 mg PO HS [facility] PRN Reason: Protocol Last Admin: 11/14/17 21:20 Dose: 2 mg - Labs Labs: 11/15/17 06:30 PT 19.0 SECONDS (9.4-12.5) H 11/15/17 06:30 INR 1.64 11/15/17 06:30 APTT 31.0 Seconds (25.1-36.5) 11/13/17 20:15 - Constitutional Appears: No Acute Distress - Head Exam Head Exam: NORMOCEPHALIC - Eye Exam Eye Exam: Normal appearance - ENT Exam ENT Exam: Mucous Membranes Moist - Respiratory Exam Respiratory Exam: Decreased Breath Sounds, NORMAL BREATHING PATTERN - Cardiovascular Exam Cardiovascular Exam: +S1, +S2 Additional comments: AICD/PPM - GI/Abdominal Exam GI & Abdominal Exam: Soft, Normal Bowel Sounds - Extremities Exam Additional comments: 1-2+edema - Neurological Exam Neurological Exam: Alert, Awake, Oriented x3 - Psychiatric Exam Psychiatric exam: Normal Affect - Skin Skin Exam: Dry, Warm Assessment and Plan - Assessment and Plan (Free Text) Assessment: A 57 year old male morbidly obese, who came in to the ER due to chest pain and shortness of breath. History of systolic congestive heart failure,COPD,Atrial fibrillation, post ablation, on Coumadin, diabetes mellitus type 2, peripheral vascular disease, post left leg thrombectomy,restless leg syndrome, gastric bypass, former smoker, non ischemic cardiomyopathy, non obstructive coronary artery disease,bipolar,depression,anxiety disorder,hypertension, hyperlipidemia , Atypical chest pain. symptoms resolved. Plan: Atypical chest pain Denies chest pain and shortness of breath now Symptoms resolved, wanted to go home Heart rate and blood pressure controlled Continue current medications Continue current treatment Possible discharge Will follow up Plan and treatment discussed with Dr. Rajan
[2017-11-15 07:51] VITALS: BP 103/68; PULSE 98; RESP 18; TEMP 97.8; O2SAT 99
[2017-11-15 07:56] LABS: BLOOD UREA NITROGEN 37 mg/dL (7-21); GFR NON-AFRICAN AMERICAN 57
[2017-11-15 07:57] LABS: ALB/GLOB RATIO 1.5 (1.1-1.8); ALBUMIN 3.9 g/dL (3.0-4.8); ALT/SGPT 29 U/L (7-56); AST/SGOT 20 U/L (17-59); CALCIUM 8.9 mg/dL (8.4-10.5)
[2017-11-15] MEDS: Insulin Reg-MEDIUM-Coverage SC SCH (08:40)
--- NOTE | 2017-11-15 09:38 | CP.PCM.DIS ---
Provider - Provider Date of Admission: 11/13/17 22:17 Attending physician: Axel Villagomez MD Primary care physician: Axel Villagomez MD Consults: Cardio - Dr. Rajan Time Spent in preparation of Discharge (in minutes): 45 Diagnosis - Discharge Diagnosis (1) COPD (chronic obstructive pulmonary disease) Status: Chronic (2) Congestive heart failure (CHF) Status: Chronic (3) Atrial fibrillation Status: Chronic (4) Bipolar 2 disorder, major depressive episode Status: Chronic (5) Diabetes Status: Chronic (6) Dyspnea Status: Resolved Hospital Course - Lab Results Lab Results: Most Recent Lab Values WBC 13.9 10^3/ul (4.5-11.0) H 11/15/17 06:30 RBC 4.73 10^6/uL (3.5-6.1) 11/15/17 06:30 Hgb 13.1 g/dL (14.0-18.0) L 11/15/17 06:30 Hct 39.4 % (42.0-52.0) L 11/15/17 06:30 MCV 83.3 fl (80.0-105.0) 11/15/17 06:30 MCH 27.7 pg (25.0-35.0) 11/15/17 06:30 MCHC 33.2 g/dl (31.0-37.0) 11/15/17 06:30 RDW 16.7 % (11.5-14.5) H 11/15/17 06:30 Plt Count 193 10^3/uL (120.0-450.0) 11/15/17 06:30 MPV 10.1 fl (7.0-11.0) 11/15/17 06:30 Gran % 82.9 % (50.0-68.0) H 11/15/17 06:30 Lymph % (Auto) 10.0 % (22.0-35.0) L 11/15/17 06:30 Grainger % (Auto) 6.5 % (1.0-6.0) H 11/15/17 06:30 Eos % (Auto) 0.4 % (1.5-5.0) L 11/15/17 06:30 Baso % (Auto) 0.2 % (0.0-3.0) 11/15/17 06:30 Gran # 11.53 (1.4-6.5) H 11/15/17 06:30 Lymph # (Auto) 1.4 (1.2-3.4) 11/15/17 06:30 Grainger # (Auto) 0.9 (0.1-0.6) H 11/15/17 06:30 Eos # (Auto) 0.1 (0.0-0.7) 11/15/17 06:30 Baso # (Auto) 0.03 K/mm3 (0.0-2.0) 11/15/17 06:30 PT 19.0 SECONDS (9.4-12.5) H 11/15/17 06:30 INR 1.64 11/15/17 06:30 APTT 31.0 Seconds (25.1-36.5) 11/13/17 20:15 pO2 45 mm/Hg (30-55) 11/13/17 20:15 VBG pH 7.49 (7.32-7.43) H 11/13/17 20:15 VBG pCO2 39.0 (40-60) L 11/13/17 20:15 VBG HCO3 29.7 mmol/l (21-28) H 11/13/17 20:15 VBG Total CO2 30.9 mmol.L (22-28) H 11/13/17 20:15 VBG O2 Sat (Calc) 87.5 % (40-65) H 11/13/17 20:15 VBG Base Excess 5.9 mmol/L (0.0-2.0) H 11/13/17 20:15 VBG Potassium 3.8 mmol/L (3.6-5.2) 11/13/17 20:15 Sodium 136.0 mmol/L (132-148) 11/13/17 20:15 Chloride 101.0 mmol/L (98-107) 11/13/17 20:15 Glucose 110 mg/dl (75-110) 11/13/17 20:15 Lactate 1.5 mmol/L (0.7-2.1) 11/13/17 20:15 FiO2 21.0 % 11/13/17 20:15 Sodium 135 mmol/L (132-148) 11/15/17 06:30 Potassium 4.1 mmol/L (3.6-5.0) 11/15/17 06:30 Chloride 92 mmol/L (98-107) L 11/15/17 06:30 Carbon Dioxide 31 mmol/L (21-33) 11/15/17 06:30 Anion Gap 16 (10-20) 11/15/17 06:30 BUN 37 mg/dL (7-21) H 11/15/17 06:30 Creatinine 1.3 mg/dl (0.8-1.5) 11/15/17 06:30 Est GFR ( Amer) > 60 11/15/17 06:30 Est GFR (Non-Af Amer) 57 11/15/17 06:30 POC Glucose (mg/dL) 258 mg/dL (65-110) H 11/15/17 06:40 Random Glucose 244 mg/dL (70-110) H 11/15/17 06:30 Calcium 8.9 mg/dL (8.4-10.5) 11/15/17 06:30 Phosphorus 4.3 mg/dL (2.5-4.5) 11/15/17 06:30 Magnesium 2.2 mg/dL (1.7-2.2) 11/15/17 06:30 Total Bilirubin 0.5 mg/dL (0.2-1.3) 11/15/17 06:30 AST 20 U/L (17-59) 11/15/17 06:30 ALT 29 U/L (7-56) 11/15/17 06:30 Alkaline Phosphatase 62 U/L (38-126) 11/15/17 06:30 Lactate Dehydrogenase 567 U/L (333-699) 11/13/17 20:15 Total Creatine Kinase 164 U/L (35-230) 11/13/17 20:15 Troponin I 0.07 ng/mL D 11/13/17 20:15 NT-Pro-B Natriuret Pep 522 pg/mL (0-450) H 11/13/17 20:15 Total Protein 6.5 g/dL (5.8-8.3) 11/15/17 06:30 Albumin 3.9 g/dL (3.0-4.8) 11/15/17 06:30 Globulin 2.7 gm/dL 11/15/17 06:30 Albumin/Globulin Ratio 1.5 (1.1-1.8) 11/15/17 06:30 Venous Blood Potassium 3.8 mmol/L (3.6-5.2) 11/13/17 20:15 - Hospital Course Hospital Course: 57 year old male with past medical history of systolic CHF, DM type 2, COPD, A- fib on coumadin, PAD, Pacemaker/defibrillator, restless leg syndrome, and morbid obesity initially presented for shortness of breath. Patient received lower extremity US which was negative for DVT. Patient evaluated by Dr. Rajan who placed patient on Lasix 40 mg IV TID. Patient respiratory status improved. Patient denied chest pain or dizziness. Patient left AMA after risks of leaving were discussed with patient. Patient verbalized understanding. Discharge Exam - Head Exam Head Exam: ATRAUMATIC, NORMAL INSPECTION, NORMOCEPHALIC - Eye Exam Eye Exam: EOMI, Normal appearance - ENT Exam ENT Exam: Mucous Membranes Dry - Respiratory Exam Respiratory Exam: Clear to PA & Lateral, NORMAL BREATHING PATTERN, UNREMARKABLE. absent: Rales, Rhonchi, Wheezes, Respiratory Distress - Cardiovascular Exam Cardiovascular Exam: RRR, +S1, +S2 - GI/Abdominal Exam GI & Abdominal Exam: Normal Bowel Sounds, Soft, Unremarkable. absent: Tenderness - Extremities Exam Extremities exam: normal inspection - Neurological Exam Neurological exam: Alert, CN II-XII Intact, Oriented x3 - Psychiatric Exam Psychiatric exam: Normal Affect, Normal Mood - Skin Skin Exam: Intact, Normal Color, Warm Discharge Plan - Follow Up Plan Condition: FAIR Disposition: HOME/ ROUTINE Instructions: Type 2 Diabetes, Heart Healthy Diet, Exacerbation of COPD (DC) Referrals: Axel Villagomez MD [Primary Care Provider] -
== END 2017-11-15 11:29 | disposition left against medical advice (07) | DRG 313 ==
LOC: ED 19:57 → ERH 22:17 → 2RNO 11-14 00:08 → 5RSO 11-14 14:11
PROVIDERS: ADMIT Internal Medicine Nephrology; ATTEND Internal Medicine Nephrology
PROC: 3E0F7GC Introduction of Other Therapeutic Substance into Respiratory Tract, Via Natural or Artificial Opening (ICD-10-PCS; principal; 2017-11-14)
DX: R07.89 Other chest pain (principal); F31.81 Bipolar II disorder; I42.9 Cardiomyopathy, unspecified; I50.22 Chronic systolic (congestive) heart failure; Z68.41 Body mass index [BMI] 40.0-44.9, adult; K21.9 Gastro-esophageal reflux disease without esophagitis; J44.9 Chronic obstructive pulmonary disease, unspecified; G25.81 Restless legs syndrome; E66.01 Morbid (severe) obesity due to excess calories; E11.51 Type 2 diabetes mellitus with diabetic peripheral angiopathy without gangrene; I08.1 Rheumatic disorders of both mitral and tricuspid valves; I48.0 Paroxysmal atrial fibrillation; I11.0 Hypertensive heart disease with heart failure; I25.10 Atherosclerotic heart disease of native coronary artery without angina pectoris; E78.5 Hyperlipidemia, unspecified; Z79.01 Long term (current) use of anticoagulants; Z95.810 Presence of automatic (implantable) cardiac defibrillator; Z95.5 Presence of coronary angioplasty implant and graft; Z87.891 Personal history of nicotine dependence; Z98.84 Bariatric surgery status

== ENCOUNTER 2018-01-16 14:41 | Observation (INO) | payer MEDICARE, OTHER ==
[2018-01-16 14:42] VITALS: PULSE 74
[2018-01-16 14:47] VITALS: BMI 41.0
[2018-01-16] MEDS: Albuterol-Ipratrop 3 mg / 0.5 (3 ml) UD IH SCH ×3 (15:37→16:11)
--- NOTE | 2018-01-16 15:42 | RAD ---
Date of service: 01/16/2018 HISTORY: SOB COMPARISON: 12/05/2017 FINDINGS: LUNGS: No active pulmonary disease. PLEURA: No significant pleural effusion identified, no pneumothorax apparent. CARDIOVASCULAR: No atherosclerotic calcification present Cardiomegaly. No evidence of acute, significant cardiovascular disease. Position/ configuration of pacemaker Satisfactory. OSSEOUS STRUCTURES: No significant abnormalities. VISUALIZED UPPER ABDOMEN: Normal. OTHER FINDINGS: None. IMPRESSION: No active disease. No significant interval change compared to the prior examination(s).
[2018-01-16 16:20] LABS: BASO # 0.05 K/mm3 (0.0-2.0); BASO % 0.4 % (0.0-3.0); EOS # 0.1 (0.0-0.7); EOS % 1.1 % (1.5-5.0); GRAN # 8.87 (1.4-6.5); GRAN % 77.6 % (50.0-68.0); HEMOGLOBIN 14.5 g/dL (14.0-18.0); LYMPH # 1.6 (1.2-3.4); LYMPH % 14.1 % (22.0-35.0); MEAN CELL VOLUME 86.8 fl (80.0-105.0); MEAN CORPUSCULAR HEMOGLOBIN 29.4 pg (25.0-35.0); MEAN CORPUSCULAR HGB CONC 33.9 g/dl (31.0-37.0); MONO # 0.8 (0.1-0.6); MONO % 6.8 % (1.0-6.0); RBC 4.93 10^6/uL (3.5-6.1); RED CELL DISTRIBUTION WIDTH 16.4 % (11.5-14.5); WHITE BLOOD COUNT 11.4 10^3/uL (4.5-11.0)
[2018-01-16 16:29] LABS: INR 2.08; PARTIAL THROMBOPLASTIN TIME 30.5 Seconds (25.1-36.5); PROTHROMBIN TIME 24.1 SECONDS (9.4-12.5)
[2018-01-16 16:31] LABS: ALB/GLOB RATIO 1.4 (1.1-1.8); ALT/SGPT 32 U/L (7-56); AST/SGOT 27 U/L (17-59); BLOOD UREA NITROGEN 19 mg/dL (7-21); CALCIUM 9.5 mg/dL (8.4-10.5); GFR NON-AFRICAN AMERICAN > 60
[2018-01-16 16:42] LABS: B-TYPE NATRIURETIC PEPTIDE 959 pg/mL (0-450); TROPONIN I 0.06 ng/mL
--- NOTE | 2018-01-16 16:54 | ED PDOC ---
Arrival/HPI - General Chief Complaint: Cough, Cold, Congestion Time Seen by Provider: 01/16/18 15:03 - History of Present Illness Narrative History of Present Illness (Text): 01/16/18 19:46 57 year old male with PMH of CHF, atrial fibrillation (on Coumadin), COPD, CAD s/p 2 stents, diabetes, and GERD, who presents to the ED c/o shortness of breath x 2 days. SOB is worse with lying flat and with associated cough productive of thick white sputum. He also complains of a constant, mid-sternal, burning chest pain. Patient has been to the ED multiple times this year for similar complaints. Compliant with all medications. Denies fevers, chills, hemoptysis, headache, vision changes, diaphoresis, arm pain, jaw pain, neck pain, back pain, abdominal pain, N/V/D, urinary symptoms. Past Medical History - Provider Review Nursing Documentation Reviewed: Yes - Infectious Disease Hx of Infectious Diseases: None - Tetanus Immunization Tetanus Immunization: Unknown - Cardiac Hx Cardiac Disorders: Yes Hx Cardiac Arrhythmia: Yes Hx Circulatory Problems: Yes Hx Congestive Heart Failure: Yes Hx Hypertension: Yes Hx Internal Defibrillator: Yes Hx Pacemaker: Yes Hx Peripheral Edema: Yes Hx Peripheral Vascular Disease: Yes - Pulmonary Hx Respiratory Disorders: Yes Hx Bronchitis: Yes Hx Chronic Obstructive Pulmonary Disease (COPD): Yes Hx Emphysema: Yes Hx Pneumonia: Yes Hx Respiratory Tract Infection: Yes - Neurological Hx Neurological Disorder: Yes Hx Dizziness: Yes - HEENT Hx HEENT Disorder: Yes Hx Blind: (HX of eye surgery) - Renal Hx Renal Disorder: No - Endocrine/Metabolic Hx Adrenal Cancer: Yes Hx Diabetes Mellitus Type 2: Yes - Hematological/Oncological Hx Blood Disorders: No - Integumentary Hx Dermatological Disorder: No - Musculoskeletal/Rheumatological Hx Musculoskeletal Disorders: Yes Hx Arthritis: Yes Hx Falls: No Hx Fractures: Yes Hx Osteoarthritis: Yes - Gastrointestinal Hx Gastrointestinal Disorders: Yes (gastric bypass surgery) Hx Gastroesophageal Reflux: Yes - Genitourinary/Gynecological Hx Genitourinary Disorders: Yes - Psychiatric Hx Psychophysiologic Disorder: Yes Hx Anxiety: Yes Hx Bipolar Disorder: Yes Hx Depression: Yes Hx Substance Use: No - Past Surgical History Past Surgical History: Non-Contributing - Surgical History Hx Cardiac Catheterization: Yes Hx Coronary Stent: Yes Hx Gastric Bypass Surgery: Yes - Anesthesia Hx Anesthesia Reactions: No Hx Malignant Hyperthermia: No - Suicidal Assessment Feels Threatened In Home Enviroment: No Family/Social History - Physician Review Nursing Documentation Reviewed: Yes Family/Social History: No Known Family HX Smoking Status: Former Smoker Hx Alcohol Use: Yes Hx Substance Use: No Hx Substance Use Treatment: No Allergies/Home Meds Allergies/Adverse Reactions: Allergies quetiapine fumarate [From Seroquel] Adverse Reaction (Verified 11/04/17 18:07) ANAPHYLAXIS wild berries Allergy (Intermediate, Uncoded 10/22/17 20:08) RASH Home Medications: Home Meds Medication Instructions Recorded Confirmed Albuterol/Ipratropium [Duoneb 3 3 ml IH PRN PRN 09/01/17 12/03/17 mg/0.5 mg (3 ml) UD] Oxycodone HCl/Acetaminophen 1 tab PO Q6 PRN 10/04/17 12/03/17 [Percocet 10-325 mg Tablet] Review of Systems - Physician Review All systems were reviewed & negative as marked: Yes - Review of Systems Constitutional: Normal. absent: Fevers Eyes: Normal. absent: Vision Changes ENT: Normal. absent: Hearing Changes, Tinnitus, Sore Throat, Rhinorrhea, Epistaxis, Sinus Congestion Respiratory: SOB, Cough, Sputum. absent: Wheezing Cardiovascular: Chest Pain. absent: Palpitations, Syncope Gastrointestinal: Normal. absent: Abdominal Pain, Stool Changes, Nausea, Vomiting, Appetite Changes Genitourinary Male: Normal. absent: Dysuria, Frequency Musculoskeletal: Normal. absent: Arthralgias, Back Pain Skin: Normal. absent: Rash, Cellulitis Neurological: Normal. absent: Headache, Dizziness, Focal Weakness, Gait Changes, Speech Changes Endocrine: Normal Hemo/Lymphatic: Normal. absent: Adenopathy Psychiatric: Normal Physical Exam Vital Signs Reviewed: Yes Vital Signs Temp Pulse Resp BP Pulse Ox 01/16/18 14:56 17 95 01/16/18 14:46 97.7 F 93 H 20 167/76 H 96 Temperature: Afebrile Blood Pressure: Normal Pulse: Regular Respiratory Rate: Normal Appearance: Positive for: Well-Appearing, Non-Toxic, Comfortable Pain Distress: None Mental Status: Positive for: Alert and Oriented X 3 - Systems Exam Head: Present: Atraumatic, Normocephalic Pupils: Present: PERRL Extroacular Muscles: Present: EOMI Conjunctiva: Present: Normal Mouth: Present: Moist Mucous Membranes Pharnyx: Present: Normal. No: ERYTHEMA, EXUDATE, TONSILS ENLARGED, Peritonsilar Swelling, Uvular Deviation Nose (External): Present: Atraumatic Nose (Internal): Present: No Active Bleeding Neck: Present: Normal Range of Motion Respiratory/Chest: Present: Wheezes (scattered expiratory wheezing on the right), Decreased Breath Sounds (bilaterally all lung rock), Rales (bilateral lung bases). No: Respiratory Distress, Accessory Muscle Use Cardiovascular: Present: Regular Rate and Rhythm, Normal S1, S2, Peripheal Pulses Present. No: Murmurs Abdomen: No: Tenderness, Distention, Peritoneal Signs Back: Present: Normal Inspection Upper Extremity: Present: Normal Inspection. No: Cyanosis, Edema Lower Extremity: Present: Normal Inspection. No: Edema Neurological: Present: GCS=15, CN II-XII Intact, Speech Normal, Motor Func Grossly Intact, Normal Sensory Function, Gait Normal Skin: Present: Warm, Dry, Normal Color. No: Rashes Lymphatic: No: Cervical Adenopathy Psychiatric: Present: Alert, Oriented x 3, Normal Insight, Normal Concentration, Normal Affect, Normal Mood Medical Decision Making ED Course and Treatment: 01/16/18 15:30 Initial Plan: * Duoneb * Solumedrol * Lasix * CBC * CMP * Troponin * BNP * PT/PTT * EKG * CXR 01/16/18 16:30 CBC: remarkable for mildly elevated WBC, 11. CMP: elevated glucose, known diabetic Troponin, 0.06 mildly elevated, will trend BNP: 959 INR: 2.08 CXR: no active disease EKG: rate 91; ventricular paced rhythm; no ST elevations. Similar to prior EKGs. Pt not feeling any better after medications, will call Dr. Robles to admit to hospital. 01/16/18 17:[address] Robles, who accepted the patient for inpatient admission to remote telemetry. Plan of care discussed with pt, who understands the need for admission. Impression: CHF, COPD Plan: Admission to remote telemetry - Lab Interpretations Lab Results: 01/16/18 16:00 01/16/18 16:00 Lab Results 01/16/18 16:00: PT 24.1 H, INR 2.08, APTT 30.5 01/16/18 16:00: Sodium 139, Potassium 4.2, Chloride 103, Carbon Dioxide 25, Anion Gap 14, BUN 19, Creatinine 0.9, Est GFR ( Amer) > 60, Est GFR (Non- Af Amer) > 60, Random Glucose 223 H, Calcium 9.5, Total Bilirubin 0.6, AST 27, ALT 32, Alkaline Phosphatase 70, Troponin I 0.06 D, NT-Pro-B Natriuret Pep 959 H, Total Protein 6.8, Albumin 4.0, Globulin 2.8, Albumin/Globulin Ratio 1.4 01/16/18 16:00: WBC 11.4 H, RBC 4.93, Hgb 14.5, Hct 42.8, MCV 86.8, MCH 29.4, MCHC 33.9, RDW 16.4 H, Plt Count 195, MPV 10.0, Gran % 77.6 H, Lymph % (Auto) 14.1 L, Scurry % (Auto) 6.8 H, Eos % (Auto) 1.1 L, Baso % (Auto) 0.4, Gran # 8.87 H, Lymph # (Auto) 1.6, Scurry # (Auto) 0.8 H, Eos # (Auto) 0.1, Baso # (Auto) 0.05 I have reviewed the lab results: Yes - RAD Interpretation Radiology Orders: 01/16/18 15:19 CXR [CHEST PORTABLE] [RAD] Stat - EKG Interpretation Interpreted by ED Physician: Yes Type: 12 lead EKG Comparison: Similar to previous EKG - Medication Orders Current Medication Orders: Discontinued Medications Albuterol/Ipratropium (Duoneb 3 Mg/0.5 Mg (3 Ml) Ud) 3 ml IH Q15M [place] Stop: 01/16/18 16:01 Last Admin: 01/16/18 16:11 Dose: 3 ml Methylprednisolone (Solu-Medrol) 125 mg IVP STAT STA Stop: 01/16/18 15:20 Last Admin: 01/16/18 15:40 Dose: 125 mg IVP Administration Document 01/16/18 15:40 [facility] (Rec: 01/16/18 15:40 [facility] [id number]) Charges for Administration # of IVP Administrations 1 Disposition/Present on Arrival - Present on Arrival Any Indicators Present on Arrival: No History of DVT/PE: No History of Uncontrolled Diabetes: No Urinary Catheter: No History of Decub. Ulcer: No History Surgical Site Infection Following: None - Disposition Have Diagnosis and Disposition been Completed?: Yes Diagnosis: Shortness of breath Disposition: HOSPITALIZED Disposition Time: 17:00 Patient Plan: Admission Condition: STABLE
--- NOTE | 2018-01-16 17:51 | CARD ---
APPROVED REPORT Date of service: 01/16/2018 EKG Measurement Heart [id number] <Conclusion> Atrial sensed biventricular paced rhythm Abnormal ECG
[2018-01-16 19:33] VITALS: RESP 20
[2018-01-16] MEDS ORDERED: Albuterol-Ipratrop 3 mg / 0.5 (3 ml) UD IH SCH (20:00)
[2018-01-16] MEDS: Insulin Reg-HIGH-Coverage SC SCH (21:18)
[2018-01-16] MEDS ORDERED: Influenza Vaccine 60 mcg/0.5 mL SYR (4YR UP) IM ONE (21:54)
[2018-01-16] MEDS ORDERED: Pneumococcal 23-Valent Vaccine IM ONE (21:54)
[2018-01-17] MEDS ORDERED: Insulin Regular 1 UNITS/0.01 ML ML SC ONE (02:09)
--- NOTE | 2018-01-17 07:48 | CP.PCM.HP ---
<Genesis Chambers - Last Filed: 01/17/18 14:32> History of Present Illness - History of Present Illness History of Present Illness: 57 year old male with a past medical history of CHF secondary to systolic dysfunction, CAD s/p 2 stents, DM II, atrial fibrillation on Coumadin, and COPD who presents with orthopnea, productive cough consistent with white sputum, and some dyspepsia. He reports taking all of his medications as directed by his PMD. He is sitting in a chair and able to speak in full sentences without any shortness of breath. He denies fever, chills, nausea, vomiting, diaphoresis, or sick contacts. He appears comfortable. His chest pain is substernal, burning in character, and non-radiating, worsened when he lies flat. 12 point review of system is negative. PMH: As above Surgical Hx: Gastric bypass, left leg thrombectomy Family Hx: Noncontributory Social Hx: Former smoker, denies alcohol or illicit drug use Allergies: Seroquel and berries Medications: Reviewed, As per MAR Present on Admission - Present on Admission Any Indicators Present on Admission: No Review of Systems - Review of Systems All systems: reviewed and no additional remarkable complaints except (as per HPI) Past Patient History - Infectious Disease Hx of Infectious Diseases: None - Tetanus Immunizations Tetanus Immunization: Unknown - Past Medical History & Family History Past Medical History?: Yes - Past Social History Smoking Status: Former Smoker - CARDIAC Hx Cardiac Disorders: Yes Hx Cardia Arrhythmia: Yes Hx Circulatory Problems: Yes Hx Congestive Heart Failure: Yes Hx Hypertension: Yes Hx Internal Defibrillator: Yes Hx Pacemaker: Yes Hx Peripheral Edema: Yes Hx Peripheral Vascular Disease: Yes - PULMONARY Hx Respiratory Disorders: Yes Hx Bronchitis: Yes Hx Chronic Obstructive Pulmonary Disease (COPD): Yes Hx Emphysema: Yes Hx Pneumonia: Yes Hx Respiratory Tract Infection: Yes - NEUROLOGICAL Hx Neurological Disorder: Yes Hx Dizziness: Yes - HEENT Hx HEENT Problems: Yes Hx Blind: (HX of eye surgery) - RENAL Hx Chronic Kidney Disease: No - ENDOCRINE/METABOLIC Hx Adrenal Cancer: Yes Hx Diabetes Mellitus Type 2: Yes - HEMATOLOGICAL/ONCOLOGICAL Hx Blood Disorders: No - INTEGUMENTARY Hx Dermatological Problems: No - MUSCULOSKELETAL/RHEUMATOLOGICAL Hx Musculoskeletal Disorders: Yes Hx Arthritis: Yes Hx Falls: Yes Hx Fractures: Yes Hx Osteoarthritis: Yes - GASTROINTESTINAL Hx Gastrointestinal Disorders: Yes (gastric bypass surgery) Hx Gastroesophageal Reflux: Yes - GENITOURINARY/GYNECOLOGICAL Hx Genitourinary Disorders: Yes - PSYCHIATRIC Hx Psychophysiologic Disorder: Yes Hx Anxiety: Yes Hx Bipolar Disorder: Yes Hx Depression: Yes Hx Substance Use: No - SURGICAL HISTORY Hx Cardiac Catheterization: Yes Hx Coronary Stent: Yes Hx Gastric Bypass Surgery: Yes - ANESTHESIA Hx Anesthesia Reactions: No Hx Malignant Hyperthermia: No Meds Home Medications: Home Medication List Medication Instructions Recorded Confirmed Type RX: Albuterol/Ipratropium [Duoneb 3 ml IH TIDRESP neb 01/17/18 Rx 3 mg/0.5 mg (3 ml) UD] RX: Furosemide [Lasix] 80 mg PO BID tab 01/17/18 Rx RX: Gabapentin [Neurontin] 300 mg PO BID cap 01/17/18 Rx RX: Glimepiride [amaRYL] 4 mg PO DAILY tab 01/17/18 Rx RX: LORazepam [Ativan] 1 mg PO BID PRN tab 01/17/18 Rx RX: Lisinopril [Zestril] 2.5 mg PO DAILY tab 01/17/18 Rx RX: Montelukast [Singulair] 10 mg PO HS tab 01/17/18 Rx RX: Warfarin [Coumadin] 7 mg PO 1800 tab 01/17/18 Rx RX: diltiaZEM [Cardizem] 30 mg PO BID tab 01/17/18 Rx RX: rOPINIRole [Requip] 0.5 mg PO HS tab 01/17/18 Rx RX: traZODone [Desyrel] 150 mg PO HS tab 01/17/18 Rx Allergies/Adverse Reactions: Allergies Allergy/AdvReac Type Severity Reaction Status Date / Time quetiapine fumarate AdvReac ANAPHYLAXIS Verified 01/16/18 20:03 [From Seroquel] wild berries Allergy Intermediate RASH Uncoded 01/16/18 20:03 Physical Exam - Constitutional Appears: Non-toxic, No Acute Distress - Head Exam Head Exam: ATRAUMATIC, NORMOCEPHALIC - Eye Exam Eye Exam: EOMI, Normal appearance - ENT Exam ENT Exam: Mucous Membranes Moist - Neck Exam Neck exam: Positive for: Normal Inspection - Respiratory Exam Respiratory Exam: Clear to Auscultation Bilateral, NORMAL BREATHING PATTERN. absent: Accessory Muscle Use - Cardiovascular Exam Cardiovascular Exam: RRR, +S1, +S2 - GI/Abdominal Exam GI & Abdominal Exam: Soft. absent: Guarding, Rebound - Extremities Exam Extremities exam: Positive for: normal inspection. Negative for: calf tenderness - Neurological Exam Neurological exam: Alert, CN II-XII Intact, Oriented x3 - Psychiatric Exam Psychiatric exam: Normal Affect, Normal Mood - Skin Skin Exam: Dry, Intact, Normal Color, Warm Results - Vital Signs Recent Vital Signs: Last Vital Signs Temp 97.7 F 01/17/18 00:01 Pulse 82 01/17/18 06:00 Resp 20 01/17/18 00:01 BP 122/71 01/17/18 00:01 Pulse Ox 99 01/17/18 02:00 - Labs Result Diagrams: 01/16/18 16:00 01/16/18 16:00 Labs: Laboratory Results - last 24 hr 01/16/18 01/16/18 01/16/18 16:00 16:00 16:00 WBC 11.4 H RBC 4.93 Hgb 14.5 Hct 42.8 MCV 86.8 MCH 29.4 MCHC 33.9 RDW 16.4 H Plt Count 195 MPV 10.0 Gran % 77.6 H Lymph % (Auto) 14.1 L Thayer % (Auto) 6.8 H Eos % (Auto) 1.1 L Baso % (Auto) 0.4 Gran # 8.87 H Lymph # (Auto) 1.6 [place]ayer # (Auto) 0.8 H Eos # (Auto) 0.1 Baso # (Auto) 0.05 PT 24.1 H INR 2.08 APTT 30.5 Sodium 139 Potassium 4.2 Chloride 103 Carbon Dioxide 25 Anion Gap 14 BUN 19 Creatinine 0.9 Est GFR ( Amer) > 60 Est GFR (Non-Af Amer) > 60 POC Glucose (mg/dL) Random Glucose 223 H Calcium 9.5 Total Bilirubin 0.6 AST 27 ALT 32 Alkaline Phosphatase 70 Troponin I 0.06 D NT-Pro-B Natriuret Pep 959 H Total Protein 6.8 Albumin 4.0 Globulin 2.8 Albumin/Globulin Ratio 1.4 01/16/18 01/17/18 01/17/18 21:15 02:00 06:04 WBC RBC Hgb Hct MCV MCH MCHC RDW Plt Count MPV Gran % Lymph % (Auto) Thayer % (Auto) Eos % (Auto) Baso % (Auto) Gran # Lymph # (Auto) [place]ayer # (Auto) Eos # (Auto) Baso # (Auto) PT INR APTT Sodium Potassium Chloride Carbon Dioxide Anion Gap BUN Creatinine Est GFR ( Amer) Est GFR (Non-Af Amer) POC Glucose (mg/dL) 410 H* 422 H* 340 H Random Glucose Calcium Total Bilirubin AST ALT Alkaline Phosphatase Troponin I NT-Pro-B Natriuret Pep Total Protein Albumin Globulin Albumin/Globulin Ratio 01/17/18 07:24 WBC RBC Hgb Hct MCV MCH MCHC RDW Plt Count MPV Gran % Lymph % (Auto) Thayer % (Auto) Eos % (Auto) Baso % (Auto) Gran # Lymph # (Auto) Thayer # (Auto) Eos # (Auto) Baso # (Auto) PT INR APTT Sodium Potassium Chloride Carbon Dioxide Anion Gap BUN Creatinine Est GFR ( Amer) Est GFR (Non-Af Amer) POC Glucose (mg/dL) 338 H Random Glucose Calcium Total Bilirubin AST ALT Alkaline Phosphatase Troponin I NT-Pro-B Natriuret Pep Total Protein Albumin Globulin Albumin/Globulin Ratio Assessment & Plan - Assessment and Plan (Free Text) Assessment: 57 year old male with a past medical history of CHF secondary to systolic dysfunction, CAD s/p 2 stents, DM II, atrial fibrillation on Coumadin, and COPD who presents with orthopnea, productive cough consistent with white sputum, and some dyspepsia. Plan: 1) CHF exacerbation - Trend troponins which were negative - Patient was observed overnight and discharged in the morning - Lisinopril 2.5 mg - Furosemide 80 mg BID - Metazolone 5 mg PO MWF - Spirinolactone 25 mg BID 2) Atrial fibrillation - Diltiazem 30 mg BID - Coumadin continue home dosage 3) DM II - Continue home Sulfonylurea - ISS humulin ACHS - Hold metformin 4) RLS - Continue Requip 5) COPD - Duonebs TID WILTON - Montelukast 10 mg HS 6) Peripheral Neuropathy - Gabapentin 300 mg BID Case was reviewed and discussed with attending physician, Dr. Villagomez - Date & Time Date: 01/17/18 Time: 14:36 <Axel Villagomez - Last Filed: 01/17/18 16:32> Results - Vital Signs Recent Vital Signs: Last Vital Signs Temp 97.6 F 01/17/18 08:25 Pulse 87 01/17/18 09:09 Resp 20 01/17/18 08:25 BP 111/67 01/17/18 09:09 Pulse Ox 95 01/17/18 08:25 - Labs Result Diagrams: 01/16/18 16:00 01/16/18 16:00 Labs: Laboratory Results - last 24 hr 01/16/18 01/16/18 01/17/18 16:00 21:15 02:00 Sodium 139 Potassium 4.2 Chloride 103 Carbon Dioxide 25 Anion Gap 14 BUN 19 Creatinine 0.9 Est GFR ( Amer) > 60 Est GFR (Non-Af Amer) > 60 POC Glucose (mg/dL) 410 H* 422 H* Random Glucose 223 H Calcium 9.5 Total Bilirubin 0.6 AST 27 ALT 32 Alkaline Phosphatase 70 Troponin I 0.06 D NT-Pro-B Natriuret Pep 959 H Total Protein 6.8 Albumin 4.0 Globulin 2.8 Albumin/Globulin Ratio 1.4 01/17/18 01/17/18 06:04 07:24 Sodium Potassium Chloride Carbon Dioxide Anion Gap BUN Creatinine Est GFR ( Amer) Est GFR (Non-Af Amer) POC Glucose (mg/dL) 340 H 338 H Random Glucose Calcium Total Bilirubin AST ALT Alkaline Phosphatase Troponin I NT-Pro-B Natriuret Pep Total Protein Albumin Globulin Albumin/Globulin Ratio Assessment & Plan - Assessment and Plan (Free Text) Plan: Pt seen and examined. I have reviewed the note of the medical parasitologist and agree with it. I have discussed the assessment and plan with the resident. I have reviewed the patient's labs and medications. Pt with SOB due to acute COPD and his symptoms improved. He was given steroids and Duoneb and he feels better. He has CAD and will continue with ASA. He will cotinue with Requip for his Restless Leg syndrome. He is going to continue with Lasix. He is on Coumadin for A fib. DM-2 is not controlled due to the steroids he was given in the ER. Trop is negative. He is asking to go home because he feels better.
[2018-01-17] MEDS: Insulin Reg-HIGH-Coverage SC SCH (08:12)
[2018-01-17 08:26] VITALS: BP 111/67; PULSE 87; TEMP 97.6; O2SAT 95
--- NOTE | 2018-01-17 12:33 | CP.PCM.DIS ---
<Genesis Chambers - Last Filed: 01/17/18 14:41> Provider - Provider Date of Admission: 01/16/18 17:11 Attending physician: Axel Villagomez MD Primary care physician: Axel Villagomez MD Time Spent in preparation of Discharge (in minutes): 35 Hospital Course - Lab Results Lab Results: Most Recent Lab Values WBC 11.4 10^3/uL (4.5-11.0) H 01/16/18 16:00 RBC 4.93 10^6/uL (3.5-6.1) 01/16/18 16:00 Hgb 14.5 g/dL (14.0-18.0) 01/16/18 16:00 Hct 42.8 % (42.0-52.0) 01/16/18 16:00 MCV 86.8 fl (80.0-105.0) 01/16/18 16:00 MCH 29.4 pg (25.0-35.0) 01/16/18 16:00 MCHC 33.9 g/dl (31.0-37.0) 01/16/18 16:00 RDW 16.4 % (11.5-14.5) H 01/16/18 16:00 Plt Count 195 10^3/uL (120.0-450.0) 01/16/18 16:00 MPV 10.0 fl (7.0-11.0) 01/16/18 16:00 Gran % 77.6 % (50.0-68.0) H 01/16/18 16:00 Lymph % (Auto) 14.1 % (22.0-35.0) L 01/16/18 16:00 [place] % (Auto) 6.8 % (1.0-6.0) H 01/16/18 16:00 Eos % (Auto) 1.1 % (1.5-5.0) L 01/16/18 16:00 Baso % (Auto) 0.4 % (0.0-3.0) 01/16/18 16:00 Gran # 8.87 (1.4-6.5) H 01/16/18 16:00 Lymph # (Auto) 1.6 (1.2-3.4) 01/16/18 16:00 [place] # (Auto) 0.8 (0.1-0.6) H 01/16/18 16:00 Eos # (Auto) 0.1 (0.0-0.7) 01/16/18 16:00 Baso # (Auto) 0.05 K/mm3 (0.0-2.0) 01/16/18 16:00 PT 24.1 SECONDS (9.4-12.5) H 01/16/18 16:00 INR 2.08 01/16/18 16:00 APTT 30.5 Seconds (25.1-36.5) 01/16/18 16:00 Sodium 139 mmol/L (132-148) 01/16/18 16:00 Potassium 4.2 mmol/L (3.6-5.0) 01/16/18 16:00 Chloride 103 mmol/L (98-107) 01/16/18 16:00 Carbon Dioxide 25 mmol/L (21-33) 01/16/18 16:00 Anion Gap 14 (10-20) 01/16/18 16:00 BUN 19 mg/dL (7-21) 01/16/18 16:00 Creatinine 0.9 mg/dl (0.8-1.5) 01/16/18 16:00 Est GFR ( Amer) > 60 01/16/18 16:00 Est GFR (Non-Af Amer) > 60 01/16/18 16:00 POC Glucose (mg/dL) 338 mg/dL (65-110) H 01/17/18 07:24 Random Glucose 223 mg/dL (70-110) H 01/16/18 16:00 Calcium 9.5 mg/dL (8.4-10.5) 01/16/18 16:00 Total Bilirubin 0.6 mg/dL (0.2-1.3) 01/16/18 16:00 AST 27 U/L (17-59) 01/16/18 16:00 ALT 32 U/L (7-56) 01/16/18 16:00 Alkaline Phosphatase 70 U/L (38-126) 01/16/18 16:00 Troponin I 0.06 ng/mL D 01/16/18 16:00 NT-Pro-B Natriuret Pep 959 pg/mL (0-450) H 01/16/18 16:00 Total Protein 6.8 g/dL (5.8-8.3) 01/16/18 16:00 Albumin 4.0 g/dL (3.0-4.8) 01/16/18 16:00 Globulin 2.8 gm/dL 01/16/18 16:00 Albumin/Globulin Ratio 1.4 (1.1-1.8) 01/16/18 16:00 - Hospital Course Hospital Course: 57 year old male with a past medical history of CHF secondary to systolic dysfunction, CAD s/p 2 stents, DM II, atrial fibrillation on Coumadin, and COPD who presents with orthopnea, productive cough consistent with white sputum, and some dyspepsia. He reports taking all of his medications as directed by his PMD. He is sitting in a chair and able to speak in full sentences without any shortness of breath. He denies fever, chills, nausea, vomiting, diaphoresis, or sick contacts. He appears comfortable. His chest pain is substernal, burning in character, and non-radiating, worsened when he lies flat. Troponins were negative x 2. EKG showed atrial sensed biventricular paced rhythm. In the morning patient had no shortness of breath, lungs were clear, and he was able to ambulate without dyspnea. He was discharged with strict follow with his PMD, Dr. Villagomez. His diuretic use was discussed and he was advised to return to the ED for any worsening of symptoms. - Date & Time of H&P Date of H&P: 01/17/18 Time of H&P: 14:43 Discharge Exam - Head Exam Head Exam: ATRAUMATIC, NORMOCEPHALIC - Eye Exam Eye Exam: EOMI, Normal appearance - ENT Exam ENT Exam: Mucous Membranes Moist - Neck Exam Neck exam: Normal Inspection - Respiratory Exam Respiratory Exam: Clear to PA & Lateral, NORMAL BREATHING PATTERN - Cardiovascular Exam Cardiovascular Exam: RRR, +S1, +S2 - GI/Abdominal Exam GI & Abdominal Exam: Normal Bowel Sounds. absent: Guarding - Extremities Exam Extremities exam: normal inspection - Neurological Exam Neurological exam: Alert, CN II-XII Intact, Oriented x3 - Psychiatric Exam Psychiatric exam: Normal Affect, Normal Mood - Skin Skin Exam: Dry, Intact, Normal Color, Warm Discharge Plan - Follow Up Plan Condition: STABLE Disposition: HOME/ ROUTINE Instructions: Heart Failure, Adult, Shortness of Breath (Dyspnea) (DC) Additional Instructions: FOLLOW UP WITH PRIMARY DOCTOR DR. VILLAGOMEZ IN 1 WEEK. ANY NEW ONSET OF SYMPTOMS SUCH DIZZINESS, SHORTNESS OF BREATH, NAUSEA, VOMITING, REPORT BACK TO THE ER IMMEDIATELY . Referrals: Axel Villagomez MD [Primary Care Provider] - 1 Week <Axel Villagomez - Last Filed: 01/17/18 16:29> Provider - Provider Date of Admission: 01/16/18 17:11 Attending physician: Axel Villagomez MD Primary care physician: Axel Villagomez MD Hospital Course - Lab Results Lab Results: Most Recent Lab Values WBC 11.4 10^3/uL (4.5-11.0) H 01/16/18 16:00 RBC 4.93 10^6/uL (3.5-6.1) 01/16/18 16:00 Hgb 14.5 g/dL (14.0-18.0) 01/16/18 16:00 Hct 42.8 % (42.0-52.0) 01/16/18 16:00 MCV 86.8 fl (80.0-105.0) 01/16/18 16:00 MCH 29.4 pg (25.0-35.0) 01/16/18 16:00 MCHC 33.9 g/dl (31.0-37.0) 01/16/18 16:00 RDW 16.4 % (11.5-14.5) H 01/16/18 16:00 Plt Count 195 10^3/uL (120.0-450.0) 01/16/18 16:00 MPV 10.0 fl (7.0-11.0) 01/16/18 16:00 Gran % 77.6 % (50.0-68.0) H 01/16/18 16:00 Lymph % (Auto) 14.1 % (22.0-35.0) L 01/16/18 16:00 [place] % (Auto) 6.8 % (1.0-6.0) H 01/16/18 16:00 Eos % (Auto) 1.1 % (1.5-5.0) L 01/16/18 16:00 Baso % (Auto) 0.4 % (0.0-3.0) 01/16/18 16:00 Gran # 8.87 (1.4-6.5) H 01/16/18 16:00 Lymph # (Auto) 1.6 (1.2-3.4) 01/16/18 16:00 [place] # (Auto) 0.8 (0.1-0.6) H 01/16/18 16:00 Eos # (Auto) 0.1 (0.0-0.7) 01/16/18 16:00 Baso # (Auto) 0.05 K/mm3 (0.0-2.0) 01/16/18 16:00 PT 24.1 SECONDS (9.4-12.5) H 01/16/18 16:00 INR 2.08 01/16/18 16:00 APTT 30.5 Seconds (25.1-36.5) 01/16/18 16:00 Sodium 139 mmol/L (132-148) 01/16/18 16:00 Potassium 4.2 mmol/L (3.6-5.0) 01/16/18 16:00 Chloride 103 mmol/L (98-107) 01/16/18 16:00 Carbon Dioxide 25 mmol/L (21-33) 01/16/18 16:00 Anion Gap 14 (10-20) 01/16/18 16:00 BUN 19 mg/dL (7-21) 01/16/18 16:00 Creatinine 0.9 mg/dl (0.8-1.5) 01/16/18 16:00 Est GFR ( Amer) > 60 01/16/18 16:00 Est GFR (Non-Af Amer) > 60 01/16/18 16:00 POC Glucose (mg/dL) 338 mg/dL (65-110) H 01/17/18 07:24 Random Glucose 223 mg/dL (70-110) H 01/16/18 16:00 Calcium 9.5 mg/dL (8.4-10.5) 01/16/18 16:00 Total Bilirubin 0.6 mg/dL (0.2-1.3) 01/16/18 16:00 AST 27 U/L (17-59) 01/16/18 16:00 ALT 32 U/L (7-56) 01/16/18 16:00 Alkaline Phosphatase 70 U/L (38-126) 01/16/18 16:00 Troponin I 0.06 ng/mL D 01/16/18 16:00 NT-Pro-B Natriuret Pep 959 pg/mL (0-450) H 01/16/18 16:00 Total Protein 6.8 g/dL (5.8-8.3) 01/16/18 16:00 Albumin 4.0 g/dL (3.0-4.8) 01/16/18 16:00 Globulin 2.8 gm/dL 01/16/18 16:00 Albumin/Globulin Ratio 1.4 (1.1-1.8) 01/16/18 16:00 - Hospital Course Hospital Course: Pt seen and examined. I have reviewed the note of the certified medical biller and agree with it. I have discussed the assessment and plan with the resident. I have reviewed the patient's labs and medications. Pt with SOB due to COPD and this has improved. He has a hx of noncompliance because financial issues. He was given steroids and Duoneb and he feels better. He has CAD and will continue with ASA. He is on Coumadin for A fib. DM-2 is not controlled due to the steroids he was given in the ER. Trop is negative. He is asking to go home because he feels better.
== END 2018-01-17 13:48 | disposition home or self-care (01) ==
LOC: ED 14:41 → ERH 17:11 → INTOOBSV 17:11 → ERH 17:46 → 3RSO 18:17
PROVIDERS: ADMIT Internal Medicine Nephrology; ATTEND Internal Medicine Nephrology
DX: I11.0 Hypertensive heart disease with heart failure (principal); I50.22 Chronic systolic (congestive) heart failure; I48.91 Unspecified atrial fibrillation; E11.51 Type 2 diabetes mellitus with diabetic peripheral angiopathy without gangrene; F31.9 Bipolar disorder, unspecified; H54.7 Unspecified visual loss; I25.10 Atherosclerotic heart disease of native coronary artery without angina pectoris; J44.9 Chronic obstructive pulmonary disease, unspecified; K21.9 Gastro-esophageal reflux disease without esophagitis; Z79.01 Long term (current) use of anticoagulants; Z79.84 Long term (current) use of oral hypoglycemic drugs; Z79.899 Other long term (current) drug therapy; Z85.858 Personal history of malignant neoplasm of other endocrine glands; Z87.01 Personal history of pneumonia (recurrent); Z87.891 Personal history of nicotine dependence; Z91.19 Patient's noncompliance with other medical treatment and regimen; Z95.0 Presence of cardiac pacemaker; Z95.5 Presence of coronary angioplasty implant and graft; Z98.84 Bariatric surgery status; M19.90 Unspecified osteoarthritis, unspecified site; F41.9 Anxiety disorder, unspecified; Z87.892 Personal history of anaphylaxis; Z88.8 Allergy status to other drugs, medicaments and biological substances; Z91.018 Allergy to other foods; R40.2412 Glasgow coma scale score 13-15, at arrival to emergency department
CPT/HCPCS: 71045; 80053; 82948; 83880; 84484; 85025; 85610; 85730; 93005; 96374; 96375; 99285; G0378; J1940; J2930

== ENCOUNTER 2018-01-29 15:21 | Inpatient (IN) | payer MEDICARE, OTHER ==
[2018-01-29 15:22] VITALS: PULSE 74
[2018-01-29] MEDS ORDERED: Albuterol-Ipratrop 3 mg / 0.5 (3 ml) UD IH STA (15:38)
--- NOTE | 2018-01-29 15:43 | ED PDOC ---
Arrival/HPI - General Chief Complaint: Shortness Of Breath Time Seen by Provider: 01/29/18 15:22 Historian: Patient - History of Present Illness Time/Duration: Prior to Arrival Symptom Onset: Gradual Symptom Course: Worsening Quality: Aching Severity Level: Mild Activities at Onset: Rest Associated Symptoms (Text): 01/29/18 15:40 Well-known to the emergency Department staff. One of multiple visits to the emergency department for chest pain and shortness of breath. Patient reports chest pain and back pain along with shortness of breath and wheezing for the last several days. He also complains of chronic right hip pain. He quit smoking and drinking many years ago. Morbidly obese. He has a nonproductive cough. No fever. No nausea or vomiting. No diaphoresis. No dizziness. Past Medical History - Infectious Disease Hx of Infectious Diseases: None - Tetanus Immunization Tetanus Immunization: Unknown - Cardiac Hx Cardiac Disorders: Yes Hx Cardiac Arrhythmia: Yes Hx Circulatory Problems: Yes Hx Congestive Heart Failure: Yes Hx Hypertension: Yes Hx Internal Defibrillator: Yes Hx Pacemaker: Yes Hx Peripheral Edema: Yes Hx Peripheral Vascular Disease: Yes - Pulmonary Hx Respiratory Disorders: Yes Hx Bronchitis: Yes Hx Chronic Obstructive Pulmonary Disease (COPD): Yes Hx Emphysema: Yes Hx Pneumonia: Yes Hx Respiratory Tract Infection: Yes - Neurological Hx Neurological Disorder: Yes Hx Dizziness: Yes - HEENT Hx HEENT Disorder: Yes Hx Blind: (HX of eye surgery) - Renal Hx Renal Disorder: No - Endocrine/Metabolic Hx Adrenal Cancer: Yes Hx Diabetes Mellitus Type 2: Yes - Hematological/Oncological Hx Blood Disorders: No - Integumentary Hx Dermatological Disorder: No - Musculoskeletal/Rheumatological Hx Musculoskeletal Disorders: Yes Hx Arthritis: Yes Hx Falls: Yes Hx Fractures: Yes Hx Osteoarthritis: Yes - Gastrointestinal Hx Gastrointestinal Disorders: Yes (gastric bypass surgery) Hx Gastroesophageal Reflux: Yes - Genitourinary/Gynecological Hx Genitourinary Disorders: Yes - Psychiatric Hx Psychophysiologic Disorder: Yes Hx Anxiety: Yes Hx Bipolar Disorder: Yes Hx Depression: Yes Hx Substance Use: No - Past Surgical History Past Surgical History: Non-Contributing - Surgical History Hx Cardiac Catheterization: Yes Hx Coronary Stent: Yes Hx Gastric Bypass Surgery: Yes - Anesthesia Hx Anesthesia: Yes Hx Anesthesia Reactions: No Hx Malignant Hyperthermia: No - Suicidal Assessment Feels Threatened In Home Enviroment: No Family/Social History - Physician Review Nursing Documentation Reviewed: Yes Family/Social History: Unknown Family HX Smoking Status: Former Smoker Hx Alcohol Use: No Hx Substance Use: No Hx Substance Use Treatment: No Allergies/Home Meds Allergies/Adverse Reactions: Allergies quetiapine fumarate [From Seroquel] Adverse Reaction (Verified 01/16/18 20:03) ANAPHYLAXIS wild berries Allergy (Intermediate, Uncoded 01/16/18 20:03) RASH Review of Systems - Physician Review All systems were reviewed & negative as marked: Yes - Review of Systems Constitutional: absent: Fatigue, Fevers Respiratory: SOB, Cough, Wheezing Cardiovascular: Chest Pain. absent: Palpitations, Syncope Gastrointestinal: absent: Abdominal Pain, Diarrhea, Nausea, Vomiting Skin: Normal Neurological: Normal Physical Exam Vital Signs Resp 01/29/18 15:34 18 Temperature: Afebrile Blood Pressure: Normal Pulse: Regular Respiratory Rate: Normal Appearance: Positive for: Well-Appearing, Non-Toxic, Comfortable, Other (morbidly obese) Pain Distress: None Mental Status: Positive for: Alert and Oriented X 3 - Systems Exam Head: Present: Atraumatic, Normocephalic Pupils: Present: PERRL Extroacular Muscles: Present: EOMI Conjunctiva: Present: Normal Mouth: Present: Moist Mucous Membranes Pharnyx: No: ERYTHEMA, EXUDATE, TONSILS ENLARGED Neck: Present: Normal Range of Motion Respiratory/Chest: Present: Wheezes, Decreased Breath Sounds, Rhonchi. No: Rales, Retracting, Tachypneic, Tender to Palpation Cardiovascular: Present: Regular Rate and Rhythm, Normal S1, S2. No: Murmurs Abdomen: No: Tenderness, Distention, Peritoneal Signs, Rebound, Guarding Upper Extremity: Present: Normal Inspection. No: Cyanosis, Edema Lower Extremity: Present: Normal Inspection. No: Edema Neurological: Present: GCS=15, CN II-XII Intact, Speech Normal, Motor Func Grossly Intact Skin: Present: Warm, Dry, Normal Color. No: Rashes Psychiatric: Present: Alert, Oriented x 3, Normal Insight, Normal Concentration Medical Decision Making ED Course and Treatment: 01/29/18 15:42 EKG is pacing rate approximately 70. 01/29/18 16:27 Chest X-ray reviewed, shows: FINDINGS: LUNGS:No active pulmonary disease. PLEURA:No significant pleural effusion identified, no pneumothorax apparent. CARDIOVASCULAR:No aortic atherosclerotic calcification present. Moderate cardiomegaly no pulmonary vascular congestion. OSSEOUS STRUCTURES:No significant abnormalities. VISUALIZED UPPER ABDOMEN:Normal. OTHER FINDINGS:Dual lead pacemaker IMPRESSION: No active disease. - RAD Interpretation Radiology Orders: 01/29/18 15:39 CHEST PORTABLE [RAD] Stat Chest one view as read by the radiologist shows cardiomegaly with no infiltrate or effusion. Outbound Sales Executive: Radiologist Disposition/Present on Arrival - Present on Arrival Any Indicators Present on Arrival: No History of DVT/PE: No History of Uncontrolled Diabetes: No Urinary Catheter: No History of Decub. Ulcer: No History Surgical Site Infection Following: None - Disposition Have Diagnosis and Disposition been Completed?: Yes Diagnosis: Elevated troponin, Diabetes, COPD (chronic obstructive pulmonary disease), COPD exacerbation, Chest pain, Coagulopathy, Hyperglycemia Disposition: HOSPITALIZED Disposition Time: 16:48 Patient Plan: Observation, Telemetry Patient Problems: Current Active Problems Problem Status Onset COPD exacerbation Acute Chest pain Acute Coagulopathy Acute Elevated troponin Acute Hyperglycemia Acute COPD (chronic obstructive pulmonary disease) Chronic Diabetes Chronic Condition: FAIR
[2018-01-29 15:55] VITALS: BMI 39.6
[2018-01-29 16:17] LABS: BASO # 0.05 K/mm3 (0.0-2.0); BASO % 0.4 % (0.0-3.0); EOS # 0.2 (0.0-0.7); EOS % 1.6 % (1.5-5.0); GRAN # 9.69 (1.4-6.5); GRAN % 83.9 % (50.0-68.0); HEMOGLOBIN 12.2 g/dL (14.0-18.0); LYMPH # 1.1 (1.2-3.4); LYMPH % 9.2 % (22.0-35.0); MEAN CORPUSCULAR HEMOGLOBIN 29.3 pg (25.0-35.0); MEAN CORPUSCULAR HGB CONC 33.3 g/dl (31.0-37.0); MEAN PLATELET VOLUME 9.8 fl (7.0-11.0); MONO # 0.6 (0.1-0.6); MONO % 4.9 % (1.0-6.0); RBC 4.16 10^6/uL (3.5-6.1); WHITE BLOOD COUNT 11.5 10^3/uL (4.5-11.0)
--- NOTE | 2018-01-29 16:18 | RAD ---
Date of service: 01/29/2018 HISTORY: cp COMPARISON: 01/16/2018 FINDINGS: LUNGS: No active pulmonary disease. PLEURA: No significant pleural effusion identified, no pneumothorax apparent. CARDIOVASCULAR: No aortic atherosclerotic calcification present. Moderate cardiomegaly no pulmonary vascular congestion. OSSEOUS STRUCTURES: No significant abnormalities. VISUALIZED UPPER ABDOMEN: Normal. OTHER FINDINGS: Dual lead pacemaker IMPRESSION: No active disease.
[2018-01-29 16:29] LABS: ALB/GLOB RATIO 1.3 (1.1-1.8); ALBUMIN 3.7 g/dL (3.0-4.8); ALT/SGPT 29 U/L (7-56); AST/SGOT 23 U/L (17-59); BLOOD UREA NITROGEN 28 mg/dL (7-21); GFR NON-AFRICAN AMERICAN > 60
[2018-01-29 16:31] LABS: PARTIAL THROMBOPLASTIN TIME 45.8 Seconds (25.1-36.5)
[2018-01-29 16:39] LABS: B-TYPE NATRIURETIC PEPTIDE 1010 pg/mL (0-450); TROPONIN I 0.06 ng/mL
[2018-01-29 16:40] LABS: PROTHROMBIN TIME 63.3 SECONDS (9.4-12.5)
[2018-01-29 16:42] LABS: INR 5.37
[2018-01-29] MEDS ORDERED: Albuterol-Ipratrop 3 mg / 0.5 (3 ml) UD IH PRN (18:18)
[2018-01-29] MEDS: Oxycodone/Acetaminophen 10/325 mg Tab PO PRN (18:18)
[2018-01-29] MEDS ORDERED: Magnesium Oxide 400 mg Tab UD PO ONE (18:19)
--- NOTE | 2018-01-29 19:21 | CARD ---
APPROVED REPORT Date of service: 01/29/2018 EKG Measurement Heart [id number] [id number] <Conclusion> Ventricular paced rhythm with occasional premature ventricular complexes. Underlying atrial fibrillation. Abnormal ECG
[2018-01-29] MEDS ORDERED: Insulin Reg-HIGH-Coverage SC SCH (22:00)
[2018-01-29] MEDS: Albuterol-Ipratrop 3 mg / 0.5 (3 ml) UD IH SCH (22:55)
[2018-01-30] MEDS: Albuterol-Ipratrop 3 mg / 0.5 (3 ml) UD IH SCH ×3 (07:29→20:40)
[2018-01-30 07:33] LABS: PROTHROMBIN TIME 44.8 SECONDS (9.4-12.5)
[2018-01-30 07:35] LABS: INR 3.79
--- NOTE | 2018-01-30 08:33 | CP.PCM.HP ---
<Genesis Chambers - Last Filed: 01/30/18 11:53> History of Present Illness - History of Present Illness History of Present Illness: Genesis Chambers DO, PGY-2: HPI for Dr. Villagomez 57 year old male with a past medical history of CHF secondary to systolic dysfunction, obesity, CAD s/p 2 stents, DM II, atrial fibrillation on Coumadin, and COPD on 3 L of home oxygen who presents with shortness of breath while walking and some associated chest tightness. He reports he got off the light rail yesterday and was only able to walk one block and then having to rest. When specifically asked why he stopped walking after each block, he replied that his left hip hurt and he got out of breath. He denies any pressure like chest pain, nausea, vomiting, production of sputum, or absence of any of his prescribed medication. He also denies fever, chills, dysuria, paroxysmal nocturnal dyspnea, visual changes, auditory changes, unilateral weakness or numbness. At the time of my examination this morning, the patient is speaking in full sentences, has no chest pain, and in no respiratory distress. PMH: As above Surgical Hx: Gastric bypass, left leg thrombectomy Family Hx: Noncontributory Social Hx: Former smoker, denies alcohol or illicit drug use Allergies: Seroquel and berries Medications: Reviewed, As per MAR Present on Admission - Present on Admission Any Indicators Present on Admission: Yes History of DVT/PE: Yes Review of Systems - Review of Systems All systems: reviewed and no additional remarkable complaints except (as per HPI) Past Patient History - Infectious Disease Hx of Infectious Diseases: None - Tetanus Immunizations Tetanus Immunization: Unknown - Past Medical History & Family History Past Medical History?: Yes - Past Social History Smoking Status: Former Smoker - CARDIAC Hx Cardiac Disorders: Yes Hx Angina: Yes Hx Cardia Arrhythmia: Yes Hx Circulatory Problems: Yes Hx Congestive Heart Failure: Yes Hx Hypercholesterolemia: Yes Hx Hypertension: Yes Hx Internal Defibrillator: Yes Hx Pacemaker: Yes Hx Peripheral Edema: Yes Hx Peripheral Vascular Disease: Yes - PULMONARY Hx Respiratory Disorders: Yes Hx Bronchitis: Yes Hx Chronic Obstructive Pulmonary Disease (COPD): Yes Hx Emphysema: Yes Hx Pneumonia: Yes Hx Respiratory Tract Infection: Yes Hx Sleep Apnea: Yes - NEUROLOGICAL Hx Neurological Disorder: Yes Hx Dizziness: Yes - HEENT Hx HEENT Problems: Yes Hx Blind: Yes (HX eye sugery) Hx Deafness: Yes - RENAL Hx Chronic Kidney Disease: No - ENDOCRINE/METABOLIC Hx Endocrine Disorders: Yes Hx Adrenal Cancer: Yes Hx Diabetes Mellitus Type 2: Yes - HEMATOLOGICAL/ONCOLOGICAL Hx Blood Disorders: No - INTEGUMENTARY Hx Dermatological Problems: No - MUSCULOSKELETAL/RHEUMATOLOGICAL Hx Musculoskeletal Disorders: Yes Hx Arthritis: Yes Hx Falls: Yes Hx Fractures: Yes Hx Osteoarthritis: Yes Hx Unsteady Gait: Yes - GASTROINTESTINAL Hx Gastrointestinal Disorders: Yes (gastric bypass surgery) Hx Gastroesophageal Reflux: Yes - GENITOURINARY/GYNECOLOGICAL Hx Genitourinary Disorders: Yes - PSYCHIATRIC Hx Psychophysiologic Disorder: Yes Hx Anxiety: Yes Hx Bipolar Disorder: Yes Hx Depression: Yes Hx Substance Use: No - SURGICAL HISTORY Hx Surgeries: Yes Hx Cardiac Catheterization: Yes Hx Coronary Stent: Yes Hx Gastric Bypass Surgery: Yes - ANESTHESIA Hx Anesthesia: Yes Hx Anesthesia Reactions: No Hx Malignant Hyperthermia: No Meds Allergies/Adverse Reactions: Allergies Allergy/AdvReac Type Severity Reaction Status Date / Time quetiapine fumarate AdvReac ANAPHYLAXIS Verified 01/16/18 20:03 [From Seroquel] wild berries Allergy Intermediate RASH Uncoded 01/16/18 20:03 Physical Exam - Constitutional Appears: Non-toxic, No Acute Distress - Head Exam Head Exam: ATRAUMATIC, NORMOCEPHALIC - Eye Exam Eye Exam: EOMI, Normal appearance - ENT Exam ENT Exam: Mucous Membranes Moist - Neck Exam Neck exam: Positive for: Normal Inspection - Respiratory Exam Respiratory Exam: Rales, NORMAL BREATHING PATTERN. absent: Accessory Muscle Use - Cardiovascular Exam Cardiovascular Exam: RRR, +S1, +S2 - GI/Abdominal Exam GI & Abdominal Exam: Normal Bowel Sounds, Soft. absent: Guarding, Rebound - Extremities Exam Extremities exam: Positive for: normal inspection. Negative for: calf tenderness - Neurological Exam Neurological exam: Alert, CN II-XII Intact, Oriented x3 - Psychiatric Exam Psychiatric exam: Normal Affect, Normal Mood - Skin Skin Exam: Dry, Intact, Normal Color, Warm Results - Vital Signs Recent Vital Signs: Last Vital Signs Temp 97.9 F 01/30/18 06:00 Pulse 70 01/30/18 06:00 Resp 20 01/30/18 06:00 BP 100/65 01/30/18 06:00 Pulse Ox 95 01/30/18 06:00 - Labs Result Diagrams: 01/29/18 16:09 01/29/18 16:09 Labs: Laboratory Results - last 24 hr 01/29/18 01/29/18 01/29/18 16:09 16:09 16:09 WBC 11.5 H RBC 4.16 Hgb 12.2 L D Hct 36.6 L MCV 88.0 MCH 29.3 MCHC 33.3 RDW 17.0 H Plt Count 188 MPV 9.8 Gran % 83.9 H Lymph % (Auto) 9.2 L [place] % (Auto) 4.9 Eos % (Auto) 1.6 Baso % (Auto) 0.4 Gran # 9.69 H Lymph # (Auto) 1.1 L [place] # (Auto) 0.6 Eos # (Auto) 0.2 Baso # (Auto) 0.05 PT 63.3 H INR 5.37 H* APTT 45.8 H Sodium 136 Potassium 4.8 Chloride 101 Carbon Dioxide 25 Anion Gap 15 BUN 28 H Creatinine 1.2 Est GFR ( Amer) > 60 Est GFR (Non-Af Amer) > 60 Random Glucose 289 H Calcium 9.0 Magnesium 1.6 L Total Bilirubin 0.6 AST 23 ALT 29 Alkaline Phosphatase 81 Lactate Dehydrogenase 445 Total Creatine Kinase 90 Troponin I 0.06 NT-Pro-B Natriuret Pep 1010 H Total Protein 6.5 Albumin 3.7 Globulin 2.8 Albumin/Globulin Ratio 1.3 01/30/18 07:00 WBC RBC Hgb Hct MCV MCH MCHC RDW Plt Count MPV Gran % Lymph % (Auto) [place] % (Auto) Eos % (Auto) Baso % (Auto) Gran # Lymph # (Auto) [place] # (Auto) Eos # (Auto) Baso # (Auto) PT 44.8 H INR 3.79 H* APTT Sodium Potassium Chloride Carbon Dioxide Anion Gap BUN Creatinine Est GFR ( Amer) Est GFR (Non-Af Amer) Random Glucose Calcium Magnesium Total Bilirubin AST ALT Alkaline Phosphatase Lactate Dehydrogenase Total Creatine Kinase Troponin I NT-Pro-B Natriuret Pep Total Protein Albumin Globulin Albumin/Globulin Ratio - EKG Data EKG Interpreted by: Myself Rate: Normal - EKG Data EKG comments: ventricular paced rhythm Assessment & Plan - Assessment and Plan (Free Text) Assessment: 57 year old male with a past medical history of CHF secondary to systolic dysfunction, CAD s/p 2 stents, DM II, atrial fibrillation on Coumadin, and COPD who presents with shortness of breath with exertion and associated chest tightness Plan: 1) Dyspnea on exertion, rule out ACS - Trend troponins, initial negative - Initial EKG showed ventricular paced rhythm - Cardiology consulted 2) CHF secondary to systolic HF - Lisinopril 2.5 mg - Furosemide 80 mg BID - Metazolone 5 mg PO MWF - Spirinolactone 25 mg BID - Cardiology Consulted, Dr. Rajan 3) Supratherapeutic INR - Initial INR was 5.37, this morning it was 3.79 - Coumadin held 4) COPD exacerbation - Solumedrol 40 mg IVP - Duoneb TID WILTON - Monteleukast 10 mg HS 5) Lower extremity swelling in right leg greater than right - LE duplex venous US performed, pending interpretation 6) Atrial fibrillation - Diltiazem 30 mg BID - Coumadin held due to supratherapeutic INR 7) DM II - Continue home Sulfonylurea - ISS lispro high - Hold metformin 8) RLS - Continue Requip 9) Peripheral Neuropathy - Gabapentin 300 mg BID 10) Hypomagnesmia - Mg was low on admission - Magnesium Oxide 400 TID 11) DVT/GI prophylaxis - SCD - Protonix 40 mg daily Case was reviewed and discussed with attending physician, Dr. Villagomez - Date & Time Date: 01/30/18 Time: 11:58 <Axel Villagomez S - Last Filed: 01/30/18 19:29> Results - Vital Signs Recent Vital Signs: Last Vital Signs Temp 97.7 F 01/30/18 17:14 Pulse 70 01/30/18 18:37 Resp 20 01/30/18 17:14 BP 105/62 01/30/18 18:37 Pulse Ox 95 01/30/18 06:00 - Labs Result Diagrams: 01/29/18 16:09 01/30/18 12:25 Labs: Laboratory Results - last 24 hr 01/30/18 01/30/18 01/30/18 07:00 09:20 10:41 PT 44.8 H INR 3.79 H* POC Glucose (mg/dL) > 500 H* Random Glucose Troponin I 0.06 01/30/18 01/30/18 01/30/18 12:17 12:25 16:22 PT INR POC Glucose (mg/dL) 419 H* 350 H Random Glucose 528 H* D Troponin I Assessment & Plan - Assessment and Plan (Free Text) Assessment: Pt seen and examined. I have reviewed the note of the medical typist and agree with it. I have discussed the assessment and plan with the resident. I have re viewed the patient's labs and medications. Pt with SOB and is on Steroids. He has a COPD acute exacerbation. He will be placed on Duoneb. Will get Dr Rajan to evaluate the pt. Pt with R leg swelling and will need a venous doppler. He will continue with Lasix and Metalozone for CHF. Low Mg will get replaced. Pt with R hip pain. Will get Ortho evaluation. Will continue with Gabapentin for peripheral neuropathy.
[2018-01-30] MEDS ORDERED: metOLazone 5 MG TAB PO SCH (10:00)
[2018-01-30] MEDS ORDERED: MethylPREDNISolone 40 mg Vial IVP SCH (10:00)
[2018-01-30] MEDS: Oxycodone/Acetaminophen 10/325 mg Tab PO PRN (10:24)
[2018-01-30] MEDS: Magnesium Oxide 400 mg Tab UD PO SCH ×3 (10:30→18:37)
[2018-01-30] MEDS ORDERED: Insulin Regular 1 UNITS/0.01 ML ML SC STA ×2 (11:18→11:21)
--- NOTE | 2018-01-30 12:59 | CON ---
DATE: 01/30/2018 LOCATION: The patient is in room 266, bed 2. REASON FOR CONSULTATION: Shortness of breath, history of CHF, COPD, status post AICD insertion, atrial fibrillation paroxysmal type, hip pain. HISTORY OF PRESENT ILLNESS: The patient is a 57-year-old male who has a past history significant for paroxysmal atrial fibrillation, nonischemic cardiomyopathy, nonobstructive coronary artery disease, cardiac catheterization x3, status post AICD placement, status post radiofrequency ablation for atrial fibrillation, but now today's EKG is showing atrial fibrillation with pacemaker rhythm. He states that he was walking and he has right hip pain and he was putting a lot of strain in walking because of pain in the right hip and then he developed shortness of breath while exerting himself. He also had 1 episode of few seconds of sharp chest and back pain. As mentioned before, the patient had catheterization x3, nonobstructive coronary artery disease. The patient also is morbidly obese, bipolar depression, anxiety disorder, diabetes, hypertension, hyperlipidemia, AICD placement, COPD. The patient recently also stated that a few days ago he had cold-like symptoms. PAST SURGICAL HISTORY: Significant for gastric bypass for obesity, status post AICD insertion, history of thrombectomy from left lower extremity and PTCA of left SFA and popliteal trunk, history of DVT, history of catheter-based treatment for right DVT of lower extremity, history of cardiac catheterization x3, nonobstructive coronary artery disease, history of radiofrequency ablation for atrial fibrillation, recent cardiac workup, the patient had echocardiogram on 05/31/2017, which showed LV ejection fraction around 35%, mild mitral regurgitation, mild tricuspid regurgitation. PERSONAL HISTORY: The patient states that he stopped smoking more than 15 years ago and he stopped drinking more than 25 years ago. MEDICATIONS: The patient's list of home medications; Desyrel 150 mg by mouth at bedtime, Requip 0.5 mg by mouth at bedtime, Zaroxolyn 5 mg by mouth Sunday, Sunday, Sunday, Cardizem 30 mg by mouth two times a day, warfarin 7 mg by mouth daily, spironolactone 25 mg two times a day, Percocet 10/325 mg 1 tablet every 12 hours, Singulair 10 mg at bedtime, metformin 1000 mg two times a day, lisinopril 2.5 mg by mouth daily, Ativan 1 mg by mouth two times a day as needed, glimepiride 4 mg by mouth daily, gabapentin 300 mg by mouth two times a day, furosemide 80 mg by mouth two times a day, Pletal 100 mg by mouth two times a day, DuoNeb hand nebulizer therapy, REVIEW OF SYSTEMS: All the systems reviewed. Positive mentioned in the history, others are negative. ALLERGIES: THE PATIENT DENIES ANY ALLERGIES. PHYSICAL EXAMINATION VITAL SIGNS: Blood pressure 113/66, respirations 20, pulse is 69, temperature 97.9. HEENT: Head is normocephalic. Eyes, pupils normal. Conjunctivae normal. Nose and throat normal. NECK: JVP low. Carotids equal. THORAX: AP diameter normal. AICD in place. LUNGS: No rales. CARDIOVASCULAR: S1, S2. ABDOMEN: Markedly protuberant. No organomegaly. Bowel sounds normal. EXTREMITIES: The patient has slight edema in the legs bilaterally, right more than the left. The patient also has varicose vein more on the right. So, part of edema probably is venous stasis. LABORATORY DATA: WBC 11.5, hemoglobin 12.2, hematocrit 36.6, platelet 188,000. Sodium 136, potassium 4.8, BUN 28, creatinine 1.2. Sugar random 338. Magnesium 1.6. AST, ALT normal. Total troponin 0.06 and 0.06. YW-esm-X-natriuretic peptide 1010. Total protein and albumin normal. Prothrombin time and INR on admission 63.3 and INR 5.37. Today, the prothrombin time is 44.8 with INR 3.79. PTT on admission was 45.8. DIAGNOSTIC DATA: Chest x-ray showed cardiomegaly, otherwise lungs are clear. EKG showed pacemaker rhythm with PVC, underlying rhythm is atrial fibrillation. DIAGNOSES: Shortness of breath exacerbation with COPD, history of ischemic cardiomyopathy, systolic dysfunction of LV, status post AICD insertion, morbid obesity, diabetes, hypertension, hyperlipidemia, history of peripheral arterial disease, history of nonobstructive coronary artery disease, cardiac catheterization x3, history of paroxysmal atrial fibrillation, the patient's today's EKG also showing atrial fibrillation, underlying the pacemaker rhythm, history of radiofrequency ablation for atrial fibrillation, history of AICD insertion, history of gastric bypass surgery for obesity, edema of both legs, probably venous stasis, COPD, 1 episode of sharp chest pain second is probably nonspecific, most likely musculoskeletal pain, the patient is status post cardiac catheterization 3 times, nonobstructive coronary artery disease, Coumadin toxicity with prolonged prothrombin time and INR. PLAN: Continue to hold Coumadin. Repeat PT, INR. We will try to keep prothrombin time between 2 and 2.5. The patient's magnesium is 1.6. We will give magnesium sulfate therapy. The patient is on spironolactone 25 mg two times a day, Amaryl 4 mg by mouth daily, lorazepam 1 mg two times a day as needed, diltiazem 30 mg two times a day, warfarin is on hold as mentioned before, DuoNeb hand nebulizer therapy, insulin as ordered, furosemide 80 mg by mouth two times a day, magnesium oxide 400 mg by mouth once was given, now the patient is getting 400 mg by mouth three times a day, Neurontin 300 mg two times a day, Requip 0.5 mg by mouth at bedtime, Singulair 10 mg at bedtime, the patient received methylprednisolone mg IV stat and now he is on 40 mg IV daily, metolazone 5 mg by mouth Sunday, Sunday, Sunday, lisinopril 2.5 mg by mouth daily. Venous Doppler of both legs have been ordered already. Repeat SMA-7, magnesium, phosphorus in the morning. Advised the patient again to lose weight. Complaining of right hip pain. We will follow closely with you. Tia Cabello MD (Delete this signature block when dictator is a preceptor.) cc: MD Christa (Delete if not dictated.)
[2018-01-30] MEDS: Insulin Regular 1 UNITS/0.01 ML ML SC SCH ×2 (13:47→21:42)
--- NOTE | 2018-01-30 15:20 | CT ---
Date of service: 01/30/2018 PROCEDURE: CT of the hips bilaterally HISTORY: pain rt >lt hip COMPARISON: TECHNIQUE: Radiation dose: Total exam DLP = 2122.36 mGy-cm. This CT exam was performed using one or more of the following dose reduction techniques: Automated exposure control, adjustment of the mA and/or kV according to patient size, and/or use of iterative reconstruction technique. FINDINGS: There is no evidence of fracture. There is severe joint space narrowing in the right hip. There is bony sclerosis and osteophyte formation. There is mild joint space narrowing in the left hip. IMPRESSION: Severe degenerative changes in the right hip
--- NOTE | 2018-01-30 18:30 | US ---
PROCEDURE: Right lower extremity venous US HISTORY: Leg pain and swelling. Evaluate for DVT. PHYSICIAN(S): John Paul Cannon M.D. TECHNIQUE: Duplex sonography and color-flow Doppler with graded compression were used to evaluate the deep venous system of the right lower extremity. FINDINGS: The visualized deep venous system of the right lower extremity is sonographically normal and compressible. Normal waveforms and augmentation are seen. There is no sonographic evidence for deep venous thrombosis in the visualized segments of the right lower extremity. IMPRESSION: 1. No sonographic evidence for deep venous thrombosis in the visualized segments of the right lower extremity.
[2018-01-30] MEDS: Insulin Lispro (HUMAlog) HIGH Coverage SC SCH ×2 (18:38→21:40)
--- NOTE | 2018-01-31 01:35 | CON ---
DATE: 01/30/2018 ORTHOPEDIC REPORT LOCATION: Room 266, bed 2. HISTORY OF PRESENT ILLNESS: The patient is a 57-year-old male with right hip pain. I was asked to see him by Dr. Villagomez. He has a very stiff right hip, less so on the left hip, and I just had an x-ray and it shows erosive arthritis with decreased joint space at the lateral acetabulofemoral area of the right hip. He is requesting a total hip replacement. He has multiple comorbidities which will make it difficult, but it can be done if he is medically cleared from his medical issues. He has to see a pulmonary doctor, cardiac doctor, and a medical doctor to get cleared for surgery. I do not need to do the surgery [facility] where it is much more help for the extensive surgery and he has to be cleared by Pulmonary, Cardiac, and Medical Service. Hopefully, we could perform this surgery when he is medically cleared for surgery for right hip replacement. He was told of the risks and benefits. FINAL DIAGNOSIS: Advanced osteoarthritis of his right hip, which would require a total hip replacement to get him out of his pain and would increase his ability to ambulate. Wes Capellan DO
[2018-01-31 06:37] LABS: INR 2.83; PROTHROMBIN TIME 33.2 SECONDS (9.4-12.5)
[2018-01-31 06:52] LABS: CALCIUM 9.1 mg/dL (8.4-10.5)
[2018-01-31] MEDS: Albuterol-Ipratrop 3 mg / 0.5 (3 ml) UD IH SCH ×3 (07:17→20:05)
[2018-01-31] MEDS: Oxycodone/Acetaminophen 10/325 mg Tab PO PRN (07:39)
[2018-01-31] MEDS: Insulin Lispro 1 UNITS/0.01 ML SC SCH ×3 (08:30→17:01)
[2018-01-31] MEDS: Magnesium Oxide 400 mg Tab UD PO SCH ×3 (09:19→17:02)
[2018-01-31] MEDS: MethylPREDNISolone 40 mg Vial IVP SCH (09:20)
--- NOTE | 2018-01-31 09:46 | CP.PCM.PN ---
Subjective - Date & Time of Evaluation Date of Evaluation: 01/31/18 Time of Evaluation: 06:40 - Subjective Subjective: Awake, sitting on chair, no distress Reason for consultation and follow up:Cardiac evaluation for shortness of breath, history of CHF,COPD, post AICD, atrial fibrillation, hip pain Seen and examined by me and Dr. Rajan Objective - Vital Signs/Intake and Output Vital Signs (last 24 hours): Temp Pulse Resp BP Pulse Ox 98 F 79 20 95/55 L 96 01/31/18 05:58 01/31/18 09:18 01/31/18 05:58 01/31/18 09:18 01/31/18 05:58 Intake and Output: 01/31/18 01/31/18 06:59 18:59 Intake Total 720 Balance 720 - Medications Medications: Current Medications Albuterol/Ipratropium (Duoneb 3 Mg/0.5 Mg (3 Ml) Ud) 3 ml IH TIDRESP [facility] Last Admin: 01/31/18 07:17 Dose: Not Given Diltiazem HCl (Cardizem) 30 mg PO BID [facility] Last Admin: 01/30/18 18:37 Dose: 30 mg Furosemide (Lasix) 80 mg PO BID [facility] Last Admin: 01/30/18 18:37 Dose: 80 mg Gabapentin (Neurontin) 300 mg PO BID [facility]; Protocol Last Admin: 01/31/18 09:20 Dose: 300 mg Glimepiride (Amaryl) 4 mg PO DAILY [facility] Last Admin: 01/30/18 10:32 Dose: 4 mg Insulin Detemir (Levemir) 20 unit SC HS [facility] Insulin Human Lispro (Humalog) 6 units SC AC [facility] Last Admin: 01/31/18 08:30 Dose: 6 units Lisinopril (Zestril) 2.5 mg PO DAILY [facility] Last Admin: 01/31/18 09:18 Dose: 2.5 mg Lorazepam (Ativan) 1 mg PO BID PRN; Protocol PRN Reason: Anxiety Last Admin: 01/30/18 21:49 Dose: 1 mg Magnesium Oxide (Mag-Ox) 400 mg PO TID [facility] Last Admin: 01/31/18 09:19 Dose: 400 mg Methylprednisolone (Solu-Medrol) 20 mg IVP DAILY [facility] Last Admin: 01/31/18 09:20 Dose: 20 mg Metolazone (Zaroxolyn) 5 mg PO MWF [facility] Last Admin: 01/30/18 10:32 Dose: 5 mg Montelukast Sodium (Singulair) 10 mg PO [facility] Last Admin: 01/30/18 21:30 Dose: 10 mg Oxycodone/Acetaminophen (Percocet 10/325 Mg Tab) 1 tab PO Q6H PRN PRN Reason: Pain, severe (8-10) Last Admin: 01/31/18 07:39 Dose: 1 tab Ropinirole HCl (Requip) 0.5 mg PO [facility] Last Admin: 01/30/18 21:29 Dose: 0.5 mg Sodium Chloride ([place] Nasal Bessie) 1 ml NS Q8 [facility] Last Admin: 01/31/18 09:14 Dose: 1 spry Spironolactone (Aldactone) 25 mg PO BID [facility] Last Admin: 01/31/18 09:19 Dose: 25 mg Trazodone HCl (Desyrel) 150 mg PO [facility] Warfarin Sodium (Coumadin) 4 mg PO 1800 [facility] - Labs Labs: 01/29/18 16:09 01/31/18 06:00 PT 33.2 SECONDS (9.4-12.5) H 01/31/18 06:00 INR 2.83 01/31/18 06:00 APTT 45.8 Seconds (25.1-36.5) H 01/29/18 16:09 - Constitutional Appears: Non-toxic, No Acute Distress - Head Exam Head Exam: NORMAL INSPECTION, NORMOCEPHALIC - Eye Exam Eye Exam: Normal appearance Pupil Exam: NORMAL ACCOMODATION - ENT Exam ENT Exam: Mucous Membranes Moist, Normal Exam - Respiratory Exam Respiratory Exam: Decreased Breath Sounds, Clear to Ausculation Bilateral, NORMAL BREATHING PATTERN - Cardiovascular Exam Cardiovascular Exam: Irregular Rhythm, +S1, +S2 Additional comments: AICD Telemetry atrial fibrillation - GI/Abdominal Exam GI & Abdominal Exam: Soft, Normal Bowel Sounds - Extremities Exam Extremities Exam: Full ROM Additional comments: 1-2+ edema - Neurological Exam Neurological Exam: Alert, Awake, Oriented x3 - Psychiatric Exam Psychiatric exam: Normal Affect, Normal Mood - Skin Skin Exam: Dry, Normal Color, Warm Assessment and Plan - Assessment and Plan (Free Text) Assessment: A 57 year old male obese who came in to the ER due to shortness of breath. with chest tightness. History of CHF secondary to systolic dysfunction,non ischemic cardiomyopathy,hypertension, hyperlipidemia, periphral vascular disease, obesity, DVT, CAD s/p 2 stents, DM II, atrial fibrillation on Coumadin, history of radiofrequency ablation,gastric bypass, and COPD on 3 L of home oxygen. Also complaints of hip pain.Non specific chest pain likely muskuloskeletal as he is also complaining of right hip pain due to osteoarthritis. Denies chest pain and shortness of breath now. Plan: Atypical chest pain ,denies chest pain now,denies shortness of breath Will treat conservatively medically Ortho on consult for right hip pain Heart rate and blood pressure controlled On Cardizem 30 mg BID,Lasix 80 mg BID,Lisinopril 2.5 mg daily, Zarozylyn 5 mg MWF,Aldactone 25 mg BID,Coumadin 4 mg daily. Continue current medications Continue current treatment Chart reviewed Will follow up Plan and treatment discussed with Dr. Rajan
--- NOTE | 2018-01-31 10:02 | CP.PCM.PN ---
<Genesis Chambers - Last Filed: 01/31/18 10:06> Subjective - Date & Time of Evaluation Date of Evaluation: 01/31/18 Time of Evaluation: 07:00 - Subjective Subjective: Genesis Chambers DO, PGY-2: Progress Note for Dr. Villagomez Patient was seen and examined at bedside. Patient reports his breathing is somewhat better. He denies fever and chills. No adverse events overnight. Objective - Vital Signs/Intake and Output Vital Signs (last 24 hours): Temp Pulse Resp BP Pulse Ox 98 F 79 20 95/55 L 96 01/31/18 05:58 01/31/18 09:18 01/31/18 05:58 01/31/18 09:18 01/31/18 05:58 Intake and Output: 01/31/18 01/31/18 06:59 18:59 Intake Total 720 Balance 720 - Medications Medications: Current Medications Albuterol/Ipratropium (Duoneb 3 Mg/0.5 Mg (3 Ml) Ud) 3 ml IH TIDRESP [facility] Last Admin: 01/31/18 07:17 Dose: Not Given Diltiazem HCl (Cardizem) 30 mg PO BID [facility] Last Admin: 01/30/18 18:37 Dose: 30 mg Furosemide (Lasix) 80 mg PO BID [facility] Last Admin: 01/30/18 18:37 Dose: 80 mg Gabapentin (Neurontin) 300 mg PO BID [facility]; Protocol Last Admin: 01/31/18 09:20 Dose: 300 mg Glimepiride (Amaryl) 4 mg PO DAILY [facility] Last Admin: 01/30/18 10:32 Dose: 4 mg Insulin Detemir (Levemir) 20 unit SC HS [facility] Insulin Human Lispro (Humalog) 6 units SC AC [facility] Last Admin: 01/31/18 08:30 Dose: 6 units Lisinopril (Zestril) 2.5 mg PO DAILY [facility] Last Admin: 01/31/18 09:18 Dose: 2.5 mg Lorazepam (Ativan) 1 mg PO BID PRN; Protocol PRN Reason: Anxiety Last Admin: 01/30/18 21:49 Dose: 1 mg Magnesium Oxide (Mag-Ox) 400 mg PO TID [facility] Last Admin: 01/31/18 09:19 Dose: 400 mg Methylprednisolone (Solu-Medrol) 20 mg IVP DAILY [facility] Last Admin: 01/31/18 09:20 Dose: 20 mg Metolazone (Zaroxolyn) 5 mg PO MWF [facility] Last Admin: 01/30/18 10:32 Dose: 5 mg Montelukast Sodium (Singulair) 10 mg PO HS [facility] Last Admin: 01/30/18 21:30 Dose: 10 mg Oxycodone/Acetaminophen (Percocet 10/325 Mg Tab) 1 tab PO Q6H PRN PRN Reason: Pain, severe (8-10) Last Admin: 01/31/18 07:39 Dose: 1 tab Ropinirole HCl (Requip) 0.5 mg PO [facility] Last Admin: 01/30/18 21:29 Dose: 0.5 mg Sodium Chloride ([place] Nasal [place]) 1 ml NS Q8 [facility] Last Admin: 01/31/18 09:14 Dose: 1 spry Spironolactone (Aldactone) 25 mg PO BID [facility] Last Admin: 01/31/18 09:19 Dose: 25 mg Trazodone HCl (Desyrel) 150 mg PO [facility] Warfarin Sodium (Coumadin) 4 mg PO 1800 [facility] - Labs Labs: 01/29/18 16:09 01/31/18 06:00 PT 33.2 SECONDS (9.4-12.5) H 01/31/18 06:00 INR 2.83 01/31/18 06:00 APTT 45.8 Seconds (25.1-36.5) H 01/29/18 16:09 - Constitutional Appears: Well, Non-toxic - Head Exam Head Exam: ATRAUMATIC, NORMOCEPHALIC - Eye Exam Eye Exam: EOMI, Normal appearance - ENT Exam ENT Exam: Mucous Membranes Moist - Neck Exam Neck Exam: Normal Inspection - Respiratory Exam Respiratory Exam: Rales, NORMAL BREATHING PATTERN. absent: Accessory Muscle Use - Cardiovascular Exam Cardiovascular Exam: RRR, +S1, +S2 - GI/Abdominal Exam GI & Abdominal Exam: Soft, Normal Bowel Sounds - Extremities Exam Extremities Exam: Pedal Edema. absent: Calf Tenderness - Neurological Exam Neurological Exam: Alert, Awake, Oriented x3 - Psychiatric Exam Psychiatric exam: Normal Affect, Normal Mood - Skin Skin Exam: Dry, Intact, Normal Color, Warm Assessment and Plan - Assessment and Plan (Free Text) Assessment: 57 year old male with a past medical history of CHF secondary to systolic dysfunction, CAD s/p 2 stents, DM II, atrial fibrillation on Coumadin, and COPD who presents with shortness of breath with exertion and associated chest tight ness Plan: 1) Dyspnea on exertion, rule out ACS - Trend troponins, initial negative - Initial EKG showed ventricular paced rhythm - Cardiology consulted, appreciate recommendations 2) CHF secondary to systolic HF - Lisinopril 2.5 mg - Furosemide 80 mg BID (held due to DORITA) - Metazolone 5 mg PO MWF (held due to DORITA) - Spirinolactone 25 mg BID (held due to DORITA) - Cardiology Consulted, Dr. Rajan 3) Supratherapeutic INR, resolved - INR is 2.87 today - Coumadin 4 mg today 4) COPD exacerbation - Solumedrol 20 mg IVP - Duoneb TID [facility] - Monteleukast 10 mg HS 5) Lower extremity swelling and right hip pain - Orthopedic consulted, CT hip shows severe degenerative changes in the right hip; recommends Total Knee replacement - LE duplex venous US negative for DVT 5a) Preoperative clearance - Cardiology and Pulmonology consulted 6) Atrial fibrillation - Diltiazem 30 mg BID - Coumadin 4 mg tonight 7) DM II - Levemir 20 mg SC HS - Lispro 6 mg AC - Fingerstick BG ACHS 8) RLS - Continue Requip 9) Peripheral Neuropathy - Gabapentin 300 mg BID 10) Hypomagnesmia - Mg was low on admission - Magnesium Oxide 400 TID 11) DVT/GI prophylaxis - SCD - Protonix 40 mg daily (discontinued) 12) DORITA - Holding diuretics - Will repeat CMP tomorrow - Avoid nephrotoxins Case was reviewed and discussed with attending physician, Dr. Villagomez <Axel Villagomez S - Last Filed: 01/31/18 14:17> Objective - Vital Signs/Intake and Output Vital Signs (last 24 hours): Temp Pulse Resp BP Pulse Ox 97.5 F L 70 18 97/62 L 96 01/31/18 12:00 01/31/18 12:00 01/31/18 12:00 01/31/18 12:00 01/31/18 05:58 Intake and Output: 01/31/18 01/31/18 06:59 18:59 Intake Total 720 Balance 720 - Medications Medications: Current Medications Albuterol/Ipratropium (Duoneb 3 Mg/0.5 Mg (3 Ml) Ud) 3 ml IH TIDRESP [facility] Last Admin: 01/31/18 13:26 Dose: Not Given Diltiazem HCl (Cardizem) 30 mg PO BID [facility] Last Admin: 01/31/18 09:20 Dose: 30 mg Furosemide (Lasix) 80 mg PO BID [facility] Last Admin: 01/30/18 18:37 Dose: 80 mg Gabapentin (Neurontin) 300 mg PO BID [facility]; Protocol Last Admin: 01/31/18 09:20 Dose: 300 mg Glimepiride (Amaryl) 4 mg PO DAILY [facility] Last Admin: 01/30/18 10:32 Dose: 4 mg Insulin Detemir (Levemir) 20 unit SC HS [facility] Insulin Human Lispro (Humalog) 6 units SC AC [facility] Last Admin: 01/31/18 11:34 Dose: 6 units Lisinopril (Zestril) 2.5 mg PO DAILY [facility] Last Admin: 01/31/18 09:18 Dose: 2.5 mg Lorazepam (Ativan) 1 mg PO BID PRN; Protocol PRN Reason: Anxiety Last Admin: 01/30/18 21:49 Dose: 1 mg Magnesium Oxide (Mag-Ox) 400 mg PO TID [facility] Last Admin: 01/31/18 14:04 Dose: 400 mg Methylprednisolone (Solu-Medrol) 20 mg IVP DAILY [facility] Last Admin: 01/31/18 09:20 Dose: 20 mg Metolazone (Zaroxolyn) 5 mg PO MWF [facility] Last Admin: 01/30/18 10:32 Dose: 5 mg Montelukast Sodium (Singulair) 10 mg PO [facility] Last Admin: 01/30/18 21:30 Dose: 10 mg Oxycodone/Acetaminophen (Percocet 10/325 Mg Tab) 1 tab PO Q6H PRN PRN Reason: Pain, severe (8-10) Last Admin: 01/31/18 07:39 Dose: 1 tab Ropinirole HCl (Requip) 0.5 mg PO [facility] Last Admin: 01/30/18 21:29 Dose: 0.5 mg Sodium Chloride ([place] Nasal [place]) 1 ml NS Q8 [facility] Last Admin: 01/31/18 14:04 Dose: 1 spry Spironolactone (Aldactone) 25 mg PO BID [facility] Last Admin: 01/31/18 09:19 Dose: 25 mg Trazodone HCl (Desyrel) 150 mg PO HS [facility] Warfarin Sodium (Coumadin) 4 mg PO 1800 [facility] Warfarin Sodium (Coumadin) 2 mg PO 1800 [facility]; Protocol Stop: 01/31/18 18:01 - Labs Labs: 01/29/18 16:09 01/31/18 06:00 PT 33.2 SECONDS (9.4-12.5) H 01/31/18 06:00 INR 2.83 01/31/18 06:00 APTT 45.8 Seconds (25.1-36.5) H 01/29/18 16:09 Assessment and Plan - Assessment and Plan (Free Text) Assessment: Pt seen and examined. I have reviewed the note of the medical scheduler and agree with it. I have discussed the assessment and plan with the resident. I have reviewed the patient's labs and medications. Pt with acute COPD and is on Steroids and Duoneb. Pt with DORITA and so I will hold his diuretics. Spoke to Ortho and pt will need elective R hip replacement for DJD. Pt is on Gabapentin for periperal neuropathy. Levemir and Lispro for DM-2. He is on Coumadin for A fib. Pt is being seen by Cardiology and Neurology.
--- NOTE | 2018-01-31 13:36 | CON ---
DATE: 01/31/2018 PULMONARY CONSULT REFERRING PHYSICIAN: Dr. Axel Villagomez REASON FOR CONSULTATION: Chronic lung disease, sleep apnea syndrome. HISTORY OF PRESENT ILLNESS: This is a 57-year-old gentleman well known to me from previous admission, multiple medical issues including cardiomyopathy, coronary artery disease, history of recurrent atrial fibrillation requiring ablation therapy in the past, has a pacemaker, chronic obstructive lung disease, obstructive sleep apnea syndrome, diabetes, hypertension, morbid obesity, noncompliant with the followup and medication, does not like CPAP , comes in with shortness of breath. Seen by Cardiology, also has a chronic right hip pain, presently unmanageable with pain medication. Seen by Orthopedic Surgery. No hemoptysis or emesis, no hematuria. PAST MEDICAL HISTORY: As per history present illness. ALLERGIES: TO SEROQUEL AND BERRIES. SOCIAL HISTORY: Former smoker and history of alcohol abuse. Also, history of substance abuse in the remote past. FAMILY HISTORY: No significant cardiopulmonary disease reported. MEDICATIONS: Presently, is on Aldactone 25 mg twice a day, glimepiride 4 mg daily, Ativan 1 mg twice a day p.r.n., Cardizem 30 mg twice a day, Coumadin 4 mg daily, also getting trazodone 150 mg at bedtime, DuoNeb every 8 hours., insulin coverage, Lasix 80 mg twice a day, Levemir 20 units subcu at bedtime, mag oxide 400 mg three times a day, gabapentin 300 mg twice a day and nasal saline every 8 hours, Percocet is 10/325 one tablet every 6 hours p.r.n., 0.5 mg at bedtime, Singulair 10 mg at bedtime, Solu-Medrol is 20 mg daily, Zaroxolyn is 5 mg Sunday, Sunday, Sunday, Zestril 2.5 mg daily. REVIEW OF SYSTEMS: No headache, no rhinitis. Breathing is better. Cough is improved. No chest pain. No nausea, no vomiting. No diarrhea. No abdominal pain. Does have some leg swelling. PHYSICAL EXAMINATION: GENERAL: No acute distress, sitting in a chair. VITAL SIGNS: Temperature is 98, heart rate 79, respiratory rate is 20, blood pressure 95/55, pulse of 96% on 2 liters nasal cannula. HEENT: Moist mucous membrane. Crowded airway, Mallampati score is 4. NECK: Supple. No JVD. LUNGS: Has a prolonged expiratory phase. HEART: S1 and S2. ABDOMEN: Soft, nontender, no organomegaly. EXTREMITIES: Does have edema of the both lower extremities. NEUROLOGIC: Awake, alert and follows simple commands. LABORATORY DATA: Shows hemoglobin 12.2, hematocrit 36.6, WBC 11.5, platelet count is 188,000. Last INR was 2.83 that was today. Sodium 133, potassium 4.6, chloride 94, bicarbonate 27, BUN 53, creatinine 1.6, glucose is 186, calcium is 9.1, phosphorus 6.0, magnesium 2.2. DIAGNOSTIC DATA: Had a chest x-ray done on admission in ER, which shows there is no active pulmonary infiltrate or effusion. He has a ultrasound of the extremities done which shows no sonographic evidence of DVT thrombus in the visualized segment of the right lower extremity. Also, had a hip CT done which shows severe degenerative changes in the right hip. IMPRESSION AND PLAN: Chronic obstructive lung disease, cardiomyopathy, pulmonary hypertension, coronary artery disease, atrial fibrillation, history of ablation therapy, history of automatic implantable cardioverter defibrillator, gastroesophageal reflux disease, hypertension, peripheral neuropathy, right hip degenerative changes. Pulmonary point of view, doing okay. We will continue IV steroids, inhaled bronchodilator, leukotriene inhibitors. The patient is encouraged to use CPAP. He is refusing to use it. 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 Being followed by Cardiology and primary care team. Concerning his orthopedic surgery. His pulmonary status is optimized. Of course need very close cardiopulmonary monitoring while sedated especially because of sleep apnea syndrome, pulmonary hypertension, cardiomyopathy as well as chronic lung disease. Thank you and we will follow with you. Tia Godinez MD
--- NOTE | 2018-01-31 13:42 | PN ---
DATE: 01/31/2018 REASON FOR CONSULTATION AND FOLLOWUP: Cardiac evaluation, admitted with atypical chest pain, history of AICD, history of atrial fibrillation, history of nonischemic cardiomyopathy. SUBJECTIVE: The patient denies any chest pain, shortness of breath. Complaining of right hip pain. He is being evaluated by Dr. Capellan, possibly for hip surgery after Thanksgiving at [facility]. This note is in addition to dictated by a nurse practitioner, Nel Pimentel. So far, no evidence of acute UT. Atypical chest pain, history of cardiac catheterization x3, nonobstructive coronary artery disease, cardiomyopathy, ejection fraction around 45%, history of AICD, history of atrial fibrillation. RECOMMENDATIONS: Continue anticoagulation. INR today is 2.83. We will start 2 mg Coumadin today and PT/INR tomorrow. We will discontinue telemetry. No evidence of acute UT. EKG shows V-paced rhythm with underlying AFib. The patient is cleared from a cardiology point of view to go for hip surgery with [id number] risk due to underlying comorbidity. Possible discharge to home. The patient has no evidence of acute UT, no evidence of arrhythmia besides underlying AFib, and no evidence of congestive heart failure. The patient is cleared to go for hip surgery with [id number] risk due to underlying comorbidity. Thank you Dr. Villagomez for providing us the opportunity in taking care of the patient. Tia Rajan MD (Delete this signature block when dictator is a preceptor.) cc: MD Christa (Delete if not dictated.)
[2018-01-31] MEDS ORDERED: Insulin Detemir 100 units/ml Vial (Levemir) SC SCH (22:00)
[2018-02-01 06:57] LABS: INR 1.85; PROTHROMBIN TIME 21.6 SECONDS (9.4-12.5)
[2018-02-01] MEDS: Albuterol-Ipratrop 3 mg / 0.5 (3 ml) UD IH SCH (07:32)
[2018-02-01] MEDS: Insulin Lispro 1 UNITS/0.01 ML SC SCH ×2 (07:49→11:54)
[2018-02-01 08:12] LABS: BLOOD UREA NITROGEN 51 mg/dL (7-21); CALCIUM 9.2 mg/dL (8.4-10.5); GFR NON-AFRICAN AMERICAN 57
[2018-02-01] MEDS: Magnesium Oxide 400 mg Tab UD PO SCH (09:08)
[2018-02-01] MEDS: MethylPREDNISolone 40 mg Vial IVP SCH (09:11)
[2018-02-01 09:58] VITALS: O2SAT 94
[2018-02-01] MEDS ORDERED: metOLazone 5 MG TAB PO SCH (10:00)
--- NOTE | 2018-02-01 11:22 | CP.PCM.DIS ---
<[email or web address] - Last Filed: 02/01/18 12:11> Provider - Provider Date of Admission: 01/30/18 15:12 Attending physician: Axel Villagomez MD Consults: Dr. Satinder Capellan Time Spent in preparation of Discharge (in minutes): 45 Hospital Course - Lab Results Lab Results: Most Recent Lab Values WBC 11.5 10^3/uL (4.5-11.0) H 01/29/18 16:09 RBC 4.16 10^6/uL (3.5-6.1) 01/29/18 16:09 Hgb 12.2 g/dL (14.0-18.0) L D 01/29/18 16:09 Hct 36.6 % (42.0-52.0) L 01/29/18 16:09 MCV 88.0 fl (80.0-105.0) 01/29/18 16:09 MCH 29.3 pg (25.0-35.0) 01/29/18 16:09 MCHC 33.3 g/dl (31.0-37.0) 01/29/18 16:09 RDW 17.0 % (11.5-14.5) H 01/29/18 16:09 Plt Count 188 10^3/uL (120.0-450.0) 01/29/18 16:09 MPV 9.8 fl (7.0-11.0) 01/29/18 16:09 Gran % 83.9 % (50.0-68.0) H 01/29/18 16:09 Lymph % (Auto) 9.2 % (22.0-35.0) L 01/29/18 16:09 [place] % (Auto) 4.9 % (1.0-6.0) 01/29/18 16:09 Eos % (Auto) 1.6 % (1.5-5.0) 01/29/18 16:09 Baso % (Auto) 0.4 % (0.0-3.0) 01/29/18 16:09 Gran # 9.69 (1.4-6.5) H 01/29/18 16:09 Lymph # (Auto) 1.1 (1.2-3.4) L 01/29/18 16:09 [place] # (Auto) 0.6 (0.1-0.6) 01/29/18 16:09 Eos # (Auto) 0.2 (0.0-0.7) 01/29/18 16:09 Baso # (Auto) 0.05 K/mm3 (0.0-2.0) 01/29/18 16:09 PT 21.6 SECONDS (9.4-12.5) H 02/01/18 06:20 INR 1.85 02/01/18 06:20 APTT 45.8 Seconds (25.1-36.5) H 01/29/18 16:09 Sodium 133 mmol/L (132-148) 02/01/18 06:20 Potassium 4.7 mmol/L (3.6-5.0) 02/01/18 06:20 Chloride 95 mmol/L (98-107) L 02/01/18 06:20 Carbon Dioxide 26 mmol/L (21-33) 02/01/18 06:20 Anion Gap 14 (10-20) 02/01/18 06:20 BUN 51 mg/dL (7-21) H 02/01/18 06:20 Creatinine 1.3 mg/dl (0.8-1.5) 02/01/18 06:20 Est GFR ( Amer) > 60 02/01/18 06:20 Est GFR (Non-Af Amer) 57 02/01/18 06:20 POC Glucose (mg/dL) 291 mg/dL (65-110) H 02/01/18 01:57 Random Glucose 256 mg/dL (70-110) H 02/01/18 06:20 Hemoglobin A1c 9.5 % (4.2-6.5) H 01/30/18 12:00 Calcium 9.2 mg/dL (8.4-10.5) 02/01/18 06:20 Phosphorus 6.0 mg/dL (2.5-4.5) H 01/31/18 06:00 Magnesium 2.2 mg/dL (1.7-2.2) 01/31/18 06:00 Total Bilirubin 0.6 mg/dL (0.2-1.3) 01/29/18 16:09 AST 23 U/L (17-59) 11/13/18 16:09 ALT 29 U/L (7-56) 01/29/18 16:09 Alkaline Phosphatase 81 U/L (38-126) 01/29/18 16:09 Lactate Dehydrogenase 445 U/L (333-699) 01/29/18 16:09 Total Creatine Kinase 90 U/L (35-230) 01/29/18 16:09 Troponin I 0.06 ng/mL 01/30/18 09:20 NT-Pro-B Natriuret Pep 1010 pg/mL (0-450) H 01/29/18 16:09 Total Protein 6.5 g/dL (5.8-8.3) 01/29/18 16:09 Albumin 3.7 g/dL (3.0-4.8) 01/29/18 16:09 Globulin 2.8 gm/dL 01/29/18 16:09 Albumin/Globulin Ratio 1.3 (1.1-1.8) 01/29/18 16:09 - Hospital Course Hospital Course: Genesis Chambers DO, PGY-2: HPI for Dr. Villagomez 57 year old male with a past medical history of CHF secondary to systolic dysfunction, obesity, CAD s/p 2 stents, DM II, atrial fibrillation on Coumadin, and COPD on 3 L of home oxygen who presents with shortness of breath while walking with some associated chest tightness and right hip pain. He was admitted for chest pain- rule out ACS, hip pain, COPD exacerbation, and a supratherapeutic INR. EKG showed a paced ventricular rhythm with no ST-T wave changes consistent with ischemia. Troponins x 2 were negative. Cardiology was consulted and recommended medical management. For the patient's COPD he was kept on Duonebs TID, IV steroids that were tapered, and Singulair 10 mg. For the patient's hip pain orthopedics were consulted and performed a CT of the hip that showed severe degenerative changes. Dr. Capellan recommended a total right hip replacement that he would like to perform at [facility] [place]. For the patient supratherapeutic INR his Coumadin was held. He had no bleeding. Complications during the patient's hospital course were uncontrolled blood sugar with an HbgA1c of 9.5. He was started on insulin therapy and the special events planner came to talk to the patient. The patient reported he was not comfortable with starting insulin with syringes, but indicated he was comfortable with using insulin pens. The patient reports that in one to two days he will be receiving Pharmaceutical Assistance to the Aged and Disabled through the [facility] and he will be able to get the insulin pens for 7 USD. He was given strict follow up instructions with his PMD and his orthopedic physician. He was discharged with the below written instructions, prescriptions, and recommendations. - Date & Time of H&P Date of H&P: 02/01/18 Time of H&P: 11:42 Discharge Exam - Head Exam Head Exam: NORMAL INSPECTION, NORMOCEPHALIC - Eye Exam Eye Exam: EOMI, Normal appearance - ENT Exam ENT Exam: Mucous Membranes Moist, Normal Oropharynx - Neck Exam Neck exam: Normal Inspection - Respiratory Exam Respiratory Exam: Clear to PA & Lateral, NORMAL BREATHING PATTERN. absent: Accessory Muscle Use - Cardiovascular Exam Cardiovascular Exam: RRR, +S1, +S2 - GI/Abdominal Exam GI & Abdominal Exam: Normal Bowel Sounds - Extremities Exam Extremities exam: pedal edema - Neurological Exam Neurological exam: Alert, CN II-XII Intact, Oriented x3 - Psychiatric Exam Psychiatric exam: Normal Affect, Normal Mood - Skin Skin Exam: Dry, Intact, Normal Color, Warm Discharge Plan - Discharge Medications Prescriptions: RX: Warfarin [Coumadin] 1 mg PO 1800 #3 tab Insulin Lispro [Humalog (Insulin Lispro)] 6 unit SQ AC #6 cartridge Insulin Detemir [Levemir] 20 units SC HS #6 vial Methylprednisolone [Medrol Dose Pack (21 tabs)] 4 mg PO DAILY #21 mg RX: rOPINIRole [Requip] 0.5 mg PO HS #60 tab - Follow Up Plan Condition: FAIR Disposition: HOME/ ROUTINE Instructions: Chronic Obstructive Pulmonary Disease (COPD), Including Emphysema, COPD Including Emphysema (DC), Chest Pain (DC), Hyperglycemia, Adult (DC), Blood Glucose Monitoring, What to Do When Your INR Is Too High , Heart Disease in Diabetics (DC), Inhalers, Exacerbation of COPD (DC), Prothrombin Time (PT) Test and International Normalized Ratio (INR), Diabetes in Older Adults Additional Instructions: 1) Patient to follow up with Dr. Capellan as directed. 2) Patient to take 5 mg of Metazolone every Sunday and . 3) Patient to get INR checked Sunday and take 5 mg of Coumadin each day in the interim (Sunday, Sunday, Sunday). 4) Patient was provided with prescriptions for Warfarin, Levemir, Lispro, and prescription for INR. 5) Patient advised to discontinue taking oral anti-diabetics once he begins insulin therapy. 6) Patient to follow up with Dr. Villagomez in the office within 5 days of discharge. <Axel Villagomez - Last Filed: 02/02/18 08:27> Provider - Provider Date of Admission: 01/30/18 15:12 Attending physician: Axel Villagomez MD Hospital Course - Lab Results Lab Results: Most Recent Lab Values WBC 11.5 10^3/uL (4.5-11.0) H 01/29/18 16:09 RBC 4.16 10^6/uL (3.5-6.1) 01/29/18 16:09 Hgb 12.2 g/dL (14.0-18.0) L D 01/29/18 16:09 Hct 36.6 % (42.0-52.0) L 01/29/18 16:09 MCV 88.0 fl (80.0-105.0) 01/29/18 16:09 MCH 29.3 pg (25.0-35.0) 01/29/18 16:09 MCHC 33.3 g/dl (31.0-37.0) 01/29/18 16:09 RDW 17.0 % (11.5-14.5) H 01/29/18 16:09 Plt Count 188 10^3/uL (120.0-450.0) 01/29/18 16:09 MPV 9.8 fl (7.0-11.0) 01/29/18 16:09 Gran % 83.9 % (50.0-68.0) H 01/29/18 16:09 Lymph % (Auto) 9.2 % (22.0-35.0) L 01/29/18 16:09 [place] % (Auto) 4.9 % (1.0-6.0) 01/29/18 16:09 Eos % (Auto) 1.6 % (1.5-5.0) 01/29/18 16:09 Baso % (Auto) 0.4 % (0.0-3.0) 01/29/18 16:09 Gran # 9.69 (1.4-6.5) H 01/29/18 16:09 Lymph # (Auto) 1.1 (1.2-3.4) L 01/29/18 16:09 [place] # (Auto) 0.6 (0.1-0.6) 01/29/18 16:09 Eos # (Auto) 0.2 (0.0-0.7) 01/29/18 16:09 Baso # (Auto) 0.05 K/mm3 (0.0-2.0) 01/29/18 16:09 PT 21.6 SECONDS (9.4-12.5) H 02/01/18 06:20 INR 1.85 02/01/18 06:20 APTT 45.8 Seconds (25.1-36.5) H 01/29/18 16:09 Sodium 133 mmol/L (132-148) 02/01/18 06:20 Potassium 4.7 mmol/L (3.6-5.0) 02/01/18 06:20 Chloride 95 mmol/L (98-107) L 02/01/18 06:20 Carbon Dioxide 26 mmol/L (21-33) 02/01/18 06:20 Anion Gap 14 (10-20) 02/01/18 06:20 BUN 51 mg/dL (7-21) H 02/01/18 06:20 Creatinine 1.3 mg/dl (0.8-1.5) 02/01/18 06:20 Est GFR ( Amer) > 60 02/01/18 06:20 Est GFR (Non-Af Amer) 57 02/01/18 06:20 POC Glucose (mg/dL) 304 mg/dL (65-110) H 02/01/18 11:45 Random Glucose 256 mg/dL (70-110) H 02/01/18 06:20 Hemoglobin A1c 9.5 % (4.2-6.5) H 01/30/18 12:00 Calcium 9.2 mg/dL (8.4-10.5) 02/01/18 06:20 Phosphorus 6.0 mg/dL (2.5-4.5) H 01/31/18 06:00 Magnesium 2.2 mg/dL (1.7-2.2) 01/31/18 06:00 Total Bilirubin 0.6 mg/dL (0.2-1.3) 01/29/18 16:09 AST 23 U/L (17-59) 01/29/18 16:09 ALT 29 U/L (7-56) 01/29/18 16:09 Alkaline Phosphatase 81 U/L (38-126) 01/29/18 16:09 Lactate Dehydrogenase 445 U/L (333-699) 01/29/18 16:09 Total Creatine Kinase 90 U/L (35-230) 01/29/18 16:09 Troponin I 0.06 ng/mL 01/30/18 09:20 NT-Pro-B Natriuret Pep 1010 pg/mL (0-450) H 01/29/18 16:09 Total Protein 6.5 g/dL (5.8-8.3) 01/29/18 16:09 Albumin 3.7 g/dL (3.0-4.8) 01/29/18 16:09 Globulin 2.8 gm/dL 01/29/18 16:09 Albumin/Globulin Ratio 1.3 (1.1-1.8) 01/29/18 16:09 - Hospital Course Hospital Course: Pt seen and examined. I have reviewed the note of the medical pathologist and agree with it. I have discussed the assessment and plan with the resident. I have reviewed the patient's labs and medications. Pt with acute COPD and was on Steroids and Duoneb. He is feeling better. He has CHF due to systolic dysfunction- chronic. He has CAD and is ASA. He is on Coumadin for A fib. He is optimized and cleared for R hip surgery. Pt was seen by Cardio and Pulmonary and they have also cleared him for surgery. I spoke to Dr Capellan. He is not compliant with is meds because he has difficulty in affording his medications. He will be discharged home.
--- NOTE | 2018-02-01 11:27 | PN ---
DATE: 02/01/2018 REASON FOR CONSULTATION AND FOLLOWUP: Cardiac evaluation, admitted with atypical chest pain, history of AICD, history of atrial fibrillation, history of nonischemic cardiomyopathy. SUBJECTIVE: The patient denies any chest pain, shortness of breath or any palpitation, being evaluated by Dr. Capellan for right hip surgery. Patient is scheduled for right hip surgery at [facility] after Thanksgiving. He needs preop evaluation and risk stratification. OBJECTIVE: GENERAL: Not in apparent distress. VITAL SIGNS: Temperature afebrile, heart rate 69, blood pressure 117/73. HEENT: PERRLA. Extraocular muscles intact. NECK: Supple. No carotid bruit or thyromegaly. CHEST: Clear to auscultation. HEART: S1, S2 regular. ABDOMEN: Soft. EXTREMITIES: Clubbing and cyanosis negative. LABORATORY DATA: Blood workup as follows: WBC 11.5, hemoglobin 12.2, hematocrit 36.6, platelet count 188,000. Chemistry shows sodium 136, potassium 4.0, chloride 95, carbon dioxide of 26, anion gap of 14, BUN 15, creatinine 1.3. IMPRESSION: A 57-year-old morbidly obese male with past medical history significant for chronic obstructive pulmonary disease, hypertension, hyperlipidemia, noncompliance with medication, status post cardiac catheterization x3, nonobstructive coronary artery disease, nonischemic cardiomyopathy, history of atrial fibrillation status post defibrillator, admitted with atypical chest pain. So far no evidence of acute myocardial infarction, history of deep venous thrombosis, history of atrial thrombus in lower extremity, noncompliance with medication on anticoagulation. INR is 5, therapeutic; now it is 1.85. Yesterday, it was 2.83, started Coumadin. RECOMMENDATION: We will resume back Coumadin. Patient is cleared from cardiac point of view to go for hip surgery with high risk because of underlying comorbidity, but no absolute contraindication. Risks and benefits ratio in favor of to have the surgery. Further recommendation depending upon hospital course. We will follow with you. We will give 4 mg of Coumadin from today and discontinue telemetry. Thank you Dr. Villagomez for providing us the opportunity in taking care of the patient, Pete . Tia Rajan MD [facility] # [id number]
[2018-02-01] MEDS ORDERED: Influenza Vaccine 60 mcg/0.5 mL SYR (4YR UP) IM ONE (11:48)
[2018-02-01 12:02] VITALS: BP 109/80
[2018-02-01 12:13] VITALS: PULSE 72; RESP 18; TEMP 97.2
== END 2018-02-01 13:42 | disposition home or self-care (01) | DRG 191 ==
LOC: ED 15:21 → ERH 16:46 → 2RNO 20:52 → OBSVTOIN 01-30 15:12
PROVIDERS: ADMIT Internal Medicine Nephrology; ATTEND Internal Medicine Nephrology
PROC: 3E0F7GC Introduction of Other Therapeutic Substance into Respiratory Tract, Via Natural or Artificial Opening (ICD-10-PCS; 2018-01-30)
PROC: 3E02340 Introduction of Influenza Vaccine into Muscle, Percutaneous Approach (ICD-10-PCS; principal; 2018-02-01)
DX: J44.1 Chronic obstructive pulmonary disease with (acute) exacerbation (principal); I50.22 Chronic systolic (congestive) heart failure; Z68.42 Body mass index [BMI] 45.0-49.9, adult; F31.30 Bipolar disorder, current episode depressed, mild or moderate severity, unspecified; I11.0 Hypertensive heart disease with heart failure; E11.65 Type 2 diabetes mellitus with hyperglycemia; E11.51 Type 2 diabetes mellitus with diabetic peripheral angiopathy without gangrene; E66.01 Morbid (severe) obesity due to excess calories; I25.10 Atherosclerotic heart disease of native coronary artery without angina pectoris; I48.0 Paroxysmal atrial fibrillation; E11.42 Type 2 diabetes mellitus with diabetic polyneuropathy; Z99.81 Dependence on supplemental oxygen; I25.5 Ischemic cardiomyopathy; R79.1 Abnormal coagulation profile; T45.515A Adverse effect of anticoagulants, initial encounter; M16.11 Unilateral primary osteoarthritis, right hip; E83.42 Hypomagnesemia; I27.20 Pulmonary hypertension, unspecified; G47.33 Obstructive sleep apnea (adult) (pediatric); K21.9 Gastro-esophageal reflux disease without esophagitis; F41.9 Anxiety disorder, unspecified; Z79.01 Long term (current) use of anticoagulants; Z87.891 Personal history of nicotine dependence; Z98.84 Bariatric surgery status; Z91.14 Patient's other noncompliance with medication regimen; Z23 Encounter for immunization; Z95.810 Presence of automatic (implantable) cardiac defibrillator; Z96.641 Presence of right artificial hip joint; Z95.5 Presence of coronary angioplasty implant and graft

== ENCOUNTER 2018-02-17 14:49 | Observation (INO) | payer MEDICARE, OTHER ==
[2018-02-17 14:50] VITALS: PULSE 74
[2018-02-17 14:51] VITALS: BMI 40.4
[2018-02-17] MEDS ORDERED: Oxycodone/Acetaminophen 10/325 mg Tab PO STA (14:57)
--- NOTE | 2018-02-17 15:13 | ED PDOC ---
Arrival/HPI - General Chief Complaint: Hip Pain Time Seen by Provider: 02/17/18 14:51 Historian: Patient - History of Present Illness Narrative History of Present Illness (Text): 02/17/18 14:51 57 M with PMHx of CHF, atrial fibrillation (on Coumadin), peripheral edema, COPD, diabetes, CAD, pacemaker and GERD, presents with cc of right hip and leg pain status post fall while using cane. Patient states pain radiates to groin area. Patient notes he is scheduled for hip replacement surgery on March 01, 2018. Pt denies any other complaints. PMD: Axel Wilburn Time/Duration: Prior to Arrival Symptom Onset: Sudden Symptom Course: Unchanged Activities at Onset: Light Past Medical History - Infectious Disease Hx of Infectious Diseases: None - Tetanus Immunization Tetanus Immunization: Unknown - Cardiac Hx Cardiac Disorders: Yes Hx Angina: Yes Hx Cardiac Arrhythmia: Yes Hx Circulatory Problems: Yes Hx Congestive Heart Failure: Yes Hx Hypertension: Yes Hx Internal Defibrillator: Yes Hx Pacemaker: Yes Hx Peripheral Edema: Yes Hx Peripheral Vascular Disease: Yes - Pulmonary Hx Respiratory Disorders: Yes Hx Bronchitis: Yes Hx Chronic Obstructive Pulmonary Disease (COPD): Yes Hx Emphysema: Yes Hx Pneumonia: Yes Hx Respiratory Tract Infection: Yes Hx Sleep Apnea: Yes - Neurological Hx Neurological Disorder: Yes Hx Dizziness: Yes - HEENT Hx HEENT Disorder: Yes Hx Blind: Yes (HX eye sugery) Hx Deafness: Yes - Renal Hx Renal Disorder: No - Endocrine/Metabolic Hx Endocrine Disorders: Yes Hx Adrenal Cancer: Yes Hx Diabetes Mellitus Type 2: Yes - Hematological/Oncological Hx Blood Disorders: No - Integumentary Hx Dermatological Disorder: No - Musculoskeletal/Rheumatological Hx Musculoskeletal Disorders: Yes Hx Arthritis: Yes Hx Falls: Yes Hx Fractures: Yes Hx Osteoarthritis: Yes Hx Unsteady Gait: Yes - Gastrointestinal Hx Gastrointestinal Disorders: Yes (gastric bypass surgery) Hx Gastroesophageal Reflux: Yes - Genitourinary/Gynecological Hx Genitourinary Disorders: Yes - Psychiatric Hx Psychophysiologic Disorder: Yes Hx Anxiety: Yes Hx Bipolar Disorder: Yes Hx Depression: Yes Hx Substance Use: No - Past Surgical History Past Surgical History: Non-Contributing - Surgical History Hx Cardiac Catheterization: Yes Hx Coronary Stent: Yes Hx Gastric Bypass Surgery: Yes - Anesthesia Hx Anesthesia: Yes Hx Anesthesia Reactions: No Hx Malignant Hyperthermia: No - Suicidal Assessment Feels Threatened In Home Enviroment: No Family/Social History Family/Social History: No Known Family HX Smoking Status: Former Smoker Hx Alcohol Use: No Hx Substance Use: No Hx Substance Use Treatment: No Allergies/Home Meds Allergies/Adverse Reactions: Allergies quetiapine fumarate [From Seroquel] Adverse Reaction (Verified 01/16/18 20:03) ANAPHYLAXIS wild berries Allergy (Intermediate, Uncoded 01/16/18 20:03) RASH Review of Systems - Physician Review All systems were reviewed & negative as marked: Yes (All other systems negative except that noted in the HPI.) Physical Exam - Physical Exam Narrative Physical Exam (Text): 02/17/18 14:52 Gen: VS reviewed, alert, well developed, well nourished, nontoxic, mild distress Eye: EOMI, PERRL Neck: no JVD, supple, no adenopathy CV: regular rate, regular rhythm, no rubs, no murmer, S1, S2 Pulm: no distress, clear to auscultation no wheeze, no rhonchi, breath sounds equal, no rales. Abd: soft, nontender, no guarding, no rebound, no rigidity Ext: Moderate pain in right hip without any bruising. Significant limited ROM of right hip secondary to pain Skin: good color, no rash, no cyanosis. Psych: responds appropriately to questions, normal affect. Neuro: oriented x 3, CN2-12 intact grossly, motor intact, sensation intact. Medical Decision Making ED Course and Treatment: 02/17/18 14:52 Impression: 57 M presents with cc of right hip and leg pain status post fall while using cane. Differential Diagnosis included but are not limited to: Plan: -- Percocet 10/325mg, 1 TAB PO -- X-Ray of right femur, 2 views -- X-Ray of right hip, min 2V w/Pelvis RT -- CT of right hip, without contrast -- Reassess and disposition Prior Visits: Notes and results from previous visits were reviewed. Patient was last seen in the emergency department on 01/29/18 for one of multiple visits to the emergency department for chest pain and shortness of breath. Patient was hospitalized in fair condition with diagnosis of Elevated troponin, Diabetes, COPD (chronic obstructive pulmonary disease), COPD exacerbation, Chest pain, Coagulopathy, Hyperglycemia. Progress Notes: 02/17/18 14:52 I reviewed his previous imaging results, CT showed severe arthritis in right hip. - RAD Interpretation Narrative RAD Interpretations (Text): X-Ray of hip/pelvis reviewed by radiologist, shows: Dictator : Jeyson Sunshine MD Report Date : 02/17/2018 16:54:52 FINDINGS: No evidence of acute displaced fracture nor dislocation. Both femoral heads are appropriately located within the respective acetabula. Degenerative osteoarthritis both hip joints right greater than left. IMPRESSION: No acute fractures. DJD both hips right greater than left X-Ray of femur reviewed by radiologist, shows: Dictator : Jeyson Sunshine MD Report Date : 02/17/2018 16:58:01 FINDINGS: No evidence of acute displaced fracture nor dislocationNo evidence of acute displaced fracture nor dislocation. Right femoral head appropriately located within the right acetabula. Degenerative osteoarthritis both right hip joint. Vascular calcifications are present. IMPRESSION: No acute fractures. DJD right hip --------- CT of right hip reviewed by radiologist, shows: Dictator : Jeyson Sunshine MD Report Date : 02/17/2018 17:56:01 FINDINGS: BONES: No evidence of acute displaced fracture nor dislocation. No fracture or focal lesion.. Right femoral head is appropriately located within the right aceta bulum. Femoral head maintains normal contour. Note is made of sclerosis and partial fusion right SI joint. RIGHT HIP JOINT: Degenerative osteoarthritis again seen right hip joint. SOFT TISSUES: Unremarkable. Prostatic calcifications are also again noted. IMPRESSION: No evidence of acute displaced fracture nor dislocation. Degenerative osteoarthritis right hip. 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 I have reviewed the chart and agree that the record accurately reflects my personal performance of the history, physical exam, medical decision making, and the department course for this patient. I have also personally directed, reviewed, and agree with the discharge instructions and disposition. Disposition/Present on Arrival - Present on Arrival History of DVT/PE: Yes History of Uncontrolled Diabetes: Yes Urinary Catheter: No History of Decub. Ulcer: No History Surgical Site Infection Following: None - Disposition Disposition: HOSPITALIZED
--- NOTE | 2018-02-17 17:00 | RAD ---
Date of service: 02/17/2018 PROCEDURE: Right hip HISTORY: fall, injury COMPARISON: Correlation made with concurrent radiographs of the right femur. Comparison also made with CT scan of the both hips dated 01/30/2018. TECHNIQUE: Frontal view of the pelvis and frontal/frogleg lateral views of the right hip performed. FINDINGS: No evidence of acute displaced fracture nor dislocation. Both femoral heads are appropriately located within the respective acetabula. Degenerative osteoarthritis both hip joints right greater than left. IMPRESSION: No acute fractures. DJD both hips right greater than left
--- NOTE | 2018-02-17 17:02 | RAD ---
Date of service: 02/17/2018 PROCEDURE: Right femur HISTORY: fall, injury COMPARISON: Study available correlation made with concurrent radiographs of the right hip TECHNIQUE: AP and lateral views of the right femur performed. FINDINGS: No evidence of acute displaced fracture nor dislocationNo evidence of acute displaced fracture nor dislocation. Right femoral head appropriately located within the right acetabula. Degenerative osteoarthritis both right hip joint. Vascular calcifications are present. IMPRESSION: No acute fractures. DJD right hip
[2018-02-17 17:03] LABS: BASO # 0.03 K/mm3 (0.0-2.0); BASO % 0.3 % (0.0-3.0); EOS # 0.1 (0.0-0.7); EOS % 1.1 % (1.5-5.0); GRAN # 8.25 (1.4-6.5); GRAN % 75.8 % (50.0-68.0); HEMOGLOBIN 13.2 g/dL (14.0-18.0); LYMPH # 1.6 (1.2-3.4); LYMPH % 14.2 % (22.0-35.0); MEAN CELL VOLUME 88.3 fl (80.0-105.0); MEAN CORPUSCULAR HEMOGLOBIN 30.2 pg (25.0-35.0); MEAN CORPUSCULAR HGB CONC 34.2 g/dl (31.0-37.0); MONO # 0.9 (0.1-0.6); MONO % 8.6 % (1.0-6.0); RBC 4.37 10^6/uL (3.5-6.1); WHITE BLOOD COUNT 10.9 10^3/uL (4.5-11.0)
[2018-02-17 17:22] LABS: INR 2.8; PARTIAL THROMBOPLASTIN TIME 32.2 Seconds (25.1-36.5); PROTHROMBIN TIME 32.6 SECONDS (9.4-12.5)
[2018-02-17 17:23] LABS: BLOOD UREA NITROGEN 30 mg/dL (7-21); CALCIUM 8.5 mg/dL (8.4-10.5); GFR NON-AFRICAN AMERICAN > 60
--- NOTE | 2018-02-17 17:59 | CT ---
Date of service: 2018-02-17 17:21:54 PROCEDURE: CT of the Right Hip. HISTORY: Status post fall with injury. COMPARISON: None available. TECHNIQUE: Contiguous axial images of the right hip were obtained. Coronal and sagittal reformats were generated. Radiation dose: Total exam DLP = 840.53 mGy-cm. This CT exam was performed using one or more of the following dose reduction techniques: Automated exposure control, adjustment of the mA and/or kV according to patient size, and/or use of iterative reconstruction technique. FINDINGS: BONES: No evidence of acute displaced fracture nor dislocation. No fracture or focal lesion.. Right femoral head is appropriately located within the right acetabulum. Femoral head maintains normal contour. Note is made of sclerosis and partial fusion right SI joint. RIGHT HIP JOINT: Degenerative osteoarthritis again seen right hip joint. SOFT TISSUES: Unremarkable. Prostatic calcifications are also again noted. IMPRESSION: No evidence of acute displaced fracture nor dislocation. Degenerative osteoarthritis right hip.
[2018-02-17] MEDS ORDERED: Oxycodone/Acetaminophen 10/325 mg Tab PO PRN (20:24)
[2018-02-17] MEDS ORDERED: Insulin Detemir 100 units/ml Vial (Levemir) SC SCH (22:00)
[2018-02-18] MEDS ORDERED: Insulin Lispro 1 UNITS/0.01 ML SC SCH (07:30)
[2018-02-18 08:21] VITALS: RESP 20; TEMP 97.3; O2SAT 95
[2018-02-18] MEDS ORDERED: Oxycodone/Acetaminophen 10/325 mg Tab PO PRN (08:39)
[2018-02-18 09:49] VITALS: BP 111/67; PULSE 69
[2018-02-18] MEDS ORDERED: Magnesium Oxide 400 mg Tab UD PO SCH (10:00)
--- NOTE | 2018-02-18 11:17 | CARD ---
APPROVED REPORT Date of service: 02/17/2018 EKG Measurement Heart [id number] <Conclusion> Ventricular paced rhythm with underlying atrial fibrillation with occasional premature ventricular complexes Right bundle branch block Abnormal ECG
--- NOTE | 2018-02-18 17:57 | CON ---
DATE: 02/18/2018 ORTHOPEDIC CONSULTATION LOCATION: Room 373, Bed 1. HISTORY OF PRESENT ILLNESS: The patient is a 57-year-old male, being prepped for total hip surgery at [facility] on 03/01/2018. He came in because of hip pain. X-rays disclosed no evidence of fracture, but osteoarthritis of his right hip, confirmed by CAT scan and a plain x-ray. I told the patient he should not stay in the hospital here or anywhere because before surgery there is a higher chance of getting a postoperative infection if he is in the hospital, so he should go home, and we will get him to go to therapy to get a walker and ambulate, and he just has to understand he cannot stay in the hospital prior to surgery, he has to go home and get a cardiac clearance and he could be prepared for surgery at [facility] on the . So, he should go home as soon as he sees Dr. Rajan for cardiac clearance. Wes Capellan DO
--- NOTE | 2018-02-19 02:16 | CON ---
DATE: 02/18/2018 REASON FOR CONSULTATION: Preop evaluation and risk stratification for right hip surgery status post fall while attending the Alcohol Anonymous meeting. History of cardiomyopathy. History of AICD. BRIEF CLINICAL HISTORY: This is a 57-year-old male with past medical history of chronic atrial fibrillation, status post radiofrequency ablation; nonobstructive coronary artery disease, status post multiple catheterizations; peripheral edema; morbid obesity; COPD; diabetes; status post AICD; nonischemic cardiomyopathy, requiring hip surgery scheduled at [facility] on 03/01/2018. Yesterday, the patient was in the hospital and attending Alcoholic Anonymous course, and he fell down. Admitted here. Denies chest pain, shortness of breath or any palpitation. PAST MEDICAL HISTORY: Significant for morbid obesity; nonobstructive coronary artery disease, status post cardiac catheterization x3; history of radiofrequency ablation for AFib/flutter with multiple admissions; congestive heart failure, noncompliance with medication. Does not take medication. PAST SURGICAL HISTORY: Significant for gastric bypass, status post AICD placement, history of thrombectomy from left lower extremity and PTCA of left SFA and popliteal trunk, history of DVT, history of catheter-based treatment for right DVT of the lower extremity, history of cardiac catheterization x3, nonobstructive coronary artery disease, history of AICD, history of radiofrequency ablation for atrial fibrillation. RECENT CARDIAC WORKUP: The patient had echo 05/31/2017 that showed ejection fraction around 35%, mild mitral regurgitation, mild tricuspid regurgitation. History of cardiac catheterization as mentioned three times for nonobstructive coronary artery disease. SOCIAL HISTORY: Denies any history of alcohol abuse. CURRENT MEDICATIONS: The patient is supposed to take Desyrel 150 mg daily, Requip 0.5 mg daily, Zaroxolyn 5 mg daily, Cardizem 30 mg daily, Coumadin 7 mg daily, spironolactone 25 mg daily, Singulair, lisinopril, insulin, gabapentin, Lasix, and cilostazol. REVIEW OF SYSTEMS: As per HPI. PHYSICAL EXAMINATION GENERAL: Height of the patient 5 feet 11 inches, weight of the patient is 266 pounds. Body mass index 40 kg/m2. VITAL SIGNS: Rest of the vitals as follows: Temperature, afebrile; heart rate is 69; blood pressure 101/67. HEENT: PERRLA. NECK: Supple. No carotid bruit or thyromegaly. CHEST: Clear to auscultation. HEART: S1 and S2, regular. ABDOMEN: Soft. EXTREMITIES: Clubbing, cyanosis negative. LABORATORY DATA: Blood workup as follows: WBC 10.9, hemoglobin 13.9, hematocrit 38.6, platelet count 175. Chemistry shows sodium 130, potassium 4.5, chloride 105, carbon dioxide of 26, anion gap of 13, BUN 30, creatinine 1.1. EKG shows V-paced rhythm with underlying atrial fibrillation. IMPRESSION: A 57-year-old male, morbidly obese, with a past medical history significant for chronic atrial fibrillation and COPD; hypertension; hyperlipidemia; noncompliance with medication; status post cardiac catheterization x3, nonobstructive coronary artery disease; nonischemic cardiomyopathy; history of atrial fibrillation, status post radiofrequency ablation, status post defibrillator, has right hip arthritis requiring OR internal fixation. The patient is cleared from cardiology point of view with moderate to high risk with underlying comorbidities. History of DVT, PE, history of thrombectomy, history of acute occlusion of lower extremity, history of DVT as well as history of catheter-based treatment for DVT. RECOMMENDATION: Continue anticoagulation, INR today is 2.8. Continue Cardizem. Continue spironolactone. Continue diuretics. Once the patient is stable, okay to be discharged. The patient is cleared from Cardiology point of view with moderate risk to go for hip surgery. No contraindication. No evidence of arrhythmia except baseline, no evidence of congestive heart failure, no evidence of angina. We will follow with you on this patient with AICD. Thank you Dr. Villagomez, Dr. Drake, and Dr. Capellan for providing me the opportunity of taking care of this patient. May continue Coumadin. Hold Coumadin five days before surgery and resume back after the surgery. Also, use cauterization 10 inches away from the AICD. Tia Rajan MD
== END 2018-02-18 14:15 | disposition home or self-care (01) ==
LOC: ED 14:49 → INTOOBSV 16:31 → ERH 16:31 → 3RSO 17:47
PROVIDERS: ADMIT Internal Medicine Nephrology; ATTEND Internal Medicine Medical Oncology
DX: M16.11 Unilateral primary osteoarthritis, right hip (principal); J44.9 Chronic obstructive pulmonary disease, unspecified; K21.9 Gastro-esophageal reflux disease without esophagitis; I25.10 Atherosclerotic heart disease of native coronary artery without angina pectoris; E66.01 Morbid (severe) obesity due to excess calories; Z68.41 Body mass index [BMI] 40.0-44.9, adult; E11.51 Type 2 diabetes mellitus with diabetic peripheral angiopathy without gangrene; E78.5 Hyperlipidemia, unspecified; F31.9 Bipolar disorder, unspecified; G47.30 Sleep apnea, unspecified; H54.7 Unspecified visual loss; H91.90 Unspecified hearing loss, unspecified ear; I08.1 Rheumatic disorders of both mitral and tricuspid valves; I11.0 Hypertensive heart disease with heart failure; I42.9 Cardiomyopathy, unspecified; I48.2 Chronic atrial fibrillation; I50.9 Heart failure, unspecified; W19.XXXA Unspecified fall, initial encounter; Z79.01 Long term (current) use of anticoagulants; Z85.858 Personal history of malignant neoplasm of other endocrine glands; Z86.718 Personal history of other venous thrombosis and embolism; Z87.01 Personal history of pneumonia (recurrent); Z91.14 Patient's other noncompliance with medication regimen; Z95.5 Presence of coronary angioplasty implant and graft; Z95.810 Presence of automatic (implantable) cardiac defibrillator; Z98.84 Bariatric surgery status; Z87.892 Personal history of anaphylaxis; Z88.8 Allergy status to other drugs, medicaments and biological substances; Z91.018 Allergy to other foods
CPT/HCPCS: 36415; 73502; 73552; 73700; 80048; 82948; 83735; 84100; 85025; 85610; 85730; 93005; 99283; G0378

== ENCOUNTER 2018-04-01 15:09 | Emergency (ER) | payer MEDICARE, OTHER ==
[2018-04-01 15:09] VITALS: PULSE 74
[2018-04-01 15:47] VITALS: BMI 39.5
[2018-04-01] MEDS ORDERED: Oxycodone/Acetaminophen 5/325 mg Tab PO STA (17:30)
[2018-04-01] MEDS ORDERED: Oxycodone/Acetaminophen 10/325 mg Tab PO STA (17:44)
--- NOTE | 2018-04-01 17:50 | ED PDOC ---
Arrival/HPI - General Chief Complaint: Lower Extremity Problem/Injury Time Seen by Provider: 04/01/18 16:53 Historian: Patient - History of Present Illness Narrative History of Present Illness (Text): 04/01/18 17:45 57yo morbidly obese male with past medical history of hypertension, DVT, chronic back pain, hep C, HIV who present with complaint of right leg pain. Ana states he had a repalcement surgery a month ago and his Percocet 10mg finished 2weeks ago, so she has been without pain medication. Notes that he was referred to a pain managment but have not seen him yet. Denies fever, chest pain, diaphoresis, SOB, Past Medical History - Provider Review Nursing Documentation Reviewed: Yes - Infectious Disease Hx of Infectious Diseases: None - Tetanus Immunization Tetanus Immunization: Unknown - Cardiac Hx Cardiac Disorders: Yes Hx Angina: Yes Hx Cardiac Arrhythmia: Yes Hx Circulatory Problems: Yes Hx Congestive Heart Failure: Yes Hx Hypertension: Yes Hx Internal Defibrillator: Yes Hx Pacemaker: Yes Hx Peripheral Edema: Yes Hx Peripheral Vascular Disease: Yes - Pulmonary Hx Respiratory Disorders: Yes Hx Bronchitis: Yes Hx Chronic Obstructive Pulmonary Disease (COPD): Yes Hx Emphysema: Yes Hx Pneumonia: Yes Hx Respiratory Tract Infection: Yes Hx Sleep Apnea: Yes - Neurological Hx Neurological Disorder: Yes Hx Dizziness: Yes - HEENT Hx HEENT Disorder: Yes Hx Blind: Yes (HX eye sugery) Hx Deafness: Yes - Renal Hx Renal Disorder: No - Endocrine/Metabolic Hx Endocrine Disorders: Yes Hx Adrenal Cancer: Yes Hx Diabetes Mellitus Type 2: Yes - Hematological/Oncological Hx Blood Disorders: No - Integumentary Hx Dermatological Disorder: No - Musculoskeletal/Rheumatological Hx Musculoskeletal Disorders: Yes Hx Arthritis: Yes Hx Falls: Yes Hx Fractures: Yes Hx Osteoarthritis: Yes Hx Unsteady Gait: Yes - Gastrointestinal Hx Gastrointestinal Disorders: Yes (gastric bypass surgery) Hx Gastroesophageal Reflux: Yes - Genitourinary/Gynecological Hx Genitourinary Disorders: Yes - Psychiatric Hx Psychophysiologic Disorder: Yes Hx Anxiety: Yes Hx Bipolar Disorder: Yes Hx Depression: Yes Hx Substance Use: No - Past Surgical History Past Surgical History: Non-Contributing - Surgical History Hx Cardiac Catheterization: Yes Hx Coronary Stent: Yes Hx Gastric Bypass Surgery: Yes - Anesthesia Hx Anesthesia: Yes Hx Anesthesia Reactions: No Hx Malignant Hyperthermia: No - Suicidal Assessment Feels Threatened In Home Enviroment: No Family/Social History - Physician Review Nursing Documentation Reviewed: Yes Family/Social History: Unknown Family HX Smoking Status: Former Smoker Hx Alcohol Use: No Hx Substance Use: No Hx Substance Use Treatment: No Allergies/Home Meds Allergies/Adverse Reactions: Allergies quetiapine fumarate [From Seroquel] Adverse Reaction (Verified 01/16/18 20:03) ANAPHYLAXIS wild berries Allergy (Intermediate, Uncoded 01/16/18 20:03) RASH Home Medications: Home Meds Medication Instructions Recorded Confirmed RX: Warfarin [Coumadin] 7 mg PO 1800 02/17/18 02/17/18 Review of Systems - Physician Review All systems were reviewed & negative as marked: Yes - Review of Systems Constitutional: Normal Eyes: Normal ENT: Normal Respiratory: Normal Cardiovascular: Normal Gastrointestinal: Normal Genitourinary Male: Normal Musculoskeletal: Arthralgias (right leg) Skin: Normal Neurological: Normal Endocrine: Normal Hemo/Lymphatic: Normal Psychiatric: Normal Physical Exam Vital Signs Reviewed: Yes Temperature: Afebrile Blood Pressure: Normal Pulse: Regular Respiratory Rate: Normal Appearance: Positive for: Well-Appearing, Non-Toxic, Comfortable, Other (Morbidly morbid obese) Pain Distress: None Mental Status: Positive for: Alert and Oriented X 3 - Systems Exam Head: Present: Atraumatic, Normocephalic Pupils: Present: PERRL Extroacular Muscles: Present: EOMI Conjunctiva: Present: Normal Mouth: Present: Moist Mucous Membranes Neck: Present: Normal Range of Motion Respiratory/Chest: Present: Clear to Auscultation, Good Air Exchange. No: Respiratory Distress, Accessory Muscle Use Cardiovascular: Present: Regular Rate and Rhythm, Normal S1, S2. No: Murmurs Abdomen: No: Tenderness, Distention, Peritoneal Signs Back: Present: Normal Inspection Upper Extremity: Present: Normal Inspection. No: Cyanosis, Edema Lower Extremity: Present: Normal Inspection, Edema (2+), NORMAL PULSES, Normal ROM, Neurovascularly Intact. No: CALF TENDERNESS, Mildred's Sign, Tenderness, Erythema, Temperature Abnormalties Neurological: Present: GCS=15, CN II-XII Intact, Speech Normal Skin: Present: Warm, Dry, Normal Color. No: Rashes Psychiatric: Present: Alert, Oriented x 3, Normal Insight, Normal Concentration Medical Decision Making ED Course and Treatment: 04/01/18 19:49 57yo male present in emergency department for right leg pain. Patient states he was on Percocet 10mg up till 2weeks ago. States his PMD refused to give him more prescription and he was referred to a pain management nd have an appointment on . States he came to emergency department because of the pain. Patent was told he will get a dose of Percocet in emergency department , but not prescription and he became verbal. Started complaining of left shoulder pain and chest congestion. Doppler US - Preliminary report was negative for DVT Chest xray - NAD Left shoulder - Calcification. No acute process Result was DW the pt. He requested for pain medication states he is unable to ambulate and have appiontment iwth the pain manangement on . He was given #[id number] of Percocet 5/325mg. Strongly advised to follow up with pain manangment for more rx. TRT emergency department for any new complaint. - RAD Interpretation Radiology Orders: 04/01/18 17:29 DUPLEX LOWER EXTRM VEIN BILAT [US] Stat - Medication Orders Current Medication Orders: Discontinued Medications Oxycodone/Acetaminophen (Percocet 5/325 Mg Tab) 1 tab PO STAT STA Stop: 04/01/18 17:31 Disposition/Present on Arrival - Present on Arrival Any Indicators Present on Arrival: No History of DVT/PE: Yes History of Uncontrolled Diabetes: Yes Urinary Catheter: No History of Decub. Ulcer: No History Surgical Site Infection Following: None - Disposition Have Diagnosis and Disposition been Completed?: Yes Diagnosis: Leg pain, Shoulder pain, Drug-seeking behavior Disposition: HOME/ ROUTINE Disposition Time: 19:40 Patient Plan: Discharge Condition: STABLE Discharge Instructions (ExitCare): Muscle and Bone Pain (DC) Additional Instructions: Follow up with pain management Doctor Return to emergency department for any new symptoms Prescriptions: oxyCODONE/Acetaminophen [Percocet 5/325 mg Tab] 1 ea PO Q6 #6 tab Referrals: Jeyson Hinson MD [Staff Provider] - Follow up with primary Forms: [facility] (Amharic)
[2018-04-01 18:09] VITALS: RESP 18; TEMP 98
[2018-04-01 19:07] VITALS: BP 101/68; PULSE 68; O2SAT 95
--- NOTE | 2018-04-01 19:42 | US ---
HISTORY: Leg pain and swelling. Evaluate for DVT PHYSICIAN(S): John Paul Cannon MD. TECHNIQUE: Duplex sonography and color-flow Doppler with graded compression were used to evaluate the deep venous systems of both lower extremities. The exam is very limited by body habitus and edema. The lower femoral veins and tibial veins are not adequately seen FINDINGS: The visualized deep venous systems of both lower extremities are sonographically normal and compressible. Normal wave forms and augmentation are seen. There is no sonographic evidence for deep venous thrombosis in the visualized segments of both lower extremities. IMPRESSION: No sonographic evidence for deep venous thrombosis in the visualized segments of both lower extremities. Very limited study
--- NOTE | 2018-04-02 09:17 | RAD ---
Date of service: 04/01/2018 HISTORY: Cough COMPARISON: No prior. TECHNIQUE: Chest PA and lateral FINDINGS: LINES AND TUBES: None. LUNG AND PLEURA: The lungs are well inflated and clear. There is mild pulmonary venous congestion no pleural effusion or pneumothorax. HEART AND MEDIASTINUM: Persistent mild cardiomegaly. There is stable position of left-sided dual lead permanent pacing device. There are aortic atherosclerotic calcifications present. The hilar and mediastinal contours are within normal limits. SKELETAL STRUCTURES: The bony structures are within normal limits for the patient's age. VISUALIZED UPPER ABDOMEN: Normal. OTHER FINDINGS: None. IMPRESSION: No active pulmonary disease.
--- NOTE | 2018-04-02 09:29 | RAD ---
Date of service: 04/01/2018 PROCEDURE: <SHOULDER LEFT> HISTORY: shoulder pain COMPARISON: No prior. FINDINGS: BONES: Bone alignment and mineralization are normal. There is no acute displaced fracture or bone destruction. JOINTS: There is mild degenerative osteoarthrosis in the acromioclavicular joint. The glenohumeral joint is normal. SOFT TISSUES: There is a lobular calcification lateral to the humeral head. OTHER FINDINGS: None. IMPRESSION: Lobular calcification lateral to the humeral head may represent calcific tendinitis in the appropriate clinical setting. Mild degenerative osteoarthrosis in the acromioclavicular joint.
== END 2018-04-01 20:10 | disposition home or self-care (01) ==
LOC: ED 15:09
DX: M79.604 Pain in right leg (principal); M25.512 Pain in left shoulder; Z76.5 Malingerer [conscious simulation]; E66.01 Morbid (severe) obesity due to excess calories; I10 Essential (primary) hypertension; I50.9 Heart failure, unspecified; Z87.891 Personal history of nicotine dependence

== ENCOUNTER 2018-04-11 17:02 | Emergency (ER) | payer MEDICARE ==
[2018-04-11 17:02] VITALS: PULSE 74; BMI 39.5
--- NOTE | 2018-04-11 18:05 | RAD ---
Date of service: 04/11/2018 HISTORY: chest pain COMPARISON: Chest radiograph dated 04/01/2018. FINDINGS: LUNGS: Prominence of the pulmonary vasculature may be secondary to low lung volumes, AP technique and/or pulmonary vascular congestion. No focal consolidation PLEURA: No significant pleural effusion identified, no pneumothorax apparent. CARDIOVASCULAR: Left subclavian access AICD/pacemaker redemonstrated. Aortic atherosclerotic calcifications. Cardiomediastinal silhouette stably enlarged. OSSEOUS STRUCTURES: Unchanged. VISUALIZED UPPER ABDOMEN: Normal. OTHER FINDINGS: None. IMPRESSION: No active disease.
[2018-04-11 18:14] VITALS: RESP 20; TEMP 97.4
[2018-04-11 18:20] LABS: BASO # 0.04 K/mm3 (0.0-2.0); BASO % 0.4 % (0.0-3.0); EOS # 0.2 (0.0-0.7); EOS % 2.3 % (1.5-5.0); GRAN # 7.36 (1.4-6.5); GRAN % 77.6 % (50.0-68.0); HEMOGLOBIN 11.6 g/dL (14.0-18.0); LYMPH # 1.3 (1.2-3.4); LYMPH % 13.9 % (22.0-35.0); MEAN CELL VOLUME 84.8 fl (80.0-105.0); MEAN CORPUSCULAR HEMOGLOBIN 27.1 pg (25.0-35.0); MEAN PLATELET VOLUME 10.4 fl (7.0-11.0); MONO # 0.6 (0.1-0.6); MONO % 5.8 % (1.0-6.0); RBC 4.28 10^6/uL (3.5-6.1); RED CELL DISTRIBUTION WIDTH 14.9 % (11.5-14.5); WHITE BLOOD COUNT 9.5 10^3/uL (4.5-11.0)
[2018-04-11 18:35] LABS: B-TYPE NATRIURETIC PEPTIDE 2200 pg/mL (0-450); TROPONIN I 0.06 ng/mL
[2018-04-11 18:50] LABS: ALB/GLOB RATIO 1.3 (1.1-1.8); ALBUMIN 3.9 g/dL (3.0-4.8); ALT/SGPT 23 U/L (7-56); AST/SGOT 31 U/L (17-59); BLOOD UREA NITROGEN 36 mg/dL (7-21); CALCIUM 9.2 mg/dL (8.4-10.5); GFR NON-AFRICAN AMERICAN > 60
--- NOTE | 2018-04-11 19:38 | ED PDOC ---
Arrival/HPI - General Chief Complaint: Chest Pain Time Seen by Provider: 04/11/18 17:11 Historian: Patient - History of Present Illness Narrative History of Present Illness (Text): 04/11/18 19:35 A 57 year old male, whose past medical history includes hypertension, DVT, chronic back pain, hep C, HIV, presents to the emergency department complaining of chest pain all day today. Patient has had multiple visits to the ER for the s hanna complaints. Patient denies any shortness of breath, fever, cough, or any other complaints at this time. Past Medical History - Provider Review Nursing Documentation Reviewed: Yes - Infectious Disease Hx of Infectious Diseases: None - Tetanus Immunization Tetanus Immunization: Unknown - Cardiac Hx Cardiac Disorders: Yes Hx Angina: Yes Hx Cardiac Arrhythmia: Yes Hx Circulatory Problems: Yes Hx Congestive Heart Failure: Yes Hx Hypertension: Yes Hx Internal Defibrillator: Yes Hx Pacemaker: Yes Hx Peripheral Edema: Yes Hx Peripheral Vascular Disease: Yes - Pulmonary Hx Respiratory Disorders: Yes Hx Bronchitis: Yes Hx Chronic Obstructive Pulmonary Disease (COPD): Yes Hx Emphysema: Yes Hx Pneumonia: Yes Hx Respiratory Tract Infection: Yes Hx Sleep Apnea: Yes - Neurological Hx Neurological Disorder: Yes Hx Dizziness: Yes - HEENT Hx HEENT Disorder: Yes Hx Blind: Yes (HX eye sugery) Hx Deafness: Yes - Renal Hx Renal Disorder: No - Endocrine/Metabolic Hx Endocrine Disorders: Yes Hx Adrenal Cancer: Yes Hx Diabetes Mellitus Type 2: Yes - Hematological/Oncological Hx Blood Disorders: No - Integumentary Hx Dermatological Disorder: No - Musculoskeletal/Rheumatological Hx Musculoskeletal Disorders: Yes Hx Arthritis: Yes Hx Falls: Yes Hx Fractures: Yes Hx Osteoarthritis: Yes Hx Unsteady Gait: Yes - Gastrointestinal Hx Gastrointestinal Disorders: Yes (gastric bypass surgery) Hx Gastroesophageal Reflux: Yes - Genitourinary/Gynecological Hx Genitourinary Disorders: Yes - Psychiatric Hx Psychophysiologic Disorder: Yes Hx Anxiety: Yes Hx Bipolar Disorder: Yes Hx Depression: Yes Hx Substance Use: No - Past Surgical History Past Surgical History: Non-Contributing - Surgical History Hx Cardiac Catheterization: Yes Hx Coronary Stent: Yes Hx Gastric Bypass Surgery: Yes - Anesthesia Hx Anesthesia: Yes Hx Anesthesia Reactions: No Hx Malignant Hyperthermia: No - Suicidal Assessment Feels Threatened In Home Enviroment: No Family/Social History - Physician Review Nursing Documentation Reviewed: Yes Family/Social History: No Known Family HX Smoking Status: Former Smoker Hx Alcohol Use: No Hx Substance Use: No Hx Substance Use Treatment: No Allergies/Home Meds Allergies/Adverse Reactions: Allergies quetiapine fumarate [From Seroquel] Adverse Reaction (Verified 01/16/18 20:03) ANAPHYLAXIS wild berries Allergy (Intermediate, Uncoded 01/16/18 20:03) RASH Home Medications: Home Meds Medication Instructions Recorded Confirmed Warfarin [Coumadin] 7 mg PO 1800 02/17/18 02/17/18 Review of Systems - Physician Review All systems were reviewed & negative as marked: Yes - Review of Systems Constitutional: absent: Fevers Respiratory: absent: SOB, Cough Cardiovascular: Chest Pain Physical Exam Vital Signs Reviewed: Yes Vital Signs Temp Pulse Resp BP Pulse Ox 04/11/18 17:20 97.4 F L 70 20 123/91 H 95 Temperature: Afebrile Blood Pressure: Normal Pulse: Regular Respiratory Rate: Normal Appearance: Positive for: Well-Appearing, Non-Toxic, Comfortable, Other (morbidly obese) Pain Distress: None Mental Status: Positive for: Alert and Oriented X 3 - Systems Exam Head: Present: Atraumatic, Normocephalic Pupils: Present: PERRL Extroacular Muscles: Present: EOMI Conjunctiva: Present: Normal Mouth: Present: Moist Mucous Membranes Neck: Present: Normal Range of Motion Respiratory/Chest: Present: Clear to Auscultation, Good Air Exchange. No: Respiratory Distress, Accessory Muscle Use Cardiovascular: Present: Regular Rate and Rhythm, Normal S1, S2. No: Murmurs Abdomen: No: Tenderness, Distention, Peritoneal Signs Back: Present: Normal Inspection Upper Extremity: Present: Normal Inspection. No: Cyanosis, Edema Lower Extremity: Present: Edema (chronic as per patient.) Neurological: Present: GCS=15, CN II-XII Intact, Speech Normal Skin: Present: Warm, Dry, Normal Color. No: Rashes Psychiatric: Present: Alert, Oriented x 3, Normal Insight, Normal Concentration Medical Decision Making ED Course and Treatment: 04/11/18 19:36 Impression: 57 year old male with chest pain. Plan: -- EKG -- Chest X-ray -- Labs -- Nasal Cannula O2 -- Reassess and disposition Prior Visits: Notes and results from previous visits were reviewed. Last seen here on for right leg pain. Patient was discharged home. Progress Notes: EKG: Ordered, reviewed, and independently interpreted the EKG. Rate : 70 BPM Rhythm : NSR Interpretation : RBBB. Comparison : No change in EKG from 02/17/2018. 04/11/2018 18:01 Chest X-ray IMPRESSION: No active disease. Dictator: Ap Garcia MD 04/11/18 20:31 Patient told of lab results, including elevated INR. Patient instructed to stop taking coumadin for 3 doses and to resume. Patient also instructed to follow up with the clinic in 4 days for an INR check and further management. Patient understands plan. Instructions given. - Dr. Yun - Lab Interpretations Lab Results: Troponin I 0.06 ng/mL 04/11/18 18:00 NT-Pro-B Natriuret Pep 2200 pg/mL (0-450) H 04/11/18 18:00 Total Bilirubin 0.4 mg/dL (0.2-1.3) 04/11/18 18:00 AST 31 U/L (17-59) 04/11/18 18:00 ALT 23 U/L (7-56) 04/11/18 18:00 Alkaline Phosphatase 123 U/L (38-126) 04/11/18 18:00 Total Protein 7.0 g/dL (5.8-8.3) 04/11/18 18:00 Albumin 3.9 g/dL (3.0-4.8) 04/11/18 18:00 Globulin 3.1 gm/dL 04/11/18 18:00 Albumin/Globulin Ratio 1.3 (1.1-1.8) 04/11/18 18:00 - RAD Interpretation Radiology Orders: 04/11/18 17:21 CHEST PORTABLE [RAD] Stat - Scribe Statement The provider has reviewed the documentation as recorded by the Celeste Shell Provider Scribe Attestation: All medical record entries made by the Charlineibmadina were at my direction and personally dictated by me. I have reviewed the chart and agree that the record accurately reflects my personal performance of the history, physical exam, medical decision making, and the department course for this patient. I have also personally directed, reviewed, and agree with the discharge instructions and disposition. Disposition/Present on Arrival - Present on Arrival Any Indicators Present on Arrival: Yes History of DVT/PE: Yes History of Uncontrolled Diabetes: Yes Urinary Catheter: No History of Decub. Ulcer: No History Surgical Site Infection Following: None - Disposition Have Diagnosis and Disposition been Completed?: Yes Diagnosis: Congestive heart failure (CHF), Supratherapeutic INR, Hyperglycemia Disposition: HOME/ ROUTINE Disposition Time: 20:10 Patient Problems: Current Active Problems Problem Status Onset Congestive heart failure (CHF) Chronic Supratherapeutic INR Acute Condition: GOOD Discharge Instructions (ExitCare): Prothrombin Time (PT) Test and International Normalized Ratio (INR), Heart Failure (ED) Additional Instructions: ABIEL BROWN, thank you for letting us take care of you today. The emergency medical care you received today was directed at your acute symptoms. If you were prescribed any medication, please fill it and take as directed. It may take several days for your symptoms to resolve. Return to the Emergency Department if your symptoms worsen, do not improve, or if you have any other problems. Please contact your doctor or call one of the physicians/clinics you have been referred to that are listed on the Patient Visit Information form that is included in your discharge packet. Bring any paperwork you were given at discharge with you along with any medications you are taking to your follow up visit. Our treatment cannot replace ongoing medical care by a primary care provider outside of the emergency department. Thank you for allowing the [facility] team to be part of your care today. Your coumadin level is too high. Do not take your coumadin for 3 days (today is ). Start taking it on Sunday. Follow up with our clinic this coming Sunday for coumadin level check and further management. Prescriptions: MetFORMIN [glucoPHAGE] 1,000 mg PO BID #14 tab Referrals: Administrative Assistant Coordinator Service [Outside] - Follow up with primary FAMILY PROVIDER,NO [Primary Care Provider] - Follow up with primary Karen Pillai MD [Medical Doctor] - Follow up with primary Forms: [facility] (Tajik)
[2018-04-11 20:01] LABS: PARTIAL THROMBOPLASTIN TIME 57.2 Seconds (26.9-38.3); PROTHROMBIN TIME 104.1 SECONDS (9.4-12.5)
[2018-04-11 20:02] LABS: INR 9.47
[2018-04-11 21:55] VITALS: BP 125/84; PULSE 74; O2SAT 96
--- NOTE | 2018-04-12 00:23 | CARD ---
APPROVED REPORT Date of service: 04/11/2018 EKG Measurement Heart [id number] <Conclusion> Pacer rhythm. Underlying rhythm is atrial fibrillation. Ventricular pacemaker with 1:1 capture Abnormal ECG
== END 2018-04-11 21:10 | disposition home or self-care (01) ==
LOC: ED 17:02
DX: I50.9 Heart failure, unspecified (principal); R79.1 Abnormal coagulation profile; E11.65 Type 2 diabetes mellitus with hyperglycemia; I10 Essential (primary) hypertension; Z87.891 Personal history of nicotine dependence; B19.20 Unspecified viral hepatitis C without hepatic coma; Z21 Asymptomatic human immunodeficiency virus [HIV] infection status; Z86.718 Personal history of other venous thrombosis and embolism

== ENCOUNTER 2018-05-04 17:24 | Inpatient (IN) | payer MEDICARE, OTHER ==
[2018-05-04 17:24] VITALS: PULSE 74
--- NOTE | 2018-05-04 17:36 | ED PDOC ---
Arrival/HPI - General Historian: Patient - History of Present Illness Narrative History of Present Illness (Text): 05/04/18 17:29 57 y/o male, pmh including htn/hiv/hep c./dvt/a.fibb(coumadin)/chf, allergic to queitapine, biba c/o chest pain/cough/sob x 2 days with no recent traveling. Pt. stated that he has been coughing, unable to bring up the phelgm, associated with chest pain and shortness of breath, taking coumadin now, no night sweat, no rash, no dizziness, no fever or chills, no night sweat, no numbness or tingling, no other medical or psychological complaints. PMD: Dr. Horan. Past Medical History - Provider Review Nursing Documentation Reviewed: Yes - Infectious Disease Hx of Infectious Diseases: None - Tetanus Immunization Tetanus Immunization: Unknown - Cardiac Hx Cardiac Disorders: Yes Hx Angina: Yes Hx Cardiac Arrhythmia: Yes Hx Circulatory Problems: Yes Hx Congestive Heart Failure: Yes Hx Hypertension: Yes Hx Internal Defibrillator: Yes Hx Pacemaker: Yes Hx Peripheral Edema: Yes Hx Peripheral Vascular Disease: Yes - Pulmonary Hx Respiratory Disorders: Yes Hx Bronchitis: Yes Hx Chronic Obstructive Pulmonary Disease (COPD): Yes Hx Emphysema: Yes Hx Pneumonia: Yes Hx Respiratory Tract Infection: Yes Hx Sleep Apnea: Yes - Neurological Hx Neurological Disorder: Yes Hx Dizziness: Yes - HEENT Hx HEENT Disorder: Yes Hx Blind: Yes (HX eye sugery) Hx Deafness: Yes - Renal Hx Renal Disorder: No - Endocrine/Metabolic Hx Endocrine Disorders: Yes Hx Adrenal Cancer: Yes Hx Diabetes Mellitus Type 2: Yes - Hematological/Oncological Hx Blood Disorders: No - Integumentary Hx Dermatological Disorder: No - Musculoskeletal/Rheumatological Hx Musculoskeletal Disorders: Yes Hx Arthritis: Yes Hx Falls: Yes Hx Fractures: Yes Hx Osteoarthritis: Yes Hx Unsteady Gait: Yes - Gastrointestinal Hx Gastrointestinal Disorders: Yes (gastric bypass surgery) Hx Gastroesophageal Reflux: Yes - Genitourinary/Gynecological Hx Genitourinary Disorders: Yes - Psychiatric Hx Psychophysiologic Disorder: Yes Hx Anxiety: Yes Hx Bipolar Disorder: Yes Hx Depression: Yes Hx Substance Use: No - Past Surgical History Past Surgical History: Non-Contributing - Surgical History Hx Cardiac Catheterization: Yes Hx Coronary Stent: Yes Hx Gastric Bypass Surgery: Yes - Anesthesia Hx Anesthesia: Yes Hx Anesthesia Reactions: No Hx Malignant Hyperthermia: No - Suicidal Assessment Feels Threatened In Home Enviroment: No Family/Social History - Physician Review Nursing Documentation Reviewed: Yes Family/Social History: Unknown Family HX Smoking Status: Former Smoker Hx Alcohol Use: No Hx Substance Use: No Hx Substance Use Treatment: No Allergies/Home Meds Allergies/Adverse Reactions: Allergies quetiapine fumarate [From Seroquel] Adverse Reaction (Verified 05/04/18 17:44) ANAPHYLAXIS wild berries Allergy (Intermediate, Uncoded 05/04/18 17:44) RASH Home Medications: Home Meds Medication Instructions Recorded Confirmed Warfarin [Coumadin] 7 mg PO 1800 02/17/18 02/17/18 Review of Systems - Review of Systems Constitutional: absent: Fatigue, Fevers Eyes: absent: Vision Changes ENT: absent: Hearing Changes Respiratory: SOB, Cough, Sputum, Wheezing Cardiovascular: Chest Pain Gastrointestinal: absent: Abdominal Pain, Diarrhea, Nausea, Vomiting Musculoskeletal: absent: Arthralgias, Back Pain Skin: absent: Rash, Pruritis Neurological: absent: Headache, Dizziness Psychiatric: absent: Anxiety, Depression Physical Exam - Systems Exam Head: Present: Atraumatic, Normocephalic Pupils: Present: PERRL Extroacular Muscles: Present: EOMI Conjunctiva: Present: Normal Mouth: Present: Moist Mucous Membranes Neck: Present: Normal Range of Motion Respiratory/Chest: Present: Wheezes, Decreased Breath Sounds, Rhonchi. No: Respiratory Distress, Accessory Muscle Use, Rales, Retracting, Tachypneic Cardiovascular: Present: Regular Rate and Rhythm, Normal S1, S2, Other (2+ pedal edema noted bilaterally on the lower extremities). No: Murmurs, Irregular Rhythm, Peripheal Pulses Present, Tachycardic, Rub, Gallop, Muffled Abdomen: No: Tenderness, Distention, Peritoneal Signs, Rebound, Guarding Back: Present: Normal Inspection Upper Extremity: Present: Normal Inspection, NORMAL PULSES, Neurovascularly Intact, Capillary Refill < 2s. No: Cyanosis, Edema Lower Extremity: Present: Normal Inspection, NORMAL PULSES, Neurovascularly Intact, Capillary Refill < 2 s. No: Edema Neurological: Present: GCS=15, CN II-XII Intact, Speech Normal, Motor Func Grossly Intact, Gait Normal, Memory Normal Skin: Present: Warm, Dry, Normal Color. No: Rashes Psychiatric: Present: Alert, Oriented x 3, Normal Insight, Normal Concentration Medical Decision Making ED Course and Treatment: 05/04/18 17:37 -labs -ekg -cxr -IV solumedrol/duoneb/observe and reassess 05/04/18 19:01 -Pt. has chronic lower back pain and chronically on percocet 10/325, due for his dose and he is requesting, 1 tablet of percocet 10/325 ordered. 05/04/18 19:25 -EKG Paced Rhythm @ 70 BPM, no acute ST or T wave changes compared with previous ekgs, confirmed with Dr. Eason there is no acute AL/STEMI. -Chest xray ER wet read: +cardiomegally. -Labs show no acute findings except Mg 1.4 (mgsul 2gm IV ordered), -PT/INR: 3.5 (within therapeutic level). -Trop is 0.04 from 0.06, Aspirin ordered -BNP 2690 from 2200, Lasix 20mg IV -Pt. still having wheezing, needs admission for rule out ACS and COPD/CHF treatment -Paging the patient's pmd Dr. Horan for admission. 05/04/18 19:26 -I spoke to Dr. Horan, recommend to admit this patient under the hospitalist service, paging hopitalist. 05/04/18 19:35 -I spoke to Dr. Rossy Barrett and the ophthalmic medical assistant, discussed about the case and she agreed to admit this patient which they would continue the care. - RAD Interpretation Radiology Orders: Chest xray: no active disease Manager Inspection: Radiologist - EKG Interpretation EKG Interpretation (Text): 05/04/18 18:06 Paced Rhythm @ 70 BPM, no acute ST or T wave changes compared with previous ekgs. Interpreted by ED Physician: Yes Type: 12 lead EKG Comparison: Com.w/previous EKG - PA / CERTIFIED NURSE PRACTITIONER / Resident Statement MD/DO has reviewed & agrees with the documentation as recorded. Disposition/Present on Arrival - Present on Arrival Any Indicators Present on Arrival: No History of DVT/PE: Yes History of Uncontrolled Diabetes: Yes Urinary Catheter: No History of Decub. Ulcer: No History Surgical Site Infection Following: None - Disposition Have Diagnosis and Disposition been Completed?: Yes Diagnosis: Congestive heart failure (CHF), COPD (chronic obstructive pulmonary disease), Chest pain Disposition: HOSPITALIZED Disposition Time: 19:21 Patient Plan: Admission, Observation, Telemetry Patient Problems: Current Active Problems Problem Status Onset Congestive heart failure (CHF) Chronic COPD (chronic obstructive pulmonary disease) Chronic Chest pain Acute Chest pain, rule out acute myocardial infarction Acute Condition: GUARDED
[2018-05-04 17:39] VITALS: BMI 40.4
[2018-05-04 18:56] LABS: BASO # 0.04 K/mm3 (0.0-2.0); BASO % 0.5 % (0.0-3.0); EOS # 0.1 (0.0-0.7); EOS % 1.3 % (1.5-5.0); HEMOGLOBIN 11.1 g/dL (14.0-18.0); LYMPH # 1.2 (1.2-3.4); LYMPH % 13.9 % (22.0-35.0); MEAN CELL VOLUME 82.9 fl (80.0-105.0); MEAN CORPUSCULAR HEMOGLOBIN 25.6 pg (25.0-35.0); MEAN CORPUSCULAR HGB CONC 30.9 g/dl (31.0-37.0); MEAN PLATELET VOLUME 10.3 fl (7.0-11.0); MONO # 0.5 (0.1-0.6); RBC 4.33 10^6/uL (3.5-6.1); RED CELL DISTRIBUTION WIDTH 14.9 % (11.5-14.5); WHITE BLOOD COUNT 8.4 10^3/uL (4.5-11.0)
[2018-05-04] MEDS ORDERED: Oxycodone/Acetaminophen 10/325 mg Tab PO STA (19:00)
[2018-05-04 19:06] LABS: INR 3.5; PARTIAL THROMBOPLASTIN TIME 36.7 Seconds (26.9-38.3); PROTHROMBIN TIME 38.9 SECONDS (9.4-12.5)
[2018-05-04] MEDS: Albuterol-Ipratrop 3 mg / 0.5 (3 ml) UD IH SCH ×3 (19:07→19:24)
[2018-05-04 19:11] LABS: ALB/GLOB RATIO 1.3 (1.1-1.8); ALBUMIN 3.8 g/dL (3.0-4.8); ALT/SGPT 16 U/L (7-56); AST/SGOT 20 U/L (17-59); BLOOD UREA NITROGEN 19 mg/dL (7-21); CALCIUM 9.1 mg/dL (8.4-10.5); GFR NON-AFRICAN AMERICAN > 60
[2018-05-04] MEDS ORDERED: Magnesium Sulfate 2 gm/50 ml 2 GM/50 ML BAG IVPB ONE (19:12)
[2018-05-04 19:17] LABS: TROPONIN I 0.04 ng/mL
[2018-05-04 19:18] LABS: B-TYPE NATRIURETIC PEPTIDE 2690 pg/mL (0-450)
--- NOTE | 2018-05-04 21:59 | CP.PCM.HP ---
History of Present Illness - History of Present Illness History of Present Illness: [place], PGY1 Hospital H&P This is a 57 year old male with a past medical history of COPD on 2L home oxygen, systolic CHF with EF of 35% in 05/2017, obesity, WESLY, CAD s/p 2 stents, DM II, atrial fibrillation on Coumadin, history of DVT presenting to the hospital for SOB, non productive cough and associated chest pain for two days. Patient states chest pain occurs during coughing, non radiating and dull. Patient endorses current symptoms are similar to previous episodes of COPD exacerbation with the last episode occurring one month ago. He currently denies CP, SOB, nausea, vomiting, headaches, back pain, abdominal pain, numbness, tingling, swelling, constipation, diarrhea, recent travel, recent sickness, sick contacts at home, and recent lifestyle change including medication and diet changes. 12 point ROS noted here, otherwise unremarkable. PMH: COPD on 2L home oxygen, systolic CHF with EF of 35% in 05/2017, obesity, WESLY, CAD s/p 2 stents, DM II, atrial fibrillation on Coumadin, history of DVT Sx: Gastric bypass, left leg thrombectomy FH: Noncontributory SH: Former smoker, denies alcohol or drug use All: Seroquel and berries Medications: Reviewed, As per MAR Present on Admission - Present on Admission Any Indicators Present on Admission: Yes History of DVT/PE: Yes Past Patient History - Infectious Disease Hx of Infectious Diseases: None - Tetanus Immunizations Tetanus Immunization: Unknown - Past Medical History & Family History Past Medical History?: Yes - Past Social History Smoking Status: Former Smoker - CARDIAC Hx Cardiac Disorders: Yes Hx Angina: Yes Hx Cardia Arrhythmia: Yes Hx Circulatory Problems: Yes Hx Congestive Heart Failure: Yes Hx Hypertension: Yes Hx Internal Defibrillator: Yes Hx Pacemaker: Yes Hx Peripheral Edema: Yes Hx Peripheral Vascular Disease: Yes - PULMONARY Hx Respiratory Disorders: Yes Hx Bronchitis: Yes Hx Chronic Obstructive Pulmonary Disease (COPD): Yes Hx Emphysema: Yes Hx Pneumonia: Yes Hx Respiratory Tract Infection: Yes Hx Sleep Apnea: Yes - NEUROLOGICAL Hx Neurological Disorder: Yes Hx Dizziness: Yes - HEENT Hx HEENT Problems: Yes Hx Blind: Yes (HX eye sugery) Hx Deafness: Yes - RENAL Hx Chronic Kidney Disease: No - ENDOCRINE/METABOLIC Hx Endocrine Disorders: Yes Hx Adrenal Cancer: Yes Hx Diabetes Mellitus Type 2: Yes - HEMATOLOGICAL/ONCOLOGICAL Hx Blood Disorders: No - INTEGUMENTARY Hx Dermatological Problems: No - MUSCULOSKELETAL/RHEUMATOLOGICAL Hx Musculoskeletal Disorders: Yes Hx Arthritis: Yes Hx Falls: Yes Hx Fractures: Yes Hx Osteoarthritis: Yes Hx Unsteady Gait: Yes - GASTROINTESTINAL Hx Gastrointestinal Disorders: Yes (gastric bypass surgery) Hx Gastroesophageal Reflux: Yes - GENITOURINARY/GYNECOLOGICAL Hx Genitourinary Disorders: Yes - PSYCHIATRIC Hx Psychophysiologic Disorder: Yes Hx Anxiety: Yes Hx Bipolar Disorder: Yes Hx Depression: Yes Hx Substance Use: No - SURGICAL HISTORY Hx Cardiac Catheterization: Yes Hx Coronary Stent: Yes Hx Gastric Bypass Surgery: Yes - ANESTHESIA Hx Anesthesia: Yes Hx Anesthesia Reactions: No Hx Malignant Hyperthermia: No Meds Allergies/Adverse Reactions: Allergies Allergy/AdvReac Type Severity Reaction Status Date / Time quetiapine fumarate AdvReac ANAPHYLAXIS Verified 05/04/18 17:44 [From Seroquel] wild berries Allergy Intermediate RASH Uncoded 05/04/18 17:44 Physical Exam - Constitutional Appears: No Acute Distress - Head Exam Head Exam: ATRAUMATIC, NORMAL INSPECTION - Eye Exam Eye Exam: EOMI Pupil Exam: PERRL - ENT Exam ENT Exam: Mucous Membranes Moist - Respiratory Exam Respiratory Exam: absent: Accessory Muscle Use, Respiratory Distress Additional comments: B/L expiratory wheezing appreciated in the lung bases - Cardiovascular Exam Cardiovascular Exam: Irregular Rhythm, +S1, +S2 - GI/Abdominal Exam GI & Abdominal Exam: Normal Bowel Sounds, Soft. absent: Firm, Guarding, Tenderness - Extremities Exam Extremities exam: Positive for: normal inspection. Negative for: calf tenderness, tenderness Additional comments: +1 pitting edema B/L - Neurological Exam Neurological exam: Alert, CN II-XII Intact, Oriented x3 - Skin Skin Exam: Normal Color, Warm Results - Vital Signs Recent Vital Signs: Last Vital Signs Temp 98.2 F 05/04/18 18:02 Pulse 75 05/04/18 18:02 Resp 18 05/04/18 18:02 BP 138/76 05/04/18 19:39 Pulse Ox 98 05/04/18 18:02 - Labs Result Diagrams: 05/04/18 18:48 05/04/18 18:48 Labs: Laboratory Results - last 24 hr 05/04/18 05/04/18 05/04/18 18:48 18:48 18:48 WBC 8.4 RBC 4.33 Hgb 11.1 L Hct 35.9 L MCV 82.9 MCH 25.6 MCHC 30.9 L RDW 14.9 H Plt Count 205 MPV 10.3 Neut % (Auto) 78.3 H Lymph % (Auto) 13.9 L Dickinson % (Auto) 6.0 Eos % (Auto) 1.3 L Baso % (Auto) 0.5 Lymph # (Auto) 1.2 Dickinson # (Auto) 0.5 Eos # (Auto) 0.1 Baso # (Auto) 0.04 Absolute Neuts (auto) 6.56 H PT 38.9 H INR 3.50 APTT 36.7 Sodium 139 Potassium 4.3 Chloride 107 Carbon Dioxide 24 Anion Gap 12 BUN 19 Creatinine 1.0 Est GFR ( Amer) > 60 Est GFR (Non-Af Amer) > 60 Random Glucose 180 H Calcium 9.1 Magnesium 1.4 L Total Bilirubin 0.5 AST 20 ALT 16 Alkaline Phosphatase 84 Troponin I 0.04 D NT-Pro-B Natriuret Pep 2690 H Total Protein 6.7 Albumin 3.8 Globulin 2.9 Albumin/Globulin Ratio 1.3 Assessment & Plan - Assessment and Plan (Free Text) Assessment: This is a 57 year old male with a past medical history of COPD on 2L home oxygen, systolic CHF with EF of 35% in 05/2017, obesity, WESLY, CAD s/p 2 stents, DM II, atrial fibrillation on Coumadin, history of DVT presenting to the hospital for SOB, non productive cough and associated chest pain for two days. Plan: ACS R/O -initial EKG shows paced rhythm of 70bpm, no ST wave changes -initial troponin is 0.04 from 0.06 last month -trend troponins, EKG in the AM COPD exacerbation -CXR shows cardiomegaliy, await final read -duonebs prn and thu -solumedrol 40mg q12 -zithromax day 1 Hx of systolic CHF -echo in 05/2017 showed EF of 35%, RVSP of 35. Left atrium, right ventricle, right atrium dilation. Pacemaker lead in right ventricle -BNP is 2600 today from 2200 last month -continue home lasix 80mg BID, lisinopril 2.5mg, metalozone 5mg MWF, sprinolactone 25mg BID -echo pending -pulm on consult, Dr. Barrett for right heart strain Hx of afib on coumadin -INR is 3.5 -continue coumadin 4mg -continue home diltiazem 30mg BID -daily INR checks Hypomagnesia -repleted, f/u -continue MgO2 400mg TID Hx of RLS -continue requip Hx of DM -ISS medium scale -levemir 10mg HS Hx of Peripheral neuropathy -continue home gabapentin 300mg BID PPX -protonix and SCD -HHD Patient seen and case discussed with attending, Kylie Rodriguez
[2018-05-04] MEDS ORDERED: Albuterol-Ipratrop 3 mg / 0.5 (3 ml) UD IH PRN (22:16)
[2018-05-05] MEDS: Oxycodone/Acetaminophen 10/325 mg Tab PO PRN ×2 (02:46→10:01)
[2018-05-05] MEDS: Albuterol-Ipratrop 3 mg / 0.5 (3 ml) UD IH SCH ×4 (03:18→20:28)
[2018-05-05] MEDS: Pantoprazole 40 mg EC Tab PO SCH (05:10)
[2018-05-05 07:02] LABS: HEMOGLOBIN 10.5 g/dL (14.0-18.0); LYMPH # 0.3 (1.2-3.4); LYMPH % 4.8 % (22.0-35.0); MEAN CELL VOLUME 83.3 fl (80.0-105.0); MEAN CORPUSCULAR HEMOGLOBIN 25.5 pg (25.0-35.0); MEAN CORPUSCULAR HGB CONC 30.6 g/dl (31.0-37.0); MEAN PLATELET VOLUME 10.5 fl (7.0-11.0); MONO % 0.4 % (1.0-6.0); PLATELET COUNT 185 10^3/uL (120.0-450.0); RBC 4.12 10^6/uL (3.5-6.1); WHITE BLOOD COUNT 6.7 10^3/uL (4.5-11.0)
[2018-05-05 07:07] LABS: INR 2.77; PROTHROMBIN TIME 31.3 SECONDS (9.4-12.5)
[2018-05-05 07:16] LABS: TROPONIN I 0.04 ng/mL
[2018-05-05 07:52] LABS: ALB/GLOB RATIO 1.3 (1.1-1.8); ALBUMIN 3.7 g/dL (3.0-4.8); ALT/SGPT 9 U/L (7-56); AST/SGOT 15 U/L (17-59); BLOOD UREA NITROGEN 25 mg/dL (7-21); CALCIUM 8.8 mg/dL (8.4-10.5); GFR NON-AFRICAN AMERICAN 57
[2018-05-05 08:15] LABS: LYMPHOCYTE 6 % (22.0-35.0); MONOCYTE 1 % (1.0-6.0); NEUTROPHIL 93 % (50.0-70.0)
[2018-05-05] MEDS: Insulin Lispro (humaLOG) MEDIUM Coverage SC SCH ×4 (08:18→21:26)
--- NOTE | 2018-05-05 08:50 | CARD ---
APPROVED REPORT Date of service: 05/04/2018 EKG Measurement Heart [id number] <Conclusion> Ventricular paced rhythm Underlying atrial fibrillation Abnormal ECG
[2018-05-05] MEDS: Magnesium Oxide 400 mg Tab UD PO SCH ×3 (09:48→17:47)
[2018-05-05] MEDS: MethylPREDNISolone 40 mg Vial IVP SCH ×2 (09:48→21:09)
[2018-05-05] MEDS: Azithromycin 500MG/NS 250ml 500 MG/250 ML BAG IVPB SCH (09:49)
--- NOTE | 2018-05-05 13:49 | RAD ---
Date of service: 05/04/2018 HISTORY: Cough and shortness of breath.. COMPARISON: Comparison 04/11/2018 FINDINGS: LUNGS: Mild bibasilar atelectasis. Questionable small bilateral effusions PLEURA: As above. No pneumothorax apparent. CARDIOVASCULAR: no aortic atherosclerotic calcification present. Heart remains enlarged. No change bipolar pacemaker/defibrillator. No pulmonary vascular congestion. OSSEOUS STRUCTURES: No significant abnormalities. VISUALIZED UPPER ABDOMEN: Normal. OTHER FINDINGS: None. IMPRESSION: No active disease.
--- NOTE | 2018-05-05 17:37 | CON ---
DATE: 05/05/2018 CARDIOLOGY CONSULT I started dictation, but with some reason, it was interrupted on this patient and I would start again. HISTORY OF PRESENT ILLNESS: The patient is 57 years old, morbidly obese male, chronic obstructive lung disease, on nasal O2 at home. He presented because of shortness of breath, chest tightness as well as worsening of his leg swelling. The patient denies any history of coronary artery disease. He underwent cardiac catheterization few years ago by Dr. Rajan, which revealed unremarkable left coronary circulation and normal left ventricular systolic function. The patient has a history of permanent pacemaker placement 2 years ago and has a history of atrial fibrillation in the past and is on Coumadin therapy. The patient stated he underwent peripheral vascular intervention on his left lower extremity some 2 years ago. SOCIAL HISTORY: Nonsmoker. MEDICATIONS: Aldactone 25 mg twice a day, Cardizem 30 mg b.i.d., Coumadin 4 mg daily, Desyrel 150 mg once a day, albuterol inhaler, Lasix 60 mg intravenously every 12 hours, magnesium oxide 400 mg t.i.d., gabapentin 300 mg twice a day, Solu-Medrol 40 mg intravenously every 12 hours, Zaroxolyn 5 mg Sunday, Sunday, and Sunday; Zestril 2.5 mg daily, and Zithromax 500 mg intravenously daily. REVIEW OF SYSTEMS: No fever or chills. No productive cough. No dizziness or syncope. PHYSICAL EXAMINATION GENERAL: The patient is morbidly obese male, who does not appear to be in acute distress. VITAL SIGNS: Blood pressure 123/73, heart rate 71, temperature 97.6, and respirations 18. HEENT: Normocephalic. CHEST: Bilateral rhonchi. HEART: S1 and S2, regular. ABDOMEN: Soft. EXTREMITIES: 2+ pitting edema. . LABORATORY DATA: Today's hemoglobin and hematocrit 10.5 and 34.3, white count and platelet count are within normal limits. Today's SMA-7; sodium 136, potassium 5.2, chloride 103, CO2 of 23, glucose 416, BUN 25, and creatinine 1.3. Troponin was 0.04 three times. ProBNP is 2690. INR is 2.77 today and yesterday was 3.5. Chest x-ray revealed cardiomegaly, dual-chamber biventricular pacemaker in ICD lead. Mild venous congestion. Venous Doppler of lower extremity last month revealed no evidence of DVT. Transesophageal echocardiographic study in 05/2017 revealed severely depressed left ventricular systolic function with ejection fraction in the range of 25% to 30%, moderately dilated left and right atrium. No evidence of endocarditis. ASSESSMENT 1. congestive heart failure. 2. chronic obstructive lung disease. 3. Morbid obesity. 4. Uncontrolled diabetes mellitus. 5. Mild anemia. RECOMMENDATIONS: Continue Aldactone 25 mg twice a day, Cardizem 30 mg twice a day, Coumadin 4 mg once a day, Lasix 60 mg intravenously twice a day, Zaroxolyn 5 mg Sunday, Sunday, and Sunday; Zestril 2.5 mg daily, and Zithromax 500 mg intravenously daily. Obtain an echocardiogram. Jorge Flowers MD
[2018-05-05] MEDS: Insulin Detemir 100 units/ml Vial (Levemir) SC SCH ×2 (21:47→22:30)
--- NOTE | 2018-05-06 01:56 | CON ---
DATE: 05/05/2018 REFERRING PHYSICIAN: Micaela Barrett MD REASON FOR CONSULTATION: Cardiomyopathy, sleep apnea syndrome, morbid obesity, chronic lung disease. HISTORY OF PRESENT ILLNESS: This is a 57 years old gentleman well known to me from previous admission, noncompliant with followup, known history of chronic obstructive lung disease, oxygen dependent, cardiomyopathy with diastolic and systolic dysfunction, morbid obesity, known sleep apnea syndrome, noncompliant with CPAP, BiPAP, history of coronary artery disease, history of coronary stent, diabetes, atrial fibrillation, on anticoagulation, history of nonhealing ulcer which is much better and gone now, noncompliant with followup, comes in with cough, shortness of breath, leg swelling. Recently had right hip replaced. No hemoptysis or hematemesis. No hematuria, no diarrhea reported. PAST MEDICAL HISTORY: As per history of present illness. ALLERGIES: TO SEROQUEL AND FRUIT BERRIES. FAMILY HISTORY: No significant cardiopulmonary disease reported. SOCIAL HISTORY: Denying any active smoking at present. Alcohol abuse in the past. He had substance abuse and history of alcohol abuse. MEDICATIONS: He is on Aldactone 25 mg twice a day; Cardizem 30 mg twice a day; Coumadin 4 mg will be given; trazodone 150 mg h.s.; DuoNeb every 2 hours p.r.n. and every 6 hours round the clock; Lasix 60 mg twice a day; Levemir 10 units subcu h.s.; mag oxide 400 mg three times a day; gabapentin 300 mg twice a day; Percocet 10/325 one tablet every 12 hours p.r.n.; Protonix 40 mg daily; Requip 0.5 mg h.s.; Singulair 10 mg h.s.; Solu-Medrol 40 mg every 12 hours; Zaroxolyn 5 mg Sunday, Sunday, Sunday; Zestril 2.5 mg daily; Zithromax 500 mg daily. REVIEW OF SYSTEMS: No headache, no rhinitis. Has cough, shortness of breath. No chest pain. No nausea, no vomiting, no diarrhea. No dysuria. Does have leg swelling. PHYSICAL EXAMINATION: GENERA: Lying in the bed, mild distress secondary to shortness breath. VITAL SIGNS: Temp is 98, heart rate 70, respiratory rate is 20, blood pressure 117/73, pulse ox is 98% on nasal cannula. HEENT: Moist mucous membranes. Crowded airway. Mallampati score is 4. NECK: Supple. No JVD. LUNGS: Crackles at bases. Prolonged expiratory phase with few rhonchi. HEART: S1 and S2. ABDOMEN: Soft, nontender, nondistended. EXTREMITIES: Does have edema. NEUROLOGIC: Awake, alert, follows simple commands. LABORATORY DATA: Hemoglobin 10.5, hematocrit 34.3, WBC 6.7, platelet is 185. INR 2.7. Sodium 136, potassium 5.2, chloride 103, bicarbonate 23, BUN 25, creatinine 1.3, glucose 416, calcium is 8.8, phosphorus 4, magnesium 1.7, AST 15, ALT 9, alk phos is 82. Albumin is 3.7. ProBNP 2690. EKG done which shows ventricular paced rhythm, underlying, has atrial fibrillation. Chest x-ray done in ER shows no active pulmonary disease. IMPRESSION AND PLAN: Cardiomyopathy with congestive heart failure, coronary artery disease, history of coronary stent, sleep apnea syndrome, hypertension, history of atrial fibrillation requiring ablation, had automatic implantable cardioverter-defibrillator, history of gastroesophageal reflux disease, hypertension, peripheral neuropathy, status post right hip replacement, history of substance and alcohol abuse in the remote past. Spoke to pesticide use medical coordinator. Spoke to the patient today about sleep apnea, its relation to cardiomyopathy. He expressed understanding and will try to use CPAP. We will give him CPAP about 8 cm with 30% oxygen while sleeping with a nasal mask. Decrease Solu-Medrol to 20 every 12 hours. Continue diuretics. Gastric prophylaxis. On anticoagulation, fall precaution. We will recommend doing PFT and also attended sleep study upon discharge as outpatient. Thank you and we will follow with you. Tia Godinez MD
[2018-05-06] MEDS: Albuterol-Ipratrop 3 mg / 0.5 (3 ml) UD IH SCH ×4 (02:43→20:20)
[2018-05-06] MEDS: Pantoprazole 40 mg EC Tab PO SCH (05:37)
[2018-05-06 06:36] LABS: INR 2.24; PROTHROMBIN TIME 25.3 SECONDS (9.4-12.5)
[2018-05-06 06:44] LABS: HEMOGLOBIN 10.3 g/dL (14.0-18.0); LYMPH # 0.5 (1.2-3.4); MEAN CORPUSCULAR HEMOGLOBIN 25.1 pg (25.0-35.0); MEAN CORPUSCULAR HGB CONC 30.2 g/dl (31.0-37.0); MEAN PLATELET VOLUME 10.2 fl (7.0-11.0); MONO # 0.3 (0.1-0.6); MONO % 2.6 % (1.0-6.0); RBC 4.11 10^6/uL (3.5-6.1); RED CELL DISTRIBUTION WIDTH 15.3 % (11.5-14.5); WHITE BLOOD COUNT 12.1 10^3/uL (4.5-11.0)
[2018-05-06 06:51] LABS: ALB/GLOB RATIO 1.4 (1.1-1.8); ALBUMIN 3.9 g/dL (3.0-4.8)
--- NOTE | 2018-05-06 07:52 | CP.PCM.PN ---
Subjective - Date & Time of Evaluation Date of Evaluation: 05/06/18 Time of Evaluation: 06:40 - Subjective Subjective: Awake, alert, sitting on a chair, shortness of breath when lying down Reason for consultation and follow up: Cardiac evaluation of shortness of breath, history of chronic systolic congestive heart failure,coronary artery disease post stents, COPD Seen and examined by me and Dr. Rajan Objective - Vital Signs/Intake and Output Vital Signs (last 24 hours): Temp Pulse Resp BP Pulse Ox 97.6 F 69 18 120/70 97 05/06/18 06:00 05/06/18 06:00 05/06/18 06:00 05/06/18 06:00 05/06/18 06:00 Intake and Output: 05/06/18 05/06/18 06:59 18:59 Intake Total 670 Balance 670 - Medications Medications: Current Medications Albuterol/Ipratropium (Duoneb 3 Mg/0.5 Mg (3 Ml) Ud) 3 ml IH Q2H PRN PRN Reason: Shortness of Breath Albuterol/Ipratropium (Duoneb 3 Mg/0.5 Mg (3 Ml) Ud) 3 ml IH [id number] [facility] Last Admin: 05/06/18 07:36 Dose: 3 ml Diltiazem HCl (Cardizem) 30 mg PO BID [facility] Last Admin: 05/05/18 17:48 Dose: 30 mg Furosemide (Lasix) 60 mg IVP Q12 [facility] Last Admin: 05/05/18 21:09 Dose: 60 mg Gabapentin (Neurontin) 300 mg PO BID [facility]; Protocol Last Admin: 05/05/18 17:47 Dose: 300 mg Azithromycin (Zithromax 500mg In Ns) 500 mg in 250 mls @ 167 mls/hr IVPB DAILY [facility]; Protocol Last Admin: 05/05/18 09:49 Dose: 167 mls/hr Insulin Detemir (Levemir) 10 unit SC HS [facility] Last Admin: 05/05/18 22:30 Dose: 10 unit Insulin Human Lispro (Humalog Med) 0 units SC ACHS [facility]; Protocol Last Admin: 05/05/18 21:26 Dose: Not Given Lisinopril (Zestril) 2.5 mg PO DAILY [facility] Last Admin: 05/05/18 09:49 Dose: 2.5 mg Magnesium Oxide (Mag-Ox) 400 mg PO TID [facility] Last Admin: 05/05/18 17:47 Dose: 400 mg Methylprednisolone (Solu-Medrol) 40 mg IVP Q12 [facility] Last Admin: 05/05/18 21:09 Dose: 40 mg Metolazone (Zaroxolyn) 5 mg PO MWF [facility] Montelukast Sodium (Singulair) 10 mg PO HS [facility] Last Admin: 05/05/18 21:09 Dose: 10 mg Oxycodone/Acetaminophen (Percocet 10/325 Mg Tab) 1 tab PO BID PRN PRN Reason: Pain, severe (8-10) Last Admin: 05/05/18 10:01 Dose: 1 tab Pantoprazole Sodium (Protonix Ec Tab) 40 mg PO 0600 [facility] Last Admin: 05/06/18 05:37 Dose: 40 mg Ropinirole HCl (Requip) 0.5 mg PO [facility] Last Admin: 05/05/18 21:08 Dose: 0.5 mg Spironolactone (Aldactone) 25 mg PO BID [facility] Last Admin: 05/05/18 17:47 Dose: 25 mg Trazodone HCl (Desyrel) 150 mg PO [facility] Last Admin: 05/05/18 22:18 Dose: 150 mg Warfarin Sodium (Coumadin) 4 mg PO 1800 [facility]; Protocol Last Admin: 05/05/18 17:47 Dose: 4 mg - Labs Labs: 05/06/18 06:00 05/06/18 06:00 PT 25.3 SECONDS (9.4-12.5) H 05/06/18 06:00 INR 2.24 05/06/18 06:00 APTT 36.7 Seconds (26.9-38.3) 05/04/18 18:48 - Constitutional Appears: Non-toxic, No Acute Distress - Head Exam Head Exam: NORMAL INSPECTION, NORMOCEPHALIC - Eye Exam Eye Exam: Normal appearance Pupil Exam: NORMAL ACCOMODATION - ENT Exam ENT Exam: Mucous Membranes Moist - Neck Exam Neck Exam: Full ROM, Normal Inspection - Respiratory Exam Respiratory Exam: Decreased Breath Sounds, NORMAL BREATHING PATTERN - Cardiovascular Exam Cardiovascular Exam: +S1, +S2 Additional comments: AICD/PPM V- pacing at 70's - GI/Abdominal Exam GI & Abdominal Exam: Soft, Normal Bowel Sounds - Extremities Exam Additional comments: 3-4+ edema - Neurological Exam Neurological Exam: Alert, Awake, Oriented x3 - Psychiatric Exam Psychiatric exam: Normal Affect, Normal Mood - Skin Skin Exam: Dry, Normal Color, Warm Assessment and Plan - Assessment and Plan (Free Text) Assessment: A 57 year old male who came in to the ER due to shortness of breath for the past few days with non productive cough associated with chest pain especially when coughing. History of chronic systolic congestive heart failure, COPD on home oxygen, obesity, obstructive sleep apnea, diabetes,depression, anxiety, GERD, history of fall, atrial fibrillation on Coumadin, history of DVT, Gastric bypass, PVD, post angioplasty and drug eluding stent placement in the left tibioperoneal trunk, recent left hip replacement at [facility]. Recent CORA on showed LVEF 25%, moderate mitral regurgitation,mild to moderate tricuspid regurgitation, No vegetation. Previous Cardiac cath done on 10/2014 showed normal coronaries. Exacerbation of acute on chronic systolic congestive heart failure. Will start Primacor. Heart rate controlled. Blood pressure controlled. Plan: No distress but claimed to be short of breath lying down Will start Primacor , for 24-48 hours Continue to diurese Heart rate controlled Blood pressure controlled On Diltiazem 30 mg BID, Lasix 60 mg every 12 hours, Zestril 2.5 mg daily, Solumedrol 40 mg IV every 12 hours, Zaroxylyn 5 mg MWF, Aldactone 25 mg BID, Coumadin 4 mg daily Continue IV antibiotics as ordered Continue current treatment Continue current medications Will follow up Plan and treatment discussed with Dr. Rajan
[2018-05-06] MEDS: Insulin Lispro (humaLOG) MEDIUM Coverage SC SCH ×4 (08:17→22:46)
[2018-05-06] MEDS: MethylPREDNISolone 40 mg Vial IVP SCH ×2 (09:35→22:44)
[2018-05-06] MEDS: Azithromycin 500MG/NS 250ml 500 MG/250 ML BAG IVPB SCH (09:36)
[2018-05-06] MEDS: Milrinone 20mg/100ml D5W 100 ML IV PRN ×2 (09:37→15:53)
[2018-05-06] MEDS: Magnesium Oxide 400 mg Tab UD PO SCH ×3 (09:39→17:17)
[2018-05-06] MEDS ORDERED: metOLazone 5 MG TAB PO SCH (10:00)
--- NOTE | 2018-05-06 12:58 | PN ---
DATE: 05/06/2018 PULMONARY PROGRESS NOTE REFERRING PHYSICIAN: Ash Abbott MD SUBJECTIVE: The patient is sitting up in chair in room, no acute distress. Reports wearing CPAP machine for a couple of hours last night. States that he does not particularly like wearing CPAP machine, but is willing to continue to wear it. No headache, rhinitis, chest pain, abdominal pain, nausea, vomiting, diarrhea, leg pain. Reported cough and shortness of breath have improved, some leg swelling bilateral lower extremities. OBJECTIVE: VITAL SIGNS: Blood pressure 120/70, pulse 69, temperature 97.6, oxygen saturation 97% nasal cannula. GENERAL: No acute distress. HEENT: Moist mucous membrane. Mallampati score is 4. Crowded airway. NECK: Supple. No JVD. LUNGS: Few rhonchi bilaterally. CARDIOVASCULAR: S1, S2. ABDOMEN: Soft, nontender. No distention. No organomegaly. EXTREMITIES: Bilateral lower extremity edema. NEUROLOGIC: Awake, alert, very well follows command. MEDICATIONS: Reviewed. DuoNeb 3 mL inhalation every 2 hours p.r.n., DuoNeb 3 mL inhalation every 6 hours, Zithromax 500 mg daily, Cardizem 30 mg twice daily, Lasix 40 mg IV push every 12 hours, Neurontin 300 mg twice a day, Levemir 10 units subcutaneous at bedtime, Humalog sliding scale a.c., h.s., lisinopril 2.5 mg daily, magnesium oxide 400 mg three times a day, Solu-Medrol 20 mg every 12 hours, metolazone 5 mg Sunday, Sunday, Sunday, Primacor 20mg/100ml 13.778 mL/hour, Singulair 10 mg at bedtime, Percocet 10/325 mg twice a day p.r.n., Protonix 40 mg daily, Requip 0.5 mg at bedtime, spironolactone 25 mg twice a day, trazodone 150 mg at bedtime, Coumadin 4 mg daily. LABORATORY DATA: Reviewed, WBC 12.1, RBC 4.11, hemoglobin 10.3, hematocrit 31.4, platelets 197. PT is 25.3, INR 2.24. Sodium 135, potassium 5.2, chloride 100, carbon dioxide 27, anion gap 14, BUN 35, creatinine 1.5, GFR 40, random glucose 334, calcium 9, total bilirubin 0.6, AST 16, ALT 13, alkaline phosphatase 72, total protein 6.7, albumin 3.9, globulin 2.8, albumin globulin ratio 1.4. IMPRESSION AND PLAN: Cardiomyopathy with congestive heart failure, coronary artery disease, history of coronary stents, hypertension, history of atrial fibrillation requiring ablation, sleep apnea syndrome, had automatic implantable cardioverter-defibrillator placement, history of gastroesophageal reflux disease, hypertension, peripheral neuropathy, status post right hip replacement, history of substance and alcohol abuse in the remote past. Continue to encourage CPAP use at bedtime, sleep apnea precaution, head of bad elevated 45 degrees, continue steroids, gastric prophylaxis. The patient currently on anticoagulation therapy, fall precaution. We recommend patient to have full pulmonary function tests as well as attended sleep study as outpatient. Patient may need to use nasal pillow mask as outpatient. This patient was seen and examined with Dr. Godinez. Discussed assessment plan as described above. This patient was seen and examined by Francisco Yates APN. Discussed assessment and plan as described above. Thank you for this consult. We will follow. Francisco Yates APN Tia Godinez MD [facility]
[2018-05-06] MEDS: Oxycodone/Acetaminophen 10/325 mg Tab PO PRN (13:54)
--- NOTE | 2018-05-06 14:31 | CP.PCM.CON ---
<ComfortAdolfo - Last Filed: 05/06/18 18:17> History of Present Illness - History of Present Illness History of Present Illness: Nephrology consult note: Comfort PGY - 2 Reason For Consult: DORITA, Hyperkalemia 57 M with pertinent medical history of CHF with EF of 35%, DMII, and COPD presented to [facility] on 05/04/18 with shortness of breath and non- productive cough of two days. Upon admission, his BNP was 2690; tropes were found to be negative; of note, patient is on Aldactone and an SID-Inhibitor for his CHF with EF of 35% for mortality benefit. Nephro was consulted for hyperkalemia of 5.2 and DORITA with CR of 1.5. Review of Systems: 12 point ROS obtained and negative except as per HPI Surg Hx: Gastric bypass, left leg thrombectomy Med Hx: COPD (2L home O2), CHF (EF 35% in 05/2017), Obesity, WESLY, CAD s/p 2 stents, DM II, A-Fib, DVT All: Seroquel and berries SH: Former smoker, denies alcohol or drug use Home Meds Reviewed, As per MAR Fam Hx: Noncontributory Past Patient History - Infectious Disease Hx of Infectious Diseases: None - Tetanus Immunizations Tetanus Immunization: Unknown - Past Medical History & Family History Past Medical History?: Yes - Past Social History Smoking Status: Former Smoker - CARDIAC Hx Cardiac Disorders: Yes Hx Angina: Yes Hx Cardia Arrhythmia: Yes Hx Circulatory Problems: Yes Hx Congestive Heart Failure: Yes Hx Hypertension: Yes Hx Internal Defibrillator: Yes Hx Pacemaker: Yes Hx Peripheral Edema: Yes Hx Peripheral Vascular Disease: Yes - PULMONARY Hx Respiratory Disorders: Yes Hx Bronchitis: Yes Hx Chronic Obstructive Pulmonary Disease (COPD): Yes Hx Emphysema: Yes Hx Pneumonia: Yes Hx Respiratory Tract Infection: Yes Hx Sleep Apnea: Yes - NEUROLOGICAL Hx Neurological Disorder: Yes Hx Dizziness: Yes - HEENT Hx HEENT Problems: Yes Hx Blind: Yes (HX eye sugery) Hx Deafness: Yes - RENAL Hx Chronic Kidney Disease: No - ENDOCRINE/METABOLIC Hx Endocrine Disorders: Yes Hx Adrenal Cancer: Yes Hx Diabetes Mellitus Type 2: Yes - HEMATOLOGICAL/ONCOLOGICAL Hx Blood Disorders: No - INTEGUMENTARY Hx Dermatological Problems: No - MUSCULOSKELETAL/RHEUMATOLOGICAL Hx Musculoskeletal Disorders: Yes Hx Arthritis: Yes Hx Falls: Yes Hx Fractures: Yes Hx Osteoarthritis: Yes Hx Unsteady Gait: Yes - GASTROINTESTINAL Hx Gastrointestinal Disorders: Yes (gastric bypass surgery) Hx Gastroesophageal Reflux: Yes - GENITOURINARY/GYNECOLOGICAL Hx Genitourinary Disorders: Yes - PSYCHIATRIC Hx Psychophysiologic Disorder: Yes Hx Anxiety: Yes Hx Bipolar Disorder: Yes Hx Depression: Yes Hx Substance Use: No - SURGICAL HISTORY Hx Cardiac Catheterization: Yes Hx Coronary Stent: Yes Hx Gastric Bypass Surgery: Yes - ANESTHESIA Hx Anesthesia: Yes Hx Anesthesia Reactions: No Hx Malignant Hyperthermia: No Meds Allergies/Adverse Reactions: Allergies Allergy/AdvReac Type Severity Reaction Status Date / Time quetiapine fumarate AdvReac ANAPHYLAXIS Verified 05/04/18 17:44 [From Seroquel] wild berries Allergy Intermediate RASH Uncoded 05/04/18 17:44 - Medications Medications: Current Medications Albuterol/Ipratropium (Duoneb 3 Mg/0.5 Mg (3 Ml) Ud) 3 ml IH Q2H PRN PRN Reason: Shortness of Breath Albuterol/Ipratropium (Duoneb 3 Mg/0.5 Mg (3 Ml) Ud) 3 ml IH [id number] [facility] Last Admin: 05/06/18 13:13 Dose: Not Given Diltiazem HCl (Cardizem) 30 mg PO BID [facility] Last Admin: 05/06/18 09:38 Dose: 30 mg Furosemide (Lasix) 80 mg IVP 0800,1400 [facility] Stop: 05/06/18 23:59 Last Admin: 05/06/18 13:56 Dose: 80 mg Furosemide (Lasix) 40 mg IV 0800,1400 [facility] Gabapentin (Neurontin) 300 mg PO BID [facility]; Protocol Last Admin: 05/06/18 09:39 Dose: 300 mg Azithromycin (Zithromax 500mg In Ns) 500 mg in 250 mls @ 167 mls/hr IVPB DAILY [facility]; Protocol Last Admin: 05/06/18 09:36 Dose: 167 mls/hr Milrinone Lactate/Dextrose (Primacor 20mg/100ml D5w) 100 mls @ 13.778 mls/hr IV .Q7H16M PRN; Protocol PRN Reason: TITRATE PER MD ORDER Last Admin: 05/06/18 09:37 Dose: 0.375 mcg/kg/min, 13.778 mls/hr Insulin Detemir (Levemir) 10 unit SC [facility] Last Admin: 05/05/18 22:30 Dose: 10 unit Insulin Human Lispro (Humalog Med) 0 units SC [facility]; Protocol Last Admin: 05/06/18 12:35 Dose: 10 units Lisinopril (Zestril) 2.5 mg PO DAILY [facility] Last Admin: 05/05/18 09:49 Dose: 2.5 mg Magnesium Oxide (Mag-Ox) 400 mg PO TID [facility] Last Admin: 05/06/18 13:56 Dose: 400 mg Methylprednisolone (Solu-Medrol) 20 mg IVP Q12 [facility] Last Admin: 05/06/18 09:35 Dose: 20 mg Metolazone (Zaroxolyn) 5 mg PO DAILY [facility] Montelukast Sodium (Singulair) 10 mg PO [facility] Last Admin: 05/05/18 21:09 Dose: 10 mg Oxycodone/Acetaminophen (Percocet 10/325 Mg Tab) 1 tab PO BID PRN PRN Reason: Pain, severe (8-10) Last Admin: 05/06/18 13:54 Dose: 1 tab Pantoprazole Sodium (Protonix Ec Tab) 40 mg PO 0600 [facility] Last Admin: 05/06/18 05:37 Dose: 40 mg Ropinirole HCl (Requip) 0.5 mg PO [facility] Last Admin: 05/05/18 21:08 Dose: 0.5 mg Spironolactone (Aldactone) 25 mg PO BID [facility] Last Admin: 05/05/18 17:47 Dose: 25 mg Trazodone HCl (Desyrel) 150 mg PO [facility] Last Admin: 05/05/18 22:18 Dose: 150 mg Warfarin Sodium (Coumadin) 4 mg PO 1800 [facility]; Protocol Last Admin: 05/05/18 17:47 Dose: 4 mg Physical Exam - Constitutional Appears: Well - Head Exam Head Exam: ATRAUMATIC, NORMAL INSPECTION, NORMOCEPHALIC - Eye Exam Eye Exam: EOMI, Normal appearance, PERRL Pupil Exam: NORMAL ACCOMODATION, PERRL - ENT Exam ENT Exam: Mucous Membranes Moist, Normal Exam - Neck Exam Neck exam: Positive for: Normal Inspection - Respiratory Exam Respiratory Exam: Clear to Auscultation Bilateral, NORMAL BREATHING PATTERN - Cardiovascular Exam Cardiovascular Exam: REGULAR RHYTHM - GI/Abdominal Exam GI & Abdominal Exam: Normal Bowel Sounds, Soft. absent: Tenderness - Extremities Exam Extremities exam: Positive for: normal inspection Additional comments: Bilateral LE swelling - Back Exam Back exam: NORMAL INSPECTION - Neurological Exam Neurological exam: Alert, CN II-XII Intact, Normal Gait, Oriented x3, Reflexes Normal - Psychiatric Exam Psychiatric exam: Normal Affect, Normal Mood - Skin Skin Exam: Dry, Intact, Normal Color, Warm Results - Vital Signs Recent Vital Signs: Last Vital Signs Temp 97.6 F 05/06/18 06:00 Pulse 70 05/06/18 10:00 Resp 18 05/06/18 06:00 BP 145/72 05/06/18 13:56 Pulse Ox 97 05/06/18 06:00 - Labs Result Diagrams: 05/06/18 06:00 05/06/18 06:00 Labs: Laboratory Results - last 24 hr 05/06/18 05/06/18 05/06/18 06:00 06:00 06:00 WBC 12.1 H D RBC 4.11 Hgb 10.3 L Hct 34.1 L MCV 83.0 MCH 25.1 MCHC 30.2 L RDW 15.3 H Plt Count 197 MPV 10.2 Neut % (Auto) 93.4 H Lymph % (Auto) 4.0 L [place] % (Auto) 2.6 Eos % (Auto) 0.0 L Baso % (Auto) 0.0 Lymph # (Auto) 0.5 L [place] # (Auto) 0.3 Eos # (Auto) 0.0 Baso # (Auto) 0.00 Absolute Neuts (auto) 11.29 H PT 25.3 H INR 2.24 Sodium 135 Potassium 5.2 H Chloride 100 Carbon Dioxide 27 Anion Gap 14 BUN 35 H Creatinine 1.5 Est GFR ( Amer) 58 Est GFR (Non-Af Amer) 48 Random Glucose 334 H* Calcium 9.0 Total Bilirubin 0.6 AST 16 L ALT 13 Alkaline Phosphatase 72 Total Protein 6.7 Albumin 3.9 Globulin 2.8 Albumin/Globulin Ratio 1.4 Assessment & Plan - Assessment and Plan (Free Text) Assessment: 57 M with medical hx pertinent for CHF and DMII, nephro consulted for mild DORITA and hyperkalemia. Plan DORITA, likely Pre-Renal VS Diuretic use, on CKD, Stage III - Decrease home lasix dose - Urine lytes, Microalbuminuria/Cr ratio - Uric Acid Hyperkalemia, likely 2/2 DORITA with concomitant Aldactone and SID-I use - Currently holding Aldactone and Lisinopril CHF w/ Reduced EF - Recommend decreasing home Lasix; - Currently holding lisinopril 2.5mg and Aldactone 25 BID, see hyperkalemia below - Continue metalozone 5mg MWF - ECHO read pending <Salas Blackwood - Last Filed: 05/07/18 07:19> Meds - Medications Medications: Current Medications Albuterol/Ipratropium (Duoneb 3 Mg/0.5 Mg (3 Ml) Ud) 3 ml IH Q2H PRN PRN Reason: Shortness of Breath Albuterol/Ipratropium (Duoneb 3 Mg/0.5 Mg (3 Ml) Ud) 3 ml IH [id number] [facility] Last Admin: 05/07/18 02:22 Dose: Not Given Diltiazem HCl (Cardizem) 30 mg PO BID [facility] Last Admin: 05/06/18 17:17 Dose: 30 mg Furosemide (Lasix) 40 mg IV 0800,1400 [facility] Gabapentin (Neurontin) 300 mg PO BID [facility]; Protocol Last Admin: 05/06/18 17:17 Dose: 300 mg Azithromycin (Zithromax 500mg In Ns) 500 mg in 250 mls @ 167 mls/hr IVPB DAILY [facility]; Protocol Last Admin: 05/06/18 09:36 Dose: 167 mls/hr Milrinone Lactate/Dextrose (Primacor 20mg/100ml D5w) 100 mls @ 13.778 mls/hr IV .Q7H16M PRN; Protocol PRN Reason: TITRATE PER MD ORDER Last Admin: 05/07/18 01:13 Dose: 0.375 mcg/kg/min, 13.778 mls/hr Insulin Detemir (Levemir) 10 unit SC HS [facility] Last Admin: 05/06/18 22:46 Dose: 10 unit Insulin Human Lispro (Humalog Med) 0 units SC ACHS [facility]; Protocol Last Admin: 05/06/18 22:46 Dose: 2 units Lisinopril (Zestril) 2.5 mg PO DAILY [facility] Last Admin: 05/05/18 09:49 Dose: 2.5 mg Lorazepam (Ativan) 1 mg PO Q12H PRN; Protocol PRN Reason: Anxiety Last Admin: 05/06/18 22:55 Dose: 1 mg Magnesium Oxide (Mag-Ox) 400 mg PO TID [facility] Last Admin: 05/06/18 17:17 Dose: 400 mg Methylprednisolone (Solu-Medrol) 20 mg IVP Q12 [facility] Last Admin: 05/06/18 22:44 Dose: 20 mg Metolazone (Zaroxolyn) 5 mg PO DAILY [facility] Montelukast Sodium (Singulair) 10 mg PO HS [facility] Last Admin: 05/06/18 22:46 Dose: 10 mg Oxycodone/Acetaminophen (Percocet 10/325 Mg Tab) 1 tab PO BID PRN PRN Reason: Pain, severe (8-10) Last Admin: 05/06/18 13:54 Dose: 1 tab Pantoprazole Sodium (Protonix Ec Tab) 40 mg PO 0600 [facility] Last Admin: 05/07/18 06:20 Dose: 40 mg Ropinirole HCl (Requip) 0.5 mg PO [facility] Last Admin: 05/06/18 22:44 Dose: 0.5 mg Spironolactone (Aldactone) 25 mg PO BID [facility] Last Admin: 05/05/18 17:47 Dose: 25 mg Trazodone HCl (Desyrel) 150 mg PO [facility] Last Admin: 05/06/18 22:45 Dose: 150 mg Warfarin Sodium (Coumadin) 4 mg PO 1800 [facility]; Protocol Last Admin: 05/06/18 17:16 Dose: 4 mg Results - Vital Signs Recent Vital Signs: Last Vital Signs Temp 97.8 F 05/07/18 00:01 Pulse 70 05/07/18 02:00 Resp 18 05/07/18 00:01 BP 98/52 L 05/07/18 01:13 Pulse Ox 96 05/07/18 00:01 - Labs Result Diagrams: 05/06/18 06:00 05/06/18 06:00 Labs: Laboratory Results - last 24 hr 05/06/18 05/06/18 05/06/18 15:30 15:30 16:00 Lactic Acid 2.3 H Uric Acid Urine Color Straw Urine Appearance Clear Urine pH 5.0 Ur Specific Embudo 1.010 Urine Protein Negative Urine Glucose (UA) 250 H Urine Ketones Negative Urine Blood Negative Urine Nitrate Negative Urine Bilirubin Negative Urine Urobilinogen 0.2 Ur Leukocyte Esterase Trace H Urine RBC 0 - 2 Urine WBC 0 - 2 Ur Epithelial Cells None Urine Bacteria Small Ur Random Creatinine 14 Ur Random Sodium 115 Urine Total Volume Urine Microalbumin Microalb/Creat Ratio 05/06/18 05/06/18 05/06/18 17:00 17:00 17:00 Lactic Acid Uric Acid 9.7 H Urine Color Urine Appearance Urine pH Ur Specific Embudo Urine Protein Urine Glucose (UA) Urine Ketones Urine Blood Urine Nitrate Urine Bilirubin Urine Urobilinogen Ur Leukocyte Esterase Urine RBC Urine WBC Ur Epithelial Cells Urine Bacteria Ur Random Creatinine 16 L Ur Random Sodium Urine Total Volume <0.2 Urine Microalbumin < 6.0 Microalb/Creat Ratio Note Attending/Attestation - Attestation I have personally seen and examined this patient.: Yes I have fully participated in the care of the patient.: Yes I have reviewed all pertinent clinical information: Yes Notes (Text): Patient seen and examined; I agree with the resident's note as above with the following additions/edits: 57 yo M w/ pmh of COPD on 2L home oxygen, severe systolic CHF, obesity, WESLY, CAD s/p 2 stents, htn, DM II, atrial fibrillation on Coumadin, s/p DVT and mild CKD, presented with worsening dyspnea and admitted for CHF exacerbation, nephrology being consulted for acute kidney injury; Patient is s/p hip replacement surgery ~2 months ago; he reports weight after d/c in low 250's but subsequently has been gaining weight; he reports increased lower ext edema despite being on extensive diuretic regimen (lasix 80 mg bid, aldactone 25 mg bid, metolazone 5 mg qMWF); Currently patient with relatively clear lungs on exam but does have mildly elevated JVD and marked b/l lower ext edema; CXR image reviewed, possibly showing increased pulm vasc congestion; DORITA likely due to combination of aggressive diuresis as well as being started on milrinone with serum creat increasing from 1.0 -> 1.5 since admission; currently hemodynamically stable with robust BP readings; has underlying mild CKD that appears to be of cardiorenal etiology with no albuminuria; Hyperkalemia likely due to pre-renal state induced by diuretics as well as being on FARZANA blockade with aldactone and lisinopril; -will need to reduce diuretic regimen; given that patient has overall preserved baseline renal function, he should respond well to 40 mg IV lasix bid; -need to maintain strict I/O and daily standing weights; -recommend to stop milrinone and re-assess degree of diuresis (should aim for no more than net neg 2 kg per day); -avoid nephrotoxic agents; -agree with holding aldacone and lisinopril for now; should restart once renal function stabilizes; -will obtain renal US if renal function continues to decline;
--- NOTE | 2018-05-06 15:31 | CARD ---
APPROVED REPORT Date of service: 05/06/2018 EXAM: Two-dimensional and M-mode echocardiogram with Doppler and color Doppler. INDICATION Chest Pain Congestive Heart Failure 2D DIMENSIONS Left Atrium (2D)5.2 (1.6-4.0cm)IVSd1.3 (0.7-1.1cm) LVDd4.5 (3.9-5.9cm)PWd1.3 (0.7-1.1cm) LVDs3.7 (2.5-4.0cm)FS (%) 17.3 % LVEF (%)36.2 (>50%) M-Mode DIMENSIONS Aortic Root2.40 (2.2-3.7cm)Aortic Cusp Exc.1.70 (1.5-2.0cm) Aortic Valve AoV Peak Aikmdtne642.0cm/Susan Peak GR.8mmHg Mitral Valve E/A ratio0.0 TDI E/Lateral E'0.0E/Medial E'0.0 Tricuspid Valve TR Peak [id number] [id number] Peak Gr.14mmHg [id number] LEFT VENTRICLE The left ventricle is normal size. There is borderline concentric left ventricular hypertrophy. The systolic function is severely impaired. Apical motion consistent with pacemaker activation. No left ventricle thrombus noted on this study. RIGHT VENTRICLE The right ventricle is mildly dilated and severly hypokinetic There is a pacemaker lead in the right ventricle. ATRIA The left atrium is moderately dilated. The right atrium is moderately dilated. AORTIC VALVE The aortic valve is not well visualized and may be bicusped No aortic regurgitation is present. There is no aortic valvular stenosis. MITRAL VALVE The mitral valve is not well visualized. Mitral regurgitation is trace. TRICUSPID VALVE The tricuspid valve is normal in structure. There is no tricuspid valve regurgitation noted. GREAT VESSELS The aortic root is normal in size. The IVC is dilated. The IVC collapses <50% with inspiration. PERICARDIAL EFFUSION There is no pericardial effusion. <Conclusion> There is borderline concentric left ventricular hypertrophy. The systolic function is severely impaired. Apical motion consistent with pacemaker activation. The right ventricle is mildly dilated and severly hypokinetic
[2018-05-06 15:49] LABS: URINE BILIRUBIN NEGATIVE (NEGATIVE); URINE BLOOD NEGATIVE (NEGATIVE); URINE GLUCOSE (UA) 250 mg/dL (NEGATIVE); URINE LEUKOCYTE ESTERASE TRACE Leu/uL (NEGATIVE); URINE PROTEIN NEGATIVE mg/dL (<30 mg/dL); URINE UROBILINOGEN 0.2 E.U./dL (<1 E.U./dL)
--- NOTE | 2018-05-06 15:50 | CP.PCM.PN ---
<Simon Ramsey - Last Filed: 05/06/18 16:17> Subjective - Date & Time of Evaluation Date of Evaluation: 05/06/18 Time of Evaluation: 09:00 - Subjective Subjective: Simon Ramsey DO, PGY-1 Hospitalist Progress Note for Dr. Abbott Patient was seen and examined at bedside this AM. He reports his chest pain is i mproved but is still having persistent SOB worse with exertion and cough. Otherwise he denies fever/chills, palpitations, nausea/vomiting, or urinary complaints. Objective - Vital Signs/Intake and Output Vital Signs (last 24 hours): Temp Pulse Resp BP Pulse Ox 97.6 F 70 18 145/72 97 05/06/18 06:00 05/06/18 14:00 05/06/18 06:00 05/06/18 13:56 05/06/18 06:00 Intake and Output: 05/06/18 05/06/18 06:59 18:59 Intake Total 670 Balance 670 - Medications Medications: Current Medications Albuterol/Ipratropium (Duoneb 3 Mg/0.5 Mg (3 Ml) Ud) 3 ml IH Q2H PRN PRN Reason: Shortness of Breath Albuterol/Ipratropium (Duoneb 3 Mg/0.5 Mg (3 Ml) Ud) 3 ml IH [id number] [facility] Last Admin: 05/06/18 13:13 Dose: Not Given Diltiazem HCl (Cardizem) 30 mg PO BID [facility] Last Admin: 05/06/18 09:38 Dose: 30 mg Furosemide (Lasix) 80 mg IVP 0800,1400 [facility] Stop: 05/06/18 23:59 Last Admin: 05/06/18 13:56 Dose: 80 mg Furosemide (Lasix) 40 mg IV 0800,1400 [facility] Gabapentin (Neurontin) 300 mg PO BID [facility]; Protocol Last Admin: 05/06/18 09:39 Dose: 300 mg Azithromycin (Zithromax 500mg In Ns) 500 mg in 250 mls @ 167 mls/hr IVPB DAILY [facility]; Protocol Last Admin: 05/06/18 09:36 Dose: 167 mls/hr Milrinone Lactate/Dextrose (Primacor 20mg/100ml D5w) 100 mls @ 13.778 mls/hr IV .Q7H16M PRN; Protocol PRN Reason: TITRATE PER MD ORDER Last Admin: 05/06/18 09:37 Dose: 0.375 mcg/kg/min, 13.778 mls/hr Insulin Detemir (Levemir) 10 unit SC [facility] Last Admin: 05/05/18 22:30 Dose: 10 unit Insulin Human Lispro (Humalog Med) 0 units SC [facility]; Protocol Last Admin: 05/06/18 12:35 Dose: 10 units Lisinopril (Zestril) 2.5 mg PO DAILY [facility] Last Admin: 05/05/18 09:49 Dose: 2.5 mg Magnesium Oxide (Mag-Ox) 400 mg PO TID [facility] Last Admin: 05/06/18 13:56 Dose: 400 mg Methylprednisolone (Solu-Medrol) 20 mg IVP Q12 [facility] Last Admin: 05/06/18 09:35 Dose: 20 mg Metolazone (Zaroxolyn) 5 mg PO DAILY [facility] Montelukast Sodium (Singulair) 10 mg PO [facility] Last Admin: 05/05/18 21:09 Dose: 10 mg Oxycodone/Acetaminophen (Percocet 10/325 Mg Tab) 1 tab PO BID PRN PRN Reason: Pain, severe (8-10) Last Admin: 05/06/18 13:54 Dose: 1 tab Pantoprazole Sodium (Protonix Ec Tab) 40 mg PO 0600 [facility] Last Admin: 05/06/18 05:37 Dose: 40 mg Ropinirole HCl (Requip) 0.5 mg PO [facility] Last Admin: 05/05/18 21:08 Dose: 0.5 mg Spironolactone (Aldactone) 25 mg PO BID [facility] Last Admin: 05/05/18 17:47 Dose: 25 mg Trazodone HCl (Desyrel) 150 mg PO [facility] Last Admin: 05/05/18 22:18 Dose: 150 mg Warfarin Sodium (Coumadin) 4 mg PO 1800 [facility]; Protocol Last Admin: 05/05/18 17:47 Dose: 4 mg - Labs Labs: 05/06/18 06:00 05/06/18 06:00 PT 25.3 SECONDS (9.4-12.5) H 05/06/18 06:00 INR 2.24 05/06/18 06:00 APTT 36.7 Seconds (26.9-38.3) 05/04/18 18:48 - Constitutional Appears: Non-toxic, No Acute Distress - Head Exam Head Exam: ATRAUMATIC, NORMOCEPHALIC - Eye Exam Eye Exam: EOMI, PERRL Pupil Exam: PERRL - ENT Exam ENT Exam: Mucous Membranes Moist - Neck Exam Neck Exam: Full ROM, Normal Inspection - Respiratory Exam Respiratory Exam: Rhonchi, Wheezes (faint end expiratory wheezes). absent: Accessory Muscle Use, Chest Wall Tenderness, Rales, Respiratory Distress, Stridor - Cardiovascular Exam Cardiovascular Exam: REGULAR RHYTHM, RRR, +S1, +S2. absent: Gallop, Rubs, Murmur - GI/Abdominal Exam GI & Abdominal Exam: Soft, Normal Bowel Sounds. absent: Guarding, Tenderness - Extremities Exam Extremities Exam: Full ROM, Normal Inspection - Back Exam Back Exam: NORMAL INSPECTION - Neurological Exam Neurological Exam: Alert, Awake, Oriented x3 - Psychiatric Exam Psychiatric exam: Normal Affect, Normal Mood - Skin Skin Exam: Dry, Intact, Warm Assessment and Plan - Assessment and Plan (Free Text) Assessment: 57 yo M with PMH of COPD (on home O2 2L), systolic CHF (last EF 36%, s/p PPM and AICD placement), WESLY, CAD (s/p PTCA), DM2, AFib, and DVT presents with complaint of CP, SOB, and cough. He is admitted for management of COPD exacerbation with ACS r/o. Plan: Dyspnea Suspect most likely 2/2 acute on chronic exacerbation of COPD and/or uncontrolled WESLY Per Dr. Godinez, pt has a history of non-compliance with CPAP but is now amenable to using CPAP Wean solumedrol to 20 mg IVP q12h Continue supp O2 2L NC Continue duo-neb, zithromax, singulair Pulmonology following, all recs appreciated DORITA with hyperkalemia Increasing BUN/Cr above baseline noted since admission May be 2/2 volume depletion vs DORITA on CKD Hold aldactone Nephrology consult placed, all recs appreciated Systolic CHF with cardiomyopathy BNP appears to be around baseline Trop x 3 negative, per cardiology ACS is ruled out Milrinone drip started Continue home diuretics, diltiazem, coumadin Cardiology following closely, all recs appreciated WESLY/obesity hypoventilation syndrome Likely contributing to worsening SOB and cardiomyopathy After discussion with patient, he is now amenable to using home CPAP Continue home CPAP education Will discuss with case management regarding home CPAP Pulmonology following, all recs appreciated DM2 Has remained hyperglycemic despite insulin regimen May need to increase nightly levemir Consider endo consultation if continues to be hyperglycemic overnight AFib Continue diltiazem, coumadin F/u additional cardiology recs RLS Continue home requip Diabetic neuropathy Continue home gabapentin DVT/GI PPX: home coumadin/protonix Full Code HH, consistent CHO diet Monitor on telemetry Patient seen, examined, and plan discussed with my attending Emmett AldanaO. IM Resident PGY-1 Pager: [phone] <Ash Abbott - Last Filed: 05/06/18 18:20> Objective - Vital Signs/Intake and Output Vital Signs (last 24 hours): Temp Pulse Resp BP Pulse Ox 98.7 F 70 19 115/60 97 05/06/18 17:59 05/06/18 17:59 05/06/18 17:59 05/06/18 17:59 05/06/18 06:00 Intake and Output: 05/06/18 05/06/18 06:59 18:59 Intake Total 670 100 Balance 670 100 - Medications Medications: Current Medications Albuterol/Ipratropium (Duoneb 3 Mg/0.5 Mg (3 Ml) Ud) 3 ml IH Q2H PRN PRN Reason: Shortness of Breath Albuterol/Ipratropium (Duoneb 3 Mg/0.5 Mg (3 Ml) Ud) 3 ml IH [id number] [facility] Last Admin: 05/06/18 13:13 Dose: Not Given Diltiazem HCl (Cardizem) 30 mg PO BID [facility] Last Admin: 05/06/18 17:17 Dose: 30 mg Furosemide (Lasix) 80 mg IVP 0800,1400 [facility] Stop: 05/06/18 23:59 Last Admin: 05/06/18 13:56 Dose: 80 mg Furosemide (Lasix) 40 mg IV 0800,1400 [facility] Gabapentin (Neurontin) 300 mg PO BID [facility]; Protocol Last Admin: 05/06/18 17:17 Dose: 300 mg Azithromycin (Zithromax 500mg In Ns) 500 mg in 250 mls @ 167 mls/hr IVPB DAILY [facility]; Protocol Last Admin: 05/06/18 09:36 Dose: 167 mls/hr Milrinone Lactate/Dextrose (Primacor 20mg/100ml D5w) 100 mls @ 13.778 mls/hr IV .Q7H16M PRN; Protocol PRN Reason: TITRATE PER MD ORDER Last Admin: 05/06/18 15:53 Dose: 0.375 mcg/kg/min, 13.778 mls/hr Insulin Detemir (Levemir) 10 unit SC [facility] Last Admin: 05/05/18 22:30 Dose: 10 unit Insulin Human Lispro (Humalog Med) 0 units SC [facility]; Protocol Last Admin: 05/06/18 17:16 Dose: 8 units Lisinopril (Zestril) 2.5 mg PO DAILY [facility] Last Admin: 05/05/18 09:49 Dose: 2.5 mg Lorazepam (Ativan) 1 mg PO Q12H PRN; Protocol PRN Reason: Anxiety Magnesium Oxide (Mag-Ox) 400 mg PO TID [facility] Last Admin: 05/06/18 17:17 Dose: 400 mg Methylprednisolone (Solu-Medrol) 20 mg IVP Q12 [facility] Last Admin: 05/06/18 09:35 Dose: 20 mg Metolazone (Zaroxolyn) 5 mg PO DAILY [facility] Montelukast Sodium (Singulair) 10 mg PO HS [facility] Last Admin: 05/05/18 21:09 Dose: 10 mg Oxycodone/Acetaminophen (Percocet 10/325 Mg Tab) 1 tab PO BID PRN PRN Reason: Pain, severe (8-10) Last Admin: 05/06/18 13:54 Dose: 1 tab Pantoprazole Sodium (Protonix Ec Tab) 40 mg PO 0600 [facility] Last Admin: 05/06/18 05:37 Dose: 40 mg Ropinirole HCl (Requip) 0.5 mg PO HS [facility] Last Admin: 05/05/18 21:08 Dose: 0.5 mg Spironolactone (Aldactone) 25 mg PO BID [facility] Last Admin: 05/05/18 17:47 Dose: 25 mg Trazodone HCl (Desyrel) 150 mg PO HS [facility] Last Admin: 05/05/18 22:18 Dose: 150 mg Warfarin Sodium (Coumadin) 4 mg PO 1800 [facility]; Protocol Last Admin: 05/06/18 17:16 Dose: 4 mg - Labs Labs: 05/06/18 06:00 05/06/18 06:00 PT 25.3 SECONDS (9.4-12.5) H 05/06/18 06:00 INR 2.24 05/06/18 06:00 APTT 36.7 Seconds (26.9-38.3) 05/04/18 18:48 Attending/Attestation - Attestation I have personally seen and examined this patient.: Yes I have fully participated in the care of the patient.: Yes I have reviewed all pertinent clinical information, including history, physical exam and plan: Yes Notes (Text): 05/06/18 18:11 attending note; Patient seen and examined with resident. Complaining of exertional shortness of breath. Complaining of increased leg swelling. currently on IV primacor drip. denies any chest pain. Patient is a 57 year old male with PMH of COPD (on home O2 2L), systolic CHF (last EF 36%, s/p PPM and AICD placement), WESLY, CAD (s/p PTCA), DM2, AFib, and DVT presents with complaint of CP, SOB, and cough. He is admitted for management of COPD exacerbation with ACS r/o. 1. Acute on chronic syatolic chf; conrinue IV lasix. strict I/O. started on IV primacor by cardiology. Monitor daily weight. 2. acute exacerbation of COPD and/or uncontrolled WESLY non-compliance with CPAP but is now amenable to using CPAP Wean solumedrol to 20 mg IVP q12h Continue supp O2 2L NC Continue duo-neb, zithromax, singulair Pulmonology following, all recs appreciated 3.DORITA with hyperkalemia: low potassium diet ordered. get dietitian eval. Increasing BUN/Cr above baseline noted since admission May be 2/2 aggressive diuresis vs DORITA on CKD Hold aldactone Nephrology consult requested. 4.cardiomyopathy Trop x 3 negative. Milrinone drip started Continue home diuretics, diltiazem, coumadin Cardiology following closely, all recs appreciated 5.WESLY/obesity hypoventilation syndrome Likely contributing to worsening SOB and cardiomyopathy After discussion with patient, he is now amenable to using home CPAP Continue home CPAP education Will discuss with case management regarding home CPAP Pulmonology following, all recs appreciated 6.DM2: monitor FS closely. May need to increase nightly levemir since patient is on IV solumedrol. 7.AFib;Continue diltiazem, coumadin 8.RLS; Continue home requip 9.Diabetic neuropathy;Continue home gabapentin DVT/GI PPX: home coumadin/protonix monitor closely in telemetry.
[2018-05-06 15:58] LABS: URINE APPEARANCE CLEAR (CLEAR); URINE COLOR STRAW (YELLOW)
[2018-05-06 16:01] LABS: CREATININE,RANDOM URINE 14 mg/dL
[2018-05-06 16:28] LABS: URINE BACTERIA SMALL /hpf; URINE RBC 0 - 2 /hpf (0-2); URINE WBC 0 - 2 /hpf (0-6)
[2018-05-06] MEDS: Insulin Detemir 100 units/ml Vial (Levemir) SC SCH (22:46)
[2018-05-07] MEDS: Milrinone 20mg/100ml D5W 100 ML IV PRN ×4 (01:13→21:53)
[2018-05-07] MEDS: Albuterol-Ipratrop 3 mg / 0.5 (3 ml) UD IH SCH ×4 (02:22→19:41)
[2018-05-07] MEDS: Pantoprazole 40 mg EC Tab PO SCH (06:20)
--- NOTE | 2018-05-07 06:49 | CP.PCM.PN ---
Subjective - Date & Time of Evaluation Date of Evaluation: 05/07/18 Time of Evaluation: 06:25 - Subjective Subjective: Awake, alert, lying in bed, denies shortness of breath Reason for consultation and follow up: Cardiac evaluation of shortness of breat h, history of chronic systolic congestive heart failure,coronary artery disease post stents, COPD Seen and examined by me and Dr. Rajan Objective - Vital Signs/Intake and Output Vital Signs (last 24 hours): Temp Pulse Resp BP Pulse Ox 97.8 F 70 18 98/52 L 96 05/07/18 00:01 05/07/18 02:00 05/07/18 00:01 05/07/18 01:13 05/07/18 00:01 Intake and Output: 05/06/18 05/07/18 18:59 06:59 Intake Total 488 100 Output Total 1400 Balance 488 -1300 - Medications Medications: Current Medications Albuterol/Ipratropium (Duoneb 3 Mg/0.5 Mg (3 Ml) Ud) 3 ml IH Q2H PRN PRN Reason: Shortness of Breath Albuterol/Ipratropium (Duoneb 3 Mg/0.5 Mg (3 Ml) Ud) 3 ml IH [id number] [facility] Last Admin: 05/07/18 02:22 Dose: Not Given Diltiazem HCl (Cardizem) 30 mg PO BID [facility] Last Admin: 05/06/18 17:17 Dose: 30 mg Furosemide (Lasix) 40 mg IV 0800,1400 [facility] Gabapentin (Neurontin) 300 mg PO BID [facility]; Protocol Last Admin: 05/06/18 17:17 Dose: 300 mg Azithromycin (Zithromax 500mg In Ns) 500 mg in 250 mls @ 167 mls/hr IVPB DAILY [facility]; Protocol Last Admin: 05/06/18 09:36 Dose: 167 mls/hr Milrinone Lactate/Dextrose (Primacor 20mg/100ml D5w) 100 mls @ 13.778 mls/hr IV .Q7H16M PRN; Protocol PRN Reason: TITRATE PER MD ORDER Last Admin: 05/07/18 01:13 Dose: 0.375 mcg/kg/min, 13.778 mls/hr Insulin Detemir (Levemir) [address] [facility] Last Admin: 02/18/19 22:46 Dose: 10 unit Insulin Human Lispro (Humalog Med) 0 units SC [facility]; Protocol Last Admin: 05/06/18 22:46 Dose: 2 units Lisinopril (Zestril) 2.5 mg PO DAILY [facility] Last Admin: 05/05/18 09:49 Dose: 2.5 mg Lorazepam (Ativan) 1 mg PO Q12H PRN; Protocol PRN Reason: Anxiety Last Admin: 05/06/18 22:55 Dose: 1 mg Magnesium Oxide (Mag-Ox) 400 mg PO TID [facility] Last Admin: 05/06/18 17:17 Dose: 400 mg Methylprednisolone (Solu-Medrol) 20 mg IVP Q12 [facility] Last Admin: 05/06/18 22:44 Dose: 20 mg Metolazone (Zaroxolyn) 5 mg PO DAILY [facility] Montelukast Sodium (Singulair) 10 mg PO HS [facility] Last Admin: 05/06/18 22:46 Dose: 10 mg Oxycodone/Acetaminophen (Percocet 10/325 Mg Tab) 1 tab PO BID PRN PRN Reason: Pain, severe (8-10) Last Admin: 05/06/18 13:54 Dose: 1 tab Pantoprazole Sodium (Protonix Ec Tab) 40 mg PO 0600 [facility] Last Admin: 05/07/18 06:20 Dose: 40 mg Ropinirole HCl (Requip) 0.[address] [facility] Last Admin: 05/06/18 22:44 Dose: 0.5 mg Spironolactone (Aldactone) 25 mg PO BID [facility] Last Admin: 05/05/18 17:47 Dose: 25 mg Trazodone HCl (Desyrel) [address] [facility] Last Admin: 05/06/18 22:45 Dose: 150 mg Warfarin Sodium (Coumadin) 4 mg PO 1800 [facility]; Protocol Last Admin: 05/06/18 17:16 Dose: 4 mg - Labs Labs: 05/06/18 06:00 05/06/18 06:00 PT 25.3 SECONDS (9.4-12.5) H 05/06/18 06:00 INR 2.24 05/06/18 06:00 APTT 36.7 Seconds (26.9-38.3) 05/04/18 18:48 - Constitutional Appears: Non-toxic, No Acute Distress - Head Exam Head Exam: NORMAL INSPECTION, NORMOCEPHALIC - Eye Exam Eye Exam: Normal appearance Pupil Exam: NORMAL ACCOMODATION - ENT Exam ENT Exam: Mucous Membranes Moist, Normal Exam - Neck Exam Neck Exam: Full ROM - Respiratory Exam Respiratory Exam: Decreased Breath Sounds, Clear to Ausculation Bilateral, NORMAL BREATHING PATTERN - Cardiovascular Exam Cardiovascular Exam: +S1, +S2 Additional comments: AICD/PPM Vpacing 70's - GI/Abdominal Exam GI & Abdominal Exam: Soft, Normal Bowel Sounds - Extremities Exam Additional comments: 2-3+edema - Neurological Exam Neurological Exam: Alert, Awake, Oriented x3 - Psychiatric Exam Psychiatric exam: Normal Affect, Normal Mood - Skin Skin Exam: Dry, Normal Color, Warm Assessment and Plan - Assessment and Plan (Free Text) Assessment: A 57 year old male who came in to the ER due to shortness of breath for the past few days with non productive cough associated with chest pain especially when coughing. History of chronic systolic congestive heart failure, COPD on home oxygen, obesity, obstructive sleep apnea, diabetes,depression, anxiety, GERD, history of fall, atrial fibrillation on Coumadin, history of DVT, Gastric bypass, PVD, post angioplasty and drug eluding stent placement in the left tibioperoneal trunk, recent left hip [place] [facility] [place]. Recent CORA on 06/04/2017 showed LVEF 25%, moderate mitral regurgitation,mild to moderate tricuspid regurgitation, No vegetation. Previous Cardiac cath done on 10/2014 showed normal coronaries. Exacerbation of acute on chronic systolic congestive heart failure. Continue Primacor. Diurese. Heart rate controlled. Blood pressure controlled. Refusing CPAP/Bipap. Symptoms improving able to lie down sleeping after starting Primacor. Plan: Refusing CPAP/Bipap and nebulizer treatments No distress able to lie down sleeping with Primacor Continue Primacor Extra dose of Lasix given yesterday Continue to diurese Heart rate controlled Blood pressure controlled On Diltiazem 30 mg BID, Lasix 40 mg every BID Zestril 2.5 mg daily, Solumedrol 20 mg IV every 12 hours, Zaroxylyn 5 mg daily, Aldactone 25 mg BID, Coumadin 4 mg daily Continue IV antibiotics as ordered Continue current treatment Continue current medications Will follow up Plan and treatment discussed with Dr. Rajan
[2018-05-07 07:37] LABS: BASO # 0.01 K/mm3 (0.0-2.0); BASO % 0.1 % (0.0-3.0); HEMOGLOBIN 10.1 g/dL (14.0-18.0); LYMPH # 0.7 (1.2-3.4); MEAN CELL VOLUME 81.7 fl (80.0-105.0); MEAN CORPUSCULAR HEMOGLOBIN 25.4 pg (25.0-35.0); MEAN CORPUSCULAR HGB CONC 31.1 g/dl (31.0-37.0); MEAN PLATELET VOLUME 10.8 fl (7.0-11.0); MONO % 0.3 % (1.0-6.0); RBC 3.98 10^6/uL (3.5-6.1); WHITE BLOOD COUNT 11.8 10^3/uL (4.5-11.0)
[2018-05-07 07:56] LABS: LDL CHOLESTEROL 109 mg/dL (0-129)
[2018-05-07 07:59] LABS: ALB/GLOB RATIO 1.5 (1.1-1.8); ALBUMIN 3.7 g/dL (3.0-4.8); ALT/SGPT 17 U/L (7-56); AST/SGOT 14 U/L (17-59); BLOOD UREA NITROGEN 47 mg/dL (7-21); GFR NON-AFRICAN AMERICAN 52; HDL CHOLESTEROL 31 mg/dL (29-60)
[2018-05-07] MEDS: Insulin Lispro (humaLOG) MEDIUM Coverage SC SCH ×3 (09:00→17:21)
[2018-05-07 09:08] LABS: INR 2.2; PROTHROMBIN TIME 24.9 SECONDS (9.4-12.5)
[2018-05-07] MEDS: Oxycodone/Acetaminophen 10/325 mg Tab PO PRN (09:16)
[2018-05-07] MEDS: Magnesium Oxide 400 mg Tab UD PO SCH ×3 (09:16→17:21)
[2018-05-07] MEDS: MethylPREDNISolone 40 mg Vial IVP SCH (09:17)
[2018-05-07] MEDS ORDERED: Insulin Detemir 100 units/ml Vial (Levemir) SC SCH (10:05)
[2018-05-07] MEDS: metOLazone 5 MG TAB PO SCH (11:12)
[2018-05-07] MEDS: Azithromycin 500MG/NS 250ml 500 MG/250 ML BAG IVPB SCH (11:15)
--- NOTE | 2018-05-07 11:38 | CP.PCM.PN ---
<Danny Cox - Last Filed: 05/07/18 11:38> Subjective - Date & Time of Evaluation Date of Evaluation: 05/07/18 Time of Evaluation: 06:00 - Subjective Subjective: Patient seen and evaluated bedside in AM. No acute issues overnight. Patient states breathing is okay, swelling improving in the legs. Denies chest pain or SOB. Objective - Vital Signs/Intake and Output Vital Signs (last 24 hours): Temp Pulse Resp BP Pulse Ox 97.2 F L 70 19 113/63 98 05/07/18 06:00 05/07/18 09:20 05/07/18 06:00 05/07/18 09:20 05/07/18 06:00 Intake and Output: 05/07/18 05/07/18 06:59 18:59 Intake Total 100 640 Output Total 1400 1300 Balance -1300 -660 - Medications Medications: Current Medications Albuterol/Ipratropium (Duoneb 3 Mg/0.5 Mg (3 Ml) Ud) 3 ml IH Q2H PRN PRN Reason: Shortness of Breath Albuterol/Ipratropium (Duoneb 3 Mg/0.5 Mg (3 Ml) Ud) 3 ml IH [id number] [facility] Last Admin: 05/07/18 07:52 Dose: 3 ml Diltiazem HCl (Cardizem) 30 mg PO BID [facility] Last Admin: 05/07/18 09:20 Dose: 30 mg Furosemide (Lasix) 40 mg IV 0800,1400 [facility] Last Admin: 05/07/18 09:15 Dose: 40 mg Gabapentin (Neurontin) 300 mg PO BID [facility]; Protocol Last Admin: 05/07/18 09:18 Dose: 300 mg Azithromycin (Zithromax 500mg In Ns) 500 mg in 250 mls @ 167 mls/hr IVPB DAILY [facility]; Protocol Last Admin: 05/07/18 11:15 Dose: 167 mls/hr Milrinone Lactate/Dextrose (Primacor 20mg/100ml D5w) 100 mls @ 13.778 mls/hr IV .Q7H16M PRN; Protocol PRN Reason: TITRATE PER MD ORDER Last Admin: 05/07/18 07:03 Dose: 0.375 mcg/kg/min, 13.778 mls/hr Insulin Detemir (Levemir) [address] [facility] Insulin Human Lispro (Humalog Med) 0 units SC [facility]; Protocol Last Admin: 05/07/18 09:00 Dose: 8 units Lisinopril (Zestril) 2.5 mg PO DAILY [facility] Last Admin: 05/05/18 09:49 Dose: 2.5 mg Lorazepam (Ativan) 1 mg PO Q12H PRN; Protocol PRN Reason: Anxiety Last Admin: 05/06/18 22:55 Dose: 1 mg Magnesium Oxide (Mag-Ox) 400 mg PO TID [facility] Last Admin: 05/07/18 09:16 Dose: 400 mg Metolazone (Zaroxolyn) 5 mg PO DAILY [facility] Last Admin: 05/07/18 11:12 Dose: 5 mg Montelukast Sodium (Singulair) [address] [facility] Last Admin: 05/06/18 22:46 Dose: 10 mg Oxycodone/Acetaminophen (Percocet 10/325 Mg Tab) 1 tab PO BID PRN PRN Reason: Pain, severe (8-10) Last Admin: 05/07/18 09:16 Dose: 1 tab Pantoprazole Sodium (Protonix Ec Tab) 40 mg PO 0600 [facility] Last Admin: 05/07/18 06:20 Dose: 40 mg Prednisone (Prednisone Tab) 40 mg PO DAILY [facility] Ropinirole HCl (Requip) 0.[address] [facility] Last Admin: 05/06/18 22:44 Dose: 0.5 mg Spironolactone (Aldactone) 25 mg PO BID [facility] Last Admin: 05/05/18 17:47 Dose: 25 mg Trazodone HCl (Desyrel) [address] [facility] Last Admin: 05/06/18 22:45 Dose: 150 mg Warfarin Sodium (Coumadin) 4 mg PO 1800 [facility]; Protocol Last Admin: 05/06/18 17:16 Dose: 4 mg - Labs Labs: 05/07/18 07:15 05/07/18 07:00 PT 24.9 SECONDS (9.4-12.5) H 05/07/18 05:00 INR 2.20 05/07/18 05:00 APTT 36.7 Seconds (26.9-38.3) 05/04/18 18:48 - Constitutional Appears: No Acute Distress - Head Exam Head Exam: ATRAUMATIC, NORMAL INSPECTION, NORMOCEPHALIC - Eye Exam Eye Exam: Normal appearance - Respiratory Exam Respiratory Exam: Clear to Ausculation Bilateral, NORMAL BREATHING PATTERN - Cardiovascular Exam Cardiovascular Exam: REGULAR RHYTHM, +S1, +S2 - Extremities Exam Extremities Exam: Pedal Edema - Neurological Exam Neurological Exam: Alert, Awake, Oriented x3 Assessment and Plan - Assessment and Plan (Free Text) Assessment: 57 M with medical hx pertinent for CHF and DMII, nephro consulted for mild DORITA and hyperkalemia. Plan: DORITA, likely Pre-Renal VS Diuretic use, on CKD, Stage III - continue lasix 40 BID - Urine lytes, Microalbuminuria/Cr ratio Hyperkalemia, likely 2/2 DORITA with concomitant Aldactone and SID-I use - Currently holding Aldactone and Lisinopril - resolved, K was 4.8 - contine to monitor CHF w/ Reduced EF - Currently holding lisinopril 2.5mg and Aldactone 25 BID - Continue metalozone 5mg MWF - ECHO shows 36% EF with LVH, dilation of RV <Salas Blackwood - Last Filed: 05/08/18 06:52> Objective - Vital Signs/Intake and Output Vital Signs (last 24 hours): Temp Pulse Resp BP Pulse Ox 98.0 F 72 20 103/61 97 05/08/18 00:01 05/08/18 04:57 05/08/18 00:01 05/08/18 04:57 05/08/18 00:01 Intake and Output: 05/07/18 05/08/18 18:59 06:59 Intake Total 1140 2460 Output Total 1300 2600 Balance -160 -140 - Medications Medications: Current Medications Albuterol/Ipratropium (Duoneb 3 Mg/0.5 Mg (3 Ml) Ud) 3 ml IH Q2H PRN PRN Reason: Shortness of Breath Albuterol/Ipratropium (Duoneb 3 Mg/0.5 Mg (3 Ml) Ud) 3 ml IH [id number] [facility] Last Admin: 05/08/18 02:26 Dose: Not Given Azithromycin (Zithromax) 500 mg PO DAILY [facility] Diltiazem HCl (Cardizem) 30 mg PO BID [facility] Last Admin: 05/07/18 17:22 Dose: 30 mg Furosemide (Lasix) 40 mg IV 0800,1400 [facility] Last Admin: 05/07/18 13:13 Dose: 40 mg Gabapentin (Neurontin) 300 mg PO BID [facility]; Protocol Last Admin: 05/07/18 17:21 Dose: 300 mg Milrinone Lactate/Dextrose (Primacor 20mg/100ml D5w) 100 mls @ 13.778 mls/hr IV .Q7H16M PRN; Protocol PRN Reason: TITRATE PER MD ORDER Last Admin: 05/08/18 04:57 Dose: 0.375 mcg/kg/min, 13.778 mls/hr Insulin Detemir (Levemir) 20 unit [facility] Last Admin: 05/07/18 21:52 Dose: 20 unit Insulin Human Lispro (Humalog High) [address] [facility]; Protocol Last Admin: 05/07/18 21:52 Dose: 4 unit Lisinopril (Zestril) 2.5 mg PO DAILY [facility] Last Admin: 05/05/18 09:49 Dose: 2.5 mg Lorazepam (Ativan) 1 mg PO Q12H PRN; Protocol PRN Reason: Anxiety Last Admin: 05/07/18 13:14 Dose: 1 mg Magnesium Oxide (Mag-Ox) 400 mg PO TID [facility] Last Admin: 05/07/18 17:21 Dose: 400 mg Metolazone (Zaroxolyn) 5 mg PO DAILY [facility] Last Admin: 05/07/18 11:12 Dose: 5 mg Montelukast Sodium (Singulair) 10 mg PO HS [facility] Last Admin: 05/07/18 21:52 Dose: 10 mg Oxycodone/Acetaminophen (Percocet 10/325 Mg Tab) 1 tab PO BID PRN PRN Reason: Pain, severe (8-10) Last Admin: 05/07/18 09:16 Dose: 1 tab Pantoprazole Sodium (Protonix Ec Tab) 40 mg PO 0600 [facility] Last Admin: 05/08/18 05:22 Dose: 40 mg Prednisone (Prednisone Tab) 40 mg PO DAILY [facility] Ropinirole HCl (Requip) 0.5 mg PO HS [facility] Last Admin: 05/07/18 21:52 Dose: 0.5 mg Spironolactone (Aldactone) 25 mg PO BID [facility] Last Admin: 05/05/18 17:47 Dose: 25 mg Trazodone HCl (Desyrel) 150 mg PO HS [facility] Last Admin: 05/07/18 21:52 Dose: 150 mg Warfarin Sodium (Coumadin) 4 mg PO 1800 [facility]; Protocol Last Admin: 05/07/18 17:21 Dose: 4 mg - Labs Labs: 05/08/18 06:00 05/08/18 06:00 PT 31.6 SECONDS (9.4-12.5) H 05/08/18 06:00 INR 2.80 05/08/18 06:00 APTT 36.7 Seconds (26.9-38.3) 05/04/18 18:48 Attending/Attestation - Attestation I have personally seen and examined this patient.: Yes I have fully participated in the care of the patient.: Yes I have reviewed all pertinent clinical information, including history, physical exam and plan: Yes Notes (Text): Patient seen and examined; I agree with the resident's note as above with the following additions/edits: 57 yo M w/ pmh of COPD on 2L home oxygen, severe systolic CHF, obesity, WESLY, CAD s/p 2 stents, htn, DM II, atrial fibrillation on Coumadin, s/p DVT and mild CKD, admitted with acute decompensated CHF; DORITA improving; appears to be of cardiorenal etiology in the setting of systolic dysfunction; stable electrolyte status; IV lasix dose decreased to 40 mg bid, should be sufficient given stable renal function; hyperkalemia resolved after holding aldactone and lisinopril; will likely need to restart aldactone to prevent metabolic alkalosis, should monitor electrolytes close; still on inotropic support with milrinone, f/u with cardiology.
--- NOTE | 2018-05-07 12:27 | CP.PCM.APN ---
Subjective - Date & Time of Evaluation Date of Evaluation: 05/07/18 Time of Evaluation: 10:45 - Subjective Subjective: pt seen and examiend at bedside with rn and nursing care attendant pt reports he feels better is pleasant and conversational , pt reports cough and LAM Review of Systems - Constitutional Constitutional: As Per HPI - Cardiovascular Cardiovascular: Dyspnea on Exertion - Respiratory Respiratory: Cough Objective - Vital Signs/Intake and Output Vital Signs (last 24 hours): Temp Pulse Resp BP Pulse Ox 97.2 F L 70 19 113/63 98 05/07/18 06:00 05/07/18 09:20 05/07/18 06:00 05/07/18 09:20 05/07/18 06:00 Intake and Output: 05/07/18 05/07/18 06:59 18:59 Intake Total 100 640 Output Total 1400 1300 Balance -1300 -660 - Medications Medications: Current Medications Albuterol/Ipratropium (Duoneb 3 Mg/0.5 Mg (3 Ml) Ud) 3 ml IH Q2H PRN PRN Reason: Shortness of Breath Albuterol/Ipratropium (Duoneb 3 Mg/0.5 Mg (3 Ml) Ud) 3 ml IH [id number] [facility] Last Admin: 05/07/18 07:52 Dose: 3 ml Diltiazem HCl (Cardizem) 30 mg PO BID [facility] Last Admin: 05/07/18 09:20 Dose: 30 mg Furosemide (Lasix) 40 mg IV 0800,1400 [facility] Last Admin: 05/07/18 09:15 Dose: 40 mg Gabapentin (Neurontin) 300 mg PO BID [facility]; Protocol Last Admin: 05/07/18 09:18 Dose: 300 mg Azithromycin (Zithromax 500mg In Ns) 500 mg in 250 mls @ 167 mls/hr IVPB DAILY [facility]; Protocol Last Admin: 05/07/18 11:15 Dose: 167 mls/hr Milrinone Lactate/Dextrose (Primacor 20mg/100ml D5w) 100 mls @ 13.778 mls/hr IV .Q7H16M PRN; Protocol PRN Reason: TITRATE PER MD ORDER Last Admin: 05/07/18 07:03 Dose: 0.375 mcg/kg/min, 13.778 mls/hr Insulin Detemir (Levemir) 20 unit SC [facility] Insulin Human Lispro (Humalog Med) 0 units SC [facility]; Protocol Last Admin: 05/07/18 09:00 Dose: 8 units Lisinopril (Zestril) 2.5 mg PO DAILY [facility] Last Admin: 05/05/18 09:49 Dose: 2.5 mg Lorazepam (Ativan) 1 mg PO Q12H PRN; Protocol PRN Reason: Anxiety Last Admin: 05/06/18 22:55 Dose: 1 mg Magnesium Oxide (Mag-Ox) 400 mg PO TID [facility] Last Admin: 05/07/18 09:16 Dose: 400 mg Metolazone (Zaroxolyn) 5 mg PO DAILY [facility] Last Admin: 05/07/18 11:12 Dose: 5 mg Montelukast Sodium (Singulair) 10 mg PO HS [facility] Last Admin: 05/06/18 22:46 Dose: 10 mg Oxycodone/Acetaminophen (Percocet 10/325 Mg Tab) 1 tab PO BID PRN PRN Reason: Pain, severe (8-10) Last Admin: 05/07/18 09:16 Dose: 1 tab Pantoprazole Sodium (Protonix Ec Tab) 40 mg PO 0600 [facility] Last Admin: 05/07/18 06:20 Dose: 40 mg Prednisone (Prednisone Tab) 40 mg PO DAILY [facility] Ropinirole HCl (Requip) 0.5 mg PO HS [facility] Last Admin: 05/06/18 22:44 Dose: 0.5 mg Spironolactone (Aldactone) 25 mg PO BID [facility] Last Admin: 05/05/18 17:47 Dose: 25 mg Trazodone HCl (Desyrel) 150 mg PO [facility] Last Admin: 05/06/18 22:45 Dose: 150 mg Warfarin Sodium (Coumadin) 4 mg PO 1800 [facility]; Protocol Last Admin: 05/06/18 17:16 Dose: 4 mg - Labs Labs: 05/07/18 07:15 05/07/18 07:00 PT 24.9 SECONDS (9.4-12.5) H 05/07/18 05:00 INR 2.20 05/07/18 05:00 APTT 36.7 Seconds (26.9-38.3) 05/04/18 18:48 - Constitutional Appears: No Acute Distress - Head Exam Head Exam: NORMAL INSPECTION - Eye Exam Eye Exam: Normal appearance - ENT Exam ENT Exam: Mucous Membranes Moist - Respiratory Exam Respiratory Exam: Decreased Breath Sounds, NORMAL BREATHING PATTERN - Cardiovascular Exam Cardiovascular Exam: +S1, +S2 - GI/Abdominal Exam GI & Abdominal Exam: Soft, Normal Bowel Sounds Additional comments: obese - Extremities Exam Extremities Exam: Pedal Edema (2 to 3 plus ) - Psychiatric Exam Psychiatric exam: Normal Affect, Normal Mood Assessment and Plan - Assessment and Plan (Free Text) Plan: 57 yr old with pmh sig for chronic systolic chf, copd on home oxygen, anxiety, gerd, afib on coumadin, left hip replacement, dvt, pvd s/p left tibialporoneal stent who presenteed to the ED with c/o sob and cp with cough now admitted with cardialogy, pulmonary consultaitons for chf and copd exacerbation on IV milrinone drip as well Iv diuretics. pt with renal consultation noted as well for worsening kidney function with increase in serum cr. per discussion with Interdisc[facility] team, plan for TCU when medically stable discussed plan with pmd l will continue to follow clinical course BPCI/TIC - BPCIA/TIC Educated pt/family on BPCIA/CIR/Med to Bed Programs: Yes Flyers given, including CMS Beneficiary letter: Yes Pt/family verbalized understanding & agreed to program: Yes
--- NOTE | 2018-05-07 13:00 | PN ---
DATE: 05/07/2018 PULMONARY PROGRESS NOTE REFERRING PHYSICIAN: Ash Abbott MD SUBJECTIVE: The patient is sitting in chair in room, no acute distress. Reports not using CPAP machine last night. No headache, rhinitis, chest pain, abdominal pain, nausea, vomiting, diarrhea, leg pain reported. Has occasional cough and shortness of breath on exertion, some swelling to bilateral lower extremities. OBJECTIVE: VITAL SIGNS: Blood pressure 120/69, pulse 72, temperature 97.2, oxygen saturation 98% nasal cannula. GENERAL: No acute distress. HEENT: Moist mucous membranes. Crowded airway. Mallampati score is 4. NECK: Supple. No JVD. LUNGS: Rhonchi bilaterally. CARDIOVASCULAR: S1, S2 audible. ABDOMEN: Soft, nontender. No distention. No organomegaly. EXTREMITIES: Bilateral lower extremity edema. NEUROLOGIC: Awake, alert, verbal, follows command. MEDICATIONS: Reviewed. DuoNeb 3 mL inhalation every 2 hours p.r.n., DuoNeb 3 mL inhalation every 6 hours, Zithromax 500 mg daily, Cardizem 30 mg twice a day, Lasix 40 mg twice a day, Neurontin 300 mg twice a day, Levemir 20 units subcu h.s., Humalog sliding scale a.c.and h.s., lisinopril 2.5 mg daily, Ativan 1 mg every 12 hours p.r.n., magnesium oxide 400 mg three times a day, Solu-Medrol 20 mg every 12 hours, metolazone 5 mg daily, primacor 20 mg/100 mL at 13.778 mL/hour, Singulair 10 mg at bedtime, Percocet 10/325 mg one tablet twice a day p.r.n., Protonix 40 mg daily, Requip 0.5 mg at bedtime, Aldactone 25 mg twice a day, trazodone 150 mg at bedtime, Coumadin 4 mg daily. LABORATORY DATA: Reviewed. WBC 11.8, RBC 3.98, hemoglobin 10.1, hematocrit 32.5, platelets 195. PT is 24.9, INR 2.20. Sodium 136, potassium 4.8, chloride 96, carbon dioxide 27, anion gap 14, BUN 47, creatinine 1.4, GFR 52, random glucose 396. Uric acid 9.4, calcium 9, phosphorus 4, magnesium 1.9, total bilirubin 3.4, AST 14, ALT 17, alkaline phosphatase 70, total protein 6.2, albumin 3.7, globulin 2.5, albumin globulin ratio 1.5. Triglycerides 89, cholesterol 148, LDL cholesterol 109, HDL cholesterol 31. TSH 0.81. Urine random creatinine 16. Urine total volume less than 0.2. Urine microalbumin less than 6. Echocardiogram shows borderline concentric left ventricular hypertrophy, systolic function severely impaired, right ventricle is mildly dilated and severely hypokinetic, RVSP 24. IMPRESSION AND PLAN: Cardiomyopathy with congestive heart failure, coronary artery disease, history of coronary stents, history of atrial fibrillation requiring ablation, sleep apnea syndrome, automatic implantable cardioverter-defibrillator placement, history of gastroesophageal reflux disease, hypertension, peripheral neuropathy, status post right hip replacement, history of substance and alcohol abuse in the remote past. The patient with severely impaired systolic function. From pulmonary point of view, continue to encourage continuous positive airway pressure use at bedtime, sleep apnea precaution, head of bad elevated at 45 degrees, gastric prophylaxis. The patient currently on anticoagulation therapy. Continue diuretics, primacor, fall precautions. Continue current steroid dosing. Recommend physical therapy. Recommend this patient have full pulmonary function tests as outpatient as well as sleep study as outpatient. May benefit from the use of nasal pillow mask as an outpatient. This patient was seen and examined with Dr. Godinez. Discussed assessment plan as described above. This patient was seen and examined with Francisco Yates , nurse practitioner. Discussed assessment and plan as described above. Thank you for this consult. We will follow with you. Francisco Yates APN Tia Godinez MD [facility]
--- NOTE | 2018-05-07 13:09 | CP.PCM.PN ---
<Simon Ramsey - Last Filed: 05/07/18 14:36> Subjective - Date & Time of Evaluation Date of Evaluation: 05/07/18 Time of Evaluation: 09:00 - Subjective Subjective: Simon Ramsey DO, PGY-1 Hospitalist Progress Note for Dr. Abbott Patient was seen and examined at bedside this AM. He states he still does not fe el very well this AM but does feel less short of breath overall. He is still having congestion, cough, and dyspnea on exertion. Otherwise he denies fever/chills, CP, SOB at rest, nausea/vomiting, or urinary complaints. Objective - Vital Signs/Intake and Output Vital Signs (last 24 hours): Temp Pulse Resp BP Pulse Ox 97.5 F L 69 18 108/62 98 05/07/18 12:00 05/07/18 12:00 05/07/18 12:00 05/07/18 12:00 05/07/18 06:00 Intake and Output: 05/07/18 05/07/18 06:59 18:59 Intake Total 100 640 Output Total 1400 1300 Balance -1300 -660 - Medications Medications: Current Medications Albuterol/Ipratropium (Duoneb 3 Mg/0.5 Mg (3 Ml) Ud) 3 ml IH Q2H PRN PRN Reason: Shortness of Breath Albuterol/Ipratropium (Duoneb 3 Mg/0.5 Mg (3 Ml) Ud) 3 ml IH [id number] [facility] Last Admin: 05/07/18 07:52 Dose: 3 ml Diltiazem HCl (Cardizem) 30 mg PO BID [facility] Last Admin: 05/07/18 09:20 Dose: 30 mg Furosemide (Lasix) 40 mg IV 0800,1400 [facility] Last Admin: 05/07/18 09:15 Dose: 40 mg Gabapentin (Neurontin) 300 mg PO BID [facility]; Protocol Last Admin: 05/07/18 09:18 Dose: 300 mg Azithromycin (Zithromax 500mg In Ns) 500 mg in 250 mls @ 167 mls/hr IVPB DAILY [facility]; Protocol Last Admin: 05/07/18 11:15 Dose: 167 mls/hr Milrinone Lactate/Dextrose (Primacor 20mg/100ml D5w) 100 mls @ 13.778 mls/hr IV .Q7H16M PRN; Protocol PRN Reason: TITRATE PER MD ORDER Last Admin: 05/07/18 07:03 Dose: 0.375 mcg/kg/min, 13.778 mls/hr Insulin Detemir (Levemir) 20 unit SC HS [facility] Insulin Human Lispro (Humalog Med) 0 units SC [facility]; Protocol Last Admin: 05/07/18 09:00 Dose: 8 units Lisinopril (Zestril) 2.5 mg PO DAILY [facility] Last Admin: 05/05/18 09:49 Dose: 2.5 mg Lorazepam (Ativan) 1 mg PO Q12H PRN; Protocol PRN Reason: Anxiety Last Admin: 05/06/18 22:55 Dose: 1 mg Magnesium Oxide (Mag-Ox) 400 mg PO TID [facility] Last Admin: 05/07/18 09:16 Dose: 400 mg Metolazone (Zaroxolyn) 5 mg PO DAILY [facility] Last Admin: 05/07/18 11:12 Dose: 5 mg Montelukast Sodium (Singulair) 10 mg PO HS [facility] Last Admin: 05/06/18 22:46 Dose: 10 mg Oxycodone/Acetaminophen (Percocet 10/325 Mg Tab) 1 tab PO BID PRN PRN Reason: Pain, severe (8-10) Last Admin: 05/07/18 09:16 Dose: 1 tab Pantoprazole Sodium (Protonix Ec Tab) 40 mg PO 0600 [facility] Last Admin: 05/07/18 06:20 Dose: 40 mg Prednisone (Prednisone Tab) 40 mg PO DAILY [facility] Ropinirole HCl (Requip) 0.5 mg PO HS [facility] Last Admin: 05/06/18 22:44 Dose: 0.5 mg Spironolactone (Aldactone) 25 mg PO BID [facility] Last Admin: 05/05/18 17:47 Dose: 25 mg Trazodone HCl (Desyrel) 150 mg PO HS [facility] Last Admin: 05/06/18 22:45 Dose: 150 mg Warfarin Sodium (Coumadin) 4 mg PO 1800 [facility]; Protocol Last Admin: 05/06/18 17:16 Dose: 4 mg - Labs Labs: 05/07/18 07:15 05/07/18 07:00 PT 24.9 SECONDS (9.4-12.5) H 05/07/18 05:00 INR 2.20 05/07/18 05:00 APTT 36.7 Seconds (26.9-38.3) 05/04/18 18:48 - Constitutional Appears: Non-toxic, No Acute Distress - Head Exam Head Exam: ATRAUMATIC, NORMOCEPHALIC - Eye Exam Eye Exam: EOMI, PERRL - ENT Exam ENT Exam: Mucous Membranes Moist - Neck Exam Neck Exam: Full ROM, Normal Inspection - Respiratory Exam Respiratory Exam: Rhonchi (coarse breath sounds b/l improved from prior exams). absent: Accessory Muscle Use, Prolonged Expiratory Phase, Rales, Wheezes, Respiratory Distress - Cardiovascular Exam Cardiovascular Exam: REGULAR RHYTHM, RRR, +S1, +S2. absent: Gallop, Rubs, Murmur - GI/Abdominal Exam GI & Abdominal Exam: Soft, Normal Bowel Sounds. absent: Guarding, Tenderness - Extremities Exam Extremities Exam: Pedal Edema (1+ pitting edema b/l) - Back Exam Back Exam: NORMAL INSPECTION - Neurological Exam Neurological Exam: Alert, Awake, Normal Gait, Oriented x3 - Psychiatric Exam Psychiatric exam: Normal Affect, Normal Mood - Skin Skin Exam: Dry, Intact, Warm Assessment and Plan - Assessment and Plan (Free Text) Assessment: 57 yo M with PMH of COPD (on home O2 2L), systolic CHF (last EF 36%, s/p PPM and AICD placement), WESLY, CAD (s/p PTCA), DM2, AFib, and DVT presents with complaint of CP, SOB, and cough. He is admitted for management of COPD exacerbation with ACS r/o. Plan: Dyspnea Suspect most likely 2/2 acute on chronic exacerbation of COPD and/or uncontrolled WESLY Pt is now amenable to using CPAP at home Wean to PO prednisone 40 mg daily from IV solumedrol Continue supp O2 2L NC, duo-neb, zithromax, singulair Continue PT Pt evaluated by TCU today, he is a candidate for TCU and will plan on TCU after primacor drip is discontinued Pulmonology following, all recs appreciated DORITA with hyperkalemia BUN/Cr increased but stable this AM Per Nephro, suspect DORITA is most likely 2/2 cardiorenal syndrome and agressive diuresis Continue to hold aldactone, lisinopril, and d/c primacor drip as soon as possible, but need to continue for 48 additional hours per cardiology recs Continue to monitor closely Nephrology following, all recs appreciated Systolic CHF with cardiomyopathy Trop x 3 negative, per cardiology ACS is ruled out Primacor will need to be continued for 48 additional hours but d/c as soon as possible Continue home diuretics, diltiazem, coumadin Cardiology following closely, all recs appreciated WESLY/obesity hypoventilation syndrome Likely contributing to worsening SOB and cardiomyopathy After discussion with patient, he is now amenable to using home CPAP Patient to receive additional CPAP education while in TCU Discuss with case management for home CPAP arrangements prior to leaving TCU Pulmonology following, all recs appreciated DM2 Has remained hyperglycemic despite insulin regimen Increase levemir to 20 u HS, High ISS Consider endo consult if not improving AFib Continue diltiazem, coumadin F/u additional cardiology recs RLS Continue home requip Diabetic neuropathy Continue home gabapentin DVT/GI PPX: home coumadin/protonix Full Code HH, consistent CHO diet Monitor on telemetry Patient seen, examined, and plan discussed with my attending Dr. Milena Ramsey, D.O. IM Resident PGY-1 Pager: [phone] <Ash Abbott - Last Filed: 05/07/18 16:23> Objective - Vital Signs/Intake and Output Vital Signs (last 24 hours): Temp Pulse Resp BP Pulse Ox 97.5 F L 69 18 108/62 98 05/07/18 12:00 05/07/18 12:00 05/07/18 12:00 05/07/18 13:13 05/07/18 06:00 Intake and Output: 05/07/18 05/07/18 06:59 18:59 Intake Total 100 740 Output Total 1400 1300 Balance -1300 -560 - Medications Medications: Current Medications Albuterol/Ipratropium (Duoneb 3 Mg/0.5 Mg (3 Ml) Ud) 3 ml IH Q2H PRN PRN Reason: Shortness of Breath Albuterol/Ipratropium (Duoneb 3 Mg/0.5 Mg (3 Ml) Ud) 3 ml IH [id number] [facility] Last Admin: 05/07/18 14:11 Dose: 3 ml Azithromycin (Zithromax) 500 mg PO DAILY [facility] Diltiazem HCl (Cardizem) 30 mg PO BID [facility] Last Admin: 05/07/18 09:20 Dose: 30 mg Furosemide (Lasix) 40 mg IV 0800,1400 [facility] Last Admin: 05/07/18 13:13 Dose: 40 mg Gabapentin (Neurontin) 300 mg PO BID [facility]; Protocol Last Admin: 05/07/18 09:18 Dose: 300 mg Milrinone Lactate/Dextrose (Primacor 20mg/100ml D5w) 100 mls @ 13.778 mls/hr IV .Q7H16M PRN; Protocol PRN Reason: TITRATE PER MD ORDER Last Admin: 05/07/18 14:11 Dose: 0.375 mcg/kg/min, 13.778 mls/hr Insulin Detemir (Levemir) 20 unit SC [facility] Insulin Human Lispro (Humalog Med) 0 units SC [facility]; Protocol Last Admin: 05/07/18 12:35 Dose: 10 units Lisinopril (Zestril) 2.5 mg PO DAILY [facility] Last Admin: 05/05/18 09:49 Dose: 2.5 mg Lorazepam (Ativan) 1 mg PO Q12H PRN; Protocol PRN Reason: Anxiety Last Admin: 05/07/18 13:14 Dose: 1 mg Magnesium Oxide (Mag-Ox) 400 mg PO TID [facility] Last Admin: 05/07/18 13:15 Dose: 400 mg Metolazone (Zaroxolyn) 5 mg PO DAILY [facility] Last Admin: 05/07/18 11:12 Dose: 5 mg Montelukast Sodium (Singulair) 10 mg PO HS [facility] Last Admin: 05/06/18 22:46 Dose: 10 mg Oxycodone/Acetaminophen (Percocet 10/325 Mg Tab) 1 tab PO BID PRN PRN Reason: Pain, severe (8-10) Last Admin: 05/07/18 09:16 Dose: 1 tab Pantoprazole Sodium (Protonix Ec Tab) 40 mg PO 0600 [facility] Last Admin: 05/07/18 06:20 Dose: 40 mg Prednisone (Prednisone Tab) 40 mg PO DAILY [facility] Ropinirole HCl (Requip) 0.5 mg PO HS [facility] Last Admin: 05/06/18 22:44 Dose: 0.5 mg Spironolactone (Aldactone) 25 mg PO BID [facility] Last Admin: 05/05/18 17:47 Dose: 25 mg Trazodone HCl (Desyrel) 150 mg PO HS [facility] Last Admin: 05/06/18 22:45 Dose: 150 mg Warfarin Sodium (Coumadin) 4 mg PO 1800 [facility]; Protocol Last Admin: 05/06/18 17:16 Dose: 4 mg - Labs Labs: 05/07/18 07:15 05/07/18 07:00 PT 24.9 SECONDS (9.4-12.5) H 05/07/18 05:00 INR 2.20 05/07/18 05:00 APTT 36.7 Seconds (26.9-38.3) 05/04/18 18:48 Attending/Attestation - Attestation I have personally seen and examined this patient.: Yes I have fully participated in the care of the patient.: Yes I have reviewed all pertinent clinical information, including history, physical exam and plan: Yes Notes (Text): 05/07/18 16:18 attending note; Patient seen and examined with resident. Complaining of exertional shortness of breath. Complaining of increased leg swelling. currently on IV primacor drip. denies any chest pain. Patient is a 57 year old male with PMH of COPD (on home O2 2L), systolic CHF (last EF 36%, s/p PPM and AICD placement), WESLY, CAD (s/p PTCA), DM2, AFib, and DVT presents with complaint of CP, SOB, and cough. He is admitted for management of COPD exacerbation with ACS r/o. 1. Acute on chronic syatolic heart failure. conrinue IV lasix. started on IV primacor by cardiology. urine output is increasing. Weight is improving. 2. acute exacerbation of COPD and/or uncontrolled WESLY non-compliance with CPAP but is now amenable to using CPAP Wean solumedrol to 20 mg IVP q12h Continue supp O2 2L NC Continue duo-neb, zithromax, singulair 3.DORITA: creatinine is stable at 1.4. Hyperkalemia resolved. low potassium diet ordered. May be 2/2 aggressive diuresis vs DORITA on CKD Hold aldactone Nephrology consult appreciated. 4.cardiomyopathy Trop x 3 negative. on Milrinone drip. Continue home diuretics, diltiazem, coumadin Cardiology following closely, all recs appreciated 5.WESLY/obesity hypoventilation syndrome Likely contributing to worsening SOB and cardiomyopathy Continue home CPAP education 6.DM2: FS is still elevated. Levemir dosage increased. 7.AFib;Continue diltiazem, coumadin 8.RLS; Continue home requip 9.Diabetic neuropathy;Continue home gabapentin DVT/GI PPX: home coumadin/protonix monitor closely in telemetry. PT evaluation appreciated. TCU recommended. Transfer to TCU after stabilization.
[2018-05-07] MEDS: Insulin Lispro (HUMAlog) HIGH Coverage SC SCH (21:52)
[2018-05-08] MEDS ORDERED: Insulin Regular 1 UNITS/0.01 ML ML SC STA (02:24)
[2018-05-08] MEDS: Albuterol-Ipratrop 3 mg / 0.5 (3 ml) UD IH SCH ×3 (02:26→20:19)
[2018-05-08] MEDS: Milrinone 20mg/100ml D5W 100 ML IV PRN ×3 (04:57→20:29)
[2018-05-08] MEDS: Pantoprazole 40 mg EC Tab PO SCH (05:22)
[2018-05-08 06:27] LABS: INR 2.8; PROTHROMBIN TIME 31.6 SECONDS (9.4-12.5)
[2018-05-08 06:30] LABS: EOS % 0.1 % (1.5-5.0); HEMOGLOBIN 10.3 g/dL (14.0-18.0); LYMPH # 0.9 (1.2-3.4); LYMPH % 8.4 % (22.0-35.0); MEAN CELL VOLUME 80.9 fl (80.0-105.0); MEAN CORPUSCULAR HEMOGLOBIN 25.5 pg (25.0-35.0); MEAN CORPUSCULAR HGB CONC 31.5 g/dl (31.0-37.0); MEAN PLATELET VOLUME 9.8 fl (7.0-11.0); MONO # 0.6 (0.1-0.6); MONO % 5.3 % (1.0-6.0); RBC 4.04 10^6/uL (3.5-6.1); RED CELL DISTRIBUTION WIDTH 14.8 % (11.5-14.5); WHITE BLOOD COUNT 10.5 10^3/uL (4.5-11.0)
[2018-05-08 06:43] LABS: ALB/GLOB RATIO 1.5 (1.1-1.8); ALBUMIN 3.8 g/dL (3.0-4.8); ALT/SGPT 19 U/L (7-56); AST/SGOT 25 U/L (17-59); BLOOD UREA NITROGEN 42 mg/dL (7-21); CALCIUM 9.1 mg/dL (8.4-10.5); GFR NON-AFRICAN AMERICAN 57
--- NOTE | 2018-05-08 09:22 | CP.PCM.PN ---
<Simon Ramsey - Last Filed: 05/08/18 11:54> Subjective - Date & Time of Evaluation Date of Evaluation: 05/08/18 Time of Evaluation: 09:19 - Subjective Subjective: Simon Ramsey DO, PGY-1 Hospitalist Progress Note for Dr. Abbott Patient was seen and examined at bedside this AM. He reports feeling less SOB th is AM but is still having difficulty adjusting to CPAP machine at night. He states his CP has resolved since admission. He otherwise denies fever/chills, abdominal pain/nausea/vomiting, cough, noisy breathing, or urinary complaints. Objective - Vital Signs/Intake and Output Vital Signs (last 24 hours): Temp Pulse Resp BP Pulse Ox 97.8 F 64 18 124/76 97 05/08/18 06:00 05/08/18 06:00 05/08/18 06:00 05/08/18 06:00 05/08/18 06:00 Intake and Output: 05/08/18 05/08/18 06:59 18:59 Intake Total 2460 0 Output Total 2600 1750 Balance -140 -1750 - Medications Medications: Current Medications Albuterol/Ipratropium (Duoneb 3 Mg/0.5 Mg (3 Ml) Ud) 3 ml IH Q2H PRN PRN Reason: Shortness of Breath Albuterol/Ipratropium (Duoneb 3 Mg/0.5 Mg (3 Ml) Ud) 3 ml IH [id number] [facility] Last Admin: 05/08/18 07:43 Dose: 3 ml Azithromycin (Zithromax) 500 mg PO DAILY [facility] Diltiazem HCl (Cardizem) 30 mg PO BID [facility] Last Admin: 05/07/18 17:22 Dose: 30 mg Furosemide (Lasix) 40 mg IV 0800,1400 [facility] Last Admin: 05/07/18 13:13 Dose: 40 mg Gabapentin (Neurontin) 300 mg PO BID [facility]; Protocol Last Admin: 05/07/18 17:21 Dose: 300 mg Milrinone Lactate/Dextrose (Primacor 20mg/100ml D5w) 100 mls @ 13.778 mls/hr IV .Q7H16M PRN; Protocol PRN Reason: TITRATE PER MD ORDER Last Admin: 05/08/18 04:57 Dose: 0.375 mcg/kg/min, 13.778 mls/hr Insulin Detemir (Levemir) 20 unit SC HS [facility] Last Admin: 05/07/18 21:52 Dose: 20 unit Insulin Human Lispro (Humalog High) 0 units SC [facility]; Protocol Last Admin: 05/07/18 21:52 Dose: 4 unit Lisinopril (Zestril) 2.5 mg PO DAILY [facility] Last Admin: 05/05/18 09:49 Dose: 2.5 mg Lorazepam (Ativan) 1 mg PO Q12H PRN; Protocol PRN Reason: Anxiety Last Admin: 05/07/18 13:14 Dose: 1 mg Magnesium Oxide (Mag-Ox) 400 mg PO TID [facility] Last Admin: 05/07/18 17:21 Dose: 400 mg Metolazone (Zaroxolyn) 5 mg PO DAILY [facility] Last Admin: 05/07/18 11:12 Dose: 5 mg Montelukast Sodium (Singulair) 10 mg PO HS [facility] Last Admin: 05/07/18 21:52 Dose: 10 mg Oxycodone/Acetaminophen (Percocet 10/325 Mg Tab) 1 tab PO BID PRN PRN Reason: Pain, severe (8-10) Last Admin: 05/07/18 09:16 Dose: 1 tab Pantoprazole Sodium (Protonix Ec Tab) 40 mg PO 0600 [facility] Last Admin: 05/08/18 05:22 Dose: 40 mg Prednisone (Prednisone Tab) 40 mg PO DAILY [facility] Ropinirole HCl (Requip) 0.5 mg PO HS [facility] Last Admin: 05/07/18 21:52 Dose: 0.5 mg Spironolactone (Aldactone) 25 mg PO BID [facility] Last Admin: 05/05/18 17:47 Dose: 25 mg Trazodone HCl (Desyrel) 150 mg PO HS [facility] Last Admin: 05/07/18 21:52 Dose: 150 mg Warfarin Sodium (Coumadin) 4 mg PO 1800 [facility]; Protocol Last Admin: 05/07/18 17:21 Dose: 4 mg - Labs Labs: 05/08/18 06:00 05/08/18 06:00 PT 31.6 SECONDS (9.4-12.5) H 05/08/18 06:00 INR 2.80 05/08/18 06:00 APTT 36.7 Seconds (26.9-38.3) 05/04/18 18:48 - Constitutional Appears: Non-toxic, No Acute Distress - Head Exam Head Exam: ATRAUMATIC, NORMOCEPHALIC - Eye Exam Eye Exam: EOMI, PERRL - ENT Exam ENT Exam: Mucous Membranes Moist - Neck Exam Neck Exam: Full ROM, Normal Inspection - Respiratory Exam Respiratory Exam: Rhonchi (coarse breath sounds b/l), Wheezes (b/l end expiratory wheezes improved). absent: Accessory Muscle Use, Chest Wall Tenderness, Decreased Breath Sounds, Rales, Respiratory Distress, Stridor - Cardiovascular Exam Cardiovascular Exam: REGULAR RHYTHM, RRR, +S1, +S2. absent: Gallop, Rubs, Murmur - GI/Abdominal Exam GI & Abdominal Exam: Soft, Normal Bowel Sounds. absent: Guarding, Tenderness - Extremities Exam Extremities Exam: Pedal Edema (non-pitting edema b/l unchanged, likely at baseline). absent: Calf Tenderness - Back Exam Back Exam: NORMAL INSPECTION - Neurological Exam Neurological Exam: Alert, Awake, Normal Gait, Oriented x3 - Psychiatric Exam Psychiatric exam: Normal Affect, Normal Mood - Skin Skin Exam: Dry, Intact, Warm Assessment and Plan - Assessment and Plan (Free Text) Assessment: 57 yo M with PMH of COPD (on home O2 2L), systolic CHF (last EF 36%, s/p PPM and AICD placement), WESLY, CAD (s/p PTCA), DM2, AFib, and DVT presents with complaint of CP, SOB, and cough. He is admitted for management of COPD exacerbation with ACS r/o. ACS has been ruled out but, per cardiology, patient requires aggressive diuresis and primacor drip for an additional 24 hours prior to discharge to TCU for further PT/rehab. Plan: Dyspnea Suspect most likely 2/2 acute on chronic exacerbation of COPD and/or unco ntrolled WESLY Pt is now amenable to using CPAP at home Wean to PO prednisone 40 mg daily for one additional day, then 30 daily with continued taper Continue thu and PRN duo-neb, though pt has not been requiring PRN duo-neb Pt to go to TCU after primacor drip is discontinued in approximately 24 hours Pulmonology following, all recs appreciated Systolic CHF with cardiomyopathy Trop x 3 negative, ACS ruled out earlier in admission Primacor will need to be continued for 24 additional hours but d/c as soon as possible Continue home diuretics, diltiazem, coumadin Cardiology following closely, all recs appreciated DORITA with hyperkalemia BUN/Cr not increased this AM Per Nephro, suspect DORITA is most likely 2/2 cardiorenal syndrome and agressive diuresis D/c primacor drip as soon as possible, will d/c after 24 hours Resume aldactone, lisinopril after Nephrology following, all recs appreciated WESLY/obesity hypoventilation syndrome Likely contributing to worsening SOB and cardiomyopathy After discussion with patient, he is now amenable to using home CPAP Patient to continue CPAP management per Dr. Godinez Pulmonology following, all recs appreciated DM2 Has remained hyperglycemic despite insulin regimen, likely 2/2 steroid use Increase levemir to 30 u HS, High ISS AFib Continue diltiazem, coumadin F/u additional cardiology recs RLS Continue home requip Diabetic neuropathy Continue home gabapentin DVT/GI PPX: home coumadin/protonix Full Code HH, consistent CHO diet Monitor on telemetry Patient seen, examined, and plan discussed with my attending Dr. Milena Ramsey, D.O. IM Resident PGY-1 Pager: [phone] <Ash Abbott - Last Filed: 05/08/18 15:29> Objective - Vital Signs/Intake and Output Vital Signs (last 24 hours): Temp Pulse Resp BP Pulse Ox 98.4 F 72 18 121/80 97 05/08/18 12:00 05/08/18 14:00 05/08/18 12:00 05/08/18 13:55 05/08/18 06:00 Intake and Output: 05/08/18 05/08/18 06:59 18:59 Intake Total 2460 100 Output Total 2600 1750 Balance -140 -1650 - Medications Medications: Current Medications Albuterol/Ipratropium (Duoneb 3 Mg/0.5 Mg (3 Ml) Ud) 3 ml IH Q2H PRN PRN Reason: Shortness of Breath Albuterol/Ipratropium (Duoneb 3 Mg/0.5 Mg (3 Ml) Ud) 3 ml IH [id number] [facility] Last Admin: 05/08/18 07:43 Dose: 3 ml Azithromycin (Zithromax) 500 mg PO DAILY [facility] Last Admin: 05/08/18 09:34 Dose: 500 mg Diltiazem HCl (Cardizem) 30 mg PO BID [facility] Last Admin: 05/08/18 09:34 Dose: 30 mg Furosemide (Lasix) 40 mg IV 0800,1400 [facility] Last Admin: 05/08/18 13:55 Dose: 40 mg Gabapentin (Neurontin) 300 mg PO BID [facility]; Protocol Last Admin: 05/08/18 09:34 Dose: 300 mg Milrinone Lactate/Dextrose (Primacor 20mg/100ml D5w) 100 mls @ 13.778 mls/hr IV .Q7H16M PRN; Protocol PRN Reason: TITRATE PER MD ORDER Stop: 05/09/18 07:00 Last Admin: 05/08/18 13:53 Dose: 0.375 mcg/kg/min, 13.778 mls/hr Insulin Detemir (Levemir) 30 unit SC [facility] Insulin Human Lispro (Humalog High) 0 units SC [facility]; Protocol Last Admin: 05/08/18 12:21 Dose: 7 unit Lisinopril (Zestril) 2.5 mg PO DAILY [facility] Last Admin: 05/05/18 09:49 Dose: 2.5 mg Lorazepam (Ativan) 1 mg PO Q12H PRN; Protocol PRN Reason: Anxiety Last Admin: 05/07/18 13:14 Dose: 1 mg Magnesium Oxide (Mag-Ox) 400 mg PO TID [facility] Last Admin: 05/08/18 13:50 Dose: 400 mg Metolazone (Zaroxolyn) 5 mg PO DAILY [facility] Last Admin: 05/08/18 09:35 Dose: 5 mg Montelukast Sodium (Singulair) 10 mg PO HS [facility] Last Admin: 05/07/18 21:52 Dose: 10 mg Oxycodone/Acetaminophen (Percocet 10/325 Mg Tab) 1 tab PO BID PRN PRN Reason: Pain, severe (8-10) Last Admin: 05/08/18 13:50 Dose: 1 tab Pantoprazole Sodium (Protonix Ec Tab) 40 mg PO 0600 [facility] Last Admin: 05/08/18 05:22 Dose: 40 mg Prednisone (Prednisone Tab) 40 mg PO DAILY [facility] Last Admin: 05/08/18 09:34 Dose: 40 mg Ropinirole HCl (Requip) 0.5 mg PO HS [facility] Last Admin: 05/07/18 21:52 Dose: 0.5 mg Spironolactone (Aldactone) 25 mg PO BID [facility] Last Admin: 05/05/18 17:47 Dose: 25 mg Trazodone HCl (Desyrel) 150 mg PO HS [facility] Last Admin: 05/07/18 21:52 Dose: 150 mg Warfarin Sodium (Coumadin) 4 mg PO 1800 [facility]; Protocol Last Admin: 05/07/18 17:21 Dose: 4 mg - Labs Labs: 05/08/18 06:00 05/08/18 06:00 PT 31.6 SECONDS (9.4-12.5) H 05/08/18 06:00 INR 2.80 05/08/18 06:00 APTT 36.7 Seconds (26.9-38.3) 05/04/18 18:48 Attending/Attestation - Attestation I have personally seen and examined this patient.: Yes I have fully participated in the care of the patient.: Yes I have reviewed all pertinent clinical information, including history, physical exam and plan: Yes Notes (Text): 05/08/18 15:25 attending note; Patient seen and examined with resident. Complaining of exertional shortness of breath. Complaining of leg swelling. improving slowly. currently on IV primacor drip. denies any chest pain. Patient is a 57 year old male with PMH of COPD (on home O2 2L), systolic CHF (last EF 36%, s/p PPM and AICD placement), WESLY, CAD (s/p PTCA), DM2, AFib, and DVT presents with complaint of CP, SOB, and cough. He is admitted for management of COPD exacerbation with ACS r/o. 1. Acute on chronic syatolic heart failure. conrinue IV lasix. continue IV primacor by cardiology. urine output is increasing. Weight is improving. 2. acute exacerbation of COPD and/or uncontrolled WESLY non-compliance with CPAP but is now amenable to using CPAP taper po prednisone Continue O2 2L NC Continue duo-neb, zithromax, singulair 3.DORITA: creatinine is stable at 1.3. Hyperkalemia resolved. low potassium diet ordered. 4.cardiomyopathy Trop x 3 negative. on Milrinone drip. Continue home diuretics, diltiazem, coumadin. INR is therapeutic. 5.WESLY/obesity hypoventilation syndrome Likely contributing to worsening SOB and cardiomyopathy Continue home CPAP education 6.DM2: FS is still elevated. Levemir dosage increased. 7.AFib;Continue diltiazem, coumadin 8.RLS; Continue home requip 9.Diabetic neuropathy;Continue home gabapentin DVT/GI PPX: home coumadin/protonix monitor closely in telemetry. PT evaluation appreciated. TCU recommended. Possible Transfer to TCU tomorrow after primacor is discontinued. 05/08/18 15:28
[2018-05-08] MEDS: Insulin Lispro (HUMAlog) HIGH Coverage SC SCH ×4 (09:32→23:04)
[2018-05-08] MEDS: Magnesium Oxide 400 mg Tab UD PO SCH ×3 (09:34→17:45)
[2018-05-08] MEDS: metOLazone 5 MG TAB PO SCH (09:35)
[2018-05-08] MEDS ORDERED: Insulin Detemir 100 units/ml Vial (Levemir) SC SCH (12:02)
--- NOTE | 2018-05-08 12:39 | RAD ---
Date of service: 05/08/2018 PROCEDURE: CHEST RADIOGRAPH, 1 VIEW HISTORY: sob COMPARISON: 05/04/2018 FINDINGS: LUNGS: Clear. PLEURA: No pneumothorax or pleural fluid seen. CARDIOVASCULAR: No aortic atherosclerotic calcification present. Moderate cardiomegaly OSSEOUS STRUCTURES: No significant abnormalities. VISUALIZED UPPER ABDOMEN: Normal. OTHER FINDINGS: Dual lead pacemaker IMPRESSION: No active disease.
[2018-05-08] MEDS: Oxycodone/Acetaminophen 10/325 mg Tab PO PRN (13:50)
--- NOTE | 2018-05-08 14:54 | PN ---
DATE: 05/08/2018 REASON FOR CONSULTATION AND FOLLOWUP: Acute decompensated congestive heart failure, acute on chronic, secondary to systolic dysfunction. SUBJECTIVE: The patient feels less short of breath. Leg swelling is going down. OBJECTIVE: GENERAL: Not in apparent distress. VITAL SIGNS: As follows, temperature afebrile, heart rate 70, blood pressure 107/59. HEENT: PERRLA. Extraocular muscles intact. NECK: Supple. No carotid bruit or thyromegaly. CHEST: Clear to auscultation. HEART: S1 and S2 regular. ABDOMEN: Soft. EXTREMITIES: Clubbing and cyanosis negative. LABORATORY DATA: Blood workup: WBC 10.5, hemoglobin 10.3, hematocrit 32.7, platelet count 187. Chemistry shows sodium 134, potassium 4.3, chloride 93, carbon dioxide 32, anion gap 14, BUN 42, creatinine 1.3. IMPRESSION: A 57-year-old morbidly obese male with history of multiple medical problem, admitted with acute decompensated congestive heart failure, history of chronic obstructive pulmonary disease, history of morbid obesity, history of paroxysmal atrial fibrillation, status post failed transesophageal echocardiography cardioversion, status post radiofrequency ablation, history of automatic implantable cardioverter-defibrillator, admitted with decompensated congestive heart failure, started on intravenous Primacor and diuresing well. The patient had echocardiography done yesterday read by Dr. Flowers as severely impaired left ventricular function, apical motion consistent with pacemaker, right ventricle is mildly dilated and severely hypokinetic, mitral regurgitation is trace reported, tricuspid valve reported normal, right ventricular systolic pressure is 24, ejection fraction 36% calculated by Dr. Flowers. RECOMMENDATIONS: Continue Primacor for the next 24 hours. Continue diuresing aggressively and monitor electrolytes closely. Emphasized on weight reduction modification and lifestyle modification, risk factor of coronary artery disease discussed with the patient. We will follow with you. Thank you Dr. Abbott for providing us the opportunity in taking care of the patient, Pete Moranhien. Tia Rajan MD
--- NOTE | 2018-05-08 15:18 | PN ---
DATE: 05/08/2018 PULMONARY PROGRESS NOTE REFERRING PHYSICIAN: Dr. Abbott. SUBJECTIVE: The patient is sitting in arm chair in room and no acute distress. Reports wearing CPAP machine for 3 hours last night. Has occasional cough and shortness of breath with exertion and some swelling to bilateral lower extremities. No headache, rhinitis, chest pain, abdominal pain, nausea, vomiting, diarrhea, or leg pain reported. OBJECTIVE: GENERAL: No acute distress. VITAL SIGNS: Blood pressure 121/80, pulse 70, temperature 98.7, and oxygen saturation 97% on nasal cannula. HEENT: Moist mucous membranes. Crowded airway. Mallampati score is 4. NECK: Supple. No JVD. LUNGS: Rhonchi bilaterally. CARDIOVASCULAR: S1 and S2 audible. ABDOMEN: Soft and nontender. No distention. No organomegaly. EXTREMITIES: Bilateral lower extremity edema. NEUROLOGIC: Awake, alert, verbal, and follows command. MEDICATIONS: Reviewed. DuoNeb 3 mL inhalation every 2 hours p.r.n., DuoNeb 3 mL inhalation every 6 hours, Zithromax 500 mg daily, Cardizem 30 mg twice a day, Lasix 40 mg twice a day, Neurontin 300 mg twice a day, Levemir 30 units subcutaneous at bedtime, Humalog sliding scale a.c. and at bedtime, lisinopril 2.5 mg daily, Ativan 1 mg every 12 hours p.r.n., magnesium oxide 400 mg 2 times a day, 5 mg daily, Primacor 20 mg p.r.n., Singulair 10 mg at bedtime, Percocet 7/325 mg twice a day p.r.n., Protonix 40 mg daily, prednisone 40 mg daily, Requip 0.5 mg at bedtime, Aldactone 25 mg twice a day, trazodone 150 mg at bedtime, and Coumadin 4 mg daily. LABORATORY DATA: Reviewed. WBC 10.5, RBC 4.04, hemoglobin 10.3, hematocrit 32.7, and platelets 187. PT is 31.6. and INR 2.8. Sodium 134, potassium 4.3, chloride 93, carbon dioxide 32, anion gap 14, BUN 42, creatinine 1.3, GFR 57, and random glucose 318. Calcium 9.1, total bilirubin 0.2, AST 25, ALT 19, alkaline phosphatase 67, total protein 6.2, albumin 3.8, globulin 2.4, albumin globulin ratio 1.5. Chest x-ray shows no active disease. IMPRESSION AND PLAN: Cardiomyopathy with congestive heart failure, coronary artery disease, history of coronary stents, history of atrial fibrillation requiring ablation, sleep apnea syndrome, automatic implantable cardioverter-defibrillator placement, history of gastroesophageal reflux disease, hypertension, peripheral neuropathy, status post right hip replacement, and history of substance, alcohol abuse in the remote past, and severally impaired systolic function. Pulmonary point of view, continue continuous positive airway pressure use at bedtime, sleep apnea precaution, head of bad elevated at 45 degrees, gastric prophylaxis, and currently on anticoagulation therapy. Continue diuretics Primacor. Fall precautions. Recommend physical therapy. This patient should have pulmonary function tests and sleep study as outpatient, benefit from the use of nasal pillow mask as an outpatient. This patient was seen and examined with Dr. Godinez. Discussed assessment plan as described above. This patient was seen and examined with Francisco Yates, nurse practitioner. Discussed assessment and plan as described above. Thank you for this consult. We will follow with you. Francisco Yates APN Tia Godinez MD
[2018-05-08 15:24] LABS: VENOUS BLOOD GAS BASE EXCESS 6.8 mmol/L (0.0-2.0); VENOUS BLOOD GAS PO2 165 mm/Hg (30-55); VENOUS BLOOD PH 7.47 (7.32-7.43)
--- NOTE | 2018-05-08 21:27 | CP.PCM.PN ---
Subjective - Date & Time of Evaluation Date of Evaluation: 05/08/18 Time of Evaluation: 12:00 - Subjective Subjective: 57 yo M w/ pmh of COPD on 2L home oxygen, severe systolic CHF, obesity, WESLY, CAD s/p 2 stents, htn, DM II, atrial fibrillation on Coumadin, s/p DVT and mild CKD, admitted with acute decompensated CHF; Patient reports still having dyspnea; urinating frequently; tolerating diet; leg swelling somewhat better but still w/ R foot pain; Objective - Vital Signs/Intake and Output Vital Signs (last 24 hours): Temp Pulse Resp BP Pulse Ox 97.5 F L 70 18 120/64 97 05/08/18 18:00 05/08/18 20:29 05/08/18 18:00 05/08/18 20:29 05/08/18 09:00 Intake and Output: 05/08/18 05/09/18 18:59 06:59 Intake Total 266 1480 Output Total 1750 Balance -1484 1480 - Medications Medications: Current Medications Albuterol/Ipratropium (Duoneb 3 Mg/0.5 Mg (3 Ml) Ud) 3 ml IH Q2H PRN PRN Reason: Shortness of Breath Albuterol/Ipratropium (Duoneb 3 Mg/0.5 Mg (3 Ml) Ud) 3 ml IH [id number] [facility] Last Admin: 05/08/18 20:19 Dose: Not Given Azithromycin (Zithromax) 500 mg PO DAILY [facility] Last Admin: 05/08/18 09:34 Dose: 500 mg Diltiazem HCl (Cardizem) 30 mg PO BID [facility] Last Admin: 05/08/18 17:45 Dose: 30 mg Furosemide (Lasix) 40 mg IV 0800,1400 [facility] Last Admin: 05/08/18 13:55 Dose: 40 mg Gabapentin (Neurontin) 300 mg PO BID [facility]; Protocol Last Admin: 05/08/18 17:44 Dose: 300 mg Milrinone Lactate/Dextrose (Primacor 20mg/100ml D5w) 100 mls @ 13.778 mls/hr IV .Q7H16M PRN; Protocol PRN Reason: TITRATE PER MD ORDER Stop: 05/09/18 07:00 Last Admin: 05/08/18 20:29 Dose: 0.375 mcg/kg/min, 13.778 mls/hr Insulin Detemir (Levemir) 30 unit SC HS [facility] Insulin Human Lispro (Humalog High) 0 units SC [facility]; Protocol Last Admin: 05/08/18 17:44 Dose: 15 unit Lisinopril (Zestril) 2.5 mg PO DAILY [facility] Last Admin: 05/05/18 09:49 Dose: 2.5 mg Lorazepam (Ativan) 1 mg PO Q12H PRN; Protocol PRN Reason: Anxiety Last Admin: 05/07/18 13:14 Dose: 1 mg Magnesium Oxide (Mag-Ox) 400 mg PO TID [facility] Last Admin: 05/08/18 17:45 Dose: 400 mg Metolazone (Zaroxolyn) 5 mg PO DAILY [facility] Last Admin: 05/08/18 09:35 Dose: 5 mg Montelukast Sodium (Singulair) 10 mg PO HS [facility] Last Admin: 05/07/18 21:52 Dose: 10 mg Oxycodone/Acetaminophen (Percocet 10/325 Mg Tab) 1 tab PO BID PRN PRN Reason: Pain, severe (8-10) Last Admin: 05/08/18 13:50 Dose: 1 tab Pantoprazole Sodium (Protonix Ec Tab) 40 mg PO 0600 [facility] Last Admin: 05/08/18 05:22 Dose: 40 mg Prednisone (Prednisone Tab) 40 mg PO DAILY [facility] Last Admin: 05/08/18 09:34 Dose: 40 mg Ropinirole HCl (Requip) 0.5 mg PO HS [facility] Last Admin: 05/07/18 21:52 Dose: 0.5 mg Spironolactone (Aldactone) 25 mg PO BID [facility] Last Admin: 05/05/18 17:47 Dose: 25 mg Trazodone HCl (Desyrel) 150 mg PO HS [facility] Last Admin: 05/07/18 21:52 Dose: 150 mg Warfarin Sodium (Coumadin) 4 mg PO 1800 [facility]; Protocol Last Admin: 05/08/18 17:44 Dose: 4 mg - Labs Labs: 05/08/18 06:00 05/08/18 06:00 PT 31.6 SECONDS (9.4-12.5) H 05/08/18 06:00 INR 2.80 05/08/18 06:00 APTT 36.7 Seconds (26.9-38.3) 05/04/18 18:48 - Constitutional Appears: Non-toxic, No Acute Distress - Eye Exam Eye Exam: Normal appearance. absent: Scleral icterus - Respiratory Exam Respiratory Exam: Clear to Ausculation Bilateral. absent: Respiratory Distress - Cardiovascular Exam Cardiovascular Exam: JVD, +S1, +S2. absent: Gallop, Rubs - GI/Abdominal Exam GI & Abdominal Exam: Soft. absent: Distended, Tenderness - Extremities Exam Additional comments: 2+ b/l lower leg edema; - Neurological Exam Neurological Exam: Alert, Awake - Psychiatric Exam Psychiatric exam: Normal Affect. absent: Agitated - Skin Skin Exam: Warm. absent: Cyanosis Assessment and Plan (1) Acute kidney injury Assessment & Plan: DORITA on mild CKD; cardiorenal etiology, resolving with aggressive diuresis and inotropic support; ensuing primary metabolic alkalosis due to diuretics; will restart aldactone 25 mg bid to help offset alkalosis; -continue rest of current diuretic regimen; -f/u with cardiology regarding milrinone; -continue to target daily net neg 1-2L fluid balance; -avoid nephrotoxic agents (NSAIDS, etc); Status: Acute (2) Acute systolic CHF (congestive heart failure) Assessment & Plan: see above regarding diuretics; restarting FARZANA blockade with aldactone; if K/ renal function stable, can restart low dose SID inhibitor as well to optimize CHF status; Status: Acute (3) Hyperkalemia Status: Acute (4) Metabolic alkalosis Status: Acute
[2018-05-09 00:41] VITALS: RESP 20
[2018-05-09] MEDS: Albuterol-Ipratrop 3 mg / 0.5 (3 ml) UD IH SCH ×2 (01:50→08:05)
[2018-05-09] MEDS: Milrinone 20mg/100ml D5W 100 ML IV PRN (03:11)
[2018-05-09] MEDS: Pantoprazole 40 mg EC Tab PO SCH (05:48)
[2018-05-09 05:58] VITALS: TEMP 98; O2SAT 98
[2018-05-09 07:05] LABS: EOS # 0.1 (0.0-0.7); EOS % 0.9 % (1.5-5.0); HEMOGLOBIN 10.3 g/dL (14.0-18.0); LYMPH # 1.3 (1.2-3.4); LYMPH % 15.7 % (22.0-35.0); MEAN CELL VOLUME 80.2 fl (80.0-105.0); MEAN CORPUSCULAR HEMOGLOBIN 25.2 pg (25.0-35.0); MEAN CORPUSCULAR HGB CONC 31.4 g/dl (31.0-37.0); MONO # 0.4 (0.1-0.6); MONO % 5.3 % (1.0-6.0); RBC 4.09 10^6/uL (3.5-6.1); RED CELL DISTRIBUTION WIDTH 14.7 % (11.5-14.5); WHITE BLOOD COUNT 8.1 10^3/uL (4.5-11.0)
[2018-05-09 07:22] LABS: ALB/GLOB RATIO 1.4 (1.1-1.8); ALBUMIN 3.8 g/dL (3.0-4.8); ALT/SGPT 24 U/L (7-56); AST/SGOT 22 U/L (17-59); BLOOD UREA NITROGEN 43 mg/dL (7-21); GFR NON-AFRICAN AMERICAN > 60
[2018-05-09] MEDS: Insulin Lispro (HUMAlog) HIGH Coverage SC SCH (09:29)
[2018-05-09] MEDS: Magnesium Oxide 400 mg Tab UD PO SCH (09:36)
[2018-05-09] MEDS: metOLazone 5 MG TAB PO SCH (09:37)
[2018-05-09 09:42] VITALS: BP 121/81; PULSE 69
--- NOTE | 2018-05-09 13:17 | PN ---
DATE: 05/09/2018 PULMONARY PROGRESS NOTE REFERRING PHYSICIAN: Dr. Abbott. SUBJECTIVE: The patient is sitting in armchair in no acute distress. No overnight events reported. Reports wearing CPAP machine for 3 hours last night. Reports that he still gets short of breath with exertion. Occasional cough, but it has improved. No headache, rhinitis, chest pain, abdominal pain, nausea, vomiting, diarrhea, leg pain, leg swelling reported. OBJECTIVE: VITAL SIGNS: Blood pressure 121/81, pulse 69, temperature 98, oxygen saturation 98 on nasal cannula. HEENT: Moist mucous membranes. Crowded airway. Mallampati score 4. NECK: Supple. No JVD. LUNGS: Fair airflow bilaterally. Few scattered rhonchi. CARDIOVASCULAR: S1, S2. ABDOMEN: Soft, nontender. No distention. No organomegaly. EXTREMITIES: Trace bilateral lower extremity edema. NEUROLOGIC: Awake, alert, verbal, and follows commands. MEDICATIONS: Reviewed. DuoNeb 3 mL inhalation every 2 hours p.r.n., DuoNeb 3 mL inhalation every 6 hours, Zithromax 500 mg daily, Cardizem 30 mg twice a day, Lasix 40 mg twice a day, Neurontin 300 mg twice a day, Levemir 30 units subcu h.s., Humalog sliding scale a.c. and h.s., lisinopril 2.5 mg daily, Ativan 1 mg every 12 hours p.r.n., magnesium oxide 400 mg 3 times a day, metolazone 5 mg daily, Singulair 10 mg at bedtime, Protonix 40 mg daily, prednisone 40 mg daily, ReQuip 0.5 mg at bedtime, Aldactone 25 mg twice a day, trazodone 150 mg at bedtime, Coumadin 3 mg daily. LABORATORY DATA: Reviewed. WBC 8.1, RBC 4.09, hemoglobin 7.3, hematocrit 32.8, and platelets 159. Sodium 133, potassium 4.2, chloride 89, carbon dioxide 34, anion gap 15, BUN 43, creatinine 1.2, GFR greater than 60, random glucose 297. Calcium 9,phosphorus 3.4, magnesium 2.2, total bilirubin 0.4, AST 22, ALT 24, alkaline phosphatase 61, total protein 6.4, albumin 3.8, globulin 2.7, and albumin-globulin ratio 1.4. Chest x-ray showed no active disease. IMPRESSION AND PLAN: Cardiomyopathy with congestive heart failure, coronary artery disease, history of coronary stents, history of atrial fibrillation requiring ablation, sleep apnea syndrome, automatic implantable cardioverter-defibrillator placement, history of gastroesophageal reflux disease, hypertension, peripheral neuropathy, status post right hip replacement, history of substance alcohol abuse in remote past, severely impaired systolic function. From pulmonary point of view, gastric prophylaxis, currently on anticoagulation therapy. Continue continuous positive airway pressure use at bedtime, sleep apnea precaution, head of bed elevated at 45 degrees, fall precaution. We recommend patient go home on tapering dose of steroids. The patient will need full pulmonary function test and sleep study as outpatient, would benefit from use of nasal pillow mask as outpatient. This patient was seen and examined with Dr. Godinez. Discussed assessment and plan as described above. This patient was seen and examined with Trudy Singh, nurse practitioner. Discussed assessment and plan as described above. Thank you for this consult. We will follow with you. Francisco Yates APN Tia Godinez MD
--- NOTE | 2018-05-09 14:15 | PN ---
DATE: 05/09/2018 REASON FOR CONSULTATION AND FOLLOWUP: Acute decompensated congestive heart failure, acute on chronic, secondary to systolic dysfunction. SUBJECTIVE: The patient denies any chest pain, shortness of breath or any palpitation. PHYSICAL EXAMINATION: GENERAL: Not in apparent distress. Primacor drip finished at 7 a.m. Feels a lot better. In the last couple of days, the patient had almost 1.5 to 2 L negative fluid balance everyday. VITAL SIGNS: Temperature afebrile, heart rate 96, and blood pressure 121/81. HEENT: PERRLA. Extraocular muscles intact. NECK: Supple. No carotid bruit or thyromegaly. CHEST: Clear to auscultation. HEART: S1 and S2 regular. ABDOMEN: Soft. EXTREMITIES: Clubbing and cyanosis negative. LABORATORY DATA: Blood workup as follows: WBC 8.1, hemoglobin 10.3, hematocrit 32.8, platelet count 159. Chemistry shows sodium 132, potassium 4.2, chloride 89, carbon dioxide 34, anion gap 15, BUN 43, creatinine 1.2. I's and O's 1.5 to 2 L negative fluid balance everyday. IMPRESSION: A 57-year-old morbidly obese male with past medical history of chronic obstructive pulmonary disease, diabetes, hypertension, hyperlipidemia, and peripheral arterial disease, nonobstructive coronary artery disease, cardiomyopathy, nonischemic, history of atrial flutter status post radiofrequency ablation, status post automatic implantable cardioverter-defibrillator, failed transesophageal echocardiography cardioversion in the past, admitted with acute decompensated congestive heart failure, started on Primacor for 72 hours. Now the patient had significant negative fluid balance. Leg edema has completely resolved. No crackles in the lungs heard. The patient had recently echo done by Dr. Flowers that showed right ventricular mildly dilated severe hypokinesis, mitral regurgitation, severely impaired left ventricular function. Mitral regurgitation reported fair. Tricuspid regurgitation reported normal. Right ventricular systolic pressure 24. Calculated ejection fraction 36%. RECOMMENDATION: Primacor . Continue IV Lasix, continue metolazone, we will discontinue telemetry and we will change Lasix to p.o. from tomorrow. We will start from tomorrow. Continue anticoagulation for paroxysmal atrial fibrillation and we will discontinue IV Lasix after today's dose. Today's INR is 2.8 and the patient is on 4, we will change to 3 mg from today. Possible discharge pending possible TCU. Thank you Dr. Abbott for providing us the opportunity in taking care of the patient, Pete Johnson. Tia Rajan MD
--- NOTE | 2018-05-09 14:47 | CP.PCM.DIS ---
<Simon Ramsey - Last Filed: 05/09/18 15:56> Provider - Provider Date of Admission: 05/06/18 09:09 Attending physician: Ash Abbott MD Consults: 05/05/18 08:37 Pulmonology Consult Routine Comment: Consulting Provider: Tia Godinez Consulting Physician: Tia Godinez Reason for Consult: COPD on home O2, 2L 05/05/18 08:41 Cardiology Consult Routine Comment: Consulting Provider: Tia Rajan Consulting Physician: Tia Rajan Reason for Consult: CHF exacerbation, hx pacemaker 05/06/18 09:50 Case Management Referral Routine Comment: Physician Instructions: Reason For Exam: cpap and home O2 Reason for Referral: Discharge Planning 05/06/18 13:13 Nephrology Consult Routine Comment: Consulting Provider: Salas Blackwood Consulting Physician: Salas Blackwood Reason for Consult: DORITA w/CHF exacerbation, hyperkalemia 05/07/18 07:15 TCU [Evaluation for TRCU] Routine Comment: Physician Instructions: Reason For Exam: gait instability Time Spent in preparation of Discharge (in minutes): 40 Diagnosis - Discharge Diagnosis (1) Acute systolic CHF (congestive heart failure) Status: Acute (2) COPD exacerbation Status: Acute (3) Obstructive sleep apnea Status: Chronic Hospital Course - Lab Results Lab Results: Most Recent Lab Values WBC 8.1 10^3/uL (4.5-11.0) D 05/09/18 06:45 RBC 4.09 10^6/uL (3.5-6.1) 05/09/18 06:45 Hgb 10.3 g/dL (14.0-18.0) L 05/09/18 06:45 Hct 32.8 % (42.0-52.0) L 05/09/18 06:45 MCV 80.2 fl (80.0-105.0) 05/09/18 06:45 MCH 25.2 pg (25.0-35.0) 05/09/18 06:45 MCHC 31.4 g/dl (31.0-37.0) 05/09/18 06:45 RDW 14.7 % (11.5-14.5) H 05/09/18 06:45 Plt Count 159 10^3/uL (120.0-450.0) 05/09/18 06:45 MPV 10.0 fl (7.0-11.0) 05/09/18 06:45 Neut % (Auto) 78.1 % (50.0-68.0) H 05/09/18 06:45 Lymph % (Auto) 15.7 % (22.0-35.0) L 05/09/18 06:45 Warren % (Auto) 5.3 % (1.0-6.0) 05/09/18 06:45 Eos % (Auto) 0.9 % (1.5-5.0) L 05/09/18 06:45 Baso % (Auto) 0.0 % (0.0-3.0) 05/09/18 06:45 Lymph # (Auto) 1.3 (1.2-3.4) 05/09/18 06:45 Warren # (Auto) 0.4 (0.1-0.6) 05/09/18 06:45 Eos # (Auto) 0.1 (0.0-0.7) 05/09/18 06:45 Baso # (Auto) 0.00 K/mm3 (0.0-2.0) 05/09/18 06:45 Absolute Neuts (auto) 6.36 (1.4-6.5) 05/09/18 06:45 Neutrophils % (Manual) 93 % (50.0-70.0) H 05/05/18 06:00 Lymphocytes % (Manual) 6 % (22.0-35.0) L 05/05/18 06:00 Monocytes % (Manual) 1 % (1.0-6.0) 05/05/18 06:00 PT 31.6 SECONDS (9.4-12.5) H 05/08/18 06:00 INR 2.80 05/08/18 06:00 APTT 36.7 Seconds (26.9-38.3) 05/04/18 18:48 pO2 165 mm/Hg (30-55) H 05/08/18 15:15 VBG pH 7.47 (7.32-7.43) H 05/08/18 15:15 VBG pCO2 43.0 (40-60) 05/08/18 15:15 VBG HCO3 31.3 mmol/l (21-28) H 05/08/18 15:15 VBG O2 Sat (Calc) 98.0 % (40-65) H 05/08/18 15:15 VBG Base Excess 6.8 mmol/L (0.0-2.0) H 05/08/18 15:15 Sodium 133 mmol/L (132-148) 05/09/18 06:45 Potassium 4.2 mmol/L (3.6-5.0) 05/09/18 06:45 Chloride 89 mmol/L (98-107) L 05/09/18 06:45 Carbon Dioxide 34 mmol/L (21-33) H 05/09/18 06:45 Anion Gap 15 (10-20) 05/09/18 06:45 BUN 43 mg/dL (7-21) H 05/09/18 06:45 Creatinine 1.2 mg/dl (0.8-1.5) 05/09/18 06:45 Est GFR ( Amer) > 60 05/09/18 06:45 Est GFR (Non-Af Amer) > 60 05/09/18 06:45 Random Glucose 297 mg/dL (70-110) H 05/09/18 06:45 Hemoglobin A1c 9.9 % (4.2-6.5) H 05/07/18 07:00 Lactic Acid 2.3 mmol/L (0.7-2.1) H 05/06/18 16:00 Uric Acid 9.7 mg/dL (3.5-8.5) H 05/06/18 17:00 Calcium 9.0 mg/dL (8.4-10.5) 05/09/18 06:45 Phosphorus 3.4 mg/dL (2.5-4.5) 05/09/18 06:45 Magnesium 2.2 mg/dL (1.7-2.2) 05/09/18 06:45 Total Bilirubin 0.4 mg/dL (0.2-1.3) 05/09/18 06:45 AST 22 U/L (17-59) 05/09/18 06:45 ALT 24 U/L (7-56) 05/09/18 06:45 Alkaline Phosphatase 61 U/L (38-126) 05/09/18 06:45 Troponin I 0.04 ng/mL 05/05/18 06:00 NT-Pro-B Natriuret Pep 2690 pg/mL (0-450) H 05/04/18 18:48 Total Protein 6.4 g/dL (5.8-8.3) 05/09/18 06:45 Albumin 3.8 g/dL (3.0-4.8) 05/09/18 06:45 Globulin 2.7 gm/dL 05/09/18 06:45 Albumin/Globulin Ratio 1.4 (1.1-1.8) 05/09/18 06:45 Triglycerides 89 mg/dL (35-160) 05/07/18 07:00 Cholesterol 148 mg/dL (130-200) 05/07/18 07:00 LDL Cholesterol Direct 109 mg/dL (0-129) 05/07/18 07:00 HDL Cholesterol 31 mg/dL (29-60) 05/07/18 07:00 TSH 3rd Generation 0.81 mIU/mL (0.46-4.68) 05/07/18 07:00 Urine Color Straw (YELLOW) 05/06/18 15:30 Urine Appearance Clear (CLEAR) 05/06/18 15:30 Urine pH 5.0 (4.7-8.0) 05/06/18 15:30 Ur Specific Mertzon 1.010 (1.005-1.035) 05/06/18 15:30 Urine Protein Negative mg/dL (<30 mg/dL) 05/06/18 15:30 Urine Glucose (UA) 250 mg/dL (NEGATIVE) H 05/06/18 15:30 Urine Ketones Negative mg/dL (NEGATIVE) 05/06/18 15:30 Urine Blood Negative (NEGATIVE) 05/06/18 15:30 Urine Nitrate Negative (NEGATIVE) 05/06/18 15:30 Urine Bilirubin Negative (NEGATIVE) 05/06/18 15:30 Urine Urobilinogen 0.2 E.U./dL (<1 E.U./dL) 05/06/18 15:30 Ur Leukocyte Esterase Trace Ke/uL (NEGATIVE) H 05/06/18 15:30 Urine RBC 0 - 2 /hpf (0-2) 05/06/18 15:30 Urine WBC 0 - 2 /hpf (0-6) 05/06/18 15:30 Ur Epithelial Cells None /hpf (0-5) 05/06/18 15:30 Urine Bacteria Small /hpf (NONE) 05/06/18 15:30 Ur Random Creatinine 16 mg/dL (20-320) L 05/06/18 17:00 Ur Random Sodium 115 meq/L 05/06/18 15:30 Urine Total Volume <0.2 mg/dL 05/06/18 17:00 Urine Microalbumin < 6.0 mg/L (0.0-16.6) 05/06/18 17:00 Microalb/Creat Ratio Note (<30) 05/06/18 17:00 Urine Chloride 129 mmol/L (32-290) 05/06/18 15:30 HIV 1&2 Ag/Ab, 4th Gen Nonreactive (Nonreactive) 05/04/18 18:30 - Hospital Course Hospital Course: Simon Ramsey DO, PGY-1 Hospitalist Discharge Summary for Dr. Abbott Prior to admission: Pete is a 57 year old male with PMH of end-stage COPD (on home O2 2L), systolic CHF (last EF 36%, s/p PPM and AICD placement), WESLY, CAD (s/p PTCA), DM2, AFib, and DVT presented to ED with a complaint of CP, SOB, and cough. He was subsequently admitted for management of COPD exacerbation with ACS r/o. Hospitalization course: While admitted, patient was evaluated by cardiology. ACS was ruled out with negative troponin x 3. However, per cardiology recs, patient was placed on primacor drip for 72 hours. He was treated for COPD exacerbation with duo-neb thu and PRN. He was also treated with steroids starting with solumedrol 40 mg IVP q12h and was slowly weaned to oral prednisone. His SOB continued to improve throughout his stay. He was evaluated by pulmonology, Dr. Godinez, who recommended patient complete sleep study on an outpatient basis. He was evaluated daily by PT who initially recommended [facility]YAN. He was then evaluated and approved for TCU. However, as PT continued to evaluate him, they recommended discharge home. While in the hospital, patient also developed an DORITA. He was subsequently evaluated by nephrology who believed the DORITA was 2/2 aggressive diuresis. He continued to improve after primacor drip was discontinued. Prior to discharge, patient was given an appointment with Dr. Godinez for SundayMay 13. He was instructed to continue all home medications as previously prescribed. He was sent home with additional 5 day course of zithromax and medrol dose pack. Discharge plan was discussed with patient in detail. All questions were answered. Patient seen, examined, and discharge plan discussed with my attending Emmett AldanaO. IM Resident PGY-1 Discharge Exam - Head Exam Head Exam: ATRAUMATIC, NORMOCEPHALIC - Eye Exam Eye Exam: EOMI, PERRL - ENT Exam ENT Exam: Mucous Membranes Moist - Neck Exam Neck exam: Full Rom, Normal Inspection - Respiratory Exam Respiratory Exam: Accessory Muscle Use, Clear to PA & Lateral, NORMAL BREATHING PATTERN, UNREMARKABLE. absent: Rales, Rhonchi, Wheezes, Respiratory Distress - Cardiovascular Exam Cardiovascular Exam: REGULAR RHYTHM, RRR, +S1, +S2. absent: Diastolic murmur, G allop, Rubs, Systolic Murmur - GI/Abdominal Exam GI & Abdominal Exam: Normal Bowel Sounds, Soft, Unremarkable. absent: Tenderness - Extremities Exam Extremities exam: full ROM, normal inspection - Back Exam Back exam: NORMAL INSPECTION - Neurological Exam Neurological exam: Alert, Oriented x3 - Psychiatric Exam Psychiatric exam: Normal Affect, Normal Mood - Skin Skin Exam: Dry, Intact, Warm Discharge Plan - Discharge Medications Prescriptions: Azithromycin [Zithromax] 500 mg PO DAILY #5 tab Methylprednisolone [Medrol Dose Pack (21 tabs)] See Taper PO DAILY #21 mg - Follow Up Plan Condition: GUARDED Disposition: HOME/ ROUTINE Instructions: Chronic Obstructive Pulmonary Disease (COPD), Including Emphysema, Heart Failure, Adult (DC), Obstructive Sleep Apnea, Adult (DC), What Is a Sleep Study?, Heart Failure (DC), Heart Failure (GEN), Pacemaker (DC), Pacemaker (GEN), Pulmonary Edema (DC), Pulmonary Edema (GEN), Ascites (DC), Ascites (GEN) Additional Instructions: Please follow up with your primary medical doctor, Dr. Villagomez or other primary doctor, within 3-5 days of discharge. Please follow up with Dr. Godinez within 1 week of discharge. We have included his information in your discharge paperwork. We have called his office and made an appointment for you on this coming SundayMay 13 at 9:30 AM. Please bring your photo ID, insurance cards, and arrive 15 minutes early for paperwork. If you are unable to make this appointment time, please call the office back as soon as possible. It is important that you follow up with Dr. Godinez for a sleep study and to get your CPAP machine. Not using a CPAP machine will make your shortness of breath and heart condition worse. Please follow up with Dr. Rajan, the distribution accounting clerk, within 3-4 weeks of discharge. If any of your symptoms return or worsen, please present to nearest ED. Referrals: Tia Rajan MD [Staff Provider] - Axel Villagomez MD [Staff Provider] - Tia Godinez MD [Staff Provider] - <Ash Abbott - Last Filed: 05/10/18 08:03> Provider - Provider Date of Admission: 05/06/18 09:09 Attending physician: Ash Abbott MD Consults: 05/05/18 08:37 Pulmonology Consult Routine Comment: Consulting Provider: Tai Godinez Consulting Physician: Tia Godinez Reason for Consult: COPD on home O2, 2L 05/05/18 08:41 Cardiology Consult Routine Comment: Consulting Provider: Tia Rajan Consulting Physician: Tia Rajan Reason for Consult: CHF exacerbation, hx pacemaker 05/06/18 09:50 Case Management Referral Routine Comment: Physician Instructions: Reason For Exam: cpap and home O2 Reason for Referral: Discharge Planning 05/06/18 13:13 Nephrology Consult Routine Comment: Consulting Provider: Salas Blackwood Consulting Physician: Salas Blackwood Reason for Consult: DORITA w/CHF exacerbation, hyperkalemia 05/07/18 07:15 TCU [Evaluation for TRCU] Routine Comment: Physician Instructions: Reason For Exam: gait instability Hospital Course - Lab Results Lab Results: Most Recent Lab Values WBC 8.1 10^3/uL (4.5-11.0) D 05/09/18 06:45 RBC 4.09 10^6/uL (3.5-6.1) 05/09/18 06:45 Hgb 10.3 g/dL (14.0-18.0) L 05/09/18 06:45 Hct 32.8 % (42.0-52.0) L 05/09/18 06:45 MCV 80.2 fl (80.0-105.0) 05/09/18 06:45 MCH 25.2 pg (25.0-35.0) 05/09/18 06:45 MCHC 31.4 g/dl (31.0-37.0) 05/09/18 06:45 RDW 14.7 % (11.5-14.5) H 05/09/18 06:45 Plt Count 159 10^3/uL (120.0-450.0) 05/09/18 06:45 MPV 10.0 fl (7.0-11.0) 05/09/18 06:45 Neut % (Auto) 78.1 % (50.0-68.0) H 05/09/18 06:45 Lymph % (Auto) 15.7 % (22.0-35.0) L 05/09/18 06:45 Warren % (Auto) 5.3 % (1.0-6.0) 05/09/18 06:45 Eos % (Auto) 0.9 % (1.5-5.0) L 05/09/18 06:45 Baso % (Auto) 0.0 % (0.0-3.0) 05/09/18 06:45 Lymph # (Auto) 1.3 (1.2-3.4) 05/09/18 06:45 Warren # (Auto) 0.4 (0.1-0.6) 05/09/18 06:45 Eos # (Auto) 0.1 (0.0-0.7) 05/09/18 06:45 Baso # (Auto) 0.00 K/mm3 (0.0-2.0) 05/09/18 06:45 Absolute Neuts (auto) 6.36 (1.4-6.5) 05/09/18 06:45 Neutrophils % (Manual) 93 % (50.0-70.0) H 05/05/18 06:00 Lymphocytes % (Manual) 6 % (22.0-35.0) L 05/05/18 06:00 Monocytes % (Manual) 1 % (1.0-6.0) 05/05/18 06:00 PT 31.6 SECONDS (9.4-12.5) H 05/08/18 06:00 INR 2.80 05/08/18 06:00 APTT 36.7 Seconds (26.9-38.3) 05/04/18 18:48 pO2 165 mm/Hg (30-55) H 05/08/18 15:15 VBG pH 7.47 (7.32-7.43) H 05/08/18 15:15 VBG pCO2 43.0 (40-60) 05/08/18 15:15 VBG HCO3 31.3 mmol/l (21-28) H 05/08/18 15:15 VBG O2 Sat (Calc) 98.0 % (40-65) H 05/08/18 15:15 VBG Base Excess 6.8 mmol/L (0.0-2.0) H 05/08/18 15:15 Sodium 133 mmol/L (132-148) 05/09/18 06:45 Potassium 4.2 mmol/L (3.6-5.0) 05/09/18 06:45 Chloride 89 mmol/L (98-107) L 05/09/18 06:45 Carbon Dioxide 34 mmol/L (21-33) H 05/09/18 06:45 Anion Gap 15 (10-20) 05/09/18 06:45 BUN 43 mg/dL (7-21) H 05/09/18 06:45 Creatinine 1.2 mg/dl (0.8-1.5) 05/09/18 06:45 Est GFR ( Amer) > 60 05/09/18 06:45 Est GFR (Non-Af Amer) > 60 05/09/18 06:45 Random Glucose 297 mg/dL (70-110) H 05/09/18 06:45 Hemoglobin A1c 9.9 % (4.2-6.5) H 05/07/18 07:00 Lactic Acid 2.3 mmol/L (0.7-2.1) H 05/06/18 16:00 Uric Acid 9.7 mg/dL (3.5-8.5) H 05/06/18 17:00 Calcium 9.0 mg/dL (8.4-10.5) 05/09/18 06:45 Phosphorus 3.4 mg/dL (2.5-4.5) 05/09/18 06:45 Magnesium 2.2 mg/dL (1.7-2.2) 05/09/18 06:45 Total Bilirubin 0.4 mg/dL (0.2-1.3) 05/09/18 06:45 AST 22 U/L (17-59) 05/09/18 06:45 ALT 24 U/L (7-56) 05/09/18 06:45 Alkaline Phosphatase 61 U/L (38-126) 05/09/18 06:45 Troponin I 0.04 ng/mL 05/05/18 06:00 NT-Pro-B Natriuret Pep 2690 pg/mL (0-450) H 05/04/18 18:48 Total Protein 6.4 g/dL (5.8-8.3) 05/09/18 06:45 Albumin 3.8 g/dL (3.0-4.8) 05/09/18 06:45 Globulin 2.7 gm/dL 05/09/18 06:45 Albumin/Globulin Ratio 1.4 (1.1-1.8) 05/09/18 06:45 Triglycerides 89 mg/dL (35-160) 05/07/18 07:00 Cholesterol 148 mg/dL (130-200) 05/07/18 07:00 LDL Cholesterol Direct 109 mg/dL (0-129) 05/07/18 07:00 HDL Cholesterol 31 mg/dL (29-60) 05/07/18 07:00 TSH 3rd Generation 0.81 mIU/mL (0.46-4.68) 05/07/18 07:00 Urine Color Straw (YELLOW) 05/06/18 15:30 Urine Appearance Clear (CLEAR) 05/06/18 15:30 Urine pH 5.0 (4.7-8.0) 05/06/18 15:30 Ur Specific Mertzon 1.010 (1.005-1.035) 05/06/18 15:30 Urine Protein Negative mg/dL (<30 mg/dL) 05/06/18 15:30 Urine Glucose (UA) 250 mg/dL (NEGATIVE) H 05/06/18 15:30 Urine Ketones Negative mg/dL (NEGATIVE) 05/06/18 15:30 Urine Blood Negative (NEGATIVE) 05/06/18 15:30 Urine Nitrate Negative (NEGATIVE) 05/06/18 15:30 Urine Bilirubin Negative (NEGATIVE) 05/06/18 15:30 Urine Urobilinogen 0.2 E.U./dL (<1 E.U./dL) 05/06/18 15:30 Ur Leukocyte Esterase Trace Ke/uL (NEGATIVE) H 05/06/18 15:30 Urine RBC 0 - 2 /hpf (0-2) 05/06/18 15:30 Urine WBC 0 - 2 /hpf (0-6) 05/06/18 15:30 Ur Epithelial Cells None /hpf (0-5) 05/06/18 15:30 Urine Bacteria Small /hpf (NONE) 05/06/18 15:30 Ur Random Creatinine 16 mg/dL (20-320) L 05/06/18 17:00 Ur Random Sodium 115 meq/L 05/06/18 15:30 Urine Total Volume <0.2 mg/dL 05/06/18 17:00 Urine Microalbumin < 6.0 mg/L (0.0-16.6) 05/06/18 17:00 Microalb/Creat Ratio Note (<30) 05/06/18 17:00 Urine Chloride 129 mmol/L (32-290) 05/06/18 15:30 HIV 1&2 Ag/Ab, 4th Gen Nonreactive (Nonreactive) 05/04/18 18:30 Attending/Attestation - Attestation I have personally seen and examined this patient.: Yes I have fully participated in the care of the patient.: Yes I have reviewed all pertinent clinical information, including history, physical exam and plan: Yes Notes (Text): 05/10/18 08:00 attending note; Patient seen and examined with resident. shortness Of breath improved. Primacor discontinued. Patient is ambulating without difficulty. Leg swelling improved significantly. Patient is a 57 year old male with PMH of COPD (on home O2 2L), systolic CHF (last EF 36%, s/p PPM and AICD placement), WESLY, CAD (s/p PTCA), DM2, AFib, and DVT presents with complaint of CP, SOB, and cough. He is admitted for management of COPD exacerbation with ACS r/o. 1. Acute on chronic syatolic heart failure. Treated with IV Lasix and IV Primacor. Patient will go home with Lasix. needs close follow-up with cardiology. 2. acute exacerbation of COPD and/or uncontrolled WESLY Patient needs to follow-up with Dr. Godinez next week. Needs CPAP to be arranged as outpatient after sleep study. Continue O2 2L NC Continue duo-neb, zithromax, singulair 3.WESLY/obesity hypoventilation syndrome Likely contributing to worsening SOB and cardiomyopathy Continue home CPAP education 4.DM2: FS is still elevated. Levemir dosage increased. 5.AFib;Continue diltiazem, coumadin 6.RLS; Continue home requip 7.Diabetic neuropathy;Continue home gabapentin Patient will go home today. regional program manager evaluation appreciated in arranging home care. Patient will follow-up with in 1 week. Patient was educated multiple times about dietary compliance, medication compliance and follow-up with primary care. Prognosis is poor secondary to multiple medical issues and noncompliance with follow-up. Patient will follow up with cardiology Dr. Rajan and pulmonary .
--- NOTE | 2018-05-09 20:53 | CP.PCM.PN ---
Subjective - Date & Time of Evaluation Date of Evaluation: 05/09/18 Time of Evaluation: 20:50 - Subjective Subjective: Nephro progress note - Comfort PGY - 2 Patient seen and examined at bedside; no acute overnight events. Patient states his sob is much better today. Denies any new complaints, and states he is ready for discharge. Objective - Vital Signs/Intake and Output Vital Signs (last 24 hours): Temp Pulse Resp BP Pulse Ox 98 F 69 20 121/81 98 05/09/18 05:58 05/09/18 09:37 05/09/18 05:58 05/09/18 09:38 05/09/18 05:58 - Labs Labs: 05/09/18 06:45 05/09/18 06:45 PT 31.6 SECONDS (9.4-12.5) H 05/08/18 06:00 INR 2.80 05/08/18 06:00 APTT 36.7 Seconds (26.9-38.3) 05/04/18 18:48 - Constitutional Appears: Well - Head Exam Head Exam: ATRAUMATIC, NORMAL INSPECTION, NORMOCEPHALIC - Eye Exam Eye Exam: EOMI, Normal appearance, PERRL Pupil Exam: NORMAL ACCOMODATION, PERRL - ENT Exam ENT Exam: Mucous Membranes Moist, Normal Exam - Neck Exam Neck Exam: Full ROM, Normal Inspection. absent: Lymphadenopathy - Respiratory Exam Respiratory Exam: Clear to Ausculation Bilateral, NORMAL BREATHING PATTERN - Cardiovascular Exam Cardiovascular Exam: REGULAR RHYTHM, +S1, +S2. absent: Murmur - GI/Abdominal Exam GI & Abdominal Exam: Soft, Normal Bowel Sounds. absent: Tenderness - Extremities Exam Extremities Exam: Full ROM, Normal Capillary Refill, Normal Inspection. absent: Joint Swelling, Pedal Edema - Back Exam Back Exam: NORMAL INSPECTION - Neurological Exam Neurological Exam: Alert, Awake, CN II-XII Intact, Normal Gait, Oriented x3 - Psychiatric Exam Psychiatric exam: Normal Affect, Normal Mood - Skin Skin Exam: Dry, Intact, Normal Color, Warm Assessment and Plan - Assessment and Plan (Free Text) Assessment: 57 M with medical hx pertinent for CHF and DMII, nephro consulted for mild DORITA and hyperkalemia. Plan: DORITA, likely Pre-Renal VS Diuretic use, on CKD, Stage III - Resolved - Continue home lasix 80 BID Contraction Alkalosis 2/2 Diuretic Use - Resume Aldactone Hyperkalemia, likely 2/2 DORITA with concomitant Aldactone and SID-I use - Resolved - Resumed Aldactone and SID-I CHF w/ Reduced EF - Continue lisinopril 2.5mg and Aldactone 25 BID - Continue metalozone 5mg MWF - ECHO shows 36% EF with LVH, dilation of RV
== END 2018-05-09 12:55 | disposition home or self-care (01) | DRG 291 ==
LOC: ED 17:24 → ERH 19:33 → 2RNO 05-05 04:40 → OBSVTOIN 05-06 09:09 → 2RNO 05-08 22:18
PROVIDERS: ADMIT Internal Medicine; ATTEND Internal Medicine
DX: I13.0 Hypertensive heart and chronic kidney disease with heart failure and stage 1 through stage 4 chronic kidney disease, or unspecified chronic kidney disease (principal); I50.23 Acute on chronic systolic (congestive) heart failure; J44.1 Chronic obstructive pulmonary disease with (acute) exacerbation; N17.9 Acute kidney failure, unspecified; E66.2 Morbid (severe) obesity with alveolar hypoventilation; E87.3 Alkalosis; I48.0 Paroxysmal atrial fibrillation; K21.9 Gastro-esophageal reflux disease without esophagitis; I42.9 Cardiomyopathy, unspecified; D64.9 Anemia, unspecified; E11.40 Type 2 diabetes mellitus with diabetic neuropathy, unspecified; N18.2 Chronic kidney disease, stage 2 (mild); I25.10 Atherosclerotic heart disease of native coronary artery without angina pectoris; I08.1 Rheumatic disorders of both mitral and tricuspid valves; H54.7 Unspecified visual loss; H91.90 Unspecified hearing loss, unspecified ear; T50.2X5A Adverse effect of carbonic-anhydrase inhibitors, benzothiadiazides and other diuretics, initial encounter; Z79.01 Long term (current) use of anticoagulants; Z79.899 Other long term (current) drug therapy; Z85.858 Personal history of malignant neoplasm of other endocrine glands; Z86.718 Personal history of other venous thrombosis and embolism; Z87.01 Personal history of pneumonia (recurrent); Z87.891 Personal history of nicotine dependence; Z91.19 Patient's noncompliance with other medical treatment and regimen; E11.22 Type 2 diabetes mellitus with diabetic chronic kidney disease; E11.51 Type 2 diabetes mellitus with diabetic peripheral angiopathy without gangrene; E11.65 Type 2 diabetes mellitus with hyperglycemia; E78.5 Hyperlipidemia, unspecified; E87.5 Hyperkalemia; F31.9 Bipolar disorder, unspecified; G25.81 Restless legs syndrome; Z95.5 Presence of coronary angioplasty implant and graft; Z95.810 Presence of automatic (implantable) cardiac defibrillator; Z96.643 Presence of artificial hip joint, bilateral; Z98.84 Bariatric surgery status

== ENCOUNTER 2018-06-04 13:40 | Inpatient (IN) | payer MEDICARE ==
[2018-06-04 13:40] VITALS: PULSE 74
--- NOTE | 2018-06-04 15:56 | ED PDOC ---
Arrival/HPI - General Chief Complaint: Trauma Time Seen by Provider: 06/04/18 13:51 Historian: Patient - History of Present Illness Narrative History of Present Illness (Text): 06/04/18 15:48 57 year old m with a pmh of hypertension, DVT, chronic back pain, hep C, HIV, CHF presents to the emergency department complaining of chest pain w/ SOB x3days. Patient mentioned that he he hit his R rib, R hip, R knee on coffee table after he slipped and fell of his chair. Patient also complains of having a cough. Patient denies any LOC, lower extremity weakness, change in speech, fevers, chills, headache, dizziness, dyspnea on exertion, abdominal pain, nausea, vomiting, diarrhea, back pain, neck pain, or any other complaint. PMD: Dr. Villagomez PSHx: Right hip replacement (Feb 2018) by Dr. Capellan Time/Duration: < week Symptom Course: Unchanged Activities at Onset: Light Context: Home Past Medical History - Provider Review Nursing Documentation Reviewed: Yes - Infectious Disease Hx of Infectious Diseases: None - Tetanus Immunization Tetanus Immunization: Unknown - Cardiac Hx Cardiac Disorders: Yes Hx Angina: Yes Hx Cardiac Arrhythmia: Yes Hx Circulatory Problems: Yes Hx Congestive Heart Failure: Yes Hx Hypertension: Yes Hx Internal Defibrillator: Yes Hx Pacemaker: Yes Hx Peripheral Edema: Yes Hx Peripheral Vascular Disease: Yes - Pulmonary Hx Respiratory Disorders: Yes Hx Bronchitis: Yes Hx Chronic Obstructive Pulmonary Disease (COPD): Yes Hx Emphysema: Yes Hx Pneumonia: Yes Hx Respiratory Tract Infection: Yes Hx Sleep Apnea: Yes - Neurological Hx Neurological Disorder: Yes Hx Dizziness: Yes - HEENT Hx HEENT Disorder: Yes Hx Blind: Yes (HX eye sugery) Hx Deafness: Yes - Renal Hx Renal Disorder: No - Endocrine/Metabolic Hx Endocrine Disorders: Yes Hx Adrenal Cancer: Yes Hx Diabetes Mellitus Type 2: Yes - Hematological/Oncological Hx Blood Disorders: No - Integumentary Hx Dermatological Disorder: No - Musculoskeletal/Rheumatological Hx Musculoskeletal Disorders: Yes Hx Arthritis: Yes Hx Falls: Yes Hx Fractures: Yes Hx Osteoarthritis: Yes Hx Unsteady Gait: Yes - Gastrointestinal Hx Gastrointestinal Disorders: Yes (gastric bypass surgery) Hx Gastroesophageal Reflux: Yes - Genitourinary/Gynecological Hx Genitourinary Disorders: Yes - Psychiatric Hx Psychophysiologic Disorder: Yes Hx Anxiety: Yes Hx Bipolar Disorder: Yes Hx Depression: Yes Hx Substance Use: No - Past Surgical History Past Surgical History: Non-Contributing - Surgical History Hx Cardiac Catheterization: Yes Hx Coronary Stent: Yes Hx Gastric Bypass Surgery: Yes - Anesthesia Hx Anesthesia: Yes Hx Anesthesia Reactions: No Hx Malignant Hyperthermia: No - Suicidal Assessment Feels Threatened In Home Enviroment: No Family/Social History - Physician Review Nursing Documentation Reviewed: Yes Family/Social History: No Known Family HX Smoking Status: Former Smoker Hx Alcohol Use: No Hx Substance Use: No Hx Substance Use Treatment: No Allergies/Home Meds Allergies/Adverse Reactions: Allergies quetiapine fumarate [From Seroquel] Adverse Reaction (Verified 05/04/18 17:44) ANAPHYLAXIS wild berries Allergy (Intermediate, Uncoded 05/04/18 17:44) RASH Home Medications: Home Meds Medication Instructions Recorded Confirmed Warfarin [Coumadin] 8.5 mg PO 1800 02/17/18 06/04/18 Review of Systems - Physician Review All systems were reviewed & negative as marked: Yes - Review of Systems Constitutional: Normal. absent: Fevers Eyes: Normal ENT: absent: Sore Throat, Rhinorrhea Respiratory: SOB, Cough Cardiovascular: Chest Pain. absent: Syncope Gastrointestinal: absent: Abdominal Pain, Diarrhea, Nausea, Vomiting Musculoskeletal: absent: Back Pain, Joint Swelling Skin: Normal. absent: Rash Neurological: absent: Headache, Dizziness, Speech Changes Physical Exam Vital Signs Reviewed: Yes Vital Signs Temp Pulse Resp BP Pulse Ox 06/04/18 14:21 97.9 F 70 17 131/77 95 06/04/18 13:58 98 F 77 20 131/85 96 Temperature: Afebrile Blood Pressure: Normal Pulse: Regular Respiratory Rate: Normal Appearance: Positive for: Well-Appearing, Non-Toxic, Comfortable Pain Distress: None - Systems Exam Head: Present: Atraumatic, Normocephalic Pupils: Present: PERRL Extroacular Muscles: Present: EOMI Conjunctiva: Present: Normal Mouth: Present: Moist Mucous Membranes Neck: Present: Normal Range of Motion Respiratory/Chest: Present: Clear to Auscultation, Good Air Exchange. No: Respiratory Distress, Accessory Muscle Use Cardiovascular: Present: Regular Rate and Rhythm, Normal S1, S2 Abdomen: No: Tenderness Upper Extremity: Present: Normal Inspection. No: Edema Lower Extremity: Present: Edema (Pedal edema B/L), Normal ROM, Other (R. Hip tenderness, normal ROM of R. hip joint) Neurological: Present: GCS=15, Speech Normal Skin: Present: Warm, Dry. No: Rashes Psychiatric: Present: Alert, Oriented x 3, Normal Insight, Normal Concentration Medical Decision Making ED Course and Treatment: 06/04/18 16:02 Impression: 57 year old m presents to the emergency department complaining of chest pain w/ SOB x3days. Plan: --Ekg --Labs --Lasix --X-Ray Hip w/ pelvis --X-Ray R. knee --X-Ray Right ribs -- Reassess and disposition Prior Visits: Notes and results from previous visits were reviewed. Patient was last seen in the emergency department on Progress Notes: 06/04/18 17:28 EKG: Paced rhythm at 70 bpm, no acute ST elevation noted. X-ray right hip, as per radiology reading : There is a right hip prosthesis. The femoral component is unremarkable. The acetabular component is in good position. The longer screws through the acetabular component extends through the proximal of the iliac bone. The tip can be seen near the sacroiliac joint. CT may be necessary to determine the exact position of the screw. X-ray right ribs, as per radiology reading : Unremarkable radiographs of the chest and ribs no rib fracture. X-ray right knee, as per radiology reading : Normal radiographs of the right knee. Labs reviewed, troponin is 0.06, BNP is 2760, the labs within normal limits. On reevaluation, patient is laying in bed comfortably in no acute distress, he is speaking in full sentences, breathing easy and unlabored, he offers no new complaints at this point. Case discussed with his PMD Dr. Villagomez, who agrees with plan for telemetry observation for ACS, and acute CHF exacerbation - RAD Interpretation Radiology Orders: 06/04/18 14:46 HIP MIN 2V W/ PELVIS RT [RAD] Stat KNEE RIGHT 2 VIEWS (AP & LAT) [RAD] Stat RIBS RIGHT & PA CHEST [RAD] Stat - Medication Orders Current Medication Orders: Discontinued Medications Furosemide (Lasix) 20 mg IVP STAT STA Stop: 06/04/18 14:46 - PA / PRESSURE TESTER OPERATOR / Resident Statement MD/DO has reviewed & agrees with the documentation as recorded. - Scribe Statement The provider has reviewed the documentation as recorded by the Celeste Hess All medical record entries made by the Celeste were at my direction and personally dictated by me. I have reviewed the chart and agree that the record accurately reflects my personal performance of the history, physical exam, medical decision making, and the department course for this patient. I have also personally directed, reviewed, and agree with the discharge instructions and disposition. Disposition/Present on Arrival - Present on Arrival Any Indicators Present on Arrival: Yes History of DVT/PE: Yes History of Uncontrolled Diabetes: Yes Urinary Catheter: No History of Decub. Ulcer: No History Surgical Site Infection Following: None - Disposition Have Diagnosis and Disposition been Completed?: Yes Diagnosis: Acute systolic CHF (congestive heart failure), ACS (acute coronary syndrome) Disposition: HOSPITALIZED Disposition Time: 17:20 Patient Plan: Observation Patient Problems: Current Active Problems Problem Status Onset ACS (acute coronary syndrome) Acute Acute systolic CHF (congestive heart failure) Acute Condition: STABLE
[2018-06-04 16:19] LABS: BASO # 0.03 K/mm3 (0.0-2.0); BASO % 0.4 % (0.0-3.0); EOS # 0.1 (0.0-0.7); EOS % 1.5 % (1.5-5.0); HEMOGLOBIN 11.4 g/dL (14.0-18.0); LYMPH # 1.2 (1.2-3.4); LYMPH % 15.4 % (22.0-35.0); MEAN CELL VOLUME 81.4 fl (80.0-105.0); MEAN CORPUSCULAR HEMOGLOBIN 25.2 pg (25.0-35.0); MEAN PLATELET VOLUME 9.7 fl (7.0-11.0); MONO # 0.5 (0.1-0.6); MONO % 6.2 % (1.0-6.0); RBC 4.52 10^6/uL (3.5-6.1); RED CELL DISTRIBUTION WIDTH 17.3 % (11.5-14.5)
[2018-06-04 16:28] LABS: INR 1.44; PARTIAL THROMBOPLASTIN TIME 30.2 Seconds (26.9-38.3)
--- NOTE | 2018-06-04 16:31 | RAD ---
Date of service: 06/04/2018 PROCEDURE: Radiographs of the Chest and Right Ribs. HISTORY: pain COMPARISON: None available. TECHNIQUE: Frontal radiograph of the chest and multiple oblique radiographs of the right ribs were obtained. FINDINGS: RIGHT RIBS: No fracture or focal lesion visualized. LUNGS: Clear. PLEURA: No pneumothorax or pleural fluid. CARDIOVASCULAR: Mild cardiomegaly no pulmonary vascular congestion. Mild aortic calcification. Dual lead pacemaker OTHER FINDINGS: None. IMPRESSION: Unremarkable radiographs of the chest and right ribs. No right rib fracture.
[2018-06-04 16:32] LABS: ALB/GLOB RATIO 1.3 (1.1-1.8); ALBUMIN 3.8 g/dL (3.0-4.8); ALT/SGPT 11 U/L (7-56); AST/SGOT 19 U/L (17-59); BLOOD UREA NITROGEN 19 mg/dL (7-21); GFR NON-AFRICAN AMERICAN > 60
--- NOTE | 2018-06-04 16:35 | RAD ---
Date of service: 06/04/2018 PROCEDURE: Right Knee Radiographs. HISTORY: pain COMPARISON: None. FINDINGS: BONES: Normal. No fracture. JOINTS: Normal. No osteoarthritis. JOINT EFFUSION: None. OTHER FINDINGS: None. IMPRESSION: Normal radiographs of the right knee.
--- NOTE | 2018-06-04 16:35 | RAD ---
Date of service: 06/04/2018 PROCEDURE: Pelvis and right hip HISTORY: pain COMPARISON: 02/17/2018 TECHNIQUE: Three views FINDINGS: There is a right hip prosthesis. The femoral component is unremarkable. The acetabular component is in good position. The longer screw through the acetabular component extends through the cortex of the iliac bone. The tip can be seen near the sacroiliac joint. CT may be necessary to determine the exact position of this screw. IMPRESSION: As above
[2018-06-04 16:40] LABS: B-TYPE NATRIURETIC PEPTIDE 2760 pg/mL (0-450); TROPONIN I 0.06 ng/mL
[2018-06-04] MEDS: WARFARIN PO SCH (18:10)
[2018-06-04 18:48] VITALS: BMI 41.0
[2018-06-04] MEDS ORDERED: Dextrose 50% SYRINGE Inj (50 ml) IV PRN (19:06)
[2018-06-04] MEDS ORDERED: Magnesium Sulfate 2 gm/50 ml 2 GM/50 ML BAG IVPB ONE (19:16)
--- NOTE | 2018-06-04 19:18 | PCM.RRT ---
<Froylan Bahena - Last Filed: 06/04/18 19:44> CERTIFIED PEST CONTROL TECHNICIAN Nurse Assessment - Situation Date: 06/04/18 Time CERTIFIED PEST CONTROL TECHNICIAN was called: 18:55 CERTIFIED PEST CONTROL TECHNICIAN Responder Arrival Time: 18:55 CERTIFIED PEST CONTROL TECHNICIAN Location:: [address] [place] [address] Room Number: 370 CERTIFIED PEST CONTROL TECHNICIAN Reason for Call: Chest Pain CERTIFIED PEST CONTROL TECHNICIAN Called By: RN - IV IV Inserted during CERTIFIED PEST CONTROL TECHNICIAN?: No - Respiratory Oxygen Delivery Method: Nasal Cannula @L/min Oxygen Flow Rate: 2 Received Nebulizer Treatments:: No Was the Patient Ventilated with Bag/Mask 100% O2?: No Secretions Suctioned?: No Was the Patient Intubated?: No Was the Patient Placed on a Ventilator?: No - Diagnostic Test Ordered EKG: Yes Chest X-Ray: No CT Scan: No CPR started during CERTIFIED PEST CONTROL TECHNICIAN?: No - Vital Signs Vital Sign: Rapid Response Vital Sign Blood Pressure 115/75 Pulse Rate 69 Respiratory Rate 18 Temperature 97.5 F Oxygen Saturation 96 - Finger Stick Blood Glucose Finger Stick Blood Glucose: 125 - Time CERTIFIED PEST CONTROL TECHNICIAN Ended Time CERTIFIED PEST CONTROL TECHNICIAN Ended: 19:00 - Vital Signs at end of CERTIFIED PEST CONTROL TECHNICIAN Vital Signs at end of CERTIFIED PEST CONTROL TECHNICIAN: Rapid Response End Vital Sign Blood Pressure 124/85 Pulse Rate 69 Respiratory Rate 18 Temperature 97.5 F O2 Sat by Pulse Oximetry 96 - Recommendations Notifications: Attending Physician - Respiratory Oxygen Delivery Method: Nasal Cannula @L/min Oxygen Flow Rate: 2 - Constitutional Appears: Well, Non-toxic, No Acute Distress - Head Head Exam: ATRAUMATIC, NORMAL INSPECTION, NORMOCEPHALIC - Eyes Eye Exam: Normal appearance, PERRL - Respiratory Exam Respiratory Exam: Decreased Breath Sounds, Clear to Ausculation Bilateral. absent: Accessory Muscle Use, Chest Wall Tenderness, Rales - Cardiovascular Exam Cardiovascular Exam: RRR, +S1, +S2 - GI/Abdominal Exam GI & Abdominal Exam: Soft. absent: Guarding, Rigid, Tenderness - Neurological Exam Neurological Exam: Alert, Awake, Oriented x3 - Extremities Exam Extremities Exam: Full ROM, Pedal Edema (2+) Plan - Assessment of Findings&Treatment Plan Froylan Bahena PGY-1 CERTIFIED PEST CONTROL TECHNICIAN Note for Hospitalist Service S CERTIFIED PEST CONTROL TECHNICIAN was called in response to reported "acute [place]" automatically written by EKG machine on EKG this afternoon. Patient was found sitting upright in chair, in no acute distress, without labored breathing and AAOx3. Patient reports chronic R leg pain but denied chest pain, palpitations, shortness of breath, dizziness, headaches, blurry vision, nausea, vomiting, diaphoresis. O Vitals: BP 115/75, HR 69, RR 17, breathing 97% on RA RRR +S1S2 lungs CTABL, 2+ pedal edema noted bilaterally, EOMI , AAOx3, normoactive bowel sounds A&P: 57 year old M with a PMHx of hypertension, DVT, chronic back pain, hep C, HIV, CHF who presented after a rapid response was called for reported acute [place] on EKG. EKG revealed NSR @ 70 bpm with low voltage but without ST elevations. PMD Dr. Villagomez was notified. Repeat EKG was ordered stat and a troponin was ordered for the morning per instructions. Dr. Rajan was consulted as well. Patient will continue to be monitored on telemetry. Patient seen, case reviewed and plan approved by Dr. Libertad Ruiz. Froylan Bahena, PGY-1 <Nicole Ruiz R - Last Filed: 06/06/18 13:07> CERTIFIED PEST CONTROL TECHNICIAN Nurse Assessment - Vital Signs Vital Sign: Rapid Response Vital Sign Blood Pressure 115/75 Pulse Rate 69 Respiratory Rate 18 Temperature 97.5 F Oxygen Saturation 96 - Vital Signs at end of CERTIFIED PEST CONTROL TECHNICIAN Vital Signs at end of CERTIFIED PEST CONTROL TECHNICIAN: Rapid Response End Vital Sign Blood Pressure 124/85 Pulse Rate 69 Respiratory Rate 18 Temperature 97.5 F O2 Sat by Pulse Oximetry 96 Attending/Attestation - Attestation I have personally seen and examined this patient.: Yes I have fully participated in the care of the patient.: Yes I have reviewed all pertinent clinical information, including history, physical exam and plan: Yes Notes (Text): Patient seen and examined by me with resident at approximately 6:56PM on 06/04/18. Above discussed with resident. Agree with above with following additions/corrections. Rapid response called for abnormal EKG and chest pain. Patient states he has intermittent chest pain across his entire chest that comes and goes, unchanged since admission. No current chest pain. EKG reviewed, no ST elevations or depressions noted. Repeat EKG unchanged. Case was discussed with Dr. Villagomez who requested repeat troponin in AM and consult with crusher and binder operator Dr. Rajan which was placed. Physical exam: General: Awake and alert sitting up in bed in no acute distress. HEENT: Normocephalic, atraumatic. Extraocular muscles intact, pupils equal and reactive, no scleral icterus. Oropharynx is pink and moist. Neck is supple. Cardiovascular: Regular rhythm. Normal S1 and S2. No murmurs, rubs, or gallops appreciated Pulmonary: Normal respiratory effort. No rhonchi, rales or wheezing appreciated. Gastrointestinal: Soft, nondistended. Nontender. Positive bowel sounds all 4 quadrants. No guarding. Central nervous system: AAO x3
[2018-06-04] MEDS: Oxycodone/Acetaminophen 10/325 mg Tab PO PRN (19:19)
--- NOTE | 2018-06-04 19:22 | CP.PCM.PCO ---
Assessment/Plan - Assessment and Plan (Free Text) Assessment: 57 year old who was admitted to hospital under Dr. Villagomez's service. EKG interpreting machine incorrectly interpreted EKG as "Acute [place]" on the patient. Nurse on [address] [place] [address] saw this and called a rapid response. Patient was calm, in no acute distress, no shortness of breath and did not complain of ischemic chest pain.. A stat EKG was done that was unchanged. Nursing called Dr. Villagomez and informed him of the nuisance and he requested for an EKG to be done, consult, cardiology, and repeat a troponin in the morning.
[2018-06-04] MEDS: Insulin Lispro (humaLOG) MEDIUM Coverage SC SCH (21:37)
--- NOTE | 2018-06-04 21:39 | CARD ---
APPROVED REPORT Date of service: 06/04/2018 EKG Measurement Heart [id number] <Conclusion> Ventricular paced rhythm with 1:1 capture Underlying rhythm probably atrial fibrillation Abnormal ECG
--- NOTE | 2018-06-04 21:49 | CARD ---
APPROVED REPORT Date of service: 06/04/2018 EKG Measurement Heart [id number] <Conclusion> Ventricular paced rhythm with 1:1 capture Abnormal ECG
--- NOTE | 2018-06-05 06:52 | CP.PCM.HP ---
<Kasie Fernandez - Last Filed: 06/05/18 13:38> History of Present Illness - History of Present Illness History of Present Illness: IM Resident H&P for Dr. Villagomez's service CC: Shortness of breath for 3 days. 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 Patient states the shortness of breath is worst with exertion. Patient has been complaint with his metolazone and Lasix. Patient denies any changes in his diet. Patient states he also lost his balance yesterday, and fell, hitting the right side of his body against the glass coffee table. Admits to non productive cough. Admits to chest pain when he tries to take deep breaths. Denies fever or chills. No sick contact. Patient also complained of right knee and hip pain. Overnight, EKG revealed acute DC, [facility] was called, repeat ekg with non specific ST/T wave changes, patient was hemodynamically stable, and troponin was indeterminate. This morning patient states he's feeling better, the shortness of breath worst with laying flat. No chest pain. PMhx: as stated above PSHx: Right hip replacement (Feb 2018) FMHx: CAD on the father side. Social: former tobacco, denies alcohol, former illicit drug use. Lives by himself. Allergy: quetiapine and sean berries. Home meds: as per medical record. Present on Admission - Present on Admission Any Indicators Present on Admission: No History of DVT/PE: No History of Uncontrolled Diabetes: No Urinary Catheter: No Decubitus Ulcer Present: No Review of Systems - Constitutional Constitutional: Frequent Falls. absent: Chills, Fatigue, Fever, Headache, Weigh t Loss - EENT Eyes: absent: Blurred Vision, Change in Vision Ears: absent: Disequilibrium, Dizziness Nose/Mouth/Throat: absent: Epistaxis, Nasal Congestion, Nasal Trauma - Cardiovascular Cardiovascular: Chest Pain, Chest Pain at Rest, Chest Pain with Activity, Dyspnea, Dyspnea on Exertion, Edema, Irregular Heart Rhythm, Leg Edema, Orthopnea, Paroxysmal Nocturnal Dyspnea. absent: Claudication, Diaphoresis, Leg Ulcers, Lightheadedness, Palpitations, Rapid Heart Rate, Slow Heart Rate, Syncope - Respiratory Respiratory: Cough, Dyspnea, Dyspnea on Exertion, Pain with Coughing. absent: Hemoptysis, Wheezing, Snoring, Stridor, Chest Congestion - Gastrointestinal Gastrointestinal: absent: Abdominal Pain, Belching, Bloating, Dysphagia, Melena, Nausea, Vomiting - Genitourinary Genitourinary: absent: Dysuria, Pyuria, Nocturia, Urinary Hesitance, Freq UTI - Musculoskeletal Musculoskeletal: absent: Joint Swelling, Muscle Weakness, Stiffness, Tingling - Integumentary Integumentary: absent: Bleeding Lesions, Wounds - Neurological Neurological: absent: Disequilibrium, Dizziness, Numbness, Focal Weakness, Headaches - Psychiatric Psychiatric: Anxiety. absent: Confusion, Depression - Endocrine Endocrine: absent: Deepening of Voice, Fatigue, Palpitations, Polydipsia, Polyphagia, Polyuria - Hematologic/Lymphatic Hematologic: absent: Easy Bleeding, Easy Bruising, Lymphadenopathy Past Patient History - Infectious Disease Hx of Infectious Diseases: None - Tetanus Immunizations Tetanus Immunization: Unknown - Past Medical History & Family History Past Medical History?: Yes - Past Social History Smoking Status: Former Smoker Alcohol: None Drugs: Denies Home Situation {Lives}: Alone - CARDIAC Hx Cardiac Disorders: Yes Hx Angina: Yes Hx Cardia Arrhythmia: Yes Hx Circulatory Problems: Yes Hx Congestive Heart Failure: Yes Hx Hypertension: Yes Hx Internal Defibrillator: Yes Hx Pacemaker: Yes Hx Peripheral Edema: Yes Hx Peripheral Vascular Disease: Yes - PULMONARY Hx Respiratory Disorders: Yes Hx Bronchitis: Yes Hx Chronic Obstructive Pulmonary Disease (COPD): Yes Hx Emphysema: Yes Hx Pneumonia: Yes Hx Respiratory Tract Infection: Yes Hx Sleep Apnea: Yes - NEUROLOGICAL Hx Neurological Disorder: Yes Hx Dizziness: Yes - HEENT Hx HEENT Problems: Yes Hx Blind: Yes (HX eye sugery) Hx Deafness: Yes - RENAL Hx Chronic Kidney Disease: No - ENDOCRINE/METABOLIC Hx Endocrine Disorders: Yes Hx Adrenal Cancer: Yes Hx Diabetes Mellitus Type 2: Yes - HEMATOLOGICAL/ONCOLOGICAL Hx Blood Disorders: No - INTEGUMENTARY Hx Dermatological Problems: No - MUSCULOSKELETAL/RHEUMATOLOGICAL Hx Musculoskeletal Disorders: Yes Hx Arthritis: Yes Hx Falls: Yes Hx Fractures: Yes Hx Osteoarthritis: Yes Hx Unsteady Gait: Yes - GASTROINTESTINAL Hx Gastrointestinal Disorders: Yes (gastric bypass surgery) Hx Gastroesophageal Reflux: Yes - GENITOURINARY/GYNECOLOGICAL Hx Genitourinary Disorders: Yes - PSYCHIATRIC Hx Psychophysiologic Disorder: Yes Hx Anxiety: Yes Hx Bipolar Disorder: Yes Hx Depression: Yes - SURGICAL HISTORY Hx Cardiac Catheterization: Yes Hx Coronary Stent: Yes Hx Gastric Bypass Surgery: Yes - ANESTHESIA Hx Anesthesia: Yes Hx Anesthesia Reactions: No Hx Malignant Hyperthermia: No Meds Allergies/Adverse Reactions: Allergies Allergy/AdvReac Type Severity Reaction Status Date / Time quetiapine fumarate AdvReac ANAPHYLAXIS Verified 05/04/18 17:44 [From Seroquel] wild berries Allergy Intermediate RASH Uncoded 05/04/18 17:44 Physical Exam - Constitutional Appears: No Acute Distress Additional comments: Obese - Head Exam Head Exam: ATRAUMATIC, NORMAL INSPECTION, NORMOCEPHALIC - Eye Exam Eye Exam: EOMI, Normal appearance, PERRL. absent: Scleral icterus Pupil Exam: NORMAL ACCOMODATION - ENT Exam ENT Exam: Mucous Membranes Moist, Normal Exam - Neck Exam Neck exam: Positive for: Normal Inspection. Negative for: Lymphadenopathy, Meningismus, Tenderness, Thyromegaly - Respiratory Exam Respiratory Exam: Clear to Auscultation Bilateral, NORMAL BREATHING PATTERN. absent: Chest Wall Tenderness, Decreased Breath Sounds, Prolonged Expiratory Phase, Rales, Rhonchi, Wheezes, Respiratory Distress, Stridor - Cardiovascular Exam Cardiovascular Exam: Irregular Rhythm, +S1, +S2. absent: Bradycardia, Tachycardia, Clicks, Diastolic murmur, Gallop, JVD, Rubs, Systolic Murmur - GI/Abdominal Exam GI & Abdominal Exam: Normal Bowel Sounds, Soft. absent: Distended, Firm, Guarding, Rebound, Rigid, Tenderness - Extremities Exam Extremities exam: Positive for: pedal edema (+4), pedal pulses present. N egative for: tenderness - Back Exam Back exam: NORMAL INSPECTION - Neurological Exam Neurological exam: Alert, Oriented x3, Reflexes Normal - Psychiatric Exam Psychiatric exam: Normal Affect, Normal Mood - Skin Skin Exam: Dry, Normal Color, Warm Additional comments: Old thoracotomy incision, and pacemaker insertion site well healed, no signs of infection. Results - Vital Signs Recent Vital Signs: Last Vital Signs Temp 97.6 F 06/05/18 01:35 Pulse 83 06/05/18 05:22 Resp 18 06/05/18 01:35 BP 123/79 06/05/18 01:35 Pulse Ox 94 L 06/05/18 01:35 - Labs Result Diagrams: 06/05/18 07:00 06/05/18 07:00 Labs: Laboratory Results - last 24 hr 06/04/18 06/04/18 06/04/18 16:15 16:15 16:15 WBC 8.0 RBC 4.52 Hgb 11.4 L Hct 36.8 L MCV 81.4 MCH 25.2 MCHC 31.0 RDW 17.3 H Plt Count 195 MPV 9.7 Neut % (Auto) 76.5 H Lymph % (Auto) 15.4 L [place] % (Auto) 6.2 H Eos % (Auto) 1.5 Baso % (Auto) 0.4 Lymph # (Auto) 1.2 [place] # (Auto) 0.5 Eos # (Auto) 0.1 Baso # (Auto) 0.03 Absolute Neuts (auto) 6.14 PT 16.0 H INR 1.44 APTT 30.2 Sodium 139 Potassium 4.4 Chloride 105 Carbon Dioxide 24 Anion Gap 14 BUN 19 Creatinine 0.9 Est GFR ( Amer) > 60 Est GFR (Non-Af Amer) > 60 POC Glucose (mg/dL) Random Glucose 135 H Calcium 9.0 Magnesium 1.6 L Total Bilirubin 0.5 AST 19 ALT 11 Alkaline Phosphatase 74 Lactate Dehydrogenase 432 Total Creatine Kinase 51 Troponin I 0.06 D NT-Pro-B Natriuret Pep 2760 H Total Protein 6.7 Albumin 3.8 Globulin 2.9 Albumin/Globulin Ratio 1.3 06/04/18 06/04/18 19:07 21:14 WBC RBC Hgb Hct MCV MCH MCHC RDW Plt Count MPV Neut % (Auto) Lymph % (Auto) [place] % (Auto) Eos % (Auto) Baso % (Auto) Lymph # (Auto) [place] # (Auto) Eos # (Auto) Baso # (Auto) Absolute Neuts (auto) PT INR APTT Sodium Potassium Chloride Carbon Dioxide Anion Gap BUN Creatinine Est GFR ( Amer) Est GFR (Non-Af Amer) POC Glucose (mg/dL) 125 H 195 H Random Glucose Calcium Magnesium Total Bilirubin AST ALT Alkaline Phosphatase Lactate Dehydrogenase Total Creatine Kinase Troponin I NT-Pro-B Natriuret Pep Total Protein Albumin Globulin Albumin/Globulin Ratio Assessment & Plan - Assessment and Plan (Free Text) Assessment: 1) CHF exacerbation, less likely pneumonia or copd exacerbation 2) Subtherapeutic INR 3) Hypomagnesemia 4) S/p mechanical fall 5) Chronic normocytic anemia 6) h/o COPD of home O2, 7) Ischemic cardiomyopathy s/p permanent pacemaker and AICD 8) LVEF on 36% 9) CAD s/p CABG 10) WESLY on cpap 11) IDDM2 12) AFIB on Coumadin 13) H/o DVT on Coumadin 14) Chronic back pain 15) Diabetic neuropathy 16) Anxiety 17) Sleep related movement disorder Plan: Patient is getting diuresed with Lasix 60 mg iv bid, metolazone increased to 5 mg daily, monitor I&O and daily weight. Will add chest x-ray. On Heart healthy and 2 gram sodium diet. Card Maker is consulted. Troponin x3 indeterminate, with probnp of 1760. For subtherapeutic INR, will start Lovenox 60 mg bid and bridge with coumadin. For anemia, will send anemia work up. Percocet prn for pain. Duoneb, and singulair for copd. Campaign Director consulted for WESLY, needing cpap. Cardizem po for afib. gabapentin for neuropathy. Levemir 20 hs, humalog 6 sc ac and insulin sliding scale for DM. Patient is on Ativan prn for anxiety, and rospinirol. on aldactone, and lisinopril for chf. On PO mag 400 bid for hypomagnesemia. For mechanical fall, right hip and rib x-ray were normal, hip with questionable displaced prosthesis, will evaluate motion and consider orthopedic consult and further imaging. Patient seen, examined and case discussed with Dr. Villagomez. - Date & Time Date: 06/05/18 Time: 09:25 <Axel Villagomez - Last Filed: 06/05/18 18:24> Results - Vital Signs Recent Vital Signs: Last Vital Signs Temp 97.4 F L 06/05/18 08:29 Pulse 71 06/05/18 17:15 Resp 20 06/05/18 08:29 BP 125/77 06/05/18 17:15 Pulse Ox 97 06/05/18 08:29 - Labs Result Diagrams: 06/05/18 07:00 06/05/18 07:00 Labs: Laboratory Results - last 24 hr 03/06/04/18 06/05/18 19:07 21:14 06:10 WBC RBC Hgb Hct MCV MCH MCHC RDW Plt Count MPV Neut % (Auto) Lymph % (Auto) [place] % (Auto) Eos % (Auto) Baso % (Auto) Lymph # (Auto) [place] # (Auto) Eos # (Auto) Baso # (Auto) Absolute Neuts (auto) PT INR Sodium Potassium Chloride Carbon Dioxide Anion Gap BUN Creatinine Est GFR ( Amer) Est GFR (Non-Af Amer) POC Glucose (mg/dL) 125 H 195 H Random Glucose Calcium Phosphorus Magnesium Iron TIBC % Saturation Total Bilirubin AST ALT Alkaline Phosphatase Troponin I 0.06 Total Protein Albumin Globulin Albumin/Globulin Ratio 06/05/18 06/05/18 06/05/18 07:00 07:00 07:00 WBC 5.0 D RBC 4.29 Hgb 10.6 L Hct 35.2 L MCV 82.1 MCH 24.7 L MCHC 30.1 L RDW 17.4 H Plt Count 195 MPV 10.0 Neut % (Auto) 63.3 Lymph % (Auto) 26.2 [place] % (Auto) 7.3 H Eos % (Auto) 2.4 Baso % (Auto) 0.8 Lymph # (Auto) 1.3 [place] # (Auto) 0.4 Eos # (Auto) 0.1 Baso # (Auto) 0.04 Absolute Neuts (auto) 3.19 PT 19.1 H INR 1.69 Sodium 139 Potassium 3.9 Chloride 103 Carbon Dioxide 27 Anion Gap 12 BUN 20 Creatinine 1.2 Est GFR ( Amer) > 60 Est GFR (Non-Af Amer) > 60 POC Glucose (mg/dL) Random Glucose 146 H Calcium 8.9 Phosphorus 3.7 Magnesium 1.7 Iron TIBC % Saturation Total Bilirubin 0.5 AST 19 ALT 16 Alkaline Phosphatase 76 Troponin I Total Protein 6.4 Albumin 3.7 Globulin 2.7 Albumin/Globulin Ratio 1.4 06/05/18 06/05/18 06/05/18 07:13 11:00 11:15 WBC RBC Hgb Hct MCV MCH MCHC RDW Plt Count MPV Neut % (Auto) Lymph % (Auto) [place] % (Auto) Eos % (Auto) Baso % (Auto) Lymph # (Auto) [place] # (Auto) Eos # (Auto) Baso # (Auto) Absolute Neuts (auto) PT INR Sodium Potassium Chloride Carbon Dioxide Anion Gap BUN Creatinine Est GFR ( Amer) Est GFR (Non-Af Amer) POC Glucose (mg/dL) 151 H 208 H Random Glucose Calcium Phosphorus Magnesium Iron 39 L TIBC 430 % Saturation 9 L Total Bilirubin AST ALT Alkaline Phosphatase Troponin I Total Protein Albumin Globulin Albumin/Globulin Ratio 06/05/18 06/05/18 13:00 16:19 WBC RBC Hgb Hct MCV MCH MCHC RDW Plt Count MPV Neut % (Auto) Lymph % (Auto) [place] % (Auto) Eos % (Auto) Baso % (Auto) Lymph # (Auto) [place] # (Auto) Eos # (Auto) Baso # (Auto) Absolute Neuts (auto) PT INR Sodium Potassium Chloride Carbon Dioxide Anion Gap BUN Creatinine Est GFR ( Amer) Est GFR (Non-Af Amer) POC Glucose (mg/dL) 184 H Random Glucose Calcium Phosphorus Magnesium Iron TIBC % Saturation Total Bilirubin AST ALT Alkaline Phosphatase Troponin I 0.05 Total Protein Albumin Globulin Albumin/Globulin Ratio Assessment & Plan - Assessment and Plan (Free Text) Plan: Pt seen and examined by me. I have reviewed the note of the regional medical director and I agree with it. I have discussed the assessment and plan with the resident. I have reviewed the medications and the last labs.
[2018-06-05 07:29] LABS: INR 1.69; PROTHROMBIN TIME 19.1 SECONDS (9.4-12.5)
[2018-06-05] MEDS: Insulin Lispro (humaLOG) MEDIUM Coverage SC SCH ×4 (07:32→21:23)
[2018-06-05 07:50] LABS: ALB/GLOB RATIO 1.4 (1.1-1.8); ALBUMIN 3.7 g/dL (3.0-4.8); ALT/SGPT 16 U/L (7-56); AST/SGOT 19 U/L (17-59); BLOOD UREA NITROGEN 20 mg/dL (7-21); CALCIUM 8.9 mg/dL (8.4-10.5); GFR NON-AFRICAN AMERICAN > 60
[2018-06-05 08:09] LABS: BASO # 0.04 K/mm3 (0.0-2.0); BASO % 0.8 % (0.0-3.0); EOS # 0.1 (0.0-0.7); EOS % 2.4 % (1.5-5.0); HEMOGLOBIN 10.6 g/dL (14.0-18.0); LYMPH # 1.3 (1.2-3.4); LYMPH % 26.2 % (22.0-35.0); MEAN CELL VOLUME 82.1 fl (80.0-105.0); MEAN CORPUSCULAR HEMOGLOBIN 24.7 pg (25.0-35.0); MEAN CORPUSCULAR HGB CONC 30.1 g/dl (31.0-37.0); MONO # 0.4 (0.1-0.6); MONO % 7.3 % (1.0-6.0); RBC 4.29 10^6/uL (3.5-6.1); RED CELL DISTRIBUTION WIDTH 17.4 % (11.5-14.5)
[2018-06-05] MEDS ORDERED: Oxycodone/Acetaminophen 10/325 mg Tab PO PRN (08:32)
[2018-06-05] MEDS: Magnesium Oxide 400 mg Tab UD PO SCH ×3 (10:07→17:15)
[2018-06-05] MEDS: metOLazone 5 MG TAB PO SCH (10:07)
[2018-06-05] MEDS: Oxycodone/Acetaminophen 10/325 mg Tab PO PRN ×2 (10:12→17:14)
[2018-06-05] MEDS: Enoxaparin 60 mg Syringe SC SCH ×2 (10:12→21:13)
[2018-06-05] MEDS: Insulin Lispro 1 UNITS/0.01 ML SC SCH ×2 (12:12→16:29)
[2018-06-05] MEDS: Albuterol-Ipratrop 3 mg / 0.5 (3 ml) UD IH SCH ×2 (13:18→19:50)
--- NOTE | 2018-06-05 14:17 | CP.PCM.APN ---
Subjective - Date & Time of Evaluation Date of Evaluation: 06/05/18 Time of Evaluation: 11:00 - Subjective Subjective: Pt. seen and examined, sitting up in chair, denied dyspnea, states has some discomfort to chest wall, after fall at home, chest hit into table, he states. Denied palpitations. Objective - Vital Signs/Intake and Output Vital Signs (last 24 hours): Temp Pulse Resp BP Pulse Ox 97.4 F L 69 20 121/77 97 06/05/18 08:29 06/05/18 10:07 06/05/18 08:29 06/05/18 10:07 06/05/18 08:29 - Medications Medications: Current Medications Albuterol/Ipratropium (Duoneb 3 Mg/0.5 Mg (3 Ml) Ud) 3 ml IH TIDRESP [facility] Last Admin: 06/05/18 13:18 Dose: Not Given Dextrose (Dextrose 50% Inj) 0 ml IV STAT PRN; Protocol PRN Reason: Hypoglycemia Protocol Diltiazem HCl (Cardizem) 30 mg PO BID [facility] Last Admin: 06/05/18 10:07 Dose: 30 mg Enoxaparin Sodium (Lovenox) 60 mg SC Q12H [facility]; Protocol Last Admin: 06/05/18 10:12 Dose: 60 mg Furosemide (Lasix) 60 mg IVP Q12 [facility] Last Admin: 06/05/18 10:06 Dose: 60 mg Gabapentin (Neurontin) 300 mg PO BID [facility]; Protocol Last Admin: 06/05/18 10:08 Dose: 300 mg Dextrose (Dextrose 5% In Water 1000 Ml) 1,000 mls @ 0 mls/hr IV .Q0M PRN; Protocol PRN Reason: Hypoglycemia Protocol Insulin Detemir (Levemir) 20 unit SC HS [facility] Insulin Human Lispro (Humalog Med) 0 units SC ACHS [facility]; Protocol Last Admin: 06/05/18 12:13 Dose: Not Given Insulin Human Lispro (Humalog) 6 units SC AC [facility] Last Admin: 06/05/18 12:12 Dose: 6 units Lisinopril (Zestril) 2.5 mg PO DAILY [facility] Last Admin: 06/05/18 10:07 Dose: 2.5 mg Lorazepam (Ativan) 1 mg PO BID PRN; Protocol PRN Reason: Anxiety Last Admin: 06/04/18 21:34 Dose: 1 mg Magnesium Oxide (Mag-Ox) 400 mg PO TID [facility] Last Admin: 06/05/18 10:07 Dose: 400 mg Metolazone (Zaroxolyn) 5 mg PO DAILY [facility] Last Admin: 06/05/18 10:07 Dose: 5 mg Montelukast Sodium (Singulair) 10 mg PO HS [facility] Oxycodone/Acetaminophen (Percocet 10/325 Mg Tab) 1 tab PO Q6H PRN PRN Reason: Pain, severe (8-10) Last Admin: 06/05/18 10:12 Dose: 1 tab Ropinirole HCl (Requip) 0.5 mg PO HS [facility] Last Admin: 06/04/18 21:30 Dose: 0.5 mg Spironolactone (Aldactone) 25 mg PO BID [facility] Last Admin: 06/05/18 10:07 Dose: 25 mg Trazodone HCl (Desyrel) 150 mg PO HS [facility] Last Admin: 06/04/18 21:32 Dose: 150 mg Warfarin Sodium 7.5 mg/ (Warfarin Sodium 1 mg) 8.5 mg PO 1800 [facility] Last Admin: 06/04/18 18:10 Dose: 8.5 mg - Labs Labs: 06/05/18 07:00 06/05/18 07:00 PT 19.1 SECONDS (9.4-12.5) H 06/05/18 07:00 INR 1.69 06/05/18 07:00 APTT 30.2 Seconds (26.9-38.3) 06/04/18 16:15 - Constitutional Appears: Well, Non-toxic - Head Exam Head Exam: NORMOCEPHALIC - Eye Exam Eye Exam: Normal appearance - ENT Exam ENT Exam: Mucous Membranes Moist - Neck Exam Neck Exam: Full ROM - Respiratory Exam Respiratory Exam: Clear to Ausculation Bilateral - Cardiovascular Exam Cardiovascular Exam: Tachycardia, REGULAR RHYTHM - GI/Abdominal Exam GI & Abdominal Exam: Soft, Normal Bowel Sounds - Rectal Exam Rectal Exam: Deferred - Exam Exam: absent: Circumcision, NORMAL INSPECTION, Scrotal Swelling, Testicular Tenderness, Uretheral Discharge, Testicular Vertical Lie, Bladder Distension External exam: absent: Ecchymosis, Erythema, Lacerations, Lesions, NORMAL EXTERNAL EXAM, Swelling - Extremities Exam Extremities Exam: Pedal Edema Additional comments: 4+ lower extremity edema noted, involving digits. Assessment and Plan - Assessment and Plan (Free Text) Assessment: ITS Impressions Hip/Pelvis X-Ray 06/04/18 14:46 IMPRESSION: As above Knee X-Ray 06/04/18 14:46 IMPRESSION: Normal radiographs of the right knee. Ribs X-Ray 06/04/18 14:46 IMPRESSION: Unremarkable radiographs of the chest and right ribs. No right rib fracture. Chest X-Ray 06/05/18 13:54 IMPRESSION: Moderate cardiomegaly. Mild vascular congestion Assessment: 57 year old m with a pmh of hypertension, DVT, chronic back pain, hep C, HIV, CHF presents to the emergency department complaining of chest pain w/ SOB x3days. Patient mentioned that he he hit his R rib, R hip, R knee on coffee table after he slipped and fell of his chair. Plan: 1. CHF exacerbation Diuresis wth Lasix as per cardiology, monitor I's O,s 2. s/p Fall Pt eval pending. Will continue to monitor clinical status and follow closely.
--- NOTE | 2018-06-05 14:24 | RAD ---
Date of service: 06/05/2018 HISTORY: chf exacerbation COMPARISON: 06/04/2018 FINDINGS: LUNGS: No active pulmonary disease. PLEURA: No significant pleural effusion identified, no pneumothorax apparent. CARDIOVASCULAR: No aortic atherosclerotic calcification present. Moderate cardiomegaly mild vascular congestion OSSEOUS STRUCTURES: No significant abnormalities. VISUALIZED UPPER ABDOMEN: Normal. OTHER FINDINGS: Dual lead pacemaker IMPRESSION: Moderate cardiomegaly. Mild vascular congestion
[2018-06-05 14:26] LABS: IRON 39 ug/dL (45-180)
[2018-06-05 14:35] LABS: % IRON SATURATION 9 % (20-55); TOTAL IRON BINDING CAPACITY 430 ug/dL (261-462)
--- NOTE | 2018-06-05 15:21 | CON ---
DATE: 06/05/2018 LOCATION: The patient is in room 370, bed 1. REASON FOR CONSULTATION: Shortness of breath, history of fall while getting up from chair loss the balance and hit right side of the chest, right hip, right knee and complaining pain on those places. The patient has history of COPD; status post AICD insertion; atrial fibrillation, paroxysmal type. HISTORY OF PRESENT ILLNESS: The patient is 57-year-old male who has past history significant for paroxysmal atrial fibrillation, non-ischemic cardiomyopathy, nonobstructive coronary artery disease. He had three times cardiac catheterization. He also had AICD implant, status post radiofrequency ablation of atrial fibrillation, but after that he still had episodes of atrial fibrillation. The patient states that he was sitting in chair, he tried to getup and loss balance and fell down and hit the right side of the chest, right hip and right knee and that is where he is having pain. He also has 2 days history of shortness of breath. Denies palpitations. The patient also is markedly obese, history of bipolar and depression, anxiety disorder, diabetes, hypertension, hyperlipidemia, AICD placement and COPD. He also has history of right hip replacement in 02/2014. PAST SURGICAL HISTORY: The patient has history of gastric bypass following obesity, status post AICD insertion, history of thrombectomy from left lower extremity and PTCA of left SFA and popliteal trunk, history of DVT, history of catheter base treatment for right DVT of lower extremity, history of cardiac catheterization x3, nonobstructive coronary artery disease, history of radiofrequency ablation for atrial fibrillations and echo on 05/31/2017 showed LV ejection fraction around 35%, mild mitral regurgitation and mild tricuspid regurgitation. The patient also had history of right hip replacement 02/2018. PERSONAL HISTORY: The patient stopped smoking about 15 years ago and stop drinking more than 25 years ago. HOME MEDICATION: Included Warfarin 8.5 mg p.o. daily, spironolactone 25 mg b.i.d., Ativan 1 mg p.o. b.i.d. p.r.n., Diltiazem 30 mg p.o. b.i.d., Desyrel 150 mg p.o. at bedtime, Pletal 100 mg p.o. b.i.d., Zaroxolyn 5 mg p.o. Sunday, Sunday and Sunday, Oxycodone 1 tablet p.o. every 12 hour p.r.n., Singulair 10 mg p.o. at bedtime, metformin 1000 mg b.i.d., insulin lispro 6 units subcutaneous at bedtime, insulin detemir 20 units subcutaneous at bedtime, Requip 0.5 mg p.o. at bedtime, Lisinopril 2.5 mg daily, Ativan 1 mg p.o. b.i.d. p.r.n., Neurontin 300 mg p.o. b.i.d., Lasix 80 mg p.o. b.i.d., Medrol DosePak 21 tablets on the tapering schedule, magnesium oxide 400 mg t.i.d., Zithromax 500 mg p.o. daily, DuoNeb handheld nebulizer therapy. REVIEW OF SYSTEMS: All the system reviewed, positives mentioned in history, others are negative. ALLERGIES: THE PATIENT DENIES ANY ALLERGIES. FAMILY HISTORY: Nonsignificant. PHYSICAL EXAMINATION: VITAL SIGNS: Blood pressure 121/77, pulse 69 and respirations 20. The patient is afebrile. HEENT: Head is normocephalic. LABORATORY DATA: WBC 5.0, hemoglobin 10.6, hematocrit 35.2 and platelet 195. Sodium 139, potassium 3.9, BUN 20, creatinine 1.2., random sugar 146 and blood sugar 208 Calcium, phosphorus and magnesium are normal. AST and ALT normal. Magnesium level 1.7. Troponin 0.06, total protein 6.4, albumin 3.7. Prothrombin time today 19.1 with INR of 1.69. EKG showed pacemaker rhythm. Hip x-ray, right hip prosthesis. Acetabular component is in good position. Knee x-ray was normal, right side knee normal. Chest and rib x-rays of lungs are clear with no pleural effusion. Mild cardiomegaly. No pulmonary venous vascular congestion. Right rib, no fracture. DIAGNOSES: Chest pain, right hip pain, right knee pain, status post fall due to losing balance while getting out of chair, history of chronic obstructive pulmonary disease, non-ischemic cardiomyopathy, left ventricular ejection fraction on last echocardiogram was 35, status post automatic implantable cardioverter-defibrillator insertion, morbidly obese, diabetes, hypertension, hyperlipidemia, history of peripheral arterial disease, history of nonobstructive coronary artery disease, he had cardiac catheterization x3, history of paroxysmal atrial fibrillation, had ablation, but after ablation went in to again paroxysmal atrial fibrillation, history of gastric bypass and obesity, edema both feet and lower legs, chronic obstructive pulmonary disease, chest pain musculoskeletal due to fall with local tenderness, non-obstructive coronary artery disease and 3 times cardiac catheterization. PLAN: The patient already started on spironolactone 25 b.i.d., Warfarin 8.5 mg p.o. daily, Diltiazem 30 mg b.i.d., Desyrel 150 mg at bedtime, DuoNeb handheld nebulizer therapy, insulin as ordered, furosemide 60 mg IV every 12 hours, Zaroxolyn 5 mg p.o. daily, Lovenox 60 mg subcutaneous every 12 hours, magnesium oxide 400 mg p.o. t.i.d., the patient yesterday received magnesium sulfate IV, Neurontin 300 mg b.i.d., Requip 0.5 mg p.o. at bedtime, Singulair 10 mg at bedtime, Lisinopril 2.5 mg daily. We will continue present therapy. We will watch and take output and we will follow PT INR and we will follow closely with you. Tia Cabello MD
--- NOTE | 2018-06-05 15:46 | CT ---
Date of service: 06/05/2018 PROCEDURE: HISTORY: evaluate right prosthesis and the screew placement COMPARISON: TECHNIQUE: FINDINGS: Status post total right hip arthroplasty without evidence of fracture or dislocation. The acetabular cup contacts the superior acetabular roof. No evidence of periprosthetic osteolysis. The soft tissues are unremarkable. IMPRESSION: As above.
--- NOTE | 2018-06-05 16:27 | CON ---
DATE: 06/05/2018 PULMONARY CONSULTATION NOTE REFERRING PHYSICIAN: Axel Villagomez MD REASON FOR CONSULT: Chronic lung disease, sleep apnea. HISTORY OF PRESENT ILLNESS: This is a 57-year-old male, well known to us from previous admissions, has history of noncompliance with followup. He has known history of COPD on home oxygen, congestive heart failure, status post Pacemaker and AICD placement; sleep apnea; coronary artery disease; diabetes mellitus; atrial fibrillation; DVT, cardiomyopathy, morbid obesity. The patient is on anticoagulation therapy. The patient presented to the emergency room complaining of chest pain with shortness of breath for 3 days. He reported that shortness of breath worse with exertion. The patient also reported that he had a fall at home where he hit the right side of his body on a coffee table, also reported having cough nonproductive. Rapid response was called for chest pain yesterday. Today, the patient reports feeling better. Denies any chest pain, he does have some shortness of breath at times, especially lying flat. The patient reports that the patient had sleep study done at sleep center. PAST MEDICAL HISTORY: As per history of present illness. ALLERGIES: WILD MCCULLOUGH AND SEROQUEL. FAMILY HISTORY: No significant cardiopulmonary disease. SOCIAL HISTORY: Former smoker. Denies EtOH abuse. Former illicit drug use. MEDICATIONS: Reviewed. DuoNeb 3 mL inhalation three times a day, Dextrose 5% in water at 1000 mL p.r.n., Cardizem 30 mg twice a day, Lovenox 60 mg subcutaneously every 12 hours, Lasix 60mg IV push every 12 hours, Neurontin 300 mg twice a day, Levemir 20 units subcutaneously at bedside, Humalog sliding scale a.c. and at bedside, Humalog 6 units a.c., lisinopril 2.5 mg daily, Ativan 1 mg twice a day p.r.n., magnesium oxide 400 mg 3 times a day, metolazone 5 mg daily, Singulair 10 mg at bedtime, Percocet 10/325 mg every 6 hours p.r.n. for severe pain, ReQuip 0.5 mg at bedtime, spironolactone 25 mg twice a day, trazodone 150 mg at bedtime, and Coumadin 8.5 mg daily. REVIEW OF SYSTEMS: No headache, rhinitis, chest pain, abdominal pain, nausea, vomiting, diarrhea, leg pain reported. Does have occasional cough reported with shortness of breath at times. PHYSICAL EXAMINATION: VITAL SIGNS: Blood pressure 121/77, pulse 69, temperature 97.4, oxygen saturation 97% nasal cannula. GENERAL: No acute distress. HEENT: Moist mucous membranes. Crowded airway. Mallampati score of 4. NECK: Supple. No JVD. Short and thick. LUNGS: Few rhonchi bilaterally. CARDIOVASCULAR: S1 and S2. ABDOMEN: Soft and nontender. No distention. EXTREMITIES: Positive bilateral lower extremity edema. NEUROLOGIC: Awake, alert and verbal. Follows commands. LABORATORY DATA: Reviewed. WBC 5.0, RBC 4.29, hemoglobin 10.6, hematocrit 35.2, platelet 195. PT 19.1, INR 1.69. Sodium 139, potassium 3.9, chloride 103, carbon dioxide 27, anion gap 12, BUN 20, creatinine 1.3, GFR greater than 60. POC glucose 208. Random glucose 146, calcium 8.9, phosphorus 3.7, magnesium 1.7, iron 39, total bilirubin 0.5, AST 19, ALT 16, alkaline phosphatase 76, troponin 0.05, total protein 6.4, albumin 3.7, globulin 2.7, albumin and globulin ratio 1.4. Hip, pelvis x-ray right hip prosthesis, the longer screw through the acetabular component extends through the cortex of the iliac bone. Knee x-ray, unremarkable. Normal radiographs of right knee. Rib x-ray unremarkable, no right rib fracture, unremarkable radiograph of chest and right ribs. EKG showed ventricular paced rhythm with 1:1 capture underling rhythm probably atrial fibrillation. Chest x-ray shows moderate cardiomegaly, mild vascular congestion. IMPRESSION AND PLAN: Congestive heart failure exacerbation, status post mechanical fall, anemia, chronic obstructive pulmonary disease, cardiomyopathy, status post pacemaker and automated implantable cardioverter defibrillator, coronary artery disease, status post coronary artery bypass raft, sleep apnea, diabetes mellitus, atrial fibrillation, history of deep venous thrombosis, chronic back pain, diabetic neuropathy, anxiety, gastroesophageal reflux disease, peripheral neuropathy. Followup with the patient today regarding sleep apnea, the patient agreed to use CPAP. He does have some claustrophobia, so will use CPAP 8 cm, H2O with nasal mask while hospitalized. At home, the patient may do better with nasal pillow as outpatient. We will refer to social worker health services to follow up with patient's oxygen at home as he reports that equipment company wants to take oxygen machine. We will have physical therapy evaluate oxygenation. We will add Pulmicort nebulizer, continue DuoNeb nebulizer and Singulair. Do not recommend any steroids at this time. We will order follow up labs in the morning, sleep apnea precautions, head of bed elevated at 45 degrees,. Recommend the patient do full pulmonary function tests as an outpatient to evaluate cardiac lung disease. The patient is currently on anticoagulation therapy. We will place the patient is on Protonix for gastric prophylaxis, This patient was seen and examined with Dr. Godinez. Discussed assessment and plan as described above. This patient was seen and examined with Trudy Singh, nurse practitioner. Discussed assessment and plan as described above. Thank you for this consult and we will follow with you. Francisco Yates APN Tia Godinez MD [facility]
[2018-06-05] MEDS: Budesonide 0.5 mg/2 ml Inhal Susp UD IH SCH (19:50)
[2018-06-05] MEDS: Pantoprazole 40 mg EC Tab PO SCH (21:12)
[2018-06-05] MEDS: Insulin Detemir 100 units/ml Vial (Levemir) SC SCH (21:29)
--- NOTE | 2018-06-05 21:46 | HP ---
DATE OF EXAM: 06/05/2018 HISTORY OF PRESENT ILLNESS: The patient was seen and examined. I do agree with H and P that was done by the medical collections representative. I was involved in the plan of care. The patient is well known to me. He has a history of CHF, noncompliance. He has multiple other comorbidities like obstructive sleep apnea and coronary artery disease. He recently had a sleep study. He does not aware of the result. He complain of lower extremity edema. He has acute CHF secondary to systolic dysfunction. He has subtherapeutic INR because of adherence to his medications that has been a problem in the past. The patient is going to be on Lasix and metolazone. He has been complaining of his hip right that is causing worsening pain. CT done shows that the patient is status post arthroplasty without evidence of fracture or dislocation. He is going to be followed closely. I will have Cardiology and Pulmonary see the patient. We will await further input from the specialist. Axel Villagomez MD
[2018-06-05 21:59] LABS: FERRITIN 16.6 ng/mL
[2018-06-05 22:30] LABS: FOLATE 5.9 ng/mL
[2018-06-06 06:30] LABS: BASO # 0.03 K/mm3 (0.0-2.0); BASO % 0.5 % (0.0-3.0); EOS # 0.1 (0.0-0.7); EOS % 2.1 % (1.5-5.0); HEMOGLOBIN 10.4 g/dL (14.0-18.0); LYMPH # 1.5 (1.2-3.4); LYMPH % 25.4 % (22.0-35.0); MEAN CELL VOLUME 80.2 fl (80.0-105.0); MEAN CORPUSCULAR HEMOGLOBIN 24.8 pg (25.0-35.0); MEAN PLATELET VOLUME 9.6 fl (7.0-11.0); MONO # 0.6 (0.1-0.6); MONO % 10.2 % (1.0-6.0); RBC 4.19 10^6/uL (3.5-6.1); RED CELL DISTRIBUTION WIDTH 17.3 % (11.5-14.5); WHITE BLOOD COUNT 5.8 10^3/uL (4.5-11.0)
[2018-06-06 06:31] LABS: INR 2.49; PROTHROMBIN TIME 28.1 SECONDS (9.4-12.5)
[2018-06-06 06:50] LABS: ALB/GLOB RATIO 1.4 (1.1-1.8); ALBUMIN 3.5 g/dL (3.0-4.8); ALT/SGPT 8 U/L (7-56); AST/SGOT 17 U/L (17-59); BLOOD UREA NITROGEN 28 mg/dL (7-21); CALCIUM 8.8 mg/dL (8.4-10.5); GFR NON-AFRICAN AMERICAN 52
--- NOTE | 2018-06-06 07:00 | CP.PCM.PN ---
<Kasie Fernandez - Last Filed: 06/06/18 12:19> Subjective - Date & Time of Evaluation Date of Evaluation: 06/06/18 Time of Evaluation: 07:15 - Subjective Subjective: IM Resident progress note for Dr. Villagomez's service. Patient with no acute events. Patient states the sob has improved. No chest pain. Complaining of right hip pain. Denies fever or chills. Tolerating po. Objective - Vital Signs/Intake and Output Vital Signs (last 24 hours): Temp Pulse Resp BP Pulse Ox 97.4 F L 71 20 114/71 97 06/05/18 08:29 06/06/18 05:45 06/05/18 08:29 06/05/18 21:13 06/05/18 08:29 Intake and Output: 06/05/18 06/06/18 18:59 06:59 Intake Total 1260 120 Output Total 700 275 Balance 560 -155 - Medications Medications: Current Medications Albuterol/Ipratropium (Duoneb 3 Mg/0.5 Mg (3 Ml) Ud) 3 ml [facility]P [facility] Last Admin: 06/05/18 19:50 Dose: Not Given Budesonide (Pulmicort Respules) 0.5 mg [facility] [id number] [facility] Last Admin: 06/05/18 19:50 Dose: Not Given Dextrose (Dextrose 50% Inj) 0 ml IV STAT PRN; Protocol PRN Reason: Hypoglycemia Protocol Diltiazem HCl (Cardizem) 30 mg PO BID [facility] Last Admin: 06/05/18 17:15 Dose: 30 mg Furosemide (Lasix) 60 mg IVP Q12 [facility] Gabapentin (Neurontin) 300 mg PO BID [facility]; Protocol Last Admin: 06/05/18 17:15 Dose: 300 mg Dextrose (Dextrose 5% In Water 1000 Ml) 1,000 mls @ 0 mls/hr IV .Q0M PRN; Protocol PRN Reason: Hypoglycemia Protocol Insulin Detemir (Levemir) 20 unit SC HS [facility] Last Admin: 06/05/18 21:29 Dose: 20 units Insulin Human Lispro (Humalog Med) 0 units SC ACHS [facility]; Protocol Last Admin: 06/05/18 21:23 Dose: Not Given Insulin Human Lispro (Humalog) 6 units SC AC [facility] Last Admin: 06/05/18 16:29 Dose: Not Given Lisinopril (Zestril) 2.5 mg PO DAILY [facility] Last Admin: 06/05/18 10:07 Dose: 2.5 mg Lorazepam (Ativan) 1 mg PO BID PRN; Protocol PRN Reason: Anxiety Last Admin: 06/05/18 21:12 Dose: 1 mg Magnesium Oxide (Mag-Ox) 400 mg PO TID [facility] Last Admin: 06/05/18 17:15 Dose: 400 mg Metolazone (Zaroxolyn) 5 mg PO DAILY [facility] Last Admin: 06/05/18 10:07 Dose: 5 mg Montelukast Sodium (Singulair) 10 mg PO HS [facility] Last Admin: 06/05/18 21:12 Dose: 10 mg Oxycodone/Acetaminophen (Percocet 10/325 Mg Tab) 1 tab PO Q6H PRN PRN Reason: Pain, severe (8-10) Last Admin: 06/05/18 17:14 Dose: 1 tab Pantoprazole Sodium (Protonix Ec Tab) 40 mg PO HS [facility] Last Admin: 06/05/18 21:12 Dose: 40 mg Ropinirole HCl (Requip) 0.5 mg PO HS [facility] Last Admin: 06/05/18 21:12 Dose: 0.5 mg Spironolactone (Aldactone) 25 mg PO BID [facility] Last Admin: 06/05/18 17:15 Dose: 25 mg Trazodone HCl (Desyrel) 150 mg PO HS [facility] Last Admin: 06/05/18 21:12 Dose: 150 mg Warfarin Sodium (Coumadin) 8.5 mg PO 1800 [facility] - Labs Labs: 06/06/18 06:15 06/06/18 06:15 PT 28.1 SECONDS (9.4-12.5) H 06/06/18 06:15 INR 2.49 06/06/18 06:15 APTT 30.2 Seconds (26.9-38.3) 06/04/18 16:15 - Constitutional Appears: No Acute Distress, Other (Morbidly obese ) - Head Exam Head Exam: ATRAUMATIC, NORMAL INSPECTION, NORMOCEPHALIC - Eye Exam Eye Exam: EOMI, Normal appearance, PERRL. absent: Scleral icterus Pupil Exam: NORMAL ACCOMODATION - ENT Exam ENT Exam: Mucous Membranes Moist - Neck Exam Neck Exam: Normal Inspection. absent: Lymphadenopathy, Meningismus, Thyromegaly - Respiratory Exam Respiratory Exam: Clear to Ausculation Bilateral, NORMAL BREATHING PATTERN. absent: Decreased Breath Sounds, Prolonged Expiratory Phase, Rales, Rhonchi, Wheezes, Respiratory Distress, Stridor - Cardiovascular Exam Cardiovascular Exam: Irregular Rhythm, +S1, +S2. absent: Bradycardia, Tachycardia, Clicks, Diastolic murmur, Gallop, REGULAR RHYTHM, JVD, RRR, Rubs, Murmur - GI/Abdominal Exam GI & Abdominal Exam: Soft, Normal Bowel Sounds. absent: Distended, Firm, Guarding, Rigid, Tenderness, Hyperactive Bowel Sounds, Organomegaly, Rebound Additional comments: Obese abdomen. - Extremities Exam Extremities Exam: Normal Capillary Refill, Pedal Edema (right greater than left, + chronic skin discoloration), Tenderness (right side ) - Back Exam Back Exam: NORMAL INSPECTION. 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 Monitor I&O and daily weight. Continue on Heart healthy and 2 gram sodium diet. Ramp Jockey is following. For lower extremity edema, patient had lower extremity U/S with no dvt in March,, will order compression socks, and keep the extremities elevated. Patient's INR improved to 2.49, will discontinue Lovenox and continue with Coumadin 8.5 mg daily. For anemia, Vitamin b12 and folic acid are on the lower side of normal, will start po folic acid and give a dose of IM vitamin B12. Patient also has iron deficiency anemia, will give IV iron for 5 days and switch to po. Patient will need colonoscopy as outpatient. Duoneb, pulmocort and singulair for copd. For WESLY on cpap at night. Beet Worker following. Cardizem po for afib. Gabapentin for neuropathy. Levemir 20 hs, humalog 6 sc ac and insulin sliding scale for DM. Patient is on Ativan prn for anxiety, and rospinirol. on aldactone, and lisinopril for chf. On PO mag 400 bid for hypomagnesemia. Continue with Percocet prn for pain. For mechanical fall, CT of the right hip with no fractures,or dislocation. Pending PT evaluation. Patient seen, examined and case discussed with Dr. Villagomez. <xAel Villagomez S - Last Filed: 06/06/18 13:25> Objective - Vital Signs/Intake and Output Vital Signs (last 24 hours): Temp Pulse Resp BP Pulse Ox 97.4 F L 70 20 118/75 98 06/06/18 08:55 06/06/18 10:00 06/06/18 08:55 06/06/18 09:19 06/06/18 08:55 Intake and Output: 06/06/18 06/06/18 06:59 18:59 Intake Total 120 Output Total 275 Balance -155 - Medications Medications: Current Medications Albuterol/Ipratropium (Duoneb 3 Mg/0.5 Mg (3 Ml) Ud) 3 ml [facility] Last Admin: 06/06/18 08:17 Dose: Not Given Budesonide (Pulmicort Respules) 0.5 mg IH [id number] [facility] Last Admin: 06/06/18 08:17 Dose: Not Given Dextrose (Dextrose 50% Inj) 0 ml IV STAT PRN; Protocol PRN Reason: Hypoglycemia Protocol Diltiazem HCl (Cardizem) 30 mg PO BID [facility] Last Admin: 06/06/18 09:21 Dose: Not Given Folic Acid (Folic Acid) 1 mg PO DAILY [facility] Last Admin: 06/06/18 09:18 Dose: 1 mg Furosemide (Lasix) 40 mg IVP Q12 [facility] Last Admin: 03/21/19 10:11 Dose: Not Given Gabapentin (Neurontin) 300 mg PO BID [facility]; Protocol Last Admin: 06/06/18 09:18 Dose: 300 mg Dextrose (Dextrose 5% In Water 1000 Ml) 1,000 mls @ 0 mls/hr IV .Q0M PRN; Protocol PRN Reason: Hypoglycemia Protocol Iron Sucrose 200 mg/ Sodium (Chloride) 110 mls @ 110 mls/hr IVPB ONCE [facility] Stop: 06/11/18 08:16 Last Admin: 06/06/18 09:18 Dose: 110 mls/hr Milrinone Lactate/Dextrose (Primacor 20mg/100ml D5w) 100 mls @ 13.911 mls/hr IV .Q7H12M PRN; Protocol PRN Reason: TITRATE PER MD ORDER Stop: 06/08/18 07:00 Insulin Detemir (Levemir) 20 unit SC HS [facility] Last Admin: 06/05/18 21:29 Dose: 20 units Insulin Human Lispro (Humalog Med) 0 units SC ACHS [facility]; Protocol Last Admin: 06/06/18 13:20 Dose: 3 unit Insulin Human Lispro (Humalog) 6 units SC AC [facility] Last Admin: 06/06/18 13:20 Dose: 6 units Lisinopril (Zestril) 2.5 mg PO DAILY [facility] Last Admin: 06/06/18 09:18 Dose: 2.5 mg Lorazepam (Ativan) 1 mg PO BID PRN; Protocol PRN Reason: Anxiety Last Admin: 06/05/18 21:12 Dose: 1 mg Magnesium Oxide (Mag-Ox) 400 mg PO TID [facility] Last Admin: 06/06/18 13:21 Dose: 400 mg Montelukast Sodium (Singulair) 10 mg PO HS [facility] Last Admin: 06/05/18 21:12 Dose: 10 mg Oxycodone/Acetaminophen (Percocet 10/325 Mg Tab) 1 tab PO Q6H PRN PRN Reason: Pain, severe (8-10) Last Admin: 06/06/18 08:04 Dose: 1 tab Pantoprazole Sodium (Protonix Ec Tab) 40 mg PO HS [facility] Last Admin: 06/05/18 21:12 Dose: 40 mg Ropinirole HCl (Requip) 0.5 mg PO [facility] Last Admin: 06/05/18 21:12 Dose: 0.5 mg Spironolactone (Aldactone) 25 mg PO BID [facility] Last Admin: 06/06/18 09:18 Dose: 25 mg Trazodone HCl (Desyrel) 150 mg PO HS [facility] Last Admin: 06/05/18 21:12 Dose: 150 mg Warfarin Sodium (Coumadin) 8.5 mg PO 1800 [facility] - Labs Labs: 06/06/18 06:15 06/06/18 06:15 PT 28.1 SECONDS (9.4-12.5) H 06/06/18 06:15 INR 2.49 06/06/18 06:15 APTT 30.2 Seconds (26.9-38.3) 06/04/18 16:15 Assessment and Plan - Assessment and Plan (Free Text) Plan: Pt seen and examined by me. I have reviewed the note of the manager of medical and I agree with it. I have discussed the assessment and plan with the resident. I have reviewed the medications and the last labs.
[2018-06-06] MEDS: Oxycodone/Acetaminophen 10/325 mg Tab PO PRN ×2 (08:04→21:45)
[2018-06-06] MEDS: Albuterol-Ipratrop 3 mg / 0.5 (3 ml) UD IH SCH ×3 (08:17→19:33)
[2018-06-06] MEDS: Budesonide 0.5 mg/2 ml Inhal Susp UD IH SCH ×2 (08:17→19:33)
--- NOTE | 2018-06-06 08:33 | CP.PCM.PN ---
Subjective - Date & Time of Evaluation Date of Evaluation: 06/06/18 Time of Evaluation: 07:05 - Subjective Subjective: Awake, sitting side of bed, complaining of hip pain,denies chest pain Reason for consultation and follow up: Cardiac evaluation of shortness of breath, admitted due to fall hitting his right hip and right chest and knee, history of cardiomyopathy, AICD, non-obstructive coronary artery disease, COPD Seen and examined by me and Dr. Rajan Objective - Vital Signs/Intake and Output Vital Signs (last 24 hours): Temp Pulse Resp BP Pulse Ox 97.4 F L 71 20 114/71 97 06/05/18 08:29 06/06/18 05:45 06/05/18 08:29 06/05/18 21:13 06/05/18 08:29 Intake and Output: 06/06/18 06/06/18 06:59 18:59 Intake Total 120 Output Total 275 Balance -155 - Medications Medications: Current Medications Albuterol/Ipratropium (Duoneb 3 Mg/0.5 Mg (3 Ml) Ud) 3 ml IH TIDRESP [facility] Last Admin: 06/06/18 08:17 Dose: Not Given Budesonide (Pulmicort Respules) 0.5 mg IH [id number] [facility] Last Admin: 06/06/18 08:17 Dose: Not Given Dextrose (Dextrose 50% Inj) 0 ml IV STAT PRN; Protocol PRN Reason: Hypoglycemia Protocol Diltiazem HCl (Cardizem) 30 mg PO BID [facility] Last Admin: 06/05/18 17:15 Dose: 30 mg Folic Acid (Folic Acid) 1 mg PO DAILY [facility] Furosemide (Lasix) 60 mg IVP Q12 [facility] Gabapentin (Neurontin) 300 mg PO BID [facility]; Protocol Last Admin: 06/05/18 17:15 Dose: 300 mg Dextrose (Dextrose 5% In Water 1000 Ml) 1,000 mls @ 0 mls/hr IV .Q0M PRN; Protocol PRN Reason: Hypoglycemia Protocol Iron Sucrose 200 mg/ Sodium (Chloride) 110 mls @ 110 mls/hr IVPB ONCE [facility] Stop: 06/11/18 08:16 Insulin Detemir (Levemir) 20 unit SC HS [facility] Last Admin: 06/05/18 21:29 Dose: 20 units Insulin Human Lispro (Humalog Med) 0 units SC ACHS [facility]; Protocol Last Admin: 06/05/18 21:23 Dose: Not Given Insulin Human Lispro (Humalog) 6 units SC AC [facility] Last Admin: 06/05/18 16:29 Dose: Not Given Lisinopril (Zestril) 2.5 mg PO DAILY [facility] Last Admin: 06/05/18 10:07 Dose: 2.5 mg Lorazepam (Ativan) 1 mg PO BID PRN; Protocol PRN Reason: Anxiety Last Admin: 06/05/18 21:12 Dose: 1 mg Magnesium Oxide (Mag-Ox) 400 mg PO TID [facility] Last Admin: 06/05/18 17:15 Dose: 400 mg Metolazone (Zaroxolyn) 5 mg PO DAILY [facility] Last Admin: 06/05/18 10:07 Dose: 5 mg Montelukast Sodium (Singulair) 10 mg PO HS [facility] Last Admin: 06/05/18 21:12 Dose: 10 mg Oxycodone/Acetaminophen (Percocet 10/325 Mg Tab) 1 tab PO Q6H PRN PRN Reason: Pain, severe (8-10) Last Admin: 06/06/18 08:04 Dose: 1 tab Pantoprazole Sodium (Protonix Ec Tab) 40 mg PO HS [facility] Last Admin: 06/05/18 21:12 Dose: 40 mg Ropinirole HCl (Requip) 0.5 mg PO HS [facility] Last Admin: 06/05/18 21:12 Dose: 0.5 mg Spironolactone (Aldactone) 25 mg PO BID [facility] Last Admin: 06/05/18 17:15 Dose: 25 mg Trazodone HCl (Desyrel) 150 mg PO HS [facility] Last Admin: 06/05/18 21:12 Dose: 150 mg Warfarin Sodium (Coumadin) 8.5 mg PO 1800 [facility] - Labs Labs: 06/06/18 06:15 06/06/18 06:15 PT 28.1 SECONDS (9.4-12.5) H 06/06/18 06:15 INR 2.49 06/06/18 06:15 APTT 30.2 Seconds (26.9-38.3) 06/04/18 16:15 - Constitutional Appears: Non-toxic, No Acute Distress - Head Exam Head Exam: NORMAL INSPECTION, NORMOCEPHALIC - Eye Exam Eye Exam: Normal appearance Pupil Exam: NORMAL ACCOMODATION - ENT Exam ENT Exam: Mucous Membranes Moist - Respiratory Exam Respiratory Exam: Decreased Breath Sounds, Clear to Ausculation Bilateral, NORMAL BREATHING PATTERN - Cardiovascular Exam Cardiovascular Exam: +S1, +S2 Additional comments: AICD/PPM V pacing 70's - GI/Abdominal Exam GI & Abdominal Exam: Soft, Normal Bowel Sounds - Extremities Exam Extremities Exam: Full ROM Additional comments: 3-4+ edema - Neurological Exam Neurological Exam: Alert, Awake, Oriented x3 - Psychiatric Exam Psychiatric exam: Normal Affect, Normal Mood - Skin Skin Exam: Dry, Normal Color, Warm Assessment and Plan - Assessment and Plan (Free Text) Assessment: A 57 year old male who came in to the ER due to complaining of shortness of breath for the past 3 days prior to admission. He also claimed that he fell after loosing his balance and hit his right chest, hip, and knee on coffee table. History of chronic systolic congestive heart failure, COPD on home oxyge n, obesity, obstructive sleep apnea, diabetes,depression, anxiety, GERD, history of fall, atrial fibrillation on Coumadin, history of DVT, Gastric bypass, PVD, post angioplasty and drug eluding stent placement in the left tibioperoneal trunk, recent left hip replacement at [facility]. Cardiac cath done on 10/2014 showed normal coronaries. Echo done on 05/06/18 showed LVEF 36%, severely impaired systolic function,RV is dialted and severely hypokinetic. Chest X ray showed mild vascular congestion, cardiomegaly. Exacerbation of acute on chronic systolic congestive heart failure. Continue on diuretics. Chest pain muskuloskeletal in nature due to fall. Right hip X ray showed right hip prosthesis, the longer screw through the acetabular component extends through the cortex of the iliac bone. Knee and rib X ray-unremarkable. Dr. Capellan on consult. Plan: Feels better but complaining of right hip pain Less short of breath Heart rate controlled Blood pressure controlled On Cardizem 30 mg BID,Lasix 60 mg IV every 12 hours, Lisinopril 2.5 mg daily,Zaroxylyn 5 mg daily,Aldactone 25 mg BID Coumadin 8.5 mg daily Continue to diurese Continue current treatment Continue current medications Glucose control Will follow up Plan and treatment discussed with Dr. Rajan
[2018-06-06] MEDS: Insulin Lispro (humaLOG) MEDIUM Coverage SC SCH ×4 (09:17→21:53)
[2018-06-06] MEDS: Insulin Lispro 1 UNITS/0.01 ML SC SCH ×3 (09:17→18:39)
[2018-06-06] MEDS: Magnesium Oxide 400 mg Tab UD PO SCH ×3 (09:18→18:06)
[2018-06-06] MEDS: metOLazone 5 MG TAB PO SCH (09:18)
--- NOTE | 2018-06-06 11:16 | PN ---
DATE: 06/06/2018 PULMONARY PROGRESS NOTE REFERRING PHYSICIAN: Dr. Villagomez. SUBJECTIVE: The patient is seen, sitting in armchair in room. No acute distress. No overnight events reported. Does report having some right hip pain. Does report having occasional cough, did not use CPAP machine last night. No headache, rhinitis, chest pain, abdominal pain, nausea, vomiting, diarrhea or leg pain reported. OBJECTIVE: GENERAL: No acute distress. VITAL SIGNS: Blood pressure 118/75, pulse 71, temperature 97.4 and oxygen saturation 98%. HEENT: Moist mucous membranes. Crowded airway. Mallampati score of 4. NECK: Supple. No JVD. Short and thick. LUNGS: Fair airflow bilaterally. Few scattered rhonchi. CARDIOVASCULAR: S1 and S2. ABDOMEN: Soft and nontender. No distention. EXTREMITIES: Bilateral lower extremity edema. NEUROLOGIC: Awake, alert and verbal. Follows commands. MEDICATIONS: Reviewed. DuoNeb 3 mL inhalation 3 times a day, Pulmicort 0.5 mg inhalation every 12 hours, Cardizem 30 mg twice a day, folic acid 1 mg daily, Lasix 40 mg IV push every 12 hours, Neurontin 300 mg twice a day, Levemir 20 units subcutaneously at bedtime, Humalog sliding scale a.c. and at bedtime, Humalog 6 units a.c., iron sucrose 200 mg daily, lisinopril 2.5 mg daily, Ativan 1 mg twice a day p.r.n., magnesium oxide 400 mg 3 times a day, Singulair 10 mg at bedtime, Percocet 10/325 mg one tab every 6 hours p.r.n., Protonix 40 mg at bedtime, Requip 0.5 mg at bedtime, Aldactone 25 mg twice a day, trazodone 150 mg at bedtime and Coumadin 8.5 mg daily. LABORATORY DATA: Reviewed. WBC 5.8, RBC 4.19, hemoglobin 10.4, hematocrit 33.1, and platelets 184. PT 28.1, and INR 2.49. Sodium 138, potassium 4.2, chloride 100, carbon dioxide 31, anion gap 12, BUN 28, creatinine 1.4, GFR 52, POC glucose 167, random glucose 193, calcium 8.8, phosphorus 4.5, magnesium 1.8, total bilirubin 0.3, AST 17, ALT 8, alkaline phosphatase 67, total protein 6, albumin 3.5, globulin 2.5, and albumin-globulin ratio 1.4. Chest CT shows status post total right hip arthroplasty without evidence of fracture or dislocation, the acetabular cup contacts the superior acetabular roof. No evidence of periprosthetic osteolysis, soft tissues are unremarkable. IMPRESSION AND PLAN: Congestive heart failure, status post mechanical fall, anemia, chronic obstructive pulmonary disease, cardiomyopathy, status post pacemaker and automated implantable cardioverter defibrillator placement, coronary artery disease, status post coronary artery bypass graft, sleep apnea, diabetes mellitus, atrial fibrillation, history of deep venous thrombosis, chronic back pain, diabetic neuropathy, anxiety and gastroesophageal reflux disease. Pulmonary point of view; continue to encourage continuous positive airway pressure use at bedtime, sleep apnea precaution, head of bed elevated at 45 degrees. As outpatient we will recommend the patient to use nasal pillow as he reports some claustrophobia with nasal and full face mask. Continue inhaled bronchodilators, leukotriene inhibitors, fall precaution. The patient currently on anticoagulation therapy and gastric prophylaxis. We recommend the patient have full pulmonary function test as outpatient to evaluate chronic lung disease. The patient is pending Orthopedic consult. This patient was seen and examined with Dr. Godinez. Discussed assessment and plan as described above. This patient was seen and examined with Francisco Yates, nurse practitioner. Discussed assessment and plan as described above. Thank you for this consult and we will follow with you. Francisco Yates APN Tia Godinez MD [facility]
--- NOTE | 2018-06-06 11:37 | CP.PCM.PCO ---
Physician Communication Note - Physician Communication Note Physician Communication Note: patient seen with PT after walking, desat to 86%RA,PT rec.TcU,needs auth
--- NOTE | 2018-06-06 14:53 | PN ---
DATE: 06/06/2018 SUBJECTIVE: The patient was seen and examined. I do agree with the note of the medical territory manager. Plan of care was reviewed with the resident. The patient has acute CHF secondary to systolic dysfunction. He is receiving IV Lasix. His creatinine has increased. I will discontinue the metolazone that he was started on. The patient is complaining of hip pain. CAT scan was done and I did review the CAT scan. The patient is on Coumadin and Lovenox. We will discontinue Lovenox as the INR is therapeutic. He is on Cardizem for his atrial fibrillation. He was seen by Physical Therapy and was advised that the patient go to the transitional care unit. I will put in a TCU evaluation to see if the patient qualifies. Axel Villagomez MD
[2018-06-06] MEDS: Milrinone 20mg/100ml D5W 100 ML IV PRN (19:21)
[2018-06-06] MEDS: Pantoprazole 40 mg EC Tab PO SCH (21:47)
[2018-06-06] MEDS: Insulin Detemir 100 units/ml Vial (Levemir) SC SCH (21:47)
[2018-06-06] MEDS: WARFARIN PO SCH ×2 (21:52→22:22)
--- NOTE | 2018-06-07 00:21 | CON ---
DATE: 06/06/2018 ORTHOPEDIC CONSULTATION HISTORY OF PRESENT ILLNESS: A 57-year-old male. Patient is known to me. In 02/2018, I did a right total hip replacement. He is doing well, walks with a cane. He did have an episode where he fell approximately 5 days ago on a retreat and landed right on his right hip on the total hip site and several days later, he tripped over his cane and fell again, landing on the right side, but the x-ray of the total hip done on admission on 06/04/2018 shows a well placed total hip replacement, two cancellous screws to hold that and stabilized the acetabular component to the pelvis just one of the screw is a little longer than expected as we did not do x-ray at that time, but it is not interfering with any neurologic or vascular structures. Basically, he moves the hip quite well. The hip was tested by him falling twice and it is in very good position including the femoral component and acetabular component. I am just going to order a blood test for and to make sure he does not have high sed rate or C-reactive protein. We will continue therapy as he is a large frame individual and it is going to take longer to resolve any muscle contusions from the surgery and fall to see if he does have pain on the greater trochanteric area, but there is no evidence of a fracture or displaced total hip replacement. We will have therapy handle him and get some more strength and increase of abductor muscles, but the total hip is in good position, does not need any revision surgery. FINAL DIAGNOSES: Well-fixed right total hip with deep contusion of the right proximal femur and trochanteric area consistent with deep contusion from a fall on this rt thr. Wes Capellan DO [facility]
[2018-06-07] MEDS: Milrinone 20mg/100ml D5W 100 ML IV PRN ×3 (01:49→19:29)
[2018-06-07 06:29] LABS: BASO # 0.03 K/mm3 (0.0-2.0); BASO % 0.4 % (0.0-3.0); EOS # 0.2 (0.0-0.7); HEMOGLOBIN 11.5 g/dL (14.0-18.0); LYMPH # 1.4 (1.2-3.4); LYMPH % 18.8 % (22.0-35.0); MEAN CELL VOLUME 79.6 fl (80.0-105.0); MEAN CORPUSCULAR HEMOGLOBIN 25.2 pg (25.0-35.0); MEAN CORPUSCULAR HGB CONC 31.6 g/dl (31.0-37.0); MEAN PLATELET VOLUME 9.6 fl (7.0-11.0); MONO # 0.6 (0.1-0.6); MONO % 7.5 % (1.0-6.0); RBC 4.57 10^6/uL (3.5-6.1); RED CELL DISTRIBUTION WIDTH 17.1 % (11.5-14.5); WHITE BLOOD COUNT 7.4 10^3/uL (4.5-11.0)
[2018-06-07 06:30] LABS: INR 2.4; PROTHROMBIN TIME 27.1 SECONDS (9.4-12.5)
[2018-06-07 06:35] LABS: ALB/GLOB RATIO 1.2 (1.1-1.8); ALBUMIN 3.5 g/dL (3.0-4.8)
--- NOTE | 2018-06-07 07:40 | CP.PCM.DIS ---
Provider - Provider Date of Admission: 06/05/18 18:24 Attending physician: Axel Villagomez MD Consults: 06/04/18 19:22 Cardiology Consult Routine Comment: Consulting Provider: Tia Rajan Consulting Physician: Tia Rajan Reason for Consult: CHF, risk factors 06/05/18 09:45 Pulmonology Consult Routine Comment: Consulting Provider: Tia Godinez Consulting Physician: Tia Godinez Reason for Consult: WESLY on cpap 06/05/18 14:51 Social Work Referral Routine Comment: O2 dependent Physician Instructions: Reason For Exam: follow up oxygen at home 06/06/18 08:00 Orthopedic Consult Routine Comment: Consulting Provider: Wes Capellan Consulting Physician: Wes Capellan Reason for Consult: right hip pain, h/o hip replacement, displaced screw? 06/06/18 13:25 TCU [Evaluation for TRCU] Routine Comment: Physician Instructions: Reason For Exam: gait instability Time Spent in preparation of Discharge (in minutes): 45 Hospital Course - Lab Results Lab Results: Most Recent Lab Values WBC 7.4 10^3/uL (4.5-11.0) D 06/07/18 06:00 RBC 4.57 10^6/uL (3.5-6.1) 06/07/18 06:00 Hgb 11.5 g/dL (14.0-18.0) L 06/07/18 06:00 Hct 36.4 % (42.0-52.0) L 06/07/18 06:00 MCV 79.6 fl (80.0-105.0) L 06/07/18 06:00 MCH 25.2 pg (25.0-35.0) 06/07/18 06:00 MCHC 31.6 g/dl (31.0-37.0) 06/07/18 06:00 RDW 17.1 % (11.5-14.5) H 06/07/18 06:00 Plt Count 214 10^3/uL (120.0-450.0) 06/07/18 06:00 MPV 9.6 fl (7.0-11.0) 06/07/18 06:00 Neut % (Auto) 71.3 % (50.0-68.0) H 06/07/18 06:00 Lymph % (Auto) 18.8 % (22.0-35.0) L 06/07/18 06:00 [place] % (Auto) 7.5 % (1.0-6.0) H 06/07/18 06:00 Eos % (Auto) 2.0 % (1.5-5.0) 06/07/18 06:00 Baso % (Auto) 0.4 % (0.0-3.0) 06/07/18 06:00 Lymph # (Auto) 1.4 (1.2-3.4) 06/07/18 06:00 [place] # (Auto) 0.6 (0.1-0.6) 06/07/18 06:00 Eos # (Auto) 0.2 (0.0-0.7) 06/07/18 06:00 Baso # (Auto) 0.03 K/mm3 (0.0-2.0) 06/07/18 06:00 Absolute Neuts (auto) 5.25 (1.4-6.5) 06/07/18 06:00 ESR 5 mm/hr (0.00-15.0) 06/06/18 06:30 PT 27.1 SECONDS (9.4-12.5) H 06/07/18 06:00 INR 2.40 06/07/18 06:00 APTT 30.2 Seconds (26.9-38.3) 06/04/18 16:15 Sodium 136 mmol/L (132-148) 06/07/18 06:00 Potassium 3.9 mmol/L (3.6-5.0) 06/07/18 06:00 Chloride 95 mmol/L (98-107) L 06/07/18 06:00 Carbon Dioxide 30 mmol/L (21-33) 06/07/18 06:00 Anion Gap 15 (10-20) 06/07/18 06:00 BUN 28 mg/dL (7-21) H 06/07/18 06:00 Creatinine 1.5 mg/dl (0.8-1.5) 06/07/18 06:00 Est GFR ( Amer) 58 06/07/18 06:00 Est GFR (Non-Af Amer) 48 06/07/18 06:00 POC Glucose (mg/dL) 200 mg/dL (65-110) H 06/07/18 07:22 Random Glucose 163 mg/dL (70-110) H 06/07/18 06:00 Calcium 9.0 mg/dL (8.4-10.5) 06/07/18 06:00 Phosphorus 4.0 mg/dL (2.5-4.5) 06/07/18 06:00 Magnesium 1.8 mg/dL (1.7-2.2) 06/07/18 06:00 Iron 39 ug/dL (45-180) L 06/05/18 11:00 TIBC 430 ug/dL (261-462) 06/05/18 11:00 % Saturation 9 % (20-55) L 06/05/18 11:00 Ferritin 16.6 ng/mL 06/05/18 07:00 Total Bilirubin 0.4 mg/dL (0.2-1.3) 06/07/18 06:00 AST 17 U/L (17-59) 06/07/18 06:00 ALT 8 U/L (7-56) 06/07/18 06:00 Alkaline Phosphatase 79 U/L (38-126) 06/07/18 06:00 Lactate Dehydrogenase 432 U/L (333-699) 06/04/18 16:15 Total Creatine Kinase 51 U/L (35-230) 06/04/18 16:15 Troponin I 0.05 ng/mL 06/05/18 13:00 C-Reactive Protein 11.30 mg/L (0.0-9.9) H 06/06/18 06:30 NT-Pro-B Natriuret Pep 2760 pg/mL (0-450) H 06/04/18 16:15 Total Protein 6.4 g/dL (5.8-8.3) 06/07/18 06:00 Albumin 3.5 g/dL (3.0-4.8) 06/07/18 06:00 Globulin 2.9 gm/dL 06/07/18 06:00 Albumin/Globulin Ratio 1.2 (1.1-1.8) 06/07/18 06:00 Vitamin B12 246 pg/mL (239-931) 06/05/18 07:00 Folate 5.9 ng/mL 06/05/18 07:00 Discharge Exam - Head Exam Head Exam: ATRAUMATIC, NORMAL INSPECTION, NORMOCEPHALIC Discharge Plan - Follow Up Plan Condition: STABLE Disposition: HOME/ ROUTINE
[2018-06-07] MEDS: Budesonide 0.5 mg/2 ml Inhal Susp UD IH SCH ×2 (07:41→20:35)
[2018-06-07] MEDS: Albuterol-Ipratrop 3 mg / 0.5 (3 ml) UD IH SCH ×3 (07:41→20:35)
--- NOTE | 2018-06-07 07:50 | CP.PCM.PN ---
Subjective - Date & Time of Evaluation Date of Evaluation: 06/07/18 Time of Evaluation: 06:40 - Subjective Subjective: Awake, out of bed to chair, complaining of tolerable hip pain, denies chest pain Reason for consultation and follow up: Cardiac evaluation of shortness of breath, admitted due to fall hitting his right hip and right chest and knee, hi story of cardiomyopathy, AICD, non-obstructive coronary artery disease, COPD Seen and examined by me and Dr. Rajan Objective - Vital Signs/Intake and Output Vital Signs (last 24 hours): Temp Pulse Resp BP Pulse Ox 98 F 70 20 105/65 95 06/07/18 06:10 06/07/18 06:10 06/07/18 06:10 06/07/18 06:10 06/06/18 19:45 Intake and Output: 06/07/18 06/07/18 06:59 18:59 Intake Total 788 Output Total 1100 Balance -312 - Medications Medications: Current Medications Albuterol/Ipratropium (Duoneb 3 Mg/0.5 Mg (3 Ml) Ud) 3 ml IH TIDRESP [facility] Last Admin: 06/07/18 07:41 Dose: Not Given Budesonide (Pulmicort Respules) 0.5 mg IH [id number] [facility] Last Admin: 06/07/18 07:41 Dose: Not Given Dextrose (Dextrose 50% Inj) 0 ml IV STAT PRN; Protocol PRN Reason: Hypoglycemia Protocol Diltiazem HCl (Cardizem) 30 mg PO BID [facility] Last Admin: 06/06/18 18:06 Dose: 30 mg Folic Acid (Folic Acid) 1 mg PO DAILY [facility] Last Admin: 06/06/18 09:18 Dose: 1 mg Furosemide (Lasix) 40 mg IVP Q12 [facility] Last Admin: 06/06/18 21:52 Dose: 40 mg Gabapentin (Neurontin) 300 mg PO BID [facility]; Protocol Last Admin: 06/06/18 18:05 Dose: 300 mg Dextrose (Dextrose 5% In Water 1000 Ml) 1,000 mls @ 0 mls/hr IV .Q0M PRN; Protocol PRN Reason: Hypoglycemia Protocol Iron Sucrose 200 mg/ Sodium (Chloride) 110 mls @ 110 mls/hr IVPB ONCE [facility] Stop: 06/11/18 08:16 Last Admin: 06/06/18 09:18 Dose: 110 mls/hr Milrinone Lactate/Dextrose (Primacor 20mg/100ml D5w) 100 mls @ 13.911 mls/hr IV .Q7H12M PRN; Protocol PRN Reason: TITRATE PER MD ORDER Stop: 06/08/18 07:00 Last Admin: 06/07/18 01:49 Dose: 0.375 mcg/kg/min, 13.911 mls/hr Insulin Detemir (Levemir) 20 unit SC [facility] Last Admin: 06/06/18 21:47 Dose: 20 units Insulin Human Lispro (Humalog Med) 0 units SC [facility]; Protocol Last Admin: 06/06/18 21:53 Dose: Not Given Insulin Human Lispro (Humalog) 6 units SC [facility] Last Admin: 06/06/18 18:39 Dose: Not Given Lisinopril (Zestril) 2.5 mg PO DAILY [facility] Last Admin: 06/06/18 09:18 Dose: 2.5 mg Lorazepam (Ativan) 1 mg PO BID PRN; Protocol PRN Reason: Anxiety Last Admin: 06/06/18 13:24 Dose: 1 mg Magnesium Oxide (Mag-Ox) 400 mg PO TID [facility] Last Admin: 06/06/18 18:06 Dose: 400 mg Montelukast Sodium (Singulair) 10 mg PO [facility] Last Admin: 06/06/18 21:46 Dose: 10 mg Oxycodone/Acetaminophen (Percocet 10/325 Mg Tab) 1 tab PO Q6H PRN PRN Reason: Pain, severe (8-10) Last Admin: 06/06/18 21:45 Dose: 1 tab Pantoprazole Sodium (Protonix Ec Tab) 40 mg PO [facility] Last Admin: 06/06/18 21:47 Dose: 40 mg Ropinirole HCl (Requip) 0.5 mg PO [facility] Last Admin: 06/06/18 21:46 Dose: 0.5 mg Spironolactone (Aldactone) 25 mg PO BID [facility] Last Admin: 06/06/18 18:06 Dose: 25 mg Trazodone HCl (Desyrel) 150 mg PO HS [facility] Last Admin: 06/06/18 21:46 Dose: 150 mg Warfarin Sodium 7.5 mg/ (Warfarin Sodium 1 mg) 8.5 mg PO 1800 [facility] Last Admin: 06/06/18 22:22 Dose: Not Given - Labs Labs: 06/07/18 06:00 06/07/18 06:00 PT 27.1 SECONDS (9.4-12.5) H 06/07/18 06:00 INR 2.40 06/07/18 06:00 APTT 30.2 Seconds (26.9-38.3) 06/04/18 16:15 - Constitutional Appears: Non-toxic, No Acute Distress - Head Exam Head Exam: NORMAL INSPECTION, NORMOCEPHALIC - Eye Exam Eye Exam: Normal appearance Pupil Exam: NORMAL ACCOMODATION - ENT Exam ENT Exam: Mucous Membranes Moist, Normal Exam - Respiratory Exam Respiratory Exam: Decreased Breath Sounds, Clear to Ausculation Bilateral, NORMAL BREATHING PATTERN - Cardiovascular Exam Cardiovascular Exam: +S1, +S2 Additional comments: AICD/PPM V- pacing at 70's - GI/Abdominal Exam GI & Abdominal Exam: Soft, Normal Bowel Sounds - Extremities Exam Extremities Exam: Full ROM Additional comments: 2+edema - Neurological Exam Neurological Exam: Alert, Awake, Oriented x3 - Psychiatric Exam Psychiatric exam: Normal Affect, Normal Mood - Skin Skin Exam: Dry, Normal Color, Warm Assessment and Plan - Assessment and Plan (Free Text) Assessment: A 57 year old male who came in to the ER due to complaining of shortness of breath for the past 3 days prior to admission. He also claimed that he fell after loosing his balance and hit his right chest, hip, and knee on coffee table. History of chronic systolic congestive heart failure, COPD on home oxygen, obesity, obstructive sleep apnea, diabetes,depression, anxiety, GERD, history of fall, atrial fibrillation on Coumadin, history of DVT, Gastric bypass, PVD, post angioplasty and drug eluding stent placement in the left tibioperoneal trunk, [place] [facility] [place] Cardiac cath done on 10/2014 showed normal coronaries. Echo done on 05/06/18 showed LVEF 36%, severely impaired systolic function,RV is dialted and severely hypokinetic. Chest X ray showed mild vascular congestion, cardiomegaly. Exacerbation of acute on chronic systolic congestive heart failure. Continue on diuretics. Chest pain muskuloskeletal in nature due to fall. Right hip X ray showed right hip prosthesis, the longer screw through the acetabular component extends through the cortex of the iliac bone. Knee and rib X ray-unremarkable. Seen by Dr. Greg harrington and no need of surgical intervention. Primacor started yesterday for optimal management of CHF. continue Primacor for the next 24 hours and will discontinue tomorrow. Discharge planning, Physical therapy. Plan: Denies shortness of breath, complaining of tolerable right hip pain Cardiac status stable Had episode of 12-14 beats of Ventricular tachycardia last night patient asymptomatic, patient has AICD Continue Primacor for the next 24 hours, will discontinue tomorrow Heart rate controlled Blood pressure controlled On Cardizem 30 mg BID,Lasix 60 mg IV every 12 hours, Lisinopril 2.5 mg daily,Zaroxylyn 5 mg daily,Aldactone 25 mg BID Coumadin 8.5 mg daily Continue current treatment Continue current medications Glucose control No surgical intervention for right hip per Dr. Capellan Discharge planning Physical therapy Will follow up Plan and treatment discussed with Dr. Rajan
[2018-06-07] MEDS: Insulin Lispro (humaLOG) MEDIUM Coverage SC SCH ×4 (09:01→21:15)
[2018-06-07] MEDS: Insulin Lispro 1 UNITS/0.01 ML SC SCH ×3 (09:05→17:24)
--- NOTE | 2018-06-07 09:13 | CP.PCM.PN ---
<Kasie Fernandez - Last Filed: 06/07/18 10:52> Subjective - Date & Time of Evaluation Date of Evaluation: 06/07/18 Time of Evaluation: 06:50 - Subjective Subjective: IM Resident progress note for Dr. Villagomez's service Patient with 14 beats v-tach overnight. Patient's Bp was normal and patient had no symptoms. Patient states the shortness of breath and lower extremity edema has continued to improve. Denies fever or chills. Objective - Vital Signs/Intake and Output Vital Signs (last 24 hours): Temp Pulse Resp BP Pulse Ox 98 F 70 20 105/65 95 06/07/18 06:10 06/07/18 06:10 06/07/18 06:10 06/07/18 06:10 06/06/18 19:45 Intake and Output: 06/07/18 06/07/18 06:59 18:59 Intake Total 788 Output Total 1100 Balance -312 - Medications Medications: Current Medications Albuterol/Ipratropium (Duoneb 3 Mg/0.5 Mg (3 Ml) Ud) 3 ml IH TIDRESP [facility] Last Admin: 06/07/18 07:41 Dose: Not Given Budesonide (Pulmicort Respules) 0.5 mg IH [id number] [facility] Last Admin: 06/07/18 07:41 Dose: Not Given Dextrose (Dextrose 50% Inj) 0 ml IV STAT PRN; Protocol PRN Reason: Hypoglycemia Protocol Diltiazem HCl (Cardizem) 30 mg PO BID [facility] Last Admin: 06/06/18 18:06 Dose: 30 mg Folic Acid (Folic Acid) 1 mg PO DAILY [facility] Last Admin: 06/06/18 09:18 Dose: 1 mg Furosemide (Lasix) 40 mg IVP Q12 [facility] Stop: 06/07/18 23:59 Last Admin: 06/06/18 21:52 Dose: 40 mg Furosemide (Lasix) 40 mg PO 0800,1400 [facility] Gabapentin (Neurontin) 300 mg PO BID [facility]; Protocol Last Admin: 06/06/18 18:05 Dose: 300 mg Dextrose (Dextrose 5% In Water 1000 Ml) 1,000 mls @ 0 mls/hr IV .Q0M PRN; Protocol PRN Reason: Hypoglycemia Protocol Milrinone Lactate/Dextrose (Primacor 20mg/100ml D5w) 100 mls @ 13.911 mls/hr IV .Q7H12M PRN; Protocol PRN Reason: TITRATE PER MD ORDER Stop: 06/08/18 07:00 Last Admin: 06/07/18 01:49 Dose: 0.375 mcg/kg/min, 13.911 mls/hr Iron Sucrose 200 mg/ Sodium (Chloride) 110 mls @ 110 mls/hr IVPB DAILY [facility] Stop: 06/11/18 08:16 Insulin Detemir (Levemir) 20 unit SC HS [facility] Last Admin: 06/06/18 21:47 Dose: 20 units Insulin Human Lispro (Humalog Med) 0 units SC ACHS [facility]; Protocol Last Admin: 06/07/18 09:01 Dose: 3 unit Insulin Human Lispro (Humalog) 6 units SC AC [facility] Last Admin: 06/07/18 09:05 Dose: 6 units Lisinopril (Zestril) 2.5 mg PO DAILY [facility] Last Admin: 06/06/18 09:18 Dose: 2.5 mg Lorazepam (Ativan) 1 mg PO BID PRN; Protocol PRN Reason: Anxiety Last Admin: 06/06/18 13:24 Dose: 1 mg Magnesium Oxide (Mag-Ox) 400 mg PO TID [facility] Last Admin: 06/06/18 18:06 Dose: 400 mg Montelukast Sodium (Singulair) [address] [facility] Last Admin: 06/06/18 21:46 Dose: 10 mg Oxycodone/Acetaminophen (Percocet 10/325 Mg Tab) 1 tab PO Q6H PRN PRN Reason: Pain, severe (8-10) Last Admin: 06/06/18 21:45 Dose: 1 tab Pantoprazole Sodium (Protonix Ec Tab) [address] [facility] Last Admin: 06/06/18 21:47 Dose: 40 mg Ropinirole HCl (Requip) 0.[address] [facility] Last Admin: 06/06/18 21:46 Dose: 0.5 mg Spironolactone (Aldactone) 25 mg PO BID [facility] Last Admin: 06/06/18 18:06 Dose: 25 mg Trazodone HCl (Desyrel) [address] [facility] Last Admin: 06/06/18 21:46 Dose: 150 mg Warfarin Sodium 7.5 mg/ (Warfarin Sodium 1 mg) 8.5 mg PO 1800 [facility] Last Admin: 06/06/18 22:22 Dose: Not Given - Labs Labs: 06/07/18 06:00 06/07/18 06:00 PT 27.1 SECONDS (9.4-12.5) H 06/07/18 06:00 INR 2.40 06/07/18 06:00 APTT 30.2 Seconds (26.9-38.3) 06/04/18 16:15 - Constitutional Appears: No Acute Distress, Chronically Ill - Head Exam Head Exam: ATRAUMATIC, NORMAL INSPECTION, NORMOCEPHALIC - Eye Exam Eye Exam: Normal appearance - Neck Exam Neck Exam: Normal Inspection - Respiratory Exam Respiratory Exam: Clear to Ausculation Bilateral, NORMAL BREATHING PATTERN. absent: Chest Wall Tenderness, Prolonged Expiratory Phase, Rales, Rhonchi, Wheezes, Respiratory Distress, Stridor - Cardiovascular Exam Cardiovascular Exam: Irregular Rhythm, +S1, +S2, Murmur. absent: Bradycardia, Tachycardia, Clicks, Diastolic murmur, Gallop, REGULAR RHYTHM, JVD, RRR, Rubs - GI/Abdominal Exam GI & Abdominal Exam: Soft, Normal Bowel Sounds. absent: Distended, Firm, Guarding, Rigid, Tenderness, Hypoactive Bowel Sounds, Pulsatile Mass, Rebound - Extremities Exam Extremities Exam: Pedal Edema (+3), Tenderness - Back Exam Back Exam: NORMAL INSPECTION - Neurological Exam Neurological Exam: Alert, Awake, Oriented x3 - Psychiatric Exam Psychiatric exam: Normal Affect, Normal Mood - Skin Skin Exam: Dry, Normal Color, Warm Assessment and Plan - Assessment and Plan (Free Text) Assessment: 1) CHF exacerbation 2) Subtherapeutic INR- resolved 3) Hypomagnesemia- resolved 4) S/p mechanical fall 5) DORITA likely from diuresis 6) Right hip pain with h/o prosthetic hip 7) Bilateral chronic venous insufficiency 8) Chronic normocytic anemia 9) h/o COPD of home O2, 10) Ischemic cardiomyopathy s/p permanent pacemaker and AICD 11) LVEF on 36% 12) CAD s/p CABG 13) WESLY on cpap 14) IDDM2 15) AFIB on Coumadin- rate controlled 16) H/o DVT on Coumadin 17) Chronic back pain 18) Diabetic neuropathy 19) Anxiety 20) Sleep related movement disorder 21) Nonsustained v tach Plan: Patient with negative fluid balance. Will continue with Lasix 40 q12 ivp as tolerated. Patient is started on milrinone drip. Cardiology is following. For the non sustained v-tach, electrolytes are normal, will check TSH. Patient has permanent pacemaker. Creatinine bumped to 1.5, will continue to monitor and repeat lab in the morning. Continue with I&O and daily weight. Continue on Heart healthy and 2 gram sodium diet. For lower extremity edema, DVT ruled out in March, will continue compression socks and leg elevation. will continue Coumadin 8.5 mg daily. For anemia, s/p IM vitamin b12, continue iron and folic aicd. Patient will need colonoscopy as outpatient. Continue with Duoneb, pulmocort and singulair for copd. For WESLY on cpap at night. [employer] following. Cardizem po for afib. Gabapentin for neuropathy. Levemir 20 hs, humalog 6 sc ac and insulin sliding scale for DM. Patient is on Ativan prn for anxiety, and rospinirol. on aldactone, and lisinopril for chf. On PO mag 400 bid for hypomagnesemia. Continue with Percocet prn for pain. For mechanical fall, CT of the right hip with no fractures,or dislocation. No revision of the right hip needed as per Orthopedic, will continue with PT. Patient seen, examined and case discussed with Dr. Villagomez. <Axel Villagomez S - Last Filed: 06/07/18 12:19> Objective - Vital Signs/Intake and Output Vital Signs (last 24 hours): Temp Pulse Resp BP Pulse Ox 98 F 70 20 103/66 95 06/07/18 06:10 06/07/18 10:40 06/07/18 06:10 06/07/18 10:40 06/06/18 19:45 Intake and Output: 06/07/18 06/07/18 06:59 18:59 Intake Total 788 100 Output Total 1100 Balance -312 100 - Medications Medications: Current Medications Albuterol/Ipratropium (Duoneb 3 Mg/0.5 Mg (3 Ml) Ud) 3 ml IH TIDRESP [facility] Last Admin: 06/07/18 07:41 Dose: Not Given Budesonide (Pulmicort Respules) 0.5 mg IH [id number] [facility] Last Admin: 06/07/18 07:41 Dose: Not Given Dextrose (Dextrose 50% Inj) 0 ml IV STAT PRN; Protocol PRN Reason: Hypoglycemia Protocol Diltiazem HCl (Cardizem) 30 mg PO BID [facility] Last Admin: 06/07/18 10:38 Dose: 30 mg Folic Acid (Folic Acid) 1 mg PO DAILY [facility] Last Admin: 06/07/18 10:39 Dose: 1 mg Furosemide (Lasix) 40 mg IVP Q12 [facility] Stop: 06/07/18 23:59 Last Admin: 06/07/18 10:37 Dose: 40 mg Furosemide (Lasix) 40 mg PO 0800,1400 [facility] Gabapentin (Neurontin) 300 mg PO BID [facility]; Protocol Last Admin: 06/07/18 10:39 Dose: 300 mg Dextrose (Dextrose 5% In Water 1000 Ml) 1,000 mls @ 0 mls/hr IV .Q0M PRN; Protocol PRN Reason: Hypoglycemia Protocol Milrinone Lactate/Dextrose (Primacor 20mg/100ml D5w) 100 mls @ 13.911 mls/hr IV .Q7H12M PRN; Protocol PRN Reason: TITRATE PER MD ORDER Stop: 06/08/18 07:00 Last Admin: 06/07/18 10:40 Dose: 0.375 mcg/kg/min, 13.911 mls/hr Iron Sucrose 200 mg/ Sodium (Chloride) 110 mls @ 110 mls/hr IVPB DAILY [facility] Stop: 06/11/18 08:16 Insulin Detemir (Levemir) 20 unit SC HS [facility] Last Admin: 06/06/18 21:47 Dose: 20 units Insulin Human Lispro (Humalog Med) 0 units SC ACHS [facility]; Protocol Last Admin: 06/07/18 09:01 Dose: 3 unit Insulin Human Lispro (Humalog) 6 units SC AC [facility] Last Admin: 06/07/18 09:05 Dose: 6 units Lisinopril (Zestril) 2.5 mg PO DAILY [facility] Last Admin: 06/07/18 10:39 Dose: 2.5 mg Lorazepam (Ativan) 1 mg PO BID PRN; Protocol PRN Reason: Anxiety Last Admin: 06/07/18 10:39 Dose: 1 mg Magnesium Oxide (Mag-Ox) 400 mg PO TID [facility] Last Admin: 06/07/18 10:38 Dose: 400 mg Montelukast Sodium (Singulair) 10 mg PO HS [facility] Last Admin: 06/06/18 21:46 Dose: 10 mg Oxycodone/Acetaminophen (Percocet 10/325 Mg Tab) 1 tab PO Q6H PRN PRN Reason: Pain, severe (8-10) Last Admin: 06/06/18 21:45 Dose: 1 tab Pantoprazole Sodium (Protonix Ec Tab) 40 mg PO HS [facility] Last Admin: 06/06/18 21:47 Dose: 40 mg Ropinirole HCl (Requip) 0.5 mg PO HS [facility] Last Admin: 06/06/18 21:46 Dose: 0.5 mg Spironolactone (Aldactone) 25 mg PO BID [facility] Last Admin: 06/07/18 10:39 Dose: 25 mg Trazodone HCl (Desyrel) 150 mg PO HS [facility] Last Admin: 06/06/18 21:46 Dose: 150 mg Warfarin Sodium 7.5 mg/ (Warfarin Sodium 1 mg) 8.5 mg PO 1800 [facility] Last Admin: 06/06/18 22:22 Dose: Not Given - Labs Labs: 06/07/18 06:00 06/07/18 06:00 PT 27.1 SECONDS (9.4-12.5) H 06/07/18 06:00 INR 2.40 06/07/18 06:00 APTT 30.2 Seconds (26.9-38.3) 06/04/18 16:15 Assessment and Plan - Assessment and Plan (Free Text) Plan: Pt seen and examined by me. I have reviewed the note of the emergency medical service coordinator and I agree with it. I have discussed the assessment and plan with the resident. I have reviewed the medications and the last labs.
[2018-06-07] MEDS: Magnesium Oxide 400 mg Tab UD PO SCH ×3 (10:38→19:24)
--- NOTE | 2018-06-07 11:18 | PN ---
DATE: 06/07/2018 PULMONARY PROGRESS NOTE REFERRING PHYSICIAN: Dr. Villagomez. SUBJECTIVE: The patient is seen, sitting in armchair in room. Reports feeling well this morning. Did not use CPAP machine last night. No headache, rhinitis, cough, shortness of breath, chest pain, abdominal pain, nausea, vomiting, diarrhea or leg pain reported. OBJECTIVE: GENERAL: No acute distress. VITAL SIGNS: Blood pressure 105/65, pulse 70 and temperature 98. HEENT: Moist mucous membranes. Mallampati score of 4. Crowded airway. NECK: Supple. No JVD. Short and thick. LUNGS: Fair airflow bilaterally. CARDIOVASCULAR: S1 and S2. ABDOMEN: Soft and nontender. No distention. EXTREMITIES: Trace bilateral lower extremity edema. NEUROLOGIC: Awake, alert and verbal. Follows commands. MEDICATIONS: Reviewed. DuoNeb 3 mL inhalation 3 times a day, Pulmicort 0.5 mg inhalation every 12 hours, Cardizem 30 mg twice a day, folic acid 1 mg daily, Lasix 40 mg every 12 hours, Lasix 40 mg p.o. twice a day to start on the 06/08/2018, Neurontin 300 mg twice a day, Levemir 20 units subcutaneously at bedtime, Humalog sliding scale a.c. and at bedtime, Humalog 6 units subcutaneous a.c., iron sucrose 200 mg IV piggyback daily, lisinopril 2.5 mg daily, Ativan 1 mg twice a day p.r.n., magnesium oxide 400 mg 3 times a day, Primacor drip, Singulair 10 mg at bedtime, Percocet 10/325 mg one tab every 6 hours p.r.n. for severe pain, Protonix 40 mg at bedtime, Requip 0.5 mg at bedtime, Aldactone 25 mg twice a day, trazodone 150 mg at bedtime and Coumadin 8.5 mg daily. LABORATORY DATA: Reviewed. WBC 7.4, RBC 4.57, hemoglobin 11.5, hematocrit 32.4 and platelets 214. PT 27.1, and INR 2.40. Sodium 136, potassium 3.9, chloride 95, carbon dioxide 30, anion gap 15, BUN 28, creatinine 1.5, GFR 48, POC glucose 200, random glucose 163, calcium 9, phosphorus 4, magnesium 1.8, total bilirubin 0.4, AST 17, ALT 8, alkaline phosphatase 79, total protein 6.4, albumin 3.5, globulin 2.9 and albumin-globulin ratio 1.2. IMPRESSION AND PLAN: Congestive heart failure, status post mechanical fall, anemia, chronic obstructive pulmonary disease, status post pacemaker and automated implantable cardioverter defibrillator placement, cardiomyopathy, coronary artery disease, status post coronary artery bypass graft, sleep apnea, diabetes mellitus, atrial fibrillation, history of deep venous thrombosis, chronic back pain, diabetic neuropathy, anxiety and gastroesophageal reflux disease. Pulmonary point of view; continue to encourage continuous positive airway pressure use at bedtime, sleep apnea precaution, head of bed elevated at 45 degrees. Continue inhaled bronchodilators, leukotriene inhibitors and fall precaution. Currently on anticoagulation therapy. Gastric prophylaxis. Continue Cardiology followup. Avoid nocturnal sedation. Continue diuretics, afterload reducers. We recommend this patient have full pulmonary function test as outpatient to evaluate chronic lung disease. We will followup on sleep study that the patient did has outpatient. The patient will need nasal pillow as he complaints of feeling claustrophobic with nasal mask. Orthopedic consult appreciated. The patient with well fixed right total hip with deep contusion from patient's fall. This patient was seen and examined with Dr. Godinez. Discussed assessment and plan as described above. This patient was seen and examined with Francisco Yates, nurse practitioner. Discussed assessment and plan as described above. Thank you for this consult and we will follow with you. Francisco Yates APN Tia Godinez MD [facility]
[2018-06-07] MEDS: Oxycodone/Acetaminophen 10/325 mg Tab PO PRN (12:39)
--- NOTE | 2018-06-07 12:52 | CP.PCM.PCO ---
Physician Communication Note - Physician Communication Note Physician Communication Note: pt. accepted to TCU per Misti,insurance auth is pending
--- NOTE | 2018-06-07 16:27 | PN ---
DATE: 06/07/2018 SUBJECTIVE: The patient was seen and examined. I do agree with a note of medical sales associate. I was involved in the plan of care. The patient states his shortness of breath is improving from acute CHF. He is on Lasix. The patient has been started on milrinone drip by Cardiology. He has acute kidney injury because of the diuresis that he was placed and the patient continues to have lower extremity edema. He is able to ambulate but does get shortness of breath. He has a history of probably obstructive sleep apnea and does use CPAP machine at night. He is going to continue with his Coumadin for his atrial fibrillation. He is on Ativan for anxiety. He is going to continue the patient is on Aldactone for CHF as well. He is on lisinopril for CHF and hypertension. He is currently on telemetry monitoring. He is on Cardizem for his atrial fibrillation. He is going to continue with insulin for his diabetes. His sugars have been mildly elevated, but under control. He is going to continue with Singulair. His creatinine has been stable at 1.5. Axel Villagomez MD
[2018-06-07] MEDS: WARFARIN PO SCH (17:31)
[2018-06-07] MEDS: Pantoprazole 40 mg EC Tab PO SCH (21:10)
[2018-06-07] MEDS: Insulin Detemir 100 units/ml Vial (Levemir) SC SCH (21:21)
[2018-06-08] MEDS: Milrinone 20mg/100ml D5W 100 ML IV PRN (02:21)
--- NOTE | 2018-06-08 07:07 | CP.PCM.PN ---
Subjective - Date & Time of Evaluation Date of Evaluation: 06/08/18 Time of Evaluation: 06:45 - Subjective Subjective: Awake, out of bed to chair, feels okay, denies shortness of breath Reason for consultation and follow up: Cardiac evaluation of shortness of breath, admitted due to fall hitting his right hip and right chest and knee, history of cardiomyopathy, AICD, non-obstructive coronary artery disease, COPD Seen and examined by me and Dr. Rajan Objective - Vital Signs/Intake and Output Vital Signs (last 24 hours): Temp Pulse Resp BP Pulse Ox 97.5 F L 71 20 118/65 99 06/08/18 05:43 06/08/18 05:43 06/08/18 05:43 06/08/18 05:43 06/08/18 05:43 Intake and Output: 06/08/18 06/08/18 06:59 18:59 Intake Total 760 Output Total 2200 Balance -1440 - Medications Medications: Current Medications Albuterol/Ipratropium (Duoneb 3 Mg/0.5 Mg (3 Ml) Ud) 3 ml IH TIDRESP [facility] Last Admin: 06/07/18 20:35 Dose: Not Given Budesonide (Pulmicort Respules) 0.5 mg IH [id number] [facility] Last Admin: 06/07/18 20:35 Dose: Not Given Dextrose (Dextrose 50% Inj) 0 ml IV STAT PRN; Protocol PRN Reason: Hypoglycemia Protocol Diltiazem HCl (Cardizem) 30 mg PO BID [facility] Last Admin: 06/07/18 17:25 Dose: 30 mg Folic Acid (Folic Acid) 1 mg PO DAILY [facility] Last Admin: 06/07/18 10:39 Dose: 1 mg Furosemide (Lasix) 40 mg PO 0800,1400 [facility] Gabapentin (Neurontin) 300 mg PO BID [facility]; Protocol Last Admin: 06/07/18 17:30 Dose: 300 mg Dextrose (Dextrose 5% In Water 1000 Ml) 1,000 mls @ 0 mls/hr IV .Q0M PRN; Protocol PRN Reason: Hypoglycemia Protocol Iron Sucrose 200 mg/ Sodium (Chloride) 110 mls @ 110 mls/hr IVPB DAILY [facility] Stop: 06/11/18 08:16 Last Admin: 06/07/18 15:52 Dose: 110 mls/hr Insulin Detemir (Levemir) 20 unit SC HS [facility] Last Admin: 06/07/18 21:21 Dose: 20 units Insulin Human Lispro (Humalog Med) 0 units SC ACHS [facility]; Protocol Last Admin: 06/07/18 21:15 Dose: Not Given Insulin Human Lispro (Humalog) 6 units SC AC [facility] Last Admin: 06/07/18 17:24 Dose: 6 units Lisinopril (Zestril) 2.5 mg PO DAILY [facility] Last Admin: 06/07/18 10:39 Dose: 2.5 mg Lorazepam (Ativan) 1 mg PO BID PRN; Protocol PRN Reason: Anxiety Last Admin: 06/07/18 21:21 Dose: 1 mg Magnesium Oxide (Mag-Ox) 400 mg PO TID [facility] Last Admin: 06/07/18 19:24 Dose: 400 mg Montelukast Sodium (Singulair) 10 mg PO [facility] Last Admin: 06/07/18 21:10 Dose: 10 mg Oxycodone/Acetaminophen (Percocet 10/325 Mg Tab) 1 tab PO Q6H PRN PRN Reason: Pain, severe (8-10) Last Admin: 06/07/18 12:39 Dose: 1 tab Pantoprazole Sodium (Protonix Ec Tab) 40 mg PO [facility] Last Admin: 06/07/18 21:10 Dose: 40 mg Ropinirole HCl (Requip) 0.5 mg PO [facility] Last Admin: 06/07/18 21:10 Dose: 0.5 mg Spironolactone (Aldactone) 25 mg PO BID [facility] Last Admin: 06/07/18 17:25 Dose: 25 mg Trazodone HCl (Desyrel) 150 mg PO [facility] Last Admin: 06/07/18 21:10 Dose: 150 mg Warfarin Sodium 7.5 mg/ (Warfarin Sodium 1 mg) 8.5 mg PO 1800 [facility] Last Admin: 06/07/18 17:31 Dose: 8.5 mg - Labs Labs: 06/07/18 06:00 06/07/18 06:00 PT 27.1 SECONDS (9.4-12.5) H 06/07/18 06:00 INR 2.40 06/07/18 06:00 APTT 30.2 Seconds (26.9-38.3) 06/04/18 16:15 - Constitutional Appears: Non-toxic, No Acute Distress - Head Exam Head Exam: NORMAL INSPECTION, NORMOCEPHALIC - Eye Exam Eye Exam: Normal appearance Pupil Exam: NORMAL ACCOMODATION - ENT Exam ENT Exam: Mucous Membranes Moist, Normal Exam - Respiratory Exam Respiratory Exam: Decreased Breath Sounds, NORMAL BREATHING PATTERN - Cardiovascular Exam Cardiovascular Exam: +S1, +S2 Additional comments: AICD/PPM - GI/Abdominal Exam GI & Abdominal Exam: Soft, Normal Bowel Sounds - Extremities Exam Extremities Exam: Full ROM Additional comments: 1-2+edema - Neurological Exam Neurological Exam: Alert, Awake, Oriented x3 - Psychiatric Exam Psychiatric exam: Normal Affect, Normal Mood - Skin Skin Exam: Dry, Normal Color, Warm Assessment and Plan - Assessment and Plan (Free Text) Assessment: A 57 year old male who came in to the ER due to complaining of shortness of breath for the past 3 days prior to admission. He also claimed that he fell after loosing his balance and hit his right chest, hip, and knee on coffee table. History of chronic systolic congestive heart failure, COPD on home oxygen, obesity, obstructive sleep apnea, diabetes,depression, anxiety, GERD, history of fall, atrial fibrillation on Coumadin, history of DVT, Gastric bypass, PVD, post angioplasty and drug eluding stent placement in the left tibioperoneal trunk, recent left hip replacement at [facility] [place]. Cardiac cath done on 10/2014 showed normal coronaries. Echo done on 05/06/18 showed LVEF 36%, severely impaired systolic function,RV is dialted and severely hypokinetic. Chest X ray showed mild vascular congestion, cardiomegaly. Exacerbation of acute on chronic systolic congestive heart failure. Continue on diuretics. Chest pain muskuloskeletal in nature due to fall. Right hip X ray showed right hip prosthesis, the longer screw through the acetabular component extends through the cortex of the iliac bone. Knee and rib X ray-unremarkable. Seen by Dr. Capellan and no need of surgical intervention. discontinue Primacor today. Discharge planning, Physical therapy. Accepted to TCU for reconditioning and physical therapy. Discontinue telemetry. Plan: Clinically stable Denies shortness of breath Cardiac status stable Discontinue Primacor today Heart rate controlled Blood pressure controlled On Cardizem 30 mg BID,Lasix 60 mg IV every 12 hours, Lisinopril 2.5 mg daily,Zaroxylyn 5 mg daily,Aldactone 25 mg BID Coumadin 8.5 mg daily Continue current treatment Continue current medications Glucose control Discharge planning,TCU for reconditioning and physical therapy Discontinue telemetry Will follow up Plan and treatment discussed with Dr. Rajan
[2018-06-08] MEDS: Albuterol-Ipratrop 3 mg / 0.5 (3 ml) UD IH SCH ×3 (07:48→19:25)
[2018-06-08] MEDS: Budesonide 0.5 mg/2 ml Inhal Susp UD IH SCH ×2 (07:48→19:25)
[2018-06-08 08:03] LABS: BASO # 0.04 K/mm3 (0.0-2.0); BASO % 0.5 % (0.0-3.0); EOS # 0.1 (0.0-0.7); EOS % 1.6 % (1.5-5.0); LYMPH # 0.9 (1.2-3.4); LYMPH % 11.7 % (22.0-35.0); MEAN CELL VOLUME 81.5 fl (80.0-105.0); MEAN CORPUSCULAR HEMOGLOBIN 24.8 pg (25.0-35.0); MEAN CORPUSCULAR HGB CONC 30.4 g/dl (31.0-37.0); MEAN PLATELET VOLUME 9.7 fl (7.0-11.0); MONO # 0.8 (0.1-0.6); MONO % 10.6 % (1.0-6.0); RBC 4.44 10^6/uL (3.5-6.1); RED CELL DISTRIBUTION WIDTH 16.9 % (11.5-14.5); WHITE BLOOD COUNT 7.3 10^3/uL (4.5-11.0)
[2018-06-08] MEDS: Insulin Lispro (humaLOG) MEDIUM Coverage SC SCH ×4 (08:14→21:53)
[2018-06-08] MEDS: Insulin Lispro 1 UNITS/0.01 ML SC SCH ×3 (08:14→17:36)
[2018-06-08] MEDS: Magnesium Oxide 400 mg Tab UD PO SCH ×3 (09:53→17:37)
--- NOTE | 2018-06-08 09:59 | PN ---
DATE: 06/08/2018 PULMONARY PROGRESS NOTE REFERRING PHYSICIAN: Dr.. Villagomez. SUBJECTIVE: The patient was seen sitting in arm chair in room, no acute distress. No overnight events reported. Did not wear CPAP machine last night. Primacor drip was discontinued today by Cardiology. No headache, rhinitis, cough, shortness of breath, chest pain, abdominal pain, nausea, vomiting, diarrhea, leg pain reported. OBJECTIVE: VITAL SIGNS: Blood pressure 118/65, pulse 71, temperature 97.5, oxygen saturation 99. GENERAL: No acute distress. HEENT: Moist mucous membranes. Mallampati score 4. Crowded airway. NECK: Supple. No JVD. Short and thick. LUNGS: Fair airflow bilaterally. CARDIOVASCULAR: S1 and S2. ABDOMEN: Soft and nontender. No distention. EXTREMITIES: Diffuse bilateral lower extremity edema. NEUROLOGIC: Awake, alert, verbal, and follows commands. MEDICATIONS: Reviewed. DuoNeb 3 mL inhalation three times a day, Pulmicort 0.5 mg inhalation every 12 hours, Cardizem 30 mg twice a day, folic acid 1 mg daily, Lasix 40 mg twice a day, Neurontin 300 mg twice a day, Levemir 20 units subcu h.s., Humalog sliding scale a.c. and h.s., Humalog 6 units a.c., iron sucrose 200 mg daily, lisinopril 2.5 mg daily, Ativan 1 mg twice a day p.r.n., magnesium oxide 400 mg three times a day, Singulair 10 mg at bedtime, Percocet 10/325 mg one tab every 6 hours p.r.n. severe pain, Protonix 40 mg at bedtime, Requip 0.5 mg at bedtime, Aldactone 25 mg twice a day, trazodone 150 mg at bedtime, Coumadin 8.5 mg daily. LABORATORY DATA: Reviewed. WBC is 7.3, RBC 4.44, hemoglobin 11, hematocrit 36.2, platelets 212. Sodium 134, potassium 4.5, chloride 95, carbon dioxide 34, anion gap of 11, BUN 31, creatinine 1.5, GFR 48, POC glucose 224, random glucose 212, calcium 9, phosphorous 3.5, magnesium 2. IMPRESSION AND PLAN: Congestive heart failure status post mechanical fall, anemia, chronic obstructive pulmonary disease status post pacemaker and automatic implantable cardioverter-defibrillator placement, cardiomyopathy, coronary artery disease status post coronary artery bypass graft, diabetes mellitus, atrial fibrillation, sleep apnea syndrome, history of deep venous thrombosis, chronic back pain, diabetic neuropathy, anxiety, gastroesophageal reflex disease. Pulmonary point of view, continued to encourage continuous positive airway pressure use at bedtime, sleep apnea precaution, head of bed elevated 45 degrees. Continue inhaled bronchodilators, gastric prophylaxis, fall precautions. The patient currently on anticoagulation therapy. Continue cardiology followup. The patient is scheduled to be transferred to TCU unit for rehabilitation and reconditioning. Avoid nocturnal sedation. Continue diuretics afterload reducers. Continue compression stockings to BLE. We recommend the patient have full pulmonary function test as outpatient to evaluate chronic lung disease. We will follow up on sleep study that the patient did as outpatient. The patient will need nasal pillow as he feels claustrophobic using nasal mask or full face mask. This patient was seen and examined with Dr. Godinez. Discussed assessment and plan as described above. The patient was seen and examined with Francisco Yates, nurse practitioner. Discussed assessment and plan as described above. Thank you for this consult. We will follow with you. Francisco Yates APN Tai Godinez MD [facility]
[2018-06-08] MEDS: WARFARIN PO SCH (17:38)
[2018-06-08] MEDS: Pantoprazole 40 mg EC Tab PO SCH (21:46)
[2018-06-08] MEDS: Insulin Detemir 100 units/ml Vial (Levemir) SC SCH (21:57)
--- NOTE | 2018-06-09 00:25 | DS ---
HOSPITAL COURSE: The patient is a 57-year-old male who is coming into the hospital because of acute CHF. He was having lower extremity edema and shortness of breath. The patient also had a fall and has been having right hip pain. He had surgery is his right hip. He had a CAT scan done that she did not show any significant abnormalities. He was seen by Orthopedics and no further intervention was to be done. He was placed on a Primacor drip because of the CHF by the Cardiology. He says his breathing is better. His creatinine is stable at 1.5. He did have acute kidney injury because he was getting over diuresed and still was volume overloaded. The patient has no complaints of any chest pain. No headaches, no dizziness. He uses his CPAP machine. He is going to the Transitional Care Unit today. PHYSICAL EXAMINATION: VITAL SIGNS Temperature is 97.5, pulse is 71, blood pressure is 111/72, and respirations are 20. GENERAL: The patient is lying in bed, flat, comfortable. HEENT: No oral lesion. Anicteric sclerae. Moist mucosa. NECK: No JVD, adenopathy, or thyromegaly. CARDIOVASCULAR: S1 and S2, regular. No murmurs, rubs, or gallops. LUNGS: Clear to auscultation bilaterally. No wheeze, rales, or rhonchi. ABDOMEN: Bowel sounds are positive, soft, nontender and nondistended. EXTREMITIES: No cyanosis, clubbing or edema. LABORATORY DATA: White count of 7.3 and hemoglobin is 11. Creatinine is 1.5 ASSESSMENT: 1. Acute congestive heart failure secondary to systolic dysfunction, improving. 2. Atrial fibrillation, on Coumadin. 3. Hypomagnesemia, improved. 4. Fall. 5. Acute kidney injury, secondary to diuresis, improving. 6. Status post right hip surgery. 7. Chronic venous insufficiency. 8. Chronic obstructive pulmonary disease. 9. Ischemic cardiomyopathy, status post permanent pacemaker and automatic implantable cardioverter-defibrillator with ejection fraction of 36%. 10. Coronary artery disease status post coronary artery bypass grafting. 11. Obstructive sleep apnea on continuous positive airway pressure. 12. Diabetes type 2. 13. Deep vein thrombosis, on Coumadin. 14. Chronic back pain. 15. Diabetic neuropathy. 16. Anxiety. 17. Obstructive sleep apnea. 18. Morbid obesity with a BMI of 41. PLAN: The patient is currently comfortable. She is going to continue on Aldactone for CHF. He is on Ativan for his anxiety. He will continue Cardizem for his atrial fibrillation. The patient is on trazodone. He is going to continue with insulin lispro for his diabetes type 2. He is also on Levemir 20 units in the evening. The patient has magnesium replacement for hypomagnesemia. The patient is on gabapentin for his neuropathy. He is going to be on ropinirole for his restless leg syndrome. He is on Zestril for his CHF. CONDITION: Stable. ACTIVITIES: Increase as tolerated. DISPOSITION: Discharged to Transitional Care Unit. Axel Villagomez MD
--- NOTE | 2018-06-09 07:04 | CP.PCM.PN ---
Subjective - Date & Time of Evaluation Date of Evaluation: 06/09/18 Time of Evaluation: 06:25 - Subjective Subjective: Easily awaken, lying in bed , denies shortness of breath Reason for consultation and follow up: Cardiac evaluation of shortness of br eath, admitted due to fall hitting his right hip and right chest and knee, history of cardiomyopathy, AICD, non-obstructive coronary artery disease, COPD Seen and examined by me and Dr. Rajan Objective - Vital Signs/Intake and Output Vital Signs (last 24 hours): Temp Pulse Resp BP Pulse Ox 98.3 F 72 20 98/53 L 97 06/08/18 22:57 06/08/18 22:57 06/08/18 22:57 06/08/18 22:57 06/08/18 22:57 Intake and Output: 06/09/18 06/09/18 06:59 18:59 Intake Total 860 Balance 860 - Medications Medications: Current Medications Albuterol/Ipratropium (Duoneb 3 Mg/0.5 Mg (3 Ml) Ud) 3 ml IH TIDRESP [facility] Last Admin: 06/08/18 19:25 Dose: Not Given Budesonide (Pulmicort Respules) 0.5 mg IH [id number] [facility] Last Admin: 06/08/18 19:25 Dose: Not Given Dextrose (Dextrose 50% Inj) 0 ml IV STAT PRN; Protocol PRN Reason: Hypoglycemia Protocol Diltiazem HCl (Cardizem) 30 mg PO BID [facility] Last Admin: 06/08/18 17:37 Dose: 30 mg Folic Acid (Folic Acid) 1 mg PO DAILY [facility] Last Admin: 06/08/18 09:52 Dose: 1 mg Furosemide (Lasix) 40 mg PO 0800,1400 [facility] Last Admin: 06/08/18 14:55 Dose: Not Given Gabapentin (Neurontin) 300 mg PO BID [facility]; Protocol Last Admin: 06/08/18 17:36 Dose: 300 mg Dextrose (Dextrose 5% In Water 1000 Ml) 1,000 mls @ 0 mls/hr IV .Q0M PRN; Protocol PRN Reason: Hypoglycemia Protocol Iron Sucrose 200 mg/ Sodium (Chloride) 110 mls @ 110 mls/hr IVPB DAILY [facility] Stop: 06/11/18 08:16 Last Admin: 06/08/18 09:58 Dose: 110 mls/hr Insulin Detemir (Levemir) 20 unit SC HS [facility] Last Admin: 06/08/18 21:57 Dose: 20 units Insulin Human Lispro (Humalog Med) 0 units SC ACHS [facility]; Protocol Last Admin: 06/08/18 21:53 Dose: Not Given Insulin Human Lispro (Humalog) 6 units SC AC [facility] Last Admin: 06/08/18 17:36 Dose: 6 units Lisinopril (Zestril) 2.5 mg PO DAILY [facility] Last Admin: 06/08/18 09:53 Dose: 2.5 mg Lorazepam (Ativan) 1 mg PO BID PRN; Protocol PRN Reason: Anxiety Last Admin: 06/08/18 21:57 Dose: 1 mg Magnesium Oxide (Mag-Ox) 400 mg PO TID [facility] Last Admin: 06/08/18 17:37 Dose: 400 mg Montelukast Sodium (Singulair) 10 mg PO [facility] Last Admin: 06/08/18 21:46 Dose: 10 mg Oxycodone/Acetaminophen (Percocet 10/325 Mg Tab) 1 tab PO Q6H PRN PRN Reason: Pain, severe (8-10) Last Admin: 06/07/18 12:39 Dose: 1 tab Pantoprazole Sodium (Protonix Ec Tab) 40 mg PO [facility] Last Admin: 06/08/18 21:46 Dose: 40 mg Ropinirole HCl (Requip) 0.5 mg PO [facility] Last Admin: 06/08/18 21:45 Dose: 0.5 mg Spironolactone (Aldactone) 25 mg PO BID [facility] Last Admin: 06/08/18 17:36 Dose: 25 mg Trazodone HCl (Desyrel) 150 mg PO [facility] Last Admin: 06/08/18 21:46 Dose: 150 mg Warfarin Sodium 7.5 mg/ (Warfarin Sodium 1 mg) 8.5 mg PO 1800 [facility] Last Admin: 06/08/18 17:38 Dose: 8.5 mg - Labs Labs: 06/08/18 07:30 06/08/18 07:30 PT 27.1 SECONDS (9.4-12.5) H 06/07/18 06:00 INR 2.40 06/07/18 06:00 APTT 30.2 Seconds (26.9-38.3) 06/04/18 16:15 - Constitutional Appears: Non-toxic, No Acute Distress - Head Exam Head Exam: NORMAL INSPECTION, NORMOCEPHALIC - Eye Exam Eye Exam: Normal appearance Pupil Exam: NORMAL ACCOMODATION - ENT Exam ENT Exam: Mucous Membranes Moist, Normal Exam - Respiratory Exam Respiratory Exam: Decreased Breath Sounds, Clear to Ausculation Bilateral, NORMAL BREATHING PATTERN - Cardiovascular Exam Cardiovascular Exam: +S1, +S2 Additional comments: AICD - GI/Abdominal Exam GI & Abdominal Exam: Soft, Normal Bowel Sounds - Extremities Exam Extremities Exam: Full ROM Additional comments: 1-2+edema - Neurological Exam Neurological Exam: Alert, Awake, Oriented x3 - Psychiatric Exam Psychiatric exam: Normal Affect, Normal Mood - Skin Skin Exam: Dry, Normal Color, Warm Assessment and Plan - Assessment and Plan (Free Text) Assessment: A 57 year old male who came in to the ER due to complaining of shortness of breath for the past 3 days prior to admission. He also claimed that he fell after loosing his balance and hit his right chest, hip, and knee on coffee table. History of chronic systolic congestive heart failure, COPD on home oxygen, obesity, obstructive sleep apnea, diabetes,depression, anxiety, GERD, history of fall, atrial fibrillation on Coumadin, history of DVT, Gastric bypass, PVD, post angioplasty and drug eluding stent placement in the left t ibioperoneal trunk, recent left hip replacement at [facility]. Cardiac cath done on 10/2014 showed normal coronaries. Echo done on 05/06/18 showed LVEF 36%, severely impaired systolic function,RV is dialted and severely hypokinetic. Chest X ray showed mild vascular congestion, cardiomegaly. Exacerbation of acute on chronic systolic congestive heart failure. Continue on diuretics. Chest pain muskuloskeletal in nature due to fall. Right hip X ray showed right hip prosthesis, the longer screw through the acetabular component extends through the cortex of the iliac bone. Knee and rib X ray-unremarkable. Seen by Dr. Capellan and no need of surgical intervention. Primacor discontinued yesterday Discharge planning, Physical therapy. Accepted to TCU for reconditioning and physical therapy. Awaiting transfer.Clinically stable. Plan: Awaiting transfer to TCU Denies shortness of breath Cardiac status stable Heart rate controlled Blood pressure controlled On Cardizem 30 mg BID,Lasix 60 mg IV every 12 hours, Lisinopril 2.5 mg daily,Zaroxylyn 5 mg daily,Aldactone 25 mg BID Coumadin 8.5 mg daily Continue current treatment Continue current medications Glucose control TCU for reconditioning and physical therapy Will follow up Plan and treatment discussed with Dr. Rajan
[2018-06-09] MEDS: Budesonide 0.5 mg/2 ml Inhal Susp UD IH SCH ×2 (08:00→20:03)
[2018-06-09] MEDS: Albuterol-Ipratrop 3 mg / 0.5 (3 ml) UD IH SCH ×4 (08:00→20:03)
[2018-06-09] MEDS ORDERED: Albuterol-Ipratrop 3 mg / 0.5 (3 ml) UD IH PRN (08:28)
[2018-06-09] MEDS: Insulin Lispro (humaLOG) MEDIUM Coverage SC SCH ×4 (08:45→21:20)
[2018-06-09] MEDS: Oxycodone/Acetaminophen 10/325 mg Tab PO PRN (08:51)
--- NOTE | 2018-06-09 09:20 | PN ---
DATE: 06/09/2018 PULMONARY PROGRESS NOTE REFERRING PHYSICIAN: Dr. Villagomez. SUBJECTIVE: The patient was seen sitting in arm chair in room. No acute distress. No overnight events reported. Did not wear CPAP machine last night. He states that this morning he is having cough and feels a little congested. No headache, rhinitis, chest pain, abdominal pain, nausea, vomiting, diarrhea or leg pain reported. The patient also reports that he has been refusing nebulizer treatments. OBJECTIVE: VITAL SIGNS: Blood pressure 98/53, pulse 72, temperature 98.3 and oxygen saturation 97% on nasal cannula. GENERAL: No acute distress. HEENT: Moist mucous membranes. Mallampati score 4. Crowded airway. NECK: Supple. No JVD. Short and thick. RESPIRATORY: Fair rhonchi scattered. CARDIOVASCULAR: S1 and S2. ABDOMEN: Soft and nontender. No distention. EXTREMITIES: A 1-2+ bilateral lower extremity edema. NEUROLOGIC: Awake, alert and verbal. Following commands. MEDICATIONS: Reviewed. DuoNeb 3 mL three times a day, Pulmicort 0.5 mg inhalation every 12 hours, Cardizem 30 mg twice a day, folic acid 1 mg daily, Lasix 40 mg twice a day, Neurontin 300 mg twice a day, Levemir 20 units subcutaneous at bedtime., Humalog sliding scale a.c. and at bedtime, Humalog 6 units a.c., iron sucrose 200 mg IV piggyback daily, lisinopril 2.5 mg daily, Ativan 1 mg twice a day p.r.n., magnesium oxide 400 mg three times a day, Singulair 10 mg at bedtime, Percocet 10/325 mg every 6 hours p.r.n., Protonix 40 mg at bedtime, Requip 0.5 mg at bedtime, Aldactone 25 mg twice a day, trazodone 150 mg at bedtime and Coumadin 8.5 mg daily. LABORATORY DATA: Reviewed. POC glucose 240. IMPRESSION AND PLAN: Congestive heart failure status post mechanical fall, anemia, chronic obstructive pulmonary disease status post pacemaker and automatic implantable cardioverter-defibrillator placement, cardiomyopathy, coronary artery disease status post coronary artery bypass graft, atrial fibrillation, diabetes mellitus, sleep apnea syndrome, history of deep venous thrombosis, chronic back pain, diabetic neuropathy, anxiety and gastroesophageal reflux disease. Pulmonary point of view, continue inhaled bronchodilators, gastric prophylaxis, fall precautions and currently on anticoagulation therapy. Continue Cardiology followup. Continue to encourage continuous positive airway pressure use at bedtime, sleep apnea precaution, head of bed elevated 45 degrees. Avoid nocturnal sedation. Compression stockings to bilateral lower extremities. Educated patient not to refuse nebulizer treatment. Patient verbalized understanding. Will order Mucinex DM BID. Recommend the patient to have full pulmonary function test as outpatient. We will follow up with patient sleep study that he did as outpatient. The patient will need nasal pillow as he feels claustrophobic using nasal mask or full face mask. This patient was seen and examined with Dr. Godinez. Discussed assessment and plan as described above. The patient was seen and examined with Francisco Yates, nurse practitioner. Discussed assessment and plan as described above. Thank you for this consult. We will follow with you. Francisco Yates APN Tia Godinez MD [facility]
[2018-06-09] MEDS: Magnesium Oxide 400 mg Tab UD PO SCH ×3 (11:55→18:07)
[2018-06-09] MEDS: guaiFENesin-DM 600-30 mg ER Tab PO SCH ×2 (11:55→18:06)
[2018-06-09] MEDS: Insulin Lispro 1 UNITS/0.01 ML SC SCH ×3 (12:52→18:52)
[2018-06-09] MEDS: WARFARIN PO SCH (18:43)
--- NOTE | 2018-06-09 19:16 | PN ---
DATE: 06/09/2018 SUBJECTIVE: The patient is a 57-year-old, known to me from multiple previous admissions. The patient states when he was in [place], he fell injuring his left hip that he had replacement in February, has been having difficulty walking, was also found to have congestive heart failure and being treated for that. PHYSICAL EXAMINATION: GENERAL: Today, he is comfortable. No chest pain, no shortness of breath. VITAL SIGNS: He is afebrile. Pulse 70, respirations 20, blood pressure 100/62. LUNGS: Bilateral fair air flow. Decreased breath sounds at bases. HEART: S1 and S2 audible. Irregular rate control. ABDOMEN: Soft, obese, nontender. No rebound, no guarding. NEUROLOGIC: He is awake and alert, able to communicate. EXTREMITIES: Bilateral legs, +3 edema. LABORATORY DATA: WBC 7.3, hemoglobin 11, hematocrit 36, platelets 212. PT 27.1, INR 2.4. Chemistry: Sodium 134, potassium 4.5, chloride 93, CO2 of 34. BUN 31, creatinine 1.5, blood sugar 216. ASSESSMENT: 1. Status post fall, injuring his hip and having difficulty . 2. Chronic obstructive pulmonary disease exacerbation. 3. Congestive heart failure, acute on chronic, systolic. 4. History of pacemaker and defibrillator placement. 5. Morbid obesity. 6. Bilateral edema. 7. Cardiomyopathy. 8. Coronary artery disease. 9. Obstructive sleep apnea. 10. History of deep venous thrombosis. 11. Insulin-dependent diabetes. PLAN: The patient is currently on diltiazem 30 mg twice a day. He is on Coumadin 8.5 daily. He is on spironolactone. He is on a psychiatric medication for bipolar disorder. He is getting nebulizer treatment. Blood sugar is being monitored. I will renew his Percocet. We will follow up his chemistry, PT and INR in the a.m. Ridge Velazquez MD
[2018-06-09] MEDS: Insulin Detemir 100 units/ml Vial (Levemir) SC SCH (21:24)
[2018-06-09] MEDS: Pantoprazole 40 mg EC Tab PO SCH (21:25)
[2018-06-10 07:16] VITALS: RESP 20; TEMP 97.2
[2018-06-10 07:16] LABS: ALB/GLOB RATIO 1.3 (1.1-1.8); ALBUMIN 3.9 g/dL (3.0-4.8); ALT/SGPT 14 U/L (7-56); AST/SGOT 31 U/L (17-59); BLOOD UREA NITROGEN 30 mg/dL (7-21); CALCIUM 9.3 mg/dL (8.4-10.5); GFR NON-AFRICAN AMERICAN 52; PROTHROMBIN TIME 49.1 SECONDS (9.4-12.5)
[2018-06-10 07:21] LABS: INR 4.35
--- NOTE | 2018-06-10 07:41 | CP.PCM.PN ---
Subjective - Date & Time of Evaluation Date of Evaluation: 06/10/18 Time of Evaluation: 06:35 - Subjective Subjective: Awake, alert, sitting on chair, denies shortness of breath Reason for consultation and follow up: Cardiac evaluation of elaine of b miller, admitted due to fall hitting his right hip and right chest and knee, history of cardiomyopathy, AICD, non-obstructive coronary artery disease, COPD Seen and examined by me and Dr. Rajan Objective - Vital Signs/Intake and Output Vital Signs (last 24 hours): Temp Pulse Resp BP Pulse Ox 97.2 F L 69 20 111/75 95 06/10/18 06:00 06/10/18 06:00 06/10/18 06:00 06/10/18 06:00 06/10/18 06:00 Intake and Output: 06/10/18 06/10/18 06:59 18:59 Intake Total 660 Output Total 400 Balance 260 - Medications Medications: Current Medications Albuterol/Ipratropium (Duoneb 3 Mg/0.5 Mg (3 Ml) Ud) 3 ml IH TIDRESP [facility] Last Admin: 06/09/18 20:03 Dose: Not Given Albuterol/Ipratropium (Duoneb 3 Mg/0.5 Mg (3 Ml) Ud) 3 ml IH [id number] PRN PRN Reason: Cough and congestion Budesonide (Pulmicort Respules) 0.5 mg IH [id number] [facility] Last Admin: 06/09/18 20:03 Dose: Not Given Dextrose (Dextrose 50% Inj) 0 ml IV STAT PRN; Protocol PRN Reason: Hypoglycemia Protocol Diltiazem HCl (Cardizem) 30 mg PO BID [facility] Last Admin: 06/09/18 18:06 Dose: 30 mg Folic Acid (Folic Acid) 1 mg PO DAILY [facility] Last Admin: 06/09/18 11:58 Dose: 1 mg Furosemide (Lasix) 40 mg PO 0800,1400 [facility] Last Admin: 06/09/18 16:17 Dose: 40 mg Gabapentin (Neurontin) 300 mg PO BID [facility]; Protocol Last Admin: 06/09/18 18:06 Dose: 300 mg Guaifenesin/Dextromethorphan (Mucinex-Dm 600-30 Mg) 1 tab PO BID [facility] Last Admin: 06/09/18 18:06 Dose: 1 tab Dextrose (Dextrose 5% In Water 1000 Ml) 1,000 mls @ 0 mls/hr IV .Q0M PRN; Protocol PRN Reason: Hypoglycemia Protocol Iron Sucrose 200 mg/ Sodium (Chloride) 110 mls @ 110 mls/hr IVPB DAILY [facility] Stop: 06/11/18 08:16 Last Admin: 06/09/18 09:31 Dose: 110 mls/hr Insulin Detemir (Levemir) 20 unit SC HS [facility] Last Admin: 06/09/18 21:24 Dose: 20 units Insulin Human Lispro (Humalog Med) 0 units SC ACHS [facility]; Protocol Last Admin: 06/09/18 21:20 Dose: Not Given Insulin Human Lispro (Humalog) 6 units SC AC [facility] Last Admin: 06/09/18 18:52 Dose: Not Given Lisinopril (Zestril) 2.5 mg PO DAILY [facility] Last Admin: 06/09/18 16:22 Dose: 2.5 mg Lorazepam (Ativan) 1 mg PO BID PRN; Protocol PRN Reason: Anxiety Last Admin: 06/09/18 22:22 Dose: 1 mg Magnesium Oxide (Mag-Ox) 400 mg PO TID [facility] Last Admin: 06/09/18 18:07 Dose: 400 mg Montelukast Sodium (Singulair) 10 mg PO [facility] Last Admin: 06/09/18 21:25 Dose: 10 mg Oxycodone/Acetaminophen (Percocet 10/325 Mg Tab) 1 tab PO Q6H PRN PRN Reason: Pain, severe (8-10) Last Admin: 06/09/18 08:51 Dose: 1 tab Pantoprazole Sodium (Protonix Ec Tab) 40 mg PO [facility] Last Admin: 06/09/18 21:25 Dose: 40 mg Ropinirole HCl (Requip) 0.5 mg PO [facility] Last Admin: 06/09/18 21:25 Dose: 0.5 mg Spironolactone (Aldactone) 25 mg PO BID [facility] Last Admin: 06/09/18 18:06 Dose: 25 mg Trazodone HCl (Desyrel) 150 mg PO HS [facility] Last Admin: 06/09/18 21:24 Dose: 150 mg Warfarin Sodium 7.5 mg/ (Warfarin Sodium 1 mg) 8.5 mg PO 1800 [facility] Last Admin: 06/09/18 18:43 Dose: 8.5 mg - Labs Labs: 06/08/18 07:30 06/10/18 06:30 PT 49.1 SECONDS (9.4-12.5) H 06/10/18 06:30 INR 4.35 H* 06/10/18 06:30 APTT 30.2 Seconds (26.9-38.3) 06/04/18 16:15 - Constitutional Appears: Non-toxic, No Acute Distress - Head Exam Head Exam: NORMAL INSPECTION, NORMOCEPHALIC - Eye Exam Eye Exam: Normal appearance Pupil Exam: NORMAL ACCOMODATION - ENT Exam ENT Exam: Mucous Membranes Moist - Respiratory Exam Respiratory Exam: Decreased Breath Sounds, Clear to Ausculation Bilateral, NORMAL BREATHING PATTERN - Cardiovascular Exam Cardiovascular Exam: +S1, +S2 Additional comments: AICD/PPM - GI/Abdominal Exam GI & Abdominal Exam: Soft, Normal Bowel Sounds - Extremities Exam Extremities Exam: Full ROM Additional comments: 1-2+edema - Neurological Exam Neurological Exam: Alert, Awake, Oriented x3 - Psychiatric Exam Psychiatric exam: Normal Affect, Normal Mood - Skin Skin Exam: Dry, Normal Color, Warm Assessment and Plan - Assessment and Plan (Free Text) Assessment: A 57 year old male who came in to the ER due to complaining of shortness of breath for the past 3 days prior to admission. He also claimed that he fell after loosing his balance and hit his right chest, hip, and knee on coffee table. History of chronic systolic congestive heart failure, COPD on home oxygen, obesity, obstructive sleep apnea, diabetes,depression, anxiety, GERD, history of fall, atrial fibrillation on Coumadin, history of DVT, Gastric bypass, PVD, post angioplasty and drug eluding stent placement in the left tibioperoneal trunk, recent left hip replacement at [facility]. Cardiac cath done on 10/2014 showed normal coronaries. Echo done on 05/06/18 showed LVEF 36%, severely impaired systolic function,RV is dialted and severely hypokinetic. Chest X ray showed mild vascular congestion, cardiomegaly. Exacerbation of acute on chronic systolic congestive heart failure. Continue on diuretics. Chest pain muskuloskeletal in nature due to fall. Right hip X ray showed right hip prosthes is, the longer screw through the acetabular component extends through the cortex of the iliac bone. Knee and rib X ray-unremarkable. Seen by Dr. Mastromonaco and no need of surgical intervention. Discharge planning, Physical therapy. Accepted to TCU for reconditioning and physical therapy. Awaiting transfer. Clinically stable.Denies shortness of breath. Plan: Out of bed to chair, Denies shortness of breath Cardiac status stable Heart rate controlled Blood pressure controlled On Cardizem 30 mg BID,Lasix 60 mg IV every 12 hours, Lisinopril 2.5 mg daily,Zaroxylyn 5 mg daily,Aldactone 25 mg BID Coumadin 8.5 mg daily Hold Coumadin today, INR elevated Repeat INR in am Continue current treatment Continue current medications Glucose control TCU for reconditioning and physical therapy Awaiting transfer to TCU Will follow up Plan and treatment discussed with Dr. Rajan
[2018-06-10] MEDS: Budesonide 0.5 mg/2 ml Inhal Susp UD IH SCH (07:47)
[2018-06-10] MEDS: Albuterol-Ipratrop 3 mg / 0.5 (3 ml) UD IH SCH ×2 (07:47→13:48)
[2018-06-10] MEDS: Insulin Lispro 1 UNITS/0.01 ML SC SCH ×2 (08:04→11:46)
[2018-06-10] MEDS: Insulin Lispro (humaLOG) MEDIUM Coverage SC SCH ×2 (08:04→11:47)
[2018-06-10] MEDS ORDERED: Insulin Detemir 100 units/ml Vial (Levemir) SC SCH (08:32)
[2018-06-10] MEDS: Magnesium Oxide 400 mg Tab UD PO SCH ×2 (10:09→13:10)
[2018-06-10] MEDS: guaiFENesin-DM 600-30 mg ER Tab PO SCH (11:07)
--- NOTE | 2018-06-10 12:20 | CP.PCM.DIS ---
<Kasie Fernandez - Last Filed: 06/10/18 17:40> Provider - Provider Date of Admission: 06/05/18 18:24 Attending physician: Axel Villagomez MD Primary care physician: Hernando Consults: 06/04/18 19:22 Cardiology Consult Routine Comment: Consulting Provider: Tia Rajan Consulting Physician: Tia Rajan Reason for Consult: CHF, risk factors 06/05/18 09:45 Pulmonology Consult Routine Comment: Consulting Provider: Tia Godinez Consulting Physician: Tia Godinez Reason for Consult: WESLY on cpap 06/05/18 14:51 Social Work Referral Routine Comment: O2 dependent Physician Instructions: Reason For Exam: follow up oxygen at home 06/06/18 08:00 Orthopedic Consult Routine Comment: Consulting Provider: Wes Capellan Consulting Physician: Wes Capellan Reason for Consult: right hip pain, h/o hip replacement, displaced screw? 06/06/18 13:25 TCU [Evaluation for TRCU] Routine Comment: Physician Instructions: Reason For Exam: gait instability Time Spent in preparation of Discharge (in minutes): 45 Diagnosis - Discharge Diagnosis (1) Acute systolic CHF (congestive heart failure) Status: Resolved (2) Acute kidney injury Status: Acute (3) COPD exacerbation Status: Chronic (4) Chest pain, rule out acute myocardial infarction Status: Resolved (5) Hip pain Status: Chronic (6) Hyperglycemia Status: Acute (7) Supratherapeutic INR Status: Acute (8) Atrial fibrillation Status: Chronic (9) Diabetes Status: Chronic (10) Obstructive sleep apnea Status: Chronic Hospital Course - Lab Results Lab Results: Most Recent Lab Values WBC 7.3 10^3/uL (4.5-11.0) 06/08/18 07:30 RBC 4.44 10^6/uL (3.5-6.1) 06/08/18 07:30 Hgb 11.0 g/dL (14.0-18.0) L 06/08/18 07:30 Hct 36.2 % (42.0-52.0) L 06/08/18 07:30 MCV 81.5 fl (80.0-105.0) 06/08/18 07:30 MCH 24.8 pg (25.0-35.0) L 06/08/18 07:30 MCHC 30.4 g/dl (31.0-37.0) L 06/08/18 07:30 RDW 16.9 % (11.5-14.5) H 06/08/18 07:30 Plt Count 212 10^3/uL (120.0-450.0) 06/08/18 07:30 MPV 9.7 fl (7.0-11.0) 06/08/18 07:30 Neut % (Auto) 75.6 % (50.0-68.0) H 06/08/18 07:30 Lymph % (Auto) 11.7 % (22.0-35.0) L 06/08/18 07:30 Meagher % (Auto) 10.6 % (1.0-6.0) H 06/08/18 07:30 Eos % (Auto) 1.6 % (1.5-5.0) 06/08/18 07:30 Baso % (Auto) 0.5 % (0.0-3.0) 06/08/18 07:30 Lymph # (Auto) 0.9 (1.2-3.4) L 06/08/18 07:30 Meagher # (Auto) 0.8 (0.1-0.6) H 06/08/18 07:30 Eos # (Auto) 0.1 (0.0-0.7) 06/08/18 07:30 Baso # (Auto) 0.04 K/mm3 (0.0-2.0) 06/08/18 07:30 Absolute Neuts (auto) 5.50 (1.4-6.5) 06/08/18 07:30 ESR 5 mm/hr (0.00-15.0) 06/06/18 06:30 PT 49.1 SECONDS (9.4-12.5) H 06/10/18 06:30 INR 4.35 H* 06/10/18 06:30 APTT 30.2 Seconds (26.9-38.3) 06/04/18 16:15 Sodium 137 mmol/L (132-148) 06/10/18 06:30 Potassium 4.6 mmol/L (3.6-5.0) 06/10/18 06:30 Chloride 97 mmol/L (98-107) L 06/10/18 06:30 Carbon Dioxide 33 mmol/L (21-33) 06/10/18 06:30 Anion Gap 12 (10-20) 06/10/18 06:30 BUN 30 mg/dL (7-21) H 06/10/18 06:30 Creatinine 1.4 mg/dl (0.8-1.5) 06/10/18 06:30 Est GFR ( Amer) > 60 06/10/18 06:30 Est GFR (Non-Af Amer) 52 06/10/18 06:30 POC Glucose (mg/dL) 240 mg/dL (65-110) H 06/10/18 11:32 Random Glucose 225 mg/dL (70-110) H 06/10/18 06:30 Calcium 9.3 mg/dL (8.4-10.5) 06/10/18 06:30 Phosphorus 3.5 mg/dL (2.5-4.5) 06/08/18 07:30 Magnesium 2.0 mg/dL (1.7-2.2) 06/08/18 07:30 Iron 39 ug/dL (45-180) L 06/05/18 11:00 TIBC 430 ug/dL (261-462) 06/05/18 11:00 % Saturation 9 % (20-55) L 06/05/18 11:00 Ferritin 16.6 ng/mL 06/05/18 07:00 Total Bilirubin 0.3 mg/dL (0.2-1.3) 06/10/18 06:30 AST 31 U/L (17-59) 06/10/18 06:30 ALT 14 U/L (7-56) 06/10/18 06:30 Alkaline Phosphatase 76 U/L (38-126) 06/10/18 06:30 Lactate Dehydrogenase 432 U/L (333-699) 06/04/18 16:15 Total Creatine Kinase 51 U/L (35-230) 06/04/18 16:15 Troponin I 0.05 ng/mL 06/05/18 13:00 C-Reactive Protein 11.30 mg/L (0.0-9.9) H 06/06/18 06:30 NT-Pro-B Natriuret Pep 2760 pg/mL (0-450) H 06/04/18 16:15 Total Protein 6.9 g/dL (5.8-8.3) 06/10/18 06:30 Albumin 3.9 g/dL (3.0-4.8) 06/10/18 06:30 Globulin 3.0 gm/dL 06/10/18 06:30 Albumin/Globulin Ratio 1.3 (1.1-1.8) 06/10/18 06:30 Vitamin B12 246 pg/mL (239-931) 06/05/18 07:00 Folate 5.9 ng/mL 06/05/18 07:00 TSH 3rd Generation 2.05 mIU/mL (0.46-4.68) 06/07/18 07:00 - Hospital Course Hospital Course: Patient is a 57 y/o Male with PMHx of 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 Patient was admitted with systolic CHF exacerbation, patient was diuresed, with Lasix. Patient was also placed on milrionone drip by director of clinical trials. Troponin was indeterminate x3. Patient also stated he fell at home, rib and knee x-ray were normal. Hip x-ray showed possible displaced right prosthetic screw, however CT of the hip was normal. Orthopedic also evaluated patient and recommended no surgical intervention. Patient is to be discharged to TCU for rehab. Patient will resume all his home medications. Coumadin is held due to supra-therapeutic INR, and will repeat the lab tomorrow while in tcu. - Date & Time of H&P Date of H&P: 06/05/18 Time of H&P: 18:24 Discharge Exam - Head Exam Head Exam: NORMAL INSPECTION, NORMOCEPHALIC - Eye Exam Eye Exam: EOMI, Normal appearance, PERRL. absent: Scleral icterus Pupil Exam: NORMAL ACCOMODATION - ENT Exam ENT Exam: Mucous Membranes Dry, Mucous Membranes Moist - Neck Exam Neck exam: Normal Inspection - Respiratory Exam Respiratory Exam: Clear to PA & Lateral, NORMAL BREATHING PATTERN, UNREMARKABLE. absent: Rales, Rhonchi, Wheezes, Stridor - Cardiovascular Exam Cardiovascular Exam: Irregular Rhythm, +S1, +S2, +S4. absent: Diastolic murmur, Gallop, REGULAR RHYTHM, JVD, RRR, Rubs, Systolic Murmur - GI/Abdominal Exam GI & Abdominal Exam: Normal Bowel Sounds, Soft, Unremarkable. absent: Distended, Firm, Guarding, Hyperactive Bowel Sounds, Rebound, Rigid, Tenderness - Extremities Exam Extremities exam: pedal edema (+1) - Back Exam Back exam: NORMAL INSPECTION - Neurological Exam Neurological exam: Alert, Oriented x3 - Psychiatric Exam Psychiatric exam: Normal Affect, Normal Mood - Skin Skin Exam: Normal Color, Warm Additional comments: + Chronic venous stasis. Discharge Plan - Follow Up Plan Condition: STABLE Disposition: REHAB FACILITY/REHAB UNIT Instructions: Heart Attack, Heart Failure (DC), Pacemaker (DC), Pacemaker (GEN), Pulmonary Edema (DC) Additional Instructions: Patient to be dc to tcu. Referrals: Tia Rajan MD [Staff Provider] - Axel Villagomez MD [Staff Provider] - <Axel Villagomez - Last Filed: 06/10/18 18:11> Provider - Provider Date of Admission: 06/05/18 18:24 Attending physician: Axel Villagomez MD Consults: 06/04/18 19:22 Cardiology Consult Routine Comment: Consulting Provider: Tia Rajan Consulting Physician: Tia Rajan Reason for Consult: CHF, risk factors 06/05/18 09:45 Pulmonology Consult Routine Comment: Consulting Provider: Tia Godinez Consulting Physician: Tia Godinez Reason for Consult: WESLY on cpap 06/05/18 14:51 Social Work Referral Routine Comment: O2 dependent Physician Instructions: Reason For Exam: follow up oxygen at home 06/06/18 08:00 Orthopedic Consult Routine Comment: Consulting Provider: Wes Capellan Consulting Physician: Wes Capellan Reason for Consult: right hip pain, h/o hip replacement, displaced screw? 06/06/18 13:25 TCU [Evaluation for TRCU] Routine Comment: Physician Instructions: Reason For Exam: gait instability Hospital Course - Lab Results Lab Results: Most Recent Lab Values WBC 7.3 10^3/uL (4.5-11.0) 06/08/18 07:30 RBC 4.44 10^6/uL (3.5-6.1) 06/08/18 07:30 Hgb 11.0 g/dL (14.0-18.0) L 06/08/18 07:30 Hct 36.2 % (42.0-52.0) L 06/08/18 07:30 MCV 81.5 fl (80.0-105.0) 06/08/18 07:30 MCH 24.8 pg (25.0-35.0) L 06/08/18 07:30 MCHC 30.4 g/dl (31.0-37.0) L 06/08/18 07:30 RDW 16.9 % (11.5-14.5) H 06/08/18 07:30 Plt Count 212 10^3/uL (120.0-450.0) 06/08/18 07:30 MPV 9.7 fl (7.0-11.0) 06/08/18 07:30 Neut % (Auto) 75.6 % (50.0-68.0) H 06/08/18 07:30 Lymph % (Auto) 11.7 % (22.0-35.0) L 06/08/18 07:30 Meagher % (Auto) 10.6 % (1.0-6.0) H 06/08/18 07:30 Eos % (Auto) 1.6 % (1.5-5.0) 06/08/18 07:30 Baso % (Auto) 0.5 % (0.0-3.0) 06/08/18 07:30 Lymph # (Auto) 0.9 (1.2-3.4) L 06/08/18 07:30 Meagher # (Auto) 0.8 (0.1-0.6) H 06/08/18 07:30 Eos # (Auto) 0.1 (0.0-0.7) 06/08/18 07:30 Baso # (Auto) 0.04 K/mm3 (0.0-2.0) 06/08/18 07:30 Absolute Neuts (auto) 5.50 (1.4-6.5) 06/08/18 07:30 ESR 5 mm/hr (0.00-15.0) 06/06/18 06:30 PT 49.1 SECONDS (9.4-12.5) H 06/10/18 06:30 INR 4.35 H* 06/10/18 06:30 APTT 30.2 Seconds (26.9-38.3) 06/04/18 16:15 Sodium 137 mmol/L (132-148) 06/10/18 06:30 Potassium 4.6 mmol/L (3.6-5.0) 06/10/18 06:30 Chloride 97 mmol/L (98-107) L 06/10/18 06:30 Carbon Dioxide 33 mmol/L (21-33) 06/10/18 06:30 Anion Gap 12 (10-20) 06/10/18 06:30 BUN 30 mg/dL (7-21) H 06/10/18 06:30 Creatinine 1.4 mg/dl (0.8-1.5) 06/10/18 06:30 Est GFR ( Amer) > 60 06/10/18 06:30 Est GFR (Non-Af Amer) 52 06/10/18 06:30 POC Glucose (mg/dL) 240 mg/dL (65-110) H 06/10/18 11:32 Random Glucose 225 mg/dL (70-110) H 06/10/18 06:30 Calcium 9.3 mg/dL (8.4-10.5) 06/10/18 06:30 Phosphorus 3.5 mg/dL (2.5-4.5) 06/08/18 07:30 Magnesium 2.0 mg/dL (1.7-2.2) 06/08/18 07:30 Iron 39 ug/dL (45-180) L 06/05/18 11:00 TIBC 430 ug/dL (261-462) 06/05/18 11:00 % Saturation 9 % (20-55) L 06/05/18 11:00 Ferritin 16.6 ng/mL 06/05/18 07:00 Total Bilirubin 0.3 mg/dL (0.2-1.3) 06/10/18 06:30 AST 31 U/L (17-59) 06/10/18 06:30 ALT 14 U/L (7-56) 06/10/18 06:30 Alkaline Phosphatase 76 U/L (38-126) 06/10/18 06:30 Lactate Dehydrogenase 432 U/L (333-699) 06/04/18 16:15 Total Creatine Kinase 51 U/L (35-230) 06/04/18 16:15 Troponin I 0.05 ng/mL 06/05/18 13:00 C-Reactive Protein 11.30 mg/L (0.0-9.9) H 06/06/18 06:30 NT-Pro-B Natriuret Pep 2760 pg/mL (0-450) H 06/04/18 16:15 Total Protein 6.9 g/dL (5.8-8.3) 06/10/18 06:30 Albumin 3.9 g/dL (3.0-4.8) 06/10/18 06:30 Globulin 3.0 gm/dL 06/10/18 06:30 Albumin/Globulin Ratio 1.3 (1.1-1.8) 06/10/18 06:30 Vitamin B12 246 pg/mL (239-931) 06/05/18 07:00 Folate 5.9 ng/mL 06/05/18 07:00 TSH 3rd Generation 2.05 mIU/mL (0.46-4.68) 06/07/18 07:00 - Hospital Course Hospital Course: Pt seen and examined by me. I have reviewed the note of the medical librarian and I agree with it. I have discussed the assessment and plan with the resident. I have reviewed the medications and the last labs.
[2018-06-10 15:00] VITALS: BP 101/67; PULSE 72; O2SAT 96
--- NOTE | 2018-06-10 20:20 | PN ---
DATE: 06/10/2018 The patient was seen and examined. I do agree with the note of the regional medical director. The plan of care was also reviewed with the resident. The patient is willing to go to subacute rehab or transitional care unit. He was admitted to the hospital because of acute CHF secondary to systolic dysfunction. His lower extremity edema has improved. He is on Coumadin for anticoagulation. His INR is elevated, so I will hold his Coumadin today. His INR is 4.3. The patient has a creatinine of 1.4. He is going to continue with Humalog for his diabetes. He is on Levemir for his diabetes. He is going to continue with magnesium oxide. The patient is on iron for his iron deficiency. He is going to continue with Ativan as needed for his anxiety. The patient is on Cardizem, he is on lisinopril for his CHF. He is waiting to go to transitional care unit. He will be discharged to the transitional care unit today. Condition is stable. Activities increase as tolerated. Follow with Dr. Villagomez in one to two weeks. Axel Villagomez MD
== END 2018-06-10 15:36 | DRG 292 ==
LOC: ED 13:40 → ERH 17:24 → 3RSO 18:39 → OBSVTOIN 06-05 18:24 → 2RSO 06-06 19:08 → 5RNO 06-08 11:42
PROVIDERS: ADMIT Internal Medicine Nephrology; ATTEND Internal Medicine Nephrology
PROC: 5A09357 Assistance with Respiratory Ventilation, Less than 24 Consecutive Hours, Continuous Positive Airway Pressure (ICD-10-PCS; principal; 2018-06-05)
DX: I11.0 Hypertensive heart disease with heart failure (principal); I24.9 Acute ischemic heart disease, unspecified; Z68.41 Body mass index [BMI] 40.0-44.9, adult; I47.2 Ventricular tachycardia; J44.1 Chronic obstructive pulmonary disease with (acute) exacerbation; N17.9 Acute kidney failure, unspecified; I50.23 Acute on chronic systolic (congestive) heart failure; W01.190A Fall on same level from slipping, tripping and stumbling with subsequent striking against furniture, initial encounter; Z96.641 Presence of right artificial hip joint; Z87.891 Personal history of nicotine dependence; I25.5 Ischemic cardiomyopathy; I25.10 Atherosclerotic heart disease of native coronary artery without angina pectoris; Z95.1 Presence of aortocoronary bypass graft; G47.33 Obstructive sleep apnea (adult) (pediatric); E11.42 Type 2 diabetes mellitus with diabetic polyneuropathy; Z79.4 Long term (current) use of insulin; I48.0 Paroxysmal atrial fibrillation; Z79.01 Long term (current) use of anticoagulants; Z86.718 Personal history of other venous thrombosis and embolism; G89.29 Other chronic pain; M54.9 Dorsalgia, unspecified; G47.69 Other sleep related movement disorders; R79.1 Abnormal coagulation profile; E83.42 Hypomagnesemia; Z98.84 Bariatric surgery status; E66.9 Obesity, unspecified; Z91.19 Patient's noncompliance with other medical treatment and regimen; Z79.899 Other long term (current) drug therapy; E11.51 Type 2 diabetes mellitus with diabetic peripheral angiopathy without gangrene; E11.65 Type 2 diabetes mellitus with hyperglycemia; D50.9 Iron deficiency anemia, unspecified; E66.01 Morbid (severe) obesity due to excess calories; E78.5 Hyperlipidemia, unspecified; F31.9 Bipolar disorder, unspecified; F40.240 Claustrophobia; H54.7 Unspecified visual loss; H91.90 Unspecified hearing loss, unspecified ear; I87.2 Venous insufficiency (chronic) (peripheral); K21.9 Gastro-esophageal reflux disease without esophagitis; G25.81 Restless legs syndrome; T50.2X5A Adverse effect of carbonic-anhydrase inhibitors, benzothiadiazides and other diuretics, initial encounter; Y92.009 Unspecified place in unspecified non-institutional (private) residence as the place of occurrence of the external cause; Z82.49 Family history of ischemic heart disease and other diseases of the circulatory system; Z85.858 Personal history of malignant neoplasm of other endocrine glands; Z87.01 Personal history of pneumonia (recurrent); Z95.5 Presence of coronary angioplasty implant and graft; Z95.810 Presence of automatic (implantable) cardiac defibrillator; Z99.81 Dependence on supplemental oxygen

== ENCOUNTER 2018-06-10 15:37 | Inpatient (IN) | payer MEDICARE ==
[2018-06-10 15:58] VITALS: BMI 41.7
[2018-06-10] MEDS ORDERED: Albuterol-Ipratrop 3 mg / 0.5 (3 ml) UD IH PRN (16:02)
[2018-06-10] MEDS ORDERED: Oxycodone/Acetaminophen 10/325 mg Tab PO PRN (16:02)
[2018-06-10] MEDS ORDERED: Dextrose 50% SYRINGE Inj (50 ml) IV PRN (16:04)
[2018-06-10] MEDS: Insulin Lispro (humaLOG) MEDIUM Coverage SC SCH ×2 (17:21→21:51)
[2018-06-10] MEDS: Insulin Lispro 1 UNITS/0.01 ML SC SCH (17:21)
[2018-06-10] MEDS: guaiFENesin-DM 600-30 mg ER Tab PO SCH (17:25)
[2018-06-10] MEDS: Magnesium Oxide 400 mg Tab UD PO SCH (17:25)
[2018-06-10] MEDS: Albuterol-Ipratrop 3 mg / 0.5 (3 ml) UD IH SCH (20:28)
[2018-06-10] MEDS: Budesonide 0.5 mg/2 ml Inhal Susp UD IH SCH (20:28)
[2018-06-10] MEDS: Pantoprazole 40 mg EC Tab PO SCH (21:46)
[2018-06-10] MEDS: Insulin Detemir 100 units/ml Vial (Levemir) SC SCH (21:51)
--- NOTE | 2018-06-11 06:59 | CP.PCM.HP ---
<Kasie Fernandez - Last Filed: 06/11/18 14:16> History of Present Illness - History of Present Illness History of Present Illness: IM Resident H&P for Dr. 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 Patient was admitted wit h systolic CHF exacerbation, patient was diuresed, with Lasix. Patient was also placed on milrionone drip by pipe racker. Troponin was indeterminate x3. Patient also stated he fell at home, rib and knee x-ray were normal. Hip x-ray showed possible displaced right prosthetic screw, however CT of the hip was normal. Orthopedic also evaluated patient and recommended no surgical intervention. Patient is currently in TCU for rehab. Patient states he's doing well this morning. Denies SOB, cp, no nausea, vomiting or diarrhea. Patient is tolerating po intake. Present on Admission - Present on Admission Any Indicators Present on Admission: No History of DVT/PE: No History of Uncontrolled Diabetes: No Urinary Catheter: No Decubitus Ulcer Present: No Review of Systems - Constitutional Constitutional: absent: Anorexia, Chills, Fatigue, Fever, Headache, Lethargy, Weakness - EENT Eyes: absent: Blurred Vision, Change in Vision Nose/Mouth/Throat: absent: Nasal Congestion, Nasal Discharge - Cardiovascular Cardiovascular: absent: Chest Pain, Chest Pain at Rest, Claudication, Diaphoresis, Dyspnea, Leg Edema, Palpitations, Pedal Edema, Slow Heart Rate, Syncope - Respiratory Respiratory: absent: Cough, Dyspnea, Dyspnea on Exertion, Wheezing, Stridor - Gastrointestinal Gastrointestinal: absent: Abdominal Pain, Belching, Bloating, Constipation, Cramping, Diarrhea, Dyspepsia, Dysphagia, Early Satiety, Melena, Nausea, Temesmus, Vomiting - Genitourinary Genitourinary: absent: Change in Urinary Stream, Difficulty Urinating, Dysuria, Hematuria, Pyuria, Nocturia - Musculoskeletal Musculoskeletal: Other (right hip pain). absent: Arthralgias, Atrophy, Back Pain - Integumentary Integumentary: absent: Rash, Swelling, Wounds - Neurological Neurological: absent: Dizziness, Focal Weakness, Syncope, Tremor, Vertigo, Weakness - Psychiatric Psychiatric: absent: Anxiety, Confusion, Depression - Endocrine Endocrine: absent: Fatigue, Palpitations, Polydipsia, Polyphagia, Polyuria - Hematologic/Lymphatic Hematologic: absent: Easy Bleeding, Easy Bruising, Lymphadenopathy Past Patient History - Infectious Disease Hx of Infectious Diseases: None - Tetanus Immunizations Tetanus Immunization: Unknown - Past Medical History & Family History Past Medical History?: Yes - Past Social History Smoking Status: Former Smoker Alcohol: None Drugs: Denies Home Situation {Lives}: Alone - CARDIAC Hx Cardiac Disorders: Yes Hx Congestive Heart Failure: Yes Hx Hypertension: Yes - PULMONARY Hx Chronic Obstructive Pulmonary Disease (COPD): Yes - NEUROLOGICAL Hx Neurological Disorder: Yes Hx Dizziness: Yes - HEENT Hx HEENT Problems: Yes Hx Blind: Yes (HX eye sugery) Hx Deafness: Yes - RENAL Hx Chronic Kidney Disease: No - ENDOCRINE/METABOLIC Hx Diabetes Mellitus Type 2: Yes - HEMATOLOGICAL/ONCOLOGICAL Hx Blood Disorders: No - INTEGUMENTARY Hx Dermatological Problems: No - MUSCULOSKELETAL/RHEUMATOLOGICAL Hx Falls: Yes (s/p fall prior to admission) - GASTROINTESTINAL Hx Gastrointestinal Disorders: Yes (gastric bypass surgery) Hx Gastroesophageal Reflux: Yes - GENITOURINARY/GYNECOLOGICAL Hx Reproductive Disorders: No - PSYCHIATRIC Hx Psychophysiologic Disorder: Yes Hx Anxiety: Yes Hx Bipolar Disorder: Yes Hx Depression: Yes - SURGICAL HISTORY Hx Cardiac Catheterization: Yes Hx Coronary Stent: Yes Hx Gastric Bypass Surgery: Yes - ANESTHESIA Hx Anesthesia: Yes Hx Anesthesia Reactions: No Hx Malignant Hyperthermia: No Meds Allergies/Adverse Reactions: Allergies Allergy/AdvReac Type Severity Reaction Status Date / Time quetiapine fumarate AdvReac ANAPHYLAXIS Verified 05/04/18 17:44 [From Seroquel] wild berries Allergy Intermediate RASH Uncoded 05/04/18 17:44 Physical Exam - Constitutional Appears: No Acute Distress, Chronically Ill - Head Exam Head Exam: ATRAUMATIC, NORMAL INSPECTION, NORMOCEPHALIC - Eye Exam Eye Exam: EOMI, Normal appearance, PERRL Pupil Exam: NORMAL ACCOMODATION, PERRL - ENT Exam ENT Exam: Mucous Membranes Moist - Neck Exam Neck exam: Positive for: Normal Inspection - Respiratory Exam Respiratory Exam: Clear to Auscultation Bilateral, NORMAL BREATHING PATTERN. absent: Chest Wall Tenderness, Decreased Breath Sounds, Rales, Rhonchi, Wheezes, Respiratory Distress, Stridor - Cardiovascular Exam Cardiovascular Exam: Irregular Rhythm, +S1, +S2. absent: Bradycardia, Tachycardia, Diastolic murmur, Gallop, REGULAR RHYTHM, JVD, RRR, Rubs, Systolic Murmur - GI/Abdominal Exam GI & Abdominal Exam: Normal Bowel Sounds, Soft. absent: Diminished Bowel Sounds, Distended, Firm, Guarding, Rebound, Rigid, Tenderness - Extremities Exam Extremities exam: Positive for: pedal edema (+2), pedal pulses present. Negative for: tenderness - Back Exam Back exam: NORMAL INSPECTION - Neurological Exam Neurological exam: Alert, Oriented x3 - Psychiatric Exam Psychiatric exam: Normal Affect, Normal Mood - Skin Skin Exam: Dry, Intact, Normal Color, Warm Results - Vital Signs Recent Vital Signs: Last Vital Signs Temp 98.1 F 06/10/18 16:37 Pulse 70 06/10/18 17:24 Resp 18 06/10/18 16:37 BP 116/71 06/10/18 17:24 Pulse Ox - Labs Labs: Laboratory Results - last 24 hr 06/10/18 06/10/18 06/11/18 16:51 21:44 05:42 POC Glucose (mg/dL) 196 H 223 H 233 H Assessment & Plan - Assessment and Plan (Free Text) Assessment: 1) CHF exacerbation- resolved 2) Subtherapeutic INR 3) Hypomagnesemia 4) S/p mechanical fall 5) DORITA- resolved 6) Right hip pain with h/o prosthetic hip 7) Bilateral chronic venous insufficiency 8) Chronic normocytic anemia 9) h/o COPD of home O2, 10) Ischemic cardiomyopathy s/p permanent pacemaker and AICD 11) LVEF on 36% 12) CAD s/p CABG 13) WESLY on cpap 14) IDDM2 15) AFIB on Coumadin- rate controlled 16) H/o DVT on Coumadin 17) Chronic back pain 18) Diabetic neuropathy 19) Anxiety/ depression 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 Plan: Patient will start physical therapy. Will continue with Lasix 40 mg po bid for chf. Patient is also on Aldactone, and lisinopril. Continue with Cardizem for afib. Will hold coumadin due to supratheurapeutic INR. Will repeat INR tomorrow. Continue with Levemir 22 unit hs, Humalog 6 unit ac, ISS, will resume home dose metformin at 1000 mg bid and glimepiride 4 mg daily. Will continue with duoneb prn and standing dose. Continue with singulair, and pulmocort. Patient is on robitussin prn for cough. Will continue with folic acid po, and vitamin b12 po. Patient completed IV iron load. Continue with Neurontin for neuropathy. On mag po for hypomagnesemia. On trazodone hs for depression and requip hs for movement disorder. Protonix is for gerd. Patient seen, examined and case discussed with Dr. Villagomez. - Date & Time Date: 06/11/18 Time: 08:25 <Axel Villagomez S - Last Filed: 06/11/18 14:30> Results - Vital Signs Recent Vital Signs: Last Vital Signs Temp 97.5 F L 06/11/18 10:00 Pulse 69 06/11/18 10:11 Resp 18 06/11/18 10:00 BP 122/64 06/11/18 13:29 Pulse Ox 95 06/11/18 10:00 - Labs Labs: Laboratory Results - last 24 hr 06/10/18 06/10/18 06/11/18 16:51 21:44 05:42 PT INR POC Glucose (mg/dL) 196 H 223 H 233 H 06/11/18 06/11/18 07:05 11:11 PT 45.1 H INR 3.99 H* POC Glucose (mg/dL) 272 H Assessment & Plan - Assessment and Plan (Free Text) Plan: Patient was seen and examined by me. I have reviewed the note of the medical grade shoemaker and have gone over the plan of care. I agree with the note. I have reviewed the medications and the last labs.
[2018-06-11] MEDS: Albuterol-Ipratrop 3 mg / 0.5 (3 ml) UD IH SCH ×3 (07:18→21:13)
[2018-06-11] MEDS: Insulin Lispro 1 UNITS/0.01 ML SC SCH ×3 (07:18→17:26)
[2018-06-11] MEDS: Budesonide 0.5 mg/2 ml Inhal Susp UD IH SCH ×2 (07:18→21:13)
[2018-06-11] MEDS: Insulin Lispro (humaLOG) MEDIUM Coverage SC SCH ×4 (07:18→21:31)
[2018-06-11 07:43] LABS: PROTHROMBIN TIME 45.1 SECONDS (9.4-12.5)
[2018-06-11 07:45] LABS: INR 3.99
[2018-06-11] MEDS: Magnesium Oxide 400 mg Tab UD PO SCH ×3 (10:10→17:22)
[2018-06-11] MEDS: guaiFENesin-DM 600-30 mg ER Tab PO SCH ×2 (10:10→17:22)
--- NOTE | 2018-06-11 11:40 | CON ---
DATE: 06/11/2018 PULMONARY CONSULTATION NOTE REFERRING PHYSICIAN: Axel Villagomez MD REASON FOR CONSULTATION: Chronic lung disease. HISTORY OF PRESENT ILLNESS: This is a 57-year-old male with past medical history significant for COPD on home oxygen, congestive heart failure, coronary artery disease, diabetes mellitus, atrial fibrillation, DVT, cardiomyopathy, morbid obesity. The patient has history of sleep apnea. The patient presented to emergency room complaining chest pain with shortness of breath for three days. He was treated for acute CHF exacerbation. At this time, he is on TCU floor for rehabilitation. Sleep study results were reviewed from sleep study patient took as outpatient. Results showed the patient at this time does not have sleep apnea. The patient reports that since his first sleep study which was positive for sleep apnea, he had lost about 60 pounds. Today the patient seen sitting in chair in physical therapy. No acute distress. Reports feeling well today. PAST MEDICAL HISTORY: As per history of present illness. ALLERGIES: WILD BERRIES, QUETIAPINE FUMARATE. FAMILY HISTORY: No significant cardiopulmonary disease. SOCIAL HISTORY: Former smoker. Denies EtOH abuse. Former illicit drug use. MEDICATIONS: Reviewed. DuoNeb 3 mL inhalation every 4 hours p.r.n., DuoNeb 3 mL inhalation 3 times a day, Pulmicort 0.5 mg inhalation every 12 hours, vitamin B12 1000 mcg daily, Cardizem 30 mg twice a day, folic acid 1 mg daily, Lasix 40 mg twice a day, Neurontin 300 mg twice a day, glimepiride 4 mg daily, Mucinex DM one tab twice a day, Levemir 22 units subcutaneous at bedtime., Humalog 6 units subcutaneously a.c., Humalog sliding scale a.c. and at bedtime, lisinopril 2.5 mg daily, Ativan 1 mg twice a day p.r.n., magnesium oxide 400 mg 3 times a day, Glucophage 1000 mg twice a day, Singulair 10 mg at bedtime, Percocet 10/325 mg every 6 hours p.r.n., Protonix 40 mg at bedtime, Requip 0.5 mg at bedtime, spironolactone 25 mg twice a day, trazodone 150 mg at bedtime. REVIEW OF SYSTEMS: No headache, rhinitis, chest pain, abdominal pain, nausea, vomiting, diarrhea, leg pain reported, has shortness of breath with exertion at times. PHYSICAL EXAMINATION: GENERAL: No acute distress. VITAL SIGNS: Blood pressure 122/64, pulse 69 and temperature 98.1. HEENT: Moist mucous membranes. Crowded airway. Mallampati score of 4. NECK: Supple. No JVD. Short and thick. LUNGS: Fair airflow bilaterally. CARDIOVASCULAR: S1 and S2. ABDOMEN: Soft and nontender. No distension. EXTREMITIES: +1 bilateral lower extremity edema. NEUROLOGICAL: Awake, alert and verbal. Following commands. LABORATORY DATA: Reviewed. PT 45.1, INR 3.99, POC glucose 233. IMPRESSION AND PLAN: Congestive heart failure exacerbation, subtherapeutic INR, status post mechanical fall, right hip pain with history of prosthetic hip, anemia, chronic obstructive pulmonary disease with oxygen at home, cardiomyopathy, coronary artery disease, status post coronary artery bypass graft, obstructive sleep apnea which has resolved since weight loss, diabetes mellitus, atrial fibrillation. The patient is on anticoagulation therapy for atrial fibrillation which is presently on hold, chronic back pain, diabetic neuropathy, anxiety, depression. Pulmonary point of view, continue inhaled bronchodilators, continue Cardiology followup, gastric prophylaxis, continue physical therapy. We recommend the patient has full pulmonary function test to evaluate chronic lung disease as outpatient. Fall precaution. This patient was seen and examined with Dr. Godinez. Discussed assessment and plan as described above. This patient was seen and examined with Francisco Yates, nurse practitioner. Discussed assessment and plan as described above. Thank you for this consult and we will follow with you. Francisco Yates APN Tia Godinez MD LE[facility]
--- NOTE | 2018-06-11 16:35 | CON ---
DATE: 06/10/2018 ORTHOPEDIC REPORT HISTORY OF PRESENT ILLNESS: This is a 57-year-old male, came in to [facility] with a deep contusion of his right hip from a fall at home approximately 06/06/2018, and he sustained a trip and fall, landed on his right hip where he had gone for a total hip replacement in 02/2018, but the total hip is in place, no undue pain at the groin. He does have right over the trochanteric region. No fracture was notable. He has a deep contusion and muscle involvement of the abductor muscles that is causing his pain in the right hip, so gave him physical therapy at the TCU floor, where he was admitted to on 06/10/2018, to continue therapy before he goes home and hopefully he will be able to do stairs better and strengthen the abductor muscles until the contusion resolves. He does not have much groin pain, but the total hip is in good position during the stay here. FINAL DIAGNOSES: Deep contusion over the right hip area, which is just had a recent total hip replacement of the right side, which aggravates the repair of the muscle that are taking place in this extensive total hip surgery on the right. Wes Capellan DO
[2018-06-11] MEDS: Insulin Detemir 100 units/ml Vial (Levemir) SC SCH (21:32)
[2018-06-11] MEDS: Pantoprazole 40 mg EC Tab PO SCH (21:32)
--- NOTE | 2018-06-11 21:37 | CON ---
DATE OF CONSULTATION: 06/11/2018 CARDIOLOGY CONSULTATION REASON FOR CONSULTATION: Continuity of care in Transitional Care Unit, history of nonobstructive coronary artery disease, history of paroxysmal atrial fibrillation, history of radiofrequency ablation, history of nonischemic cardiomyopathy, and history of AICD. BRIEF CLINICAL HISTORY: This is a 57-year-old morbidly obese male, with a past medical history significant for paroxysmal atrial fibrillation, status post radiofrequency ablation at [facility] by Dr. Hwang, history of nonischemic cardiomyopathy, history of cardiac catheterization, history of nonobstructive coronary artery disease, and history of AICD, came in after a fall, history of right hip replacement and admitted to the floor with decompensated heart failure, started on Primacor. Now the patient moved to TCU for continued care and rehab. The patient's right hip pain is seen by Dr. Capellan, with total hip replacement. Medical treatment recommended. Initial thought that the patient may need revision of the knee and hip, so the patient optimized medically with IV Primacor, but now the patient has medical treatment now at Transitional Care Unit. PAST SURGICAL HISTORY: Significant for obesity, history of AICD placement, history of thrombectomy from left lower extremity, PTCA of left SFA and popliteal trunk, history of DVT, catheter-based treatment of the right DVT of the lower extremity, history of cardiac catheterization 3 times, nonobstructive coronary artery disease, history of radiofrequency ablation for atrial fibrillation by Dr. Hwang at [facility], and history of total right hip replacement last year. PREVIOUS CARDIAC WORKUP: As mentioned in my detailed consultation. In the floor, the patient with the multiple time cardiac catheterizations done, that was nonobstructive coronary artery disease, history of radiofrequency ablation for atrial fibrillation, and history of echo, ejection fraction of 35%. REVIEW OF SYSTEMS: As per HPI. CURRENT MEDICATIONS: The patient is at home, before he came to the hospital he was taking trazodone, Desyrel, Requip, guaifenesin, Cardizem 30 mg, spironolactone, Singulair, lisinopril, folic acid as well as was taking Coumadin. PHYSICAL EXAMINATION: As follows; GENERAL: Height of the patient, 5 feet 10 inches, weight of the patient 270 pounds, and body mass index 41 kg/m2. VITAL SIGNS: Temperature afebrile, heart rate 70, and blood pressure 114/73. HEENT: PERRLA. Extraocular muscles intact. NECK: Supple. No carotid bruits or thyromegaly. CHEST: Clear to auscultation. HEART: S1 and S2 regular. ABDOMEN: Soft. EXTREMITIES: Clubbing and cyanosis negative. LABORATORY DATA: INR 3.99 today. IMPRESSION: A 57-year-old male with the past medical history significant for total hip replacement, fell down with a trauma on the right side of the hip, seen by Dr. Capellan, medical treatment recommended. Initial plan is that the patient may need revision because he said the hip got loose prosthesis, but now needs medical treatment; history of nonischemic cardiomyopathy; nonobstructive coronary artery disease, status post cardiac catheterization x3; history of morbid obesity; history of paroxysmal atrial fibrillation, status post radiofrequency ablation and status post automated implantable cardioverter defibrillator for nonischemic cardiomyopathy. RECOMMENDATIONS: Continue aggressive medical treatment; continue to hold Coumadin. Repeat INR tomorrow. If the INR goes below 2.5, we will start anticoagulation. Continue Cardizem to control the rate. Continue treatment . Continue lisinopril 2.5 mg p.o. daily. Continue spironolactone and continue diuretics. We will follow with you. We will repeat the SMA-7 in the morning. We will repeat mag and phos in the morning too. Please also see the details of consult dictated in the medical floor. Thank you Dr. Villagomez for providing us the opportunity in taking care of the patient, Pete Johnson. Tia Rajan MD
--- NOTE | 2018-06-11 22:13 | HP ---
DATE OF EXAM: 06/11/2018 HISTORY OF PRESENT ILLNESS: The patient was seen and examined. I do agree with the note of the product manager medical device. I was involved in the plan of care. The patient does have CHF secondary to systolic dysfunction. The patient has been on IV Lasix. He is currently in the Transitional Care Unit. I did review the old medical records from the hospital. The patient has uncontrolled diabetes type 2. He will be on his glimepiride 4 mg daily. He is also going to continue with metformin b.i.d. at 1000 mg. He is on his Humalog with meals. He is on Levemir for his evening dose of insulin. He is going to continue with Neurontin for his neuropathy. He is on ropinirole for his restless legs syndrome. The patient is on lisinopril for his CHF. He is going to have repeat blood work tomorrow. His INR has been elevated at 3.9, so his Coumadin has been on hold. He is on insulin sliding scale. His fingerstick done show sugars were above 200. Axel Villagomez MD
--- NOTE | 2018-06-12 06:38 | CP.PCM.PN ---
<Kasie Fernandez - Last Filed: 06/12/18 10:31> Subjective - Date & Time of Evaluation Date of Evaluation: 06/12/18 Time of Evaluation: 08:00 - Subjective Subjective: IM resident progress note for Dr. Villagomez's service Patient with no acute events overnight night. Patient is continuing to do well. No fever or chills. No sob, no cp pain . Objective - Vital Signs/Intake and Output Vital Signs (last 24 hours): Temp Pulse Resp BP Pulse Ox 97.6 F 69 18 112/68 98 06/11/18 16:00 06/11/18 17:23 06/11/18 16:00 06/11/18 17:23 06/11/18 16:00 - Medications Medications: Current Medications Albuterol/Ipratropium (Duoneb 3 Mg/0.5 Mg (3 Ml) Ud) 3 ml IH TIDRESP [facility]; Protocol Last Admin: 06/11/18 21:13 Dose: Not Given Albuterol/Ipratropium (Duoneb 3 Mg/0.5 Mg (3 Ml) Ud) 3 ml IH Q4H PRN; Protocol PRN Reason: Cough and congestion Budesonide (Pulmicort Respules) 0.5 mg IH [id number] [facility]; Protocol Last Admin: 06/11/18 21:13 Dose: Not Given Cyanocobalamin (Vitamin B12 1000 Mcg Tab) 1,000 mcg PO DAILY [facility] Last Admin: 06/11/18 10:11 Dose: 1,000 mcg Dextrose (Dextrose 50% Inj) 0 ml IV STAT PRN; Protocol PRN Reason: Hypoglycemia Protocol Diltiazem HCl (Cardizem) 30 mg PO BID [facility]; Protocol Last Admin: 06/11/18 17:23 Dose: 30 mg Folic Acid (Folic Acid) 1 mg PO DAILY [facility]; Protocol Last Admin: 06/11/18 10:10 Dose: 1 mg Furosemide (Lasix) 40 mg PO 0800,1400 [facility]; Protocol Last Admin: 06/11/18 13:29 Dose: 40 mg Gabapentin (Neurontin) 300 mg PO BID [facility]; Protocol Last Admin: 06/11/18 17:24 Dose: 300 mg Glimepiride (Amaryl) 4 mg PO 0800 [facility] Guaifenesin/Dextromethorphan (Mucinex-Dm 600-30 Mg) 1 tab PO BID [facility]; Protocol Last Admin: 06/11/18 17:22 Dose: 1 tab Dextrose (Dextrose 5% In Water 1000 Ml) 1,000 mls @ 0 mls/hr IV .Q0M PRN; Protocol PRN Reason: Hypoglycemia Protocol Insulin Detemir (Levemir) 22 unit SC HS [facility]; Protocol Last Admin: 06/11/18 21:32 Dose: 22 units Insulin Human Lispro (Humalog) 6 units SC AC [facility]; Protocol Last Admin: 06/11/18 17:26 Dose: Not Given Insulin Human Lispro (Humalog Med) 0 units SC ACHS [facility]; Protocol Last Admin: 06/11/18 21:31 Dose: Not Given Lisinopril (Zestril) 2.5 mg PO DAILY [facility]; Protocol Last Admin: 06/11/18 10:11 Dose: 2.5 mg Lorazepam (Ativan) 1 mg PO BID PRN; Protocol PRN Reason: Anxiety Last Admin: 06/11/18 21:33 Dose: 1 mg Magnesium Oxide (Mag-Ox) 400 mg PO TID [facility]; Protocol Last Admin: 06/11/18 17:22 Dose: 400 mg Metformin HCl (Glucophage) 1,000 mg PO BID [facility] Last Admin: 06/11/18 17:21 Dose: 1,000 mg Montelukast Sodium (Singulair) 10 mg PO HS [facility]; Protocol Last Admin: 06/11/18 21:33 Dose: 10 mg Oxycodone/Acetaminophen (Percocet 10/325 Mg Tab) 1 tab PO Q6H PRN; Protocol PRN Reason: Pain, severe (8-10) Pantoprazole Sodium (Protonix Ec Tab) 40 mg PO HS [facility]; Protocol Last Admin: 06/11/18 21:32 Dose: 40 mg Ropinirole HCl (Requip) 0.5 mg PO HS [facility]; Protocol Last Admin: 06/11/18 21:32 Dose: 0.5 mg Spironolactone (Aldactone) 25 mg PO BID [facility]; Protocol Last Admin: 06/11/18 17:23 Dose: 25 mg Trazodone HCl (Desyrel) 150 mg PO HS [facility]; Protocol Last Admin: 06/11/18 21:30 Dose: 150 mg - Labs Labs: PT 45.1 SECONDS (9.4-12.5) H 06/11/18 07:05 INR 3.99 H* 06/11/18 07:05 - Constitutional Appears: No Acute Distress, Cachectic, Chronically Ill - Head Exam Head Exam: ATRAUMATIC, NORMAL INSPECTION, NORMOCEPHALIC - Eye Exam Eye Exam: Normal appearance. absent: Scleral icterus Pupil Exam: NORMAL ACCOMODATION - ENT Exam ENT Exam: Mucous Membranes Moist - Neck Exam Neck Exam: Normal Inspection. absent: Lymphadenopathy, Meningismus, Tenderness, Thyromegaly - Respiratory Exam Respiratory Exam: Clear to Ausculation Bilateral, NORMAL BREATHING PATTERN. absent: Rales, Rhonchi, Wheezes, Respiratory Distress, Stridor - Cardiovascular Exam Cardiovascular Exam: Irregular Rhythm, +S1, +S2. absent: Bradycardia, Tachycard ia, Clicks, Diastolic murmur, Gallop, REGULAR RHYTHM, JVD, RRR, Rubs, Murmur - GI/Abdominal Exam GI & Abdominal Exam: Soft, Normal Bowel Sounds. absent: Distended, Firm, Guarding, Rigid, Tenderness, Diminished Bowel Sounds, Hypoactive Bowel Sounds, Organomegaly, Rebound - Extremities Exam Extremities Exam: Pedal Edema (+2 with chronic venous stasis. ). absent: Tenderness - Back Exam Back Exam: NORMAL INSPECTION. absent: tenderness - Neurological Exam Neurological Exam: Alert, Awake, Oriented x3 - Psychiatric Exam Psychiatric exam: Normal Affect, Normal Mood - Skin Skin Exam: Abrasion, Dry, Normal Color, Warm Assessment and Plan - Assessment and Plan (Free Text) Assessment: 1) CHF exacerbation- resolved 2) Subtherapeutic INR- resolved 3) Hypomagnesemia 4) S/p mechanical fall 5) DORITA- resolved 6) Right hip pain with h/o prosthetic hip 7) Bilateral chronic venous insufficiency 8) Chronic normocytic anemia 9) h/o COPD of home O2, 10) Ischemic cardiomyopathy s/p permanent pacemaker and AICD 11) LVEF on 36% 12) CAD s/p CABG 13) WESLY on cpap 14) IDDM2 15) AFIB on Coumadin- rate controlled 16) H/o DVT on Coumadin 17) Chronic back pain 18) Diabetic neuropathy 19) Anxiety/ depression 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 Plan: Repeat blood work with improved hgb, improved renal function and normal electrolytes. Patient fingersticks also improved. Continue with po Lasix 40 mg daily, continue with basal insulin and pre-meal insulin. Also on metformin and glimeperide for the diabetes. Continue with aldactone, and lisinopril. Continue Cardizem for afib. Coumadin of 2.38, resume coumadin 8.5 mg. Continue with duonebs and singulair for COPD. Continue with folic acid, and vitamin b12 po. Continue with Neurontin for neuropathy. On mag po for hypomagnesemia. On trazodone hs for depression and requip hs for movement disorder. Protonix is for gerd. Patient seen, examined and case discussed with Dr. Villagomez. <Axel Villagomez S - Last Filed: 06/12/18 17:41> Subjective - Subjective Subjective: Pt seen and examined by me. I have reviewed the note of the medical transcriptionist and I agree with it. I have discussed the assessment and plan with the resident. I have reviewed the medications and the last labs. Objective - Vital Signs/Intake and Output Vital Signs (last 24 hours): Temp Pulse Resp BP Pulse Ox 97.8 F 71 20 128/78 97 06/12/18 16:00 06/12/18 17:19 06/12/18 16:00 06/12/18 17:19 06/12/18 16:00 - Medications Medications: Current Medications Albuterol/Ipratropium (Duoneb 3 Mg/0.5 Mg (3 Ml) Ud) 3 ml IH TIDRESP [facility]; Protocol Last Admin: 06/12/18 14:08 Dose: 3 ml Albuterol/Ipratropium (Duoneb 3 Mg/0.5 Mg (3 Ml) Ud) 3 ml IH Q4H PRN; Protocol PRN Reason: Cough and congestion Budesonide (Pulmicort Respules) 0.5 mg IH [id number] [facility]; Protocol Last Admin: 06/12/18 07:34 Dose: 0.5 mg Cyanocobalamin (Vitamin B12 1000 Mcg Tab) 1,000 mcg PO DAILY [facility] Last Admin: 06/12/18 09:53 Dose: 1,000 mcg Dextrose (Dextrose 50% Inj) 0 ml IV STAT PRN; Protocol PRN Reason: Hypoglycemia Protocol Diltiazem HCl (Cardizem) 30 mg PO BID [facility]; Protocol Last Admin: 06/12/18 17:19 Dose: 30 mg Folic Acid (Folic Acid) 1 mg PO DAILY [facility]; Protocol Last Admin: 06/12/18 09:51 Dose: 1 mg Furosemide (Lasix) 40 mg PO 0800,1400 [facility]; Protocol Last Admin: 06/12/18 14:14 Dose: 40 mg Gabapentin (Neurontin) 300 mg PO BID [facility]; Protocol Last Admin: 06/12/18 17:22 Dose: 300 mg Glimepiride (Amaryl) 4 mg PO 0800 [facility] Last Admin: 06/12/18 07:47 Dose: 4 mg Guaifenesin/Dextromethorphan (Mucinex-Dm 600-30 Mg) 1 tab PO BID [facility]; Protocol Last Admin: 06/12/18 17:22 Dose: 1 tab Dextrose (Dextrose 5% In Water 1000 Ml) 1,000 mls @ 0 mls/hr IV .Q0M PRN; Protocol PRN Reason: Hypoglycemia Protocol Insulin Detemir (Levemir) 22 unit SC HS [facility]; Protocol Last Admin: 06/11/18 21:32 Dose: 22 units Insulin Human Lispro (Humalog) 6 units SC AC [facility]; Protocol Last Admin: 06/12/18 17:20 Dose: Not Given Insulin Human Lispro (Humalog Med) 0 units SC ACHS [facility]; Protocol Last Admin: 06/12/18 17:21 Dose: Not Given Lisinopril (Zestril) 2.5 mg PO DAILY [facility]; Protocol Last Admin: 06/12/18 09:53 Dose: 2.5 mg Lorazepam (Ativan) 1 mg PO BID PRN; Protocol PRN Reason: Anxiety Last Admin: 06/11/18 21:33 Dose: 1 mg Magnesium Oxide (Mag-Ox) 400 mg PO TID [facility]; Protocol Last Admin: 06/12/18 17:21 Dose: 400 mg Metformin HCl (Glucophage) 1,000 mg PO BID [facility] Last Admin: 06/12/18 17:20 Dose: 1,000 mg Montelukast Sodium (Singulair) 10 mg PO HS [facility]; Protocol Last Admin: 06/11/18 21:33 Dose: 10 mg Oxycodone/Acetaminophen (Percocet 10/325 Mg Tab) 1 tab PO Q6H PRN; Protocol PRN Reason: Pain, severe (8-10) Pantoprazole Sodium (Protonix Ec Tab) 40 mg PO HS [facility]; Protocol Last Admin: 06/11/18 21:32 Dose: 40 mg Ropinirole HCl (Requip) 0.5 mg PO HS [facility]; Protocol Last Admin: 06/11/18 21:32 Dose: 0.5 mg Spironolactone (Aldactone) 25 mg PO BID [facility]; Protocol Last Admin: 06/12/18 17:18 Dose: 25 mg Trazodone HCl (Desyrel) 150 mg PO HS [facility]; Protocol Last Admin: 06/11/18 21:30 Dose: 150 mg Warfarin Sodium 7.5 mg/ (Warfarin Sodium 1 mg) 8.5 mg PO 1800 [facility] - Labs Labs: 06/12/18 06:30 06/12/18 06:30 PT 26.9 SECONDS (9.4-12.5) H 06/12/18 06:30 INR 2.38 06/12/18 06:30
[2018-06-12] MEDS: Insulin Lispro (humaLOG) MEDIUM Coverage SC SCH ×4 (07:00→21:50)
[2018-06-12] MEDS: Insulin Lispro 1 UNITS/0.01 ML SC SCH ×3 (07:00→17:20)
[2018-06-12] MEDS: Albuterol-Ipratrop 3 mg / 0.5 (3 ml) UD IH SCH ×3 (07:34→19:05)
[2018-06-12] MEDS: Budesonide 0.5 mg/2 ml Inhal Susp UD IH SCH ×2 (07:34→19:05)
[2018-06-12 07:45] LABS: BASO # 0.06 K/mm3 (0.0-2.0); BASO % 0.9 % (0.0-3.0); EOS # 0.1 (0.0-0.7); EOS % 1.3 % (1.5-5.0); HEMOGLOBIN 12.1 g/dL (14.0-18.0); LYMPH # 1.1 (1.2-3.4); LYMPH % 16.3 % (22.0-35.0); MEAN CORPUSCULAR HEMOGLOBIN 25.2 pg (25.0-35.0); MEAN PLATELET VOLUME 9.8 fl (7.0-11.0); MONO # 0.7 (0.1-0.6); MONO % 10.5 % (1.0-6.0); RBC 4.8 10^6/uL (3.5-6.1); RED CELL DISTRIBUTION WIDTH 18.5 % (11.5-14.5); WHITE BLOOD COUNT 6.7 10^3/uL (4.5-11.0)
[2018-06-12 07:51] LABS: INR 2.38; PROTHROMBIN TIME 26.9 SECONDS (9.4-12.5)
[2018-06-12 08:07] LABS: BLOOD UREA NITROGEN 31 mg/dL (7-21); CALCIUM 9.6 mg/dL (8.4-10.5); GFR NON-AFRICAN AMERICAN > 60
[2018-06-12] MEDS: guaiFENesin-DM 600-30 mg ER Tab PO SCH ×2 (09:52→17:22)
[2018-06-12] MEDS: Magnesium Oxide 400 mg Tab UD PO SCH ×3 (09:52→17:21)
--- NOTE | 2018-06-12 14:48 | PN ---
DATE: 06/12/2018 PULMONARY PROGRESS NOTE REFERRING PHYSICIAN: Axel Villagomez MD SUBJECTIVE: The patient is seen sitting in armchair in room, no acute distress. No overnight events reported. Reports feeling well today. No headache, rhinitis, cough, shortness of breath, chest pain, abdominal pain, nausea, vomiting, diarrhea or leg pain reported. OBJECTIVE: VITAL SIGNS: Blood pressure 117/74, pulse 91, temperature 98.5, oxygen saturation 98%. GENERAL: No acute distress. HEENT: Moist mucous membranes. Mallampati score of 4. Crowded airway. NECK: Supple. No JVD. Short and thick. LUNGS: Fair airflow bilaterally. CARDIOVASCULAR: S1 and S2. ABDOMEN: Soft and nontender. No distension. EXTREMITIES: Trace bilateral lower extremity edema. NEUROLOGICAL: Awake, alert and verbal. Following commands. MEDICATIONS: Reviewed. DuoNeb 3 mL inhalation every 4 hours p.r.n., DuoNeb 3 mL inhalation three times a day, Pulmicort 0.5 mg inhalation every 12 hours, vitamin B12 of 1000 mcg daily, Cardizem 30 mg twice a day, folic acid 1 mg daily, Lasix 40 mg twice a day, Neurontin 300 mg twice a day, glimepiride 4 mg daily, Mucinex DM one tab twice a day, Levemir 22 units subcu h.s., Humalog 6 units subcu a.c., Humalog sliding scale a.c. and h.s., lisinopril 2.5 mg daily, Ativan 1 mg twice a day p.r.n., magnesium oxide 400 mg three times a day, metformin 1000 mg twice a day, Singulair 10 mg at bedtime, Percocet 10/325 mg one tab every 6 hours p.r.n. severe pain, Protonix 40 mg at bedtime, Requip 0.5 mg h.s., Aldactone 25 mg twice a day, trazodone 150 mg at bedtime, and Coumadin 8.5 mg daily. LABORATORY DATA: Reviewed. WBC 6.7, RBC is 4.8, hemoglobin 12.1, hematocrit 40.3, platelets 218. PT 26.9, INR 2.38, sodium 139, potassium 4.6, chloride 97, carbon dioxide 32, anion gap 14, BUN 31, creatinine 1.2, GFR greater than 60, POC glucose 205, random glucose 189, calcium 9.6, phosphorus 3.6, and magnesium 2.1. IMPRESSION AND PLAN: Congestive heart failure exacerbation; status post mechanical fall; right hip pain with history of prosthetic hip; anemia; chronic obstructive pulmonary disease, on oxygen at home; cardiomyopathy; coronary artery disease, status post coronary artery bypass graft; obstructive sleep apnea history, which has shown to be resolved on recent sleep study as the patient has had significant weight loss; diabetes mellitus; atrial fibrillation, currently on anticoagulation therapy; chronic back pain; diabetic neuropathy; anxiety; depression. Pulmonary point of view, continue inhaled bronchodilators; gastric prophylaxis; continue physical therapy; continue Cardiology followup; continue diuretics; fall precaution. We recommend the patient have full pulmonary function test to evaluate chronic lung disease as outpatient. This patient was seen and examined with Dr. Godinez. Discussed assessment and plan as described above. This patient was seen and examined with Francisco Yates, nurse practitioner. Discussed assessment and plan as described above. Thank you for this consult. We will follow with you. Francisco Yates APN Tia Godinez MD
[2018-06-12] MEDS ORDERED: WARFARIN PO SCH (18:00)
--- NOTE | 2018-06-12 18:10 | PN ---
DATE: 06/12/2018 LOCATION: The patient is in room 321, bed 1. REASON FOR CONSULTATION AND FOLLOWUP: Nonobstructive coronary artery disease, paroxysmal atrial fibrillation, radiofrequency ablation, history of nonischemic cardiomyopathy, AICD insertion. SUBJECTIVE: The patient is sitting in chair without chest pain, shortness of breath or palpitation. He complains of pain in the right hip since he had a fall from a chair. PHYSICAL EXAMINATION: VITAL SIGNS: Blood pressure 117/74, respiration 18, pulse 91 and temperature 98.5. HEENT: Head is normocephalic. Eyes, pupils normal. Conjunctivae normal. NECK: JVP low. Carotids equal. Thorax AP diameter normal. LUNGS: No rales. CARDIOVASCULAR: S1 and S2. ABDOMEN: Protuberant. No organomegaly. EXTREMITIES: No clubbing. No cyanosis. LABORATORY DATA: WBC 6.7, hemoglobin 12.1, hematocrit 40.3 and platelet 218. Sodium 139, potassium 4.6, BUN 31 and creatinine 1.2, random sugar 205, another random glucose 189, calcium 9.6, phosphorus 2.6, and magnesium 2.1. IMPRESSION: The patient has history of right hip total replacement, fell down from a chair and hit the right side of the head, since then having pain, medical treatment recommended by Dr. Capellan, history of nonischemic cardiomyopathy, nonobstructive coronary artery disease, status post cardiac catheterization x3, history of morbid obesity, paroxysmal atrial fibrillation, status post radiofrequency ablation, status post automated implantable cardioverter defibrillator insertion, the patient had history of percutaneous transluminal coronary angioplasty of the left superficial femoral artery and popliteal trunk, history of deep venous thrombosis, catheter-based treatment of the right deep venous thrombosis of the lower extremity. History of chronic obstructive pulmonary disease, history of congestive heart failure, morbid obesity, deconditioning. PLAN: Plan is to continue physical therapy. The patient is on spironolactone 25 mg b.i.d., Amaryl 4 mg daily, Ativan 1 mg p.o. b.i.d. p.r.n., Cardizem 30 mg b.i.d., warfarin 8.5 mg p.o. daily, Desyrel 150 mg p.o. h.s., DuoNeb hand nebulizer therapy, folic acid 1 mg daily, metformin 1000 mg b.i.d., furosemide 40 mg b.i.d., insulin as ordered, mag oxide 400 mg p.o. t.i.d., Neurontin 300 b.i.d., Zestril 2.5 mg daily. Deconditioning, continue physical therapy. We will follow with you. Tia Cabello MD
[2018-06-12] MEDS: Insulin Detemir 100 units/ml Vial (Levemir) SC SCH (21:51)
--- NOTE | 2018-06-12 21:55 | PN ---
DATE: 06/12/2018 The patient was seen and examined. I do agree with the note of the medical device sales. I was involved in the plan of care. The patient has lower extremity edema. The patient is on lisinopril and Aldactone for his CHF. He is on Coumadin for his atrial fibrillation. This will be continued. The patient is on Singulair and DuoNeb for his COPD. He is going to continue Neurontin for his neuropathy. He is going to have magnesium replacement for his hypomagnesemia. He is on trazodone in the evening for sleeping and for his depression. He is on Requip for his restless leg syndrome. He is on Protonix for his GERD. He is walking fairly well. He has diuresed significantly. The patient is going to continue with metformin and insulin and glimepiride for his diabetes. Axel Villagomez MD
[2018-06-12] MEDS: Pantoprazole 40 mg EC Tab PO SCH (22:26)
[2018-06-13] MEDS: Insulin Lispro (humaLOG) MEDIUM Coverage SC SCH ×4 (06:51→21:44)
[2018-06-13] MEDS: Insulin Lispro 1 UNITS/0.01 ML SC SCH ×3 (06:51→17:25)
[2018-06-13] MEDS: Budesonide 0.5 mg/2 ml Inhal Susp UD IH SCH ×2 (07:11→21:17)
[2018-06-13] MEDS: Albuterol-Ipratrop 3 mg / 0.5 (3 ml) UD IH SCH ×3 (07:11→21:17)
--- NOTE | 2018-06-13 09:39 | CP.PCM.PN ---
<Kasie Fernandez - Last Filed: 06/13/18 14:16> Subjective - Date & Time of Evaluation Date of Evaluation: 06/13/18 Time of Evaluation: 07:50 - Subjective Subjective: IM resident progress note for Dr. Villagomez's service Patient with no overnight acute events. Doing well with PT in tcu. Denies fever or chills. No nausea, vomiting or diarrhea. States the hip pain is intermittent. Objective - Vital Signs/Intake and Output Vital Signs (last 24 hours): Temp Pulse Resp BP Pulse Ox 97.8 F 71 20 100/62 97 06/12/18 16:00 06/12/18 17:19 06/12/18 16:00 06/13/18 08:06 06/12/18 16:00 - Medications Medications: Current Medications Albuterol/Ipratropium (Duoneb 3 Mg/0.5 Mg (3 Ml) Ud) 3 ml IH TIDRESP WILTON; Protocol Last Admin: 06/13/18 07:11 Dose: 3 ml Albuterol/Ipratropium (Duoneb 3 Mg/0.5 Mg (3 Ml) Ud) 3 ml IH Q4H PRN; Protocol PRN Reason: Cough and congestion Budesonide (Pulmicort Respules) 0.5 mg IH [id number] WILTON; Protocol Last Admin: 06/13/18 07:11 Dose: 0.5 mg Cyanocobalamin (Vitamin B12 1000 Mcg Tab) 1,000 mcg PO DAILY WILTON Last Admin: 06/12/18 09:53 Dose: 1,000 mcg Dextrose (Dextrose 50% Inj) 0 ml IV STAT PRN; Protocol PRN Reason: Hypoglycemia Protocol Diltiazem HCl (Cardizem) 30 mg PO BID WILTON; Protocol Last Admin: 06/12/18 17:19 Dose: 30 mg Fluticasone Propionate (Flonase) 1 actuation NS BID WIL[place] Folic Acid (Folic Acid) 1 mg PO DAILY WILTON; Protocol Last Admin: 06/12/18 09:51 Dose: 1 mg Furosemide (Lasix) 40 mg PO 0800,1400 WIL[place]; Protocol Last Admin: 06/13/18 08:06 Dose: 40 mg Gabapentin (Neurontin) 300 mg PO BID [facility]; Protocol Last Admin: 06/12/18 17:22 Dose: 300 mg Glimepiride (Amaryl) 4 mg PO 0800 [facility]IL[place] Last Admin: 06/13/18 08:06 Dose: 4 mg Guaifenesin/Dextromethorphan (Mucinex-Dm 600-30 Mg) 1 tab PO BID [facility]; Protocol Last Admin: 06/12/18 17:22 Dose: 1 tab Dextrose (Dextrose 5% In Water 1000 Ml) 1,000 mls @ 0 mls/hr IV .Q0M PRN; Protocol PRN Reason: Hypoglycemia Protocol Insulin Detemir (Levemir) 22 unit SC HS [facility]; Protocol Last Admin: 06/12/18 21:51 Dose: Not Given Insulin Human Lispro (Humalog) 6 units SC AC [facility]; Protocol Last Admin: 06/13/18 06:51 Dose: Not Given Insulin Human Lispro (Humalog Med) 0 units SC ACHS [facility]; Protocol Last Admin: 06/13/18 06:51 Dose: Not Given Lisinopril (Zestril) 2.5 mg PO DAILY [facility]; Protocol Last Admin: 06/12/18 09:53 Dose: 2.5 mg Lorazepam (Ativan) 1 mg PO BID PRN; Protocol PRN Reason: Anxiety Last Admin: 06/12/18 22:27 Dose: 1 mg Magnesium Oxide (Mag-Ox) 400 mg PO TID [facility]; Protocol Last Admin: 06/12/18 17:21 Dose: 400 mg Metformin HCl (Glucophage) 1,000 mg PO BID [facility] Last Admin: 06/12/18 17:20 Dose: 1,000 mg Montelukast Sodium (Singulair) 10 mg PO HS [facility]; Protocol Last Admin: 06/12/18 22:26 Dose: 10 mg Oxycodone/Acetaminophen (Percocet 10/325 Mg Tab) 1 tab PO Q6H PRN; Protocol PRN Reason: Pain, severe (8-10) Last Admin: 06/13/18 06:31 Dose: 1 tab Pantoprazole Sodium (Protonix Ec Tab) 40 mg PO HS [facility]; Protocol Last Admin: 06/12/18 22:26 Dose: 40 mg Ropinirole HCl (Requip) 0.5 mg PO HS [facility]; Protocol Last Admin: 06/12/18 22:27 Dose: 0.5 mg Sodium Chloride ([place] Nasal [place]) 0 ml NS TID [facility] Spironolactone (Aldactone) 25 mg PO BID [facility]; Protocol Last Admin: 06/12/18 17:18 Dose: 25 mg Trazodone HCl (Desyrel) 150 mg PO HS [facility]; Protocol Last Admin: 06/12/18 22:26 Dose: 150 mg Warfarin Sodium (Coumadin) 7.5 mg PO 1800 [place] - Labs Labs: 06/12/18 06:30 06/12/18 06:30 PT 26.9 SECONDS (9.4-12.5) H 06/12/18 06:30 INR 2.38 06/12/18 06:30 - Constitutional Appears: No Acute Distress, Chronically Ill - Head Exam Head Exam: ATRAUMATIC, NORMAL INSPECTION, NORMOCEPHALIC - Eye Exam Eye Exam: EOMI, Normal appearance, PERRL. absent: Scleral icterus Pupil Exam: NORMAL ACCOMODATION - ENT Exam ENT Exam: Mucous Membranes Moist - Neck Exam Neck Exam: Normal Inspection - Respiratory Exam Respiratory Exam: Clear to Ausculation Bilateral, NORMAL BREATHING PATTERN. abs ent: Rales, Rhonchi, Wheezes, Respiratory Distress, Stridor - Cardiovascular Exam Cardiovascular Exam: Irregular Rhythm, +S1, +S2. absent: Bradycardia, Tachycar anderson, Clicks, Diastolic murmur, Gallop, REGULAR RHYTHM, JVD, RRR, Rubs, Murmur - GI/Abdominal Exam GI & Abdominal Exam: Soft, Normal Bowel Sounds. absent: Distended, Firm, Guarding, Rigid, Tenderness, Organomegaly, Rebound Additional comments: + obese abdomen. 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 Plan: Continue with PT. Continue with po Lasix 40 mg bid. Continue with basal insulin and pre-meal insulin. Also on metformin and glimeperide for the diabetes. Con tinue with aldactone, and lisinopril. Continue Cardizem for afib and coumadin 8.5 mg. Continue with duonebs and singulair for COPD. Continue with folic acid, and vitamin b12 po. Continue with Neurontin for neuropathy. On mag po for hypomagnesemia. On trazodone hs for depression and requip hs for movement disorder. Protonix is for gerd. Patient seen, examined and case discussed with Dr. Villagomez. <Axel Villagomez S - Last Filed: 06/14/18 21:11> Objective - Vital Signs/Intake and Output Vital Signs (last 24 hours): Temp Pulse Resp BP Pulse Ox 97.9 F 70 18 130/75 93 L 06/13/18 16:00 06/13/18 16:00 06/13/18 16:00 06/14/18 10:15 06/13/18 16:00 - Labs Labs: 06/12/18 06:30 06/12/18 06:30 PT 25.9 SECONDS (9.4-12.5) H 06/14/18 04:05 INR 2.29 06/14/18 04:05 Assessment and Plan - Assessment and Plan (Free Text) Plan: Pt seen and examined by me. This is a late entry.I have reviewed the note of the medical records supervisor and I agree with it. I have discussed the assessment and plan with the resident. I have reviewed the medications and the last labs.
[2018-06-13] MEDS: Magnesium Oxide 400 mg Tab UD PO SCH ×3 (10:40→17:21)
[2018-06-13] MEDS: guaiFENesin-DM 600-30 mg ER Tab PO SCH ×2 (10:40→17:21)
[2018-06-13 10:47] VITALS: PULSE 70
[2018-06-13 10:51] LABS: INR 1.87; PROTHROMBIN TIME 21.1 SECONDS (9.4-12.5)
--- NOTE | 2018-06-13 11:00 | PN ---
DATE: 06/13/2018 PULMONARY PROGRESS NOTE REFERRING PHYSICIAN: Dr. Villagomez. SUBJECTIVE: The patient is seen sitting in armchair. No acute distress. No overnight events reported. No headache, rhinitis, cough, shortness of breath, chest pain, abdominal pain, nausea, vomiting, diarrhea, leg pain or leg swelling reported. The patient reports feeling well and shortness of breath has improved. OBJECTIVE: VITAL SIGNS: Blood pressure 100/62, pulse 71, temperature 97.8 and oxygen saturation 97%. GENERAL: No acute distress. HEENT: Moist mucous membranes. Crowded airway. Mallampati score of 4. NECK: Supple. No JVD. Short and thick. LUNGS: Fair airflow bilaterally. CARDIOVASCULAR: S1 and S2. ABDOMEN: Soft and nontender. No distension. EXTREMITIES: No bilateral lower extremity edema. NEUROLOGICAL: Awake, alert and verbal. Following commands. MEDICATIONS: Reviewed. DuoNeb 3 mL inhalation every 4 hours p.r.n., DuoNeb 3 mL inhalation three times a day, Pulmicort 0.5 mg inhalation every 12 hours, vitamin B12 of 1000 mcg daily, Cardizem 30 mg twice a day, Flonase nasal spray twice a day, folic acid 1 mg daily, Lasix 40 mg twice a day, Neurontin 300 mg twice a day, glimepiride 4 mg daily, Mucinex DM twice a day, Levemir 22 units subcutaneous at bedtime, Humalog 6 units subcutaneously a.c., Humalog sliding scale a.c. and at bedtime, Zestril 2.5 mg daily, Ativan 1 mg twice a day p.r.n., magnesium oxide 400 mg three times a day, metformin 1000 mg twice a day, Singulair 10 mg at bedtime, Percocet 10/325 mg every 6 hours p.r.n., Protonix 40 mg at bedtime, Requip 0.5 mg at bedtime, [place] nasal spray three times a day, Aldactone 25 mg twice a day, trazodone 150 mg at bedtime and Coumadin 7.5 mg daily. LABORATORY DATA: Reviewed. POC glucose 138. IMPRESSION AND PLAN: Congestive heart failure exacerbation; status post mechanical fall; right hip pain with history of prosthetic hip; anemia; chronic obstructive pulmonary disease has oxygen at home; cardiomyopathy; coronary artery disease, status post coronary artery bypass graft; obstructive sleep apnea history, found to be resolved on recent sleep study as the patient has had significant weight loss; atrial fibrillation; diabetes mellitus currently on anticoagulation therapy; depression; anxiety; diabetic neuropathy and chronic back pain. Pulmonary point of view, continue inhaled bronchodilators and gastric prophylaxis. Continue diuretics, physical therapy and Cardiology followup. We recommend the patient have full pulmonary function test to evaluate chronic lung disease as outpatient. This patient was seen and examined with Dr. Godinez. Discussed assessment and plan as described above. This patient was seen and examined with Francisco Yates, nurse practitioner. Discussed assessment and plan as described above. Thank you for this consult. We will follow with you. Francisco Yates APN Tia Godinez MD
[2018-06-13] MEDS: Fluticasone Nasal 50 mcg/Spray NS SCH ×2 (13:34→17:20)
[2018-06-13 16:49] VITALS: RESP 18; TEMP 97.9; O2SAT 93
[2018-06-13] MEDS ORDERED: WARFARIN PO SCH (18:00)
[2018-06-13] MEDS: Pantoprazole 40 mg EC Tab PO SCH (21:19)
[2018-06-13] MEDS: Insulin Detemir 100 units/ml Vial (Levemir) SC SCH (21:26)
[2018-06-14 04:32] LABS: INR 2.29; PROTHROMBIN TIME 25.9 SECONDS (9.4-12.5)
[2018-06-14] MEDS: Insulin Lispro 1 UNITS/0.01 ML SC SCH ×2 (06:39→12:20)
[2018-06-14] MEDS: Insulin Lispro (humaLOG) MEDIUM Coverage SC SCH ×2 (06:39→12:20)
[2018-06-14] MEDS: Budesonide 0.5 mg/2 ml Inhal Susp UD IH SCH (07:21)
[2018-06-14] MEDS: Albuterol-Ipratrop 3 mg / 0.5 (3 ml) UD IH SCH ×2 (07:21→13:08)
--- NOTE | 2018-06-14 08:09 | PN ---
DATE: 06/13/2018 LOCATION: The patient is in room 321, bed 1. REASON FOR CONSULTATION AND FOLLOWUP: Nonobstructive coronary artery disease, paroxysmal atrial fibrillation, radiofrequency ablation, history of nonischemic cardiomyopathy, AICD insertion. SUBJECTIVE: The patient lying in bed comfortably without chest pain or shortness of breath. Denies palpitation. PHYSICAL EXAMINATION: VITAL SIGNS: Blood pressure 109/71, respiration 18, pulse 70, the patient is afebrile. HEENT: Head is normocephalic. Eyes, pupils normal. Conjunctivae normal. Nose and throat normal. NECK: JVP low. Carotids equal. Thorax AP diameter normal. AICD site intact. LUNGS: No significant rales. CARDIOVASCULAR: S1, S2. ABDOMEN: Protuberant. No organomegaly. EXTREMITIES: No clubbing. No cyanosis. LABORATORY DATA: WBC 6.7, hemoglobin 12.1, hematocrit 40.3, platelet 218. Random sugar 215. On 06/12/2018, sodium 139, potassium 4.6, BUN 31, creatinine 1.2, sugar 135, calcium 9.6, phosphorus 3.3 and magnesium 2.1. DIAGNOSES: History of right hip total replacement, fell down from a chair and hit the right side of the hip, since then having pain in the hip, medical treatment recommended by Dr. Capellan of Orthopedics; history of nonischemic cardiomyopathy, nonobstructive coronary artery disease, status post cardiac catheterization x3, history of morbid obesity, paroxysmal atrial fibrillation, status post radiofrequency ablation, status post automated implantable cardioverter defibrillator insertion. The patient had transluminal angioplasty of the left superficial femoral artery and popliteal trunk, history of deep venous thrombosis, catheter-based treatment of the right deep venous thrombosis of the lower extremity; history of chronic obstructive pulmonary disease, congestive heart failure, morbid obesity, deconditioning. PLAN: Continue physical therapy. The patient on spironolactone, Amaryl, Ativan, Cardizem, warfarin, Desyrel 150 mg, DuoNeb hand nebulizer therapy, folic acid 1 mg daily, metformin 1000 mg b.i.d., furosemide 40 mg b.i.d., insulin as ordered, mag oxide 400 mg p.o. t.i.d., Neurontin 300 mg p.o. b.i.d., Zestril 2.5 mg daily. We will continue to follow. the patient to lose weight. Tia Cabello MD
[2018-06-14] MEDS: Fluticasone Nasal 50 mcg/Spray NS SCH (10:13)
[2018-06-14] MEDS: guaiFENesin-DM 600-30 mg ER Tab PO SCH (10:14)
[2018-06-14] MEDS: Magnesium Oxide 400 mg Tab UD PO SCH (10:14)
[2018-06-14 10:18] VITALS: BP 130/75
--- NOTE | 2018-06-14 11:23 | CP.PCM.DIS ---
<Kasie Fernandez - Last Filed: 06/14/18 15:38> Provider - Provider Date of Admission: 06/10/18 15:37 Attending physician: Axel Villagomez MD Primary care physician: Axel Villagomez MD Consults: 06/10/18 16:02 Orthopedic Consult Routine Comment: Consulting Provider: Wes Capellan Consulting Physician: Wes Capellan Reason for Consult: RIGHT HIP PAIN, R/O HIP REPLACEMENT 06/10/18 16:03 Cardiology Consult Routine Comment: Consulting Provider: Tia Rajan Consulting Physician: Tia Rajan Reason for Consult: CHF Pulmonology Consult Routine Comment: Consulting Provider: Tia Godinez Consulting Physician: Tia Godinez Reason for Consult: WESLY on CPAP 06/10/18 16:39 Social Work Referral Routine Comment: edson score of 13 Physician Instructions: Reason For Exam: eval 06/10/18 16:46 Transition In Care/Readmission Reduction Routine Comment: Physician Instructions: Reason For Exam: CHF Time Spent in preparation of Discharge (in minutes): 45 Diagnosis - Discharge Diagnosis (1) Acute kidney injury Status: Resolved (2) CHF exacerbation Status: Resolved (3) Hyperglycemia Status: Acute (4) Supratherapeutic INR Status: Resolved (5) Atrial fibrillation Status: Chronic (6) Bipolar 2 disorder, major depressive episode Status: Chronic (7) COPD (chronic obstructive pulmonary disease) Status: Chronic (8) Diabetes Status: Chronic (9) Hip pain Status: Chronic (10) Obstructive sleep apnea Status: Chronic (11) Hypokalemia Status: Resolved (12) Hypomagnesemia Status: Chronic Hospital Course - Lab Results Lab Results: Most Recent Lab Values WBC 6.7 10^3/uL (4.5-11.0) 06/12/18 06:30 RBC 4.80 10^6/uL (3.5-6.1) 06/12/18 06:30 Hgb 12.1 g/dL (14.0-18.0) L 06/12/18 06:30 Hct 40.3 % (42.0-52.0) L 06/12/18 06:30 MCV 84.0 fl (80.0-105.0) 06/12/18 06:30 MCH 25.2 pg (25.0-35.0) 06/12/18 06:30 MCHC 30.0 g/dl (31.0-37.0) L 06/12/18 06:30 RDW 18.5 % (11.5-14.5) H 06/12/18 06:30 Plt Count 218 10^3/uL (120.0-450.0) 06/12/18 06:30 MPV 9.8 fl (7.0-11.0) 06/12/18 06:30 Neut % (Auto) 71.0 % (50.0-68.0) H 06/12/18 06:30 Lymph % (Auto) 16.3 % (22.0-35.0) L 06/12/18 06:30 [place] % (Auto) 10.5 % (1.0-6.0) H 06/12/18 06:30 Eos % (Auto) 1.3 % (1.5-5.0) L 06/12/18 06:30 Baso % (Auto) 0.9 % (0.0-3.0) 06/12/18 06:30 Lymph # (Auto) 1.1 (1.2-3.4) L 06/12/18 06:30 [place] # (Auto) 0.7 (0.1-0.6) H 06/12/18 06:30 Eos # (Auto) 0.1 (0.0-0.7) 06/12/18 06:30 Baso # (Auto) 0.06 K/mm3 (0.0-2.0) 06/12/18 06:30 Absolute Neuts (auto) 4.74 (1.4-6.5) 06/12/18 06:30 PT 25.9 SECONDS (9.4-12.5) H 06/14/18 04:05 INR 2.29 06/14/18 04:05 Sodium 139 mmol/L (132-148) 06/12/18 06:30 Potassium 4.6 mmol/L (3.6-5.0) 06/12/18 06:30 Chloride 97 mmol/L (98-107) L 06/12/18 06:30 Carbon Dioxide 32 mmol/L (21-33) 06/12/18 06:30 Anion Gap 14 (10-20) 06/12/18 06:30 BUN 31 mg/dL (7-21) H 06/12/18 06:30 Creatinine 1.2 mg/dl (0.8-1.5) 06/12/18 06:30 Est GFR ( Amer) > 60 06/12/18 06:30 Est GFR (Non-Af Amer) > 60 06/12/18 06:30 POC Glucose (mg/dL) 216 mg/dL (65-110) H 06/14/18 11:10 Random Glucose 189 mg/dL (70-110) H 06/12/18 06:30 Calcium 9.6 mg/dL (8.4-10.5) 06/12/18 06:30 Phosphorus 3.6 mg/dL (2.5-4.5) 06/12/18 06:30 Magnesium 2.1 mg/dL (1.7-2.2) 06/12/18 06:30 - Hospital Course Hospital Course: Patient is a 57 y/o Male with PMHx of 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 Patient was admitted with systolic CHF exacerbation, patient was diuresed, with Lasix. Patient was also placed on milrionone drip by sewing machine bobbin winder. Troponin was indeterminate x3. Patient also stated he fell at home, rib and knee x-ray were normal. Hip x-ray showed possible displaced right prosthetic screw, however CT of the hip was normal. Orthopedic also evaluated patient and recommended no surgical intervention. Patient was transferred to TCU for PT. Patient's hp pain and lower extremities edema improved while in TCU. Patient is to be discharged home and to follow up with Dr. Villagomez next week. Diet: 2 gram sodium, heart healthy, moderate carbohydrate diet. Activity: resume baseline activity as tolerated. - Date & Time of H&P Date of H&P: 06/11/18 Time of H&P: 13:04 Discharge Exam - Head Exam Head Exam: ATRAUMATIC, NORMAL INSPECTION, NORMOCEPHALIC - Eye Exam Eye Exam: EOMI, Normal appearance, PERRL. absent: Scleral icterus Pupil Exam: NORMAL ACCOMODATION - ENT Exam ENT Exam: Mucous Membranes Moist - Neck Exam Neck exam: Normal Inspection - Respiratory Exam Respiratory Exam: Clear to PA & Lateral, NORMAL BREATHING PATTERN, UNREMARKABLE. absent: Prolonged Expiratory Phase, Rales, Rhonchi, Wheezes, Respiratory Distress, Stridor - Cardiovascular Exam Cardiovascular Exam: Irregular Rhythm, +S1, +S2. absent: Bradycardia, Tachycardia, Diastolic murmur, Gallop, REGULAR RHYTHM, JVD, RRR, Rubs, Systolic Murmur - GI/Abdominal Exam GI & Abdominal Exam: Normal Bowel Sounds, Unremarkable. absent: Distended, Firm, Rebound, Rigid, Soft, Tenderness Additional comments: Obese abdomen. - Extremities Exam Extremities exam: pedal edema (+ 1, with chronic venous stasis.) - Back Exam Back exam: NORMAL INSPECTION - Neurological Exam Neurological exam: Alert, Oriented x3 - Psychiatric Exam Psychiatric exam: Normal Affect, Normal Mood - Skin Skin Exam: Dry, Intact, Normal Color Discharge Plan - Discharge Medications Prescriptions: diltiaZEM [Cardizem] 30 mg PO BID 30 Days #60 tab Fluticasone Nasal [Flonase] 1 actuation NS BID #1 bottle Furosemide [Lasix] 40 mg PO BID 30 Days #60 tab Gabapentin [Neurontin] 300 mg PO BID 30 Days #60 cap Glimepiride [amaRYL] 4 mg PO 0800 30 Days #30 tab Lisinopril [Zestril] 2.5 mg PO DAILY 30 Days #30 tab MetFORMIN [glucoPHAGE] 1,000 mg PO BID 30 Days #60 tab Montelukast [Singulair] 10 mg PO HS 30 Days #30 tab rOPINIRole [Requip] 0.5 mg PO HS 30 Days #30 tab Spironolactone [Aldactone] 25 mg PO BID 30 Days #60 tab traZODone [Desyrel] 150 mg PO HS 30 Days #30 tab Warfarin [Coumadin] 8.5 mg PO 1800 14 Days #14 tab - Follow Up Plan Condition: GOOD Disposition: HOME/ ROUTINE Patient education suggested?: Yes Additional Instructions: Please follow up with Dr. Villagomez as scheduled continue with all your home medications Please follow up to get your INR checked on Sunday Please return if the symptoms returns or call 911. Referrals: Axel Villagomez MD [Primary Care Provider] - <Axel Villagomez - Last Filed: 06/14/18 20:25> Provider - Provider Date of Admission: 06/10/18 15:37 Attending physician: Axel Villagomez MD Primary care physician: Axel Villagomez MD Consults: 06/10/18 16:02 Orthopedic Consult Routine Comment: Consulting Provider: Wes Capellan Consulting Physician: Wes Capellan Reason for Consult: RIGHT HIP PAIN, R/O HIP REPLACEMENT 06/10/18 16:03 Cardiology Consult Routine Comment: Consulting Provider: Tia Rajan Consulting Physician: Tia Rajan Reason for Consult: CHF Pulmonology Consult Routine Comment: Consulting Provider: Tia Godinez Consulting Physician: Tia Godinez Reason for Consult: WESLY on CPAP 06/10/18 16:39 Social Work Referral Routine Comment: edson score of 13 Physician Instructions: Reason For Exam: eval 06/10/18 16:46 Transition In Care/Readmission Reduction Routine Comment: Physician Instructions: Reason For Exam: CHF Hospital Course - Lab Results Lab Results: Most Recent Lab Values WBC 6.7 10^3/uL (4.5-11.0) 06/12/18 06:30 RBC 4.80 10^6/uL (3.5-6.1) 06/12/18 06:30 Hgb 12.1 g/dL (14.0-18.0) L 06/12/18 06:30 Hct 40.3 % (42.0-52.0) L 06/12/18 06:30 MCV 84.0 fl (80.0-105.0) 06/12/18 06:30 MCH 25.2 pg (25.0-35.0) 06/12/18 06:30 MCHC 30.0 g/dl (31.0-37.0) L 06/12/18 06:30 RDW 18.5 % (11.5-14.5) H 06/12/18 06:30 Plt Count 218 10^3/uL (120.0-450.0) 06/12/18 06:30 MPV 9.8 fl (7.0-11.0) 06/12/18 06:30 Neut % (Auto) 71.0 % (50.0-68.0) H 06/12/18 06:30 Lymph % (Auto) 16.3 % (22.0-35.0) L 06/12/18 06:30 [place] % (Auto) 10.5 % (1.0-6.0) H 06/12/18 06:30 Eos % (Auto) 1.3 % (1.5-5.0) L 06/12/18 06:30 Baso % (Auto) 0.9 % (0.0-3.0) 06/12/18 06:30 Lymph # (Auto) 1.1 (1.2-3.4) L 06/12/18 06:30 [place] # (Auto) 0.7 (0.1-0.6) H 06/12/18 06:30 Eos # (Auto) 0.1 (0.0-0.7) 06/12/18 06:30 Baso # (Auto) 0.06 K/mm3 (0.0-2.0) 06/12/18 06:30 Absolute Neuts (auto) 4.74 (1.4-6.5) 06/12/18 06:30 PT 25.9 SECONDS (9.4-12.5) H 06/14/18 04:05 INR 2.29 06/14/18 04:05 Sodium 139 mmol/L (132-148) 06/12/18 06:30 Potassium 4.6 mmol/L (3.6-5.0) 06/12/18 06:30 Chloride 97 mmol/L (98-107) L 06/12/18 06:30 Carbon Dioxide 32 mmol/L (21-33) 06/12/18 06:30 Anion Gap 14 (10-20) 06/12/18 06:30 BUN 31 mg/dL (7-21) H 06/12/18 06:30 Creatinine 1.2 mg/dl (0.8-1.5) 06/12/18 06:30 Est GFR ( Amer) > 60 06/12/18 06:30 Est GFR (Non-Af Amer) > 60 06/12/18 06:30 POC Glucose (mg/dL) 216 mg/dL (65-110) H 06/14/18 11:10 Random Glucose 189 mg/dL (70-110) H 06/12/18 06:30 Calcium 9.6 mg/dL (8.4-10.5) 06/12/18 06:30 Phosphorus 3.6 mg/dL (2.5-4.5) 06/12/18 06:30 Magnesium 2.1 mg/dL (1.7-2.2) 06/12/18 06:30 - Hospital Course Hospital Course: Pt seen and examined by me. I have reviewed the note of the medical sales associate and I agree with it. I have discussed the assessment and plan with the resident. I have reviewed the medications and the last labs.
--- NOTE | 2018-06-14 11:46 | PN ---
DATE: 06/14/2018 PULMONARY PROGRESS NOTE REFERRING PHYSICIAN: Dr. Mitchell. SUBJECTIVE: The patient is seen sitting in arm chair in room. No acute distress. No overnight events reported. The patient reports feeling well today. No headache, rhinitis, cough, shortness of breath, chest pain, abdominal pain, nausea, vomiting, diarrhea or leg pain reported. OBJECTIVE: GENERAL: No acute distress. VITAL SIGNS: Blood pressure 130/75, pulse 70, temperature 97.9, and oxygen saturation 93%. HEENT: Moist mucous membranes. Crowded airway. Mallampati score 4. NECK: Supple. No JVD. Short and thick. LUNGS: Fair airflow bilaterally. CARDIOVASCULAR: S1 and S2. ABDOMEN: Soft and nontender. No distension. EXTREMITIES: Positive bilateral lower extremity edema. NEUROLOGICAL: Awake, alert, and verbal. Following commands. MEDICATIONS: Reviewed. DuoNeb 3 mL inhalation every 4 hours p.r.n., DuoNeb 3 mL inhalation three times a day, Pulmicort 0.5 mg inhalation every 12 hours, vitamin B12 of 1000 mcg daily, Cardizem 30 mg twice a day, Flonase nasal spray twice a day, folic acid 1 mg daily, Lasix 40 mg twice a day, Neurontin 300 mg twice a day, glimepiride 4 mg daily, Mucinex DM 1 tablet twice a day, Levemir 22 units subcutaneous at bedtime, Humalog sliding scale a.c. and at bedtime, Humalog 6 units in the morning, lisinopril 2.5 mg daily, Ativan 1 mg twice a day p.r.n., magnesium oxide 400 mg three times a day, metformin 1000 mg twice a day, Singulair 10 mg at bedtime, Percocet 10/325 mg every 6 hours p.r.n., Protonix 40 mg at bedtime, Requip 0.5 mg at bedtime, [place] Nasal [place] three times a day, Aldactone 25 mg twice a day, trazodone 150 mg at bedtime, and Coumadin 8.5 mg daily. LABORATORY DATA: Reviewed. PT 25.9 and INR 2.29. POC glucose 175. IMPRESSION AND PLAN: Congestive heart failure exacerbation; status post mechanical fall; right hip pain with history of prosthetic hip; chronic obstructive pulmonary disease, has oxygen at home; anemia; cardiomyopathy; coronary artery disease, status post coronary artery bypass graft; has history of obstructive sleep apnea syndrome, recent sleep study showed no sleep apnea; the patient reports having lost significant amount of weight; atrial fibrillation; diabetes mellitus; depression; anxiety; diabetic neuropathy and chronic back pain. Pulmonary point of view, the patient is currently on anticoagulation therapy. Continue inhaled bronchodilators and gastric prophylaxis. Continue diuretics and Cardiology followup. We recommend the patient have full pulmonary function test as outpatient to evaluate chronic lung disease and optimize medications. Fall precautions. This patient was seen and examined with Dr. Godinez. Discussed assessment and plan as described above. This patient was seen and examined with Francisco Yates, nurse practitioner. Discussed assessment and plan as described above. Thank you for this consult. We will follow with you. Francisco Yates APN Tia Godinez MD
--- NOTE | 2018-06-14 15:26 | PN ---
DATE: 06/14/2018 LOCATION: The patient in room 321, bed 1. REASON FOR CONSULTATION AND FOLLOWUP: Nonobstructive coronary artery disease, paroxysmal atrial fibrillation, radiofrequency ablation, history of nonischemic cardiomyopathy, AICD insertion. SUBJECTIVE: The patient is sitting in chair without any cardiac symptoms. No chest pain, shortness of breath or palpitation. He is also getting physical therapy without any chest pain. PHYSICAL EXAMINATION: VITAL SIGNS: Blood pressure is 130/75, respiration 18, the patient is afebrile, pulse is 70 per minute. HEENT: Head is normocephalic. Eyes, pupils normal. Conjunctivae normal. Nose and throat normal. NECK: JVP low. Carotids equal. THORAX: AP diameter normal. LUNGS: Clear. CARDIOVASCULAR: S1, S2. ABDOMEN: Protuberant. No organomegaly. EXTREMITIES: No clubbing. No cyanosis. LABORATORY DATA: WBC 6.7, hemoglobin 12.1, hematocrit 40.3, platelet 218. Random sugar 216. Sodium 139, potassium 4.6, BUN 31, creatinine 1.2. DIAGNOSES: History of right hip total replacement, fell down from a chair and hit the right side. He was having hip pain, now the pain is better; history of nonischemic cardiomyopathy; nonobstructive coronary artery disease, status post cardiac catheterization x3; morbid obesity; paroxysmal atrial fibrillation; status post radiofrequency ablation; automated implantable cardioverter defibrillator insertion; angioplasty of left superficial femoral artery and popliteal trunk; history of deep venous thrombosis; catheter-based treatment of the right deep venous thrombosis of the lower extremity; chronic obstructive pulmonary disease; congestive heart failure in the past; morbid obesity; deconditioning. PLAN: Continue the medications, spironolactone 25 b.i.d., glimepiride 4 mg daily, Cardizem 30 b.i.d., warfarin 8.5 daily, trazodone 150 h.s., DuoNeb hand nebulizer therapy, folic acid 1 mg daily, metformin 1000 mg b.i.d., furosemide 40 mg b.i.d., magnesium 400 mg p.o. t.i.d., Neurontin 300 mg p.o. b.i.d., Protonix 40 mg at bedtime, lisinopril 2.5 mg daily. The patient advised to lose weight. Tia Cabello MD [facility] # [id number]
--- NOTE | 2018-06-15 01:19 | DS ---
SUBJECTIVE: The patient was seen and examined. I do agree with the note of the medical manager. I was involved in the plan of care. The patient is currently comfortable. He is ambulating. He had acute congestive heart failure secondary to systolic dysfunction that has improved. His acute kidney injury has improved. He had hypoglycemia that is better with the medication that was adjusted for his diabetes. He has had atrial fibrillation and he is anticoagulation. He has chronic obstructive pulmonary disease and he has home oxygen that has been set up for him. The patient has obstructive sleep apnea. His hypokalemia and hypomagnesemia have improved as well. He is going to follow up with me as an outpatient in the office. The patient was educated regarding his medications and the importance of taking his medications. Axel Villagomez MD
== END 2018-06-14 13:16 | disposition home or self-care (01) | DRG 292 ==
LOC: TRCU 15:37
PROVIDERS: ADMIT Internal Medicine Nephrology; ATTEND Internal Medicine Nephrology
PROC: 3E0F7GC Introduction of Other Therapeutic Substance into Respiratory Tract, Via Natural or Artificial Opening (ICD-10-PCS; 2018-06-10)
PROC: F07Z9FZ Gait Training/Functional Ambulation Treatment using Assistive, Adaptive, Supportive or Protective Equipment (ICD-10-PCS; principal; 2018-06-11)
PROC: F08Z4FZ Home Management Treatment using Assistive, Adaptive, Supportive or Protective Equipment (ICD-10-PCS; 2018-06-11)
DX: I11.0 Hypertensive heart disease with heart failure (principal); F31.81 Bipolar II disorder; I50.23 Acute on chronic systolic (congestive) heart failure; I25.10 Atherosclerotic heart disease of native coronary artery without angina pectoris; I25.5 Ischemic cardiomyopathy; J44.9 Chronic obstructive pulmonary disease, unspecified; G47.33 Obstructive sleep apnea (adult) (pediatric); E11.40 Type 2 diabetes mellitus with diabetic neuropathy, unspecified; E11.65 Type 2 diabetes mellitus with hyperglycemia; G25.81 Restless legs syndrome; I48.0 Paroxysmal atrial fibrillation; I87.2 Venous insufficiency (chronic) (peripheral); S70.01XD Contusion of right hip, subsequent encounter; W01.0XXD Fall on same level from slipping, tripping and stumbling without subsequent striking against object, subsequent encounter; K21.9 Gastro-esophageal reflux disease without esophagitis; G89.29 Other chronic pain; E83.42 Hypomagnesemia; D64.9 Anemia, unspecified; E66.01 Morbid (severe) obesity due to excess calories; Z99.81 Dependence on supplemental oxygen; Z79.4 Long term (current) use of insulin; Z95.1 Presence of aortocoronary bypass graft; Z95.810 Presence of automatic (implantable) cardiac defibrillator; Z98.84 Bariatric surgery status; Z96.641 Presence of right artificial hip joint; Z79.01 Long term (current) use of anticoagulants; Z86.718 Personal history of other venous thrombosis and embolism; Z95.5 Presence of coronary angioplasty implant and graft; Z87.891 Personal history of nicotine dependence

== ENCOUNTER 2018-07-27 10:50 | Inpatient (IN) | payer MEDICARE, OTHER ==
[2018-07-27 10:50] VITALS: PULSE 74
[2018-07-27 11:02] VITALS: BMI 41.0
[2018-07-27] MEDS ORDERED: Albuterol-Ipratrop 3 mg / 0.5 (3 ml) UD IH STA (11:02)
--- NOTE | 2018-07-27 11:12 | ED PDOC ---
Arrival/HPI - General Chief Complaint: Shortness Of Breath Time Seen by Provider: 07/27/18 10:57 Historian: Patient - History of Present Illness Narrative History of Present Illness (Text): 07/27/18 11:06 58 year old male, whose past medical history includes end-stage COPD (on home O2 2L), systolic CHF (last EF 36%, s/p PPM and AICD placement), WESLY, CAD (s/p PTCA), DM2, AFib, and DVT ( on Coumadin), presents to the emergency department complaining of chest pain and shortness of breath with white sputum and wheezing that began last night. Patient reports he tried his Oxygen at home with no releif, so he diecided to come to the Emergency room. Patient quit smoking 20 years ago. Patient denies any fever, chills, nausea, vomiting, diarrhea, urinary symptoms, back pain, neck pain, headache, dizziness, or any other complaints. PMD: Dr. Villagomez Time/Duration: Other (last night) Symptom Onset: Gradual Symptom Course: Unchanged Activities at Onset: Light Context: Home Associated Symptoms (Text): 07/27/18 11:19 Chest pain shortness of breath and wheezing and cough with white sputum began last evening. Past Medical History - Provider Review Nursing Documentation Reviewed: Yes - Infectious Disease Hx of Infectious Diseases: None - Tetanus Immunization Tetanus Immunization: Unknown - Cardiac Hx Cardiac Disorders: Yes Hx Congestive Heart Failure: Yes Hx Hypertension: Yes - Pulmonary Hx Chronic Obstructive Pulmonary Disease (COPD): Yes - Neurological Hx Neurological Disorder: Yes Hx Dizziness: Yes - HEENT Hx HEENT Disorder: Yes Hx Blind: Yes (HX eye sugery) Hx Deafness: Yes - Renal Hx Renal Disorder: No - Endocrine/Metabolic Hx Diabetes Mellitus Type 2: Yes - Hematological/Oncological Hx Blood Disorders: No - Integumentary Hx Dermatological Disorder: No - Musculoskeletal/Rheumatological Hx Falls: Yes (s/p fall prior to admission) - Gastrointestinal Hx Gastrointestinal Disorders: Yes (gastric bypass surgery) Hx Gastroesophageal Reflux: Yes - Genitourinary/Gynecological Hx Reproductive Disorders: No - Psychiatric Hx Psychophysiologic Disorder: Yes Hx Anxiety: Yes Hx Bipolar Disorder: Yes Hx Depression: Yes Hx Substance Use: No - Past Surgical History Past Surgical History: Non-Contributing - Surgical History Hx Cardiac Catheterization: Yes Hx Coronary Stent: Yes Hx Gastric Bypass Surgery: Yes - Anesthesia Hx Anesthesia: Yes Hx Anesthesia Reactions: No Hx Malignant Hyperthermia: No - Suicidal Assessment Feels Threatened In Home Enviroment: No Family/Social History - Physician Review Nursing Documentation Reviewed: Yes Family/Social History: No Known Family HX Smoking Status: Former Smoker (Quit smoking 20 years ago) Hx Alcohol Use: No Hx Substance Use: No Hx Substance Use Treatment: No Allergies/Home Meds Allergies/Adverse Reactions: Allergies quetiapine fumarate [From Seroquel] Adverse Reaction (Verified 05/04/18 17:44) ANAPHYLAXIS wild berries Allergy (Intermediate, Uncoded 05/04/18 17:44) RASH Review of Systems - Physician Review All systems were reviewed & negative as marked: Yes - Review of Systems Constitutional: absent: Fevers, Other (chills) Respiratory: SOB, Cough, Sputum, Wheezing Cardiovascular: Chest Pain. absent: Palpitations, Syncope Gastrointestinal: absent: Abdominal Pain, Diarrhea, Nausea, Vomiting Genitourinary Male: absent: Dysuria, Frequency, Hematuria Musculoskeletal: absent: Back Pain, Neck Pain Neurological: absent: Headache, Dizziness Physical Exam Vital Signs Reviewed: Yes Temperature: Afebrile Blood Pressure: Normal Pulse: Regular Respiratory Rate: Normal Appearance: Positive for: Well-Appearing, Non-Toxic, Uncomfortable, Other (Morbidly obese ) Pain Distress: None Mental Status: Positive for: Alert and Oriented X 3 - Systems Exam Head: Present: Atraumatic, Normocephalic Pupils: Present: PERRL Extroacular Muscles: Present: EOMI Conjunctiva: Present: Normal Mouth: Present: Moist Mucous Membranes Pharnyx: No: ERYTHEMA, EXUDATE, TONSILS ENLARGED Neck: Present: Normal Range of Motion Respiratory/Chest: Present: Wheezes (mild wheezing bilaterally ), Decreased Breath Sounds. No: Respiratory Distress, Accessory Muscle Use, Rales, Retracting, Rhonchi, Tachypneic, Tender to Palpation Cardiovascular: Present: Regular Rate and Rhythm, Normal S1, S2. No: Murmurs Abdomen: No: Tenderness, Distention, Peritoneal Signs, Rebound, Guarding Back: Present: Normal Inspection Upper Extremity: Present: Normal Inspection. No: Cyanosis, Edema Lower Extremity: Present: Edema (Trace bilateral LE edema ). No: CALF TENDERNESS, Tenderness Neurological: Present: GCS=15, CN II-XII Intact, Speech Normal, Motor Func Grossly Intact Skin: Present: Warm, Dry, Normal Color. No: Rashes Psychiatric: Present: Alert, Oriented x 3, Normal Insight, Normal Concentration Medical Decision Making ED Course and Treatment: 07/27/18 11:13 Impression: 58 year old male presents complaining of chest pain, shortness of breath with white sputum, and wheezing that began last night. Plan: -- VBG -- EKG -- Labs -- Chest X-ray -- Duoneb, Solu-medrol -- O2 via Nasal Cannula -- Reassess and disposition Prior Visits: Notes and results from previous visits were reviewed. Progress Notes: 07/27/18 11:20 EKG is pacing rate approximately 70. Similar to April 11, 2018 07/27/18 13:17 Discussed with . - Lab Interpretations I have reviewed the lab results: Yes - RAD Interpretation Radiology Orders: 07/27/18 11:02 CHEST PORTABLE [RAD] Stat Chest one view shows cardiomegaly pacemaker increased markings curly B-lines and CHF. Knot Saw Operator: ED Physician - EKG Interpretation Interpreted by ED Physician: Yes Type: 12 lead EKG - Medication Orders Current Medication Orders: Albuterol/Ipratropium (Duoneb 3 Mg/0.5 Mg (3 Ml) Ud) 3 ml IH STAT STA Stop: 07/27/18 11:03 Methylprednisolone (Solu-Medrol) 125 mg IVP STAT STA Stop: 07/27/18 11:03 - Scribe Statement The provider has reviewed the documentation as recorded by the Celeste Perez Provider Scribe Attestation: All medical record entries made by the Charlineibmadina were at my direction and personally dictated by me. I have reviewed the chart and agree that the record accurately reflects my personal performance of the history, physical exam, medical decision making, and the department course for this patient. I have also personally directed, reviewed, and agree with the discharge instructions and disposition. Disposition/Present on Arrival - Present on Arrival Any Indicators Present on Arrival: No History of DVT/PE: No History of Uncontrolled Diabetes: No Urinary Catheter: No History of Decub. Ulcer: No History Surgical Site Infection Following: None - Disposition Have Diagnosis and Disposition been Completed?: Yes Diagnosis: Elevated troponin, Congestive heart failure (CHF), Shortness of breath, COPD (chronic obstructive pulmonary disease), COPD exacerbation, Hyperglycemia Disposition: HOSPITALIZED Disposition Time: 13:18 Patient Plan: Observation, Telemetry Patient Problems: Current Active Problems Problem Status Onset Elevated troponin Acute Shortness of breath Acute COPD (chronic obstructive pulmonary disease) Chronic Congestive heart failure (CHF) Chronic Condition: FAIR Discharge Instructions (ExitCare): Heart Failure (ED) Forms: [employer] (Arabic)
--- NOTE | 2018-07-27 11:27 | RAD ---
Date of service: 07/27/2018 HISTORY: Chest pain COMPARISON: 05/18/2018 FINDINGS: LUNGS: The lungs are well inflated. There is mild pulmonary venous congestion. There is linear atelectasis in the right mid lung. PLEURA: No pleural effusions or pneumothorax. CARDIOVASCULAR: Persistent severe cardiomegaly. Stable position of left-sided dual lead permanent pacing device. No aortic atherosclerotic calcifications present. OSSEOUS STRUCTURES: Within normal limits for the patient's age. VISUALIZED UPPER ABDOMEN: Normal. OTHER FINDINGS: None. IMPRESSION: No active pulmonary disease. No acute findings. Persistent severe cardiomegaly.
[2018-07-27 11:34] LABS: BASO # 0.05 K/mm3 (0.0-2.0); BASO % 0.4 % (0.0-3.0); EOS # 0.1 (0.0-0.7); EOS % 1.1 % (1.5-5.0); HEMOGLOBIN 13.9 g/dL (14.0-18.0); LYMPH % 8.5 % (22.0-35.0); MEAN CELL VOLUME 85.1 fl (80.0-105.0); MEAN CORPUSCULAR HEMOGLOBIN 27.7 pg (25.0-35.0); MEAN CORPUSCULAR HGB CONC 32.6 g/dl (31.0-37.0); MEAN PLATELET VOLUME 10.6 fl (7.0-11.0); MONO # 0.6 (0.1-0.6); MONO % 5.5 % (1.0-6.0); RBC 5.02 10^6/uL (3.5-6.1); RED CELL DISTRIBUTION WIDTH 19.3 % (11.5-14.5); WHITE BLOOD COUNT 11.7 10^3/uL (4.5-11.0)
[2018-07-27 11:44] LABS: ALB/GLOB RATIO 1.4 (1.1-1.8); ALBUMIN 4.1 g/dL (3.0-4.8); ALT/SGPT 13 U/L (7-56); AST/SGOT 24 U/L (17-59); BLOOD UREA NITROGEN 51 mg/dL (7-21); CALCIUM 9.1 mg/dL (8.4-10.5); GFR NON-AFRICAN AMERICAN 52; INR 1.25; PARTIAL THROMBOPLASTIN TIME 30.5 Seconds (26.9-38.3); PROTHROMBIN TIME 14.1 SECONDS (9.4-12.5)
[2018-07-27 11:48] LABS: VENOUS BLOOD GAS BASE EXCESS -0.7 mmol/L (0.0-2.0); VENOUS BLOOD GAS PO2 120 mm/Hg (30-55); VENOUS BLOOD PH 7.39 (7.32-7.43)
[2018-07-27 11:55] LABS: B-TYPE NATRIURETIC PEPTIDE 1910 pg/mL (0-450); TROPONIN I 0.06 ng/mL
[2018-07-27 15:54] LABS: VENOUS BLOOD GAS BASE EXCESS -2.3 mmol/L (0.0-2.0); VENOUS BLOOD GAS PO2 118 mm/Hg (30-55); VENOUS BLOOD PH 7.43 (7.32-7.43)
[2018-07-27] MEDS ORDERED: Oxycodone/Acetaminophen 5/325 mg Tab PO PRN (15:58)
[2018-07-27] MEDS ORDERED: Oxycodone/Acetaminophen 10/325 mg Tab PO PRN (16:05)
[2018-07-27] MEDS: Albuterol-Ipratrop 3 mg / 0.5 (3 ml) UD IH SCH (19:15)
[2018-07-27] MEDS ORDERED: Pneumococcal 23-Valent Vaccine IM ONE (20:17)
[2018-07-27] MEDS: Insulin Detemir 100 units/ml Vial (Levemir) SC SCH (21:19)
[2018-07-27] MEDS: Insulin Reg-MEDIUM-Coverage SC SCH (21:21)
[2018-07-27] MEDS: MethylPREDNISolone 40 mg Vial IVP SCH (23:32)
[2018-07-27] MEDS: Insulin Regular 1 UNITS/0.01 ML ML SC SCH (23:33)
[2018-07-27] MEDS: Fluticasone Nasal 50 mcg/Spray NS SCH (23:38)
--- NOTE | 2018-07-27 23:53 | CP.PCM.PN ---
Subjective - Date & Time of Evaluation Date of Evaluation: 07/27/18 Time of Evaluation: 23:53 - Subjective Subjective: Patient had requested Ativan. He allegedly takes ativan 1 mg PO BID prn. Had no other complaints. Patient is asleep now. Medical record was reviewed. This 58 year old white male was admitted chest pain, sob, wheezing. Has PMH of COPD,CHF, EF 36%,CAD.PTCA,WESLY, atrial fibrillation, AICD,DM II,dVT , on coumadin. Objective - Vital Signs/Intake and Output Vital Signs (last 24 hours): Temp Pulse Resp BP Pulse Ox 97.9 F 88 18 118/67 96 07/27/18 17:27 07/27/18 19:59 07/27/18 19:59 07/27/18 21:28 07/27/18 17:27 Intake and Output: 07/27/18 07/28/18 18:59 06:59 Intake Total 420 Balance 420 - Medications Medications: Current Medications Albuterol/Ipratropium (Duoneb 3 Mg/0.5 Mg (3 Ml) Ud) 3 ml IH TIDRESP [facility] Last Admin: 07/27/18 19:15 Dose: Not Given Azithromycin (Zithromax) 500 mg PO DAILY [facility]; Protocol Diltiazem HCl (Cardizem) 30 mg PO BID [facility] Last Admin: 07/27/18 18:51 Dose: 30 mg Fluticasone Propionate (Flonase) 1 actuation NS BID [facility] Last Admin: 07/27/18 23:38 Dose: 1 spr Furosemide (Lasix) 40 mg IVP BID [facility] Last Admin: 07/27/18 21:28 Dose: 40 mg Gabapentin (Neurontin) 300 mg PO BID [facility]; Protocol Last Admin: 07/27/18 18:51 Dose: 300 mg Glimepiride (Amaryl) 4 mg PO 0800 [facility] Insulin Detemir (Levemir) 22 unit SC HS [facility] Last Admin: 07/27/18 21:19 Dose: 22 unit Insulin Human Regular (Humulin R Med) 0 units SC ACHS [facility]; Protocol Last Admin: 07/27/18 21:21 Dose: 3 unit Insulin Human Regular (Humulin R) 5 units SC Q8 [facility] Last Admin: 07/27/18 23:33 Dose: 5 unit Lisinopril (Zestril) 2.5 mg PO DAILY [facility] Methylprednisolone (Solu-Medrol) 20 mg IVP Q8 [facility] Last Admin: 07/27/18 23:32 Dose: 20 mg Montelukast Sodium (Singulair) 10 mg PO HS [facility] Last Admin: 07/27/18 21:19 Dose: 10 mg Oxycodone/Acetaminophen (Percocet 10/325 Mg Tab) 1 tab PO Q6H PRN PRN Reason: Pain, moderate (4-7) Last Admin: 07/27/18 16:17 Dose: 1 tab Ropinirole HCl (Requip) 0.5 mg PO HS [facility] Last Admin: 07/27/18 21:19 Dose: 0.5 mg Spironolactone (Aldactone) 25 mg PO BID [facility] Last Admin: 07/27/18 18:51 Dose: 25 mg Trazodone HCl (Desyrel) 150 mg PO HS [facility] Last Admin: 07/27/18 21:19 Dose: 150 mg Warfarin Sodium (Coumadin) 10 mg PO 1800 [facility]; Protocol - Labs Labs: 07/27/18 11:10 07/27/18 11:10 PT 14.1 SECONDS (9.4-12.5) H 07/27/18 11:10 INR 1.25 07/27/18 11:10 APTT 30.5 Seconds (26.9-38.3) 07/27/18 11:10 - Constitutional Appears: Well, No Acute Distress - Head Exam Head Exam: ATRAUMATIC, NORMAL INSPECTION, NORMOCEPHALIC Additional comments: Obese person, not in distress.Resting now. - Eye Exam Eye Exam: Normal appearance - ENT Exam ENT Exam: Normal External Ear Exam - Neck Exam Neck Exam: Normal Inspection - Respiratory Exam Respiratory Exam: NORMAL BREATHING PATTERN - Cardiovascular Exam Cardiovascular Exam: absent: JVD - GI/Abdominal Exam GI & Abdominal Exam: absent: Distended - Rectal Exam Rectal Exam: Deferred - Exam Additional comments: Deferred. - Extremities Exam Extremities Exam: Normal Inspection - Back Exam Back Exam: NORMAL INSPECTION - Neurological Exam Additional comments: ASleep - Psychiatric Exam Additional comments: Asleep - Skin Skin Exam: Normal Color Assessment and Plan - Assessment and Plan (Free Text) Assessment: Anxieyt/Agitation. COPD CHF CAD PTCA history WESLY Atrial fibrillation. S/P AICD DM II History DVT on coumadin Obesity Plan: Ativan 1 mg PO stat. Continue present management.
--- NOTE | 2018-07-28 05:37 | CARD ---
APPROVED REPORT Date of service: 07/27/2018 EKG Measurement Heart [id number] MD 80P [id number] <Conclusion> Poor data quality, interpretation may be adversely affected Ventricular paced rhythm Underlying atrial fibrillation Abnormal ECG
[2018-07-28] MEDS: Insulin Regular 1 UNITS/0.01 ML ML SC SCH ×3 (06:30→18:04)
[2018-07-28] MEDS: MethylPREDNISolone 40 mg Vial IVP SCH ×3 (06:31→22:37)
[2018-07-28] MEDS: Insulin Reg-MEDIUM-Coverage SC SCH ×4 (08:27→23:01)
[2018-07-28] MEDS: Albuterol-Ipratrop 3 mg / 0.5 (3 ml) UD IH SCH ×3 (08:40→21:03)
[2018-07-28] MEDS: Fluticasone Nasal 50 mcg/Spray NS SCH ×2 (10:03→18:06)
[2018-07-28] MEDS: Enoxaparin 120 mg Syringe SC SCH (13:55)
--- NOTE | 2018-07-28 20:39 | HP ---
DATE OF EXAM: 07/28/2018 HISTORY OF PRESENT ILLNESS: The patient is a 58-year-old male, who has come into the hospital with complaints of shortness of breath. He says that the shortness of breath started suddenly over the last 1-2 days. He was having difficulty in catching his breath. He has a history of COPD and CHF. He says that the breathing treatments have improved his symptoms. He has no complaints of any fevers or chills. No nausea. No vomiting. No abdominal pain. He has no dysuria or frequency. No nocturia. The patient says he has been compliant with his medications. He has cough that is dry. He does get milrinone at times by his accounting assistant on previous admissions. All other review of symptoms are within normal limits except what is mentioned. ALLERGIES: TO QUETIAPINE AND FUMARATE. PAST MEDICAL HISTORY: 1. COPD, on home O2. 2. CHF secondary to systolic dysfunction with an EF of 36%. 3. Pacemaker. 4. AICD. 5. Obstructive sleep apnea. 6. Coronary artery disease. 7. Diabetes, type 2. 8. Atrial fibrillation, on Coumadin. 9. DVT. 10. Morbid obesity with a BMI of 40.6. 11. Peripheral arterial disease. FAMILY HISTORY: Noncontributory. SOCIAL HISTORY: He is a former smoker. Denies alcohol or drug use. PAST SURGICAL HISTORY: Gastric bypass, left leg thrombectomy. PHYSICAL EXAMINATION: VITAL SIGNS: He has a temperature of 97.5, pulse of 70, blood pressure is 130/78, respirations 18, and O2 saturation 93%. Height is 5 feet 8 inches, weight is 267 pounds, BMI is 40.6. GENERAL: The patient is lying in bed, comfortable, and in no acute distress. HEENT: Atraumatic and normocephalic. Anicteric sclerae. Moist mucosa. [place] conjunctivae. No oral lesions. NECK: No JVD, anterior and posterior adenopathy, thyromegaly, or bruits. CARDIOVASCULAR: S1 and S2 regular. No murmurs, rubs or gallops. LUNGS: Clear to auscultation bilaterally. No wheezes, rales, or rhonchi. ABDOMEN: Bowel sounds are positive. Soft, nontender, and nondistended. No hepatosplenomegaly. No rebound and no guarding. Positive obese. EXTREMITIES: No cyanosis, clubbing, or edema. NEUROLOGIC: No facial asymmetry. Tongue is midline. No uvula deviation. Power is 5/5 upper extremities and lower extremities. Sensation intact in upper extremities and lower extremities. PSYCHIATRIC: She is awake, alert and oriented x3. No anxiety or depression. She has normal affect. GENITOURINARY: No CVA tenderness. VASCULAR: 2+ pulses in the carotid pulses and pedal pulses. SKIN: No erythema or nodules. SPINE: Shows normal curvature. LABORATORY DATA: White count of 11.7, hemoglobin 13.9, platelet count is 198, and INR is 1.25. Chemistry shows sodium is 137, creatinine is 1.4, glucose is 264, and albumin is 4.1. His fingerstick is elevated. Last fingerstick is 347. EKG shows paced rhythm with underlying AFib, heart rate of 70, and QTc is 425. Chest x-ray done shows no active pulmonary disease. There is cardiomegaly. ASSESSMENT: 1. Acute chronic obstructive pulmonary disease. 2. Coronary artery disease. 3. Peripheral arterial disease. 4. Congestive heart failure secondary to systolic dysfunction, currently stable with ejection fraction of 36%. 5. Pacemaker. 6. Automatic implantable cardioverter-defibrillator. 7. Obstructive sleep apnea. 8. Diabetes type 2, uncontrolled. 9. Atrial fibrillation, on Coumadin, subtherapeutic. PLAN: The patient is feeling better. He says that his breathing is better. His wheezing has improved. He is going to be on his Amaryl for his diabetes. He was given Ativan last night. The patient is on Coumadin, I have increased the Coumadin dosage. He is on trazodone in the evening. For his sleep and anxiety, he is on insulin. We will increase his insulin because of his steroids that the patient is on. The patient is receiving IV Lasix. I asked Cardiology and Pulmonary to evaluate the patient that he is going to continue his Requip. He is on Solu-Medrol that is being tapered. He is on lisinopril for his CHF. The patient states that he takes Ativan for his anxiety. I will place him on p.o. Ativan. He was saying that he takes 2 mg, but I discussed it with him and he is okay with taking 1 mg twice a day. We will await further input from the specialist. Axel Villagomez MD
--- NOTE | 2018-07-28 21:49 | CP.PCM.PN ---
Subjective - Date & Time of Evaluation Date of Evaluation: 07/28/18 Time of Evaluation: 21:48 - Subjective Subjective: # 22 angiocath inserted in left hand,thumb. No complaints. VSS Objective - Vital Signs/Intake and Output Vital Signs (last 24 hours): Temp Pulse Resp BP Pulse Ox 98.5 F 70 20 117/63 95 07/28/18 18:00 07/28/18 18:03 07/28/18 18:00 07/28/18 18:03 07/28/18 18:00 Intake and Output: 07/28/18 07/29/18 18:59 06:59 Intake Total 0 1680 Balance 0 1680 - Medications Medications: Current Medications Albuterol/Ipratropium (Duoneb 3 Mg/0.5 Mg (3 Ml) Ud) 3 ml IH TIDRESP [facility] Last Admin: 07/28/18 21:03 Dose: 3 ml Azithromycin (Zithromax) 500 mg PO DAILY [facility]; Protocol Last Admin: 07/28/18 10:02 Dose: 500 mg Diltiazem HCl (Cardizem) 30 mg PO BID [facility] Last Admin: 07/28/18 18:03 Dose: 30 mg Enoxaparin Sodium (Lovenox) 120 mg SC Q12H [facility]; Protocol Last Admin: 07/28/18 13:55 Dose: 120 mg Fluticasone Propionate (Flonase) 1 actuation NS BID [facility] Last Admin: 07/28/18 18:06 Dose: 2 spr Furosemide (Lasix) 40 mg IVP BID [facility] Last Admin: 07/28/18 19:37 Dose: Not Given Gabapentin (Neurontin) 300 mg PO BID [facility]; Protocol Last Admin: 07/28/18 18:03 Dose: 300 mg Glimepiride (Amaryl) 4 mg PO 0800 [facility] Last Admin: 07/28/18 10:02 Dose: 4 mg Insulin Detemir (Levemir) 22 unit SC HS [facility] Last Admin: 07/27/18 21:19 Dose: 22 unit Insulin Human Regular (Humulin R Med) 0 units SC ACHS [facility]; Protocol Last Admin: 07/28/18 18:05 Dose: 8 unit Insulin Human Regular (Humulin R) 10 units SC AC [facility] Last Admin: 07/28/18 18:04 Dose: 10 units Lisinopril (Zestril) 2.5 mg PO DAILY [facility] Last Admin: 07/28/18 10:03 Dose: 2.5 mg Lorazepam (Ativan) 1 mg PO BID [facility]; Protocol Last Admin: 07/28/18 18:04 Dose: 1 mg Methylprednisolone (Solu-Medrol) 20 mg IVP Q12 [facility] Montelukast Sodium (Singulair) 10 mg PO HS [facility] Last Admin: 07/27/18 21:19 Dose: 10 mg Oxycodone/Acetaminophen (Percocet 10/325 Mg Tab) 1 tab PO Q6H PRN PRN Reason: Pain, moderate (4-7) Last Admin: 07/27/18 16:17 Dose: 1 tab Ropinirole HCl (Requip) 0.5 mg PO HS [facility] Last Admin: 07/27/18 21:19 Dose: 0.5 mg Spironolactone (Aldactone) 25 mg PO BID [facility] Last Admin: 07/28/18 18:03 Dose: 25 mg Trazodone HCl (Desyrel) 150 mg PO HS [facility] Last Admin: 07/27/18 21:19 Dose: 150 mg Warfarin Sodium (Coumadin) 10 mg PO 1800 [facility]; Protocol Last Admin: 07/28/18 18:03 Dose: 10 mg - Labs Labs: 07/27/18 11:10 07/27/18 11:10 PT 14.1 SECONDS (9.4-12.5) H 07/27/18 11:10 INR 1.25 07/27/18 11:10 APTT 30.5 Seconds (26.9-38.3) 07/27/18 11:10
[2018-07-28] MEDS ORDERED: Insulin Regular 1 UNITS/0.01 ML ML SC STA (22:30)
[2018-07-28] MEDS: Insulin Detemir 100 units/ml Vial (Levemir) SC SCH (22:41)
--- NOTE | 2018-07-28 23:54 | CON ---
DATE: 07/28/2018 CARDIOLOGY CONSULTATION REASON FOR CONSULTATION: Congestive heart failure exacerbation. HISTORY OF PRESENT ILLNESS: The patient is a 58-year-old morbidly obese male who has history of chronic obstructive lung disease, on nasal O2 at home; history of systolic heart failure, status post ICD placement; history of chronic atrial fibrillation and history of DVT on Coumadin therapy, presented because of worsening shortness of breath as well as mild leg swelling. The patient is also experiencing productive cough. Denies any fever or chills. SOCIAL HISTORY: The patient is a former smoker, he quit 20 years ago. MEDICATIONS: Aldactone 25 mg twice a day, Amaryl 4 mg once a day, Cardizem 30 mg b.i.d., Coumadin 10 mg once a day, Desyrel 150 mg at bedtime, albuterol inhaler t.i.d., Flonase one activation nasally b.i.d., Lasix 40 mg intravenously twice a day, Levemir 22 units subcutaneous at bedtime, Zestril 2.5 mg once a day, Solu-Medrol 20 mg intravenously every 8 hours, and Zithromax 500 mg orally daily. REVIEW OF SYSTEMS: No fever or chills. No hemoptysis. No dizziness or syncope. No recent discharge of the defibrillator. PHYSICAL EXAMINATION GENERAL: The patient is a middle-aged morbidly obese male, who is mildly tachypneic, but does not appear to be in acute distress. VITAL SIGNS: Blood pressure 115/71, heart rate 73, temperature 97.7, and respirations 20. HEENT: Normocephalic. CHEST: Diffuse bilateral rhonchi. HEART: S1 and S2, regular. ABDOMEN: Soft. EXTREMITIES: 1+ pitting edema. LABORATORY DATA: Admitting hemoglobin and hematocrit 13.9 and 42.7, white count 11.7, and platelet count 198,000. Admitting SMA-7 is within normal limits except glucose of 164 and BUN of 51. ProBNP is 1910. INR is 1.25. Cardiac catheterization performed in October 2014, revealed normal coronaries, at that time ejection fraction was preserved. Admitting EKG revealed biventricular paced rhythm at rate of 70, underlying rhythm is atrial fibrillation. The most recent echo was in April of this year; borderline concentric LVH, severely impaired left ventricular systolic function, mildly elevated right ventricle with severely hypokinetic right ventricle. Admitting chest x-ray revealed no active pulmonary disease, no acute findings, persistent severe cardiomegaly. ASSESSMENT: 1. Exacerbation of congestive heart failure. 2. Nonischemic cardiomyopathy. 3. Status post implantable cardioverter defibrillator with biventricular pacemaker. 4. Uncontrolled diabetes mellitus. 5. Prerenal azotemia. RECOMMENDATIONS: Continue Aldactone 25 mg twice a day, Cardizem 30 mg b.i.d., Coumadin 10 mg daily, Lasix 40 mg intravenously twice a day, Solu-Medrol 20 mg intravenously every 8 hours, Zestril 2.5 mg daily, Zithromax 500 mg orally daily. Start therapeutic subcutaneous Lovenox and continue until a therapeutic INR is achieved. Jorge Flowers MD
--- NOTE | 2018-07-29 01:37 | CON ---
DATE: 07/28/2018 PULMONARY CONSULT REFERRING PHYSICIAN: Axel Villagomez MD REASON FOR CONSULTATION: Chronic obstructive lung disease, sleep apnea syndrome, cardiomyopathy. HISTORY OF PRESENT ILLNESS: This is a 58 years old gentleman, well known to me from previous admission, noncompliant with followup, known to have cardiomyopathy, coronary artery disease, history of cardiac arrhythmia requiring cardioversion in the past, has an AICD, sleep apnea syndrome, chronic obstructive lung disease, diabetes, hypertension, history of DVT, comes in with cough, shortness of breath, had some leg swelling, treated with steroids, antibiotics, inhaled bronchodilator, and diuretics. This morning, feels little better, still having cough and shortness of breath though. PAST MEDICAL HISTORY: As per history of present illness, also has a history of gastric bypass surgery done in the remote past. FAMILY HISTORY: No significant cardiopulmonary disease reported. SOCIAL HISTORY: Former smoker, history of substance abuse and alcohol abuse in the remote past. ALLERGIES: To SEROQUEL, QUETIAPINE. Also has BERRIES ALLERGY. MEDICATION: He is on Aldactone 25 mg twice a day, Amaryl 4 mg daily, Ativan 1 mg twice a day, Cardizem 30 mg every 12 hours, Coumadin 10 mg has been given, trazodone 150 mg h.s., Flonase once to each nostril twice a day, insulin coverage, Lasix 40 mg twice a day, Levemir 22 units subcu h.s., Lovenox 120 mg subcu every 12 hours, gabapentin 300 mg twice a day, Percocet 10/325 one tablet every 6 hours p.r.n., Requip 0.5 mg h.s., Singulair 10 mg h.s., Solu-Medrol 20 mg every 8 hours, Zestril 2.5 mg daily, Zithromax 500 mg daily. REVIEW OF SYSTEMS: No headache, no rhinitis. Has cough, shortness of breath. Had some episode of chest pain, no active chest pain at the present time. No nausea, vomiting, diarrhea. Diffuse leg swelling. PHYSICAL EXAMINATION: GENERAL: No acute distress. VITAL SIGNS: Temperature is 98, heart rate 73, respiratory rate is 20, blood pressure 113/71, pulse ox is 93% on nasal cannula. HEENT: Moist mucous membrane. Crowded airway. Mallampati score is 4. NECK: Supple. No JVD. LUNGS: Prolonged expiratory phase. HEART: S1, S2. ABDOMEN: Soft, nontender. No organomegaly. EXTREMITIES: Trace edema. NEUROLOGIC: Awake, alert, follows simple commands. LABORATORY DATA: Shows hemoglobin 13.9, hematocrit 42.7, WBC 11.7, platelet count is 198. INR 1.25, PTT 31. VBG done yesterday shows pH 7.43, pCO2 of 32, O2 of 118, this is on room air yesterday. Sodium 137, potassium 4.6, chloride 102, bicarbonate 23, BUN 51, creatinine 1.4, calcium 9.1, magnesium 1.7, AST 24, ALT 13, alk phos is 72, troponin 0.01, proBNP 1910. Had a chest x-ray done in the ER, shows no new infiltrate or effusion, has a cardiomegaly. EKG shows poor data quality, ventricular paced rhythm, may have underlying AFib. IMPRESSION AND PLAN: Cardiomyopathy with coronary artery disease, history of coronary stent, cardiac arrhythmia requiring ablation therapy in the past, has an automatic implantable cardioverter-defibrillator; chronic obstructive lung disease; hypertension; diabetes; morbid obesity. Pulmonary point of view, he is doing okay. We will continue steroids, antibiotics, gastric prophylaxis, DVT prophylaxis. Last sleep study is negative for sleep apnea after losing weight. Thank you, and we will follow with you. Tia Godinez MD
[2018-07-29] MEDS: Enoxaparin 120 mg Syringe SC SCH ×2 (01:44→13:13)
--- NOTE | 2018-07-29 05:35 | CP.PCM.PN ---
Subjective - Date & Time of Evaluation Date of Evaluation: 07/29/18 Time of Evaluation: 05:34 - Subjective Subjective: TBD Objective - Vital Signs/Intake and Output Vital Signs (last 24 hours): Temp Pulse Resp BP Pulse Ox 98.5 F 70 20 117/63 95 07/28/18 18:00 07/28/18 22:00 07/28/18 18:00 07/28/18 18:03 07/28/18 18:00 Intake and Output: 07/28/18 07/29/18 18:59 06:59 Intake Total 0 1880 Output Total 0 Balance 0 1880 - Medications Medications: Current Medications Albuterol/Ipratropium (Duoneb 3 Mg/0.5 Mg (3 Ml) Ud) 3 ml IH TIDRESP [facility] Last Admin: 07/28/18 21:03 Dose: 3 ml Azithromycin (Zithromax) 500 mg PO DAILY [facility]; Protocol Last Admin: 07/28/18 10:02 Dose: 500 mg Diltiazem HCl (Cardizem) 30 mg PO BID [facility] Last Admin: 07/28/18 18:03 Dose: 30 mg Enoxaparin Sodium (Lovenox) 120 mg SC Q12H [facility]; Protocol Last Admin: 07/29/18 01:44 Dose: 120 mg Fluticasone Propionate (Flonase) 1 actuation NS BID [facility] Last Admin: 07/28/18 18:06 Dose: 2 spr Furosemide (Lasix) 40 mg IVP BID [facility] Last Admin: 07/28/18 19:37 Dose: Not Given Gabapentin (Neurontin) 300 mg PO BID [facility]; Protocol Last Admin: 07/28/18 18:03 Dose: 300 mg Glimepiride (Amaryl) 4 mg PO 0800 [facility] Last Admin: 07/28/18 10:02 Dose: 4 mg Insulin Detemir (Levemir) 22 unit SC HS [facility] Last Admin: 07/28/18 22:41 Dose: 22 unit Insulin Human Regular (Humulin R Med) 0 units SC ACHS [facility]; Protocol Last Admin: 07/28/18 23:01 Dose: Not Given Insulin Human Regular (Humulin R) 10 units SC AC [facility] Last Admin: 07/28/18 18:04 Dose: 10 units Lisinopril (Zestril) 2.5 mg PO DAILY [facility] Last Admin: 07/28/18 10:03 Dose: 2.5 mg Lorazepam (Ativan) 1 mg PO BID [facility]; Protocol Last Admin: 07/28/18 18:04 Dose: 1 mg Methylprednisolone (Solu-Medrol) 20 mg IVP Q12 [facility] Last Admin: 07/28/18 22:37 Dose: 20 mg Montelukast Sodium (Singulair) 10 mg PO HS [facility] Last Admin: 07/28/18 22:37 Dose: 10 mg Oxycodone/Acetaminophen (Percocet 10/325 Mg Tab) 1 tab PO Q6H PRN PRN Reason: Pain, moderate (4-7) Last Admin: 07/27/18 16:17 Dose: 1 tab Ropinirole HCl (Requip) 0.5 mg PO HS [facility] Last Admin: 07/28/18 22:37 Dose: 0.5 mg Spironolactone (Aldactone) 25 mg PO BID [facility] Last Admin: 07/28/18 18:03 Dose: 25 mg Trazodone HCl (Desyrel) 150 mg PO HS [facility] Last Admin: 07/28/18 22:37 Dose: 150 mg Warfarin Sodium (Coumadin) 10 mg PO 1800 [facility]; Protocol Last Admin: 07/28/18 18:03 Dose: 10 mg - Labs Labs: 07/27/18 11:10 07/27/18 11:10 PT 14.1 SECONDS (9.4-12.5) H 07/27/18 11:10 INR 1.25 07/27/18 11:10 APTT 30.5 Seconds (26.9-38.3) 07/27/18 11:10
[2018-07-29] MEDS: Albuterol-Ipratrop 3 mg / 0.5 (3 ml) UD IH SCH ×3 (08:45→22:46)
[2018-07-29] MEDS: MethylPREDNISolone 40 mg Vial IVP SCH ×2 (09:13→22:15)
[2018-07-29] MEDS: Insulin Regular 1 UNITS/0.01 ML ML SC SCH ×4 (09:18→22:14)
[2018-07-29] MEDS: Insulin Reg-MEDIUM-Coverage SC SCH (09:18)
[2018-07-29] MEDS: Fluticasone Nasal 50 mcg/Spray NS SCH ×2 (09:32→17:50)
--- NOTE | 2018-07-29 12:51 | CP.PCM.PN ---
<Deonte Bland - Last Filed: 07/29/18 14:12> Subjective - Date & Time of Evaluation Date of Evaluation: 07/29/18 Time of Evaluation: 07:50 - Subjective Subjective: Deonte Bland D.O. PGY-3, Internal Medicine Resident, Dr. Villagomez's Service, Progress Note 58-year-old male with a past medical history COPD on home oxygen at 2 L, heart failure with reduced ejection fraction of approximately 36% status post AICD, WESLY, CAD status post PCI, diabetes type 2, atrial fibrillation and previous DVT on Coumadin therapy who presented for complaints of shortness of breath. Patient was seen and examined at bedside. States that he still having some shortness of breath. Has mild difficulty ambulating but this is due to issues with his hip. Objective - Vital Signs/Intake and Output Vital Signs (last 24 hours): Temp Pulse Resp BP Pulse Ox 97.5 F L 70 20 115/78 95 07/29/18 12:00 07/29/18 12:00 07/29/18 12:00 07/29/18 12:00 07/28/18 18:00 Intake and Output: 07/29/18 07/29/18 06:59 18:59 Intake Total 1880 Output Total 0 Balance 1880 - Medications Medications: Current Medications Albuterol/Ipratropium (Duoneb 3 Mg/0.5 Mg (3 Ml) Ud) 3 ml IH TIDRESP [facility] Last Admin: 07/29/18 08:45 Dose: 3 ml Azithromycin (Zithromax) 500 mg PO DAILY [facility]; Protocol Last Admin: 07/29/18 09:16 Dose: 500 mg Diltiazem HCl (Cardizem) 30 mg PO BID [facility] Last Admin: 07/29/18 09:19 Dose: 30 mg Enoxaparin Sodium (Lovenox) 120 mg SC Q12H [facility]; Protocol Last Admin: 07/29/18 01:44 Dose: 120 mg Fluticasone Propionate (Flonase) 1 actuation NS BID [facility] Last Admin: 07/29/18 09:32 Dose: Not Given Furosemide (Lasix) 40 mg IVP BID [facility] Last Admin: 07/29/18 09:19 Dose: 40 mg Gabapentin (Neurontin) 300 mg PO BID [facility]; Protocol Last Admin: 07/29/18 09:14 Dose: 300 mg Glimepiride (Amaryl) 4 mg PO 0800 [facility] Last Admin: 07/29/18 09:21 Dose: 4 mg Insulin Detemir (Levemir) 22 unit SC [facility] Last Admin: 07/28/18 22:41 Dose: 22 unit Insulin Human Regular (Humulin R High) 0 units SC [facility]; Protocol Insulin Human Regular (Humulin R) 15 units SC [facility] Lisinopril (Zestril) 2.5 mg PO DAILY [facility] Last Admin: 07/29/18 09:16 Dose: 2.5 mg Lorazepam (Ativan) 1 mg PO BID [facility]; Protocol Last Admin: 07/29/18 09:14 Dose: 1 mg Methylprednisolone (Solu-Medrol) 20 mg IVP Q12 [facility] Last Admin: 07/29/18 09:13 Dose: 20 mg Montelukast Sodium (Singulair) 10 mg PO [facility] Last Admin: 07/28/18 22:37 Dose: 10 mg Oxycodone/Acetaminophen (Percocet 10/325 Mg Tab) 1 tab PO Q6H PRN PRN Reason: Pain, moderate (4-7) Last Admin: 07/27/18 16:17 Dose: 1 tab Ropinirole HCl (Requip) 0.5 mg PO [facility] Last Admin: 07/28/18 22:37 Dose: 0.5 mg Spironolactone (Aldactone) 25 mg PO BID [facility] Last Admin: 07/29/18 09:16 Dose: 25 mg Trazodone HCl (Desyrel) 150 mg PO [facility] Last Admin: 07/28/18 22:37 Dose: 150 mg Warfarin Sodium (Coumadin) 10 mg PO 1800 [facility]; Protocol Last Admin: 07/28/18 18:03 Dose: 10 mg - Labs Labs: 07/27/18 11:10 07/27/18 11:10 PT 14.1 SECONDS (9.4-12.5) H 07/27/18 11:10 INR 1.25 07/27/18 11:10 APTT 30.5 Seconds (26.9-38.3) 07/27/18 11:10 - Constitutional Appears: Non-toxic, Chronically Ill - Head Exam Head Exam: ATRAUMATIC, NORMOCEPHALIC - Eye Exam Eye Exam: EOMI. absent: Scleral icterus - ENT Exam ENT Exam: Mucous Membranes Moist, Normal Oropharynx - Respiratory Exam Additional comments: poor air movement, mild wheezing - Cardiovascular Exam Cardiovascular Exam: Irregular Rhythm, +S1, +S2. absent: Rubs - GI/Abdominal Exam GI & Abdominal Exam: Soft, Normal Bowel Sounds. absent: Tenderness - Extremities Exam Extremities Exam: absent: Calf Tenderness - Neurological Exam Neurological Exam: Alert, Awake, Oriented x3 - Skin Skin Exam: Dry, Warm Assessment and Plan - Assessment and Plan (Free Text) Assessment: 58-year-old male with a past medical history COPD on home oxygen at 2 L, heart failure with reduced ejection fraction of approximately 36% status post AICD, WESLY, CAD status post PCI, diabetes type 2, atrial fibrillation and previous DVT on Coumadin therapy who presented for complaints of shortness of breath. Plan: 1. Acute exacerbation of chronic obstructive pulmonary disease 2. Heart failure with reduced ejection fraction 3. CAD status post PCI 4. PAD 5. Diabetes type 2 6. Atrial fibrillation on Coumadin 7. DVT 8. Right hip pain 9. Subtherapeutic INR Breathing overall improved. Patient states that he has been wheezing less. Co ntinue with nebulizer treatments as well as azithromycin. Continue methylprednisolone 20 every 12. Pulmonary consultation reviewed and appreciated. Note that patient's last polysomnogram was negative for obstructive sleep apnea. Cardiology consultation also reviewed and appreciated. Continue with diltiazem, furosemide, lisinopril, and spironolactone. Continue trazodone for sleep. Continue montelukast. Continue Requip. Continue with therapeutic Lovenox until INR in range. Continue Coumadin 10 mg. We will recheck PT and PTT tomorrow. Given last blood sugar readings as high as 442 we will increase the patient's pre-meal insulin from 8 to 15 units. Will give 10 units of insulin right now. Continue Levemir 20 2 at night. Blood sugar elevations likely secondary to IV steroids. Regular insulin sliding scale increased to high. We will follow these blood sugars closely. Patient was seen and examined and case discussed with attending physician. <Axel Villagomez - Last Filed: 07/29/18 15:31> Objective - Vital Signs/Intake and Output Vital Signs (last 24 hours): Temp Pulse Resp BP Pulse Ox 97.5 F L 70 20 115/78 95 07/29/18 12:00 07/29/18 12:00 07/29/18 12:00 07/29/18 12:00 07/28/18 18:00 Intake and Output: 07/29/18 07/29/18 06:59 18:59 Intake Total 1880 Output Total 0 Balance 1880 - Medications Medications: Current Medications Albuterol/Ipratropium (Duoneb 3 Mg/0.5 Mg (3 Ml) Ud) 3 ml IH TIDRESP [facility] Last Admin: 07/29/18 14:30 Dose: Not Given Azithromycin (Zithromax) 500 mg PO DAILY [facility]; Protocol Last Admin: 07/29/18 09:16 Dose: 500 mg Diltiazem HCl (Cardizem) 30 mg PO BID [facility] Last Admin: 07/29/18 09:19 Dose: 30 mg Enoxaparin Sodium (Lovenox) 120 mg SC Q12H [facility]; Protocol Last Admin: 07/29/18 13:13 Dose: 120 mg Fluticasone Propionate (Flonase) 1 actuation NS BID [facility] Last Admin: 07/29/18 09:32 Dose: Not Given Furosemide (Lasix) 40 mg IVP BID [facility] Last Admin: 07/29/18 09:19 Dose: 40 mg Gabapentin (Neurontin) 300 mg PO BID [facility]; Protocol Last Admin: 07/29/18 09:14 Dose: 300 mg Glimepiride (Amaryl) 4 mg PO 0800 [facility] Last Admin: 07/29/18 09:21 Dose: 4 mg Insulin Detemir (Levemir) 22 unit SC HS [facility] Last Admin: 07/28/18 22:41 Dose: 22 unit Insulin Human Regular (Humulin R High) 0 units SC [facility]; Protocol Last Admin: 07/29/18 13:12 Dose: 15 unit Insulin Human Regular (Humulin R) 15 units SC [facility] Last Admin: 07/29/18 13:13 Dose: 15 unit Lisinopril (Zestril) 2.5 mg PO DAILY [facility] Last Admin: 07/29/18 09:16 Dose: 2.5 mg Lorazepam (Ativan) 1 mg PO BID [facility]; Protocol Last Admin: 07/29/18 09:14 Dose: 1 mg Methylprednisolone (Solu-Medrol) 20 mg IVP Q12 [facility] Last Admin: 07/29/18 09:13 Dose: 20 mg Montelukast Sodium (Singulair) 10 mg PO HS [facility] Last Admin: 07/28/18 22:37 Dose: 10 mg Oxycodone/Acetaminophen (Percocet 10/325 Mg Tab) 1 tab PO Q6H PRN PRN Reason: Pain, moderate (4-7) Last Admin: 07/27/18 16:17 Dose: 1 tab Pantoprazole Sodium (Protonix Ec Tab) 40 mg PO HS [facility] Ropinirole HCl (Requip) 0.5 mg PO HS [facility] Last Admin: 07/28/18 22:37 Dose: 0.5 mg Spironolactone (Aldactone) 25 mg PO BID [facility] Last Admin: 07/29/18 09:16 Dose: 25 mg Trazodone HCl (Desyrel) 150 mg PO HS [facility] Last Admin: 07/28/18 22:37 Dose: 150 mg Warfarin Sodium (Coumadin) 10 mg PO 1800 [facility]; Protocol Last Admin: 07/28/18 18:03 Dose: 10 mg - Labs Labs: 07/27/18 11:10 07/27/18 11:10 PT 14.1 SECONDS (9.4-12.5) H 07/27/18 11:10 INR 1.25 07/27/18 11:10 APTT 30.5 Seconds (26.9-38.3) 07/27/18 11:10 Assessment and Plan - Assessment and Plan (Free Text) Assessment: Pt seen and examined by me. I have reviewed the note of the medical billing and coding instructor and I agree with it. I have discussed the assessment and plan with the resident. I have reviewed the medications and the last labs.
[2018-07-29] MEDS: Insulin Reg-HIGH-Coverage SC SCH ×3 (13:12→22:17)
--- NOTE | 2018-07-29 16:01 | PN ---
DATE: 07/29/2018 REASON FOR CONSULTATION AND FOLLOWUP: Cardiac evaluation, history of nonischemic cardiomyopathy, history of radiofrequency ablation, admitted with shortness of breath, acute exacerbation of COPD, as well as congestive heart failure. SUBJECTIVE: The patient denies any chest pain, shortness of breath or any palpitation. OBJECTIVE: GENERAL: Not in apparent distress. VITAL SIGNS: Temperature afebrile, heart rate 70, blood pressure 115/78. HEENT: PERRLA. Extraocular muscles intact. NECK: Supple. No carotid bruit. No thyromegaly. CHEST: Clear to auscultation. HEART: S1, S2 regular. ABDOMEN: Soft. EXTREMITIES: Clubbing and cyanosis, negative. LABORATORY DATA: Blood workup as follows: WBC 11.6, hemoglobin 13.9, hematocrit 42.7, platelet count 198. INR 1.25. Chemistry shows sodium 136, potassium 4.6, chloride 102, carbon dioxide of 23, anion gap of 16, BUN 15, creatinine 1.4. Chest x-ray consistent with CHF, fluid noted in the right interlobar fissure. EKG shows V-paced underlying possible AFib. IMPRESSION: A 58-year-old male with past medical history significant for nonischemic cardiomyopathy, status post cardiac catheterization 3 times; history of atrial fibrillation, flutter, status post radiofrequency ablation; history of deep venous thrombosis, on Coumadin; history of arterial occlusion of lower extremity, admitted with acute exacerbation of congestive heart failure as well as chronic obstructive pulmonary disease, coughing some phlegm, history of nonischemic cardiomyopathy, acute exacerbation of chronic obstructive pulmonary disease secondary to acute on chronic systolic dysfunction as well as chronic obstructive pulmonary disease exacerbation. RECOMMENDATIONS: Continue Cardizem, continue Coumadin, because INR is subtherapeutic. We will give a dose of Lovenox. Continue broad spectrum antibiotics, community acquired pneumonia, and we will control the heart rate with Cardizem and we will use Lovenox as a bridge until the INR get therapeutic. Continue gentle diuretics to keep the fluid negative balance. We will follow with you. We will continue spironolactone 25 mg p.o. b.i.d., continue Cardizem 30 mg 3 times a day, continue warfarin 10 mg, continue Lovenox as a bridge as mentioned, continue IV Lasix 25 p.o. b.i.d. We will follow when stable. We will discontinued telemetry. Repeat the blood workup in the morning. We will repeat chest x-ray tomorrow and compare. We will follow with you. Thank you, Dr. Villagomez, for providing us the opportunity in taking care of the patient, Alex Freeman. Tia Rajan MD
[2018-07-29] MEDS ORDERED: Insulin Regular 1 UNITS/0.01 ML ML SC ONE (17:32)
--- NOTE | 2018-07-29 18:27 | PN ---
DATE: 07/29/2018 PULMONARY PROGRESS NOTE REFERRING PHYSICIAN: Dr. Mitchell. SUBJECTIVE: The patient is seen sitting in armchair in room. No acute distress. Reports that last night he had a coughing spell. Feels better this morning, cough improved. No headache, rhinitis, shortness of breath, chest pain, abdominal pain, nausea, vomiting, diarrhea, leg pain or leg swelling reported. OBJECTIVE: GENERAL: No acute distress. VITAL SIGNS: Blood pressure 115/78, pulse 70, temperature 97.5, and oxygen saturation 95%. HEENT: Moist mucous membranes. Crowded airway. Mallampati score 4. NECK: Supple. No JVD. LUNGS: Few scattered rhonchi. CARDIOVASCULAR: S1, S2. ABDOMEN: Soft, nontender. No distension. No organomegaly. EXTREMITIES: No bilateral lower extremity edema. NEUROLOGICAL: Awake, alert, and verbal. Following commands. MEDICATIONS: Reviewed. DuoNeb 3 mL inhalation three times a day, Zithromax 500 mg daily, Cardizem 30 mg twice a day, Lovenox 120 mg subcutaneous every 12 hours, Flonase nasal spray twice a day, Lasix 40 mg IV push twice a day, Neurontin 300 mg twice a day, glimepiride 4 mg daily, Levemir 22 units subcutaneous at bedtime, Humulin R sliding scale a.c. and at bedtime, units subcutaneous in the morning and at bedtime, lisinopril 2.5 mg daily, Ativan 1 mg twice a day, Solu-Medrol 20 mg every 12 hours, Singulair 10 mg at bedtime, Percocet 1 tab every 6 hours p.r.n., ReQuip 0.5 mg at bedtime, Aldactone 25 mg twice a day, trazodone 150 at bedtime, Coumadin 10 mg daily. LABORATORY DATA: Reviewed. POC glucose 442. IMPRESSION AND PLAN: Cardiomyopathy, coronary artery disease, history of coronary stents, cardiac arrhythmia requiring ablation therapy in the past, automatic implantable cardioverter-defibrillator placement, chronic obstructive lung disease, hypertension, diabetes, morbid obesity. Pulmonary point of view, continue antibiotics, gastric prophylaxis. The patient is on anticoagulation therapy. Continue present steroid dosing. Recommend full pulmonary function test as outpatient. Continue inhaled bronchodilators. We will place the patient on Protonix for gastric prophylaxis. Head of bed elevated 45 degrees. This patient was seen and examined with Dr. Godinez. Discussed assessment and plan as described above. This patient was seen and examined by Trudy Singh, nurse practitioner. Discussed assessment and plan as described above. Thank you for this consult. We will follow with you. Trudy Singh APN Tia Godinez MD
--- NOTE | 2018-07-29 19:27 | PN ---
DATE: 07/29/2018 The patient was seen and examined. I do agree with the note of the medical payment poster that was involved in the plan of care. The patient had acute COPD exacerbation. The patient is getting IV steroids. The patient's glucose is significantly elevated. So, the patient's insulin has been increased. He is feeling better. He is on trazodone for his sleep. He is on Lasix, lisinopril, and spironolactone for his CHF secondary to systolic dysfunction. He has peripheral arterial disease. He is on aspirin for this. The patient is on Coumadin for his atrial fibrillation. I have increased his Coumadin dosage. He continues to be on an insulin sliding scale. He is being followed by Cardiology and Pulmonary. The patient's chest pain is under control. His getting Percocet for his pain. He is on nebulizer treatments. He is on Flonase. Axel Villagomez MD
[2018-07-29] MEDS ORDERED: Pantoprazole 40 mg EC Tab PO SCH (22:00)
[2018-07-29] MEDS: Insulin Detemir 100 units/ml Vial (Levemir) SC SCH (22:12)
[2018-07-30] MEDS: Enoxaparin 120 mg Syringe SC SCH (02:25)
[2018-07-30 02:59] VITALS: RESP 18
[2018-07-30] MEDS: Albuterol-Ipratrop 3 mg / 0.5 (3 ml) UD IH SCH (07:13)
[2018-07-30 07:17] LABS: BASO # 0.01 K/mm3 (0.0-2.0); BASO % 0.1 % (0.0-3.0); HEMOGLOBIN 14.2 g/dL (14.0-18.0); LYMPH # 0.8 (1.2-3.4); LYMPH % 4.1 % (22.0-35.0); MEAN CELL VOLUME 84.5 fl (80.0-105.0); MEAN CORPUSCULAR HEMOGLOBIN 27.9 pg (25.0-35.0); MEAN PLATELET VOLUME 10.4 fl (7.0-11.0); MONO % 5.1 % (1.0-6.0); PLATELET COUNT 191 10^3/uL (120.0-450.0); RBC 5.09 10^6/uL (3.5-6.1); RED CELL DISTRIBUTION WIDTH 18.6 % (11.5-14.5); WHITE BLOOD COUNT 19.1 10^3/uL (4.5-11.0)
[2018-07-30 07:28] LABS: INR 1.61; PARTIAL THROMBOPLASTIN TIME 33.7 Seconds (26.9-38.3); PROTHROMBIN TIME 18.2 SECONDS (9.4-12.5)
[2018-07-30 07:30] LABS: ALB/GLOB RATIO 1.4 (1.1-1.8); ALBUMIN 4.5 g/dL (3.0-4.8); CALCIUM 9.9 mg/dL (8.4-10.5)
[2018-07-30] MEDS: Insulin Reg-HIGH-Coverage SC SCH (07:30)
[2018-07-30 07:54] VITALS: BP 106/71; PULSE 78; TEMP 97.6; O2SAT 93
[2018-07-30 08:09] LABS: LYMPHOCYTE 3 % (22.0-35.0); NEUTROPHIL 97 % (50.0-70.0); PLATELET ESTIMATE NORMAL (NORMAL)
--- NOTE | 2018-07-30 08:19 | CP.PCM.PN ---
Subjective - Date & Time of Evaluation Date of Evaluation: 07/30/18 Time of Evaluation: 06:24 - Subjective Subjective: Awake, no distress, feels okay, wanted to go home Reason for consultation and follow up:Cardiac evaluation of shortness of breath, history of COPD, congestive heart failure, non ischemic cardiomyopathy Seen and examined by me and Dr. Rajan Objective - Vital Signs/Intake and Output Vital Signs (last 24 hours): Temp Pulse Resp BP Pulse Ox 97.6 F 78 18 106/71 93 L 07/30/18 06:00 07/30/18 06:00 07/30/18 06:00 07/30/18 06:00 07/30/18 06:00 Intake and Output: 07/30/18 07/30/18 06:59 18:59 Intake Total 120 Balance 120 - Medications Medications: Current Medications Albuterol/Ipratropium (Duoneb 3 Mg/0.5 Mg (3 Ml) Ud) 3 ml IH TIDRESP [facility] Last Admin: 07/30/18 07:13 Dose: 3 ml Azithromycin (Zithromax) 500 mg PO DAILY [facility]; Protocol Last Admin: 07/29/18 09:16 Dose: 500 mg Diltiazem HCl (Cardizem) 30 mg PO BID [facility] Last Admin: 07/29/18 17:47 Dose: 30 mg Enoxaparin Sodium (Lovenox) 120 mg SC Q12H [facility]; Protocol Last Admin: 07/30/18 02:25 Dose: 120 mg Fluticasone Propionate (Flonase) 1 actuation NS BID [facility] Last Admin: 07/29/18 17:50 Dose: 1 spr Furosemide (Lasix) 40 mg IVP BID [facility] Last Admin: 07/29/18 17:47 Dose: 40 mg Gabapentin (Neurontin) 300 mg PO BID [facility]; Protocol Last Admin: 07/29/18 17:48 Dose: 300 mg Glimepiride (Amaryl) 4 mg PO 0800 [facility] Last Admin: 07/29/18 09:21 Dose: 4 mg Insulin Detemir (Levemir) 22 unit SC HS [facility] Last Admin: 07/29/18 22:12 Dose: 22 unit Insulin Human Regular (Humulin R High) 0 units SC [facility]; Protocol Last Admin: 07/29/18 22:17 Dose: 2 unit Insulin Human Regular (Humulin R) 15 units SC [facility] Last Admin: 07/29/18 22:14 Dose: 15 unit Lisinopril (Zestril) 2.5 mg PO DAILY [facility] Last Admin: 07/29/18 09:16 Dose: 2.5 mg Lorazepam (Ativan) 1 mg PO BID [facility]; Protocol Last Admin: 07/29/18 17:47 Dose: 1 mg Methylprednisolone (Solu-Medrol) 20 mg IVP Q12 [facility] Last Admin: 07/29/18 22:15 Dose: 20 mg Montelukast Sodium (Singulair) 10 mg PO HS [facility] Last Admin: 07/29/18 22:13 Dose: 10 mg Oxycodone/Acetaminophen (Percocet 10/325 Mg Tab) 1 tab PO Q6H PRN PRN Reason: Pain, moderate (4-7) Last Admin: 07/27/18 16:17 Dose: 1 tab Pantoprazole Sodium (Protonix Ec Tab) 40 mg PO [facility] Last Admin: 07/29/18 22:13 Dose: 40 mg Ropinirole HCl (Requip) 0.5 mg PO [facility] Last Admin: 07/29/18 22:13 Dose: 0.5 mg Spironolactone (Aldactone) 25 mg PO BID [facility] Last Admin: 07/29/18 17:48 Dose: 25 mg Trazodone HCl (Desyrel) 150 mg PO [facility] Last Admin: 07/29/18 22:13 Dose: 150 mg Warfarin Sodium (Coumadin) 10 mg PO 1800 [facility]; Protocol Last Admin: 07/29/18 17:48 Dose: 10 mg - Labs Labs: 07/30/18 07:00 07/30/18 07:00 PT 18.2 SECONDS (9.4-12.5) H 07/30/18 07:00 INR 1.61 07/30/18 07:00 APTT 33.7 Seconds (26.9-38.3) 07/30/18 07:00 - Constitutional Appears: Non-toxic, No Acute Distress - Head Exam Head Exam: NORMAL INSPECTION, NORMOCEPHALIC - Eye Exam Eye Exam: Normal appearance Pupil Exam: NORMAL ACCOMODATION - ENT Exam ENT Exam: Mucous Membranes Moist, Normal Exam - Respiratory Exam Respiratory Exam: Decreased Breath Sounds, Clear to Ausculation Bilateral, NORMAL BREATHING PATTERN - Cardiovascular Exam Cardiovascular Exam: +S1, +S2 - GI/Abdominal Exam GI & Abdominal Exam: Soft, Normal Bowel Sounds - Extremities Exam Extremities Exam: Full ROM, Normal Capillary Refill - Neurological Exam Neurological Exam: Alert, Awake, Oriented x3 - Psychiatric Exam Psychiatric exam: Normal Affect, Normal Mood - Skin Skin Exam: Dry, Normal Color, Warm Assessment and Plan - Assessment and Plan (Free Text) Assessment: A 58 year old male who came in to the ER due to complaining of shortness of breath.f. History of chronic systolic congestive heart failure, COPD on home oxygen, obesity, obstructive sleep apnea, diabetes,depression, anxiety, GERD, history of fall, atrial fibrillation on Coumadin, history of DVT, Gastric bypass, PVD, post angioplasty and drug eluding stent placement in the left tibioperoneal trunk, recent left hip replacement at [facility]. Cardiac cath done on 10/2014 showed normal coronaries. Echo done on 05/06/18 showed LVEF 36%, severely impaired systolic function,RV is dialted and severely hypokinetic. Admitted for exacerbation of COPD and exacerbation of acute on chronic systolic congestive heart failure. Heart rate controlled with cardizem. Diurese.Symptoms better,patient feels better, wanted to go home. Clinically improved. Plan: Symptoms clinically improved Feels better, denies shortness of breath Heart rate controlled Blood pressure controlled On Cardizem 30 mg BID,Lovenox 120 mg BID,Lasix 40 mg IV BID, Zestril 2.5 mg daily,Solumedrol 20 mg IV BID, Aldactone 25 mg BID Coumadin 10 mg daily INR today 1.61, continue Lovenox until INR therapeutic Continue current management Discharge planning Will follow up Plan and treatment discussed with Dr. Rajan
--- NOTE | 2018-07-30 08:26 | RAD ---
Date of service: 07/30/2018 HISTORY: F/U pneumonia and compare COMPARISON: 07/27/2018 TECHNIQUE: Chest PA and lateral views FINDINGS: LUNGS: No active pulmonary disease. PLEURA: No significant pleural effusion identified. No pneumothorax apparent. CARDIOVASCULAR: No aortic atherosclerotic calcification present. Mild cardiomegaly no pulmonary vascular congestion. OSSEOUS STRUCTURES: No significant abnormalities. VISUALIZED UPPER ABDOMEN: Normal. OTHER FINDINGS: Dual lead pacemaker IMPRESSION: No active disease.
[2018-07-30] MEDS ORDERED: Insulin Regular 1 UNITS/0.01 ML ML SC SCH (08:41)
--- NOTE | 2018-07-30 10:22 | CP.PCM.DIS ---
<Deonte Bland - Last Filed: 07/30/18 10:19> Provider - Provider Date of Admission: 07/27/18 18:55 Attending physician: Axel Villagomez MD Consults: 07/27/18 18:21 Consult [Physician Consult] Routine Comment: Consulting Provider: Tia Rajan Consulting Physician: Tia Rajan Reason for Consult: SOB 07/27/18 18:22 Consult [Physician Consult] Routine Comment: Consulting Provider: Tia Godinez Consulting Physician: Tia Godinez Reason for Consult: SOB 07/27/18 20:17 Case Management Referral Routine Comment: NEEDS ASSISTANCE AT HOME Physician Instructions: Reason For Exam: EVALUATION Reason for Referral: Experimental Technician Eval Inpatient INCINERATOR ATTENDANT Core Measures Referral Routine Comment: Physician Instructions: Reason For Exam: EVALUATION Transition In Care/Readmission Reduction Routine Comment: Physician Instructions: Reason For Exam: EVALUATION 07/27/18 20:21 Nursing Referral for Palliative Care Routine Comment: Physician Instructions: Reason For Exam: EVALUATION Social Work Referral Routine Comment: DISCHARGE PLANNING WITH ASSISTANCE AT HOME Physician Instructions: Reason For Exam: EVALUATION Time Spent in preparation of Discharge (in minutes): 60 Diagnosis - Discharge Diagnosis (1) COPD exacerbation Status: Acute (2) Hyperglycemia Status: Chronic (3) Shortness of breath Status: Acute (4) COPD (chronic obstructive pulmonary disease) Status: Chronic (5) Congestive heart failure (CHF) Status: Chronic (6) Diabetes Status: Chronic Hospital Course - Lab Results Lab Results: Most Recent Lab Values WBC 19.1 10^3/uL (4.5-11.0) H D 07/30/18 07:00 RBC 5.09 10^6/uL (3.5-6.1) 07/30/18 07:00 Hgb 14.2 g/dL (14.0-18.0) 07/30/18 07:00 Hct 43.0 % (42.0-52.0) 07/30/18 07:00 MCV 84.5 fl (80.0-105.0) 07/30/18 07:00 MCH 27.9 pg (25.0-35.0) 07/30/18 07:00 MCHC 33.0 g/dl (31.0-37.0) 07/30/18 07:00 RDW 18.6 % (11.5-14.5) H 07/30/18 07:00 Plt Count 191 10^3/uL (120.0-450.0) 07/30/18 07:00 MPV 10.4 fl (7.0-11.0) 07/30/18 07:00 Neut % (Auto) 90.7 % (50.0-68.0) H 07/30/18 07:00 Lymph % (Auto) 4.1 % (22.0-35.0) L 07/30/18 07:00 Coffey % (Auto) 5.1 % (1.0-6.0) 07/30/18 07:00 Eos % (Auto) 0.0 % (1.5-5.0) L 07/30/18 07:00 Baso % (Auto) 0.1 % (0.0-3.0) 07/30/18 07:00 Lymph # (Auto) 0.8 (1.2-3.4) L 07/30/18 07:00 Coffey # (Auto) 1.0 (0.1-0.6) H 07/30/18 07:00 Eos # (Auto) 0.0 (0.0-0.7) 07/30/18 07:00 Baso # (Auto) 0.01 K/mm3 (0.0-2.0) 07/30/18 07:00 Absolute Neuts (auto) 17.33 (1.4-6.5) H 07/30/18 07:00 Neutrophils % (Manual) 97 % (50.0-70.0) H 07/30/18 07:00 Lymphocytes % (Manual) 3 % (22.0-35.0) L 07/30/18 07:00 Monocytes % (Manual) TEST NOT PERFORMED 07/30/18 07:00 Platelet Evaluation Normal (NORMAL) 07/30/18 07:00 PT 18.2 SECONDS (9.4-12.5) H 07/30/18 07:00 INR 1.61 07/30/18 07:00 APTT 33.7 Seconds (26.9-38.3) 07/30/18 07:00 pO2 118 mm/Hg (30-55) H 07/27/18 15:40 VBG pH 7.43 (7.32-7.43) 07/27/18 15:40 VBG pCO2 32.0 (40-60) L 07/27/18 15:40 VBG HCO3 21.2 mmol/l (21-28) 07/27/18 15:40 VBG Total CO2 22.2 mmol.L (22-28) 07/27/18 15:40 VBG O2 Sat (Calc) 98.3 % (40-65) H 07/27/18 15:40 VBG Base Excess -2.3 mmol/L (0.0-2.0) L 07/27/18 15:40 VBG Potassium 4.5 mmol/L (3.6-5.2) 07/27/18 15:40 Sodium 134.0 mmol/L (132-148) 07/27/18 15:40 Chloride 100.0 mmol/L (98-107) 07/27/18 15:40 Glucose 281 mg/dl (75-110) H 07/27/18 15:40 Lactate 2.7 mmol/L (0.7-2.1) H 07/27/18 15:40 FiO2 21.0 % 07/27/18 15:40 Crit Value Called To Verna watson 07/27/18 15:40 Crit Value Called By Atc 07/27/18 15:40 Blood Gas Notified Time 1550 07/27/18 15:40 Sodium 135 mmol/L (132-148) 07/30/18 07:00 Potassium 4.5 mmol/L (3.6-5.0) 07/30/18 07:00 Chloride 94 mmol/L (98-107) L 07/30/18 07:00 Carbon Dioxide 29 mmol/L (21-33) 07/30/18 07:00 Anion Gap 16 (10-20) 07/30/18 07:00 BUN 71 mg/dL (7-21) H 07/30/18 07:00 Creatinine 1.7 mg/dl (0.8-1.5) H 07/30/18 07:00 Est GFR ( Amer) 50 07/30/18 07:00 Est GFR (Non-Af Amer) 41 07/30/18 07:00 POC Glucose (mg/dL) 163 mg/dL (65-110) H 07/30/18 06:17 Random Glucose 136 mg/dL (70-110) H 07/30/18 07:00 Calcium 9.9 mg/dL (8.4-10.5) 07/30/18 07:00 Phosphorus 5.0 mg/dL (2.5-4.5) H 07/30/18 07:00 Magnesium 2.2 mg/dL (1.7-2.2) 07/30/18 07:00 Total Bilirubin 0.4 mg/dL (0.2-1.3) 07/30/18 07:00 AST 18 U/L (17-59) 07/30/18 07:00 ALT 15 U/L (7-56) 07/30/18 07:00 Alkaline Phosphatase 66 U/L (38-126) 07/30/18 07:00 Lactate Dehydrogenase 455 U/L (333-699) 07/27/18 11:10 Total Creatine Kinase 84 U/L (35-230) 07/27/18 11:10 Troponin I 0.06 ng/mL 07/27/18 11:10 NT-Pro-B Natriuret Pep 1910 pg/mL (0-450) H 07/27/18 11:10 Total Protein 7.6 g/dL (5.8-8.3) 07/30/18 07:00 Albumin 4.5 g/dL (3.0-4.8) 07/30/18 07:00 Globulin 3.2 gm/dL 07/30/18 07:00 Albumin/Globulin Ratio 1.4 (1.1-1.8) 07/30/18 07:00 Venous Blood Potassium 4.5 mmol/L (3.6-5.2) 07/27/18 15:40 - Hospital Course Hospital Course: Deonte Bland D.O. PGY-3, Internal Medicine Resident, Dr. Villagomez's Service, Discharge Summary 58-year-old male with a past medical history COPD on home oxygen at 2 L, heart failure with reduced ejection fraction of approximately 36% status post AICD, WESLY, CAD status post PCI, diabetes type 2, atrial fibrillation and previous DVT on Coumadin therapy who presented for complaints of shortness of breath.Patient was found to have an acute exacerbation of his chronic obstructive pulmonary disease. Patient had a chest x-ray which showed no acute pulmonary disease but persistent severe cardiomegaly. Patient was evaluated by pulmonology and was started on IV Solu-Medrol as well azithromycin. Patient was also treated with nebulizer treatments. Patient has slow improvement in his respiratory symptoms over the course of his admission. Patient was given trazodone for his sleep. He was also given Lasix, lisinopril, spironolactone for his CHF secondary to systolic dysfunction. Patient's aspirin was continued. Patient's Coumadin was found to yield subtherapeutic INR and so his dose was increased to 10 mg at night. During this subtherapeutic period patient was given therapeutic Lovenox. Patient had some hyperglycemia likely secondary to IV steroid therapy and his insulin had to be increased. Patient's Requip and montelukast were also continued during his admission. This resulted in improved blood sugar readings. Patient was seen and examined today at bedside and states that he is feeling overall better. Patient is eager to go home. Upon discussion to make sure that the patient had all of his medications at home, patient revealed that he has been unable to afford his insulin. Called down and spoke with our pharmacist and was able to obtain an affordable solution for his Levemir and his regular insulin regimen. Discussed again with patient who states that a week he will picking belt operator the medication on his way out of the hospital. Patient's warfarin at his new dose now 10 mg at night was sent to his preferred pharmacy of [facility]. All questions were welcomed and answered to the verbal satisfaction patient. Patient will be following up PMD within 1 week. Clear instructions were given to follow-up with pulmonary and cardiology as instructed. Patient was discharged in fair condition to home. Patient's has home oxygen. - Date & Time of H&P Date of H&P: 07/30/18 Time of H&P: 10:20 Discharge Exam - Head Exam Head Exam: NORMAL INSPECTION, NORMOCEPHALIC - Eye Exam Eye Exam: EOMI. absent: Scleral icterus - ENT Exam ENT Exam: Mucous Membranes Moist, Normal Oropharynx - Neck Exam Neck exam: Normal Inspection - Respiratory Exam Additional comments: mildly decreased air movement but significantly improved, little to no wheezing - Cardiovascular Exam Cardiovascular Exam: +S1, +S2. absent: Gallop, Rubs - GI/Abdominal Exam GI & Abdominal Exam: Normal Bowel Sounds, Soft - Extremities Exam Extremities exam: normal capillary refill - Neurological Exam Neurological exam: Alert, Oriented x3 - Skin Skin Exam: Dry, Warm Discharge Plan - Discharge Medications Prescriptions: Insulin Detemir [Levemir] 25 unit SC HS 30 Days unit Insulin Human Regular [HumuLIN R] 10 units SC AC 30 Days ml Warfarin [Coumadin] 10 mg PO 1800 #30 tab - Follow Up Plan Condition: FAIR Disposition: HOME/ ROUTINE Patient education suggested?: Yes Instructions: Shortness of Breath (Dyspnea) (DC), Heart Failure (DC), Heart Failure (GEN), Pacemaker (DC), Pacemaker (GEN), Pulmonary Edema (DC), Pulmonary Edema (GEN), Ascites (DC), Ascites (GEN) Additional Instructions: 1. Follow up with PMD within 1 week. 2. Follow up with principal systems architect as indicated. 3. Follow up with validation architect as indicated. 4. Resume all home medications, new scripts sent to [facility]: Warfarin 10mg PO 1800. 5. Contact PMD or return to ER for any worsening symptoms or concerns. <Axel Villagomez - Last Filed: 07/30/18 18:11> Provider - Provider Date of Admission: 07/27/18 18:55 Attending physician: Axel Villagomez MD Consults: 07/27/18 18:21 Consult [Physician Consult] Routine Comment: Consulting Provider: Tia Rajan Consulting Physician: Tia Rajna Reason for Consult: SOB 07/27/18 18:22 Consult [Physician Consult] Routine Comment: Consulting Provider: Tia Godinez Consulting Physician: Tia Godinez Reason for Consult: SOB 07/27/18 20:17 Case Management Referral Routine Comment: NEEDS ASSISTANCE AT HOME Physician Instructions: Reason For Exam: EVALUATION Reason for Referral: Experimental Technician Eval Inpatient INCINERATOR ATTENDANT Core Measures Referral Routine Comment: Physician Instructions: Reason For Exam: EVALUATION Transition In Care/Readmission Reduction Routine Comment: Physician Instructions: Reason For Exam: EVALUATION 07/27/18 20:21 Nursing Referral for Palliative Care Routine Comment: Physician Instructions: Reason For Exam: EVALUATION Social Work Referral Routine Comment: DISCHARGE PLANNING WITH ASSISTANCE AT HOME Physician Instructions: Reason For Exam: EVALUATION Hospital Course - Lab Results Lab Results: Most Recent Lab Values WBC 19.1 10^3/uL (4.5-11.0) H D 07/30/18 07:00 RBC 5.09 10^6/uL (3.5-6.1) 07/30/18 07:00 Hgb 14.2 g/dL (14.0-18.0) 07/30/18 07:00 Hct 43.0 % (42.0-52.0) 07/30/18 07:00 MCV 84.5 fl (80.0-105.0) 07/30/18 07:00 MCH 27.9 pg (25.0-35.0) 07/30/18 07:00 MCHC 33.0 g/dl (31.0-37.0) 07/30/18 07:00 RDW 18.6 % (11.5-14.5) H 07/30/18 07:00 Plt Count 191 10^3/uL (120.0-450.0) 07/30/18 07:00 MPV 10.4 fl (7.0-11.0) 07/30/18 07:00 Neut % (Auto) 90.7 % (50.0-68.0) H 07/30/18 07:00 Lymph % (Auto) 4.1 % (22.0-35.0) L 07/30/18 07:00 Coffey % (Auto) 5.1 % (1.0-6.0) 07/30/18 07:00 Eos % (Auto) 0.0 % (1.5-5.0) L 07/30/18 07:00 Baso % (Auto) 0.1 % (0.0-3.0) 07/30/18 07:00 Lymph # (Auto) 0.8 (1.2-3.4) L 07/30/18 07:00 Coffey # (Auto) 1.0 (0.1-0.6) H 07/30/18 07:00 Eos # (Auto) 0.0 (0.0-0.7) 07/30/18 07:00 Baso # (Auto) 0.01 K/mm3 (0.0-2.0) 07/30/18 07:00 Absolute Neuts (auto) 17.33 (1.4-6.5) H 07/30/18 07:00 Neutrophils % (Manual) 97 % (50.0-70.0) H 07/30/18 07:00 Lymphocytes % (Manual) 3 % (22.0-35.0) L 07/30/18 07:00 Monocytes % (Manual) TEST NOT PERFORMED 07/30/18 07:00 Platelet Evaluation Normal (NORMAL) 07/30/18 07:00 PT 18.2 SECONDS (9.4-12.5) H 07/30/18 07:00 INR 1.61 07/30/18 07:00 APTT 33.7 Seconds (26.9-38.3) 07/30/18 07:00 pO2 118 mm/Hg (30-55) H 07/27/18 15:40 VBG pH 7.43 (7.32-7.43) 07/27/18 15:40 VBG pCO2 32.0 (40-60) L 07/27/18 15:40 VBG HCO3 21.2 mmol/l (21-28) 07/27/18 15:40 VBG Total CO2 22.2 mmol.L (22-28) 07/27/18 15:40 VBG O2 Sat (Calc) 98.3 % (40-65) H 07/27/18 15:40 VBG Base Excess -2.3 mmol/L (0.0-2.0) L 07/27/18 15:40 VBG Potassium 4.5 mmol/L (3.6-5.2) 07/27/18 15:40 Sodium 134.0 mmol/L (132-148) 07/27/18 15:40 Chloride 100.0 mmol/L (98-107) 07/27/18 15:40 Glucose 281 mg/dl (75-110) H 07/27/18 15:40 Lactate 2.7 mmol/L (0.7-2.1) H 07/27/18 15:40 FiO2 21.0 % 07/27/18 15:40 Crit Value Called To Verna watson 07/27/18 15:40 Crit Value Called By Atc 07/27/18 15:40 Blood Gas Notified Time 1550 07/27/18 15:40 Sodium 135 mmol/L (132-148) 07/30/18 07:00 Potassium 4.5 mmol/L (3.6-5.0) 07/30/18 07:00 Chloride 94 mmol/L (98-107) L 07/30/18 07:00 Carbon Dioxide 29 mmol/L (21-33) 07/30/18 07:00 Anion Gap 16 (10-20) 07/30/18 07:00 BUN 71 mg/dL (7-21) H 07/30/18 07:00 Creatinine 1.7 mg/dl (0.8-1.5) H 07/30/18 07:00 Est GFR ( Amer) 50 07/30/18 07:00 Est GFR (Non-Af Amer) 41 07/30/18 07:00 POC Glucose (mg/dL) 163 mg/dL (65-110) H 07/30/18 06:17 Random Glucose 136 mg/dL (70-110) H 07/30/18 07:00 Calcium 9.9 mg/dL (8.4-10.5) 07/30/18 07:00 Phosphorus 5.0 mg/dL (2.5-4.5) H 07/30/18 07:00 Magnesium 2.2 mg/dL (1.7-2.2) 07/30/18 07:00 Total Bilirubin 0.4 mg/dL (0.2-1.3) 07/30/18 07:00 AST 18 U/L (17-59) 07/30/18 07:00 ALT 15 U/L (7-56) 07/30/18 07:00 Alkaline Phosphatase 66 U/L (38-126) 07/30/18 07:00 Lactate Dehydrogenase 455 U/L (333-699) 07/27/18 11:10 Total Creatine Kinase 84 U/L (35-230) 07/27/18 11:10 Troponin I 0.06 ng/mL 07/27/18 11:10 NT-Pro-B Natriuret Pep 1910 pg/mL (0-450) H 07/27/18 11:10 Total Protein 7.6 g/dL (5.8-8.3) 07/30/18 07:00 Albumin 4.5 g/dL (3.0-4.8) 07/30/18 07:00 Globulin 3.2 gm/dL 07/30/18 07:00 Albumin/Globulin Ratio 1.4 (1.1-1.8) 07/30/18 07:00 Venous Blood Potassium 4.5 mmol/L (3.6-5.2) 07/27/18 15:40 - Hospital Course Hospital Course: Pt seen and examined by me. I have reviewed the note of the medical office administrator and I agree with it. I have discussed the assessment and plan with the resident. I have reviewed the medications and the last labs.
--- NOTE | 2018-07-30 12:53 | PN ---
DATE: 07/30/2018 PULMONARY PROGRESS NOTE REFERRING PHYSICIAN: Dr. Villagomez. SUBJECTIVE: The patient is seen sitting in armchair in room. No acute distress. Reports feeling well today. No headache, rhinitis, cough, shortness of breath, chest pain, abdominal pain, nausea, vomiting, diarrhea, leg pain or leg swelling reported. OBJECTIVE: GENERAL: No acute distress. VITAL SIGNS: Blood pressure 106/71, pulse 78, temperature 97.6, oxygen saturation 93% on room air. HEENT: Moist mucous membranes. Crowded airway. Mallampati score 4. NECK: Supple. No JVD. LUNGS: Fair airflow bilaterally. CARDIOVASCULAR: S1, S2. ABDOMEN: Soft, nontender. No distension. No organomegaly. EXTREMITIES: No bilateral lower extremity edema. NEUROLOGICAL: Awake, alert, and verbal. Following commands. MEDICATIONS: Reviewed. DuoNeb 3 mL inhalation three times a day, Zithromax 500 mg daily, Cardizem 30 mg twice a day, Lovenox 120 mg subcu every 12 hours, Flonase nasal spray twice a day, Lasix 40 mg twice a day, Neurontin 300 mg twice a day, glimepiride 4 mg daily, Levemir 22 units subcu h.s., Humulin R sliding scale a.c. and h.s., Humulin R 10 units subcu a.c. and h.s., lisinopril 2.5 mg daily, Ativan 1 mg twice a day, Singulair 10 mg at bedtime, Percocet 10/325 mg one tab every 6 hours p.r.n., Protonix 40 mg at bedtime, ReQuip 0.5 mg at bedtime, Aldactone 25 mg twice a day, trazodone 150 mg h.s., Coumadin 10 mg daily. LABORATORY DATA: Reviewed. WBC 19.1, RBC 5.09, hemoglobin 14.2, hematocrit 43, platelets 191. PT 18.2, INR 1.61, APTT 33.7. Sodium 135, potassium 4.5, chloride 94, carbon dioxide of 29, anion gap of 16, BUN 71, creatinine 1.7. GFR 41. Random glucose 136, calcium 9.9, phosphorus 5, magnesium 2.2, total bilirubin 0.4. AST 18, ALT 15, alkaline phosphatase 66, total protein 7.6, albumin 4.5, globulin 3.2, albumin globulin ratio 1.4. Chest x-ray shows no active disease. IMPRESSION AND PLAN: Cardiomyopathy, coronary artery disease, history of coronary stents, cardiac arrhythmia requiring ablation in the past, automatic implantable cardioverter-defibrillator placement, chronic obstructive lung disease, hypertension, diabetes, morbid obesity. The patient also has history of sleep apnea for which he has lost weight and last sleep study showed no sleep apnea. Pulmonary point of view, the patient is being discharged home today. Prescription for Symbicort 2 puffs twice a day, Ventolin HFA 2 puffs every 4 hours as needed and Singulair 10 mg one tablet at bedtime called in to [facility]. Recommend pulmonary function test as outpatient. Gastric prophylaxis. Head of bed elevated at 45 degrees. The patient was seen and examined with Dr. Godinez. Discussed assessment and plan as described above. The patient was seen and examined by Francisco Yates, nurse practitioner. Discussed assessment and plan as described above. Thank you for this consult. We will follow with you. Trudy Singh APN Tia Godinez MD
--- NOTE | 2018-07-31 03:09 | DS ---
HISTORY OF PRESENT ILLNESS: The patient was seen and examined. I do agree with the note of the director of graduate medical education. I was involved in the plan of care. The patient had initially come into the hospital because of an acute chronic obstructive pulmonary disease exacerbation. He had improvement of his symptoms after he began getting steroids and nebulizer treatments. The patient's diabetes was uncontrolled because of the steroids. They could be tapered and the patient's insulin regimen was increased to help control his diabetes. He has no complaints of any chest pain or shortness of breath, no headaches or dizziness. His chest x-ray that was done did not show any significant abnormalities. The patient is going to be discharged home today. His Coumadin was increased. He is on trazodone for his sleeping. The patient is on aspirin for his coronary artery disease. He will follow up with me in my office in 1 to 2 weeks. Axel Villagomez MD
== END 2018-07-30 12:00 | disposition home or self-care (01) | DRG 190 ==
LOC: ED 10:50 → ERH 13:16 → 2RNO 15:09 → OBSVTOIN 18:55 → 2RNO 07-28 15:45 → 5RNO 07-30 02:40
PROVIDERS: ADMIT Internal Medicine Nephrology; ATTEND Internal Medicine Nephrology
DX: J44.1 Chronic obstructive pulmonary disease with (acute) exacerbation (principal); I50.23 Acute on chronic systolic (congestive) heart failure; Z68.41 Body mass index [BMI] 40.0-44.9, adult; I42.9 Cardiomyopathy, unspecified; Z87.891 Personal history of nicotine dependence; Z95.5 Presence of coronary angioplasty implant and graft; I11.0 Hypertensive heart disease with heart failure; I48.91 Unspecified atrial fibrillation; I25.10 Atherosclerotic heart disease of native coronary artery without angina pectoris; G47.33 Obstructive sleep apnea (adult) (pediatric); E11.65 Type 2 diabetes mellitus with hyperglycemia; Z79.01 Long term (current) use of anticoagulants; E66.01 Morbid (severe) obesity due to excess calories; E11.51 Type 2 diabetes mellitus with diabetic peripheral angiopathy without gangrene; I50.84 End stage heart failure; F31.9 Bipolar disorder, unspecified; H54.7 Unspecified visual loss; H91.90 Unspecified hearing loss, unspecified ear; K21.9 Gastro-esophageal reflux disease without esophagitis; R79.1 Abnormal coagulation profile; T38.0X5A Adverse effect of glucocorticoids and synthetic analogues, initial encounter; Z79.82 Long term (current) use of aspirin; Z79.899 Other long term (current) drug therapy; Z86.718 Personal history of other venous thrombosis and embolism; Z91.19 Patient's noncompliance with other medical treatment and regimen; Z95.0 Presence of cardiac pacemaker; Z96.642 Presence of left artificial hip joint; Z98.84 Bariatric surgery status

== ENCOUNTER 2018-08-03 15:20 | Inpatient (IN) | payer MEDICARE, OTHER ==
[2018-08-03 15:21] VITALS: PULSE 74; BMI 41.0
--- NOTE | 2018-08-03 16:15 | ED PDOC ---
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 Patient reports discharge from [facility] on Sunday and gradual worsening of symptoms since then. He notes associated phlegm in cough and states that he currently "can't think straight." Patient denies any fevers, chills, headache, abdominal pain, nausea, vomiting, diarrhea, back pain, neck pain, or any other complaints. 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 QUIT 25 YRS AGO.) Hx Bronchitis: Yes Hx Chronic Obstructive Pulmonary Disease (COPD): Yes Hx Emphysema: Yes - Neurological Hx Neurological Disorder: Yes Hx Dizziness: Yes - HEENT Hx HEENT Disorder: Yes Hx Blind: Yes (HX eye sugery) Hx Deafness: Yes - Renal Hx Renal Disorder: No - Endocrine/Metabolic Hx Endocrine Disorders: Yes Hx Diabetes Mellitus Type 2: Yes - Hematological/Oncological Hx Blood Disorders: No - Integumentary Hx Dermatological Disorder: No - Musculoskeletal/Rheumatological Hx Falls: Yes (s/p fall prior to admission) - Gastrointestinal Hx Gastrointestinal Disorders: Yes (gastric bypass surgery) Hx Gastroesophageal Reflux: Yes - Genitourinary/Gynecological Hx Genitourinary Disorders: Yes - Psychiatric Hx Psychophysiologic Disorder: Yes Hx Anxiety: Yes Hx Bipolar Disorder: Yes Hx Depression: Yes Hx Substance Use: No - Past Surgical History Past Surgical History: Non-Contributing - Surgical History Hx Cardiac Catheterization: Yes Hx Coronary Stent: Yes Hx Gastric Bypass Surgery: Yes - Anesthesia Hx Anesthesia: Yes Hx Anesthesia Reactions: No Hx Malignant Hyperthermia: No - Suicidal Assessment Feels Threatened In Home Enviroment: No Family/Social History - Physician Review Nursing Documentation Reviewed: Yes Family/Social History: Unknown Family HX Smoking Status: Former Smoker Hx Alcohol Use: No Hx Substance Use: No Hx Substance Use Treatment: No Allergies/Home Meds Allergies/Adverse Reactions: Allergies quetiapine fumarate [From Seroquel] Adverse Reaction (Verified 07/27/18 15:42) ANAPHYLAXIS wild berries Allergy (Intermediate, Uncoded 07/27/18 15:42) RASH Review of Systems - Physician Review All systems were reviewed & negative as marked: Yes - Review of Systems Constitutional: absent: Fevers Respiratory: SOB, Cough Cardiovascular: Chest Pain Gastrointestinal: absent: Vomiting Physical Exam - Physical Exam Narrative Physical Exam (Text): 08/03/18 16:12 Constitutional: No acute distress. Head: Normocephalic. Atraumatic. Eyes: PERRL. ENT: Moist mucous membranes. Neck: Supple. Cardiovascular: Regular rate. Chest: No tenderness. Respiratory: Expiratory wheezing bilaterally GI: Soft. Nontender. Nondistended. Back: No CVA tenderness. Musculoskeletal: No tenderness of extremities. Skin: Pitting edema bilaterally in lower extremities Neurologic: Alert, no focal deficit. Vital Signs Reviewed: Yes Temperature: Afebrile Blood Pressure: Normal Pulse: Regular Respiratory Rate: Normal Appearance: Positive for: Well-Appearing, Non-Toxic, Comfortable Pain Distress: None Mental Status: Positive for: Alert and Oriented X 3 Medical Decision Making ED Course and Treatment: 08/03/18 16:18 Impression: 58 year old male presents to emergency department for chest pain and shortness of breath since Sunday. Plan: -- Labs -- Chest X-ray -- Duoneb -- Lasix -- Solu-Medrol -- Reassess and disposition Prior Visits: Notes and results from previous visits were reviewed. Progress Notes: 08/03/18 16:19 EKG: Ordered, reviewed, and independently interpreted the EKG. Rate : 76 BPM Rhythm : Ventricularly paced rhythm Interpretation : No ST-segment elevations CXR no pneumonia. - Scribe Statement The provider has reviewed the documentation as recorded by the Scribe Racheal Donato All medical record entries made by the Scribe were at my direction and personally dictated by me. I have reviewed the chart and agree that the record accurately reflects my personal performance of the history, physical exam, medical decision making, and the department course for this patient. I have also personally directed, reviewed, and agree with the discharge instructions and disposition. Disposition/Present on Arrival - Present on Arrival Any Indicators Present on Arrival: No History of DVT/PE: No History of Uncontrolled Diabetes: No Urinary Catheter: No History of Decub. Ulcer: No History Surgical Site Infection Following: None - Disposition Have Diagnosis and Disposition been Completed?: Yes Diagnosis: COPD exacerbation, CHF exacerbation Disposition: HOSPITALIZED Disposition Time: 19:00 Patient Plan: Observation, Telemetry Condition: FAIR Discharge Instructions (ExitCare): Heart Failure (ED) Forms: [facility] (Turkmen)
[2018-08-03] MEDS: Albuterol-Ipratrop 3 mg / 0.5 (3 ml) UD IH SCH ×3 (16:26→17:35)
[2018-08-03 16:30] LABS: BASO # 0.02 K/mm3 (0.0-2.0); BASO % 0.1 % (0.0-3.0); EOS # 0.3 (0.0-0.7); EOS % 1.9 % (1.5-5.0); HEMOGLOBIN 13.6 g/dL (14.0-18.0); LYMPH # 1.4 (1.2-3.4); LYMPH % 10.5 % (22.0-35.0); MEAN CELL VOLUME 84.4 fl (80.0-105.0); MEAN CORPUSCULAR HEMOGLOBIN 27.5 pg (25.0-35.0); MEAN CORPUSCULAR HGB CONC 32.6 g/dl (31.0-37.0); MEAN PLATELET VOLUME 10.5 fl (7.0-11.0); MONO % 7.3 % (1.0-6.0); RBC 4.94 10^6/uL (3.5-6.1); RED CELL DISTRIBUTION WIDTH 18.6 % (11.5-14.5); WHITE BLOOD COUNT 13.5 10^3/uL (4.5-11.0)
[2018-08-03 16:33] LABS: INR 3.26; PARTIAL THROMBOPLASTIN TIME 44.9 Seconds (26.9-38.3); PROTHROMBIN TIME 36.2 SECONDS (9.4-12.5)
[2018-08-03 16:55] LABS: ALB/GLOB RATIO 1.5 (1.1-1.8); ALBUMIN 4.1 g/dL (3.0-4.8); ALT/SGPT 27 U/L (7-56); AST/SGOT 26 U/L (17-59); B-TYPE NATRIURETIC PEPTIDE 3100 pg/mL (0-450); BLOOD UREA NITROGEN 46 mg/dL (7-21); CALCIUM 9.2 mg/dL (8.4-10.5); GFR NON-AFRICAN AMERICAN > 60; TROPONIN I 0.09 ng/mL
[2018-08-04] MEDS ORDERED: Insulin Regular 1 UNITS/0.01 ML ML SC STA (08:20)
--- NOTE | 2018-08-04 09:50 | RAD ---
Date of service: 08/03/2018 HISTORY: dyspnea COMPARISON: 07/30/2018 TECHNIQUE: 1 view obtained. FINDINGS: LUNGS: No active pulmonary disease. PLEURA: No significant pleural effusion identified, no pneumothorax apparent. CARDIOVASCULAR: No aortic atherosclerotic calcification present. Moderate cardiomegaly no pulmonary vascular congestion. OSSEOUS STRUCTURES: No significant abnormalities. VISUALIZED UPPER ABDOMEN: Normal. OTHER FINDINGS: Pacemaker IMPRESSION: No active disease.
--- NOTE | 2018-08-04 10:58 | CT ---
Date of service: 08/04/2018 PROCEDURE: CT Chest without contrast HISTORY: r/o pneumonia COMPARISON: None available. TECHNIQUE: Contiguous axial images were obtained through the chest without intravenous contrast enhancement. Sagittal and coronal reconstructions were performed. Radiation dose: Total exam DLP = 888.84 mGy-cm. This CT exam was performed using one or more of the following dose reduction techniques: Automated exposure control, adjustment of the mA and/or kV according to patient size, and/or use of iterative reconstruction technique. FINDINGS: LUNGS: Clear lungs. Visualized airway clear MEDIASTINUM: Unremarkable thoracic aorta. No aneurysm. Normal sized heart. Main pulmonary artery unremarkable. No vascular congestion. No lymphadenopathy. Minimal aortic calcification. PLEURA: No pleural fluid. No pneumothorax. BONES: No fracture. No destructive lesion. UPPER ABDOMEN: There is a 3.5 cm low-density adrenal adenoma in the left kidney OTHER FINDINGS: None. IMPRESSION: Unremarkable non-contrast enhanced CT of the chest. No evidence of pneumonia
[2018-08-04] MEDS ORDERED: Insulin Reg-MEDIUM-Coverage SC SCH (11:30)
[2018-08-04] MEDS ORDERED: Oxycodone/Acetaminophen 10/325 mg Tab PO PRN (11:31)
[2018-08-04] MEDS ORDERED: Albuterol-Ipratrop 3 mg / 0.5 (3 ml) UD IH PRN (11:36)
[2018-08-04] MEDS: Insulin Detemir 100 units/ml Vial (Levemir) SC SCH ×2 (13:12→22:04)
[2018-08-04] MEDS: cefTRIAXone 1 gm 1 GM/100 ML BAG IVPB SCH (13:14)
[2018-08-04] MEDS: Azithromycin 500MG/NS 250ml 500 MG/250 ML BAG IVPB SCH (13:16)
--- NOTE | 2018-08-04 13:30 | CARD ---
APPROVED REPORT Date of service: 08/03/2018 EKG Measurement Heart [id number] <Conclusion> Ventricular paced rhythm with occasional premature ventricular complexes Underlying atrial fibrillation Abnormal ECG
[2018-08-04] MEDS: Albuterol-Ipratrop 3 mg / 0.5 (3 ml) UD IH SCH ×2 (13:50→20:34)
--- NOTE | 2018-08-04 20:23 | HP ---
DATE OF EXAM: 08/04/2018 HISTORY OF PRESENT ILLNESS: The patient is 58-year-old white male, known to me from multiple previous admissions, come to emergency room because of increasing cough and shortness of breath. The patient claims that he is compliant with his medication. He also complains of some chest pressure. The patient was recently discharged three days ago from [facility] because of above-mentioned symptoms. The patient does complain of cough with some yellow phlegm. He does not have any history of fever or chills. No history of hemoptysis. No hematemesis. The patient was seen sitting in chair, seems to be comfortable now. PAST MEDICAL HISTORY: He does have past medical history significant for: 1. Advanced COPD, on home oxygen. 2. Congestive heart failure, systolic with ejection fraction of 36%. 3. Morbid obesity. 4. Obstructive sleep apnea. 5. Coronary artery disease, status post multiple angioplasty. 6. Insulin-dependent diabetes. 7. Chronic AFib, on oral anticoagulant. 8. History of DVT, on Coumadin. 9. History of pacemaker placement and defibrillator placement. 10. He does have psych history of bipolar disorder and problem with anger management. ALLERGY: HE IS ALLERGIC TO SEROQUEL AND WILD BERRIES. MEDICATIONS AT HOME: As per MAR; he is on trazodone 150 daily, ReQuip 0.5 at bedtime, diltiazem 30 mg twice a day, Coumadin 10 mg daily, Aldactone 25 twice a day. He is on Percocet, Singulair 10 mg daily, metformin 1000 twice a day, lisinopril 2.5 daily, lorazepam 1 mg twice a day. He is on Humalog 25 twice a day and Novolog 10 units before each meal and folic acid. He is on Flonase. He is on B12. SOCIAL HISTORY: He is single, used to be heavy smoker and quit 25 years ago. He does have history of drug use and alcohol use. PHYSICAL EXAMINATION: GENERAL: He is sitting in chair, seems to be comfortable. VITAL SIGNS: He is afebrile, pulse 69, respirations 18, and blood pressure 104/58. LUNGS: Bilateral few expiratory rhonchi. HEART: S1 and S2 audible. ABDOMEN: Soft, obese, and nontender. No rebound. No guarding. NEUROLOGIC: The patient is awake and alert; able to communicate. Answers appropriately. No focal deficit. EXTREMITIES: Bilateral leg, edema. LABORATORY EXAMINATION: WBC 13.5, hemoglobin 13.6, hematocrit 41.7, and platelets of 199. PT 36.2 and INR 3.26. Chemistry; sodium 135, potassium 4.8, chloride 96, CO2 of 27, BUN 46, creatinine 1.2, and blood sugar of 358. LFTs are within normal limits. BNP 3100. He had x-ray of chest that was unremarkable. Ordered CT of the chest, there is no sign of pneumonia. ASSESSMENT: 1. Probably asthmatic bronchitis. 2. History of chronic obstructive pulmonary disease. 3. History of congestive heart failure. 4. Coronary artery disease, status post multiple angioplasty. 5. History of pacemaker placement. 6. Chronic atrial fibrillation. 7. Anxiety disorder. PLAN: We will resume the patient's medications. We will monitor his blood sugar, start him on nebulizer treatment, and give him IV antibiotic and later on can be switched to p.o. Hopefully, he will improve overnight, and disposition plan and discharge plan in a.. Ridge Velazquez MD
[2018-08-04] MEDS: Insulin Reg-HIGH-Coverage SC SCH (21:51)
[2018-08-04] MEDS: MethylPREDNISolone 40 mg Vial IVP SCH (22:02)
[2018-08-04] MEDS ORDERED: Fluticasone Nasal 50 mcg/Spray NS ONE (22:17)
[2018-08-05] MEDS: Albuterol-Ipratrop 3 mg / 0.5 (3 ml) UD IH SCH ×3 (02:18→13:40)
[2018-08-05 06:45] LABS: EOS % 0.1 % (1.5-5.0); HEMOGLOBIN 12.9 g/dL (14.0-18.0); LYMPH # 0.8 (1.2-3.4); LYMPH % 4.8 % (22.0-35.0); MEAN CELL VOLUME 83.7 fl (80.0-105.0); MEAN CORPUSCULAR HGB CONC 32.3 g/dl (31.0-37.0); MEAN PLATELET VOLUME 9.9 fl (7.0-11.0); MONO # 0.3 (0.1-0.6); MONO % 1.8 % (1.0-6.0); PLATELET COUNT 200 10^3/uL (120.0-450.0); RBC 4.78 10^6/uL (3.5-6.1); RED CELL DISTRIBUTION WIDTH 18.3 % (11.5-14.5); WHITE BLOOD COUNT 17.2 10^3/uL (4.5-11.0)
[2018-08-05 06:49] LABS: INR 2.58; PROTHROMBIN TIME 29.2 SECONDS (9.4-12.5)
[2018-08-05 06:57] LABS: ALB/GLOB RATIO 1.4 (1.1-1.8); ALBUMIN 3.8 g/dL (3.0-4.8); ALT/SGPT 31 U/L (7-56); AST/SGOT 21 U/L (17-59); BLOOD UREA NITROGEN 66 mg/dL (7-21); CALCIUM 9.1 mg/dL (8.4-10.5); GFR NON-AFRICAN AMERICAN 52
[2018-08-05] MEDS: Insulin Reg-HIGH-Coverage SC SCH ×4 (08:24→22:07)
[2018-08-05] MEDS: Insulin Detemir 100 units/ml Vial (Levemir) SC SCH ×2 (08:25→22:10)
[2018-08-05 08:26] LABS: LYMPHOCYTE 5 % (22.0-35.0); MONOCYTE 3 % (1.0-6.0); MYELOCYTE 1 %; NEUTROPHIL 91 % (50.0-70.0)
[2018-08-05 08:27] LABS: PLATELET ESTIMATE NORMAL (NORMAL)
[2018-08-05] MEDS: Azithromycin 500MG/NS 250ml 500 MG/250 ML BAG IVPB SCH (09:36)
[2018-08-05] MEDS: cefTRIAXone 1 gm 1 GM/100 ML BAG IVPB SCH (09:36)
[2018-08-05] MEDS: MethylPREDNISolone 40 mg Vial IVP SCH ×2 (09:38→22:14)
--- NOTE | 2018-08-05 11:46 | CP.PCM.APN ---
Subjective - Date & Time of Evaluation Date of Evaluation: 08/05/18 Time of Evaluation: 09:30 - Subjective Subjective: pt seen and examined at bedside, pt report feeling better, sob improved Review of Systems - Constitutional Constitutional: As Per HPI Objective - Vital Signs/Intake and Output Vital Signs (last 24 hours): Temp Pulse Resp BP Pulse Ox 97.5 F L 70 20 102/65 99 08/05/18 06:00 08/05/18 10:00 08/05/18 06:00 08/05/18 09:38 08/05/18 06:00 Intake and Output: 08/05/18 08/05/18 06:59 18:59 Intake Total 480 Output Total 2 Balance 478 - Medications Medications: Current Medications Albuterol/Ipratropium (Duoneb 3 Mg/0.5 Mg (3 Ml) Ud) 3 ml IH Q2H PRN PRN Reason: Shortness of Breath Albuterol/Ipratropium (Duoneb 3 Mg/0.5 Mg (3 Ml) Ud) 3 ml IH [id number] [facility] Last Admin: 08/05/18 07:41 Dose: Not Given Diltiazem HCl (Cardizem) 30 mg PO BID [facility] Last Admin: 08/05/18 09:38 Dose: 30 mg Folic Acid (Folic Acid) 1 mg PO DAILY [facility] Last Admin: 08/05/18 09:37 Dose: 1 mg Furosemide (Lasix) 40 mg IVP Q12 [facility] Last Admin: 08/05/18 09:38 Dose: 40 mg Gabapentin (Neurontin) 300 mg PO BID [facility]; Protocol Last Admin: 08/05/18 09:37 Dose: 300 mg Glimepiride (Amaryl) 4 mg PO 0800 [facility] Last Admin: 08/05/18 08:25 Dose: 4 mg Ceftriaxone Sodium (Rocephin 1 Gram Ivpb) 1 gm in 100 mls @ 100 mls/hr IVPB DAILY [facility]; Protocol Stop: 08/08/18 10:59 Last Admin: 08/05/18 09:36 Dose: 100 mls/hr Azithromycin (Zithromax 500mg In Ns) 500 mg in 250 mls @ 167 mls/hr IVPB DAILY [facility]; Protocol Last Admin: 08/05/18 09:36 Dose: 167 mls/hr Insulin Detemir (Levemir) 25 unit SC [facility] Last Admin: 08/04/18 22:04 Dose: 25 u Insulin Detemir (Levemir) 25 unit SC ACB [facility] Last Admin: 08/05/18 08:25 Dose: 25 units Insulin Human Regular (Humulin R High) 0 units SC ACHS [facility]; Protocol Last Admin: 08/05/18 08:24 Dose: 7 units Lisinopril (Zestril) 2.5 mg PO DAILY [facility] Last Admin: 08/05/18 09:37 Dose: 2.5 mg Lorazepam (Ativan) 1 mg PO BID [facility]; Protocol PRN Reason: Anxiety Last Admin: 08/04/18 22:09 Dose: 1 mg Metformin HCl (Glucophage) 1,000 mg PO BID [facility] Last Admin: 08/05/18 09:37 Dose: 1,000 mg Methylprednisolone (Solu-Medrol) 20 mg IVP Q12 [facility] Last Admin: 08/05/18 09:38 Dose: 20 mg Montelukast Sodium (Singulair) 10 mg PO [facility] Last Admin: 08/04/18 22:05 Dose: 10 mg Oxycodone/Acetaminophen (Percocet 10/325 Mg Tab) 1 tab PO Q12 PRN PRN Reason: Pain, moderate (4-7) Roflumilast (Daliresp) 250 mcg PO DAILY [facility] Ropinirole HCl (Requip) 0.5 mg PO [facility] Last Admin: 08/04/18 22:05 Dose: 0.5 mg Spironolactone (Aldactone) 25 mg PO BID [facility] Last Admin: 08/05/18 09:38 Dose: 25 mg Trazodone HCl (Desyrel) 150 mg PO [facility] Last Admin: 08/04/18 22:05 Dose: 150 mg Warfarin Sodium (Coumadin) 2 mg PO 1800 [facility]; Protocol Last Admin: 08/04/18 18:27 Dose: 2 mg - Labs Labs: 08/05/18 06:30 08/05/18 06:30 PT 29.2 SECONDS (9.4-12.5) H 08/05/18 06:30 INR 2.58 08/05/18 06:30 APTT 44.9 Seconds (26.9-38.3) H 08/03/18 16:15 - Constitutional Appears: No Acute Distress - Eye Exam Eye Exam: EOMI Pupil Exam: NORMAL ACCOMODATION - ENT Exam ENT Exam: Normal Exam - Respiratory Exam Respiratory Exam: Decreased Breath Sounds - Cardiovascular Exam Cardiovascular Exam: Irregular Rhythm, +S1, +S2 - GI/Abdominal Exam GI & Abdominal Exam: Soft, Normal Bowel Sounds - Extremities Exam Extremities Exam: Normal Capillary Refill - Skin Skin Exam: Dry, Intact Assessment and Plan - Assessment and Plan (Free Text) Plan: ITS Impressions Chest X-Ray 08/03/18 16:12 IMPRESSION: No active disease. Chest CT 08/04/18 09:14 IMPRESSION: Unremarkable non-contrast enhanced CT of the chest. No evidence of pneumonia A/P 58 yr old male with pmh sig for copd on home O2, afib, dvt, exsmoker admitted with cp and SOB since Sunday. pt is now admitted for further eval and treatment with pulm and cardiology eval, pt with IV antibiotics, IV steroids and iV IV diuretics. Per pmd, plan for possible TCU, discuss plan with cm and TCU staff, will follow. tcu eval entered BPCI/TIC - BPCIA/TIC Educated pt/family on BPCIA/CIR/Med to Bed Programs: N/A Flyers given, including [facility] [address] Beneficiary letter: N/A Pt/family verbalized understanding & agreed to program: N/A
[2018-08-05] MEDS ORDERED: Albuterol 0.5% Inhal Sol (2.5 mg/0.5 ml) UD IH PRN (13:45)
--- NOTE | 2018-08-05 13:51 | CP.PCM.PN ---
<Deonte Bland - Last Filed: 08/05/18 13:40> Subjective - Date & Time of Evaluation Date of Evaluation: 08/05/18 Time of Evaluation: 07:10 - Subjective Subjective: Deonte Bland D.O. PGY-3, Internal Medicine Resident, Dr. Villagomez's Service, Progress Note 58-year-old male with a past medical history COPD on home oxygen at 2 L, heart failure with reduced ejection fraction of approximately 36% status post AICD, CAD status post PCI, diabetes type 2, atrial fibrillation and previous DVT on Coumadin therapy who presented back after recently being discharged for complaints of worsening shortness of breath. Patient was seen and examined at bedside. Patient relates so he was having severe difficulty with his breathing within days after he left. States that at this time he does feel somewhat more comfortable. Trying to stay active. Objective - Vital Signs/Intake and Output Vital Signs (last 24 hours): Temp Pulse Resp BP Pulse Ox 97.5 F L 70 20 102/65 99 08/05/18 06:00 08/05/18 10:00 08/05/18 06:00 08/05/18 09:38 08/05/18 06:00 Intake and Output: 08/05/18 08/05/18 06:59 18:59 Intake Total 480 Output Total 2 Balance 478 - Medications Medications: Current Medications Albuterol/Ipratropium (Duoneb 3 Mg/0.5 Mg (3 Ml) Ud) 3 ml IH Q2H PRN PRN Reason: Shortness of Breath Albuterol/Ipratropium (Duoneb 3 Mg/0.5 Mg (3 Ml) Ud) 3 ml IH [id number] [facility] Last Admin: 08/05/18 07:41 Dose: Not Given Diltiazem HCl (Cardizem) 30 mg PO BID [facility] Last Admin: 08/05/18 09:38 Dose: 30 mg Folic Acid (Folic Acid) 1 mg PO DAILY [facility] Last Admin: 08/05/18 09:37 Dose: 1 mg Furosemide (Lasix) 40 mg IVP Q12 [facility] Last Admin: 08/05/18 09:38 Dose: 40 mg Gabapentin (Neurontin) 300 mg PO BID [facility]; Protocol Last Admin: 08/05/18 09:37 Dose: 300 mg Glimepiride (Amaryl) 4 mg PO 0800 [facility] Last Admin: 08/05/18 08:25 Dose: 4 mg Ceftriaxone Sodium (Rocephin 1 Gram Ivpb) 1 gm in 100 mls @ 100 mls/hr IVPB DAILY [facility]; Protocol Stop: 08/08/18 10:59 Last Admin: 08/05/18 09:36 Dose: 100 mls/hr Azithromycin (Zithromax 500mg In Ns) 500 mg in 250 mls @ 167 mls/hr IVPB DAILY [facility]; Protocol Last Admin: 08/05/18 09:36 Dose: 167 mls/hr Insulin Detemir (Levemir) 25 unit SC HS [facility] Last Admin: 08/04/18 22:04 Dose: 25 u Insulin Detemir (Levemir) 25 unit SC ACB [facility] Last Admin: 08/05/18 08:25 Dose: 25 units Insulin Human Regular (Humulin R High) 0 units SC ACHS [facility]; Protocol Last Admin: 08/05/18 11:45 Dose: 10 units Lisinopril (Zestril) 2.5 mg PO DAILY [facility] Last Admin: 08/05/18 09:37 Dose: 2.5 mg Lorazepam (Ativan) 1 mg PO BID PR[facility]; Protocol PRN Reason: Anxiety Last Admin: 08/04/18 22:09 Dose: 1 mg Metformin HCl (Glucophage) 1,000 mg PO BID [facility] Last Admin: 08/05/18 09:37 Dose: 1,000 mg Methylprednisolone (Solu-Medrol) 20 mg IVP Q12 [facility] Last Admin: 08/05/18 09:38 Dose: 20 mg Montelukast Sodium (Singulair) 10 mg PO HS [facility] Last Admin: 08/04/18 22:05 Dose: 10 mg Oxycodone/Acetaminophen (Percocet 10/325 Mg Tab) 1 tab PO Q12 PRN PRN Reason: Pain, moderate (4-7) Roflumilast (Daliresp) 250 mcg PO DAILY [facility] Last Admin: 08/05/18 11:48 Dose: 250 mcg Ropinirole HCl (Requip) 0.5 mg PO HS [facility] Last Admin: 08/04/18 22:05 Dose: 0.5 mg Spironolactone (Aldactone) 25 mg PO BID [facility] Last Admin: 08/05/18 09:38 Dose: 25 mg Trazodone HCl (Desyrel) 150 mg PO HS [facility] Last Admin: 08/04/18 22:05 Dose: 150 mg Warfarin Sodium (Coumadin) 2 mg PO 1800 [facility]; Protocol Last Admin: 08/04/18 18:27 Dose: 2 mg - Labs Labs: 08/05/18 06:30 08/05/18 06:30 PT 29.2 SECONDS (9.4-12.5) H 08/05/18 06:30 INR 2.58 08/05/18 06:30 APTT 44.9 Seconds (26.9-38.3) H 08/03/18 16:15 - Constitutional Appears: Non-toxic, Chronically Ill - Head Exam Head Exam: ATRAUMATIC, NORMOCEPHALIC - Eye Exam Eye Exam: EOMI. absent: Scleral icterus - ENT Exam ENT Exam: Mucous Membranes Moist, Normal Oropharynx - Respiratory Exam Additional comments: poor air movement, moderate wheezing - Cardiovascular Exam Cardiovascular Exam: Irregular Rhythm, +S1, +S2. absent: Rubs - GI/Abdominal Exam GI & Abdominal Exam: Soft, Normal Bowel Sounds. absent: Tenderness - Extremities Exam Extremities Exam: absent: Calf Tenderness - Neurological Exam Neurological Exam: Alert, Awake, Oriented x3 - Skin Skin Exam: Dry, Warm Assessment and Plan - Assessment and Plan (Free Text) Assessment: 58-year-old male with a past medical history COPD on home oxygen at 2 L, heart failure with reduced ejection fraction of approximately 36% status post AICD, CAD status post PCI, diabetes type 2, atrial fibrillation and previous DVT on Coumadin therapy who presented back after recently being discharged for complaints of worsening shortness of breath. Plan: 1. Acute exacerbation of chronic obstructive pulmonary disease 2. Heart failure with reduced ejection fraction 3. CAD status post PCI 4. Diabetes type 2 5. Atrial fibrillation on Coumadin 6. DVT 7. Anxiety Patient with recurrent admissions for exacerbations of his COPD. We will start the patient on Roflumilast 250 mcg p.o. daily for the next 4 weeks at which time he can increase to the therapeutic thousand 500 mcg. Pulmonary is following, recommendations are appreciated. Continue with scheduled and as needed nebulizer treatments and Solu-Medrol 20 every 12. Per patient request we will also order a albuterol handheld inhaler. We will also continue with patient's montelukast, as well as ceftriaxone and azithromycin for likely bronchitis. For his diabetes we will continue with 25 units of Levemir before breakfast and at night as well as Amaryl and metformin. For his atrial fibrillation we will continue with diltiazem and with his Coumadin. For his CAD and heart failure we will continue with Spironolactone, lisinopril. Currently pending physical therapy evaluation for potential transfer to the transitional care unit. Social work is aware. We will continue with gabapentin. Anxiety doing well, continue with lorazepam and trazodone. Patient was seen and examined and case discussed with attending physician. <Axel Villagomez S - Last Filed: 08/05/18 17:45> Objective - Vital Signs/Intake and Output Vital Signs (last 24 hours): Temp Pulse Resp BP Pulse Ox 98.2 F 75 19 122/79 97 08/05/18 17:35 08/05/18 17:44 08/05/18 17:35 08/05/18 17:35 08/05/18 12:00 Intake and Output: 08/05/18 08/05/18 06:59 18:59 Intake Total 480 Output Total 2 Balance 478 - Medications Medications: Current Medications Acetaminophen (Tylenol 325mg Tab) 650 mg PO Q4H PRN PRN Reason: Pain, moderate (4-7) Albuterol Sulfate (Albuterol 0.5% Inhal [place] (2.5 Mg/0.5 Ml) Ud) 2.5 mg IH [id number] PRN PRN Reason: Shortness of Breath Albuterol/Ipratropium (Duoneb 3 Mg/0.5 Mg (3 Ml) Ud) 3 ml IH Q2H PRN PRN Reason: Shortness of Breath Carbamide Peroxide (Debrox Ear Drops) 1 ml AU BID [facility] Diltiazem HCl (Cardizem) 30 mg PO BID [facility] Last Admin: 08/05/18 17:14 Dose: 30 mg Fluticasone Propionate (Flonase) 1 actuation NS BID [facility] Last Admin: 08/05/18 17:16 Dose: 1 actuation Folic Acid (Folic Acid) 1 mg PO DAILY [facility] Last Admin: 08/05/18 09:37 Dose: 1 mg Furosemide (Lasix) 40 mg IVP Q12 [facility] Last Admin: 08/05/18 09:38 Dose: 40 mg Gabapentin (Neurontin) 300 mg PO BID [facility]; Protocol Last Admin: 08/05/18 17:15 Dose: 300 mg Glimepiride (Amaryl) 4 mg PO 0800 [facility] Last Admin: 08/05/18 08:25 Dose: 4 mg Ceftriaxone Sodium (Rocephin 1 Gram Ivpb) 1 gm in 100 mls @ 100 mls/hr IVPB DAILY [facility]; Protocol Stop: 08/08/18 10:59 Last Admin: 08/05/18 09:36 Dose: 100 mls/hr Azithromycin (Zithromax 500mg In Ns) 500 mg in 250 mls @ 167 mls/hr IVPB DAILY [facility]; Protocol Last Admin: 08/05/18 09:36 Dose: 167 mls/hr Insulin Detemir (Levemir) 25 unit SC HS [facility] Last Admin: 08/04/18 22:04 Dose: 25 u Insulin Detemir (Levemir) 25 unit SC ACB [facility] Last Admin: 08/05/18 08:25 Dose: 25 units Insulin Human Regular (Humulin R High) 0 units SC ACHS [facility]; Protocol Last Admin: 08/05/18 17:14 Dose: 2 units Ipratropium [place] (Atrovent) 0.5 mg IH TIDRESP [facility] Levalbuterol HCl (Xopenex) 0.63 mg IH TIDRESP [facility] Lisinopril (Zestril) 2.5 mg PO DAILY [facility] Last Admin: 08/05/18 09:37 Dose: 2.5 mg Lorazepam (Ativan) 1 mg PO BID [facility]; Protocol PRN Reason: Anxiety Last Admin: 08/05/18 13:41 Dose: 1 mg Metformin HCl (Glucophage) 1,000 mg PO BID [facility] Last Admin: 08/05/18 17:15 Dose: 1,000 mg Methylprednisolone (Solu-Medrol) 20 mg IVP Q12 [facility] Last Admin: 08/05/18 09:38 Dose: 20 mg Montelukast Sodium (Singulair) 10 mg PO HS [facility] Last Admin: 08/04/18 22:05 Dose: 10 mg Oxycodone/Acetaminophen (Percocet 10/325 Mg Tab) 1 tab PO Q12 PRN PRN Reason: Pain, moderate (4-7) Last Admin: 08/05/18 14:36 Dose: 1 tab Roflumilast (Daliresp) 250 mcg PO DAILY [facility] Last Admin: 08/05/18 11:48 Dose: 250 mcg Ropinirole HCl (Requip) 0.5 mg PO HS [facility] Last Admin: 08/04/18 22:05 Dose: 0.5 mg Spironolactone (Aldactone) 25 mg PO BID [facility] Last Admin: 08/05/18 17:15 Dose: 25 mg Trazodone HCl (Desyrel) 150 mg PO HS [facility] Last Admin: 08/04/18 22:05 Dose: 150 mg Warfarin Sodium (Coumadin) 2 mg PO 1800 [facility]; Protocol Last Admin: 08/05/18 17:15 Dose: 2 mg - Labs Labs: 08/05/18 06:30 08/05/18 06:30 PT 29.2 SECONDS (9.4-12.5) H 08/05/18 06:30 INR 2.58 08/05/18 06:30 APTT 44.9 Seconds (26.9-38.3) H 08/03/18 16:15 Assessment and Plan - Assessment and Plan (Free Text) Plan: Pt seen and examined by me. I have reviewed the note of the medical research tech and I agree with it. I have discussed the assessment and plan with the resident. I have reviewed the medications and the last labs.
--- NOTE | 2018-08-05 15:49 | CON ---
DATE: 08/05/2018 PULMONARY CONSULT NOTE REFERRING PHYSICIAN: Axel Villagomez MD REASON FOR CONSULTATION: Shortness of breath, cough, COPD. HISTORY OF PRESENT ILLNESS: This is a 58-year-old male with past medical history significant for end-stage COPD on home oxygen, congestive heart failure, status post AICD placement, pacemaker, sleep apnea syndrome, coronary artery disease, diabetes mellitus, atrial fibrillation, history of DVT, cardiomyopathy, morbid obesity. The patient does have history of sleep apnea, but since losing weight while sleep study shows the patient does not have sleep apnea at this time. The patient came to the emergency room, complaining of chest pain and shortness of breath. He reports being discharged from [facility] last Sunday and since then symptoms have gradually worsened, also reports productive cough at that time in the ER. Today, the patient is seen sitting in armchair in room, states that he get short of breath with exertion, at this time nonproductive cough when he came into the facility, his cough was productive. He reports nasal congestion, also states that he is not able to tolerate DuoNeb nebulizer with like other nebulizer treatments to be given. PAST MEDICAL HISTORY: As per history of present illness. ALLERGIES: QUETIAPINE, FUMARATE, WILD BERRIES. FAMILY HISTORY: No significant cardiopulmonary disease reported. SOCIAL HISTORY: Former smoking. No EtOH abuse. Former illicit drug use. MEDICATIONS: Reviewed. Albuterol 2.5 mg inhalations every 6 hours p.r.n., DuoNeb 3 mL inhalation every 2 hours p.r.n., DuoNeb 3 mL inhalation every 6 hours, Zithromax 500 mg daily, Rocephin 1 g daily, Cardizem 30 mg twice a day, Flonase nasal spray twice a day, folic acid 1 mg daily, Lasix 40 mg every 12 hours, Neurontin 300 mg twice a day, glimepiride 4 mg daily, Levemir 25 units subcutaneous a.c., Levemir 25 units subcutaneous at bedtime, Humulin R sliding scale a.c. and at bedtime, lisinopril 2.5 mg daily, Ativan 1 mg twice a day p.r.n., metformin 1000 mg twice a day, Solu-Medrol 20 mg IV push every 12 hours, Singulair 10 mg at bedtime, Percocet 10/325 mg one tab every 12 hours p.r.n., Daliresp 250 mcg daily, ReQuip 0.5 mg at bedtime, Spironolactone 25 mg twice a day, trazodone 150 mg at bedtime, and Coumadin 2 mg daily. REVIEW OF SYSTEMS: No headache, chest pain, abdominal pain, nausea, vomiting, diarrhea, leg pain or leg swelling reported. The patient does report having shortness of breath with exertion. Nonproductive cough at this time, nasal congestion. PHYSICAL EXAMINATION: GENERAL: No acute distress. VITAL SIGNS: Blood pressure 105/72, pulse 70, temperature 97.5, oxygen saturations 97% on room air. HEENT: Moist mucous membranes. Crowded airway. Mallampati score of 4. NECK: Supple. No JVD. Short and thick. LUNGS: Few scattered rhonchi bilaterally. CARDIOVASCULAR: S1 and S2. ABDOMEN: Soft and nontender. No distension. No organomegaly. EXTREMITIES: Bilateral lower extremity edema. NEUROLOGICAL: Awake, alert and verbal. Following commands. LABORATORY DATA: Reviewed. WBC 17.2, RBC 4.78, hemoglobin 12.9, hematocrit 40, platelets 200. PT 29.2, INR 3.58. Sodium 135, potassium 5, chloride 94, carbon dioxide 26, anion gap 20, BUN 66, creatinine 1.4, GFR 52, POC glucose 292, random glucose 292, calcium 9.1, total bilirubin 0.3, AST 21, ALT 31, alkaline phosphatase 55, total protein 6.5, albumin 3.8, globulin 2.7, albumin and globulin ratio 1.4. EKG shows ventricular pace rhythm with occasional PVCs underlying atrial fibrillation. Chest x-ray show no active disease. Chest CT shows unremarkable noncontrast enhanced CT of the chest, no evidence of pneumonia. IMPRESSION AND PLAN: Chronic obstructive pulmonary disease on home oxygen, congestive heart failure, anemia, cardiomyopathy, coronary artery disease, status post coronary artery bypass graft, history of sleep apnea, which has resolved since losing weight, diabetes mellitus, and atrial fibrillation. The patient currently on anticoagulation therapy, diabetic neuropathy, anxiety, depression. We will discontinue DuoNeb routine and placed the patient on Ativan and Xopenex nebulizer treatment. Continue diuretics, continue Solu-Medrol 20 mg every 12 hours. We will continue inhibitors, continue Daliresp. We will placed the patient on Protonix for gastric prophylaxis. Echocardiogram reviewed from 05/06/2017, shows ejection fraction 36%, RVSP 24%. Cardiology followup. Recommend physical therapy for this patient. Continue antibiotics will prescribed or agree with current antibiotics prescribed. The patient was seen and examined with Dr. Godinez. Discussed assessment and plan as described above. The patient was seen and examined by Francisco Yates, nurse practitioner. Discussed assessment and plan as described above. Thank you for this consult. We will follow with you. Trudy Singh APN Tia Godinez MD LEANDER
[2018-08-05] MEDS: Fluticasone Nasal 50 mcg/Spray NS SCH (17:16)
[2018-08-05] MEDS: Levalbuterol 0.63 MG/3 ML Inhal Soln UD IH SCH (19:28)
[2018-08-05] MEDS: Ipratropium 0.02% Inhal Soln (0.5 mg/2.5 ml) UD IH SCH (19:28)
--- NOTE | 2018-08-05 21:02 | PN ---
DATE: 08/05/2018 The patient was seen and examined. I do agree with the note of the medical pathology teacher. I was involved in the plan of care. The patient has an acute COPD exacerbation. The patient has been on steroids and nebulizer treatments. He says that the nebulizer treatments cause worsening of his cough. He will be started on roflumilast. The patient has been taking Amaryl and metformin for diabetes. The patient is on Aldactone and lisinopril for the CHF. The patient has a history of DVT and is on anticoagulation with Coumadin and will get Dr. Godienz and Dr. Rajan to follow the patient as well. The patient is receiving Ativan for anxiety. His INR is therapeutic. His usual dose of Coumadin is about 8 to 10 mg, so I will place him on 8 mg. He is on trazodone at night to help sleep. He is on metformin for his diabetes. He is on Lasix for his CHF secondary to his systolic dysfunction. He is on Neurontin for neuropathy. Axel Villagomez MD
[2018-08-05] MEDS ORDERED: Fluticasone Nasal 50 mcg/Spray NS ONE (21:47)
--- NOTE | 2018-08-06 04:35 | CON ---
DATE: 08/05/2018 CARDIOLOGY CONSULTATION REASON FOR CONSULTATION AND FOLLOWUP: Cardiac evaluation and increased shortness of breath, history of paroxysmal atrial fibrillation status post radiofrequency ablation, status post AICD, and nonischemic cardiomyopathy. BRIEF CLINICAL HISTORY: This is a 58-year-old morbidly obese male, history of a gastric bypass surgery, history of advanced COPD, history of congestive heart failure, nonischemic cardiomyopathy, morbid obesity, history of nonobstructive cardiomyopathy, no history of CAD, or obstructive disease, history of insulin-dependent diabetes, history of atrial fibrillation history of status post radiofrequency ablation, but reverted back to AFib, history of AICD, history of peripheral arterial disease, history of acute limb ischemia, history of DVT, PE, came in with shortness of breath, acute bronchitis-type of symptom and upper respiratory tract infection, who was recently discharged after initially being treated with a bronchitis and COPD. PAST MEDICAL HISTORY: Significant for a history of nonobstructive coronary artery disease, history of multiple catheterization x3, no significant CAD, history of nonischemic cardiomyopathy status post defibrillator, history of defibrillator placed, history of paroxysmal atrial fibrillation, status post radiofrequency ablation with Dr. Hwang and ultimately placement of an AICD, history of peripheral arterial disease, status post left SFA and popliteal trunk, PTCA, history of DVT, history of catheter-based treatment for the DVT. PAST SURGICAL HISTORY: Significant for status post AICD, history of gastric bypass in the past, history of AICD, history of a catheter-based treatment for the DVT, history of acute limb ischemia, and history of TARE WEIGHER of the lower extremity. History of total hip replacement, history of gastric bypass. PREVIOUS CARDIAC WORKUP: As mentioned; history of multiple catheterization at least three times cardiac catheterization, nonobstructive coronary artery disease, nonischemic cardiomyopathy history with an ejection fraction of 35%, status post AICD. SOCIAL HISTORY: Denies smoking. Denies any history of alcohol abuse. CURRENT MEDICATIONS: The patient is taking at home trazodone, Risperdal, Cardizem, Coumadin, spironolactone, Singulair, lisinopril, insulin, and cilostazol. REVIEW OF SYSTEMS: As per HPI. PHYSICAL EXAMINATION: As follows; VITAL SIGNS: Temperature afebrile, heart rate 75, and blood pressure 122/79. HEENT: PERRLA. Extraocular muscles are intact. NECK: Supple. No thyromegaly. CHEST: Clear to auscultation. HEART: S1, S2 regular. ABDOMEN: Soft. EXTREMITIES: Clubbing and cyanosis negative. LABORATORY DATA: Blood workup: WBC 17.2, hemoglobin 12.9, hematocrit 40.0, and platelet count 200. Chemistry shows sodium 130, potassium 5, chloride 94, carbon dioxide of 26, anion gap of 20, BUN 66, creatinine of 1.4. EKG shows V-paced rhythm, underlying AFib. Chest x-ray on admission, under penetrated films shows mild congestive changes. CAT scan of the abdomen on admission reported no evidence of pneumonia. IMPRESSION: This is a 58-year-old male with a past medical history of morbid obesity, hypertension, hyperlipidemia, diabetes, history of gastric bypass, history of hip replacement, history of atrial fibrillation, status post radiofrequency ablation reverted, status post automatic implantable cardioverter defibrillator, and nonischemic cardiomyopathy status post cardiac catheterization x3, nonobstructive coronary artery disease, history of chronic obstructive pulmonary disease, admitted with upper respiratory tract infection, sinus-type of infection, no evidence of acute myocardial infarction. RECOMMENDATIONS: Continue broad-spectrum antibiotics, resume previous medication, continue anticoagulation, history of peripheral arterial disease, INR is 2.58. Continue previous baseline medications, aggressive treatment, continue broad-spectrum antibiotics, we will discontinue telemetry. We will follow with you. Thank you, Dr. Villagomez, for providing us the opportunity in taking care of the patient. Pete Johnson. We will follow with you. Tia Rajan MD
[2018-08-06 07:21] LABS: BASO # 0.01 K/mm3 (0.0-2.0); BASO % 0.1 % (0.0-3.0); LYMPH # 0.8 (1.2-3.4); LYMPH % 4.8 % (22.0-35.0); MEAN CELL VOLUME 83.8 fl (80.0-105.0); MEAN CORPUSCULAR HEMOGLOBIN 27.6 pg (25.0-35.0); MEAN CORPUSCULAR HGB CONC 32.9 g/dl (31.0-37.0); MEAN PLATELET VOLUME 10.6 fl (7.0-11.0); MONO # 0.4 (0.1-0.6); MONO % 2.2 % (1.0-6.0); RBC 5.44 10^6/uL (3.5-6.1); RED CELL DISTRIBUTION WIDTH 18.2 % (11.5-14.5)
[2018-08-06 07:46] LABS: ALB/GLOB RATIO 1.4 (1.1-1.8); ALBUMIN 4.5 g/dL (3.0-4.8); ALT/SGPT 27 U/L (7-56); AST/SGOT 25 U/L (17-59); BLOOD UREA NITROGEN 73 mg/dL (7-21); CALCIUM 9.7 mg/dL (8.4-10.5); GFR NON-AFRICAN AMERICAN 52
[2018-08-06] MEDS: Ipratropium 0.02% Inhal Soln (0.5 mg/2.5 ml) UD IH SCH ×3 (08:04→20:25)
[2018-08-06] MEDS: Levalbuterol 0.63 MG/3 ML Inhal Soln UD IH SCH ×3 (08:04→20:25)
[2018-08-06] MEDS: Insulin Detemir 100 units/ml Vial (Levemir) SC SCH ×2 (09:27→22:00)
[2018-08-06] MEDS: MethylPREDNISolone 40 mg Vial IVP SCH ×2 (09:28→21:51)
[2018-08-06] MEDS: Insulin Reg-HIGH-Coverage SC SCH ×3 (09:28→17:18)
[2018-08-06] MEDS: cefTRIAXone 1 gm 1 GM/100 ML BAG IVPB SCH (09:36)
[2018-08-06] MEDS: Fluticasone Nasal 50 mcg/Spray NS SCH ×2 (10:45→17:34)
--- NOTE | 2018-08-06 13:31 | PN ---
DATE: 08/06/2018 PULMONARY PROGRESS NOTE REFERRING PHYSICIAN: Axel Villagomez MD SUBJECTIVE: The patient was seen sitting in armchair in room. No acute distress. No overnight events reported. Reports tolerating nebulizer treatments well. Reports slight improvement in cough and shortness of breath. No headache, rhinitis, chest pain, abdominal pain, nausea, vomiting, diarrhea, leg pain or leg swelling reported. PHYSICAL EXAMINATION: GENERAL: No acute distress. VITAL SIGNS: Blood pressure 111/77, pulse 70, temperature 97.7, oxygen saturation 100 on room air. HEENT: Moist mucous membranes. Crowded airway. Mallampati score of 4. NECK: Supple. No JVD. Short and thick. LUNGS: Few scattered rhonchi bilaterally. CARDIOVASCULAR: S1 and S2. ABDOMEN: Soft, nontender. No distention. No organomegaly. EXTREMITIES: No bilateral lower extremity edema. NEUROLOGIC: Awake, alert, verbal, following commands. LABORATORY DATA: Reviewed. WBC 17, RBC 5.44, hemoglobin 15, hematocrit 45.6, and platelets of 208. Sodium 134, potassium 5, chloride 91, carbon dioxide 27, anion gap 21, BUN 23, creatinine 1.4, GFR 52, random glucose 221, calcium 9.7, total bilirubin 0.5, AST 25, ALT 27, alkaline phosphatase 60, total protein 7.6, albumin 4.5, globulin 3.2, albumin-globulin ratio 1.4. MEDICATIONS: Reviewed. Tylenol 650 every 6 hours p.r.n., albuterol sulfate 2.5 mg inhalation every 6 hours p.r.n., DuoNeb 3 mL inhalation every 2 hours p.r.n., Zithromax 500 mg daily, Debrox ear drops twice a day, Rocephin 1 g daily, Cardizem 30 mg twice a day, Flonase nasal spray twice a day, folic acid 1 mg daily, Lasix 40 mg every 12 hours, Neurontin 300 mg twice a day, glimepiride 4 mg daily, Levemir 25 units subcu a.c., Levemir 25 units subcu h.s., Humulin R sliding scale a.c. and h.s., Atrovent 0.5 mg inhalation three times a day, Xopenex 0.63 mg inhalation three times a day, lisinopril 2.5. mg daily, Ativan 1 mg twice a day p.r.n., Glucophage 1000 mg twice a day, Solu-Medrol 20 mg IV push every 12 hours, Singulair 10 mg h.s., Percocet 10/325 mg one tab every 12 hours p.r.n., Daliresp 250 mcg daily, Requip 0.5 mg h.s., Aldactone 25 mg twice a day, trazodone 150 mg h.s., Coumadin 8 mg daily. IMPRESSION AND PLAN: Chronic obstructive pulmonary disease, on home oxygen; congestive heart failure; anemia; cardiomyopathy; coronary artery disease status post coronary artery bypass graft; history of sleep apnea syndrome which has since resolved since losing weight; diabetes mellitus; atrial fibrillation. Continue anticoagulation therapy. Continue inhaled bronchodilators, continue gastric prophylaxis, continue current steroid dosing. Continue antibiotic therapy. We will decrease the patient's Lasix to 40 mg daily. Repeat labs in the morning. Head of bed elevated 45 degrees. Fall precautions. Recommend physical therapy for this patient. The patient was seen and examined with Dr. Godinez. Discussed assessment and plan as described above. The patient was seen and examined with Francisco Yates, nurse practitioner. Discussed assessment and plan as described above. Thank you for this consult. We will follow with you. Trudy Singh APN Tia Godinez MD
--- NOTE | 2018-08-06 14:14 | PN ---
DATE: 08/06/2018 REASON FOR CONSULTATION AND FOLLOWUP: Cardiac evaluation, admitted with increasing shortness of breath, history of paroxysmal atrial fibrillation, status post radiofrequency ablation, status post AICD, nonischemic cardiomyopathy, admitted with acute bronchitis type of symptom and upper respiratory tract infection. SUBJECTIVE: The patient denies any chest pain, shortness of breath any palpitation. OBJECTIVE: GENERAL: Not in apparent distress. VITAL SIGNS: Temperature afebrile, heart rate 74 and blood pressure 107/71. HEENT: PERRLA. Extraocular muscles intact. NECK: Supple. No carotid bruits. No JVD or thyromegaly. CHEST: Clear to auscultation. HEART: S1 and S2, regular. ABDOMEN: Soft. EXTREMITIES: Clubbing and cyanosis, negative. LABORATORY DATA: WBC 17, hemoglobin 15, hematocrit 45.6 and platelet count 208. Chemistry shows sodium 134, potassium 5, chloride 91, carbon dioxide 27, anion gap of 21, BUN 17 and creatinine 1.4. IMPRESSION: A 58-year-old morbidly obese male with past medical history significant for atrial fibrillation, status post CORA cardioversion, status post radiofrequency ablation failed reverted back to atrial fibrillation, status post automatic implantable cardioverter defibrillator, non-ischemic cardiomyopathy, status post cardiac catheterization x3 and nonobstructive coronary artery disease. The patient had EP study done at Dr. Hwang. Admitted here with acute bronchitis type of symptom, history of deep venous thrombosis of lower extremity with acute arterial occlusion and percutaneous transluminal coronary angioplasty of lower extremity for acute arterial occlusion. At this time, the patient admitted with acute bronchitis type of symptoms. RECOMMENDATION: Continue anticoagulation. Goal is to keep INR between 2 to 2.5. Today INR is 2.58. Continue spironolactone. Continue diuretics. Continue Cardizem. Continue metformin. Continue Lasix. Discontinue telemetry. Continue broad-spectrum antibiotic once the patient is stable, possible discharge to TCU . We will also pat PT/INR tomorrow. We will continue Coumadin. Goal is to keep INR between 2 to 2.5. Continue gentle diuretics and continue broad-spectrum antibiotics. We will discontinue telemetry. We will repeat the blood workup in the morning with PT/INR. Since the patient has elevated KUB, we will hold spironolactone because of increasing gait and the patient is also getting steroid that will also increase potassium because of the methylprednisolone, so we will hold spironolactone for now. Continue Lasix. Thank you, Dr. Villagomez, for providing us the opportunity in taking care of the patient, Alex Freeman. Tia Rajan MD
[2018-08-06 16:57] VITALS: O2SAT 96
--- NOTE | 2018-08-06 23:21 | DS ---
HISTORY OF PRESENT ILLNESS: This is a 58-year-old male who was coming in to the hospital because of acute COPD exacerbation. The patient has been having cough, congestion with greenish-colored sputum. He says that he continues to have cough and shortness of breath. He is going to go to TCU if he is accepted. He is on steroids, nebulizer treatments. No headaches. No dizziness. No nausea. PHYSICAL EXAMINATION: VITAL SIGNS: Temperature is 97.7, pulse is 70, blood pressure 111/77 and respirations 20. GENERAL: The patient is lying in bed, flat, comfortable. HEENT: No oral lesion. Anicteric sclerae. Moist mucosa. NECK: No JVD, adenopathy, or thyromegaly. CARDIOVASCULAR: S1 and S2, regular. No murmurs, rubs, or gallops. LUNGS: Clear to auscultation bilaterally. No wheeze, rales, or rhonchi. ABDOMEN: Bowel sounds are positive, soft, nontender and nondistended. EXTREMITIES: No cyanosis, clubbing or edema. LABORATORY DATA: White count of 17 and hemoglobin 15. Creatinine is 1.4. ASSESSMENT: 1. Acute chronic obstructive pulmonary disease. 2. Obese with the body mass index of 39. 3. Congestive heart failure, secondary to systolic dysfunction. 4. Coronary artery disease with stent. 5. Diabetes type II. 6. Atrial fibrillation on Coumadin. 7. Deep venous thrombosis. 8. Anxiety. PLAN: The patient is currently on Aldactone for CHF. He is going to continue on Ativan for the anxiety. The patient is on glimepiride for diabetes. He is going to continue with warfarin for . The patient is on trazodone for the sleeping. The patient is on Lasix daily for the CHF secondary to systolic dysfunction. The patient is on Rocephin for antibiotics. The patient is going to continue with Zestril for the CHF as well. Axel Villagomez MD
[2018-08-07 07:01] LABS: INR 3.14; PROTHROMBIN TIME 35.5 SECONDS (9.4-12.5)
[2018-08-07 07:03] LABS: BASO # 0.02 K/mm3 (0.0-2.0); BASO % 0.1 % (0.0-3.0); HEMOGLOBIN 14.8 g/dL (14.0-18.0); LYMPH % 4.8 % (22.0-35.0); MEAN CELL VOLUME 82.2 fl (80.0-105.0); MEAN CORPUSCULAR HEMOGLOBIN 27.4 pg (25.0-35.0); MEAN CORPUSCULAR HGB CONC 33.3 g/dl (31.0-37.0); MONO # 0.8 (0.1-0.6); RBC 5.4 10^6/uL (3.5-6.1); WHITE BLOOD COUNT 20.1 10^3/uL (4.5-11.0)
--- NOTE | 2018-08-07 07:10 | CP.PCM.PN ---
Subjective - Date & Time of Evaluation Date of Evaluation: 08/07/18 Time of Evaluation: 06:40 - Subjective Subjective: Awake, sitting on chair, mild shortness of breath Reason for consultation and follow up: Cardiac evaluation of shortness of breath, admitted for exacerbation of chronic COPD, history of CHF, atrial fibrillation, AICD, non ischemic cardiomyopathy Seen and examined by me and Dr. Rajan Objective - Vital Signs/Intake and Output Vital Signs (last 24 hours): Temp Pulse Resp BP Pulse Ox 97.9 F 72 18 123/80 96 08/06/18 16:56 08/06/18 17:17 08/06/18 12:00 08/06/18 17:17 08/06/18 16:56 Intake and Output: 08/07/18 08/07/18 06:59 18:59 Intake Total 180 Output Total 4 Balance 176 - Medications Medications: Current Medications Acetaminophen (Tylenol 325mg Tab) 650 mg PO Q4H PRN PRN Reason: Pain, moderate (4-7) Albuterol Sulfate (Albuterol 0.5% Inhal Lynn (2.5 Mg/0.5 Ml) Ud) 2.5 mg IH [id number] PRN PRN Reason: Shortness of Breath Albuterol/Ipratropium (Duoneb 3 Mg/0.5 Mg (3 Ml) Ud) 3 ml IH Q2H PRN PRN Reason: Shortness of Breath Azithromycin (Zithromax) 500 mg PO DAILY [facility]; Protocol Last Admin: 08/06/18 12:45 Dose: 500 mg Carbamide Peroxide (Debrox Ear Drops) 0 ml AU BID [facility] Last Admin: 08/06/18 17:17 Dose: 5 drop Diltiazem HCl (Cardizem) 30 mg PO BID [facility] Last Admin: 08/06/18 17:17 Dose: 30 mg Fluticasone Propionate (Flonase) 1 actuation NS BID [facility] Last Admin: 08/06/18 17:34 Dose: Not Given Folic Acid (Folic Acid) 1 mg PO DAILY [facility] Last Admin: 08/06/18 09:29 Dose: 1 mg Furosemide (Lasix) 40 mg IVP DAILY [facility] Gabapentin (Neurontin) 300 mg PO BID [facility]; Protocol Last Admin: 08/06/18 17:17 Dose: 300 mg Glimepiride (Amaryl) 4 mg PO 0800 [facility] Last Admin: 08/06/18 08:00 Dose: Not Given Ceftriaxone Sodium (Rocephin 1 Gram Ivpb) 1 gm in 100 mls @ 100 mls/hr IVPB DAILY [facility]; Protocol Stop: 08/08/18 10:59 Last Admin: 08/06/18 09:36 Dose: 100 mls/hr Insulin Detemir (Levemir) 25 unit SC HS [facility] Last Admin: 08/06/18 22:00 Dose: 116 u Insulin Detemir (Levemir) 25 unit SC ACB [facility] Last Admin: 08/06/18 09:27 Dose: 25 units Insulin Human Regular (Humulin R High) 0 units SC ACHS [facility]; Protocol Last Admin: 08/06/18 17:18 Dose: 4 units Ipratropium Myrtle (Atrovent) 0.5 mg IH TIDRESP [facility] Last Admin: 08/06/18 20:25 Dose: 0.5 mg Levalbuterol HCl (Xopenex) 0.63 mg IH TIDRESP [facility] Last Admin: 08/06/18 20:25 Dose: 0.63 mg Lisinopril (Zestril) 2.5 mg PO DAILY [facility] Last Admin: 08/06/18 09:29 Dose: 2.5 mg Lorazepam (Ativan) 1 mg PO BID PRN; Protocol PRN Reason: Anxiety Last Admin: 08/06/18 22:00 Dose: 1 mg Metformin HCl (Glucophage) 1,000 mg PO BID [facility] Last Admin: 08/06/18 17:18 Dose: 1,000 mg Methylprednisolone (Solu-Medrol) 20 mg IVP Q12 [facility] Last Admin: 08/06/18 21:51 Dose: 20 mg Montelukast Sodium (Singulair) 10 mg PO HS [facility] Last Admin: 08/06/18 21:51 Dose: 10 mg Oxycodone/Acetaminophen (Percocet 10/325 Mg Tab) 1 tab PO Q12 PRN PRN Reason: Pain, moderate (4-7) Last Admin: 08/05/18 14:36 Dose: 1 tab Roflumilast (Daliresp) 250 mcg PO DAILY [facility] Last Admin: 08/06/18 09:29 Dose: 250 mcg Ropinirole HCl (Requip) 0.5 mg PO [facility] Last Admin: 08/06/18 21:51 Dose: 0.5 mg Spironolactone (Aldactone) 25 mg PO BID [facility] Last Admin: 08/06/18 09:30 Dose: 25 mg Trazodone HCl (Desyrel) 150 mg PO HS [facility] Last Admin: 08/06/18 21:51 Dose: 150 mg Warfarin Sodium (Coumadin) 8 mg PO 1800 [facility]; Protocol Last Admin: 08/06/18 17:18 Dose: 8 mg - Labs Labs: 08/06/18 07:00 08/06/18 07:00 PT 35.5 SECONDS (9.4-12.5) H 08/07/18 06:30 INR 3.14 08/07/18 06:30 APTT 44.9 Seconds (26.9-38.3) H 08/03/18 16:15 - Constitutional Appears: Non-toxic, No Acute Distress - Head Exam Head Exam: NORMAL INSPECTION, NORMOCEPHALIC - Eye Exam Eye Exam: Normal appearance Pupil Exam: NORMAL ACCOMODATION - ENT Exam ENT Exam: Mucous Membranes Moist, Normal Exam - Neck Exam Neck Exam: Full ROM, Normal Inspection - Respiratory Exam Respiratory Exam: Decreased Breath Sounds Additional comments: mild shortness on breath on exertion - Cardiovascular Exam Cardiovascular Exam: +S1, +S2 Additional comments: AICD - GI/Abdominal Exam GI & Abdominal Exam: Soft, Normal Bowel Sounds - Extremities Exam Extremities Exam: Full ROM Additional comments: 1+edema - Neurological Exam Neurological Exam: Alert, Awake, Oriented x3 - Psychiatric Exam Psychiatric exam: Normal Affect, Normal Mood - Skin Skin Exam: Dry, Normal Color, Warm Assessment and Plan - Assessment and Plan (Free Text) Assessment: A 58 year old male who came in to the ER due to progressive shortness of breath. He [place] [facility] [place] Admitted for exacerbation of chronic COPD. History of chronic systolic congestive heart failure, COPD on home oxygen, obesity, obstructive sleep apnea, diabetes,depression, anxiety, GERD, history of fall, atrial fibrillation on Coumadin, history of DVT, Gastric bypass, PVD, post angioplasty and drug eluding stent placement in the left tibioperoneal trunk, recent left hip replacement at [facility] [place]. Cardiac cath done on 10/2014 showed normal coronaries. Echo done on 05/06/18 showed LVEF 36%, severely impaired systolic fu nction,RV is dilated and severely hypokinetic. Upper respiratory infection/bronchitis. On IV antibiotics and steroids. Possible transfer to TCU today. Feels better. Mild shortness of breath on exertion. Plan: Feels better, mild shortness of breath on exertion Heart rate controlled Blood pressure controlled On Cardizem 30 mg BID,Lasix 40 mg IV daily Zestril 2.5 mg daily,Solumedrol 20 mg IV BID, Coumadin 8 mg daily INR today 3.14 Hold Coumadin today Maintain INR 2 to 2.5 Continue current management Continue antibiotics Possible transfer to TCU Will follow up Plan and treatment discussed with Dr. Rajan
[2018-08-07] MEDS: Levalbuterol 0.63 MG/3 ML Inhal Soln UD IH SCH ×2 (07:31→13:37)
[2018-08-07] MEDS: Ipratropium 0.02% Inhal Soln (0.5 mg/2.5 ml) UD IH SCH ×2 (07:31→13:37)
[2018-08-07 07:42] LABS: BLOOD UREA NITROGEN 78 mg/dL (7-21); CALCIUM 9.7 mg/dL (8.4-10.5); GFR NON-AFRICAN AMERICAN 56
[2018-08-07] MEDS: Insulin Reg-HIGH-Coverage SC SCH ×2 (08:11→11:28)
[2018-08-07] MEDS: Insulin Detemir 100 units/ml Vial (Levemir) SC SCH (08:26)
[2018-08-07 08:47] VITALS: RESP 20; TEMP 97.8
[2018-08-07] MEDS: MethylPREDNISolone 40 mg Vial IVP SCH (11:14)
[2018-08-07] MEDS: Fluticasone Nasal 50 mcg/Spray NS SCH (11:17)
[2018-08-07 11:25] VITALS: BP 120/60; PULSE 92
--- NOTE | 2018-08-07 11:25 | PN ---
DATE: 08/07/2018 SUBJECTIVE: The patient has no complaints of any chest pain. The patient continues to have a cough with congestion. No headaches. PHYSICAL EXAMINATION: VITAL SIGNS: Temperature is 97.9, pulse is 72, blood pressure 123/80 and respiration is 18. GENERAL: The patient is lying in bed, flat, comfortable. HEENT: No oral lesion. Anicteric sclerae. Moist mucosa. NECK: No JVD, adenopathy, or thyromegaly. CARDIOVASCULAR: S1 and S2, regular. No murmurs, rubs, or gallops. LUNGS: Clear to auscultation bilaterally. No wheeze, rales, or rhonchi. ABDOMEN: Bowel sounds are positive, soft, nontender and nondistended. EXTREMITIES: No cyanosis, clubbing or edema. LABORATORY DATA: White count 20.1, hemoglobin is 14.8. Creatinine is 1.3. Sodium is 130. ASSESSMENT: 1. Acute chronic obstructive pulmonary disease. 2. Congestive heart failure, secondary to systolic dysfunction. 3. Hyponatremia. 4. Obese with body mass index of 39. 5. Coronary artery disease with stent. 6. Diabetes type II. 7. Atrial fibrillation on Coumadin. 8. Deep venous thrombosis on Coumadin. 9. Anxiety. PLAN: The patient is currently on Aldactone for CHF. He is going to continue with glimepiride for his diabetes type II. The patient is on Coumadin for anticoagulation. He has an INR that is elevated 3.1. I will decrease his dosage of Coumadin. The patient is on roflumilast for COPD. The patient is receiving trazodone for sleeping. The patient is on Lasix, this will be continued as the patient is becoming hyponatremic. The patient is waiting for TCU, he is on steroids. He is on antibiotics. Axel Villagomez MD
[2018-08-07] MEDS: cefTRIAXone 1 gm 1 GM/100 ML BAG IVPB SCH (11:29)
--- NOTE | 2018-08-07 15:20 | PN ---
DATE: 08/07/2018 PULMONARY PROGRESS NOTE REFERRING PHYSICIAN: Axel Villagomez MD SUBJECTIVE: The patient is seen sitting in armchair in room. No acute distress. No overnight events reported. States he still has some coughing, productive and some shortness of breath with exertion, but it has improved slightly. No headache, rhinitis, chest pain, abdominal pain, nausea, vomiting, diarrhea, leg pain or leg swelling reported. PHYSICAL EXAMINATION: GENERAL: No acute distress. VITAL SIGNS: Blood pressure 118/59, pulse 94, temperature 97.8, oxygen saturation 96 on room air. HEENT: Moist mucous membranes. Mallampati score of 4. Crowded airway. NECK: Supple. No JVD. LUNGS: Few scattered rhonchi bilaterally. CARDIOVASCULAR: S1, S2. ABDOMEN: Soft, nontender. No distention. No organomegaly. EXTREMITIES: No bilateral lower extremity edema. NEUROLOGIC: Awake, alert, verbal, following commands. MEDICATIONS: Reviewed. Tylenol 650 every 4 hours p.r.n. moderate pain, albuterol 2.5 mg inhalation every 6 hours p.r.n., DuoNeb 3 mL inhalation every 2 hours p.r.n., Zithromax 500 mg daily, Debrox twice a day, Rocephin 1 g daily, Cardizem 30 mg twice a day, Flonase nasal spray twice a day, folic acid 1 mg daily, Neurontin 300 mg twice a day, glimepiride 4 mg daily, Levemir 25 units subcu a.c., Levemir 25 units subcu h.s., Humulin R sliding scale a.c. and h.s., Atrovent 0.5 mg inhalation three times a day, Xopenex 0.63 mg inhalation three times a day, lisinopril 2.5. mg daily, Ativan 1 mg twice a day p.r.n., metformin 1000 mg twice a day, Solu-Medrol 20 mg every 12 hours, Singulair 10 mg h.s., Percocet 10/325 mg one tab every 12 hours p.r.n., Daliresp 250 mcg daily, ReQuip 0.5 mg h.s., spironolactone 25 mg twice a day, trazodone 150 mg h.s., Coumadin 5 mg daily. LABORATORY DATA: Reviewed. WBC 20.1, RBC 5.4, hemoglobin 14.8, hematocrit 44.4, platelets 221. PT 35.5, INR 3.14. Sodium 130, potassium 4.9, chloride 92, carbon dioxide 25, anion gap 18, BUN 78, creatinine 1.3, GFR 56, POC glucose 149, random glucose 147, calcium 9.7, phosphorus 4.8,magnesium 2. IMPRESSION AND PLAN: Chronic obstructive pulmonary disease, on home oxygen; congestive heart failure; anemia; cardiomyopathy; coronary artery disease status post coronary artery bypass graft; history of sleep apnea syndrome which resolved since losing weight; diabetes mellitus; atrial fibrillation. The patient is on anticoagulation therapy. Continue inhaled bronchodilators, gastric prophylaxis. Continue antibiotic therapy, current steroid dosing. Lasix was discontinued this morning by attending. Head of bed elevated 45 degrees. Fall precautions. Recommend physical therapy for this patient. The patient to be evaluated for TRCU. The patient was seen and examined by Dr. Godinez. Discussed assessment and plan as described above. The patient was seen and examined by Trudy Singh, nurse practitioner. Discussed assessment and plan as described above. Thank you for this consult. We will follow with you. Trudy Singh APN Tia Godinez MD
== END 2018-08-07 16:11 | DRG 191 ==
LOC: ED 15:20 → ERH 19:36 → 2RNO 23:20 → OBSVTOIN 08-05 08:13 → 3RSO 08-06 15:37
PROVIDERS: ADMIT Internal Medicine Nephrology; ATTEND Internal Medicine Nephrology
DX: J43.9 Emphysema, unspecified (principal); I50.22 Chronic systolic (congestive) heart failure; I42.9 Cardiomyopathy, unspecified; E87.1 Hypo-osmolality and hyponatremia; I11.0 Hypertensive heart disease with heart failure; I48.0 Paroxysmal atrial fibrillation; I25.10 Atherosclerotic heart disease of native coronary artery without angina pectoris; J06.9 Acute upper respiratory infection, unspecified; G47.33 Obstructive sleep apnea (adult) (pediatric); E11.40 Type 2 diabetes mellitus with diabetic neuropathy, unspecified; E11.51 Type 2 diabetes mellitus with diabetic peripheral angiopathy without gangrene; F31.9 Bipolar disorder, unspecified; E66.01 Morbid (severe) obesity due to excess calories; Z68.39 Body mass index [BMI] 39.0-39.9, adult; I48.2 Chronic atrial fibrillation; Z86.718 Personal history of other venous thrombosis and embolism; Z99.81 Dependence on supplemental oxygen; Z95.810 Presence of automatic (implantable) cardiac defibrillator; Z87.891 Personal history of nicotine dependence; F41.9 Anxiety disorder, unspecified; Z98.84 Bariatric surgery status; E78.5 Hyperlipidemia, unspecified; H54.7 Unspecified visual loss; H91.90 Unspecified hearing loss, unspecified ear; K21.9 Gastro-esophageal reflux disease without esophagitis; Z79.01 Long term (current) use of anticoagulants; Z79.4 Long term (current) use of insulin; Z79.899 Other long term (current) drug therapy; Z95.0 Presence of cardiac pacemaker; Z95.1 Presence of aortocoronary bypass graft; Z95.5 Presence of coronary angioplasty implant and graft; Z96.642 Presence of left artificial hip joint

== ENCOUNTER 2018-08-07 16:11 | Inpatient (IN) | payer MEDICARE ==
[2018-08-07 16:40] VITALS: BMI 39.8
[2018-08-07] MEDS ORDERED: Albuterol-Ipratrop 3 mg / 0.5 (3 ml) UD IH PRN (17:07)
[2018-08-07] MEDS ORDERED: Albuterol 0.5% Inhal Sol (2.5 mg/0.5 ml) UD IH PRN (17:07)
[2018-08-07] MEDS: Insulin Reg-HIGH-Coverage SC SCH (21:15)
[2018-08-07] MEDS: Insulin Detemir 100 units/ml Vial (Levemir) SC SCH (21:16)
[2018-08-07] MEDS: MethylPREDNISolone 40 mg Vial IVP SCH (21:17)
[2018-08-07] MEDS ORDERED: Pneumococcal 23-Valent Vaccine IM ONE (23:01)
[2018-08-08] MEDS: cefTRIAXone 1 gm 1 GM/100 ML BAG IVPB SCH (05:51)
[2018-08-08] MEDS ORDERED: cefTRIAXone 1 gm 1 GM/100 ML BAG IVPB SCH (06:00)
[2018-08-08] MEDS: Insulin Reg-HIGH-Coverage SC SCH ×4 (06:44→22:08)
[2018-08-08] MEDS: Insulin Detemir 100 units/ml Vial (Levemir) SC SCH ×2 (06:45→22:08)
[2018-08-08] MEDS: Levalbuterol 0.63 MG/3 ML Inhal Soln UD IH SCH ×3 (08:39→21:41)
[2018-08-08] MEDS: Ipratropium 0.02% Inhal Soln (0.5 mg/2.5 ml) UD IH SCH ×3 (08:39→21:40)
[2018-08-08] MEDS: Fluticasone Nasal 50 mcg/Spray NS SCH ×2 (10:16→17:31)
[2018-08-08] MEDS: MethylPREDNISolone 40 mg Vial IVP SCH (10:17)
--- NOTE | 2018-08-08 10:33 | CP.PCM.HP ---
<Deonte Bland - Last Filed: 08/08/18 10:23> History of Present Illness - History of Present Illness History of Present Illness: Deonte Bland D.O. PGY-3, Internal Medicine Resident, Dr. Villagomez[facility] Service, H&P CC: deconditioning 58-year-old male with a past medical history COPD on home oxygen at 2 L, heart failure with reduced ejection fraction of approximately 36% status post AICD, WESLY, CAD status post PCI, diabetes type 2, atrial fibrillation and previous DVT on Coumadin therapy who originally presented with SOB, now being transferred to the transitional care unit for continued physical therapy. Patient states that his breathing symptoms have improved. At this time states that he has some congestion. Has been using his Flonase. Otherwise states that he is participating in the physical therapy. Denies any nausea, vomiting, diarrhea, constipation, lightheadedness, dysuria, fever, chills, chest pain or other worrisome complaints. PMH: As above PSH: Gastric bypass, left leg thrombectomy SH: Quit smoking 25 years ago, years of heavy tobacco abuse, social EtOH, cocaine use in distant past FH: Noncontributory Medications: Reviewed Allergies: Continued pain and fumarate and wild berries Present on Admission - Present on Admission Any Indicators Present on Admission: Yes History of DVT/PE: Yes History of Uncontrolled Diabetes: Yes Review of Systems - Review of Systems All systems: reviewed and no additional remarkable complaints except (as per HPI) Past Patient History - Infectious Disease Hx of Infectious Diseases: None - Tetanus Immunizations Tetanus Immunization: Unknown - Past Medical History & Family History Past Medical History?: Yes - Past Social History Smoking Status: Former Smoker - CARDIAC Hx Cardiac Disorders: Yes (Internal defibrillator, pacemaker, coronary stent,) Hx Congestive Heart Failure: Yes Hx Hypercholesterolemia: Yes Hx Hypertension: Yes - PULMONARY Hx Chronic Obstructive Pulmonary Disease (COPD): Yes - NEUROLOGICAL Hx Neurological Disorder: No - HEENT Hx HEENT Problems: No - RENAL Hx Chronic Kidney Disease: No - ENDOCRINE/METABOLIC Hx Diabetes Mellitus Type 2: Yes - HEMATOLOGICAL/ONCOLOGICAL Hx Blood Disorders: No - INTEGUMENTARY Hx Dermatological Problems: No - MUSCULOSKELETAL/RHEUMATOLOGICAL Hx Falls: Yes (recent fall) - GASTROINTESTINAL Hx Gastrointestinal Disorders: Yes (reflux) - GENITOURINARY/GYNECOLOGICAL Hx Reproductive Disorders: No - PSYCHIATRIC Hx Psychophysiologic Disorder: Yes Hx Anxiety: Yes Hx Bipolar Disorder: Yes Hx Depression: Yes Hx Substance Use: Yes (quit 30 years ago) - SURGICAL HISTORY Hx Cardiac Catheterization: Yes Hx Coronary Stent: Yes - ANESTHESIA Hx Anesthesia: Yes Hx Anesthesia Reactions: No Hx Malignant Hyperthermia: No Meds Allergies/Adverse Reactions: Allergies Allergy/AdvReac Type Severity Reaction Status Date / Time quetiapine fumarate AdvReac ANAPHYLAXIS Verified 08/07/18 16:40 [From Seroquel] wild berries Allergy Intermediate RASH Uncoded 08/07/18 16:40 Physical Exam - Constitutional Appears: Non-toxic, Chronically Ill - Head Exam Head Exam: ATRAUMATIC, NORMOCEPHALIC - Eye Exam Eye Exam: EOMI. absent: Scleral icterus - ENT Exam ENT Exam: Mucous Membranes Moist - Respiratory Exam Respiratory Exam: Wheezes (midl bibasilar). absent: Rales, Rhonchi - Cardiovascular Exam Cardiovascular Exam: +S1, +S2. absent: Gallop, Rubs - GI/Abdominal Exam GI & Abdominal Exam: Normal Bowel Sounds, Soft. absent: Distended, Tenderness - Extremities Exam Extremities exam: Negative for: calf tenderness, pedal edema Additional comments: abrasion of left knee, healing - Neurological Exam Neurological exam: Alert, Oriented x3 - Psychiatric Exam Psychiatric exam: Normal Affect, Normal Mood - Skin Skin Exam: Dry, Warm Results - Vital Signs Recent Vital Signs: Last Vital Signs Temp 98.3 F 08/07/18 22:49 Pulse 70 08/08/18 10:14 Resp 19 08/07/18 22:49 BP 149/84 08/08/18 10:14 Pulse Ox Assessment & Plan - Assessment and Plan (Free Text) Assessment: 58-year-old male with a past medical history COPD on home oxygen at 2 L, heart failure with reduced ejection fraction of approximately 36% status post AICD, WESLY, CAD status post PCI, diabetes type 2, atrial fibrillation and previous DVT on Coumadin therapy who originally presented with SOB, now being transferred to the transitional care unit for continued physical therapy. Plan: 1. Deconditioning 2. Chronic obstructive pulmonary disease 3. Heart failure with reduced ejection fraction 4. CAD status post PCI 5. Diabetes type 2 6. Atrial fibrillation on Coumadin 7. DVT 8. Anxiety 9. Neuropathic pain Patient will be undergoing physical therapy in the transitional care unit. For his COPD we will continue with his course of azithromycin and ceftriaxone as well as scheduled and as needed breathing treatments, Roflumilast, montelukast, and we will switch his Solu-Medrol to prednisone 40 twice daily. Pulmonology following. For his heart failure with reduced ejection fraction he is currently well controlled and we will continue with lisinopril. Cardio following. For his atrial fibrillation we will continue with diltiazem for rate control. Given antonette t he feels congested we will start Mucomyst. For his diabetes we will continue with metformin, glimepiride, and Levemir 25 twice daily along with regular insulin sliding scale. For his anxiety we will continue with trazodone. For his pain will continue with his home dose of Percocet. Also have lorazepam as needed for his anxiety. For his neuropathic pain we will continue with gabapentin. Warfarin for his atrial fibrillation history of DVT is currently on hold. We will recheck the INR tomorrow in the morning and possibly restarted. We will continue to monitor the patient closely. Patient was seen and examined and case discussed with attending physician. - Date & Time Date: 08/08/18 Time: 07:00 <Axel Villagomez S - Last Filed: 08/08/18 15:57> Results - Vital Signs Recent Vital Signs: Last Vital Signs Temp 98.3 F 08/07/18 22:49 Pulse 70 08/08/18 10:19 Resp 19 08/07/18 22:49 BP 149/84 08/08/18 10:19 Pulse Ox Assessment & Plan - Assessment and Plan (Free Text) Plan: Patient was seen and examined by me. I have reviewed the note of the medical imaging technologist and have gone over the plan of care. I agree with the note. I have reviewed the medications and the last labs.
[2018-08-08] MEDS: Acetylcysteine 20% Inhal Soln (4ml) IH SCH ×2 (13:16→21:28)
--- NOTE | 2018-08-08 13:16 | CON ---
DATE: 08/08/2018 PULMONARY CONSULT NOTE REFERRING PHYSICIAN: Dr. Villagomez. REASON FOR CONSULT: Shortness of breath, cough, and chronic lung disease. HISTORY OF PRESENT ILLNESS: This is a 58-year-old male with past medical history significant for end-stage COPD, on home oxygen; congestive heart failure, status post AICD placement, pacemaker; sleep apnea syndrome which has resolved since losing weight; coronary artery disease; diabetes mellitus; atrial fibrillation; history of DVT; cardiomyopathy and morbid obesity. The patient presented to the emergency room for complaints of shortness of breath and chest pain and is presently transferred to Transitional Care Unit for physical therapy. Today, the patient reports that symptoms have improved. He still has some shortness of breath with exertion and productive cough. PAST MEDICAL HISTORY: As per history of present illness. ALLERGIES: QUETIAPINE, FUMARATE, AND WILD BERRIES. FAMILY HISTORY: No significant cardiopulmonary disease reported. SOCIAL HISTORY: Former smoker. No EtOH abuse. Former illicit drug use. MEDICATIONS: Reviewed. Tylenol 650 mg every 4 hours p.r.n. mild pain, Mucomyst 4 mL inhalation every 6 hours, albuterol 2.5 mg inhalation every 6 hours p.r.n., DuoNeb 3 mL inhalation every 2 hours p.r.n., Zithromax 500 mg daily, Debrox eardrops twice a day, Rocephin 1 g daily, Cardizem 30 mg twice a day, Flonase nasal spray twice a day, folic acid 1 mg daily, gabapentin 300 mg twice a day, glimepiride 4 mg daily, Levemir 25 units subcutaneous at bedtime, Levemir 25 units subcutaneous a.c., Humulin R sliding scale a.c. and at bedtime, Atrovent 0.5 mg inhalation three times a day, Xopenex 0.63 mg inhalation three times a day, lisinopril 2.5 mg daily, Ativan 1 mg twice a day p.r.n., metformin 1000 mg twice a day, Singulair 10 mg at bedtime, Percocet 10/325 mg every 12 hours p.r.n., prednisone 40 mg twice a day, Daliresp 250 mcg daily, Requip 0.5 mg at bedtime, trazodone 150 mg at bedtime, and Coumadin 5 mg daily. REVIEW OF SYSTEMS: No headache, rhinitis, chest pain, abdominal pain, nausea, vomiting, diarrhea, leg pain, or leg swelling reported. The patient does report improvement in shortness of breath and cough, but states that he still gets some shortness of breath with exertion, has productive cough. PHYSICAL EXAMINATION: GENERAL: No acute distress. VITAL SIGNS: Blood pressure 149/84, pulse 70, and temperature 98.3. HEENT: Moist mucous membranes. Crowded airway. Mallampati score of 4. NECK: Supple. No JVD. Short and thick. LUNGS: Fair airflow bilaterally. CARDIOVASCULAR: S1 and S2. ABDOMEN: Soft and nontender. No distention. No organomegaly. EXTREMITIES: No bilateral lower extremity edema. NEUROLOGIC: Awake, alert, verbal; following commands. LABORATORY DATA: Reviewed. No new labs. IMPRESSION AND PLAN: Chronic obstructive pulmonary disease, has home oxygen; congestive heart failure; anemia; cardiomyopathy; coronary artery disease, status post coronary artery bypass graft; history of sleep apnea; diabetes mellitus; atrial fibrillation; diabetic neuropathy; anxiety and depression. The patient is currently on anticoagulation therapy. Continue inhaled bronchodilators, gastric prophylaxis, currently on antibiotic therapy. We will agree with decreasing steroids, fall precautions, head of bed elevated at 45 degrees, continue physical therapy. We recommend the patient have pulmonary function tests as outpatient. The patient was seen and examined with Dr. Godinez. Discussed assessment and plan as described above. The patient was seen and examined by Francisco Yates, nurse practitioner. Discussed assessment and plan as described above. Thank you for this consult. We will follow with you. Trudy Singh APN Tia Godinez MD
--- NOTE | 2018-08-08 14:47 | CON ---
DATE: 08/08/2018 LOCATION: The patient is in room 315, bed 1. REASON FOR CONSULTATION AND FOLLOWUP: Cardiac evaluation, shortness of breath, history of paroxysmal atrial fibrillation, status post radiofrequency ablation, status post AICD, nonischemic cardiomyopathy and deconditioning. HISTORY OF PRESENT ILLNESS: The patient is a 58-year-old morbidly obese male who was admitted to medical floor with shortness of breath and was treated there and now he is admitted to transitional care unit for deconditioning and ongoing therapy for his shortness of breath. The patient known case of advanced COPD, history of congestive heart failure in the past, nonischemic cardiomyopathy, morbid obesity, insulin-dependent diabetes mellitus, atrial fibrillation, status post radiofrequency ablation, but reverted back to atrial fib , AICD insertion, peripheral arterial disease, history of acute limb ischemia, history of DVT, pulmonary embolism. Also, the patient had gastric bypass surgery in the past. The patient was admitted to medical floor with shortness of breath and upper respiratory tract infection and the patient was treated. Now, he is admitted to transitional care unit for deconditioning. PAST MEDICAL HISTORY: Significant for nonobstructive coronary artery disease, history of multiple catheterization x3. No significant of CAD. History of nonischemic cardiomyopathy, status post AICD insertion; history of paroxysmal atrial fibrillation, status post radiofrequency ablation with Dr. Bonilla and ultimately placement of an AICD, the patient went back to atrial fibrillation; peripheral arterial disease, status post left SFA and popliteal trunk, PTCA; history of DVT and history of catheter-based treatment for DVT. PAST SURGICAL HISTORY: Significant for status post AICD insertion, gastric bypass surgery, catheter-based treatment for DVT, acute limb ischemia and history of PTCA of the lower extremity, total hip replacement and history of gastric bypass. PREVIOUS CARDIAC WORKUP: As mentioned before, the patient had cardiac catheterization at least 3 times and showed nonobstructive coronary artery disease, non-ischemic cardiomyopathy, ejection fraction of 35%, status post AICD. SOCIAL HISTORY: Denies smoking. Denies history of alcohol abuse. MEDICATIONS: List of medications at home; the patient was on trazodone, Risperdal, Cardizem, Coumadin, spironolactone, Singulair, lisinopril, insulin, and cilostazol. REVIEW OF SYSTEMS: All the systems reviewed; positive mentioned in the history, others were negative. PHYSICAL EXAMINATION: GENERAL: The patient is sitting in chair comfortably at present. VITAL SIGNS: Blood pressure 103/68, respirations 18, and pulse 72. The patient is afebrile. HEENT: Head is normocephalic. Eyes, pupils normal. Conjunctivae are normal. Nose and throat are normal. NECK: JVP low. Carotids are equal. THORAX: AP diameter is normal. The patient has AICD. LUNGS: No rales. Lungs are clear. CARDIOVASCULAR: S1 and S2. ABDOMEN: Protuberant. No organomegaly. Bowel sounds normal. EXTREMITIES: There is no clubbing. No cyanosis. LABORATORY DATA: The patient's labs were done on the medical floor and they were reported in our notes from the medical floor. DIAGNOSES: Shortness of breath; exacerbation of chronic obstructive pulmonary disease; respiratory tract infection; nonischemic cardiomyopathy; atrial fibrillation, status post automatic implantable cardioverter-defibrillator insertion; diabetes mellitus; history of peripheral arterial disease in the past; morbid obesity; status post cardiac catheterization x3; history of post-radiofrequency ablation, the patient reverted back to atrial fibrillation; hypertension; hyperlipidemia; history of gastric bypass surgery and hip replacement. PLAN: Advised the patient to lose weight. Deconditioning, the patient will continue with physical therapy. The patient is on glimepiride 4 mg p.o. daily, Ativan 1 mg b.i.d. p.r.n., Cardizem 30 mg p.o. b.i.d., Daliresp 250 mcg p.o. daily, Desyrel 150 mg p.o. at bedtime, DuoNeb and nebulizer therapy, folic acid 1 mg daily, metformin 1000 mg b.i.d., insulin detemir 25 units subcutaneous a.c. and insulin detemir 25 units subcutaneous at bedtime, Neurontin 300 mg b.i.d., ceftriaxone 1 g IV daily, Singulair 10 mg at bedtime, methylprednisolone 20 mg IV every 12 hours, Xopenex and nebulizer therapy, lisinopril 2.5 mg daily, Azithromycin 500 mg p.o. daily. We will follow with you. Continue physical therapy. Tia Cabello MD
[2018-08-08] MEDS ORDERED: Alum-Mag Hydrox-Simethicone Susp (30 mL) PO PRN (18:15)
[2018-08-08] MEDS ORDERED: Pantoprazole 40 mg EC Tab PO SCH ×2 (19:00→22:00)
--- NOTE | 2018-08-08 20:01 | HP ---
DATE OF EXAM: 08/08/2018 HISTORY OF PRESENT ILLNESS: The patient was seen and examined. I do agree with a note of the medical records coder. I was involved in the plan of care. The patient was initially admitted to the hospital because of an acute COPD exacerbation. The COPD has improved. The patient was sent to the Transitional Care Unit for further rehab. I did review the medical records and the discharge summary. The patient is currently on nebulizer treatments, Mucomyst and antibiotics. He also has CHF and he is on diuretic therapy. Intermittently, the patient is on his anticoagulation for his atrial fibrillation. He is currently deconditioned. He gets shortness of breath when he exerts himself more than his baseline . He is currently on metformin, glimepiride and Levemir for his diabetes. He is on a insulin sliding scale. The patient is on trazodone for his anxiety. He is going to be on Percocet for his pain. He is on lorazepam for his anxiety as well. He gets trazodone for sleeping in the evening. He is on gabapentin for his neuropathy. The patient is on Coumadin for his atrial fibrillation. He is going to continue with steroids and I will change the Solu-Medrol to prednisone. He is going to have followup with Cardiology. Axel Villagomez MD
[2018-08-09] MEDS: Acetylcysteine 20% Inhal Soln (4ml) IH SCH ×4 (02:00→20:41)
[2018-08-09 06:34] LABS: INR 1.73; PARTIAL THROMBOPLASTIN TIME 28.3 Seconds (26.9-38.3); PROTHROMBIN TIME 19.5 SECONDS (9.4-12.5)
[2018-08-09] MEDS: Ipratropium 0.02% Inhal Soln (0.5 mg/2.5 ml) UD IH SCH ×3 (07:05→20:42)
[2018-08-09] MEDS: Levalbuterol 0.63 MG/3 ML Inhal Soln UD IH SCH ×2 (07:06→13:32)
[2018-08-09 07:14] LABS: BASO # 0.01 K/mm3 (0.0-2.0); LYMPH # 2.1 (1.2-3.4); LYMPH % 9.9 % (22.0-35.0); MEAN CELL VOLUME 83.3 fl (80.0-105.0); MEAN CORPUSCULAR HEMOGLOBIN 27.8 pg (25.0-35.0); MEAN CORPUSCULAR HGB CONC 33.3 g/dl (31.0-37.0); MEAN PLATELET VOLUME 10.3 fl (7.0-11.0); MONO # 0.1 (0.1-0.6); MONO % 0.6 % (1.0-6.0); RBC 5.4 10^6/uL (3.5-6.1); RED CELL DISTRIBUTION WIDTH 18.1 % (11.5-14.5); WHITE BLOOD COUNT 21.6 10^3/uL (4.5-11.0)
[2018-08-09] MEDS ORDERED: Nitroglycerin 2% Ointment Foilpak UD TOP ONE (07:16)
[2018-08-09 07:33] LABS: ALB/GLOB RATIO 1.5 (1.1-1.8); ALT/SGPT 38 U/L (7-56); AST/SGOT 22 U/L (17-59); BLOOD UREA NITROGEN 63 mg/dL (7-21); CALCIUM 9.8 mg/dL (8.4-10.5); GFR NON-AFRICAN AMERICAN > 60
[2018-08-09 07:38] LABS: TROPONIN I 0.05 ng/mL
[2018-08-09] MEDS: Insulin Detemir 100 units/ml Vial (Levemir) SC SCH ×2 (07:41→22:25)
[2018-08-09] MEDS: cefTRIAXone 1 gm 1 GM/100 ML BAG IVPB SCH (07:56)
[2018-08-09] MEDS: Insulin Reg-HIGH-Coverage SC SCH ×4 (07:59→22:24)
[2018-08-09] MEDS: Fluticasone Nasal 50 mcg/Spray NS SCH ×2 (10:00→17:28)
[2018-08-09] MEDS: Oxycodone/Acetaminophen 10/325 mg Tab PO PRN (10:21)
--- NOTE | 2018-08-09 12:08 | CP.PCM.PN ---
<Deonte Bland - Last Filed: 08/09/18 19:03> Subjective - Date & Time of Evaluation Date of Evaluation: 08/09/18 Time of Evaluation: 07:30 - Subjective Subjective: Deonte Bland D.O. PGY-3, Internal Medicine Resident, Dr. Villagomez's Service, Progress Note 58-year-old male with a past medical history COPD on home oxygen at 2 L, heart failure with reduced ejection fraction of approximately 36% status post AICD, WESLY, CAD status post PCI, diabetes type 2, atrial fibrillation and previous DVT on Coumadin therapy who originally presented with SOB, now being in the transitional care unit for continued physical therapy. Patient was seen and examined at bedside. Patient complaining of substernal chest pain at this time. States mild shortness of breath. Happened while he was just sitting. Objective - Vital Signs/Intake and Output Vital Signs (last 24 hours): Temp Pulse Resp BP Pulse Ox 97.5 F L 70 18 120/77 99 08/09/18 05:30 08/09/18 10:18 08/09/18 05:30 08/09/18 10:18 08/09/18 05:30 Intake and Output: 08/09/18 08/09/18 06:59 18:59 Intake Total 520 Balance 520 - Medications Medications: Current Medications Acetaminophen (Tylenol 325mg Tab) 650 mg PO Q4H PRN; Protocol PRN Reason: Pain, Mild (1-3) Acetylcysteine (Acetylcysteine 20%) 4 ml IH [id number] [facility] Last Admin: 08/09/18 07:05 Dose: Not Given Al Hydrox/Mg Hydrox/Simethicone (Maalox Plus 30 Ml) 10 ml PO Q6 PRN; Protocol PRN Reason: Indigestion / Heartburn Albuterol Sulfate (Albuterol 0.5% Inhal [place] (2.5 Mg/0.5 Ml) Ud) 2.5 mg IH [id number] PRN; Protocol PRN Reason: Shortness of Breath Albuterol/Ipratropium (Duoneb 3 Mg/0.5 Mg (3 Ml) Ud) 3 ml IH Q2H PRN; Protocol PRN Reason: Shortness of Breath Azithromycin (Zithromax) 500 mg PO DAILY [facility]; Protocol Last Admin: 08/09/18 10:19 Dose: 500 mg Benzonatate (Tessalon Perles) 200 mg PO TID [facility]; Protocol Last Admin: 08/09/18 10:17 Dose: 200 mg Carbamide Peroxide (Debrox Ear Drops) 0 ml AU BID [facility]; Protocol Last Admin: 08/08/18 17:31 Dose: Not Given Diltiazem HCl (Cardizem) 30 mg PO BID [facility]; Protocol Last Admin: 08/08/18 17:30 Dose: 30 mg Fluticasone Propionate (Flonase) 1 actuation NS BID [facility]; Protocol Last Admin: 08/08/18 17:31 Dose: 1 spr Folic Acid (Folic Acid) 1 mg PO DAILY [facility]; Protocol Last Admin: 08/08/18 10:17 Dose: 1 mg Gabapentin (Neurontin) 300 mg PO BID [facility]; Protocol Last Admin: 08/09/18 10:16 Dose: 300 mg Glimepiride (Amaryl) 4 mg PO 0800 [facility]; Protocol Last Admin: 08/09/18 07:53 Dose: 4 mg Ceftriaxone Sodium (Rocephin 1 Gram Ivpb) 1 gm in 100 mls @ 100 mls/hr IVPB 0600 [facility]; Protocol Last Admin: 08/09/18 07:56 Dose: 100 mls/hr Insulin Detemir (Levemir) 25 unit SC ACB [facility]; Protocol Last Admin: 08/09/18 07:41 Dose: 25 units Insulin Detemir (Levemir) 25 unit SC HS [facility]; Protocol Last Admin: 08/08/18 22:08 Dose: 25 units Insulin Human Regular (Humulin R High) 0 units SC ACHS [facility]; Protocol Last Admin: 08/09/18 07:59 Dose: 2 units Ipratropium [place] (Atrovent) 0.5 mg IH TIDRESP [facility]; Protocol Last Admin: 08/09/18 07:05 Dose: Not Given Levalbuterol HCl (Xopenex) 0.63 mg IH TIDRESP [facility]; Protocol Last Admin: 08/09/18 07:06 Dose: Not Given Lisinopril (Zestril) 2.5 mg PO DAILY [facility]; Protocol Last Admin: 08/09/18 10:18 Dose: 2.5 mg Lorazepam (Ativan) 1 mg PO BID PRN; Protocol PRN Reason: Anxiety Last Admin: 08/08/18 21:57 Dose: 1 mg Metformin HCl (Glucophage) 1,000 mg PO 0800,1700 [facility]; Protocol Montelukast Sodium (Singulair) 10 mg PO HS [facility]; Protocol Last Admin: 08/08/18 21:55 Dose: 10 mg Oxycodone/Acetaminophen (Percocet 10/325 Mg Tab) 1 tab PO Q12 PRN; Protocol PRN Reason: Pain, moderate (4-7) Last Admin: 08/09/18 10:21 Dose: 1 tab Pantoprazole Sodium (Protonix Ec Tab) 40 mg PO HS [facility]; Protocol Prednisone (Prednisone Tab) 40 mg PO 0800,1700 [facility] Roflumilast (Daliresp) 250 mcg PO DAILY [facility]; Protocol Last Admin: 08/08/18 10:14 Dose: 250 mcg Ropinirole HCl (Requip) 0.5 mg PO HS [facility]; Protocol Last Admin: 08/08/18 21:54 Dose: 0.5 mg Sucralfate (Carafate Oral Susp) 1 gm PO 0630,1130,1630,2200 [facility] Trazodone HCl (Desyrel) 150 mg PO HS [facility]; Protocol Last Admin: 08/08/18 21:52 Dose: 150 mg Warfarin Sodium (Coumadin) 5 mg PO 1800 [facility]; Protocol - Labs Labs: 08/09/18 05:55 08/09/18 05:55 PT 19.5 SECONDS (9.4-12.5) H 08/09/18 05:30 INR 1.73 08/09/18 05:30 APTT 28.3 Seconds (26.9-38.3) 08/09/18 05:30 - Constitutional Appears: Non-toxic, Chronically Ill - Head Exam Head Exam: ATRAUMATIC, NORMOCEPHALIC - Eye Exam Eye Exam: EOMI. absent: Scleral icterus - ENT Exam ENT Exam: Mucous Membranes Moist, normal mucosa - Respiratory Exam Respiratory Exam: Wheezing mildly bibasilar. absent: Rales, Rhonchi - Cardiovascular Exam Cardiovascular Exam: +S1, +S2. absent: Gallop, Rubs - GI/Abdominal Exam GI & Abdominal Exam: Normal Bowel Sounds, Soft. absent: Distended, Tenderness - Extremities Exam Extremities exam: abrasion of left knee, healing - Neurological Exam Neurological exam: Alert, Oriented x3 - Psychiatric Exam Psychiatric exam: Normal Affect, Normal Mood - Skin Skin Exam: Dry, Warm Assessment and Plan - Assessment and Plan (Free Text) Assessment: 58-year-old male with a past medical history COPD on home oxygen at 2 L, heart failure with reduced ejection fraction of approximately 36% status post AICD, WESLY, CAD status post PCI, diabetes type 2, atrial fibrillation and previous DVT on Coumadin therapy who originally presented with SOB, now being in the [facility] care unit for continued physical therapy. Plan: 1. Deconditioning 2. Chest pain 3. Chronic obstructive pulmonary disease 3. Heart failure with reduced ejection fraction 4. CAD status post PCI 5. Diabetes type 2 6. Atrial fibrillation on Coumadin 7. DVT 8. Anxiety 9. Neuropathic pain For his deconditioning continue with physical therapy in the transitional care unit. We will obtain an EKG and troponin right now to evaluate his chest pain. We will also obtain a two-view x-ray. Discussed with house doctor. We will apply some Nitro-Bid for symptom medic relief. Cardio is consulted and following the patient. Continue with as needed and scheduled nebulizers as well as prednisone 40 mg twice daily and Daliresp and montelukast for his COPD. Pulmonary is following and the recommendations are appreciated. We will also continue with azithromycin and ceftriaxone for likely underlying bronchitis. For his atrial fibrillation his rate is well controlled with diltiazem. We will continue. His pain is well controlled with gabapentin and as needed oxycodone. For his anxiety he is well controlled with trazodone and as needed lorazepam. For his heart failure he continues to do well with lisinopril. Continue with 25 units twice daily of Levemir, metformin, Amaryl for his diabetes. Monitoring blood sugars closely his Levemir. However we will hold off at this time given that he is on steroid therapy. We will continue with warfarin for his atrial fibrillation and check his PT and PTT every couple of days. Patient was seen and examined and case discussed with attending physician. <Axel Villagomez - Last Filed: 08/09/18 19:26> Objective - Vital Signs/Intake and Output Vital Signs (last 24 hours): Temp Pulse Resp BP Pulse Ox 98.0 F 73 18 108/82 97 08/09/18 16:30 08/09/18 17:30 08/09/18 16:30 08/09/18 17:30 08/09/18 16:30 - Medications Medications: Current Medications Acetaminophen (Tylenol 325mg Tab) 650 mg PO Q4H PRN; Protocol PRN Reason: Pain, Mild (1-3) Acetylcysteine (Acetylcysteine 20%) 4 ml IH [id number] [facility] Last Admin: 08/09/18 13:32 Dose: Not Given Al Hydrox/Mg Hydrox/Simethicone (Maalox Plus 30 Ml) 10 ml PO Q6 PRN; Protocol PRN Reason: Indigestion / Heartburn Albuterol Sulfate (Albuterol 0.5% Inhal [place] (2.5 Mg/0.5 Ml) Ud) 2.5 mg IH [id number] PRN; Protocol PRN Reason: Shortness of Breath Albuterol/Ipratropium (Duoneb 3 Mg/0.5 Mg (3 Ml) Ud) 3 ml IH Q2H PRN; Protocol PRN Reason: Shortness of Breath Azithromycin (Zithromax) 500 mg PO DAILY [facility]; Protocol Last Admin: 08/09/18 10:19 Dose: 500 mg Benzonatate (Tessalon Perles) 200 mg PO TID [facility]; Protocol Last Admin: 08/09/18 17:28 Dose: 200 mg Carbamide Peroxide (Debrox Ear Drops) 0 ml AU BID [facility]; Protocol Last Admin: 08/09/18 17:25 Dose: Not Given Diltiazem HCl (Cardizem) 30 mg PO BID [facility]; Protocol Last Admin: 08/09/18 17:30 Dose: 30 mg Fluticasone Propionate (Flonase) 1 actuation NS BID [facility]; Protocol Last Admin: 08/09/18 17:28 Dose: 1 spr Folic Acid (Folic Acid) 1 mg PO DAILY [facility]; Protocol Last Admin: 08/09/18 10:00 Dose: 1 mg Gabapentin (Neurontin) 300 mg PO BID [facility]; Protocol Last Admin: 08/09/18 17:29 Dose: 300 mg Glimepiride (Amaryl) 4 mg PO 0800 [facility]; Protocol Last Admin: 08/09/18 07:53 Dose: 4 mg Ceftriaxone Sodium (Rocephin 1 Gram Ivpb) 1 gm in 100 mls @ 100 mls/hr IVPB 0600 [facility]; Protocol Last Admin: 08/09/18 07:56 Dose: 100 mls/hr Insulin Detemir (Levemir) 25 unit SC ACB [facility]; Protocol Last Admin: 08/09/18 07:41 Dose: 25 units Insulin Detemir (Levemir) 25 unit SC HS [facility]; Protocol Last Admin: 08/08/18 22:08 Dose: 25 units Insulin Human Regular (Humulin R High) 0 units SC ACHS [facility]; Protocol Last Admin: 08/09/18 17:25 Dose: Not Given Ipratropium [place] (Atrovent) 0.5 mg IH TIDRESP [facility]; Protocol Last Admin: 08/09/18 13:32 Dose: Not Given Levalbuterol HCl (Xopenex) 0.63 mg IH TIDRESP [facility]; Protocol Last Admin: 08/09/18 13:32 Dose: Not Given Lisinopril (Zestril) 2.5 mg PO DAILY [facility]; Protocol Last Admin: 08/09/18 10:18 Dose: 2.5 mg Lorazepam (Ativan) 1 mg PO BID PRN; Protocol PRN Reason: Anxiety Last Admin: 08/08/18 21:57 Dose: 1 mg Metformin HCl (Glucophage) 1,000 mg PO 0800,1700 [facility]; Protocol Last Admin: 08/09/18 17:29 Dose: 1,000 mg Montelukast Sodium (Singulair) 10 mg PO HS [facility]; Protocol Last Admin: 08/08/18 21:55 Dose: 10 mg Oxycodone/Acetaminophen (Percocet 10/325 Mg Tab) 1 tab PO Q12 PRN; Protocol PRN Reason: Pain, moderate (4-7) Last Admin: 08/09/18 10:21 Dose: 1 tab Pantoprazole Sodium (Protonix Ec Tab) 40 mg PO 0600 [facility]; Protocol Prednisone (Prednisone Tab) 40 mg PO 0800,1700 [facility] Last Admin: 08/09/18 17:29 Dose: 40 mg Roflumilast (Daliresp) 250 mcg PO DAILY [facility]; Protocol Last Admin: 08/09/18 10:00 Dose: 250 mcg Ropinirole HCl (Requip) 0.5 mg PO HS [facility]; Protocol Last Admin: 08/08/18 21:54 Dose: 0.5 mg Sucralfate (Carafate Oral Susp) 1 gm PO 0630,1130,1630,2200 [facility] Last Admin: 08/09/18 17:30 Dose: 1 gm Trazodone HCl (Desyrel) 150 mg PO HS [facility]; Protocol Last Admin: 08/08/18 21:52 Dose: 150 mg Warfarin Sodium (Coumadin) 5 mg PO 1800 [facility]; Protocol Last Admin: 08/09/18 17:29 Dose: 5 mg - Labs Labs: 08/09/18 05:55 08/09/18 05:55 PT 19.5 SECONDS (9.4-12.5) H 08/09/18 05:30 INR 1.73 08/09/18 05:30 APTT 28.3 Seconds (26.9-38.3) 08/09/18 05:30 Assessment and Plan - Assessment and Plan (Free Text) Plan: Pt seen and examined by me. I have reviewed the note of the medical radiation therapist and I agree with it. I have discussed the assessment and plan with the resident. I have reviewed the medications and the last labs.
[2018-08-09] MEDS: Sucralfate 1 gm/10 ml Oral Susp UD PO SCH ×3 (12:31→21:20)
--- NOTE | 2018-08-09 12:38 | RAD ---
Date of service: 08/09/2018 HISTORY: chest discomfort, COPD pt COMPARISON: 08/03/2018 TECHNIQUE: Chest PA and lateral views FINDINGS: LUNGS: No active pulmonary disease. PLEURA: No significant pleural effusion identified. No pneumothorax apparent. CARDIOVASCULAR: No aortic atherosclerotic calcification present. Moderate cardiomegaly no pulmonary vascular congestion. OSSEOUS STRUCTURES: No significant abnormalities. VISUALIZED UPPER ABDOMEN: Normal. OTHER FINDINGS: Dual lead pacemaker IMPRESSION: No active disease.
--- NOTE | 2018-08-09 12:44 | PN ---
DATE: 08/09/2018 PULMONARY PROGRESS NOTE REFERRING PHYSICIAN: Axel Villagomez MD SUBJECTIVE: The patient is seen sitting in armchair in room. No acute distress at this time. The patient reports that earlier this morning, he was feeling some chest tightness, was seen by iliana SAUNDERS, attending physician, and Cardiology this morning per nursing staff. EKG was done. Lab work was done. The patient was given nitroglycerine. At this time, the patient is sitting in chair, reports improvement in pain. Still with some productive cough. Shortness of breath has improved, but is still present with some exertion. No headache, rhinitis, abdominal pain, nausea, vomiting, diarrhea, leg pain or leg swelling reported. PHYSICAL EXAMINATION: GENERAL: No acute distress. VITAL SIGNS: Blood pressure 120/77, pulse 70, temperature 97.5, oxygen saturation 99% on room air. HEENT: Moist mucous membranes. Mallampati score 4. Crowded airway. NECK: Supple. No JVD. LUNGS: Fair airflow bilaterally. CARDIOVASCULAR: S1, S2. ABDOMEN: Positive epigastric tenderness, soft. EXTREMITIES: No bilateral lower extremity edema. NEUROLOGIC: Awake, alert, verbal, following commands. MEDICATIONS: Reviewed. Tylenol 650 every 4 hours p.r.n. mild pain, Mucomyst 4 mL inhalation every 6 hours, Maalox 10 mL p.o. every 6 hours p.r.n., albuterol 2.5 mg inhalation every 6 hours p.r.n., DuoNeb 3 mL inhalation every 2 hours p.r.n., Zithromax 500 mg daily, Tessalon Perles 200 mg 3 times a day, Debrox eardrops twice a day, Rocephin 1 g daily, Cardizem 30 mg twice a day, Flonase nasal spray twice a day, folic acid 1 mg daily, gabapentin 300 mg 2 times a day, Amaryl 4 mg daily, Levemir 25 units subcutaneous h.s., Levemir 25 units subcutaneous a.c., Humulin R sliding scale a.c. and h.s., Atrovent 0.5 mg inhalation three times a day, Xopenex 0.63 mg inhalation 3 times a day, lisinopril 2.5. mg daily, Ativan 1 mg twice a day p.r.n., metformin 1000 mg twice a day, Singulair 10 mg h.s., Percocet 10/325 mg every 12 hours p.r.n., Protonix 40 mg daily, prednisone 40 mg twice a day, Daliresp 250 mcg daily, ReQuip 0.5 mg h.s., trazodone 150 mg h.s., Coumadin 5 mg daily. LABORATORY DATA: Reviewed. WBC 21.6, RBC 5.40, hemoglobin 15, hematocrit 45, platelets 200. PT 19.5, INR 1.73, APTT 28.3. Sodium 132, potassium 4.9, chloride 98, carbon dioxide 22, anion gap 16, BUN 63, creatinine 1.1, GFR greater than 60, POC glucose 244, random glucose 221, calcium 9.8, phosphorus 3.9,magnesium 3.3. Total bilirubin 0.7, AST 22, ALT 38, alkaline phosphatase 52, troponin 0.05. Total protein 6.7, albumin 4, globulin 2.7, albumin-globulin ratio 1.5. EKG report pending. IMPRESSION AND PLAN: Chronic obstructive pulmonary disease, has oxygen at home; congestive heart failure; anemia; cardiomyopathy; coronary artery disease status post coronary artery bypass graft; history of sleep apnea syndrome; diabetes mellitus; atrial fibrillation, diabetic neuropathy, anxiety, depression. The patient is currently on anticoagulation therapy. Continue inhaled bronchodilators, gastric prophylaxis. On antibiotic therapy. We will add Carafate 1 g a.c. and h.s. for suspected gastroesophageal reflux disease. Fall precautions. Head of bed elevated 45 degrees. Continue physical therapy. Recommend pulmonary function test as outpatient. The patient seen and examined with Dr. Godinez. Discussed assessment and plan as described above. The patient seen and examined by Trudy Singh, nurse practitioner. Discussed assessment and plan as described above. Thank you for this consult. We will follow with you. Trudy Singh APN Tia Godinez MD
--- NOTE | 2018-08-09 18:21 | CARD ---
APPROVED REPORT Date of service: 08/09/2018 EKG Measurement Heart [id number] <Conclusion> Undetermined rhythm Right bundle branch block Possible Anterolateral infarct, age undetermined Abnormal ECG
[2018-08-09 18:34] VITALS: RESP 18
[2018-08-09 21:10] LABS: TROPONIN I 0.05 ng/mL
[2018-08-09] MEDS: Pantoprazole 40 mg EC Tab PO SCH (22:20)
--- NOTE | 2018-08-10 00:15 | PN ---
DATE: 08/09/2018 REASON FOR CONSULTATION: Followup cardiac evaluation, shortness of breath with paroxysmal atrial fibrillation, status post radiofrequency ablation, status post AICD, nonischemic cardiomyopathy, decongestive heart disease. SUBJECTIVE: The patient this morning was complaining of chest pain radiating to the jaw. Troponin was sent. EKG essentially unchanged and troponin was 0.05. OBJECTIVE: GENERAL: Not in apparent distress. Feels now the chest pain is completely resolved. VITAL SIGNS: Temperature afebrile, heart rate , blood pressure 118/82. HEENT: PERRLA. Extraocular muscles intact. NECK: Supple. No carotid bruit. No thyromegaly. CHEST: Clear to auscultation. HEART: S1, S2. Regular. ABDOMEN: Soft. EXTREMITIES: Clubbing, cyanosis negative. LABORATORY DATA: Blood workup: WBC 21.6, hemoglobin 15, hematocrit 45, platelet count 200. Chemistry: Sodium 132, potassium 4.9, chloride 98, CO2 of 22, anion gap of 15, BUN 16, creatinine 1.1. EKG showed AFib, low voltage, no acute ST-T changes noted, no right bundle branch block. IMPRESSION: A 58-year-old morbidly obese male with past medical history significant for chronic atrial fibrillation, failed transesophageal echocardiography cardioversion, failed radiofrequency ablation. He is status post automatic implantable cardioverter defibrillator, status post cardiac catheterization three times, normal coronaries, history of deep venous thrombosis, history of acute ischemia of the leg, and arterial occlusion. Admitted with chronic obstructive pulmonary disease exacerbation. Now, the patient in transitional care unit with continuity of care. This morning the patient with chest pain, completely resolved now. Electrocardiogram showed acute changes. First troponin is 0.05. RECOMMENDATION AND FOLLOWUP: Serial CPK and troponin. Further recommendations depending on the hospital course. If troponin is positive, consider cardiac catheterization although it most likely is a nonischemic chest pain as the patient had a cardiac catheterization three times prior to that and was essentially negative. We will follow with you. Thank you Dr. Villagomez for providing us the opportunity in taking care of the patient, Pete Marionacosta. Tia Rajan MD
--- NOTE | 2018-08-10 00:35 | PN ---
DATE: 07/10/2018 The patient was seen and examined. I do agree with the note of the director of medical services. I was involved in the plan of care. The patient was having chest pain this morning and EKG was done, did not show any significant abnormalities. I did speak to Dr. Rajan, who also saw the patient. The patient is going to be placed on nitroglycerin for the chest pain. The patient is going to continue with prednisone and nebulizer treatments for the acute COPD. He is being followed by Pulmonary. The patient had a chest x-ray that shows no active disease. He is going to continue with diltiazem for the atrial fibrillation. He is on gabapentin for his neuropathy. The patient is on trazodone for sleeping. She is on lorazepam for anxiety. The patient is on lisinopril for his CHF secondary to systolic dysfunction, currently stable. The patient is on Levemir for his diabetes type 2. He is also on Amaryl and metformin. He was going to have his PT/INR checked. He is doing well with physical therapy. He continues to have cough and congestion. Axel Villagomez MD
--- NOTE | 2018-08-10 02:41 | CP.PCM.PN ---
Subjective - Date & Time of Evaluation Date of Evaluation: 08/10/18 Time of Evaluation: 02:41 - Subjective Subjective: tbd Objective - Vital Signs/Intake and Output Vital Signs (last 24 hours): Temp Pulse Resp BP Pulse Ox 98.0 F 73 18 108/82 97 08/09/18 16:30 08/09/18 17:30 08/09/18 16:30 08/09/18 17:30 08/09/18 16:30 - Medications Medications: Current Medications Acetaminophen (Tylenol 325mg Tab) 650 mg PO Q4H PRN; Protocol PRN Reason: Pain, Mild (1-3) Acetylcysteine (Acetylcysteine 20%) 4 ml IH [id number] [facility] Last Admin: 08/09/18 20:41 Dose: Not Given Al Hydrox/Mg Hydrox/Simethicone (Maalox Plus 30 Ml) 10 ml PO Q6 PRN; Protocol PRN Reason: Indigestion / Heartburn Albuterol Sulfate (Albuterol 0.5% Inhal [place] (2.5 Mg/0.5 Ml) Ud) 2.5 mg IH [id number] PRN; Protocol PRN Reason: Shortness of Breath Albuterol/Ipratropium (Duoneb 3 Mg/0.5 Mg (3 Ml) Ud) 3 ml IH Q2H PRN; Protocol PRN Reason: Shortness of Breath Azithromycin (Zithromax) 500 mg PO DAILY [facility]; Protocol Last Admin: 08/09/18 10:19 Dose: 500 mg Benzonatate (Tessalon Perles) 200 mg PO TID [facility]; Protocol Last Admin: 08/09/18 17:28 Dose: 200 mg Carbamide Peroxide (Debrox Ear Drops) 0 ml AU BID [facility]; Protocol Last Admin: 08/09/18 17:25 Dose: Not Given Diltiazem HCl (Cardizem) 30 mg PO BID [facility]; Protocol Last Admin: 08/09/18 17:30 Dose: 30 mg Fluticasone Propionate (Flonase) 1 actuation NS BID [facility]; Protocol Last Admin: 08/09/18 17:28 Dose: 1 spr Folic Acid (Folic Acid) 1 mg PO DAILY [facility]; Protocol Last Admin: 08/09/18 10:00 Dose: 1 mg Gabapentin (Neurontin) 300 mg PO BID [facility]; Protocol Last Admin: 08/09/18 17:29 Dose: 300 mg Glimepiride (Amaryl) 4 mg PO 0800 [facility]; Protocol Last Admin: 08/09/18 07:53 Dose: 4 mg Ceftriaxone Sodium (Rocephin 1 Gram Ivpb) 1 gm in 100 mls @ 100 mls/hr IVPB 0600 [facility]; Protocol Last Admin: 08/09/18 07:56 Dose: 100 mls/hr Insulin Detemir (Levemir) 25 unit SC ACB [facility]; Protocol Last Admin: 08/09/18 07:41 Dose: 25 units Insulin Detemir (Levemir) 25 unit SC HS [facility]; Protocol Last Admin: 08/09/18 22:25 Dose: 25 units Insulin Human Regular (Humulin R High) 0 units SC ACHS [facility]; Protocol Last Admin: 08/09/18 22:24 Dose: Not Given Ipratropium [place] (Atrovent) 0.5 mg IH TIDRESP [facility]; Protocol Last Admin: 08/09/18 20:42 Dose: Not Given Levalbuterol HCl (Xopenex) 0.63 mg IH TIDRESP [facility]; Protocol Last Admin: 08/09/18 13:32 Dose: Not Given Lisinopril (Zestril) 2.5 mg PO DAILY [facility]; Protocol Last Admin: 08/09/18 10:18 Dose: 2.5 mg Lorazepam (Ativan) 1 mg PO BID PRN; Protocol PRN Reason: Anxiety Last Admin: 08/09/18 21:24 Dose: 1 mg Metformin HCl (Glucophage) 1,000 mg PO 0800,1700 [facility]; Protocol Last Admin: 08/09/18 17:29 Dose: 1,000 mg Montelukast Sodium (Singulair) 10 mg PO HS [facility]; Protocol Last Admin: 08/09/18 21:22 Dose: 10 mg Oxycodone/Acetaminophen (Percocet 10/325 Mg Tab) 1 tab PO Q12 PRN; Protocol PRN Reason: Pain, moderate (4-7) Last Admin: 08/09/18 10:21 Dose: 1 tab Pantoprazole Sodium (Protonix Ec Tab) 40 mg PO 0600 [facility]; Protocol Prednisone (Prednisone Tab) 40 mg PO 0800,1700 [facility] Last Admin: 08/09/18 17:29 Dose: 40 mg Roflumilast (Daliresp) 250 mcg PO DAILY [facility]; Protocol Last Admin: 08/09/18 10:00 Dose: 250 mcg Ropinirole HCl (Requip) 0.5 mg PO HS [facility]; Protocol Last Admin: 08/09/18 21:21 Dose: 0.5 mg Sucralfate (Carafate Oral Susp) 1 gm PO 0630,1130,1630,2200 [facility] Last Admin: 08/09/18 21:20 Dose: 1 gm Trazodone HCl (Desyrel) 150 mg PO HS [facility]; Protocol Last Admin: 08/09/18 21:20 Dose: 150 mg Warfarin Sodium (Coumadin) 5 mg PO 1800 [facility]; Protocol Last Admin: 08/09/18 17:29 Dose: 5 mg - Labs Labs: 08/09/18 05:55 08/09/18 05:55 PT 19.5 SECONDS (9.4-12.5) H 08/09/18 05:30 INR 1.73 08/09/18 05:30 APTT 28.3 Seconds (26.9-38.3) 08/09/18 05:30
[2018-08-10] MEDS: Pantoprazole 40 mg EC Tab PO SCH (05:21)
[2018-08-10] MEDS: Sucralfate 1 gm/10 ml Oral Susp UD PO SCH ×4 (05:30→22:01)
[2018-08-10] MEDS: cefTRIAXone 1 gm 1 GM/100 ML BAG IVPB SCH (05:31)
[2018-08-10] MEDS: Insulin Reg-HIGH-Coverage SC SCH ×4 (06:59→22:55)
[2018-08-10] MEDS: Acetylcysteine 20% Inhal Soln (4ml) IH SCH ×4 (07:09→19:29)
[2018-08-10] MEDS: Ipratropium 0.02% Inhal Soln (0.5 mg/2.5 ml) UD IH SCH ×3 (07:10→19:29)
[2018-08-10] MEDS: Levalbuterol 0.63 MG/3 ML Inhal Soln UD IH SCH ×3 (07:10→19:29)
[2018-08-10 07:50] LABS: BASO # 0.02 K/mm3 (0.0-2.0); BASO % 0.1 % (0.0-3.0); HEMOGLOBIN 14.8 g/dL (14.0-18.0); LYMPH # 1.8 (1.2-3.4); LYMPH % 8.4 % (22.0-35.0); MEAN CELL VOLUME 83.3 fl (80.0-105.0); MEAN CORPUSCULAR HEMOGLOBIN 27.7 pg (25.0-35.0); MEAN CORPUSCULAR HGB CONC 33.3 g/dl (31.0-37.0); MEAN PLATELET VOLUME 10.1 fl (7.0-11.0); MONO # 0.3 (0.1-0.6); MONO % 1.2 % (1.0-6.0); PLATELET COUNT 185 10^3/uL (120.0-450.0); RBC 5.34 10^6/uL (3.5-6.1); RED CELL DISTRIBUTION WIDTH 18.1 % (11.5-14.5); WHITE BLOOD COUNT 21.5 10^3/uL (4.5-11.0)
[2018-08-10 07:55] LABS: INR 1.44; PROTHROMBIN TIME 16.3 SECONDS (9.4-12.5)
[2018-08-10 08:05] LABS: BLOOD UREA NITROGEN 54 mg/dL (7-21); CALCIUM 9.5 mg/dL (8.4-10.5); GFR NON-AFRICAN AMERICAN > 60
[2018-08-10 08:13] LABS: TROPONIN I 0.04 ng/mL
[2018-08-10 08:22] LABS: LYMPHOCYTE 3 % (22.0-35.0); MONOCYTE 4 % (1.0-6.0); NEUTROPHIL 93 % (50.0-70.0); PLATELET ESTIMATE NORMAL (NORMAL)
[2018-08-10] MEDS: Fluticasone Nasal 50 mcg/Spray NS SCH ×2 (10:22→17:30)
--- NOTE | 2018-08-10 11:06 | CP.PCM.PN ---
<Deonte Bland - Last Filed: 08/10/18 11:00> Subjective - Date & Time of Evaluation Date of Evaluation: 08/10/18 Time of Evaluation: 07:15 - Subjective Subjective: Deonte Bland D.O. PGY-3, Internal Medicine Resident, Dr. Villagomez's Service, Progress Note 58-year-old male with a past medical history COPD on home oxygen at 2 L, heart failure with reduced ejection fraction of approximately 36% status post AICD, WESLY, CAD status post PCI, diabetes type 2, atrial fibrillation and previous DVT on Coumadin therapy who originally presented with SOB, now being in the transitional care unit for continued physical therapy. Patient was seen and examined at bedside. States his chest discomfort somewhat improved but still feels it. No breathing issues. Objective - Vital Signs/Intake and Output Vital Signs (last 24 hours): Temp Pulse Resp BP Pulse Ox 98.0 F 67 18 118/78 97 08/09/18 16:30 08/10/18 10:23 08/09/18 16:30 08/10/18 10:23 08/09/18 16:30 - Medications Medications: Current Medications Acetaminophen (Tylenol 325mg Tab) 650 mg PO Q4H PRN; Protocol PRN Reason: Pain, Mild (1-3) Acetylcysteine (Acetylcysteine 20%) 4 ml IH [id number] [facility] Last Admin: 08/10/18 07:10 Dose: Not Given Al Hydrox/Mg Hydrox/Simethicone (Maalox Plus 30 Ml) 10 ml PO Q6 PRN; Protocol PRN Reason: Indigestion / Heartburn Last Admin: 08/10/18 08:01 Dose: 10 ml Albuterol Sulfate (Albuterol 0.5% Inhal [place] (2.5 Mg/0.5 Ml) Ud) 2.5 mg IH [id number] PRN; Protocol PRN Reason: Shortness of Breath Albuterol/Ipratropium (Duoneb 3 Mg/0.5 Mg (3 Ml) Ud) 3 ml IH Q2H PRN; Protocol PRN Reason: Shortness of Breath Azithromycin (Zithromax) 500 mg PO DAILY [facility]; Protocol Last Admin: 08/10/18 10:22 Dose: 500 mg Benzonatate (Tessalon Perles) 200 mg PO TID [facility]; Protocol Last Admin: 08/10/18 10:23 Dose: Not Given Carbamide Peroxide (Debrox Ear Drops) 0 ml AU BID [facility]; Protocol Last Admin: 08/10/18 10:23 Dose: Not Given Diltiazem HCl (Cardizem) 30 mg PO BID [facility]; Protocol Last Admin: 08/10/18 10:23 Dose: 30 mg Fluticasone Propionate (Flonase) 1 actuation NS BID [facility]; Protocol Last Admin: 08/10/18 10:22 Dose: 1 spr Folic Acid (Folic Acid) 1 mg PO DAILY [facility]; Protocol Last Admin: 08/10/18 10:22 Dose: 1 mg Gabapentin (Neurontin) 300 mg PO BID [facility]; Protocol Last Admin: 08/10/18 10:22 Dose: 300 mg Glimepiride (Amaryl) 4 mg PO 0800 [facility]; Protocol Last Admin: 08/10/18 08:00 Dose: 4 mg Ceftriaxone Sodium (Rocephin 1 Gram Ivpb) 1 gm in 100 mls @ 100 mls/hr IVPB 0600 [facility]; Protocol Last Admin: 08/10/18 05:31 Dose: 100 mls/hr Insulin Detemir (Levemir) 25 unit SC ACB [facility]; Protocol Last Admin: 08/09/18 07:41 Dose: 25 units Insulin Detemir (Levemir) 25 unit SC HS [facility]; Protocol Last Admin: 08/09/18 22:25 Dose: 25 units Insulin Human Regular (Humulin R High) 0 units SC ACHS [facility]; Protocol Last Admin: 08/10/18 06:59 Dose: Not Given Ipratropium [place] (Atrovent) 0.5 mg IH TIDRESP [facility]; Protocol Last Admin: 08/10/18 07:10 Dose: Not Given Levalbuterol HCl (Xopenex) 0.63 mg IH TIDRESP [facility]; Protocol Last Admin: 08/10/18 07:10 Dose: Not Given Lisinopril (Zestril) 2.5 mg PO DAILY [facility]; Protocol Last Admin: 08/10/18 10:22 Dose: 2.5 mg Lorazepam (Ativan) 1 mg PO BID PRN; Protocol PRN Reason: Anxiety Last Admin: 08/09/18 21:24 Dose: 1 mg Metformin HCl (Glucophage) 1,000 mg PO 0800,1700 [facility]; Protocol Last Admin: 08/10/18 08:00 Dose: 1,000 mg Montelukast Sodium (Singulair) 10 mg PO HS [facility]; Protocol Last Admin: 08/09/18 21:22 Dose: 10 mg Oxycodone/Acetaminophen (Percocet 10/325 Mg Tab) 1 tab PO Q12 PRN; Protocol PRN Reason: Pain, moderate (4-7) Last Admin: 08/09/18 10:21 Dose: 1 tab Pantoprazole Sodium (Protonix Ec Tab) 40 mg PO 0600 [facility]; Protocol Last Admin: 08/10/18 05:21 Dose: 40 mg Prednisone (Prednisone Tab) 40 mg PO 0800,1700 [facility] Last Admin: 08/10/18 08:00 Dose: 40 mg Roflumilast (Daliresp) 250 mcg PO DAILY [facility]; Protocol Last Admin: 08/10/18 10:23 Dose: 250 mcg Ropinirole HCl (Requip) 0.5 mg PO HS [facility]; Protocol Last Admin: 08/09/18 21:21 Dose: 0.5 mg Sucralfate (Carafate Oral Susp) 1 gm PO 0630,1130,1630,2200 [facility] Last Admin: 08/10/18 05:30 Dose: 1 gm Trazodone HCl (Desyrel) 150 mg PO HS [facility]; Protocol Last Admin: 08/09/18 21:20 Dose: 150 mg Warfarin Sodium (Coumadin) 5 mg PO 1800 [facility]; Protocol Last Admin: 08/09/18 17:29 Dose: 5 mg - Labs Labs: 08/10/18 07:00 08/10/18 07:00 PT 16.3 SECONDS (9.4-12.5) H 08/10/18 07:00 INR 1.44 08/10/18 07:00 APTT 28.3 Seconds (26.9-38.3) 08/09/18 05:30 - Constitutional Appears: Non-toxic, Chronically Ill - Head Exam Head Exam: ATRAUMATIC, NORMOCEPHALIC - Eye Exam Eye Exam: EOMI. absent: Scleral icterus - ENT Exam ENT Exam: Mucous Membranes Moist, normal mucosa - Respiratory Exam Respiratory Exam: Wheezing mildly bibasilar. absent: Rales, Rhonchi - Cardiovascular Exam Cardiovascular Exam: +S1, +S2. absent: Gallop, Rubs - GI/Abdominal Exam GI & Abdominal Exam: Normal Bowel Sounds, Soft. absent: Distended, Tenderness - Extremities Exam Extremities exam: abrasion of left knee, healing - Neurological Exam Neurological exam: Alert, Oriented x3 - Psychiatric Exam Psychiatric exam: Normal Affect, Normal Mood - Skin Skin Exam: Dry, Warm Assessment and Plan - Assessment and Plan (Free Text) Assessment: 58-year-old male with a past medical history COPD on home oxygen at 2 L, heart failure with reduced ejection fraction of approximately 36% status post AICD, WESLY, CAD status post PCI, diabetes type 2, atrial fibrillation and previous DVT on Coumadin therapy who originally presented with SOB, now being in the transitional care unit for continued physical therapy. Plan: 1. Deconditioning 2. Chest discomfort 3. Chronic obstructive pulmonary disease 3. Heart failure with reduced ejection fraction 4. CAD status post stents 5. Diabetes type 2 6. Atrial fibrillation on Coumadin 7. DVT 8. Anxiety 9. Neuropathic pain 10. RLS Continue with physical therapy. Was started on Protonix by pulmonary and Carafate by cardiology as GERD is thought to likely be the etiology of his discomfort. Their recommendations are appreciated. Patient for his COPD continues to be on scheduled and as needed nebulizers although he is not required to him all times, Roflumilast, prednisone 40 twice daily, montelukast. Continues to be on azithromycin and ceftriaxone. Cough is controlled with benzonatate. For his atrial fibrillation rate is controlled with diltiazem as well as anticoagulation with warfarin. His pain so far has been well controlled with his gabapentin and as needed oxycodone. Trazodone and as needed Lorazepam currently being used for his anxiety. For his heart failure he is currently on lisinopril. For his diabetes his glucose levels seem to be improving and over the last 24 hours his blood sugars have ranged from 99 294. We will continue with Levemir 25 twice daily as well as metformin and Amaryl. For his restless legs he is doing well with Requip. Overall patient slowly improving. Encouraged to be as active as possible with physical therapy. Patient was seen and examined and case discussed with attending physician. <Axel Villagomez - Last Filed: 08/10/18 16:21> Objective - Vital Signs/Intake and Output Vital Signs (last 24 hours): Temp Pulse Resp BP Pulse Ox 98.0 F 67 18 118/78 97 08/09/18 16:30 08/10/18 10:23 08/09/18 16:30 08/10/18 10:23 08/09/18 16:30 - Medications Medications: Current Medications Acetaminophen (Tylenol 325mg Tab) 650 mg PO Q4H PRN; Protocol PRN Reason: Pain, Mild (1-3) Acetylcysteine (Acetylcysteine 20%) 4 ml IH [id number] [facility] Last Admin: 08/10/18 13:16 Dose: Not Given Al Hydrox/Mg Hydrox/Simethicone (Maalox Plus 30 Ml) 10 ml PO Q6 PRN; Protocol PRN Reason: Indigestion / Heartburn Last Admin: 08/10/18 08:01 Dose: 10 ml Albuterol Sulfate (Albuterol 0.5% Inhal [place] (2.5 Mg/0.5 Ml) Ud) 2.5 mg IH [id number] PRN; Protocol PRN Reason: Shortness of Breath Albuterol/Ipratropium (Duoneb 3 Mg/0.5 Mg (3 Ml) Ud) 3 ml IH Q2H PRN; Protocol PRN Reason: Shortness of Breath Azithromycin (Zithromax) 500 mg PO DAILY [facility]; Protocol Last Admin: 08/10/18 10:22 Dose: 500 mg Benzonatate (Tessalon Perles) 200 mg PO TID [facility]; Protocol Last Admin: 08/10/18 14:26 Dose: Not Given Carbamide Peroxide (Debrox Ear Drops) 0 ml AU BID [facility]; Protocol Last Admin: 08/10/18 10:23 Dose: Not Given Diltiazem HCl (Cardizem) 30 mg PO BID [facility]; Protocol Last Admin: 08/10/18 10:23 Dose: 30 mg Fluticasone Propionate (Flonase) 1 actuation NS BID [facility]; Protocol Last Admin: 08/10/18 10:22 Dose: 1 spr Folic Acid (Folic Acid) 1 mg PO DAILY [facility]; Protocol Last Admin: 08/10/18 10:22 Dose: 1 mg Gabapentin (Neurontin) 300 mg PO BID [facility]; Protocol Last Admin: 08/10/18 10:22 Dose: 300 mg Glimepiride (Amaryl) 4 mg PO 0800 [facility]; Protocol Last Admin: 08/10/18 08:00 Dose: 4 mg Ceftriaxone Sodium (Rocephin 1 Gram Ivpb) 1 gm in 100 mls @ 100 mls/hr IVPB 0 600 [facility]; Protocol Last Admin: 08/10/18 05:31 Dose: 100 mls/hr Insulin Detemir (Levemir) 25 unit SC ACB [facility]; Protocol Last Admin: 08/09/18 07:41 Dose: 25 units Insulin Detemir (Levemir) 25 unit SC HS [facility]; Protocol Last Admin: 08/09/18 22:25 Dose: 25 units Insulin Human Regular (Humulin R High) 0 units SC ACHS [facility]; Protocol Last Admin: 08/10/18 11:23 Dose: Not Given Ipratropium [place] (Atrovent) 0.5 mg IH TIDRESP [facility]; Protocol Last Admin: 08/10/18 13:16 Dose: Not Given Levalbuterol HCl (Xopenex) 0.63 mg IH TIDRESP [facility]; Protocol Last Admin: 08/10/18 07:10 Dose: Not Given Lisinopril (Zestril) 2.5 mg PO DAILY [facility]; Protocol Last Admin: 08/10/18 10:22 Dose: 2.5 mg Lorazepam (Ativan) 1 mg PO BID PRN; Protocol PRN Reason: Anxiety Last Admin: 08/09/18 21:24 Dose: 1 mg Metformin HCl (Glucophage) 1,000 mg PO 0800,1700 [facility]; Protocol Last Admin: 08/10/18 08:00 Dose: 1,000 mg Montelukast Sodium (Singulair) 10 mg PO HS [facility]; Protocol Last Admin: 08/09/18 21:22 Dose: 10 mg Oxycodone/Acetaminophen (Percocet 10/325 Mg Tab) 1 tab PO Q12 PRN; Protocol PRN Reason: Pain, moderate (4-7) Last Admin: 08/09/18 10:21 Dose: 1 tab Pantoprazole Sodium (Protonix Ec Tab) 40 mg PO 0600 [facility]; Protocol Last Admin: 08/10/18 05:21 Dose: 40 mg Prednisone (Prednisone Tab) 40 mg PO 0800,1700 [facility] Last Admin: 08/10/18 08:00 Dose: 40 mg Roflumilast (Daliresp) 250 mcg PO DAILY [facility]; Protocol Last Admin: 08/10/18 10:23 Dose: 250 mcg Ropinirole HCl (Requip) 0.5 mg PO HS [facility]; Protocol Last Admin: 08/09/18 21:21 Dose: 0.5 mg Sucralfate (Carafate Oral Susp) 1 gm PO 0630,1130,1630,2200 [facility] Last Admin: 08/10/18 12:33 Dose: 1 gm Trazodone HCl (Desyrel) 150 mg PO HS [facility]; Protocol Last Admin: 08/09/18 21:20 Dose: 150 mg Warfarin Sodium (Coumadin) 5 mg PO 1800 [facility]; Protocol Last Admin: 08/09/18 17:29 Dose: 5 mg - Labs Labs: 08/10/18 07:00 08/10/18 07:00 PT 16.3 SECONDS (9.4-12.5) H 08/10/18 07:00 INR 1.44 08/10/18 07:00 APTT 28.3 Seconds (26.9-38.3) 08/09/18 05:30 Assessment and Plan - Assessment and Plan (Free Text) Plan: Pt seen and examined by me. I have reviewed the note of the medical communication specialist and I agree with it. I have discussed the assessment and plan with the resident. I have reviewed the medications and the last labs.
--- NOTE | 2018-08-10 20:13 | PN ---
DATE: 08/10/2018 SUBJECTIVE: The patient was seen and examined. I do agree with the note of the hospital medical biller. I was involved in the plan of care. The patient is deconditioned. He is getting physical therapy. He had chest pain yesterday, that has improved. The patient has acute COPD exacerbation and she is nebulizing on steroids. She is being followed by Dr. Godinez from Pulmonary. The patient has coronary artery disease and is on aspirin. The patient is receiving Levemir for his diabetes, as well as his metformin. He has atrial fibrillation, he is on anticoagulation with warfarin. The patient is on prednisone for his steroid and it is being tapered. He is on diltiazem and Coumadin for his atrial fibrillation. He has restless leg syndrome and he is on ropinirole for that. He is on Tylenol as needed. He is receiving lisinopril. Axel Villagomez MD
--- NOTE | 2018-08-10 20:59 | PN ---
DATE: 08/10/2018 REFERRING PHYSICIAN: Axel Villagomez MD. SUBJECTIVE: He is out of bed to chair, feels better. No more chest pain. No nausea. No vomiting. No diarrhea. No leg pain or leg swelling. PHYSICAL EXAMINATION: VITAL SIGNS: Temperature is 98, heart rate is 69, respiratory rate is 18, blood pressure 119/66, pulse ox is 97% on room air. HEENT: Moist mucous membranes. Crowded airway. NECK: Supple. No JVD. LUNGS: Fair airflow, but prolonged expiratory phase. HEART: S1 and S2. ABDOMEN: Soft, nontender. No organomegaly. EXTREMITIES: No edema. NEUROLOGIC: Awake, alert, follows simple commands. MEDICATIONS: He is on Mucomyst inhaler twice a day, albuterol, Ativan, nebulizer every 6 hour p.r.n., glimepiride 4 mg daily, lorazepam 1 mg twice a day p.r.n., Atrovent 0.5 mg inhaled twice a day, Carafate 1 g q.i.d., Cardizem 30 mg twice a day, Coumadin 5 mg, Daliresp 250 mcg daily, Debrox drops both ears, trazodone 150 mg daily, albuterol/Atrovent nebulizer every 12 hours p.r.n., Flonase nasal spray twice daily, metformin 1000 mg twice a day, Levemir 25 units subcu at bedtime, Levemir 25 units subcu a.c., also Maalox p.r.n. basis, gabapentin 300 mg twice a day, Percocet 10/325 mg one tablet every 12 hours p.r.n., prednisone 40 mg twice a day, Protonix 40 mg daily, Requip 0.5 mg at bedtime, Rocephin 1 g IV daily, Singulair 10 mg daily, Tessalon Perles 200 mg 3 times a day, Tylenol p.r.n., Xopenex p.r.n. basis, Zestril 2.5 mg daily, Zithromax 500 mg daily. LABORATORY DATA: Shows hemoglobin 14.8, hematocrit 44.5, WBC 21,000, and platelet count is 185. INR 1.44. Sodium 131, potassium 5, chloride 91, bicarbonate 20, BUN 54, creatinine 1.1, glucose 114, calcium is 9.5. LDH is 443. Creatinine kinase is less than 20. Troponin is 0.04. IMPRESSION AND PLAN: Chronic obstructive lung disease, congestive heart failure, anemia, cardiomyopathy, coronary artery disease, history of coronary bypass surgery with coronary stent, sleep apnea syndrome, diabetes, atrial fibrillation, peripheral neuropathy, anxiety, depression, probably with gastroesophageal reflux disease, and gastritis. From this point of view, doing okay. Decrease prednisone to 40 mg daily. Continue cough suppressor. Gastroesophageal reflux disease precautions. Gastric prophylaxis. Deep venous thrombosis prophylaxis. Fall precautions. Thank you and we will follow with you. Tia Godinez MD
[2018-08-10] MEDS: Insulin Detemir 100 units/ml Vial (Levemir) SC SCH (22:54)
[2018-08-11] MEDS: cefTRIAXone 1 gm 1 GM/100 ML BAG IVPB SCH (05:53)
[2018-08-11] MEDS: Sucralfate 1 gm/10 ml Oral Susp UD PO SCH ×4 (05:53→21:16)
[2018-08-11] MEDS: Pantoprazole 40 mg EC Tab PO SCH (05:54)
[2018-08-11] MEDS: Enoxaparin 120 mg Syringe SC SCH ×2 (06:14→17:46)
[2018-08-11] MEDS: Insulin Detemir 100 units/ml Vial (Levemir) SC SCH ×2 (06:32→21:50)
[2018-08-11] MEDS: Insulin Reg-HIGH-Coverage SC SCH ×4 (06:33→21:47)
[2018-08-11] MEDS: Acetylcysteine 20% Inhal Soln (4ml) IH SCH ×2 (07:25→13:30)
[2018-08-11] MEDS: Ipratropium 0.02% Inhal Soln (0.5 mg/2.5 ml) UD IH SCH ×4 (07:25→19:31)
[2018-08-11] MEDS: Levalbuterol 0.63 MG/3 ML Inhal Soln UD IH SCH ×3 (07:26→19:31)
--- NOTE | 2018-08-11 08:05 | CP.PCM.PN ---
<Deonte Bland - Last Filed: 08/11/18 09:45> Subjective - Date & Time of Evaluation Date of Evaluation: 08/11/18 Time of Evaluation: 05:20 - Subjective Subjective: Deonte Blnad D.O. PGY-3, Internal Medicine Resident, Dr. Villagomez's Service, Progress Note 58-year-old male with a past medical history COPD on home oxygen at 2 L, heart failure with reduced ejection fraction of approximately 36% status post AICD, WESLY, CAD status post PCI, diabetes type 2, atrial fibrillation and previous DVT on Coumadin therapy who originally presented with SOB, now being in the transitional care unit for continued physical therapy. Patient was seen and examined at bedside. Breathing comfortably. No acute issues. Participating in therapy. Objective - Vital Signs/Intake and Output Vital Signs (last 24 hours): Temp Pulse Resp BP Pulse Ox 98.1 F 69 18 119/66 97 08/10/18 16:00 08/10/18 16:00 08/10/18 16:00 08/10/18 16:00 08/10/18 16:00 Intake and Output: 08/11/18 08/11/18 06:59 18:59 Intake Total 460 Balance 460 - Medications Medications: Current Medications Acetaminophen (Tylenol 325mg Tab) 650 mg PO Q4H PRN; Protocol PRN Reason: Pain, Mild (1-3) Acetylcysteine (Acetylcysteine 20%) 4 ml IH [id number] [facility] Last Admin: 08/11/18 07:25 Dose: Not Given Al Hydrox/Mg Hydrox/Simethicone (Maalox Plus 30 Ml) 10 ml PO Q6 PRN; Protocol PRN Reason: Indigestion / Heartburn Last Admin: 08/10/18 08:01 Dose: 10 ml Albuterol Sulfate (Albuterol 0.5% Inhal [place] (2.5 Mg/0.5 Ml) Ud) 2.5 mg IH [id number] PRN; Protocol PRN Reason: Shortness of Breath Albuterol/Ipratropium (Duoneb 3 Mg/0.5 Mg (3 Ml) Ud) 3 ml IH Q2H PRN; Protocol PRN Reason: Shortness of Breath Azithromycin (Zithromax) 500 mg PO DAILY [facility]; Protocol Last Admin: 08/10/18 10:22 Dose: 500 mg Benzonatate (Tessalon Perles) 200 mg PO TID [facility]; Protocol Last Admin: 08/10/18 17:32 Dose: Not Given Carbamide Peroxide (Debrox Ear Drops) 0 ml AU BID [facility]; Protocol Last Admin: 08/10/18 17:32 Dose: Not Given Diltiazem HCl (Cardizem) 30 mg PO BID [facility]; Protocol Last Admin: 08/10/18 17:31 Dose: 30 mg Diphenhydramine HCl (Benadryl) 25 mg PO HS [facility]; Protocol Last Admin: 08/10/18 22:56 Dose: 25 mg Enoxaparin Sodium (Lovenox) 120 mg SC Q12H [facility]; Protocol Last Admin: 08/11/18 06:14 Dose: 120 mg Fluticasone Propionate (Flonase) 1 actuation NS BID [facility]; Protocol Last Admin: 08/10/18 17:30 Dose: 1 spr Folic Acid (Folic Acid) 1 mg PO DAILY [facility]; Protocol Last Admin: 08/10/18 10:22 Dose: 1 mg Gabapentin (Neurontin) 300 mg PO BID [facility]; Protocol Last Admin: 08/10/18 17:31 Dose: 300 mg Glimepiride (Amaryl) 4 mg PO 0800 [facility]; Protocol Last Admin: 08/10/18 08:00 Dose: 4 mg Ceftriaxone Sodium (Rocephin 1 Gram Ivpb) 1 gm in 100 mls @ 100 mls/hr IVPB 0600 [facility]; Protocol Last Admin: 08/11/18 05:53 Dose: 100 mls/hr Insulin Detemir (Levemir) 25 unit SC ACB [facility]; Protocol Last Admin: 08/11/18 06:32 Dose: 25 units Insulin Detemir (Levemir) 25 unit SC HS [facility]; Protocol Last Admin: 08/10/18 22:54 Dose: 25 units Insulin Human Regular (Humulin R High) 0 units SC ACHS [facility]; Protocol Last Admin: 08/11/18 06:33 Dose: Not Given Ipratropium [place] (Atrovent) 0.5 mg IH TIDRESP [facility]; Protocol Last Admin: 08/11/18 07:25 Dose: Not Given Levalbuterol HCl (Xopenex) 0.63 mg IH TIDRESP [facility]; Protocol Last Admin: 08/11/18 07:26 Dose: Not Given Lisinopril (Zestril) 2.5 mg PO DAILY [facility]; Protocol Last Admin: 08/10/18 10:22 Dose: 2.5 mg Lorazepam (Ativan) 1 mg PO BID PRN; Protocol PRN Reason: Anxiety Last Admin: 08/10/18 22:00 Dose: 1 mg Metformin HCl (Glucophage) 1,000 mg PO 0800,1700 [facility]; Protocol Last Admin: 08/10/18 17:31 Dose: 1,000 mg Montelukast Sodium (Singulair) 10 mg PO HS [facility]; Protocol Last Admin: 08/10/18 22:02 Dose: 10 mg Oxycodone/Acetaminophen (Percocet 10/325 Mg Tab) 1 tab PO Q12 PRN; Protocol PRN Reason: Pain, moderate (4-7) Last Admin: 08/09/18 10:21 Dose: 1 tab Pantoprazole Sodium (Protonix Ec Tab) 40 mg PO 0600 [facility]; Protocol Last Admin: 08/11/18 05:54 Dose: 40 mg Prednisone (Prednisone Tab) 40 mg PO DAILY [facility] Roflumilast (Daliresp) 250 mcg PO DAILY [facility]; Protocol Last Admin: 08/10/18 10:23 Dose: 250 mcg Ropinirole HCl (Requip) 0.5 mg PO HS [facility]; Protocol Last Admin: 08/10/18 22:51 Dose: 0.5 mg Sucralfate (Carafate Oral Susp) 1 gm PO 0630,1130,1630,2200 [facility] Last Admin: 08/11/18 05:53 Dose: 1 gm Trazodone HCl (Desyrel) 150 mg PO HS [facility]; Protocol Last Admin: 08/10/18 22:01 Dose: 150 mg Warfarin Sodium (Coumadin) 10 mg PO 1800 [facility]; Protocol - Labs Labs: 08/10/18 07:00 08/10/18 07:00 PT 16.3 SECONDS (9.4-12.5) H 08/10/18 07:00 INR 1.44 08/10/18 07:00 APTT 28.3 Seconds (26.9-38.3) 08/09/18 05:30 - Constitutional Appears: Non-toxic, Chronically Ill, obese male - Head Exam Head Exam: ATRAUMATIC, NORMOCEPHALIC - Eye Exam Eye Exam: EOMI. absent: Scleral icterus - ENT Exam ENT Exam: Mucous Membranes Moist, normal mucosa - Respiratory Exam Respiratory Exam: Wheezing mildly bibasilar. absent: Rales, Rhonchi - Cardiovascular Exam Cardiovascular Exam: +S1, +S2. absent: Gallop, Rubs - GI/Abdominal Exam GI & Abdominal Exam: Normal Bowel Sounds, Soft. absent: Distended, Tenderness - Extremities Exam Extremities exam: abrasion of left knee, healing - Neurological Exam Neurological exam: Alert, Oriented x3 - Psychiatric Exam Psychiatric exam: Normal Affect, Normal Mood - Skin Skin Exam: Dry, Warm Assessment and Plan - Assessment and Plan (Free Text) Assessment: 58-year-old male with a past medical history COPD on home oxygen at 2 L, heart failure with reduced ejection fraction of approximately 36% status post AICD, WESLY, CAD status post PCI, diabetes type 2, atrial fibrillation and previous DVT on Coumadin therapy who originally presented with SOB, now being in the transitional care unit for continued physical therapy. Plan: 1. Deconditioning 2. Chest discomfort 3. Chronic obstructive pulmonary disease 3. Heart failure with reduced ejection fraction 4. CAD status post stents 5. Diabetes type 2 6. Atrial fibrillation on Coumadin 7. DVT 8. Anxiety 9. Neuropathic pain 10. RLS Participating with physical therapy. For his COPD pulmonary is following and his prednisone has been decreased to 40 once a day. He also continues on Roflumilast, montelukast, scheduled and as needed nebulizers. He is currently also on azithromycin and ceftriaxone. For his chest discomfort he is continued on carafate and protonix. Cardiology following. Currently his heart rate is controlled on diltiazem for his atrial fibrillation. INR not within range at this time. Will start patient on therapeutic Lovenox and increase his warfarin to 8 mg at night. Pain continues to be controlled with gabapentin and as needed oxycodone. For his anxiety is currently on trazodone and as needed lorazepam. For his heart failure he continues on lisinopril. For his diabetes he is currently on metformin, Amaryl, and Levemir as well as a regular insulin sliding scale, although he has not needed supplemental insulin. Last blood sugar readings over 24 hours have been from 100-135. Now that he is on less steroids we will decrease his Levemir from 25 to 22 units. We will continue to monitor his blood sugars closely. For his restless legs he continues on Requip. Continue to monitor clinical status. Patient was seen and examined and case discussed with attending physician. <HernandoAxel - Last Filed: 08/11/18 15:11> Objective - Vital Signs/Intake and Output Vital Signs (last 24 hours): Temp Pulse Resp BP Pulse Ox 98.1 F 71 18 99/69 L 97 08/10/18 16:00 08/11/18 10:00 08/10/18 16:00 08/11/18 10:00 08/10/18 16:00 Intake and Output: 08/11/18 08/11/18 06:59 18:59 Intake Total 460 460 Balance 460 460 - Medications Medications: Current Medications Acetaminophen (Tylenol 325mg Tab) 650 mg PO Q4H PRN; Protocol PRN Reason: Pain, Mild (1-3) Acetylcysteine (Acetylcysteine 20%) 4 ml IH [id number] [facility] Last Admin: 08/11/18 13:30 Dose: Not Given Al Hydrox/Mg Hydrox/Simethicone (Maalox Plus 30 Ml) 10 ml PO Q6 PRN; Protocol PRN Reason: Indigestion / Heartburn Last Admin: 08/10/18 08:01 Dose: 10 ml Albuterol Sulfate (Albuterol 0.5% Inhal [place] (2.5 Mg/0.5 Ml) Ud) 2.5 mg IH [id number] PRN; Protocol PRN Reason: Shortness of Breath Albuterol/Ipratropium (Duoneb 3 Mg/0.5 Mg (3 Ml) Ud) 3 ml IH Q2H PRN; Protocol PRN Reason: Shortness of Breath Azithromycin (Zithromax) 500 mg PO DAILY [facility]; Protocol Last Admin: 08/11/18 09:56 Dose: 500 mg Benzonatate (Tessalon Perles) 200 mg PO TID [facility]; Protocol Last Admin: 08/11/18 13:22 Dose: Not Given Carbamide Peroxide (Debrox Ear Drops) 0 ml AU BID [facility]; Protocol Last Admin: 08/11/18 09:59 Dose: Not Given Diltiazem HCl (Cardizem) 30 mg PO BID [facility]; Protocol Diphenhydramine HCl (Benadryl) 25 mg PO HS [facility]; Protocol Last Admin: 08/10/18 22:56 Dose: 25 mg Enoxaparin Sodium (Lovenox) 120 mg SC Q12H [facility]; Protocol Last Admin: 08/11/18 06:14 Dose: 120 mg Fluticasone Propionate (Flonase) 1 actuation NS BID [facility]; Protocol Last Admin: 08/11/18 09:59 Dose: 1 spr Folic Acid (Folic Acid) 1 mg PO DAILY [facility]; Protocol Last Admin: 08/11/18 09:57 Dose: 1 mg Gabapentin (Neurontin) 300 mg PO BID [facility]; Protocol Last Admin: 08/11/18 09:57 Dose: 300 mg Glimepiride (Amaryl) 4 mg PO 0800 [facility]; Protocol Last Admin: 08/11/18 08:36 Dose: 4 mg Ceftriaxone Sodium (Rocephin 1 Gram Ivpb) 1 gm in 100 mls @ 100 mls/hr IVPB 0600 [facility]; Protocol Last Admin: 08/11/18 05:53 Dose: 100 mls/hr Insulin Detemir (Levemir) 22 unit SC ACB [facility]; Protocol Insulin Detemir (Levemir) 22 unit SC HS [facility]; Protocol Insulin Human Regular (Humulin R High) 0 units SC ACHS [facility]; Protocol Last Admin: 08/11/18 11:37 Dose: Not Given Ipratropium [place] (Atrovent) 0.5 mg IH TIDRESP [facility]; Protocol Last Admin: 08/11/18 13:30 Dose: Not Given Levalbuterol HCl (Xopenex) 0.63 mg IH TIDRESP [facility]; Protocol Last Admin: 08/11/18 13:30 Dose: Not Given Lisinopril (Zestril) 2.5 mg PO DAILY [facility]; Protocol Lorazepam (Ativan) 1 mg PO BID PRN; Protocol PRN Reason: Anxiety Last Admin: 08/10/18 22:00 Dose: 1 mg Metformin HCl (Glucophage) 1,000 mg PO 0800,1700 [facility]; Protocol Last Admin: 08/11/18 08:37 Dose: 1,000 mg Montelukast Sodium (Singulair) 10 mg PO HS [facility]; Protocol Last Admin: 08/10/18 22:02 Dose: 10 mg Oxycodone/Acetaminophen (Percocet 10/325 Mg Tab) 1 tab PO Q12 PRN; Protocol PRN Reason: Pain, moderate (4-7) Last Admin: 08/09/18 10:21 Dose: 1 tab Pantoprazole Sodium (Protonix Ec Tab) 40 mg PO 0600 [facility]; Protocol Last Admin: 08/11/18 05:54 Dose: 40 mg Prednisone (Prednisone Tab) 40 mg PO DAILY [facility] Last Admin: 08/11/18 09:57 Dose: 40 mg Roflumilast (Daliresp) 250 mcg PO DAILY [facility]; Protocol Last Admin: 08/11/18 09:58 Dose: 250 mcg Ropinirole HCl (Requip) 0.5 mg PO HS [facility]; Protocol Last Admin: 08/10/18 22:51 Dose: 0.5 mg Sucralfate (Carafate Oral Susp) 1 gm PO 0630,1130,1630,2200 [facility] Last Admin: 08/11/18 12:14 Dose: 1 gm Trazodone HCl (Desyrel) 150 mg PO HS [facility]; Protocol Last Admin: 08/10/18 22:01 Dose: 150 mg Warfarin Sodium (Coumadin) 10 mg PO 1800 [facility]; Protocol - Labs Labs: 08/10/18 07:00 08/10/18 07:00 PT 16.3 SECONDS (9.4-12.5) H 08/10/18 07:00 INR 1.44 08/10/18 07:00 APTT 28.3 Seconds (26.9-38.3) 08/09/18 05:30 Assessment and Plan - Assessment and Plan (Free Text) Plan: Pt seen and examined by me. I have reviewed the note of the electromedical service engineer and I agree with it. I have discussed the assessment and plan with the resident. I have reviewed the medications and the last labs.
[2018-08-11] MEDS: Fluticasone Nasal 50 mcg/Spray NS SCH ×2 (09:59→17:44)
--- NOTE | 2018-08-11 16:18 | PN ---
DATE: 08/11/2018 REASON FOR CONSULTATION AND FOLLOWUP: Cardiac evaluation, shortness of breath, history of AFib status post failed CORA cardioversion, failed radiofrequency ablation, admitted with acute bronchitis. Now, the patient is in transitional care unit to continue with care. SUBJECTIVE: The patient denies any chest pain, shortness of breath, or any palpitations. Day before, the patient was complaining of chest pain. Troponin remains negative. No new EKG changes noted. So far, no evidence of acute NH. PHYSICAL EXAMINATION: VITAL SIGNS: Temperature afebrile, heart rate , and blood pressure 119/96. HEENT: PERRLA. Extraocular muscles intact. NECK: Supple. No carotid bruits or thyromegaly. CHEST: Clear to auscultation. HEART: S1 and S2, regular. ABDOMEN: Soft. EXTREMITIES: Clubbing and cyanosis negative. LABORATORY DATA: Blood workup as follows: WBC as of 08/10 115, hemoglobin 14.8, hematocrit 44.8, and platelet count 185. Chemistry shows sodium 131, potassium 5, chloride 100, carbon dioxide 28, anion gap of 16, BUN , creatinine of 1.1. Troponin is 0.04. IMPRESSION: A 58-year-old male with past medical history significant for nonobstructive coronary artery disease status post cardiac catheterization x3; history of atrial fibrillation, status post failed transesophageal echocardiography cardioversion, status post radiofrequency ablation failed, did come back again in atrial fibrillation, status post automatic implantable cardioverter defibrillator; cardiomyopathy; history of peripheral arterial disease, status post acute limb ischemia, status post deep venous thrombosis. RECOMMENDATIONS: Continue anticoagulation, goal is to keep INR between 2 to 2.5. Since INR is subtherapeutic, continue Lovenox as a bridge. No evidence of acute NH. Continue Lovenox as mentioned. Hold antihypertensive medication. The patient is running low blood pressure, we will put holding parameter with lisinopril as well as Cardizem. We will also put lisinopril holding parameter less than 1 time. We will skip Lasix for now, because the patient is running low blood pressure. We will follow with you. Thank you, Dr. Villagomez, for providing us the opportunity in taking care of the patient, Pete Johnson. Tia Rajan MD [facility] # [id number]
--- NOTE | 2018-08-11 19:47 | PN ---
DATE: 08/11/2018 SUBJECTIVE: The patient was seen and examined. I do agree with the note of the biomedical equipment support specialist. I was involved in the plan of care. The patient is getting physical therapy because of deconditioning. He is on Carafate and Protonix because he was having chest pain that was most likely related to reflux. The patient has an acute COPD exacerbation that is improving. He is on metformin for his diabetes as well as Amaryl and Levemir. He has coronary artery disease and is receiving aspirin. The patient is on roflumilast and montelukast for the COPD. He is on Coumadin. His INR is subtherapeutic and his Coumadin dosage has been decreased. He has anxiety and he gets Ativan for his anxiety. He continues to have a cough. It is not as productive as it was before. He is on Cardizem for his atrial fibrillation. He is receiving trazodone for sleep. The patient is on Rocephin for antibiotics. I will discontinue his Rocephin at this point and place him on Vantin. Axel Villagomez MD
[2018-08-11] MEDS: Oxycodone/Acetaminophen 10/325 mg Tab PO PRN (21:16)
[2018-08-11] MEDS: Cefpodoxime (Vantin) 100 mg Tab PO SCH (21:17)
--- NOTE | 2018-08-11 21:45 | PN ---
DATE: 08/11/2018 PULMONARY PROGRESS NOTE REFERRING PHYSICIAN: Dr. Villagomez. SUBJECTIVE: He is a out of bed to chair, having lunch, night was unremarkable. Feels a little better. Still has some cough and sputum production. No more chest pain. No nausea. No vomiting. No diarrhea. No leg pain or leg swelling. PHYSICAL EXAMINATION GENERAL: No acute distress. VITAL SIGNS: Temperature is 98, heart rate is 71, respiratory rate is 18, blood pressure 99/69, and pulse ox 97% on room air. HEENT: Moist mucous membranes. Crowded airway. NECK: Supple. No JVD. LUNGS: Fair airflow with rhonchi. HEART: S1 and S2. ABDOMEN: Soft and nontender. No organomegaly. EXTREMITIES: There is no edema. NEUROLOGIC: Awake, alert, and follows simple commands. LABORATORY DATA: Reviewed. Shows blood sugar today is 104. INR yesterday 1.4. MEDICATIONS: Mucomyst inhaled twice a day, albuterol/Atrovent nebulizer every 6 hours p.r.n., glimepiride 4 mg daily, lorazepam 1 mg twice a day p.r.n., Atrovent 0.5 mg three times a day, Benadryl 25 mg at bedtime, Carafate 1 g q.i.d., Cardizem 30 mg twice a day, Coumadin 10 mg will be given, Daliresp 250 mcg daily, also getting Debrox ear drops, trazodone 150 mg at bedtime, DuoNeb every hours p.r.n., Flonase one spray each nostril twice a day, folic acid 1 mg daily, metformin 1000 mg twice a day, insulin coverage, Levemir 22 units subcutaneously a.c., Levemir 22 units at bedtime, Lovenox 120 mg twice a day, Maalox p.r.n. basis, gabapentin 300 mg twice a day, Percocet 1 tab every 12 hours , prednisone 40 mg daily, Protonix 40 mg daily, Requip 0.5 mg at bedtime, Singulair 10 mg daily, Tessalon Perles 3 times a day, Vantin 100 mg twice a day, Xopenex inhaled 3 times a day, Zestril 2.5 mg daily and Zithromax 500 mg daily. IMPRESSION AND PLAN: Chronic obstructive lung disease, congestive heart failure, anemia, cardiomyopathy, coronary artery disease, history of coronary stent, sleep apnea syndrome, diabetes, atrial fibrillation, peripheral neuropathy, anxiety disorder, probably have gastroesophageal reflux disease, gastritis. Pulmonary point of view, he is doing well. Continue p.o. and inhaled bronchodilator, keep head at 45 degrees. Gastric prophylaxis. On anticoagulation. Thank you and we will follow with you. Tia Godinez MD
[2018-08-12] MEDS: Sucralfate 1 gm/10 ml Oral Susp UD PO SCH ×4 (05:46→21:56)
[2018-08-12] MEDS: Pantoprazole 40 mg EC Tab PO SCH (05:46)
[2018-08-12] MEDS: Ipratropium 0.02% Inhal Soln (0.5 mg/2.5 ml) UD IH SCH ×4 (07:21→19:44)
[2018-08-12] MEDS: Budesonide 0.5 mg/2 ml Inhal Susp UD IH SCH ×2 (07:21→14:10)
[2018-08-12] MEDS: Levalbuterol 0.63 MG/3 ML Inhal Soln UD IH SCH ×3 (07:21→19:45)
[2018-08-12 08:06] LABS: BASO # 0.02 K/mm3 (0.0-2.0); BASO % 0.1 % (0.0-3.0); EOS # 0.2 (0.0-0.7); EOS % 0.9 % (1.5-5.0); HEMOGLOBIN 14.1 g/dL (14.0-18.0); LYMPH # 2.1 (1.2-3.4); LYMPH % 12.9 % (22.0-35.0); MEAN CELL VOLUME 83.8 fl (80.0-105.0); MEAN CORPUSCULAR HEMOGLOBIN 27.9 pg (25.0-35.0); MEAN CORPUSCULAR HGB CONC 33.3 g/dl (31.0-37.0); MEAN PLATELET VOLUME 9.6 fl (7.0-11.0); MONO # 1.1 (0.1-0.6); MONO % 6.7 % (1.0-6.0); RBC 5.05 10^6/uL (3.5-6.1); RED CELL DISTRIBUTION WIDTH 17.8 % (11.5-14.5); WHITE BLOOD COUNT 16.6 10^3/uL (4.5-11.0)
[2018-08-12 08:14] LABS: INR 1.77
[2018-08-12 08:15] LABS: BLOOD UREA NITROGEN 47 mg/dL (7-21); CALCIUM 9.3 mg/dL (8.4-10.5); GFR NON-AFRICAN AMERICAN > 60
[2018-08-12] MEDS: Insulin Detemir 100 units/ml Vial (Levemir) SC SCH ×2 (08:16→21:59)
[2018-08-12] MEDS: Insulin Reg-HIGH-Coverage SC SCH ×4 (08:16→21:57)
--- NOTE | 2018-08-12 09:36 | PN ---
DATE: 08/12/2018 PULMONARY PROGRESS NOTE REFERRING PHYSICIAN: Axel Villagomez MD. SUBJECTIVE: The patient is seen sitting in armchair in room. No acute distress. No overnight events reported. He reports still having some cough, sputum production, but little bit better this morning. The patient has been refusing nebulizer treatments per staff. No headache, rhinitis, chest pain, abdominal pain, nausea, vomiting, diarrhea, leg pain or leg swelling reported. No complaint of shortness of breath. OBJECTIVE: VITAL SIGNS: Blood pressure 112/69, pulse 72, temperature 98.1, oxygen saturation 97% on room air. GENERAL: No acute distress. HEENT: Moist mucous membranes. Crowded airway. NECK: Supple. No JVD. LUNGS: Fair airflow bilaterally. Few scattered rhonchi. CARDIOVASCULAR: S1 and S2. ABDOMEN: Soft and nontender. No distention. No organomegaly. EXTREMITIES: No bilateral lower extremity edema. NEUROLOGIC: Awake, alert and verbal. Following commands. MEDICATIONS: Reviewed. Tylenol 650 every 4 hours p.r.n., Maalox 10 mL every 6 hours p.r.n., DuoNeb 3 mL inhalation every 2 hours p.r.n., Zithromax 500 mg daily, Tessalon Perles 200 mg 3 times a day, Pulmicort 0.5 mg inhalation every 8 hours, Debrox eardrops twice a day, Vantin 100 mg every 12 hours, Cardizem 30 mg twice a day, Benadryl 25 mg at bedtime, Lovenox 120 mg subcutaneous every 12 hours, Flonase nasal spray twice a day, folic acid 1 mg daily, gabapentin 300 mg twice a day, glimepiride 4 mg daily, Levemir 22 units a.c. and Levemir 22 units at bedtime, Humulin R sliding scale a.c. and at bedtime, Atrovent 0.5 mg inhalation three times a day, Xopenex 0.63 mg inhalation 3 times a day, lisinopril 2.5. mg daily, Ativan 1 mg twice a day p.r.n., metformin 1000 mg twice a day, Singulair 10 mg at bedtime., Percocet 10/325 mg every 12 hours p.r.n., Protonix 40 mg daily, prednisone 40 mg daily, Daliresp 250 mcg daily, ReQuip 0.5 mg p.o. at bedtime, Carafate 1 g four times a day, trazodone 150 mg at bedtime and Coumadin 10 mg daily. LABORATORY DATA: Reviewed. POC glucose 89. Other labs drawn today, still pending. IMPRESSION AND PLAN: Chronic obstructive lung disease, congestive heart failure, anemia, cardiomyopathy, coronary artery disease, history of coronary stent, sleep apnea syndrome, diabetes, atrial fibrillation, peripheral neuropathy, anxiety disorder, gastroesophageal reflux disease and gastritis. Pulmonary point of view, continue inhaled bronchodilators. Continue current steroid dosing. Head of bed elevated at 45 degrees. Gastric prophylaxis. Gastroesophageal reflux disease precautions. The patient is currently on anticoagulation therapy. Discussed with the patient to not refuse nebulizer treatments as it will help with chronic lung disease. The patient verbalize understanding. Fall precautions. Continue physical therapy. The patient was seen and examined with Dr. Godinez. Discussed assessment and plan as described above. The patient was seen and examined by Trudy Singh, nurse practitioner. Discussed assessment and plan as described above. Thank you for this consult and we will follow with you. Trudy Singh APN Tia Godinez MD
[2018-08-12] MEDS: Fluticasone Nasal 50 mcg/Spray NS SCH ×2 (10:24→17:20)
[2018-08-12] MEDS: Cefpodoxime (Vantin) 100 mg Tab PO SCH ×2 (10:27→22:00)
--- NOTE | 2018-08-12 12:02 | CP.PCM.PN ---
<Deonte Bland - Last Filed: 08/12/18 11:46> Subjective - Date & Time of Evaluation Date of Evaluation: 08/12/18 Time of Evaluation: 07:30 - Subjective Subjective: Deonte Bland D.O. PGY-3, Internal Medicine Resident, Dr. Villagomez's Service, Progress Note 58-year-old male with a past medical history COPD on home oxygen at 2 L, heart failure with reduced ejection fraction of approximately 36% status post AICD, WESLY, CAD status post PCI, diabetes type 2, atrial fibrillation and previous DVT on Coumadin therapy who originally presented with SOB, now being in the transitional care unit for continued physical therapy. Patient was seen and examined at bedside. States hasn't been able to sleep well. Admits to using his TV and phone up until he's right about to go to sleep. Also states he drinks coffee all day long, even at night. Objective - Vital Signs/Intake and Output Vital Signs (last 24 hours): Temp Pulse Resp BP Pulse Ox 98.1 F 70 18 125/84 94 L 08/10/18 16:00 08/12/18 10:27 08/10/18 16:00 08/12/18 10:27 08/12/18 10:21 Intake and Output: 08/12/18 08/12/18 06:59 18:59 Intake Total 420 Balance 420 - Medications Medications: Current Medications Acetaminophen (Tylenol 325mg Tab) 650 mg PO Q4H PRN; Protocol PRN Reason: Pain, Mild (1-3) Al Hydrox/Mg Hydrox/Simethicone (Maalox Plus 30 Ml) 10 ml PO Q6 PRN; Protocol PRN Reason: Indigestion / Heartburn Last Admin: 08/10/18 08:01 Dose: 10 ml Albuterol/Ipratropium (Duoneb 3 Mg/0.5 Mg (3 Ml) Ud) 3 ml IH Q2H PRN; Protocol PRN Reason: Shortness of Breath Azithromycin (Zithromax) 500 mg PO DAILY [facility]; Protocol Last Admin: 08/12/18 10:28 Dose: 500 mg Benzonatate (Tessalon Perles) 200 mg PO TID [facility]; Protocol Last Admin: 08/12/18 10:26 Dose: 200 mg Budesonide (Pulmicort Respules) 0.5 mg IH Q8 [facility] Last Admin: 08/12/18 07:21 Dose: 0.5 mg Carbamide Peroxide (Debrox Ear Drops) 0 ml AU BID [facility]; Protocol Last Admin: 08/12/18 10:24 Dose: Not Given Cefpodoxime Proxetil (Vantin) 100 mg PO Q12 [facility]; Protocol Last Admin: 08/12/18 10:27 Dose: 100 mg Diltiazem HCl (Cardizem) 30 mg PO BID [facility]; Protocol Last Admin: 08/12/18 10:22 Dose: 30 mg Diphenhydramine HCl (Benadryl) 25 mg PO HS [facility]; Protocol Last Admin: 08/11/18 21:17 Dose: 25 mg Enoxaparin Sodium (Lovenox) 120 mg SC Q12H [facility]; Protocol Last Admin: 08/11/18 17:46 Dose: 120 mg Fluticasone Propionate (Flonase) 1 actuation NS BID [facility]; Protocol Last Admin: 08/12/18 10:24 Dose: 1 spr Folic Acid (Folic Acid) 1 mg PO DAILY [facility]; Protocol Last Admin: 08/12/18 10:25 Dose: 1 mg Furosemide (Lasix) 40 mg PO 0800,1400 [facility] Gabapentin (Neurontin) 300 mg PO BID [facility]; Protocol Last Admin: 08/12/18 10:25 Dose: 300 mg Glimepiride (Amaryl) 4 mg PO 0800 [facility]; Protocol Last Admin: 08/12/18 08:14 Dose: 4 mg Insulin Detemir (Levemir) 22 unit SC ACB [facility]; Protocol Last Admin: 08/12/18 08:16 Dose: Not Given Insulin Detemir (Levemir) 22 unit SC HS [facility]; Protocol Last Admin: 08/11/18 21:50 Dose: 22 unit Insulin Human Regular (Humulin R High) 0 units SC ACHS [facility]; Protocol Last Admin: 08/12/18 08:16 Dose: Not Given Ipratropium [place] (Atrovent) 0.5 mg IH TIDRESP [facility]; Protocol Last Admin: 08/12/18 07:21 Dose: 0.5 mg Levalbuterol HCl (Xopenex) 0.63 mg IH TIDRESP [facility] Last Admin: 08/12/18 07:21 Dose: 0.63 mg Lisinopril (Zestril) 2.5 mg PO DAILY [facility]; Protocol Last Admin: 08/12/18 10:27 Dose: 2.5 mg Lorazepam (Ativan) 1 mg PO BID PRN; Protocol PRN Reason: Anxiety Last Admin: 08/12/18 10:34 Dose: 1 mg Metformin HCl (Glucophage) 1,000 mg PO 0800,1700 [facility]; Protocol Last Admin: 08/12/18 08:15 Dose: 1,000 mg Montelukast Sodium (Singulair) 10 mg PO HS [facility]; Protocol Last Admin: 08/11/18 21:17 Dose: 10 mg Oxycodone/Acetaminophen (Percocet 10/325 Mg Tab) 1 tab PO Q12 PRN; Protocol PRN Reason: Pain, moderate (4-7) Last Admin: 08/11/18 21:16 Dose: 1 tab Pantoprazole Sodium (Protonix Ec Tab) 40 mg PO 0600 [facility]; Protocol Last Admin: 08/12/18 05:46 Dose: 40 mg Prednisone (Prednisone Tab) 40 mg PO DAILY [facility] Last Admin: 08/12/18 10:26 Dose: 40 mg Roflumilast (Daliresp) 250 mcg PO DAILY [facility]; Protocol Last Admin: 08/12/18 10:23 Dose: 250 mcg Ropinirole HCl (Requip) 0.5 mg PO HS [facility]; Protocol Last Admin: 08/11/18 21:17 Dose: 0.5 mg Sucralfate (Carafate Oral Susp) 1 gm PO 0630,1130,1630,2200 [facility] Last Admin: 08/12/18 05:46 Dose: 1 gm Trazodone HCl (Desyrel) 150 mg PO HS [facility]; Protocol Last Admin: 08/11/18 21:17 Dose: 150 mg Warfarin Sodium (Coumadin) 10 mg PO 1800 [facility]; Protocol Last Admin: 08/11/18 17:41 Dose: 10 mg - Labs Labs: 08/12/18 07:50 08/12/18 07:50 PT 20.0 SECONDS (9.4-12.5) H 08/12/18 07:50 INR 1.77 08/12/18 07:50 APTT 34.0 Seconds (26.9-38.3) 08/12/18 07:50 - Constitutional Appears: Non-toxic, Chronically Ill, obese male - Head Exam Head Exam: ATRAUMATIC, NORMOCEPHALIC - Eye Exam Eye Exam: EOMI. absent: Scleral icterus - ENT Exam ENT Exam: Mucous Membranes Moist, normal mucosa - Respiratory Exam Respiratory Exam: Wheezing mildly bibasilar. absent: Rales, Rhonchi - Cardiovascular Exam Cardiovascular Exam: +S1, +S2. absent: Gallop, Rubs - GI/Abdominal Exam GI & Abdominal Exam: Normal Bowel Sounds, Soft. absent: Distended, Tenderness - Extremities Exam Extremities exam: abrasion of left knee, healing - Neurological Exam Neurological exam: Alert, Oriented x4 - Psychiatric Exam Psychiatric exam: Normal Affect, Normal Mood - Skin Skin Exam: left inner thigh/groin crease with 2 abrasions ~2cm the other ~1.5cm, clean, dry, no erythema, no bleeding, no drainage, nontender Assessment and Plan - Assessment and Plan (Free Text) Assessment: 58-year-old male with a past medical history COPD on home oxygen at 2 L, heart failure with reduced ejection fraction of approximately 36% status post AICD, WESLY, CAD status post PCI, diabetes type 2, atrial fibrillation and previous DVT on Coumadin therapy who originally presented with SOB, now being in the transitional care unit for continued physical therapy. Plan: 1. Deconditioning 2. Chest discomfort 3. Chronic obstructive pulmonary disease 3. Heart failure with reduced ejection fraction 4. CAD status post stents 5. Diabetes type 2 6. Atrial fibrillation on Coumadin 7. DVT 8. Anxiety/insomnia 9. Neuropathic pain 10. RLS 11. Inner thigh skin abrasion Active with physical therapy. For his COPD he is currently doing much better and moving more air. He continues on prednisone 40, Roflumilast, montelukast, Pulmicort as well as PRN breathing treatments. Pulmonary input reviewed and appreciated. He continues on azithromycin and his Rocephin was switched to Vantin. Chest discomfort has gotten better, continue with Carafate and Protonix. Cardiology following, note reviewed and recommendations appreciated. For his atrial fibrillation he continues on diltiazem and Lovenox and warfarin. We will check a PT and PTT tomorrow as his INR was subtherapeutic. For his chronic pain patient continues with gabapentin and as needed oxycodone. For his anxiety he is currently on trazodone and as needed lorazepam. Continue with lisinopril for his heart failure history. For his diabetes he is currently on metformin, Amaryl, and Levemir 22 units morning and night. Follow his blood sugars. 89 this morning. For his restless legs he is currently on equipment. Extensive discussion was had about sleep hygiene in relation to his difficulty with sleeping, including artificial light from the TV and cell phones as well as excessive caffeine ingestion. Patient amenable to making changes, will try to limit caffeine later in the day and will try turning off all electronics a few hours before bed and read with a reading light instead. Received a call from the nurse that patient had dried himself after a shower and had an abrasion in his left inner groin. Abrasion was seen on reexamination and there are 2 areas in the left groin/thigh crease with some skin loss but they are not actively bleeding and appear dry. Advised patient to use a gown and instead of reusing his underwear and to keep the area clean and dry. We will give bacitracin oin tment to apply only once a day as the area should remain open and dry. Patient was seen and examined and case discussed with attending physician. <Axel Villagomez S - Last Filed: 08/12/18 16:22> Objective - Vital Signs/Intake and Output Vital Signs (last 24 hours): Temp Pulse Resp BP Pulse Ox 98.1 F 70 18 120/89 94 L 08/10/18 16:00 08/12/18 10:27 08/10/18 16:00 08/12/18 13:40 08/12/18 10:21 Intake and Output: 08/12/18 08/12/18 06:59 18:59 Intake Total 420 Balance 420 - Medications Medications: Current Medications Acetaminophen (Tylenol 325mg Tab) 650 mg PO Q4H PRN; Protocol PRN Reason: Pain, Mild (1-3) Al Hydrox/Mg Hydrox/Simethicone (Maalox Plus 30 Ml) 10 ml PO Q6 PRN; Protocol PRN Reason: Indigestion / Heartburn Last Admin: 08/10/18 08:01 Dose: 10 ml Albuterol/Ipratropium (Duoneb 3 Mg/0.5 Mg (3 Ml) Ud) 3 ml IH Q2H PRN; Protocol PRN Reason: Shortness of Breath Azithromycin (Zithromax) 500 mg PO DAILY [facility]; Protocol Last Admin: 08/12/18 10:28 Dose: 500 mg Bacitracin (Bacitracin) 2 ea TOP DAILY [facility] Last Admin: 08/12/18 13:30 Dose: 2 ea Benzonatate (Tessalon Perles) 200 mg PO TID [facility]; Protocol Last Admin: 08/12/18 13:41 Dose: 200 mg Budesonide (Pulmicort Respules) 0.5 mg IH Q8 [facility] Last Admin: 08/12/18 14:10 Dose: Not Given Carbamide Peroxide (Debrox Ear Drops) 0 ml AU BID [facility]; Protocol Last Admin: 08/12/18 10:24 Dose: Not Given Cefpodoxime Proxetil (Vantin) 100 mg PO Q12 [facility]; Protocol Last Admin: 08/12/18 10:27 Dose: 100 mg Diltiazem HCl (Cardizem) 30 mg PO BID [facility]; Protocol Last Admin: 08/12/18 10:22 Dose: 30 mg Diphenhydramine HCl (Benadryl) 25 mg PO HS [facility]; Protocol Last Admin: 08/11/18 21:17 Dose: 25 mg Enoxaparin Sodium (Lovenox) 120 mg SC Q12H [facility]; Protocol Last Admin: 08/11/18 17:46 Dose: 120 mg Fluticasone Propionate (Flonase) 1 actuation NS BID [facility]; Protocol Last Admin: 08/12/18 10:24 Dose: 1 spr Folic Acid (Folic Acid) 1 mg PO DAILY [facility]; Protocol Last Admin: 08/12/18 10:25 Dose: 1 mg Furosemide (Lasix) 40 mg PO 0800,1400 [facility] Last Admin: 08/12/18 13:40 Dose: 40 mg Gabapentin (Neurontin) 300 mg PO BID [facility]; Protocol Last Admin: 08/12/18 10:25 Dose: 300 mg Glimepiride (Amaryl) 4 mg PO 0800 [facility]; Protocol Last Admin: 08/12/18 08:14 Dose: 4 mg Insulin Detemir (Levemir) 22 unit SC ACB [facility]; Protocol Last Admin: 08/12/18 08:16 Dose: Not Given Insulin Detemir (Levemir) 22 unit SC HS [facility]; Protocol Last Admin: 08/11/18 21:50 Dose: 22 unit Insulin Human Regular (Humulin R High) 0 units SC ACHS [facility]; Protocol Last Admin: 08/12/18 12:14 Dose: Not Given Ipratropium [place] (Atrovent) 0.5 mg IH TIDRESP [facility]; Protocol Last Admin: 08/12/18 14:09 Dose: 0.5 mg Levalbuterol HCl (Xopenex) 0.63 mg IH TIDRESP [facility] Last Admin: 08/12/18 14:09 Dose: 0.63 mg Lisinopril (Zestril) 2.5 mg PO DAILY [facility]; Protocol Last Admin: 08/12/18 10:27 Dose: 2.5 mg Lorazepam (Ativan) 1 mg PO BID PRN; Protocol PRN Reason: Anxiety Last Admin: 08/12/18 10:34 Dose: 1 mg Metformin HCl (Glucophage) 1,000 mg PO 0800,1700 [facility]; Protocol Last Admin: 08/12/18 08:15 Dose: 1,000 mg Montelukast Sodium (Singulair) 10 mg PO HS [facility]; Protocol Last Admin: 08/11/18 21:17 Dose: 10 mg Oxycodone/Acetaminophen (Percocet 10/325 Mg Tab) 1 tab PO Q12 PRN; Protocol PRN Reason: Pain, moderate (4-7) Last Admin: 08/11/18 21:16 Dose: 1 tab Pantoprazole Sodium (Protonix Ec Tab) 40 mg PO 0600 [facility]; Protocol Last Admin: 08/12/18 05:46 Dose: 40 mg Prednisone (Prednisone Tab) 40 mg PO DAILY [facility] Last Admin: 08/12/18 10:26 Dose: 40 mg Roflumilast (Daliresp) 250 mcg PO DAILY [facility]; Protocol Last Admin: 08/12/18 10:23 Dose: 250 mcg Ropinirole HCl (Requip) 0.5 mg PO HS [facility]; Protocol Last Admin: 08/11/18 21:17 Dose: 0.5 mg Sucralfate (Carafate Oral Susp) 1 gm PO 0630,1130,1630,2200 [facility] Last Admin: 08/12/18 12:09 Dose: 1 gm Trazodone HCl (Desyrel) 150 mg PO HS [facility]; Protocol Last Admin: 08/11/18 21:17 Dose: 150 mg Warfarin Sodium (Coumadin) 10 mg PO 1800 [facility]; Protocol Last Admin: 08/11/18 17:41 Dose: 10 mg - Labs Labs: 08/12/18 07:50 08/12/18 07:50 PT 20.0 SECONDS (9.4-12.5) H 08/12/18 07:50 INR 1.77 08/12/18 07:50 APTT 34.0 Seconds (26.9-38.3) 08/12/18 07:50 Assessment and Plan - Assessment and Plan (Free Text) Plan: Pt seen and examined by me. I have reviewed the note of the medical translator and I agree with it. I have discussed the assessment and plan with the resident. I have reviewed the medications and the last labs.
[2018-08-12] MEDS: Bacitracin 500 Units/gm Oint Foilpak UD TOP SCH (13:30)
--- NOTE | 2018-08-12 14:12 | PN ---
DATE: 08/12/2018 REASON FOR CONSULTATION AND FOLLOWUP: Cardiac evaluation, shortness of breath, history of AFib, status post failed CORA cardioversion, status post failed radiofrequency ablation, admitted with acute bronchitis. Now, the patient is in Transitional Care Unit to continue with care. SUBJECTIVE: The patient denies any chest pain, shortness of breath, or any palpitations. PHYSICAL EXAMINATION: GENERAL: Not in apparent distress. VITAL SIGNS: Temperature afebrile, heart rate 70, and blood pressure 125/84. HEENT: PERRLA. Extraocular muscles intact. NECK: Supple. No carotid bruits or thyromegaly. CHEST: Clear to auscultation. HEART: S1 and S2, regular. ABDOMEN: Soft. EXTREMITIES: Clubbing and cyanosis, negative. LABORATORY DATA: WBC 16.6, hemoglobin 14, hematocrit 42.3, and platelet count 153. Chemistry shows sodium 131, potassium 4.7, chloride 102, carbon dioxide 21, anion gap of 19, BUN 47, creatinine of 0.7. IMPRESSION: A 58-year-old morbidly obese male with past medical history significant for nonischemic cardiomyopathy, status post cardiac catheterization x3; history of atrial fibrillation now persistent status post failed transesophageal echocardiography cardioversion, status post failed radiofrequency ablation, nonischemic cardiomyopathy status post automatic implantable cardioverter defibrillator; history of peripheral arterial disease, history of acute limb ischemia, status post percutaneous transluminal coronary angioplasty of left lower extremity, history of deep venous thrombosis of right lower extremity catheter-based treatment, admitted with acute exacerbation of chronic obstructive pulmonary disease and acute bronchitis, being treated in the floor. Now, the patient is in transitional care unit for continuity of care. RECOMMENDATIONS: The patient has subtherapeutic INR of 1.77 so it is being bridged for Lovenox. Continue Lovenox. Continue Cardizem for heart rate control. Continue Coumadin 10 mg today, if his INR reaches 2 and above, we will discontinue Lovenox. Followup PT and INR tomorrow, possible discharge him in a day or two. Monitor and watch for low sodium. If sodium remains stable tomorrow, we will resume back Lasix. We will resume back 40 at 1400 from today. Followup electrolytes. We will follow with you. The patient is off Aldactone because of hyperkalemia. Thank you, Dr. Villagomez, for providing us the opportunity in taking care of the patient, Pete Moranhien. Tia Rajan MD
[2018-08-12 16:52] VITALS: TEMP 98; O2SAT 96
[2018-08-12] MEDS: Enoxaparin 120 mg Syringe SC SCH (17:23)
--- NOTE | 2018-08-12 19:25 | PN ---
DATE: 08/12/2018 SUBJECTIVE: The patient was seen and examined. I do agree with the note of the emergency medicine medical director. I was involved in the plan of care. The patient is getting physical therapy due to deconditioning and gait dysfunction. He is improving. The patient is currently on nebulizer treatment. He is on Carafate and Protonix for his GERD. He is on Vantin for his antibiotics. The patient is on lisinopril for his CHF secondary to a systolic dysfunction which is stable. He is going to continue with Amaryl, Levemir, and metformin for his diabetes. The patient has difficulty in sleeping, he is on trazodone for this. He is asking for increase in his Ativan and I advised him that he should not have an increase at this point. He is on Coumadin for his anticoagulation. He has restless leg syndrome and is being treated for this as well. The patient is morbidly obese with a BMI of 40. He says he does feel better since he has been getting physical therapy. He is on his ropinirole for his restless leg syndrome. He is on a heart-healthy diet. The patient has a INR that is subtherapeutic at 1.7, but it is increasing. His Coumadin dosage was increased. Axel Villagomez MD
[2018-08-13] MEDS: Pantoprazole 40 mg EC Tab PO SCH (05:35)
[2018-08-13] MEDS: Sucralfate 1 gm/10 ml Oral Susp UD PO SCH (05:35)
[2018-08-13] MEDS: Enoxaparin 120 mg Syringe SC SCH (05:36)
[2018-08-13 06:41] LABS: BASO # 0.03 K/mm3 (0.0-2.0); BASO % 0.2 % (0.0-3.0); EOS # 0.1 (0.0-0.7); EOS % 0.5 % (1.5-5.0); HEMOGLOBIN 14.2 g/dL (14.0-18.0); LYMPH # 1.2 (1.2-3.4); LYMPH % 6.6 % (22.0-35.0); MEAN CELL VOLUME 82.8 fl (80.0-105.0); MEAN CORPUSCULAR HEMOGLOBIN 27.4 pg (25.0-35.0); MEAN CORPUSCULAR HGB CONC 33.1 g/dl (31.0-37.0); MEAN PLATELET VOLUME 9.4 fl (7.0-11.0); MONO # 1.1 (0.1-0.6); MONO % 6.3 % (1.0-6.0); RBC 5.18 10^6/uL (3.5-6.1); RED CELL DISTRIBUTION WIDTH 17.7 % (11.5-14.5); WHITE BLOOD COUNT 17.5 10^3/uL (4.5-11.0)
[2018-08-13 06:42] LABS: INR 2.47; PROTHROMBIN TIME 27.9 SECONDS (9.4-12.5)
[2018-08-13 06:59] LABS: BLOOD UREA NITROGEN 47 mg/dL (7-21); CALCIUM 9.4 mg/dL (8.4-10.5); GFR NON-AFRICAN AMERICAN > 60
[2018-08-13] MEDS: Insulin Reg-HIGH-Coverage SC SCH (07:15)
[2018-08-13] MEDS: Ipratropium 0.02% Inhal Soln (0.5 mg/2.5 ml) UD IH SCH (07:29)
[2018-08-13] MEDS: Insulin Detemir 100 units/ml Vial (Levemir) SC SCH (07:29)
[2018-08-13] MEDS: Budesonide 0.5 mg/2 ml Inhal Susp UD IH SCH (07:30)
[2018-08-13] MEDS: Levalbuterol 0.63 MG/3 ML Inhal Soln UD IH SCH (07:30)
[2018-08-13] MEDS: Cefpodoxime (Vantin) 100 mg Tab PO SCH (11:21)
[2018-08-13 11:22] VITALS: BP 112/72; PULSE 70
--- NOTE | 2018-08-13 11:26 | CP.PCM.DIS ---
<Deonte Bland - Last Filed: 08/13/18 11:19> Provider - Provider Date of Admission: 08/07/18 16:11 Attending physician: Axel Villagomez MD Primary care physician: Axel Villagomez MD Consults: 08/07/18 17:28 Physician Consult Routine Comment: shortness of breath Consulting Provider: Tia Godinez Consulting Physician: Tia Godinez Reason for Consult: shortness of breath 08/07/18 17:29 Physician Consult Routine Comment: sob Consulting Provider: Tia Rajan Consulting Physician: Tia Rajan Reason for Consult: sob 08/07/18 23:01 Diabetic Education Referral Routine Comment: Physician Instructions: Reason For Exam: assess Inpatient DRIVER MANAGER Core Measures Referral Routine Comment: copd/deconditioning Physician Instructions: Reason For Exam: assess Transition In Care/Readmission Reduction Routine Comment: copd/deconditioning Physician Instructions: Reason For Exam: assess Time Spent in preparation of Discharge (in minutes): 50 Diagnosis - Discharge Diagnosis (1) Physical deconditioning Status: Acute Hospital Course - Lab Results Lab Results: Most Recent Lab Values WBC 17.5 10^3/uL (4.5-11.0) H 08/13/18 06:15 RBC 5.18 10^6/uL (3.5-6.1) 08/13/18 06:15 Hgb 14.2 g/dL (14.0-18.0) 08/13/18 06:15 Hct 42.9 % (42.0-52.0) 08/13/18 06:15 MCV 82.8 fl (80.0-105.0) 08/13/18 06:15 MCH 27.4 pg (25.0-35.0) 08/13/18 06:15 MCHC 33.1 g/dl (31.0-37.0) 08/13/18 06:15 RDW 17.7 % (11.5-14.5) H 08/13/18 06:15 Plt Count 155 10^3/uL (120.0-450.0) 08/13/18 06:15 MPV 9.4 fl (7.0-11.0) 08/13/18 06:15 Neut % (Auto) 86.4 % (50.0-68.0) H 08/13/18 06:15 Lymph % (Auto) 6.6 % (22.0-35.0) L 08/13/18 06:15 Pick[place] % (Auto) 6.3 % (1.0-6.0) H 08/13/18 06:15 Eos % (Auto) 0.5 % (1.5-5.0) L 08/13/18 06:15 Baso % (Auto) 0.2 % (0.0-3.0) 08/13/18 06:15 Lymph # (Auto) 1.2 (1.2-3.4) 08/13/18 06:15 Pickens # (Auto) 1.1 (0.1-0.6) H 08/13/18 06:15 Eos # (Auto) 0.1 (0.0-0.7) 08/13/18 06:15 Baso # (Auto) 0.03 K/mm3 (0.0-2.0) 08/13/18 06:15 Absolute Neuts (auto) 15.14 (1.4-6.5) H 08/13/18 06:15 Neutrophils % (Manual) 93 % (50.0-70.0) H 08/10/18 07:00 Lymphocytes % (Manual) 3 % (22.0-35.0) L 08/10/18 07:00 Monocytes % (Manual) 4 % (1.0-6.0) 08/10/18 07:00 Platelet Evaluation Normal (NORMAL) 08/10/18 07:00 PT 27.9 SECONDS (9.4-12.5) H 08/13/18 06:15 INR 2.47 08/13/18 06:15 APTT 34.0 Seconds (26.9-38.3) 08/12/18 07:50 Sodium 132 mmol/L (132-148) 08/13/18 06:15 Potassium 4.9 mmol/L (3.6-5.0) 08/13/18 06:15 Chloride 101 mmol/L (98-107) 08/13/18 06:15 Carbon Dioxide 21 mmol/L (21-33) 08/13/18 06:15 Anion Gap 16 (10-20) 08/13/18 06:15 BUN 47 mg/dL (7-21) H 08/13/18 06:15 Creatinine 1.2 mg/dl (0.8-1.5) 08/13/18 06:15 Est GFR ( Amer) > 60 08/13/18 06:15 Est GFR (Non-Af Amer) > 60 08/13/18 06:15 POC Glucose (mg/dL) 131 mg/dL (65-110) H 08/13/18 05:33 Random Glucose 114 mg/dL (70-110) H 08/13/18 06:15 Calcium 9.4 mg/dL (8.4-10.5) 08/13/18 06:15 Phosphorus 3.9 mg/dL (2.5-4.5) 08/09/18 05:55 Magnesium 2.3 mg/dL (1.7-2.2) H 08/09/18 05:55 Total Bilirubin 0.7 mg/dL (0.2-1.3) 08/09/18 05:55 AST 22 U/L (17-59) 08/09/18 05:55 ALT 38 U/L (7-56) 08/09/18 05:55 Alkaline Phosphatase 52 U/L (38-126) 08/09/18 05:55 Lactate Dehydrogenase 443 U/L (333-699) 08/10/18 07:00 Total Creatine Kinase < 20 U/L (35-230) L 08/10/18 07:00 Troponin I 0.04 ng/mL 08/10/18 07:00 Total Protein 6.7 g/dL (5.8-8.3) 08/09/18 05:55 Albumin 4.0 g/dL (3.0-4.8) 08/09/18 05:55 Globulin 2.7 gm/dL 08/09/18 05:55 Albumin/Globulin Ratio 1.5 (1.1-1.8) 08/09/18 05:55 - Hospital Course Hospital Course: Deonte Bland D.O. PGY-3, Internal Medicine Resident, Dr. Villagomez's Service, Discharge Summary 58-year-old male with a past medical history COPD on home oxygen at 2 L, heart failure with reduced ejection fraction of approximately 36% status post AICD, WESLY, CAD status post PCI, diabetes type 2, atrial fibrillation and previous DVT on Coumadin therapy who originally presented with SOB, now being in the transitional care unit for continued physical therapy.Patient participated with physical therapy during his time in the TCU. Patient was followed by cardiology and pulmonology. Patient had an episode of chest discomfort which was likely secondary to reflux and was started on Protonix and Carafate. He had some improvement in his symptoms with this. Patient was continued on nebulizers and then switched from IV to p.o. steroid therapy. Patient also was continued on montelukast, azithromycin, and ceftriaxone. Patient was then switched to p.o. Vantin and ceftriaxone was discontinued. For his heart failure he was continued on lisinopril. For his anxiety he did well on trazodone and lorazepam. For his chronic pain patient was continued on his home gabapentin and as needed oxycodone without much issues. His sugars were managed with Levemir 25 daily, metformin, Amaryl. He was also continued on his home Requip. Patient had some difficulty sleeping and we discussed sleep hygiene at depth. Patient also had an abrasion to the left groin/inner thigh area which was improving. Patient was seen and examined this morning ambulating up and down the halls. Patient feels like he is almost back at his baseline and is ready to go home. Discussed the case with case management. Patient states that he has all of his medications from before. We discussed the new medications and the medical reconciliation in general. New medications were sent [place] to [place] [facility] [place]. Discussed with pharmacist. Will make sure the patient gets to medications before he leaves. Patient requested Ativan prescription as this medicine he actually does not have at home anymore. Prescription was written and given to nursing staff. - Date & Time of H&P Date of H&P: 08/13/18 Time of H&P: 11:00 Discharge Exam - Head Exam Head Exam: ATRAUMATIC, NORMOCEPHALIC - Eye Exam Eye Exam: EOMI. absent: Scleral icterus - ENT Exam ENT Exam: Mucous Membranes Moist, Normal Oropharynx - Neck Exam Neck exam: Normal Inspection - Respiratory Exam Additional comments: improved air movement, no wheezing - Cardiovascular Exam Cardiovascular Exam: +S1, +S2. absent: Gallop, Rubs - GI/Abdominal Exam GI & Abdominal Exam: Normal Bowel Sounds, Soft. absent: Distended, Tenderness - Extremities Exam Extremities exam: abrasion of left knee, healing - Neurological Exam Neurological exam: Alert, Oriented x4 - Psychiatric Exam Psychiatric exam: Normal Affect, Normal Mood - Skin Skin Exam: left inner thigh/groin crease with 2 abrasions ~2cm the other ~1.5cm, clean, dry, no erythema, no bleeding, no drainage, nontender Discharge Plan - Discharge Medications Prescriptions: Furosemide [Lasix] 40 mg PO 0800,1400 #60 tab Sucralfate [Carafate Oral Susp] 1 gm PO 0630,1130,1630,2200 #1200 ml - Follow Up Plan Condition: GOOD Disposition: HOME/ ROUTINE Instructions: Preventing Falls in the Older Adult, COPD Including Emphysema (DC) Additional Instructions: 1. Follow-up with primary medical doctor within 1 week 2. Refer to medication reconciliation for medication regimen 3. Maintain physical activity 4. Follow-up with pulmonary and cardiology as indicated Referrals: Axel Villagomez MD [Primary Care Provider] - <Axel Villagomez - Last Filed: 08/13/18 14:53> Provider - Provider Date of Admission: 08/07/18 16:11 Attending physician: Axel Villagomez MD Primary care physician: Axel Villagomez MD Consults: 08/07/18 17:28 Physician Consult Routine Comment: shortness of breath Consulting Provider: Tia Godinez Consulting Physician: Tia Godinez Reason for Consult: shortness of breath 08/07/18 17:29 Physician Consult Routine Comment: sob Consulting Provider: Tia Rajan Consulting Physician: Tia Rajan Reason for Consult: sob 08/07/18 23:01 Diabetic Education Referral Routine Comment: Physician Instructions: Reason For Exam: assess Inpatient DRIVER MANAGER Core Measures Referral Routine Comment: copd/deconditioning Physician Instructions: Reason For Exam: assess Transition In Care/Readmission Reduction Routine Comment: copd/deconditioning Physician Instructions: Reason For Exam: assess Hospital Course - Lab Results Lab Results: Most Recent Lab Values WBC 17.5 10^3/uL (4.5-11.0) H 08/13/18 06:15 RBC 5.18 10^6/uL (3.5-6.1) 08/13/18 06:15 Hgb 14.2 g/dL (14.0-18.0) 08/13/18 06:15 Hct 42.9 % (42.0-52.0) 08/13/18 06:15 MCV 82.8 fl (80.0-105.0) 08/13/18 06:15 MCH 27.4 pg (25.0-35.0) 08/13/18 06:15 MCHC 33.1 g/dl (31.0-37.0) 08/13/18 06:15 RDW 17.7 % (11.5-14.5) H 08/13/18 06:15 Plt Count 155 10^3/uL (120.0-450.0) 08/13/18 06:15 MPV 9.4 fl (7.0-11.0) 08/13/18 06:15 Neut % (Auto) 86.4 % (50.0-68.0) H 08/13/18 06:15 Lymph % (Auto) 6.6 % (22.0-35.0) L 08/13/18 06:15 [place] % (Auto) 6.3 % (1.0-6.0) H 08/13/18 06:15 Eos % (Auto) 0.5 % (1.5-5.0) L 08/13/18 06:15 Baso % (Auto) 0.2 % (0.0-3.0) 08/13/18 06:15 Lymph # (Auto) 1.2 (1.2-3.4) 08/13/18 06:15 [place] # (Auto) 1.1 (0.1-0.6) H 08/13/18 06:15 Eos # (Auto) 0.1 (0.0-0.7) 08/13/18 06:15 Baso # (Auto) 0.03 K/mm3 (0.0-2.0) 08/13/18 06:15 Absolute Neuts (auto) 15.14 (1.4-6.5) H 08/13/18 06:15 Neutrophils % (Manual) 93 % (50.0-70.0) H 08/10/18 07:00 Lymphocytes % (Manual) 3 % (22.0-35.0) L 08/10/18 07:00 Monocytes % (Manual) 4 % (1.0-6.0) 08/10/18 07:00 Platelet Evaluation Normal (NORMAL) 08/10/18 07:00 PT 27.9 SECONDS (9.4-12.5) H 08/13/18 06:15 INR 2.47 08/13/18 06:15 APTT 34.0 Seconds (26.9-38.3) 08/12/18 07:50 Sodium 132 mmol/L (132-148) 08/13/18 06:15 Potassium 4.9 mmol/L (3.6-5.0) 08/13/18 06:15 Chloride 101 mmol/L (98-107) 08/13/18 06:15 Carbon Dioxide 21 mmol/L (21-33) 08/13/18 06:15 Anion Gap 16 (10-20) 08/13/18 06:15 BUN 47 mg/dL (7-21) H 08/13/18 06:15 Creatinine 1.2 mg/dl (0.8-1.5) 08/13/18 06:15 Est GFR ( Amer) > 60 08/13/18 06:15 Est GFR (Non-Af Amer) > 60 08/13/18 06:15 POC Glucose (mg/dL) 131 mg/dL (65-110) H 08/13/18 05:33 Random Glucose 114 mg/dL (70-110) H 08/13/18 06:15 Calcium 9.4 mg/dL (8.4-10.5) 08/13/18 06:15 Phosphorus 3.9 mg/dL (2.5-4.5) 08/09/18 05:55 Magnesium 2.3 mg/dL (1.7-2.2) H 08/09/18 05:55 Total Bilirubin 0.7 mg/dL (0.2-1.3) 08/09/18 05:55 AST 22 U/L (17-59) 08/09/18 05:55 ALT 38 U/L (7-56) 08/09/18 05:55 Alkaline Phosphatase 52 U/L (38-126) 08/09/18 05:55 Lactate Dehydrogenase 443 U/L (333-699) 08/10/18 07:00 Total Creatine Kinase < 20 U/L (35-230) L 08/10/18 07:00 Troponin I 0.04 ng/mL 08/10/18 07:00 Total Protein 6.7 g/dL (5.8-8.3) 08/09/18 05:55 Albumin 4.0 g/dL (3.0-4.8) 08/09/18 05:55 Globulin 2.7 gm/dL 08/09/18 05:55 Albumin/Globulin Ratio 1.5 (1.1-1.8) 08/09/18 05:55 - Hospital Course Hospital Course: Patient was seen and examined by me. I have reviewed the note of the medical records coder and have gone over the plan of care. I agree with the note. I have reviewed the medications and the last labs.
[2018-08-13] MEDS: Fluticasone Nasal 50 mcg/Spray NS SCH (11:32)
[2018-08-13] MEDS: Bacitracin 500 Units/gm Oint Foilpak UD TOP SCH (11:32)
--- NOTE | 2018-08-13 13:00 | PN ---
DATE: 08/13/2018 REFERRING PHYSICIAN: Dr. Villagomez. SUBJECTIVE: The patient is seen in room. No acute distress. No overnight events reported. Reports feeling well this morning. States he is scheduled for discharge home today. No headache, rhinitis, chest pain, abdominal pain, nausea, vomiting, diarrhea, leg pain or leg swelling reported. Reports some improvement in cough. Denies any shortness of breath. OBJECTIVE: GENERAL: No acute distress. VITAL SIGNS: Blood pressure 113/77, pulse 70, temperature 97.7, oxygen saturation 96% on room air. HEENT: Moist mucous membranes. Crowded airway. NECK: Supple. No JVD. LUNGS: Fair airflow bilaterally. CARDIOVASCULAR: S1, S2. ABDOMEN: Soft, nontender. No distention. No organomegaly. EXTREMITIES: No bilateral lower extremity edema. NEUROLOGIC: Awake, alert, verbal. Following commands. MEDICATIONS: Reviewed. Tylenol 650 every 4 hours p.r.n. mild pain, Maalox 10 mL every 6 hours p.r.n., DuoNeb 3 mL inhalation every 2 hours p.r.n., bacitracin topically daily to affected area, Tessalon Perles 200 mg 3 times a day, Pulmicort 0.5 mg inhalation every 8 hours, Debrox eardrops twice a day, Vantin 100 mg every 12 hours, Cardizem 30 mg twice a day, Benadryl 25 mg at bedtime, Flonase nasal spray twice a day, folic acid 1 mg daily, Lasix 40 mg twice a day, Neurontin 300 mg twice a day, glimepiride 4 mg daily, Levemir 22 units subcu before meals, Levemir 22 units subcu at bedtime, Humulin R sliding scale before meals and at bedtime, Atrovent 0.5 mg inhalation three times a day, Xopenex 0.63 mg inhalation 3 times a day, lisinopril 2.5. mg daily, Ativan 1 mg twice a day p.r.n., metformin 1000 mg twice a day, Singulair 10 mg at bedtime., Percocet 10/325 mg one tab every 12 hours p.r.n., Protonix 40 mg daily, prednisone 40 mg daily, Daliresp 250 mcg daily, ReQuip 0.5 mg at bedtime, Carafate 1 g four times a day, trazodone 150 mg at bedtime, Coumadin 5 mg daily. LABORATORY DATA: Reviewed. WBC 17.5, RBC 5.18, hemoglobin 14.2, hematocrit 42.9, platelets 155. PT 27.9, INR 2.47. Sodium 132, potassium 4.9, chloride 101, carbon dioxide 21, anion gap 16, BUN 47, creatinine 1.2, GFR greater than 60, random glucose 114, calcium 9.4. IMPRESSION AND PLAN: Chronic obstructive lung disease, congestive heart failure, anemia, cardiomyopathy, coronary artery disease, history of coronary stent, sleep apnea syndrome, diabetes mellitus, atrial fibrillation, peripheral neuropathy, anxiety disorder, gastroesophageal reflux disease, gastritis. Pulmonary point of view, continue inhaled bronchodilators. Recommend tapering the patient's steroid over the next 7 to 8 days. Head of bed elevated at 45 degrees. Gastric prophylaxis. Gastroesophageal reflux disease precautions. Currently on anticoagulation therapy. Fall precautions. Discussed with the patient regarding followup as outpatient for treatment of chronic lung disease. The patient verbalized understanding. The patient was seen and examined with Dr. Godinez. Discussed assessment and plan as described above. The patient was seen and examined by Trudy Singh, nurse practitioner. Discussed assessment and plan as described above. Thank you for this consult. We will follow with you. Trudy Singh APN Tai Godinez MD
--- NOTE | 2018-08-13 16:33 | PN ---
DATE: 08/13/2018 REASON FOR CONSULTATION AND FOLLOWUP: Cardiac evaluation, shortness of breath, atrial fibrillation, status post CORA cardioversion, status post failed radiofrequency ablation, admitted with acute bronchitis. Now, the patient is in Transitional Care Unit to continue with care. SUBJECTIVE: The patient denies any chest pain, shortness of breath, or any palpitations. PHYSICAL EXAMINATION: GENERAL: Not in apparent distress. VITAL SIGNS: Temperature afebrile, heart rate 91, blood pressure 113/77. HEENT: PERRLA. Extraocular muscles intact. NECK: Supple. No carotid bruits. No thyromegaly. CHEST: Clear to auscultation. HEART: S1 and S2, regular. ABDOMEN: Soft. EXTREMITIES: Clubbing, cyanosis negative. LABORATORY DATA: Blood workup as follows. WBC 17.5, hemoglobin 14.2, hematocrit 42.9, platelet count 155. Chemistries show sodium 130, potassium 4.9, chloride 105, carbon dioxide 21, anion gap of 16, BUN 14 and creatinine 1.2. INR 2.47. IMPRESSION: A 58-year-old morbidly obese male with past medical history significant for nonischemic cardiomyopathy, status post cardiac catheterization x3; history of atrial fibrillation now persistent status post failed transesophageal echocardiography cardioversion, status post failed radiofrequency ablation, nonischemic cardiomyopathy status post automatic implantable cardioverter defibrillator; history of peripheral arterial disease, history of acute limb ischemia, status post percutaneous transluminal coronary angioplasty of lower extremity, history of deep venous thrombosis of right lower extremity, history of catheter-based treatment, admitted with acute exacerbation of chronic obstructive pulmonary disease. The patient is treated initially on the medical floor, now the patient is in continuity of care at the transitional care unit. Denies any shortness of breath or any palpitations. The patient . Troponin remains negative. RECOMMENDATIONS: Discontinue Lovenox. INR is therapeutic. Continue Coumadin, we will cut down the dose to 5 mg from today to prevent overshoot, because the patient was on 10 mg, 5 from today and follow up PT/INR. Possible discharge in a day or two is stable. In addition, we will continue Cardizem 30 p.o. b.i.d. Continue psych medication, continue metformin, continue Lasix p.o. Possible discharge in a day or two. We will repeat INR today. Thank you Dr. Villagomez, for providing us the opportunity in taking care of the patient Pete Johnson. Tia Rajan MD
--- NOTE | 2018-08-14 02:15 | DS ---
HISTORY OF PRESENT ILLNESS: The patient was seen and examined. I do agree with the note of the medical sales consultant and I was involved in the plan of care. The patient was getting treatment for his COPD. He is on nebulizer treatment with steroids. He is currently feeling better. He is able to ambulate fairly well. The patient finish his Vantin for his antibiotics. He has heart failure secondary to systolic dysfunction that is stable. He has obstructive sleep apnea. He has coronary artery disease and is getting aspirin. He is receiving diabetes medications with his insulin for his diabetes type 2. He has atrial fibrillation, he is on Coumadin. The patient is currently comfortable. He is going to be discharged home with follow up in the office in 1 to 2 weeks. Axel Villagomez MD
== END 2018-08-13 12:07 | disposition home or self-care (01) | DRG 92 ==
LOC: TRCU 16:11
PROVIDERS: ADMIT Internal Medicine Nephrology; ATTEND Internal Medicine Nephrology
PROC: F07Z9FZ Gait Training/Functional Ambulation Treatment using Assistive, Adaptive, Supportive or Protective Equipment (ICD-10-PCS; principal; 2018-08-09)
PROC: F07Z8ZZ Transfer Training Treatment (ICD-10-PCS; 2018-08-09)
PROC: F07L6YZ Therapeutic Exercise Treatment of Musculoskeletal System - Lower Back / Lower Extremity using Other Equipment (ICD-10-PCS; 2018-08-09)
PROC: F08Z4FZ Home Management Treatment using Assistive, Adaptive, Supportive or Protective Equipment (ICD-10-PCS; 2018-08-10)
DX: R26.9 Unspecified abnormalities of gait and mobility (principal); J44.1 Chronic obstructive pulmonary disease with (acute) exacerbation; I50.22 Chronic systolic (congestive) heart failure; I42.9 Cardiomyopathy, unspecified; Z68.41 Body mass index [BMI] 40.0-44.9, adult; J44.0 Chronic obstructive pulmonary disease with (acute) lower respiratory infection; J20.9 Acute bronchitis, unspecified; I11.0 Hypertensive heart disease with heart failure; D64.9 Anemia, unspecified; E11.42 Type 2 diabetes mellitus with diabetic polyneuropathy; E11.51 Type 2 diabetes mellitus with diabetic peripheral angiopathy without gangrene; I25.10 Atherosclerotic heart disease of native coronary artery without angina pectoris; G25.81 Restless legs syndrome; F32.9 Major depressive disorder, single episode, unspecified; E78.5 Hyperlipidemia, unspecified; F41.9 Anxiety disorder, unspecified; I48.0 Paroxysmal atrial fibrillation; I48.2 Chronic atrial fibrillation; G47.33 Obstructive sleep apnea (adult) (pediatric); E66.01 Morbid (severe) obesity due to excess calories; K21.9 Gastro-esophageal reflux disease without esophagitis; K29.70 Gastritis, unspecified, without bleeding; G89.29 Other chronic pain; Z96.649 Presence of unspecified artificial hip joint; Z79.01 Long term (current) use of anticoagulants; Z79.4 Long term (current) use of insulin; Z79.82 Long term (current) use of aspirin; Z86.711 Personal history of pulmonary embolism; Z86.718 Personal history of other venous thrombosis and embolism; Z87.891 Personal history of nicotine dependence; Z95.810 Presence of automatic (implantable) cardiac defibrillator; Z99.81 Dependence on supplemental oxygen; Z95.1 Presence of aortocoronary bypass graft; Z95.5 Presence of coronary angioplasty implant and graft; Z98.84 Bariatric surgery status